=== PATIENT | male | born 1965 | race Caucasian/White ===

== ENCOUNTER 2018-09-26 12:32 | Outpatient (CLI) | payer MEDICARE, SELFPAY ==
[2018-09-26 13:09] LABS: Abs Immature Grans 0.05 k/cumm (0.0-0.09); Absolute Basophil Count 0.05 k/cumm (0.0-0.2); Absolute Eosinophil Count 0.26 k/cumm (0.0-0.7); Absolute Lymphocyte Count 1.08 k/cumm (1.2-3.4); Absolute Monocyte Count 0.95 k/cumm (0.11-0.7); Absolute Neutrophil Count 5.43 k/cumm (1.2-6.7); Basophils % 0.6; Eosinophils % 3.3; HCT 48.7 % (40.0-50.0); HGB 16.4 g/dL (13.5-17.5); Immature Grans % 0.6; Lymphocytes % 13.8; Mean Corp. HGB Concentration 33.7 g/dL (32.0-36.0); Mean Corpuscular Hemoglobin 30.9 pg (27.0-33.0); Mean Corpuscular Volume 91.9 fL (80-95); Mean Platelet Volume 10.6 fL (8.0-11.0); Monocytes % 12.1; Neutrophils % 69.6; Platelet Count 169 x1000/uL (130-400); RBC Distribution Width 13.5 % (11.8-14.1); White Blood Cell Count 7.82 k/cumm (4.4-10.8)
[2018-09-26 14:21] LABS: ALT 26 U/L (12-78); AST 16 U/L (15-37); Albumin 3.8 g/dL (3.4-5.0); Alkaline Phosphatase 95 U/L (46-116); Anion Gap 8.1 mmol/L (3-11); BUN 15 mg/dL (7-18); Bilirubin, Total 0.2 mg/dL (0.2-1.0); CO2 27.9 mmol/L (21.0-32.0); CREATININE 1.24 mg/dL (0.70-1.30); Calcium 9.1 mg/dL (8.5-10.1); Chloride 103 mmol/L (98-107); Cholesterol 213 mg/dL (50-200); Glucose 99 mg/dL (70-100); HDL Cholesterol 54 mg/dL (40-60); LDL CHOLESTEROL 144 mg/dL (<100); Potassium 5.5 mmol/L (3.5-5.1); Sodium 139 mmol/L (136-145); Total Protein 6.9 g/dL (6.4-8.2); Triglyceride 109 mg/dL (30-150)
== END 2018-09-26 12:52 ==
PROVIDERS: PCP Nurse Practitioner Family; Visit Provider Nurse Practitioner Family
DX: F32.1 Major depressive disorder, single episode, moderate (principal); Z79.899 Other long term (current) drug therapy; R53.81 Other malaise; R53.83 Other fatigue
CPT/HCPCS: 36415; 80053; 80061; 83721; 84443; 85025

== ENCOUNTER → 2018-09-27 11:56 | Outpatient (BNVA) | payer MEDICARE, SELFPAY | PROVIDERS: PCP Nurse Practitioner Family; Visit Provider Nurse Practitioner Family | DX: I42.9 Cardiomyopathy, unspecified (principal); Z45.018 Encounter for adjustment and management of other part of cardiac pacemaker; Z87.891 Personal history of nicotine dependence; J44.9 Chronic obstructive pulmonary disease, unspecified | CPT/HCPCS: 93289; 99214 ==

== ENCOUNTER 2018-10-31 21:27 | Outpatient (REF) | payer MEDICARE, SELFPAY ==
[2018-10-31 22:18] LABS: CREATININE 1.16 mg/dL (0.70-1.30)
== END 2018-10-31 21:47 ==
LOC: NCHCN 21:27
PROVIDERS: PCP Nurse Practitioner; Visit Provider Nurse Practitioner Family
DX: R69 Illness, unspecified (principal); Z13.89 Encounter for screening for other disorder
CPT/HCPCS: 82565

== ENCOUNTER 2018-11-02 00:40 | Outpatient (CLI) | payer MEDICARE, SELFPAY ==
--- NOTE | 2018-11-02 13:12 | DI.CT_ITS ---
SYMPTOM/DIAGNOSIS: COUGH R05 CHEST CT: CT scan of the chest was performed following the uneventful administration of intravenous contrast material. Comparison chest xray is 11/08/15. There is mild atherosclerosis of the thoracic aorta. No aneurysmal dilatation or dissection is seen. Heart size appears within normal limits. No significant pericardial effusion is seen. Pacing wires are in place. Coronary artery calcifications are present. No significant thoracic adenopathy is appreciated. There is no pleural effusion or pneumothorax present. Moderately severe emphysematous changes are seen in the lungs, particularly the apices. There is scarring seen in the lung bases. There is an area of consolidation in the left lingula. No pulmonary nodules are appreciated. Tracheobronchial tree is unremarkable. No acute abnormality is seen in the upper abdomen. Degenerative changes are seen in the spine. IMPRESSION: 1. Small area of consolidation involving the left lingula. This may represent atelectasis, scarring or pneumonia. 2. Moderately severe emphysematous changes in the lungs.
[2018-11-02] MEDS: Omnipaque 350 MG/ML 100 ML BTL IV (13:28)
== END 2018-11-02 01:00 ==
PROVIDERS: PCP Nurse Practitioner; Visit Provider Nurse Practitioner
DX: R05 Cough (principal); J18.9 Pneumonia, unspecified organism; J43.9 Emphysema, unspecified
CPT/HCPCS: 71260; J3490

== ENCOUNTER 2018-11-26 14:41 | Emergency (ER) | payer MEDICARE, SELFPAY ==
[2018-11-26] VITALS (16 sets, daily range): BP systolic 116–152; BP diastolic 68–88; PULSE 80–92; RESP 16–36; TEMP 36.7–37.2; O2SAT 91–95
[2018-11-26] MEDS: Normal Saline Flush 10 ML SYR IVP ×2 (15:28→18:05)
[2018-11-26] MEDS: Albuterol/Ipratropium 3 ML UPD VIAL (15:29)
[2018-11-26 15:53] LABS: Abs Immature Grans 0.03 k/cumm (0.0-0.09); Absolute Basophil Count 0.04 k/cumm (0.0-0.2); Absolute Eosinophil Count 0.15 k/cumm (0.0-0.7); Absolute Lymphocyte Count 1.03 k/cumm (1.2-3.4); Absolute Monocyte Count 0.71 k/cumm (0.11-0.7); Absolute Neutrophil Count 4.06 k/cumm (1.2-6.7); Basophils % 0.7; Eosinophils % 2.5; HCT 47.7 % (40.0-50.0); HGB 16.3 g/dL (13.5-17.5); Immature Grans % 0.5; Lymphocytes % 17.1; Mean Corp. HGB Concentration 34.2 g/dL (32.0-36.0); Mean Corpuscular Hemoglobin 31.5 pg (27.0-33.0); Mean Corpuscular Volume 92.1 fL (80-95); Monocytes % 11.8; Neutrophils % 67.4; Platelet Count 145 x1000/uL (130-400); RBC 5.18 m/cumm (4.50-6.00); RBC Distribution Width 13.7 % (11.8-14.1); White Blood Cell Count 6.02 k/cumm (4.4-10.8)
[2018-11-26 16:07] LABS: ALT 33 U/L (12-78); AST 21 U/L (15-37); Albumin 3.8 g/dL (3.4-5.0); Alkaline Phosphatase 83 U/L (46-116); Anion Gap 7.1 mmol/L (3-11); BUN 14 mg/dL (7-18); Bilirubin, Total 0.2 mg/dL (0.2-1.0); CO2 28.9 mmol/L (21.0-32.0); CREATININE 1.23 mg/dL (0.70-1.30); Calcium 9.3 mg/dL (8.5-10.1); Chloride 102 mmol/L (98-107); Glucose 97 mg/dL (70-100); Potassium 4.8 mmol/L (3.5-5.1); Sodium 138 mmol/L (136-145); Total Protein 7.5 g/dL (6.4-8.2)
[2018-11-26 16:09] LABS: Troponin I < 0.02 ng/mL (0.00-0.06)
[2018-11-26 16:23] LABS: D-Dimer 318 ng/mlFEU (<500)
--- NOTE | 2018-11-26 16:27 | DI.CT_ITS ---
SYMPTOM/DIAGNOSIS: RESISTANT CRACKLES, SOB, CHEST PAIN, ? PE PE CHEST CT: CT angiography was performed with multi slice acquisition and multi planar and 3D reconstruction. Comparison is made with 11/02/18. The aorta and pulmonary arteries are well opacified with IV contrast and no pulmonary artery filling defects are seen. The lungs are clear with the exception of a small focus of atelectasis in the lingula, unchanged. A pacemaker is again noted. The heart size appears normal. The visualized portions of the upper abdomen are unremarkable. IMPRESSION: No evidence of pulmonary emboli or other acute abnormality. Stable atelectasis of the lingula.
[2018-11-26] MEDS: Omnipaque 350 MG/ML 100 ML BTL IJ (16:43)
--- NOTE | 2018-11-26 17:21 | DI.VRAD_ITS ---
EXAM: CT Angiography Chest With Contrast EXAM DATE/TIME: 11/26/2018 4:30 PM CLINICAL HISTORY: 52 years old, male; Signs and symptoms; Other: Resistant crackles 4 weeks SOB; Prior surgery; Surgery date: 6+ months TECHNIQUE: Axial computed tomographic angiography images of the chest with intravenous contrast using CT angiography protocol. All CT scans at this facility use at least one of these dose optimization techniques: automated exposure control; mA and/or kV adjustment per patient size (includes targeted exams where dose is matched to clinical indication); or iterative reconstruction. Coronal and sagittal reformatted images were created and reviewed. 3D reconstructed images were created and reviewed. CONTRAST: 100 ml of omnipaque administered intravenously. COMPARISON: CT Thorax^CHEST W ROUTINE (Adult) 11/02/2018 12:59 PM FINDINGS: No evidence of pulmonary embolism. There is emphysema with bullous changes in the apices. There is a stable focus of consolidation in the lingula. No pleural effusion or pneumothorax. Normal thoracic aorta. A pacemaker is present. The visualized abdominal structures are unremarkable. No fracture. IMPRESSION: 1. No evidence of pulmonary embolism. 2. Stable consolidation in the lingula. Dictated and Authenticated by: Raoul Iglesias MD. Ordering:DAMIAN Villeda MD
--- NOTE | 2018-11-26 17:31 | ED.GENADUL_ITS ---
Discharge Plan Disposition Patient Disposition: HOME Condition: Good Discharge Details Chief Complaint: SOB Clinical Impression: Community acquired pneumonia Primary Care Provider: Fátima Thomas ED Provider: Ronal Recinos Home Meds and New Rx's Prescriptions: New Combivent Respimat 20-100 mcg/actuation mist 1 puff IH Q6H Qty: 4 RF: 0 azithromycin 250 mg tablet See Rx Instructions .ROUTE .COMPLEX Qty: 6 RF: 0 amoxicillin-pot clavulanate 875-125 mg tablet 1 tab PO BID Qty: 20 RF: 0 prednisone 50 MG tablet 50 mg PO DAILY Qty: 5 RF: 0 No Action furosemide 20 mg tablet 20 mg PO .COMPLEX Qty: 0 RF: 1 Advair Diskus 1 EACH blister with device 1 puff Inhalation BID RF: 0 clonazepam [Klonopin] 0.5 MG tablet 1 mg PO PRN RF: 0 buspirone 7.5 MG tablet 7.5 mg PO RF: 0 prazosin 2 MG capsule 1 mg PO DAILY RF: 0 bupropion HCl [Wellbutrin XL] 300 MG tablet extended release 24 hr 300 mg PO DAILY RF: 0 hydrocodone-acetaminophen [Vicodin] 1 EACH tablet 1 ea PO QID RF: 0 ProAir HFA 8.5 GM HFA aerosol inhaler 1 - 2 puff Inhalation Q4H PRN RF: 0 Combivent Respimat 4 GM mist 4 gm Inhalation Q4H PRN Qty: 1 RF: 5 nitroglycerin 0.4 MG tablet, sublingual 0.4 mg Sublingual one every 5 mins. x3 Qty: 30 RF: 3 lisinopril 10 MG tablet 10 mg PO DAILY Qty: 90 RF: 3 Metoprolol Succinate 25 MG TAB.ER.24H 25 mg PO DAILY Qty: 90 RF: 3 spironolactone 25 mg tablet 12.5 mg PO DAILY Qty: 90 RF: 4 quetiapine [Seroquel] 300 mg tablet 800 mg PO DAILY RF: 0 Discharge Instructions Instructions: Community Acquired Pneumonia (ED) Additional Instructions: Please take the antibiotic as directed. Please take your inhaler as directed. Please take the steroid as directed. If you notice any worsening of your symptoms, or any new symptoms such as vomiting, diarrhea, fever, chills, shortness of breath, chest pain, numbness, weakness, or fainting , please return immediately to the emergency department for reevaluation. Please follow up with your primary care provider as soon as possible for reassessment and reevaluation. As always, it was a pleasure participating in your medical care today. Referrals: Fátima Thomas [Primary Care Provider] - Discharge Data Discharge Date/Time-TO BE ENTERED AT DEPARTURE: 11/26/18 19:13 Medical Decision Making This is a 52-year-old male with a past medical history of COPD, pacemaker for cardiomyopathy, and tobacco abuse, who presents today for evaluation of persistent cough for the last 2-3 weeks. He had a course of antibiotics for 7 days during the initial onset of his symptoms, he has been without antibiotics for over a week. Unfortunately his symptoms have persisted and not improved. No significant worsening. He is also run out of his Combivent inhaler, and he feels this may be contributing to it. His cough is productive with clear sputum. He has no severe pleuritic chest pain or exertional chest pain. Physical exam demonstrates notable crackles in the left upper lung chand. He was on doxycycline for 7 days as confirmed by his pharmacy. Differential includes persistent pneumonia, versus much less likely PE, aortic dissection, or cardiac disease. CT angiogram was ordered and demonstrates notable bleb in the left upper lung, however this is consistent with prior CT imaging. No evidence of PE, and stable consolidation in the lingula. No improvement from prior CT which he had on his initial symptom onset. Laboratory workup demonstrates no significant elevated white count, no bandemia, normal electrolytes normal renal function negative troponin. EKG shows no acute abnormalities or changes. Patient's initial oxygen status was normal, in the mid 90s, he is currently 95% on room air, ambulatory pulse ox demonstrated no hypoxemia or tachycardia. Lowest pulse ox got down to 94 with notable ambulation. I did reassess the patient, he states that he feels very good and would like to go home, and on his clinical picture I see no indication at this time for admission. With the persistent pneumonia, I feel he would benefit from broadened antibiotic coverage, but I do not think he requires IV antibiotics at this time or admission. With his history of COPD, his current steroid use, we will avoid Levaquin. We will give Augmentin with azithromycin for treatment of community-acquired pneumonia. Patient will be discharged home with close follow-up with his primary care provider. We discussed red flags which return. I have extensively reviewed the treatment plan and discharge instructions with the patient. I have addressed all patient concerns at this time. The patient was made aware of what symptoms to monitor for that would warrant a return to the emergency department. Discussed the plan with the patient, they demonstrate verbal understanding and agreement with our assessment and plan at this time. EKG 14: 55 Rate 90, AR 142, QTc 440, QRS 120, ventricular pacing with good capture, no significant ST abnormalities. No significant changes from prior EKGs. COMPARISON: CT Thorax^CHEST W ROUTINE (Adult) 11/02/2018 12:59 PM FINDINGS: No evidence of pulmonary embolism. There is emphysema with bullous changes in the apices. There is a stable focus of consolidation in the lingula. No pleural effusion or pneumothorax. Normal thoracic aorta. A pacemaker is present. The visualized abdominal structures are unremarkable. No fracture. IMPRESSION: 1. No evidence of pulmonary embolism. 2. Stable consolidation in the lingula. Dictated and Authenticated by: Raoul Iglesias MD. HPI General Date/Time Provider Initiated Documentation: 11/26/18 15:25 . HPI Narrative: This is a 52-year-old male with past medical history of severe COPD, pacemaker, negative cardiac catheterization 5 years ago, tobacco use which he quit over a year ago. He presents today for evaluation of cough and shortness of breath. Patient states that 2-3 weeks ago he was seen and assessed by his PCP at which time they did a CT scan which showed infiltrate, as well as a large bleb, but no other significant abnormalities. He was started on antibiotic of which name he does not recall, and took that as directed. He took that for 7 days, and had no improvement of his symptoms. He continues to cough and has some clear sputum. He denies any fevers or chills. Last night he did have one small episode of chest pain while he was sitting. It was nonexertional. No radiation to the neck or arms. It was nonpleuritic. It abated on its own. He currently has no symptoms of chest pain. With discontinuation of cough, he was concerned that he was talking better and came in for further evaluation. Patient also does admit that he ran out of his Combivent within the last 2 days, and he feels that this is also not been helping his clinical scenario. Patient did have a cardiac catheterization 5 years ago and it showed no significant lesions at that time. He did see his [facility] [facility] operator within the last month and a half, and was discharged after benign interrogation. Patient denies any other past medical history. He denies any history of ischemic cardiac disease. He has no other complaints at this time. Denies PE risk factors such as recent long car rides, immobilization, recent surgery, prior history of DVT or PE, family history of PE or DVT, morbid obesity, exogenous estrogen and smoking, hemoptysis, history of cancer. Related Data Home Medications Medication Instructions Recorded Confirmed bupropion HCl [Wellbutrin Xl] 300 mg PO DAILY tab-cap 03/06/15 11/26/18 buspirone 7.5 mg PO 03/06/15 09/27/18 clonazepam [Klonopin] 1 mg PO PRN tab-cap 03/06/15 11/26/18 fluticasone-salmeterol [Advair 1 puff INHALATION BID disk 03/06/15 11/26/18 250/50 Diskus] hydrocodone-acetaminophen [Vicodin 1 ea PO QID 03/06/15 11/26/18 5-300 Mg Tablet] prazosin 1 mg PO DAILY tab-cap 03/06/15 11/26/18 albuterol sulfate [Proair Hfa] 1 - 2 puff INHALATION Q4H PRN 09/27/15 11/26/18 inhaler ipratropium-albuterol [Combivent 4 gm INHALATION Q4H PRN #1 inhaler 12/19/15 11/26/18 Respimat Inhaler] nitroglycerin 0.4 mg SUBLINGUAL one every 5 07/27/17 11/26/18 mins. x3 #30 tab-cap lisinopril 10 mg PO DAILY #90 tab-cap 11/24/17 11/26/18 spironolactone 25 mg tablet 12.5 mg PO DAILY #90 tab-cap 09/20/18 11/26/18 furosemide 20 mg tablet 20 mg PO .COMPLEX #0 tab 09/27/18 11/26/18 quetiapine 300 mg tablet 800 mg PO DAILY tab-cap 09/27/18 11/26/18 amoxicillin-pot clavulanate 1 tab PO BID #20 tab 11/26/18 azithromycin See Rx Instructions .ROUTE 11/26/18 .COMPLEX #6 tab ipratropium-albuterol [Combivent 1 puff IH Q6H #4 gm 11/26/18 Respimat] prednisone 50 mg PO DAILY #5 tab 11/26/18 Previous Rx's Medication Instructions Recorded nitroglycerin 0.4 mg SUBLINGUAL one every 5 07/27/17 mins. x3 #30 tab-cap lisinopril 10 mg PO DAILY #90 tab-cap 11/24/17 spironolactone 25 mg tablet 12.5 mg PO DAILY #90 tab-cap 09/20/18 furosemide 20 mg tablet 20 mg PO .COMPLEX #0 tab 09/27/18 amoxicillin-pot clavulanate 1 tab PO BID #20 tab 11/26/18 azithromycin See Rx Instructions .ROUTE 11/26/18 .COMPLEX #6 tab ipratropium-albuterol [Combivent 1 puff IH Q6H #4 gm 11/26/18 Respimat] prednisone 50 mg PO DAILY #5 tab 11/26/18 Allergies Allergy/AdvReac Type Severity Reaction Status Date / Time citalopram Allergy Unverified 11/26/18 17:05 oxycodone HCl [From Percocet] AdvReac Addiction Unverified 11/26/18 17:05 General Stated Complaint: SOB MOLLY: 3 Review of Systems Review of Systems All systems reviewed & are unremarkable except as noted in HPI and below PFSH Social History Smoking/Tobacco Use Status: Former Tobacco Use Exam Narrative Exam Narrative: 1.Const: Well-nourished, Well-developed, appearing stated age 2.Eyes: PERRL, no conjunctival injection, and symmetrical lids. 3.ENT: Atraumatic external nose and ears. Moist MM. Neck: Symmetric, trachea midline, No thyromegaly. 4.CVS: +S1/S2, No murmurs or gallops. Peripheral pulses 2+ and equal in all extremities. Brisk capillary refill in all extremities. 5.RESP: The patient's lungs demonstrate notable crackles in the left upper lung chand. No wheezes, no significant rhonchi. No reduced breath sounds. 6.GI: Soft, Nontender/Nondistended, No hepatosplenomegaly. No guarding or rebound. 7.MSK: Normocephalic/Atraumatic, Extremities w/o deformity or ttp No cyanosis or clubbing, Normal movement of all extremities 8.Skin: Warm, Dry. No rashes or lesions. 9.Neuro: metal sprayer II-XII grossly intact. Sensation grossly intact, no focal neurologic deficits. 10.Psych: (AAO) x3. Appropriate mood and affect Course Vital Signs Respiratory Rate 20 11/26/18 14:45 Temperature 37.2 C 11/26/18 15:20 Temperature Source Temporal Artery Scan 11/26/18 15:20 Pulse 80 11/26/18 16:16 Pulse 86 11/26/18 15:31 Respiratory Rate 36 H 11/26/18 15:40 Respiratory Effort 11/26/18 14:47 Blood Pressure 124/73 11/26/18 16:16 Blood Pressure Mean 82 11/26/18 16:16 Blood Pressure Position Sitting 11/26/18 14:47 Pulse Oximetry 92 L 11/26/18 16:20 Oxygen Delivery Method Room Air 11/26/18 15:20 Oxygen Flow Rate 0 11/26/18 15:20 Pain Level 0 11/26/18 15:20 Lab/Test Results Lab/Test Results: Laboratory Tests Range/Units 11/26/18 11/26/18 11/26/18 15:05 15:05 15:05 WBC (4.4-10.8) k/cumm 6.02 RBC (4.50-6.00) m/cumm 5.18 Hgb (13.5-17.5) g/dL 16.3 Hct (40.0-50.0) % 47.7 MCV (80-95) fL 92.1 MCH (27.0-33.0) pg 31.5 MCHC (32.0-36.0) g/dL 34.2 RDW (11.8-14.1) % 13.7 Plt Count (130-400) x1000/uL 145 MPV (8.0-11.0) fL 11.0 Immature Gran % 0.5 Neutrophils % 67.4 Lymphocytes % 17.1 Monocytes % 11.8 Eosinophils % 2.5 Basophils % 0.7 Absolute Neutrophils (1.2-6.7) k/cumm 4.06 Absolute Lymphocytes (1.2-3.4) k/cumm 1.03 L Absolute Monocytes (0.11-0.7) k/cumm 0.71 H Absolute Eosinophils (0.0-0.7) k/cumm 0.15 Absolute Basophils (0.0-0.2) k/cumm 0.04 D-Dimer (<500) ng/mlFEU 318 Sodium (136-145) mmol/L 138 Potassium (3.5-5.1) mmol/L 4.8 Chloride (98-107) mmol/L 102 Carbon Dioxide (21.0-32.0) mmol/L 28.9 Anion Gap (3-11) mmol/L 7.1 BUN (7-18) mg/dL 14 Creatinine (0.70-1.30) mg/dL 1.23 Estimated GFR/1.73 m2 (mL/min/1.73m2) >= 60.00 Glucose (70-100) mg/dL 97 Calcium (8.5-10.1) mg/dL 9.3 Total Bilirubin (0.2-1.0) mg/dL 0.2 AST (15-37) U/L 21 ALT (12-78) U/L 33 Alkaline Phosphatase (46-116) U/L 83 Troponin I (0.00-0.06) ng/mL < 0.02 Total Protein (6.4-8.2) g/dL 7.5 Albumin (3.4-5.0) g/dL 3.8 Range/Units 11/26/18 15:05 WBC (4.4-10.8) k/cumm Cancelled RBC (4.50-6.00) m/cumm Cancelled Hgb (13.5-17.5) g/dL Cancelled Hct (40.0-50.0) % Cancelled MCV (80-95) fL Cancelled MCH (27.0-33.0) pg Cancelled MCHC (32.0-36.0) g/dL Cancelled RDW (11.8-14.1) % Cancelled Plt Count (130-400) x1000/uL Cancelled MPV (8.0-11.0) fL Cancelled Immature Gran % Neutrophils % Lymphocytes % Monocytes % Eosinophils % Basophils % Absolute Neutrophils (1.2-6.7) k/cumm Absolute Lymphocytes (1.2-3.4) k/cumm Absolute Monocytes (0.11-0.7) k/cumm Absolute Eosinophils (0.0-0.7) k/cumm Absolute Basophils (0.0-0.2) k/cumm D-Dimer (<500) ng/mlFEU Sodium (136-145) mmol/L Potassium (3.5-5.1) mmol/L Chloride (98-107) mmol/L Carbon Dioxide (21.0-32.0) mmol/L Anion Gap (3-11) mmol/L BUN (7-18) mg/dL Creatinine (0.70-1.30) mg/dL Estimated GFR/1.73 m2 (mL/min/1.73m2) Glucose (70-100) mg/dL Calcium (8.5-10.1) mg/dL Total Bilirubin (0.2-1.0) mg/dL AST (15-37) U/L ALT (12-78) U/L Alkaline Phosphatase (46-116) U/L Troponin I (0.00-0.06) ng/mL Total Protein (6.4-8.2) g/dL Albumin (3.4-5.0) g/dL
--- NOTE | 2018-11-26 17:31 | NUR.NOTE ---
pt up and walked in the er 100 ft and sat on RA 93% and er doctor notified Nursing Note:
[2018-11-26] MEDS: Albuterol HFA 8 GM 60 PUFF INH IH (18:04)
[2018-11-26] MEDS: Azithromycin 250 MG TAB 500 MG PO (18:05)
[2018-11-26] MEDS: Amoxicillin 875/Clav. 125 TAB PO (18:05)
[2018-11-26] MEDS: Inhaler, Assist Device 1 EACH MC (18:08)
[2018-11-26 18:16] LABS: Troponin I < 0.02 ng/mL (0.00-0.06)
== END 2018-11-26 19:13 | disposition home or self-care (01) ==
PROVIDERS: Student in an Organized Health Care Education/Training Program; Emergency Provider Student in an Organized Health Care Education/Training Program; PCP Nurse Practitioner
DX: J18.9 Pneumonia, unspecified organism (principal); J44.9 Chronic obstructive pulmonary disease, unspecified; F17.210 Nicotine dependence, cigarettes, uncomplicated; Z95.0 Presence of cardiac pacemaker
CPT/HCPCS: 36415; 71275; 80053; 85027; 93005; 94640; 99285; 84484; 85025; 85379; 93010; J3490; J7512; J7620

== ENCOUNTER 2018-12-26 21:10 | Outpatient (REF) | payer MEDICARE, SELFPAY ==
[2018-12-26 22:12] LABS: Cholesterol 202 mg/dL (50-200); HDL Cholesterol 47 mg/dL (40-60); LDL CHOLESTEROL 123 mg/dL (<100); Triglyceride 140 mg/dL (30-150)
== END 2018-12-26 21:30 ==
LOC: NCHCN 21:10
PROVIDERS: PCP Nurse Practitioner; Visit Provider Nurse Practitioner
DX: E78.5 Hyperlipidemia, unspecified (principal)
CPT/HCPCS: 80061; 83721

== ENCOUNTER → 2019-04-28 12:43 | Outpatient (BNVA) | payer MEDICARE, SELFPAY | PROVIDERS: PCP Nurse Practitioner Family; Visit Provider Internal Medicine Cardiovascular Disease | DX: I50.42 Chronic combined systolic (congestive) and diastolic (congestive) heart failure (principal); J44.9 Chronic obstructive pulmonary disease, unspecified; I44.7 Left bundle-branch block, unspecified; I42.0 Dilated cardiomyopathy; Z87.891 Personal history of nicotine dependence; Z45.02 Encounter for adjustment and management of automatic implantable cardiac defibrillator | CPT/HCPCS: 93283; 99214 ==

== ENCOUNTER → 2019-07-06 13:20 | Outpatient (BNVA) | payer MEDICARE, SELFPAY | PROVIDERS: PCP Nurse Practitioner Family; Visit Provider Internal Medicine Cardiovascular Disease | DX: I42.0 Dilated cardiomyopathy (principal); Z45.02 Encounter for adjustment and management of automatic implantable cardiac defibrillator; I44.7 Left bundle-branch block, unspecified; I50.42 Chronic combined systolic (congestive) and diastolic (congestive) heart failure; J44.9 Chronic obstructive pulmonary disease, unspecified; Z87.891 Personal history of nicotine dependence | CPT/HCPCS: 93284; 99214 ==

== ENCOUNTER 2019-07-09 10:40 | Inpatient (IN) | payer MEDICARE, SELFPAY ==
[2019-07-09] VITALS (32 sets, daily range): BP systolic 102–170; BP diastolic 69–90; PULSE 83–110; RESP 1–42; TEMP 36.8–38.3; O2SAT 88–99
--- NOTE | 2019-07-09 11:01 | ED.GENADUL_ITS ---
Discharge Plan Disposition Patient Disposition: [facility] INPATIENT Condition: Improving Discharge Details Chief Complaint: SOB Clinical Impression: Acute exacerbation of chronic obstructive pulmonary disease (COPD), PNA (pneumonia) Admit Date/Time: 07/09/19 12:33 Admit Provider: Jeramie Qureshi Attending Provider: Jeramie Qureshi Primary Care Provider: Lorrie Crespo ED Provider: Erik Grace Discharge Data Discharge Date/Time-TO BE ENTERED AT DEPARTURE: 07/09/19 13:00 Medical Decision Making 11:05 --53-year-old male with history of severe chronic COPD, nonischemic dilated cardiomyopathy, status post ICD placement, CHF, here with shortness of breath worsening over the past 3 days, associated pleuritic chest discomfort and cough. Recent medication noncompliance is unable to afford his Combivent. ECG reviewed and interpreted by me: Ventricularly paced, tachycardic 102, no STEMI. Suspect acute COPD exacerbation worsened by not having his medication, consider CHF. Respiratory therapy has been consulted and will evaluate patient. 12:09 -- Labs reviewed and nondiagnostic. BNP normal. Chest x-ray reviewed and interpreted by me: No definitive consolidation. Patient reassessed and is moving more air but still with wheeze despite 3 duo nebs and Solu-Medrol. Patient notes that lung still feel heavy. Will treat with doxycycline for COPD exacerbation. Plan to admit for further treatment of acute COPD exacerbation. Patient does have multiple social issues that will need to be addressed by care management including inability to obtain prescribed medications. 12:25 -- Chest x-ray interpreted by radiology: IMPRESSION: Mild opacity in the right base may represent atelectasis or pneumonia. Low I will send blood cultures and lactate. I called and spoke with Dr. Qureshi who will admit the patient for COPD exacerbation and possible pneumonia. HPI General Mode of arrival: ambulatory . Date/Time Provider Initiated Documentation: 07/09/19 10:48 . Limitations to Documentation: no limitations . Information obtained by: patient . HPI Narrative: 53-year-old male with history of severe COPD, CHF and nonischemic dilated cardiomyopathy status post ICD placement, here with chief complaint of shortness of breath. Patient notes progressive, worsening, now severe shortness of breath over the past few days. Symptoms are constant. No modifiers. He notes that he ran out of his Combivent inhaler a few days ago and has not been able to refill secondary to cost. He has associated pleuritic chest discomfort. He denies associated leg swelling or calf pain. He has had recent cough that is more excessive than usual. Related Data Home Medications Medication Instructions Recorded Confirmed bupropion HCl [Wellbutrin XL] 300 mg PO DAILY tab-cap 03/06/15 07/09/19 clonazepam [Klonopin] 1 mg PO PRN tab-cap 03/06/15 07/09/19 fluticasone propion-salmeterol 1 puff INHALATION BID disk 03/06/15 07/09/19 [Advair Diskus] hydrocodone-acetaminophen [Vicodin] 1 ea PO QID 03/06/15 07/09/19 prazosin 1 mg PO DAILY tab-cap 03/06/15 07/09/19 albuterol sulfate [ProAir HFA] 1 - 2 puff INHALATION Q4H PRN 09/27/15 07/09/19 inhaler nitroglycerin 0.4 mg SUBLINGUAL one every 5 07/27/17 07/09/19 mins. x3 #30 tab-cap spironolactone 25 mg tablet 12.5 mg PO DAILY #90 tab-cap 09/20/18 07/09/19 quetiapine 300 mg tablet 800 mg PO DAILY tab-cap 09/27/18 07/09/19 Combivent Respimat 1 puff IH Q6H #4 gm 11/26/18 07/09/19 furosemide 20 mg tablet 20 mg PO DAILY 30 Days #40 tab 04/28/19 07/09/19 lisinopril 10 mg tablet 10 mg PO DAILY #90 tab-cap 05/03/19 07/09/19 metoprolol succinate 25 mg 25 mg PO DAILY #90 tab 05/03/19 07/09/19 tablet,extended release 24 hr cefpodoxime 200 mg PO BID #10 tab 07/10/19 doxycycline hyclate 100 mg PO BID #10 cap 07/10/19 ipratropium-albuterol 3 ml UPD Q4H PRN #1 packet 07/10/19 prednisone 10 mg PO BID #45 tab 07/10/19 Previous Rx's Medication Instructions Recorded nitroglycerin 0.4 mg SUBLINGUAL one every 5 07/27/17 mins. x3 #30 tab-cap spironolactone 25 mg tablet 12.5 mg PO DAILY #90 tab-cap 09/20/18 Combivent Respimat 1 puff IH Q6H #4 gm 11/26/18 furosemide 20 mg tablet 20 mg PO DAILY 30 Days #40 tab 04/28/19 lisinopril 10 mg tablet 10 mg PO DAILY #90 tab-cap 05/03/19 metoprolol succinate 25 mg 25 mg PO DAILY #90 tab 05/03/19 tablet,extended release 24 hr cefpodoxime 200 mg PO BID #10 tab 07/10/19 doxycycline hyclate 100 mg PO BID #10 cap 07/10/19 ipratropium-albuterol 3 ml UPD Q4H PRN #1 packet 07/10/19 prednisone 10 mg PO BID #45 tab 07/10/19 Allergies Allergy/AdvReac Type Severity Reaction Status Date / Time citalopram Allergy Unverified 07/09/19 11:46 oxycodone HCl [From Percocet] AdvReac Addiction Unverified 07/09/19 11:46 General Stated Complaint: SOB MOLLY: 3 Review of Systems Review of Systems ROS Unobtainable: All systems reviewed & are unremarkable except as noted in HPI and below Constitutional Constitutional: Denies fever(s) Cardiovascular Cardiovascular: Reports chest pain, Denies syncope, Denies pedal edema and Reports dyspnea Respiratory Respiratory: Reports as per HPI and Reports dyspnea Neurologic Neurologic: Denies syncope [facility] Medical History Biventricular implantable cardioverter-defibrillator (ICD) in situ (Chronic) History of alcohol abuse (Resolved) History of tobacco abuse (Resolved) LBBB (left bundle branch block) (Chronic) Nonischemic dilated cardiomyopathy (Chronic) Severe chronic obstructive pulmonary disease (Chronic) Systolic and diastolic CHF, chronic (Chronic) Social History Smoking/Tobacco Use Status: Former Tobacco Use Quit Date: 10/25/15 Pack-years: 120 Alcohol Intake: former Drug use: Never Do you feel safe in your relationship?: Yes Exam Const General: cooperative and acute distress mild (respiratory) HENMT Mouth: moist mucous membranes Eyes Conjunctivae: normal conjunctivae Sclera: normal sclerae Neck Neck: trachea midline and supple Resp Effort & Inspection: no cough and tachypneic Auscultation: diminished lung sounds, no rales and wheezes Cardio Jugular venous pressure: no JVD Rate: tachycardic Rhythm: regular rhythm Heart Sounds: no gallops, no murmurs and no rubs GI Palpation: soft, not firm, no guarding, no masses, not rigid and nontender Skin General skin exam: no rashes or lesions noted and other (warm, no cyanosis) Neuro General: alert, awake, oriented x3 and tone normal Extrem General: no calf tenderness and no edema Psych Appearance: grossly normal Affect: blunted Course Vital Signs Vital signs: Vital Signs Temperature 36.8 C 07/09/19 10:44 Pulse 104 H 07/09/19 10:44 Respiratory Rate 20 07/09/19 10:44 Blood Pressure 140/84 07/09/19 10:44 Pulse Oximetry 94 L 07/09/19 10:44 Temperature 36.8 C 07/09/19 10:44 Temperature Source Skin 07/09/19 10:44 Pulse 104 H 07/09/19 10:44 Respiratory Rate 38 H 07/09/19 10:50 Respiratory Effort Labored 07/09/19 10:50 Respiratory Depth Normal 07/09/19 10:50 Respiratory Pattern Normal 07/09/19 10:50 Blood Pressure 140/84 07/09/19 10:44 Blood Pressure Position Sitting 07/09/19 10:44 Pulse Oximetry 94 L 07/09/19 10:44 Oxygen Delivery Method Room Air 07/09/19 10:44 Oxygen Flow Rate 0 07/09/19 10:44 Pain Level 7 07/09/19 10:44 Critical Care Time Critical Care Time Critical Care Time: Yes Total Critical Care Time: 40 Attestation: I spent greater than 40min addressing this patient's immediate life threats
[2019-07-09] MEDS: Albuterol/Ipratropium 3 ML UPD VIAL UPD ×4 (11:04→21:18)
[2019-07-09] MEDS: methylPREDNISolone SUCC 125 MG VIAL IVP (11:12)
[2019-07-09 11:13] LABS: Abs Immature Grans 0.04 k/cumm (0.0-0.09); Absolute Basophil Count 0.05 k/cumm (0.0-0.2); Absolute Eosinophil Count 0.11 k/cumm (0.0-0.7); Absolute Monocyte Count 0.85 k/cumm (0.11-0.7); Absolute Neutrophil Count 5.72 k/cumm (1.2-6.7); Basophils % 0.6; Eosinophils % 1.4; Immature Grans % 0.5; Lymphocytes % 15.1; Mean Corp. HGB Concentration 34.2 g/dL (32.0-36.0); Mean Corpuscular Hemoglobin 31.2 pg (27.0-33.0); Mean Corpuscular Volume 91.3 fL (80-95); Mean Platelet Volume 11.2 fL (8.0-11.0); Monocytes % 10.7; Neutrophils % 71.7; Platelet Count 200 x1000/uL (130-400); RBC 6.09 m/cumm (4.50-6.00); RBC Distribution Width 13.9 % (11.8-14.1); White Blood Cell Count 7.97 k/cumm (4.4-10.8)
[2019-07-09] MEDS: Normal Saline Flush 10 ML SYR IVP ×3 (11:20→19:37)
[2019-07-09 11:22] LABS: HCT 55.6 % (40.0-50.0)
[2019-07-09 11:32] LABS: ALT 27 U/L (16-63); AST 17 U/L (15-37); Albumin 4.3 g/dL (3.4-5.0); Alkaline Phosphatase 113 U/L (46-116); Anion Gap 7.9 mmol/L (3-11); BUN 10 mg/dL (7-18); Bilirubin, Total 0.6 mg/dL (0.2-1.0); CO2 30.1 mmol/L (21.0-32.0); CREATININE 1.16 mg/dL (0.70-1.30); Calcium 9.6 mg/dL (8.5-10.1); Chloride 100 mmol/L (98-107); Glucose 116 mg/dL (70-100); Magnesium 2.2 mg/dL (1.8-2.4); NT-proBNP 41 pg/mL; Potassium 4.6 mmol/L (3.5-5.1); Sodium 138 mmol/L (136-145); Total Protein 8.5 g/dL (6.4-8.2)
[2019-07-09 11:33] LABS: Troponin I < 0.05 ng/mL (0.00-0.06)
--- NOTE | 2019-07-09 11:37 | DI.RAD_ITS ---
SYMPTOM/DIAGNOSIS: COUGH, SOB PA AND LATERAL CHEST: Pacing wires are in stable position when compared with previous images. There is no definite infiltrate in the lungs. There is no pleural effusion or pneumothorax. The heart is within normal limits in size. No acute bony abnormality is seen. IMPRESSION: No evidence of acute cardiopulmonary disease.
--- NOTE | 2019-07-09 12:00 | DI.VRAD_ITS ---
EXAM: XR Chest, 2 Views EXAM DATE/TIME: 07/09/2019 11:01 AM CLINICAL HISTORY: 53 years old, male; Cough and shortness of breath TECHNIQUE: Imaging protocol: XR of the chest Views: 2 views. COMPARISON: CR CHEST 2 VIEWS PA,LAT 11/08/2015 12:58 PM FINDINGS: Tubes, catheters and devices: Transvenous pacemaker leads are stable Lungs: Mild opacity in the right base may represent atelectasis or pneumonia. Pleural space: Unremarkable. No pleural effusion. No pneumothorax. Heart/Mediastinum: Stable cardiac silhouette thank you Bones/joints: Unremarkable. IMPRESSION: Mild opacity in the right base may represent atelectasis or pneumonia. Low Dictated and Authenticated by: Deepthi Raymundo MD. Ordering:JOSLYN Valencia MD
--- NOTE | 2019-07-09 12:11 | RESPIRATORY ---
07/09/2019-Pt here as he ran out of nebulizers , neb cups and combivent over three days ago.Pt was given three back to back duonebs via aerogen nebulizer. Pre B/S diminished throughout with wheeze and crackles on lower right. Post B/S exp wheeze with lower right crackles. Vibrapep acapella initiated . Pt utilizing currently.
[2019-07-09] MEDS: Doxycycline Hyclate 100 MG CAP PO (12:18)
--- NOTE | 2019-07-09 12:56 | W.PM.HP.N ---
Date of service: 07/09/19 Time of Service: 12:56 Assessment and Plan Assessment and plan (1) Dyspnea: Status: Acute Assessment and plan: Likely on the basis of an acute COPD exacerbation in the setting of a potential pulmonary infection. - Start coverage for CAP with Ceftriaxone and Doxycycline. - Obtain blood and sputum cultures, and check lactate. - Initiate IV Steroids, aggressive nebs, and inhaler therapy. Gentle IVFs. Patient with a history of CHF, LVEF normalized and with a normal BNP - doubt CHF. (2) Severe chronic obstructive pulmonary disease: Status: Chronic Assessment and plan: Treatment as above. (3) Nonischemic dilated cardiomyopathy: Status: Chronic Assessment and plan: History of non-ischemic CMP, LVEF improved from 20% to 55% by last ECHO 10/2017, s/p AICD BiV PPM. Currently appears mildly dry. - Continue TEOFILO-I, BB, and Spironolactone with hold parameters. Also on daily Furosemide. Monitor volume status, daily weights, and ensure low sodium diet. (4) COPD (chronic obstructive pulmonary disease): Status: Chronic Assessment and plan: Treatment as above. (5) DVT prophylaxis: Status: Acute Assessment and plan: SC Enoxaparin. History of Present Illness History of Present Illness Chief Complaint: Dyspnea Narrative: 53 year old man with a prior history of tobacco abuse and COPD, being admitted from [facility] Emergency Department with a diagnosis of COPD exacerbation and potential Pneumonia. Mr. Gay has a Past Medical History significant for Severe COPD, and prior tobacco and alcohol abuse now in remission. He was diagnosed with a severe NICMP, with an intial LVEF of 20% and evidence of dilated cardiomyopathy, potentially on the basis of EtOH abuse, s/p AICD with a BiV PPM placed at [facility] in September of 2014. His last ECHO on October 2017 showed a normalized LVEF at 55%. He also has a significant psychiatric history with PTSD, Chronic panic attacks, agoraphobia, depression, and anxiety, and reportedly on disability as a result of this. The patient presented to the ED with reported 2 day history of worsening dyspnea, cough, sputum production, and wheezing. Today he was driving his car when he experiences worsening symptoms and decided to have it further evaluated. Labwork was significant for Polycythemia, which appears chronic, lack of leukocytosis, essentially normal CMP, undetectable Troponin, and normal BNP at 41. His CXR showed a mild right basilar opacity, representing either atelectasis or pneumonia. He is afebrile and non-hypoxic, but mildly tachycardic and dyspneic. He was referred for admission for further evaluation and treatment. Review of Systems Review of Systems ROS Unobtainable: All systems reviewed & are unremarkable except as noted in HPI and below PFSH Medical History Biventricular implantable cardioverter-defibrillator (ICD) in situ (Chronic) History of alcohol abuse (Resolved) History of tobacco abuse (Resolved) LBBB (left bundle branch block) (Chronic) Nonischemic dilated cardiomyopathy (Chronic) Severe chronic obstructive pulmonary disease (Chronic) Systolic and diastolic CHF, chronic (Chronic) Social History Smoking/Tobacco Use Status: Former Tobacco Use Quit Date: 10/25/15 Pack-years: 120 Alcohol Intake: former Drug use: Never Do you feel safe in your relationship?: Yes Meds Home Medications and Allergies Home Medications Medication Instructions Recorded Confirmed Type bupropion HCl [Wellbutrin Xl] 300 mg PO DAILY tab-cap 03/06/15 07/09/19 History buspirone 7.5 mg PO 03/06/15 07/06/19 History clonazepam [Klonopin] 1 mg PO PRN tab-cap 03/06/15 07/09/19 History fluticasone propion-salmeterol 1 puff INHALATION BID disk 03/06/15 07/09/19 History [Advair 250/50 Diskus] hydrocodone-acetaminophen [Vicodin 1 ea PO QID 03/06/15 07/09/19 History 5-300 Mg Tablet] prazosin 1 mg PO DAILY tab-cap 03/06/15 07/09/19 History albuterol sulfate [Proair Hfa] 1 - 2 puff INHALATION Q4H PRN 09/27/15 07/09/19 History inhaler nitroglycerin 0.4 mg SUBLINGUAL one every 5 07/27/17 07/09/19 Rx mins. x3 #30 tab-cap spironolactone 25 mg tablet 12.5 mg PO DAILY #90 tab-cap 09/20/18 07/09/19 Rx quetiapine 300 mg tablet 800 mg PO DAILY tab-cap 09/27/18 07/09/19 History ipratropium-albuterol [Combivent 1 puff IH Q6H #4 gm 11/26/18 07/09/19 Rx Respimat] furosemide 20 mg tablet 20 mg PO DAILY 30 Days #40 tab 04/28/19 07/09/19 Rx lisinopril 10 mg tablet 10 mg PO DAILY #90 tab-cap 05/03/19 07/09/19 Rx metoprolol succinate 25 mg 25 mg PO DAILY #90 tab 05/03/19 07/09/19 Rx tablet,extended release 24 hr Allergies Allergy/AdvReac Type Severity Reaction Status Date / Time citalopram Allergy Unverified 07/09/19 11:46 oxycodone HCl [From Percocet] AdvReac Addiction Unverified 07/09/19 11:46 Exam Narrative Exam Narrative: General: Patient appears comfortable, AAOX3, NAD Neck: Supple CV: Regular, mildly tachycardic, S1S2, No rubs, murmurs, or gallops. Pulmonary: Mild diffuse rhonchi and wheezing R>L. No crackles. Abdomen: + Bowel Sounds, soft, nontender, nondistended Vascular: No lower extremity edema Neurologic: CN II-XII grossly intact. No focal deficits. Psych: Normal mood and affect. Results Labs Result diagrams: 07/09/19 11:00 07/09/19 11:00 Labs: Laboratory Results - last 24 hr 07/09/19 07/09/19 11:00 11:00 WBC 7.97 RBC 6.09 H Hgb 19.0 H Hct 55.6 H MCV 91.3 MCH 31.2 MCHC 34.2 RDW 13.9 Plt Count 200 MPV 11.2 H Immature Gran % 0.5 Neutrophils % 71.7 Lymphocytes % 15.1 Monocytes % 10.7 Eosinophils % 1.4 Basophils % 0.6 Absolute Neutrophils 5.72 Absolute Lymphocytes 1.20 Absolute Monocytes 0.85 H Absolute Eosinophils 0.11 Absolute Basophils 0.05 Sodium 138 Potassium 4.6 Chloride 100 Carbon Dioxide 30.1 Anion Gap 7.9 BUN 10 Creatinine 1.16 Estimated GFR/1.73 m2 >= 60.00 Glucose 116 H Calcium 9.6 Magnesium 2.2 Total Bilirubin 0.6 AST 17 ALT 27 Alkaline Phosphatase 113 Troponin I < 0.05 NT-Pro-B Natriuret Pep 41 Total Protein 8.5 H Albumin 4.3 Last Vital Signs Temp 36.8 C 07/09/19 10:44 Pulse 102 H 07/09/19 12:16 Resp 19 07/09/19 12:30 BP 106/73 07/09/19 12:16 Pulse Ox 90 L 07/09/19 12:30
[2019-07-09 13:06] LABS: Lactate 1.4 mmol/L (0.6-1.4)
--- NOTE | 2019-07-09 14:27 | NUR.NOTE ---
Nursing Note: 1426: RN calls [facility] [place] to verify pt's Buspar prescription. pharmacist reports pt has not filled prescription for buspar since 2017. reported to CC Lima Duke RN
[2019-07-09] MEDS: Normal Saline 1,000 ML 100 ML IV (14:36)
[2019-07-09] MEDS: cefTRIAXone 2 GM/50 ML BAG IVPB (14:37)
[2019-07-09] MEDS: Acetaminophen 325 MG TAB PO (16:09)
[2019-07-09] MEDS: HYDROcodone 5/Acetaminophen 325 TAB PO ×2 (16:10→19:36)
[2019-07-09] MEDS: Budesonide/Formoterol 160/4.5 6 GM 60 PUFF INH IH (19:36)
[2019-07-09] MEDS: methylPREDNISolone SUCC 40 MG VIAL IVP (19:36)
[2019-07-09] MEDS: QUEtiapine 100 MG TAB 200 MG PO (21:18)
[2019-07-09] MEDS: QUEtiapine 300 MG TAB 600 MG PO (21:18)
[2019-07-09] MEDS: DOXYCYCLINE 100 MG in Normal Saline 100 ML IVPB (21:19)
[2019-07-10] VITALS (7 sets, daily range): BP systolic 113; BP diastolic 72; PULSE 86–111; RESP 1–18; TEMP 36.8–37.2; O2SAT 94
[2019-07-10] MEDS: Normal Saline 1,000 ML 100 ML IV ×2 (00:21→09:29)
[2019-07-10] MEDS: methylPREDNISolone SUCC 40 MG VIAL IVP ×2 (03:42→12:30)
[2019-07-10] MEDS: Albuterol/Ipratropium 3 ML UPD VIAL UPD ×3 (06:34→13:10)
[2019-07-10 07:08] LABS: Abs Immature Grans 0.03 k/cumm (0.0-0.09); Absolute Basophil Count 0.01 k/cumm (0.0-0.2); Absolute Lymphocyte Count 0.55 k/cumm (1.2-3.4); Basophils % 0.1; HCT 47.4 % (40.0-50.0); Immature Grans % 0.2; Lymphocytes % 3.8; Mean Corp. HGB Concentration 33.8 g/dL (32.0-36.0); Mean Corpuscular Volume 91.9 fL (80-95); Mean Platelet Volume 11.3 fL (8.0-11.0); Monocytes % 3.2; Neutrophils % 92.7; Platelet Count 191 x1000/uL (130-400); RBC 5.16 m/cumm (4.50-6.00); RBC Distribution Width 13.9 % (11.8-14.1); White Blood Cell Count 14.55 k/cumm (4.4-10.8)
[2019-07-10 07:10] LABS: Absolute Monocyte Count 0.47 k/cumm (0.11-0.7); Absolute Neutrophil Count 13.49 k/cumm (1.2-6.7)
[2019-07-10 07:28] LABS: Anion Gap 11.8 mmol/L (3-11); BUN 17 mg/dL (7-18); CO2 21.2 mmol/L (21.0-32.0); CREATININE 1.08 mg/dL (0.70-1.30); Calcium 8.7 mg/dL (8.5-10.1); Chloride 105 mmol/L (98-107); Glucose 226 mg/dL (70-100); Magnesium 1.9 mg/dL (1.8-2.4); Potassium 4.6 mmol/L (3.5-5.1); Sodium 138 mmol/L (136-145)
[2019-07-10] MEDS: buPROPion-XL 150 MG TABCR 300 MG PO (08:53)
[2019-07-10] MEDS: HYDROcodone 5/Acetaminophen 325 TAB PO ×2 (08:53→12:30)
[2019-07-10] MEDS: Prazosin 1 MG CAP PO (08:53)
[2019-07-10] MEDS: Metoprolol CR 25 MG TABCR PO (08:54)
[2019-07-10] MEDS: Lisinopril 10 MG TAB PO (08:54)
[2019-07-10] MEDS: Furosemide 20 MG TAB PO (08:54)
[2019-07-10] MEDS: Spironolactone 25 MG TAB 12.5 MG PO (08:54)
[2019-07-10] MEDS: Budesonide/Formoterol 160/4.5 6 GM 60 PUFF INH IH (09:29)
[2019-07-10] MEDS: Magnesium Oxide 400 MG TAB PO (09:29)
[2019-07-10] MEDS: DOXYCYCLINE 100 MG in Normal Saline 100 ML IVPB (09:41)
--- NOTE | 2019-07-10 11:57 | PHARADMIT ---
Admission Pharmacy Clinical Review COPD EXACERBATION W/FEVER, HX: PTSD, Anxiety, depression Code Status Full Code Current Weight 84.9 kg Renally Cleared and Narrow Therapeutic Index Meds CrCl~69ml/min QTc Value / Action Taken QTC 485 (Has ICD/Pacer) BP Control, Fever BP 113/72 Afebrile now (Tmax 38.3 @ 4pm yesterday) Sats 88-90% on room air Electrolytes reviewed WNL DVT Prophylaxis Lovenox Opiate Usage / Scheduled Bowel Regimen Ordered [place] scheduled/yes bowel meds Plt/SCr for Heparin / Enoxaparin Plt 191 SCr 1.08 INR for Warfarin H/H stable, WBC/Bands H/H 16.0/47.4 WBC 14.55 (up-IV steroids and inhaler) Antibiotic appropriateness Rcephin/Doxy IV-treating CAP Cultures and Sensitivities blood pending Surgical ABX d/c within 24 hr DM control / Insulin Dosing BG 26 Heart Failure (Check EF%) (TEOFILO's, B-Block, Diuretics) Lasix, Lisinopril, Toprol, NTG, Prazosin, Spironolactone IV to PO Switch Home Meds Reviewed Home Meds Not Ordered ok Comments Duonebs scheduled Clonazepam missing a frequency
[2019-07-10] MEDS: cefTRIAXone 2 GM/50 ML BAG IVPB (13:29)
[2019-07-10] MEDS: Enoxaparin 40 MG/0.4 ML SYR SC (13:30)
--- NOTE | 2019-07-10 14:08 | DSE_ITS ---
Date of service: 07/10/19 Time of Service: 14:08 DS: Diagnosis Discharge Diagnosis (1) Dyspnea: Status: Acute (2) Severe chronic obstructive pulmonary disease: Status: Chronic (3) Nonischemic dilated cardiomyopathy: Status: Chronic (4) COPD (chronic obstructive pulmonary disease): Status: Chronic Discharge Plan Disposition Patient Disposition: HOME Condition: Improving Discharge Details Chief Complaint: SOB Clinical Impression: Acute exacerbation of chronic obstructive pulmonary disease (COPD), PNA (pneumonia) Reason For Visit: PNEUMONIA, COPD EXACERBATION Admit Date/Time: 07/09/19 12:33 Admit Provider: Jeramie Qureshi Attending Provider: Jeramie Qureshi Primary Care Provider: Lorrie Crespo ED Provider: Erik Grace Hospital Course Hospital Course: Chief Complaint: Dyspnea HPI: Pleasant 53 year old man with a prior history of tobacco abuse and COPD, admitted from [facility] Emergency Department on 07/09 with a diagnosis of COPD exacerbation and Pneumonia. Mr. Gay has a Past Medical History significant for Severe COPD, and prior tobacco and alcohol abuse now in remission. He was diagnosed with a severe NICMP, with an intial LVEF of 20% and evidence of dilated cardiomyopathy, potentially on the basis of EtOH abuse, s/p AICD with a BiV PPM placed at [facility] in September of 2014. His last ECHO on October 2017 showed a normalized LVEF at 55%. He also has a significant psychiatric history with PTSD, Chronic panic attacks, agoraphobia, depression, and anxiety, and reportedly on disability as a result of this. The patient presented to the ED with a reported 2 day history of worsening dyspnea, cough, sputum production, and wheezing. He was driving his car when he experienced worsening symptoms and decided to have it further evaluated. Labwork in the ED was significant for Polycythemia, which appears chronic, lack of leukocytosis, essentially normal CMP, undetectable Troponin, and normal BNP at 41. His CXR showed a mild right basilar opacity, representing either atelectasis or pneumonia, but current overread by local radiology shows no acute cardiopulmonary disease. He was however febrile shortly after admission. This morning Mr. Gay reports vast improvement in his symptoms. He is requesting to be discharged and return home. Assessment & Plan: (1) Dyspnea: On the basis of an acute COPD exacerbation in the setting of a potential pulmonary infection. - Despite official CXR, patient did experience fevers following admission. Plan on short antibiotic course for potential CAP vs. Bacterial Bronchitis. - Blood Cultures so far untelling, and sputum culture does not appear to have been collected. Lactate was checked and normal. - Will also plan on steroid taper and ensure aggressive home nebs. (2) Severe chronic obstructive pulmonary disease: Treatment as above. (3) Nonischemic dilated cardiomyopathy: History of non-ischemic CMP, LVEF improved from 20% to 55% by last ECHO 10/2017, s/p AICD BiV PPM. Appeared mildly dry at admission, with a low normal BNP.\ - Continue TEOFILO-I, BB, and Spironolactone. Also on daily Furosemide. (4) COPD (chronic obstructive pulmonary disease): Treatment as above. (5) DVT prophylaxis: Was maintained on SC Enoxaparin. Home Meds and New Rx's Prescriptions: New ipratropium-albuterol 0.5 mg-3 mg(2.5 mg base)/3 mL Solution For Nebulization 3 ml UPD Q4H PRNQty: 1 RF: 0 cefpodoxime 200 mg tablet 200 mg PO BID Qty: 10 RF: 0 doxycycline hyclate 100 mg capsule 100 mg PO BID Qty: 10 RF: 0 prednisone 10 mg tablet 10 mg PO BID Qty: 45 RF: 0 Continued furosemide 20 mg tablet 20 mg PO DAILY 30 Days Qty: 40 RF: 11 fluticasone propion-salmeterol [Advair Diskus] 1 EACH blister with device 1 puff Inhalation BID RF: 0 clonazepam [Klonopin] 0.5 MG tablet 1 mg PO PRN RF: 0 prazosin 2 MG capsule 1 mg PO DAILY RF: 0 bupropion HCl [Wellbutrin XL] 300 MG tablet extended release 24 hr 300 mg PO DAILY RF: 0 hydrocodone-acetaminophen [Vicodin] 1 EACH tablet 1 ea PO QID RF: 0 albuterol sulfate [ProAir HFA] 8.5 GM HFA aerosol inhaler 1 - 2 puff Inhalation Q4H PRN RF: 0 nitroglycerin 0.4 MG tablet, sublingual 0.4 mg Sublingual one every 5 mins. x3 Qty: 30 RF: 3 spironolactone 25 mg tablet 12.5 mg PO DAILY Qty: 90 RF: 4 quetiapine [Seroquel] 300 mg tablet 800 mg PO DAILY RF: 0 lisinopril 10 mg tablet 10 mg PO DAILY Qty: 90 RF: 3 metoprolol succinate 25 mg tablet extended release 24 hr 25 mg PO DAILY Qty: 90 RF: 3 Combivent Respimat 20-100 mcg/actuation mist 1 puff IH Q6H Qty: 4 RF: 0 Discharge Instructions Stand Alone Forms: Nursing Discharge Form Referrals: Lorrie Crespo [Primary Care Provider] - Activity:: No strenuous activity Equipment/Supplies:: No Equipment Needed Diet:: As Tolerated Discharge Orders Discharge Orders: Discharge Order (Routine); Ordered 07/10/19 Ordered By: Jeramie Qureshi DS: Summary Status at Discharge Functional status at discharge: independent ambulation Overall status at discharge: patient is back to baseline Mental Status: mental status grossly normal Speech and Movement: speech and movement normal Mood: congruent mood Affect: normal affect Exam Narrative Exam Narrative: General: Patient appears comfortable, AAOX3, NAD Neck: Supple CV: Regular, mildly tachycardic, S1S2, No rubs, murmurs, or gallops. Pulmonary: Mild diffuse rhonchi and wheezing resolved. No crackles. Abdomen: + Bowel Sounds, soft, nontender, nondistended Vascular: No lower extremity edema Psych: Normal mood and affect. Psych Mental Status: mental status grossly normal Speech and Movement: speech and movement normal Mood: congruent mood Affect: normal affect DS: Data Vitals/I&O Vitals and I&O: Vital Signs Temperature 37.2 C 07/10/19 07:35 Temperature Source Skin 07/10/19 07:35 Pulse 108 H 07/10/19 13:20 Pulse Rhythm Regular 07/10/19 08:45 Pulse 102 H 07/09/19 12:30 Respiratory Rate 18 07/10/19 13:10 Respiratory Effort Non-Labored 07/10/19 08:45 Respiratory Depth Normal 07/10/19 08:45 Respiratory Pattern Normal 07/10/19 08:45 Blood Pressure 113/72 07/10/19 07:35 Blood Pressure Mean 81 07/09/19 12:16 Blood Pressure Position Sitting 07/09/19 10:44 Pulse Oximetry 94 L 07/10/19 07:35 Oxygen Delivery Method Room Air 07/10/19 13:10 Oxygen Flow Rate 0 07/10/19 13:10 Pain Level 1 07/10/19 12:30 Comment 07/10/19 07:35 Intake & Output 07/09/19 07/10/19 07/10/19 23:59 11:59 23:59 Intake Total 1601.667 / 0091.143 4163.999 / 2869.999 240 / 2869.999 Output Total 1375 / 1375 Balance 1601.667 / 8081.966 7527.999 / 1494.999 240 / 1494.999 Weight 84 kg 84.9 kg Intake: IV 821.667 / 453.958 0395.999 / 1419.999 Oral 780 / 780 1210 / 1450 240 / 1450 Output: Urine 1375 / 1375 Other: Urine Color Yellow Urine Appearance Clear Comment pt gets up to void AD STEVEN. Voiding Methods Toilet Urinal Data Completed and Pending Completed studies during hospitalization [Text1]: EXAM: XR Chest, 2 Views EXAM DATE/TIME: 07/09/2019 11:01 AM CLINICAL HISTORY: 53 years old, male; Cough and shortness of breath TECHNIQUE: Imaging protocol: XR of the chest Views: 2 views. COMPARISON: CR CHEST 2 VIEWS PA,LAT 11/08/2015 12:58 PM FINDINGS: Tubes, catheters and devices: Transvenous pacemaker leads are stable Lungs: Mild opacity in the right base may represent atelectasis or pneumonia. Pleural space: Unremarkable. No pleural effusion. No pneumothorax. Heart/Mediastinum: Stable cardiac silhouette thank you Bones/joints: Unremarkable. IMPRESSION: Mild opacity in the right base may represent atelectasis or pneumonia. Low Exam(s) 07/09/2019 a RAD:XR chest 2V PA & lateral SYMPTOM/DIAGNOSIS: COUGH, SOB PA AND LATERAL CHEST: Pacing wires are in stable position when compared with previous images. There is no definite infiltrate in the lungs. There is no pleural effusion or p neumothorax. The heart is within normal limits in size. No acute bony abnormality is seen. IMPRESSION: No evidence of acute cardiopulmonary disease. Labs on day of discharge: Labs from last 24 hours 07/10/19 07/10/19 06:22 06:22 WBC 14.55 H D RBC 5.16 Hgb 16.0 D Hct 47.4 MCV 91.9 MCH 31.0 MCHC 33.8 RDW 13.9 Plt Count 191 MPV 11.3 H Immature Gran % 0.2 Neutrophils % 92.7 Lymphocytes % 3.8 Monocytes % 3.2 Eosinophils % 0.0 Basophils % 0.1 Absolute Neutrophils 13.49 H Absolute Lymphocytes 0.55 L Absolute Monocytes 0.47 Absolute Eosinophils 0.00 Absolute Basophils 0.01 Sodium 138 Potassium 4.6 Chloride 105 Carbon Dioxide 21.2 Anion Gap 11.8 H BUN 17 D Creatinine 1.08 Estimated GFR/1.73 m2 >= 60.00 Glucose 226 H D Calcium 8.7 Magnesium 1.9 07/09/19 12:58 Blood Blood Culture - Pending 07/09/19 12:40 Blood Blood Culture - Pending Preliminary micro results at discharge 07/09/19 12:58 Blood Culture - Pending Blood 07/09/19 12:40 Blood Culture - Pending Blood [facility] Medical History Biventricular implantable cardioverter-defibrillator (ICD) in situ (Chronic) History of alcohol abuse (Resolved) History of tobacco abuse (Resolved) LBBB (left bundle branch block) (Chronic) Nonischemic dilated cardiomyopathy (Chronic) Severe chronic obstructive pulmonary disease (Chronic) Systolic and diastolic CHF, chronic (Chronic) Social History Smoking/Tobacco Use Status: Former Tobacco Use Quit Date: 10/25/15 Pack-years: 120 Alcohol Intake: former Drug use: Never Do you feel safe in your relationship?: Yes
--- NOTE | 2019-07-10 16:10 | PDOC.CMIN ---
- If Service Date Differs Date of service: 07/10/19 Time of Service: 16:10 Care Management Initial Assess REASON FOR HOSPITALIZATION:: Pneumonia, COPD exacerbation PAST MEDICAL HISTORY/PAST SURGICAL HISTORY:: Medical History. Biventricular implantable cardioverter-defibrillator (ICD) in situ (Chronic). History of alcohol abuse (Resolved). History of tobacco abuse (Resolved). LBBB (left bundle branch block) (Chronic). Nonischemic dilated cardiomyopathy (Chronic). Severe chronic obstructive pulmonary disease (Chronic). Systolic and diastolic CHF, chronic (Chronic) PREVIOUS FUNCTIONAL STATUS/SOCIAL/FAMILY SUPPORTS:: William lives alone in [place]. He is disabled due to a history of PTSD, chronic panic attacks, agoraphobia, depression and anxiety. He is independent at baseline with no current medical equipment. He sees a psychiatric therapist regularly. He does not have any family or friends in the area. CURRENT FUNCTIONAL STATUS:: William is sitting up in his chair during the conversation with CM. He is fully dressed and states that he is excited to go home because he doesn't like to leave his home for long periods. CM asked if he has anyone look in on his home when he is not there, and he responded that he has neighbors but doesn't know how well they look after the house. CM asked if he was aware of his plan of care, which he responded that the provider told him that they would check in on him this afternoon and would discharge him if he was medically ready. He expressed concerns about being able to afford his inhalers. MIRANDA contacted [facility] [place] to find out the copay. MIRANDA also contacted the intensive care nurse at his PCP office, Monica @ [facility] for PCP follow up on alternative medications to reduce cost. CM to follow. He is agreeable to the plan. ADVANCE DIRECTIVES:: None on file, not interested at this time. Has patient been provided with information about the portal?: Yes Did the patient sign up for the portal?: No CODE STATUS:: Full Code INSURANCE COVERAGE / FINANCIAL ISSUES:: [facility] CURRENT HOME/COMMUNITY SERVICES/EQUIPMENT:: William has a psychiatric therapist that he sees on a regular basis. PRIMARY CARE PHYSICIAN:: Lorrie Crespo POTENTIAL DISCHARGE NEEDS:: Evaluations for further needs, follow up appointment with PCP, discussion regarding affording medications. PATIENT/FAMILY EDUCATION NEEDS:: Review of community based supports, discharge plan, discussion of self care needs upon discharge including Ask Me Three ANTICIPATED BARRIERS TO DISCHARGE:: None identified at this time. TRANSPORTATION:: Private vehicle, driven by himself. PLAN:: William will return home when medically cleared by the provider with no new services anticipated. He will transport himself via private vehicle. Follow up with PCP.
--- NOTE | 2019-07-10 16:33 | PDOC.CMDIS ---
- If Service Date Differs Date of service: 07/10/19 Time of Service: 16:33 LACE Index Scoring Tool - Questions: Length of Stay (in days): 2 Acuity (Admit via E.D.?): Yes E.D. Visits: 2 - Answers: Total Score: 7 Risk of Readmission: Low Risk Care Management Discharge Reason for Hospitalization: Pneumonia, COPD exacerbation Discharge Plan: William was discharged home with no new services. He transported himself via private vehicle. He will follow up with his PCP. Patient/Family Education Needs: Review discharge instructions, discussion of self care needs including Ask Me Three.
== END 2019-07-10 15:35 | disposition home or self-care (01) | DRG 190 ==
LOC: ER 12:45 → MS 13:05
PROVIDERS: Admitting Provider Internal Medicine; Emergency Provider Student in an Organized Health Care Education/Training Program; PCP Nurse Practitioner Family; Visit Provider Internal Medicine
DX: J44.1 Chronic obstructive pulmonary disease with (acute) exacerbation; J18.9 Pneumonia, unspecified organism; I42.0 Dilated cardiomyopathy; J44.0 Chronic obstructive pulmonary disease with (acute) lower respiratory infection; Z87.891 Personal history of nicotine dependence; F43.10 Post-traumatic stress disorder, unspecified; F41.8 Other specified anxiety disorders; D75.1 Secondary polycythemia; Z73.6 Limitation of activities due to disability; Z95.810 Presence of automatic (implantable) cardiac defibrillator
CPT/HCPCS: 36410; 36415; 80048; 80053; 87040; 93005; 94640; 99222; 99238; 99285; J1650; 71046; 83605; 83735; 83880; 84484; 85025; 93010; J2930; J7620

== ENCOUNTER 2019-09-20 11:53 | Outpatient (REF) | payer MEDICARE, SELFPAY ==
[2019-09-20 16:38] LABS: HCT 46.4 % (40.0-50.0); HGB 15.7 g/dL (13.5-17.5); Mean Corp. HGB Concentration 33.8 g/dL (32.0-36.0); Mean Corpuscular Hemoglobin 31.4 pg (27.0-33.0); Mean Corpuscular Volume 92.8 fL (80-95); Mean Platelet Volume 11.4 fL (8.0-11.0); Platelet Count 179 x1000/uL (130-400); RBC Distribution Width 14.8 % (11.8-14.1); White Blood Cell Count 6.82 k/cumm (4.4-10.8)
[2019-09-20 16:54] LABS: Anion Gap 9.9 mmol/L (3-11); BUN 9 mg/dL (7-18); CO2 26.1 mmol/L (21.0-32.0); CREATININE 1.11 mg/dL (0.70-1.30); Calcium 8.8 mg/dL (8.5-10.1); Chloride 105 mmol/L (98-107); Glucose 89 mg/dL (74-106); NT-proBNP 39 pg/mL (<300); Potassium 4.3 mmol/L (3.5-5.1); Sodium 141 mmol/L (136-145); TSH (W/Ref FT4) 1.85 uIU/mL (0.36-3.74)
== END 2019-09-20 12:13 ==
LOC: NCHCN 11:53
PROVIDERS: PCP Nurse Practitioner Family; Visit Provider Nurse Practitioner Family
DX: I50.9 Heart failure, unspecified (principal); R53.83 Other fatigue; I42.9 Cardiomyopathy, unspecified; R41.0 Disorientation, unspecified
CPT/HCPCS: 80048; 85027; 83880; 84443

== ENCOUNTER 2019-09-29 14:52 | Outpatient (CLI) | payer MEDICARE, SELFPAY ==
--- NOTE | 2019-09-29 14:43 | DI.RAD_ITS ---
EXAM: XR CHEST 2V PA AND LATERAL INDICATION: SOB R06.02. COMPARISON: CHEST 2 VIEWS PA,LAT from 11/08/2015 XR CHEST 2V PA LATERAL from 07/09/2019 TECHNIQUE: 2D digital imaging was performed. FINDINGS: Heart size and pulmonary vasculature are within normal limits. Pacing wires are stable in position. There is atelectasis or scarring in the lung bases, which is stable. No consolidating infiltrates a re seen. No effusions or pneumothoraces are present. No acute osseous abnormalities present. IMPRESSION: No acute pulmonary process.
== END 2019-09-29 15:12 ==
PROVIDERS: PCP Nurse Practitioner Family; Visit Provider Nurse Practitioner Family
DX: R06.02 Shortness of breath (principal); Z95.0 Presence of cardiac pacemaker
CPT/HCPCS: 71046

== ENCOUNTER 2019-10-04 13:58 | Outpatient (CLI) | payer MEDICARE, SELFPAY ==
[2019-10-04 14:25] LABS: HCT 51.9 % (40.0-50.0); HGB 17.7 g/dL (13.5-17.5); Mean Corp. HGB Concentration 34.1 g/dL (32.0-36.0); Mean Corpuscular Hemoglobin 31.2 pg (27.0-33.0); Mean Corpuscular Volume 91.5 fL (80-95); Mean Platelet Volume 11.1 fL (8.0-11.0); Platelet Count 186 x1000/uL (130-400); RBC 5.67 m/cumm (4.50-6.00); RBC Distribution Width 14.7 % (11.8-14.1)
[2019-10-04 14:55] LABS: D-Dimer 413 ng/mlFEU (<500)
[2019-10-04 15:03] LABS: NT-proBNP 51 pg/mL (<300)
== END 2019-10-04 14:18 ==
PROVIDERS: PCP Nurse Practitioner Family; Visit Provider Nurse Practitioner Family
DX: R06.02 Shortness of breath (principal)
CPT/HCPCS: 36415; 85027; 83880; 85379

== ENCOUNTER 2020-03-08 14:37 | Inpatient (IN) | payer MEDICARE, SELFPAY ==
[2020-03-08] VITALS (49 sets, daily range): BP systolic 111–140; BP diastolic 75–88; PULSE 95–111; RESP 16–25; TEMP 36.9–37.2; O2SAT 89–100
[2020-03-08 15:19] LABS: Abs Immature Grans 0.03 k/cumm (0.0-0.09); Absolute Basophil Count 0.03 k/cumm (0.0-0.2); Absolute Lymphocyte Count 1.24 k/cumm (1.2-3.4); Absolute Monocyte Count 1.34 k/cumm (0.11-0.7); Basophils % 0.3; Eosinophils % 1.1; HCT 52.8 % (40.0-50.0); HGB 17.8 g/dL (13.5-17.5); Immature Grans % 0.3 %; Lymphocytes % 13.7; Mean Corp. HGB Concentration 33.7 g/dL (32.0-36.0); Mean Corpuscular Hemoglobin 31.3 pg (27.0-33.0); Mean Platelet Volume 11.9 fL (8.0-11.0); Monocytes % 14.8; Neutrophils % 69.8; Platelet Count 202 x1000/uL (130-400); RBC 5.68 m/cumm (4.50-6.00); RBC Distribution Width 13.8 % (11.8-14.1); White Blood Cell Count 9.04 k/cumm (4.4-10.8)
--- NOTE | 2020-03-08 15:30 | DI.CT_ITS ---
EXAM: CT CHEST PE ABD PELVIS W CLINICAL HISTORY: L sided chest pain TECHNIQUE: Imaging Protocol: Axial computed tomography images with coronal and sagittal reformatted images were created and reviewed. Axial CT angiography was performed with multi-slice acquisition and multi-planar and/or 3D reconstruc tions. CONTRAST MATERIAL: Intravenous: Omnipaque 350 Contrast volume:100 mL Oral: No COMPARISON: CT CT chest PE CTA from 11/26/2018 CR XR CHEST 2V PA LATERAL from 09/29/2019 FINDINGS: CHEST: Tracheobronchial tree: Patent where visualized. Pulmonary arteries: No filling defects are seen to suggest pulmonary emboli. Mediastinum and Latrice: No dominant adenopathy or fluid collection. Pulmonary parenchyma: There is an infiltrate in the left lingula which may represent atelectasis, sca rring or pneumonia. Moderately severe emphysematous changes are present in the lungs Pleura: No effusion or pneumothorax. Heart: The heart is not dilated. Moderate coronary artery calcifications are present. No significant pericardial effusion. Cardiac pacing device is in place. Aorta: Thoracic aorta non-dilated. Atherosclerosis. Lymph nodes: Within normal limits. Bones:There is a nondisplaced acute fracture of the lateral aspect of the left 8th rib. There is a q uestion of a subtle deformity of the lateral aspect of the left 7th rib which may represent a non dis placed fracture. Tubes, Catheters, and Lines: Cardiac pacing device in place. ABDOMEN: Liver: Normal density. No measurable mass. Portal, Superior Mesenteric, and Splenic Veins: Unremarkable. Gallbladder and Biliary Tract: No radiodense calculus or dilation. Pancreas: Normal density, no abnormal calcifications or inflammatory process. Spleen: Normal. Adrenals: No masses seen. Kidneys: Normal size, contour and axis. No radiodense stones or obstructive uropathy. No masses seen. Abdominal Aorta: Abdominal portion non-dilated. Atherosclerosis. Bowel: No obstruction or bowel wall thickening. Appendix is unremarkable. Peritoneal Cavity: No ascites, collection or mesenteric inflammatory response. Lymph Nodes: Within normal limits. Bones: Unremarkable. Soft Tissues: Bilateral fat containing inguinal hernia. PELVIS: Bladder: Symmetric distention, no gross wall thickening. Reproductive Organs: Unremarkable as visualized. Lymph Nodes: Within normal limits. Bones: Within normal limits. IMPRESSION: 1. Unremarkable CT scan of the abdomen and pelvis. 2. Nondisplaced fracture involving the lateral aspect of left 8th rib and possible acute fracture of the left 7th rib laterally. RADIATION DOSE DELIVERED: Total DLP Total DLP DATA REPOSITORY: All CT scans at this facility are submitted to the National Radiology Data Registry (NRDR) Dose Index Registry (DIR) with the [employer] ([employer]). RADIATION OPTIMIZATION: All CT scans at this facility use at least one of these dose optimization te chniques: automated exposure control; mA and/or kV adjustment per patient size (includes targeted exa ms where dose is matched to clinical indication); or iterative reconstruction.
--- NOTE | 2020-03-08 15:30 | DI.CT_ITS ---
EXAM: CT HEAD CERVICAL SPINE WO CLINICAL HISTORY: s/p fall, altered mental status. TECHNIQUE: Imaging Protocol: Axial computed tomography images with coronal and sagittal reformatted images were created and reviewed COMPARISON: No exams were available for comparison FINDINGS: There is patient motion artifact. CT Head: Ventricles and Extra axial spaces: Normal in size and morphology for the patient's age. Hemorrhage: None. Cerebral parenchyma: Normal. Midline shift: None. Brainstem/Cerebellum: Normal. Calvarium: Normal. Visualized Paranasal sinuses/Mastoids: Clear. Soft Tissues: Unremarkable. CT Cervical Spine: Bones: No acute fracture or subluxation. Degenerative changes are seen in the cervical spine. Soft Tissues: Unremarkable. Lung Apices: Clear. IMPRESSION: 1. No acute intracranial process. 2. No acute fracture or subluxation in the cervical spine. RADIATION DOSE DELIVERED: DATA REPOSITORY: All CT scans at this facility are submitted to the National Radiology Data Registry (NRDR) Dose Index Registry (DIR) with the [employer] ([employer]). RADIATION OPTIMIZATION: All CT scans at this facility use at least one of these dose optimization te chniques: automated exposure control; mA and/or kV adjustment per patient size (includes targeted exa ms where dose is matched to clinical indication); or iterative reconstruction.
--- NOTE | 2020-03-08 15:36 | ED.GENADUL_ITS ---
Discharge Plan Disposition Patient Disposition: [facility] INPATIENT Condition: Stable Discharge Details Chief Complaint: Chest Pain Clinical Impression: Altered mental status, UTI (urinary tract infection), Dehydration, Left rib fracture Primary Care Provider: Lorrie Crespo ED Provider: Yeny Picknes Home Meds and New Rx's Prescriptions: No Action furosemide 20 mg tablet 20 mg PO DAILY 30 Days Qty: 40 RF: 11 fluticasone propion-salmeterol [Advair Diskus] 1 EACH blister with device 1 puff Inhalation BID RF: 0 clonazepam [Klonopin] 0.5 MG tablet 1 mg PO PRN RF: 0 prazosin 2 MG capsule 1 mg PO DAILY RF: 0 bupropion HCl [Wellbutrin XL] 300 MG tablet extended release 24 hr 300 mg PO DAILY RF: 0 hydrocodone-acetaminophen [Vicodin] 1 EACH tablet 1 ea PO QID RF: 0 albuterol sulfate [ProAir HFA] 8.5 GM HFA aerosol inhaler 1 - 2 puff Inhalation Q4H PRN RF: 0 nitroglycerin 0.4 MG tablet, sublingual 0.4 mg Sublingual one every 5 mins. x3 Qty: 30 RF: 3 spironolactone 25 mg tablet 12.5 mg PO DAILY Qty: 90 RF: 4 quetiapine [Seroquel] 300 mg tablet 800 mg PO DAILY RF: 0 lisinopril 10 mg tablet 10 mg PO DAILY Qty: 90 RF: 3 metoprolol succinate 25 mg tablet extended release 24 hr 25 mg PO DAILY Qty: 90 RF: 3 ipratropium-albuterol 0.5 mg-3 mg(2.5 mg base)/3 mL Solution For Nebulization 3 ml UPD Q4H PRNQty: 1 RF: 0 cefpodoxime 200 mg tablet 200 mg PO BID Qty: 10 RF: 0 doxycycline hyclate 100 mg capsule 100 mg PO BID Qty: 10 RF: 0 prednisone 10 mg tablet 10 mg PO BID Qty: 45 RF: 0 pravastatin 40 mg tablet RF: 0 benztropine 1 mg tablet RF: 0 montelukast 10 mg tablet RF: 0 Combivent Respimat 20-100 mcg/actuation mist 1 puff IH Q6H Qty: 4 RF: 0 Medical Decision Making 1425 -- 54yo M w/ h/o copd, chf, icd, former alcohol and tobacco abuse presents for generalized weakness, decreased appetite, left-sided chest pain, shortness of breath and cough for the past 5 days. EKG on arrival notes a rate of 109, paced with no acute change from previous EKG. Patient appears altered and that he has slowed in his responses. He has no focal deficits. Heart rate 108. Afebrile. He appears generally unkempt. He has an old traumatic left leg wound that appears to be healing. No deformity. His abdomen appears tense and tender in the upper quadrants. His left chest is tender to palpation. No obvious step-off. Differential diagnosis includes acute CVA, UTI, pneumonia, PE, AR, electrolyte abnormality, dehydration. Will check screening labs, urinalysis, CT head and cervical spine, chest and abdomen and pelvis. 1829 -- Labs and imaging reviewed. White blood cell count normal. Troponin negative. BNP negative. CT chest notes left lateral rib fracture. No other acute findings. Urinalysis obtained after some delay and appears consistent with questionable UTI. Patient reassessed - he appears somewhat more alert but still slowed in his responses. Patient seems appropriate for admission for further evaluation and observation overnight for antibiotics, fluids and PT and care management evaluation. 1849 -- d/w hospitalist - accepts pt for admission. Medical Records Medical records reviewed: Yes I reviewed the patient's medical records. Imaging Data Radiologic Study: Radiologist's impression: CT Head Without Contrast Exam date and time: 03/08/2020 3:36 PM Age: 54 years old Clinical indication: Other: S/P fall, altered mental status TECHNIQUE: Imaging protocol: Computed tomography of the head without contrast. Radiation optimization: All CT scans at this facility use at least one of these dose optimization techniques: automated exposure control; mA and/or kV adjustment per patient size (includes targeted exams where dose is matched to clinical indication); or iterative reconstruction. COMPARISON: No relevant prior studies available. FINDINGS: Brain: No intracranial hemorrhage or extra-axial fluid collection. No evidence of mass effect or midline shift. Montesinos-white matter differentiation is intact. Ventricles: No ventriculomegaly. Bones/joints: No acute osseus lesion or fracture. Sinuses: Unremarkable as visualized. Mastoid air cells: Unremarkable. Soft tissues: Unremarkable. IMPRESSION: No acute intracranial pathology. CT Cervical Spine Without Contrast Exam date and time: 03/08/2020 3:36 PM Age: 54 years old Clinical indication: Other: S/P fall, altered mental status TECHNIQUE: Imaging protocol: Computed tomography images of the cervical spine without contrast. Radiation optimization: All CT scans at this facility use at least one of these dose optimization techniques: automated exposure control; mA and/or kV adjustment per patient size (includes targeted exams where dose is matched to clinical indication); or iterative reconstruction. COMPARISON: No relevant prior studies available. FINDINGS: Limitations: Examination is limited by motion artifact. Vertebrae: Vertebral body heights are maintained. No locked or perched facets. Multilevel facet arthropathy. No acute cervical spine fracture. The dens is intact. Atlanto-axial intervals are normal. Discs/Spinal canal/Neural foramina: Multilevel degenerative changes with intervertebral disc height loss and osteophyte formation, with multilevel areas of mild canal stenosis. Soft tissues: Unremarkable. Lungs: Partially visualized bullous changes within the lung apices. IMPRESSION: 1. No acute cervical spine fracture. 2. Other chronic findings, as above. CT Angiography Chest With Contrast Exam date and time: 03/08/2020 4:18 PM Age: 54 years old Clinical indication: Other: L sided chest pain; Prior surgery; Surgery date: 6+ months TECHNIQUE: Imaging protocol: Computed tomographic angiography of the chest with intravenous contrast. 3D rendering: MIP and/or 3D reconstructed images were created by the technologist. Radiation optimization: All CT scans at this facility use at least one of these dose optimization techniques: automated exposure control; mA and/or kV adjustment per patient size (includes targeted exams where dose is matched to clinical indication); or iterative reconstruction. Contrast material: OMNIPAQUE 350; Contrast volume: 100 ml; Contrast route: IV; COMPARISON: No relevant prior studies available. FINDINGS: Tubes, catheters and devices: Left-sided cardiac pacemaker. Pulmonary arteries: No filling defects within the main, lobar, segmental, and subsegmental pulmonary arterial branches. Aorta: Mild atherosclerotic calcifications of the aorta. Lungs: Linear scarring versus atelectasis in the lingula. Centrilobular emphysematous changes of the lungs, with prominent biapical bullous changes. Pleural space: No pleural effusion or pneumothorax. Heart: Unremarkable. No pericardial effusion. Lymph nodes: No enlarged lymph nodes. Bones/joints: Acute nondisplaced left lateral 7th rib fracture (axial series 5, image 34). Mild degenerative changes of the visualized spine. Soft tissues: Unremarkable. IMPRESSION: 1. Acute nondisplaced left lateral 7th rib fracture. Correlate clinically with history of trauma. 2. Other chronic findings, as above. CT Abdomen And Pelvis With Contrast Exam date and time: 03/08/2020 4:18 PM Age: 54 years old Clinical indication: Other: L sided chest pain; Prior surgery; Surgery date: 6+ months TECHNIQUE: Imaging protocol: Computed tomography of the abdomen and pelvis with intravenous contrast. Radiation optimization: All CT scans at this facility use at least one of these dose optimization techniques: automated exposure control; mA and/or kV adjustment per patient size (includes targeted exams where dose is matched to clinical indication); or iterative reconstruction. Contrast material: OMNIPAQUE 350; Contrast volume: 100 ml; Contrast route: IV; COMPARISON: No relevant prior studies available. FINDINGS: Liver: Unremarkable. Gallbladder and bile ducts: Unremarkable. No ductal dilation. Pancreas: Unremarkable. No ductal dilation. Spleen: Unremarkable. Adrenals: Unremarkable. Kidneys and ureters: No hydronephrosis or stones. Stomach and bowel: Stomach is unremarkable. No small bowel obstruction. Large bowel is unremarkable. Appendix: No evidence of appendicitis. Intraperitoneal space: No pneumoperitoneum. No significant fluid collection. Vasculature: Atherosclerotic calcifications of the aorta and major branches. Lymph nodes: No enlarged lymph nodes. Bladder: Unremarkable. Reproductive: Unremarkable as visualized. Bones/joints: Multilevel mild degenerative changes of the visualized spine. No acute osseous lesion or fracture. Soft tissues: Small fat containing right inguinal hernia. Small fat containing left inguinal hernia. IMPRESSION: 1. No acute intra-abdominal findings. 2. Other chronic findings, as above. Lab Data Lab results reviewed: Yes I reviewed the patient's lab results. Labs: 03/08/20 17:55 Urine - Reflex from Ua Urine Culture - Pending Laboratory Tests Range/Units 03/08/20 03/08/20 03/08/20 15:00 15:00 15:00 WBC (4.4-10.8) k/cumm 9.04 RBC (4.50-6.00) m/cumm 5.68 Hgb (13.5-17.5) g/dL 17.8 H Hct (40.0-50.0) % 52.8 H MCV (80-95) fL 93.0 MCH (27.0-33.0) pg 31.3 MCHC (32.0-36.0) g/dL 33.7 RDW (11.8-14.1) % 13.8 Plt Count (130-400) x1000/uL 202 MPV (8.0-11.0) fL 11.9 H Immature Gran % % 0.3 Neutrophils % 69.8 Lymphocytes % 13.7 Monocytes % 14.8 Eosinophils % 1.1 Basophils % 0.3 Absolute Neutrophils (1.2-6.7) k/cumm 6.30 Absolute Lymphocytes (1.2-3.4) k/cumm 1.24 Absolute Monocytes (0.11-0.7) k/cumm 1.34 H Absolute Eosinophils (0.0-0.7) k/cumm 0.10 Absolute Basophils (0.0-0.2) k/cumm 0.03 Sodium (136-145) mmol/L 138 Potassium (3.5-5.1) mmol/L 4.1 Chloride (98-107) mmol/L 101 Carbon Dioxide (21.0-32.0) mmol/L 26.5 Anion Gap (3-11) mmol/L 10.5 BUN (7-18) mg/dL 21 H Creatinine (0.70-1.30) mg/dL 1.01 Estimated GFR/1.73 m2 (mL/min/1.73m2) >= 60.00 Glucose (74-106) mg/dL 116 H Calcium (8.5-10.1) mg/dL 9.0 Magnesium (1.8-2.4) mg/dL 1.9 Total Bilirubin (0.2-1.0) mg/dL 0.6 AST (15-37) U/L 15 ALT (16-63) U/L 21 Alkaline Phosphatase (46-116) U/L 93 Troponin I (<0.06) ng/Ml < 0.05 NT-Pro-B Natriuret Pep (<300) pg/mL 99 Total Protein (6.4-8.2) g/dL 7.5 Albumin (3.4-5.0) g/dL 3.7 Urine Color (Yellow) Urine Clarity (Clear) Urine pH (5-8) Ur Specific [place] (1.005-1.025) Urine Protein (Negative) mg/dL Urine Ketones (Negative) mg/dL Urine Blood (Negative) Urine Nitrite (Negative) Urine Bilirubin (Negative) Urine Urobilinogen (Up TO 0.2) EU/dL Ur Leukocyte Esterase (Negative) Urine RBC (0-2) HPF Urine WBC (0-5) HPF Ur Epithelial Cells (Negative) HPF Urine Crystals (Negative) HPF Urine Bacteria (Negative) HPF Urine Casts (Negative) LPF Urine Mucus (Negative) Urine Other (Negative) Ur Culture Indicated? Urine Glucose (Negative) mg/dL Urine Opiates Screen (Negative) Urine Methadone Screen (Negative) Ur Barbiturates Screen (Negative) Ur Tricyclics Screen (Negative) Ur Amphetamines Screen (Negative) U Benzodiazepines Scrn (Negative) Urine Cocaine Screen (Negative) Ur THC Screen (Negative) Ethyl Alcohol (<3) mg/dL < 3.0 Range/Units 03/08/20 03/08/20 17:55 17:55 WBC (4.4-10.8) k/cumm RBC (4.50-6.00) m/cumm Hgb (13.5-17.5) g/dL Hct (40.0-50.0) % MCV (80-95) fL MCH (27.0-33.0) pg MCHC (32.0-36.0) g/dL RDW (11.8-14.1) % Plt Count (130-400) x1000/uL MPV (8.0-11.0) fL Immature Gran % % Neutrophils % Lymphocytes % Monocytes % Eosinophils % Basophils % Absolute Neutrophils (1.2-6.7) k/cumm Absolute Lymphocytes (1.2-3.4) k/cumm Absolute Monocytes (0.11-0.7) k/cumm Absolute Eosinophils (0.0-0.7) k/cumm Absolute Basophils (0.0-0.2) k/cumm Sodium (136-145) mmol/L Potassium (3.5-5.1) mmol/L Chloride (98-107) mmol/L Carbon Dioxide (21.0-32.0) mmol/L Anion Gap (3-11) mmol/L BUN (7-18) mg/dL Creatinine (0.70-1.30) mg/dL Estimated GFR/1.73 m2 (mL/min/1.73m2) Glucose (74-106) mg/dL Calcium (8.5-10.1) mg/dL Magnesium (1.8-2.4) mg/dL Total Bilirubin (0.2-1.0) mg/dL AST (15-37) U/L ALT (16-63) U/L Alkaline Phosphatase (46-116) U/L Troponin I (<0.06) ng/Ml NT-Pro-B Natriuret Pep (<300) pg/mL Total Protein (6.4-8.2) g/dL Albumin (3.4-5.0) g/dL Urine Color (Yellow) Devi Urine Clarity (Clear) Clear Urine pH (5-8) 6.0 Ur Specific [place] (1.005-1.025) >= 1.030 H Urine Protein (Negative) mg/dL 30 H Urine Ketones (Negative) mg/dL 40 H Urine Blood (Negative) Negative Urine Nitrite (Negative) Negative Urine Bilirubin (Negative) Moderate H Urine Urobilinogen (Up TO 0.2) EU/dL 0.2 Ur Leukocyte Esterase (Negative) Negative Urine RBC (0-2) HPF 0-2 Urine WBC (0-5) HPF 10-20 H Ur Epithelial Cells (Negative) HPF Negative Urine Crystals (Negative) HPF Negative Urine Bacteria (Negative) HPF Negative Urine Casts (Negative) LPF Negative Urine Mucus (Negative) Moderate Urine Other (Negative) Negative Ur Culture Indicated? Yes Urine Glucose (Negative) mg/dL Negative Urine Opiates Screen (Negative) Positive A Urine Methadone Screen (Negative) Negative Ur Barbiturates Screen (Negative) Negative Ur Tricyclics Screen (Negative) Negative Ur Amphetamines Screen (Negative) Negative U Benzodiazepines Scrn (Negative) Positive A Urine Cocaine Screen (Negative) Negative Ur THC Screen (Negative) Negative Ethyl Alcohol (<3) mg/dL HPI General Mode of arrival: ambulatory . Date/Time Provider Initiated Documentation: 03/08/20 14:47 . Limitations to Documentation: no limitations . Information obtained by: patient . HPI Narrative: Patient is a 54-year-old male with a history of former alcohol abuse and tobacco abuse, cardiomyopathy, COPD, CHF presents for generalized weakness, decreased appetite, cough, left-sided chest pain and shortness of breath over the last 5 days. He states he has felt feverish but has not taken his temperature. He does admit to recent falls with a left leg injury but is unsure of the specific details of the falls. He states he has ambulated without pain. He states he thinks he has hit his head as well. He denies any recent alcohol or drug use. He denies any vomiting, diarrhea, abdominal pain, urinary symptoms, back pain, recent travel, recent hospital admission, recent COVID testing or known exposure to coronavirus. He states he has not taken any of his medications for the past 5 days due to this generalized weakness. Related Data Home Medications Medication Instructions Recorded Confirmed bupropion HCl [Wellbutrin XL] 300 mg PO DAILY tab-cap 03/06/15 03/08/20 clonazepam [Klonopin] 1 mg PO PRN tab-cap 03/06/15 07/09/19 fluticasone propion-salmeterol 1 puff INHALATION BID disk 03/06/15 07/09/19 [Advair Diskus] hydrocodone-acetaminophen [Vicodin] 1 ea PO QID 03/06/15 07/09/19 prazosin 1 mg PO DAILY tab-cap 03/06/15 07/09/19 albuterol sulfate [ProAir HFA] 1 - 2 puff INHALATION Q4H PRN 09/27/15 07/09/19 inhaler nitroglycerin 0.4 mg SUBLINGUAL one every 5 07/27/17 03/08/20 mins. x3 #30 tab-cap spironolactone 25 mg tablet 12.5 mg PO DAILY #90 tab-cap 09/20/18 03/08/20 quetiapine 300 mg tablet 800 mg PO DAILY tab-cap 09/27/18 03/08/20 Combivent Respimat 1 puff IH Q6H #4 gm 11/26/18 07/09/19 furosemide 20 mg tablet 20 mg PO DAILY 30 Days #40 tab 04/28/19 07/09/19 lisinopril 10 mg tablet 10 mg PO DAILY #90 tab-cap 05/03/19 03/08/20 metoprolol succinate 25 mg 25 mg PO DAILY #90 tab 05/03/19 03/08/20 tablet,extended release 24 hr cefpodoxime 200 mg PO BID #10 tab 07/10/19 doxycycline hyclate 100 mg PO BID #10 cap 07/10/19 ipratropium-albuterol 3 ml UPD Q4H PRN #1 packet 07/10/19 prednisone 10 mg PO BID #45 tab 07/10/19 benztropine 03/08/20 03/08/20 montelukast mg 03/08/20 03/08/20 pravastatin 03/08/20 03/08/20 Previous Rx's Medication Instructions Recorded nitroglycerin 0.4 mg SUBLINGUAL one every 5 07/27/17 mins. x3 #30 tab-cap spironolactone 25 mg tablet 12.5 mg PO DAILY #90 tab-cap 09/20/18 Combivent Respimat 1 puff IH Q6H #4 gm 11/26/18 furosemide 20 mg tablet 20 mg PO DAILY 30 Days #40 tab 04/28/19 lisinopril 10 mg tablet 10 mg PO DAILY #90 tab-cap 05/03/19 metoprolol succinate 25 mg 25 mg PO DAILY #90 tab 05/03/19 tablet,extended release 24 hr cefpodoxime 200 mg PO BID #10 tab 07/10/19 doxycycline hyclate 100 mg PO BID #10 cap 07/10/19 ipratropium-albuterol 3 ml UPD Q4H PRN #1 packet 07/10/19 prednisone 10 mg PO BID #45 tab 07/10/19 Allergies Allergy/AdvReac Type Severity Reaction Status Date / Time citalopram Allergy Unverified 03/08/20 15:08 oxycodone HCl [From Percocet] AdvReac Addiction Unverified 03/08/20 15:08 General Stated Complaint: Chest Pain MOLLY: 2 Review of Systems All systems reviewed & are unremarkable except as noted in HPI and below Constitutional Constitutional: Reports as per HPI, Denies chills, Denies fever(s) and Reports weakness Eyes Eyes: Denies blurry vision ENT Ears, Nose, Mouth, and Throat: Denies dizziness, Denies sore throat and Denies t hroat swelling Cardiovascular Cardiovascular: Reports chest pain and Reports dyspnea Respiratory Respiratory: Denies cough and Reports dyspnea Gastrointestinal Gastrointestinal: Denies abdominal pain, Denies diarrhea and Denies vomiting Genitourinary Genitourinary: Denies hematuria and Denies dysuria Musculoskeletal Musculoskeletal: Denies back pain and Denies numbness Integumentary/Breasts Skin/Breast: Denies lesions and Denies rash Neurologic Neurologic: Denies dizziness, Denies localized weakness, Denies numbness and Reports weakness Allergic/Immunologic Allergic/Immunologic: Denies throat swelling [facility] Medical History Biventricular implantable cardioverter-defibrillator (ICD) in situ (Chronic) History of alcohol abuse (Resolved) History of tobacco abuse (Resolved) LBBB (left bundle branch block) (Chronic) Nonischemic dilated cardiomyopathy (Chronic) Severe chronic obstructive pulmonary disease (Chronic) Systolic and diastolic CHF, chronic (Chronic) Social History Smoking/Tobacco Use Status: Former Tobacco Use Quit Date: 10/25/15 Pack-years: 120 Alcohol Intake: former Drug use: Never Do you feel safe in your relationship?: Yes Exam Const General: cooperative, healthy appearing and no acute distress HENMT Head: normal to inspection Face and sinus: normal facial exam Eyes General: appearance normal, both eyes and all related structures Pupils: PERRL EOM: EOM intact bilaterally Neck Neck: normal visual inspection and No submandibular swelling Lymphatic: no lymphadenopathy noted Chest Chest: normal inspection of the chest and tenderness Chest/axillae images: 1. Tender to palpation. No crepitus or step off. Resp Effort & Inspection: normal respiratory effort and able to speak in complete sentences Auscultation: clear to auscultation bilaterally Cardio Rate: regular rate Rhythm: regular rhythm GI Inspection: normal to inspection Palpation: soft, not firm, not rigid and nontender Auscultation: normal bowel sounds Male General Exam: Yes normal external exam Back/Spine/Pelvis Thoracic/Lumbar Spine: thoracic and lumbar spine normal to inspection, No thoracic spinal tenderness and No lumbar spinal tenderness Pelvis: no pain with anterior-posterior compression and other (full rom ) Coccyx: other (full rom ) Skin General skin exam: no rashes or lesions noted Neuro General: patient alert, patient awake and patient oriented x3 Cognition: normal cognition Speech: speech normal Motor: muscle tone normal throughout Sensory Exam: no sensory deficits noted Extrem Upper/lower leg/hip images: 1. Ecchymoses and healing abrasions noted to anterior proximal leg. No erythema. No active bleeding. No deformity or step off. Psych Appearance: grossly normal Mental Status: mental status grossly normal Speech and Movement: speech and movement normal Affect: normal affect Course Vital Signs Vital signs: Vital Signs Temperature 99.0 F 03/08/20 14:38 Pulse 108 H 03/08/20 14:38 Respiratory Rate 16 03/08/20 14:38 Blood Pressure 111/78 03/08/20 14:38 Pulse Oximetry 100 03/08/20 14:38 Temperature 99.0 F 03/08/20 14:38 Temperature Source Skin 03/08/20 14:38 Pulse 108 H 03/08/20 14:38 Respiratory Rate 18 03/08/20 14:59 Respiratory Effort 03/08/20 14:59 Respiratory Depth Shallow 03/08/20 14:59 Respiratory Pattern Normal 03/08/20 14:59 Blood Pressure 111/78 03/08/20 14:38 Blood Pressure Position Sitting 03/08/20 14:38 Pulse Oximetry 100 03/08/20 14:38 Oxygen Delivery Method Nasal Cannula 03/08/20 14:38 Oxygen Flow Rate 4 03/08/20 14:38 Pain Level 9 03/08/20 14:59 Lab/Test Results Lab/Test Results: Laboratory Tests Range/Units 03/08/20 15:00 WBC (4.4-10.8) k/cumm 9.04 RBC (4.50-6.00) m/cumm 5.68 Hgb (13.5-17.5) g/dL 17.8 H Hct (40.0-50.0) % 52.8 H MCV (80-95) fL 93.0 MCH (27.0-33.0) pg 31.3 MCHC (32.0-36.0) g/dL 33.7 RDW (11.8-14.1) % 13.8 Plt Count (130-400) x1000/uL 202 MPV (8.0-11.0) fL 11.9 H Immature Gran % % 0.3 Neutrophils % 69.8 Lymphocytes % 13.7 Monocytes % 14.8 Eosinophils % 1.1 Basophils % 0.3 Absolute Neutrophils (1.2-6.7) k/cumm 6.30 Absolute Lymphocytes (1.2-3.4) k/cumm 1.24 Absolute Monocytes (0.11-0.7) k/cumm 1.34 H Absolute Eosinophils (0.0-0.7) k/cumm 0.10 Absolute Basophils (0.0-0.2) k/cumm 0.03
[2020-03-08] MEDS: Normal Saline 1,000 ML 1000 ML IV (15:39)
[2020-03-08 15:40] LABS: ALT 21 U/L (16-63); AST 15 U/L (15-37); Albumin 3.7 g/dL (3.4-5.0); Alkaline Phosphatase 93 U/L (46-116); Anion Gap 10.5 mmol/L (3-11); BUN 21 mg/dL (7-18); Bilirubin, Total 0.6 mg/dL (0.2-1.0); CO2 26.5 mmol/L (21.0-32.0); CREATININE 1.01 mg/dL (0.70-1.30); Chloride 101 mmol/L (98-107); Glucose 116 mg/dL (74-106); Magnesium 1.9 mg/dL (1.8-2.4); Potassium 4.1 mmol/L (3.5-5.1); Sodium 138 mmol/L (136-145); Total Protein 7.5 g/dL (6.4-8.2)
[2020-03-08 15:42] LABS: Troponin I < 0.05 ng/Ml (<0.06)
[2020-03-08 15:52] LABS: ETHANOL BLOOD < 3.0 mg/dL (<3)
[2020-03-08 16:04] LABS: NT-proBNP 99 pg/mL (<300)
[2020-03-08] MEDS: Omnipaque 350 MG/ML 100 ML BTL IJ (16:28)
[2020-03-08] MEDS: Normal Saline - Diluent 50 ML VIAL IV (16:28)
--- NOTE | 2020-03-08 16:38 | DI.VRAD_ITS ---
PROCEDURE INFORMATION: Exam: CT Head Without Contrast Exam date and time: 03/08/2020 3:36 PM Age: 54 years old Clinical indication: Other: S/P fall, altered mental status TECHNIQUE: Imaging protocol: Computed tomography of the head without contrast. Radiation optimization: All CT scans at this facility use at least one of these dose optimization techniques: automated exposure control; mA and/or kV adjustment per patient size (includes targeted exams where dose is matched to clinical indication); or iterative reconstruction. COMPARISON: No relevant prior studies available. FINDINGS: Brain: No intracranial hemorrhage or extra-axial fluid collection. No evidence of mass effect or midline shift. Montesinos-white matter differentiation is intact. Ventricles: No ventriculomegaly. Bones/joints: No acute osseus lesion or fracture. Sinuses: Unremarkable as visualized. Mastoid air cells: Unremarkable. Soft tissues: Unremarkable. IMPRESSION: No acute intracranial pathology. PROCEDURE INFORMATION: Exam: CT Cervical Spine Without Contrast Exam date and time: 03/08/2020 3:36 PM Age: 54 years old Clinical indication: Other: S/P fall, altered mental status TECHNIQUE: Imaging protocol: Computed tomography images of the cervical spine without contrast. Radiation optimization: All CT scans at this facility use at least one of these dose optimization techniques: automated exposure control; mA and/or kV adjustment per patient size (includes targeted exams where dose is matched to clinical indication); or iterative reconstruction. COMPARISON: No relevant prior studies available. FINDINGS: Limitations: Examination is limited by motion artifact. Vertebrae: Vertebral body heights are maintained. No locked or perched facets. Multilevel facet arthropathy. No acute cervical spine fracture. The dens is intact. Atlanto-axial intervals are normal. Discs/Spinal canal/Neural foramina: Multilevel degenerative changes with intervertebral disc height loss and osteophyte formation, with multilevel areas of mild canal stenosis. Soft tissues: Unremarkable. Lungs: Partially visualized bullous changes within the lung apices. IMPRESSION: 1. No acute cervical spine fracture. 2. Other chronic findings, as above. Dictated and Authenticated by: Ashutosh Escamilla MD. Ordering:THERON Saini MD
--- NOTE | 2020-03-08 16:45 | DI.VRAD_ITS ---
PROCEDURE INFORMATION: Exam: CT Angiography Chest With Contrast Exam date and time: 03/08/2020 4:18 PM Age: 54 years old Clinical indication: Other: L sided chest pain; Prior surgery; Surgery date: 6+ months TECHNIQUE: Imaging protocol: Computed tomographic angiography of the chest with intravenous contrast. 3D rendering: MIP and/or 3D reconstructed images were created by the technologist. Radiation optimization: All CT scans at this facility use at least one of these dose optimization techniques: automated exposure control; mA and/or kV adjustment per patient size (includes targeted exams where dose is matched to clinical indication); or iterative reconstruction. Contrast material: OMNIPAQUE 350; Contrast volume: 100 ml; Contrast route: IV; COMPARISON: No relevant prior studies available. FINDINGS: Tubes, catheters and devices: Left-sided cardiac pacemaker. Pulmonary arteries: No filling defects within the main, lobar, segmental, and subsegmental pulmonary arterial branches. Aorta: Mild atherosclerotic calcifications of the aorta. Lungs: Linear scarring versus atelectasis in the lingula. Centrilobular emphysematous changes of the lungs, with prominent biapical bullous changes. Pleural space: No pleural effusion or pneumothorax. Heart: Unremarkable. No pericardial effusion. Lymph nodes: No enlarged lymph nodes. Bones/joints: Acute nondisplaced left lateral 7th rib fracture (axial series 5, image 34). Mild degenerative changes of the visualized spine. Soft tissues: Unremarkable. IMPRESSION: 1. Acute nondisplaced left lateral 7th rib fracture. Correlate clinically with history of trauma. 2. Other chronic findings, as above. PROCEDURE INFORMATION: Exam: CT Abdomen And Pelvis With Contrast Exam date and time: 03/08/2020 4:18 PM Age: 54 years old Clinical indication: Other: L sided chest pain; Prior surgery; Surgery date: 6+ months TECHNIQUE: Imaging protocol: Computed tomography of the abdomen and pelvis with intravenous contrast. Radiation optimization: All CT scans at this facility use at least one of these dose optimization techniques: automated exposure control; mA and/or kV adjustment per patient size (includes targeted exams where dose is matched to clinical indication); or iterative reconstruction. Contrast material: OMNIPAQUE 350; Contrast volume: 100 ml; Contrast route: IV; COMPARISON: No relevant prior studies available. FINDINGS: Liver: Unremarkable. Gallbladder and bile ducts: Unremarkable. No ductal dilation. Pancreas: Unremarkable. No ductal dilation. Spleen: Unremarkable. Adrenals: Unremarkable. Kidneys and ureters: No hydronephrosis or stones. Stomach and bowel: Stomach is unremarkable. No small bowel obstruction. Large bowel is unremarkable. Appendix: No evidence of appendicitis. Intraperitoneal space: No pneumoperitoneum. No significant fluid collection. Vasculature: Atherosclerotic calcifications of the aorta and major branches. Lymph nodes: No enlarged lymph nodes. Bladder: Unremarkable. Reproductive: Unremarkable as visualized. Bones/joints: Multilevel mild degenerative changes of the visualized spine. No acute osseous lesion or fracture. Soft tissues: Small fat containing right inguinal hernia. Small fat containing left inguinal hernia. IMPRESSION: 1. No acute intra-abdominal findings. 2. Other chronic findings, as above. Dictated and Authenticated by: Ashutosh Escamilla MD. Ordering:THERON Saini MD
[2020-03-08] MEDS: Lidocaine 2% Jelly 6 ML SYR (17:43)
[2020-03-08] MEDS: Ketorolac 30 MG/ML VIAL IVP (18:02)
[2020-03-08] MEDS: Normal Saline Flush 10 ML SYR IVP ×2 (18:03→22:08)
[2020-03-08 18:06] LABS: Bilirubin Moderate (Negative); Blood Negative (Negative); Clarity Clear (Clear); Glucose Negative (Negative); Ketones 40 mg/dL (Negative); Leukocyte Esterase Negative (Negative); Nitrite Negative (Negative); Specific Gravity >= 1.030 (1.005-1.025); Urobilinogen 0.2 EU/dL (Up TO 0.2)
[2020-03-08 18:19] LABS: Bacteria Negative HPF (Negative); C & S Indicated? Yes; Casts Negative LPF (Negative); Crystals Negative HPF (Negative); Epithelial Cells Negative HPF (Negative); Mucus Moderate (Negative); Other Cells Negative (Negative); RBC 0-2 HPF (0-2)
[2020-03-08 18:26] LABS: *AMPHETAMINES SCREEN URINE Negative (Negative); *BARBITURATES SCREEN URINE Negative (Negative); *BENZODIAZEPINES SCREEN URINE POSITIVE (Negative); Cannabinoids THC Negative (Negative); Cocaine Screen,Urine Negative (Negative); METHADONE URINE SCREEN Negative (Negative); OPIATES URINE SCREEN POSITIVE (Negative)
[2020-03-08 18:34] LABS: Tricyclic Antidepressants Negative (Negative)
--- NOTE | 2020-03-08 19:02 | W.PM.HP.N ---
Date of service: 03/08/20 Time of Service: 19:02 Assessment and Plan Assessment and plan (1) Rib fracture: Status: Acute Assessment and plan: Rib fracture, presumably from fall though this is not certain. Also pyuria, probable UTI, perhaps this is responsible for the weakness he is reporting. The report to ER is that he has not been taking his meds for five days so I think we will need to clarify what he is actually prescribed, and would hold all pending. I do note UDS + benzos and opiates, and these are on his list, so clearly the report of not taking meds for 5 days is either not accurate, or he is tasking these on his own. Altogether I agree there are questions about his ability to manage independently at present and agree with admission to stabilize. Rib fracture: prn analgesics Pyuria: check C+S. empiric antibiotics Mental health, CHF, COPD: records History of Present Illness History of Present Illness Chief Complaint: CP, weakness Narrative: 54 male with unspecified psychiatric disorder, along with COPD and CHF. Here reporting he has felt weak and had a number ofn days left CP. Does not know if he fell; or rather says he tends to fall but does not know if there was anything specifically relating to the CP. At any rate w/u in ER of note for left 7th rib fx and pyuria. Otherwise afebrile, normal white count, paced rhythm and negative troponin. Patient appeared generally dishevelled, dry and with significant psychomotor retardation and did not appear safe to return home. Admitted for further management. Review of Systems All systems reviewed & are unremarkable except as noted in HPI and below PFSH Medical History Biventricular implantable cardioverter-defibrillator (ICD) in situ (Chronic) History of alcohol abuse (Resolved) History of tobacco abuse (Resolved) LBBB (left bundle branch block) (Chronic) Nonischemic dilated cardiomyopathy (Chronic) Severe chronic obstructive pulmonary disease (Chronic) Systolic and diastolic CHF, chronic (Chronic) Social History Smoking/Tobacco Use Status: Former Tobacco Use Quit Date: 10/25/15 Pack-years: 120 Alcohol Intake: former Drug use: Never Do you feel safe in your relationship?: Yes Meds Home Medications and Allergies Home Medications Medication Instructions Recorded Confirmed Type bupropion HCl [Wellbutrin XL] 300 mg PO DAILY tab-cap 03/06/15 03/08/20 History clonazepam [Klonopin] 1 mg PO PRN tab-cap 03/06/15 07/09/19 History fluticasone propion-salmeterol 1 puff INHALATION BID disk 03/06/15 07/09/19 History [Advair Diskus] hydrocodone-acetaminophen [Vicodin] 1 ea PO QID 03/06/15 07/09/19 History prazosin 1 mg PO DAILY tab-cap 03/06/15 07/09/19 History albuterol sulfate [ProAir HFA] 1 - 2 puff INHALATION Q4H PRN 09/27/15 07/09/19 History inhaler nitroglycerin 0.4 mg SUBLINGUAL one every 5 07/27/17 03/08/20 Rx mins. x3 #30 tab-cap spironolactone 25 mg tablet 12.5 mg PO DAILY #90 tab-cap 09/20/18 03/08/20 Rx quetiapine 300 mg tablet 800 mg PO DAILY tab-cap 09/27/18 03/08/20 History Combivent Respimat 1 puff IH Q6H #4 gm 11/26/18 07/09/19 Rx furosemide 20 mg tablet 20 mg PO DAILY 30 Days #40 tab 04/28/19 07/09/19 Rx lisinopril 10 mg tablet 10 mg PO DAILY #90 tab-cap 05/03/19 03/08/20 Rx metoprolol succinate 25 mg 25 mg PO DAILY #90 tab 05/03/19 03/08/20 Rx tablet,extended release 24 hr cefpodoxime 200 mg PO BID #10 tab 07/10/19 Rx doxycycline hyclate 100 mg PO BID #10 cap 07/10/19 Rx ipratropium-albuterol 3 ml UPD Q4H PRN #1 packet 07/10/19 Rx prednisone 10 mg PO BID #45 tab 07/10/19 Rx benztropine 03/08/20 03/08/20 History montelukast mg 03/08/20 03/08/20 History pravastatin 03/08/20 03/08/20 History Allergies Allergy/AdvReac Type Severity Reaction Status Date / Time citalopram Allergy Unverified 03/08/20 15:08 oxycodone HCl [From Percocet] AdvReac Addiction Unverified 03/08/20 15:08 Exam Narrative Exam Narrative: 120/79, 104, 16, 37.2, 96% RA. HEENT atraumatic; neck supple; lungs diminished; heart distant but RRR; abdomen soft and NT; no scrotal swelling, no penile d/c; extremities w/o edema; neuro: ox2, psychomotor retardation, moves all 4s Results Labs Result diagrams: 03/08/20 15:00 03/08/20 15:00 Labs: Laboratory Results - last 24 hr 03/08/20 03/08/20 03/08/20 15:00 15:00 15:00 WBC 9.04 RBC 5.68 Hgb 17.8 H Hct 52.8 H MCV 93.0 MCH 31.3 MCHC 33.7 RDW 13.8 Plt Count 202 MPV 11.9 H Immature Gran % 0.3 Neutrophils % 69.8 Lymphocytes % 13.7 Monocytes % 14.8 Eosinophils % 1.1 Basophils % 0.3 Absolute Neutrophils 6.30 Absolute Lymphocytes 1.24 Absolute Monocytes 1.34 H Absolute Eosinophils 0.10 Absolute Basophils 0.03 Sodium 138 Potassium 4.1 Chloride 101 Carbon Dioxide 26.5 Anion Gap 10.5 BUN 21 H Creatinine 1.01 Estimated GFR/1.73 m2 >= 60.00 Glucose 116 H Calcium 9.0 Magnesium 1.9 Total Bilirubin 0.6 AST 15 ALT 21 Alkaline Phosphatase 93 Troponin I < 0.05 NT-Pro-B Natriuret Pep 99 Total Protein 7.5 Albumin 3.7 Urine Color Urine Clarity Urine pH Ur Specific [place] Urine Protein Urine Ketones Urine Blood Urine Nitrite Urine Bilirubin Urine Urobilinogen Ur Leukocyte Esterase Urine RBC Urine WBC Ur Epithelial Cells Urine Crystals Urine Bacteria Urine Casts Urine Mucus Urine Other Ur Culture Indicated? Urine Glucose Urine Opiates Screen Urine Methadone Screen Ur Barbiturates Screen Ur Tricyclics Screen Ur Amphetamines Screen U Benzodiazepines Scrn Urine Cocaine Screen Ur THC Screen Ethyl Alcohol < 3.0 03/08/20 03/08/20 17:55 17:55 WBC RBC Hgb Hct MCV MCH MCHC RDW Plt Count MPV Immature Gran % Neutrophils % Lymphocytes % Monocytes % Eosinophils % Basophils % Absolute Neutrophils Absolute Lymphocytes Absolute Monocytes Absolute Eosinophils Absolute Basophils Sodium Potassium Chloride Carbon Dioxide Anion Gap BUN Creatinine Estimated GFR/1.73 m2 Glucose Calcium Magnesium Total Bilirubin AST ALT Alkaline Phosphatase Troponin I NT-Pro-B Natriuret Pep Total Protein Albumin Urine Color Devi Urine Clarity Clear Urine pH 6.0 Ur Specific [place] >= 1.030 H Urine Protein 30 H Urine Ketones 40 H Urine Blood Negative Urine Nitrite Negative Urine Bilirubin Moderate H Urine Urobilinogen 0.2 Ur Leukocyte Esterase Negative Urine RBC 0-2 Urine WBC 10-20 H Ur Epithelial Cells Negative Urine Crystals Negative Urine Bacteria Negative Urine Casts Negative Urine Mucus Moderate Urine Other Negative Ur Culture Indicated? Yes Urine Glucose Negative Urine Opiates Screen Positive A Urine Methadone Screen Negative Ur Barbiturates Screen Negative Ur Tricyclics Screen Negative Ur Amphetamines Screen Negative U Benzodiazepines Scrn Positive A Urine Cocaine Screen Negative Ur THC Screen Negative Ethyl Alcohol Last Vital Signs Temp 37.2 C 03/08/20 14:38 Pulse 101 H 03/08/20 15:46 Resp 16 03/08/20 15:50 BP 120/79 03/08/20 15:46 Pulse Ox 96 03/08/20 15:50 COVID-19 Screening In the past 14 days, have you traveled outside of [place] or [place]?: NO Had IN PERSON contact w/suspected or confirmed C-19 person: No
[2020-03-08] MEDS: cefTRIAXone 1 GM/50 ML BAG IVPB (19:45)
[2020-03-08] MEDS: Acetaminophen 325 MG TAB 650 MG PO (20:34)
[2020-03-08] MEDS: Lactated Ringers 1,000 ML 75 ML IV (22:08)
[2020-03-08] MEDS: oxyCODONE 5 MG TAB PO (22:54)
[2020-03-09] MEDS: oxyCODONE 5 MG TAB PO ×2 (06:40→10:32)
[2020-03-09 09:30] VITALS: BP 137/81; PULSE 86; RESP 25; TEMP 36.5; O2SAT 94
[2020-03-09] MEDS: Acetaminophen 325 MG TAB 650 MG PO (10:05)
[2020-03-09] MEDS: Albuterol HFA 8 GM 60 PUFF INH IH (10:06)
[2020-03-09] MEDS: Normal Saline Flush 10 ML SYR IVP ×2 (10:07→10:49)
[2020-03-09] MEDS: Lactated Ringers 1,000 ML 75 ML IV ×2 (10:07→22:34)
[2020-03-09] MEDS: Ketorolac 30 MG/ML VIAL IVP ×3 (10:47→21:04)
[2020-03-09] MEDS: Lidocaine 5% Patch 2 PATCH TP (10:48)
[2020-03-09 11:40] LABS: COVID-19 RT-PCR UVMMC Result Negative (Negative)
--- NOTE | 2020-03-09 12:00 | PHA.REVIEW ---
Pharmacy Admission Review - Admission Clinical Review (Last Updated 03/08/20 @ 19:52 by Amy Mancilla) Altered mental status (Acute) UTI (urinary tract infection) (Acute) Dehydration (Acute) Left rib fracture (Acute) Rib fracture (Acute) citalopram Allergy (Unverified 03/08/20 15:08) oxycodone HCl [From Percocet] Adverse Reaction (Unverified 03/08/20 15:08) Addiction Height 5 ft 7 in Weight 82.3 kg - Renal Dosing Renal Dosing: BUN 21 mg/dL (7-18) H 03/08/20 15:00 Creatinine 1.01 mg/dL (0.70-1.30) 03/08/20 15:00 Medications needing adjustments: Reviewed (Crcl ~76 mL/min current meds okay) - Anticoagulation Anticoagulation: Hgb 17.8 g/dL (13.5-17.5) H 03/08/20 15:00 Hct 52.8 % (40.0-50.0) H 03/08/20 15:00 Plt Count 202 x1000/uL (130-400) 03/08/20 15:00 Creatinine 1.01 mg/dL (0.70-1.30) 03/08/20 15:00 DVT Prohphylaxis: Intervened (asked SENIOR ORACLE DATABASE ADMINISTRATOR about this as pt has nothing ordered but was noted to have psychomotor retardation per H&P) Therapeutic Anticoagulation: N/A - Opiate Usage Evaluate Pain Scale/Pains Meds: Reviewed Scheduled Bowel Reg ordered if on Opiates?: No (will mention to SENIOR ORACLE DATABASE ADMINISTRATOR) - Relevant Labs Sodium 138 mmol/L (136-145) 03/08/20 15:00 Potassium 4.1 mmol/L (3.5-5.1) 03/08/20 15:00 Chloride 101 mmol/L (98-107) 03/08/20 15:00 Magnesium 1.9 mg/dL (1.8-2.4) 03/08/20 15:00 - DM Control DM Control: Glucose 116 mg/dL (74-106) H 03/08/20 15:00 Insulin Dosing: Reviewed - Heart Failure/MT Heart Failure/MT: Troponin I < 0.05 ng/Ml (<0.06) 03/08/20 15:00 NT-Pro-B Natriuret Pep 99 pg/mL (<300) 03/08/20 15:00 EF%, TEOFILO's, B-Blockers, Diuretics: Reviewed (lisinopril, metoprolol) - BP Control BP Control: Blood Pressure 137/81 If elevated: N/A - Qtc Review If Elevated: N/A (QTc 447) - IV to PO Switch IV Medications: N/A - Home Meds Home Med List reviewed: Reviewed (multiple anticholinergic meds: benztropine, ipratropium, quetiapine; recommeneded to avoid concurrent use of anticholinergic meds, if cannot avoid then monitor closely for anticholinergic-related toxicities. Multiple CODING MANAGER depressants: clonazepam, hydrocodone/APAP, quetiapine; recommended to avoid concomitant use when possible, when combined limit dosages/durations and monitor for adverse effects.) Relevent Home Meds Not ordered & why?: cefpodoxime, doxycycline, fluticasone/salmeterol, furosemide, nitroglycerin, prazosin, prednisone, spironolactone. SENIOR ORACLE DATABASE ADMINISTRATOR was working on getting updated med list for this patient, so unsure if pt. currently taking these. - Current meds Current Medication Order Review: Intervened (discontinued DI meds and adjusted ceftriaxone order to even hour, talked to SENIOR ORACLE DATABASE ADMINISTRATOR about adding BM meds) - Comments Comments/Follow Ups: SENIOR ORACLE DATABASE ADMINISTRATOR to order BM meds and talk to MD about anticoagulation. Watch for urine culture results. Antibiotic Activity - Pharmacy Antibiotic Review Pharmacy Antibiotic Activity: C/S review (Urine culture pending. Ceftriaxone was discontinued)
--- NOTE | 2020-03-09 12:26 | PGE_ITS ---
Date of Service Date of service: 03/09/20 Time of Service: 12:26 Assessment and Plan Assessment and plan (1) Rib fracture: Start date: 03/09/20 Start time: 13:02 Status: Acute Assessment and plan: After falling down stairs, he does not remember event. He does have confusion at times, he does state falling often, history of parkinsons, ICS ordered, lidoderm, toradol, and hydrocodone per home list. (2) COPD (chronic obstructive pulmonary disease): Start date: 03/09/20 Start time: 13:04 Status: Chronic Assessment and plan: Does not appear exacerbated at this time, LSC diminished on left side, he is requiring oxygen at this time, but due to rib fx not fully ventilating, ICS, mucinex, encourage deep breathing. Wean off oxygen, duo neb prn and albuterol prn. (3) Altered mental status: Start date: 03/09/20 Start time: 13:08 Status: Chronic Assessment and plan: Reviewing PCP records, this does not appear to be a new problem. He was seen by PCP in december for same concern. Consider weaning down medication that could be contributing to confusion. Will get psych consult. (4) UTI (urinary tract infection): Start date: 03/09/20 Start time: 13:09 Status: Ruled-out Assessment and plan: With no nitrates and no leuko estrase, only 20 wbc, this does not appear to be UTI, Will stop treatment. (5) Biventricular implantable cardioverter-defibrillator (ICD) in situ: Start date: 03/09/20 Start time: 13:10 Status: Chronic Assessment and plan: Maintain BB, TEOFILO and Diuretic for cardiac. (6) Systolic and diastolic CHF, chronic: Start date: 03/09/20 Start time: 13:10 Status: Chronic Assessment and plan: Does not appear to be volume overloaded at this time. See above Above case discussed with Dr. Christianson who is in agreement. Subjective Subjective Patient reports: other Interval history since last seen: Reviewed patient med list and notes from PCP office. It appears this is not new for the patient, weakness, inability to take care of himself. He appears to be on many medications that could contribute to falls. When asking questions he is despondent, he stares at the wall. In conversation only yes or no questions were asked, he was able to tell me he fell, he did not think it was after medication, otherwise nothing else was answered. I did receive a phone call from Mr. Rico Dover regarding patient history of events. Per Rico he has been paranoid over the last month or longer that someone is breaking into his home and making it a mess. He states William sits in the house all winter making flys for fishing or goes shooting with Rico, his house is a mess, he does not have food, or a stove. Recently rico purchased a burner so he could have meals however, William only makes coffee. Rico was concerned for condition of house and patient presentation stating he has been falling more and he has parkinsons. He also states that William has no money he cashed his 401 K and is now in trouble with the state. When asked about falling and injury patient stared at wall thinking and then stated yes I fell. After reviewing the PCP chart these behaviors do not appear new. He has had confusion for a little while now. He was able to say no to CP, SOB and his pain has been improved. I have consulted psychiatry regarding behavior. Exam Const General: cooperative, healthy appearing, no acute distress and other Nutritional Appearance: overweight Orientation: alert, awake and other Limitations: behavioral limitations Other: AA but delayed HENMT Head: normal to inspection, normocephalic and atraumatic Eyes Pupils: PERRL EOM: EOM intact bilaterally Neck Lymphatic: no lymphadenopathy noted and no lymphedema noted Chest Chest: normal inspection of the chest Resp Effort & Inspection: normal respiratory effort and able to speak in complete sentences Auscultation: clear to auscultation bilaterally Cardio Jugular venous pressure: no JVD Heart Sounds: S1 normal and S2 normal GI Inspection: normal to inspection Palpation: soft Auscultation: normal bowel sounds General: deferred Back/Spine/Pelvis Back: no CVA tenderness Thoracic/Lumbar Spine: thoracic and lumbar spine normal to inspection Skin Trauma: abrasion (left griffiths and right ankle, griffiths) Neuro General: patient alert, patient awake and moves all extremities Cranial Nerves: EOM intact bilaterally Extrem General: full ROM and no clubbing, cyanosis or edema Psych Appearance: disheveled Mental Status: other Speech and Movement: speech and movement normal Mood: other Affect: blunted Attitude: cooperative Thought Process: other Insight: poor Judgment: poor Objective Objective Clinical Data: Abnormal lab results 03/08/20 03/08/20 03/08/20 Range/Units 15:00 15:00 17:55 Hgb 17.8 H (13.5-17.5) g/dL Hct 52.8 H (40.0-50.0) % MPV 11.9 H (8.0-11.0) fL Absolute Monocytes 1.34 H (0.11-0.7) k/cumm BUN 21 H (7-18) mg/dL Glucose 116 H (74-106) mg/dL Ur Specific [place] (1.005-1.025) Urine Protein (Negative) mg/dL Urine Ketones (Negative) mg/dL Urine Bilirubin (Negative) Urine WBC (0-5) HPF Urine Opiates Screen Positive A (Negative) U Benzodiazepines Scrn Positive A (Negative) 03/08/20 Range/Units 17:55 Hgb (13.5-17.5) g/dL Hct (40.0-50.0) % MPV (8.0-11.0) fL Absolute Monocytes (0.11-0.7) k/cumm BUN (7-18) mg/dL Glucose (74-106) mg/dL Ur Specific [place] >= 1.030 H (1.005-1.025) Urine Protein 30 H (Negative) mg/dL Urine Ketones 40 H (Negative) mg/dL Urine Bilirubin Moderate H (Negative) Urine WBC 10-20 H (0-5) HPF Urine Opiates Screen (Negative) U Benzodiazepines Scrn (Negative) Vital Signs Temperature 36.5 C 03/09/20 09:30 Temperature Source Tympanic 03/09/20 09:30 Pulse 86 03/09/20 09:30 Pulse Rhythm Regular 03/09/20 10:07 Pulse 97 H 03/08/20 20:20 Respiratory Rate 25 H 03/09/20 09:30 Respiratory Effort Grunting 03/09/20 10:07 Respiratory Depth Shallow 03/09/20 10:07 Respiratory Pattern Tachypnea 03/09/20 10:07 Blood Pressure 137/81 03/09/20 09:30 Blood Pressure Mean 87 03/08/20 20:01 Blood Pressure Position Sitting 03/08/20 14:38 Pulse Oximetry 94 L 03/09/20 09:30 Oxygen Delivery Method Nasal Cannula 03/09/20 09:30 Oxygen Flow Rate 4.5 03/09/20 09:30 Pain Level 6 03/09/20 10:47 Intake & Output 03/08/20 03/09/20 03/09/20 23:59 11:59 23:59 Intake Total 1070 / 1070 898.75 / 898.75 Output Total 300 / 300 Balance 1070 / 1070 598.75 / 598.75 Weight 82.3 kg Intake: IV 1070 / 1070 898.75 / 898.75 Output: Urine 300 / 300 Other: Urine Color Light Devi Urine Appearance Clear Comment Reports voiding, flushed before viewed, Denies abnormality Voiding Methods Toilet Urinal Laboratory Results WBC 9.04 k/cumm (4.4-10.8) 03/08/20 15:00 RBC 5.68 m/cumm (4.50-6.00) 03/08/20 15:00 Hgb 17.8 g/dL (13.5-17.5) H 03/08/20 15:00 Hct 52.8 % (40.0-50.0) H 03/08/20 15:00 MCV 93.0 fL (80-95) 03/08/20 15:00 MCH 31.3 pg (27.0-33.0) 03/08/20 15:00 MCHC 33.7 g/dL (32.0-36.0) 03/08/20 15:00 RDW 13.8 % (11.8-14.1) 03/08/20 15:00 Plt Count 202 x1000/uL (130-400) 03/08/20 15:00 MPV 11.9 fL (8.0-11.0) H 03/08/20 15:00 Immature Gran % 0.3 % 03/08/20 15:00 Neutrophils % 69.8 03/08/20 15:00 Lymphocytes % 13.7 03/08/20 15:00 Monocytes % 14.8 03/08/20 15:00 Eosinophils % 1.1 03/08/20 15:00 Basophils % 0.3 03/08/20 15:00 Absolute Neutrophils 6.30 k/cumm (1.2-6.7) 03/08/20 15:00 Absolute Lymphocytes 1.24 k/cumm (1.2-3.4) 03/08/20 15:00 Absolute Monocytes 1.34 k/cumm (0.11-0.7) H 03/08/20 15:00 Absolute Eosinophils 0.10 k/cumm (0.0-0.7) 03/08/20 15:00 Absolute Basophils 0.03 k/cumm (0.0-0.2) 03/08/20 15:00 Sodium 138 mmol/L (136-145) 03/08/20 15:00 Potassium 4.1 mmol/L (3.5-5.1) 03/08/20 15:00 Chloride 101 mmol/L (98-107) 03/08/20 15:00 Carbon Dioxide 26.5 mmol/L (21.0-32.0) 03/08/20 15:00 Anion Gap 10.5 mmol/L (3-11) 03/08/20 15:00 BUN 21 mg/dL (7-18) H 03/08/20 15:00 Creatinine 1.01 mg/dL (0.70-1.30) 03/08/20 15:00 Estimated GFR/1.73 m2 >= 60.00 (mL/min/1.73m2) 03/08/20 15:00 Glucose 116 mg/dL (74-106) H 03/08/20 15:00 Calcium 9.0 mg/dL (8.5-10.1) 03/08/20 15:00 Magnesium 1.9 mg/dL (1.8-2.4) 03/08/20 15:00 Total Bilirubin 0.6 mg/dL (0.2-1.0) 03/08/20 15:00 AST 15 U/L (15-37) 03/08/20 15:00 ALT 21 U/L (16-63) 03/08/20 15:00 Alkaline Phosphatase 93 U/L (46-116) 03/08/20 15:00 Troponin I < 0.05 ng/Ml (<0.06) 03/08/20 15:00 NT-Pro-B Natriuret Pep 99 pg/mL (<300) 03/08/20 15:00 Total Protein 7.5 g/dL (6.4-8.2) 03/08/20 15:00 Albumin 3.7 g/dL (3.4-5.0) 03/08/20 15:00 Urine Color Devi (Yellow) 03/08/20 17:55 Urine Clarity Clear (Clear) 03/08/20 17:55 Urine pH 6.0 (5-8) 03/08/20 17:55 Ur Specific [place] >= 1.030 (1.005-1.025) H 03/08/20 17:55 Urine Protein 30 mg/dL (Negative) H 03/08/20 17:55 Urine Ketones 40 mg/dL (Negative) H 03/08/20 17:55 Urine Blood Negative (Negative) 03/08/20 17:55 Urine Nitrite Negative (Negative) 03/08/20 17:55 Urine Bilirubin Moderate (Negative) H 03/08/20 17:55 Urine Urobilinogen 0.2 EU/dL (Up TO 0.2) 03/08/20 17:55 Ur Leukocyte Esterase Negative (Negative) 03/08/20 17:55 Urine RBC 0-2 HPF (0-2) 03/08/20 17:55 Urine WBC 10-20 HPF (0-5) H 03/08/20 17:55 Ur Epithelial Cells Negative HPF (Negative) 03/08/20 17:55 Urine Crystals Negative HPF (Negative) 03/08/20 17:55 Urine Bacteria Negative HPF (Negative) 03/08/20 17:55 Urine Casts Negative LPF (Negative) 03/08/20 17:55 Urine Mucus Moderate (Negative) 03/08/20 17:55 Urine Other Negative (Negative) 03/08/20 17:55 Ur Culture Indicated? Yes 03/08/20 17:55 Urine Glucose Negative mg/dL (Negative) 03/08/20 17:55 Urine Opiates Screen Positive (Negative) A 03/08/20 17:55 Urine Methadone Screen Negative (Negative) 03/08/20 17:55 Ur Barbiturates Screen Negative (Negative) 03/08/20 17:55 Ur Tricyclics Screen Negative (Negative) 03/08/20 17:55 Ur Amphetamines Screen Negative (Negative) 03/08/20 17:55 U Benzodiazepines Scrn Positive (Negative) A 03/08/20 17:55 Urine Cocaine Screen Negative (Negative) 03/08/20 17:55 Ur THC Screen Negative (Negative) 03/08/20 17:55 Ethyl Alcohol < 3.0 mg/dL (<3) 03/08/20 15:00 COVID-19 PCR Negative (Negative) 03/08/20 15:53 Nasopharyn COVID-19 PCR Not Applicable 03/08/20 15:53 Ref Test Perform Site [facility] hospital lab 03/08/20 15:53
[2020-03-09] MEDS: Ipratropium/Albuterol 4 GM 120 PUFF INH IH ×2 (12:52→17:08)
--- NOTE | 2020-03-09 13:11 | PT.INNT ---
Date of service: 03/09/20 Time of Service: 13:11 PT Notes Visit Reasons: RIB FRACTURE, UTI Patient sleeping in bed unable to arouse. Nursing notes changes in pain medication, due to severe pain this morning. [place] it would be better for evaluation to occur tomorrow morning.
[2020-03-09] MEDS: Gabapentin 600 MG TAB PO ×2 (13:12→19:50)
[2020-03-09] MEDS: buPROPion-XL 150 MG TABCR 300 MG PO (13:12)
[2020-03-09] MEDS: Montelukast 10 MG TAB PO (13:13)
[2020-03-09] MEDS: Metoprolol CR 25 MG TABCR PO (13:13)
[2020-03-09] MEDS: Lisinopril 10 MG TAB PO (13:13)
[2020-03-09] MEDS: Heparin 5,000 UNITS/ML VIAL 5000 UNITS SC ×2 (13:14→21:05)
--- NOTE | 2020-03-09 14:39 | INITIAL_ITS ---
- If Service Date Differs Date of service: 03/09/20 Time of Service: 14:39 Care Management Initial Assess REASON FOR HOSPITALIZATION:: Rib fracture and UTI. PAST MEDICAL HISTORY/PAST SURGICAL HISTORY:: Medical/Surgical History: Biventricular implantable cardioverter-defibrillator (ICD) in situ; History of alcohol abuse; History of tobacco abuse; LBBB (left bundle branch block); Nonischemic dilated cardiomyopathy; Severe chronic obstructive pulmonary dis ease; and Systolic and diastolic CHF, chronic. PREVIOUS FUNCTIONAL STATUS/SOCIAL/FAMILY SUPPORTS:: William lives alone in a two story house in [place]. He is disabled and spends his time fishing, hunting, and woodworking. William shares he has a few friends he sees occasionally and states he has family nearby but is estranged from them. William reports he is independent with his ADLs, drives, and takes care of his home, but adds it is not as clean as it should be. He states he would love to have someone cook his meals and help clean his house. He further reports approximately 1 and 1/2 weeks ago, he began falling without warning and for no apparent reason. He shares his bedroom is on the second floor of the house and he recently fell down the 12 steps to the downstairs. CURRENT FUNCTIONAL STATUS:: William is lying in bed watching television when CM comes to meet with him. He is pleasant and readily engages in conversation. He openly answers questions asked of him. CM will continue to follow. ADVANCE DIRECTIVES:: None on file. Has patient been provided with information about the portal?: Yes CODE STATUS:: Full Code INSURANCE COVERAGE / FINANCIAL ISSUES:: Medicare. CURRENT HOME/COMMUNITY SERVICES/EQUIPMENT:: Mechelle Bridges aprn, of [facility] manages [facility] and he sees Toña Orosco for individual therapy. William denies any other home or community services and denies having any medical equipment. PRIMARY CARE PHYSICIAN:: DOMINIC Cuellar ([facility]). POTENTIAL DISCHARGE NEEDS:: Follow-up appointment with PCP, possible short-term rehab stay while he regains strength. PATIENT/FAMILY EDUCATION NEEDS:: Discharge instructions, limitations, plan of care, including Ask Me Three and self-management. ANTICIPATED BARRIERS TO DISCHARGE:: Patient's difficulty caring for himself at home. TRANSPORTATION:: Via private vehicle with a friend. PLAN:: Plan remains to be determined depending on William's willingness to consider short term rehab. CM will continue to support patient and discharge planning needs.
[2020-03-09 16:00] VITALS: BP 106/69; PULSE 85; RESP 19; TEMP 37.1; O2SAT 98
[2020-03-09] MEDS: guaiFENesin 600 MG TABCR PO (19:50)
[2020-03-09] MEDS: Docusate Sodium 100 MG CAP PO (19:51)
[2020-03-09] MEDS: Pravastatin 40 MG TAB PO (19:51)
[2020-03-09] MEDS: Benztropine 1 MG TAB PO (21:03)
[2020-03-09] MEDS: QUEtiapine 300 MG TAB 600 MG PO (21:04)
[2020-03-09] MEDS: QUEtiapine 100 MG TAB 200 MG PO (21:04)
[2020-03-09] MEDS: Lidocaine Patch Removal 2 EACH TD (21:05)
[2020-03-09 22:43] VITALS: BP 100/68; PULSE 90; RESP 18; TEMP 36.5; O2SAT 97
[2020-03-10] VITALS (137 sets, daily range): BP systolic 61–125; BP diastolic 34–90; PULSE 59–125; RESP 12–28; TEMP 36.6–37.1; O2SAT 88–97
[2020-03-10 01:24] LABS: HCT 39.8 % (40.0-50.0); HGB 13.2 g/dL (13.5-17.5); Mean Corp. HGB Concentration 33.2 g/dL (32.0-36.0); Mean Corpuscular Hemoglobin 31.5 pg (27.0-33.0); Mean Platelet Volume 11.6 fL (8.0-11.0); Platelet Count 143 x1000/uL (130-400); RBC 4.19 m/cumm (4.50-6.00); RBC Distribution Width 13.5 % (11.8-14.1); White Blood Cell Count 4.93 k/cumm (4.4-10.8)
[2020-03-10 01:37] LABS: Anion Gap 5.6 mmol/L (3-11); CO2 29.4 mmol/L (21.0-32.0); CREATININE 1.18 mg/dL (0.70-1.30); Calcium 8.1 mg/dL (8.5-10.1); Chloride 105 mmol/L (98-107); Glucose 111 mg/dL (74-106); Potassium 4.3 mmol/L (3.5-5.1); Sodium 140 mmol/L (136-145)
[2020-03-10] MEDS: Lactated Ringers 500 ML IV (01:52)
[2020-03-10] MEDS: Naloxone 0.4 MG/ML VIAL (01:53)
[2020-03-10 01:58] LABS: BUN 16 mg/dL (7-18)
--- NOTE | 2020-03-10 02:06 | PGE_ITS ---
Date of Service Date of service: 03/10/20 Time of Service: 02:06 Assessment and Plan Assessment and plan (1) Hypotension: Status: Acute Assessment and plan: Hypotension probably due to effects of medication. I suspect this is the effect of the high dose of quetiapine that was given about 3 hours prior to the drop in his blood pressure in conjunction with his antihypertensive medications and perhaps some continued relative dehydration. I do not think this represents sepsis, acute coronary syndrome, pulmonary embolism, acute hemorrhage given his prompt improvement with fluid bolus, recent imaging studies and relatively stable labs. His initial hemoglobin was probably hemoconcentrated to some degree. Continue to trend hemoglobin. At this point it does not appear he will need alpha agonist such as norepinephrine for supporting his blood pressure. Given his history of nonischemic cardiomyopathy I prefer not to be more aggressive with IV fluids at this point unless his blood pressure continues to dip downward. I am holding his lisinopril and spironolactone. I am holding his quetiapine until we can clarify whether or not he has been taking this regularly as an outpatient at the current dose. Continue to monitor in ICU until hemodynamically stable. Further diagnostic and/or treatment interventions will depend on his clinical course. (2) Altered mental status: Status: Acute Assessment and plan: Obtundation certainly a symptom of his low blood pressure but probably also because of the high dose of quetiapine he received earlier. His mental status has improved somewhat with improvement in blood pressure and administration of Narcan. The latter may have precipitated some withdrawal symptoms. Med changes as above. Clonazepam as needed as previously ordered acceptable to use if he has agitation and restlessness from opiate withdrawal. Subjective Subjective Interval history since last seen: Called to see patient because of obtundation and hypotension. Found on routine check to be unarousable with systolic blood pressure in the 60s. He received 800 mg of Seroquel about 2-1/2 hours prior to being discovered in this state. He had also received hydrocodone/acetaminophen earlier in the evening. It is not known if he regularly takes Seroquel at the dose administered this evening. His urine drug screen on presentation was posit karrie for opiates and benzodiazepines (I am unable to access his outpatient medication list at this time to determine what medications he has recently been prescribed.) Imaging studies from admission reviewed as well as labs. He has been receiving LR at 75 cc/h. He has not been febrile. Even with low blood pressure there was no dip in his oxygen saturation with supplemental oxygen. He has had no witnessed falls since arrival in the hospital. His blood and urine cultures remain negative. He has had no overt bleeding. He did not have any preceding complaints of increased shortness of breath or chest pain. He received a liter of lactated Ringer's and was transferred to the ICU prior to my arrival. He also was administered Narcan. His blood pressures have gone up into the 89-90 systolic range and he is becoming restless. He mumbles mostly unintelligible words in response to questions. He is moving all of his extremities. He has a paced rhythm on the monitor. EKG shows a paced rhythm with QT interval that is not prolonged. Exam Narrative Exam Narrative: Somnolent but arousable. Will move his hands, lift a leg or squeeze a finger on request. Pupils 2 mm with brief bilateral nystagmus. Restless with nonpurposeful movements of all extremities. No facial asymmetry. Cannot see his neck veins well because of his rendon. He has mid faint expiratory wheezing in all lung chand with symmetric breath sounds. Regular heart rhythm with soft heart tones no S3-S4 or murmur. Abdomen soft, bowel sounds diminished but they are present. No indication of pain with palpation of the abdomen. Extremities are warm but not flushed. 2+ pulses at the wrist 1+ at the feet. Abrasions on the shins. Objective Objective Clinical Data: Abnormal lab results Hemoglobin has dropped from 17.8 on admission which likely was somewhat hemoconcentrated to 13.2 03/10/20 03/10/20 Range/Units 01:10 01:10 RBC 4.19 L (4.50-6.00) m/cumm Hgb 13.2 L D (13.5-17.5) g/dL Hct 39.8 L D (40.0-50.0) % MPV 11.6 H (8.0-11.0) fL Glucose 111 H (74-106) mg/dL Calcium 8.1 L (8.5-10.1) mg/dL Vital Signs Temperature 36.6 C 03/10/20 00:40 Temperature Source Skin 03/10/20 00:40 Pulse 98 H 03/10/20 00:40 Pulse Rhythm Regular 03/09/20 16:45 Pulse 97 H 03/08/20 20:20 Respiratory Rate 20 03/10/20 00:40 Respiratory Effort 03/10/20 00:40 Respiratory Depth Shallow 03/09/20 16:45 Respiratory Pattern Irregular 03/09/20 16:45 Blood Pressure 61/42 L 03/10/20 00:40 Blood Pressure Mean 87 03/08/20 20:01 Blood Pressure Position Sitting 03/08/20 14:38 Pulse Oximetry 95 03/10/20 00:40 Oxygen Delivery Method Nasal Cannula 03/10/20 00:40 Oxygen Flow Rate 5 03/10/20 00:40 Pain Level 8 03/09/20 21:04 Intake & Output 03/09/20 03/09/20 03/10/20 11:59 23:59 11:59 Intake Total 898.75 / 2851.25 1952.50 / 2851.25 500 / 500 Output Total 300 / 600 300 / 600 Balance 598.75 / 2251.25 1652.50 / 2251.25 500 / 500 Intake: IV 898.75 / 2731.25 1832.50 / 2731.25 500 / 500 Oral 120 / 120 Output: Urine 300 / 600 300 / 600 Other: Urine Color Light Devi Yellow Urine Appearance Clear Cloudy Urine Odor Strong Comment output - 300 residual 82mls. Voiding Methods Urinal Toilet Urinal Laboratory Results WBC 4.93 k/cumm (4.4-10.8) 03/10/20 01:10 RBC 4.19 m/cumm (4.50-6.00) L 03/10/20 01:10 Hgb 13.2 g/dL (13.5-17.5) L D 03/10/20 01:10 Hct 39.8 % (40.0-50.0) L D 03/10/20 01:10 MCV 95.0 fL (80-95) 03/10/20 01:10 MCH 31.5 pg (27.0-33.0) 03/10/20 01:10 MCHC 33.2 g/dL (32.0-36.0) 03/10/20 01:10 RDW 13.5 % (11.8-14.1) 03/10/20 01:10 Plt Count 143 x1000/uL (130-400) 03/10/20 01:10 MPV 11.6 fL (8.0-11.0) H 03/10/20 01:10 Immature Gran % 0.3 % 03/08/20 15:00 Neutrophils % 69.8 03/08/20 15:00 Lymphocytes % 13.7 03/08/20 15:00 Monocytes % 14.8 03/08/20 15:00 Eosinophils % 1.1 03/08/20 15:00 Basophils % 0.3 03/08/20 15:00 Absolute Neutrophils 6.30 k/cumm (1.2-6.7) 03/08/20 15:00 Absolute Lymphocytes 1.24 k/cumm (1.2-3.4) 03/08/20 15:00 Absolute Monocytes 1.34 k/cumm (0.11-0.7) H 03/08/20 15:00 Absolute Eosinophils 0.10 k/cumm (0.0-0.7) 03/08/20 15:00 Absolute Basophils 0.03 k/cumm (0.0-0.2) 03/08/20 15:00 Sodium 140 mmol/L (136-145) 03/10/20 01:10 Potassium 4.3 mmol/L (3.5-5.1) 03/10/20 01:10 Chloride 105 mmol/L (98-107) 03/10/20 01:10 Carbon Dioxide 29.4 mmol/L (21.0-32.0) 03/10/20 01:10 Anion Gap 5.6 mmol/L (3-11) 03/10/20 01:10 BUN 16 mg/dL (7-18) 03/10/20 01:10 Creatinine 1.18 mg/dL (0.70-1.30) 03/10/20 01:10 Estimated GFR/1.73 m2 >= 60.00 (mL/min/1.73m2) 03/10/20 01:10 Glucose 111 mg/dL (74-106) H 03/10/20 01:10 Calcium 8.1 mg/dL (8.5-10.1) L 03/10/20 01:10 Magnesium 1.9 mg/dL (1.8-2.4) 03/08/20 15:00 Total Bilirubin 0.6 mg/dL (0.2-1.0) 03/08/20 15:00 AST 15 U/L (15-37) 03/08/20 15:00 ALT 21 U/L (16-63) 03/08/20 15:00 Alkaline Phosphatase 93 U/L (46-116) 03/08/20 15:00 Troponin I < 0.05 ng/Ml (<0.06) 03/08/20 15:00 NT-Pro-B Natriuret Pep 99 pg/mL (<300) 03/08/20 15:00 Total Protein 7.5 g/dL (6.4-8.2) 03/08/20 15:00 Albumin 3.7 g/dL (3.4-5.0) 03/08/20 15:00 Urine Color Devi (Yellow) 03/08/20 17:55 Urine Clarity Clear (Clear) 03/08/20 17:55 Urine pH 6.0 (5-8) 03/08/20 17:55 Ur Specific [place] >= 1.030 (1.005-1.025) H 03/08/20 17:55 Urine Protein 30 mg/dL (Negative) H 03/08/20 17:55 Urine Ketones 40 mg/dL (Negative) H 03/08/20 17:55 Urine Blood Negative (Negative) 03/08/20 17: Urine Nitrite Negative (Negative) 03/08/20 17:55 Urine Bilirubin Moderate (Negative) H 03/08/20 17:55 Urine Urobilinogen 0.2 EU/dL (Up TO 0.2) 03/08/20 17:55 Ur Leukocyte Esterase Negative (Negative) 03/08/20 17:55 Urine RBC 0-2 HPF (0-2) 03/08/20 17:55 Urine WBC 10-20 HPF (0-5) H 03/08/20 17:55 Ur Epithelial Cells Negative HPF (Negative) 03/08/20 17:55 Urine Crystals Negative HPF (Negative) 03/08/20 17:55 Urine Bacteria Negative HPF (Negative) 03/08/20 17:55 Urine Casts Negative LPF (Negative) 03/08/20 17:55 Urine Mucus Moderate (Negative) 03/08/20 17:55 Urine Other Negative (Negative) 03/08/20 17:55 Ur Culture Indicated? Yes 03/08/20 17:55 Urine Glucose Negative mg/dL (Negative) 03/08/20 17:55 Urine Opiates Screen Positive (Negative) A 03/08/20 17:55 Urine Methadone Screen Negative (Negative) 03/08/20 17:55 Ur Barbiturates Screen Negative (Negative) 03/08/20 17:55 Ur Tricyclics Screen Negative (Negative) 03/08/20 17:55 Ur Amphetamines Screen Negative (Negative) 03/08/20 17:55 U Benzodiazepines Scrn Positive (Negative) A 03/08/20 17:55 Urine Cocaine Screen Negative (Negative) 03/08/20 17:55 Ur THC Screen Negative (Negative) 03/08/20 17:55 Ethyl Alcohol < 3.0 mg/dL (<3) 03/08/20 15:00 COVID-19 PCR Negative (Negative) 03/08/20 15:53 Nasopharyn COVID-19 PCR Not Applicable 03/08/20 15:53 Ref Test Perform Site [facility] hospital lab 03/08/20 15:53
[2020-03-10] MEDS: clonazePAM 1 MG TAB PO (02:13)
[2020-03-10 04:07] LABS: Troponin I < 0.05 ng/Ml (<0.06)
[2020-03-10] MEDS: Heparin 5,000 UNITS/ML VIAL 5000 UNITS SC ×3 (05:34→20:52)
[2020-03-10] MEDS: Lactated Ringers 1,000 ML 1000 ML IV (06:23)
[2020-03-10 06:46] LABS: HCT 40.6 % (40.0-50.0); HGB 13.6 g/dL (13.5-17.5)
[2020-03-10 08:34] LABS: Bilirubin Negative (Negative); Blood Negative (Negative); Clarity Clear (Clear); Glucose Negative (Negative); Ketones Negative (Negative); Leukocyte Esterase Negative (Negative); Nitrite Negative (Negative); Specific Gravity 1.015 (1.005-1.025); Urobilinogen 0.2 EU/dL (Up TO 0.2); pH 6.5 (5-8)
[2020-03-10] MEDS: Polyethylene Glycol 3350 17 GM PACKET PO (10:58)
[2020-03-10] MEDS: Ketorolac 30 MG/ML VIAL IVP ×3 (10:59→20:51)
[2020-03-10] MEDS: guaiFENesin 600 MG TABCR PO ×2 (11:02→20:50)
[2020-03-10] MEDS: Normal Saline Flush 10 ML SYR IVP ×2 (11:02→15:21)
[2020-03-10] MEDS: Montelukast 10 MG TAB PO (11:03)
[2020-03-10] MEDS: Docusate Sodium 100 MG CAP PO ×2 (11:03→20:51)
[2020-03-10] MEDS: buPROPion-XL 150 MG TABCR 300 MG PO (11:03)
[2020-03-10] MEDS: Gabapentin 600 MG TAB PO ×2 (11:03→20:50)
[2020-03-10] MEDS: Omeprazole 20 MG CAPCR PO (11:03)
[2020-03-10] MEDS: Lidocaine 5% Patch 2 PATCH TP (11:03)
[2020-03-10] MEDS: Ipratropium/Albuterol 4 GM 120 PUFF INH IH ×2 (11:05→17:10)
--- NOTE | 2020-03-10 11:10 | PT.INNT ---
Date of service: 03/10/20 Time of Service: 11:10 PT Notes Visit Reasons: RIB FRACTURE, UTI Patient will require new order due to change in status transferring from [facility] to ICU.
[2020-03-10] MEDS: Lactated Ringers 1,000 ML 150 ML IV (11:53)
--- NOTE | 2020-03-10 14:24 | PDOC.CMPRO ---
- If Service Date Differs Date of service: 03/10/20 Time of Service: 14:24 Care Management Progress Note S/O: William was moved to the ICU during the early childhood special educator hours after being found unarousable with systolic blood pressure in the 60s. He has since improved and is sitting in a chair when CM comes to meet with him. He reports feeling better than he did yesterday, but continues to experience pain from the broken rib. We talk a bit about short-term rehab but William expresses a desire to return home. He shares he has fallen behind in his mortgage payments and needs to get home as soon as possible to take care of bills. He reports he has been unable to qualify for any assistance due to his monthly income, but is agreeable to allowing CM to outreach to community agencies to explore any options available for assistance. William states prior to becoming disabled in 2013, he worked for [employer] for 27 years. CM will continue to follow. A: William is a 54 year old male admitted to [facility] on 03/08/2020 for a rib fracture and UTI. P: Anticipate William will return home when medically cleared by provider. He will be driven home via private vehicle by a friend when ready. CM will continue to support patient and discharge planning considerations.
[2020-03-10] MEDS: Acetaminophen 325 MG TAB 650 MG PO (15:20)
--- NOTE | 2020-03-10 16:07 | W.PM.PROGNOT ---
Date of Service Date of service: 03/10/20 Time of Service: 16:07 Assessment and Plan Assessment and plan (1) Hypotension: Status: Acute Assessment and plan: Blood pressures have been somewhat soft. He continues on IV fluids. Urine output has been good. We are holding all antihypertension medications. At this point there does not appear to be an infectious etiology. He does not appear to be septic. He does have blood cultures pending and a urinalysis was repeated and is negative. (2) Altered mental status: Status: Acute Assessment and plan: A head CT overnight showed no significant abnormality. It sounds like he has been taking the Seroquel 800 mg at at bedtime recently and has never caused an unresponsive episode such as we witnessed. Nonetheless we are backing off of the Seroquel to 400 mg daily. Continue his other meds for now. Wednesday we hope to be able to get more information from [facility]. (3) COPD (chronic obstructive pulmonary disease): Status: Chronic Assessment and plan: Longstanding severe COPD. He is oxygenating well on 2 L. Avoiding steroids at this point. (4) UTI (urinary tract infection): Status: Ruled-out Assessment and plan: His initial UA in the emergency room showed a few white cells. The repeat UA today shows negative nitrites negative leukocyte esterace. Holding on any antibiotic therapy at this point. (5) Dehydration: Status: Acute Assessment and plan: He was severely dehydrated when he came in. He is still on IV fluids given his soft blood pressures. His renal function has remained stable. (6) Left rib fracture: Status: Acute Assessment and plan: He has splinting and pain on that left side. He is shallow breathing. He is working with the inspirometer. He has oral pain meds available PRN. (7) Biventricular implantable cardioverter-defibrillator (ICD) in situ: Status: Chronic Assessment and plan: The syncope he describes could be on the basis of an arrhythmia. We will ask cardiology to interrogate his ICD. It sounds like the device is nearing end-of-life. His tracing shows 100% ventricular pacing. (8) Syncope: Status: Chronic Assessment and plan: Syncope of unknown etiology. Will ask cardiology to see him given his history of cardiomyopathy and ICD placement in 2013. Subjective Subjective Interval history since last seen: Patient was moved to the intensive care unit overnight. He had an episode of unresponsiveness. He slept soundly until about 10 AM and then gradually woke up. He was able to eat his entire lunch. He has been more alert and interactive though dozes off easily. He is able to give a little more history. He states that the rib fracture occurred when he found himself at the bottom of his stairs. He cannot remember passing out or when it happened. He says he is passed out several times, each time at the top of his stairs. He had his ICD placed in 2013. He says he has to have the battery replaced next year. He cannot remember it being interrogated. He is never had it go off. He says he is compliant with his medications. He is able to describe taking the Seroquel, 2 tablets, at bedtime. He says it does make him groggy and sleep very well. He says he is med compliant. He is overall weak but cooperative and a little more alert today. Exam Narrative Exam Narrative: On exam he is all cleaned up thanks to the nurses. He had his hair washed and bedside bath. He will respond to questions though does not initiate any conversation. He is a little reluctant to talk. He has a mild cough but otherwise no respiratory distress. His lung sounds are quiet bilaterally. His heart sounds are regular with no significant murmur. His abdomen is quite rounded but overall soft and nontender. His lower extremities show no significant edema. He has an abrasion on his left knee and shins. These do not appear infected. The right leg has no lesions. He had a Friend catheter in place that was draining clear urine. Neurologically he moves upper and lower extremities with good purposeful movements. There is no focal weakness. He did get up to chair today but is overall systemically weak. Objective Objective Clinical Data: Abnormal lab results 03/10/20 03/10/20 Range/Units 01:10 01:10 RBC 4.19 L (4.50-6.00) m/cumm Hgb 13.2 L D (13.5-17.5) g/dL Hct 39.8 L D (40.0-50.0) % MPV 11.6 H (8.0-11.0) fL Glucose 111 H (74-106) mg/dL Calcium 8.1 L (8.5-10.1) mg/dL Vital Signs Temperature 37.1 C 03/10/20 15:27 Temperature Source Tympanic 03/10/20 15:27 Pulse 89 03/10/20 15:27 Pulse Rhythm Regular 03/10/20 08:08 Pulse 101 H 03/10/20 13:31 Respiratory Rate 18 03/10/20 15:27 Respiratory Effort 03/10/20 15:27 Respiratory Depth Normal 03/10/20 15:27 Respiratory Pattern Normal 03/10/20 15:27 Blood Pressure 93/64 L 03/10/20 15:27 Blood Pressure Mean 73 03/10/20 15:27 Blood Pressure Position Supine 03/10/20 15:27 Pulse Oximetry 94 L 03/10/20 15:27 Respiratory End-tidal CO2 39 03/10/20 01:37 Oxygen Delivery Method Nasal Cannula 03/10/20 11:18 Oxygen Flow Rate 1 03/10/20 11:18 Pain Level 6 03/10/20 15:27 Intake & Output 03/09/20 03/10/20 03/10/20 23:59 11:59 23:59 Intake Total 1952.50 / 2851.25 2500.0 / 3122.5 622.5 / 3122.5 Output Total 300 / 600 585 / 995 410 / 995 Balance 1652.50 / 2251.25 1915.0 / 2127.5 212.5 / 2127.5 Weight 82.3 kg Intake: IV 1832.50 / 2731.25 2500.0 / 2772.5 272.5 / 2772.5 Oral 120 / 120 350 / 350 Output: Urine 300 / 600 585 / 995 410 / 995 Other: Urine Color Yellow Yellow Yellow Urine Appearance Cloudy Clear Clear Urine Odor Strong Comment output - 300 residual 82mls. Stool Occult Blood Negative Stool Size Small Stool Characteristics Soft Formed Voiding Methods Toilet Urinal Laboratory Results WBC 4.93 k/cumm (4.4-10.8) 03/10/20 01:10 RBC 4.19 m/cumm (4.50-6.00) L 03/10/20 01:10 Hgb 13.6 g/dL (13.5-17.5) 03/10/20 06:05 Hct 40.6 % (40.0-50.0) 03/10/20 06:05 MCV 95.0 fL (80-95) 03/10/20 01:10 MCH 31.5 pg (27.0-33.0) 03/10/20 01:10 MCHC 33.2 g/dL (32.0-36.0) 03/10/20 01:10 RDW 13.5 % (11.8-14.1) 03/10/20 01:10 Plt Count 143 x1000/uL (130-400) 03/10/20 01:10 MPV 11.6 fL (8.0-11.0) H 03/10/20 01:10 Immature Gran % 0.3 % 03/08/20 15:00 Neutrophils % 69.8 03/08/20 15:00 Lymphocytes % 13.7 03/08/20 15:00 Monocytes % 14.8 03/08/20 15:00 Eosinophils % 1.1 03/08/20 15:00 Basophils % 0.3 03/08/20 15:00 Absolute Neutrophils 6.30 k/cumm (1.2-6.7) 03/08/20 15:00 Absolute Lymphocytes 1.24 k/cumm (1.2-3.4) 03/08/20 15:00 Absolute Monocytes 1.34 k/cumm (0.11-0.7) H 03/08/20 15:00 Absolute Eosinophils 0.10 k/cumm (0.0-0.7) 03/08/20 15:00 Absolute Basophils 0.03 k/cumm (0.0-0.2) 03/08/20 15:00 Sodium 140 mmol/L (136-145) 03/10/20 01:10 Potassium 4.3 mmol/L (3.5-5.1) 03/10/20 01:10 Chloride 105 mmol/L (98-107) 03/10/20 01:10 Carbon Dioxide 29.4 mmol/L (21.0-32.0) 03/10/20 01:10 Anion Gap 5.6 mmol/L (3-11) 03/10/20 01:10 BUN 16 mg/dL (7-18) 03/10/20 01:10 Creatinine 1.18 mg/dL (0.70-1.30) 03/10/20 01:10 Estimated GFR/1.73 m2 >= 60.00 (mL/min/1.73m2) 03/10/20 01:10 Glucose 111 mg/dL (74-106) H 03/10/20 01:10 Calcium 8.1 mg/dL (8.5-10.1) L 03/10/20 01:10 Magnesium 1.9 mg/dL (1.8-2.4) 03/08/20 15:00 Total Bilirubin 0.6 mg/dL (0.2-1.0) 03/08/20 15:00 AST 15 U/L (15-37) 03/08/20 15:00 ALT 21 U/L (16-63) 03/08/20 15:00 Alkaline Phosphatase 93 U/L (46-116) 03/08/20 15:00 Troponin I < 0.05 ng/Ml (<0.06) 03/10/20 01:10 NT-Pro-B Natriuret Pep 99 pg/mL (<300) 03/08/20 15:00 Total Protein 7.5 g/dL (6.4-8.2) 03/08/20 15:00 Albumin 3.7 g/dL (3.4-5.0) 03/08/20 15:00 Urine Color Yellow (Yellow) 03/10/20 07:30 Urine Clarity Clear (Clear) 03/10/20 07:30 Urine pH 6.5 (5-8) 03/10/20 07:30 Ur Specific [place] 1.015 (1.005-1.025) 03/10/20 07:30 Urine Protein Negative mg/dL (Negative) 03/10/20 07:30 Urine Ketones Negative mg/dL (Negative) 03/10/20 07:30 Urine Blood Negative (Negative) 03/10/20 07:30 Urine Nitrite Negative (Negative) 03/10/20 07:30 Urine Bilirubin Negative (Negative) 03/10/20 07:30 Urine Urobilinogen 0.2 EU/dL (Up TO 0.2) 03/10/20 07:30 Ur Leukocyte Esterase Negative (Negative) 03/10/20 07:30 Urine RBC 0-2 HPF (0-2) 03/08/20 17:55 Urine WBC 10-20 HPF (0-5) H 03/08/20 17:55 Ur Epithelial Cells Negative HPF (Negative) 03/08/20 17:55 Urine Crystals Negative HPF (Negative) 03/08/20 17:55 Urine Bacteria Negative HPF (Negative) 03/08/20 17:55 Urine Casts Negative LPF (Negative) 03/08/20 17:55 Urine Mucus Moderate (Negative) 03/08/20 17:55 Urine Other Negative (Negative) 03/08/20 17:55 Ur Culture Indicated? Yes 03/08/20 17:55 Urine Glucose Negative mg/dL (Negative) 03/10/20 07:30 Urine Opiates Screen Positive (Negative) A 03/08/20 17:55 Urine Methadone Screen Negative (Negative) 03/08/20 17:55 Ur Barbiturates Screen Negative (Negative) 03/08/20 17:55 Ur Tricyclics Screen Negative (Negative) 03/08/20 17:55 Ur Amphetamines Screen Negative (Negative) 03/08/20 17:55 U Benzodiazepines Scrn Positive (Negative) A 03/08/20 17:55 Urine Cocaine Screen Negative (Negative) 03/08/20 17:55 Ur THC Screen Negative (Negative) 03/08/20 17:55 Ethyl Alcohol < 3.0 mg/dL (<3) 03/08/20 15:00 COVID-19 PCR Negative (Negative) 03/08/20 15:53 Nasopharyn COVID-19 PCR Not Applicable 03/08/20 15:53 Ref Test Perform Site [facility] hospital lab 03/08/20 15:53
[2020-03-10] MEDS: Benztropine 1 MG TAB PO (20:50)
[2020-03-10] MEDS: Pravastatin 40 MG TAB PO (20:51)
[2020-03-10] MEDS: Lactated Ringers 1,000 ML 100 ML IV (20:52)
[2020-03-10] MEDS: Lidocaine Patch Removal 2 EACH TD (20:53)
[2020-03-11] VITALS (81 sets, daily range): BP systolic 97–163; BP diastolic 66–83; PULSE 66–120; RESP 14–35; TEMP 36.4–37.1; O2SAT 83–96
[2020-03-11] MEDS: Ipratropium/Albuterol 4 GM 120 PUFF INH IH ×5 (00:06→17:36)
[2020-03-11] MEDS: Acetaminophen 325 MG TAB 650 MG PO ×2 (00:21→07:31)
[2020-03-11] MEDS: QUEtiapine 300 MG, QUEtiapine 100 MG 400 MG PO ×2 (01:51→22:01)
[2020-03-11] MEDS: Ketorolac 30 MG/ML VIAL IVP ×2 (03:54→10:15)
[2020-03-11] MEDS: Lactated Ringers 1,000 ML 100 ML IV ×2 (06:22→06:26)
[2020-03-11 06:38] LABS: HCT 44.6 % (40.0-50.0); HGB 14.6 g/dL (13.5-17.5); Mean Corp. HGB Concentration 32.7 g/dL (32.0-36.0); Mean Corpuscular Hemoglobin 31.1 pg (27.0-33.0); Mean Corpuscular Volume 94.9 fL (80-95); Mean Platelet Volume 12.1 fL (8.0-11.0); Platelet Count 142 x1000/uL (130-400); RBC Distribution Width 13.7 % (11.8-14.1); White Blood Cell Count 4.12 k/cumm (4.4-10.8)
[2020-03-11 06:40] LABS: Anion Gap 4.3 mmol/L (3-11); BUN 10 mg/dL (7-18); CO2 31.7 mmol/L (21.0-32.0); CREATININE 0.91 mg/dL (0.70-1.30); Calcium 8.6 mg/dL (8.5-10.1); Chloride 107 mmol/L (98-107); Glucose 94 mg/dL (74-106); Potassium 3.7 mmol/L (3.5-5.1); Sodium 143 mmol/L (136-145)
[2020-03-11] MEDS: Heparin 5,000 UNITS/ML VIAL 5000 UNITS SC ×3 (06:47→22:03)
[2020-03-11] MEDS: Omeprazole 20 MG CAPCR PO (07:30)
[2020-03-11] MEDS: buPROPion-XL 150 MG TABCR 300 MG PO (07:30)
[2020-03-11] MEDS: Gabapentin 600 MG TAB PO ×3 (07:30→19:05)
[2020-03-11] MEDS: guaiFENesin 600 MG TABCR PO (07:30)
[2020-03-11] MEDS: Normal Saline Flush 10 ML SYR IVP ×3 (07:34→19:10)
[2020-03-11] MEDS: Lidocaine 5% Patch 2 PATCH TP (08:01)
[2020-03-11] MEDS: Montelukast 10 MG TAB PO (08:28)
--- NOTE | 2020-03-11 08:54 | PSYCO_ITS ---
Date of service: 03/11/20 Time of Service: 08:30 History of Present Illness Narrative: I did not see the patient but participated in team meeting this morning about treatment planning. Per team, his mental status is improving since low blood pressure and nonresponsiveness about 30 hours ago. He tends to be guarded but does talk freely with one nurse. He is awake and alert and cooperative at this time. Work up will include cardiology to interrogate his pacer, and rule out other reasons for falling. Apparently patient has been falling at home and he currently has a 7th rib fracture as a result of latest fall. Team find that in PCP notes he is reported to have Parkinson's but it is not clear if neurology has been involved. The team called local pharmacies to confirm his home med list which was restarted here in hospital and no further sedating medications were added for pain management. The report is that many of his home blister packs were still filled with pills suggesting he is not taking meds regularly. His psych provider is Mechelle Bridges NP at [facility]. Consults Consult date: 03/10/20 Requesting physician: Brittany Dickey Assessment and Plan Assessment and plan (1) Altered mental status: Status: Acute Assessment and plan: William Gay is a 54 year old male with past psychiatric history of care with [facility] for unknown to us diagnosis who was admitted 3 days ago post fall at home, rib fracture, dehydration, and question of failure to thrive at home. Had significant hypo tensive episode and unresponsiveness after receiving home doses of medication and quetiapine was reduced from 800mg home dose to 400mg as thought to be contributing to hypotension. He has improved since receiving IV fluids. He shows no signs of infection. On the differential for his current illness are cardiac, neurologic, psychiatric etiologies for his poor self-care and falls at home. Recommendations: - agree with cardiology consultation - call [facility] and get in touch with Mechelle Bridges NP regarding his medications and psychiatric history. She might know something about his parkinson's antipsychotic side effect related vs primary neurological problem. - talk with PCP for more information about his history of Parkinsonism. - consider neurology consultation to assess both for parkinson's and for dementia. This may be done as an outpatient depending on hospital course and information from production engineer track and PCP. I discussed my above recommendation with Jaime Christianson MD, Brittany Dickey NP, and the care team during the meeting by phone. I am happy to see the patient via Telemedicine with Care Management assistance on Wednesday between 9 and 10 or after 1pm if necessary for further evaluation of any acute psychiatric symptoms impeding discharge. Thank you very much for including me in the care of William Gay. [facility] Medical History (Updated 03/10/20 @ 16:13 by Jaime Christianson MD) Biventricular implantable cardioverter-defibrillator (ICD) in situ (Chronic) History of alcohol abuse (Resolved) History of tobacco abuse (Resolved) LBBB (left bundle branch block) (Chronic) Nonischemic dilated cardiomyopathy (Chronic) Pacemaker (Acute) Severe chronic obstructive pulmonary disease (Chronic) Systolic and diastolic CHF, chronic (Chronic) Social History Smoking/Tobacco Use Status: Former Tobacco Use Quit Date: 10/25/15 Pack-years: 120 Alcohol Intake: former Drug use: Never Do you feel safe in your relationship?: Yes Results Last Vital Signs Temp 36.8 C 03/11/20 07:20 Pulse 68 03/11/20 07:20 Resp 18 03/11/20 08:30 BP 137/78 03/11/20 07:17 Pulse Ox 87 L 03/11/20 08:30 Labs Result diagrams: 03/11/20 06:15 03/11/20 06:15 Labs: Laboratory Results - last 24 hr 03/11/20 03/11/20 06:15 06:15 WBC 4.12 L RBC 4.70 Hgb 14.6 Hct 44.6 MCV 94.9 MCH 31.1 MCHC 32.7 RDW 13.7 Plt Count 142 MPV 12.1 H Sodium 143 Potassium 3.7 Chloride 107 Carbon Dioxide 31.7 Anion Gap 4.3 BUN 10 D Creatinine 0.91 Estimated GFR/1.73 m2 >= 60.00 Glucose 94 Calcium 8.6
--- NOTE | 2020-03-11 09:51 | CMPROGNOTE_ITS ---
- If Service Date Differs Date of service: 03/11/20 Time of Service: 09:54 Care Management Progress Note S/O: William was sitting up in his chair eating his lunch when CM met with him. He was forthcoming with information regarding his living situation, past history and current concerns. William stated that he has a good relationship with Melanie and Toña at [facility]. He stated that CM could contact them for more detailed history. CM called and spoke to Melanie Bridges at [facility], who faxed a med list. William mentioned that he is having trouble paying his bills, which is due to disorganization rather than availability of funds. He also stated that he only eats one meal a day. He is unsure if he had already eaten when he fell down the stairs. CM faxed a referral to [facility] for options counseling and [facility]. William also stated that he arrived here with no shoes on, which CM will work on finding for him prior to discharge. CM will continue to follow. A: William is a 54 year old male admitted to [facility] on 03/08/2020 for a rib fracture and UTI. P: Anticipate William will return home when medically cleared by provider. He will be driven home via private vehicle by a friend when ready. He will resume services through [facility]. CM will continue to support patient and discharge planning considerations.
--- NOTE | 2020-03-11 11:03 | CCONE_ITS ---
Date of service: 03/11/20 Time of Service: 11:03 Assessment and Plan Assessment and plan (1) Biventricular implantable cardioverter-defibrillator (ICD) in situ: Status: Chronic Assessment and plan: 1. Biventricular ICD. Interrogation shows no history of significant ventricular or atrial arrhythmias either monitored or intervened upon. He is atrial sensed and ventricular paced about 99% of the time. Rate 75 bpm. No changes were made today. Battery longevity shows 21 months. ?No evidence of arrhythmia to explain syncopal episode. ?Patient will follow up with Dr. Scott as previously scheduled. Please contact cardiology with any further questions History of Present Illness History of Present Illness Chief Complaint: Pacemaker interrogation Narrative: Mr Gay is a 54-year-old male with past medical history significant for nonischemic cardiomyopathy. He has a Medtronic ICD with biventricular pacing. He was followed at [facility] by Dr. Scott. He presented with unexplained syncopal episode and cardiology was consulted for pacemaker interrogation. [facility] Medical History (Updated 03/10/20 @ 16:13 by Jaime Christianson MD) Biventricular implantable cardioverter-defibrillator (ICD) in situ (Chronic) History of alcohol abuse (Resolved) History of tobacco abuse (Resolved) LBBB (left bundle branch block) (Chronic) Nonischemic dilated cardiomyopathy (Chronic) Pacemaker (Acute) Severe chronic obstructive pulmonary disease (Chronic) Systolic and diastolic CHF, chronic (Chronic) Social History Smoking/Tobacco Use Status: Former Tobacco Use Quit Date: 10/25/15 Pack-years: 120 Alcohol Intake: former Drug use: Never Do you feel safe in your relationship?: Yes Results Last Vital Signs Temp 36.8 C 03/11/20 07:20 Pulse 68 03/11/20 07:20 Resp 16 03/11/20 09:59 BP 137/78 03/11/20 07:17 Pulse Ox 94 L 03/11/20 10:04 Labs Result diagrams: 03/11/20 06:15 03/11/20 06:15 Labs: Laboratory Results - last 24 hr 03/11/20 03/11/20 06:15 06:15 WBC 4.12 L RBC 4.70 Hgb 14.6 Hct 44.6 MCV 94.9 MCH 31.1 MCHC 32.7 RDW 13.7 Plt Count 142 MPV 12.1 H Sodium 143 Potassium 3.7 Chloride 107 Carbon Dioxide 31.7 Anion Gap 4.3 BUN 10 D Creatinine 0.91 Estimated GFR/1.73 m2 >= 60.00 Glucose 94 Calcium 8.6
[2020-03-11] MEDS: Budesonide/Formoterol 160/4.5 6 GM 60 PUFF INH IH ×2 (12:45→19:04)
--- NOTE | 2020-03-11 14:33 | W.PM.PROGNOT ---
Date of Service Date of service: 03/11/20 Time of Service: 14:34 Assessment and Plan Assessment and plan (1) Syncope: Status: Chronic Assessment and plan: The cause of his syncope is still unknown. His ICD showed no abnormal rhythms or discharges. His telemetry here shows 100% ventricularly paced rhythm. His eating pattern may lead to some episodes of hypoglycemia. He could have experienced orthostatic hypotension from hypovolemia. There could be an autonomic response to some of his psychiatric medications. At this point it does not look like we were going to be able to replicate or observe any of the events that led to his syncope and rib fracture. (2) Hypotension: Status: Acute Assessment and plan: Blood pressures have stabilized with hydration. Will DC IV fluids. Restart Toprol-XL 25 mg daily. (3) Left rib fracture: Status: Acute Assessment and plan: Rib pain is stable. He is still splinting and shallow breathing. Continue the inspirometer. Continue analgesics. (4) Dehydration: Status: Acute Assessment and plan: Markedly dehydrated on presentation. Further history reveals he had not been eating or drinking for about 4 days because of his rib fracture. His friend could tell that something was wrong and encouraged him to come to the emergency room. He is fluid replete. (5) Altered mental status: Status: Acute Assessment and plan: Mental status appears to be back at baseline from what we can gather from his PCP and mental health. Melanie Dowling agrees with cutting back the Seroquel to 400 mg daily. Will restart the Trintellix at 20 mg daily. Increase gabapentin back up to 600 mg 3 times daily. (6) COPD (chronic obstructive pulmonary disease): Status: Chronic Assessment and plan: Severe COPD at baseline. His oxygen saturation appears to be stabilizing at around 90% on room air. Will tolerate sats down to 88%. Resume his usual inhalers. (7) Biventricular implantable cardioverter-defibrillator (ICD) in situ: Status: Chronic Assessment and plan: His ICD was interrogated today. There is no abnormality. He has 20 months left of battery life. Further follow-up with Dr. Scott. Subjective Subjective Interval history since last seen: Patient is feeling much better. His appetite is good. He is much more alert and awake and interactive today. He still complaining of severe left-sided chest discomfort with deep inspiration and movement of his left arm. He is working with the inspirometer. Minimal cough, no shortness of breath, he still is taking somewhat shallow respirations. We have contacted [facility], Melanie Dowling NP, regarding his psychiatric medications. She has recently started him on Trintellix and Rexulti. Patient believes her goal was to eventually titrate down and discontinue the Seroquel. Patient again reiterates that he is compliant with his medications. Only when there is a mixup at the pharmacy does he miss medications. Care management has gotten further information on his social situation. He generally purchases 1 meal a day at the [employer]. He states he has been doing this for years. He does not believe he is ever had low blood sugars. The cause of his syncope is still unknown. He does state he was in bed for 4 days which is why he was dehydrated on admission. He had his ICD interrogated by Dr. Thurston. There was no abnormality noted. There have been no discharges. Office records from [facility] and [facility] were obtained. His med list was adjusted. Exam Narrative Exam Narrative: On exam he is much more alert and interactive today. He has facial expressions. He still very quiet and a bit guarded. He had no respiratory distress. He does have shallow breathing. His lung sounds are quiet on the right and left. No adventitial breath sounds. No rales. Heart sounds are rapid and regular. No significant murmur. Abdomen is soft and nontender. He still very tender along the left lateral rib cage. No bruising is seen. Lower extremities no significant edema. He is very mildly edematous in his hands. Objective Objective Clinical Data: Abnormal lab results 03/11/20 Range/Units 06:15 WBC 4.12 L (4.4-10.8) k/cumm MPV 12.1 H (8.0-11.0) fL Vital Signs Temperature 36.4 C L 03/11/20 13:02 Temperature Source Temporal Artery Scan 03/11/20 13:02 Pulse 68 03/11/20 07:20 Pulse Rhythm Regular 03/10/20 08:08 Pulse 97 H 03/11/20 10:00 Respiratory Rate 19 03/11/20 10:00 Respiratory Effort 03/11/20 13:02 Respiratory Depth Shallow 03/11/20 13:02 Respiratory Pattern Normal 03/11/20 13:02 Blood Pressure 137/78 03/11/20 07:17 Blood Pressure Mean 92 03/11/20 07:17 Blood Pressure Position Supine 03/11/20 04:23 Pulse Oximetry 89 L 03/11/20 13:03 Respiratory End-tidal CO2 39 03/10/20 01:37 Oxygen Delivery Method Room Air 03/11/20 13:03 Oxygen Flow Rate 0 03/11/20 13:03 Pain Level 9 03/11/20 13:17 Intake & Output 03/10/20 03/11/20 03/11/20 23:59 11:59 23:59 Intake Total 1852.5 / 4352.5 2696.667 / 2936.667 240 / 2936.667 Output Total 1160 / 1745 1201 / 1201 Balance 692.5 / 2607.5 1495.667 / 1735.667 240 / 1735.667 Weight 83.4 kg Intake: IV 1002.5 / 3502.5 1976.667 / 1975.667 Oral 850 / 850 720 / 960 240 / 960 Output: Urine 1160 / 1745 1200 / 1200 Stool Other: Urine Color Yellow Yellow Urine Appearance Clear Clear Urine Odor None None Comment vd with bm No issues per report. Patient has not voided this shift Stool Occult Blood Negative Negative Stool Size Small Large Stool Characteristics Soft Soft Formed Formed Brown Voiding Methods Bedside Commode Laboratory Results WBC 4.12 k/cumm (4.4-10.8) L 03/11/20 06:15 RBC 4.70 m/cumm (4.50-6.00) 03/11/20 06:15 Hgb 14.6 g/dL (13.5-17.5) 03/11/20 06:15 Hct 44.6 % (40.0-50.0) 03/11/20 06:15 MCV 94.9 fL (80-95) 03/11/20 06:15 MCH 31.1 pg (27.0-33.0) 03/11/20 06:15 MCHC 32.7 g/dL (32.0-36.0) 03/11/20 06:15 RDW 13.7 % (11.8-14.1) 03/11/20 06:15 Plt Count 142 x1000/uL (130-400) 03/11/20 06:15 MPV 12.1 fL (8.0-11.0) H 03/11/20 06:15 Immature Gran % 0.3 % 03/08/20 15:00 Neutrophils % 69.8 03/08/20 15:00 Lymphocytes % 13.7 03/08/20 15:00 Monocytes % 14.8 03/08/20 15:00 Eosinophils % 1.1 03/08/20 15:00 Basophils % 0.3 03/08/20 15:00 Absolute Neutrophils 6.30 k/cumm (1.2-6.7) 03/08/20 15:00 Absolute Lymphocytes 1.24 k/cumm (1.2-3.4) 03/08/20 15:00 Absolute Monocytes 1.34 k/cumm (0.11-0.7) H 03/08/20 15:00 Absolute Eosinophils 0.10 k/cumm (0.0-0.7) 03/08/20 15:00 Absolute Basophils 0.03 k/cumm (0.0-0.2) 03/08/20 15:00 Sodium 143 mmol/L (136-145) 03/11/20 06:15 Potassium 3.7 mmol/L (3.5-5.1) 03/11/20 06:15 Chloride 107 mmol/L (98-107) 03/11/20 06:15 Carbon Dioxide 31.7 mmol/L (21.0-32.0) 03/11/20 06:15 Anion Gap 4.3 mmol/L (3-11) 03/11/20 06:15 BUN 10 mg/dL (7-18) D 03/11/20 06:15 Creatinine 0.91 mg/dL (0.70-1.30) 03/11/20 06:15 Estimated GFR/1.73 m2 >= 60.00 (mL/min/1.73m2) 03/11/20 06:15 Glucose 94 mg/dL (74-106) 03/11/20 06:15 Calcium 8.6 mg/dL (8.5-10.1) 03/11/20 06:15 Magnesium 1.9 mg/dL (1.8-2.4) 03/08/20 15:00 Total Bilirubin 0.6 mg/dL (0.2-1.0) 03/08/20 15:00 AST 15 U/L (15-37) 03/08/20 15:00 ALT 21 U/L (16-63) 03/08/20 15:00 Alkaline Phosphatase 93 U/L (46-116) 03/08/20 15:00 Troponin I < 0.05 ng/Ml (<0.06) 03/10/20 01:10 NT-Pro-B Natriuret Pep 99 pg/mL (<300) 03/08/20 15:00 Total Protein 7.5 g/dL (6.4-8.2) 03/08/20 15:00 Albumin 3.7 g/dL (3.4-5.0) 03/08/20 15:00 Urine Color Yellow (Yellow) 03/10/20 07:30 Urine Clarity Clear (Clear) 03/10/20 07:30 Urine pH 6.5 (5-8) 03/10/20 07:30 Ur Specific [place] 1.015 (1.005-1.025) 03/10/20 07:30 Urine Protein Negative mg/dL (Negative) 03/10/20 07:30 Urine Ketones Negative mg/dL (Negative) 03/10/20 07:30 Urine Blood Negative (Negative) 03/10/20 07:30 Urine Nitrite Negative (Negative) 03/10/20 07:30 Urine Bilirubin Negative (Negative) 03/10/20 07:30 Urine Urobilinogen 0.2 EU/dL (Up TO 0.2) 03/10/20 07:30 Ur Leukocyte Esterase Negative (Negative) 03/10/20 07:30 Urine RBC 0-2 HPF (0-2) 03/08/20 17:55 Urine WBC 10-20 HPF (0-5) H 03/08/20 17:55 Ur Epithelial Cells Negative HPF (Negative) 03/08/20 17:55 Urine Crystals Negative HPF (Negative) 03/08/20 17:55 Urine Bacteria Negative HPF (Negative) 03/08/20 17:55 Urine Casts Negative LPF (Negative) 03/08/20 17:55 Urine Mucus Moderate (Negative) 03/08/20 17:55 Urine Other Negative (Negative) 03/08/20 17:55 Ur Culture Indicated? Yes 03/08/20 17:55 Urine Glucose Negative mg/dL (Negative) 03/10/20 07:30 Urine Opiates Screen Positive (Negative) A 03/08/20 17:55 Urine Methadone Screen Negative (Negative) 03/08/20 17:55 Ur Barbiturates Screen Negative (Negative) 03/08/20 17:55 Ur Tricyclics Screen Negative (Negative) 03/08/20 17:55 Ur Amphetamines Screen Negative (Negative) 03/08/20 17:55 U Benzodiazepines Scrn Positive (Negative) A 03/08/20 17:55 Urine Cocaine Screen Negative (Negative) 03/08/20 17:55 Ur THC Screen Negative (Negative) 03/08/20 17:55 Ethyl Alcohol < 3.0 mg/dL (<3) 03/08/20 15:00 COVID-19 PCR Negative (Negative) 03/08/20 15:53 Nasopharyn COVID-19 PCR Not Applicable 03/08/20 15:53 Ref Test Perform Site [facility] hospital lab 03/08/20 15:53
--- NOTE | 2020-03-11 14:34 | W.NUTRFU ---
Date of service: 03/11/20 Time of Service: 14:34 Nutritional Follow up NOTE: 54 year old male admitted to ICU with AMS, syncope with rib fracture. PMH: COPD, CHF, psych disorder. Following regular meal plan with excellent intake (typically 100%). Not at nutritional risk at this time. will follow prn Time Spent in Nutritional Counseling and Treatment: 0 time
[2020-03-11] MEDS: Metoprolol CR 25 MG TABCR PO (15:08)
[2020-03-11] MEDS: Furosemide 20 MG TAB PO (15:08)
--- NOTE | 2020-03-11 16:25 | PT.INNT ---
Date of service: 03/11/20 PT Notes Visit Reasons: RIB FRACTURE, UTI Awaiting new referral from MD for PT re-evaluation under ICU level.
[2020-03-11] MEDS: Docusate Sodium 100 MG CAP PO (19:05)
[2020-03-11] MEDS: Pravastatin 20 MG TAB PO (19:05)
[2020-03-11] MEDS: Lidocaine Patch Removal 2 EACH TD ×2 (22:00)
[2020-03-11] MEDS: Benztropine 1 MG TAB PO (22:01)
[2020-03-12] VITALS (46 sets, daily range): BP systolic 93–158; BP diastolic 60–83; PULSE 76–97; RESP 1–26; TEMP 36.3–36.8; O2SAT 85–94
--- NOTE | 2020-03-12 | DI.US_ITS ---
APPROVED REPORT EXAM: Comprehensive 2D, Doppler, and color-flow Echocardiogram Patient Location: In-Patient Room/Bed: ICU [address] Manager: Bina Giordano RDCS (AE) Indications: Syncope Other Information Study Quality: Good Conclusion Left Ventricle : The left ventricle is normal size. There is normal left ventricular wall thickness. There is normal LV segmental wall motion. The left ventricular diastolic function is normal. LVEF is 45-50%. Left ventricular systolic function is mildly decreased. Right Ventricle : The right ventricle is normal size. The right ventricular systolic function is norm al. The RVSP is 36.8 mmHg. Atria : The left atrium size is normal. The right atrium size is normal. Valves: There are no hemodynamically significant valvular lesions. Great Vessels : IVC is normal in size and collapses >50% with inspiration. Compared to echocardiogram dated 11/08/2017: There is no significant change. Wall motion Left Ventricle The left ventricle is normal size. Left ventricular systolic function is mildly decreased. There is n ormal left ventricular wall thickness. There is normal LV segmental wall motion. The left ventricular diastolic function is normal. There is no ventricular septal defect visualized. LVEF is 45-50%. Right Ventricle The right ventricle is normal size. The right ventricular systolic function is normal. The RVSP is 36 .8 mmHg. Device lead is present in the right ventricle. Atria The left atrium size is normal. The right atrium size is normal. The interatrial septum is intact wit h no evidence for an atrial septal defect. Aortic Valve The aortic valve is not well visualized. Aortic valve is probably trileaflet. There is no aortic valv ular stenosis. No aortic regurgitation is present. Mitral Valve There is mitral annular calcification. No evidence of mitral valve stenosis. Trace mitral regurgitati on. Tricuspid Valve The tricuspid valve is normal in structure. There is no tricuspid valve stenosis. Trace tricuspid reg urgitation. Pulmonic Valve Pulmonic valve is not well visualized. There is no pulmonic valvular stenosis. There is no pulmonic v alvular regurgitation. Great Vessels The aortic root is normal in size. The ascending aorta is normal in size. Aortic arch is not well vis ualized. IVC is normal in size and collapses >50% with inspiration. Pericardium There is no pericardial effusion. There is no pleural effusion. 2D Dimensions IVSD d PLAX 0.91 cm M: 0.6-1.2 LV Vol A2C d MOD 102.7 mL LVPW d PLAX 0.97 cm M: 0.6 - 1.2 LV Vol A4C d MOD 88.3 mL LVID d PLAX 4.49 cm M: 4.2 - 5.8 LA vol/ BSA A2C s A-L 20.7 mL/m2 LVDs 3.50 cm M: 2.5 - 4.0 LA vol/ BSA A4C s A-L 19.6 mL/m2 Ao Root d 2.57 cm M: 3.1 - 3.7 LA Vol/ BSA Biplane s A-L 20.7 mL/m2 RA Area A4C 12.96 cm2 LA Area A4C s MOD 14.52 cm2 RA Vol/ BSA A4C s A-L 15.8 mL/m2 LA Area A2C s MOD 15.35 cm2 Ao Asc Diam d 2.82 cm M: 2.6 - 3.4 LV EF A4C MOD 48.6 % LV EF Teichholz 44.3 % LV EF A2C MOD 47.8 % LVEF (Richards's) 48.04 % M: 52 - 72 LV EF Biplane MOD 48.0 % LV Volume 72.62 mL M: 62 - 150 SV 46.50 mL LV Volume Index 36.31 mL/m2 M: 34 - 74 SV Index 23.22 mL/m2 LV Vol Biplane MOD 96.9 mL FS 21.80 % M-Mode TAPSE 2.60 cm (M/F) >1.7 LV Diastology MV E' medial 0.091 (>0.07 m/s) E/A Ratio 0.9 LV E/e MED 7.80 (<14) MV E Vmax 0.71 (0.4-1.3 m/s) MV E' lateral 0.115 (>0.1 m/s) MV A Vmax 0.75 (0.4-1.3 m/s) LV E/e LAT 6.15 (<14) MV E/A Ratio 0.93 MV E/E' medial 7.85 MV E/E' lateral 6.19 Aortic Valve LVOT Area 3.41 cm2 AoV Area Vmax 2.58 cm2 LVOT Vmax 1.08 m/s AoV Area/ BSA (Vmax) 1.29 cm2/m2 LVOT Mean Haseeb. 0.72 m/s YUAN Mean Haseeb. 2.37 cm2 LVOT Peak Grad 4.7 mmHg YUAN Mean Haseeb. Index 1.18 cm2/m2 LVOT Mean Grad 2.4 mmHg LVOT VTI 0.183 m LVOT Diam s 2.05 cm AoV Vmax 1.43 m/s Velocity Ratio 0.75 AoV Mean Haseeb. 1.04 m/s AoV Peak Grad 8.2 mmHg LVOT SV 62.40 mL AoV Mean Grad 4.8 mmHg AoV VTI 0.224 m AoV Area VTI 2.79 cm2 AoV Area/ BSA (VTI) 1.39 cm/m2 Mitral Valve MV DT 218 (160-240 msec) MV PHT 63 msec MV Area PHT 3.48 cm2 Pulmonary Valve PV Vmax 1.07 (0.5-1.5 m/s) RVOT Peak Gr. 1.78 mmHg PV Peak Grad 4.6 mmHg RVOT Mean Gr. 0.80 mmHg PV Mean Grad 2.3 mmHg RVOT VTI 0.126 m PV VTI 0.181 m RVOT Vmax 0.67 m/s Tricuspid Valve TR Peak Grad 33.8 mmHg TR Vmax 2.91 m/s RA Pressure 3.00 mmHg RVSP (TR) 36.8 mmHg
[2020-03-12] MEDS: Ipratropium/Albuterol 4 GM 120 PUFF INH IH ×6 (05:11→18:13)
[2020-03-12] MEDS: Heparin 5,000 UNITS/ML VIAL 5000 UNITS SC ×3 (05:24→21:33)
[2020-03-12 07:04] LABS: HCT 42.4 % (40.0-50.0); HGB 13.8 g/dL (13.5-17.5); Mean Corp. HGB Concentration 32.5 g/dL (32.0-36.0); Mean Corpuscular Hemoglobin 31.4 pg (27.0-33.0); Mean Corpuscular Volume 96.4 fL (80-95); Mean Platelet Volume 12.6 fL (8.0-11.0); Platelet Count 146 x1000/uL (130-400); RBC Distribution Width 13.8 % (11.8-14.1); White Blood Cell Count 4.09 k/cumm (4.4-10.8)
[2020-03-12 07:14] LABS: Anion Gap 3.8 mmol/L (3-11); BUN 10 mg/dL (7-18); CO2 33.2 mmol/L (21.0-32.0); CREATININE 0.95 mg/dL (0.70-1.30); Calcium 8.3 mg/dL (8.5-10.1); Chloride 107 mmol/L (98-107); Glucose 118 mg/dL (74-106); Magnesium 1.7 mg/dL (1.8-2.4); Potassium 3.5 mmol/L (3.5-5.1); Sodium 144 mmol/L (136-145)
[2020-03-12] MEDS: Budesonide/Formoterol 160/4.5 6 GM 60 PUFF INH IH ×2 (07:43→21:32)
[2020-03-12] MEDS: Polyethylene Glycol 3350 17 GM PACKET PO (08:06)
[2020-03-12] MEDS: Normal Saline Flush 10 ML SYR IVP ×3 (08:06→21:39)
[2020-03-12] MEDS: Metoprolol CR 25 MG TABCR PO (08:07)
[2020-03-12] MEDS: Docusate Sodium 100 MG CAP PO (08:07)
[2020-03-12] MEDS: buPROPion-XL 150 MG TABCR 300 MG PO (08:07)
[2020-03-12] MEDS: Furosemide 20 MG TAB PO (08:07)
[2020-03-12] MEDS: Gabapentin 600 MG TAB PO ×3 (08:07→21:33)
[2020-03-12] MEDS: Montelukast 10 MG TAB PO (08:08)
[2020-03-12] MEDS: Omeprazole 20 MG CAPCR PO (08:08)
--- NOTE | 2020-03-12 08:29 | NUR.NOTE ---
The patient woke up disoriented with delayed thoughts. The patient gradually oriented and is sitting up in the chair for breakfast. The patient states that 2/3 of my days I don't remember or know what I am doing. He states that I find weird movies in the VCR, I do weird stuff and I don't remember doing it. It is creepy. The patient states it normally happens in the day and that he has only passed out? and fallen when he is at the steps. He reports having fallen twice. He woke up on the stair landing and does not remember what led up to the fall. The patient does not remember if he is dizzy before the fall. He is able to report facts 1 hour after waking such as where and when he eats ([place] 1-3PM daily) that are consistent with his report yesterday. However, 1 hour after my arrival and his awakening, he does not remember the questions I asked earlier and states that he will remember me arriving and him waking up and the questions tomorrow. The patient is able to function independently now and was able to state the town now. Nursing Note:
[2020-03-12] MEDS: Lidocaine 5% Patch 2 PATCH TP (10:14)
[2020-03-12] MEDS: Magnesium Gluconate 500 MG TAB PO (10:15)
--- NOTE | 2020-03-12 11:11 | CHAPLAIN ---
William was up in his chair when I visited. 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 He continued to have a conversation with me but spoke very softly. He talked what he usually does when he's not here - woodworking and fly tying, which taught himself to do. 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 His primary worry right now if finances. He said he has talked with Care Management about financial resources, but that he likely makes too much to qualify. Last year he had to sell the motor for his boat to pay his taxes and he said that left him heartbroken. William said he is estranged from any family that lives near by, and has one friend he rely on.
[2020-03-12] MEDS: Lisinopril 5 MG TAB PO (12:17)
--- NOTE | 2020-03-12 12:46 | W.PM.PROGNOT ---
Date of Service Date of service: 03/12/20 Time of Service: 12:46 Assessment and Plan Assessment and plan (1) Syncope: Status: Chronic Assessment and plan: Still unclear as to the cause of his syncopal event however he has had no arrhythmias either on telemetry nor upon interrogation of his pacer/ICD. He may have been a combination of being overmedicated plus being dehydrated. He has had some soft blood pressures but no actual syncope or near syncope. Because of his cardiomyopathy I have resumed some of his medications. His Lasix was restarted yesterday but because he appears to be volume overload he is getting an extra dose of IV Lasix. I restart his lisinopril at a reduced dose beginning today and starting tomorrow he will resume his spironolactone. Qualifiers: Syncope type: unspecified Qualified Code(s): R55 - Syncope and collapse (2) Hypotension: Status: Acute Assessment and plan: Resume lisinopril and Spironolactone. Monitor blood pressure electrolytes and proBNP. Check echocardiogram to evaluate left ventricular and right ventricular function. Qualifiers: Hypotension type: hypotension due to hypovolemia Qualified Code(s): I95.89 - Other hypotension; E86.1 - Hypovolemia (3) Left rib fracture: Status: Acute Assessment and plan: Rib pain is stable. He is still splinting and shallow breathing. Continue the inspirometer. Continue analgesics. Qualifiers: Encounter type: subsequent encounter Rib fracture type: multiple ribs Fracture type: closed Fracture healing: with routine healing Qualified Code(s): S22.42XD - Multiple fractures of ribs, left side, subsequent encounter for fracture with routine healing (4) Dehydration: Status: Resolved Assessment and plan: He is now fluid replete. We will now restart his diuretics for his chronic CHF. (5) Altered mental status: Status: Acute Assessment and plan: Mental status appears to be back at baseline from what we can gather from his PCP and mental health. Melanie Dowling agrees with cutting back the Seroquel to 400 mg daily. Will restart the Trintellix at 20 mg daily. Increase gabapentin back up to 600 mg 3 times daily. Qualifiers: Altered mental status type: disorientation Qualified Code(s): R41.0 - Disorientation, unspecified (6) COPD (chronic obstructive pulmonary disease): Status: Chronic Assessment and plan: Severe COPD at baseline. His oxygen saturation appears to be stabilizing at around 90% on room air. Will tolerate sats down to 88%. Resume his usual inhalers. Qualifiers: COPD type: unspecified COPD Qualified Code(s): J44.9 - Chronic obstructive pulmonary disease, unspecified (7) Biventricular implantable cardioverter-defibrillator (ICD) in situ: Status: Chronic Assessment and plan: His ICD was interrogated yesterday. There is no abnormality. He has 21 months left of battery life. Further follow-up with Dr. Scott. Subjective Subjective Interval history since last seen: Patient is currently at 89 kg which is a 7 kg weight gain since admission. All IV fluids have been discontinued. He has been resumed on his furosemide but spironolactone still on hold. Still has puffiness in his hands and his feet. Pulse oximetry is borderline on room air at 88 to 90%. He is not short of breath at rest. Able to talk in complete paragraphs without dyspnea. No chest discomfort other than his left-sided rib pain from his rib fractures. Nursing is noticed that he has a post hypnagogic confusion which improves as the day wears on. Patient has multiple psychiatric medications some of which have been cut down to help improve his confusion. He has a known history of alcoholism although he has been abstinent for a number years therefore it is not clear as to what his baseline cognitive function is. Still unclear as to what happened with the syncope at home. Blood pressures were soft during the night and early this morning in the systolic 90s to low 100s. Blood pressures been better this morning in the 130s. I have resumed his lisinopril at a reduced dose of 5 mg but we will time this to be given at noon time so that his diuretic and metoprolol are given at the same time his lisinopril. Yesterday the Seroquel dose was cut down to 400 mg nightly. I may leave his psychiatric medications the same for now and see how he does tonight. Because he still is volume overloaded from IV fluid resuscitation from his admission, to give him an extra dose of IV Lasix this afternoon and restart his spironolactone along with his Lasix tomorrow. We will get an echocardiogram to enhance his work-up of his syncopal event. His last echocardiogram was over 2 years ago in October 2017 at that time his cardiomyopathy had improved and his ejection fraction was around 50%. His pacemaker/ICD was interrogated earlier during this admission and was found to have no supraventricular or ventricular events that could explain a syncopal event. He has had no discharge of his ICD. I will continue to have him monitored for another day and if there is no syncopal event and his blood pressure stable and his volume overload has improved to his baseline no plan for discharge in the next 1 to 2 days depending on his response. Exam Narrative Exam Narrative: Middle-age male sitting up in his chair watching TV he is alert answers questions appropriately is in no acute distress. Lungs are diminished at the bases but is improved after a few deep breaths with the use and is been spirometer. There are a few fine rales at the bases. Heart is regular without appreciable murmur rub or gallop. Abdomen is obese soft and nontender. Extremities reveal 2+ edema of his feet and ankles and his hands are also puffy Objective Objective Clinical Data: Abnormal lab results 03/12/20 03/12/20 Range/Units 06:30 06:30 WBC 4.09 L (4.4-10.8) k/cumm RBC 4.40 L (4.50-6.00) m/cumm MCV 96.4 H (80-95) fL MPV 12.6 H (8.0-11.0) fL Carbon Dioxide 33.2 H (21.0-32.0) mmol/L Glucose 118 H (74-106) mg/dL Calcium 8.3 L (8.5-10.1) mg/dL Magnesium 1.7 L (1.8-2.4) mg/dL Vital Signs Temperature 36.8 C 03/12/20 12:19 Temperature Source Temporal Artery Scan 03/12/20 12:19 Pulse 92 H 03/12/20 12:12 Pulse Rhythm Regular 03/10/20 08:08 Pulse 94 H 03/12/20 12:12 Respiratory Rate 16 03/12/20 12:19 Respiratory Effort 03/12/20 12:19 Respiratory Depth Shallow 03/12/20 12:19 Respiratory Pattern Normal 03/12/20 12:19 Blood Pressure 130/75 03/12/20 12:19 Blood Pressure Mean 93 03/12/20 12:19 Blood Pressure Position Sitting 03/12/20 12:19 Pulse Oximetry 90 L 03/12/20 12:19 Respiratory End-tidal CO2 39 03/10/20 01:37 Oxygen Delivery Method Room Air 03/12/20 12:19 Oxygen Flow Rate 0 03/12/20 12:19 Pain Level 6 03/12/20 12:19 Intake & Output 03/11/20 03/12/20 03/12/20 23:59 11:59 23:59 Intake Total 1390 / 4086.667 450 / 450 Output Total 525 / 6 1100 / 1100 Balance 865 / 2009.667 -650 / -650 Weight 89 kg Intake: IV 1985.667 Oral 1380 / 2100 450 / 450 Output: Urine 525 / 2074 1100 / 1100 Other: Urine Color Yellow Yellow Urine Appearance Clear Clear Urine Odor Normal Normal Comment Reported as voided by night nurse Phyllis Mendoza RN and documented my Becky Aranda RN in the AM. Voiding Methods Bedside Commode Bedside Commode Laboratory Results WBC 4.09 k/cumm (4.4-10.8) L 03/12/20 06:30 RBC 4.40 m/cumm (4.50-6.00) L 03/12/20 06:30 Hgb 13.8 g/dL (13.5-17.5) 03/12/20 06:30 Hct 42.4 % (40.0-50.0) 03/12/20 06:30 MCV 96.4 fL (80-95) H 03/12/20 06:30 MCH 31.4 pg (27.0-33.0) 03/12/20 06:30 MCHC 32.5 g/dL (32.0-36.0) 03/12/20 06:30 RDW 13.8 % (11.8-14.1) 03/12/20 06:30 Plt Count 146 x1000/uL (130-400) 03/12/20 06:30 MPV 12.6 fL (8.0-11.0) H 03/12/20 06:30 Immature Gran % 0.3 % 03/08/20 15:00 Neutrophils % 69.8 03/08/20 15:00 Lymphocytes % 13.7 03/08/20 15:00 Monocytes % 14.8 03/08/20 15:00 Eosinophils % 1.1 03/08/20 15:00 Basophils % 0.3 03/08/20 15:00 Absolute Neutrophils 6.30 k/cumm (1.2-6.7) 03/08/20 15:00 Absolute Lymphocytes 1.24 k/cumm (1.2-3.4) 03/08/20 15:00 Absolute Monocytes 1.34 k/cumm (0.11-0.7) H 03/08/20 15:00 Absolute Eosinophils 0.10 k/cumm (0.0-0.7) 03/08/20 15:00 Absolute Basophils 0.03 k/cumm (0.0-0.2) 03/08/20 15:00 Sodium 144 mmol/L (136-145) 03/12/20 06:30 Potassium 3.5 mmol/L (3.5-5.1) 03/12/20 06:30 Chloride 107 mmol/L (98-107) 03/12/20 06:30 Carbon Dioxide 33.2 mmol/L (21.0-32.0) H 03/12/20 06:30 Anion Gap 3.8 mmol/L (3-11) 03/12/20 06:30 BUN 10 mg/dL (7-18) 03/12/20 06:30 Creatinine 0.95 mg/dL (0.70-1.30) 03/12/20 06:30 Estimated GFR/1.73 m2 >= 60.00 (mL/min/1.73m2) 03/12/20 06:30 Glucose 118 mg/dL (74-106) H 03/12/20 06:30 Calcium 8.3 mg/dL (8.5-10.1) L 03/12/20 06:30 Magnesium 1.7 mg/dL (1.8-2.4) L 03/12/20 06:30 Total Bilirubin 0.6 mg/dL (0.2-1.0) 03/08/20 15:00 AST 15 U/L (15-37) 03/08/20 15:00 ALT 21 U/L (16-63) 03/08/20 15:00 Alkaline Phosphatase 93 U/L (46-116) 03/08/20 15:00 Troponin I < 0.05 ng/Ml (<0.06) 03/10/20 01:10 NT-Pro-B Natriuret Pep 99 pg/mL (<300) 03/08/20 15:00 Total Protein 7.5 g/dL (6.4-8.2) 03/08/20 15:00 Albumin 3.7 g/dL (3.4-5.0) 03/08/20 15:00 Urine Color Yellow (Yellow) 03/10/20 07:30 Urine Clarity Clear (Clear) 03/10/20 07:30 Urine pH 6.5 (5-8) 03/10/20 07:30 Ur Specific [place] 1.015 (1.005-1.025) 03/10/20 07:30 Urine Protein Negative mg/dL (Negative) 03/10/20 07:30 Urine Ketones Negative mg/dL (Negative) 03/10/20 07:30 Urine Blood Negative (Negative) 03/10/20 07:30 Urine Nitrite Negative (Negative) 03/10/20 07:30 Urine Bilirubin Negative (Negative) 03/10/20 07:30 Urine Urobilinogen 0.2 EU/dL (Up TO 0.2) 03/10/20 07:30 Ur Leukocyte Esterase Negative (Negative) 03/10/20 07:30 Urine RBC 0-2 HPF (0-2) 03/08/20 17:55 Urine WBC 10-20 HPF (0-5) H 03/08/20 17:55 Ur Epithelial Cells Negative HPF (Negative) 03/08/20 17:55 Urine Crystals Negative HPF (Negative) 03/08/20 17:55 Urine Bacteria Negative HPF (Negative) 03/08/20 17:55 Urine Casts Negative LPF (Negative) 03/08/20 17:55 Urine Mucus Moderate (Negative) 03/08/20 17:55 Urine Other Negative (Negative) 03/08/20 17:55 Ur Culture Indicated? Yes 03/08/20 17:55 Urine Glucose Negative mg/dL (Negative) 03/10/20 07:30 Urine Opiates Screen Positive (Negative) A 03/08/20 17:55 Urine Methadone Screen Negative (Negative) 03/08/20 17:55 Ur Barbiturates Screen Negative (Negative) 03/08/20 17:55 Ur Tricyclics Screen Negative (Negative) 03/08/20 17:55 Ur Amphetamines Screen Negative (Negative) 03/08/20 17:55 U Benzodiazepines Scrn Positive (Negative) A 03/08/20 17:55 Urine Cocaine Screen Negative (Negative) 03/08/20 17:55 Ur THC Screen Negative (Negative) 03/08/20 17:55 Ethyl Alcohol < 3.0 mg/dL (<3) 03/08/20 15:00 COVID-19 PCR Negative (Negative) 03/08/20 15:53 Nasopharyn COVID-19 PCR Not Applicable 03/08/20 15:53 Ref Test Perform [facility] lab 03/08/20 15:53
[2020-03-12] MEDS: Furosemide 20 MG/2 ML VIAL IVP (14:42)
[2020-03-12] MEDS: Potassium Chloride 20 MEQ TABCR PO (15:41)
--- NOTE | 2020-03-12 15:43 | PDOC.CMPRO ---
- If Service Date Differs Date of service: 03/12/20 Time of Service: 15:43 Care Management Progress Note S/O: William was sitting up on the edge of his bed when CM met with him. He was pleasant and engaged in conversation. CM confirmed that his physical address is in [place], [place], not [place]. CM spoke to Lydia at [facility], who reported that he would be in their area, as [place] is in [facility]. CM also contacted Jessie at [facility] to obtain MOW's for him upon discharge. CM also called [facility] to see if they have a microwave that they could provide to William for his meals, as he has stated that his microwave and stove are broken. William also stated that he does not have shoes here, as he was brought in hastily by EMS. CM will look for size 10 shoes for him to discharge home with. CM will continue to follow. A: William is a 54 year old male admitted to [facility] on 03/08/2020 for a rib fracture and UTI. P: Anticipate William will return home when medically cleared by provider. He will be driven home via private vehicle by a friend when ready. He will resume services through [facility]. He will have new MOW and support through [facility] for options counseling. CM will continue to support patient and discharge planning considerations.
[2020-03-12] MEDS: Pravastatin 20 MG TAB PO (21:33)
[2020-03-12] MEDS: Benztropine 1 MG TAB PO (21:33)
[2020-03-12] MEDS: Lidocaine Patch Removal 2 EACH TD (21:34)
[2020-03-12] MEDS: Acetaminophen 325 MG TAB 650 MG PO (21:34)
[2020-03-12] MEDS: QUEtiapine 300 MG, QUEtiapine 100 MG 400 MG PO (21:34)
[2020-03-13] VITALS (36 sets, daily range): BP systolic 84–136; BP diastolic 52–91; PULSE 72–101; RESP 1–22; TEMP 36.6–37.3; O2SAT 86–94
[2020-03-13] MEDS: Ipratropium/Albuterol 4 GM 120 PUFF INH IH ×4 (00:28→17:52)
[2020-03-13] MEDS: Normal Saline Flush 10 ML SYR IVP ×3 (04:15→16:00)
[2020-03-13] MEDS: Acetaminophen 325 MG TAB 650 MG PO ×2 (06:17→21:23)
[2020-03-13] MEDS: Heparin 5,000 UNITS/ML VIAL 5000 UNITS SC ×3 (06:18→21:22)
[2020-03-13] MEDS: Omeprazole 20 MG CAPCR PO (06:48)
[2020-03-13 07:28] LABS: Anion Gap 2.7 mmol/L (3-11); BUN 11 mg/dL (7-18); CO2 33.3 mmol/L (21.0-32.0); CREATININE 0.98 mg/dL (0.70-1.30); Calcium 8.6 mg/dL (8.5-10.1); Chloride 104 mmol/L (98-107); Glucose 111 mg/dL (74-106); NT-proBNP 283 pg/mL (<300); Potassium 3.8 mmol/L (3.5-5.1); Sodium 140 mmol/L (136-145)
[2020-03-13] MEDS: Budesonide/Formoterol 160/4.5 6 GM 60 PUFF INH IH ×2 (07:59→20:04)
[2020-03-13] MEDS: Furosemide 20 MG TAB PO (08:49)
[2020-03-13] MEDS: Gabapentin 600 MG TAB PO ×3 (08:49→20:05)
[2020-03-13] MEDS: buPROPion-XL 150 MG TABCR 300 MG PO (08:49)
[2020-03-13] MEDS: Potassium Chloride 20 MEQ TABCR PO (08:49)
[2020-03-13] MEDS: Docusate Sodium 100 MG CAP PO ×2 (08:49→20:05)
[2020-03-13] MEDS: Metoprolol CR 25 MG TABCR PO (08:50)
[2020-03-13] MEDS: Spironolactone 25 MG TAB 12.5 MG PO (08:50)
[2020-03-13] MEDS: Lisinopril 5 MG TAB PO (08:50)
[2020-03-13] MEDS: Lidocaine 5% Patch 2 PATCH TP (09:37)
[2020-03-13] MEDS: Magnesium Gluconate 500 MG TAB PO (09:38)
--- NOTE | 2020-03-13 10:38 | RESPIRATORY ---
Pt set up with new Trilogy unit from [facility] on 03/12/20 Settings: AVAPS-AE Vt 400ml AVAPS Rate 1 Max Pressure 30 PS min 6/ max 16 EPAP min 4/ max 14, Room Air. Face Mask Medium [facility]
--- NOTE | 2020-03-13 11:07 | W.PM.PROGNOT ---
Date of Service Date of service: 03/13/20 Time of Service: 11:07 Assessment and Plan Assessment and plan (1) Syncope: Status: Chronic Assessment and plan: No evidence for arrhythmic events. Presumably his syncopal spell was secondary to hypotension and overmedication for his psychiatric condition. His Seroquel dose has been adjusted downward. We have left his other medications as he takes them at home including his Wellbutrin, gabapentin, Trintellix the same. Seroquel dose was reduced to 400 mg nightly. We will continue to monitor his blood pressure and start physical therapy. Qualifiers: Syncope type: unspecified Qualified Code(s): R55 - Syncope and collapse (2) Hypotension: Status: Resolved Assessment and plan: Resume lisinopril and Spironolactone. Monitor blood pressure electrolytes and proBNP. Check echocardiogram to evaluate left ventricular and right ventricular function. Qualifiers: Hypotension type: hypotension due to hypovolemia Qualified Code(s): I95.89 - Other hypotension; E86.1 - Hypovolemia (3) Left rib fracture: Status: Acute Assessment and plan: Rib pain is stable. He is still splinting and shallow breathing. Continue the inspirometer. Continue analgesics. Add Acapella Qualifiers: Encounter type: subsequent encounter Rib fracture type: multiple ribs Fracture type: closed Fracture healing: with routine healing Qualified Code(s): S22.42XD - Multiple fractures of ribs, left side, subsequent encounter for fracture with routine healing (4) Altered mental status: Status: Resolved Assessment and plan: Mental status appears to be back at baseline from what we can gather from his PCP and mental health. Continue current reduced dose of Seroquel 4 mg nightly. Continue his Trintellix and gabapentin and Wellbutrin as at home Qualifiers: Altered mental status type: disorientation Qualified Code(s): R41.0 - Disorientation, unspecified (5) COPD (chronic obstructive pulmonary disease): Status: Chronic Assessment and plan: Severe COPD at baseline. No recent PFTs. No ABG was done during this admission. I am not sure on what basis RT qualified him for a trilogy machine. However the indicated to me that the [email or web address] will be here to provide the machine at discharge. We will going get an amatory pulse oximetry on him as well as an overnight pulse oximetry. We will continue with pulmonary toiletry with use of Acapella and incentive spirometry. Continue current inhalers. Qualifiers: COPD type: unspecified COPD Qualified Code(s): J44.9 - Chronic obstructive pulmonary disease, unspecified (6) Biventricular implantable cardioverter-defibrillator (ICD) in situ: Status: Chronic Assessment and plan: His ICD was interrogated on March 11. There is no abnormality. He has 21 months left of battery life. Further follow-up with Dr. Scott. Subjective Subjective Interval history since last seen: PT to startPatient ambulated around the ICU with the assistance of his nurse. Oxygen saturation remained 88% or higher on room air. He did complain of some lightheaded feelings but had no syncope. Rhythm remains ventricular paced. No hypotension. Patient has not been receiving physical therapy since he went into the ICU over the weekend. I reordered. We will have RT evaluate a formal ambulatory pulse oximetry study to see if he is going to need home oxygen. Still using BiPAP at night. I will asked respiratory to evaluate whether or not he will need BiPAP when he goes home. At rest he does not appear to be short of breath but does complain of some left-sided rib pain with deep breathing or coughing. He is not mobilizing any sputum. He remains afebrile. At this point he no longer needs ICU monitoring. As he has had no arrhythmias and his interrogation of his pacer/ICD did not demonstrate any supraventricular or ventricular arrhythmic events I am going to discontinue further telemetry. He can be transferred out to medical/surgical floor for continued therapy. I anticipate discharge in the next 24 to 48 hours. Case management is on his case that is indicated that agency area on aging will open uppercase on him and he will receive Meals on Wheels. They are looking into other support upon discharge Exam Narrative Exam Narrative: Middle-age male sitting up in a chair watching TV in no acute distress. He is alert and seems to be oriented person place time circumstance. Lungs are clear to auscultation anteriorly posteriorly had some fine rales no rhonchi or wheezing. Left chest wall is tender to palpation. Heart is regular no appreciable murmur rub or gallop. Abdomen soft nontender nondistended. Extremities he has 1+ edema of his hands and his feet. Objective Objective Clinical Data: Abnormal lab results 03/13/20 Range/Units 06:50 Carbon Dioxide 33.3 H (21.0-32.0) mmol/L Anion Gap 2.7 L (3-11) mmol/L Glucose 111 H (74-106) mg/dL Vital Signs Temperature 37.3 C 03/13/20 08:57 Temperature Source Temporal Artery Scan 03/13/20 08:57 Pulse 90 03/13/20 08:53 Pulse Rhythm Regular 03/10/20 08:08 Pulse 86 03/13/20 08:53 Respiratory Rate 15 03/13/20 08:53 Respiratory Effort 03/13/20 08:09 Respiratory Depth Normal 03/13/20 08:09 Respiratory Pattern Normal 03/13/20 08:09 Blood Pressure 115/69 03/13/20 08:53 Blood Pressure Mean 77 03/13/20 08:53 Blood Pressure Position Sitting 03/13/20 08:09 Pulse Oximetry 90 L 03/13/20 10:33 Respiratory End-tidal CO2 39 03/10/20 01:37 Oxygen Delivery Method Room Air 03/13/20 08:09 Oxygen Flow Rate 0 03/13/20 08:09 Fraction of Inspired Oxygen (FIO2) 21 03/13/20 10:33 Pain Level 5 03/13/20 06:17 Intake & Output 03/12/20 03/12/20 03/13/20 11:59 23:59 11:59 Intake Total 450 / 1790 1340 / 1790 600 / 600 Output Total 1100 / 2925 1825 / 2925 875 / 875 Balance -650 / -1135 -485 / -1135 -275 / -275 Weight 89 kg 84.7 kg Intake: IV Oral 450 / 1770 1320 / 1770 600 / 600 Output: Urine 1100 / 2925 1825 / 2925 875 / 875 Other: Urine Color Yellow Yellow Yellow Urine Appearance Clear Clear Clear Urine Odor Normal Normal Comment mixed in stool Pt has not voided in over 8 hours. Stool Occult Blood Negative Stool Size Small Stool Characteristics Soft Formed Voiding Methods Bedside Commode Bedside Commode Bedside Commode Laboratory Results WBC 4.09 k/cumm (4.4-10.8) L 03/12/20 06:30 RBC 4.40 m/cumm (4.50-6.00) L 03/12/20 06:30 Hgb 13.8 g/dL (13.5-17.5) 03/12/20 06:30 Hct 42.4 % (40.0-50.0) 03/12/20 06:30 MCV 96.4 fL (80-95) H 03/12/20 06:30 MCH 31.4 pg (27.0-33.0) 03/12/20 06:30 MCHC 32.5 g/dL (32.0-36.0) 03/12/20 06:30 RDW 13.8 % (11.8-14.1) 03/12/20 06:30 Plt Count 146 x1000/uL (130-400) 03/12/20 06:30 MPV 12.6 fL (8.0-11.0) H 03/12/20 06:30 Immature Gran % 0.3 % 03/08/20 15:00 Neutrophils % 69.8 03/08/20 15:00 Lymphocytes % 13.7 03/08/20 15:00 Monocytes % 14.8 03/08/20 15:00 Eosinophils % 1.1 03/08/20 15:00 Basophils % 0.3 03/08/20 15:00 Absolute Neutrophils 6.30 k/cumm (1.2-6.7) 03/08/20 15:00 Absolute Lymphocytes 1.24 k/cumm (1.2-3.4) 03/08/20 15:00 Absolute Monocytes 1.34 k/cumm (0.11-0.7) H 03/08/20 15:00 Absolute Eosinophils 0.10 k/cumm (0.0-0.7) 03/08/20 15:00 Absolute Basophils 0.03 k/cumm (0.0-0.2) 03/08/20 15:00 Sodium 140 mmol/L (136-145) 03/13/20 06:50 Potassium 3.8 mmol/L (3.5-5.1) 03/13/20 06:50 Chloride 104 mmol/L (98-107) 03/13/20 06:50 Carbon Dioxide 33.3 mmol/L (21.0-32.0) H 03/13/20 06:50 Anion Gap 2.7 mmol/L (3-11) L 03/13/20 06:50 BUN 11 mg/dL (7-18) 03/13/20 06:50 Creatinine 0.98 mg/dL (0.70-1.30) 03/13/20 06:50 Estimated GFR/1.73 m2 >= 60.00 (mL/min/1.73m2) 03/13/20 06:50 Glucose 111 mg/dL (74-106) H 03/13/20 06:50 Calcium 8.6 mg/dL (8.5-10.1) 03/13/20 06:50 Magnesium 1.7 mg/dL (1.8-2.4) L 03/12/20 06:30 Total Bilirubin 0.6 mg/dL (0.2-1.0) 03/08/20 15:00 AST 15 U/L (15-37) 03/08/20 15:00 ALT 21 U/L (16-63) 03/08/20 15:00 Alkaline Phosphatase 93 U/L (46-116) 03/08/20 15:00 Troponin I < 0.05 ng/Ml (<0.06) 03/10/20 01:10 NT-Pro-B Natriuret Pep 283 pg/mL (<300) 03/13/20 06:50 Total Protein 7.5 g/dL (6.4-8.2) 03/08/20 15:00 Albumin 3.7 g/dL (3.4-5.0) 03/08/20 15:00 Urine Color Yellow (Yellow) 03/10/20 07:30 Urine Clarity Clear (Clear) 03/10/20 07:30 Urine pH 6.5 (5-8) 03/10/20 07:30 Ur Specific [place] 1.015 (1.005-1.025) 03/10/20 07:30 Urine Protein Negative mg/dL (Negative) 03/10/20 07:30 Urine Ketones Negative mg/dL (Negative) 03/10/20 07:30 Urine Blood Negative (Negative) 03/10/20 07:30 Urine Nitrite Negative (Negative) 03/10/20 07:30 Urine Bilirubin Negative (Negative) 03/10/20 07:30 Urine Urobilinogen 0.2 EU/dL (Up TO 0.2) 03/10/20 07:30 Ur Leukocyte Esterase Negative (Negative) 03/10/20 07:30 Urine RBC 0-2 HPF (0-2) 03/08/20 17:55 Urine WBC 10-20 HPF (0-5) H 03/08/20 17:55 Ur Epithelial Cells Negative HPF (Negative) 03/08/20 17:55 Urine Crystals Negative HPF (Negative) 03/08/20 17:55 Urine Bacteria Negative HPF (Negative) 03/08/20 17:55 Urine Casts Negative LPF (Negative) 03/08/20 17:55 Urine Mucus Moderate (Negative) 03/08/20 17:55 Urine Other Negative (Negative) 03/08/20 17:55 Ur Culture Indicated? Yes 03/08/20 17:55 Urine Glucose Negative mg/dL (Negative) 03/10/20 07:30 Urine Opiates Screen Positive (Negative) A 03/08/20 17:55 Urine Methadone Screen Negative (Negative) 03/08/20 17:55 Ur Barbiturates Screen Negative (Negative) 03/08/20 17:55 Ur Tricyclics Screen Negative (Negative) 03/08/20 17:55 Ur Amphetamines Screen Negative (Negative) 03/08/20 17:55 U Benzodiazepines Scrn Positive (Negative) A 03/08/20 17:55 Urine Cocaine Screen Negative (Negative) 03/08/20 17:55 Ur THC Screen Negative (Negative) 03/08/20 17:55 Ethyl Alcohol < 3.0 mg/dL (<3) 03/08/20 15:00 COVID-19 PCR Negative (Negative) 03/08/20 15:53 Nasopharyn COVID-19 PCR Not Applicable 03/08/20 15:53 Ref Test Perform Site [facility] lab 03/08/20 15:53
--- NOTE | 2020-03-13 12:50 | PDOC.CMPRO ---
- If Service Date Differs Date of service: 03/13/20 Time of Service: 12:50 Care Management Progress Note S/O: William was sitting up in his chair when CM met with him. He reported that he was feeling ok today, but not as good as yesterday. He stated that he was not sure if how he was feeling was more physical or emotional. CM discussed the services that will start upon discharge, including [facility] for options counseling and [facility] for MOW. CM contacted [employer] to try to obtain shoes for William, but William stated that Rico, his neighbor, will bring him shoes when he comes to pick him up. CM reached out to RT, who stated that he was approved for a Trilogy machine, and a new mask (without magnets, due to his implant this was necessary) will be delivered tomorrow. Per RT, he will have an overnight oximetry test tonight, in order to determine the correct settings for his new machine. PT will evaluate him today as well. CM contacted both [facility] and [facility] today to inform them of a possible discharge tomorrow. CM will continue to follow. A: William is a 54 year old male admitted to [facility] on 03/08/2020 for a rib fracture and UTI. P: Anticipate William will return home when medically cleared by provider. He will be driven home via private vehicle by a friend when ready. He will resume services through [facility]. He will have new MOW and support through [facility] for options counseling. He will have a new Trilogy machine upon discharge, coordinated by RT, through [facility]. CM will continue to support patient and discharge planning considerations.
--- NOTE | 2020-03-13 14:10 | IN_ITS ---
Date of service: 03/13/20 Time of Service: 14:10 PT Notes Visit Reasons: RIB FRACTURE, UTI Physical Therapy Inpatient Initial Evaluation Date: 03/13/2020 Referring Doctor: Sp Williamson MD PT Orders: PT CONSULT: Safety consult for DC Precautions: Fall. Standard. Activity as tolerated. Patient Profile/Admitting Diagnosis: William is a 54-year-old male with pre- existing unspecified psychiatric disorder, COPD and CHF who presented to the ED on 03/08/2020 with chief presentation of generalized weakness, decreased appetite, left-sided chest pain, and shortness of breath that have all been evolving for the past 5 days prior to admission. Patient is diagnosed with syncope, hypotension, left rib fracture, altered mental status, COPD, and with ICD in situ. PMHX: Medical History Biventricular implantable cardioverter-defibrillator (ICD) in situ (Chronic) History of alcohol abuse (Resolved) History of tobacco abuse (Resolved) LBBB (left bundle branch block) (Chronic) Nonischemic dilated cardiomyopathy (Chronic) Severe chronic obstructive pulmonary disease (Chronic) Systolic and diastolic CHF, chronic (Chronic) Social History/Home Situation: William lives alone in an apartment with 12 steps to enter without rails. He states that he took care of everything on his own and has not received any community support. Per case management notes: William lives alone in a two story house in [place]. He is disabled and spends his time fishing, hunting, and woodworking. William shares he has a few friends he sees occasionally and states he has family nearby but is estranged from them. William reports he is independent with his ADLs, drives, and takes care of his home, but adds it is not as clean as it should be. He states he would love to have someone cook his meals and help clean his house. He further reports approximately 1 and 1/2 weeks ago, he began falling without warning and for no apparent reason. He shares his bedroom is on the second floor of the house and he recently fell down the 12 steps to the downstairs. Equipment Owned/DME: None Subjective: Patient reports continued dizziness but no report of chest pain or headache. He is agreeable to a PT consult in order to determine if she level with mobility ADL performance and stair negotiation. Objective: General Observation: TEDS in place. Mental Status: Alert and oriented as to person and place. Generally takes time for patient is able to respond which may be due to patient being mildly hard of hearing or may be due to pre-existing psychiatric disorder. Pain: None reported ROM: Right Upper Extremity: Shoulder Flexion WFL. Shoulder abduction WFL. Elbow flexion WFL. Wrist flexion WFL. Opening and closing of hand WFL. Left Upper Extremity: Shoulder Flexion WFL. Shoulder abduction WFL. Elbow flexion WFL. Wrist flexion WFL. Opening and closing of hand WFL. Right Lower Extremity: Hip flexion WFL. Hip abduction WFL. Knee flexion WFL. Ankle dorsiflexion WFL. Ankle plantarflexion WFL. Left Lower Extremity: Hip flexion WFL. Hip abduction WFL. Knee flexion WFL. Ankle dorsiflexion WFL. Ankle plantarflexion WFL. Strength: Right Upper Extremity: Shoulder flexors 4/5. Shoulder abductors 4/5. Elbow flexors 5/5. Elbow extensors 5/5. City Distribution Clerk strong. Left Upper Extremity: Shoulder flexors 4/5. Shoulder abductors 4/5. Elbow flexors 5/5. Elbow extensors 5/5. City Distribution Clerk strong. Right Lower Extremity: Hip flexors 4/5. Hip abductors 4/5. Knee flexors 5/5. Knee extensors 5/5. Ankle dorsiflexors 5/5. Ankle plantarflexors 5/5. Left Lower Extremity:Hip flexors 4/5. Hip abductors 4/5. Knee flexors 5/5. Knee extensors 5/5. Ankle dorsiflexors 5/5. Ankle plantarflexors 5/5. Sensation: Intact as to pain and pressure on bilateral lower extremities. Bed Mobility/Transfers: Rolling independent Supine to sit independent Sit to supine independent Sit to stand supervision Stand to sit supervision Bed to chair supervision Chair to bed supervision Gait: Despite report of continuous lightheadedness, patient tolerated level yoselyn face ambulation of 300 feet without an assistive device with supervision of this PT and ICU nurse Fiona. Heart rate stayed within normal limits throughout activity. No S OB observed. No LOB seen. Patient also tolerated up-and-down twenty four 4-inch steps and twelve 6 inch steps while holding onto bilateral rails requiring only supervision assist with step over step pattern. Balance: Static Sitting: Normal Dynamic Sitting: Normal Static Standing: Good Dynamic Standing: Fair Special Tests: Mobility Limitations Standardized Measure [facility] AM-PAC 6 clicks Basic Mobility Inpatient Short Form: Raw Score: 23 CMS Score: 11% deficit 4 stage balance test: Patient was able to maintain feet together and semi-tandem positions for 10 seconds but had severe difficulty with maintaining full tandem and 1 legged stance indicating a risk for falls. Informed Consent/Education: Patient instructed in purpose of PT consult and plan of care. Assessment: Patient demonstrates impairment in balance, unsteadiness in gait, lightheadedness which all increase risk for falling. Patient's pre-existing psychiatric disorder may limit his ability to regain independent level ADL performance and may require assistance from director of community life regarding resources available to thrive in the community. William is a 54-year-old male with pre- existing unspecified psychiatric disorder, COPD and CHF who presented to the ED on 03/08/2020 with chief presentation of generalized weakness, decreased appetite, left-sided chest pain, and shortness of breath that have all been evolving for the past 5 days prior to admission. Patient is diagnosed with syncope, hypotension, left rib fracture, altered mental status, COPD, and with ICD in situ. Patient presents with clinical signs and symptoms consistent with current/admitting diagnoses that have resulted to mobility limitations, gait instability, generalized weakness, and impairment of motor control as demonstrated by the following impairment level findings: 1. Impaired standing balance 2. Impaired activity tolerance Impairments are contributing to the following functional limitations: 1. Increase completion time for mobility ADL performance 2. Increased fall risk 3. Inability to negotiate steps alone safely Patient is assessed as a 37709 moderate complexity based on the following: History: 66-year-old male with impairment level findings, functional limitations, and medical history as indicated above Examination: Demonstrable impairment in strength, balance, and mobility level with underlying impairments and functional limitations as documented above Presentation: Stable Decision Makin moderate complexity 9 test Goals: Goals X1 week 1. Sit-Stand independent 2. Stand-Sit independent 3. Bed-Chair independent 4. Chair-Bed independent 5. Independent gait on level surface with use of least restrictive device for at least 300 feet without report of pain nor dyspnea 6. Independent stair negotiation while holding onto bilateral rails for at least 15 steps without report of pain nor dyspnea 7. Independent with home exercise program 8. Good static and dynamic standing balance/tolerance Plan of Care/Treatment Plan: 1-2x/day, 7 days/week x 1 week. Initiate Physical Therapy intervention for strengthening, bed mobility, transfers, gait, stairs, balance training, use of assistive device. DISCHARGE RECOMMENDATIONS: Patient will benefit from home health PT services in order to assess safety of stairs, continue with stair negotiation training in the home environment, assess home safety, identify additional equipment needs, and establish a functional maintenance program that will increase ability of patient to remain at home. Patient may benefit from a single-point cane for community ambulation to maximize safety. TREATMENT CODE/TIME: 61995 x25 minutes, 9753 0 x 13 minutes, beginning at 14:10 PM. Thank you very much for this referral. Valentine Tavera PT, DPT, CLT [facility] [place], [place]
[2020-03-13] MEDS: Pravastatin 20 MG TAB PO (20:04)
[2020-03-13] MEDS: Benztropine 1 MG TAB PO (21:23)
[2020-03-13] MEDS: QUEtiapine 300 MG, QUEtiapine 100 MG 400 MG PO (21:23)
[2020-03-13] MEDS: Lidocaine Patch Removal 2 EACH TD (21:38)
[2020-03-14] VITALS (18 sets, daily range): BP systolic 98–153; BP diastolic 56–135; PULSE 72–178; TEMP 36.7–37.2; O2SAT 88–93
[2020-03-14] MEDS: Heparin 5,000 UNITS/ML VIAL 5000 UNITS SC ×3 (06:52→21:45)
[2020-03-14] MEDS: Omeprazole 20 MG CAPCR PO (07:48)
[2020-03-14] MEDS: Furosemide 20 MG TAB PO (07:48)
[2020-03-14] MEDS: buPROPion-XL 150 MG TABCR 300 MG PO (07:48)
[2020-03-14] MEDS: Gabapentin 600 MG TAB PO ×3 (07:49→19:33)
[2020-03-14] MEDS: Spironolactone 25 MG TAB 12.5 MG PO (07:49)
[2020-03-14] MEDS: Lisinopril 5 MG TAB PO (07:49)
[2020-03-14] MEDS: Metoprolol CR 25 MG TABCR PO (07:49)
[2020-03-14] MEDS: Potassium Chloride 20 MEQ TABCR PO (07:49)
[2020-03-14] MEDS: Docusate Sodium 100 MG CAP PO ×2 (07:49→19:33)
[2020-03-14] MEDS: Acetaminophen 325 MG TAB 650 MG PO ×2 (07:50→21:52)
[2020-03-14] MEDS: Budesonide/Formoterol 160/4.5 6 GM 60 PUFF INH IH ×2 (08:36→19:34)
[2020-03-14] MEDS: Lidocaine 5% Patch 2 PATCH TP (09:09)
[2020-03-14] MEDS: Magnesium Gluconate 500 MG TAB PO (09:09)
--- NOTE | 2020-03-14 10:16 | PGE_ITS ---
Date of Service Date of service: 03/14/20 Time of Service: 10:16 Assessment and Plan Assessment and plan (1) Syncope: Status: Chronic Assessment and plan: No evidence for arrhythmic events. Presumably his syncopal spell was secondary to hypotension and overmedication for his psychiatric condition. His Seroquel dose has been adjusted downward. We have left his other medications as he takes them at home including his Wellbutrin, gabapentin, Trintellix the same. Seroquel dose was reduced to 400 mg nightly. Seems to be tolerating the change in his Seroquel dose. He is tolerated resumption of his Toprol and his diuretics.. Qualifiers: Syncope type: unspecified Qualified Code(s): R55 - Syncope and collapse (2) Left rib fracture: Status: Acute Assessment and plan: Rib pain is stable. He is still splinting and shallow breathing. Continue the inspirometer. Continue analgesics. Add Acapella Qualifiers: Encounter type: subsequent encounter Rib fracture type: multiple ribs Fracture type: closed Fracture healing: with routine healing Qualified Code(s): S22.42XD - Multiple fractures of ribs, left side, subsequent encounter for fracture with routine healing (3) COPD (chronic obstructive pulmonary disease): Status: Chronic Assessment and plan: Continue current inhalers along with pulmonary toiletry with Acapella and incentive spirometry. Patient would benefit from nocturnal oxygen as he has significant nocturnal desaturation. This will be added to his orders along with his trilogy machine. He needs 2 L/min per nasal cannula continuous flow throughout the night and whenever he is asleep to maintain his oxygen saturation. Qualifiers: COPD type: unspecified COPD Qualified Code(s): J44.9 - Chronic obstructive pulmonary disease, unspecified (4) Biventricular implantable cardioverter-defibrillator (ICD) in situ: Status: Chronic Assessment and plan: His ICD was interrogated on Wednesday, March 11. There is no abnormality. He has 21 months left of battery life. Further follow-up with Dr. Scott. (5) Ambulatory dysfunction: Status: Acute Assessment and plan: Continue physical therapy for balance and gait training and strengthening and reconditioning. He would benefit from home PT upon discharge. I have relayed these concerns to the care management who will add this to his outpatient care plans (6) Discharge planning issues: Status: Acute Assessment and plan: He will be driven home via private vehicle by a friend when ready. He will resume services through [facility]. He will have new MOW and support through [facility] for options counseling. He will have a new Trilogy machine upon discharge, coordinated by RT, through [facility]. Subjective Subjective Interval history since last seen: Patient continues to do well he is improving in his strength and his ambulation. Nurses walked him around the ICU a couple times with assistance. He has a slow steady gait did not lose his balance and did not have any dizziness. He still having some left sided rib pain for which the [place] does not seem to control the pain very well. We will add some ibuprofen to try some anti-inflammatory relief. His overnight pulse oximetry showed significant oxygen desaturation. He had total of 83 events with the longest event lasting 1 hour and 49 minutes. His basal SPO2 was 85.3% last night time spent under 88% was 394 minutes. He requires 2 L/min per nasal cannula to maintain his oxygen saturation. During the day at rest and even with ambulation his pulse oximetry is running at least 88% or higher. Patient wore his Trilogy device last night. Patient will continue to receive physical therapy today and the plan will be for discharge tomorrow. Exam Narrative Exam Narrative: Middle-age male sitting along the bedside watching TV. He is alert and oriented person place time circumstance. No acute respiratory distress at rest. He is able speak in full paragraphs without dyspnea. Lungs barrel chested with diminished breath sounds diffusely but without rhonchi wheezes or rales. Heart is regular without appreciable murmur rub or gallop. Hands reveal some slight edema of his hands. There is no edema of his humeri. He has 1+ edema of his feet. He is wearing his VERONICA hose Objective Objective Clinical Data: Vital Signs Temperature 36.7 C 03/14/20 07:31 Temperature Source Temporal Artery Scan 03/14/20 07:31 Pulse 82 03/14/20 07:26 Pulse Rhythm Regular 03/14/20 07:31 Pulse 84 03/13/20 12:00 Respiratory Rate 18 03/13/20 17:59 Respiratory Effort Non-Labored 03/14/20 07:31 Respiratory Depth Shallow 03/14/20 07:31 Respiratory Pattern Normal 03/14/20 07:31 Blood Pressure 112/79 03/14/20 07:26 Blood Pressure Mean 88 03/14/20 07:26 Blood Pressure Position Sitting 03/13/20 08:09 Pulse Oximetry 92 L 03/14/20 09:29 Respiratory End-tidal CO2 39 03/10/20 01:37 Oxygen Delivery Method Room Air 03/14/20 09:29 Oxygen Flow Rate 0 03/14/20 09:29 Fraction of Inspired Oxygen (FIO2) 21 03/13/20 21:45 Pain Level 8 03/14/20 08:50 Intake & Output 03/13/20 03/13/20 03/14/20 11:59 23:59 11:59 Intake Total 600 / 840 240 / 840 400 / 400 Output Total 875 / 2675 1800 / 2675 650 / 650 Balance -275 / -1835 -1560 / -1835 -250 / -250 Weight 84.7 kg Intake: Oral 600 / 840 240 / 840 400 / 400 Output: Urine 875 / 2675 1800 / 2675 650 / 650 Other: Urine Color Yellow Pale Light Devi Yellow Urine Appearance Clear Clear Clear Urine Odor None Normal Comment Pt has not voided in over 8 hours. Stool Size Small Stool Characteristics Formed Voiding Methods Bedside Commode Bedside Commode Bedside Commode Laboratory Results WBC 4.09 k/cumm (4.4-10.8) L 03/12/20 06:30 RBC 4.40 m/cumm (4.50-6.00) L 03/12/20 06:30 Hgb 13.8 g/dL (13.5-17.5) 03/12/20 06:30 Hct 42.4 % (40.0-50.0) 03/12/20 06:30 MCV 96.4 fL (80-95) H 03/12/20 06:30 MCH 31.4 pg (27.0-33.0) 03/12/20 06:30 MCHC 32.5 g/dL (32.0-36.0) 03/12/20 06:30 RDW 13.8 % (11.8-14.1) 03/12/20 06:30 Plt Count 146 x1000/uL (130-400) 03/12/20 06:30 MPV 12.6 fL (8.0-11.0) H 03/12/20 06:30 Immature Gran % 0.3 % 03/08/20 15:00 Neutrophils % 69.8 03/08/20 15:00 Lymphocytes % 13.7 03/08/20 15:00 Monocytes % 14.8 03/08/20 15:00 Eosinophils % 1.1 03/08/20 15:00 Basophils % 0.3 03/08/20 15:00 Absolute Neutrophils 6.30 k/cumm (1.2-6.7) 03/08/20 15:00 Absolute Lymphocytes 1.24 k/cumm (1.2-3.4) 03/08/20 15:00 Absolute Monocytes 1.34 k/cumm (0.11-0.7) H 03/08/20 15:00 Absolute Eosinophils 0.10 k/cumm (0.0-0.7) 03/08/20 15:00 Absolute Basophils 0.03 k/cumm (0.0-0.2) 03/08/20 15:00 Sodium 140 mmol/L (136-145) 03/13/20 06:50 Potassium 3.8 mmol/L (3.5-5.1) 03/13/20 06:50 Chloride 104 mmol/L (98-107) 03/13/20 06:50 Carbon Dioxide 33.3 mmol/L (21.0-32.0) H 03/13/20 06:50 Anion Gap 2.7 mmol/L (3-11) L 03/13/20 06:50 BUN 11 mg/dL (7-18) 03/13/20 06:50 Creatinine 0.98 mg/dL (0.70-1.30) 03/13/20 06:50 Estimated GFR/1.73 m2 >= 60.00 (mL/min/1.73m2) 03/13/20 06:50 Glucose 111 mg/dL (74-106) H 03/13/20 06:50 Calcium 8.6 mg/dL (8.5-10.1) 03/13/20 06:50 Magnesium 1.7 mg/dL (1.8-2.4) L 03/12/20 06:30 Total Bilirubin 0.6 mg/dL (0.2-1.0) 03/08/20 15:00 AST 15 U/L (15-37) 03/08/20 15:00 ALT 21 U/L (16-63) 03/08/20 15:00 Alkaline Phosphatase 93 U/L (46-116) 03/08/20 15:00 Troponin I < 0.05 ng/Ml (<0.06) 03/10/20 01:10 NT-Pro-B Natriuret Pep 283 pg/mL (<300) 03/13/20 06:50 Total Protein 7.5 g/dL (6.4-8.2) 03/08/20 15:00 Albumin 3.7 g/dL (3.4-5.0) 03/08/20 15:00 Urine Color Yellow (Yellow) 03/10/20 07:30 Urine Clarity Clear (Clear) 03/10/20 07:30 Urine pH 6.5 (5-8) 03/10/20 07:30 Ur Specific [place] 1.015 (1.005-1.025) 03/10/20 07:30 Urine Protein Negative mg/dL (Negative) 03/10/20 07:30 Urine Ketones Negative mg/dL (Negative) 03/10/20 07:30 Urine Blood Negative (Negative) 03/10/20 07:30 Urine Nitrite Negative (Negative) 03/10/20 07:30 Urine Bilirubin Negative (Negative) 03/10/20 07:30 Urine Urobilinogen 0.2 EU/dL (Up TO 0.2) 03/10/20 07:30 Ur Leukocyte Esterase Negative (Negative) 03/10/20 07:30 Urine RBC 0-2 HPF (0-2) 03/08/20 17:55 Urine WBC 10-20 HPF (0-5) H 03/08/20 17:55 Ur Epithelial Cells Negative HPF (Negative) 03/08/20 17:55 Urine Crystals Negative HPF (Negative) 03/08/20 17:55 Urine Bacteria Negative HPF (Negative) 03/08/20 17:55 Urine Casts Negative LPF (Negative) 03/08/20 17:55 Urine Mucus Moderate (Negative) 03/08/20 17:55 Urine Other Negative (Negative) 03/08/20 17:55 Ur Culture Indicated? Yes 03/08/20 17:55 Urine Glucose Negative mg/dL (Negative) 03/10/20 07:30 Urine Opiates Screen Positive (Negative) A 03/08/20 17:55 Urine Methadone Screen Negative (Negative) 03/08/20 17:55 Ur Barbiturates Screen Negative (Negative) 03/08/20 17:55 Ur Tricyclics Screen Negative (Negative) 03/08/20 17:55 Ur Amphetamines Screen Negative (Negative) 03/08/20 17:55 U Benzodiazepines Scrn Positive (Negative) A 03/08/20 17:55 Urine Cocaine Screen Negative (Negative) 03/08/20 17:55 Ur THC Screen Negative (Negative) 03/08/20 17:55 Ethyl Alcohol < 3.0 mg/dL (<3) 03/08/20 15:00 COVID-19 PCR Negative (Negative) 03/08/20 15:53 Nasopharyn COVID-19 PCR Not Applicable 03/08/20 15:53 Ref Test Perform Site [facility] hospital lab 03/08/20 15:53
[2020-03-14] MEDS: Ibuprofen 800 MG TAB PO ×2 (10:30→17:16)
--- NOTE | 2020-03-14 10:47 | PT.INTREAT ---
Date of service: 03/14/20 Time of Service: 10:47 PT Notes Visit Reasons: RIB FRACTURE, UTI Inpatient Physical Therapy Treatment Note [facility] Date: 03/14/2020 PRECAUTIONS: Fall. Standard. Activity as tolerated. SUBJECTIVE: Patient reports mild discomfort on his left lateral rib area which nurse Mena is aware of. He denies dizziness and states that he feels a lot better than he did yesterday. OBJECTIVE: Finger oximeter on. PAIN: Mild discomfort on lateral rib on the left. BED MOBILITY/TRANSFERS Rolling L/R: Independent Supine-sit: Independent Sit-supine: Independent Sit-stand: Independent Stand-sit: Independent Bed-Chair: Independent Chair-bed: Independent GAIT Assistive Device: No assistive device Weight bearing: Full weight bearing Assist: SBA Distance: 350 feet Deviation: Normal swing through gait pattern. Increasing yevgeniy. Ability for environmental scanning impaired as patient tends overlook edges of obstacles in the hallway unless verbally cued. He also has a mild tendency to veer laterally mostly to the left unless verbally warned. No report of SOB nor dizziness throughout activity. STAIRS: Patient tolerated up and down twelve 4-inch steps and eight 6-inch steps while holding onto B rails with [id number] pattern requiring stand by assist. ASSESSMENT: Patient's yevgeniy improved today compared to yesterday. However, he continues to veer laterally mostly to the left but is able to correct on cue. He hopes to go home but will highly benefit from HH PT to look into safety of entrance steps to reduce fall risk. PLAN: Continue with PT POC as initially established. TREATMENT CODE/TIME: 39002 x 18 minutes beginning at 10:47 AM.
[2020-03-14] MEDS: Ipratropium/Albuterol 4 GM 120 PUFF INH IH ×2 (11:13→17:16)
[2020-03-14 11:17] LABS: Anion Gap 4.6 mmol/L (3-11); BUN 9 mg/dL (7-18); CO2 31.4 mmol/L (21.0-32.0); CREATININE 0.95 mg/dL (0.70-1.30); Calcium 9.2 mg/dL (8.5-10.1); Chloride 103 mmol/L (98-107); Glucose 143 mg/dL (74-106); Magnesium 2.2 mg/dL (1.8-2.4); Potassium 4.4 mmol/L (3.5-5.1); Sodium 139 mmol/L (136-145)
--- NOTE | 2020-03-14 16:45 | PDOC.CMPRO ---
- If Service Date Differs Date of service: 03/14/20 Time of Service: 16:45 Care Management Progress Note S/O: William was sitting up on the edge of his bed when CM met with him. He was pleasant, but quiet and did not engage as well as previous visits. He reported that he was feeling ok today. He had asked for a phone concrete journeyman, which CM delivered for him. Per MD, he would remain at [facility] overnight for PT and monitoring. William reported that he has a phone meeting with his therapist at noon on March 15. He stated that he would rather not leave early in the morning, and would have the phone meeting while at [facility]. CM spoke with Rico Brennan ([phone]) today, who stated that he will pick up attendant William at 5:30 pm, as Rico's schedule allows. Rico stated that he will supply William with some food for him for the weekend. CM set up MOW for William, beginning on March 19. CM also set up options counseling through [facility], which can help support him in the community with case management and resources. William stated that he will be happy to return home, although he feels he has received very good care while at [facility]. CM will continue to follow. A: William is a 54 year old male admitted to [facility] on 03/08/2020 for a rib fracture and UTI. P: Anticipate William will return home when medically cleared by provider. He will be driven home via private vehicle by Rico Brennan at 5:30pm. Rico will bring him shoes to return home with. He will resume services through [facility]. He will have new MOW and support through [facility] for options counseling. He will have a new Trilogy machine upon discharge, coordinated by RT, through [facility]. He will also have new HH RN and PT. CM will continue to support patient and discharge planning considerations.
[2020-03-14] MEDS: Normal Saline Flush 10 ML SYR IVP (17:17)
--- NOTE | 2020-03-14 17:47 | NUR.NOTE ---
Nursing Note: Respiratory therapist in pt room to adjust trilogy to 2l/min for over night. BIPAP remains off at this time, this nurse will assist pt with application upon patient request.
[2020-03-14] MEDS: Pravastatin 20 MG TAB PO (19:33)
[2020-03-14] MEDS: QUEtiapine 300 MG, QUEtiapine 100 MG 400 MG PO (21:46)
[2020-03-14] MEDS: Benztropine 1 MG TAB PO (21:46)
[2020-03-15] VITALS (15 sets, daily range): BP systolic 76–133; BP diastolic 45–98; PULSE 69–87; RESP 1–18; TEMP 36.6–37; O2SAT 92–95
[2020-03-15] MEDS: Heparin 5,000 UNITS/ML VIAL 5000 UNITS SC ×3 (06:06→20:33)
[2020-03-15] MEDS: Ipratropium/Albuterol 4 GM 120 PUFF INH IH ×3 (06:07→17:44)
[2020-03-15] MEDS: buPROPion-XL 150 MG TABCR 300 MG PO (07:40)
[2020-03-15] MEDS: Spironolactone 25 MG TAB 12.5 MG PO (07:40)
[2020-03-15] MEDS: Furosemide 20 MG TAB PO (07:40)
[2020-03-15] MEDS: Gabapentin 600 MG TAB PO ×3 (07:41→20:24)
[2020-03-15] MEDS: Metoprolol CR 25 MG TABCR PO (07:41)
[2020-03-15] MEDS: Potassium Chloride 20 MEQ TABCR PO (07:41)
[2020-03-15] MEDS: Omeprazole 20 MG CAPCR PO (07:41)
[2020-03-15] MEDS: Docusate Sodium 100 MG CAP PO ×2 (07:42→20:24)
[2020-03-15] MEDS: Ibuprofen 800 MG TAB PO (07:42)
[2020-03-15] MEDS: Polyethylene Glycol 3350 17 GM PACKET PO (07:42)
[2020-03-15] MEDS: Normal Saline Flush 10 ML SYR IVP ×2 (07:43→15:41)
[2020-03-15] MEDS: Budesonide/Formoterol 160/4.5 6 GM 60 PUFF INH IH ×2 (08:07→20:23)
[2020-03-15 08:34] LABS: Abs Immature Grans 0.03 k/cumm (0.0-0.09); Absolute Basophil Count 0.03 k/cumm (0.0-0.2); Absolute Eosinophil Count 0.21 k/cumm (0.0-0.7); Absolute Lymphocyte Count 1.06 k/cumm (1.2-3.4); Absolute Monocyte Count 0.71 k/cumm (0.11-0.7); Absolute Neutrophil Count 3.96 k/cumm (1.2-6.7); Basophils % 0.5; Eosinophils % 3.5; HCT 46.1 % (40.0-50.0); HGB 15.1 g/dL (13.5-17.5); Immature Grans % 0.5 %; Lymphocytes % 17.7; Mean Corp. HGB Concentration 32.8 g/dL (32.0-36.0); Mean Corpuscular Hemoglobin 31.5 pg (27.0-33.0); Mean Platelet Volume 11.5 fL (8.0-11.0); Monocytes % 11.8; Platelet Count 187 x1000/uL (130-400); RBC Distribution Width 13.9 % (11.8-14.1)
[2020-03-15 08:46] LABS: ALT 77 U/L (16-63); AST 53 U/L (15-37); Albumin 3.2 g/dL (3.4-5.0); Alkaline Phosphatase 78 U/L (46-116); Anion Gap 7.5 mmol/L (3-11); BUN 17 mg/dL (7-18); Bilirubin, Total 0.3 mg/dL (0.2-1.0); CO2 28.5 mmol/L (21.0-32.0); Chloride 101 mmol/L (98-107); Glucose 130 mg/dL (74-106); Potassium 4.2 mmol/L (3.5-5.1); Sodium 137 mmol/L (136-145); Total Protein 6.5 g/dL (6.4-8.2)
--- NOTE | 2020-03-15 09:30 | PGE_ITS ---
Date of Service Date of service: 03/15/20 Time of Service: 09:30 Assessment and Plan Assessment and plan (1) Syncope: Status: Chronic Assessment and plan: No evidence for arrhythmias on pacer/ICD interrogation. He has been V paced and A sensed. He is now off tele. BP has been low today as noted above. Will hold diuretics and Toprol XL and lisinopril. Monitor BP overnight. If improving then consider dc tomorrow on reduced frequency of diuretics (perhaps every other day) and resume Toprol XL at prior dose w/ reduced lisinopril. Qualifiers: Syncope type: unspecified Qualified Code(s): R55 - Syncope and collapse (2) Left rib fracture: Status: Acute Assessment and plan: Rib pain is stable. continue pulm. toiletry Qualifiers: Encounter type: subsequent encounter Rib fracture type: multiple ribs Fracture type: closed Fracture healing: with routine healing Qualified Code(s): S22.42XD - Multiple fractures of ribs, left side, subsequent encounter for fracture with routine healing (3) COPD (chronic obstructive pulmonary disease): Status: Chronic Assessment and plan: Continue current inhalers along with pulmonary toiletry with Acapella and incentive spirometry. Patient would benefit from nocturnal oxygen as he has significant nocturnal desaturation. This will be added to his orders along with his trilogy machine. He needs 2 L/min per nasal cannula continuous flow throughout the night and whenever he is asleep to maintain his oxygen saturation. Qualifiers: COPD type: unspecified COPD Qualified Code(s): J44.9 - Chronic obstructive pulmonary disease, unspecified (4) Biventricular implantable cardioverter-defibrillator (ICD) in situ: Status: Chronic Assessment and plan: His ICD was interrogated on Wednesday, March 11. There is no abnormality. He has 21 months left of battery life. Further follow-up with Dr. Scott. (5) Ambulatory dysfunction: Status: Acute Assessment and plan: Continue physical therapy for balance and gait training and strengthening and reconditioning. He would benefit from home PT upon discharge. I have relayed these concerns to the care management who will add this to his outpatient care plans (6) Discharge planning issues: Status: Acute Assessment and plan: He will be driven home via private vehicle by a friend when ready. He will resume services through [facility]. He will have new MOW and support through [facility] for options counseling. He will have a new Trilogy machine upon discharge, coordinated by RT, through [facility]. (7) PTSD (post-traumatic stress disorder): Status: Chronic Assessment and plan: cont. Wellbutrin and Seroquel. He may need further adjustment by his PCP however he seems to be doing ok on the reduced dose of Seroquel 400 mg HS (he previously was on 800 mg HS). He has some involuntary muscle movements but remains on cogentin. I think that his psych. meds will need to be re-evaluated as an outpatient. Subjective Subjective Interval history since last seen: Overall Mr. Fulton feels improved. He denies any dizzy spells nevertheless his blood pressures are significantly lower today. Systolic blood pressures were in the high 70s earlier this morning and are now in the low 90s. Although I ordered his morning diuretics and Toprol to be held prior to the 8:30 AM dose his morning dose and already been given to him. I did hold his lisinopril which was scheduled for noon. I thought perhaps his blood pressure would come up higher into the low 100s later in the day allowing for us to discharge him home this afternoon but unfortunately he still in the 90s. I am going to continue to withhold his medications overnight and into tomorrow morning and see how his blood pressure does. As he is currently asymptomatic I do not feel compelled to give him IV fluids but will let him equilibrate on his own. I think when he returns home his diuretic dose will have to be adjusted and perhaps be given on an every other day basis rather than daily. He does have a nonischemic cardiomyopathy which has improved with treatment and there fore I am reluctant to discontinue all of his anti-CHF medications. I had written for him to start a lower dose of lisinopril. He previously was on 10 mg daily and I cut it down to 5 mg daily. Earlier in a week his diuretic was resumed. I think this may need to be withheld upon discharge or decreased to an every other day dose. Unfortunately do not think [facility] cognitive facilities are such that he can accurately adjust his own medications based on his degree of edema or change in his weight. Exam Narrative Exam Narrative: Middle-age male sitting up in his chair he is alert and appropriate watching TV. He denies any acute complaints and specifically denied any dizziness or dyspnea or discomfort. Lungs are clear to auscultation. Heart is regular Abdomen soft nontender Hand edema has improved remarkably and there is no visible leg or pedal edema. Neuro: he is alert and oriented, however he has a visible tremors in his hands and some facial twitching. This may be some EPS effects of his psychiatric meds Objective Objective Clinical Data: Abnormal lab results 03/14/20 03/15/20 03/15/20 Range/Units 11:03 08:25 08:25 MCV 96.0 H (80-95) fL MPV 11.5 H (8.0-11.0) fL Absolute Lymphocytes 1.06 L (1.2-3.4) k/cumm Absolute Monocytes 0.71 H (0.11-0.7) k/cumm Glucose 143 H 130 H (74-106) mg/dL AST 53 H (15-37) U/L ALT 77 H (16-63) U/L Albumin 3.2 L (3.4-5.0) g/dL Vital Signs Temperature 37.2 C 03/14/20 21:52 Temperature Source Temporal Artery Scan 03/14/20 07:31 Pulse 71 03/15/20 07:18 Pulse Rhythm Regular 03/15/20 07:54 Pulse 84 03/13/20 12:00 Respiratory Rate 18 03/13/20 17:59 Respiratory Effort Non-Labored 03/15/20 07:54 Respiratory Depth Normal 03/15/20 07:54 Respiratory Pattern Normal 03/15/20 07:54 Blood Pressure 90/55 L 03/15/20 07:18 Blood Pressure Mean 62 03/15/20 07:18 Blood Pressure Position Sitting 03/13/20 08:09 Pulse Oximetry 93 L 03/15/20 07:18 Respiratory End-tidal CO2 39 03/10/20 01:37 Oxygen Delivery Method Room Air 03/14/20 19:40 Oxygen Flow Rate 2 03/15/20 05:00 Fraction of Inspired Oxygen (FIO2) 21 03/13/20 21:45 Pain Level 7 03/15/20 07:42 Intake & Output 03/14/20 03/14/20 03/15/20 11:59 23:59 11:59 Intake Total 900 / 1850 950 / 1850 Output Total 1300 / 3025 1725 / 3025 Balance -400 / -1175 -775 / -1175 Intake: IV Oral 900 / 1840 940 / 1840 Output: Urine 1300 / 3025 1725 / 3025 Other: Urine Color Yellow Pale Yellow Urine Appearance Clear Clear Clear Urine Odor Normal None Comment Mixed with stool Stool Occult Blood Negative Stool Size Small Small Stool Characteristics Soft Formed Formed Voiding Methods Bedside Commode Urinal Laboratory Results WBC 6.00 k/cumm (4.4-10.8) 03/15/20 08:25 RBC 4.80 m/cumm (4.50-6.00) 03/15/20 08:25 Hgb 15.1 g/dL (13.5-17.5) 03/15/20 08:25 Hct 46.1 % (40.0-50.0) 03/15/20 08:25 MCV 96.0 fL (80-95) H 03/15/20 08:25 MCH 31.5 pg (27.0-33.0) 03/15/20 08:25 MCHC 32.8 g/dL (32.0-36.0) 03/15/20 08:25 RDW 13.9 % (11.8-14.1) 03/15/20 08:25 Plt Count 187 x1000/uL (130-400) 03/15/20 08:25 MPV 11.5 fL (8.0-11.0) H 03/15/20 08:25 Immature Gran % 0.5 % 03/15/20 08:25 Neutrophils % 66.0 03/15/20 08:25 Lymphocytes % 17.7 03/15/20 08:25 Monocytes % 11.8 03/15/20 08:25 Eosinophils % 3.5 03/15/20 08:25 Basophils % 0.5 03/15/20 08:25 Absolute Neutrophils 3.96 k/cumm (1.2-6.7) 03/15/20 08:25 Absolute Lymphocytes 1.06 k/cumm (1.2-3.4) L 03/15/20 08:25 Absolute Monocytes 0.71 k/cumm (0.11-0.7) H 03/15/20 08:25 Absolute Eosinophils 0.21 k/cumm (0.0-0.7) 03/15/20 08:25 Absolute Basophils 0.03 k/cumm (0.0-0.2) 03/15/20 08:25 ABG Sample Site Cancelled 03/13/20 11:18 ABG pH Cancelled 03/13/20 11:18 ABG pCO2 Cancelled 03/13/20 11:18 ABG pO2 Cancelled 03/13/20 11:18 ABG HCO3 Cancelled 03/13/20 11:18 ABG Total CO2 Cancelled 03/13/20 11:18 ABG O2 Saturation Cancelled 03/13/20 11:18 ABG Base Excess Cancelled 03/13/20 11:18 Oxygen Liter Flow Cancelled 03/13/20 11:18 FiO2 Cancelled 03/13/20 11:18 Sodium 137 mmol/L (136-145) 03/15/20 08:25 Potassium 4.2 mmol/L (3.5-5.1) 03/15/20 08:25 Chloride 101 mmol/L (98-107) 03/15/20 08:25 Carbon Dioxide 28.5 mmol/L (21.0-32.0) 03/15/20 08:25 Anion Gap 7.5 mmol/L (3-11) 03/15/20 08:25 BUN 17 mg/dL (7-18) D 03/15/20 08:25 Creatinine 1.20 mg/dL (0.70-1.30) 03/15/20 08:25 Estimated GFR/1.73 m2 >= 60.00 (mL/min/1.73m2) 03/15/20 08:25 Glucose 130 mg/dL (74-106) H 03/15/20 08:25 Calcium 9.0 mg/dL (8.5-10.1) 03/15/20 08:25 Magnesium 2.2 mg/dL (1.8-2.4) 03/14/20 11:03 Total Bilirubin 0.3 mg/dL (0.2-1.0) 03/15/20 08:25 AST 53 U/L (15-37) H 03/15/20 08:25 ALT 77 U/L (16-63) H 03/15/20 08:25 Alkaline Phosphatase 78 U/L (46-116) 03/15/20 08:25 Troponin I < 0.05 ng/Ml (<0.06) 03/10/20 01:10 NT-Pro-B Natriuret Pep 283 pg/mL (<300) 03/13/20 06:50 Total Protein 6.5 g/dL (6.4-8.2) 03/15/20 08:25 Albumin 3.2 g/dL (3.4-5.0) L 03/15/20 08:25 Urine Color Yellow (Yellow) 03/10/20 07:30 Urine Clarity Clear (Clear) 03/10/20 07:30 Urine pH 6.5 (5-8) 03/10/20 07:30 Ur Specific [place] 1.015 (1.005-1.025) 03/10/20 07:30 Urine Protein Negative mg/dL (Negative) 03/10/20 07:30 Urine Ketones Negative mg/dL (Negative) 03/10/20 07:30 Urine Blood Negative (Negative) 03/10/20 07:30 Urine Nitrite Negative (Negative) 03/10/20 07:30 Urine Bilirubin Negative (Negative) 03/10/20 07:30 Urine Urobilinogen 0.2 EU/dL (Up TO 0.2) 03/10/20 07:30 Ur Leukocyte Esterase Negative (Negative) 03/10/20 07:30 Urine RBC 0-2 HPF (0-2) 03/08/20 17:55 Urine WBC 10-20 HPF (0-5) H 03/08/20 17:55 Ur Epithelial Cells Negative HPF (Negative) 03/08/20 17:55 Urine Crystals Negative HPF (Negative) 03/08/20 17:55 Urine Bacteria Negative HPF (Negative) 03/08/20 17:55 Urine Casts Negative LPF (Negative) 03/08/20 17:55 Urine Mucus Moderate (Negative) 03/08/20 17:55 Urine Other Negative (Negative) 03/08/20 17:55 Ur Culture Indicated? Yes 03/08/20 17:55 Urine Glucose Negative mg/dL (Negative) 03/10/20 07:30 Urine Opiates Screen Positive (Negative) A 03/08/20 17:55 Urine Methadone Screen Negative (Negative) 03/08/20 17:55 Ur Barbiturates Screen Negative (Negative) 03/08/20 17:55 Ur Tricyclics Screen Negative (Negative) 03/08/20 17:55 Ur Amphetamines Screen Negative (Negative) 03/08/20 17:55 U Benzodiazepines Scrn Positive (Negative) A 03/08/20 17:55 Urine Cocaine Screen Negative (Negative) 03/08/20 17:55 Ur THC Screen Negative (Negative) 03/08/20 17:55 Ethyl Alcohol < 3.0 mg/dL (<3) 03/08/20 15:00 COVID-19 PCR Negative (Negative) 03/08/20 15:53 Nasopharyn COVID-19 PCR Not Applicable 03/08/20 15:53 Ref Test Perform Site [facility] lab 03/08/20 15:53
[2020-03-15] MEDS: Lidocaine 5% Patch 2 PATCH TP (10:11)
[2020-03-15] MEDS: Magnesium Gluconate 500 MG TAB PO (10:11)
--- NOTE | 2020-03-15 10:19 | PT.INDS ---
Date of service: 03/15/20 Time of Service: 10:19 PT Notes Visit Reasons: RIB FRACTURE, UTI Inpatient Physical Therapy Discharge Summary Dates: 03/15/2020 Dates of Service: 03/13/2020 through 03/15/2020 Referring Doctor: Sp Williamson MD PT Orders: PT CONSULT: Safety consult for DC Precautions: Fall. Standard. Activity as tolerated. Patient Profile/Admitting Diagnosis: William is a 54-year-old male with pre-existing unspecified psychiatric disorder, COPD and CHF who presented to the ED on 03/08/2020 with chief presentation of generalized weakness, decreased appetite, left-sided chest pain, and shortness of breath that have all been evolving for the past 5 days prior to admission. Patient is diagnosed with syncope, hypotension, left rib fracture, altered mental status, COPD, and with ICD in situ. PMHX: Medical History Biventricular implantable cardioverter-defibrillator (ICD) in situ (Chronic) History of alcohol abuse (Resolved) History of tobacco abuse (Resolved) LBBB (left bundle branch block) (Chronic) Nonischemic dilated cardiomyopathy (Chronic) Severe chronic obstructive pulmonary disease (Chronic) Systolic and diastolic CHF, chronic (Chronic) Social History/Home Situation: William lives alone in an apartment with 12 steps to enter without rails. He states that he took care of everything on his own and has not received any community support. Per case management notes: William lives alone in a two story house in [place]. He is disabled and spends his time fishing, hunting, and woodworking. William shares he has a few friends he sees occasionally and states he has family nearby but is estranged from them. William reports he is independent with his ADLs, drives, and takes care of his home, but adds it is not as clean as it should be. He states he would love to have someone cook his meals and help clean his house. He further reports approximately 1 and 1/2 weeks ago, he began falling without warning and for no apparent reason. He shares his bedroom is on the second floor of the house and he recently fell down the 12 steps to the downstairs. Equipment Owned/DME: None Subjective: Patient states that he has not had dizziness since yesterday. He is only agreeable to doing strengthening exercises but refused to go for walk and to practice on the stairs today. Objective: General Observation: TEDS in place. Mental Status: Alert and oriented as to person and place. Patient's ability to process information given to him took quite a lot longer today than it did the previous days. Pain: None reported ROM: Right Upper Extremity: Shoulder Flexion WFL. Shoulder abduction WFL. Elbow flexion WFL. Wrist flexion WFL. Opening and closing of hand WFL. Left Upper Extremity: Shoulder Flexion WFL. Shoulder abduction WFL. Elbow flexion WFL. Wrist flexion WFL. Opening and closing of hand WFL. Right Lower Extremity: Hip flexion WFL. Hip abduction WFL. Knee flexion WFL. Ankle dorsiflexion WFL. Ankle plantarflexion WFL. Left Lower Extremity: Hip flexion WFL. Hip abduction WFL. Knee flexion WFL. Ankle dorsiflexion WFL. Ankle plantarflexion WFL. Strength: Right Upper Extremity: Shoulder flexors 4/5. Shoulder abductors 4/5. Elbow flexors 5/5. Elbow extensors 5/5. Enrollment Management Manager strong. Left Upper Extremity: Shoulder flexors 4/5. Shoulder abductors 4/5. Elbow flexors 5/5. Elbow extensors 5/5. Enrollment Management Manager strong. Right Lower Extremity: Hip flexors 4/5. Hip abductors 4/5. Knee flexors 5/5. Knee extensors 5/5. Ankle dorsiflexors 5/5. Ankle plantarflexors 5/5. Left Lower Extremity:Hip flexors 4/5. Hip abductors 4/5. Knee flexors 5/5. Knee extensors 5/5. Ankle dorsiflexors 5/5. Ankle plantarflexors 5/5. Sensation: Intact as to pain and pressure on bilateral lower extremities. Bed Mobility/Transfers: Rolling independent Supine to sit independent Sit to supine independent Sit to stand independent Stand to sit independent Bed to chair independent Chair to bed independent Gait: Patient refused any gait activity and stair activity and stated that his ribs hurt and gave no further explanation for his refusal. Balance: Static Sitting: Normal Dynamic Sitting: Normal Static Standing: Good Dynamic Standing: Fair Assessment: Patient initially demonstrated impairment in balance, unsteadiness in gait, lightheadedness which all increase risk for falling on initial evaluation. With skilled PT services patient was able to meet transfer goals. He however refused to go any further with ambulation and stair negotiation activity today stating that he is all set with them. He complained about his ribs hurting and nurse is aware. Goals: Goals X1 week 1. Sit-Stand independent MET 2. Stand-Sit independent MET 3. Bed-Chair independent MET 4. Chair-Bed independent MET 5. Independent gait on level surface with use of least restrictive device for at least 300 feet without report of pain nor dyspnea NOT MET 6. Independent stair negotiation while holding onto bilateral rails for at least 15 steps without report of pain nor dyspnea NOT MET 7. Independent with home exercise program NOT MET 8. Good static and dynamic standing balance/tolerance MET DISCHARGE RECOMMENDATIONS: Patient will benefit from home health PT services in order to assess safety of stairs, continue with stair negotiation training in the home environment, assess home safety, identify additional equipment needs, and establish a functional maintenance program that will increase ability of patient to remain at home. Patient may benefit from a single-point cane for community ambulation to maximize safety. TREATMENT CODE/TIME: 10308 x 27 minutes, beginning at 10:19 AM. Thank you very much for this referral. Valentine Tavera PT, DPT, [facility] [place], [place]
--- NOTE | 2020-03-15 12:17 | PDOC.CMPRO ---
- If Service Date Differs Date of service: 03/15/20 Time of Service: 12:17 Care Management Progress Note S/O: William was sitting up in his chair when CM met with him. He reported that he was feeling better today. Per MD, since his blood pressure has been low today, he will stay for med changes and monitoring. He will be transferred out of the ICU to the floor, per RN. CM contacted Rico Brennan ([phone]) to inform him of the change of discharge plan. He stated that if William discharges on Wednesday, he would need to arrive prior to 3:30pm in order to warp picker William, as he has an afternoon obligation. CM contacted [facility] to inform them of the possible discharge on Wednesday. [facility] services and MOW services through [facility] will begin on Wednesday. Rico will make sure he has food to get him through the weekend, and will check in on him often. CM will continue to follow. A: William is a 54 year old male admitted to [facility] on 03/08/2020 for a rib fracture and UTI. P: Anticipate William will return home when medically cleared by provider. He will be driven home via private vehicle by Rico Brennan. Rico will bring him shoes to return home with. He will resume services through [facility]. He will have new MOW and support through [facility] for options counseling. He will have a new Trilogy machine upon discharge, coordinated by RT, through [facility]. He will also have new HH RN and PT. CM will continue to support patient and discharge planning considerations.
[2020-03-15] MEDS: Acetaminophen 325 MG TAB 650 MG PO (20:24)
[2020-03-15] MEDS: QUEtiapine 300 MG, QUEtiapine 100 MG 400 MG PO (20:25)
[2020-03-15] MEDS: Pravastatin 20 MG TAB PO (20:25)
[2020-03-15] MEDS: Benztropine 1 MG TAB PO (20:26)
[2020-03-15] MEDS: Lidocaine Patch Removal 2 EACH TD (20:27)
[2020-03-16] VITALS (7 sets, daily range): BP systolic 92–145; BP diastolic 58–79; PULSE 78–97; RESP 18; TEMP 36.2–37; O2SAT 92–95
[2020-03-16] MEDS: Ipratropium/Albuterol 4 GM 120 PUFF INH IH ×5 (00:30→20:58)
[2020-03-16] MEDS: Heparin 5,000 UNITS/ML VIAL 5000 UNITS SC ×2 (06:02→14:16)
[2020-03-16] MEDS: Polyethylene Glycol 3350 17 GM PACKET PO (08:00)
[2020-03-16] MEDS: Docusate Sodium 100 MG CAP PO ×2 (08:01→20:59)
[2020-03-16] MEDS: Omeprazole 20 MG CAPCR PO (08:01)
[2020-03-16] MEDS: Potassium Chloride 20 MEQ TABCR PO (08:01)
[2020-03-16] MEDS: Gabapentin 600 MG TAB PO ×3 (08:01→20:59)
[2020-03-16] MEDS: buPROPion-XL 150 MG TABCR 300 MG PO (08:01)
[2020-03-16] MEDS: Budesonide/Formoterol 160/4.5 6 GM 60 PUFF INH IH ×2 (09:31→20:58)
[2020-03-16] MEDS: Lidocaine 5% Patch 2 PATCH TP (09:35)
[2020-03-16] MEDS: Magnesium Gluconate 500 MG TAB PO (09:36)
--- NOTE | 2020-03-16 14:26 | CMPROGNOTE_ITS ---
- If Service Date Differs Date of service: 03/16/20 Time of Service: 14:26 Care Management Progress Note S/O: William remains acute today he was started on mediation to treat his hypotension. If he tolerates he may return home on Wednesday. His friend Rico has called frequently with concerns and has been updated by nursing. All services have been ordered and will be available at time of discharge. Meals on wheels to start on Wednesday. William will need a neurology follow up as outpatient and hanna nue his service through [facility] as an outpatient. Home Health was updated on patients status. A: William is a 54 year old male admitted to [facility] on 03/08/2020 for a rib fracture and UTI. P: Anticipate William will return home when medically cleared by provider. He will be driven home via private vehicle by Rico Brennan. Rico will bring him shoes to return home with. He will resume services through [facility]. He will have new MOW and support through [facility] for options counseling. He will have a new Trilogy machine upon discharge, coordinated by RT, through [facility]. He will also have new HH RN and PT. CM will continue to support patient and discharge planning considerations.
--- NOTE | 2020-03-16 14:30 | W.PM.PROGNOT ---
Date of Service Date of service: 03/16/20 Time of Service: 14:30 Assessment and Plan Assessment and plan (1) Orthostatic hypotension: Status: Acute Assessment and plan: most likely related to numerous falls and rib fractures in the past. I think adding an agent to control this (florinef) is warranted. Will monitor BP's with addition of fluodrocortisone. (2) Syncope: Status: Chronic Assessment and plan: No arrhythmic events on AICD interrogation or tele. However, was hypotensive in setting of dehydration and now, with rehydration, remains orthostatic. As above, will trial florinef. Qualifiers: Syncope type: unspecified Qualified Code(s): R55 - Syncope and collapse (3) Left rib fracture: Status: Acute Assessment and plan: Continue IS Qualifiers: Encounter type: subsequent encounter Rib fracture type: multiple ribs Fracture type: closed Fracture healing: with routine healing Qualified Code(s): S22.42XD - Multiple fractures of ribs, left side, subsequent encounter for fracture with routine healing (4) COPD (chronic obstructive pulmonary disease): Status: Chronic Assessment and plan: Continue current therapy - not in acute exacerbation. Qualifiers: COPD type: unspecified COPD Qualified Code(s): J44.9 - Chronic obstructive pulmonary disease, unspecified (5) Biventricular implantable cardioverter-defibrillator (ICD) in situ: Status: Chronic Assessment and plan: No arrhythmic events per interrogation on this admission. Follow up as outpatient (6) Ambulatory dysfunction: Status: Acute Assessment and plan: Continue to work with PT - also, address orthostasis (7) PTSD (post-traumatic stress disorder): Status: Chronic Assessment and plan: continue Wellbutrin and decreased dose of Seroquel. He will benefit from outpatient neurology and psychiatry follow up - especially, since patient's close friend called the hospital stating that there has been a decline in the last month, that the patient has been more sleepy.. (8) Discharge planning issues: Status: Acute Assessment and plan: Plan for discharge home tomorrow with a Trilogy machine (9) DVT prophylaxis: Status: Acute Assessment and plan: SC heparin Subjective Subjective Interval history since last seen: Orthostatic on BP check, but states he didn't get dizzy this time. Denies dizziness, chest pain, shortness of breath, nausea, feeling thirsty. When offered a choice to stay and try a medicine for orthostatic hypotension here or go home and try it there, the patient chose to stay here for one more night. Exam Narrative Exam Narrative: General: Very pleasant middle-aged male, A&Ox3, sitting comfortably in a chair, cautious in answering questions, facial tick noted, no skin tenting HEENT: EOMI, MMM Heart: RRR, no m/r/g Lungs: faint crackles at B bases Abdomen: soft, nontender, nondistended Extremities: no e/c/c BLE's Objective Objective Clinical Data: Vital Signs Temperature 36.8 C 03/16/20 08:31 Temperature Source Tympanic 03/16/20 08:31 Pulse 89 03/16/20 11:10 Pulse Rhythm Regular 03/16/20 08:41 Pulse 84 03/13/20 12:00 Respiratory Rate 18 03/16/20 08:31 Respiratory Effort Non-Labored 03/16/20 08:41 Respiratory Depth Normal 03/16/20 08:41 Respiratory Pattern Normal 03/16/20 08:41 Blood Pressure 112/75 03/16/20 11:10 Blood Pressure Mean 106 03/15/20 13:07 Blood Pressure Position Sitting 03/13/20 08:09 Pulse Oximetry 92 L 03/16/20 08:31 Respiratory End-tidal CO2 39 03/10/20 01:37 Oxygen Delivery Method Room Air 03/16/20 08:31 Oxygen Flow Rate 2 03/16/20 09:40 Fraction of Inspired Oxygen (FIO2) 21 03/13/20 21:45 Pain Level 6 03/16/20 14:15 Intake & Output 03/15/20 03/16/20 03/16/20 23:59 11:59 23:59 Intake Total 250 / 720 680 / 680 Output Total 350 / 700 Balance - / 20 680 / 680 Weight 79.5 kg Intake: Oral 250 / 700 680 / 680 Output: Urine 350 / 700 Other: Urine Color Yellow Yellow Urine Appearance Clear Clear Urine Odor Normal Comment Amount approximated, mixed with toilet paper Per patient rate. Stool Size Small Stool Characteristics Soft Formed Voiding Methods Bedside Commode Toilet Laboratory Results WBC 6.00 k/cumm (4.4-10.8) 03/15/20 08:25 RBC 4.80 m/cumm (4.50-6.00) 03/15/20 08:25 Hgb 15.1 g/dL (13.5-17.5) 03/15/20 08:25 Hct 46.1 % (40.0-50.0) 03/15/20 08:25 MCV 96.0 fL (80-95) H 03/15/20 08:25 MCH 31.5 pg (27.0-33.0) 03/15/20 08:25 MCHC 32.8 g/dL (32.0-36.0) 03/15/20 08:25 RDW 13.9 % (11.8-14.1) 03/15/20 08:25 Plt Count 187 x1000/uL (130-400) 03/15/20 08:25 MPV 11.5 fL (8.0-11.0) H 03/15/20 08:25 Immature Gran % 0.5 % 03/15/20 08:25 Neutrophils % 66.0 03/15/20 08:25 Lymphocytes % 17.7 03/15/20 08:25 Monocytes % 11.8 03/15/20 08:25 Eosinophils % 3.5 03/15/20 08:25 Basophils % 0.5 03/15/20 08:25 Absolute Neutrophils 3.96 k/cumm (1.2-6.7) 03/15/20 08:25 Absolute Lymphocytes 1.06 k/cumm (1.2-3.4) L 03/15/20 08:25 Absolute Monocytes 0.71 k/cumm (0.11-0.7) H 03/15/20 08:25 Absolute Eosinophils 0.21 k/cumm (0.0-0.7) 03/15/20 08:25 Absolute Basophils 0.03 k/cumm (0.0-0.2) 03/15/20 08:25 ABG Sample Site Cancelled 03/13/20 11:18 ABG pH Cancelled 03/13/20 11:18 ABG pCO2 Cancelled 03/13/20 11:18 ABG pO2 Cancelled 03/13/20 11:18 ABG HCO3 Cancelled 03/13/20 11:18 ABG Total CO2 Cancelled 03/13/20 11:18 ABG O2 Saturation Cancelled 03/13/20 11:18 ABG Base Excess Cancelled 03/13/20 11:18 Oxygen Liter Flow Cancelled 03/13/20 11:18 FiO2 Cancelled 03/13/20 11:18 Sodium 137 mmol/L (136-145) 03/15/20 08:25 Potassium 4.2 mmol/L (3.5-5.1) 03/15/20 08:25 Chloride 101 mmol/L (98-107) 03/15/20 08:25 Carbon Dioxide 28.5 mmol/L (21.0-32.0) 03/15/20 08:25 Anion Gap 7.5 mmol/L (3-11) 03/15/20 08:25 BUN 17 mg/dL (7-18) D 03/15/20 08:25 Creatinine 1.20 mg/dL (0.70-1.30) 03/15/20 08:25 Estimated GFR/1.73 m2 >= 60.00 (mL/min/1.73m2) 03/15/20 08:25 Glucose 130 mg/dL (74-106) H 03/15/20 08:25 Calcium 9.0 mg/dL (8.5-10.1) 03/15/20 08:25 Magnesium 2.2 mg/dL (1.8-2.4) 03/14/20 11:03 Total Bilirubin 0.3 mg/dL (0.2-1.0) 03/15/20 08:25 AST 53 U/L (15-37) H 03/15/20 08:25 ALT 77 U/L (16-63) H 03/15/20 08:25 Alkaline Phosphatase 78 U/L (46-116) 03/15/20 08:25 Troponin I < 0.05 ng/Ml (<0.06) 03/10/20 01:10 NT-Pro-B Natriuret Pep 283 pg/mL (<300) 03/13/20 06:50 Total Protein 6.5 g/dL (6.4-8.2) 03/15/20 08:25 Albumin 3.2 g/dL (3.4-5.0) L 03/15/20 08:25 Urine Color Yellow (Yellow) 03/10/20 07:30 Urine Clarity Clear (Clear) 03/10/20 07:30 Urine pH 6.5 (5-8) 03/10/20 07:30 Ur Specific [place] 1.015 (1.005-1.025) 03/10/20 07:30 Urine Protein Negative mg/dL (Negative) 03/10/20 07:30 Urine Ketones Negative mg/dL (Negative) 03/10/20 07:30 Urine Blood Negative (Negative) 03/10/20 07:30 Urine Nitrite Negative (Negative) 03/10/20 07:30 Urine Bilirubin Negative (Negative) 03/10/20 07:30 Urine Urobilinogen 0.2 EU/dL (Up TO 0.2) 03/10/20 07:30 Ur Leukocyte Esterase Negative (Negative) 03/10/20 07:30 Urine RBC 0-2 HPF (0-2) 03/08/20 17:55 Urine WBC 10-20 HPF (0-5) H 03/08/20 17:55 Ur Epithelial Cells Negative HPF (Negative) 03/08/20 17:55 Urine Crystals Negative HPF (Negative) 03/08/20 17:55 Urine Bacteria Negative HPF (Negative) 03/08/20 17:55 Urine Casts Negative LPF (Negative) 03/08/20 17:55 Urine Mucus Moderate (Negative) 03/08/20 17:55 Urine Other Negative (Negative) 03/08/20 17:55 Ur Culture Indicated? Yes 03/08/20 17:55 Urine Glucose Negative mg/dL (Negative) 03/10/20 07:30 Urine Opiates Screen Positive (Negative) A 03/08/20 17:55 Urine Methadone Screen Negative (Negative) 03/08/20 17:55 Ur Barbiturates Screen Negative (Negative) 03/08/20 17:55 Ur Tricyclics Screen Negative (Negative) 03/08/20 17:55 Ur Amphetamines Screen Negative (Negative) 03/08/20 17:55 U Benzodiazepines Scrn Positive (Negative) A 03/08/20 17:55 Urine Cocaine Screen Negative (Negative) 03/08/20 17:55 Ur THC Screen Negative (Negative) 03/08/20 17:55 Ethyl Alcohol < 3.0 mg/dL (<3) 03/08/20 15:00 COVID-19 PCR Negative (Negative) 03/08/20 15:53 Nasopharyn COVID-19 PCR Not Applicable 03/08/20 15:53 Ref Test Perform Site [facility] lab 03/08/20 15:53
[2020-03-16] MEDS: Fludrocortisone 0.1 MG TAB PO (15:34)
[2020-03-16] MEDS: Acetaminophen 325 MG TAB 650 MG PO (18:31)
[2020-03-16] MEDS: QUEtiapine 300 MG, QUEtiapine 100 MG 400 MG PO (20:59)
[2020-03-16] MEDS: clonazePAM 1 MG TAB PO ×2 (20:59→22:35)
[2020-03-16] MEDS: Benztropine 1 MG TAB PO (20:59)
[2020-03-16] MEDS: Pravastatin 20 MG TAB PO (21:00)
[2020-03-16] MEDS: Lidocaine Patch Removal 2 EACH TD (21:02)
[2020-03-17] MEDS: Ipratropium/Albuterol 4 GM 120 PUFF INH IH ×3 (00:37→11:20)
[2020-03-17] MEDS: clonazePAM 1 MG TAB PO ×2 (03:06→06:42)
[2020-03-17 04:00] VITALS: BP 130/74; PULSE 82; RESP 18; TEMP 36.8; O2SAT 93
[2020-03-17] MEDS: Heparin 5,000 UNITS/ML VIAL 5000 UNITS SC ×2 (06:20→13:53)
[2020-03-17] MEDS: Normal Saline Flush 10 ML SYR IVP (06:43)
[2020-03-17 08:05] VITALS: BP 114/75; PULSE 92; RESP 18; TEMP 36.6; O2SAT 91
[2020-03-17] MEDS: buPROPion-XL 150 MG TABCR 300 MG PO (08:10)
[2020-03-17] MEDS: Budesonide/Formoterol 160/4.5 6 GM 60 PUFF INH IH (08:11)
[2020-03-17] MEDS: Albuterol HFA 8 GM 60 PUFF INH IH (08:11)
[2020-03-17 08:12] LABS: HCT 45.8 % (40.0-50.0); HGB 15.5 g/dL (13.5-17.5); Mean Corp. HGB Concentration 33.8 g/dL (32.0-36.0); Mean Corpuscular Hemoglobin 31.8 pg (27.0-33.0); Mean Platelet Volume 11.1 fL (8.0-11.0); Platelet Count 188 x1000/uL (130-400); RBC 4.87 m/cumm (4.50-6.00); RBC Distribution Width 13.4 % (11.8-14.1); White Blood Cell Count 6.25 k/cumm (4.4-10.8)
[2020-03-17] MEDS: Docusate Sodium 100 MG CAP PO (08:12)
[2020-03-17] MEDS: Polyethylene Glycol 3350 17 GM PACKET PO (08:12)
[2020-03-17] MEDS: Fludrocortisone 0.1 MG TAB PO (08:12)
[2020-03-17] MEDS: Omeprazole 20 MG CAPCR PO (08:12)
[2020-03-17] MEDS: Potassium Chloride 20 MEQ TABCR PO (08:13)
[2020-03-17] MEDS: Gabapentin 600 MG TAB PO ×2 (08:13→13:53)
[2020-03-17 08:37] VITALS: RESP 1
--- NOTE | 2020-03-17 10:20 | RESPIRATORY ---
Respiratory spoke with patient today concerning D/C home with Trilogy. Patient stated this morning, he's not interested in taking the machine home as he doesn't have what he needs for it. He's concerned he doesn't have the air in which the machine needs. Respiratory informed him that he does not need air for it but instead oxygen which will be provided to him. He stated he does not know how to use the device which RT informed him [facility] would be coming to do more training if needed. I told patient I would check back with him later on to see if he had changed him mind. RT told patient that the decision is totally his and we are not trying to be pushy about the device. RT checked back at 10:20 on March 17 and spoke with patient about Trilogy. Patient informed RT he does not want to take the machine home with him and would rather see someone else who needs it have it. He concerned about the amount of electricity the concentrator will be using along still needing air for device. A call has been placed to Erica Franco concerning the situation along with Case Management has been update.
[2020-03-17] MEDS: Lidocaine 5% Patch 2 PATCH TP (10:22)
[2020-03-17] MEDS: Magnesium Gluconate 500 MG TAB PO (10:22)
[2020-03-17 11:23] VITALS: BP 110/70; BP 90/65
--- NOTE | 2020-03-17 13:19 | PDOC.CMPRO ---
- If Service Date Differs Date of service: 03/17/20 Time of Service: 13:19 Care Management Progress Note S/O: William wants to be discharged today. He is refusing home oxygen and Triology he does not have the power source at home to support use of the Trilogy and he does not want oxygen. CM reviewed risk of not receiving the treatment including cardiovascular health, he states I have a pacemaker I am all set. William states his primary pharmacy is replaced by [facility] and his medications are blistered packed. The pharmacy is closed today and Wednesday. He will have medication changes which will need to be addressed including he will need at least two days worth of any new medications he is on. CM will request home health review his blister packed medications at time of initial visit to ensure and medication changes are addressed. CM is requesting a next day visit for admission to address medication changes. A: William is a 54 year old male admitted to [facility] on 03/08/2020 for a rib fracture and UTI. P: Anticipate William will return home when medically cleared by provider. He will be driven home via private vehicle by Rico Brennan. Rico will bring him shoes to return home with. He will resume services through [facility]. He will have new MOW and support through [facility] for options counseling. He will also have new HH RN and PT. CM will continue to support patient and discharge planning considerations.
--- NOTE | 2020-03-17 14:12 | DSE_ITS ---
Date of service: 03/17/20 Time of Service: 14:12 DS: Diagnosis Discharge Diagnosis (1) Orthostatic hypotension: Start date: 03/17/20 Start time: 14:13 Status: Acute Asessment and Plan: most likely related to numerous falls and rib fractures in the past. Florinef added to regimen with fluodrocortisone appears to be effective. Repeat ortho with 110 systolic to 90 systolic without symptoms. (2) Syncope: Start date: 03/17/20 Start time: 14:14 Status: Chronic Asessment and Plan: No arrhythmic events on AICD interrogation or tele. However, was hypotensive in setting of dehydration and now, with rehydration, remains orthostatic. As above, will trial florinef. (3) Left rib fracture: Start date: 03/17/20 Start time: 14:15 Status: Acute Asessment and Plan: Continue IS (4) COPD (chronic obstructive pulmonary disease): Start date: 03/17/20 Start time: 14:16 Status: Chronic Asessment and Plan: Continue current therapy - not in acute exacerbation. (5) Biventricular implantable cardioverter-defibrillator (ICD) in situ: Start date: 03/17/20 Start time: 14:16 Status: Chronic Asessment and Plan: No arrhythmic events per interrogation on this adm ission. Follow up as outpatient (6) Ambulatory dysfunction: Start date: 03/17/20 Start time: 14:16 Status: Acute Asessment and Plan: Continue to work with PT (7) PTSD (post-traumatic stress disorder): Start date: 03/17/20 Start time: 14:16 Status: Chronic Asessment and Plan: continue Wellbutrin and decreased dose of Seroquel. He will benefit from outpatient neurology and psychiatry follow up - especially, since patient's close friend called the hospital stating that there has been a decline in the last month, that the patient has been more sleepy. Above case discussed with Dr. Lynne who is in agreement. Discharge Plan Disposition Patient Disposition: HOME Condition: Stable Discharge Details Chief Complaint: Chest Pain Clinical Impression: Altered mental status, UTI (urinary tract infection), Dehydration, Left rib fracture Reason For Visit: RIB FRACTURE, UTI Admit Date/Time: 03/08/20 19:21 Admit Provider: Hao Mi Attending Provider: Hao Mi Primary Care Provider: Lorrie Crespo ED Provider: Yeny Pickens Hospital Course Hospital Course: 54 y.o male with unspecified psychiatric disorder, along with COPD and CHF. Presenting to the ED with reporting he has felt weak and had a number of days of left sided CP. Does not know if he fell; or rather says he tends to fall but does not know if there was anything specifically relating to the CP. At any rate w/u in ER of note for left 7th rib fx and pyuria. Otherwise afebrile, normal white count, paced rhythm and negative troponin. Patient appeared generally dishevelled, dry and with significant psychomotor retardation and did not appear safe to return home. Admitted for further management. Over course of hospitalization patient became hypotensive requiring ICU admission. His pacer was interogated without any evidence of issue. He was given IVF and rehydrated helping with orthostatsis however he had several episodes of symptomatic orthostatsis. He was started on florinef and fluodrocortisone. Orthostatsis improved, and he was asymptomatic. He was also on large doses (800) of seroquel , with klonipin and gabapentin, he became sleepy and lethargic. His medication was adjusted to a smaller regimen. He will be going home on 3 days worth of all pills, and a new bubble pack will be sent to him on wednesday. He did sustain a rib fx in which he was given lidoderm patches and ICS for. He denies CP, SOB, N/v/D. He is being discharged home with HH, PT/OT and [employer]. Home Meds and New Rx's Prescriptions: New gabapentin [Neurontin] 600 mg Tablet 600 mg PO TID Qty: 9 RF: 0 clonazepam 1 mg Tablet 1 mg PO QID PRN PRN (Reason: Anxiety) Qty: 12 RF: 0 pravastatin 20 mg Tablet 20 mg PO QPM Qty: 3 RF: 0 fludrocortisone 0.1 mg Tablet 0.1 mg PO DAILY Qty: 3 RF: 0 bupropion HCl 150 mg Tablet Extended Release 24 Hr 300 mg PO DAILY Qty: 3 RF: 0 quetiapine [Seroquel] 400 mg Tablet 400 mg PO HS Qty: 3 RF: 0 Continued fluticasone propion-salmeterol [Advair Diskus] 1 EACH blister with device 1 puff Inhalation BID RF: 0 albuterol sulfate [ProAir HFA] 8.5 GM HFA aerosol inhaler 1 - 2 puff Inhalation Q4H PRN RF: 0 nitroglycerin 0.4 MG tablet, sublingual 0.4 mg Sublingual one every 5 mins. x3 Qty: 30 RF: 3 ipratropium-albuterol 0.5 mg-3 mg(2.5 mg base)/3 mL Solution For Nebulization 3 ml UPD Q4H PRNQty: 1 RF: 0 montelukast 10 mg tablet 10 mg PO DAILY PRN PRNRF: 0 Trintellix 20 mg Tablet 20 mg PO DAILY RF: 0 Combivent Respimat 20-100 mcg/actuation mist 1 puff IH Q6H Qty: 4 RF: 0 Changed benztropine 1 mg tablet 1 mg PO HS Qty: 0 RF: 0 Discontinued furosemide 20 mg tablet 20 mg PO DAILY 30 Days Qty: 40 RF: 11 clonazepam [Klonopin] 0.5 MG tablet 1 mg PO PRN RF: 0 bupropion HCl [Wellbutrin XL] 300 MG tablet extended release 24 hr 300 mg PO DAILY RF: 0 spironolactone 25 mg tablet 12.5 mg PO DAILY Qty: 90 RF: 4 quetiapine [Seroquel] 300 mg tablet 800 mg PO DAILY RF: 0 lisinopril 10 mg tablet 10 mg PO DAILY Qty: 90 RF: 3 metoprolol succinate 25 mg tablet extended release 24 hr 25 mg PO DAILY Qty: 90 RF: 3 pravastatin 40 mg tablet 20 mg PO HS RF: 0 gabapentin 600 mg tablet 600 mg PO TID RF: 0 Rexulti 1 mg Tablet 1 mg PO DAILY RF: 0 No Action hydrocodone-acetaminophen [Vicodin] 1 EACH tablet 1 ea PO QID RF: 0 Discharge Instructions Instructions: Rib Fracture (DC), Hypotension (DC) Additional Instructions: Follow up with your PCP in 1 week. THROW YOUR BUBBLE PACK AWAY ONLY TAKE THE MEDICATION GIVEN TO YOU TODAY BY US A nurse will be over tomorrow to help you with your medication stop taking all blood pressure medications USE incentive spirometer You will receive a new bubble pack on Wednesday Stand Alone Forms: Nursing Discharge Form Referrals: Lorrie Crespo [Primary Care Provider] - (Call the office on Wednesday morning to schedule an appointment to be seen within 1 week) Activity:: Activity as Tolerated Equipment/Supplies:: No Equipment Needed Diet:: Low Sodium Discharge Orders Discharge Orders: Discharge Order (Routine); Ordered 03/17/20 Ordered By: Brittany Dickey DS: Summary Status at Discharge Functional status at discharge: independent ambulation Overall status at discharge: patient is back to baseline Mental Status: other Speech and Movement: speech and movement normal Mood: other Affect: blunted Exam Const General: cooperative, healthy appearing, no acute distress and other Nutritional Appearance: overweight Orientation: alert, awake and other Limitations: behavioral limitations HENMT Head: normal to inspection, normocephalic and atraumatic Eyes Pupils: PERRL EOM: EOM intact bilaterally Neck Lymphatic: no lymphadenopathy noted and no lymphedema noted Chest Chest: normal inspection of the chest Resp Effort & Inspection: normal respiratory effort and able to speak in complete sentences Auscultation: clear to auscultation bilaterally Cardio Jugular venous pressure: no JVD Heart Sounds: S1 normal and S2 normal GI Inspection: normal to inspection Palpation: soft Auscultation: normal bowel sounds General: deferred Back/Spine/Pelvis Back: no CVA tenderness Thoracic/Lumbar Spine: thoracic and lumbar spine normal to inspection Skin Trauma: abrasion (left griffiths and right ankle, griffiths) Neuro General: patient alert, patient awake and moves all extremities Cranial Nerves: EOM intact bilaterally Extrem General: full ROM and no clubbing, cyanosis or edema Psych Appearance: disheveled Mental Status: other Speech and Movement: speech and movement normal Mood: other Affect: blunted Attitude: cooperative Thought Process: other Insight: poor Judgment: poor DS: Data Vitals/I&O Vitals and I&O: Vital Signs Temperature 36.6 C 03/17/20 08:05 Temperature Source Tympanic 03/17/20 08:05 Pulse 92 H 03/17/20 08:05 Pulse Rhythm Regular 03/17/20 10:26 Pulse 84 03/13/20 12:00 Respiratory Rate 18 03/17/20 08:05 Respiratory Effort 03/17/20 10:26 Respiratory Depth Shallow 03/17/20 10:26 Respiratory Pattern Normal 03/17/20 10:26 Blood Pressure 110/70 03/17/20 11:23 Blood Pressure Mean 106 03/15/20 13:07 Blood Pressure Position Sitting 03/13/20 08:09 Pulse Oximetry 91 L 03/17/20 08:05 Respiratory End-tidal CO2 39 03/10/20 01:37 Oxygen Delivery Method Room Air 03/17/20 08:05 Oxygen Flow Rate 2 03/17/20 08:37 Fraction of Inspired Oxygen (FIO2) 21 03/13/20 21:45 Pain Level 7 03/17/20 08:05 Intake & Output 03/16/20 03/17/20 03/17/20 23:59 11:59 23:59 Intake Total 240 / 920 Balance 240 / 920 Intake: Oral 240 / 920 Other: Urine Appearance Clear Clear Data Completed and Pending Completed studies during hospitalization [Text1]: ABDOMEN: Liver: Normal density. No measurable mass. Portal, Superior Mesenteric, and Splenic Veins: Unremarkable. Gallbladder and Biliary Tract: No radiodense calculus or dilation. Pancreas: Normal density, no abnormal calcifications or inflammatory process. Spleen: Normal. Adrenals: No masses seen. Kidneys: Normal size, contour and axis. No radiodense stones or obstructive uropathy. No masses seen. Abdominal Aorta: Abdominal portion non-dilated. Atherosclerosis. Bowel: No obstruction or bowel wall thickening. Appendix is unremarkable. Peritoneal Cavity: No ascites, collection or mesenteric inflammatory response. Lymph Nodes: Within normal limits. Bones: Unremarkable. Soft Tissues: Bilateral fat containing inguinal hernia. PELVIS: Bladder: Symmetric distention, no gross wall thickening. Reproductive Organs: Unremarkable as visualized. Lymph Nodes: Within normal limits. Bones: Within normal limits. IMPRESSION: 1. Unremarkable CT scan of the abdomen and pelvis. 2. Nondisplaced fracture involving the lateral aspect of left 8th rib and possible acute fracture of the left 7th rib laterally. Exam(s) a CT:CT head & cervical spine wo EXAM: CT HEAD CERVICAL SPINE WO CLINICAL HISTORY: s/p fall, altered mental status. TECHNIQUE: Imaging Protocol: Axial computed tomography images with coronal and sagittal reformatted images were created and reviewed COMPARISON: No exams were available for comparison FINDINGS: There is patient motion artifact. CT Head: Ventricles and Extra axial spaces: Normal in size and morphology for the patient's age. Hemorrhage: None. Cerebral parenchyma: Normal. Midline shift: None. Brainstem/Cerebellum: Normal. Calvarium: Normal. Visualized Paranasal sinuses/Mastoids: Clear. Soft Tissues: Unremarkable. CT Cervical Spine: Bones: No acute fracture or subluxation. Degenerative changes are seen in the cervical spine. Soft Tissues: Unremarkable. Lung Apices: Clear. IMPRESSION: 1. No acute intracranial process. 2. No acute fracture or subluxation in the cervical spine. FINDINGS: Brain: No intracranial hemorrhage or extra-axial fluid collection. No evidence of mass effect or midline shift. Montesinos-white matter differentiation is intact. Ventricles: No ventriculomegaly. Bones/joints: No acute osseus lesion or fracture. Sinuses: Unremarkable as visualized. Mastoid air cells: Unremarkable. Soft tissues: Unremarkable. IMPRESSION: No acute intracranial pathology. EXAM: Comprehensive 2D, Doppler, and color-flow Echocardiogram Patient Location: In-Patient Room/Bed: ICU [address] Weaver: Bina Giordano RDCS (AE) Indications: Syncope Other Information Study Quality: Good Conclusion Left Ventricle : The left ventricle is normal size. There is normal left ventricular wall thickness. There is normal LV segmental wall motion. The left ventricular diastolic function is normal. LVEF is 45-50%. Left ventricular systolic function is mildly decreased. Right Ventricle : The right ventricle is normal size. The right ventricular systolic function is normal. The RVSP is 36.8 mmHg. Atria : The left atrium size is normal. The right atrium size is normal. Valves: There are no hemodynamically significant valvular lesions. Great Vessels : IVC is normal in size and collapses >50% with inspiration. Compared to echocardiogram dated 11/08/2017: There is no significant change. Labs on day of discharge: Labs from last 24 hours 03/17/20 07:58 WBC 6.25 RBC 4.87 Hgb 15.5 Hct 45.8 MCV 94.0 MCH 31.8 MCHC 33.8 RDW 13.4 Plt Count 188 MPV 11.1 H [facility] Medical History Agoraphobia (Acute) Biventricular implantable cardioverter-defibrillator (ICD) in situ (Chronic) Mode:DDD, Low rate 60bpm, Atrial lead: medtronic 5076, SN: [id number] 09/27/14; RV lead Medtronic [id number] SN: [id number] 09/27/14; LV lead Medtronic 4396, SN; [id number] 09/27/14 (updated 03/11/20) Depression (Chronic) History of alcohol abuse (Resolved) History of tobacco abuse (Resolved) LBBB (left bundle branch block) (Chronic) Nonischemic dilated cardiomyopathy (Chronic) Pacemaker (Acute) Panic anxiety syndrome (Acute) PTSD (post-traumatic stress disorder) (Chronic) Severe chronic obstructive pulmonary disease (Chronic) Systolic and diastolic CHF, chronic (Chronic) Social History Smoking/Tobacco Use Status: Former Tobacco Use Quit Date: 10/25/15 Pack-years: 120 Alcohol Intake: former Drug use: Never Do you feel safe in your relationship?: Yes
--- NOTE | 2020-03-17 15:11 | PDOC.HHF2F_ITS ---
Home Health Certification Home Health Certification: 1. Encounter Date and Reason I certify that GENNA MEYER was seen by Brittany Dickey on 03/17/20 and that I had a [id number] encounter with this patient that meets the physician face to face encounter requirements. 2. Clinical Findings Supporting Skilled Need and Homebound Status I certify that home health services are medically necessary, include either intermittent fpc and/or physical/speech therapy, and that this patient is homebound in that absences from the home require considerable and taxing effort and are infrequent or of short duration, or are attributable to the need to receive medical care. [X] (a) Attached documentation from encounter provides clinical findings supporting skilled need and homebound status (including what assistance patient requires to leave the home). The encounter with the patient was in whole, or in part, for the following medical condition, which is the primary reason for home health care: RIB FRACTURE, UTI Mcc: Patient would benefit from nursing services to help with medication administration and blood pressure monitoring. 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 3. Certification and Authentication I certify that I composed the above information based on my clinical judgement relating to this patient's medical condition and, if applicable, clinical findings communicated to me by the NPP or inpatient physician who performed the Home Health Referral. All further orders will be obtained through _Lorrie Crespo__(Community Based Physician - PCP)
--- NOTE | 2020-03-17 17:20 | PDOC.CMDIS ---
- If Service Date Differs Date of service: 03/17/20 Time of Service: 17:20 LACE Index Scoring Tool - Questions: Length of Stay (in days): 7 - 13 Acuity (Admit via E.D.?): Yes E.D. Visits: 1 - Answers: Total Score: 9 Risk of Readmission: Low Risk Care Management Discharge Reason for Hospitalization: Rib fracture and UTI. Discharge Plan: William was discharged home today, CM reviewed the discharge plan with him and his supports. Faxed the discharge summary to [facility], [facility], and to [facility], [facility] pharmacy. CM requested home health complete an intake with the patient on Wednesday and complete a medication rec as he has had a signifigant change in his medications prior to discharge. His medications are through mail order pharmacy so CM requested three days worth of medications from in house pharamcy. Rico will transport him home and will review his medications with him when he arrives at home to confirm he takes only what is prescribed. William has refused any oxygen equipment or trilogy. William will have new home health services and home delivery meals. Patient/Family Education Needs: Discharge education, limitations and follow up plan of care including medications and plan for services. Services Needed at Discharge: Home Delivered Meals, Home Health Care Services, Occupational Therapy, Physical Therapy
== END 2020-03-17 16:06 | disposition home or self-care (01) | DRG 312 ==
LOC: ER 20:57 → MS 21:17 → ICU 03-10 03:03 → MS 03-17 14:25 → ICU 03-20 11:58
PROVIDERS: Family Medicine; Internal Medicine; Admitting Provider General Practice; Emergency Provider Physician Assistant; PCP Nurse Practitioner Family; Visit Provider Internal Medicine
DX: I95.1 Orthostatic hypotension (principal); S22.32XA Fracture of one rib, left side, initial encounter for closed fracture; I42.0 Dilated cardiomyopathy; I50.40 Unspecified combined systolic (congestive) and diastolic (congestive) heart failure; J96.10 Chronic respiratory failure, unspecified whether with hypoxia or hypercapnia; E86.0 Dehydration; R41.82 Altered mental status, unspecified; R82.81 Pyuria; R53.83 Other fatigue; T43.595A Adverse effect of other antipsychotics and neuroleptics, initial encounter; T42.4X5A Adverse effect of benzodiazepines, initial encounter; T42.6X5A Adverse effect of other antiepileptic and sedative-hypnotic drugs, initial encounter; J44.9 Chronic obstructive pulmonary disease, unspecified; Z95.810 Presence of automatic (implantable) cardiac defibrillator; R26.2 Difficulty in walking, not elsewhere classified; R53.1 Weakness; Z91.81 History of falling; F43.10 Post-traumatic stress disorder, unspecified; W10.9XXA Fall (on) (from) unspecified stairs and steps, initial encounter; Z87.891 Personal history of nicotine dependence; F10.21 Alcohol dependence, in remission; Z60.8 Other problems related to social environment; Z59.1 Inadequate housing; R09.02 Hypoxemia; Z03.818 Encounter for observation for suspected exposure to other biological agents ruled out
CPT/HCPCS: 36410; 36415; 51702; 71275; 74177; 76942; 80048; 80053; 80307; 82805; 85027; 87040; 93005; 93306; 94640; 96361; 96365; 96375; 97110; 97162; 97530; 99221; 99222; 99232; 99233; 99239; 99285; NC; U0003; 70450; 72125; 80320; 81003; 81015; 83735; 83880; 84484; 85014; 85018; 85025; 87086; 93010; 99223; J0696; J1644; J1885; J1941; J2310; J3490

== ENCOUNTER → 2020-03-11 08:58 | Outpatient (BNVA) | payer MEDICARE, SELFPAY | PROVIDERS: PCP Nurse Practitioner Family; Referring Provider Nurse Practitioner Family; Visit Provider Internal Medicine Cardiovascular Disease | DX: R69 Illness, unspecified (principal) ==

== ENCOUNTER 2020-05-01 22:34 | Observation (INO) | payer MEDICARE, SELFPAY ==
--- NOTE | 2020-05-01 22:30 | RT.EKG_ITS ---
APPROVED REPORT Exam: Resting ECG Patient Location: E HR:83 bpm ECG Measurements Heart Rate 83 AXIS WV 142 P 61 QRSd 153 QRS 247 QT 419 T 40 QTc 493 <Conclusion> Atrial-sensed ventricular-paced rhythm...ventricular pacing tracks p-waves Biventricular paced rhythm...non-simultaneous bi-vent pacing paced, no significant changes
[2020-05-01 22:34] VITALS: BP 129/77; PULSE 96; RESP 16; TEMP 36.9; O2SAT 93
--- NOTE | 2020-05-01 22:41 | W.ED.GENAD ---
Discharge Plan Disposition Patient Disposition: [facility] INPATIENT Condition: Stable Discharge Details Chief Complaint: AMS/LOC Clinical Impression: Auditory hallucination Primary Care Provider: Lorrie Cresop ED Provider: Jaime Galvan Home Meds and New Rx's Prescriptions: No Action fluticasone propion-salmeterol [Advair Diskus] 1 EACH blister with device 1 puff Inhalation BID RF: 0 albuterol sulfate [ProAir HFA] 8.5 GM HFA aerosol inhaler 1 - 2 puff Inhalation Q4H PRN RF: 0 nitroglycerin 0.4 MG tablet, sublingual 0.4 mg Sublingual one every 5 mins. x3 Qty: 30 RF: 3 ipratropium-albuterol 0.5 mg-3 mg(2.5 mg base)/3 mL Solution For Nebulization 3 ml UPD Q4H PRNQty: 1 RF: 0 montelukast 10 mg tablet 10 mg PO DAILY PRN PRNRF: 0 Trintellix 20 mg Tablet 20 mg PO DAILY RF: 0 gabapentin [Neurontin] 600 mg Tablet 600 mg PO TID Qty: 9 RF: 0 quetiapine [Seroquel] 400 mg Tablet 400 mg PO HS Qty: 3 RF: 0 benztropine 1 mg tablet 1 mg PO HS Qty: 0 RF: 0 bupropion HCl 300 mg tablet extended release 24 hr 300 mg PO QAM Qty: 10 RF: 0 clonazepam 1 mg tablet 1 mg PO QID PRN (Reason: anxiety) Qty: 20 RF: 0 fludrocortisone 0.1 mg tablet 0.1 mg PO DAILY Qty: 10 RF: 0 pravastatin 20 mg tablet 20 mg PO QHS Qty: 10 RF: 0 Combivent Respimat 20-100 mcg/actuation mist 1 puff IH Q6H Qty: 4 RF: 0 Medical Decision Making 54 yo male with Past Medical History significant for Severe COPD, and prior tobacco and alcohol abuse now in remission, dilated cardiomyopathy s/p AICD with a BiV PPM and also a psychiatric history with PTSD, Chronic panic attacks, agoraphobia, depression, and anxiety who comes in with EMS after state police were called when neighbors saw him trying to break down his front door from the outside with a sledge hammer and was confused. Pt arrives HD stable in c collar as he has had reported falls over the past few weeks, unknown when his last fall or when his confusion started, report from ems is that he has been off his medications for unknown time. Pt arrives and knows his name and that he is in [facility], doesn't know he's in a hospital, knows the month but not the year. He has no focal deficits.He has mild right lateral neck pain right oblique pain with bruises of different healing stages on extremities without pain. HAs no focal motor or sensation deficits. He does state that he was hearing voices telling him to do things but won't given specifics. Denies si/hi. I suspect his confusion is psychiatric driven but given falls will obtain ct head, c spine, chest and abd/pelvis and obtain labs to evaluate for electrolyte abnormalities. No fevers and has no infectious symptoms so doubt this as cause of his symptoms pt remains stable labs unremarkable and imaging shows no acute findings, able to fully empty bladder after CT. No longer has any pain in c spine and cleared c collar, no pain midline and full rom. He is now more oriented and remembers the year and that he is in the hospital in [facility]. Will have mental health eval evaluated and felt appropriate for care bed but unfortunately they need a negative covid swab before going there so will be admitted pending this result Differential Diagnosis Differential Diagnosis: electrolyte abnormality, psychiatric disorder, tbi Medical Records Medical records reviewed: Yes I reviewed the patient's medical records. Imaging Data Radiologic Study: Attestation: I personally reviewed and interpreted this imaging study as follows: Imaging: CT Scan Radiologist's impression: no acute findings on ct head/cspine/chest/abd/pelvis Lab Data Lab results reviewed: Yes I reviewed the patient's lab results. ECG Data Attestation: I personally reviewed and interpreted this ECG (s) as follows: Prior ECG tracings: available for review Interpretation: paced rhythm no signifiacnt changes from prior rate of 83 qtc 493 HPI General Mode of arrival: EMS. Date/Time Provider Initiated Documentation: 05/01/20 22:39. Limitations to Documentation: altered mental status. Information obtained by: patient. History of Present Illness 54 year old M presents to the emergency department with the chief complaint of altered mental status, Patient started experiencing this unknown No relieving factors improve symptom(s), No exacerbating factors reported . Patient did receive the following treatments prior to arrival, none Related Data Home Medications Medication Instructions Recorded Confirmed fluticasone propion-salmeterol 1 puff INHALATION BID disk 03/06/15 05/01/20 [Advair Diskus] albuterol sulfate [ProAir HFA] 1 - 2 puff INHALATION Q4H PRN 09/27/15 05/02/20 inhaler nitroglycerin 0.4 mg SUBLINGUAL one every 5 07/27/17 05/02/20 mins. x3 #30 tab-cap Combivent Respimat 1 puff IH Q6H #4 gm 11/26/18 05/02/20 ipratropium-albuterol 3 ml UPD Q4H PRN #1 packet 07/10/19 05/02/20 montelukast 10 mg PO DAILY PRN PRN 03/08/20 05/01/20 Trintellix 20 mg PO DAILY 03/11/20 05/02/20 benztropine 1 mg PO HS #0 tab 03/17/20 05/01/20 bupropion HCl 300 mg PO QAM #10 tab 03/17/20 05/01/20 clonazepam 1 mg PO QID PRN #20 tab 03/17/20 05/01/20 fludrocortisone 0.1 mg PO DAILY #10 tab 03/17/20 05/02/20 gabapentin [Neurontin] 600 mg PO TID #9 tab 03/17/20 05/01/20 pravastatin 20 mg PO QHS #10 tab 03/17/20 05/01/20 quetiapine [Seroquel] 400 mg PO HS #3 tab 03/17/20 05/01/20 Previous Rx's Medication Instructions Recorded nitroglycerin 0.4 mg SUBLINGUAL one every 5 07/27/17 mins. x3 #30 tab-cap Combivent Respimat 1 puff IH Q6H #4 gm 11/26/18 ipratropium-albuterol 3 ml UPD Q4H PRN #1 packet 07/10/19 benztropine 1 mg PO HS #0 tab 03/17/20 bupropion HCl 300 mg PO QAM #10 tab 03/17/20 clonazepam 1 mg PO QID PRN #20 tab 03/17/20 fludrocortisone 0.1 mg PO DAILY #10 tab 03/17/20 gabapentin [Neurontin] 600 mg PO TID #9 tab 03/17/20 pravastatin 20 mg PO QHS #10 tab 03/17/20 quetiapine [Seroquel] 400 mg PO HS #3 tab 03/17/20 Allergies Allergy/AdvReac Type Severity Reaction Status Date / Time citalopram Allergy Unverified 05/01/20 22:36 oxycodone HCl [From Percocet] AdvReac Addiction Unverified 05/01/20 22:36 General Stated Complaint: AMS/LOC MOLLY: 2 Review of Systems All systems reviewed & are unremarkable except as noted in HPI and below Constitutional Constitutional: Denies chills and Denies fever(s) Cardiovascular Cardiovascular: Denies chest pain and Denies dyspnea Respiratory Respiratory: Denies cough and Denies dyspnea Gastrointestinal Gastrointestinal: Denies nausea and Denies vomiting Psychiatric Psychiatric: Denies depression PFSH Social History Smoking/Tobacco Use Status: Former Tobacco Use Quit Date: 10/25/15 Pack-years: 120 Alcohol Intake: former Drug use: Never Do you feel safe in your relationship?: Yes Exam Const General: no acute distress Orientation: alert HENMT Head: normal to inspection Ears: external ears normal General nose exam: external nose normal Mouth: moist mucous membranes Eyes General: appearance normal, both eyes and all related structures Neck Neck: normal visual inspection Resp Effort & Inspection: normal respiratory effort and able to speak in complete sentences Cardio Rate: regular rate GI Palpation: soft Skin General skin exam: no rashes or lesions noted Neuro General: patient alert Extrem General: normal to inspection Psych Mental Status: mental status grossly normal
[2020-05-01 22:54] LABS: Abs Immature Grans 0.02 k/cumm (0.0-0.09); Absolute Basophil Count 0.02 k/cumm (0.0-0.2); Absolute Eosinophil Count 0.05 k/cumm (0.0-0.7); Absolute Lymphocyte Count 0.68 k/cumm (1.2-3.4); Basophils % 0.3; Eosinophils % 0.7; HCT 49.2 % (40.0-50.0); HGB 16.8 g/dL (13.5-17.5); Immature Grans % 0.3 %; Lymphocytes % 9.1; Mean Corp. HGB Concentration 34.1 g/dL (32.0-36.0); Mean Corpuscular Hemoglobin 30.9 pg (27.0-33.0); Mean Corpuscular Volume 90.6 fL (80-95); Mean Platelet Volume 11.1 fL (8.0-11.0); Monocytes % 13.4; Neutrophils % 76.2; Platelet Count 178 x1000/uL (130-400); RBC 5.43 m/cumm (4.50-6.00); RBC Distribution Width 13.1 % (11.8-14.1); White Blood Cell Count 7.47 k/cumm (4.4-10.8)
[2020-05-01] MEDS: Normal Saline Flush 10 ML SYR IVP (22:56)
--- NOTE | 2020-05-01 23:05 | DI.CT_ITS ---
EXAM: CT HEAD CERVICAL SPINE WO CLINICAL HISTORY: falls, altered mental status, pain. TECHNIQUE: Imaging Protocol: Axial computed tomography images with coronal and sagittal reformatted images were created and reviewed COMPARISON: No exams were available for comparison FINDINGS: Head CT Ventricles and Extra axial spaces: Normal in size and morphology for the patient's age. Hemorrhage: None. Cerebral parenchyma: Normal. Midline shift: None. Brainstem/Cerebellum: Normal. Calvarium: Normal. Visualized Paranasal sinuses/Mastoids: Clear. Cervical Spine CT BONES: Vertebral body heights are maintained. Intervertebral disc spaces are normal. Alignment is nor mal. There is no evidence of acute fracture. SOFT TISSUES: No paraspinal hematoma. The airway appears intact. Degenerative disc changes are seen, greatest at C6-7. . IMPRESSION: No acute abnormality. Degenerative changes, no acute abnormality. RADIATION DOSE DELIVERED: Total DLP DATA REPOSITORY: All CT scans at this facility are submitted to the National Radiology Data Registry (NRDR) Dose Index Registry (DIR) with the [employer] (ACR). RADIATION OPTIMIZATION: All CT scans at this facility use at least one of these dose optimization te chniques: automated exposure control; mA and/or kV adjustment per patient size (includes targeted exa ms where dose is matched to clinical indication); or iterative reconstruction.
[2020-05-01 23:09] LABS: Acetaminophen < 2 ug/mL (10-30); Salicylate < 2.8 mg/dL (2.8-20.0)
--- NOTE | 2020-05-01 23:10 | DI.CT_ITS ---
EXAM: CT CHEST/ABD/PEL W CLINICAL HISTORY: falls, altered mental status, pain. TECHNIQUE: Imaging Protocol: Axial computed tomography images with coronal and sagittal reformatted images were created and reviewed CONTRAST MATERIAL: Intravenous: Omnipaque 350 Contrast volume:100 ml Oral: No COMPARISON: CR XR CHEST 2V PA LATERAL from 09/29/[address] CHEST PE ABD PELVIS W from 03/08/2020 FINDINGS: CHEST: A pacemaker overlies the left pectoral muscle. Emphysematous changes are noted. There is a large bu lla in the left upper lobe. There is scarring versus atelectasis in the lingula. There is no eviden ce of pneumothorax, pleural or pleural pericardial effusion. No mass, adenopathy or infiltrate is se en. Heart size is normal. old left rib fractures are seen. No acute rib fractures or spinal fractu res are identified. Sternum and shoulders are unremarkable as visualized. ABDOMEN: Liver: Normal density. No measurable mass. Gallbladder and biliary tract: No radiodense calculus or dilation. Pancreas: Normal density, no abnormal calcifications or inflammatory process. Spleen: Normal. Kidneys: Normal size, contour and axis. No radiodense stones or obstructive uropathy. No masses seen. Adrenal glands: No masses seen. Aorta: Abdominal portion non-dilated. Lymph nodes: Within normal limits. PELVIS: Bladder: Distended., no gross wall thickening. Bowel: No obstruction or bowel wall thickening. Normal appendix. Peritoneal cavity: No ascites, collection or mesenteric inflammatory response. Bones: Within normal limits. Reproductive organs: Within normal limits. Small bilateral fatty containing inguinal hernias. IMPRESSION: Old left lateral rib fractures. Distended urinary bladder. No acute abnormality is seen in the kym st, abdomen, or pelvis. RADIATION DOSE DELIVERED: Total DLP DATA REPOSITORY: All CT scans at this facility are submitted to the National Radiology Data Registry (NRDR) Dose Index Registry (DIR) with the [employer] (ACR). RADIATION OPTIMIZATION: All CT scans at this facility use at least one of these dose optimization te chniques: automated exposure control; mA and/or kV adjustment per patient size (includes targeted exa ms where dose is matched to clinical indication); or iterative reconstruction.
[2020-05-01] MEDS: Normal Saline 20 ML VIAL IV (23:11)
[2020-05-01] MEDS: Omnipaque 350 MG/ML 100 ML BTL IJ (23:11)
[2020-05-01 23:15] LABS: ALT 23 U/L (16-63); AST 20 U/L (15-37); Albumin 4.3 g/dL (3.4-5.0); Alkaline Phosphatase 84 U/L (46-116); Anion Gap 10.8 mmol/L (3-11); BUN 13 mg/dL (7-18); Bilirubin, Total 0.4 mg/dL (0.2-1.0); CO2 26.2 mmol/L (21.0-32.0); CREATININE 1.36 mg/dL (0.70-1.30); Calcium 9.4 mg/dL (8.5-10.1); Chloride 101 mmol/L (98-107); Estimated GFR 54.21 (mL/min/1.73m2); Glucose 101 mg/dL (74-106); Potassium 4.4 mmol/L (3.5-5.1); Sodium 138 mmol/L (136-145); TSH (W/Ref FT4) 1.55 uIU/mL (0.36-3.74); Total Protein 7.5 g/dL (6.4-8.2)
[2020-05-01 23:16] LABS: ETHANOL BLOOD < 3.0 mg/dL (<3)
[2020-05-01 23:36] LABS: Bilirubin Negative (Negative); Blood Negative (Negative); Clarity Clear (Clear); Glucose Negative (Negative); Ketones 15 mg/dL (Negative); Leukocyte Esterase Negative (Negative); Nitrite Negative (Negative); Urobilinogen 0.2 EU/dL (Up TO 0.2); pH 5.5 (5-8)
--- NOTE | 2020-05-01 23:46 | DI.VRAD_ITS ---
PROCEDURE INFORMATION: Exam: CT Chest With Contrast Exam date and time: 05/01/2020 10:41 PM Age: 54 years old Clinical indication: Injury or trauma; Fall; Initial encounter; Generalized; Blunt trauma (contusions or hematomas); Injury date: 05/01/20 TECHNIQUE: Imaging protocol: Computed tomography of the chest with intravenous contrast. Radiation optimization: All CT scans at this facility use at least one of these dose optimization techniques: automated exposure control; mA and/or kV adjustment per patient size (includes targeted exams where dose is matched to clinical indication); or iterative reconstruction. Contrast material: [id number]; Contrast volume: 100 ml; Contrast route: INTRAVENOUS (IV); COMPARISON: CT Thorax^CHEST W ROUTINE (Adult) 06/25/2019 12:59 FINDINGS: Tubes, catheters and devices: Cardiac pacemaker in place. Lungs: Emphysematous lung disease. Lingula reticular scarring versus atelectasis Large left upper lobe bulla. Pleural space: Unremarkable. No pneumothorax. No pleural effusion. Heart: Unremarkable. No cardiomegaly. No pericardial effusion. Aorta: Atherosclerotic disease. Lymph nodes: Unremarkable. No enlarged lymph nodes. Bones/joints: Subacute left lateral rib fractures. Soft tissues: Unremarkable. IMPRESSION: 1. Advanced emphysematous lung disease with large bulla in the upper lobes. 2. Subacute left lateral rib fractures. PROCEDURE INFORMATION: Exam: CT Abdomen And Pelvis With Contrast Exam date and time: 05/01/2020 10:41 PM Age: 54 years old Clinical indication: Injury or trauma; Fall; Initial encounter; Generalized; Blunt trauma (contusions or hematomas); Injury date: 05/01/20 TECHNIQUE: Imaging protocol: Computed tomography of the abdomen and pelvis with intravenous contrast. Radiation optimization: All CT scans at this facility use at least one of these dose optimization techniques: automated exposure control; mA and/or kV adjustment per patient size (includes targeted exams where dose is matched to clinical indication); or iterative reconstruction. Contrast material: [id number]; Contrast volume: 100 ml; Contrast route: INTRAVENOUS (IV); COMPARISON: CT Thorax^CHEST W ROUTINE (Adult) 06/25/2019 12:59 FINDINGS: Liver: Normal. No mass. Gallbladder and bile ducts: Normal. No calcified stones. No ductal dilation. Pancreas: Normal. No ductal dilation. Spleen: Normal. No splenomegaly. Adrenals: Normal. No mass. Kidneys and ureters: Normal. No hydronephrosis. Stomach and bowel: Unremarkable. No obstruction. No mucosal thickening. Appendix: No evidence of appendicitis. Intraperitoneal space: Unremarkable. No free air. No significant fluid collection. Vasculature: Atherosclerotic disease. Lymph nodes: Unremarkable. No enlarged lymph nodes. Bladder: Markedly distended urinary bladder with the dome at L5-S1. Reproductive: Unremarkable as visualized. Bones/joints: Degenerative changes of the thoracic and lumbar spine. Soft tissues: Fat distension of the inguinal canals. IMPRESSION: 1. No acute findings. 2. Distended urinary bladder with the dome at L5-S1. Dictated and Authenticated by: Nathalia Lester MD. Ordering:ANTONIO Sandoval MD
[2020-05-01 23:48] LABS: *AMPHETAMINES SCREEN URINE Negative (Negative); *BARBITURATES SCREEN URINE Negative (Negative); *BENZODIAZEPINES SCREEN URINE Negative (Negative); Cannabinoids THC Negative (Negative); Cocaine Screen,Urine Negative (Negative); METHADONE URINE SCREEN Negative (Negative); OPIATES URINE SCREEN Negative (Negative)
[2020-05-01 23:51] LABS: Tricyclic Antidepressants Negative (Negative)
--- NOTE | 2020-05-01 23:55 | DI.VRAD_ITS ---
PROCEDURE INFORMATION: Exam: CT Head Without Contrast Exam date and time: 05/01/2020 10:41 PM Age: 54 years old Clinical indication: Injury or trauma; Fall; Initial encounter; Blunt trauma (contusions or hematomas); Consciousness not specified; Injury date: 05/01/20 TECHNIQUE: Imaging protocol: Computed tomography of the head without contrast. Radiation optimization: All CT scans at this facility use at least one of these dose optimization techniques: automated exposure control; mA and/or kV adjustment per patient size (includes targeted exams where dose is matched to clinical indication); or iterative reconstruction. COMPARISON: CT HEAD CERVICAL SPINE WO 03/08/2020 3:59 PM FINDINGS: Brain: No evidence for acute transcortical infarct. No mass effect or midline shift. No extra-axial collection. No acute intracranial hemorrhage. Basal cisterns are patent. Ventricles: Normal. No ventriculomegaly. Bones/joints: Unremarkable. No acute fracture. Sinuses: Visualized sinuses are unremarkable. No fluid levels. Mastoid air cells: Visualized mastoid air cells are well aerated. Soft tissues: Unremarkable. IMPRESSION: No evidence for acute transcortical infarct, acute intracranial hemorrhage, or mass effect. PROCEDURE INFORMATION: Exam: CT Cervical Spine Without Contrast Exam date and time: 05/01/2020 10:41 PM Age: 54 years old Clinical indication: Injury or trauma; Fall; Initial encounter; Blunt trauma (contusions or hematomas); Consciousness not specified; Injury date: 05/01/20 TECHNIQUE: Imaging protocol: Computed tomography images of the cervical spine without contrast. Radiation optimization: All CT scans at this facility use at least one of these dose optimization techniques: automated exposure control; mA and/or kV adjustment per patient size (includes targeted exams where dose is matched to clinical indication); or iterative reconstruction. COMPARISON: CT HEAD CERVICAL SPINE WO 03/08/2020 3:59 PM FINDINGS: Vertebrae: No acute fracture or traumatic subluxation. No spondylolisthesis. The atlantooccipital and atlantoaxial articulations are intact. Facet joint alignments are maintained. Discs/Spinal canal/Neural foramina: Age-related degenerative disc disease. Multilevel degenerative changes of the cervical spine. Other bones/joints: Occipital condyles are intact. Prevertebral Space: No prevertebral soft tissue swelling. Soft tissues: Unremarkable. Lungs: Emphysematous changes of the lung apices. IMPRESSION: No acute fracture or traumatic subluxation. Dictated and Authenticated by: Polo Murphy MD. Ordering:ANTONIO Sandoval MD
[2020-05-02] VITALS (13 sets, daily range): BP systolic 94–140; BP diastolic 62–117; PULSE 56–101; RESP 14–20; TEMP 36.2–37.2; O2SAT 91–94
--- NOTE | 2020-05-02 00:07 | NUR.NOTE ---
C-collar removed by MD Galvan. Provided with sandwich and drink.
--- NOTE | 2020-05-02 01:25 | NUR.NOTE ---
Medication list updated by using external med claim history and per pt recall.
--- NOTE | 2020-05-02 02:24 | PDOC.MHCN_ITS ---
Date of service: 05/02/20 Time of Service: 00:06 Mental Health Crisis Note Presenting Issue How did you arrive at the ED and why did you come: Client arrived by ambulance to the ED after a neighbor called because he was taking a sledgehammer to his front door. Precipitating Factors Client reports no SI or HI. Client reports hallucinations. He reports seeing people who are not there and carrying out a conversation with them. Client seems confused as to what day it is. He believes today is Wednesday. He also is confused about the weather. He is worried that things will freeze in his house because he forgot to turn the heat on. Client reports falling off his deck twice today and reports falling a few weeks ago and breaking some ribs. Disposition BEHAVIOR: Clients is calm and receptive when speaking with this quality analyst/technical writer. Client seems confused and at times has a difficult time answering this writers questions. EYE CONTACT: Client has a difficult time positioning the Ipad to make eye contact with this quality analyst/technical writer. When he does get the ipad positioned correctly, he makes minimal eye contact. MOOD: Client appears depressed and reports that he does not like the way his life is headed. AFFECT: Flat APPETITE: Client reports his appetite is good. SLEEP(trouble falling/staying asleep: Client reports that he does not sleep much. Plan A referral was put in for the Care Bed and all paperwork was faxed from hospital, client needs to have a negative COVID test before going. This quality analyst/technical writer spoke with Lizbeth Scott direct support professional caregiver and the plan is that client will remain at [facility] until negative COVID test comes back. Signature Clinician's Name/Title: Tiana Serrano [facility] Emergency Clinician
--- NOTE | 2020-05-02 06:11 | HPE_ITS ---
Date of service: 05/02/20 Time of Service: 06:12 Assessment and Plan Assessment and plan (1) Confusion: Status: Acute Assessment and plan: Appears to be psychiatric in nature, no medical issues identified as involved. Would probably benefit from psychiatric placement or supervision. I have not ordered any of his usual meds pending psychiatric input. History of Present Illness History of Present Illness Chief Complaint: confusion Narrative: 54 male with multiple psychiatric dxx, apparently not taking his meds recently, was brought in after trying to break down door with a sledge hammer. In ER was medically cleared, planned disposition to care bed, but requires COVID clearance. Admitted pending same. No trouble overnight except remains somewhat confused. By verbal r eport from ER patient has not been given any meds. Patient does c/o some bilateral rib pain, otherwise simply tells me that he does not plan to go to any facility and wishes to go home. Review of Systems All systems reviewed & are unremarkable except as noted in HPI and below PFSH Medical History Agoraphobia (Acute) Biventricular implantable cardioverter-defibrillator (ICD) in situ (Chronic) Mode:DDD, Low rate 60bpm, Atrial lead: medtronic 5076, SN: [id number] 09/27/14; RV lead Medtronic [id number] SN: [id number] 09/27/14; LV lead Medtronic 4396, SN; [id number] 09/27/14 (updated 03/11/20) Depression (Chronic) History of alcohol abuse (Resolved) History of tobacco abuse (Resolved) LBBB (left bundle branch block) (Chronic) Nonischemic dilated cardiomyopathy (Chronic) Pacemaker (Acute) Panic anxiety syndrome (Acute) PTSD (post-traumatic stress disorder) (Chronic) Severe chronic obstructive pulmonary disease (Chronic) Systolic and diastolic CHF, chronic (Chronic) Social History Smoking/Tobacco Use Status: Former Tobacco Use Quit Date: 10/25/15 Pack-years: 120 Alcohol Intake: former Drug use: Never Do you feel safe in your relationship?: Yes Meds Home Medications and Allergies Home Medications Medication Instructions Recorded Confirmed Type fluticasone propion-salmeterol 1 puff INHALATION BID disk 03/06/15 05/01/20 History [Advair Diskus] albuterol sulfate [ProAir HFA] 1 - 2 puff INHALATION Q4H PRN 09/27/15 05/02/20 History inhaler nitroglycerin 0.4 mg SUBLINGUAL one every 5 07/27/17 05/02/20 Rx mins. x3 #30 tab-cap Combivent Respimat 1 puff IH Q6H #4 gm 11/26/18 05/02/20 Rx ipratropium-albuterol 3 ml UPD Q4H PRN #1 packet 07/10/19 05/02/20 Rx montelukast 10 mg PO DAILY PRN PRN 03/08/20 05/01/20 History Trintellix 20 mg PO DAILY 03/11/20 05/02/20 History benztropine 1 mg PO HS #0 tab 03/17/20 05/01/20 Rx bupropion HCl 300 mg PO QAM #10 tab 03/17/20 05/01/20 Rx clonazepam 1 mg PO QID PRN #20 tab 03/17/20 05/01/20 Rx fludrocortisone 0.1 mg PO DAILY #10 tab 03/17/20 05/02/20 Rx gabapentin [Neurontin] 600 mg PO TID #9 tab 03/17/20 05/01/20 Rx pravastatin 20 mg PO QHS #10 tab 03/17/20 05/01/20 Rx quetiapine [Seroquel] 400 mg PO HS #3 tab 03/17/20 05/01/20 Rx Allergies Allergy/AdvReac Type Severity Reaction Status Date / Time citalopram Allergy Unverified 05/01/20 22:36 oxycodone HCl [From Percocet] AdvReac Addiction Unverified 05/01/20 22:36 Exam Narrative Exam Narrative: 115/69, 56, 367.2, 18, 94% RA. HEENT Atraumatic; neck supple; lungs clear; heart RRR w/o MRG; chest no bruising no tenderness; abdomen soft and NT; extremities w/o edema; neuro knows year and President, language veers in and out of coherence, moves all 4s Results Labs Result diagrams: 05/01/20 22:45 05/01/20 22:45 Labs: Laboratory Results - last 24 hr 05/01/20 05/01/20 05/01/20 22:45 22:45 22:45 WBC 7.47 RBC 5.43 Hgb 16.8 Hct 49.2 MCV 90.6 MCH 30.9 MCHC 34.1 RDW 13.1 Plt Count 178 MPV 11.1 H Immature Gran % 0.3 Neutrophils % 76.2 Lymphocytes % 9.1 Monocytes % 13.4 Eosinophils % 0.7 Basophils % 0.3 Absolute Neutrophils 5.70 Absolute Lymphocytes 0.68 L Absolute Monocytes 1.00 H Absolute Eosinophils 0.05 Absolute Basophils 0.02 Sodium 138 Potassium 4.4 Chloride 101 Carbon Dioxide 26.2 Anion Gap 10.8 BUN 13 Creatinine 1.36 H Estimated GFR/1.73 m2 54.21 Glucose 101 Calcium 9.4 Total Bilirubin 0.4 AST 20 ALT 23 Alkaline Phosphatase 84 Total Protein 7.5 Albumin 4.3 TSH 1.55 Urine Color Urine Clarity Urine pH Ur Specific [place] Urine Protein Urine Ketones Urine Blood Urine Nitrite Urine Bilirubin Urine Urobilinogen Ur Leukocyte Esterase Urine Glucose Salicylates < 2.8 Urine Opiates Screen Urine Methadone Screen Acetaminophen < 2 Ur Barbiturates Screen Ur Tricyclics Screen Ur Amphetamines Screen U Benzodiazepines Scrn Urine Cocaine Screen Ur THC Screen Ethyl Alcohol < 3.0 05/01/20 05/01/20 23:30 23:30 WBC RBC Hgb Hct MCV MCH MCHC RDW Plt Count MPV Immature Gran % Neutrophils % Lymphocytes % Monocytes % Eosinophils % Basophils % Absolute Neutrophils Absolute Lymphocytes Absolute Monocytes Absolute Eosinophils Absolute Basophils Sodium Potassium Chloride Carbon Dioxide Anion Gap BUN Creatinine Estimated GFR/1.73 m2 Glucose Calcium Total Bilirubin AST ALT Alkaline Phosphatase Total Protein Albumin TSH Urine Color Yellow Urine Clarity Clear Urine pH 5.5 Ur Specific [place] 1.010 Urine Protein Negative Urine Ketones 15 H Urine Blood Negative Urine Nitrite Negative Urine Bilirubin Negative Urine Urobilinogen 0.2 Ur Leukocyte Esterase Negative Urine Glucose Negative Salicylates Urine Opiates Screen Negative Urine Methadone Screen Negative Acetaminophen Ur Barbiturates Screen Negative Ur Tricyclics Screen Negative Ur Amphetamines Screen Negative U Benzodiazepines Scrn Negative Urine Cocaine Screen Negative Ur THC Screen Negative Ethyl Alcohol Last Vital Signs Temp 36.2 C L 05/02/20 05:09 Pulse 56 L 05/02/20 05:09 Resp 18 05/02/20 03:29 BP 140/78 05/02/20 03:29 Pulse Ox 94 L 05/02/20 03:29 COVID-19 Screening Have you,or anyone in your household, traveled outside of [place] in the last 14 days?: NO Had IN PERSON contact w/suspected or confirmed C-19 person: No
--- NOTE | 2020-05-02 08:47 | PGE_ITS ---
Date of Service Date of service: 05/02/20 Time of Service: 17:02 Subjective Subjective Interval history since last seen: Patient has become progressively more anxious and nonsensical, showing paranoid/unsafe ideation. [facility] and may not leave [place]. Objective Objective Clinical Data: Abnormal lab results 05/01/20 05/01/20 05/01/20 Range/Units 22:45 22:45 23:30 MPV 11.1 H (8.0-11.0) fL Absolute Lymphocytes 0.68 L (1.2-3.4) k/cumm Absolute Monocytes 1.00 H (0.11-0.7) k/cumm Creatinine 1.36 H (0.70-1.30) mg/dL Urine Ketones 15 H (Negative) mg/dL Vital Signs Temperature 36.2 C L 05/02/20 05:09 Temperature Source Temporal Artery Scan 05/02/20 05:09 Pulse 56 L 05/02/20 05:09 Respiratory Rate 18 05/02/20 03:29 Respiratory Effort 05/02/20 03:29 Respiratory Depth Normal 05/02/20 03:29 Blood Pressure 140/78 05/02/20 03:29 Blood Pressure Mean 98 05/02/20 03:29 Blood Pressure Position Supine 05/02/20 03:29 Pulse Oximetry 94 L 05/02/20 03:29 Oxygen Delivery Method Mechanical Ventilator 05/02/20 05:09 Oxygen Flow Rate 0 05/02/20 05:09 Fraction of Inspired Oxygen (FIO2) 50 05/02/20 05:09 Pain Level 0 05/02/20 05:09 Intake & Output 05/01/20 05/01/20 05/02/20 11:59 23:59 11:59 Weight 74 kg 74 kg Other: Comment voided in urinal in ED Laboratory Results WBC 7.47 k/cumm (4.4-10.8) 05/01/20 22:45 RBC 5.43 m/cumm (4.50-6.00) 05/01/20 22:45 Hgb 16.8 g/dL (13.5-17.5) 05/01/20 22:45 Hct 49.2 % (40.0-50.0) 05/01/20 22:45 MCV 90.6 fL (80-95) 05/01/20 22:45 MCH 30.9 pg (27.0-33.0) 05/01/20 22:45 MCHC 34.1 g/dL (32.0-36.0) 05/01/20 22:45 RDW 13.1 % (11.8-14.1) 05/01/20 22:45 Plt Count 178 x1000/uL (130-400) 05/01/20 22:45 MPV 11.1 fL (8.0-11.0) H 05/01/20 22:45 Immature Gran % 0.3 % 05/01/20 22:45 Neutrophils % 76.2 05/01/20 22:45 Lymphocytes % 9.1 05/01/20 22:45 Monocytes % 13.4 05/01/20 22:45 Eosinophils % 0.7 05/01/20 22:45 Basophils % 0.3 05/01/20 22:45 Absolute Neutrophils 5.70 k/cumm (1.2-6.7) 05/01/20 22:45 Absolute Lymphocytes 0.68 k/cumm (1.2-3.4) L 05/01/20 22:45 Absolute Monocytes 1.00 k/cumm (0.11-0.7) H 05/01/20 22:45 Absolute Eosinophils 0.05 k/cumm (0.0-0.7) 05/01/20 22:45 Absolute Basophils 0.02 k/cumm (0.0-0.2) 05/01/20 22:45 Sodium 138 mmol/L (136-145) 05/01/20 22:45 Potassium 4.4 mmol/L (3.5-5.1) 05/01/20 22:45 Chloride 101 mmol/L (98-107) 05/01/20 22:45 Carbon Dioxide 26.2 mmol/L (21.0-32.0) 05/01/20 22:45 Anion Gap 10.8 mmol/L (3-11) 05/01/20 22:45 BUN 13 mg/dL (7-18) 05/01/20 22:45 Creatinine 1.36 mg/dL (0.70-1.30) H 05/01/20 22:45 Estimated GFR/1.73 m2 54.21 (mL/min/1.73m2) 05/01/20 22:45 Glucose 101 mg/dL (74-106) 05/01/20 22:45 Calcium 9.4 mg/dL (8.5-10.1) 05/01/20 22:45 Total Bilirubin 0.4 mg/dL (0.2-1.0) 05/01/20 22:45 AST 20 U/L (15-37) 05/01/20 22:45 ALT 23 U/L (16-63) 05/01/20 22:45 Alkaline Phosphatase 84 U/L (46-116) 05/01/20 22:45 Total Protein 7.5 g/dL (6.4-8.2) 05/01/20 22:45 Albumin 4.3 g/dL (3.4-5.0) 05/01/20 22:45 TSH 1.55 uIU/mL (0.36-3.74) 05/01/20 22:45 Urine Color Yellow (Yellow) 05/01/20 23:30 Urine Clarity Clear (Clear) 05/01/20 23:30 Urine pH 5.5 (5-8) 05/01/20 23:30 Ur Specific Simon 1.010 (1.005-1.025) 05/01/20 23:30 Urine Protein Negative mg/dL (Negative) 05/01/20 23:30 Urine Ketones 15 mg/dL (Negative) H 05/01/20 23:30 Urine Blood Negative (Negative) 05/01/20 23:30 Urine Nitrite Negative (Negative) 05/01/20 23:30 Urine Bilirubin Negative (Negative) 05/01/20 23:30 Urine Urobilinogen 0.2 EU/dL (Up TO 0.2) 05/01/20 23:30 Ur Leukocyte Esterase Negative (Negative) 05/01/20 23:30 Urine Glucose Negative mg/dL (Negative) 05/01/20 23:30 Salicylates < 2.8 mg/dL (2.8-20.0) 05/01/20 22:45 Urine Opiates Screen Negative (Negative) 05/01/20 23:30 Urine Methadone Screen Negative (Negative) 05/01/20 23:30 Acetaminophen < 2 ug/mL (10-30) 05/01/20 22:45 Ur Barbiturates Screen Negative (Negative) 05/01/20 23:30 Ur Tricyclics Screen Negative (Negative) 05/01/20 23:30 Ur Amphetamines Screen Negative (Negative) 05/01/20 23:30 U Benzodiazepines Scrn Negative (Negative) 05/01/20 23:30 Urine Cocaine Screen Negative (Negative) 05/01/20 23:30 Ur THC Screen Negative (Negative) 05/01/20 23:30 Ethyl Alcohol < 3.0 mg/dL (<3) 05/01/20 22:45
[2020-05-02 09:20] LABS: Anion Gap 7.2 mmol/L (3-11); BUN 10 mg/dL (7-18); CO2 30.8 mmol/L (21.0-32.0); CREATININE 1.02 mg/dL (0.70-1.30); Calcium 9.4 mg/dL (8.5-10.1); Chloride 103 mmol/L (98-107); Glucose 123 mg/dL (74-106); Potassium 3.9 mmol/L (3.5-5.1); Sodium 141 mmol/L (136-145)
--- NOTE | 2020-05-02 11:13 | MHPN_ITS ---
Date of service: 05/02/20 Time of Service: 11:13 Mental Health Crisis Note Presenting Issue How did you arrive at the ED and why did you come: Attempted to assess patient via telehealth. The patient declined to engage with this clinician. Per care management, the patient cited breathing complaints and not wanting to appear on a screen. Precipitating Factors Was not able to assess at this time. Plan This clinician will attempt to assess at a later point today 05/02/20. Signature Clinician's Name/Title: Aniceto Mcneil [facility] Clinician
--- NOTE | 2020-05-02 11:32 | PHA.REVIEW ---
Pharmacy Admission Review - Admission Clinical Review (Last Reviewed 05/02/20 @ 06:19 by Hao Mi MD) Confusion (Acute) Auditory hallucination (Acute) citalopram Allergy (Unverified 05/01/20 22:36) oxycodone HCl [From Percocet] Adverse Reaction (Unverified 05/01/20 22:36) Addiction Height 5 ft 7 in Weight 74 kg - Renal Dosing Renal Dosing: BUN 10 mg/dL (7-18) 05/02/20 08:53 Creatinine 1.02 mg/dL (0.70-1.30) 05/02/20 08:53 Medications needing adjustments: Reviewed - Anticoagulation Anticoagulation: Hgb 16.8 g/dL (13.5-17.5) 05/01/20 22:45 Hct 49.2 % (40.0-50.0) 05/01/20 22:45 Plt Count 178 x1000/uL (130-400) 05/01/20 22:45 Creatinine 1.02 mg/dL (0.70-1.30) 05/02/20 08:53 DVT Prohphylaxis: N/A (REVIEW IF STAY EXTENDED) Therapeutic Anticoagulation: N/A - Opiate Usage Evaluate Pain Scale/Pains Meds: N/A - Relevant Labs Sodium 141 mmol/L (136-145) 05/02/20 08:53 Potassium 3.9 mmol/L (3.5-5.1) 05/02/20 08:53 Chloride 103 mmol/L (98-107) 05/02/20 08:53 Electrolytes, C-Reactive P, ESR: Reviewed - DM Control DM Control: Glucose 123 mg/dL (74-106) H 05/02/20 08:53 Insulin Dosing: N/A - Heart Failure/[place] EF%, TEOFILO's, B-Blockers, Diuretics: Reviewed - BP Control BP Control: Blood Pressure [Right Arm] 140/78 Blood Pressure 111/71 Blood Pressure 111/71 Blood Pressure 140/78 Blood Pressure 115/69 If elevated: Reviewed - Qtc Review If Elevated: Reviewed - IV to PO Switch IV Medications: Reviewed - Home Meds Home Med List reviewed: Intervened () Relevent Home Meds Not ordered & why?: Fludrocortisone -- was this supposed to be continued chronically upon his last discharge 03/17? Magdalena prescribed 3 days of all meds to hold until new bubble packs arrived from mail order pharmacy ([facility]) but his next bubble packs weren't dispensed until 03/27 -- lisinopril and metoprolol were dc'd from HIS med list but the new packs did not include fludrocortisone. Trintellix -- could not confirm this was being filled by his pharmacy; spoke with provider and she was giving him samples but wants us to discontinue this since he has not been taking it and will reevaluate his meds next outpatient visit - Current meds Current Medication Order Review: Reviewed
[2020-05-02] MEDS: Ipratropium/Albuterol 4 GM 120 PUFF INH IH ×3 (11:35→23:47)
[2020-05-02] MEDS: Budesonide/Formoterol 160/4.5 6 GM 60 PUFF INH IH ×2 (11:35→19:36)
[2020-05-02] MEDS: buPROPion-XL 150 MG TABCR 300 MG PO (11:36)
--- NOTE | 2020-05-02 11:38 | CMPROGNOTE_ITS ---
- If Service Date Differs Date of service: 05/02/20 Time of Service: 11:39 Care Management Progress Note S/O: William is unable to engage with CM at this time, he states he does not want to meet with mental health over the tablet and that he is having difficulty breathing. Patient appears to be having trouble catching his breath after washing up at the sink. CM disengaged and will reproach when patient has recovered and attempt a mental health visit this afternoon. CM reported to the nurse and provider the patients symptoms. A: William is a 54 year old male admitted with Psychosis with a significant mental health history including, post traumatic stress disorder and depression. He is well known to [facility] and has a medication provider through their service. Per mental health he is not suicidal or homicidal and per provider does not need a CPSO. P: William has placement at the care bed through [facility] awaiting COVID results prior to transition. CM will coordinate transition to facility when he is medically cleared to be discharged.
[2020-05-02 12:31] LABS: COVID-19 RT-PCR UVMMC Result Negative (Negative)
[2020-05-02] MEDS: Gabapentin 600 MG TAB PO ×2 (14:16→19:35)
[2020-05-02] MEDS: clonazePAM 1 MG TAB PO (15:36)
--- NOTE | 2020-05-02 16:38 | MHPN_ITS ---
Date of service: 05/02/20 Time of Service: 13:05 Mental Health Crisis Note Presenting Issue How did you arrive at the ED and why did you come: The patient is seen for a follow-up assessment via telehealth. The patient was voluntarily admitted to [facility] ED on 05/02 in relation to report from a neighbor claiming to observe the client breaking the front door of his own domicile with a sledgehammer while in a heightened state of confusion and/or duress. Precipitating Factors The patient presents sitting up wearing a standard issue paper gown. Appearance is disheveled. He is alert and oriented x4. General demeanor is highly agitated and the patient is unwilling to provide responses beyond basic orientation questions. When questioned on his recollection of events leading up to current hospital stay, he states that it's none of your business, and is observed to turn the ipad telehealth device around. A full assessment could not be performed as patient was unwilling to cooperate with assessment process after this point. Disposition BEHAVIOR: Agitated, unwilling to engage. EYE CONTACT: Minimal MOOD: N/A AFFECT: Agitated APPETITE: N/A SLEEP(trouble falling/staying asleep: N/A Plan The patient will be referred for additional [facility] evaluation based on recent report of emergent symptoms (A/V hallucinations per ED admit documentation) and potential safety concerns. Signature Clinician's Name/Title: Aniceto Mcneil [facility] Clinician
--- NOTE | 2020-05-02 17:00 | PDOC.CMSAFE ---
- If Service Date Differs Date of service: 05/02/20 Time of Service: 17:00 Care Management Safety Plan Safety Plan C.H. 05/02/2020, Involuntary placement INVOLUNTARY FOR INPATIENT PSYCHIATRIC STABILIZATION. Safety plan has been established to meet the needs of the patient, and consideration of the care team, to adhere to patient goals, identify restrictions based on behavioral status, address nutrition, and determine allowed personal belongings, tools for hygiene and personal care. Determine level of activity including ambulation, level of supervision, visitors, and determine privileges based on behaviors and level of engagement by pt. SAFETY PLAN: 1. Will remain on SI/HI precautions. In Paper Clothes 2. Will remain in room under direct supervision of one-on-one staff at all times provided by CPSO; POLLY, ADULT BASIC EDUCATION MANAGER forest fire management officer. Per [facility] patient has a history of elopement and is at risk for repeat attempt. 3. May have paper cups, plates, finger foods as well as a metal spoon to be accounted for after meal and at the discretion of staff. 4. Follow [facility] Management of the Admitted Behavioral Health Patient policy. 5. Comfort wipes, shower at the discretion of primary care team and level of engagement and safety. 6. No personal belongings 7. Visitors-legal lead generation representative, COATER CARBON PAPER, Talent Development Consultant 8. Activities: Soft tip markers, paper, books, and music. 9. Bathroom independently in the room 10. Phone: with supervision 11. Due to INVOLUNTARY status, if patient wishes to leave [facility], the [facility] harness worker must be contacted to re-evaluate patient prior to patient exiting the building. Patient is currently involuntarily at [facility] and seeking inpatient admission when a bed becomes available. [facility] Frontline Life Skills Coach will continue seeking placement. Please contact the Lockstitch Back Maker Transplant Surgeon ([phone]) and [facility] Life Skills Coach ([phone]) for any needed changes in the Safety Plan. Safety plan has been provided to interdepartmental team via electronic record.
[2020-05-02] MEDS: Pravastatin 20 MG TAB PO (19:36)
[2020-05-02] MEDS: QUEtiapine 100 MG TAB 400 MG PO (21:26)
[2020-05-02] MEDS: Benztropine 1 MG TAB PO (21:27)
[2020-05-03 01:45] VITALS: BP 101/68; PULSE 83; RESP 18; TEMP 36; O2SAT 96
[2020-05-03 03:29] VITALS: BP 108/74; PULSE 74; RESP 18; TEMP 36.1; O2SAT 96
[2020-05-03] MEDS: Ipratropium/Albuterol 4 GM 120 PUFF INH IH ×2 (06:22→10:32)
[2020-05-03] MEDS: buPROPion-XL 150 MG TABCR 300 MG PO (08:31)
[2020-05-03] MEDS: Montelukast 10 MG TAB PO (08:31)
[2020-05-03] MEDS: Gabapentin 600 MG TAB PO ×2 (08:31→13:57)
[2020-05-03 08:39] VITALS: BP 92/60; PULSE 76; RESP 14; TEMP 35.5; O2SAT 94
[2020-05-03 09:18] VITALS: BP 102/78
[2020-05-03] MEDS: Budesonide/Formoterol 160/4.5 6 GM 60 PUFF INH IH (10:33)
--- NOTE | 2020-05-03 11:48 | MHPN_ITS ---
Date of service: 05/03/20 Time of Service: 12:54 Mental Health Crisis Note Presenting Issue How did you arrive at the ED and why did you come: William arrived to [facility] yesterday via ambulance after a neighbor/friend called 911. He was screened and consequently placed on EE status due to what appeared to be visual and auditory hallucinations. Precipitating Factors William is denying SI and HI today. There is no evidence of hallucinations that are observed in my assessment of him. Disposition BEHAVIOR: William is cooperative and engaged as best as he can be. He is not causing any behaviors at the hospital and is looking and advocating to go home. EYE CONTACT: William makes good eye contact. MOOD: William appears anxious but is seeming to keep that under control today. AFFECT: Affect again presents as anxious but normal for him as reported by the Tinning Machine Set Up Operator who is familiar with him. APPETITE: William reported that he eating okay. He shared with the Tinning Machine Set Up Operator he is eating his Meals on Wheels. SLEEP(trouble falling/staying asleep: William reported that he has not been sleeping well. It was learned in the 2nd Cert that he had his dose of Seroquel decreased at his last admission. Maybe this is why he is not sleeping. Hamida Thomas met with Dr. Ruth Montemayor for a 2nd Cert today and her assessment decided to not EE William. Her concerns will be documented in her note. Arabella will follow up with [facility] to discuss [facility] meds they are prescribing and make sure he is not over medicated. This clinician will speak with [facility] on Wednesday to look at a possible admission if we can get William to agree especially if he is needing to rosenda off a medication. Signature Clinician's Name/Title: Cori Hull MS, [facility] Emergency Services Clinician
[2020-05-03 11:53] VITALS: BP 124/75; PULSE 100; RESP 18; TEMP 36.4; O2SAT 95
--- NOTE | 2020-05-03 14:58 | DSE_ITS ---
Date of service: 05/03/20 Time of Service: 14:59 DS: Diagnosis Discharge Diagnosis (1) Confusion: Status: Acute Discharge Plan Disposition Patient Disposition: HOME W/HOME HEALTH SERVICE Condition: Stable Discharge Details Chief Complaint: AMS/LOC Clinical Impression: Auditory hallucination Reason For Visit: PSYCHOSIS Admit Date/Time: 05/02/20 01:57 Admit Provider: Hao iM Attending Provider: Hao Mi Primary Care Provider: Lorrie Crespo ED Provider: Jaime Galvan Hospital Course Hospital Course: This is a 54-year-old male patient with an extensive psychiatric history who presented to the emergency department after 911 was called because he was having auditory and visual hallucinations and aggressive behavior trying to break down the door neighbor's door with a hammer. He was medically cleared in the emergency department and was admitted to [facility] awaiting a crisis bed. While awaiting crisis bed placement he began having more paranoid thoughts disorganized thoughts and possibly ongoing hallucinations. The decision was made to hold him on an EE. He remained cooperative medically stable. Second certification did deem him not appropriate for EE and decision was made to discharge him to home. Case management has been closely following and home health services will be reinitiated as it was felt that his decline was due to medication noncompliance. He will be discharged with home health nursing for medication oversight and routine nursing evaluation PT OT and medical secretary receptionist. His Trintellex was discontinued. The rest of his medications will stay as previously scheduled. Case and discharge plan was discussed with Dr. Lynne who is in agreement. Home Meds and New Rx's Prescriptions: Continued fluticasone propion-salmeterol [Advair Diskus] 1 EACH blister with device 1 puff Inhalation BID RF: 0 albuterol sulfate [ProAir HFA] 8.5 GM HFA aerosol inhaler 1 - 2 puff Inhalation Q4H PRN RF: 0 nitroglycerin 0.4 MG tablet, sublingual 0.4 mg Sublingual one every 5 mins. x3 Qty: 30 RF: 3 ipratropium-albuterol 0.5 mg-3 mg(2.5 mg base)/3 mL Solution For Nebulization 3 ml UPD Q4H PRNQty: 1 RF: 0 montelukast 10 mg tablet 10 mg PO DAILY RF: 0 gabapentin [Neurontin] 600 mg Tablet 600 mg PO TID Qty: 9 RF: 0 quetiapine [Seroquel] 400 mg Tablet 400 mg PO HS Qty: 3 RF: 0 benztropine 1 mg tablet 1 mg PO HS Qty: 0 RF: 0 bupropion HCl 300 mg tablet extended release 24 hr 300 mg PO QAM Qty: 10 RF: 0 pravastatin 20 mg tablet 20 mg PO QHS Qty: 10 RF: 0 clonazepam 2 mg tablet 1 mg PO QID PRN PRN (Reason: Anxiety) RF: 0 Combivent Respimat 20-100 mcg/actuation mist 1 puff IH Q6H Qty: 4 RF: 0 Discontinued Trintellix 10 mg Tablet 20 mg PO DAILY RF: 0 Discharge Instructions Instructions: Acute Delirium (DC) Additional Instructions: take all your medications as directed. Referrals: Lorrie Crespo [Primary Care Provider] - Activity:: Activity as Tolerated Equipment/Supplies:: No Equipment Needed Diet:: As Tolerated Discharge Orders Discharge Orders: Discharge Order (Routine); Ordered 05/03/20 Ordered By: Pham Ngo DS: Summary Status at Discharge Functional status at discharge: independent ambulation Overall status at discharge: patient is not back to baseline Mental Status: mental status grossly normal (at baseline) and other Speech and Movement: speech and movement normal Mood: anxious mood, paranoid and other Affect: blunted Exam Const General: cooperative, anxious, disheveled (older appearing than stated age, face reddened and sarina), frail appearing and ill appearing chronically Nutritional Appearance: average body habitus Orientation: alert and awake HENMT Head: normal to inspection, normocephalic and atraumatic Resp Effort & Inspection: normal respiratory effort Cardio Rate: regular rate Rhythm: regular rhythm GI Inspection: normal to inspection Palpation: soft Neuro General: patient alert, patient awake and patient oriented x3 Psych Appearance: disheveled Mental Status: mental status grossly normal (at baseline) and other Speech and Movement: speech and movement normal Mood: anxious mood, paranoid and other Affect: blunted Attitude: cooperative Thought Content: phobias Insight: limited Judgment: limited DS: Data Vitals/I&O Vitals and I&O: Vital Signs Temperature 36.4 C L 05/03/20 11:53 Temperature Source Temporal Artery Scan 05/03/20 11:53 Pulse 100 H 05/03/20 11:53 Pulse Rhythm Regular 05/03/20 08:35 Respiratory Rate 18 05/03/20 11:53 Respiratory Effort 05/03/20 08:35 Respiratory Depth Normal 05/03/20 08:35 Respiratory Pattern Normal 05/03/20 08:35 Blood Pressure 124/75 05/03/20 11:53 Blood Pressure Mean 84 05/02/20 12:00 Blood Pressure Position Supine 05/02/20 03:29 Pulse Oximetry 95 05/03/20 11:53 Oxygen Delivery Method Room Air 05/03/20 11:53 Oxygen Flow Rate 0 05/03/20 11:53 Fraction of Inspired Oxygen (FIO2) 50 05/02/20 05:09 Pain Level 0 05/03/20 11:53 Comment 05/03/20 11:53 Intake & Output 05/02/20 05/03/20 05/03/20 23:59 11:59 23:59 Intake Total 300 / 900 240 / 240 Balance 300 / 225 240 / 240 Intake: Oral 300 / 900 240 / 240 Other: Comment Void x1 in the toilet. Stool Size Moderate Stool Characteristics Soft Brown Voiding Methods Toilet [facility] Medical History Agoraphobia (Acute) Biventricular implantable cardioverter-defibrillator (ICD) in situ (Chronic) Mode:DDD, Low rate 60bpm, Atrial lead: medtronic 5076, SN: [id number] 09/27/14; RV lead Medtronic 6935M SN: [id number] 09/27/14; LV lead Medtronic 4396, SN; [id number] 09/27/14 (updated 03/11/20) Depression (Chronic) History of alcohol abuse (Resolved) History of tobacco abuse (Resolved) LBBB (left bundle branch block) (Chronic) Nonischemic dilated cardiomyopathy (Chronic) Pacemaker (Acute) Panic anxiety syndrome (Acute) PTSD (post-traumatic stress disorder) (Chronic) Severe chronic obstructive pulmonary disease (Chronic) Systolic and diastolic CHF, chronic (Chronic) Social History Smoking/Tobacco Use Status: Former Tobacco Use Quit Date: 10/25/15 Pack-years: 120 Alcohol Intake: former Drug use: Never Do you feel safe in your relationship?: Yes
--- NOTE | 2020-05-03 15:04 | PDOC.CMDIS ---
- If Service Date Differs Date of service: 05/03/20 Time of Service: 15:04 LACE Index Scoring Tool - Questions: Length of Stay (in days): 3 Acuity (Admit via E.D.?): Yes Comorbidities: Congestive Heart Failure, Chronic Pulmonary Disease E.D. Visits: 3 - Answers: Total Score: 14 Risk of Readmission: High Risk Care Management Discharge Reason for Hospitalization: Psychosis Discharge Plan: William will return home with new RN, PT, OT, MEDICAL NURSE. Today he met with Cori [facility], and Dr. Wilder, [facility] and CM to discuss his mental health. He stated that he is not suicidal or homicidal. Per MD, his med management is the biggest concern. His second certification was not upheld, as the MD felt he was safe to return home. MIRANDA called to refer him for new services. [facility] will follow up, and he has an appointment with Melanie at [facility] on Wednesday afternoon. He is very happy to be going home. Patient/Family Education Needs: Review discharge instructions regarding activity levels and medications, discussion of self care needs including ask me three. Services Needed at Discharge: Home Health Care Services (RN, PT, OT, MEDICAL NURSE), Transportation (RCT) - MH Services (Omit if N/A) Current MH Services: Internal [facility]
--- NOTE | 2020-05-03 16:11 | PDOC.HHF2F ---
Home Health Certification Home Health Certification: 1. Encounter Date and Reason I certify that GENNA MEYER was seen by Pham Ngo on 05/03/20 and that I had a [id number] encounter with this patient that meets the physician face to face encounter requirements. 2. Clinical Findings Supporting Skilled Need and Homebound Status I certify that home health services are medically necessary, include either intermittent senior care and/or physical/speech therapy, and that this patient is homebound in that absences from the home require considerable and taxing effort and are infrequent or of short duration, or are attributable to the need to receive medical care. [X] (a) Attached documentation from encounter provides clinical findings supporting skilled need and homebound status (including what assistance patient requires to leave the home). The encounter with the patient was in whole, or in part, for the following medical condition, which is the primary reason for home health care: PSYCHOSIS Fpc: routine nursing evaluation and medication oversight Physical/Occupational Therapy: routine evaluation and treatment to regain ability to perform ADL's and ambulate safely protective services case worker: routine assistance with community resources Homebound: patient is unable to leave home unassisted d/t cognitive impairment. 3. Certification and Authentication I certify that I composed the above information based on my clinical judgement relating to this patient's medical condition and, if applicable, clinical findings communicated to me by the NPP or inpatient physician who performed the Home Health Referral. All further orders will be obtained through (Community Based Physician - PCP)
== END 2020-05-03 16:00 | disposition home health service (06) ==
LOC: ER 05-02 02:02 → ICU 05-02 02:50 → MS 05-03 09:53 → ICU 05-06 12:26 → MS 05-06 12:26
PROVIDERS: Admitting Provider General Practice; Emergency Provider Emergency Medicine; PCP Nurse Practitioner Family; Visit Provider Internal Medicine
DX: R44.0 Auditory hallucinations (principal); R44.1 Visual hallucinations; Z11.59 Encounter for screening for other viral diseases; F43.10 Post-traumatic stress disorder, unspecified; Z91.14 Patient's other noncompliance with medication regimen; Z95.0 Presence of cardiac pacemaker; F32.9 Major depressive disorder, single episode, unspecified
CPT/HCPCS: 36415; 74177; 80048; 80053; 80307; 93005; 94640; 99222; 99239; 99285; NC; U0003; 70450; 71260; 72125; 80320; 80329; 81003; 84443; 85025; 93010; 99217; 99218; G0378; J3490

== ENCOUNTER 2020-05-16 15:04 | Inpatient (IN) | payer MEDICARE, SELFPAY ==
[2020-05-16] VITALS (54 sets, daily range): BP systolic 93–150; BP diastolic 66–88; PULSE 68–131; RESP 10–29; TEMP 36.1–37; O2SAT 88–95
--- NOTE | 2020-05-16 15:00 | RT.EKG_ITS ---
APPROVED REPORT Exam: Resting ECG Patient Location: E HR:84 bpm ECG Measurements Heart Rate [address] 159 P 0 QRSd 134 QRS 258 QT 387 T 18 QTc 459 <Conclusion> Atrial-sensed ventricular-paced rhythm...ventricular pacing tracks p-waves Biventricular paced rhythm...non-simultaneous bi-vent pacing. No acute change from previous EKG.
--- NOTE | 2020-05-16 15:15 | DI.RAD_ITS ---
EXAM: XR CHEST 2V PA LATERAL CLINICAL HISTORY: AMS TECHNIQUE: 2D digital imaging was performed. COMPARISON: CR XR CHEST 2V PA LATERAL from 09/29/2019 FINDINGS: MEDIASTINUM: Normal. HEART: Normal. PULMONARY VASCULATURE: Normal. LUNGS: Bilateral basilar infiltrates which may represent atelectasis or scarring. No focal consolida tion. Hyperinflated lungs suggestive of COPD. PLEURAL SPACE: No pleural effusion or pneumothorax. BONE:Normal. OTHER FINDINGS:Pacemaker and leads appear in good position. IMPRESSION: No acute pulmonary findings. DATA REPOSITORY: RADIATION DOSE DELIVERED:
--- NOTE | 2020-05-16 15:15 | DI.CT_ITS ---
EXAM: CT HEAD WO CLINICAL HISTORY: AMS. TECHNIQUE: Imaging Protocol: Axial computed tomography images with coronal and sagittal reformatted images were created and reviewed COMPARISON: CT CT HEAD CERVICAL SPINE WO from 05/01/2020 FINDINGS: Ventricles and Extra axial spaces: Normal in size and morphology for the patient's age. Hemorrhage: None. Cerebral parenchyma: Normal. No evidence of an acute territorial infarct at this time. Midline shift: None. Brainstem/Cerebellum: Normal. Calvarium: Normal. Visualized Paranasal sinuses/Mastoids: Clear. Soft Tissues: Unremarkable. IMPRESSION: No acute intracranial process. RADIATION DOSE DELIVERED: Total DLP DATA REPOSITORY: All CT scans at this facility are submitted to the National Radiology Data Registry (NRDR) Dose Index Registry (DIR) with the [employer] (ACR). RADIATION OPTIMIZATION: All CT scans at this facility use at least one of these dose optimization te chniques: automated exposure control; mA and/or kV adjustment per patient size (includes targeted exa ms where dose is matched to clinical indication); or iterative reconstruction.
--- NOTE | 2020-05-16 15:31 | ED.GENADUL_ITS ---
Discharge Plan Disposition Patient Disposition: [facility] INPATIENT Condition: Serious Discharge Details Chief Complaint: AMS/LOC Clinical Impression: Acute alteration in mental status Admit Date/Time: 05/16/20 19:39 Admit Provider: Hao Velasquez Attending Provider: Hao Velasquez Primary Care Provider: Lorrie Crespo ED Provider: Erik Grace Discharge Data Discharge Date/Time-TO BE ENTERED AT DEPARTURE: 05/16/20 20:55 Medical Decision Making <Amy Wild - Last Filed: 05/17/20 08:42> 54-year-old male presents to the ER with altered mental status. Patient came in via EMS. There is reports that home health care and state police were on scene. Upon initial exam patient is altered is speaking very quietly garbled speech, poor historian. He does have multiple home health notes and care management notes. He has been followed by mental health was recently admitted and discharged on May 03 for acute delirium and psychosis. At this time history is severely limited due to patient condition. He has no focal neuro deficits. He is following commands without difficulty. No signs of acute trauma noted. Does have a history of alcohol abuse, he does have a biventricular implantable defib rillator in situ, also has a history of panic anxiety syndrome, PTSD, and COPD. At this time due to patient's history of PTSD, COPD, implantable ICD pacemaker and left bundle branch block, and altered mental status CBC, CMP, urinalysis with urine drug screen, alcohol level, CT head without contrast, chest x-ray, serial troponins x2. EKG was reviewed by Dr. Erik Garce ER attending, shows a ventricular paced rhythm. Please see his official report. Differential diagnosis includes but not limited to drug overdose, trauma, electrolyte abnormality, infection, substance abuse. <Erik Grace MD - Last Filed: 05/20/20 16:51> 1600??care signed out by SAMMY Wild, please see her documentation regarding initial ED presentation and course, plan to follow-up on CT head, labs, pacer interrogation. Patient to receive crystalloid 1 L bolus. -- Head CT was interpreted by radiology: No acute intracranial abnormality. Changes of an acute infarct may not be visible on CT for up to 24 to 48 hours. Chest x-ray was interpreted by radiology: No new findings. Lungs hyperinflated suggestive of COPD. Linear scarring or atelectasis both lung bases similar. Pacer was interrogated and, ventricular tachycardia noted. No shocks.Remaining longevity noted to be 18 months. --Patient reassessed after IV fluid bolus and heart rate improved. --Labs reviewed and nondiagnostic. UDS concerning for positive opiates, positive THC, positive benzodiazepine. Polysubstance abuse is likely contributing to altered mental status today. Plan will be to admit for observation of altered mental status. I spoke with Dr. Velasquez who will admit the patient. Patient does have a history of alcohol abuse. I will give thiamine 100 mg IV. HPI <Amy Wild - Last Filed: 05/17/20 08:42> General Mode of arrival: EMS . Date/Time Provider Initiated Documentation: 05/16/20 15:27 . Limitations to Documentation: altered mental status and physical limitation . Information obtained by: patient, RN/MD, EMS and old records reviewed . HPI Narrative: 54-year-old male presents to the ER with altered mental status. Patient came in via EMS. There is reports that home health care and state police were on scene. Upon initial exam patient is altered is speaking very quietly garbled speech, poor historian. He does have multiple home health notes and care management notes. He has been followed by mental health was recently admitted and discharged on May 03 for acute delirium and psychosis. At this time history is severely limited due to patient condition. He has no focal neuro deficits. He is following commands without difficulty. No signs of acute trauma noted. Does have a history of alcohol abuse, he does have a biventricular implantable defibrillator in situ, also has a history of panic anxiety syndrome, PTSD, and COPD. Related Data Home Medications Medication Instructions Recorded Confirmed albuterol sulfate [ProAir HFA] 1 - 2 puff INHALATION Q4H PRN 09/27/15 05/16/20 inhaler nitroglycerin 0.4 mg SUBLINGUAL one every 5 07/27/17 05/16/20 mins. x3 #30 tab-cap Combivent Respimat 1 puff IH Q6H #4 gm 11/26/18 05/16/20 ipratropium-albuterol 3 ml UPD Q4H PRN #1 packet 07/10/19 05/16/20 montelukast 10 mg PO DAILY 03/08/20 05/16/20 benztropine 1 mg PO HS #0 tab 03/17/20 05/16/20 bupropion HCl 300 mg PO QAM #10 tab 03/17/20 05/16/20 gabapentin [Neurontin] 600 mg PO TID #9 tab 03/17/20 05/16/20 pravastatin 20 mg PO QHS #10 tab 03/17/20 05/16/20 quetiapine [Seroquel] 400 mg PO HS #3 tab 03/17/20 05/16/20 clonazepam 1 mg PO QID PRN PRN 05/02/20 05/16/20 Previous Rx's Medication Instructions Recorded nitroglycerin 0.4 mg SUBLINGUAL one every 5 07/27/17 mins. x3 #30 tab-cap Combivent Respimat 1 puff IH Q6H #4 gm 11/26/18 ipratropium-albuterol 3 ml UPD Q4H PRN #1 packet 07/10/19 benztropine 1 mg PO HS #0 tab 03/17/20 bupropion HCl 300 mg PO QAM #10 tab 03/17/20 gabapentin [Neurontin] 600 mg PO TID #9 tab 03/17/20 pravastatin 20 mg PO QHS #10 tab 03/17/20 quetiapine [Seroquel] 400 mg PO HS #3 tab 03/17/20 Allergies Allergy/AdvReac Type Severity Reaction Status Date / Time citalopram Allergy Unverified 05/01/20 22:36 oxycodone HCl [From Percocet] AdvReac Addiction Unverified 05/01/20 22:36 General Stated Complaint: AMS/LOC MOLLY: 2 Review of Systems <Amy Wild - Last Filed: 05/17/20 08:42> Narrative: Constitutional: Altered mental status HEENT: Denies trauma, headaches, blurry vision, nasal discharge, sore throat, trouble swallowing. Chest: Denies chest pain, palpitations, irregular rhythm, hypertension. Respiratory: Denies Shortness of breath, cough, hemoptysis. GI: Denies abdominal pain, nausea, vomiting, diarrhea, constipation. : Denies dysuria, hematuria, flank pain, rectal bleeding. Neuro: Denies dizziness, blurry vision, weakness, syncope, headache or facial numbness. Hematologic: Denies easy bruising, intolerance to heat or cold, hair loss. Only complaint is hip pain. Questionable fall this morning however patient changes his story. All systems reviewed & are unremarkable except as noted in HPI and below and Unobtainable due to mental condition (Altered mental status) PFSH <Amy Wild - Last Filed: 05/17/20 08:42> Medical History Agoraphobia (Acute) Biventricular implantable cardioverter-defibrillator (ICD) in situ (Chronic) Mode:DDD, Low rate 60bpm, Atrial lead: medtronic 5076, SN: [id number] 09/27/14; RV lead Medtronic 6935M SN: [id number] 09/27/14; LV lead Medtronic 4396, SN; [id number] 09/27/14 (updated 03/11/20) Depression (Chronic) History of alcohol abuse (Resolved) History of tobacco abuse (Resolved) LBBB (left bundle branch block) (Chronic) Nonischemic dilated cardiomyopathy (Chronic) Pacemaker (Acute) Panic anxiety syndrome (Acute) PTSD (post-traumatic stress disorder) (Chronic) Severe chronic obstructive pulmonary disease (Chronic) Systolic and diastolic CHF, chronic (Chronic) Social History Smoking/Tobacco Use Status: Former Tobacco Use Quit Date: 10/25/15 Pack-years: 120 Alcohol Intake: former Drug use: Never Do you feel safe at home: Yes Do you feel safe in your relationship?: Yes Additional Social history: lives alone Exam <Amy Wild - [facility] Filed: 05/17/20 08:42> Narrative Exam Narrative: Constitutional: Confused, appears sedated or lethargic, appears stated age. Normal body habitus. Head: Normocephalic, no trauma. Eyes: Pupils 2 mm bilaterally and sluggish, Red reflex noted, decreased left cerebral gaze, eyelids symmetrical without lesions, discharge, or swelling. ENT: Bilateral TM's WNL, External ear normal to inspection, no mastoid TTP, swelling, or erythema, Nasal turbinates WNL, no nasal discharge. Normal dentition, dry mucous membranes, posterior pharynx WNL, no exudate. Chest: Paced rhythm, rate of 83, normal S1, S2, distal pulses intact. Resp: Lungs clear to auscultation bilaterally, no wheezes, rales, or rhonchi. Musculoskeletal: Unable to assess gait at this time, 5/5 strength to bilateral lower extremities. 4 out of 5 strength to bilateral upper extremities. Skin: No suspicious rashes or lesions. Capillary refill less than 2 sec. Neurologic: Cranial nerves II-XII intact. Bilateral upper extremities generalized weakness, see neuro exam below. Follows commands. Hematologic/Lymphatic: No ecchymosis, no lymphadenopathy. Neuro General: moves all extremities, patient confused and unable to assess gait Cranial Nerves: CN's II-XI intact bilaterally, tongue midline and able to elevat e shoulders bilaterally Cognition: abnormal cognition Speech: abnormal speech garbled and slurred Motor: no pronator drift, no fasciculations and strength abnormal (Upper extremities bilaterally, 4 out of 5 strength) Pupils: Sluggish: right and left (2 mm bilaterally) Course <Amy Wild - Julio Filed: 05/17/20 08:42> Vital Signs Vital signs: Vital Signs Temperature 37 C 05/16/20 14:58 Pulse 131 H 05/16/20 14:58 Respiratory Rate 14 05/16/20 14:58 Blood Pressure 100/66 05/16/20 14:58 Pulse Oximetry 94 L 05/16/20 14:58 Temperature 37 C 05/16/20 14:58 Temperature Source Skin 05/16/20 14:58 Pulse 131 H 05/16/20 14:58 Respiratory Rate 14 05/16/20 14:58 Respiratory Effort 05/16/20 15:10 Blood Pressure 100/66 05/16/20 14:58 Pulse Oximetry 94 L 05/16/20 14:58 Oxygen Delivery Method Room Air 05/16/20 14:58 Oxygen Flow Rate 0 05/16/20 14:58 Comment pt unable to give number for pain 05/16/20 14:58 Sign Out <Amy Wild - Julio Filed: 05/17/20 08:42> Sign Out Data: Sign Out Comment: Care to be handed off pending lab results, head CT, possible admission for altered mental status. Last updated by Amy Wild at 05/16/20 16:24
[2020-05-16] MEDS: Normal Saline 1,000 ML 1000 ML IV (15:46)
[2020-05-16 15:57] LABS: Abs Immature Grans 0.02 k/cumm (0.0-0.09); Absolute Basophil Count 0.03 k/cumm (0.0-0.2); Absolute Eosinophil Count 0.12 k/cumm (0.0-0.7); Absolute Lymphocyte Count 1.01 k/cumm (1.2-3.4); Absolute Monocyte Count 0.67 k/cumm (0.11-0.7); Basophils % 0.5; Eosinophils % 1.8; HCT 46.2 % (40.0-50.0); HGB 15.5 g/dL (13.5-17.5); Immature Grans % 0.3 %; Lymphocytes % 15.4; Mean Corp. HGB Concentration 33.5 g/dL (32.0-36.0); Mean Corpuscular Hemoglobin 31.5 pg (27.0-33.0); Mean Corpuscular Volume 93.9 fL (80-95); Mean Platelet Volume 11.4 fL (8.0-11.0); Monocytes % 10.2; Neutrophils % 71.8; Platelet Count 152 x1000/uL (130-400); RBC 4.92 m/cumm (4.50-6.00); RBC Distribution Width 13.7 % (11.8-14.1); White Blood Cell Count 6.55 k/cumm (4.4-10.8)
[2020-05-16 16:16] LABS: ALT 21 U/L (16-63); AST 19 U/L (15-37); Albumin 3.3 g/dL (3.4-5.0); Alkaline Phosphatase 90 U/L (46-116); Anion Gap 9.6 mmol/L (3-11); BUN 12 mg/dL (7-18); Bilirubin, Total 0.4 mg/dL (0.2-1.0); CO2 23.4 mmol/L (21.0-32.0); Calcium 8.5 mg/dL (8.5-10.1); Chloride 107 mmol/L (98-107); Glucose 103 mg/dL (74-106); Potassium 4.8 mmol/L (3.5-5.1); Sodium 140 mmol/L (136-145); Total Protein 6.4 g/dL (6.4-8.2)
[2020-05-16 16:19] LABS: Troponin I < 0.05 ng/mL (<0.06)
[2020-05-16 16:20] LABS: ETHANOL BLOOD < 3.0 mg/dL (<3)
--- NOTE | 2020-05-16 17:00 | DI.VRAD_ITS ---
PROCEDURE INFORMATION: Exam: XR Chest, 2 Views Exam date and time: 05/16/2020 4:39 PM Age: 54 years old Clinical indication: Other: AMS TECHNIQUE: Imaging protocol: XR of the chest Views: 2 views. COMPARISON: CR XR CHEST 2V PA LATERAL 09/29/2019 2:43 PM FINDINGS: Tubes, catheters and devices: Pacemaker device present, and leads appear to be in appropriate position. Lungs: Lungs hyperinflated suggestive of COPD. Linear scarring or atelectasis both lung bases similar. No consolidation. Pleural space: Unremarkable. No pleural effusion. No pneumothorax. Heart/Mediastinum: Unremarkable. No cardiomegaly. Bones/joints: Unremarkable. IMPRESSION: No new findings. Dictated and Authenticated by: Hao Pappas MD. Ordering:DARIEN Reyes MD
--- NOTE | 2020-05-16 17:04 | DI.VRAD_ITS ---
PROCEDURE INFORMATION: Exam: CT Head Without Contrast Exam date and time: 05/16/2020 3:30 PM Age: 54 years old Clinical indication: Altered mental status/memory loss TECHNIQUE: Imaging protocol: Computed tomography of the head without contrast. COMPARISON: CT HEAD CERVICAL SPINE WO 05/01/2020 11:01 PM FINDINGS: Brain: Mild small vessel ischemic changes in the periventricular white matter. No evidence of an acute cortical infarct. Ventricles: Normal. No ventriculomegaly. Bones/joints: Unremarkable. No acute fracture. Sinuses: Visualized sinuses are unremarkable. No fluid levels. Mastoid air cells: Visualized mastoid air cells are well aerated. Soft tissues: Unremarkable. IMPRESSION: No acute intracranial abnormality. Changes of an acute infarct may not be visible on CT for up to 24 to 48 hours. Dictated and Authenticated by: Hao Pappas MD. Ordering:DARIEN Reyes MD
--- NOTE | 2020-05-16 17:26 | CMSP_ITS ---
- If Service Date Differs Date of service: 05/16/20 Time of Service: 17:27 Care Management Safety Plan William is a 54 year old man with a significant mental health history including PTSD, agorophobia, anxiety and depression. He is well known to [facility] and has a medication provider through the agency. William is being followed by home health and they notified [facility] of their concerns about his general health and well being, altered mental status and apparent non-compliance with his medication regimen. [facility] screener made a home visit and determined that William should be seen in the ED for evaluation. EMS was contacted and William was transported to the ED via ambulance. CM will respond to ED to assess patient after patient has been medically cleared and assessed by screener. If screener deems patient meets criteria for psychiatric stabilization CM will facilitate interdepartmental huddle with [facility] screener for safety planning considerations and meet with patient to review [facility] policy and safety plan, establish individual wishes for treatment and maintain patient rights. In the interim; please note safety plan below to guide patient care while awaiting further assessment in the ED. SAFETY PLAN: 1. Will remain on suicide precautions and in paper clothes. 2. Will remain in room under direct supervision of one-on-one staff at all times provided by POLLY, MEDICAL DETAIL REPRESENTATIVE residential advisor. 3. May have paper cups, plates, finger foods as well as a cardboard spoon with which to eat meals. 4. Follow [facility] Management of the Admitted Behavioral Health Patient policy. 5. Comfort bath system only. 6. No personal belongings 7. No visitors. 8. Phone contact limited to?.. 9. Due to VOLUNTARY status, if patient wishes to leave [facility], the [facility] social worker masters must be contacted to re-evaluate patient prior to patient exiting the building. If deemed appropriate for inpatient psychiatric care, safety plan will be established with patient, and care team, to adhere to patient goals, identify restrictions based on behavioral status, address nutrition, and determine allow ed personal belongings, tools for hygiene and personal care. As well plan will determine level of activity including ambulation, level of supervision, visitors, and determine privileges based on level of acuity, behaviors and level of engagem
[2020-05-16 18:24] LABS: Bilirubin Negative (Negative); Blood Negative (Negative); Clarity Clear (Clear); Glucose Negative (Negative); Ketones Negative (Negative); Leukocyte Esterase Negative (Negative); Nitrite Negative (Negative); Urobilinogen 0.2 EU/dL (Up TO 0.2)
[2020-05-16 18:28] LABS: *AMPHETAMINES SCREEN URINE Negative (Negative); *BARBITURATES SCREEN URINE Negative (Negative); *BENZODIAZEPINES SCREEN URINE POSITIVE (Negative); Cannabinoids THC Negative (Negative); Cocaine Screen,Urine Negative (Negative); METHADONE URINE SCREEN Negative (Negative); OPIATES URINE SCREEN POSITIVE (Negative); Tricyclic Antidepressants POSITIVE (Negative)
--- NOTE | 2020-05-16 18:45 | RT.EKG_ITS ---
APPROVED REPORT Exam: Resting ECG Patient Location: E HR:72 bpm ECG Measurements Heart Rate 72 AXIS VT 68 P 246 QRSd 146 QRS 243 QT 420 T 6 QTc 459 <Conclusion> Atrial-sensed ventricular-paced rhythm...ventricular pacing tracks p-waves Biventricular paced rhythm...non-simultaneous bi-vent pacing
[2020-05-16] MEDS: THIAMINE 100 MG in Normal Saline 100 ML 200 MG IVPB (18:48)
[2020-05-16 19:05] LABS: Troponin I < 0.05 ng/mL (<0.06)
--- NOTE | 2020-05-16 19:19 | NUR.NOTE ---
Nursing Note: Patient noted to be up in room removing cardiac lines. Encouraged patient back into bed and to take a nap. Side rails up, curtain open, door closed and lights off to settle patient. Call persaud within reach.
--- NOTE | 2020-05-16 19:38 | W.PM.HP.N ---
Date of service: 05/16/20 Time of Service: 19:38 Assessment and Plan Assessment and plan (1) Acute alteration in mental status: Start date: 05/16/20 Status: Acute Assessment and plan: This is a 54-year-old who is often admitted with altered mental status and having questionable compliance with his outpatient medications with a history of polysubstance abuse and admission drug screen showing opiates which are prescribed by his medication list but per patient may be secondary to Vicodin prescribed by his new PCP. Even with prescription medications it appears he does not always take his prescribed dose and has higher dosages on his list than he consistently takes at home. This may be dangerous and causing his recurrent altered mental status. Presently he is clearing his mental status and we will observe overnight with minimal change in his medications reducing some his medication dosages such as Seroquel and holding others that may be sedating such as Klonopin. (2) Polysubstance abuse: Status: Chronic Assessment and plan: Patient may have problems with self treating with his PTSD. His drug screen is showing opiates which are not prescribed but this is unclear. He does have a history of previous self treatment and abuse of street drugs though he states he only takes prescribed medications presently. He is very anxious with his agoraphobia. (3) Nonischemic dilated cardiomyopathy: Status: Chronic Assessment and plan: Status post pacemaker placement with patient appearing to have no acute cardiovascular decompensation. He is a full code and will be observed for cardiac decompensation. History of Present Illness History of Present Illness Chief Complaint: Altered mental status Narrative: This is a 54-year-old gentleman who has PTSD and agoraphobia who lives at home alone and was brought to the ED via EMS after home health called state police because of patient's altered mental status and confusion. In the ED patient slowly cleared his mental status and evaluation was unrevealing except for his urine drug being revealing. Gildardocarol on home med list. Did ask patient if he is on anything for pain and he stated that he was prescribed Vicodin recently but had a change the PCP who was not listening to me. His story was changing during conversation with me and with the ED provider. He has multiple medical problems and a confusing medication list which may not always be what he takes at home with the patient having adverse reactions to his psychiatric medications being given to him at the doses given on his list with previous admissions according to the nurse. The patient offers no history with my conversation but did seem more clear and less confused at time I spoke to him. Review of Systems Narrative: 13 point review of systems otherwise unrevealing or unobtainable with patient being poor historian. [facility] Medical History Agoraphobia (Acute) Biventricular implantable cardioverter-defibrillator (ICD) in situ (Chronic) Mode:DDD, Low rate 60bpm, Atrial lead: medtronic 5076, SN: [id number] 09/27/14; RV lead Medtronic 6935M SN: [id number] 09/27/14; LV lead Medtronic 4396, SN; [id number] 09/27/14 (updated 03/11/20) Depression (Chronic) History of alcohol abuse (Resolved) History of tobacco abuse (Resolved) LBBB (left bundle branch block) (Chronic) Nonischemic dilated cardiomyopathy (Chronic) Pacemaker (Acute) Panic anxiety syndrome (Acute) PTSD (post-traumatic stress disorder) (Chronic) Severe chronic obstructive pulmonary disease (Chronic) Systolic and diastolic CHF, chronic (Chronic) Social History Smoking/Tobacco Use Status: Former Tobacco Use Quit Date: 10/25/15 Pack-years: 120 Alcohol Intake: former Drug use: Never Do you feel safe at home: Yes Do you feel safe in your relationship?: Yes Additional Social history: lives alone Meds Home Medications and Allergies Home Medications Medication Instructions Recorded Confirmed Type fluticasone propion-salmeterol 1 puff INHALATION BID disk 03/06/15 05/16/20 History [Advair Diskus] albuterol sulfate [ProAir HFA] 1 - 2 puff INHALATION Q4H PRN 09/27/15 05/16/20 History inhaler nitroglycerin 0.4 mg SUBLINGUAL one every 5 07/27/17 05/16/20 Rx mins. x3 #30 tab-cap Combivent Respimat 1 puff IH Q6H #4 gm 11/26/18 05/16/20 Rx ipratropium-albuterol 3 ml UPD Q4H PRN #1 packet 07/10/19 05/16/20 Rx montelukast 10 mg PO DAILY 03/08/20 05/16/20 History benztropine 1 mg PO HS #0 tab 03/17/20 05/16/20 Rx bupropion HCl 300 mg PO QAM #10 tab 03/17/20 05/16/20 Rx gabapentin [Neurontin] 600 mg PO TID #9 tab 03/17/20 05/16/20 Rx pravastatin 20 mg PO QHS #10 tab 03/17/20 05/16/20 Rx quetiapine [Seroquel] 400 mg PO HS #3 tab 03/17/20 05/16/20 Rx clonazepam 1 mg PO QID PRN PRN 05/02/20 05/16/20 History Allergies Allergy/AdvReac Type Severity Reaction Status Date / Time citalopram Allergy Unverified 05/01/20 22:36 oxycodone HCl [From Percocet] AdvReac Addiction Unverified 05/01/20 22:36 Exam Narrative Exam Narrative: General: Patient has small stature and thin appearing generally deconditioned, very anxious with poor eye contact and hesitant speech. He appears alert oriented to at least person and place. He is mildly distressed in the hospital. He has a history of agoraphobia. HEENT: Normocephalic with eyes revealing pupils equal and reactive to light symmetrically, extraocular movement intact and sclera anicteric. Oropharynx with slightly dry mucosa and poor dentition. Externally ears normal. Neck: Supple without JVD. Back: Stooped posture with no CVA tenderness. Chest: Slightly barrel chested but palpable pacemaker over the left upper chest with no focalizing tenderness. Lungs: Fair aeration with bronchovesicular breath sounds diffusely, no adventitious sounds. No focalized rales or rhonchi. Heart: Regular rate and rhythm with normal gallops appreciated. Abdomen: Soft, normal contour, nontender with no palpable hepatosplenomegaly. Genitalia/rectal: Exam deferred. Extremities: Without clubbing, cyanosis or pitting edema. Skin: Subsequently, warm and no rashes noted. Unkempt. Neuro: Cranial through 12 grossly intact, no focalizing motor deficits. Psych: Anxious with appropriate answers to questions at times, very paranoid and depressed. Remote and recent memory appear grossly intact with the patient is a vague historian. Results Imaging Imaging Studies: Exam: XR Chest, 2 Views Exam date and time: 05/16/2020 4:39 PM Age: 54 years old Clinical indication: Other: AMS TECHNIQUE: Imaging protocol: XR of the chest Views: 2 views. COMPARISON: CR XR CHEST 2V PA LATERAL 09/29/2019 2:43 PM FINDINGS: Tubes, catheters and devices: Pacemaker device present, and leads appear to be in appropriate position. Lungs: Lungs hyperinflated suggestive of COPD. Linear scarring or atelectasis both lung bases similar. No consolidation. Pleural space: Unremarkable. No pleural effusion. No pneumothorax. Heart/Mediastinum: Unremarkable. No cardiomegaly. Bones/joints: Unremarkable. IMPRESSION: No new findings. Dictated and Authenticated by: Hao Pappas MD. Exam: CT Head Without Contrast Exam date and time: 05/16/2020 3:30 PM Age: 54 years old Clinical indication: Altered mental status/memory loss TECHNIQUE: Imaging protocol: Computed tomography of the head without contrast. COMPARISON: CT HEAD CERVICAL SPINE WO 05/01/2020 11:01 PM FINDINGS: Brain: Mild small vessel ischemic changes in the periventricular white matter. No evidence of an acute cortical infarct. Ventricles: Normal. No ventriculomegaly. Bones/joints: Unremarkable. No acute fracture. Sinuses: Visualized sinuses are unremarkable. No fluid levels. Mastoid air cells: Visualized mastoid air cells are well aerated. Soft tissues: Unremarkable. IMPRESSION: No acute intracranial abnormality. Changes of an acute infarct may not be visible on CT for up to 24 to 48 hours. Dictated and Authenticated by: Hao Pappas MD. Labs Result diagrams: 05/16/20 15:20 05/16/20 15:20 Labs: Laboratory Results - last 24 hr 05/16/20 05/16/20 05/16/20 15:20 15:20 18:15 WBC 6.55 RBC 4.92 Hgb 15.5 Hct 46.2 MCV 93.9 MCH 31.5 MCHC 33.5 RDW 13.7 Plt Count 152 MPV 11.4 H Immature Gran % 0.3 Neutrophils % 71.8 Lymphocytes % 15.4 Monocytes % 10.2 Eosinophils % 1.8 Basophils % 0.5 Absolute Neutrophils 4.70 Absolute Lymphocytes 1.01 L Absolute Monocytes 0.67 Absolute Eosinophils 0.12 Absolute Basophils 0.03 Sodium 140 Potassium 4.8 Chloride 107 Carbon Dioxide 23.4 Anion Gap 9.6 BUN 12 Creatinine 1.30 Estimated GFR/1.73 m2 57.10 Glucose 103 Calcium 8.5 Magnesium 2.0 Total Bilirubin 0.4 AST 19 ALT 21 Alkaline Phosphatase 90 Troponin I < 0.05 Total Protein 6.4 Albumin 3.3 L Urine Color Urine Clarity Urine pH Ur Specific Theresa Urine Protein Urine Ketones Urine Blood Urine Nitrite Urine Bilirubin Urine Urobilinogen Ur Leukocyte Esterase Urine Glucose Urine Opiates Screen Positive A Urine Methadone Screen Negative Ur Barbiturates Screen Negative Ur Tricyclics Screen Positive A Ur Amphetamines Screen Negative U Benzodiazepines Scrn Positive A Urine Cocaine Screen Negative Ur THC Screen Negative Ethyl Alcohol < 3.0 05/16/20 05/16/20 18:15 18:45 WBC RBC Hgb Hct MCV MCH MCHC RDW Plt Count MPV Immature Gran % Neutrophils % Lymphocytes % Monocytes % Eosinophils % Basophils % Absolute Neutrophils Absolute Lymphocytes Absolute Monocytes Absolute Eosinophils Absolute Basophils Sodium Potassium Chloride Carbon Dioxide Anion Gap BUN Creatinine Estimated GFR/1.73 m2 Glucose Calcium Magnesium Total Bilirubin AST ALT Alkaline Phosphatase Troponin I < 0.05 Total Protein Albumin Urine Color Yellow Urine Clarity Clear Urine pH 6.0 Ur Specific Theresa 1.020 Urine Protein Negative Urine Ketones Negative Urine Blood Negative Urine Nitrite Negative Urine Bilirubin Negative Urine Urobilinogen 0.2 Ur Leukocyte Esterase Negative Urine Glucose Negative Urine Opiates Screen Urine Methadone Screen Ur Barbiturates Screen Ur Tricyclics Screen Ur Amphetamines Screen U Benzodiazepines Scrn Urine Cocaine Screen Ur THC Screen Ethyl Alcohol Last Vital Signs Temp 37 C 05/16/20 14:58 Pulse 71 05/16/20 16:45 Resp 14 05/16/20 16:50 BP 114/75 05/16/20 16:45 Pulse Ox 95 05/16/20 16:50 COVID-19 Screening Have you,or household,traveled outside [place] in last 14 days?: No Had IN PERSON contact w/suspected or confirmed C-19 person: No
[2020-05-16] MEDS: Pravastatin 20 MG TAB PO (21:51)
[2020-05-16] MEDS: Benztropine 1 MG TAB PO (21:51)
[2020-05-16] MEDS: Acetaminophen 325 MG TAB PO (21:51)
[2020-05-16] MEDS: Heparin 5,000 UNITS/ML VIAL 5000 UNITS SC (21:52)
[2020-05-16] MEDS: QUEtiapine 100 MG TAB PO (22:18)
[2020-05-16 23:21] LABS: Troponin I < 0.05 ng/mL (<0.06)
[2020-05-17] VITALS (10 sets, daily range): BP systolic 121–146; BP diastolic 76–88; PULSE 71–93; RESP 16–19; TEMP 35.9–37.2; O2SAT 92–98
[2020-05-17] MEDS: Ipratropium/Albuterol 4 GM 120 PUFF INH IH ×5 (00:04→21:51)
[2020-05-17] MEDS: Heparin 5,000 UNITS/ML VIAL 5000 UNITS SC ×3 (06:11→21:51)
[2020-05-17 07:10] LABS: HCT 46.9 % (40.0-50.0); HGB 15.6 g/dL (13.5-17.5); Mean Corp. HGB Concentration 33.3 g/dL (32.0-36.0); Mean Corpuscular Volume 93.1 fL (80-95); Mean Platelet Volume 11.4 fL (8.0-11.0); Platelet Count 146 x1000/uL (130-400); RBC 5.04 m/cumm (4.50-6.00); RBC Distribution Width 13.5 % (11.8-14.1); White Blood Cell Count 5.01 k/cumm (4.4-10.8)
[2020-05-17 07:33] LABS: ALT 20 U/L (16-63); AST 16 U/L (15-37); Albumin 3.3 g/dL (3.4-5.0); Alkaline Phosphatase 90 U/L (46-116); Anion Gap 9.8 mmol/L (3-11); BUN 10 mg/dL (7-18); Bilirubin, Total 0.3 mg/dL (0.2-1.0); CO2 24.2 mmol/L (21.0-32.0); CREATININE 0.97 mg/dL (0.70-1.30); Calcium 8.7 mg/dL (8.5-10.1); Chloride 108 mmol/L (98-107); Glucose 83 mg/dL (74-106); Potassium 3.9 mmol/L (3.5-5.1); Sodium 142 mmol/L (136-145); Total Protein 6.3 g/dL (6.4-8.2)
[2020-05-17 08:41] LABS: COVID-19 RT-PCR UVMMC Result Negative (Negative)
[2020-05-17] MEDS: Montelukast 10 MG TAB PO (08:51)
[2020-05-17] MEDS: buPROPion-XL 150 MG TABCR 300 MG PO (08:51)
--- NOTE | 2020-05-17 09:52 | INITIAL_ITS ---
- If Service Date Differs Date of service: 05/17/20 Time of Service: 09:52 Care Management Initial Assess REASON FOR HOSPITALIZATION:: Acute alteration in mental status PAST MEDICAL HISTORY/PAST SURGICAL HISTORY:: Medical History . Agoraphobia (Acute). Biventricular implantable cardioverter-defibrillator (ICD) in situ (Chronic). Mode:DDD, Low rate 60bpm, Atrial lead: medtronic 5076, SN: [id number] 09/27/14; RV lead Medtronic 6935M SN: [id number] 09/27/14; LV lead Medtronic 4396, SN; TRACIE [id number] 09/27/14 (updated 03/11/20). Depression (Chronic). History of alcohol abuse (Resolved). History of tobacco abuse (Resolved). LBBB (left bundle branch block) (Chronic). Nonischemic dilated cardiomyopathy (Chronic). Pacemaker (Acute). Panic anxiety syndrome (Acute). PTSD (post-traumatic stress disorder) (Chronic). Severe chronic obstructive pulmonary disease (Chronic). Systolic and diastolic CHF, chronic (Chronic) PREVIOUS FUNCTIONAL STATUS/SOCIAL/FAMILY SUPPORTS:: William lives alone in a two story house in [place]. He is disabled and spends his time fishing, hunting, and woodworking. William shares he has a few friends he sees occasionally and states he has family nearby but is estranged from them. William reports he is independent with his ADLs, drives, and takes care of his home, but adds it is not as clean as it should be. He states he would love to have someone cook his meals and help clean his house. ADVANCE DIRECTIVES:: none on file CODE STATUS:: Full Code INSURANCE COVERAGE / FINANCIAL ISSUES:: Medicare CURRENT HOME/COMMUNITY SERVICES/EQUIPMENT:: Mechelle Bridges aprn, of [facility] manages William's psych medications and he sees Toña Orosco for individual the rapy. William denies any other home or community services and denies having any medical equipment. PRIMARY CARE PHYSICIAN:: Lorrie ALFARO, [facility] PATIENT/FAMILY EDUCATION NEEDS:: follow up with PCP and discharge plan of care ANTICIPATED BARRIERS TO DISCHARGE:: Discharge plan, limitations, folllow up plan, Ask Me Three
--- NOTE | 2020-05-17 12:20 | CMSP_ITS ---
- If Service Date Differs Date of service: 05/17/20 Time of Service: 12:20 Care Management Safety Plan VOLUNTARY FOR INPATIENT PSYCHIATRIC STABILIZATION. William is appropriate in all interactions since arriving at [facility]; he has demonstrated appropriate coping and communication skills, has articulated his needs and concerns and is engaged during staff interactions. Safety plan has been established with patient, and care team, to adhere to patient goals, identify restrictions based on behavioral status, address nutrition, and determine allowed personal belongings, tools for hygiene and personal care. Determine level of activity including ambulation, level of supervision, visitors, and determine privileges based on behaviors and level of engagement by pt. SAFETY PLAN: 1. Will remain in room under direct supervision of one-on-one staff at all times provided by POLLY, LABORER AMMUNITION ASSEMBLY field inspector. 2. May have regular cups, plates, and silverware with which to eat meals. 4. Follow [facility] Management of the Admitted Behavioral Health Patient policy. 5. May shower with supervision at the discretion of staff 6. Personal belongings at the discretion of nursing staff. 7. May have one support person visit. 8. Phone contact limited to support person. 9. Activity - no limits Due to VOLUNTARY status, if patient wishes to leave [facility], the [facility] automotive worker must be contacted to re-evaluate patient prior to patient exiting the building.
--- NOTE | 2020-05-17 12:32 | PDOC.CMPRO ---
- If Service Date Differs Date of service: 05/17/20 Time of Service: 12:32 Care Management Progress Note William is a 54 year old man with a significant mental health history including PTSD, agorophobia, anxiety and depression. He is well known to [facility] and has a medication provider through the agency. William is being followed by home health and they notified [facility] of their concerns about his general health and well being, altered mental status and apparent non-compliance with his medication regimen. [facility] screener made a home visit and determined that William should be seen in the ED for evaluation. EMS was contacted and William was transported to the ED via ambulance. William remains confused and forgetful today. He was unable to articulate where he is or what happened to bring him to [facility]. William has not been taking his medication at home but was unable to discuss what he has or has not taken. He met with [facility] via Zoom and has agreed to remain at [facility] through the weekend. He is not sure if he is willing to go to the Care Bed on Wednesday. He has been informed by [facility] screener Cori, that if he does not agree to go, he will be made Involuntary and inpatient psychiatric care will be sought. VOLUNTARY FOR INPATIENT PSYCHIATRIC STABILIZATION. William is appropriate in all interactions since arriving at [facility]; he has demonstrated appropriate coping and communication skills, has articulated his needs and concerns and is engaged during staff interactions. Safety plan has been established with patient, and care team, to adhere to patient goals, identify restrictions based on behavioral status, address nutrition, and determine allowed personal belongings, tools for hygiene and personal care. Determine level of activity including ambulation, level of supervision, visitors, and determine privileges based on behaviors and level of engagement by pt. SAFETY PLAN: 1. Will remain in room under direct supervision of one-on-one staff at all times provided by POLLY, PROGRAM MANUFACTURING LEADER adult education instructor. 2. May have regular cups, plates, and silverware with which to eat meals. 3. Follow [facility] Management of the Admitted Behavioral Health Patient policy. 4. May shower with supervision at the discretion of staff 5. Personal belongings at the discretion of nursing staff. 6. May have one support person visit. 7. Phone contact limited to support person. 8. Activity - no limits Due to VOLUNTARY status, if patient wishes to leave [facility], the [facility] carry in worker must be contacted to re-evaluate patient prior to patient exiting the building.
--- NOTE | 2020-05-17 13:16 | PDOC.MHCN ---
Date of service: 05/17/20 Time of Service: 13:16 Mental Health Crisis Note Presenting Issue How did you arrive at the ED and why did you come: William came to the ER yesterday via ambulance after [facility] and [facility] did a well person check. He came due to concerns about a change in mental status. Precipitating Factors William denied SI and HI. He is not showing signs of delusions however, his mental status is not well. Elena has no idea where he is and is not able to recall recent events including what lead to him going to the hospital. Disposition BEHAVIOR: William is cooperative and probably more so than usual with sharing of certain information i.e. his trauma hx. He presents as still confused and unaware of events that brought him to the hospital or that he is even in a hospital. EYE CONTACT: William makes fair eye contact. He is not consistent with looking at anyone which has been noted in the last few times this clinician has seen him. MOOD: Isaacs mood seems confused and anxious. AFFECT: William's affect is consistently flat. APPETITE: William said his appetite has not bee nthe best as he forgets sometimes that there is food being delivered to him and typically only eats one meal a day. SLEEP(trouble falling/staying asleep: William has a long hx of poor sleep. Plan William has agreed to stay at [facility]. It was explained to him that should he want to leave he will be assessed by a [facility] and if needed we will write another EE to hold him as we are very concerned about his ability to take care of himself appropriately right now. I asked him to think about the CARE Bed placement for Wednesday. Signature Clinician's Name/Title: Cori Hull MS, [facility] Emergency Services Clinician
[2020-05-17] MEDS: Albuterol HFA 8 GM 60 PUFF INH IH (14:37)
[2020-05-17] MEDS: Acetaminophen 325 MG TAB PO ×2 (15:56→20:15)
--- NOTE | 2020-05-17 16:49 | W.PM.PROGNOT ---
Date of Service Date of service: 05/17/20 Time of Service: 16:49 Assessment and Plan Assessment and plan (1) Acute alteration in mental status: Status: Acute Assessment and plan: felt to be psychiatric in etiology rather than medical. Does need to have his medications adjusted/monitored and he is not compliant on his own. Agree that CARE bed would be appropriate disposition for Mr Gay. Continue CPSO. Continue seroquel at 200 mg HS (400 mg lowered BP on one of his last admissions) (2) Auditory hallucination: Status: Acute Assessment and plan: Likely part of above process - ?acute psychosis. (3) COPD (chronic obstructive pulmonary disease): Status: Chronic Assessment and plan: At baseline. Continue inhalers. Qualifiers: COPD type: unspecified COPD Qualified Code(s): J44.9 - Chronic obstructive pulmonary disease, unspecified (4) Systolic and diastolic CHF, chronic: Status: Chronic Assessment and plan: Due to NICMO. Appears euvolemic. Has an AICD. Monitor volume status. D/c tele (5) PTSD (post-traumatic stress disorder): Status: Chronic Assessment and plan: As above - will need psychiatric CARE bed placement for observation while medications are adjusted. (6) DVT prophylaxis: Status: Acute Assessment and plan: heparin SC (7) Discharge planning issues: Status: Acute Assessment and plan: Full code Plan to be discharged to CARE bed on Wednesday Subjective Subjective Interval history since last seen: Mr Gay states he does not remember me from his last admission. He denies dizziness, chest pain, reports shortness of breath, denies nausea/vomiting. Reports pain in various joints. Reports emotional pain as well. Met with mental health today and is felt to benefit from going to a care bed on Wednesday, to which the patient agreed. Exam Narrative Exam Narrative: General: Middle-aged male, A&Ox3, appears sad, somewhat slow to respond to my questions, appears to take a long time processing answers HEENT: EOMI, MMM Heart: RRR, no m/r/g Lungs: coarse breath sounds B - diminished Abdomen: soft, nontender, nondistended Extremities: no e/c/c BLE's Objective Objective Clinical Data: Abnormal lab results 05/16/20 05/17/20 05/17/20 Range/Units 18:15 06:15 06:15 MPV 11.4 H (8.0-11.0) fL Chloride 108 H (98-107) mmol/L Total Protein 6.3 L (6.4-8.2) g/dL Albumin 3.3 L (3.4-5.0) g/dL Urine Opiates Screen Positive A (Negative) Ur Tricyclics Screen Positive A (Negative) U Benzodiazepines Scrn Positive A (Negative) Vital Signs Temperature 37.2 C 05/17/20 15:28 Temperature Source Tympanic 05/17/20 15:28 Pulse 83 05/17/20 15:28 Pulse Rhythm Regular 05/17/20 16:06 Pulse 71 05/16/20 20:31 Respiratory Rate 18 05/17/20 15:28 Respiratory Effort Non-Labored 05/17/20 16:06 Respiratory Depth Normal 05/17/20 16:06 Respiratory Pattern Normal 05/17/20 16:06 Blood Pressure 144/83 H 05/17/20 15:28 Blood Pressure Mean 95 05/16/20 20:30 Pulse Oximetry 93 L 05/17/20 15:28 Oxygen Delivery Method Room Air 05/17/20 15:28 Oxygen Flow Rate 0 05/17/20 15:28 Pain Level 8 05/17/20 15:56 Comment pt unable to give number for pain 05/16/20 14:58 Intake & Output 05/16/20 05/17/20 05/17/20 23:59 11:59 23:59 Intake Total 1101 / 1101 800 / 800 Balance 1101 / 1101 800 / 800 Weight 77.1 kg 73.7 kg Intake: IV 1101 / 1101 Oral 800 / 800 Other: Urine Appearance Clear Clear Comment voided in bathroom, urine not viewed Pt reported that he urinated in the toliet independently. Per pt no urinary concerns. Stool Characteristics Formed Voiding Methods Toilet Toilet Laboratory Results WBC 5.01 k/cumm (4.4-10.8) 05/17/20 06:15 RBC 5.04 m/cumm (4.50-6.00) 05/17/20 06:15 Hgb 15.6 g/dL (13.5-17.5) 05/17/20 06:15 Hct 46.9 % (40.0-50.0) 05/17/20 06:15 MCV 93.1 fL (80-95) 05/17/20 06:15 MCH 31.0 pg (27.0-33.0) 05/17/20 06:15 MCHC 33.3 g/dL (32.0-36.0) 05/17/20 06:15 RDW 13.5 % (11.8-14.1) 05/17/20 06:15 Plt Count 146 x1000/uL (130-400) 05/17/20 06:15 MPV 11.4 fL (8.0-11.0) H 05/17/20 06:15 Immature Gran % 0.3 % 05/16/20 15:20 Neutrophils % 71.8 05/16/20 15:20 Lymphocytes % 15.4 05/16/20 15:20 Monocytes % 10.2 05/16/20 15:20 Eosinophils % 1.8 05/16/20 15:20 Basophils % 0.5 05/16/20 15:20 Absolute Neutrophils 4.70 k/cumm (1.2-6.7) 05/16/20 15:20 Absolute Lymphocytes 1.01 k/cumm (1.2-3.4) L 05/16/20 15:20 Absolute Monocytes 0.67 k/cumm (0.11-0.7) 05/16/20 15:20 Absolute Eosinophils 0.12 k/cumm (0.0-0.7) 05/16/20 15:20 Absolute Basophils 0.03 k/cumm (0.0-0.2) 05/16/20 15:20 Sodium 142 mmol/L (136-145) 05/17/20 06:15 Potassium 3.9 mmol/L (3.5-5.1) 05/17/20 06:15 Chloride 108 mmol/L (98-107) H 05/17/20 06:15 Carbon Dioxide 24.2 mmol/L (21.0-32.0) 05/17/20 06:15 Anion Gap 9.8 mmol/L (3-11) 05/17/20 06:15 BUN 10 mg/dL (7-18) 05/17/20 06:15 Creatinine 0.97 mg/dL (0.70-1.30) 05/17/20 06:15 Estimated GFR/1.73 m2 >= 60.00 (mL/min/1.73m2) 05/17/20 06:15 Glucose 83 mg/dL (74-106) 05/17/20 06:15 Calcium 8.7 mg/dL (8.5-10.1) 05/17/20 06:15 Magnesium 2.0 mg/dL (1.8-2.4) 05/16/20 15:20 Total Bilirubin 0.3 mg/dL (0.2-1.0) 05/17/20 06:15 AST 16 U/L (15-37) 05/17/20 06:15 ALT 20 U/L (16-63) 05/17/20 06:15 Alkaline Phosphatase 90 U/L (46-116) 05/17/20 06:15 Troponin I < 0.05 ng/mL (<0.06) 05/16/20 22:45 Total Protein 6.3 g/dL (6.4-8.2) L 05/17/20 06:15 Albumin 3.3 g/dL (3.4-5.0) L 05/17/20 06:15 TSH 1.90 uIU/mL (0.36-3.74) 05/16/20 18:45 Urine Color Yellow (Yellow) 05/16/20 18:15 Urine Clarity Clear (Clear) 05/16/20 18:15 Urine pH 6.0 (5-8) 05/16/20 18:15 Ur Specific [place] 1.020 (1.005-1.025) 05/16/20 18:15 Urine Protein Negative mg/dL (Negative) 05/16/20 18:15 Urine Ketones Negative mg/dL (Negative) 05/16/20 18:15 Urine Blood Negative (Negative) 05/16/20 18:15 Urine Nitrite Negative (Negative) 05/16/20 18:15 Urine Bilirubin Negative (Negative) 05/16/20 18:15 Urine Urobilinogen 0.2 EU/dL (Up TO 0.2) 05/16/20 18:15 Ur Leukocyte Esterase Negative (Negative) 05/16/20 18:15 Urine Glucose Negative mg/dL (Negative) 05/16/20 18:15 Urine Opiates Screen Positive (Negative) A 05/16/20 18:15 Urine Methadone Screen Negative (Negative) 05/16/20 18:15 Ur Barbiturates Screen Negative (Negative) 05/16/20 18:15 Ur Tricyclics Screen Positive (Negative) A 05/16/20 18:15 Ur Amphetamines Screen Negative (Negative) 05/16/20 18:15 U Benzodiazepines Scrn Positive (Negative) A 05/16/20 18:15 Urine Cocaine Screen Negative (Negative) 05/16/20 18:15 Ur THC Screen Negative (Negative) 05/16/20 18:15 Ethyl Alcohol < 3.0 mg/dL (<3) 05/16/20 15:20 COVID-19 PCR Negative (Negative) 05/16/20 17:42 Nasopharyn COVID-19 PCR Not Applicable 05/16/20 17:42 Ref Test [facility] 05/16/20 17:42
[2020-05-17] MEDS: Gabapentin 300 MG CAP PO (20:15)
[2020-05-17] MEDS: QUEtiapine 100 MG TAB 200 MG PO (21:50)
[2020-05-17] MEDS: Benztropine 1 MG TAB PO (21:50)
[2020-05-17] MEDS: Pravastatin 20 MG TAB PO (21:50)
--- NOTE | 2020-05-18 | DI.RAD_ITS ---
EXAM: XR PORTABLE CHEST AP CLINICAL HISTORY: fever TECHNIQUE: 2D digital imaging was performed. COMPARISON: CR,XR XR CHEST 2V PA LATERAL from 05/16/2020 FINDINGS: LUNGS: Minimal linear scarring or atelectasis. No pleural abnormality seen. HEART: Normal. MEDIASTINUM: Normal. OTHER FINDINGS: Pacemaker IMPRESSION: No acute pulmonary findings. DATA REPOSITORY: RADIATION DOSE DELIVERED:
[2020-05-18] MEDS: Acetaminophen 325 MG TAB PO ×4 (00:16→23:11)
[2020-05-18 03:02] VITALS: BP 116/75; PULSE 78; RESP 18; TEMP 36.7; O2SAT 92
[2020-05-18] MEDS: Ipratropium/Albuterol 4 GM 120 PUFF INH IH ×4 (03:42→21:07)
[2020-05-18] MEDS: Heparin 5,000 UNITS/ML VIAL 5000 UNITS SC ×2 (05:43→13:17)
[2020-05-18 06:56] VITALS: BP 126/75; PULSE 83; RESP 18; TEMP 36.8; O2SAT 93
[2020-05-18] MEDS: Montelukast 10 MG TAB PO (08:22)
[2020-05-18] MEDS: Gabapentin 300 MG CAP PO ×3 (08:22→19:15)
[2020-05-18] MEDS: buPROPion-XL 150 MG TABCR 300 MG PO (08:22)
[2020-05-18] MEDS: clonazePAM 1 MG TAB PO ×4 (08:28→22:15)
[2020-05-18] MEDS: Albuterol HFA 8 GM 60 PUFF INH IH ×2 (09:53→13:59)
[2020-05-18 10:36] VITALS: BP 117/76; PULSE 98; RESP 19; TEMP 37; O2SAT 90
--- NOTE | 2020-05-18 14:47 | PGE_ITS ---
Date of Service Date of service: 05/18/20 Time of Service: 14:48 Assessment and Plan Assessment and plan (1) Acute alteration in mental status: Status: Resolved Assessment and plan: Acute alteration in his mental status on admission was felt to be secondary to self-medication of his psychiatric medications as well as his pain medications. As per Dr. Velasquez's admission H&P patient gave a conflicting story about his medication list and apparently his drug screen was positive for opioids for which he stated he was prescribed Vicodin recently by a new PCP. Patient history of PTSD and [place] phobia as well as sleep disorder. He insisted on taking his usual dose of Seroquel however his dose has been reduced to 200 mg nightly from a previous dose of 4 mg nightly. Furthermore his gabapentin dose has been reduced to 300 mg 3 times daily from a previous dose of 600 mg 3 times daily. His Klonopin has been discontinued. He is exhibited no auditory or visual hallucinations and has not been expressing any homicidal or suicidal ideation. I agree with Dr. Lynne's plan as well as care management plan to transition him over to a transition care bed where he can be closely watched by mental health personnel. This is expected to take place on Wednesday. (2) Auditory hallucination: Status: Acute Assessment and plan: Likely part of above process - ?acute psychosis. Currently patient's not exhibiting any acute psychosis (3) COPD (chronic obstructive pulmonary disease): Status: Chronic Assessment and plan: At baseline. Continue inhalers. Qualifiers: COPD type: unspecified COPD Qualified Code(s): J44.9 - Chronic obstructive pulmonary disease, unspecified (4) Systolic and diastolic CHF, chronic: Status: Chronic Assessment and plan: History of nonischemic cardiomyopathy with his last echo performed at [facility] on March 12, 2020 and demonstrated mild LV dysfunction with an ejection fraction of 45 to 50% with no wall motion abnormalities. Right ventricular size and function was normal. There is no hemodynamically significant valvular lesions. He has mild elevation of his RVSP at 36. He has an AICD in place. I have ordered interrogation of his pacemaker/AICD. He has had no arrhythmias during this hospitalization and his telemetry was discontinued yesterday. (5) PTSD (post-traumatic stress disorder): Status: Chronic Assessment and plan: As above - will need psychiatric CARE bed placement for observation while medications are adjusted. (6) DVT prophylaxis: Status: Acute Assessment and plan: DC unfractionated heparin and replaced with enoxaparin (7) Discharge planning issues: Status: Acute Assessment and plan: Full code Plan to be discharged to CARE bed on Wednesday Objective Objective Clinical Data: Vital Signs Temperature 37 C 05/18/20 10:36 Temperature Source Tympanic 05/18/20 10:36 Pulse 98 H 05/18/20 10:36 Pulse Rhythm Regular 05/18/20 08:41 Pulse 71 05/16/20 20:31 Respiratory Rate 19 05/18/20 10:36 Respiratory Effort Non-Labored 05/18/20 08:41 Respiratory Depth Normal 05/18/20 08:41 Respiratory Pattern Normal 05/18/20 08:41 Blood Pressure 117/76 05/18/20 10:36 Blood Pressure Mean 95 05/16/20 20:30 Pulse Oximetry 90 L 05/18/20 10:36 Oxygen Delivery Method Room Air 05/18/20 10:36 Oxygen Flow Rate 0 05/18/20 10:36 Pain Level 7 05/18/20 10:36 Comment pt unable to give number for pain 05/16/20 14:58 Intake & Output 05/17/20 05/18/20 05/18/20 23:59 11:59 23:59 Intake Total 1040 / 1040 500 / 500 Balance 1040 / 1040 500 / 500 Weight 72 kg Intake: Oral 1040 / 1040 500 / 500 Other: Urine Appearance Clear Clear Comment Pt reported that he urinated in the toliet independently. Per pt no urinary concerns. Voiding Methods Toilet Toilet Laboratory Results WBC 5.01 k/cumm (4.4-10.8) 05/17/20 06:15 RBC 5.04 m/cumm (4.50-6.00) 05/17/20 06:15 Hgb 15.6 g/dL (13.5-17.5) 05/17/20 06:15 Hct 46.9 % (40.0-50.0) 05/17/20 06:15 MCV 93.1 fL (80-95) 05/17/20 06:15 MCH 31.0 pg (27.0-33.0) 05/17/20 06:15 MCHC 33.3 g/dL (32.0-36.0) 05/17/20 06:15 RDW 13.5 % (11.8-14.1) 05/17/20 06:15 Plt Count 146 x1000/uL (130-400) 05/17/20 06:15 MPV 11.4 fL (8.0-11.0) H 05/17/20 06:15 Immature Gran % 0.3 % 05/16/20 15:20 Neutrophils % 71.8 05/16/20 15:20 Lymphocytes % 15.4 05/16/20 15:20 Monocytes % 10.2 05/16/20 15:20 Eosinophils % 1.8 05/16/20 15:20 Basophils % 0.5 05/16/20 15:20 Absolute Neutrophils 4.70 k/cumm (1.2-6.7) 05/16/20 15:20 Absolute Lymphocytes 1.01 k/cumm (1.2-3.4) L 05/16/20 15:20 Absolute Monocytes 0.67 k/cumm (0.11-0.7) 05/16/20 15:20 Absolute Eosinophils 0.12 k/cumm (0.0-0.7) 05/16/20 15:20 Absolute Basophils 0.03 k/cumm (0.0-0.2) 05/16/20 15:20 Sodium 142 mmol/L (136-145) 05/17/20 06:15 Potassium 3.9 mmol/L (3.5-5.1) 05/17/20 06:15 Chloride 108 mmol/L (98-107) H 05/17/20 06:15 Carbon Dioxide 24.2 mmol/L (21.0-32.0) 05/17/20 06:15 Anion Gap 9.8 mmol/L (3-11) 05/17/20 06:15 BUN 10 mg/dL (7-18) 05/17/20 06:15 Creatinine 0.97 mg/dL (0.70-1.30) 05/17/20 06:15 Estimated GFR/1.73 m2 >= 60.00 (mL/min/1.73m2) 05/17/20 06:15 Glucose 83 mg/dL (74-106) 05/17/20 06:15 Calcium 8.7 mg/dL (8.5-10.1) 05/17/20 06:15 Magnesium 2.0 mg/dL (1.8-2.4) 05/16/20 15:20 Total Bilirubin 0.3 mg/dL (0.2-1.0) 05/17/20 06:15 AST 16 U/L (15-37) 05/17/20 06:15 ALT 20 U/L (16-63) 05/17/20 06:15 Alkaline Phosphatase 90 U/L (46-116) 05/17/20 06:15 Troponin I < 0.05 ng/mL (<0.06) 05/16/20 22:45 Total Protein 6.3 g/dL (6.4-8.2) L 05/17/20 06:15 Albumin 3.3 g/dL (3.4-5.0) L 05/17/20 06:15 TSH 1.90 uIU/mL (0.36-3.74) 05/16/20 18:45 Urine Color Yellow (Yellow) 05/16/20 18:15 Urine Clarity Clear (Clear) 05/16/20 18:15 Urine pH 6.0 (5-8) 05/16/20 18:15 Ur Specific [place] 1.020 (1.005-1.025) 05/16/20 18:15 Urine Protein Negative mg/dL (Negative) 05/16/20 18:15 Urine Ketones Negative mg/dL (Negative) 05/16/20 18:15 Urine Blood Negative (Negative) 05/16/20 18:15 Urine Nitrite Negative (Negative) 05/16/20 18:15 Urine Bilirubin Negative (Negative) 05/16/20 18:15 Urine Urobilinogen 0.2 EU/dL (Up TO 0.2) 05/16/20 18:15 Ur Leukocyte Esterase Negative (Negative) 05/16/20 18:15 Urine Glucose Negative mg/dL (Negative) 05/16/20 18:15 Urine Opiates Screen Positive (Negative) A 05/16/20 18:15 Urine Methadone Screen Negative (Negative) 05/16/20 18:15 Ur Barbiturates Screen Negative (Negative) 05/16/20 18:15 Ur Tricyclics Screen Positive (Negative) A 05/16/20 18:15 Ur Amphetamines Screen Negative (Negative) 05/16/20 18:15 U Benzodiazepines Scrn Positive (Negative) A 05/16/20 18:15 Urine Cocaine Screen Negative (Negative) 05/16/20 18:15 Ur THC Screen Negative (Negative) 05/16/20 18:15 Ethyl Alcohol < 3.0 mg/dL (<3) 05/16/20 15:20 COVID-19 PCR Negative (Negative) 05/16/20 17:42 Nasopharyn COVID-19 PCR Not Applicable 05/16/20 17:42 Ref Test Perform Site [facility] lab 05/16/20 17:42
[2020-05-18 15:00] VITALS: BP 148/77; PULSE 95; RESP 18; TEMP 37.5; O2SAT 93
--- NOTE | 2020-05-18 15:27 | PDOC.CMPRO ---
- If Service Date Differs Date of service: 05/18/20 Time of Service: 15:27 Care Management Progress Note S/O: No change in plan. William is improved and has had no arrhythmias during this hospitalization. His altered mental status has resolved since his admission to the hospital. It is suspected that the alteration in mental status was secondary to patient not taking his psych and pain medications as prescribed. William has a history of PTSD, agoraphobia, anxiety, depression, and sleep disorder. William sees Toña Orosco for individual therapy and Mechelle Bridges aprn, of [facility] manages his psychiatric medications. CM will continue to follow. A: William is a 54 year old male admitted to [facility] on 05/16/2020 for altered mental status, polysubstance abuse, and cardiomyopathy. P: No change in plan. William will be discharged to the [facility] Care Bed on Wednesday if medically cleared by provider. He will resume services through [facility] and his local provider upon discharge. CM will continue to follow.
[2020-05-18 19:22] VITALS: BP 126/79; PULSE 109; RESP 17; TEMP 38.6; O2SAT 96
[2020-05-18] MEDS: Benztropine 1 MG TAB PO (21:07)
[2020-05-18] MEDS: QUEtiapine 100 MG TAB 200 MG PO (21:07)
[2020-05-18] MEDS: Pravastatin 20 MG TAB PO (21:07)
[2020-05-18 21:57] LABS: Abs Immature Grans 0.03 k/cumm (0.0-0.09); Absolute Basophil Count 0.02 k/cumm (0.0-0.2); Absolute Eosinophil Count 0.03 k/cumm (0.0-0.7); Absolute Lymphocyte Count 0.68 k/cumm (1.2-3.4); Absolute Neutrophil Count 13.05 k/cumm (1.2-6.7); Basophils % 0.1; Eosinophils % 0.2; HGB 16.3 g/dL (13.5-17.5); Immature Grans % 0.2 %; Lymphocytes % 4.5; Mean Corpuscular Volume 91.3 fL (80-95); Mean Platelet Volume 11.5 fL (8.0-11.0); Monocytes % 9.2; Neutrophils % 85.8; Platelet Count 152 x1000/uL (130-400); RBC 5.26 m/cumm (4.50-6.00); RBC Distribution Width 13.4 % (11.8-14.1); White Blood Cell Count 15.21 k/cumm (4.4-10.8)
--- NOTE | 2020-05-18 22:13 | DI.VRAD_ITS ---
PROCEDURE INFORMATION: Exam: XR Chest, 1 View Exam date and time: 05/18/2020 10:05 PM Age: 54 years old Clinical indication: Fever; Prior surgery; Surgery date: 6+ months TECHNIQUE: Imaging protocol: XR of the chest Views: 1 view. COMPARISON: CR XR CHEST 2V PA LATERAL 05/16/2020 4:38 PM FINDINGS: Tubes, catheters and devices: Left chest wall pacing device. Lungs: No acute pulmonary infiltrate. Pleural space: Unremarkable. No pleural effusion. No pneumothorax. Heart/Mediastinum: Unremarkable. No cardiomegaly. Bones/joints: Unremarkable. IMPRESSION: No acute finding. Dictated and Authenticated by: Jaime Tolliver MD. Ordering:CLAUDIA Torrez MD
[2020-05-18 22:26] LABS: Procalcitonin 0.1 ng/mL
[2020-05-18 22:45] LABS: Bilirubin Negative (Negative); Blood Moderate (Negative); Clarity Cloudy (Clear); Glucose Negative (Negative); Ketones Negative (Negative); Leukocyte Esterase Moderate (Negative); Nitrite Positive (Negative); Urobilinogen 0.2 EU/dL (Up TO 0.2); pH 7.5 (5-8)
[2020-05-18 23:01] LABS: Bacteria Many HPF (Negative); C & S Indicated? C&S Done As Ordered; Casts Negative LPF (Negative); Crystals Negative HPF (Negative); Epithelial Cells Rare HPF (Negative); Mucus Negative (Negative); WBC 20-50 HPF (0-5)
[2020-05-18 23:16] VITALS: BP 126/79; PULSE 109; RESP 18; TEMP 38.1; O2SAT 94
[2020-05-19] VITALS (7 sets, daily range): BP systolic 106–114; BP diastolic 65–74; PULSE 86–99; RESP 16–18; TEMP 36.6–37.9; O2SAT 92–95
[2020-05-19] MEDS: cefTRIAXone 1 GM/50 ML BAG IVPB (01:32)
[2020-05-19] MEDS: Normal Saline Flush 10 ML SYR IVP (01:32)
[2020-05-19] MEDS: Ipratropium/Albuterol 4 GM 120 PUFF INH IH ×4 (03:57→22:37)
[2020-05-19] MEDS: Acetaminophen 325 MG TAB PO ×4 (06:15→22:36)
[2020-05-19 07:05] LABS: HCT 47.3 % (40.0-50.0); HGB 16.1 g/dL (13.5-17.5); Mean Corpuscular Hemoglobin 31.3 pg (27.0-33.0); Mean Platelet Volume 11.5 fL (8.0-11.0); Platelet Count 142 x1000/uL (130-400); RBC 5.14 m/cumm (4.50-6.00); RBC Distribution Width 13.6 % (11.8-14.1); White Blood Cell Count 13.44 k/cumm (4.4-10.8)
[2020-05-19] MEDS: Enoxaparin 40 MG/0.4 ML SYR SC (07:37)
[2020-05-19] MEDS: buPROPion-XL 150 MG TABCR 300 MG PO (07:37)
[2020-05-19] MEDS: Gabapentin 300 MG CAP PO ×3 (07:37→20:07)
[2020-05-19] MEDS: clonazePAM 1 MG TAB PO ×2 (07:37→13:36)
[2020-05-19] MEDS: Montelukast 10 MG TAB PO (07:37)
--- NOTE | 2020-05-19 10:52 | W.PM.PROGNOT ---
Date of Service Date of service: 05/19/20 Time of Service: 10:58 Assessment and Plan Assessment and plan (1) UTI (urinary tract infection): Status: Acute Assessment and plan: Continue Rocephin 1 g IV daily pending results of his urine and blood cultures. If blood culture is negative and renal ultrasound shows no evidence for obstructive uropathy and no evidence for pyelonephritis and will switch him over to oral antibiotics and he can complete treatment as an outpatient Qualifiers: Hematuria presence: without hematuria Urinary tract infection type: site unspecified Qualified Code(s): N39.0 - Urinary tract infection, site not specified (2) Acute alteration in mental status: Status: Resolved Assessment and plan: His initial presentation of alteration of his mental status was felt to be secondary to overmedication of his psychiatric and pain medications. This is since been adjusted with a decrease in his gabapentin and Seroquel. His clonazepam is been discontinued. He remains on his Wellbutrin. (3) Auditory hallucination: Status: Acute Assessment and plan: Likely part of above process - ?acute psychosis. Currently patient's not exhibiting any acute psychosis (4) COPD (chronic obstructive pulmonary disease): Status: Chronic Assessment and plan: At baseline. Continue inhalers. Qualifiers: COPD type: unspecified COPD Qualified Code(s): J44.9 - Chronic obstructive pulmonary disease, unspecified (5) Systolic and diastolic CHF, chronic: Status: Chronic Assessment and plan: History of nonischemic cardiomyopathy with his last echo performed at [facility] on March 12, 2020 and demonstrated mild LV dysfunction with an ejection fraction of 45 to 50% with no wall motion abnormalities. Right ventricular size and function was normal. There is no hemodynamically significant valvular lesions. He has mild elevation of his RVSP at 36. He has an AICD in place. I have ordered interrogation of his pacemaker/AICD. He has had no arrhythmias during this hospitalization and his telemetry was discontinued couple days ago.. (6) PTSD (post-traumatic stress disorder): Status: Chronic Assessment and plan: As above - will need psychiatric CARE bed placement for observation while medications are adjusted. (7) DVT prophylaxis: Status: Acute Assessment and plan: DC unfractionated heparin and replaced with enoxaparin (8) Discharge planning issues: Status: Acute Assessment and plan: Full code Plan to be discharged to CARE bed on Wednesday or Wednesday depending on the results of his blood and urine cultures. Subjective Subjective Interval history since last seen: Patient had fever 38.[address] Lynne obtained a urinalysis which was suspicious for UTI as it demonstrated nitrites, leukocyte Estrace with 20-50 WBCs per high-powered field, rare epithelial cells and many bacteria. Furthermore his CBC demonstrated elevated white count of 15,000 which is now down to 13,000 today. She obtained a urine and blood cultures and start him on Rocephin 1 g IV every 24 hours. This morning Mr. Fulton has been sleeping a lot through the day but awakens readily. He denies any suprapubic tenderness or flank pain. No nausea or vomiting or abdominal pain. He denies any dysuria or hematuria. Renal ultrasound is been ordered for tomorrow. Depending on the results of the renal ultrasound and the urine cultures and blood cultures this may delay his transfer to a care bed. Exam Narrative Exam Narrative: Middle-age male lying in bed sleeping awakens easily. In no acute distress. Denies any pain. Abdomen is soft nontender nondistended normal active bowel sounds. Negative flank pain with firm palpation and percussion. No suprapubic tenderness. Objective Objective Clinical Data: Abnormal lab results 05/18/20 05/18/20 05/19/20 Range/Units 21:35 22:00 06:20 WBC 15.21 H 13.44 H (4.4-10.8) k/cumm MPV 11.5 H 11.5 H (8.0-11.0) fL Absolute Neutrophils 13.05 H (1.2-6.7) k/cumm Absolute Lymphocytes 0.68 L (1.2-3.4) k/cumm Absolute Monocytes 1.40 H (0.11-0.7) k/cumm Urine Blood Moderate H (Negative) Urine Nitrite Positive H (Negative) Ur Leukocyte Esterase Moderate H (Negative) Urine RBC 3-5 H (0-2) HPF Urine WBC 20-50 H (0-5) HPF Vital Signs Temperature 36.5 C 05/19/20 07:30 Temperature Source Tympanic 05/19/20 07:30 Pulse 95 H 05/19/20 07:30 Pulse Rhythm Regular 05/19/20 08:55 Pulse 71 05/16/20 20:31 Respiratory Rate 17 05/19/20 07:30 Respiratory Effort Non-Labored 05/19/20 08:55 Respiratory Depth Normal 05/19/20 08:55 Respiratory Pattern Normal 05/19/20 08:55 Blood Pressure 110/68 05/19/20 07:30 Blood Pressure Mean 95 05/16/20 20:30 Pulse Oximetry 94 L 05/19/20 07:30 Oxygen Delivery Method Room Air 05/19/20 07:30 Oxygen Flow Rate 0 05/19/20 07:30 Pain Level 8 05/19/20 07:30 Comment 05/19/20 03:55 Intake & Output 05/18/20 05/18/20 05/19/20 11:59 23:59 11:59 Intake Total 500 / 500 540 / 540 Output Total 180 / 180 741 / 741 Balance 500 / 320 -180 / 320 -201 / -201 Weight 72 kg 71.8 kg Intake: IV 50 / 50 Oral 500 / 500 490 / 490 Output: Urine 180 / 180 200 / 200 Post Void Residual 541 / 541 Other: Urine Color Yellow Urine Appearance Clear Clear Clear Urine Odor Normal Comment pt sat on toilet to void, urine not measured Stool Size Moderate Stool Characteristics Soft Formed Brown Voiding Methods Toilet Toilet Laboratory Results WBC 13.44 k/cumm (4.4-10.8) H 05/19/20 06:20 RBC 5.14 m/cumm (4.50-6.00) 05/19/20 06:20 Hgb 16.1 g/dL (13.5-17.5) 05/19/20 06:20 Hct 47.3 % (40.0-50.0) 05/19/20 06:20 MCV 92.0 fL (80-95) 05/19/20 06:20 MCH 31.3 pg (27.0-33.0) 05/19/20 06:20 MCHC 34.0 g/dL (32.0-36.0) 05/19/20 06:20 RDW 13.6 % (11.8-14.1) 05/19/20 06:20 Plt Count 142 x1000/uL (130-400) 05/19/20 06:20 MPV 11.5 fL (8.0-11.0) H 05/19/20 06:20 Immature Gran % 0.2 % 05/18/20 21:35 Neutrophils % 85.8 05/18/20 21:35 Lymphocytes % 4.5 05/18/20 21:35 Monocytes % 9.2 05/18/20 21:35 Eosinophils % 0.2 05/18/20 21:35 Basophils % 0.1 05/18/20 21:35 Absolute Neutrophils 13.05 k/cumm (1.2-6.7) H 05/18/20 21:35 Absolute Lymphocytes 0.68 k/cumm (1.2-3.4) L 05/18/20 21:35 Absolute Monocytes 1.40 k/cumm (0.11-0.7) H 05/18/20 21:35 Absolute Eosinophils 0.03 k/cumm (0.0-0.7) 05/18/20 21:35 Absolute Basophils 0.02 k/cumm (0.0-0.2) 05/18/20 21:35 Sodium 142 mmol/L (136-145) 05/17/20 06:15 Potassium 3.9 mmol/L (3.5-5.1) 05/17/20 06:15 Chloride 108 mmol/L (98-107) H 05/17/20 06:15 Carbon Dioxide 24.2 mmol/L (21.0-32.0) 05/17/20 06:15 Anion Gap 9.8 mmol/L (3-11) 05/17/20 06:15 BUN 10 mg/dL (7-18) 05/17/20 06:15 Creatinine 0.97 mg/dL (0.70-1.30) 05/17/20 06:15 Estimated GFR/1.73 m2 >= 60.00 (mL/min/1.73m2) 05/17/20 06:15 Glucose 83 mg/dL (74-106) 05/17/20 06:15 Calcium 8.7 mg/dL (8.5-10.1) 05/17/20 06:15 Magnesium 2.0 mg/dL (1.8-2.4) 05/16/20 15:20 Total Bilirubin 0.3 mg/dL (0.2-1.0) 05/17/20 06:15 AST 16 U/L (15-37) 05/17/20 06:15 ALT 20 U/L (16-63) 05/17/20 06:15 Alkaline Phosphatase 90 U/L (46-116) 05/17/20 06:15 Troponin I < 0.05 ng/mL (<0.06) 05/16/20 22:45 Total Protein 6.3 g/dL (6.4-8.2) L 05/17/20 06:15 Albumin 3.3 g/dL (3.4-5.0) L 05/17/20 06:15 Procalcitonin 0.1 ng/mL 05/18/20 21:35 TSH 1.90 uIU/mL (0.36-3.74) 05/16/20 18:45 Urine Color Yellow (Yellow) 05/18/20 22:00 Urine Clarity Cloudy (Clear) 05/18/20 22:00 Urine pH 7.5 (5-8) 05/18/20 22:00 Ur Specific [place] 1.020 (1.005-1.025) 05/18/20 22:00 Urine Protein Negative mg/dL (Negative) 05/18/20 22:00 Urine Ketones Negative mg/dL (Negative) 05/18/20 22:00 Urine Blood Moderate (Negative) H 05/18/20 22:00 Urine Nitrite Positive (Negative) H 05/18/20 22:00 Urine Bilirubin Negative (Negative) 05/18/20 22:00 Urine Urobilinogen 0.2 EU/dL (Up TO 0.2) 05/18/20 22:00 Ur Leukocyte Esterase Moderate (Negative) H 05/18/20 22:00 Urine RBC 3-5 HPF (0-2) H 05/18/20 22:00 Urine WBC 20-50 HPF (0-5) H 05/18/20 22:00 Ur Epithelial Cells Rare HPF (Negative) 05/18/20 22:00 Urine Crystals Negative HPF (Negative) 05/18/20 22:00 Urine Bacteria Many HPF (Negative) 05/18/20 22:00 Urine Casts Negative LPF (Negative) 05/18/20 22:00 Urine Mucus Negative (Negative) 05/18/20 22:00 Ur Culture Indicated? C&s done as ordered 05/18/20 22:00 Urine Glucose Negative mg/dL (Negative) 05/18/20 22:00 Urine Opiates Screen Positive (Negative) A 05/16/20 18:15 Urine Methadone Screen Negative (Negative) 05/16/20 18:15 Ur Barbiturates Screen Negative (Negative) 05/16/20 18:15 Ur Tricyclics Screen Positive (Negative) A 05/16/20 18:15 Ur Amphetamines Screen Negative (Negative) 05/16/20 18:15 U Benzodiazepines Scrn Positive (Negative) A 05/16/20 18:15 Urine Cocaine Screen Negative (Negative) 05/16/20 18:15 Ur THC Screen Negative (Negative) 05/16/20 18:15 Ethyl Alcohol < 3.0 mg/dL (<3) 05/16/20 15:20 COVID-19 PCR Negative (Negative) 05/16/20 17:42 Nasopharyn COVID-19 PCR Not Applicable 05/16/20 17:42 Ref Test Perform Site [facility] lab 05/16/20 17:42
--- NOTE | 2020-05-19 11:47 | PHA.REVIEW ---
Pharmacy Admission Review - Admission Clinical Review (Last Reviewed 05/16/20 @ 20:29 by Hao Velasquez) UTI (urinary tract infection) (Acute) Discharge planning issues (Acute) Auditory hallucination (Acute) DVT prophylaxis (Acute) citalopram Allergy (Unverified 05/01/20 22:36) oxycodone HCl [From Percocet] Adverse Reaction (Unverified 05/01/20 22:36) Addiction Height 5 ft 7 in Weight 71.8 kg - Renal Dosing Renal Dosing: BUN 10 mg/dL (7-18) 05/17/20 06:15 Creatinine 0.97 mg/dL (0.70-1.30) 05/17/20 06:15 Medications needing adjustments: Reviewed (crcl ~79ml/min) - Anticoagulation Anticoagulation: Hgb 16.1 g/dL (13.5-17.5) 05/19/20 06:20 Hct 47.3 % (40.0-50.0) 05/19/20 06:20 Plt Count 142 x1000/uL (130-400) 05/19/20 06:20 Creatinine 0.97 mg/dL (0.70-1.30) 05/17/20 06:15 DVT Prohphylaxis: Reviewed Medications: Enoxaparin Therapeutic Anticoagulation: N/A - Relevant Labs Sodium 142 mmol/L (136-145) 05/17/20 06:15 Potassium 3.9 mmol/L (3.5-5.1) 05/17/20 06:15 Chloride 108 mmol/L (98-107) H 05/17/20 06:15 Magnesium 2.0 mg/dL (1.8-2.4) 05/16/20 15:20 Electrolytes, C-Reactive P, ESR: Reviewed - DM Control DM Control: Glucose 83 mg/dL (74-106) 05/17/20 06:15 Insulin Dosing: N/A - Heart Failure/DE Heart Failure/DE: Troponin I < 0.05 ng/mL (<0.06) 05/16/20 22:45 - BP Control BP Control: Blood Pressure 109/72 Blood Pressure 110/68 Blood Pressure 106/67 If elevated: N/A - Qtc Review If Elevated: N/A - Home Meds Home Med List reviewed: Reviewed (quetiapine and gabapentin doses decreased which has helped pts mentation, clonazepam has been d/c'd) - Current meds Current Medication Order Review: Reviewed (UC and BC pending) - Comments Comments/Follow Ups: follow for UC and BC culture results. may switch to PO antibiotics and discharge
--- NOTE | 2020-05-19 14:09 | PDOC.CMPRO ---
- If Service Date Differs Date of service: 05/19/20 Time of Service: 14:09 Care Management Progress Note S/O: William was febrile overnight. He was started on Rocephin 1 g IV daily pending results of urine and blood cultures. A renal ultrasound has been ordered for tomorrow morning, as has an interrogation of his pacemaker/AICD. CM will continue to follow. A: William is a 54 year old male admitted to [facility] on 05/16/2020 for altered mental status, polysubstance abuse, and cardiomyopathy. P: Plan is for William to discharge to the [facility] Care Bed tomorrow. Discharge may, however, be postponed, depending on the results of the renal ultrasound and urine and blood cultures. CM will continue to follow.
[2020-05-19] MEDS: QUEtiapine 100 MG TAB 200 MG PO (22:36)
[2020-05-19] MEDS: Benztropine 1 MG TAB PO (22:37)
[2020-05-19] MEDS: Pravastatin 20 MG TAB PO (22:37)
[2020-05-20] MEDS: cefTRIAXone 1 GM/50 ML BAG IVPB (02:52)
[2020-05-20] MEDS: Normal Saline Flush 10 ML SYR IVP (02:52)
[2020-05-20 03:12] VITALS: BP 108/65; PULSE 83; RESP 17; TEMP 36.8; O2SAT 93
[2020-05-20] MEDS: Ipratropium/Albuterol 4 GM 120 PUFF INH IH ×4 (04:32→21:10)
[2020-05-20 06:52] LABS: Abs Immature Grans 0.03 k/cumm (0.0-0.09); Absolute Basophil Count 0.04 k/cumm (0.0-0.2); Absolute Lymphocyte Count 1.25 k/cumm (1.2-3.4); Absolute Monocyte Count 1.21 k/cumm (0.11-0.7); Absolute Neutrophil Count 7.28 k/cumm (1.2-6.7); Basophils % 0.4; HCT 46.4 % (40.0-50.0); HGB 15.4 g/dL (13.5-17.5); Immature Grans % 0.3 %; Lymphocytes % 12.5; Mean Corp. HGB Concentration 33.2 g/dL (32.0-36.0); Mean Corpuscular Hemoglobin 30.7 pg (27.0-33.0); Mean Corpuscular Volume 92.6 fL (80-95); Mean Platelet Volume 11.5 fL (8.0-11.0); Monocytes % 12.1; Neutrophils % 72.7; Platelet Count 128 x1000/uL (130-400); RBC 5.01 m/cumm (4.50-6.00); RBC Distribution Width 13.9 % (11.8-14.1); White Blood Cell Count 10.01 k/cumm (4.4-10.8)
[2020-05-20 07:11] LABS: Anion Gap 9.2 mmol/L (3-11); BUN 10 mg/dL (7-18); CO2 25.8 mmol/L (21.0-32.0); CREATININE 0.88 mg/dL (0.70-1.30); Calcium 9.1 mg/dL (8.5-10.1); Chloride 107 mmol/L (98-107); Glucose 95 mg/dL (74-106); Potassium 3.7 mmol/L (3.5-5.1); Sodium 142 mmol/L (136-145)
[2020-05-20] MEDS: clonazePAM 1 MG TAB PO ×2 (08:06→15:07)
[2020-05-20] MEDS: Enoxaparin 40 MG/0.4 ML SYR SC (08:06)
[2020-05-20] MEDS: Gabapentin 300 MG CAP PO ×3 (08:06→20:00)
[2020-05-20] MEDS: buPROPion-XL 150 MG TABCR 300 MG PO (08:06)
[2020-05-20] MEDS: Montelukast 10 MG TAB PO (08:06)
[2020-05-20] MEDS: Albuterol HFA 8 GM 60 PUFF INH IH (08:10)
[2020-05-20 08:33] VITALS: BP 95/56; PULSE 95; RESP 18; TEMP 36.6; O2SAT 98
--- NOTE | 2020-05-20 09:28 | PGE_ITS ---
Date of Service Date of service: 05/20/20 Time of Service: 09:28 Assessment and Plan Assessment and plan (1) UTI (urinary tract infection): Status: Acute Assessment and plan: Continue Rocephin 1 g IV daily pending results of his urine and blood cultures. So far blood cultures show no growth. Urine culture shows gram-negative rods final identification and sensitivity are pending. Renal ultrasound is still pending Qualifiers: Urinary tract infection type: site unspecified Hematuria presence: without hematuria Qualified Code(s): N39.0 - Urinary tract infection, site not specified (2) Acute alteration in mental status: Status: Resolved Assessment and plan: His initial presentation of alteration of his mental status was felt to be secondary to overmedication of his psychiatric and pain medications. This is since been adjusted with a decrease in his gabapentin and Seroquel. His clonazepam is been discontinued. He remains on his Wellbutrin. (3) Auditory hallucination: Status: Acute Assessment and plan: Likely part of above process - ?acute psychosis. Currently patient's not exhibiting any acute psychosis (4) COPD (chronic obstructive pulmonary disease): Status: Chronic Assessment and plan: At baseline. Continue inhalers. Qualifiers: COPD type: unspecified COPD Qualified Code(s): J44.9 - Chronic obstructive pulmonary disease, unspecified (5) Systolic and diastolic CHF, chronic: Status: Chronic Assessment and plan: History of nonischemic cardiomyopathy with his last e cho performed at [facility] on March 12, 2020 and demonstrated mild LV dysfunction with an ejection fraction of 45 to 50% with no wall motion abnormalities. Right ventricular size and function was normal. There is no hemodynamically significant valvular lesions. He has mild elevation of his RVSP at 36. He has an AICD in place. I have ordered interrogation of his pacemaker/AICD. He has had no arrhythmias during this hospitalization and his telemetry was discontinued couple days ago. Per specialty clinic patient requires a cardiology consultation in order to perform a pacemaker interrogation because the patient apparently is under some kind of study with [facility]. (6) PTSD (post-traumatic stress disorder): Status: Chronic Assessment and plan: As above - will need psychiatric CARE bed placement for observation while medications are adjusted. (7) DVT prophylaxis: Status: Acute Assessment and plan: Patient remains on low-dose enoxaparin subcutaneously (8) Discharge planning issues: Status: Acute Assessment and plan: Full code Plan to be discharged to CARE bed on Wednesday depending on the results of his blood and urine cultures. Subjective Subjective Patient reports: no new complaints Interval history since last seen: No nausea or vomiting no abdominal pain. He denies any dysuria or hematuria. Urine cultures growing gram-negative rods fin al identification and sensitivity are pending. Blood cultures are no growth. White count is normalized to 10,000. Patient remains on ceftriaxone 2 g IV daily. I spoke with Dr. Manriquez today regarding Mr. Gay who told me that Mr. Gay has done this in the past in which he has been noncompliant w/ his meds. Dr. Manriquez indicated that home health nurse has gone in and at times found that he has not taken his meds or taken too many of his meds based on his pill pack. He feels that Mr. Gay needs to go to a SNF or to a mental health care bed. Our plan has been for Mr. Gay to go to care bed once his urine culture results are back and he can be changed to oral antibiotics. Exam Narrative Exam Narrative: Middle-age male who is alert in no discomfort. Lungs are clear to auscultation but with prolonged expiratory phase no wheezes rales or rhonchi. Heart regular rate and rhythm. Abdomen is obese soft nondistended nontender normal active bowel sounds no suprapubic tenderness. No CVA tenderness with percussion Objective Objective Clinical Data: Abnormal lab results 05/20/20 Range/Units 06:25 Plt Count 128 L (130-400) x1000/uL MPV 11.5 H (8.0-11.0) fL Absolute Neutrophils 7.28 H (1.2-6.7) k/cumm Absolute Monocytes 1.21 H (0.11-0.7) k/cumm Vital Signs Temperature 36.6 C 05/20/20 08:33 Temperature Source Tympanic 05/20/20 08:33 Pulse 95 H 05/20/20 08:33 Pulse Rhythm Regular 05/20/20 03:13 Pulse 71 05/16/20 20:31 Respiratory Rate 18 05/20/20 08:33 Respiratory Effort Non-Labored 05/20/20 03:13 Respiratory Depth Normal 05/20/20 03:13 Respiratory Pattern Normal 05/20/20 03:13 Blood Pressure 95/56 L 05/20/20 08:33 Blood Pressure Mean 95 05/16/20 20:30 Pulse Oximetry 98 05/20/20 08:33 Oxygen Delivery Method Room Air 05/20/20 08:33 Oxygen Flow Rate 0 05/20/20 08:33 Pain Level 7 05/20/20 08:33 Comment 05/19/20 23:02 Intake & Output 05/19/20 05/19/20 05/20/20 11:59 23:59 11:59 Intake Total 540 / 1030 490 / 1030 50 / 50 Output Total 741 / 741 Balance -201 / 289 490 / 289 50 / 50 Weight 71.8 kg 71.7 kg Intake: IV 50 / 50 50 / 50 Oral 490 / 980 490 / 980 Output: Urine 200 / 200 Post Void Residual 541 / 541 Other: Urine Color Yellow Yellow Urine Appearance Clear Clear Clear Urine Odor Normal Comment pt sat on toilet to void, urine not measured pt sat on toilet to void, urine not measured pt sat on toilet to void Stool Size Moderate Moderate Stool Characteristics Soft Formed Formed Brown Voiding Methods Toilet Toilet Toilet Laboratory Results WBC 10.01 k/cumm (4.4-10.8) 05/20/20 06:25 RBC 5.01 m/cumm (4.50-6.00) 05/20/20 06:25 Hgb 15.4 g/dL (13.5-17.5) 05/20/20 06:25 Hct 46.4 % (40.0-50.0) 05/20/20 06:25 MCV 92.6 fL (80-95) 05/20/20 06:25 MCH 30.7 pg (27.0-33.0) 05/20/20 06:25 MCHC 33.2 g/dL (32.0-36.0) 05/20/20 06:25 RDW 13.9 % (11.8-14.1) 05/20/20 06:25 Plt Count 128 x1000/uL (130-400) L 05/20/20 06:25 MPV 11.5 fL (8.0-11.0) H 05/20/20 06:25 Immature Gran % 0.3 % 05/20/20 06:25 Neutrophils % 72.7 05/20/20 06:25 Lymphocytes % 12.5 05/20/20 06:25 Monocytes % 12.1 05/20/20 06:25 Eosinophils % 2.0 05/20/20 06:25 Basophils % 0.4 05/20/20 06:25 Absolute Neutrophils 7.28 k/cumm (1.2-6.7) H 05/20/20 06:25 Absolute Lymphocytes 1.25 k/cumm (1.2-3.4) 05/20/20 06:25 Absolute Monocytes 1.21 k/cumm (0.11-0.7) H 05/20/20 06:25 Absolute Eosinophils 0.20 k/cumm (0.0-0.7) 05/20/20 06:25 Absolute Basophils 0.04 k/cumm (0.0-0.2) 05/20/20 06:25 Sodium 142 mmol/L (136-145) 05/20/20 06:25 Potassium 3.7 mmol/L (3.5-5.1) 05/20/20 06:25 Chloride 107 mmol/L (98-107) 05/20/20 06:25 Carbon Dioxide 25.8 mmol/L (21.0-32.0) 05/20/20 06:25 Anion Gap 9.2 mmol/L (3-11) 05/20/20 06:25 BUN 10 mg/dL (7-18) 05/20/20 06:25 Creatinine 0.88 mg/dL (0.70-1.30) 05/20/20 06:25 Estimated GFR/1.73 m2 >= 60.00 (mL/min/1.73m2) 05/20/20 06:25 Glucose 95 mg/dL (74-106) 05/20/20 06:25 Calcium 9.1 mg/dL (8.5-10.1) 05/20/20 06:25 Magnesium 2.0 mg/dL (1.8-2.4) 05/16/20 15:20 Total Bilirubin 0.3 mg/dL (0.2-1.0) 05/17/20 06:15 AST 16 U/L (15-37) 05/17/20 06:15 ALT 20 U/L (16-63) 05/17/20 06:15 Alkaline Phosphatase 90 U/L (46-116) 05/17/20 06:15 Troponin I < 0.05 ng/mL (<0.06) 05/16/20 22:45 Total Protein 6.3 g/dL (6.4-8.2) L 05/17/20 06:15 Albumin 3.3 g/dL (3.4-5.0) L 05/17/20 06:15 Procalcitonin 0.1 ng/mL 05/18/20 21:35 TSH 1.90 uIU/mL (0.36-3.74) 05/16/20 18:45 Urine Color Yellow (Yellow) 05/18/20 22:00 Urine Clarity Cloudy (Clear) 05/18/20 22:00 Urine pH 7.5 (5-8) 05/18/20 22:00 Ur Specific [place] 1.020 (1.005-1.025) 05/18/20 22:00 Urine Protein Negative mg/dL (Negative) 05/18/20 22:00 Urine Ketones Negative mg/dL (Negative) 05/18/20 22:00 Urine Blood Moderate (Negative) H 05/18/20 22:00 Urine Nitrite Positive (Negative) H 05/18/20 22:00 Urine Bilirubin Negative (Negative) 05/18/20 22:00 Urine Urobilinogen 0.2 EU/dL (Up TO 0.2) 05/18/20 22:00 Ur Leukocyte Esterase Moderate (Negative) H 05/18/20 22:00 Urine RBC 3-5 HPF (0-2) H 05/18/20 22:00 Urine WBC 20-50 HPF (0-5) H 05/18/20 22:00 Ur Epithelial Cells Rare HPF (Negative) 05/18/20 22:00 Urine Crystals Negative HPF (Negative) 05/18/20 22:00 Urine Bacteria Many HPF (Negative) 05/18/20 22:00 Urine Casts Negative LPF (Negative) 05/18/20 22:00 Urine Mucus Negative (Negative) 05/18/20 22:00 Ur Culture Indicated? C&s done as ordered 05/18/20 22:00 Urine Glucose Negative mg/dL (Negative) 05/18/20 22:00 Urine Opiates Screen Positive (Negative) A 05/16/20 18:15 Urine Methadone Screen Negative (Negative) 05/16/20 18:15 Ur Barbiturates Screen Negative (Negative) 05/16/20 18:15 Ur Tricyclics Screen Positive (Negative) A 05/16/20 18:15 Ur Amphetamines Screen Negative (Negative) 05/16/20 18:15 U Benzodiazepines Scrn Positive (Negative) A 05/16/20 18:15 Urine Cocaine Screen Negative (Negative) 05/16/20 18:15 Ur THC Screen Negative (Negative) 05/16/20 18:15 Ethyl Alcohol < 3.0 mg/dL (<3) 05/16/20 15:20 COVID-19 PCR Negative (Negative) 05/16/20 17:42 Nasopharyn COVID-19 PCR Not Applicable 05/16/20 17:42 Ref Test Perform Site [facility] lab 05/16/20 17:42
[2020-05-20 11:36] VITALS: BP 104/69; PULSE 89; RESP 18; TEMP 37; O2SAT 96
--- NOTE | 2020-05-20 12:55 | DI.US_ITS ---
EXAM: US RENAL CLINICAL HISTORY: UTI in a male. TECHNIQUE: Montesinos scale, color and spectral Doppler were used. COMPARISON: CT CT CHEST/ABD/PEL W from 05/01/2020 FINDINGS: Renal size in cm: Right: 12.4 left: 9.5 Echogenicity: Normal Hydronephrosis: No Cyst or mass: No Nephrolithiasis: No Other findings: None Bladder:Normal Prevoid vol:166 Postvoid vol:81 Both ureteral jets were visualized. Prostate volume 31 cc. IMPRESSION: Elevated postvoid residual. No evidence hydronephrosis, renal or bladder calculi. DATA REPOSITORY:
--- NOTE | 2020-05-20 13:53 | W.CARDCONSUL ---
Date of service: 05/20/20 Time of Service: 13:53 Assessment and Plan Assessment and plan (1) Biventricular implantable cardioverter-defibrillator (ICD) in situ: Status: Chronic Assessment and plan: The patient's device is functioning appropriately He should continue outpatient follow-up as scheduled History of Present Illness History of Present Illness Chief Complaint: Abnormal mental status Narrative: Cardiac evaluation is been requested for interrogation of the patient's implanted defibrillator/pacemaker Consults Consult date: 05/20/20 [facility] Medical History Agoraphobia (Acute) Biventricular implantable cardioverter-defibrillator (ICD) in situ (Chronic) Mode:DDD, Low rate 60bpm, Atrial lead: medtronic 5076, SN: [id number] 09/27/14; RV lead Medtronic 6935M SN: [id number] 09/27/14; LV lead Medtronic 4396, SN; [id number] 09/27/14 (updated 03/11/20) Depression (Chronic) History of alcohol abuse (Resolved) History of tobacco abuse (Resolved) LBBB (left bundle branch block) (Chronic) Nonischemic dilated cardiomyopathy (Chronic) Pacemaker (Acute) Panic anxiety syndrome (Acute) PTSD (post-traumatic stress disorder) (Chronic) Severe chronic obstructive pulmonary disease (Chronic) Systolic and diastolic CHF, chronic (Chronic) Social History Smoking/Tobacco Use Status: Former Tobacco Use Quit Date: 10/25/15 Pack-years: 120 Alcohol Intake: former Drug use: Never Do you feel safe at home: Yes Do you feel safe in your relationship?: Yes Additional Social history: lives alone Exam Narrative Exam Narrative: The patient's device was interrogated. It is a Medtronic Viva XT SERGER-D was implanted September 27, 2014 Remaining longevity is 18 months Pacing impedance atrial 399 ohms RV 551 ohms LV 323 ohms Defibrillation impedance in the RV is 88 ohms Programmed amplitude/pulse width is 1.5 V / 0.40 ms in the atrial RV and LV leads There has been no treated ventricular tachycardia, ventricular fibrillation, atrial tachycardia or atrial fibrillation in the last 3 months The patient is 99.9% ventricularly paced and atrial sensed There is 100% biventricular pacing Average heart rates are 70-100 Results Last Vital Signs Temp 37 C 05/20/20 11:36 Pulse 89 05/20/20 11:36 Resp 18 05/20/20 11:36 BP 104/69 05/20/20 11:36 Pulse Ox 96 05/20/20 11:36 Labs Result diagrams: 05/20/20 06:25 05/20/20 06:25 Labs: Laboratory Results - last 24 hr 05/20/20 05/20/20 06:25 06:25 WBC 10.01 RBC 5.01 Hgb 15.4 Hct 46.4 MCV 92.6 MCH 30.7 MCHC 33.2 RDW 13.9 Plt Count 128 L MPV 11.5 H Immature Gran % 0.3 Neutrophils % 72.7 Lymphocytes % 12.5 Monocytes % 12.1 Eosinophils % 2.0 Basophils % 0.4 Absolute Neutrophils 7.28 H Absolute Lymphocytes 1.25 Absolute Monocytes 1.21 H Absolute Eosinophils 0.20 Absolute Basophils 0.04 Sodium 142 Potassium 3.7 Chloride 107 Carbon Dioxide 25.8 Anion Gap 9.2 BUN 10 Creatinine 0.88 Estimated GFR/1.73 m2 >= 60.00 Glucose 95 Calcium 9.1
--- NOTE | 2020-05-20 14:53 | PDOC.CMSAFE ---
- If Service Date Differs Date of service: 05/20/20 Time of Service: 14:53 Care Management Safety Plan VOLUNTARY FOR INPATIENT PSYCHIATRIC STABILIZATION. William is appropriate in all interactions since arriving at [facility]; he has demonstrated appropriate coping and communication skills, has articulated his needs and concerns and is engaged during staff interactions. Safety plan has been established with patient, and care team, to adhere to patient goals, identify restrictions based on behavioral status, address nutrition, and determine allowed personal belongings, tools for hygiene and personal care. Determine level of activity including ambulation, level of supervision, visitors, and determine privileges based on behaviors and level of engagement by pt. SAFETY PLAN: 1. Will remain in room under direct supervision of one-on-one staff at all times provided by POLLY, [employer] security system administrator. 2. May have regular cups, plates, and silverware with which to eat meals. 4. Follow [facility] Management of the Admitted Behavioral Health Patient policy. 5. May shower with supervision at the discretion of staff 6. Personal belongings at the discretion of nursing staff. 7. May have support person visit. 8. Phone contact at the discretion of nursing staff. 9. Activity - no limits Due to VOLUNTARY status, if patient wishes to leave [facility], the [facility] package worker must be contacted to re-evaluate patient prior to patient exiting the building. cc:
--- NOTE | 2020-05-20 14:56 | CMPROGNOTE_ITS ---
- If Service Date Differs Date of service: 05/20/20 Time of Service: 14:56 Care Management Progress Note S/O: William was sitting up in bed when CM met with him. He recalled meeting with CM on Wednesday but not the plan that was discussed. CM reminded William that he was to think about going to the Care Bed over the weekend and that he was not felt to be safe to return home alone. William stated that he felt that he did not need the Care Bed and just wanted to go home. He reached out to his therapist at [facility] and had a conversation with her. CM reached out to the [facility] civil service worker Cori, informing her of William's disinclination to go to the Care Bed. A Zoom meeting is planned for later today and his therapist will participate. A: William is a 54 year old male admitted to [facility] on 05/16/2020 for altered mental status, polysubstance abuse, and cardiomyopathy. P: Plan is for William to discharge to the [facility] Care Bed tomorrow. If William does not agree with the plan, it may be necessary for [facility] to formulate a different plan that may include an involuntary placement in a psychiatric facility. CM will continue to support William and his discharge planning needs. cc:
[2020-05-20 15:15] VITALS: BP 124/78; PULSE 81; RESP 18; TEMP 37.5; O2SAT 92
--- NOTE | 2020-05-20 17:28 | W.INMHPGNOTE ---
Date of service: 05/20/20 Time of Service: 17:28 Mental Health Crisis Note Presenting Issue How did you arrive at the ED and why did you come: William was brought to [facility] last due to a change in mental status. Precipitating Factors William is not endorsing SI or HI. Disposition BEHAVIOR: William is anxious and feeling pressured about the choices offered him for treatment after [facility]. He agrees reluctantly to follow the plan. He was able ot ask questions but still presents as losing memories of events and thoughts. EYE CONTACT: William was avoiding with eye contact after he learned who was on the iPad. MOOD: William presents as anxious about next steps. AFFECT: William has a flat affect. APPETITE: Not assessed SLEEP(trouble falling/staying asleep: Not assessed Plan William will stay at [facility] tonight and will be discharged to CARE Bed tomorrow am sometime for follow up treatment. Signature Clinician's Name/Title: Cori Hull MS, [facility] Emergency Services Clinician
[2020-05-20 19:10] VITALS: BP 111/75; PULSE 93; RESP 18; TEMP 37.3; O2SAT 93
[2020-05-20] MEDS: Acetaminophen 325 MG TAB PO (19:58)
[2020-05-20] MEDS: Benztropine 1 MG TAB PO (21:10)
[2020-05-20] MEDS: QUEtiapine 100 MG TAB 200 MG PO (21:10)
[2020-05-20] MEDS: Pravastatin 20 MG TAB PO (21:10)
[2020-05-20 22:50] VITALS: BP 115/74; PULSE 85; RESP 18; TEMP 36.6; O2SAT 94
[2020-05-21] MEDS: cefTRIAXone 1 GM/50 ML BAG IVPB (01:36)
[2020-05-21] MEDS: Normal Saline Flush 10 ML SYR IVP (01:36)
[2020-05-21] MEDS: Ipratropium/Albuterol 4 GM 120 PUFF INH IH ×2 (03:36→10:20)
[2020-05-21 07:23] VITALS: BP 103/68; PULSE 87; RESP 19; TEMP 36; O2SAT 93
[2020-05-21] MEDS: Montelukast 10 MG TAB PO (08:01)
[2020-05-21] MEDS: Enoxaparin 40 MG/0.4 ML SYR SC (08:01)
[2020-05-21] MEDS: buPROPion-XL 150 MG TABCR 300 MG PO (08:01)
[2020-05-21] MEDS: Gabapentin 300 MG CAP PO (08:01)
--- NOTE | 2020-05-21 09:55 | DSE_ITS ---
Date of service: 05/21/20 Time of Service: 09:56 DS: Diagnosis Discharge Diagnosis (1) UTI (urinary tract infection): Status: Acute (2) Acute alteration in mental status: Status: Resolved (3) Auditory hallucination: Status: Acute (4) COPD (chronic obstructive pulmonary disease): Status: Chronic (5) Systolic and diastolic CHF, chronic: Status: Chronic (6) PTSD (post-traumatic stress disorder): Status: Chronic (7) Biventricular implantable cardioverter-defibrillator (ICD) in situ: Status: Chronic Discharge Plan Disposition Patient Disposition: OTHER Condition: Serious Discharge Details Chief Complaint: AMS/LOC Clinical Impression: Acute alteration in mental status Reason For Visit: AMS,POLYSUBSTANCE ABUSE,CARDIOMYOPATHY Admit Date/Time: 05/16/20 19:39 Admit Provider: Hao Velasquez Attending Provider: Hao Velasquez Primary Care Provider: Lorrie Crespo ED Provider: Erik Grace Hospital Course Hospital Course: This is a 54-year-old gentleman who has PTSD and agoraphobia who lives at home alone and was brought to the ED via EMS after home health called state police because of patient's altered mental status and confusion. In the ED patient slowly cleared his mental status and evaluation was unrevealing except for his urine drug being revealing. His initial presentation of alteration of his mental status was felt to be secondary to overmedication of his psychiatric and pain medications. This is since been adjusted with a decrease in his gabapentin and Seroquel. He remains on his Wellbutrin. He also has a history of nonischemic cardiomyopathy with his last echo performed at [facility] on March 12, 2020 and demonstrated mild LV dysfunction with an ejection fraction of 45 to 50% with no wall motion abnormalities. Right ventricular size and function was normal. There is no hemodynamically significant valvular lesions. He has mild elevation of his RVSP at 36. He has an AICD in place. He had an interrogation of his pacemaker/AICD. He has had no arrhythmias during this hospitalization. The patient apparently is under some kind of study with [facility]. He also developed a Raoultella planticola which was sensitive to the ceftriaxone he was started on, he completed 3 days of IV ceftriaxone and will be discharged on 4 more days of cephalexin to complete a 7 day course. Case management has been following, he will need psychiatric CARE bed placement for observation while medications are adjusted. Bed secured and he will be di scharged. discussed with Dr Jara who is in agreement. Home Meds and New Rx's Prescriptions: New cephalexin 500 mg capsule 500 mg PO BID Qty: 9 RF: 0 Continued albuterol sulfate [ProAir HFA] 8.5 GM HFA aerosol inhaler 1 - 2 puff Inhalation Q4H PRN RF: 0 nitroglycerin 0.4 MG tablet, sublingual 0.4 mg Sublingual one every 5 mins. x3 Qty: 30 RF: 3 ipratropium-albuterol 0.5 mg-3 mg(2.5 mg base)/3 mL Solution For Nebulization 3 ml UPD Q4H PRNQty: 1 RF: 0 montelukast 10 mg tablet 10 mg PO DAILY RF: 0 benztropine 1 mg tablet 1 mg PO HS Qty: 0 RF: 0 bupropion HCl 300 mg tablet extended release 24 hr 300 mg PO QAM Qty: 10 RF: 0 pravastatin 20 mg tablet 20 mg PO QHS Qty: 10 RF: 0 clonazepam 2 mg tablet 1 mg PO QID PRN PRN (Reason: Anxiety) RF: 0 Combivent Respimat 20-100 mcg/actuation mist 1 puff IH Q6H Qty: 4 RF: 0 Changed quetiapine [Seroquel] 400 mg Tablet 200 mg PO HS Qty: 3 RF: 0 gabapentin [Neurontin] 600 mg Tablet 300 mg PO TID Qty: 9 RF: 0 Discharge Instructions Instructions: Urinary Tract Infection in Men (ED), Altered Mental Status (ED) Additional Instructions: Continue medications as prescribed. Your Seroquel has been decreased from 400 to 200 mg daily. Complete antibiotics as prescribed even if you feel better. Drink at least 6-8 glasses of water to stay well hydrated. Referrals: Lorrie Crespo [Primary Care Provider] - Activity:: Activity as Tolerated Equipment/Supplies:: No Equipment Needed Diet:: As Tolerated Discharge Orders Discharge Orders: Discharge Order (Routine); Ordered 05/21/20 Ordered By: Pham Ngo DS: Summary Status at Discharge Functional status at discharge: independent ambulation Overall status at discharge: patient is progressing back to baseline Mental Status: mental status grossly normal Speech and Movement: speech and movement normal Mood: congruent mood Affect: normal affect Exam Const General: comfortable and no acute distress Nutritional Appearance: overweight Orientation: alert and awake HENMO Head: normal to inspection, normocephalic and atraumatic Resp Effort & Inspection: normal respiratory effort Auscultation: clear to auscultation bilaterally Cardio Rate: regular rate Rhythm: regular rhythm GI Inspection: normal to inspection Palpation: soft Auscultation: normal bowel sounds Skin General skin exam: no rashes or lesions noted Neuro General: patient alert, patient awake and patient oriented x3 Cranial Nerves: CN's II-XI intact bilaterally Extrem General: normal to inspection and full ROM Psych Mental Status: mental status grossly normal Speech and Movement: speech and movement normal Mood: congruent mood Affect: normal affect DS: Data Vitals/I&O Vitals and I&O: Vital Signs Temperature 36 C L 05/21/20 07:23 Temperature Source Tympanic 05/21/20 07:23 Pulse 87 05/21/20 07:23 Pulse Rhythm Regular 05/21/20 09:04 Pulse 71 05/16/20 20:31 Respiratory Rate 19 05/21/20 07:23 Respiratory Effort Non-Labored 05/21/20 09:04 Respiratory Depth Normal 05/21/20 09:04 Respiratory Pattern Normal 05/21/20 09:04 Blood Pressure 103/68 05/21/20 07:23 Blood Pressure Mean 95 05/16/20 20:30 Pulse Oximetry 93 L 05/21/20 07:23 Oxygen Delivery Method Room Air 05/21/20 07:23 Oxygen Flow Rate 0 05/21/20 07:23 Pain Level 7 05/21/20 07:23 Comment 05/19/20 23:02 Intake & Output 05/20/20 05/20/20 05/21/20 11:59 23:59 11:59 Intake Total 530 / 530 250 / 250 Output Total 972 / 972 Balance 530 / 530 -722 / -722 Weight 71.7 kg 72.2 kg Intake: IV 50 / 50 Oral 480 / 480 250 / 250 Output: Urine 800 / 800 Post Void Residual 172 / 172 Other: Urine Color Yellow Straw Urine Appearance Clear Clear Clear Urine Odor Normal Strain Urine Result Negative-No Stones/Gravel Comment pt sat on toilet to void As per patient report. Urine is strained at this time. No stones noted. Voiding Methods Toilet Toilet Toilet Data Completed and Pending Labs on day of discharge: Preliminary micro results at discharge 05/18/20 21:48 Blood Culture - Preliminary Blood NO GROWTH 48 HOURS 05/18/20 21:35 Blood Culture - Preliminary Blood NO GROWTH 48 HOURS [facility] Medical History Agoraphobia (Acute) Biventricular implantable cardioverter-defibrillator (ICD) in situ (Chronic) Mode:DDD, Low rate 60bpm, Atrial lead: medtronic 5076, SN: [id number] 09/27/14; RV lead Medtronic 6935M SN: [id number] 09/27/14; LV lead Medtronic 4396, SN; [id number] 09/27/14 (updated 03/11/20) Depression (Chronic) History of alcohol abuse (Resolved) History of tobacco abuse (Resolved) LBBB (left bundle branch block) (Chronic) Nonischemic dilated cardiomyopathy (Chronic) Pacemaker (Acute) Panic anxiety syndrome (Acute) PTSD (post-traumatic stress disorder) (Chronic) Severe chronic obstructive pulmonary disease (Chronic) Systolic and diastolic CHF, chronic (Chronic) Social History Smoking/Tobacco Use Status: Former Tobacco Use Quit Date: 10/25/15 Pack-years: 120 Alcohol Intake: former Drug use: Never Do you feel safe at home: Yes Do you feel safe in your relationship?: Yes Additional Social history: lives alone
[2020-05-21 11:23] VITALS: BP 108/69; PULSE 88; RESP 17; TEMP 37.3; O2SAT 91
[2020-05-21 11:32] VITALS: O2SAT 95
--- NOTE | 2020-05-21 12:36 | CMDISCH_ITS ---
- If Service Date Differs Date of service: 05/21/20 Time of Service: 12:36 LACE Index Scoring Tool - Questions: Length of Stay (in days): 4 - 6 Acuity (Admit via E.D.?): Yes Comorbidities: Congestive Heart Failure, Chronic Pulmonary Disease E.D. Visits: 4 - Answers: Total Score: 16 Risk of Readmission: High Risk Care Management Discharge Reason for Hospitalization: Acute alteration in mental status Discharge Plan: William will be discharged to the [facility] Care Bed. He will follow up with his community providers at [facility] and his PCP. William will transport via [facility]. Patient/Family Education Needs: Discharge plan, limitations, follow up plan, Ask Me Three. - MH Services (Omit if N/A) Current MH Services: Care Bed
== END 2020-05-21 11:54 | disposition other institution (70) | DRG 918 ==
LOC: ER 18:34 → MS 20:46
PROVIDERS: General Practice; Internal Medicine; Registered Nurse Emergency; Admitting Provider Family Medicine; Emergency Provider Student in an Organized Health Care Education/Training Program; PCP Nurse Practitioner Family; Visit Provider Family Medicine
DX: T43.591A Poisoning by other antipsychotics and neuroleptics, accidental (unintentional), initial encounter (principal); I42.0 Dilated cardiomyopathy; I50.42 Chronic combined systolic (congestive) and diastolic (congestive) heart failure; T42.6X1A Poisoning by other antiepileptic and sedative-hypnotic drugs, accidental (unintentional), initial encounter; R41.82 Altered mental status, unspecified; F43.10 Post-traumatic stress disorder, unspecified; Z95.810 Presence of automatic (implantable) cardiac defibrillator; F32.9 Major depressive disorder, single episode, unspecified; I44.7 Left bundle-branch block, unspecified; Z87.891 Personal history of nicotine dependence; F10.11 Alcohol abuse, in remission; F40.01 Agoraphobia with panic disorder; J44.9 Chronic obstructive pulmonary disease, unspecified; Z11.59 Encounter for screening for other viral diseases
CPT/HCPCS: 36410; 36415; 36416; 76770; 80048; 80053; 80307; 82962; 84145; 85027; 87040; 87077; 93005; 94640; 96361; 96365; 96366; 99221; 99223; 99232; 99239; 99285; J1650; U0003; 70450; 71045; 71046; 80320; 81003; 81015; 83735; 84443; 84484; 85025; 87086; 87186; 93010; J0696; J1644; J3490

== ENCOUNTER → 2020-05-20 13:41 | Outpatient (BNVA) | payer MEDICARE, SELFPAY | PROVIDERS: PCP Nurse Practitioner Family; Referring Provider Nurse Practitioner Family; Visit Provider Internal Medicine Cardiovascular Disease | DX: R69 Illness, unspecified (principal) ==

== ENCOUNTER 2021-01-01 13:39 | Outpatient (CLI) | payer MEDICARE, SELFPAY ==
--- NOTE | 2021-01-01 | DI.RAD_ITS ---
EXAM: XR HAND LT COMPLETE CLINICAL HISTORY: LT METACARPOPHALANGEAL PAIN, M79.643. TECHNIQUE: 2D digital imaging was performed. COMPARISON: CR RIGHT THUMB from 05/30/2012 CR RIGHT HAND COMPLETE from 05/30/2012 CR RIGHT WRIST COMPLETE from 03/27/2013 FINDINGS: BONES: There is deformity of the head of the 5th metacarpal suggesting an old healed fracture. There is also deformity at the base of the proximal phalanx of the left little finger suggesting an old in jury. No bony destructive lesion is seen. JOINTS: No dislocation present. The joint spaces are well maintained. SOFT TISSUE: There are two 3 mm radiopaque foreign bodies in the soft tissues of the anterior wrist and forearm. These are of uncertain if any clinical significance and uncertain acuity. Please corre late clinically. IMPRESSION: No acute abnormality. DATA REPOSITORY: RADIATION DOSE DELIVERED:
--- NOTE | 2021-01-01 | DI.RAD_ITS ---
EXAM: XR HIP RT COMPLETE AP PELVIS CLINICAL HISTORY: RT HIP PAIN, M25.551. TECHNIQUE: 2D digital imaging was performed. COMPARISON: No exams were available for comparison FINDINGS: BONES: No acute fracture is present. No bony destructive lesion is seen. JOINTS: No dislocation present. The hip joints are well maintained. SOFT TISSUE: Atherosclerosis. IMPRESSION: No significant degenerative changes in the hips. Unremarkable radiographs of the pelvis. DATA REPOSITORY: RADIATION DOSE DELIVERED:
== END 2021-01-01 13:59 ==
PROVIDERS: PCP Nurse Practitioner Family; Visit Provider Nurse Practitioner Family
DX: M25.551 Pain in right hip (principal); M79.642 Pain in left hand
CPT/HCPCS: 73130; 73502

== ENCOUNTER 2021-01-09 16:19 | Outpatient (REF) | payer MEDICARE, SELFPAY ==
[2021-01-09 20:43] LABS: MCH 32.5 pg (27.0-33.0); MCHC 34.9 % (32.0-36.0); MCV 93.3 fL (80-95); MPV 11.3 fL (8.0-11.0); Platelet Count 198 10^3/uL (130-400); RBC 6.12 10^6/uL (4.36-5.78); RDW-SD 45.1 fL; WBC 8.55 10^3/uL (4.4-10.8)
[2021-01-09 20:49] LABS: HCT 57.1 % (40.0-50.0); HGB 19.9 g/dL (13.5-17.5)
[2021-01-09 21:24] LABS: Anion Gap 11.1 mmol/L (3-11); BUN 15 mg/dL (7-18); CO2 25.9 mmol/L (21.0-32.0); CREATININE 1.1 mg/dL (0.70-1.30); Calcium 9.7 mg/dL (8.5-10.1); Chloride 102 mmol/L (98-107); Glucose 92 mg/dL (74-106); Sodium 139 mmol/L (136-145)
== END 2021-01-09 16:20 | disposition home or self-care (01) ==
LOC: NCHCN 16:19
PROVIDERS: PCP Nurse Practitioner Family; Visit Provider Nurse Practitioner Family
DX: R41.0 Disorientation, unspecified (principal)
CPT/HCPCS: 80048; 85027

== ENCOUNTER 2021-01-21 13:44 | Observation (INO) | payer MEDICARE, SELFPAY ==
[2021-01-21] VITALS (53 sets, daily range): BP systolic 94–134; BP diastolic 61–96; PULSE 80–115; RESP 14–23; TEMP 36.4–37.1; O2SAT 90–97
--- NOTE | 2021-01-21 13:45 | RT.EKG_ITS ---
APPROVED REPORT Exam: Resting ECG Patient Location: E HR:110 bpm ECG Measurements Heart Rate 110 AXIS UT 136 P 78 QRSd 132 QRS 110 QT 358 T 26 QTc 484 Conclusion Atrial-sensed ventricular-paced rhythm...ventricular pacing tracks p-waves Biventricular paced rhythm...non-simultaneous bi-vent pacing I have reviewed and interpreted ECG and agree with software generated interpretation.
--- NOTE | 2021-01-21 14:00 | DI.CT_ITS ---
EXAM: CT HEAD WO CLINICAL HISTORY: ams. TECHNIQUE: Imaging Protocol: Axial computed tomography images with coronal and sagittal reformatted images were created and reviewed COMPARISON: CT CT HEAD WO from 05/16/2020 FINDINGS: Ventricles and Extra axial spaces: Normal in size and morphology for the patient's age. Hemorrhage: None. Cerebral parenchyma: Normal. Midline shift: None. Brainstem/Cerebellum: Normal. Calvarium: Normal. Visualized Paranasal sinuses/Mastoids: Clear. Soft Tissues: Unremarkable. IMPRESSION: No acute intracranial process. RADIATION DOSE DELIVERED: 813.81mGy.cm Total DLP DATA REPOSITORY: All CT scans at this facility are submitted to the National Radiology Data Registry (NRDR) Dose Index Registry (DIR) with the [employer] ([employer]). RADIATION OPTIMIZATION: All CT scans at this facility use at least one of these dose optimization te chniques: automated exposure control; mA and/or kV adjustment per patient size (includes targeted exa ms where dose is matched to clinical indication); or iterative reconstruction.
--- NOTE | 2021-01-21 14:00 | DI.RAD_ITS ---
EXAM: XR CHEST 2V PA LATERAL CLINICAL HISTORY: chest pain/dizzy TECHNIQUE: 2D digital imaging was performed. COMPARISON: CR,XR XR PORTABLE CHEST AP from 05/18/2020 FINDINGS: Heart size is normal. Pacemaker is again noted. The lungs are hyperinflated but clear. No infiltra te, effusion or pulmonary edema is seen. IMPRESSION: Changes COPD. No acute abnormality.
--- NOTE | 2021-01-21 14:05 | NUR.NOTE ---
Adelso Brennan [phone]
[2021-01-21] MEDS: Lactated Ringers 1,000 ML 250 ML IV (14:10)
--- NOTE | 2021-01-21 14:12 | W.ED.GENAD ---
Discharge Plan Disposition Patient Disposition: STILL A PATIENT Condition: Stable Discharge Details Admit Date/Time: 01/21/21 18:40 Admit Provider: Rodrigo Cruz Attending Provider: Rodrigo Cruz Primary Care Provider: Lorrie Crespo ED Provider: [place] [facility] Discharge Data Discharge Date/Time-TO BE ENTERED AT DEPARTURE: 01/21/21 19:21 Medical Decision Making <IRASEMA Altamirano - Last Filed: 01/22/21 08:04> 55-year-old gentleman who lives at home alone, presents to the ER for altered mental status via EMS. Past medical history that includes alcohol abuse, ICD, anxiety, PTSD, COPD, CHF. Patient is a rather vague and poor historian. Initially reports bilateral chest pain with taking a deep breath, dizziness that he describes as generalized weakness, etc. Case was discussed with Dr. Pickens who personally evaluated the patient. Patient also complained of abdominal pain, vomiting, diarrhea to her. Differential is broad and includes but not excluded to altered mental status, intracranial hemorrhage, NC, PE, UTI, gastroenteritis, PE, pneumonia, dehydration, etc. Will interrogate his pacemaker, initiate cardiac work-up, give IV fluids, and obtain CT imaging of his head. Once his laboratory values have resulted and we know that contrast can be tolerated, will obtain CT imaging of his chest, abdomen, pelvis. Laboratory values reveal a white blood cell count of 10.29 hemoglobin 20.3 0.1 hematocrit 62.8 platelet count 196. D-dimer 638. Electrolytes unremarkable. BUN 32 creatinine 1.3 GFR 56.9 glucose 117, calcium 10.3, total bili 1.1, alk phosphatase 147. Troponin less than 0.05. BNP 183. Alcohol less than 3. Patient receiving IV fluid, now that I see his BNP is unremarkable, I will provide a second liter. Will also obtain CT imaging of his chest, CTA for PE. Will also obtain imaging of his abdomen and pelvis with contrast given his abdominal pain, vomiting, diarrhea. At 1530, patient is at diagnostic imaging for CTA of chest, CT abdomen and pelvis. Still awaiting the interrogation report of his pacemaker. Still awaiting urinalysis 1550. Received call from radiology. CTA reveals severe emphysema, no PE. Negative CT abdomen and pelvis. Medical Records Medical records reviewed: Yes I reviewed the patient's medical records. Imaging Data Radiologic Study: Attestation: I personally reviewed and interpreted this imaging study as follows: Imaging: X-Ray Radiologist's impression: Chest x-ray reveals changes consistent with COPD. No acute abnormality Lab Data Lab results reviewed: Yes I reviewed the patient's lab results. Labs: Laboratory Tests Range/Units 01/21/21 01/21/21 01/21/21 13:55 13:55 13:55 WBC (4.4-10.8) 10^3/uL RBC (4.36-5.78) 10^6/uL Hgb (13.5-17.5) g/dL Hct (40.0-50.0) % MCV (80-95) fL MCH (27.0-33.0) pg MCHC (32.0-36.0) % RDW (11.8-14.1) % Plt Count (130-400) 10^3/uL MPV (8.0-11.0) fL Immature Gran % Neutrophils % Lymphocytes % Monocytes % Eosinophils % Basophils % Nucleated RBC % % Absolute Neutrophils (1.2-6.7) 10^3/uL Absolute Lymphocytes (1.2-3.4) 10^3/uL Absolute Monocytes (0.1-0.8) 10^3/uL Absolute Eosinophils (0.0-0.7) 10^3/uL Absolute Basophils (0.0-0.2) 10^3/uL PT Not Applicable INR Not Applicable APTT (21.0-27.5) sec 26.5 D-Dimer (<500) ng/mlFEU 638 H Sodium (136-145) mmol/L 138 Potassium (3.5-5.1) mmol/L 4.0 Chloride (98-107) mmol/L 98 Carbon Dioxide (21.0-32.0) mmol/L 28.6 Anion Gap (3-11) mmol/L 11.4 H BUN (7-18) mg/dL 32 H Creatinine (0.70-1.30) mg/dL 1.3 Estimated GFR/1.73 m2 (mL/min/1.73m2) 56.90 Glucose (74-106) mg/dL 117 H Calcium (8.5-10.1) mg/dL 10.3 H Magnesium (1.8-2.4) mg/dL 2.1 Total Bilirubin (0.2-1.0) mg/dL 1.1 H AST (15-37) U/L 19 ALT (16-63) U/L 26 Alkaline Phosphatase (46-116) U/L 147 H Troponin I (<0.06) ng/mL < 0.05 NT-Pro-B Natriuret Pep (<300) pg/mL 183 Total Protein (6.4-8.2) g/dL 7.9 Albumin (3.4-5.0) g/dL 4.2 Ethyl Alcohol (<3) mg/dL Range/Units 01/21/21 01/21/21 13:55 13:55 WBC (4.4-10.8) 10^3/uL 10.29 RBC (4.36-5.78) 10^6/uL 6.91 H Hgb (13.5-17.5) g/dL 23.1 H* Hct (40.0-50.0) % 62.8 H* MCV (80-95) fL 90.9 MCH (27.0-33.0) pg 33.4 H MCHC (32.0-36.0) % 36.8 H RDW (11.8-14.1) % 12.7 Plt Count (130-400) 10^3/uL 196 MPV (8.0-11.0) fL 11.9 H Immature Gran % 0.6 Neutrophils % 72.2 Lymphocytes % 16.0 Monocytes % 9.3 Eosinophils % 0.7 Basophils % 1.2 Nucleated RBC % % 0 Absolute Neutrophils (1.2-6.7) 10^3/uL 7.43 H Absolute Lymphocytes (1.2-3.4) 10^3/uL 1.65 Absolute Monocytes (0.1-0.8) 10^3/uL 0.96 H Absolute Eosinophils (0.0-0.7) 10^3/uL 0.07 Absolute Basophils (0.0-0.2) 10^3/uL 0.12 PT INR APTT (21.0-27.5) sec D-Dimer (<500) ng/mlFEU Sodium (136-145) mmol/L Potassium (3.5-5.1) mmol/L Chloride (98-107) mmol/L Carbon Dioxide (21.0-32.0) mmol/L Anion Gap (3-11) mmol/L BUN (7-18) mg/dL Creatinine (0.70-1.30) mg/dL Estimated GFR/1.73 m2 (mL/min/1.73m2) Glucose (74-106) mg/dL Calcium (8.5-10.1) mg/dL Magnesium (1.8-2.4) mg/dL Total Bilirubin (0.2-1.0) mg/dL AST (15-37) U/L ALT (16-63) U/L Alkaline Phosphatase (46-116) U/L Troponin I (<0.06) ng/mL NT-Pro-B Natriuret Pep (<300) pg/mL Total Protein (6.4-8.2) g/dL Albumin (3.4-5.0) g/dL Ethyl Alcohol (<3) mg/dL < 3.0 ECG Data Attestation: I personally reviewed and interpreted this ECG (s) as follows: Interpretation: Please see this report by Dr. Pickens. Atrial-sensed ventricular paced rhythm. Biventricular paced rhythm. Ventricular rate of 110. <Yeny Pickens DO - Last Filed: 01/21/21 14:43> I have seen and examined this patient. I discussed case and reviewed note with the PA and I agree with plan and note as documented. 55yo M w/ a h/o COPD, ICD, former alcohol abuse, PTSD, CHF presents from home for vomiting, diarrhea, chest and abdominal pain and inability to eat or get out of bed for the past 6 days. Heart rate 100s on arrival. EKG notes a rate of 110, biventricular paced rhythm. Lungs clear. Abdomen soft but diffusely tender. Differential diagnosis includes UTI, gastroenteritis, PE, pneumonia, dehydration, electrolyte abnormality. Plan is for screening labs and CT imaging. Suspect likely admission for possible gi related illness in addition to possible failure to thrive at home. <IRASEMA Fox - Last Filed: 01/21/21 19:38> Care transition to myself from Aniceto Addison PA-C. Please see his initial note regarding history, presentation and exam. In brief, patient is a pleasant 55-year-old gentleman who came in today with chief complaint of nausea, diarrhea, weakness, pleuritic chest pain. Patient has been failing at home and reports he has not been out of bed in the past 5 to 6 days. He describes difficulties at home, does not currently have heat. CMP significant for elevated BUN at 32. Creatinine 1.3. Initial troponin less than 0.05. BNP within normal limits. At the time I assume care, repeat troponin and disposition was pending. As the patient had not been out of bed in the past 5 to 6 days, CK was added on and found to be within normal limits. CT reviewed by radiologist: FINDINGS: Ventricles and Extra axial spaces: Normal in size and morphology for the patient's age. Hemorrhage: None. Cerebral parenchyma: Normal. Midline shift: None. Brainstem/Cerebellum: Normal. Calvarium: Normal. Visualized Paranasal sinuses/Mastoids: Clear. Soft Tissues: Unremarkable. IMPRESSION: No acute intracranial process. FINDINGS: Chest: Pacemaker is noted over the left pectoral muscle which creates some artifact. Pulmonary arteries are well opacified with IV contrast. No pulmonary emboli are seen. There is no evidence of aortic dissection. There are no pleural pericardial effusions. There are severe emphysematous changes with large apical bulla lie. Atelectasis is or scarring is seen in the lingula. No infiltrates are identified. There is no evidence of adenopathy. There are old left rib fractures. The spine appears intact. Abdomen and pelvis the liver, gallbladder, spleen, pancreas and adrenals are unremarkable. There is no evidence of hydronephrosis or urinary tract calculi. The aorta is normal in diameter and shows mild atherosclerotic change. The prostate is mildly enlarged. The bladder appears normal. The appendix is normal. There are small fatty containing inguinal hernias. No bony abnormalities are seen. IMPRESSION: No evidence of pulmonary embolism. Severe emphysematous changes, greater in the upper lobes. No acute abnormalities seen in the abdomen or pelvis. I discussed these results with the patient. Repeat troponin remains less than 0.05. Patient did have sewed of loose/watery stool while here. There is question if his water may be poor at his home. We will send this for ova and parasite as well as C. difficile testing. Patient continues to report feeling very weak. Again, he states that he was not able to get a bed for several days. This, coupled with his current living situation, has me concerned about him being able to safely be discharged home. Consulted with the hospitalist, Dr. Cruz, who agrees to admission. Plan for care management to be involved in patient's case. HPI <IRASEMA Altamirano - Last Filed: 01/22/21 08:04> General Mode of arrival: EMS. Date/Time Provider Initiated Documentation: 01/21/21 13:45. Limitations to Documentation: altered mental status. Information obtained by: patient and EMS. HPI Narrative: This is a 55-year-old gentleman who lives at home alone presented to the ER via EMS for altered mental status. She has a past medical history that includes agoraphobia, biventricular ICD, nonischemic dilated cardiomyopathy, panic attacks, anxiety, PTSD, COPD, CHF. Patient has multiple complaints. Apparently he was seen on 01-09-21 by his primary care office and has not been seen since that time. He was found by a neighbor friend today at his house in bed, apparently has not gotten out of bed in the past 6 days or so. He is a rather vague and poor historian and has multiple complaints. He believes that he is at his baseline mental status and he denies any confusion. He reports generalized dizziness that he later describes as more of a weakness as opposed to the room spinning. He reports bilateral chest discomfort when taking a deep breath. Denies cough, shortness of breath, fever. He states that he has food in the house but has no way of cooking his food. He also states that he has money but does not have a vehicle so he is unable to obtain supplies easily. He also tells me that his house is cold, he needs to have his wood stove properly cleaned. Patient denies recent illness or trauma. He denies any headache, visual changes, abdominal pain, nausea, vomiting, change in bowel or bladder function, numbness, tingling, weakness. I received a call from [facility]. They contacted the [facility] cardiology group with the patient is followed, his last appointment was 14 months ago. Patient has a pacemaker, [employer], and was last interrogated approximately 14 months ago when he was told he had 1.9 years left of battery life. Patient has an appointment to have his battery changed but was unable to make the appointment. Patient reports that he is a former smoker. Denies any alcohol or drug use. Patient is requesting that he be fed a cheeseburger here in the ER. It sounds as though patient has had very little p.o. intake over the past 6 days. Has not taken any of his medications over the past 6 days. EMS noted that his O2 sats on room air were 88, given 2 L nasal cannula and O2 sats are now 94% Related Data Home Medications Medication Instructions Recorded Confirmed albuterol sulfate [ProAir HFA] 1 - 2 puff INHALATION Q4H PRN 09/27/15 01/21/21 inhaler nitroglycerin 0.4 mg SUBLINGUAL one every 5 07/27/17 01/21/21 mins. x3 #30 tab-cap Combivent Respimat 1 puff IH Q6H #4 gm 11/26/18 01/21/21 ipratropium-albuterol 3 ml UPD Q4H PRN #1 packet 07/10/19 01/21/21 montelukast 10 mg PO DAILY 03/08/20 01/21/21 benztropine 1 mg PO HS #0 tab 03/17/20 01/21/21 bupropion HCl 300 mg PO QAM #10 tab 03/17/20 01/21/21 pravastatin 20 mg PO QHS #10 tab 03/17/20 01/21/21 clonazepam 2 mg PO BID 05/02/20 01/21/21 amitriptyline 25 mg PO BID 01/21/21 01/21/21 bupropion HCl 150 mg PO DAILY 01/21/21 01/21/21 gabapentin [Neurontin] 800 mg PO TID 01/21/21 01/21/21 quetiapine 400 mg PO HS 01/21/21 01/22/21 vortioxetine [Trintellix] 5 mg PO DAILY 01/21/21 01/21/21 Previous Rx's Medication Instructions Recorded nitroglycerin 0.4 mg SUBLINGUAL one every 5 07/27/17 mins. x3 #30 tab-cap Combivent Respimat 1 puff IH Q6H #4 gm 11/26/18 ipratropium-albuterol 3 ml UPD Q4H PRN #1 packet 07/10/19 benztropine 1 mg PO HS #0 tab 03/17/20 bupropion HCl 300 mg PO QAM #10 tab 03/17/20 pravastatin 20 mg PO QHS #10 tab 03/17/20 Allergies Allergy/AdvReac Type Severity Reaction Status Date / Time citalopram Allergy Unverified 01/21/21 13:53 oxycodone HCl [From Percocet] AdvReac Addiction Unverified 01/21/21 13:53 General Stated Complaint: Dizzy/Sync MOLLY: 2 Review of Systems <IRASEMA Altamirano - Last Filed: 01/22/21 08:04> Constitutional Constitutional: Reports fatigue, Denies fever(s) and Denies headache(s) Eyes Eyes: Denies change in vision ENT Ears, Nose, Mouth, and Throat: Denies headache(s) and Denies neck pain Cardiovascular Cardiovascular: Reports chest pain and Denies dyspnea Respiratory Respiratory: Denies dyspnea Gastrointestinal Gastrointestinal: Denies abdominal pain, Denies diarrhea, Denies nausea and Denies vomiting Genitourinary Genitourinary: Denies dysuria Musculoskeletal Musculoskeletal: Denies neck pain Integumentary/Breasts Skin/Breast: Denies rash Neurologic Neurologic: Denies headache(s) and Reports weakness (Generalized) Endocrine Endocrine: Reports fatigue Hematologic/Lymphatic Hematologic/Lymphatic: Denies easy bleeding and Denies easy bruising PFSH <IRASEMA Altamirano - Last Filed: 01/22/21 08:04> Medical History (Updated 01/21/21 @ 21:08 by Rodrigo Cruz MD) Agoraphobia Biventricular implantable cardioverter-defibrillator (ICD) in situ Mode:DDD, Low rate 60bpm, Atrial lead: medtronic 5076, SN: [id number] 09/27/14; RV lead Medtronic 6935M SN: [id number] 09/27/14; LV lead Medtronic 4396, SN; [id number] 09/27/14 (updated 03/11/20) Depression History of alcohol abuse History of tobacco abuse LBBB (left bundle branch block) Nonischemic dilated cardiomyopathy Pacemaker Panic anxiety syndrome PTSD (post-traumatic stress disorder) Severe chronic obstructive pulmonary disease Systolic and diastolic CHF, chronic Social History Smoking/Tobacco Use Status: Former Tobacco Use Quit Date: 10/25/15 Pack-years: 120 Smoking risk assessment performed?: Yes Alcohol Intake: former Drug use: Never Do you feel safe at home: Yes Do you feel safe in your relationship?: Yes Additional Social history: lives alone Exam <IRASEMA Altamirano - Last Filed: 01/22/21 08:04> Const General: cooperative, no acute distress and disheveled Orientation: alert, awake, oriented to person, oriented to place and confused (Wednesday, April 13) [facility] Head: normal to inspection, normocephalic and atraumatic Face and sinus: normal facial exam Mouth: moist mucous membranes abnormal (Slightly dry) Throat: posterior oropharynx normal Eyes General: appearance normal, both eyes and all related structures Alignment and Position: alignment normal Periorbital: periorbital findings normal Eyelids: eyelids normal Conjunctivae: conjunctivae normal Sclera: sclerae normal Cornea: corneas normal Pupils: PERRL EOM: EOM intact bilaterally Direct ophthalmoscopy: normal light reflex Neck Neck: normal visual inspection, full ROM, no meningeal signs, trachea midline, supple and nontender Resp Effort & Inspection: normal respiratory effort and able to speak in complete sentences Auscultation: diminished lung sounds bilaterally (Bases) Cardio Rate: tachycardic (112) Rhythm: regular rhythm GI Palpation: soft, not firm, no guarding, no pulsatile masses and nontender Auscultation: normal bowel sounds Back/Spine/Pelvis Back: no CVA tenderness and No back tenderness Skin General skin exam: no rashes or lesions noted Neuro General: patient alert, patient awake, oriented Patient Orientation: Person and Place, moves all extremities and no focal motor deficits Cranial Nerves: CN's II-XI intact bilaterally Cognition: normal cognition Speech: speech normal Motor: muscle tone normal throughout Sensory Exam: no sensory deficits noted Extrem General: normal to inspection, full ROM, capillary refill normal, no pedal edema and no calf tenderness Psych Appearance: grossly normal Mental Status: mental status grossly normal Course <IRASEMA Altamirano - Last Filed: 01/22/21 08:04> Vital Signs Vital signs: Vital Signs Temperature 37.1 C 01/21/21 13:47 Pulse 109 H 01/21/21 13:47 Respiratory Rate 16 01/21/21 13:47 Blood Pressure 123/85 01/21/21 13:47 Pulse Oximetry 92 01/21/21 13:47 Temperature 37.1 C 01/21/21 13:47 Temperature Source Skin 01/21/21 13:47 Pulse 109 H 01/21/21 13:47 Respiratory Rate 16 01/21/21 13:47 Respiratory Effort 01/21/21 13:53 Blood Pressure 123/85 01/21/21 13:47 Blood Pressure Position Sitting 01/21/21 13:47 Pulse Oximetry 92 01/21/21 13:47 Oxygen Delivery Method Room Air 01/21/21 13:47 Oxygen Flow Rate 0 01/21/21 13:47 Sign Out <IRASEMA Altamirano - Last Filed: 01/22/21 08:04> Sign Out Data: Sign Out Comment: Question of altered mental status. Has not gotten out of bed over the past 6 days. Decreased p.o. intake. Chest pain with deep inspiration, abdominal pain, vomiting, diarrhea. Work-up reveals elevated H&H. Awaiting CTA of chest and CT abdomen and pelvis. Also awaiting pacemaker interrogation Last updated by Sp Addison PA at 01/21/21 15:45
[2021-01-21 14:30] LABS: Abs Immature Grans 0.06 10^3/uL (0.0-0.06); Absolute Basophil Count 0.12 10^3/uL (0.0-0.2); Absolute Eosinophil Count 0.07 10^3/uL (0.0-0.7); Absolute Lymphocyte Count 1.65 10^3/uL (1.2-3.4); Absolute Monocyte Count 0.96 10^3/uL (0.1-0.8); Absolute Neutrophil Count 7.43 10^3/uL (1.2-6.7); Basophils % 1.2; Eosinophils % 0.7; Immature Grans % 0.6; MCH 33.4 pg (27.0-33.0); MCHC 36.8 % (32.0-36.0); MCV 90.9 fL (80-95); MPV 11.9 fL (8.0-11.0); Monocytes % 9.3; Neutrophils % 72.2; Nucleated RBC 0 %; Platelet Count 196 10^3/uL (130-400); RBC 6.91 10^6/uL (4.36-5.78); RDW 12.7 % (11.8-14.1); RDW-SD 41.1 fL; WBC 10.29 10^3/uL (4.4-10.8)
--- NOTE | 2021-01-21 14:35 | NUR.NOTE ---
Nursing Note: 1415 pacemaker interigated with medtronic unit
[2021-01-21 14:50] LABS: ALT 26 U/L (16-63); AST 19 U/L (15-37); Alkaline Phosphatase 147 U/L (46-116); Anion Gap 11.4 mmol/L (3-11); Bilirubin, Total 1.1 mg/dL (0.2-1.0); CO2 28.6 mmol/L (21.0-32.0); Chloride 98 mmol/L (98-107); Sodium 138 mmol/L (136-145); Total Protein 7.9 g/dL (6.4-8.2)
[2021-01-21 14:52] LABS: PTT Activated 26.5 sec (21.0-27.5)
[2021-01-21 14:53] LABS: ETHANOL BLOOD < 3.0 mg/dL (<3)
[2021-01-21 14:56] LABS: NT-proBNP 183 pg/mL (<300)
[2021-01-21 15:04] LABS: Albumin 4.2 g/dL (3.4-5.0); BUN 32 mg/dL (7-18); CREATININE 1.3 mg/dL (0.70-1.30); Calcium 10.3 mg/dL (8.5-10.1); Glucose 117 mg/dL (74-106); Magnesium 2.1 mg/dL (1.8-2.4)
[2021-01-21 15:06] LABS: D-Dimer 638 ng/mlFEU (<500); Troponin I < 0.05 ng/mL (<0.06)
[2021-01-21 15:13] LABS: HGB 23.1 g/dL (13.5-17.5)
[2021-01-21 15:14] LABS: HCT 62.8 % (40.0-50.0)
[2021-01-21] MEDS: Omnipaque 350 MG/ML 100 ML BTL IJ (15:34)
[2021-01-21] MEDS: Normal Saline - Diluent 50 ML VIAL IV (15:35)
[2021-01-21] MEDS: Normal Saline Flush 10 ML SYR IVP (15:35)
--- NOTE | 2021-01-21 15:35 | DI.CT_ITS ---
EXAM: CT CHEST PE ABD PELVIS W CLINICAL HISTORY: CP, elevated dimer, 88% 02. TECHNIQUE: Imaging Protocol: Axial CT angiography was performed with multi-slice acquisition and mu lti-planar and/or 3D reconstructions. CONTRAST MATERIAL: Intravenous: Omnipaque 350 Contrast volume:100 ml COMPARISON: CT CT CHEST/ABD/PEL W from 05/01/2020 FINDINGS: Chest: Pacemaker is noted over the left pectoral muscle which creates some artifact. Pulmonary arter ies are well opacified with IV contrast. No pulmonary emboli are seen. There is no evidence of aort ic dissection. There are no pleural pericardial effusions. There are severe emphysematous changes w ith large apical bulla lie. Atelectasis is or scarring is seen in the lingula. No infiltrates are i dentified. There is no evidence of adenopathy. There are old left rib fractures. The spine appears intact. Abdomen and pelvis the liver, gallbladder, spleen, pancreas and adrenals are unremarkable. There is no evidence of hydronephrosis or urinary tract calculi. The aorta is normal in diameter and shows mi ld atherosclerotic change. The prostate is mildly enlarged. The bladder appears normal. The append ix is normal. There are small fatty containing inguinal hernias. No bony abnormalities are seen. IMPRESSION: No evidence of pulmonary embolism. Severe emphysematous changes, greater in the upper lobes. No acu te abnormalities seen in the abdomen or pelvis. RADIATION DOSE DELIVERED: 995.83mGy.cm Total DLP DATA REPOSITORY: All CT scans at this facility are submitted to the National Radiology Data Registry (NRDR) Dose Index Registry (DIR) with the [employer] ([employer]). RADIATION OPTIMIZATION: All CT scans at this facility use at least one of these dose optimization te chniques: automated exposure control; mA and/or kV adjustment per patient size (includes targeted exa ms where dose is matched to clinical indication); or iterative reconstruction.
[2021-01-21] MEDS: Normal Saline 1,000 ML 1000 ML IV (16:05)
[2021-01-21 16:32] LABS: Creatine Kinase 122 U/L (39-308)
[2021-01-21] MEDS: Lactated Ringers 1,000 ML 150 ML IV (16:45)
[2021-01-21 16:52] LABS: INR 1.2 (0.9-1.1); Prothrombin Time 12.3 sec (9.3-11.0)
--- NOTE | 2021-01-21 17:00 | RT.EKG_ITS ---
APPROVED REPORT Exam: Resting ECG Patient Location: E HR:89 bpm ECG Measurements Heart Rate 89 AXIS NC 153 P 94 QRSd 121 QRS 113 QT 393 T 72 QTc 478 Conclusion Atrial-sensed ventricular-paced rhythm...ventricular pacing tracks p-waves Biventricular paced rhythm...non-simultaneous bi-vent pacing
[2021-01-21 17:41] LABS: Troponin I < 0.05 ng/mL (<0.06)
[2021-01-21 17:45] LABS: Bilirubin Small (Negative); Blood Trace-intact (Negative); Clarity Clear (Clear); Glucose Negative (Negative); Ketones 15 mg/dL (Negative); Leukocyte Esterase Negative (Negative); Nitrite Negative (Negative); Specific Gravity <= 1.005 (1.005-1.025); pH 5.5 (5-8)
[2021-01-21 17:55] LABS: Bacteria Negative HPF (Negative); Crystals Negative HPF (Negative); Epithelial Cells Few HPF (Negative); Mucus Negative (Negative); Other Cells Negative (Negative); RBC Negative HPF (0-2)
[2021-01-21 17:56] LABS: C & S Indicated? Yes; Casts 3-5 Fine Granular LPF (Negative)
[2021-01-21 18:05] LABS: Tricyclic Antidepressants POSITIVE (Negative)
[2021-01-21 18:08] LABS: *AMPHETAMINES SCREEN URINE Negative (Negative); *BARBITURATES SCREEN URINE Negative (Negative); *BENZODIAZEPINES SCREEN URINE Negative (Negative); Cannabinoids THC Negative (Negative); Cocaine Screen,Urine Negative (Negative); METHADONE URINE SCREEN Negative (Negative); OPIATES URINE SCREEN Negative (Negative)
[2021-01-21 18:44] LABS: C Diff PCR Negative (Negative)
--- NOTE | 2021-01-21 20:46 | HPE_ITS ---
Date of service: 01/21/21 Time of Service: 20:47 Assessment and Plan Assessment and plan (1) Dehydration: Status: Resolved Assessment and plan: BUN 32, creatinine 1.3. Creatinine earlier in the month was 1.1. No food intake for 8 days per patient, but he endorsed drinking water. Given IV fluids boluses in the ED. Repeat lab in AM. (2) Severe chronic obstructive pulmonary disease: Status: Chronic Assessment and plan: No clear exacerbation. Schedule duonebs and have prn albuterol nebs available. Solu-medrol 60mg IV Q12H Incentive spirometry. (3) Biventricular implantable cardioverter-defibrillator (ICD) in situ: Status: Chronic Assessment and plan: Interogation shows functioning pacemaker. No rhtym disturbances. Battery life left of 11 months. (4) Systolic and diastolic CHF, chronic: Status: Chronic Assessment and plan: No acute exacerbation. Watch for sigsn/symptoms of fluid overload. Not on a diuretic. (5) Generalized weakness: Status: Acute Assessment and plan: Unclear etiology but likely exacerbated by not taking his medications and not eating. He was able to eat a sandwich at time of admission without any symptoms other than what was likely indigestion. PT to evaluate. COVID pending. No recent known contacts or travel. (6) History of alcohol abuse: Status: Resolved Assessment and plan: He denies any current use. Serum Etoh level was negative. (7) Depression: Status: Chronic Assessment and plan: Restarting home meds; buproprion, benztropine, clonazepam, gabapentin, Seroquel. Hold Trintellix; concerns regarding interaction with buproprion. Also not on formulary and he did not bring his home medications to the hospital. (8) Noncompliance with medication regimen: Status: Acute Assessment and plan: Unclear as to why he was not taking his medications. Possible mental health issues? Restarting home meds. Withdrawal from several of his medications likely contributing to his current state. History of Present Illness History of Present Illness Chief Complaint: Generalized weakness Narrative: This is a 55 yo male with a PMH of nonischemic cardiomyopathy, ICD implantation, severe COPD, Combined systolic/diastolic CHF, alcohol abuse, agoraphobia, panic disorder, anxiety, PTSD. He presented to the ED after 8 days of mostly lying in bed and not eating. He stated he only drank fluids during that time. He endorsed multiple symnptoms over that period of time including bilateral chest discomfort with deep breathing., increasing SOA, loose stools, generalized abd pain and emesis (no longer experiencing) and generalized weakness. A neighbor found him in bed and called EMS. To the ED physician he reported that he has food in the home but he has been too weak to cook and that his house is cold because his wood stove needs cleaning. He endorsed not taking his medications for the last 8 days even though he said that were sitting right there where I could stare at them. He denied fever/chills, increased cough or sputum beyond his baseline. No dysuria/frequency/hematuria. No weakness of an extremity, slurred speech, dysphagia, visual changes. The last time he had a visit with his senior principal process engineer was 14 months ago. His pacemaker was interogated in the ED and I spoke with his senior principal process engineer at [facility] [place] who read the report; no rhythm abnormalities noted. He does need to see his senior principal process engineer again withing the next 6 months given the life of his battery is now 11 months. EMS noted his RA O2 saturation was 88%; 2L O2 per NC initiated and saturations in the low to mid 90's were noted thereafter. HIs troponin was normal x 2. No EKG changes that would suggest ischemia. CT chest/abd/pelvis were unremarkable other than findings of changes in lungs consistent with COPD. WBC count normal. Hgb significantly elevated at 23.1. MCV 90.9. Lytes normal. BUN 32. Creatinine1.3. CK normal. Random glucose 117. Protein normal. BNP normal. UA unremarkable. Review of Systems All systems reviewed & are unremarkable except as noted in HPI and below [facility] Medical History (Updated 01/21/21 @ 21:08 by Rodrigo Cruz MD) Agoraphobia Biventricular implantable cardioverter-defibrillator (ICD) in situ Mode:DDD, Low rate 60bpm, Atrial lead: medtronic 5076, SN: [id number] 09/27/14; RV lead Medtronic 6935M SN: [id number] 09/27/14; LV lead Medtronic 4396, SN; [id number] 09/27/14 (updated 03/11/20) Depression History of alcohol abuse History of tobacco abuse LBBB (left bundle branch block) Nonischemic dilated cardiomyopathy Pacemaker Panic anxiety syndrome PTSD (post-traumatic stress disorder) Severe chronic obstructive pulmonary disease Systolic and diastolic CHF, chronic Social History Smoking/Tobacco Use Status: Former Tobacco Use Quit Date: 10/25/15 Pack-years: 120 Smoking risk assessment performed?: Yes Alcohol Intake: former Drug use: Never Do you feel safe at home: Yes Do you feel safe in your relationship?: Yes Additional Social history: lives alone Meds Home Medications and Allergies Allergies Allergy/AdvReac Type Severity Reaction Status Date / Time citalopram Allergy Unverified 01/21/21 13:53 oxycodone HCl [From Percocet] AdvReac Addiction Unverified 01/21/21 13:53 Home Medications Medication Instructions Recorded Confirmed Type albuterol sulfate [ProAir HFA] 1 - 2 puff INHALATION Q4H PRN 09/27/15 01/21/21 History inhaler nitroglycerin 0.4 mg SUBLINGUAL one every 5 07/27/17 01/21/21 Rx mins. x3 #30 tab-cap Combivent Respimat 1 puff IH Q6H #4 gm 11/26/18 01/21/21 Rx ipratropium-albuterol 3 ml UPD Q4H PRN #1 packet 07/10/19 01/21/21 Rx montelukast 10 mg PO DAILY 03/08/20 01/21/21 History benztropine 1 mg PO HS #0 tab 03/17/20 01/21/21 Rx bupropion HCl 300 mg PO QAM #10 tab 03/17/20 01/21/21 Rx pravastatin 20 mg PO QHS #10 tab 03/17/20 01/21/21 Rx clonazepam 2 mg PO BID 05/02/20 01/21/21 History amitriptyline 25 mg PO BID 01/21/21 01/21/21 History bupropion HCl 150 mg PO DAILY 01/21/21 01/21/21 History gabapentin [Neurontin] 800 mg PO TID 01/21/21 01/21/21 History quetiapine 400 mg PO DAILY 01/21/21 01/21/21 History quetiapine [Seroquel] 100 mg PO HS 01/21/21 01/21/21 History vortioxetine [Trintellix] 5 mg PO DAILY 01/21/21 01/21/21 History Exam Const General: cooperative, no acute distress and disheveled Nutritional Appearance: average body habitus Orientation: alert and oriented x3 HENMT Head: normocephalic and atraumatic Eyes Sclera: sclerae normal Pupils: PERRL Neck Neck: full ROM and no JVD Resp Effort & Inspection: normal respiratory effort Auscultation: diminished lung sounds and rhonchi Cardio Rate: regular rate Rhythm: regular rhythm Heart Sounds: S1 normal and S2 normal GI Palpation: soft and nontender Auscultation: normal bowel sounds Skin General skin exam: no rashes or lesions noted Neuro Speech: speech normal Extrem General: no pedal edema and no calf tenderness Psych Appearance: grossly normal Affect: normal affect Results Labs Result diagrams: 01/21/21 13:55 01/21/21 13:55 Labs: Laboratory Results - last 24 hr 01/21/21 01/21/21 01/21/21 13:55 13:55 13:55 WBC RBC Hgb Hct MCV MCH MCHC RDW Plt Count MPV Immature Gran % Neutrophils % Lymphocytes % Monocytes % Eosinophils % Basophils % Nucleated RBC % Absolute Neutrophils Absolute Lymphocytes Absolute Monocytes Absolute Eosinophils Absolute Basophils PT Not Applicable INR Not Applicable APTT 26.5 D-Dimer 638 H Sodium 138 Potassium 4.0 Chloride 98 Carbon Dioxide 28.6 Anion Gap 11.4 H BUN 32 H Creatinine 1.3 Estimated GFR/1.73 m2 56.90 Glucose 117 H Calcium 10.3 H Magnesium 2.1 Total Bilirubin 1.1 H AST 19 ALT 26 Alkaline Phosphatase 147 H Creatine Kinase Troponin I < 0.05 NT-Pro-B Natriuret Pep 183 Total Protein 7.9 Albumin 4.2 Urine Color Urine Clarity Urine pH Ur Specific [place] Urine Protein Urine Ketones Urine Blood Urine Nitrite Urine Bilirubin Urine Urobilinogen Ur Leukocyte Esterase Urine RBC Urine WBC Ur Epithelial Cells Urine Crystals Urine Bacteria Urine Casts Urine Mucus Urine Other Ur Culture Indicated? Urine Glucose Stl C.difficile Tox PCR Urine Opiates Screen Urine Methadone Screen Ur Barbiturates Screen Ur Tricyclics Screen Ur Amphetamines Screen U Benzodiazepines Scrn Urine Cocaine Screen Ur THC Screen Ethyl Alcohol 01/21/21 01/21/21 01/21/21 13:55 13:55 13:55 WBC 10.29 RBC 6.91 H Hgb 23.1 H* Hct 62.8 H* MCV 90.9 MCH 33.4 H MCHC 36.8 H RDW 12.7 Plt Count 196 MPV 11.9 H Immature Gran % 0.6 Neutrophils % 72.2 Lymphocytes % 16.0 Monocytes % 9.3 Eosinophils % 0.7 Basophils % 1.2 Nucleated RBC % 0 Absolute Neutrophils 7.43 H Absolute Lymphocytes 1.65 Absolute Monocytes 0.96 H Absolute Eosinophils 0.07 Absolute Basophils 0.12 PT INR APTT D-Dimer Sodium Potassium Chloride Carbon Dioxide Anion Gap BUN Creatinine Estimated GFR/1.73 m2 Glucose Calcium Magnesium Total Bilirubin AST ALT Alkaline Phosphatase Creatine Kinase 122 Troponin I NT-Pro-B Natriuret Pep Total Protein Albumin Urine Color Urine Clarity Urine pH Ur Specific [place] Urine Protein Urine Ketones Urine Blood Urine Nitrite Urine Bilirubin Urine Urobilinogen Ur Leukocyte Esterase Urine RBC Urine WBC Ur Epithelial Cells Urine Crystals Urine Bacteria Urine Casts Urine Mucus Urine Other Ur Culture Indicated? Urine Glucose Stl C.difficile Tox PCR Urine Opiates Screen Urine Methadone Screen Ur Barbiturates Screen Ur Tricyclics Screen Ur Amphetamines Screen U Benzodiazepines Scrn Urine Cocaine Screen Ur THC Screen Ethyl Alcohol < 3.0 01/21/21 01/21/21 01/21/21 15:04 15:43 16:30 WBC RBC Hgb Hct MCV MCH MCHC RDW Plt Count MPV Immature Gran % Neutrophils % Lymphocytes % Monocytes % Eosinophils % Basophils % Nucleated RBC % Absolute Neutrophils Absolute Lymphocytes Absolute Monocytes Absolute Eosinophils Absolute Basophils PT Cancelled 12.3 H INR Cancelled 1.2 H APTT D-Dimer Sodium Potassium Chloride Carbon Dioxide Anion Gap BUN Creatinine Estimated GFR/1.73 m2 Glucose Calcium Magnesium Total Bilirubin AST ALT Alkaline Phosphatase Creatine Kinase Troponin I < 0.05 NT-Pro-B Natriuret Pep Total Protein Albumin Urine Color Urine Clarity Urine pH Ur Specific [place] Urine Protein Urine Ketones Urine Blood Urine Nitrite Urine Bilirubin Urine Urobilinogen Ur Leukocyte Esterase Urine RBC Urine WBC Ur Epithelial Cells Urine Crystals Urine Bacteria Urine Casts Urine Mucus Urine Other Ur Culture Indicated? Urine Glucose Stl C.difficile Tox PCR Urine Opiates Screen Urine Methadone Screen Ur Barbiturates Screen Ur Tricyclics Screen Ur Amphetamines Screen U Benzodiazepines Scrn Urine Cocaine Screen Ur THC Screen Ethyl Alcohol 01/21/21 01/21/21 01/21/21 17:22 17:22 17:32 WBC RBC Hgb Hct MCV MCH MCHC RDW Plt Count MPV Immature Gran % Neutrophils % Lymphocytes % Monocytes % Eosinophils % Basophils % Nucleated RBC % Absolute Neutrophils Absolute Lymphocytes Absolute Monocytes Absolute Eosinophils Absolute Basophils PT INR APTT D-Dimer Sodium Potassium Chloride Carbon Dioxide Anion Gap BUN Creatinine Estimated GFR/1.73 m2 Glucose Calcium Magnesium Total Bilirubin AST ALT Alkaline Phosphatase Creatine Kinase Troponin I NT-Pro-B Natriuret Pep Total Protein Albumin Urine Color Yellow Urine Clarity Clear Urine pH 5.5 Ur Specific [place] <= 1.005 Urine Protein Trace H Urine Ketones 15 H Urine Blood Trace-intact H Urine Nitrite Negative Urine Bilirubin Small H Urine Urobilinogen 1.0 H Ur Leukocyte Esterase Negative Urine RBC Negative Urine WBC 5-10 Ur Epithelial Cells Few Urine Crystals Negative Urine Bacteria Negative Urine Casts 3-5 fine granular Urine Mucus Negative Urine Other Negative Ur Culture Indicated? Yes Urine Glucose Negative Stl C.difficile Tox PCR Negative Urine Opiates Screen Negative Urine Methadone Screen Negative Ur Barbiturates Screen Negative Ur Tricyclics Screen Positive A Ur Amphetamines Screen Negative U Benzodiazepines Scrn Negative Urine Cocaine Screen Negative Ur THC Screen Negative Ethyl Alcohol Last Vital Signs Temp 36.4 C L 01/21/21 19:41 Pulse 101 H 01/21/21 19:41 Resp 20 01/21/21 19:41 BP 114/71 01/21/21 19:41 Pulse Ox 95 01/21/21 19:41 COVID-19 Screening Have you, or household traveled for leisure in last 14 days?: No Had IN PERSON contact w/suspected or confirmed C-19 person: No
[2021-01-21] MEDS: clonazePAM 1 MG TAB 2 MG PO (20:57)
[2021-01-21] MEDS: Gabapentin 800 MG TAB PO (20:58)
[2021-01-21] MEDS: Amitriptyline 25 MG TAB PO (20:58)
[2021-01-21] MEDS: Famotidine 20 MG TAB PO (20:58)
[2021-01-21 21:54] LABS: Source Nasal/Nares
[2021-01-21 22:28] LABS: COVID-19 PCR Negative (Negative)
[2021-01-21] MEDS: Pravastatin 20 MG TAB PO (22:37)
[2021-01-21] MEDS: QUEtiapine 25 MG TAB 100 MG PO (22:37)
[2021-01-21] MEDS: Benztropine 1 MG TAB PO (22:38)
[2021-01-21] MEDS: Albuterol/Ipratropium 3 ML UPD VIAL UPD (22:39)
[2021-01-21] MEDS: methylPREDNISolone SUCC 125 MG VIAL 60 MG IVP (22:47)
[2021-01-22] VITALS (8 sets, daily range): BP systolic 92–120; BP diastolic 54–72; PULSE 59–96; RESP 16; TEMP 36.2–36.8; O2SAT 93–97
[2021-01-22] MEDS: Albuterol/Ipratropium 3 ML UPD VIAL UPD (03:40)
[2021-01-22 06:56] LABS: Abs Immature Grans 0.01 10^3/uL (0.0-0.06); Absolute Basophil Count 0.02 10^3/uL (0.0-0.2); Absolute Lymphocyte Count 0.48 10^3/uL (1.2-3.4); Absolute Monocyte Count 0.45 10^3/uL (0.1-0.8); Absolute Neutrophil Count 4.95 10^3/uL (1.2-6.7); Basophils % 0.3; HCT 51.9 % (40.0-50.0); HGB 18.2 g/dL (13.5-17.5); Immature Grans % 0.2; Lymphocytes % 8.1; MCHC 35.1 % (32.0-36.0); MCV 91.2 fL (80-95); MPV 12.6 fL (8.0-11.0); Monocytes % 7.6; Neutrophils % 83.8; Nucleated RBC 0 %; Platelet Count 128 10^3/uL (130-400); RBC 5.69 10^6/uL (4.36-5.78); RDW 12.6 % (11.8-14.1); WBC 5.91 10^3/uL (4.4-10.8)
[2021-01-22 07:09] LABS: ALT 28 U/L (16-63); AST 20 U/L (15-37); Alkaline Phosphatase 113 U/L (46-116); Anion Gap 6.5 mmol/L (3-11); BUN 28 mg/dL (7-18); Bilirubin, Total 0.5 mg/dL (0.2-1.0); CO2 28.5 mmol/L (21.0-32.0); Chloride 105 mmol/L (98-107); Glucose 155 mg/dL (74-106); Potassium 4.2 mmol/L (3.5-5.1); Sodium 140 mmol/L (136-145)
[2021-01-22] MEDS: Montelukast 10 MG TAB PO (08:03)
[2021-01-22] MEDS: buPROPion-XL 150 MG TABCR 300 MG PO (08:03)
[2021-01-22] MEDS: Amitriptyline 25 MG TAB PO ×2 (08:03→20:06)
[2021-01-22] MEDS: Gabapentin 800 MG TAB PO ×3 (08:03→20:07)
[2021-01-22] MEDS: clonazePAM 1 MG TAB 2 MG PO ×2 (08:03→20:07)
[2021-01-22] MEDS: methylPREDNISolone SUCC 125 MG VIAL 60 MG IVP ×2 (10:09→21:34)
[2021-01-22] MEDS: Doxycycline Hyclate 100 MG CAP PO ×2 (10:09→20:07)
[2021-01-22] MEDS: Normal Saline Flush 10 ML SYR IVP ×2 (10:09→21:35)
--- NOTE | 2021-01-22 10:17 | IN_ITS ---
Date of service: 01/22/21 Time of Service: 10:17 PT Notes Visit Reasons: Weakness Physical Therapy Inpatient Initial Evaluation Date: 01/22/2021 Referring Doctor: Rodrigo Cruz MD PT Orders: PT CONSULT: Eval/Treat. Precautions: Fall. Standard. Activity as tolerated. Patient Profile/Admitting Diagnosis: William is a 55-year-old male who presented on 01/21/2021 with altered mental status, chest pain with taking deep breaths, generalized weakness, dizziness, abdominal pain, vomiting, and diarrhea. Patient is diagnosed with severe COPD, dehydration, biventricular cardioverter and defibrillator in situ, systolic/diastolic CHF generalized weakness history o f EtOH abuse depression, non-compliance with medications. PMHX: Medical History (Updated 01/21/21 @ 21:08 by Rodrigo Cruz MD) Agoraphobia Biventricular implantable cardioverter-defibrillator (ICD) in situ Mode:DDD, Low rate 60bpm, Atrial lead: medtronic 5076, SN: [id number] 09/27/14; RV lead Medtronic 6935M SN: [id number] 09/27/14; LV lead Medtronic 4396, SN; [id number] 09/27/14 (updated 03/11/20) Depression History of alcohol abuse History of tobacco abuse LBBB (left bundle branch block) Nonischemic dilated cardiomyopathy Pacemaker Panic anxiety syndrome PTSD (post-traumatic stress disorder) Severe chronic obstructive pulmonary disease Systolic and diastolic CHF, chronic Social History/Home Situation: Lives alone in an apartment building with 12 steps to enter without rails. Does not use any assistive device. has family nearby but has been estranged from them for a long time now. States that he currently has no means of transportation. Has not been able to do regular grocery shopping. Equipment Owned/DME: None Subjective: Reports being dizzy and shaky while standing and walking. Indicated that he has fallen 2-3x/day for the past several months. Continues to report being weak in B legs. Objective: General Observation: IV in R UE. Mental Status: Alert and oriented as to person and place. Response time to questions slow. Pain: None reported ROM: Right Upper Extremity: Shoulder Flexion WFL. Shoulder abduction WFL. Elbow flexion WFL. Wrist flexion WFL. Opening and closing of hand WFL. Left Upper Extremity: Shoulder Flexion WFL. Shoulder abduction WFL. Elbow flexion WFL. Wrist flexion WFL. Opening and closing of hand WFL. Right Lower Extremity: Hip flexion WFL. Hip abduction WFL. Knee flexion WFL. Ankle dorsiflexion WFL. Ankle plantarflexion WFL. Left Lower Extremity: Hip flexion WFL. Hip abduction WFL. Knee flexion WFL. Ankle dorsiflexion WFL. Ankle plantarflexion WFL. Strength: Right Upper Extremity: Shoulder flexors 4/5. Shoulder abductors 4/5. Elbow flexors 5/5. Elbow extensors 5/5. Edger Machine Helper strong. Left Upper Extremity: Shoulder flexors 4/5. Shoulder abductors 4/5. Elbow flexors 5/5. Elbow extensors 5/5. Edger Machine Helper strong. Right Lower Extremity: Hip flexors 3+/5. Hip abductors 3+/5. Knee flexors 3+/5. Knee extensors 3+/5. Ankle dorsiflexors 4-/5. Ankle plantarflexors 4-/5. Left Lower Extremity: Hip flexors 3+/5. Hip abductors 3+/5. Knee flexors 3+/5. Knee extensors 3+/5. Ankle dorsiflexors 4-/5. Ankle plantarflexors 4-/5. Sensation: Intact as to pain and pressure on bilateral lower extremities. Bed Mobility/Transfers: Sit to stand contact-guard assist Stand to sit contact-guard assist Bed to chair contact-guard assist Chair to bed contact-guard assist Gait: Despite report of continuous lightheadedness, patient tolerated level surface ambulation of 15 feet +15 feet with front wheeled walker with contact- guard assist. LOB x2. Gait is shaky and unstable. Marlen slow. Balance: Static Sitting: Normal Dynamic Sitting: Normal Static Standing: Fair Dynamic Standing: Fair Special Tests: Mobility Limitations Standardized Measure [facility]-P[facility] 6 clicks Basic Mobility Inpatient Short Form: Raw Score: 18 CMS Score: 47% deficit 4-stage balance test: Patient is unable to maintain all 4 positions for 10 seconds indicating high fall risk at this time. Informed Consent/Education: Patient instructed in purpose of PT consult and plan of care. Assessment: Patient demonstrates generalized weakness, impairment in balance, unsteadiness in gait, and lightheadedness which all increase risk for falling. William is a 55-year-old male who presented on 01/21/2021 with altered mental status, chest pain with taking deep breaths, generalized weakness, dizziness, abdominal pain, vomiting, and diarrhea. Patient is diagnosed with severe COPD, dehydration, biventricular cardioverter and defibrillator in situ, systolic/diastolic CHF generalized weakness history of EtOH abuse depression, non-compliance with medications. Patient presents with clinical signs and symptoms consistent with current/admitting diagnoses that have resulted to mobility limitations, gait instability, generalized weakness, and impairment of motor control as demonstrated by the following impairment level findings: 1. Impaired standing balance 2. Impaired activity tolerance 3. Generalized weakness Impairments are contributing to the following functional limitations: 1. Increase completion time for mobility ADL performance 2. Increased fall risk 3. Inability to negotiate steps alone safely 4. Increased depdence with transfers Patient is assessed as a 12119 moderate complexity based on the following: History: 55-year-old male with impairment level findings, functional limitations, and medical history as indicated above Examination: Demonstrable impairment in strength, balance, and mobility level with underlying impairments and functional limitations as documented above Presentation: Stable Decision Makin moderate complexity Goals: Goals X1 week 1. Sit-Stand independent 2. Stand-Sit independent 3. Bed-Chair independent 4. Chair-Bed independent 5. Independent gait on level surface with use of a single-point cane for at least 300 feet without report of pain nor dyspnea 6. Independent stair negotiation while holding onto bilateral rails for at least 15 steps without report of pain nor dyspnea 7. Independent with home exercise program 8. Good static and dynamic standing balance/tolerance Plan of Care/Treatment Plan: 1-2x/day, 7 days/week x 1 week. Initiate Physical Therapy intervention for strengthening, bed mobility, transfers, gait, stairs, balance training, use of assistive device. DISCHARGE RECOMMENDATIONS: Patient will benefit from home health PT services in order to assess safety of stairs, continue with stair negotiation training in the home environment, assess home safety, identify additional equipment needs, and establish a functional maintenance program that will increase ability of patient to remain at home. Patient may benefit from a single-point cane for community ambulation to maximize safety. TREATMENT CODE/TIME: 45002 x 33 minutes beginning at 10:17 AM. Thank you for the opportunity to participate in the care of this patient. Valentine Tavera PT, DPT, CLT [facility] [place], [place]
--- NOTE | 2021-01-22 11:54 | CHAPLAIN ---
William was sitting up in a chair when I visited. He looked tired, and sometimes closed his eyes during our conversation. He told me he'd been in his apartment, and hadn't eaten in eight days. He didn't explain why. His friend Rico Brennan, a true friend and a stand-up timmy, came with his axe and broke down William's door, which had three locks on it, and called EMS to get William. William talked about being in the ED and being offered a ham sandwich. He said he won't ever forget how that first bite tasted. William asked for assistance in putting Rico on his HIPPA. Clare Alexander, Claim Representative, will help with that. Currently no one is listed on his HIPPA. William also asked if I could find Rico's phone number and MIRANDA Sparks, had it, so William has it now. He has a phone with him but said he can only dial out on it, he can't receive calls. I'll continue to visit Willaim.
--- NOTE | 2021-01-22 14:13 | PDOC.CMIN ---
- If Service Date Differs Date of service: 01/22/21 Time of Service: 14:39 Care Management Initial Assess REASON FOR HOSPITALIZATION:: Weakness PAST MEDICAL HISTORY/PAST SURGICAL HISTORY:: Medical History. Agoraphobia. Biventricular implantable cardioverter-defibrillator (ICD) in situ. Mode:DDD, Low rate 60bpm, Atrial lead: medtronic 5076, SN: [id number] 09/27/14; RV lead Medtronic 6935M SN: [id number] 09/27/14; LV lead Medtronic 4396, SN; TRACIE [id number] 09/27/14 (updated 03/11/20). Depression. History of alcohol abuse. History of tobacco abuse. LBBB (left bundle branch block). Nonischemic dilated cardiomyopathy. Pacemaker. Panic anxiety syndrome. PTSD (post-traumatic stress disorder). Severe chronic obstructive pulmonary disease. Systolic and diastolic CHF, chronic PREVIOUS FUNCTIONAL STATUS/SOCIAL/FAMILY SUPPORTS:: William lives alone in a two story house in [place]. He is disabled and spends his time fishing, hunting, and woodworking. William shares he has a few friends he sees occasionally and states he has family nearby but is estranged from them. William reports he is independent with his ADLs, drives, and takes care of his home, but adds it is not as clean as it should be. He states he would love to have someone cook his meals and help clean his house. CURRENT FUNCTIONAL STATUS:: William was sitting up in his chair when MIRANDA met with him. He reported that he has been very sick at home for the past nine days, and hasn't been taking his medication. He stated that the noise in his head has been worse lately. When asked, he reported that he hears voices all the time, but they have been worse/louder than normal since being sick. He isn't sure if this is due to not taking medications or not. He stated that he wants to sleep all of the time, and isn't waking up to answer his door for [employer]. He had HH services previously, but self reported that he didn't let them in. He stated that he feels that if he was to return home today, he will return to the ED tomorrow, as he doesn't think he can stay safe at home. CM talked to his [employer] [facility] case advocate, Joy ([phone]), and [facility] care bed ([phone]), who are considering him for care bed placement, possibly tomorrow. CM will discuss this with William, and will coordinate a zoom with Davina tomorrow. CM will continue to follow. ADVANCE DIRECTIVES:: None on file. CM will offer forms. Has patient been provided with info about the portal/API?: Yes Did the patient sign up for the portal?: No CODE STATUS:: Full Code INSURANCE COVERAGE / FINANCIAL ISSUES:: MCR CURRENT HOME/COMMUNITY SERVICES/EQUIPMENT:: [employer] [facility] PRIMARY CARE PHYSICIAN:: Lorrie Crespo POTENTIAL DISCHARGE NEEDS:: William may need a stay at the care bed vs home with HH services. Follow up appointments with PCP, [facility], and Palliative care. PATIENT/FAMILY EDUCATION NEEDS:: Review discharge instructions regarding activity levels and medications, discussion of self care needs including ask me three. ANTICIPATED BARRIERS TO DISCHARGE:: None identified TRANSPORTATION:: Depending on disposition, likely [employer] [facility] [facility] [facility] vs RCT PLAN:: William will remain overnight for monitoring and to work with PT. He will either transition to the care bed vs return home with new HH orders. CM will coordinate a zoom meeting with Davina [facility] care [facility], to discuss his discharge plan. He will be closely followed by [facility]. He will follow up with his PCP and discharge plan of care. CM will continue to follow.
--- NOTE | 2021-01-22 15:08 | PGE_ITS ---
Date of Service Date of service: 01/22/21 Time of Service: 15:09 Assessment and Plan Assessment and plan (1) Dehydration: Status: Resolved Assessment and plan: repeat labs improved w/ creatinine of 1.0 and BUN of 28. He seems to be eating and drinking ok. I do not feel that he needs ongoing iv fluids and with his hx of cardiomyopathy (LVEF 45-50%) and biventricular pacing and mild PHTN, I think that he does not need further iv fluids. (2) Severe chronic obstructive pulmonary disease: Status: Chronic Assessment and plan: mild exacerbation at best. I am putting him on doxycycline. I will switch his iv solumedrol to oral prednisone 40 mg daily x 5 days.Patient has been placed on Symbicort and Spiriva. At home he was using ProAir MDI prn and Combivent REspimat qid. (3) Biventricular implantable cardioverter-defibrillator (ICD) in situ: Status: Chronic Assessment and plan: Interogation shows functioning pacemaker. No rhtym disturbances. Battery life left of 11 months. (4) Systolic and diastolic CHF, chronic: Status: Chronic Assessment and plan: No acute exacerbation. Watch for sigsn/symptoms of fluid overload. Not on a diuretic. (5) Generalized weakness: Status: Acute Assessment and plan: Unclear etiology but likely exacerbated by not taking his medications and not eating. patient tolerating diet today. PT to evaluate. SARS Covid 2 nasopharyngeal swab was negative. (6) History of alcohol abuse: Status: Resolved Assessment and plan: He denies any current use. Serum Etoh level was negative. (7) Depression: Status: Chronic Assessment and plan: Restarting home meds; buproprion, benztropine, clonazepam, gabapentin, Seroquel. Hold Trintellix; concerns regarding interaction with buproprion. Also not on formulary and he did not bring his home medications to the hospital. His depression apppears to be recurrent and uncontrolled. Unclear d/t noncompliance w/ meds versus need for med adjustment. While no clear cut psychosis, his seeing bug in his medication packages may be a visual hallucination. Qualifiers: Depression Type: major depressive disorder Major depression recurrence: recurrent Active/Remission status: currently active Major depression episode severity: severe Psychotic features: with psychotic features Qualified Code(s): F33.3 - Major depressive disorder, recurrent, severe with psychotic symptoms (8) Noncompliance with medication regimen: Status: Acute Assessment and plan: Unclear as to why he was not taking his medications. Possible mental health issues? Restarting home meds. Withdrawal from several of his medications likely contributing to his current state. Subjective Subjective Interval history since last seen: Patient did well w/ eating breakfast this a.m. He reports lying in bed for a week and not taking his meds. He says that his gabapentin medications which came mail delivery had bugs in the container. Rather than calling the pharmacy ([facility]) he chose to just not take his meds. he has also not taken any of his psychiatric meds for his depression and anxiety. He was admitted last night by Dr. Cruz d/t the patient's inability to care for himself. Dr. Cruz put him on steroids and nebulized bronchodilators for his COPD. Although is SPO2 was 88% on RA per EMS when they picked him up, the patient is not on any home oxygen and his CTA of his chest did not show any infiltrates nor CHF but shows emphysema. William says that he has been coughing up some purulent sputum although none since admission. I will put him on oral do xycycline. CM is working w/ [employer] about his living situation. Exam Narrative Exam Narrative: Middle age male who appears older than his stated age. He is alert, and superficially seems to be oriented. Lungs w/ diffusely diminished BS but no rhonchi nor any wheezing nor rales. Heart: RRR, no murmur, rub or gallope Abd: soft, nontender, no guarding. Extremites w/out edema or cyanosis. Objective Last Vital Signs Temp 36.2 C L 01/22/21 07:56 Pulse 74 01/22/21 07:56 Resp 16 01/22/21 07:56 BP 118/72 01/22/21 07:56 Pulse Ox 95 01/22/21 10:30 Laboratory Results - last 24 hr 01/21/21 01/21/21 01/21/21 13:55 13:55 13:55 WBC 10.29 RBC 6.91 H Hgb 23.1 H* Hct 62.8 H* MCV 90.9 MCH 33.4 H MCHC 36.8 H RDW 12.7 Plt Count 196 MPV 11.9 H Immature Gran % 0.6 Neutrophils % 72.2 Lymphocytes % 16.0 Monocytes % 9.3 Eosinophils % 0.7 Basophils % 1.2 Nucleated RBC % 0 Absolute Neutrophils 7.43 H Absolute Lymphocytes 1.65 Absolute Monocytes 0.96 H Absolute Eosinophils 0.07 Absolute Basophils 0.12 PT Not Applicable INR Not Applicable APTT 26.5 D-Dimer 638 H Sodium Potassium Chloride Carbon Dioxide Anion Gap BUN Creatinine Estimated GFR/1.73 m2 Glucose Calcium Total Bilirubin AST ALT Alkaline Phosphatase Creatine Kinase 122 Troponin I Total Protein Albumin Urine Color Urine Clarity Urine pH Ur Specific [place] Urine Protein Urine Ketones Urine Blood Urine Nitrite Urine Bilirubin Urine Urobilinogen Ur Leukocyte Esterase Urine RBC Urine WBC Ur Epithelial Cells Urine Crystals Urine Bacteria Urine Casts Urine Mucus Urine Other Ur Culture Indicated? Urine Glucose Stl C.difficile Tox PCR Urine Opiates Screen Urine Methadone Screen Ur Barbiturates Screen Ur Tricyclics Screen Ur Amphetamines Screen U Benzodiazepines Scrn Urine Cocaine Screen Ur THC Screen COVID-19 Source SARS-CoV-2 (PCR) 01/21/21 01/21/21 01/21/21 15:04 15:43 16:30 WBC RBC Hgb Hct MCV MCH MCHC RDW Plt Count MPV Immature Gran % Neutrophils % Lymphocytes % Monocytes % Eosinophils % Basophils % Nucleated RBC % Absolute Neutrophils Absolute Lymphocytes Absolute Monocytes Absolute Eosinophils Absolute Basophils PT Cancelled 12.3 H INR Cancelled 1.2 H APTT D-Dimer Sodium Potassium Chloride Carbon Dioxide Anion Gap BUN Creatinine Estimated GFR/1.73 m2 Glucose Calcium Total Bilirubin AST ALT Alkaline Phosphatase Creatine Kinase Troponin I < 0.05 Total Protein Albumin Urine Color Urine Clarity Urine pH Ur Specific [place] Urine Protein Urine Ketones Urine Blood Urine Nitrite Urine Bilirubin Urine Urobilinogen Ur Leukocyte Esterase Urine RBC Urine WBC Ur Epithelial Cells Urine Crystals Urine Bacteria Urine Casts Urine Mucus Urine Other Ur Culture Indicated? Urine Glucose Stl C.difficile Tox PCR Urine Opiates Screen Urine Methadone Screen Ur Barbiturates Screen Ur Tricyclics Screen Ur Amphetamines Screen U Benzodiazepines Scrn Urine Cocaine Screen Ur THC Screen COVID-19 Source SARS-CoV-2 (PCR) 01/21/21 01/21/21 01/21/21 17:22 17:22 17:32 WBC RBC Hgb Hct MCV MCH MCHC RDW Plt Count MPV Immature Gran % Neutrophils % Lymphocytes % Monocytes % Eosinophils % Basophils % Nucleated RBC % Absolute Neutrophils Absolute Lymphocytes Absolute Monocytes Absolute Eosinophils Absolute Basophils PT INR APTT D-Dimer Sodium Potassium Chloride Carbon Dioxide Anion Gap BUN Creatinine Estimated GFR/1.73 m2 Glucose Calcium Total Bilirubin AST ALT Alkaline Phosphatase Creatine Kinase Troponin I Total Protein Albumin Urine Color Yellow Urine Clarity Clear Urine pH 5.5 Ur Specific [place] <= 1.005 Urine Protein Trace H Urine Ketones 15 H Urine Blood Trace-intact H Urine Nitrite Negative Urine Bilirubin Small H Urine Urobilinogen 1.0 H Ur Leukocyte Esterase Negative Urine RBC Negative Urine WBC 5-10 Ur Epithelial Cells Few Urine Crystals Negative Urine Bacteria Negative Urine Casts 3-5 fine granular Urine Mucus Negative Urine Other Negative Ur Culture Indicated? Yes Urine Glucose Negative Stl C.difficile Tox PCR Negative Urine Opiates Screen Negative Urine Methadone Screen Negative Ur Barbiturates Screen Negative Ur Tricyclics Screen Positive A Ur Amphetamines Screen Negative U Benzodiazepines Scrn Negative Urine Cocaine Screen Negative Ur THC Screen Negative COVID-19 Source SARS-CoV-2 (PCR) 01/21/21 01/22/21 01/22/21 19:12 06:05 06:05 WBC 5.91 D RBC 5.69 Hgb 18.2 H D Hct 51.9 H MCV 91.2 MCH 32.0 MCHC 35.1 RDW 12.6 Plt Count 128 L MPV 12.6 H Immature Gran % 0.2 Neutrophils % 83.8 Lymphocytes % 8.1 Monocytes % 7.6 Eosinophils % 0.0 Basophils % 0.3 Nucleated RBC % 0 Absolute Neutrophils 4.95 Absolute Lymphocytes 0.48 L Absolute Monocytes 0.45 Absolute Eosinophils 0.00 Absolute Basophils 0.02 PT INR APTT D-Dimer Sodium 140 Potassium 4.2 Chloride 105 Carbon Dioxide 28.5 Anion Gap 6.5 BUN 28 H Creatinine 1.0 Estimated GFR/1.73 m2 >= 60.00 Glucose 155 H Calcium 9.0 Total Bilirubin 0.5 AST 20 ALT 28 Alkaline Phosphatase 113 Creatine Kinase Troponin I Total Protein 6.0 L Albumin 3.0 L Urine Color Urine Clarity Urine pH Ur Specific [place] Urine Protein Urine Ketones Urine Blood Urine Nitrite Urine Bilirubin Urine Urobilinogen Ur Leukocyte Esterase Urine RBC Urine WBC Ur Epithelial Cells Urine Crystals Urine Bacteria Urine Casts Urine Mucus Urine Other Ur Culture Indicated? Urine Glucose Stl C.difficile Tox PCR Urine Opiates Screen Urine Methadone Screen Ur Barbiturates Screen Ur Tricyclics Screen Ur Amphetamines Screen U Benzodiazepines Scrn Urine Cocaine Screen Ur THC Screen COVID-19 Source Nasal/nares SARS-CoV-2 (PCR) Negative
[2021-01-22] MEDS: Normal Saline 500 ML IV (15:27)
--- NOTE | 2021-01-22 15:36 | PT.INTREAT ---
Date of service: 01/22/21 Time of Service: 13:50 PT Notes Visit Reasons: Weakness Inpatient Physical Therapy Treatment Note [facility] Date: 01/22/2021 PRECAUTIONS: Fall SUBJECTIVE: William is agreeable to participating in PT. He reports that he is normally not on oxygen and doesn't use a FWW at baseline, although feels that he needs both of these things to get better. OBJECTIVE: PAIN: No c/o pain BED MOBILITY/TRANSFERS Supine-sit: I Sit-stand: S Stand-sit: S Bed-Chair: SBA Chair-bed: SBA GAIT Assistive Device: FWW Weight bearing: Full Assist: SBA Distance: 125' Deviation: Standing rest x3, c/o chest tightness (reported to nursing) ASSESSMENT: Patient was able to tolerate a progression in gait distance with FWW support and SBA, although required standing rest x3. PLAN: Continue with gait training with least restrictive device and add stair training. TREATMENT CODE/TIME: 20 minutes; [id number] (13:50)
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
--- NOTE | 2021-01-22 17:09 | NUR.NOTE ---
Nursing Note: At 1645 on 01/22/21, the charge nurse paged the MD to notify them of the pt.'s request to speak with them regarding their depression and to ask if a mental health consult might be beneficial. MD never responded to the charge nurse's page and never entered the pt.'s room to speak with them. Charge nurse to make a note on the report sheet to have the charge nurse tomorrow morning mention in morning report that the pt. is feeling depressed and that the pt. may benefit from a mental health consult. RN will reassess as necessary.
[2021-01-22] MEDS: Budesonide/Formoterol 160/4.5 6 GM 60 PUFF INH IH (20:08)
[2021-01-22] MEDS: Benztropine 1 MG TAB PO (21:32)
[2021-01-22] MEDS: QUEtiapine 100 MG TAB 400 MG PO (21:33)
[2021-01-22] MEDS: Pravastatin 20 MG TAB PO (21:33)
[2021-01-23 02:22] VITALS: O2SAT 96
[2021-01-23 06:19] VITALS: O2SAT 94
[2021-01-23 07:24] VITALS: BP 100/65; PULSE 84; RESP 18; TEMP 36.5; O2SAT 91
[2021-01-23] MEDS: Budesonide/Formoterol 160/4.5 6 GM 60 PUFF INH IH (08:13)
[2021-01-23] MEDS: Tiotropium Bromide-Respimat 10 PUFF INH 2 PUFF IH (08:14)
[2021-01-23 08:42] VITALS: O2SAT 89
[2021-01-23] MEDS: Gabapentin 800 MG TAB PO ×2 (08:46→14:54)
[2021-01-23] MEDS: buPROPion-XL 150 MG TABCR 300 MG PO (08:46)
[2021-01-23] MEDS: Doxycycline Hyclate 100 MG CAP PO (08:46)
[2021-01-23] MEDS: Amitriptyline 25 MG TAB PO (08:46)
[2021-01-23] MEDS: Montelukast 10 MG TAB PO (08:46)
[2021-01-23] MEDS: predniSONE 20 MG TAB 40 MG PO (08:47)
[2021-01-23] MEDS: clonazePAM 1 MG TAB 2 MG PO (08:47)
[2021-01-23 10:45] VITALS: O2SAT 90
[2021-01-23 10:53] VITALS: PULSE 107; PULSE 111; PULSE 119; RESP 20; RESP 24; O2SAT 89; O2SAT 90; O2SAT 91
--- NOTE | 2021-01-23 12:03 | PT.INTREAT ---
Date of service: 01/23/21 Time of Service: 10:40 PT Notes Visit Reasons: Weakness Inpatient Physical Therapy Treatment Note [facility] Date: 01/23/2021 PRECAUTIONS: Fall SUBJECTIVE: William is agreeable to participating in PT. He reports that he feels he is getting better. OBJECTIVE: PAIN: No c/o pain BED MOBILITY/TRANSFERS Sit-stand: I Stand-sit: I Bed-Chair: S Chair-bed: S GAIT Assistive Device: FWW Weight bearing: Full Assist: S Distance: 200' + 80' Deviation: Standing rest x1, seated rest x1, slight SOB STAIRS: Up/down 9x4 and 6x6 using B rails and a step to pattern with supervision ASSESSMENT: Patient was able to tolerate a progression in gait distance with FWW support and supervision, although required standing rest x1 and demonstrates slight SOB. He was also able to tolerate stair negotiation training, well without complaint. PLAN: Continue with gait training and add global strengthening for improved activity tolerance and mobility via PT upon discharge. TREATMENT CODE/TIME: 30 minutes; [id number] x2 (10:40)
--- NOTE | 2021-01-23 14:12 | W.PM.DS.N ---
Date of service: 01/23/21 Time of Service: 14:13 DS: Diagnosis Discharge Diagnosis (1) Dehydration: Status: Resolved Asessment and Plan: Readily corrected with IV fluids. Patient is now taking adequate oral fluids and foods with a good appetite. (2) Severe chronic obstructive pulmonary disease: Status: Chronic Asessment and Plan: Patient has severe emphysema. CTA of his chest showed no pulmonary embolus and no pneumonia. Patient was treated aerosolized bronchodilators and steroids. He will continue on a 5-day course of doxycycline 100 mg p.o. twice daily for bronchitis and prednisone 40 mg daily for 5 days. He will continue with his usual Combivent Respimat inhaler and he will be started on fluticasone propionic-salmeterol 115-21 mcg per actuation 2 puffs inhaled twice a day. Patient underwent an ambulatory pulse oximetry study and maintain his oxygen saturation at 89% or higher and therefore at this time does not qualify for home oxygen. (3) Biventricular implantable cardioverter-defibrillator (ICD) in situ: Status: Chronic Asessment and Plan: Patient's pacemaker was interrogated in the emergency department in the emergency department spoke with his poultry sexer at [facility] who indicated that there were no dysrhythmias noted as battery life is now 11 months. He needs a follow-up within the next 6 months with his poultry sexer to reassess his pacemaker. (4) Systolic and diastolic CHF, chronic: Status: Chronic Asessment and Plan: Patient showed no signs of acute exacerbation of his chronic heart failure. Last echocardiogram performed at [facility] was from March 12, 2020. At that time LVEF was 45 to 50%. He had normal left ventricular segmental wall motion. RV size and function was normal. He had mild pulmonary hypertension with RVSP of 36 mm. He had normal left and right atrial size. He had no hemodynamically significant valvular lesions. (5) Generalized weakness: Status: Acute Asessment and Plan: Patient would benefit from outpatient physical therapy to improve his strength and balance. (6) History of alcohol abuse: Status: Resolved Asessment and Plan: Patient's had no evidence of recidivism (7) Depression: Status: Chronic Asessment and Plan: Patient's depression is not adequately controlled and is recommended that he have psychiatric follow-up through [facility] to adjust his psychiatric medications. (8) Noncompliance with medication regimen: Status: Acute Asessment and Plan: Hopefully with adjustment in his antidepressant medications along with good community support William will be able to improve upon his medication compliance. Upon leaving [facility] bed he will need close follow-up as an outpatient Discharge Plan Disposition Condition: Stable Discharge Details Reason For Visit: WEAKNESS Admit Date/Time: 01/21/21 18:40 Admit Provider: Rodrigo Cruz Attending Provider: Rodrigo Cruz Primary Care Provider: Lorrie Crespo Hospital Course Hospital Course: This is a 55 yo male with a PMH of nonischemic cardiomyopathy, ICD implantation, severe COPD, Combined systolic/diastolic CHF, alcohol abuse, agoraphobia, panic disorder, anxiety, PTSD. He presented to the ED after 8 days of mostly lying in bed and not eating. He stated he only drank fluids during that time. He endorsed multiple symnptoms over that period of time including bilateral chest discomfort with deep breathing., increasing SOA, loose stools, generalized abd pain and emesis (no longer experiencing) and generalized weakness. A neighbor found him in bed and called EMS. To the ED physician he reported that he has food in the home but he has been too weak to cook and that his house is cold because his wood stove needs cleaning. He endorsed not taking his medications for the last 8 days even though he said that were sitting right there where I could stare at them. He denied fever/chills, increased cough or sputum beyond his baseline. No dysuria/frequency/hematuria. No weakness of an extremity, slurred speech, dysphagia, visual changes. The last time he had a visit with his poultry sexer was 14 months ago. His pacemaker was interogated in the ED and I spoke with his poultry sexer at [facility] who read the report; no rhythm abnormalities noted. He does need to see his poultry sexer again withing the next 6 months given the life of his battery is now 11 months. EMS noted his RA O2 saturation was 88%; 2L O2 per NC initiated and saturations in the low to mid 90's were noted thereafter. HIs troponin was normal x 2. No EKG changes that would suggest ischemia. CT chest/abd/pelvis were unremarkable other than findings of changes in lungs consistent with COPD. WBC count normal. Hgb significantly elevated at 23.1. MCV 90.9. Lytes normal. BUN 32. Creatinine1.3. CK normal. Random glucose 117. Protein normal. BNP normal. UA unremarkable. SARS-CoV-2 nasopharyngeal swab is negative. CTA chest, abdomen and pelvis was performed on admission and demonstrated severe emphysema but no PE nor pneumonia. No acute abnormalities of the abdomen nor pelvis were seen. Patient received iv fluids and was started on oral steroids, aerosolized bronchodilators, and doxycycline. He was evaluated by [facility] and d/t exacerbation of his underlying psychiatric problems leading to self neglect, it was believed that he would benefit from a short term stay at [facility] acute crisis bed. While here at [facility] respiratory therapy evaluated him for oxygen and his SPO2 remained at 89% w/ ambulation, therefore he did not qualify for home oxygen, although it is believed that he in the near future he will require this. Home Meds and New Rx's Prescriptions: New fluticasone propion-salmeterol 115-21 mcg/actuation HFA aerosol inhaler 2 puff inhalation BID Qty: 12 RF: 0 prednisone 20 mg tablet 40 mg PO DAILY 5 Days Qty: 10 RF: 0 doxycycline hyclate 100 mg tablet 100 mg PO BID Qty: 10 RF: 0 Continued albuterol sulfate [ProAir HFA] 8.5 GM HFA aerosol inhaler 1 - 2 puff Inhalation Q4H PRN RF: 0 nitroglycerin 0.4 MG tablet, sublingual 0.4 mg Sublingual one every 5 mins. x3 Qty: 30 RF: 3 ipratropium-albuterol 0.5 mg-3 mg(2.5 mg base)/3 mL Solution For Nebulization 3 ml UPD Q4H PRNQty: 1 RF: 0 montelukast 10 mg tablet 10 mg PO DAILY RF: 0 benztropine 1 mg tablet 1 mg PO HS Qty: 0 RF: 0 bupropion HCl 300 mg tablet extended release 24 hr 300 mg PO QAM Qty: 10 RF: 0 pravastatin 20 mg tablet 20 mg PO QHS Qty: 10 RF: 0 clonazepam 2 mg tablet 2 mg PO BID RF: 0 amitriptyline 25 mg tablet 25 mg PO BID RF: 0 bupropion HCl 150 mg tablet extended release 24 hr 150 mg PO DAILY RF: 0 quetiapine 400 mg tablet 400 mg PO HS RF: 0 Trintellix 5 mg Tablet 5 mg PO DAILY RF: 0 gabapentin [Neurontin] 600 mg tablet 800 mg PO TID RF: 0 Combivent Respimat 20-100 mcg/actuation mist 1 puff IH Q6H Qty: 4 RF: 0 Discharge Instructions Instructions: Chronic Lung Disease and Infection Prevention (DC) Activity:: Activity as Tolerated Activity:: Activity as Tolerated Equipment/Supplies:: No Equipment Needed Diet:: Normal Diet DS: Summary Time Spent with Patient providing and/or coordinating discharge services: Greater than 30 minutes Status at Discharge Functional status at discharge: uses cane/walker Overall status at discharge: patient is back to baseline Mental Status: mental status grossly normal Speech and Movement: speech and movement normal Mood: congruent mood Affect: normal affect Exam Narrative Exam Narrative: Patient was found asleep in his chair after lunch but was able to be awakened and was completely coherent and oriented. He says he ate well at breakfast and lunch today. He is looking forward to going to the acute crisis bed at [facility]. He recognizes that he has been failing at home. Lungs are clear to auscultation although diffusely diminished. No rhonchi no wheezes and no rales. Heart regular rate and rhythm Abdomen soft nontender nondistended. Psych Mental Status: mental status grossly normal Speech and Movement: speech and movement normal Mood: congruent mood Affect: normal affect DS: Data Vitals/I&O Vitals and I&O: Vital Signs Temperature 36.5 C 01/23/21 07:24 Temperature Source Tympanic 01/23/21 07:24 Pulse 84 01/23/21 07:24 Pulse Rhythm Regular 01/23/21 08:40 Pulse 94 H 01/21/21 19:10 Respiratory Rate 18 01/23/21 07:24 Respiratory Effort 01/23/21 08:40 Respiratory Depth Shallow 01/23/21 08:40 Respiratory Pattern Normal 01/23/21 08:40 Blood Pressure 100/65 01/23/21 07:24 Blood Pressure Mean 78 01/21/21 19:00 Blood Pressure Position Sitting 01/21/21 13:47 Pulse Oximetry 90 L 01/23/21 10:45 Oxygen Delivery Method Room Air 01/23/21 10:45 Oxygen Flow Rate 0 01/23/21 10:45 Pain Level 0 01/23/21 07:24 Comment 01/22/21 15:02 Intake & Output 01/22/21 01/23/21 01/23/21 23:59 11:59 23:59 Intake Total 2180 / 3630 480 / 730 250 / 730 Output Total 1750 / 2250 950 / 950 Balance 430 / 1380 -470 / -220 250 / -220 Intake: IV 500 / 500 Oral 1680 / 3130 480 / 730 250 / 730 Output: Urine 1750 / 2250 950 / 950 Other: Urine Color Yellow Straw Yellow Urine Appearance Cloudy Clear Clear Urine Odor Normal Normal Comment Void x1 in the toilet Stool Size Moderate Stool Characteristics Formed Voiding Methods Urinal Urinal Toilet Data Completed and Pending Labs on day of discharge: Labs from last 24 hours 01/21/21 13:55 Path Cons Comment See comment PFS Medical History (Updated 01/22/21 @ 15:23 by Sp Jara) Agoraphobia Biventricular implantable cardioverter-defibrillator (ICD) in situ Mode:DDD, Low rate 60bpm, Atrial lead: medtronic 5076, SN: [id number] 09/27/14; RV lead Medtronic 6935M SN: [id number] 09/27/14; LV lead Medtronic 4396, SN; [id number] 09/27/14 (updated 03/11/20) Depression History of alcohol abuse History of tobacco abuse LBBB (left bundle branch block) Nonischemic dilated cardiomyopathy Pacemaker Panic anxiety syndrome PTSD (post-traumatic stress disorder) Severe chronic obstructive pulmonary disease Systolic and diastolic CHF, chronic Social History Smoking/Tobacco Use Status: Former Tobacco Use Quit Date: 10/25/15 Pack-years: 120 Smoking risk assessment performed?: Yes Alcohol Intake: former Drug use: Never Do you feel safe at home: Yes Do you feel safe in your relationship?: Yes Additional Social history: lives alone
--- NOTE | 2021-01-23 15:12 | PDOC.HHF2F_ITS ---
Home Health Certification Home Health Certification: 1. Encounter Date and Reason I certify that GENNA MEYER was seen by Sp Jara on 01/23/21 and that I had a [id number] encounter with this patient that meets the physician face to face encounter requirements. 2. Clinical Findings Supporting Skilled Need and Homebound Status I certify that home health services are medically necessary, include either intermittent penitentiary and/or physical/speech therapy, and that this patient is homebound in that absences from the home require considerable and taxing effort and are infrequent or of short duration, or are attributable to the need to receive medical care. [X] (a) Attached documentation from encounter provides clinical findings supporting skilled need and homebound status (including what assistance patient requires to leave the home). The encounter with the patient was in whole, or in part, for the following medical condition, which is the primary reason for home health care: WEAKNESS Fpc: home health nursing to monitor patient while at [facility] bed and provide feedback on patient's progression of his generalized weakness, nutrition status and COPD Physical Therapy: Patient needs P.T. evaluation and treatment regarding generalzed weakness, ambulatory dysfunction d/t decreased oral nutrition, underlying COPD Speech Therapy: Homebound: general weakness from his COPD and poor nutrition have made travel outside his home or care bed hazardous as he has had falls and can not safely leave home to seek medical care 3. Certification and Authentication I certify that I composed the above information based on my clinical judgement relating to this patient's medical condition and, if applicable, clinical findings communicated to me by the NPP or inpatient physician who performed the Home Health Referral. All further orders will be obtained through ___Lorrie Cortés un (Community Based Physician - PCP)
--- NOTE | 2021-01-23 15:43 | CHAPLAIN ---
I had a brief visit with William before he was discharged, and gave him a prayer shawl. He expressed his gratitude for the care he received here.
--- NOTE | 2021-01-23 15:59 | PDOC.CMDIS ---
- If Service Date Differs Date of service: 01/23/21 Time of Service: 15:59 LACE Index Scoring Tool - Questions: Length of Stay (in days): 2 Acuity (Admit via E.D.?): Yes Comorbidities: Congestive Heart Failure, Chronic Pulmonary Disease E.D. Visits: 4 - Answers: Total Score: 14 Risk of Readmission: High Risk Care Management Discharge Reason for Hospitalization: Weakness Discharge Plan: William was discharged into the community today, and was placed at the [facility] care bed by EXTR[employer] PRESS SUPERVISOR. He will have HH PT visit him at the care bed, approved by both the care bed staff and [facility]. CM informed [facility] of his discharge today. He transported via [facility] staff. He will follow up with his therapist, PCP, and discharge plan of care. He is happy to be going to the Care Bed. Patient/Family Education Needs: Review discharge instructions with William and Care Bed staff, discussion of self care needs and goals of care. Services Needed at Discharge: Home Health Care Services (HH PT) - MH Services (Omit if N/A) Current MH Services: [employer]
--- NOTE | 2021-01-24 13:18 | INDS_ITS ---
Date of service: 01/24/21 Time of Service: 13:18 PT Notes Visit Reasons: Weakness Physical Therapy Inpatient Discharge Summary Date: 01/24/2021 Dates of service: 01/22/2021 through 01/23/2021 This is a clinical summary of care provided on the duration of dates listed above. No charge was made in the completion of this documentation. Referring Doctor: Rodrigo Cruz MD PT Orders: PT CONSULT: Eval/Treat. Precautions: Fall. Standard. Activity as tolerated. Patient Profile/Admitting Diagnosis: William is a 55-year-old male who presented on 01/21/2021 with altered mental status, chest pain with taking deep breaths, generalized weakness, dizziness, abdominal pain, vomiting, and diarrhea. Patient is diagnosed with severe COPD, dehydration, biventricular cardioverter and defibrillator in situ, systolic/diastolic CHF generalized weakness history of EtOH abuse depression, non-compliance with medications. PMHX: Medical History (Updated 01/21/21 @ 21:08 by Rodrigo Cruz MD) Agoraphobia Biventricular implantable cardioverter-defibrillator (ICD) in situ Mode:DDD, Low rate 60bpm, Atrial lead: medtronic 5076, SN: [id number] 09/27/14; RV lead Medtronic 6935M SN: [id number] 09/27/14; LV lead Medtronic 4396, SN; TRACIE [id number] 09/27/14 (updated 03/11/20) Depression History of alcohol abuse History of tobacco abuse LBBB (left bundle branch block) Nonischemic dilated cardiomyopathy Pacemaker Panic anxiety syndrome PTSD (post-traumatic stress disorder) Severe chronic obstructive pulmonary disease Systolic and diastolic CHF, chronic Social History/Home Situation: Lives alone in an apartment building with 12 steps to enter without rails. Does not use any assistive device. has family nearby but has been estranged from them for a long time now. States that he currently has no means of transportation. Has not been able to do regular grocery shopping. Equipment Owned/DME: None Subjective: NT. See most recent MARKETING SERVICES VICE PRESIDENT notes. Objective: General Observation: NT. See most recent MARKETING SERVICES VICE PRESIDENT notes. Mental Status: NT. See most recent MARKETING SERVICES VICE PRESIDENT notes. Pain: NT. See most recent MARKETING SERVICES VICE PRESIDENT notes. ROM: Right Upper Extremity: Shoulder Flexion WFL. Shoulder abduction WFL. Elbow flexion WFL. Wrist flexion WFL. Opening and closing of hand WFL. Left Upper Extremity: Shoulder Flexion WFL. Shoulder abduction WFL. Elbow flexion WFL. Wrist flexion WFL. Opening and closing of hand WFL. Right Lower Extremity: Hip flexion WFL. Hip abduction WFL. Knee flexion WFL. Ankle dorsiflexion WFL. Ankle plantarflexion WFL. Left Lower Extremity: Hip flexion WFL. Hip abduction WFL. Knee flexion WFL. Ankle dorsiflexion WFL. Ankle plantarflexion WFL. Strength: Right Upper Extremity: Shoulder flexors 4/5. Shoulder abductors 4/5. Elbow flexors 5/5. Elbow extensors 5/5. Blood Bank Order Control Clerk strong. Left Upper Extremity: Shoulder flexors 4/5. Shoulder abductors 4/5. Elbow flexors 5/5. Elbow extensors 5/5. Blood Bank Order Control Clerk strong. Right Lower Extremity: Hip flexors 3+/5. Hip abductors 3+/5. Knee flexors 3+/5. Knee extensors 3+/5. Ankle dorsiflexors 4-/5. Ankle plantarflexors 4-/5. Left Lower Extremity: Hip flexors 3+/5. Hip abductors 3+/5. Knee flexors 3+/5. Knee extensors 3+/5. Ankle dorsiflexors 4-/5. Ankle plantarflexors 4-/5. Sensation: Intact as to pain and pressure on bilateral lower extremities. Bed Mobility/Transfers: Sit to stand independent Stand to sit independent Bed to chair independent Chair to bed independent Gait: Up to 200 feet on level surface ambulation using front wheel walker with full weightbearing requiring only supervision assist with 1 standing rest due to slight SOB. Stairs: Tolerated 9 x 4 inch steps and six 6 inch steps while holding onto bilateral rails with step to gait pattern requiring only supervision assist. Static Sitting: Normal Dynamic Sitting: Normal Static Standing: Fair Dynamic Standing: Fair Assessment: Patient continues to demonstrate generalized weakness, impairment in balance, unsteadiness in gait, and lightheadedness which all increase risk for falling. William is a 55-year-old male who presented on 01/21/2021 with altered mental status, chest pain with taking deep breaths, generalized weakness, dizziness, abdominal pain, vomiting, and diarrhea. Patient is diagnosed with severe COPD, dehydration, biventricular cardioverter and defibrillator in situ, systolic/diastolic CHF generalized weakness history of EtOH abuse depression, non-compliance with medications. Patient continues to present with clinical signs and symptoms consistent with current/admitting diagnoses that have resulted to mobility limitations, gait instability, generalized weakness, and impairment of motor control as demonstrated by the following impairment level findings: 1. Impaired standing balance 2. Impaired activity tolerance 3. Generalized weakness Impairments are continuing to contribute to the following functional limitations: 1. Increase completion time for mobility ADL performance 2. Increased fall risk 3. Inability to negotiate steps alone safely 4. Increased depdence with transfers Goals: Goals X1 week 1. Sit-Stand independent MET 2. Stand-Sit independent MET 3. Bed-Chair independent NOT MET 4. Chair-Bed independent NOT MET 5. Independent gait on level surface with use of a single-point cane for at least 300 feet without report of pain nor dyspnea NOT MET 6. Independent stair negotiation while holding onto bilateral rails for at least 15 steps without report of pain nor dyspnea NOT MET 7. Independent with home exercise program NOT MET 8. Good static and dynamic standing balance/tolerance NOT MET DISCHARGE RECOMMENDATIONS: Patient will benefit from home health PT services in order to assess safety of stairs, continue with stair negotiation training in the home environment, assess home safety, identify additional equipment needs, and establish a functional maintenance program that will increase ability of patient to remain at home. Patient may benefit from a single-point cane for community ambulation to maximize safety. TREATMENT CODE/TIME: OK Thank you for the opportunity to participate in the care of this patient. Valentine Tavera PT, DPT, CLT [facility] [place], [place]
== END 2021-01-23 15:37 | disposition other institution (70) ==
LOC: ER 19:17 → MS 19:27
PROVIDERS: Physician Assistant; Admitting Provider Family Medicine; Emergency Provider Physician Assistant; PCP Nurse Practitioner Family; Visit Provider Family Medicine
DX: E86.0 Dehydration (principal); J44.9 Chronic obstructive pulmonary disease, unspecified; Z95.810 Presence of automatic (implantable) cardiac defibrillator; I50.42 Chronic combined systolic (congestive) and diastolic (congestive) heart failure; R53.1 Weakness; Z20.822 Contact with and (suspected) exposure to COVID-19; Z91.14 Patient's other noncompliance with medication regimen; F10.11 Alcohol abuse, in remission; I42.9 Cardiomyopathy, unspecified; F41.0 Panic disorder [episodic paroxysmal anxiety]; F43.10 Post-traumatic stress disorder, unspecified; I44.7 Left bundle-branch block, unspecified; Z87.891 Personal history of nicotine dependence; F33.3 Major depressive disorder, recurrent, severe with psychotic symptoms
CPT/HCPCS: 36415; 71275; 74177; 80053; 80307; 82550; 87493; 87635; 90686; 93005; 94618; 94640; 96360; 96361; 97162; 97530; 99222; 99225; 99239; 99285; 70450; 71046; 80320; 81003; 81015; 83630; 83735; 83880; 84484; 85025; 85379; 85610; 85730; 87086; 87177; 93010; 94667; 99217; 99219; G0378; J2930; J3490; J7512; J7620

== ENCOUNTER 2021-01-28 16:04 | Emergency (ER) | payer MEDICARE, SELFPAY ==
[2021-01-28] VITALS (10 sets, daily range): BP systolic 126; BP diastolic 78; PULSE 115–118; RESP 1–22; TEMP 37.1; O2SAT 92–99
--- NOTE | 2021-01-28 16:00 | DI.RAD_ITS ---
EXAM: XR PORTABLE CHEST AP CLINICAL HISTORY: sob, wheeze TECHNIQUE: 2D digital imaging was performed. COMPARISON: CR XR CHEST 2V PA LATERAL from 01/21/2021 FINDINGS: The heart size is normal. Pacemaker is again noted. The lungs are hyperinflated. Emphysematous chris nges are noted greatest in the upper lobes. No superimposed infiltrate, effusion or pulmonary edema is visible. No pneumothorax is seen. IMPRESSION: No acute abnormality. Emphysematous changes.
--- NOTE | 2021-01-28 16:00 | RT.EKG_ITS ---
APPROVED REPORT Exam: Resting ECG Patient Location: E HR:115 bpm ECG Measurements Heart Rate 115 AXIS CA 154 P 83 QRSd 109 QRS 198 QT 327 T 60 QTc 453 Conclusion Atrial-sensed ventricular-paced rhythm...ventricular pacing tracks p-waves Biventricular paced rhythm...non-simultaneous bi-vent pacing Physician: Good capture, negative for scarbossa
[2021-01-28] MEDS: Albuterol/Ipratropium 3 ML UPD VIAL 9 ML UPD (16:36)
[2021-01-28] MEDS: methylPREDNISolone SUCC 125 MG VIAL IM (16:42)
--- NOTE | 2021-01-28 16:54 | W.ED.GENAD ---
Discharge Plan Disposition Patient Disposition: HOME Condition: Good Discharge Details Clinical Impression: COPD exacerbation Primary Care Provider: Lorrie Crespo ED Provider: Ronal Recinos Home Meds and New Rx's Prescriptions: New prednisone 50 MG tablet 50 mg PO DAILY Qty: 5 RF: 0 azithromycin [Zithromax Z-Trent] 250 mg tablet 250 mg PO DAILY 5 Days Qty: 5 RF: 0 ipratropium-albuterol 0.5 mg-3 mg(2.5 mg base)/3 mL solution for nebulization 3 ml IH Q6H Qty: 90 RF: 0 Continued albuterol sulfate [ProAir HFA] 8.5 GM HFA aerosol inhaler 1 - 2 puff Inhalation Q4H PRN RF: 0 nitroglycerin 0.4 MG tablet, sublingual 0.4 mg Sublingual one every 5 mins. x3 Qty: 30 RF: 3 ipratropium-albuterol 0.5 mg-3 mg(2.5 mg base)/3 mL Solution For Nebulization 3 ml UPD Q4H PRNQty: 1 RF: 0 montelukast 10 mg tablet 10 mg PO DAILY RF: 0 benztropine 1 mg tablet 1 mg PO HS Qty: 0 RF: 0 bupropion HCl 300 mg tablet extended release 24 hr 300 mg PO QAM Qty: 10 RF: 0 pravastatin 20 mg tablet 20 mg PO QHS Qty: 10 RF: 0 clonazepam 2 mg tablet 2 mg PO BID RF: 0 amitriptyline 25 mg tablet 25 mg PO BID RF: 0 bupropion HCl 150 mg tablet extended release 24 hr 150 mg PO DAILY RF: 0 quetiapine 400 mg tablet 400 mg PO HS RF: 0 Trintellix 5 mg Tablet 5 mg PO DAILY RF: 0 gabapentin [Neurontin] 600 mg tablet 800 mg PO TID RF: 0 fluticasone propion-salmeterol 115-21 mcg/actuation HFA aerosol inhaler 2 puff inhalation BID Qty: 12 RF: 0 doxycycline hyclate 100 mg tablet 100 mg PO BID Qty: 10 RF: 0 Combivent Respimat 20-100 mcg/actuation mist 1 puff IH Q6H Qty: 4 RF: 0 Discharge Instructions Instructions: COPD (Chronic Obstructive Pulmonary Disease) (ED) Additional Instructions: At this time your symptoms are consistent with a COPD exacerbation. We have sent a prescription for steroid, antibiotic, and nebulizers for home use. These have been sent to your pharmacy. Please take them as directed. If you notice any worsening of your symptoms, or any new symptoms such as vomiting, diarrhea, fever, chills, shortness of breath, chest pain, numbness, weakness, or fainting , please return immediately to the emergency department for reevaluation. Please follow up with your primary care provider as soon as possible for reassessment and reevaluation. As always, it was a pleasure participating in your medical care today. Referrals: Lorrie Crespo [Primary Care Provider] - Discharge Data Discharge Date/Time-TO BE ENTERED AT DEPARTURE: 01/28/21 17:33 Medical Decision Making 55-year-old male with a past medical history of COPD exacerbations, pacemaker, PTSD, previous substance abuse, presents today for evaluation of shortness of breath. Patient has recently been at a crisis bed, while there he has not had his normal nebulizer treatments for the last few days. He is usually followed closely by respiratory therapist here. He does admit to mild cough but he denies any focal productivity of the sputum. He denies any hemoptysis. He denies any calf tenderness. He denies any fever or chills. States that his similar symptoms are identical to his previous COPD exacerbations. No other complaints at this time. No other modifying factors. He denies any chest pain, chest tightness, chest heaviness. He denies any bandlike sensation around the chest. Physical exam demonstrates mildly diminished breath sounds, mild wheezes, no focal crackles. Patient demonstrates no signs of hypoxemia. Symptoms at this time appear consistent with mild COPD exacerbation. Will give 3 breathing treatments and steroids. Screening secured entrance monitor closely and reassess. 6 PM Chest x-ray is read as negative per virtual radiology. Do feel that there may be a small consolidation right lower lobe. After 3 breathing treatments patient is feeling much better. He feels that his baseline would like to go back to his care bed. We will give him a nebulizer for home use, 3 additional breathing treatments using the night as needed. We will give her a prescription for this, as well as steroids from use. I do feel there may be a component of bronchitis versus small early pneumonia chest x-ray, will give azithromycin prescription for [place]. Patient appears well, symptoms are inconsistent with ACS, pulmonary embolism or dissection. Patient will be discharged back to his care bed. I have extensively reviewed the treatment plan and discharge instructions with the patient. I have addressed all patient concerns at this time. The patient was made aware of what symptoms to monitor for that would warrant a return to the emergency department. Discussed the plan with the patient, they demonstrate verbal understanding and agreement with our assessment and plan at this time. The documentation in this chart was dictated using [employer] dictation software. Please excuse any dictation errors. FINDINGS: Tubes, catheters and devices: A cardiac pacemaker is present. Lungs: The lungs are hyperinflated consistent with COPD. No new segmental or lobar consolidation is seen. Pleural spaces: Unremarkable. No pleural effusion. No pneumothorax. Heart/Mediastinum: Unremarkable. No cardiomegaly. Bones/joints: Unremarkable. IMPRESSION: 1. COPD. 2. No acute abnormality. Thank you for allowing us to participate in the care of your patient. Dictated and Authenticated by: Karlo Leahy MD 01/28/2021 5:44 PM Eastern Time ([place] & [place]) HPI General Date/Time Provider Initiated Documentation: 01/28/21 16:05. HPI Narrative: 55-year-old male with a past medical history of COPD exacerbations, PTSD, previous substance abuse, presents today for evaluation of shortness of breath. Patient has recently been at a crisis bed, while there he has not had his normal nebulizer treatments for the last few days. He is usually followed closely by respiratory therapist here. He does admit to mild cough but he denies any focal productivity of the sputum. He denies any hemoptysis. He denies any calf tenderness. He denies any fever or chills. States that his similar symptoms are identical to his previous COPD exacerbations. No other complaints at this time. No other modifying factors. He denies any chest pain, chest tightness, chest heaviness. He denies any bandlike sensation around the chest. Related Data Home Medications Medication Instructions Recorded Confirmed albuterol sulfate [ProAir HFA] 1 - 2 puff INHALATION Q4H PRN 09/27/15 01/21/21 inhaler nitroglycerin 0.4 mg SUBLINGUAL one every 5 07/27/17 01/21/21 mins. x3 #30 tab-cap Combivent Respimat 1 puff IH Q6H #4 gm 11/26/18 01/21/21 ipratropium-albuterol 3 ml UPD Q4H PRN #1 packet 07/10/19 01/21/21 montelukast 10 mg PO DAILY 03/08/20 01/21/21 benztropine 1 mg PO HS #0 tab 03/17/20 01/21/21 bupropion HCl 300 mg PO QAM #10 tab 03/17/20 01/21/21 pravastatin 20 mg PO QHS #10 tab 03/17/20 01/21/21 clonazepam 2 mg PO BID 05/02/20 01/21/21 Trintellix 5 mg PO DAILY 01/21/21 01/21/21 amitriptyline 25 mg PO BID 01/21/21 01/21/21 bupropion HCl 150 mg PO DAILY 01/21/21 01/21/21 gabapentin [Neurontin] 800 mg PO TID 01/21/21 01/21/21 quetiapine 400 mg PO HS 01/21/21 01/22/21 doxycycline hyclate 100 mg PO BID #10 tab 01/23/21 fluticasone propion-salmeterol 2 puff INHALATION BID #12 g 01/23/21 azithromycin [Zithromax Z-Trent] 250 mg PO DAILY 5 Days #5 tab 01/28/21 ipratropium-albuterol 3 ml IH Q6H #90 ml 01/28/21 prednisone 50 mg PO DAILY #5 tab 01/28/21 Previous Rx's Medication Instructions Recorded nitroglycerin 0.4 mg SUBLINGUAL one every 5 07/27/17 mins. x3 #30 tab-cap Combivent Respimat 1 puff IH Q6H #4 gm 11/26/18 ipratropium-albuterol 3 ml UPD Q4H PRN #1 packet 07/10/19 benztropine 1 mg PO HS #0 tab 03/17/20 bupropion HCl 300 mg PO QAM #10 tab 03/17/20 pravastatin 20 mg PO QHS #10 tab 03/17/20 doxycycline hyclate 100 mg PO BID #10 tab 01/23/21 fluticasone propion-salmeterol 2 puff INHALATION BID #12 g 01/23/21 azithromycin [Zithromax Z-Trent] 250 mg PO DAILY 5 Days #5 tab 01/28/21 ipratropium-albuterol 3 ml IH Q6H #90 ml 01/28/21 prednisone 50 mg PO DAILY #5 tab 01/28/21 Allergies Allergy/AdvReac Type Severity Reaction Status Date / Time citalopram Allergy Unverified 01/21/21 13:53 oxycodone HCl [From Percocet] AdvReac Addiction Unverified 01/21/21 13:53 General Stated Complaint: SOB MOLLY: 3 Review of Systems All systems reviewed & are unremarkable except as noted in HPI and below PFSH Medical History Agoraphobia Biventricular implantable cardioverter-defibrillator (ICD) in situ Mode:DDD, Low rate 60bpm, Atrial lead: medtronic 5076, SN: [id number] 09/27/14; RV lead Medtronic [id number] SN: [id number] 09/27/14; LV lead Medtronic 4396, SN; [id number] 09/27/14 (updated 03/11/20) Depression History of alcohol abuse History of tobacco abuse LBBB (left bundle branch block) Nonischemic dilated cardiomyopathy Pacemaker Panic anxiety syndrome PTSD (post-traumatic stress disorder) Severe chronic obstructive pulmonary disease Systolic and diastolic CHF, chronic Social History Smoking/Tobacco Use Status: Former Tobacco Use Quit Date: 10/25/15 Pack-years: 120 Smoking risk assessment performed?: Yes Alcohol Intake: former Drug use: Never Do you feel safe at home: Yes Do you feel safe in your relationship?: Yes Additional Social history: lives alone Exam Narrative Exam Narrative: 1.Const: Well-nourished, Well-developed, appearing stated age 2.Eyes: PERRL, no conjunctival injection, and symmetrical lids. 3.ENT: Atraumatic external nose and ears. Moist MM. Neck: Symmetric, trachea midline, No thyromegaly. 4.CVS: +S1/S2, No murmurs or gallops. Peripheral pulses 2+ and equal in all extremities. Brisk capillary refill in all extremities. 5.RESP: Unlabored respiratory effort. Mild wheezes throughout. Diminished breath sounds throughout. 6.GI: Soft, Nontender/Nondistended, No hepatosplenomegaly. No guarding or rebound. 7.MSK: Normocephalic/Atraumatic, Extremities w/o deformity or ttp No cyanosis or clubbing, Normal movement of all extremities. No calf tenderness 8.Skin: Warm, Dry. No rashes or lesions. 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 Sensation grossly intact, no focal neurologic deficits. 10.Psych: (AAO) x3. Appropriate mood and affect Course Vital Signs Vital signs: Vital Signs Temperature 37.1 C 01/28/21 16:19 Pulse 116 H 01/28/21 16:19 Respiratory Rate 20 01/28/21 16:19 Blood Pressure 126/78 01/28/21 16:19 Pulse Oximetry 95 01/28/21 16:19 Temperature 37.1 C 01/28/21 16:19 Temperature Source Skin 01/28/21 16:19 Pulse 117 H 01/28/21 16:40 Respiratory Rate 20 01/28/21 16:40 Respiratory Effort 01/28/21 16:50 Blood Pressure 126/78 01/28/21 16:19 Blood Pressure Position Sitting 01/28/21 16:19 Pulse Oximetry 98 01/28/21 16:40 Oxygen Delivery Method Room Air 01/28/21 16:36 Oxygen Flow Rate 0 01/28/21 16:36 Pain Level 0 01/28/21 16:19
--- NOTE | 2021-01-28 17:44 | DI.VRAD_ITS ---
PROCEDURE INFORMATION: Exam: XR Chest Exam date and time: 01/28/2021 5:16 PM Age: 55 years old Clinical indication: Other: SOB, wheeze TECHNIQUE: Imaging protocol: XR of the chest Views: 1 view. COMPARISON: CR XR CHEST 2V PA LATERAL 01/21/2021 2:51 PM FINDINGS: Tubes, catheters and devices: A cardiac pacemaker is present. Lungs: The lungs are hyperinflated consistent with COPD. No new segmental or lobar consolidation is seen. Pleural spaces: Unremarkable. No pleural effusion. No pneumothorax. Heart/Mediastinum: Unremarkable. No cardiomegaly. Bones/joints: Unremarkable. IMPRESSION: 1. COPD. 2. No acute abnormality. Dictated and Authenticated by: Karlo Leahy MD. Ordering:DAMIAN Villeda MD
== END 2021-01-28 17:33 | disposition home or self-care (01) ==
PROVIDERS: Emergency Provider Student in an Organized Health Care Education/Training Program; PCP Nurse Practitioner Family
DX: J44.1 Chronic obstructive pulmonary disease with (acute) exacerbation (principal)
CPT/HCPCS: 93005; 94640; 96372; 99284; 71045; 93010; J2930; J7620

== ENCOUNTER 2021-03-18 16:40 | Outpatient (REF) | payer MEDICARE, SELFPAY ==
[2021-03-18 21:14] LABS: Anion Gap 7.9 mmol/L (3-11); BUN 16 mg/dL (7-18); CO2 30.1 mmol/L (21.0-32.0); Calcium 9.2 mg/dL (8.5-10.1); Chloride 105 mmol/L (98-107); Glucose 111 mg/dL (74-106); Potassium 4.7 mmol/L (3.5-5.1); Sodium 143 mmol/L (136-145); Vitamin B12 458 pg/mL (193-986)
[2021-03-18 21:23] LABS: HCT 44.1 % (40.0-50.0); HGB 14.8 g/dL (13.5-17.5); MCH 32.1 pg (27.0-33.0); MCHC 33.6 % (32.0-36.0); MCV 95.7 fL (80-95); Platelet Count 209 10^3/uL (130-400); RBC 4.61 10^6/uL (4.36-5.78); RDW 14.7 % (11.8-14.1); RDW-SD 51.8 fL
== END 2021-03-18 16:41 | disposition home or self-care (01) ==
LOC: NCHCN 16:40
PROVIDERS: PCP Nurse Practitioner Family; Visit Provider Nurse Practitioner Family
DX: R41.0 Disorientation, unspecified (principal); R41.3 Other amnesia; R42 Dizziness and giddiness
CPT/HCPCS: 80048; 85027; 82607; 84443

== ENCOUNTER 2021-04-28 23:15 | Inpatient (IN) | payer MEDICARE, SELFPAY ==
[2021-04-28 23:13] VITALS: BP 127/62; PULSE 100; RESP 18; TEMP 36.5; O2SAT 90
[2021-04-28 23:20] VITALS: RESP 19
--- NOTE | 2021-04-28 23:30 | DI.RAD_ITS ---
Exam(s) XR CHEST 2V PA LATERAL EXAM: XR CHEST 2V PA LATERAL CLINICAL HISTORY: ams, devandiana TECHNIQUE: 2D digital imaging was performed. COMPARISON: CR XR CHEST 2V PA LATERAL from 01/21/2021 FINDINGS: MEDIASTINUM: Normal. HEART: Normal. Cardiac pacing leads are stable in position. PULMONARY VASCULATURE: Normal. LUNGS: The lungs are hyperlucent with flattened diaphragms and hyperexpansion. The findings are sugg estive of underlying COPD. There are increased lung markings in the bases bilaterally. This may rep resent atelectasis, scarring or pneumonia. PLEURAL SPACE: No pleural effusion or pneumothorax. BONE:Within normal limits for the patient's age. OTHER FINDINGS:Normal. IMPRESSION: Increased lung markings in the lung bases. This may represent atelectasis, scarring or pneumonia. DATA REPOSITORY: RADIATION DOSE DELIVERED:
--- NOTE | 2021-04-28 23:30 | RT.EKG_ITS ---
APPROVED REPORT Exam: Resting ECG Reason for Exam: ams Patient Location: E HR:90 bpm ECG Measurements Heart Rate 90 AXIS NH 162 P 62 QRSd 144 QRS 244 QT 395 T 15 QTc 483 Conclusion Atrial-sensed ventricular-paced rhythm...ventricular pacing tracks p-waves Biventricular paced rhythm...non-simultaneous bi-vent pacing
--- NOTE | 2021-04-28 23:30 | DI.CT_ITS ---
Exam(s) CT HEAD WO EXAM: CT HEAD WO CLINICAL HISTORY: ams. TECHNIQUE: Imaging Protocol: Axial computed tomography images with coronal and sagittal reformatted images were created and reviewed COMPARISON: CT CT HEAD WO from 01/21/2021 FINDINGS: Ventricles and Extra axial spaces: Normal in size and morphology for the patient's age. Hemorrhage: None. Cerebral parenchyma: No acute territorial infarct. Midline shift: None. Brainstem/Cerebellum: Normal. Calvarium: Normal. Visualized Paranasal sinuses/Mastoids: Clear. Soft Tissues: Unremarkable. IMPRESSION: No acute intracranial process. RADIATION DOSE DELIVERED: 738.49mGy.cm Total DLP DATA REPOSITORY: All CT scans at this facility are submitted to the National Radiology Data Registry (NRDR) Dose Index Registry (DIR) with the [employer] ([employer]). RADIATION OPTIMIZATION: All CT scans at this facility use at least one of these dose optimization te chniques: automated exposure control; mA and/or kV adjustment per patient size (includes targeted exa ms where dose is matched to clinical indication); or iterative reconstruction.
[2021-04-28 23:40] LABS: BE (Venous) 4 mmol/L (-2-3); HCO3 (Venous) 30 mmol/L (23-28); O2 Sat (Venous) 91 %; TCO2 (Venous) 26 mmol/L (24-29); pCO2 (Venous) 56 mmHg (41-51); pH (Venous) 7.34 (7.31-7.41); pO2 (Venous) 61 mmHg
[2021-04-28 23:42] LABS: Abs Immature Grans 0.03 10^3/uL (0.0-0.06); Absolute Basophil Count 0.05 10^3/uL (0.0-0.2); Absolute Eosinophil Count 0.14 10^3/uL (0.0-0.7); Absolute Lymphocyte Count 1.23 10^3/uL (1.2-3.4); Absolute Monocyte Count 0.78 10^3/uL (0.1-0.8); Absolute Neutrophil Count 4.06 10^3/uL (1.2-6.7); Basophils % 0.8; Eosinophils % 2.2; HCT 51.3 % (40.0-50.0); HGB 16.5 g/dL (13.5-17.5); Immature Grans % 0.5; Lactate 1.1 mmol/L (0.6-1.4); Lymphocytes % 19.6; MCH 32.4 pg (27.0-33.0); MCHC 32.2 % (32.0-36.0); MCV 100.8 fL (80-95); MPV 10.9 fL (8.0-11.0); Monocytes % 12.4; Neutrophils % 64.5; Nucleated RBC 0 %; Platelet Count 177 10^3/uL (130-400); RBC 5.09 10^6/uL (4.36-5.78); RDW 14.4 % (11.8-14.1); RDW-SD 54.7 fL; WBC 6.29 10^3/uL (4.4-10.8)
--- NOTE | 2021-04-28 23:45 | ED.GENADUL_ITS ---
Discharge Plan Disposition Patient Disposition: [facility] INPATIENT Condition: Stable Discharge Details Chief Complaint: GenMedical Clinical Impression: AMS (altered mental status) Primary Care Provider: Lorrie Crespo ED Provider: Ronal Recinos Home Meds and New Rx's Prescriptions: No Action nitroglycerin 0.4 MG tablet, sublingual 0.4 mg Sublingual one every 5 mins. x3 Qty: 30 RF: 3 (DME) nebulizer and compressor Device See Rx Instructions .ROUTE .MEDSUPPLY Qty: 1 RF: 0 Narcan 4 mg/actuation spray,non-aerosol 4 mg intranasal Q2-3M PRNRF: 0 quetiapine [Seroquel] 400 mg tablet 500 mg PO HS RF: 0 fluticasone propion-salmeterol [Advair Diskus] 250-50 mcg/dose blister with d evice 1 inh inhalation BID RF: 0 hydrocodone-acetaminophen 5-325 mg tablet 1 tab PO Q8H PRNRF: 0 Trintellix 5 mg tablet 20 mg PO DAILY RF: 0 amitriptyline 25 mg tablet 50 mg PO QHS RF: 0 acetaminophen 325 mg capsule 325 mg PO ONCE PRNRF: 0 albuterol sulfate [Ventolin HFA] 90 mcg/actuation HFA aerosol inhaler 2 puff inhalation .4-6h PRNRF: 0 prednisone 20 mg tablet 40 mg PO DAILY RF: 0 tiotropium bromide 18 mcg capsule, w/inhalation device 1 cap inhalation DAILY RF: 0 montelukast 10 mg tablet 10 mg PO DAILY RF: 0 benztropine 1 mg tablet 1 mg PO HS Qty: 0 RF: 0 bupropion HCl 300 mg tablet extended release 24 hr 300 mg PO QAM Qty: 10 RF: 0 pravastatin 20 mg tablet 20 mg PO QHS Qty: 10 RF: 0 clonazepam 2 mg tablet 2 mg PO BID RF: 0 bupropion HCl 150 mg tablet extended release 24 hr 150 mg PO DAILY RF: 0 gabapentin [Neurontin] 600 mg tablet 800 mg PO TID RF: 0 fluticasone propion-salmeterol 115-21 mcg/actuation HFA aerosol inhaler 2 puff inhalation BID Qty: 12 RF: 0 doxycycline hyclate 100 mg tablet 100 mg PO BID Qty: 10 RF: 0 ipratropium-albuterol 0.5 mg-3 mg(2.5 mg base)/3 mL solution for nebulization 3 ml IH Q6H Qty: 90 RF: 0 magnesium hydroxide [Milk of Magnesia] 400 mg/5 mL Suspension 10 ml PO Q6H PRNRF: 0 diphenhydramine HCl [Benadryl] 25 mg Capsule 25 mg PO Q6H PRNRF: 0 calcium carbonate [Calcium Antacid] 200 mg calcium (500 mg) Tablet,Chewable 200 mg PO Q4H PRNRF: 0 docusate sodium 100 mg Tablet 100 mg PO BID PRNRF: 0 Trintellix 20 mg tablet RF: 0 Medical Decision Making This is a pleasant 55-year-old male with a past medical history of pacemaker, depression, chronic alcohol abuse, PTSD, COPD, cardiomyopathy, CHF, who presents today for evaluation of altered mental status. The patient has been at the care bed for the last 3 days and they noticed that he was somewhat altered, not acting himself. The symptoms persisted, the providers at the care bed were concerned and the patient was brought in by EMS for further evaluation. Patient has no complaints but that is secondary to his altered status. He follows commands, and is very pleasant, but does not know where he is at, what is going on, or who he has. No history of trauma. No other complaints at this time. No other modifying factors. Exam demonstrates very pleasant but notably altered male, he does follow commands. No clear focal neurologic deficits, no meningeal signs. Mild crackles in his lungs, 2 beat asterixis is noted in his hands. Concern is certainly for hyper ammonemia, however central intracranial etiology, bleed, is also of concern. Symptoms appear inconsistent with meningitis. Will evaluate for concerning etiologies, monitor closely and reassess. 1:16 AM Laboratory work-up is returned, no white count, bandemia or left shift. MCV is elevated, hemoglobin is normal though. VBG is notably unremarkable, PCO2 minimally elevated but not consistent as the cause for his altered mental status. Electrolytes are stable. Troponin normal, thyroid function good, alcohol level negative. Patient is still not urinated. CT scan of the head negative for acute process. Chest x-ray shows hazy opacities in the anterior lower lung zones, which could represent atelectasis pneumonia or prominent pericardial fat. Clinically with no fever, no white count, no left shift the patient seems unlikely to have notable pneumonia from a clinical perspective. He has no tachycardia either and certainly shows no signs of sepsis. Uncertain as to what the exact etiology of his altered mental status is, discussed the case with the hospitalist Dr. Mi, and one thought is that he was away from the care bed and may have not received his regular scheduled medications, then when he arrived to the care bed and began taking his regular medication again (of which she is on a notable amount) his body may have not been reequilibrated with this, and a now be bringing about his current state. Regardless patient is not safe for discharge back to a care bed at this time. Will recommend admission and MRI. No indication for LP at this time as he shows no clinical evidence of meningitis. He has no significant ascites and demonstrates no abdominal tenderness at this time, no indication for paracentesis. Discussed with Dr. Mi the chest x-ray findings, but at this time after discussion with a shared decision-making process will hold off on antibiotic therapy as he does not demonstrate clear evidence of infectious pneumonia clinically at all. I have extensively reviewed the treatment plan with the patient. I have addressed all patient concerns at this time. I have also discussed the plan with the admitting physician and they agree with the current assessment and plan and have agreed to assume responsibility for the patient. All parties demonstrate verbal understanding and agreement with our assessment and plan at this time. The documentation in this chart was dictated using [employer] dictation software. Please excuse any dictation errors. FINDINGS: Brain: There is no acute intracranial hemorrhage, mass effect or midline shift. No large acute territorial infarct identified. There are patchy regions of hypodensity in the periventricular and subcortical white matter, likely on the basis of chronic microvascular ischemic disease. Cerebral ventricles: The ventricles and sulci are prominent in size, which is at least in part due to global cerebral volume loss. Paranasal sinuses: Visualized sinuses are unremarkable. No fluid levels. Mastoid air cells: Visualized mastoid air cells are well aerated. Bones/joints: Unremarkable. No acute fracture. Soft tissues: Unremarkable. IMPRESSION: No acute intracranial hemorrhage, mass effect or midline shift. FINDINGS: Lungs: There are hazy opacities noted at the anterior the lower lung zones, which could represent atelectasis, pneumonia or prominent pericardial fat. Pleural spaces: No pleural effusion. No pneumothorax. Heart/Mediastinum: The heart appears slightly enlarged, which is at least in part due to AP technique. A defibrillator device is again noted in place. Bones/joints: Unremarkable. IMPRESSION: Hazy opacities at the anterior lower lung zones, which could represent atelectasis, pneumonia or prominent pericardial fat. Correlate with clinical findings. Thank you for allowing us to participate in the care of your patient. Dictated and Authenticated by: Nya Rousseau MD HPI General Date/Time Provider Initiated Documentation: 04/28/21 23:31 . HPI Narrative: This is a pleasant 55-year-old male with a past medical history of pacemaker, depression, chronic alcohol abuse, PTSD, COPD, cardiomyopathy, CHF, who presents today for evaluation of altered mental status. The patient has been at the care bed for the last 3 days and they noticed that he was somewhat altered, not acting himself. The symptoms persisted, the providers at the care bed were concerned and the patient was brought in by EMS for further evaluation. Patient has no complaints but that is secondary to his altered status. He follows commands, and is very pleasant, but does not know where he is at, what is going on, or who he has. No history of trauma. No other complaints at this time. No other modifying factors. Related Data Home Medications Medication Instructions Recorded Confirmed nitroglycerin 0.4 mg SUBLINGUAL one every 5 07/27/17 04/28/21 mins. x3 #30 tab-cap montelukast 10 mg PO DAILY 03/08/20 04/28/21 benztropine 1 mg PO HS #0 tab 03/17/20 04/28/21 bupropion HCl 300 mg PO QAM #10 tab 03/17/20 04/28/21 pravastatin 20 mg PO QHS #10 tab 03/17/20 04/28/21 clonazepam 2 mg PO BID 05/02/20 04/28/21 bupropion HCl 150 mg PO DAILY 01/21/21 04/28/21 gabapentin [Neurontin] 800 mg PO TID 01/21/21 04/28/21 doxycycline hyclate 100 mg PO BID #10 tab 01/23/21 fluticasone propion-salmeterol 2 puff INHALATION BID #12 g 01/23/21 ipratropium-albuterol 3 ml IH Q6H #90 ml 01/28/21 04/28/21 naloxone 4 mg/actuation nasal spray 4 mg INTRANASAL Q2-3M PRN 02/06/21 04/28/21 nebulizer and compressor #1 ea 02/06/21 acetaminophen 325 mg capsule 325 mg PO ONCE PRN 02/18/21 04/28/21 albuterol sulfate 90 mcg/actuation 2 puff INHALATION .4-6h PRN g 02/18/21 aerosol inhaler amitriptyline 25 mg tablet 50 mg PO QHS tab 02/18/21 04/28/21 fluticasone 250 mcg-salmeterol 50 1 inh INHALATION BID 02/18/21 04/28/21 mcg/dose blistr powdr for inhalation hydrocodone 5 mg-acetaminophen 325 1 tab PO Q8H PRN 02/18/21 04/28/21 mg tablet prednisone 20 mg tablet 40 mg PO DAILY tab 02/18/21 quetiapine 400 mg tablet 500 mg PO HS tab 02/18/21 04/28/21 tiotropium bromide 18 mcg capsule 1 cap INHALATION DAILY 02/18/21 04/28/21 with inhalation device vortioxetine 5 mg tablet 20 mg PO DAILY tab 02/18/21 04/28/21 calcium carbonate [Calcium Antacid] 200 mg PO Q4H PRN 04/28/21 04/28/21 diphenhydramine HCl [Benadryl] 25 mg PO Q6H PRN 04/28/21 04/28/21 docusate sodium 100 mg PO BID PRN 04/28/21 04/28/21 magnesium hydroxide [Milk of 10 ml PO Q6H PRN 04/28/21 04/28/21 Magnesia] vortioxetine [Trintellix] mg 04/28/21 Previous Rx's Medication Instructions Recorded nitroglycerin 0.4 mg SUBLINGUAL one every 5 07/27/17 mins. x3 #30 tab-cap benztropine 1 mg PO HS #0 tab 03/17/20 bupropion HCl 300 mg PO QAM #10 tab 03/17/20 pravastatin 20 mg PO QHS #10 tab 03/17/20 doxycycline hyclate 100 mg PO BID #10 tab 01/23/21 fluticasone propion-salmeterol 2 puff INHALATION BID #12 g 04/01/21 ipratropium-albuterol 3 ml IH Q6H #90 ml 01/28/21 Allergies Allergy/AdvReac Type Severity Reaction Status Date / Time citalopram Allergy Unverified 01/21/21 13:53 oxycodone HCl [From Percocet] AdvReac Addiction Unverified 01/21/21 13:53 General Stated Complaint: GenMedical MOLLY: 3 Review of Systems All systems reviewed & are unremarkable except as noted in HPI and below PFSH Medical History Acquired deformity of left hand Agoraphobia Anxiety Anxiety with depression Arthritis Biventricular implantable cardioverter-defibrillator (ICD) in situ Mode:DDD, Low rate 60bpm, Atrial lead: medtronic 5076, SN: [id number] 09/27/14; RV lead Medtronic 6935M SN: [id number] 09/27/14; LV lead Medtronic 4396, SN; [id number] 09/27/14 (updated 03/11/20) BPH (benign prostatic hyperplasia) Cardiomyopathy Chest pain CHF (congestive heart failure) Chronic pain syndrome Cyst Depression Diabetes Diarrhea Dizziness Erectile dysfunction Fatigue Hallucination Hand paresthesia Heart disease History of alcohol abuse History of suicidal ideation History of tobacco abuse Hyperlipidemia Impacted ear wax LBBB (left bundle branch block) Lung disease Metacarpophalangeal joint pain Nonischemic dilated cardiomyopathy Pacemaker Pain in right hip Panic anxiety syndrome PTSD (post-traumatic stress disorder) Severe chronic obstructive pulmonary disease Skin lesion Systolic and diastolic CHF, chronic Tobacco use Surgical History Status post biventricular pacemaker Family History Mother , 2008 COPD (chronic obstructive pulmonary disease) Social History Smoking/Tobacco Use Status: Former Tobacco Use Quit Date: 10/25/15 Pack-years: 120 Smoking risk assessment performed?: Yes Alcohol Intake: former Drug use: Never Do you feel safe at home: Yes Do you feel safe in your relationship?: Yes Additional Social history: lives alone Exam Narrative Exam Narrative: 1.Const: Well-nourished, Well-developed, appearing stated age 2.Eyes: PERRL, no conjunctival injection, and symmetrical lids. 3.ENT: Atraumatic external nose and ears. Moist MM. Neck: Symmetric, trachea midline, No thyromegaly. Patient demonstrates good movement of cervical neck. There is no nuchal rigidity, no nuchal tenderness. Patient is able to flex the neck without any difficulty or significant pain. Negative Kernig's and Brudzinski sign. 4.CVS: +S1/S2, No murmurs or gallops. Peripheral pulses 2+ and equal in all extremities. Brisk capillary refill in all extremities. 5.RESP: Unlabored respiratory effort. Clear to auscultation bilaterally. No wheezes rales or rhonchi 6.GI: Soft, Nontender/Nondistended, No hepatosplenomegaly. No guarding or rebound. Mild bloating, but bedside ultrasound shows no evidence of ascites of significance. No tenderness. 7.MSK: Normocephalic/Atraumatic, Extremities w/o deformity or ttp No cyanosis or clubbing, Normal movement of all extremities. 2 beat asterixis is present. 8.Skin: Warm, Dry. No rashes or lesions. 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 Sensation grossly intact, no focal neurologic deficits. 10.Psych: (AAO) x0, notably altered, GCS 14. Course Vital Signs Vital signs: Vital Signs Temperature 36.5 C 04/28/21 23:13 Pulse 100 H 04/28/21 23:13 Respiratory Rate 18 04/28/21 23:13 Blood Pressure 127/62 04/28/21 23:13 Pulse Oximetry 90 L 04/28/21 23:13 Temperature 36.5 C 04/28/21 23:13 Pulse 100 H 04/28/21 23:13 Respiratory Rate 19 04/28/21 23:20 Respiratory Effort 04/28/21 23:20 Blood Pressure 127/62 04/28/21 23:13 Pulse Oximetry 90 L 04/28/21 23:13 Oxygen Delivery Method Room Air 04/28/21 23:13 Oxygen Flow Rate 0 04/28/21 23:13 Pain Level 0 04/28/21 23:13 Lab/Test Results Lab/Test Results: Laboratory Tests Range/Units 04/28/21 04/28/21 04/28/21 23:32 23:32 23:32 WBC (4.4-10.8) 10^3/uL 6.29 RBC (4.36-5.78) 10^6/uL 5.09 Hgb (13.5-17.5) g/dL 16.5 Hct (40.0-50.0) % 51.3 H MCV (80-95) fL 100.8 H MCH (27.0-33.0) pg 32.4 MCHC (32.0-36.0) % 32.2 RDW (11.8-14.1) % 14.4 H Plt Count (130-400) 10^3/uL 177 MPV (8.0-11.0) fL 10.9 Immature Gran % 0.5 Neutrophils % 64.5 Lymphocytes % 19.6 Monocytes % 12.4 Eosinophils % 2.2 Basophils % 0.8 Nucleated RBC % % 0 Absolute Neutrophils (1.2-6.7) 10^3/uL 4.06 Absolute Lymphocytes (1.2-3.4) 10^3/uL 1.23 Absolute Monocytes (0.1-0.8) 10^3/uL 0.78 Absolute Eosinophils (0.0-0.7) 10^3/uL 0.14 Absolute Basophils (0.0-0.2) 10^3/uL 0.05 VBG pH (7.31-7.41) 7.34 VBG pCO2 (41-51) mmHg 56 H VBG pO2 mmHg 61 VBG HCO3 (23-28) mmol/L 30 H VBG Total CO2 (24-29) mmol/L 26 VBG O2 Saturation % 91 VBG Base Excess (-2-3) mmol/L 4 H VBG Lactate (0.6-1.4) mmol/L 1.1
[2021-04-28 23:51] LABS: Ammonia 19 umol/L (11-32)
[2021-04-29] VITALS (16 sets, daily range): BP systolic 100–135; BP diastolic 69–82; PULSE 76–104; RESP 2–21; TEMP 36.4–37.3; O2SAT 90–99
[2021-04-29 00:09] LABS: ALT 38 U/L (16-63); AST 20 U/L (15-37); Albumin 3.6 g/dL (3.4-5.0); Alkaline Phosphatase 67 U/L (46-116); Anion Gap 5.4 mmol/L (3-11); BUN 15 mg/dL (7-18); Bilirubin, Total 0.3 mg/dL (0.2-1.0); CO2 29.6 mmol/L (21.0-32.0); CREATININE 1.1 mg/dL (0.70-1.30); Calcium 8.8 mg/dL (8.5-10.1); Chloride 108 mmol/L (98-107); Glucose 121 mg/dL (74-106); Potassium 4.4 mmol/L (3.5-5.1); Sodium 143 mmol/L (136-145); TSH (W/Ref FT4) 2.78 uIU/mL (0.36-3.74); Total Protein 6.7 g/dL (6.4-8.2)
[2021-04-29 00:14] LABS: ETHANOL BLOOD < 3.0 mg/dL (<3); Troponin I < 0.05 ng/mL (<0.06)
[2021-04-29 00:35] LABS: PTT Activated 24.5 sec (21.0-27.5); Prothrombin Time 9.9 sec (9.3-11.0)
--- NOTE | 2021-04-29 00:37 | DI.VRAD_ITS ---
PROCEDURE INFORMATION: Exam: CT Head Without Contrast Exam date and time: 04/28/2021 11:34 PM Age: 55 years old Clinical indication: Altered mental status/memory loss; Confusion or disorientation; Patient HX: AMS TECHNIQUE: Imaging protocol: Computed tomography of the head without contrast. Radiation optimization: All CT scans at this facility use at least one of these dose optimization techniques: automated exposure control; mA and/or kV adjustment per patient size (includes targeted exams where dose is matched to clinical indication); or iterative reconstruction. Other technique: STROKE PROTOCOL was implemented. COMPARISON: CT HEAD WO 01/21/2021 2:43 PM FINDINGS: Brain: There is no acute intracranial hemorrhage, mass effect or midline shift. No large acute territorial infarct identified. There are patchy regions of hypodensity in the periventricular and subcortical white matter, likely on the basis of chronic microvascular ischemic disease. Cerebral ventricles: The ventricles and sulci are prominent in size, which is at least in part due to global cerebral volume loss. Paranasal sinuses: Visualized sinuses are unremarkable. No fluid levels. Mastoid air cells: Visualized mastoid air cells are well aerated. Bones/joints: Unremarkable. No acute fracture. Soft tissues: Unremarkable. IMPRESSION: No acute intracranial hemorrhage, mass effect or midline shift. ASSESSMENT: ASPECTS (Jennifer Stroke Program Early CT Score) is 10. Dictated and Authenticated by: Nya Alcala MD. Ordering:DAMIAN Villeda MD
--- NOTE | 2021-04-29 00:39 | W.PM.HP.N ---
Date of service: 04/29/21 Time of Service: 00:40 Assessment and Plan Assessment and plan (1) Lethargy: Status: Acute Assessment and plan: Lethargy, non-specific. This has the general look of a toxic/metabolic process. I cannot as yet assign a specific cause, but I do wonder whether there may be a cumulative toxic effect of his usual meds, brought out by their being reliably administered at the shelter -- the speculation being that he may not have been so taking them on his own. At any rate I would favor close observation, holding all potentially psychoactive meds for the night, and reassess in AM.Will also obtain UDS. The mild respiratory acidosis is noted, as mentioned above c/w known COPD, though I do not see a prior, but in any case not such as to account for his lethargy. Will treat wheezing with scheduled Duonebs for now. History of Present Illness History of Present Illness Chief Complaint: altered mental status Narrative: 55 male with severe COPD, CHF, s/p AICD, alcohol abuse and multiple psychiatric diagnoses -- was d/c'ed from Care bed 04/18-04/25, returned 04/26, since has been noted to be altered from baseline, more lethargic, and worsening, so was sent for eval tonight. In ER w/u impressively unrevealing, including normal white count, mild respiratory acidosis c/w known COPD, negative head CT and CXR and essentially unremarkable labs; note no UDS yet obtained but patient has no access to meds or substances at facility. Due to clear change in status he is admitted for further eval and ,management. Review of Systems Unobtainable due to mental status [facility] History Acquired deformity of left hand Agoraphobia Anxiety Anxiety with depression Arthritis Biventricular implantable cardioverter-defibrillator (ICD) in situ Mode:DDD, Low rate 60bpm, Atrial lead: medtronic 5076, SN: [id number] 09/27/14; RV lead Medtronic 6935M SN: [id number] 09/27/14; LV lead Medtronic 4396, SN; [id number] 09/27/14 (updated 03/11/20) BPH (benign prostatic hyperplasia) Cardiomyopathy Chest pain CHF (congestive heart failure) Chronic pain syndrome Cyst Depression Diabetes Diarrhea Dizziness Erectile dysfunction Fatigue Hallucination Hand paresthesia Heart disease History of alcohol abuse History of suicidal ideation History of tobacco abuse Hyperlipidemia Impacted ear wax LBBB (left bundle branch block) Lung disease Metacarpophalangeal joint pain Nonischemic dilated cardiomyopathy Pacemaker Pain in right hip Panic anxiety syndrome PTSD (post-traumatic stress disorder) Severe chronic obstructive pulmonary disease Skin lesion Systolic and diastolic CHF, chronic Tobacco use Surgical History Status post biventricular pacemaker Family History Mother , 2008 COPD (chronic obstructive pulmonary disease) Social History Smoking/Tobacco Use Status: Former Tobacco Use Quit Date: 10/25/15 Pack-years: 120 Smoking risk assessment performed?: Yes Alcohol Intake: former Drug use: Never Do you feel safe at home: Yes Do you feel safe in your relationship?: Yes Additional Social history: lives alone Meds Allergies and Home Medications Allergies Allergy/AdvReac Type Severity Reaction Status Date / Time citalopram Allergy Unverified 01/21/21 13:53 oxycodone HCl [From Percocet] AdvReac Addiction Unverified 01/21/21 13:53 Home Medications Medication Instructions Recorded Confirmed Type nitroglycerin 0.4 mg SUBLINGUAL one every 5 07/27/17 04/28/21 Rx mins. x3 #30 tab-cap montelukast 10 mg PO DAILY 03/08/20 04/28/21 History benztropine 1 mg PO HS #0 tab 03/17/20 04/28/21 Rx bupropion HCl 300 mg PO QAM #10 tab 03/17/20 04/28/21 Rx pravastatin 20 mg PO QHS #10 tab 03/17/20 04/28/21 Rx clonazepam 2 mg PO BID 05/02/20 04/28/21 History bupropion HCl 150 mg PO DAILY 01/21/21 04/28/21 History gabapentin [Neurontin] 800 mg PO TID 01/21/21 04/28/21 History ipratropium-albuterol 3 ml IH Q6H #90 ml 01/28/21 04/28/21 Rx naloxone 4 mg/actuation nasal spray 4 mg INTRANASAL Q2-3M PRN 02/06/21 04/28/21 History acetaminophen 325 mg capsule 325 mg PO ONCE PRN 02/18/21 04/28/21 History amitriptyline 25 mg tablet 50 mg PO QHS tab 02/18/21 04/28/21 History fluticasone 250 mcg-salmeterol 50 1 inh INHALATION BID 02/18/21 04/28/21 History mcg/dose blistr powdr for inhalation hydrocodone 5 mg-acetaminophen 325 1 tab PO Q8H PRN 02/18/21 04/28/21 History mg tablet quetiapine 400 mg tablet 400 mg PO HS tab 02/18/21 04/29/21 History tiotropium bromide 18 mcg capsule 1 cap INHALATION DAILY 02/18/21 04/28/21 History with inhalation device vortioxetine 5 mg tablet 20 mg PO DAILY tab 02/18/21 04/28/21 History calcium carbonate [Calcium Antacid] 200 mg PO Q4H PRN 04/28/21 04/28/21 History diphenhydramine HCl [Benadryl] 25 mg PO Q6H PRN 04/28/21 04/28/21 History docusate sodium 100 mg PO BID PRN 04/28/21 04/28/21 History magnesium hydroxide [Milk of 10 ml PO Q6H PRN 04/28/21 04/28/21 History Magnesia] quetiapine 100 mg PO QHS 04/29/21 04/29/21 History Exam Narrative Exam Narrative: 127/62, 100, 36.5, 18, 90-99% RA. HEENT atraumatic; neck supple; lungs wheezing, heart RRR; abdomen soft and NT; extremities w/o edema; neuro lethargic and sleepy, but arouses to loud voice and able to follow one step commands, speech is mumbling, I cannot follow, PERRL, EOMI, no facial asymmetry, moves all 4s Results Labs Result diagrams: 04/29/21 08:19 04/29/21 08:19 Labs: Laboratory Results - last 24 hr 04/28/21 04/28/21 04/28/21 23:32 23:32 23:32 WBC RBC Hgb Hct MCV MCH MCHC RDW Plt Count MPV Immature Gran % Neutrophils % Lymphocytes % Monocytes % Eosinophils % Basophils % Nucleated RBC % Absolute Neutrophils Absolute Lymphocytes Absolute Monocytes Absolute Eosinophils Absolute Basophils PT INR APTT VBG pH VBG pCO2 VBG pO2 VBG HCO3 VBG Total CO2 VBG O2 Saturation VBG Base Excess VBG Lactate 1.1 Sodium 143 Potassium 4.4 Chloride 108 H Carbon Dioxide 29.6 Anion Gap 5.4 BUN 15 Creatinine 1.1 Estimated GFR/1.73 m2 >= 60.00 Glucose 121 H Calcium 8.8 Total Bilirubin 0.3 AST 20 ALT 38 Alkaline Phosphatase 67 Ammonia 19 Troponin I < 0.05 Total Protein 6.7 Albumin 3.6 TSH 2.78 Ethyl Alcohol < 3.0 04/28/21 04/28/21 04/28/21 23:32 23:32 23:55 WBC 6.29 RBC 5.09 Hgb 16.5 Hct 51.3 H MCV 100.8 H MCH 32.4 MCHC 32.2 RDW 14.4 H Plt Count 177 MPV 10.9 Immature Gran % 0.5 Neutrophils % 64.5 Lymphocytes % 19.6 Monocytes % 12.4 Eosinophils % 2.2 Basophils % 0.8 Nucleated RBC % 0 Absolute Neutrophils 4.06 Absolute Lymphocytes 1.23 Absolute Monocytes 0.78 Absolute Eosinophils 0.14 Absolute Basophils 0.05 PT 9.9 INR 1.0 APTT 24.5 VBG pH 7.34 VBG pCO2 56 H VBG pO2 61 VBG HCO3 30 H VBG Total CO2 26 VBG O2 Saturation 91 VBG Base Excess 4 H VBG Lactate Sodium Potassium Chloride Carbon Dioxide Anion Gap BUN Creatinine Estimated GFR/1.73 m2 Glucose Calcium Total Bilirubin AST ALT Alkaline Phosphatase Ammonia Troponin I Total Protein Albumin TSH Ethyl Alcohol Last Vital Signs Temp 36.5 C 04/28/21 23:13 Pulse 100 H 04/28/21 23:13 Resp 19 04/28/21 23:20 BP 127/62 04/28/21 23:13 Pulse Ox 90 L 04/28/21 23:13
--- NOTE | 2021-04-29 01:08 | DI.VRAD_ITS ---
PROCEDURE INFORMATION: Exam: XR Chest Exam date and time: 04/28/2021 11:34 PM Age: 55 years old Clinical indication: Prior surgery; Surgery date: 6+ months; Surgery type: Pacemaker; Patient HX: MIGUE Kang TECHNIQUE: Imaging protocol: XR of the chest. Views: 2 views. COMPARISON: CR XR PORTABLE CHEST AP 01/28/2021 5:13 PM FINDINGS: Lungs: There are hazy opacities noted at the anterior the lower lung zones, which could represent atelectasis, pneumonia or prominent pericardial fat. Pleural spaces: No pleural effusion. No pneumothorax. Heart/Mediastinum: The heart appears slightly enlarged, which is at least in part due to AP technique. A defibrillator device is again noted in place. Bones/joints: Unremarkable. IMPRESSION: Hazy opacities at the anterior lower lung zones, which could represent atelectasis, pneumonia or prominent pericardial fat. Correlate with clinical findings. Dictated and Authenticated by: Nya Alcala MD. Ordering:DAMIAN Villeda MD
[2021-04-29 01:45] LABS: Source Nasal/Nares
[2021-04-29] MEDS: Lactated Ringers 1,000 ML 80 ML IV (02:19)
[2021-04-29] MEDS: Albuterol/Ipratropium 3 ML UPD VIAL UPD ×4 (02:29→18:00)
[2021-04-29 02:34] LABS: COVID-19 PCR Negative (Negative)
[2021-04-29 08:26] LABS: Abs Immature Grans 0.02 10^3/uL (0.0-0.06); Absolute Basophil Count 0.06 10^3/uL (0.0-0.2); Absolute Eosinophil Count 0.17 10^3/uL (0.0-0.7); Absolute Lymphocyte Count 1.16 10^3/uL (1.2-3.4); Absolute Monocyte Count 0.77 10^3/uL (0.1-0.8); Absolute Neutrophil Count 5.31 10^3/uL (1.2-6.7); Basophils % 0.8; Eosinophils % 2.3; HCT 53.8 % (40.0-50.0); HGB 17.4 g/dL (13.5-17.5); Immature Grans % 0.3; Lymphocytes % 15.5; MCH 32.5 pg (27.0-33.0); MCHC 32.3 % (32.0-36.0); MCV 100.4 fL (80-95); MPV 10.7 fL (8.0-11.0); Monocytes % 10.3; Neutrophils % 70.8; Nucleated RBC 0 %; Platelet Count 169 10^3/uL (130-400); RBC 5.36 10^6/uL (4.36-5.78); RDW 14.6 % (11.8-14.1); RDW-SD 55.3 fL; WBC 7.49 10^3/uL (4.4-10.8)
[2021-04-29 08:44] LABS: Anion Gap 10.2 mmol/L (3-11); BUN 13 mg/dL (7-18); CO2 26.8 mmol/L (21.0-32.0); CREATININE 0.9 mg/dL (0.70-1.30); Calcium 8.9 mg/dL (8.5-10.1); Chloride 107 mmol/L (98-107); Glucose 107 mg/dL (74-106); Potassium 4.1 mmol/L (3.5-5.1); Sodium 144 mmol/L (136-145)
[2021-04-29 09:29] LABS: *AMPHETAMINES SCREEN URINE Negative (Negative); *BARBITURATES SCREEN URINE Negative (Negative); *BENZODIAZEPINES SCREEN URINE Positive (Negative); Cannabinoids THC Negative (Negative); Cocaine Screen,Urine Negative (Negative); METHADONE URINE SCREEN Negative (Negative); OPIATES URINE SCREEN Positive (Negative)
[2021-04-29 09:30] LABS: Tricyclic Antidepressants Negative (Negative)
[2021-04-29] MEDS: Albuterol 2.5 MG/3 ML INH SOLN VIAL UPD ×2 (11:53→14:04)
--- NOTE | 2021-04-29 13:53 | NUR.NOTE ---
Nursing Note: patient c/o difficulty breathing with O2 sat at 91% room air. Lungs are congested with scattered wheezing and diminished sounds. Duoneb nebulizer was administered with minimum improvement. Charge nurse was notified, RT requested
[2021-04-29] MEDS: buPROPion-XL 150 MG TABCR 450 MG PO (15:16)
[2021-04-29] MEDS: Gabapentin 800 MG TAB PO ×2 (15:16→20:08)
[2021-04-29] MEDS: clonazePAM 1 MG TAB 2 MG PO ×2 (15:16→20:09)
--- NOTE | 2021-04-29 15:58 | PGE_ITS ---
Date of Service Date of service: 04/29/21 Time of Service: 15:58 Assessment and Plan Assessment and plan (1) COPD exacerbation: Status: Acute Assessment and plan: Start systemic steroids. Continue scheduled and prn nebs, resume home symbicort, add antitussives. IS/acapella. Obtain sputum culture. Check procalcitonin - ?indication for antibiotics. (2) Acute on chronic systolic CHF (congestive heart failure): Status: Acute Assessment and plan: EF 45-50% per echo in 02/2020. No echo is available at [facility] this week. Will look for records at [facility]. He is s/p AICD. D/c IVF. Start lasix. Monitor I/O's, daily weights. (3) Musculoskeletal chest pain: Status: Chronic Assessment and plan: No ACS. Continue home meds (4) AMS (altered mental status): Status: Resolved Assessment and plan: Will monitor with resumption of home medications. (5) Diabetes: Status: Chronic Assessment and plan: mentioned in patient's chart. No A1C on file. BG this am was 107. Patient is getting started on systemic steroids and may require coverage. For now, we will place him on carb consistent diet. (6) Discharge planning issues: Status: Acute Assessment and plan: Full code Admit to inpatient status (7) DVT prophylaxis: Status: Acute Assessment and plan: SC lovenox Subjective Subjective Interval history since last seen: Ms Gay states he is short of breath. He cannot answer when he started to feel this way, he is very vague about it. Endorses substernal chest pain, reproducible with palpation. Denies dizziness, nausea. States cough is nonproductive. Exam Narrative Exam Narrative: General: Pleasant middle-aged male, A&Ox3, does appear mildly dyspneic HEENT: EOMI, MMM Heart: RRR, no m/r/g Lungs: Rhonchi and rales on expiration B Abdomen: soft, nontender, nondistended Extremities: no edema BLE's Objective Last Vital Signs Temp 37.3 C 04/29/21 12:18 Pulse 104 H 04/29/21 14:04 Resp 21 04/29/21 14:04 BP 124/82 04/29/21 12:18 Pulse Ox 95 04/29/21 14:04 Laboratory Results - last 24 hr 04/28/21 04/28/21 04/28/21 23:32 23:32 23:32 WBC RBC Hgb Hct MCV MCH MCHC RDW Plt Count MPV Immature Gran % Neutrophils % Lymphocytes % Monocytes % Eosinophils % Basophils % Nucleated RBC % Absolute Neutrophils Absolute Lymphocytes Absolute Monocytes Absolute Eosinophils Absolute Basophils PT INR APTT VBG pH VBG pCO2 VBG pO2 VBG HCO3 VBG Total CO2 VBG O2 Saturation VBG Base Excess VBG Lactate 1.1 Sodium 143 Potassium 4.4 Chloride 108 H Carbon Dioxide 29.6 Anion Gap 5.4 BUN 15 Creatinine 1.1 Estimated GFR/1.73 m2 >= 60.00 Glucose 121 H Calcium 8.8 Magnesium Total Bilirubin 0.3 AST 20 ALT 38 Alkaline Phosphatase 67 Ammonia 19 Troponin I < 0.05 Total Protein 6.7 Albumin 3.6 TSH 2.78 Urine Opiates Screen Urine Methadone Screen Ur Barbiturates Screen Ur Tricyclics Screen Ur Amphetamines Screen U Benzodiazepines Scrn Urine Cocaine Screen Ur THC Screen Ethyl Alcohol < 3.0 COVID-19 Source SARS-CoV-2 (PCR) 04/28/21 04/28/21 04/28/21 23:32 23:32 23:55 WBC 6.29 RBC 5.09 Hgb 16.5 Hct 51.3 H MCV 100.8 H MCH 32.4 MCHC 32.2 RDW 14.4 H Plt Count 177 MPV 10.9 Immature Gran % 0.5 Neutrophils % 64.5 Lymphocytes % 19.6 Monocytes % 12.4 Eosinophils % 2.2 Basophils % 0.8 Nucleated RBC % 0 Absolute Neutrophils 4.06 Absolute Lymphocytes 1.23 Absolute Monocytes 0.78 Absolute Eosinophils 0.14 Absolute Basophils 0.05 PT 9.9 INR 1.0 APTT 24.5 VBG pH 7.34 VBG pCO2 56 H VBG pO2 61 VBG HCO3 30 H VBG Total CO2 26 VBG O2 Saturation 91 VBG Base Excess 4 H VBG Lactate Sodium Potassium Chloride Carbon Dioxide Anion Gap BUN Creatinine Estimated GFR/1.73 m2 Glucose Calcium Magnesium Total Bilirubin AST ALT Alkaline Phosphatase Ammonia Troponin I Total Protein Albumin TSH Urine Opiates Screen Urine Methadone Screen Ur Barbiturates Screen Ur Tricyclics Screen Ur Amphetamines Screen U Benzodiazepines Scrn Urine Cocaine Screen Ur THC Screen Ethyl Alcohol COVID-19 Source SARS-CoV-2 (PCR) 04/29/21 04/29/21 04/29/21 01:30 08:19 08:19 WBC 7.49 RBC 5.36 Hgb 17.4 Hct 53.8 H MCV 100.4 H MCH 32.5 MCHC 32.3 RDW 14.6 H Plt Count 169 MPV 10.7 Immature Gran % 0.3 Neutrophils % 70.8 Lymphocytes % 15.5 Monocytes % 10.3 Eosinophils % 2.3 Basophils % 0.8 Nucleated RBC % 0 Absolute Neutrophils 5.31 Absolute Lymphocytes 1.16 L Absolute Monocytes 0.77 Absolute Eosinophils 0.17 Absolute Basophils 0.06 PT INR APTT VBG pH VBG pCO2 VBG pO2 VBG HCO3 VBG Total CO2 VBG O2 Saturation VBG Base Excess VBG Lactate Sodium 144 Potassium 4.1 Chloride 107 Carbon Dioxide 26.8 Anion Gap 10.2 BUN 13 Creatinine 0.9 Estimated GFR/1.73 m2 >= 60.00 Glucose 107 H Calcium 8.9 Magnesium 2.0 Total Bilirubin AST ALT Alkaline Phosphatase Ammonia Troponin I Total Protein Albumin TSH Urine Opiates Screen Urine Methadone Screen Ur Barbiturates Screen Ur Tricyclics Screen Ur Amphetamines Screen U Benzodiazepines Scrn Urine Cocaine Screen Ur THC Screen Ethyl Alcohol COVID-19 Source Nasal/Nares SARS-CoV-2 (PCR) Negative 04/29/21 08:47 WBC RBC Hgb Hct MCV MCH MCHC RDW Plt Count MPV Immature Gran % Neutrophils % Lymphocytes % Monocytes % Eosinophils % Basophils % Nucleated RBC % Absolute Neutrophils Absolute Lymphocytes Absolute Monocytes Absolute Eosinophils Absolute Basophils PT INR APTT VBG pH VBG pCO2 VBG pO2 VBG HCO3 VBG Total CO2 VBG O2 Saturation VBG Base Excess VBG Lactate Sodium Potassium Chloride Carbon Dioxide Anion Gap BUN Creatinine Estimated GFR/1.73 m2 Glucose Calcium Magnesium Total Bilirubin AST ALT Alkaline Phosphatase Ammonia Troponin I Total Protein Albumin TSH Urine Opiates Screen Positive A Urine Methadone Screen Negative Ur Barbiturates Screen Negative Ur Tricyclics Screen Negative Ur Amphetamines Screen Negative U Benzodiazepines Scrn Positive A Urine Cocaine Screen Negative Ur THC Screen Negative Ethyl Alcohol COVID-19 Source SARS-CoV-2 (PCR)
[2021-04-29] MEDS: methylPREDNISolone SUCC 125 MG VIAL IVP (16:14)
[2021-04-29] MEDS: Furosemide 20 MG/2 ML VIAL IVP (16:15)
[2021-04-29] MEDS: Budesonide/Formoterol 160/4.5 6 GM 60 PUFF INH IH ×2 (16:16→21:41)
--- NOTE | 2021-04-29 16:21 | CHAPLAIN ---
William said he was home sleeping, and then woke up here and doesn't know how he got here. According to ED notes, he was at the Care Bed, and was transferred here because he was not acting like himself. William didn't mention the Care Bed to me, but said he has been unable to piece together what happened to him and why he is here. He said he left his phone at home. I will continue to visit.
[2021-04-29 16:44] LABS: NT-proBNP 65 pg/mL (<300)
[2021-04-29 16:48] LABS: Procalcitonin < 0.1 ng/mL
[2021-04-29] MEDS: Enoxaparin 40 MG/0.4 ML SYR SC (18:00)
--- NOTE | 2021-04-29 18:17 | PDOC.CMIN ---
- If Service Date Differs Date of service: 04/29/21 Time of Service: 18:17 Care Management Initial Assess REASON FOR HOSPITALIZATION:: Lethargy PAST MEDICAL HISTORY/PAST SURGICAL HISTORY:: Medical History. Acquired deformity of left hand. Agoraphobia. Anxiety. Anxiety with depression. Arthritis. Biventricular implantable cardioverter-defibrillator (ICD) in situ. Mode:DDD, Low rate 60bpm, Atrial lead: medtronic 5076, SN: [id number] 09/27/14; RV lead Medtronic 6935M SN: [id number] 09/27/14; LV lead Medtronic 4396, SN; [id number] 09/27/14 (updated 03/11/20). BPH (benign prostatic hyperplasia). Cardiomyopathy. Chest pain. CHF (congestive heart failure). Chronic pain syndrome. Cyst. Depression. Diabetes. Diarrhea. Dizziness. Erectile dysfunction. Fatigue. Hallucination. Hand paresthesia. Heart disease. History of alcohol abuse. History of suicidal ideation. History of tobacco abuse. Hyperlipidemia. Impacted ear wax. LBBB (left bundle branch block). Lung disease. Metacarpophalangeal joint pain. Nonischemic dilated cardiomyopathy. Pacemaker. Pain in right hip. Panic anxiety syndrome. PTSD (post-traumatic stress disorder). Severe chronic obstructive pulmonary disease. Skin lesion. Systolic and diastolic CHF, chronic. Tobacco use. Surgical History. Status post biventricular pacemaker PREVIOUS FUNCTIONAL STATUS/SOCIAL/FAMILY SUPPORTS:: William lives alone in a two story house in [place]. He is disabled and spends his time fishing, hunting, and woodworking. William shares he has a few friends he sees occasionally and states he has family nearby but is estranged from them. William reports he is independent with his ADLs, drives, and takes care of his home, but adds it is not as clean as it should be. He states he would love to have someone cook his meals and help clean his house. He is currently staying at the [facility] for stabilization prior to returning home. CURRENT FUNCTIONAL STATUS:: William was sitting up on the edge of his bed when MIRANDA met with him. He reported that he is feeling better today than when he arrived. He stated that he feels that his respiratory issues are what brought him in. MIRANDA obtained a medication list from [facility], at MD request. Per report, William will remain at [facility] for COPD exacerbation, and will be started on systemic steroids. CM will communicate with Davina [facility], regarding his return to the Care Bed, if he does not require a prolonged hospitalization. CM will continue to follow. ADVANCE DIRECTIVES:: None on file. CM will offer forms. Has patient been provided with info about the portal/API?: Yes Did the patient sign up for the portal?: No CODE STATUS:: Full Code INSURANCE COVERAGE / FINANCIAL ISSUES:: MCR CURRENT HOME/COMMUNITY SERVICES/EQUIPMENT:: [employer] PRESENTATION OPERATOR PRIMARY CARE PHYSICIAN:: Lorrie Crespo POTENTIAL DISCHARGE NEEDS:: Coordinated return to the Care Bed vs Home with services. Follow up appointments. PATIENT/FAMILY EDUCATION NEEDS:: Review discharge instructions regarding activity levels and medications, discussion of self care needs including ask me three. ANTICIPATED BARRIERS TO DISCHARGE:: None identified. TRANSPORTATION:: Depending on disposition, likely [facility] vs [facility] PLAN:: William will likely return to the [facility] Care Bed vs return home with services. He will transport via [facility] vs RCT. He will follow up with his PCP and discharge plan of care. CM will continue to follow.
[2021-04-29] MEDS: Pravastatin 20 MG TAB PO (20:07)
[2021-04-29] MEDS: predniSONE 20 MG TAB 60 MG PO (20:08)
[2021-04-29] MEDS: guaiFENesin 600 MG TABCR PO (20:08)
[2021-04-29] MEDS: Acetaminophen 325 MG TAB 650 MG PO (20:12)
[2021-04-29] MEDS: Amitriptyline 25 MG TAB 50 MG PO (21:42)
[2021-04-29] MEDS: QUEtiapine 100 MG TAB 200 MG PO (21:42)
[2021-04-29] MEDS: Benztropine 1 MG TAB PO (21:43)
[2021-04-29] MEDS: QUEtiapine 300 MG TAB PO (21:44)
[2021-04-30] VITALS (12 sets, daily range): BP systolic 112–132; BP diastolic 74–81; PULSE 77–106; RESP 4–20; TEMP 36–36.9; O2SAT 89–96
[2021-04-30] MEDS: Albuterol/Ipratropium 3 ML UPD VIAL UPD ×4 (05:38→18:33)
[2021-04-30 07:07] LABS: Abs Immature Grans 0.04 10^3/uL (0.0-0.06); Absolute Basophil Count 0.02 10^3/uL (0.0-0.2); Absolute Eosinophil Count 0.01 10^3/uL (0.0-0.7); Absolute Monocyte Count 0.24 10^3/uL (0.1-0.8); Absolute Neutrophil Count 8.89 10^3/uL (1.2-6.7); Basophils % 0.2; Eosinophils % 0.1; HCT 53.3 % (40.0-50.0); HGB 17.7 g/dL (13.5-17.5); Hemoglobin A1C 5.6 % (<5.7); Immature Grans % 0.4; Lymphocytes % 5.2; MCH 32.2 pg (27.0-33.0); MCHC 33.2 % (32.0-36.0); MCV 97.1 fL (80-95); Monocytes % 2.5; Neutrophils % 91.6; Nucleated RBC 0 %; Platelet Count 196 10^3/uL (130-400); RBC 5.49 10^6/uL (4.36-5.78); RDW-SD 50.5 fL
[2021-04-30 07:09] LABS: Anion Gap 12.2 mmol/L (3-11); BUN 17 mg/dL (7-18); CO2 27.8 mmol/L (21.0-32.0); CREATININE 1.2 mg/dL (0.70-1.30); Calcium 9.6 mg/dL (8.5-10.1); Chloride 102 mmol/L (98-107); Glucose 163 mg/dL (74-106); Magnesium 2.1 mg/dL (1.8-2.4); Potassium 4.2 mmol/L (3.5-5.1); Sodium 142 mmol/L (136-145)
[2021-04-30] MEDS: Budesonide/Formoterol 160/4.5 6 GM 60 PUFF INH IH ×2 (08:06→19:47)
[2021-04-30] MEDS: Gabapentin 800 MG TAB PO ×3 (08:14→19:45)
[2021-04-30] MEDS: Montelukast 10 MG TAB PO (08:14)
[2021-04-30] MEDS: Pantoprazole 40 MG TABCR PO (08:14)
[2021-04-30] MEDS: clonazePAM 1 MG TAB 2 MG PO ×2 (08:14→19:45)
[2021-04-30] MEDS: buPROPion-XL 150 MG TABCR 450 MG PO (08:14)
[2021-04-30] MEDS: predniSONE 20 MG TAB 60 MG PO ×2 (08:15→19:46)
[2021-04-30] MEDS: guaiFENesin 600 MG TABCR PO ×2 (08:15→19:45)
[2021-04-30] MEDS: Furosemide 20 MG/2 ML VIAL IVP ×2 (08:47→15:54)
[2021-04-30] MEDS: Normal Saline Flush 10 ML SYR (08:47)
--- NOTE | 2021-04-30 11:00 | PT.INIE ---
Date of service: 04/30/21 Time of Service: 11:00 PT Notes Visit Reasons: Lethargy Physical Therapy Inpatient Initial Evaluation Date: 04/30/2021 Referring Doctor: Lore Lynne MD PT Orders: PT CONSULT: Limited ability Precautions: Fall. Standard. Activity as tolerated. Patient Profile/Admitting Diagnosis: William is a 55-year-old male who presented to the ED on 04/29/2021 with altered mental status. Patient is diagnosed with lethargy resulting from questionably cumulative treatment effect from his current medications. PMHX: Medical History Acquired deformity of left hand Agoraphobia Anxiety Anxiety with depression Arthritis Biventricular implantable cardioverter-defibrillator (ICD) in situ Mode:DDD, Low rate 60bpm, Atrial lead: medtronic 5076, SN: [id number] 09/27/14; RV lead Medtronic 6935M SN: [id number] 09/27/14; LV lead Medtronic 4396, SN; TRACIE [id number] 09/27/14 (updated 03/11/20) BPH (benign prostatic hyperplasia) Cardiomyopathy Chest pain CHF (congestive heart failure) Chronic pain syndrome Cyst Depression Diabetes Diarrhea Dizziness Erectile dysfunction Fatigue Hallucination Hand paresthesia Heart disease History of alcohol abuse History of suicidal ideation History of tobacco abuse Hyperlipidemia Impacted ear wax LBBB (left bundle branch block) Lung disease Metacarpophalangeal joint pain Nonischemic dilated cardiomyopathy Pacemaker Pain in right hip Panic anxiety syndrome PTSD (post-traumatic stress disorder) Severe chronic obstructive pulmonary disease Skin lesion Systolic and diastolic CHF, chronic Tobacco use Surgical History Status post biventricular pacemaker Social History/Home Situation: Lives alone in an apartment building with 12 steps to enter without rails. Does not use any assistive device. has family nearby but has been estranged from them for a long time now. States that he currently has no means of transportation. Has not been able to do regular grocery shopping. Equipment Owned/DME: None Subjective: Agreeable to PT consult. Reports being dizzy and shaky towards the end of ambulation activity and requested to sit down. No LOB. NO SOB. Denies chest pain and headache. Objective: General Observation: IV access in R UE. Telemetry monitoring in place. Mental Status: Appears withdrawn. Alert and oriented as to person and place. Response time to questions slow. Pain: None reported ROM: Right Upper Extremity: Shoulder Flexion WFL. Shoulder abduction WFL. Elbow flexion WFL. Wrist flexion WFL. Opening and closing of hand WFL. Left Upper Extremity: Shoulder Flexion WFL. Shoulder abduction WFL. Elbow flexion WFL. Wrist flexion WFL. Opening and closing of hand WFL. Right Lower Extremity: Hip flexion WFL. Hip abduction WFL. Knee flexion WFL. Ankle dorsiflexion WFL. Ankle plantarflexion WFL. Left Lower Extremity: Hip flexion WFL. Hip abduction WFL. Knee flexion WFL. Ankle dorsiflexion WFL. Ankle plantarflexion WFL. Strength: Right Upper Extremity: Shoulder flexors 4/5. Shoulder abductors 4/5. Elbow flexors 5/5. Elbow extensors 5/5. Long Chain Dyeing Machine Operator strong. Left Upper Extremity: Shoulder flexors 4/5. Shoulder abductors 4/5. Elbow flexors 5/5. Elbow extensors 5/5. Long Chain Dyeing Machine Operator strong. Right Lower Extremity: Hip flexors 4/5. Hip abductors 4/5. Knee flexors 4/5. Knee extensors 4/5. Ankle dorsiflexors 4/5. Ankle plantarflexors 4/5. Left Lower Extremity: Hip flexors 4/5. Hip abductors 4/5. Knee flexors 4/5. Knee extensors 4/5. Ankle dorsiflexors 4/5. Ankle plantarflexors 4/5. Sensation: Intact as to pain and light pressure on bilateral lower extremities. Bed Mobility/Transfers: Sit to stand standby assist Stand to sit standby assist Bed to chair standby assist Chair to bed standby assist Gait: Guided patient through level surface ambulation 200 feet with front wheeled walker requiring guard assist. Complained of being dizzy and shaky towards the end of activity and requested to sit down on chair. Marlen slow. Balance: Static Sitting: Normal Dynamic Sitting: Normal Static Standing: Fair Dynamic Standing: Fair Special Tests: Mobility Limitations Standardized Measure [facility] AM-PAC 6 clicks Basic Mobility Inpatient Short Form: Raw Score: 22 CMS Score: 21% deficit 4-stage balance test: Patient is unable to maintain all 4 positions for 10 seconds indicating high fall risk at this time. Informed Consent/Education: Patient instructed in purpose of PT consult and plan of care. Assessment: Patient demonstrates difficulty with ambulation, impairment in balance, unsteadiness in gait, and sudden onset dizziness which all increase risk for falling. William is a 55-year-old male who presented to the ED on 04/29/2021 with altered mental status. Patient is diagnosed with lethargy resulting from questionably cumulative treatment effect from his current medications. Patient presents with clinical signs and symptoms consistent with current/admitting diagnoses that have resulted to mobility limitations, gait instability, generalized weakness, and impairment of motor control as demonstrated by the following impairment level findings: 1. Impaired standing balance 2. Impaired activity tolerance 3. Generalized weakness Impairments are contributing to the following functional limitations: 1. Increase completion time for mobility ADL performance 2. Increased fall risk 3. Inability to negotiate steps alone safely 4. Increased depdence with transfers Patient is assessed as a 74057 moderate complexity based on the following: History: 55-year-old male with impairment level findings, functional limitations, and medical history as indicated above Examination: Demonstrable impairment in strength, balance, and mobility level with underlying impairments and functional limitations as documented above Presentation: Evolving Decision Makin moderate complexity Goals: Goals X1 week 1. Sit-Stand independent 2. Stand-Sit independent 3. Bed-Chair independent 4. Chair-Bed independent 5. Independent gait on level surface with use of a single-point cane for at least 300 feet without report of pain nor dyspnea 6. Independent stair negotiation while holding onto bilateral rails for at least 15 steps without report of pain nor dyspnea 7. Independent with home exercise program 8. Good static and dynamic standing balance/tolerance Plan of Care/Treatment Plan: 1-2x/day, 7 days/week x 1 week. Initiate Physical Therapy intervention for strengthening, bed mobility, transfers, gait, stairs, balance training, use of assistive device. DISCHARGE RECOMMENDATIONS: Patient will benefit from home health PT services in order to assess safety of stairs, continue with stair negotiation training in the home environment, assess home safety, identify additional equipment needs, and establish a functional maintenance program that will increase ability of patient to remain at home. Patient may benefit from a single-point cane for community ambulation to maximize safety. TREATMENT CODE/TIME: 84268 x 25 3 minutes beginning at 11:00 AM. Thank you for the opportunity to participate in the care of this patient. Valentine Tavera PT, DPT, CLT [facility] [place], [place]
--- NOTE | 2021-04-30 11:58 | CMPROGNOTE_ITS ---
- If Service Date Differs Date of service: 04/30/21 Time of Service: 11:58 Care Management Progress Note S/O: William was sitting up eating his dinner when CM met with him. He reported that he is not well enough to leave. He expressed the desire to return to the [facility] Care Bed upon his discharge, and is concerned that his bed will be given away during this admission. CM discussed this with Davina [facility], who reported that their policy states that they will discharge any patient who is not in their care after a 24 hour absence. She intends on having William back at the Care Bed, as long as it is not filled prior to his discharge readiness. He continues to be treated with steroids, lasiks and nebs for his COPD exacerbation and acute on chronic CHF. CM will continue to follow. A: William is a 55 year old male admitted to [facility] on 04/29/21 with lethargy. P: William will likely return to the [facility] Care Bed vs return home with services. He will transport via [employer] vs [facility]. He will follow up with his PCP and discharge plan of care. CM will continue to follow.
--- NOTE | 2021-04-30 13:32 | PT.INTREAT ---
Date of service: 04/30/21 Time of Service: 13:00 PT Notes Visit Reasons: Lethargy Inpatient Physical Therapy Treatment Note [facility] Date: 04/30/2021 PRECAUTIONS: Fall SUBJECTIVE: William is pleasant, although states that he does not feel that he is up to getting out of bed and going for a walk. OBJECTIVE: PAIN: No c/o pain BED MOBILITY/TRANSFERS/GAIT: Patient declines OOB activities. Rolling L/R: I THEREX: Patient was instructed in a global strengthening and stabilization program, completed in a supine position, as per flow sheet. Exercises include bridging, shoulder flexion, punch outs, hip and knee flexion, ankle pumps, quad and glute sets, and hip abduction. ASSESSMENT: Patient tolerated session with c/o increased fatigue with exercise completion. He would benefit from continued global strengthening for progression toward baseline level of function. PLAN: Continue with global strengthening and gait training, as tolerated. TREATMENT CODE/TIME: 15 minutes; 14587 (13:00)
--- NOTE | 2021-04-30 14:50 | PHA.REVIEW ---
Pharmacy Admission Review - Admission Clinical Review (Last Reviewed 04/29/21 @ 00:48 by Hao Mi MD) Acute on chronic systolic CHF (congestive heart failure) (Acute) Lethargy (Acute) COPD exacerbation (Acute) Discharge planning issues (Acute) DVT prophylaxis (Acute) citalopram Allergy (Unverified 01/21/21 13:53) oxycodone HCl [From Percocet] Adverse Reaction (Unverified 01/21/21 13:53) Addiction Resuscitation Status Full Code Height 5 ft 7 in Weight 76.8 kg - Renal Dosing Renal Dosing: BUN 17 mg/dL (7-18) 04/30/21 06:33 Creatinine 1.2 mg/dL (0.70-1.30) 04/30/21 06:33 Medications needing adjustments: Reviewed List of meds needing interventions: eCrCl is 63 ml/min - Anticoagulation Anticoagulation: Hgb 17.7 g/dL (13.5-17.5) H 04/30/21 06:33 Hct 53.3 % (40.0-50.0) H 04/30/21 06:33 Plt Count 196 10^3/uL (130-400) 04/30/21 06:33 INR 1.0 (0.9-1.1) 04/28/21 23:55 Creatinine 1.2 mg/dL (0.70-1.30) 04/30/21 06:33 DVT Prophylaxis: Reviewed Medications: Enoxaparin - Opiate Usage Evaluate Pain Scale/Pains Meds: Reviewed Scheduled Bowel Reg ordered if on Opiates?: No (last BM 04/29) - Relevant Labs Sodium 142 mmol/L (136-145) 04/30/21 06:33 Potassium 4.2 mmol/L (3.5-5.1) 04/30/21 06:33 Chloride 102 mmol/L (98-107) 04/30/21 06:33 Magnesium 2.1 mg/dL (1.8-2.4) 04/30/21 06:33 Electrolytes, C-Reactive P, ESR: Reviewed - DM Control DM Control: Glucose 163 mg/dL (74-106) H 04/30/21 06:33 Hemoglobin A1c 5.6 % (<5.7) 04/30/21 06:33 Finger Stick Blood Glucose 200 Finger Stick Blood Glucose 200 Finger Stick Blood Glucose 145 Finger Stick Blood Glucose 145 Insulin Dosing: N/A - Heart Failure/NY Heart Failure/[place]: Troponin I < 0.05 ng/mL (<0.06) 04/28/21 23:32 NT-Pro-B Natriuret Pep 65 pg/mL (<300) 04/29/21 08:19 EF%, TEOFILO's, B-Blockers, Diuretics: Reviewed - BP Control BP Control: Blood Pressure 112/76 Blood Pressure 132/74 If elevated: Reviewed - Qtc Review If Elevated: Reviewed List meds needing interventions: QTc was 483 on admission - IV to PO Switch IV Medications: Reviewed - Home Meds Home Med List reviewed: Reviewed Relevent Home Meds Not ordered & why?: Spiriva (has sofia duonebs ordered) -- of note: has extremely high copays with current medicare plan so he typically fills high priced items (mainly inhalers) with [facility] due for both Advair and Spiriva to be refilled with them just about now; mentioned this to MIRANDA Sparks and she is setting him up with proper resources to determine Medicaid eligibility so as to hopefully avoid this barrier to getting his inhalers - Current meds Current Medication Order Review: Reviewed
--- NOTE | 2021-04-30 15:36 | W.PM.PROGNOT ---
Date of Service Date of service: 04/30/21 Time of Service: 15:36 Assessment and Plan Assessment and plan (1) COPD exacerbation: Status: Acute Assessment and plan: Continue current systemic steroids. Continue scheduled and prn nebs, symbicort, antitussives. IS/acapella. Sputum culture not obtained - cough nonproductive. No role for abx at this time. (2) Acute on chronic systolic CHF (congestive heart failure): Status: Acute Assessment and plan: EF 45-50% per echo in 02/2020. No echo is available at [facility] this week. He is s/p AICD. Repeat a dose of lasix now and continue daily lasix. Monitor I/O's, daily weights. (3) Musculoskeletal chest pain: Status: Chronic Assessment and plan: No ACS. Continue home meds (4) AMS (altered mental status): Status: Resolved Assessment and plan: Will monitor with resumption of home medications. (5) Diabetes: Status: Ruled-out Assessment and plan: mentioned in patient's chart. A1C is 5.6 - currently does not meet diagnostic criteria. Continue carb consistent diet while on steroids. (6) Discharge planning issues: Status: Acute Assessment and plan: Full code Continues to require hospitalization. Anticipate discharge in 48 hrs (7) DVT prophylaxis: Status: Acute Assessment and plan: SC lovenox Subjective Subjective Interval history since last seen: Mr Gay states his breathing is a little bit better today. He continues to describe musculoskeletal discomfort in his chest. Denies dizziness, nausea, abdominal pain. Shortness of breath is better. Not coughing anything up. Working with acapella. Exam Narrative Exam Narrative: General: Pleasant middle-aged male, A&Ox3, resting in bed, wakes up easily, answers questions appropriately HEENT: EOMI, MMM Heart: RRR, no m/r/g Lungs: Rhonchi and rales on expiration B have improved Abdomen: soft, nontender, nondistended Extremities: no edema BLE's Objective Last Vital Signs Temp 36.9 C 04/30/21 15:03 Pulse 95 H 04/30/21 15:03 Resp 18 04/30/21 15:03 BP 122/76 04/30/21 15:03 Pulse Ox 91 L 04/30/21 15:03 Laboratory Results - last 24 hr 04/29/21 04/29/21 04/30/21 08:19 08:19 06:33 WBC RBC Hgb Hct MCV MCH MCHC RDW Plt Count MPV Immature Gran % Neutrophils % Lymphocytes % Monocytes % Eosinophils % Basophils % Nucleated RBC % Absolute Neutrophils Absolute Lymphocytes Absolute Monocytes Absolute Eosinophils Absolute Basophils Sodium 144 Potassium 4.1 Chloride 107 Carbon Dioxide 26.8 Anion Gap 10.2 BUN 13 Creatinine 0.9 Estimated GFR/1.73 m2 >= 60.00 Glucose 107 H Hemoglobin A1c 5.6 Calcium 8.9 Magnesium 2.0 NT-Pro-B Natriuret Pep 65 Procalcitonin < 0.1 04/30/21 04/30/21 06:33 06:33 WBC 9.70 RBC 5.49 Hgb 17.7 H Hct 53.3 H MCV 97.1 H D MCH 32.2 MCHC 33.2 RDW 14.0 Plt Count 196 MPV 11.0 Immature Gran % 0.4 Neutrophils % 91.6 Lymphocytes % 5.2 Monocytes % 2.5 Eosinophils % 0.1 Basophils % 0.2 Nucleated RBC % 0 Absolute Neutrophils 8.89 H Absolute Lymphocytes 0.50 L Absolute Monocytes 0.24 Absolute Eosinophils 0.01 Absolute Basophils 0.02 Sodium 142 Potassium 4.2 Chloride 102 Carbon Dioxide 27.8 Anion Gap 12.2 H BUN 17 Creatinine 1.2 Estimated GFR/1.73 m2 >= 60.00 Glucose 163 H Hemoglobin A1c Calcium 9.6 Magnesium 2.1 NT-Pro-B Natriuret Pep Procalcitonin
[2021-04-30] MEDS: Enoxaparin 40 MG/0.4 ML SYR SC (15:55)
[2021-04-30] MEDS: Normal Saline Flush 10 ML SYR IVP (15:55)
[2021-04-30] MEDS: Pravastatin 20 MG TAB PO (19:45)
[2021-04-30] MEDS: QUEtiapine 300 MG TAB PO (21:43)
[2021-04-30] MEDS: Amitriptyline 25 MG TAB 50 MG PO (21:43)
[2021-04-30] MEDS: Benztropine 1 MG TAB PO (21:43)
[2021-04-30] MEDS: QUEtiapine 100 MG TAB 200 MG PO (21:44)
[2021-05-01] VITALS (9 sets, daily range): BP systolic 102–143; BP diastolic 65–90; PULSE 84–99; RESP 1–20; TEMP 36.3–36.7; O2SAT 86–91
[2021-05-01] MEDS: Albuterol/Ipratropium 3 ML UPD VIAL UPD ×3 (00:09→10:59)
[2021-05-01] MEDS: Pantoprazole 40 MG TABCR PO (06:33)
[2021-05-01 07:01] LABS: Abs Immature Grans 0.09 10^3/uL (0.0-0.06); Absolute Basophil Count 0.01 10^3/uL (0.0-0.2); Absolute Lymphocyte Count 0.59 10^3/uL (1.2-3.4); Basophils % 0.1; HCT 50.8 % (40.0-50.0); HGB 16.9 g/dL (13.5-17.5); Immature Grans % 0.7; Lymphocytes % 4.4; MCH 32.1 pg (27.0-33.0); MCHC 33.3 % (32.0-36.0); MCV 96.4 fL (80-95); MPV 11.2 fL (8.0-11.0); Monocytes % 5.2; Neutrophils % 89.6; Nucleated RBC 0 %; Platelet Count 194 10^3/uL (130-400); RBC 5.27 10^6/uL (4.36-5.78); RDW 14.1 % (11.8-14.1); RDW-SD 50.5 fL; WBC 13.48 10^3/uL (4.4-10.8)
[2021-05-01 07:07] LABS: Absolute Neutrophil Count 12.08 10^3/uL (1.2-6.7)
[2021-05-01 07:09] LABS: Anion Gap 11.2 mmol/L (3-11); BUN 22 mg/dL (7-18); CO2 26.8 mmol/L (21.0-32.0); Calcium 9.4 mg/dL (8.5-10.1); Chloride 104 mmol/L (98-107); Glucose 166 mg/dL (74-106); Potassium 4.5 mmol/L (3.5-5.1); Sodium 142 mmol/L (136-145)
[2021-05-01] MEDS: Budesonide/Formoterol 160/4.5 6 GM 60 PUFF INH IH (07:58)
[2021-05-01] MEDS: buPROPion-XL 150 MG TABCR 450 MG PO (08:41)
[2021-05-01] MEDS: guaiFENesin 600 MG TABCR PO (08:41)
[2021-05-01] MEDS: predniSONE 20 MG TAB 60 MG PO (08:42)
[2021-05-01] MEDS: Montelukast 10 MG TAB PO (08:42)
[2021-05-01] MEDS: Gabapentin 800 MG TAB PO ×2 (08:42→14:41)
[2021-05-01] MEDS: Furosemide 20 MG/2 ML VIAL IVP (08:42)
[2021-05-01] MEDS: clonazePAM 1 MG TAB 2 MG PO (08:47)
--- NOTE | 2021-05-01 09:49 | CMPROGNOTE_ITS ---
- If Service Date Differs Date of service: 05/01/21 Time of Service: 09:49 Care Management Progress Note S/O: A: William is a 55 year old male admitted to [facility] on 04/29/21 with lethargy. P: William will likely return to the [facility] Care Bed vs return home with services. He will transport via [employer] vs [facility]. He will follow up with his PCP and discharge plan of care. CM will continue to follow.
--- NOTE | 2021-05-01 09:49 | PDOC.CMPRO ---
- If Service Date Differs Date of service: 05/01/21 Time of Service: 09:49 Care Management Progress Note S/O: A: William is a 55 year old male admitted to [facility] on 04/29/21 with lethargy. P: William will likely return to the [facility] Care Bed vs return home with services. He will transport via [employer] vs [facility]. He will follow up with his PCP and discharge plan of care. CM will continue to follow.
--- NOTE | 2021-05-01 13:52 | W.PM.DS.N ---
Date of service: 05/01/21 Time of Service: 13:52 DS: Diagnosis Discharge Diagnosis (1) COPD exacerbation: Status: Acute (2) Acute on chronic systolic CHF (congestive heart failure): Status: Acute (3) Musculoskeletal chest pain: Status: Chronic (4) AMS (altered mental status): Status: Resolved (5) Diabetes: Status: Ruled-out (6) COVID-19 ruled out by laboratory testing: Status: Ruled-out Discharge Plan Disposition Patient Disposition: OTHER Condition: Stable Discharge Details Reason For Visit: Lethargy Admit Date/Time: 04/29/21 16:15 Admit Provider: Hao Mi Attending Provider: Hao Mi Primary Care Provider: Lorrie Crespo Hospital Course Hospital Course: Mr Gay is a 55 year old male with PMHx of non-oxygen dependent COPD, NICMO/chronic systolic CHF s/p AICD, EF around 50 %, as well as h/o anxiety/depresson/PTSD, who was a patient on [facility] hospitalist service from 04/29/21 until 05/01/21 after being found to be more lethargic/somnolent than his baseline at the care bed where he resides. The patient was found to be in acute exacerbation of COPD without evidence of pneumonia or COVID-19. He does have evidence of atelectasis. He was treated with scheduled and prn nebs, systemic steroids, symbicort. Additionally, we encouraged pulmonary toileting. All his outpatient medications were continued. He did also have musculoskeletal chest pain which was not further investigated on this admission. His mental status is felt to be intact and we did not note lethargy on this admission. He is medically stable for discharge back to care bed today. He does not require oxygen on discharge. Care for patient as well as completion of his discharge summary took 45 minutes on the day of discharge. Home Meds and New Rx's Prescriptions: New prednisone 20 mg Tablet See Rx Instructions .ROUTE .COMPLEX Qty: 14 RF: 0 pantoprazole 40 mg Tablet,Delayed Release (Dr/Ec) 40 mg PO DAILY@0730 Qty: 30 RF: 0 albuterol sulfate 1.25 mg/3 mL solution for nebulization 1.25 mg inhalation QID PRN (Reason: shortness of breath or wheezing) Qty: 90 RF: 0 Continued nitroglycerin 0.4 MG tablet, sublingual 0.4 mg Sublingual one every 5 mins. x3 Qty: 30 RF: 3 Narcan 4 mg/actuation spray,non-aerosol 4 mg intranasal Q2-3M PRNRF: 0 quetiapine [Seroquel] 400 mg tablet 400 mg PO HS RF: 0 fluticasone propion-salmeterol [Advair Diskus] 250-50 mcg/dose blister with device 1 inh inhalation BID RF: 0 hydrocodone-acetaminophen 5-325 mg tablet 1 tab PO TID PRN PRN (Reason: Pain) RF: 0 Trintellix 5 mg tablet 20 mg PO DAILY RF: 0 amitriptyline 25 mg tablet 50 mg PO QHS RF: 0 acetaminophen 325 mg capsule 325 - 650 mg PO Q4H PRN PRN (Reason: Pain) RF: 0 montelukast 10 mg tablet 10 mg PO DAILY RF: 0 benztropine 1 mg tablet 1 mg PO HS Qty: 0 RF: 0 bupropion HCl 300 mg tablet extended release 24 hr 300 mg PO QAM Qty: 10 RF: 0 pravastatin 20 mg tablet 20 mg PO QHS Qty: 10 RF: 0 clonazepam 2 mg tablet 2 mg PO BID RF: 0 bupropion HCl 150 mg tablet extended release 24 hr 150 mg PO QAM RF: 0 ipratropium-albuterol 0.5 mg-3 mg(2.5 mg base)/3 mL solution for nebulization 3 ml IH Q6H Qty: 90 RF: 0 magnesium hydroxide [Milk of Magnesia] 400 mg/5 mL Suspension 10 ml PO Q6H PRNRF: 0 diphenhydramine HCl [Benadryl] 25 mg Capsule 25 mg PO Q6H PRNRF: 0 calcium carbonate [Calcium Antacid] 200 mg calcium (500 mg) Tablet,Chewable 200 mg PO Q4H PRNRF: 0 docusate sodium 100 mg Tablet 100 mg PO BID PRNRF: 0 quetiapine 100 mg Tablet 100 mg PO QHS RF: 0 bacitracin 500 unit/gram Ointment 1 applic BID PRN PRNRF: 0 guaifenesin [Tussin] 100 mg/5 mL Liquid 200 mg PO Q4H PRN PRN (Reason: Cough) RF: 0 gabapentin 800 mg tablet 800 mg PO TID RF: 0 Discontinued tiotropium bromide 18 mcg capsule, w/inhalation device 1 cap inhalation DAILY RF: 0 Discharge Instructions Instructions: Prednisone (By mouth), Pantoprazole (By mouth), COPD (Chronic Obstructive Pulmonary Disease) (DC) Additional Instructions: Finish your steroid taper as precribed. Follow up with PCP in 1-2 weeks. Work with incentive spirometry (10 times an hour) and acapella with your breathing treatments as you have been in the hospital. Return to the hospital with any fever, bleeding, chest pain, or shortness of breath. Care Plan Goals: Discharging to care bed. Referrals: Lorrie Crespo [Primary Care Provider] - 05/15/21 1:00 pm Activity:: Activity as Tolerated Equipment/Supplies:: No Equipment Needed Diet:: Low Sodium Discharge Orders Discharge Orders: Discharge Order (Routine); Ordered 05/01/21 Ordered By: Lore Lynne DS: Summary Time Spent with Patient providing and/or coordinating discharge services: Greater than 30 minutes Status at Discharge Functional status at discharge: independent ambulation Overall status at discharge: patient is progressing back to baseline Mental Status: mental status grossly normal Speech and Movement: speech and movement normal Mood: congruent mood Affect: normal affect Exam Narrative Exam Narrative: General: Pleasant middle-aged male, A&Ox3, resting in bed, wakes up easily, answers questions appropriately HEENT: EOMI, MMM Heart: RRR, no m/r/g Lungs: CTAB after coughing (prior to coughing rhonchi were heard). Abdomen: soft, nontender, nondistended Extremities: no edema BLE's Psych Mental Status: mental status grossly normal Speech and Movement: speech and movement normal Mood: congruent mood Affect: normal affect DS: Data Vitals/I&O Vitals and I&O: Vital Signs Temperature 36.6 C 05/01/21 11:49 Temperature Source Tympanic 05/01/21 11:49 Pulse 88 05/01/21 11:49 Pulse Rhythm Regular 05/01/21 08:45 Pulse 81 04/29/21 01:01 Respiratory Rate 20 05/01/21 11:49 Respiratory Effort Non-Labored 05/01/21 08:45 Respiratory Depth Normal 05/01/21 08:45 Respiratory Pattern Normal 05/01/21 08:45 Blood Pressure 143/90 H 05/01/21 11:49 Blood Pressure Mean 79 04/29/21 01:01 Pulse Oximetry 90 L 05/01/21 11:49 Oxygen Delivery Method Room Air 05/01/21 11:49 Oxygen Flow Rate 0 05/01/21 11:49 Pain Level 9 05/01/21 11:49 Intake & Output 04/30/21 05/01/21 05/01/21 23:59 11:59 23:59 Intake Total 250 / 490 110 / 110 Output Total 750 / 1100 500 / 500 Balance -500 / -610 -390 / -390 Weight 77 kg Intake: IV Oral 240 / 480 100 / 100 Output: Urine 750 / 1100 500 / 500 Other: Urine Color Yellow Yellow Urine Appearance Clear Clear Urine Odor None Voiding Methods Urinal Data Completed and Pending Completed studies during hospitalization [Text1]: CXR: Increased lung markings in the lung bases. This may represent atelectasis, scarring or pneumonia. CT head w/o contrast: No acute intracranial process. Labs on day of discharge: Labs from last 24 hours 05/01/21 05/01/21 06:35 06:35 WBC 13.48 H D RBC 5.27 Hgb 16.9 Hct 50.8 H MCV 96.4 H MCH 32.1 MCHC 33.3 RDW 14.1 Plt Count 194 MPV 11.2 H Immature Gran % 0.7 Neutrophils % 89.6 Lymphocytes % 4.4 Monocytes % 5.2 Eosinophils % 0.0 Basophils % 0.1 Nucleated RBC % 0 Absolute Neutrophils 12.08 H Absolute Lymphocytes 0.59 L Absolute Monocytes 0.70 Absolute Eosinophils 0.00 Absolute Basophils 0.01 Sodium 142 Potassium 4.5 Chloride 104 Carbon Dioxide 26.8 Anion Gap 11.2 H BUN 22 H Creatinine 1.0 Estimated GFR/1.73 m2 >= 60.00 Glucose 166 H Calcium 9.4 Magnesium 2.0 Preliminary micro results at discharge 04/29/21 21:30 Sputum Culture - Preliminary Sputum Normal Helen PFSH Medical History Acquired deformity of left hand Agoraphobia Anxiety Anxiety with depression Arthritis Biventricular implantable cardioverter-defibrillator (ICD) in situ Mode:DDD, Low rate 60bpm, Atrial lead: medtronic 5076, SN: [id number] 09/27/14; RV lead Medtronic 6935M SN: [id number] 09/27/14; LV lead Medtronic 4396, SN; [id number] 09/27/14 (updated 03/11/20) BPH (benign prostatic hyperplasia) Cardiomyopathy Chest pain CHF (congestive heart failure) Chronic pain syndrome Cyst Depression Diabetes Diarrhea Dizziness Erectile dysfunction Fatigue Hallucination Hand paresthesia Heart disease History of alcohol abuse History of suicidal ideation History of tobacco abuse Hyperlipidemia Impacted ear wax LBBB (left bundle branch block) Lung disease Metacarpophalangeal joint pain Nonischemic dilated cardiomyopathy Pacemaker Pain in right hip Panic anxiety syndrome PTSD (post-traumatic stress disorder) Severe chronic obstructive pulmonary disease Skin lesion Systolic and diastolic CHF, chronic Tobacco use Surgical History Status post biventricular pacemaker Family History Mother , 2008 COPD (chronic obstructive pulmonary disease) Social History Smoking/Tobacco Use Status: Former Tobacco Use Quit Date: 10/25/15 Pack-years: 120 Smoking risk assessment performed?: Yes Alcohol Intake: former Drug use: Never Do you feel safe at home: Yes Do you feel safe in your relationship?: Yes Additional Social history: lives alone
--- NOTE | 2021-05-01 14:22 | PDOC.HHF2F_ITS ---
Home Health Certification Home Health Certification: 1. Encounter Date and Reason I certify that William Gay was seen by Lore Lynne on 05/01/21 and that I had a [id number] encounter with this patient that meets the physician face to face encounter requirements. 2. Clinical Findings Supporting Skilled Need and Homebound Status I certify that home health services are medically necessary, include either intermittent correction and/or physical/speech therapy, and that this patient is homebound in that absences from the home require considerable and taxing effort and are infrequent or of short duration, or are attributable to the need to receive medical care. [X] (a) Attached documentation from encounter provides clinical findings supporting skilled need and homebound status (including what assistance patient requires to leave the home). The encounter with the patient was in whole, or in part, for the following medical condition, which is the primary reason for home health care: Lethargy Physical Therapy: eval and treat Homebound: unable to leave home without assistance 3. Certification and Authentication I certify that I composed the above information based on my clinical judgement relating to this patient's medical condition and, if applicable, clinical findings communicated to me by the NPP or inpatient physician who performed the Home Health Referral. All further orders will be obtained through ___Lorrie Crespo (Community Based Physician - PCP)
--- NOTE | 2021-05-01 15:19 | PTTR_ITS ---
Date of service: 05/01/21 Time of Service: 09:30 PT Notes Visit Reasons: Lethargy Inpatient Physical Therapy Treatment Note [facility] Date: 05/01/2021 PRECAUTIONS: Activity as tolerated SUBJECTIVE: William asks multiple times to see his medical record, stating that he is concerned that there is history of heroine abuse in his history, which he claims is not accurate. He also reports that he is waiting on a phone call from [facility] this morning. OBJECTIVE: Following discussion with patient, it is determined that he does have a FWW at [facility], which he feels he will need to use with ambulation due to weakness. PAIN: No c/o pain BED MOBILITY/TRANSFERS Supine-sit: I Sit-stand: I Stand-sit: I hair-bed: I GAIT Assistive Device: FWW Weight bearing: Full Assist: S Distance: 200' TOILETING: Patient toileted independently ASSESSMENT: Patient tolerated session without complaint. PLAN: Discharge to [facility], per provider. TREATMENT CODE/TIME: Session 1: 15 minutes; [id number] (09:30) Session 2: 10 minutes; no charge (14:30)
--- NOTE | 2021-05-01 15:47 | PDOC.CMDIS ---
- If Service Date Differs Date of service: 05/01/21 Time of Service: 15:47 LACE Index Scoring Tool - Questions: Length of Stay (in days): 2 Acuity (Admit via E.D.?): Yes Comorbidities: Congestive Heart Failure, Chronic Pulmonary Disease E.D. Visits: 5 - Answers: Total Score: 14 Risk of Readmission: High Risk Care Management Discharge Reason for Hospitalization: Lethargy Discharge Plan: William returned to the [facility] Care Bed today after being medically cleared by MD. He will have new orders for HH PT, and CM informed HC of his discharge today. Davina [facility], drove him to the Care Bed via private vehicle. He will follow up with his PCP and discharge plan of care. He is happy to be returning to the Care Bed. Patient/Family Education Needs: Review discharge instructions regarding activity levels and medications, discussion of self care needs including ask me three. Services Needed at Discharge: Home Health Care Services ([facility] PT) - MH Services (Omit if N/A) Current MH Services: Care Bed - Disposition Disposition: Crisis Bed Transport via of: Other ([facility] transport)
--- NOTE | 2021-05-05 08:19 | INDS_ITS ---
Date of service: 05/05/21 PT Notes Visit Reasons: Lethargy Physical Therapy Inpatient Discharge Summary Date: 05/05/2021 Referring Doctor: Lore Lynne MD PT Orders: PT CONSULT: Limited ability Precautions: Fall. Standard. Activity as tolerated. Patient Profile/Admitting Diagnosis: William is a 55-year-old male who presented to the ED on 04/29/2021 with altered mental status. Patient is diagnosed with lethargy resulting from questionably cumulative treatment effect from his curren t medications. PMHX: Medical History Acquired deformity of left hand Agoraphobia Anxiety Anxiety with depression Arthritis Biventricular implantable cardioverter-defibrillator (ICD) in situ Mode:DDD, Low rate 60bpm, Atrial lead: medtronic 5076, SN: [id number] 09/27/14; RV lead Medtronic 6935M SN: [id number] ; LV lead Medtronic 4396, SN; TRACIE [id number] 09/27/14 (updated 03/11/20) BPH (benign prostatic hyperplasia) Cardiomyopathy Chest pain CHF (congestive heart failure) Chronic pain syndrome Cyst Depression Diabetes Diarrhea Dizziness Erectile dysfunction Fatigue Hallucination Hand paresthesia Heart disease History of alcohol abuse History of suicidal ideation History of tobacco abuse Hyperlipidemia Impacted ear wax LBBB (left bundle branch block) Lung disease Metacarpophalangeal joint pain Nonischemic dilated cardiomyopathy Pacemaker Pain in right hip Panic anxiety syndrome PTSD (post-traumatic stress disorder) Severe chronic obstructive pulmonary disease Skin lesion Systolic and diastolic CHF, chronic Tobacco use Surgical History Status post biventricular pacemaker Social History/Home Situation: Lives alone in an apartment building with 12 steps to enter without rails. Does not use any assistive device. has family nearby but has been estranged from them for a long time now. States that he currently has no means of transportation. Has not been able to do regular grocery shopping. Equipment Owned/DME: None Subjective: NT. See most recent [employer] notes. Objective: General Observation: NT. See most recent [employer] notes. Mental Status: NT. See most recent [employer] notes. Pain: NT. See most recent [employer] notes. ROM: Right Upper Extremity: Shoulder Flexion WFL. Shoulder abduction WFL. Elbow flexion WFL. Wrist flexion WFL. Opening and closing of hand WFL. Left Upper Extremity: Shoulder Flexion WFL. Shoulder abduction WFL. Elbow flexion WFL. Wrist flexion WFL. Opening and closing of hand WFL. Right Lower Extremity: Hip flexion WFL. Hip abduction WFL. Knee flexion WFL. Ankle dorsiflexion WFL. Ankle plantarflexion WFL. Left Lower Extremity: Hip flexion WFL. Hip abduction WFL. Knee flexion WFL. Ankle dorsiflexion WFL. Ankle plantarflexion WFL. Strength: Right Upper Extremity: Shoulder flexors 4/5. Shoulder abductors 4/5. Elbow flexors 5/5. Elbow extensors 5/5. Cable Cutter And Swager strong. Left Upper Extremity: Shoulder flexors 4/5. Shoulder abductors 4/5. Elbow flexors 5/5. Elbow extensors 5/5. Cable Cutter And Swager strong. Right Lower Extremity: Hip flexors 4/5. Hip abductors 4/5. Knee flexors 4/5. Knee extensors 4/5. Ankle dorsiflexors 4/5. Ankle plantarflexors 4/5. Left Lower Extremity: Hip flexors 4/5. Hip abductors 4/5. Knee flexors 4/5. Knee extensors 4/5. Ankle dorsiflexors 4/5. Ankle plantarflexors 4/5. Sensation: Intact as to pain and light pressure on bilateral lower extremities. Bed Mobility/Transfers: Sit to stand independent Stand to sit independent Bed to chair independent Chair to bed independent Gait: Guided patient through level surface ambulation 200 feet with front wheeled walker requiring supervision only No dizziness. No LOB. Balance: Static Sitting: Normal Dynamic Sitting: Normal Static Standing: Good Dynamic Standing: Fair Assessment: Patient is to present with clinical signs and symptoms consistent with current/admitting diagnoses that have resulted to mobility limitations, gait instability, generalized weakness, and impairment of motor control as demonstrated by the following impairment level findings: 1. Impaired standing balance Impairments are continuing to contribute to the following functional limitations: 1. Increase completion time for mobility ADL performance 2. Increased fall risk Goals: Goals X1 week 1. Sit-Stand independent MET 2. Stand-Sit independent MET 3. Bed-Chair independent MET 4. Chair-Bed independent MET 5. Independent gait on level surface with use of a single-point cane for at least 300 feet without report of pain nor dyspnea MET 6. Independent stair negotiation while holding onto bilateral rails for at least 15 steps without report of pain nor dyspnea MET 7. Independent with home exercise program MET 8. Good static and dynamic standing balance/tolerance MET DISCHARGE RECOMMENDATIONS: Patient will benefit from home health PT services in order to assess safety of stairs, continue with stair negotiation training in the home environment, assess home safety, identify additional equipment needs, and establish a functional maintenance program that will increase ability of patient to remain at home. Patient may benefit from a single-point cane for community ambulation to maximize safety. TREATMENT CODE/TIME: NC Thank you for the opportunity to participate in the care of this patient. Valentine Tavera PT, DPT, CLT [facility] [place], [place]
== END 2021-05-01 15:45 | disposition other institution (70) | DRG 190 ==
LOC: ER 04-29 01:20 → MS 04-29 01:56
PROVIDERS: Internal Medicine; Admitting Provider General Practice; Emergency Provider Student in an Organized Health Care Education/Training Program; PCP Nurse Practitioner Family; Visit Provider General Practice
DX: J44.1 Chronic obstructive pulmonary disease with (acute) exacerbation (principal); I50.43 Acute on chronic combined systolic (congestive) and diastolic (congestive) heart failure; I42.0 Dilated cardiomyopathy; J98.11 Atelectasis; Z20.822 Contact with and (suspected) exposure to COVID-19; Z95.810 Presence of automatic (implantable) cardiac defibrillator; F10.10 Alcohol abuse, uncomplicated; F41.8 Other specified anxiety disorders; F40.02 Agoraphobia without panic disorder; N40.0 Benign prostatic hyperplasia without lower urinary tract symptoms; G89.4 Chronic pain syndrome; Z87.891 Personal history of nicotine dependence; E78.5 Hyperlipidemia, unspecified; I44.7 Left bundle-branch block, unspecified; R41.82 Altered mental status, unspecified; R07.89 Other chest pain
CPT/HCPCS: 36415; 36416; 80048; 80053; 80307; 82805; 82962; 84145; 87635; 93005; 94618; 94640; 97110; 97162; 97530; 99285; J1650; 70450; 71046; 80320; 82140; 83036; 83605; 83735; 83880; 84443; 84484; 85025; 85610; 85730; 87070; 87205; 93010; 94667; 99222; 99232; 99239; G0378; J1941; J2930; J7512; J7613; J7620

== ENCOUNTER 2021-05-14 10:05 | Inpatient (IN) | payer MEDICARE, SELFPAY ==
[2021-05-14] VITALS (85 sets, daily range): BP systolic 92–160; BP diastolic 38–121; PULSE 63–127; RESP 12–32; TEMP 36.3–36.9; O2SAT 85–97
--- NOTE | 2021-05-14 10:30 | RT.EKG_ITS ---
APPROVED REPORT Exam: Resting ECG Reason for Exam: sob Patient Location: E HR:89 bpm ECG Measurements Heart Rate 89 AXIS MD 154 P 72 QRSd 123 QRS 152 QT 377 T 56 QTc 460 Conclusion Atrial-sensed ventricular-paced rhythm...ventricular pacing tracks p-waves Biventricular paced rhythm...non-simultaneous bi-vent pacing
--- NOTE | 2021-05-14 10:30 | DI.RAD_ITS ---
Exam(s) XR CHEST 2V PA LATERAL EXAM: XR CHEST 2V PA LATERAL CLINICAL HISTORY: COPD, SOB. TECHNIQUE: 2D digital imaging was performed. COMPARISON: Prior chest x-ray 04/29/2021 FINDINGS: Heart size unchanged. Bipolar pacemaker again noted. There presently no confluent infiltrates nor pleural effusions. There is platelike atelectasis in th e right lung base. No obvious pleural effusions. No pulmonary edema. No pneumothorax. IMPRESSION: Improved when compared to 04/29/2021.No confluent infiltrates on today's study. Bipolar pacemaker. No pulmonary edema. No pleural effusions. Report DATA REPOSITORY: RADIATION DOSE DELIVERED:
--- NOTE | 2021-05-14 10:35 | ED.GENADUL_ITS ---
Discharge Plan Disposition Patient Disposition: [facility] INPATIENT Condition: Improving Discharge Details Clinical Impression: Acute exacerbation of chronic obstructive pulmonary disease Primary Care Provider: Lorrie Crespo ED Provider: Jesus Wooten Home Meds and New Rx's Prescriptions: Continued nitroglycerin 0.4 MG tablet, sublingual 0.4 mg Sublingual one every 5 mins. x3 Qty: 30 RF: 3 Narcan 4 mg/actuation spray,non-aerosol 4 mg intranasal Q2-3M PRNRF: 0 quetiapine [Seroquel] 400 mg tablet 400 mg PO HS RF: 0 fluticasone propion-salmeterol [Advair Diskus] 250-50 mcg/dose blister with device 1 inh inhalation BID RF: 0 hydrocodone-acetaminophen 5-325 mg tablet 1 tab PO TID PRN PRN (Reason: Pain) RF: 0 Trintellix 5 mg tablet 20 mg PO DAILY RF: 0 amitriptyline 25 mg tablet 50 mg PO QHS RF: 0 acetaminophen 325 mg capsule 325 - 650 mg PO Q4H PRN PRN (Reason: Pain) RF: 0 montelukast 10 mg tablet 10 mg PO DAILY RF: 0 benztropine 1 mg tablet 1 mg PO HS Qty: 0 RF: 0 bupropion HCl 300 mg tablet extended release 24 hr 300 mg PO QAM Qty: 10 RF: 0 pravastatin 20 mg tablet 20 mg PO QHS Qty: 10 RF: 0 clonazepam 2 mg tablet 2 mg PO BID RF: 0 bupropion HCl 150 mg tablet extended release 24 hr 150 mg PO QAM RF: 0 ipratropium-albuterol 0.5 mg-3 mg(2.5 mg base)/3 mL solution for nebulization 3 ml IH Q6H Qty: 90 RF: 0 magnesium hydroxide [Milk of Magnesia] 400 mg/5 mL Suspension 10 ml PO Q6H PRNRF: 0 diphenhydramine HCl [Benadryl] 25 mg Capsule 25 mg PO Q6H PRNRF: 0 calcium carbonate [Calcium Antacid] 200 mg calcium (500 mg) Tablet,Chewable 200 mg PO Q4H PRNRF: 0 docusate sodium 100 mg Tablet 100 mg PO BID PRNRF: 0 quetiapine 100 mg Tablet 100 mg PO QHS RF: 0 bacitracin 500 unit/gram Ointment 1 applic BID PRN PRNRF: 0 guaifenesin [Tussin] 100 mg/5 mL Liquid 200 mg PO Q4H PRN PRN (Reason: Cough) RF: 0 gabapentin 800 mg tablet 800 mg PO TID RF: 0 prednisone 20 mg Tablet See Rx Instructions .ROUTE .COMPLEX Qty: 14 RF: 0 pantoprazole 40 mg Tablet,Delayed Release (Dr/Ec) 40 mg PO DAILY@0730 Qty: 30 RF: 0 albuterol sulfate 1.25 mg/3 mL solution for nebulization 1.25 mg inhalation QID PRN (Reason: shortness of breath or wheezing) Qty: 90 RF: 0 Medical Decision Making 55-year-old male presents from care bed where he is living. He describes 4 to 5 days of worsening mild congestion and shortness of breath. He has a history of COPD as well as coronary artery disease with a implanted BiV pacemaker. He arrives to the ER at baseline oxygenation, speaking in full sentences. He is alert and interactive. Arthritis with COPD exacerbation, pneumonitis, pneumonia. Patient IV access established, screening labs obtained in addition to EKG, patient referred for x- ray. He is given parenteral steroids and DuoNeb updraft. Labs note a white count of 11, hematocrit 50, platelets 157. Chemistries reassuring, troponin negative and BNP 107. X-ray reveals no confluent infiltrates or effusions. There is platelike atelectasis in the right lung base. Patient improved with steroids and breathing treatment. He was observed and a repeat troponin obtained. He was seen in the emergency department by pulmonology. Dr. Jensen recommends admission given patient's persistent hypoxia and work of breathing. He may require oxygen on a long-term basis. Lab Data Lab results reviewed: Yes I reviewed the patient's lab results. Labs: Laboratory Results - last 24 hr 05/14/21 05/14/21 05/14/21 10:45 10:45 11:11 WBC Cancelled RBC Cancelled Hgb Cancelled Hct Cancelled MCV Cancelled MCH Cancelled MCHC Cancelled RDW Cancelled Plt Count Cancelled MPV Cancelled Immature Gran % Cancelled Neutrophils % Cancelled Band Neutrophils % Cancelled Lymphocytes % Cancelled Atypical Lymphs % Cancelled Monocytes % Cancelled Eosinophils % Cancelled Basophils % Cancelled Metamyelocytes % Cancelled Myelocytes % Cancelled Promyelocytes % Cancelled Other Cells % Cancelled Nucleated RBC % Cancelled Absolute Neutrophils Cancelled Absolute Lymphocytes Cancelled Absolute Monocytes Cancelled Absolute Eosinophils Cancelled Absolute Basophils Cancelled RBC Morphology Cancelled Polychromasia Cancelled Hypochromasia Cancelled Poikilocytosis Cancelled Basophilic Stippling Cancelled Anisocytosis Cancelled Microcytosis Cancelled Macrocytosis Cancelled Spherocytes Cancelled Tear Drop Cells Cancelled Ovalocytes Cancelled Stomatocytes Cancelled [place] Bodies Cancelled [place] Cells/Echinocytes Cancelled Acanthocytes (Spur) Cancelled Schistocytes Cancelled Sodium Cancelled 140 Potassium Cancelled 4.4 Chloride Cancelled 105 Carbon Dioxide Cancelled 28.6 Anion Gap Cancelled 6.4 BUN Cancelled 17 Creatinine Cancelled 0.9 Estimated GFR/1.73 m2 Cancelled >= 60.00 Glucose Cancelled 117 H Calcium Cancelled 9.3 Total Bilirubin Cancelled 0.3 AST Cancelled 15 ALT Cancelled 42 Alkaline Phosphatase Cancelled 77 Troponin I Cancelled < 0.05 NT-Pro-B Natriuret Pep Cancelled 107 Total Protein Cancelled 7.0 Albumin Cancelled 3.2 L 05/14/21 05/14/21 11:11 14:09 WBC 11.10 H RBC 5.11 Hgb 16.7 Hct 50.4 H MCV 98.6 H MCH 32.7 MCHC 33.1 RDW 13.1 Plt Count 157 MPV 10.9 Immature Gran % 0.8 Neutrophils % 78.9 Band Neutrophils % Lymphocytes % 8.4 Atypical Lymphs % Monocytes % 10.1 Eosinophils % 1.3 Basophils % 0.5 Metamyelocytes % Myelocytes % Promyelocytes % Other Cells % Nucleated RBC % 0 Absolute Neutrophils 8.76 H Absolute Lymphocytes 0.93 L Absolute Monocytes 1.12 H Absolute Eosinophils 0.14 Absolute Basophils 0.06 RBC Morphology Polychromasia Hypochromasia Poikilocytosis Basophilic Stippling Anisocytosis Microcytosis Macrocytosis Spherocytes Tear Drop Cells Ovalocytes Stomatocytes [place] Bodies Millie Cells/Echinocytes Acanthocytes (Spur) Schistocytes Sodium Potassium Chloride Carbon Dioxide Anion Gap BUN Creatinine Estimated GFR/1.73 m2 Glucose Calcium Total Bilirubin AST ALT Alkaline Phosphatase Troponin I < 0.05 NT-Pro-B Natriuret Pep Total Protein Albumin HPI General Mode of arrival: EMS . Date/Time Provider Initiated Documentation: 05/14/21 10:09 . Limitations to Documentation: no limitations . Information obtained by: patient . History of Present Illness 55 year old M presents to the emergency department with the chief complaint of Shortness of breath, described as similar to prior episodes, Quality is described as constant, and is localized to the chest. Patient reports no radiation. Patient started experiencing this day(s) and it has been constant. No rel ieving factors improve symptom(s), No exacerbating factors reported . Patient notes cough and shortness of breath; denies confusion, chest pain, fever/chills, headaches and nausea/vomiting. Patient did receive the following treatments prior to arrival, other (Albuterol) Related Data Home Medications Medication Instructions Recorded Confirmed nitroglycerin 0.4 mg SUBLINGUAL one every 5 07/27/17 05/14/21 mins. x3 #30 tab-cap montelukast 10 mg PO DAILY 03/08/20 05/14/21 benztropine 1 mg PO HS #0 tab 03/17/20 05/14/21 bupropion HCl 300 mg PO QAM #10 tab 03/17/20 05/14/21 pravastatin 20 mg PO QHS #10 tab 03/17/20 05/14/21 clonazepam 2 mg PO BID 05/02/20 04/28/21 bupropion HCl 150 mg PO QAM 01/21/21 05/14/21 ipratropium-albuterol 3 ml IH Q6H #90 ml 01/28/21 05/14/21 naloxone 4 mg/actuation nasal spray 4 mg INTRANASAL Q2-3M PRN 02/06/21 04/28/21 acetaminophen 325 mg capsule 325 - 650 mg PO Q4H PRN PRN 02/18/21 05/14/21 amitriptyline 25 mg tablet 50 mg PO QHS tab 02/18/21 05/14/21 fluticasone 250 mcg-salmeterol 50 1 inh INHALATION BID 02/18/21 05/14/21 mcg/dose blistr powdr for inhalation hydrocodone 5 mg-acetaminophen 325 1 tab PO TID PRN PRN 02/18/21 05/14/21 mg tablet quetiapine 400 mg tablet 400 mg PO HS tab 02/18/21 05/14/21 vortioxetine 5 mg tablet 20 mg PO DAILY tab 02/18/21 05/14/21 calcium carbonate [Calcium Antacid] 200 mg PO Q4H PRN 04/28/21 05/14/21 diphenhydramine HCl [Benadryl] 25 mg PO Q6H PRN 04/28/21 05/14/21 docusate sodium 100 mg PO BID PRN 04/28/21 05/14/21 magnesium hydroxide [Milk of 10 ml PO Q6H PRN 04/28/21 05/14/21 Magnesia] bacitracin 1 applic BID PRN PRN 04/29/21 05/14/21 gabapentin 800 mg PO TID 04/29/21 05/14/21 guaifenesin [Tussin] 200 mg PO Q4H PRN PRN 04/29/21 05/14/21 quetiapine 100 mg PO QHS 04/29/21 05/14/21 albuterol sulfate 1.25 mg INHALATION QID PRN #90 ml 05/01/21 05/14/21 pantoprazole 40 mg PO DAILY@0730 #30 tab 05/01/21 05/14/21 prednisone See Rx Instructions .ROUTE 05/01/21 .COMPLEX #14 tab Previous Rx's Medication Instructions Recorded nitroglycerin 0.4 mg SUBLINGUAL one every 5 07/27/17 mins. x3 #30 tab-cap benztropine 1 mg PO HS #0 tab 03/17/20 bupropion HCl 300 mg PO QAM #10 tab 03/17/20 pravastatin 20 mg PO QHS #10 tab 03/17/20 ipratropium-albuterol 3 ml IH Q6H #90 ml 01/28/21 albuterol sulfate 1.25 mg INHALATION QID PRN #90 ml 05/01/21 pantoprazole 40 mg PO DAILY@0730 #30 tab 05/01/21 prednisone See Rx Instructions .ROUTE 05/01/21 .COMPLEX #14 tab Allergies Allergy/AdvReac Type Severity Reaction Status Date / Time citalopram Allergy Unverified 05/14/21 10:15 oxycodone HCl [From Percocet] AdvReac Addiction Unverified 05/14/21 10:15 General Stated Complaint: RespSymp MOLLY: 2 Review of Systems Narrative: Denies weight gain or peripheral edema. No chest pain. Chronic cough and chronic shortness of breath. History of routine 88 to 90% room air oxygenation. 8 systems reviewed and otherwise negative [facility] Medical History Acquired deformity of left hand Agoraphobia Anxiety Anxiety with depression Arthritis Biventricular implantable cardioverter-defibrillator (ICD) in situ Mode:DDD, Low rate 60bpm, Atrial lead: medtronic 5076, SN: [id number] 09/27/14; RV lead Medtronic 6935M SN: [id number] 09/27/14; LV lead Medtronic 4396, SN; [id number] 09/27/14 (updated 03/11/20) BPH (benign prostatic hyperplasia) Cardiomyopathy Chest pain CHF (congestive heart failure) Chronic pain syndrome Cyst Depression Diabetes Diarrhea Dizziness Erectile dysfunction Fatigue Hallucination Hand paresthesia Heart disease History of alcohol abuse History of suicidal ideation History of tobacco abuse Hyperlipidemia Impacted ear wax LBBB (left bundle branch block) Lung disease Metacarpophalangeal joint pain Nonischemic dilated cardiomyopathy Pacemaker Pain in right hip Panic anxiety syndrome PTSD (post-traumatic stress disorder) Severe chronic obstructive pulmonary disease Skin lesion Systolic and diastolic CHF, chronic Tobacco use Surgical History Status post biventricular pacemaker Family History Mother , 2008 COPD (chronic obstructive pulmonary disease) Social History Smoking/Tobacco Use Status: Current every day Tobacco Type: cigarettes Smoking risk assessment performed?: Yes Alcohol Intake: former Drug use: Never Do you feel safe at home: Yes Do you feel safe in your relationship?: Yes Additional Social history: lives alone Exam Narrative Exam Narrative: GEN: awake, alert, oriented 3. Pleasant, well groomed, interactive. HEAD: Normocephalic, atraumatic ENT: Mucous membranes moist, oropharynx unremarkable, External ear exam unremarkable EYES: PERRL, EOMI NECK: Full ROM, no JUAN, no menigismus CHEST/RESP: Nontender, diminished bilaterally with rhonchi both lung chand CARDIOVASCULAR: RRR, distant. 2+ Rad pulse bilateral ABDOMEN: Soft, nontender, no mass. +Bowel sounds EXT: Full ROM, no edema, no rash Neuro: Grossly normal neurologic exam, conversant, interactive. Psych: Speech fluent, thoughts congruent, affect normal Course Vital Signs Vital signs: Vital Signs Temperature 36.5 C 05/14/21 10:08 Pulse 99 H 05/14/21 10:08 Respiratory Rate 18 05/14/21 10:08 Blood Pressure 112/81 05/14/21 10:08 Pulse Oximetry 88 L 05/14/21 10:08 Temperature 36.5 C 05/14/21 10:08 Temperature Source Skin 05/14/21 10:08 Pulse 99 H 05/14/21 10:08 Respiratory Rate 18 05/14/21 10:08 Respiratory Effort 05/14/21 10:26 Respiratory Depth Normal 05/14/21 10:26 Blood Pressure 112/81 05/14/21 10:08 Blood Pressure Position Supine 05/14/21 10:08 Pulse Oximetry 88 L 05/14/21 10:08 Oxygen Delivery Method Room Air 05/14/21 10:08 Oxygen Flow Rate 0 05/14/21 10:08 Pain Level 0 05/14/21 10:08
[2021-05-14] MEDS: methylPREDNISolone SUCC 125 MG VIAL IVP (11:13)
[2021-05-14] MEDS: Albuterol/Ipratropium 3 ML UPD VIAL UPD ×4 (11:13→20:13)
[2021-05-14 11:30] LABS: Abs Immature Grans 0.09 10^3/uL (0.0-0.06); Absolute Eosinophil Count 0.14 10^3/uL (0.0-0.7); Absolute Lymphocyte Count 0.93 10^3/uL (1.2-3.4); Absolute Monocyte Count 1.12 10^3/uL (0.1-0.8); Basophils % 0.5; Eosinophils % 1.3; HCT 50.4 % (40.0-50.0); HGB 16.7 g/dL (13.5-17.5); Immature Grans % 0.8; Lymphocytes % 8.4; MCH 32.7 pg (27.0-33.0); MCHC 33.1 % (32.0-36.0); MCV 98.6 fL (80-95); MPV 10.9 fL (8.0-11.0); Monocytes % 10.1; Neutrophils % 78.9; Nucleated RBC 0 %; Platelet Count 157 10^3/uL (130-400); RBC 5.11 10^6/uL (4.36-5.78); RDW 13.1 % (11.8-14.1); RDW-SD 48.4 fL
[2021-05-14 11:31] LABS: Absolute Basophil Count 0.06 10^3/uL (0.0-0.2); Absolute Neutrophil Count 8.76 10^3/uL (1.2-6.7)
[2021-05-14 11:42] LABS: ALT 42 U/L (16-63); AST 15 U/L (15-37); Albumin 3.2 g/dL (3.4-5.0); Alkaline Phosphatase 77 U/L (46-116); Anion Gap 6.4 mmol/L (3-11); BUN 17 mg/dL (7-18); Bilirubin, Total 0.3 mg/dL (0.2-1.0); CO2 28.6 mmol/L (21.0-32.0); CREATININE 0.9 mg/dL (0.70-1.30); Calcium 9.3 mg/dL (8.5-10.1); Chloride 105 mmol/L (98-107); Glucose 117 mg/dL (74-106); NT-proBNP 107 pg/mL (<300); Potassium 4.4 mmol/L (3.5-5.1); Sodium 140 mmol/L (136-145)
[2021-05-14 11:43] LABS: Troponin I < 0.05 ng/mL (<0.06)
--- NOTE | 2021-05-14 14:00 | PUCON_ITS ---
General Date Of Service Date of service: 05/14/21 Time of Service: 14:00 Requesting physician: Jesus Wooten Reason for Consult: COPD Exacerbation Assessment and Plan Assessment and plan (1) Acute exacerbation of chronic obstructive pulmonary disease: Status: Acute Assessment and plan: Clinically he is having a COPD exacerbation as well as hypoxia. Respiratory therapy his clinical status appears to not off from his baseline and per my review of the chart he seems to be chronically hypoxic. There have been issues in the past with compliance and willingness to accept the rapies such as oxygen or noninvasive ventilation. Given his clinical picture he should be treated for a COPD exacerbation. As he has recurrent COPD exacerbations he would be a good candidate for either chronic azithromycin or Roflumilast but this will be approached as an outpatient. 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 Ideally he would be referred to CT surgery for possibility of bullectomy but again this is something we would manage as an outpatient. -will manage as as outpatient (3) Current smoker: Status: Acute Assessment and plan: - smoking cessation - will manage as an outpatient History of Present Illness History of Present Illness Chief Complaint: Shortness of Breath Narrative: This is a 55-year-old male with a significant cardiac history as well as COPD who presents to the emergency department with complaints of shortness of breath. He has had several encounters for COPD exacerbations. He presents after 4 to 5 days of worsening shortness of breath. He has had spirometry completed in 2008 that showed moderately severe obstructive airway disease with a normal DLCO at that time. More recently in 2019 he did have a nocturnal oximetry that found his oxygen with consistently between 80 and 89% and this appears to have been completed while on AVAPS tidal volume 400, 16/6 on room air. His last chest CT was completed January 21, 2021 that shows significant apical bullous emphysema with a large predominant left apical bullae that encompasses the entire left upper lobe. Per medical records it says though he is maintained on Advair, Singulair and nebulizers. He is a current smoker however does note that he quit at one point however has restarted. He describes shortness of breath particularly with movement. He denies any chest pain, swelling, blurred vision or lightheadedness. He underwent chest x-ray in the ED which is negative for any pneumonia. I will note that his pulmonary arteries seem generous on this film but may represent pulmonary hypertension, however echo in 2020 shows an RVSP of 37. Review of Systems All systems reviewed & are unremarkable except as noted in HPI and below Cardiovascular Cardiovascular: Reports dyspnea and Reports dyspnea on exertion Respiratory Respiratory: Reports dyspnea, Reports dyspnea on exertion and Reports wheezing Allergic/Immunologic Allergic/Immunologic: Reports wheezing PFSH Medical History Acquired deformity of left hand Agoraphobia Anxiety Anxiety with depression Arthritis Biventricular implantable cardioverter-defibrillator (ICD) in situ Mode:DDD, Low rate 60bpm, Atrial lead: medtronic 5076, SN: [id number] 09/27/14; RV lead Medtronic 6935M SN: [id number] 09/27/14; LV lead Medtronic 4396, SN; TRACIE [id number] 09/27/14 (updated 03/11/20) BPH (benign prostatic hyperplasia) Cardiomyopathy Chest pain CHF (congestive heart failure) Chronic pain syndrome Cyst Depression Diabetes Diarrhea Dizziness Erectile dysfunction Fatigue Hallucination Hand paresthesia Heart disease History of alcohol abuse History of suicidal ideation History of tobacco abuse Hyperlipidemia Impacted ear wax LBBB (left bundle branch block) Lung disease Metacarpophalangeal joint pain Nonischemic dilated cardiomyopathy Pacemaker Pain in right hip Panic anxiety syndrome PTSD (post-traumatic stress disorder) Severe chronic obstructive pulmonary disease Skin lesion Systolic and diastolic CHF, chronic Tobacco use Surgical History Status post biventricular pacemaker Family History Mother , 2008 COPD (chronic obstructive pulmonary disease) Social History Smoking/Tobacco Use Status: Current every day Tobacco Type: cigarettes Smoking risk assessment performed?: Yes Alcohol Intake: former Drug use: Never Do you feel safe at home: Yes Do you feel safe in your relationship?: Yes Additional Social history: lives alone Visit Medication and Allergies Active Medications Generic Name Dose Route Start Last Admin Trade Name Freq PRN Reason Stop Dose Admin IV Miscellaneous Supplies 1 each 05/14/21 10:45 Iv Access IV DIRECTED OJ Sodium Chloride 0 ml 05/14/21 10:34 Normal Saline Flush 10 Ml Syr IVP PRN PRN Allergies citalopram Allergy (Unverified 05/14/21 10:15) oxycodone HCl [From Percocet] Adverse Reaction (Unverified 05/14/21 10:15) Addiction Exam Const General: in distress (pursed lip breathing, speaking in 2 word sentences, retractions) moderate Nutritional Appearance: well nourished [facility] Head: normocephalic Ears: external ears normal and no periauricular adenopathy General nose exam: nasal mucous membranes and turbinates normal Mouth: oropharynx normal and moist mucous membranes Eyes General: appearance normal, both eyes and all related structures Pupils: PERRL Neck Neck: normal visual inspection and no lymphadenopathy Chest Chest: normal inspection of the chest Resp Effort & Inspection: normal respiratory effort, not able to speak in complete se ntences, pursed lip breathing, respiratory distress and retractions supraclavicular Auscultation: no rales, no rhonchi and wheezes expiratory wheezes, lower bilaterally and right upper Cardio Rate: regular rate Rhythm: regular rhythm Heart Sounds: S1 normal, S2 normal and no murmurs Pulses: radial pulses present bilaterally GI Inspection: normal to inspection Palpation: soft Skin General skin exam: no rashes or lesions noted Neuro General: patient alert, patient awake and patient oriented x3 Extrem General: no clubbing, cyanosis or edema Psych Mental Status: mental status grossly normal Affect: normal affect Attitude: cooperative Results Last Vital Signs Temp 36.5 C 05/14/21 10:08 Pulse 87 05/14/21 12:31 Resp 17 05/14/21 12:50 BP 115/97 H 05/14/21 12:46 Pulse Ox 87 L 05/14/21 12:50 Labs Result diagrams: 05/14/21 11:11 05/14/21 11:11 Labs: Laboratory Results - last 24 hr 05/14/21 05/14/21 05/14/21 10:45 10:45 11:11 WBC Cancelled RBC Cancelled Hgb Cancelled Hct Cancelled MCV Cancelled MCH Cancelled MCHC Cancelled RDW Cancelled Plt Count Cancelled MPV Cancelled Immature Gran % Cancelled Neutrophils % Cancelled Band Neutrophils % Cancelled Lymphocytes % Cancelled Atypical Lymphs % Cancelled Monocytes % Cancelled Eosinophils % Cancelled Basophils % Cancelled Metamyelocytes % Cancelled Myelocytes % Cancelled Promyelocytes % Cancelled Other Cells % Cancelled Nucleated RBC % Cancelled Absolute Neutrophils Cancelled Absolute Lymphocytes Cancelled Absolute Monocytes Cancelled Absolute Eosinophils Cancelled Absolute Basophils Cancelled RBC Morphology Cancelled Polychromasia Cancelled Hypochromasia Cancelled Poikilocytosis Cancelled Basophilic Stippling Cancelled Anisocytosis Cancelled Microcytosis Cancelled Macrocytosis Cancelled Spherocytes Cancelled Tear Drop Cells Cancelled Ovalocytes Cancelled Stomatocytes Cancelled [place] Bodies Cancelled Millie Cells/Echinocytes Cancelled Acanthocytes (Spur) Cancelled Schistocytes Cancelled Sodium Cancelled 140 Potassium Cancelled 4.4 Chloride Cancelled 105 Carbon Dioxide Cancelled 28.6 Anion Gap Cancelled 6.4 BUN Cancelled 17 Creatinine Cancelled 0.9 Estimated GFR/1.73 m2 Cancelled >= 60.00 Glucose Cancelled 117 H Calcium Cancelled 9.3 Total Bilirubin Cancelled 0.3 AST Cancelled 15 ALT Cancelled 42 Alkaline Phosphatase Cancelled 77 Troponin I Cancelled < 0.05 NT-Pro-B Natriuret Pep Cancelled 107 Total Protein Cancelled 7.0 Albumin Cancelled 3.2 L 05/14/21 11:11 WBC 11.10 H RBC 5.11 Hgb 16.7 Hct 50.4 H MCV 98.6 H MCH 32.7 MCHC 33.1 RDW 13.1 Plt Count 157 MPV 10.9 Immature Gran % 0.8 Neutrophils % 78.9 Band Neutrophils % Lymphocytes % 8.4 Atypical Lymphs % Monocytes % 10.1 Eosinophils % 1.3 Basophils % 0.5 Metamyelocytes % Myelocytes % Promyelocytes % Other Cells % Nucleated RBC % 0 Absolute Neutrophils 8.76 H Absolute Lymphocytes 0.93 L Absolute Monocytes 1.12 H Absolute Eosinophils 0.14 Absolute Basophils 0.06 RBC Morphology Polychromasia Hypochromasia Poikilocytosis Basophilic Stippling Anisocytosis Microcytosis Macrocytosis Spherocytes Tear Drop Cells Ovalocytes Stomatocytes [place]enson-[place] Bodies [place] Cells/Echinocytes Acanthocytes (Spur) Schistocytes Sodium Potassium Chloride Carbon Dioxide Anion Gap BUN Creatinine Estimated GFR/1.73 m2 Glucose Calcium Total Bilirubin AST ALT Alkaline Phosphatase Troponin I NT-Pro-B Natriuret Pep Total Protein Albumin
[2021-05-14 14:42] LABS: Troponin I < 0.05 ng/mL (<0.06)
[2021-05-14 15:15] LABS: Source Nasal/Nares
--- NOTE | 2021-05-14 15:17 | CMPROGNOTE_ITS ---
- If Service Date Differs Date of service: 05/14/21 Time of Service: 15:17 Care Management Progress Note Davina, Director of the [facility] Care Bed called to inquire as to William's status. She shared that William's respiratory status had been worsening at the Care Bed and [facility] RN was struggling to support him with breathing treatments, only. CM reviewed documentation which appeared William would be returning to the care bed. Davina reported she would need the discharge summary faxed to the Care Bed [phone] and requested a notification call at [phone]. She reported [facility] or [facility] should be utilized for transportation. MIRANDA called the ED, and spoke with [place] and Dr. Wooten who reported William may req uire admission. MIRANDA
--- NOTE | 2021-05-14 15:17 | PDOC.ERCMPRO ---
- If Service Date Differs Date of service: 05/14/21 Time of Service: 15:17 Care Management Progress Note Davina, Director of the [facility] Care Bed called to inquire as to William's status. She shared that William's respiratory status had been worsening at the Care Bed and [facility] RN was struggling to support him with breathing treatments, only. CM reviewed documentation which appeared William would be returning to the care bed. Davina reported she would need the discharge summary faxed to the Care Bed [phone] and requested a notification call at [phone]. She reported [facility] or [employer] should be utilized for transportation. MIRANDA called the ED, and spoke with [place] and Dr. Wooten who reported William may require admission. MIRANDA
[2021-05-14 16:09] LABS: COVID-19 PCR Negative (Negative)
[2021-05-14] MEDS: Enoxaparin 40 MG/0.4 ML SYR SC (20:13)
[2021-05-14] MEDS: clonazePAM 1 MG TAB 2 MG PO (20:16)
[2021-05-14] MEDS: HYDROcodone 5/Acetaminophen 325 TAB PO (20:16)
[2021-05-14] MEDS: Budesonide/Formoterol 160/4.5 6 GM 60 PUFF INH IH (20:17)
[2021-05-14] MEDS: Gabapentin 800 MG TAB PO (20:17)
--- NOTE | 2021-05-14 21:13 | W.PM.HP.N ---
Date of service: 05/14/21 Time of Service: 21:13 Assessment and Plan Assessment and plan (1) Current smoker: Status: Acute Assessment and plan: Has quite in the past. Over nicotine replacement product and encourage cessation. (2) Acute exacerbation of chronic obstructive pulmonary disease: Status: Acute Assessment and plan: Pulmonary consult appreciated. Duonebs and prn albuterol. Therapeutic substitute for his Advair. Given solumedrol 125mg IV in the ED Prednisone 40mg daily starting in the AM (3) Systolic and diastolic CHF, chronic: Status: Chronic Assessment and plan: Echo in February 2020 showed an EF of 55-60%. Currently w/o exacerbation. History of Present Illness History of Present Illness Chief Complaint: Shortness of breath Narrative: This is a 55 year old male with a h/o COPD, chronic combined diastolic and systolic CHF, BPH, DM2. He presented with the c/o SOA. He described 4 to 5 days of worsening mild congestion and shortness of breath. He notes a cough and shortness of breath; denies confusion, chest pain, fever/chills, headaches and nausea/vomiting. CXR in the ED was negative for any acute processes. No evidence of pulmonary edema. WBC count 11.1. Hgb 16.7. In 2019 a nocturnal oximetry showed his oxygen with consistently between 80 and 89%; completed while on AVAPS tidal volume 400, 16/6 on room air. His last chest CT was completed January 21, 2021 that shows significant apical bullous emphysema with a large predominant left apical bullae that encompasses the entire left upper lobe. Review of Systems All systems reviewed & are unremarkable except as noted in HPI and below PFSH Medical History Acquired deformity of left hand Agoraphobia Anxiety Anxiety with depression Arthritis Biventricular implantable cardioverter-defibrillator (ICD) in situ Mode:DDD, Low rate 60bpm, Atrial lead: medtronic 5076, SN: [id number] 09/27/14; RV lead Medtronic 6935M SN: [id number] 09/27/14; LV lead Medtronic 4396, SN; TRACIE [id number] 09/27/14 (updated 03/11/20) BPH (benign prostatic hyperplasia) Cardiomyopathy Chest pain CHF (congestive heart failure) Chronic pain syndrome Cyst Depression Diabetes Diarrhea Dizziness Erectile dysfunction Fatigue Hallucination Hand paresthesia Heart disease History of alcohol abuse History of suicidal ideation History of tobacco abuse Hyperlipidemia Impacted ear wax LBBB (left bundle branch block) Lung disease Metacarpophalangeal joint pain Nonischemic dilated cardiomyopathy Pacemaker Pain in right hip Panic anxiety syndrome PTSD (post-traumatic stress disorder) Severe chronic obstructive pulmonary disease Skin lesion Systolic and diastolic CHF, chronic Tobacco use Surgical History Status post biventricular pacemaker Family History Mother , 2008 COPD (chronic obstructive pulmonary disease) Social History Smoking/Tobacco Use Status: Former Tobacco Use Quit Date: 10/25/15 Pack-years: 120 Smoking risk assessment performed?: Yes Alcohol Intake: former Drug use: Never Do you feel safe at home: Yes Do you feel safe in your relationship?: Yes Additional Social history: lives alone Meds Allergies and Home Medications Allergies Allergy/AdvReac Type Severity Reaction Status Date / Time citalopram Allergy Unverified 05/14/21 10:15 oxycodone HCl [From Percocet] AdvReac Addiction Unverified 05/14/21 10:15 Home Medications Medication Instructions Recorded Confirmed Type nitroglycerin 0.4 mg SUBLINGUAL one every 5 07/27/17 05/14/21 Rx mins. x3 #30 tab-cap montelukast 10 mg PO DAILY 03/08/20 05/14/21 History benztropine 1 mg PO HS #0 tab 03/17/20 05/14/21 Rx bupropion HCl 300 mg PO QAM #10 tab 03/17/20 05/14/21 Rx pravastatin 20 mg PO QHS #10 tab 03/17/20 05/14/21 Rx clonazepam 2 mg PO BID 05/02/20 05/14/21 History bupropion HCl 150 mg PO QAM 01/21/21 05/14/21 History ipratropium-albuterol 3 ml IH Q6H #90 ml 01/28/21 05/14/21 Rx acetaminophen 325 mg capsule 325 - 650 mg PO Q4H PRN PRN 02/18/21 05/14/21 History amitriptyline 25 mg tablet 50 mg PO QHS tab 02/18/21 05/14/21 History fluticasone 250 mcg-salmeterol 50 1 inh INHALATION BID 02/18/21 05/14/21 History mcg/dose blistr powdr for inhalation hydrocodone 5 mg-acetaminophen 325 1 tab PO TID PRN PRN 02/18/21 05/14/21 History mg tablet quetiapine 400 mg tablet 400 mg PO HS tab 02/18/21 05/14/21 History vortioxetine 5 mg tablet 20 mg PO DAILY tab 02/18/21 05/14/21 History calcium carbonate [Calcium Antacid] 200 mg PO Q4H PRN 04/28/21 05/14/21 History diphenhydramine HCl [Benadryl] 25 mg PO Q6H PRN 04/28/21 05/14/21 History docusate sodium 100 mg PO BID PRN 04/28/21 05/14/21 History magnesium hydroxide [Milk of 10 ml PO Q6H PRN 04/28/21 05/14/21 History Magnesia] bacitracin 1 applic BID PRN PRN 04/29/21 05/14/21 History gabapentin 800 mg PO TID 04/29/21 05/14/21 History guaifenesin [Tussin] 200 mg PO Q4H PRN PRN 04/29/21 05/14/21 History quetiapine 100 mg PO QHS 04/29/21 05/14/21 History albuterol sulfate 1.25 mg INHALATION QID PRN #90 ml 05/01/21 05/14/21 Rx pantoprazole 40 mg PO DAILY@0730 #30 tab 05/01/21 05/14/21 Rx prednisone See Rx Instructions .ROUTE 05/01/21 Rx .COMPLEX #14 tab Exam Const General: cooperative, acute distress (Increased work of breathing.) and ill appearing Nutritional Appearance: average body habitus Orientation: alert and oriented x3 Neck Neck: full ROM and no JVD Resp Effort & Inspection: labored Auscultation: diminished lung sounds and wheezes Cardio Rate: regular rate Rhythm: regular rhythm Heart Sounds: S1 normal and S2 normal GI Palpation: soft and nontender Skin General skin exam: no rashes or lesions noted Extrem General: no pedal edema and no calf tenderness Results Labs Result diagrams: 05/14/21 11:11 05/14/21 11:11 Labs: Laboratory Results - last 24 hr 05/14/21 05/14/21 05/14/21 10:45 10:45 11:11 WBC Cancelled RBC Cancelled Hgb Cancelled Hct Cancelled MCV Cancelled MCH Cancelled MCHC Cancelled RDW Cancelled Plt Count Cancelled MPV Cancelled Immature Gran % Cancelled Neutrophils % Cancelled Band Neutrophils % Cancelled Lymphocytes % Cancelled Atypical Lymphs % Cancelled Monocytes % Cancelled Eosinophils % Cancelled Basophils % Cancelled Metamyelocytes % Cancelled Myelocytes % Cancelled Promyelocytes % Cancelled Other Cells % Cancelled Nucleated RBC % Cancelled Absolute Neutrophils Cancelled Absolute Lymphocytes Cancelled Absolute Monocytes Cancelled Absolute Eosinophils Cancelled Absolute Basophils Cancelled RBC Morphology Cancelled Polychromasia Cancelled Hypochromasia Cancelled Poikilocytosis Cancelled Basophilic Stippling Cancelled Anisocytosis Cancelled Microcytosis Cancelled Macrocytosis Cancelled Spherocytes Cancelled Tear Drop Cells Cancelled Ovalocytes Cancelled Stomatocytes Cancelled [place] Bodies Cancelled [place] Cells/Echinocytes Cancelled Acanthocytes (Spur) Cancelled Schistocytes Cancelled Sodium Cancelled 140 Potassium Cancelled 4.4 Chloride Cancelled 105 Carbon Dioxide Cancelled 28.6 Anion Gap Cancelled 6.4 BUN Cancelled 17 Creatinine Cancelled 0.9 Estimated GFR/1.73 m2 Cancelled >= 60.00 Glucose Cancelled 117 H Calcium Cancelled 9.3 Total Bilirubin Cancelled 0.3 AST Cancelled 15 ALT Cancelled 42 Alkaline Phosphatase Cancelled 77 Troponin I Cancelled < 0.05 NT-Pro-B Natriuret Pep Cancelled 107 Total Protein Cancelled 7.0 Albumin Cancelled 3.2 L COVID-19 Source SARS-CoV-2 (PCR) 05/14/21 05/14/21 05/14/21 11:11 14:09 15:10 WBC 11.10 H RBC 5.11 Hgb 16.7 Hct 50.4 H MCV 98.6 H MCH 32.7 MCHC 33.1 RDW 13.1 Plt Count 157 MPV 10.9 Immature Gran % 0.8 Neutrophils % 78.9 Band Neutrophils % Lymphocytes % 8.4 Atypical Lymphs % Monocytes % 10.1 Eosinophils % 1.3 Basophils % 0.5 Metamyelocytes % Myelocytes % Promyelocytes % Other Cells % Nucleated RBC % 0 Absolute Neutrophils 8.76 H Absolute Lymphocytes 0.93 L Absolute Monocytes 1.12 H Absolute Eosinophils 0.14 Absolute Basophils 0.06 RBC Morphology Polychromasia Hypochromasia Poikilocytosis Basophilic Stippling Anisocytosis Microcytosis Macrocytosis Spherocytes Tear Drop Cells Ovalocytes Stomatocytes [place] Bodies [place] Cells/Echinocytes Acanthocytes (Spur) Schistocytes Sodium Potassium Chloride Carbon Dioxide Anion Gap BUN Creatinine Estimated GFR/1.73 m2 Glucose Calcium Total Bilirubin AST ALT Alkaline Phosphatase Troponin I < 0.05 NT-Pro-B Natriuret Pep Total Protein Albumin COVID-19 Source Nasal/Nares SARS-CoV-2 (PCR) Negative Last Vital Signs Temp 36.9 C 05/14/21 20:03 Pulse 93 H 05/14/21 20:03 Resp 15 05/14/21 20:03 BP 122/72 05/14/21 20:03 Pulse Ox 94 05/14/21 20:03
[2021-05-14] MEDS: QUEtiapine 300 MG TAB PO (21:41)
[2021-05-14] MEDS: Benztropine 1 MG TAB PO (21:41)
[2021-05-14] MEDS: Pravastatin 20 MG TAB PO (21:42)
[2021-05-14] MEDS: QUEtiapine 100 MG TAB 200 MG PO (21:42)
[2021-05-14] MEDS: Amitriptyline 25 MG TAB 50 MG PO (21:45)
[2021-05-15] VITALS (14 sets, daily range): BP systolic 101–132; BP diastolic 65–88; PULSE 83–114; RESP 2–28; TEMP 36.2–37.9; O2SAT 88–98
[2021-05-15 07:29] LABS: Anion Gap 6.5 mmol/L (3-11); BUN 21 mg/dL (7-18); CO2 29.5 mmol/L (21.0-32.0); CREATININE 0.8 mg/dL (0.70-1.30); Calcium 9.2 mg/dL (8.5-10.1); Chloride 104 mmol/L (98-107); Glucose 161 mg/dL (74-106); Potassium 4.1 mmol/L (3.5-5.1); Sodium 140 mmol/L (136-145)
[2021-05-15] MEDS: Albuterol/Ipratropium 3 ML UPD VIAL UPD ×4 (08:04→19:39)
[2021-05-15] MEDS: buPROPion-XL 150 MG TABCR 450 MG PO (08:39)
[2021-05-15] MEDS: buPROPion-XL 150 MG TABCR PO (08:39)
[2021-05-15] MEDS: Montelukast 10 MG TAB PO (08:39)
[2021-05-15] MEDS: predniSONE 20 MG TAB 40 MG PO (08:39)
[2021-05-15] MEDS: clonazePAM 1 MG TAB 2 MG PO ×2 (08:40→19:37)
[2021-05-15] MEDS: Pantoprazole 40 MG TABCR PO (08:40)
[2021-05-15] MEDS: Gabapentin 800 MG TAB PO ×3 (08:40→19:37)
--- NOTE | 2021-05-15 09:59 | INITIAL_ITS ---
- If Service Date Differs Date of service: 05/15/21 Time of Service: 09:59 Care Management Initial Assess REASON FOR HOSPITALIZATION:: COPD exacerbation PAST MEDICAL HISTORY/PAST SURGICAL HISTORY:: Medical History. Acquired deformity of left hand. Agoraphobia. Anxiety. Anxiety with depression. Arthritis. Biventricular implantable cardioverter-defibrillator (ICD) in situ. Mode:DDD, Low rate 60bpm, Atrial lead: medtronic 5076, SN: [id number] 09/27/14; RV lead Medtronic 6935M SN: TDL [id number] 09/27/14; LV lead Medtronic 4396, SN; TRACIE [id number] 09/27/14 (updated 03/11/20). BPH (benign prostatic hyperplasia). Cardiomyopathy. Chest pain. CHF (congestive heart failure). Chronic pain syndrome. Cyst. Depression. Diabetes. Diarrhea. Dizziness. Erectile dysfunction. Fatigue. Hallucination. Hand paresthesia. Heart disease. History of alcohol abuse. History of suicidal ideation. History of tobacco abuse. Hyperlipidemia. Impacted ear wax. LBBB (left bundle branch block). Lung disease. Metacarpophalangeal joint pain. Nonischemic dilated cardiomyopathy. Pacemaker. Pain in right hip. Panic anxiety syndrome. PTSD (post-traumatic stress disorder). Severe chronic obstructive pulmonary disease. Skin lesion. Systolic and diastolic CHF, chronic. Tobacco use. Surgical History. Status post biventricular pacemaker PREVIOUS FUNCTIONAL STATUS/SOCIAL/FAMILY SUPPORTS:: William lives alone in a two story house in [place]. He is disabled and spends his time fishing, hunting, and woodworking. William shares he has a few friends he sees occasionally and states he has family nearby but is estranged from them. William reports he is independent with his ADLs, drives, and takes care of his home, but adds it is not as clean as it should be. He states he would love to have someone cook his meals and help clean his house. He is currently staying at the [facility] for stabilization prior to returning home. CURRENT FUNCTIONAL STATUS:: William was sitting up on the side of his bed when MIRANDA met with him. He reported that he is not feeling well today. He is currently requiring O2, which he does not have at baseline. MIRANDA discussed Palliative Care with him, which he stated that he may be up to tomorrow. CM asked for the consult to be ordered. William expressed concern regarding his phone and wallet, as he couldn't find them in his room. CM talked to Rico Pruitt, William's closest friend, and updated him on William's condition. Rico expressed concern for William's house, as he reports that it needs to be cleaned. CM stated that he has a bilingual patient support caseworker in the community (GEOGR[employer] HISTOR[employer]), so this headline writer will discuss the needs that he has that are community based, in an effort to work together to meet those needs. CM will continue to follow. ADVANCE DIRECTIVES:: none on file, CM will offer forms. He may benefit from a Palliative care consult, CM will inquire about this. Has patient been provided with info about the portal/API?: Yes Did the patient sign up for the portal?: No CODE STATUS:: Full Code INSURANCE COVERAGE / FINANCIAL ISSUES:: MCR CURRENT HOME/COMMUNITY SERVICES/EQUIPMENT:: William is a GE[employer]OR[employer] client through [facility]. He has been staying at the Care [facility] recently. 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 PRIMARY CARE PHYSICIAN:: Lorrie Crespo POTENTIAL DISCHARGE NEEDS:: Evaluations for further needs, follow up appointments. PATIENT/FAMILY EDUCATION NEEDS:: Review discharge instructions, discussion of self care needs including ask me three and goals of care. ANTICIPATED BARRIERS TO DISCHARGE:: William is no longer a candidate for the Care [facility] due to his medical needs. TRANSPORTATION:: Via [facility] private vehicle vs GEOGR[employer] HISTORIAN. PLAN:: William will likely return home once medically cleared. He will be driven home via private vehicle by [facility] vs GEOGRAPHICAL HISTORIAN. He will follow up with his PCP and discharge plan of care. CM will continue to follow.
[2021-05-15] MEDS: Budesonide/Formoterol 160/4.5 6 GM 60 PUFF INH IH ×2 (11:00→19:37)
--- NOTE | 2021-05-15 14:49 | W.PM.PROGNOT ---
Date of Service Date of service: 05/15/21 Time of Service: 14:49 Assessment and Plan Assessment and plan (1) Current smoker: Status: Acute Assessment and plan: Has quite in the past. Over nicotine replacement product and encourage cessation. (2) Acute exacerbation of chronic obstructive pulmonary disease: Status: Acute Assessment and plan: Pulmonary consult appreciated. Duonebs and prn albuterol. Therapeutic substitute for his Advair. Given solumedrol 125mg IV in the ED Prednisone 40mg daily now (3) Systolic and diastolic CHF, chronic: Status: Chronic Assessment and plan: Echo in February 2020 showed an EF of 55-60%. Currently w/o exacerbation. Subjective Subjective Patient reports: feels better, tolerating a regular diet, shortness of breath (with exertion and conversation.) and afebrile Exam Const General: cooperative, no acute distress and disheveled Nutritional Appearance: average body habitus Orientation: alert and oriented x3 Neck Neck: full ROM and no JVD Resp Effort & Inspection: other (Mild tachypnea) Auscultation: clear to auscultation bilaterally and diminished lung sounds Cardio Rate: regular rate Rhythm: regular rhythm Heart Sounds: S1 normal and S2 normal GI Palpation: soft and nontender Skin General skin exam: no rashes or lesions noted Extrem General: no pedal edema and no calf tenderness Objective Last Vital Signs Temp 36.5 C 05/15/21 07:35 Pulse 104 H 05/15/21 11:03 Resp 16 05/15/21 08:04 BP 116/73 05/15/21 07:35 Pulse Ox 90 L 05/15/21 11:03 Laboratory Results - last 24 hr 05/14/21 05/15/21 15:10 06:38 Sodium 140 Potassium 4.1 Chloride 104 Carbon Dioxide 29.5 Anion Gap 6.5 BUN 21 H Creatinine 0.8 Estimated GFR/1.73 m2 >= 60.00 Glucose 161 H Calcium 9.2 COVID-19 Source Nasal/Nares SARS-CoV-2 (PCR) Negative
[2021-05-15] MEDS: Enoxaparin 40 MG/0.4 ML SYR SC (17:22)
[2021-05-15] MEDS: HYDROcodone 5/Acetaminophen 325 TAB PO ×2 (18:04→22:43)
[2021-05-15] MEDS: Nicotine 21 MG/24 HR PATCH TD (20:39)
[2021-05-15] MEDS: Acetaminophen 325 MG TAB 650 MG PO (20:40)
[2021-05-15] MEDS: Amitriptyline 25 MG TAB 50 MG PO (21:43)
[2021-05-15] MEDS: QUEtiapine 100 MG TAB 200 MG PO (21:43)
[2021-05-15] MEDS: Benztropine 1 MG TAB PO (21:43)
[2021-05-15] MEDS: QUEtiapine 300 MG TAB PO (21:43)
[2021-05-15] MEDS: Pravastatin 20 MG TAB PO (21:43)
[2021-05-15] MEDS: diphenhydrAMINE 25 MG CAP PO (22:44)
[2021-05-16] VITALS (10 sets, daily range): BP systolic 114–146; BP diastolic 73–79; PULSE 85–103; RESP 4–24; TEMP 36.1–37; O2SAT 86–95
[2021-05-16] MEDS: Albuterol/Ipratropium 3 ML UPD VIAL UPD ×3 (07:44→19:48)
[2021-05-16] MEDS: Budesonide/Formoterol 160/4.5 6 GM 60 PUFF INH IH ×2 (07:44→19:48)
[2021-05-16] MEDS: Pantoprazole 40 MG TABCR PO (08:03)
[2021-05-16] MEDS: Gabapentin 800 MG TAB PO ×3 (08:03→19:48)
[2021-05-16] MEDS: predniSONE 20 MG TAB 40 MG PO (08:03)
[2021-05-16] MEDS: clonazePAM 1 MG TAB 2 MG PO ×2 (08:03→19:48)
[2021-05-16] MEDS: buPROPion-XL 150 MG TABCR 450 MG PO (08:04)
[2021-05-16] MEDS: Montelukast 10 MG TAB PO (08:04)
[2021-05-16] MEDS: buPROPion-XL 150 MG TABCR PO (08:04)
--- NOTE | 2021-05-16 09:31 | W.PULMPROG ---
General Date Of Service Date of service: 05/16/21 Time of Service: 08:00 Requesting physician: Jesus Wooten Subjective Note Note: William is feeling well today and states his breathing is much improved from when he first came in. Exam Const General: no acute distress Nutritional Appearance: well nourished HENMA Head: normocephalic Ears: external ears normal and no periauricular adenopathy General nose exam: nasal mucous membranes and turbinates normal Face and sinus: sinuses nontender Mouth: oropharynx normal and moist mucous membranes Eyes General: appearance normal, both eyes and all related structures Pupils: PERRL Neck Neck: normal visual inspection and no lymphadenopathy Chest Chest: normal inspection of the chest Resp Effort & Inspection: normal respiratory effort Auscultation: clear to auscultation bilaterally, diminished lung sounds on the right, no rales, no rhonchi and no wheezes Cardio Rate: regular rate Rhythm: regular rhythm Heart Sounds: S1 normal, S2 normal and no murmurs Pulses: radial pulses present bilaterally GI Inspection: normal to inspection Palpation: soft Skin General skin exam: no rashes or lesions noted Neuro General: patient alert, patient awake and patient oriented x3 Extrem General: no clubbing, cyanosis or edema Psych Mental Status: mental status grossly normal Affect: normal affect Attitude: cooperative Objective Last Vital Signs Temp 36.1 C L 05/16/21 07:23 Pulse 85 05/16/21 07:23 Resp 16 05/16/21 07:23 BP 127/79 05/16/21 07:23 Pulse Ox 95 05/16/21 07:23 Laboratory Results - last 24 hr 05/15/21 06:38 Sodium 140 Potassium 4.1 Chloride 104 Carbon Dioxide 29.5 Anion Gap 6.5 BUN 21 H Creatinine 0.8 Estimated GFR/1.73 m2 >= 60.00 Glucose 161 H Calcium 9.2 Results Medications Medications: Active Medications Generic Name Dose Route Start Last Admin Trade Name Freq PRN Reason Stop Dose Admin Acetaminophen 650 mg 05/14/21 15:16 05/15/21 20:40 Acetaminophen 325 Mg Tab PO 650 mg Q4H PRN PRN Administration Hydrocodone Bitart/Acetaminophen 1 tab 05/14/21 15:17 05/15/21 22:43 Hydrocodone 5/Acetaminophen 325 Tab PO 1 tab TID PRN PRN Administration Pain Albuterol Sulfate 2.5 mg 05/14/21 15:11 Albuterol 2.5 Mg/3 Ml Inh Soln Vial UPD Q2H PRN PRN Albuterol/Ipratropium 3 ml 05/14/21 16:00 05/16/21 07:44 Albuterol/Ipratropium 3 Ml Upd Vial UPD 3 ml QID OJ Administration Amitriptyline HCl 50 mg 05/14/21 22:00 05/15/21 21:43 Amitriptyline 25 Mg Tab PO 50 mg HS OJ Administration Benztropine Mesylate 1 mg 05/14/21 22:00 05/15/21 21:43 Benztropine 1 Mg Tab PO 1 mg HS OJ Administration Budesonide/Formoterol Fumarate 2 puff 05/14/21 20:00 05/16/21 07:44 Budesonide/Formoterol 160/4.5 6 Gm 60 Puff Inh IH 2 puff BID OJ Administration Bupropion HCl 450 mg 05/15/21 08:30 05/16/21 08:04 Bupropion-Xl 150 Mg Tabcr PO 450 mg QAM OJ Administration Calcium Carbonate 500 mg 05/14/21 15:17 Calcium Carbonate *Tums* 500 Mg Chew PO Q4H PRN PRN Clonazepam 2 mg 05/14/21 20:00 05/16/21 08:03 Clonazepam 1 Mg Tab PO 2 mg BID OJ Administration Dimethicone/Zinc Oxide 0 gm 05/14/21 15:11 [place] Protect Cream 142 Gm Tube TP PRN PRN Diphenhydramine HCl 25 mg 05/14/21 15:17 05/15/21 22:44 Diphenhydramine 25 Mg Cap PO 25 mg Q6H PRN PRN Administration Docusate Sodium 100 mg 05/14/21 15:17 Docusate Sodium 100 Mg Cap PO BID PRN PRN Enoxaparin Sodium 40 mg 05/14/21 18:00 05/15/21 17:22 Enoxaparin 40 Mg/0.4 Ml Syr SC 40 mg Q24H OJ Administration Gabapentin 800 mg 05/14/21 20:00 05/16/21 08:03 Gabapentin 800 Mg Tab PO 800 mg TID OJ Administration IV Miscellaneous Supplies 1 each 05/14/21 10:45 Iv Access IV DIRECTED OJ Montelukast Sodium 10 mg 05/15/21 08:30 05/16/21 08:04 Montelukast 10 Mg Tab PO 10 mg DAILY OJ Administration Nicotine 21 mg 05/14/21 15:16 05/15/21 20:39 Nicotine 21 Mg/24 Hr Patch TD 21 mg DAILY PRN PRN Administration Pantoprazole Sodium 40 mg 05/15/21 07:30 05/16/21 08:03 Pantoprazole 40 Mg Tabcr PO 40 mg DAILY@0730 OJ Administration Patient's Own 1 each 05/15/21 08:30 05/15/21 09:19 Medication ( PO Not Given Vortioxetine [ DAILY OJ Trintellix] 20 Mg Tablet) Polyethylene Glycol 17 gm 05/14/21 15:16 Polyethylene Glycol 3350 17 Gm Packet PO DAILY PRN PRN Constipation Pravastatin Sodium 20 mg 05/14/21 22:00 05/15/21 21:43 Pravastatin 20 Mg Tab PO 20 mg HS OJ Administration Prednisone 40 mg 05/15/21 08:30 05/16/21 08:03 Prednisone 20 Mg Tab PO 40 mg DAILY JO Administration Quetiapine Fumarate 300 mg 05/14/21 22:00 05/15/21 21:43 Quetiapine 300 Mg Tab PO 300 mg HS OJ Administration Quetiapine Fumarate 200 mg 05/14/21 22:00 05/15/21 21:43 Quetiapine 100 Mg Tab PO 200 mg HS OJ Administration Sodium Chloride 0 ml 05/14/21 10:34 Normal Saline Flush 10 Ml Syr IVP PRN PRN Allergies citalopram Allergy (Unverified 05/14/21 10:15) oxycodone HCl [From Percocet] Adverse Reaction (Unverified 05/14/21 10:15) Addiction Labs Result Diagrams: 05/14/21 11:11 05/15/21 06:38 Labs: Laboratory Tests Range/Units 05/14/21 05/14/21 05/14/21 10:45 10:45 11:11 WBC Cancelled RBC Cancelled Hgb Cancelled Hct Cancelled MCV Cancelled MCH Cancelled MCHC Cancelled RDW Cancelled Plt Count Cancelled MPV Cancelled Immature Gran % Cancelled Neutrophils % Cancelled Band Neutrophils % Cancelled Lymphocytes % Cancelled Atypical Lymphs % Cancelled Monocytes % Cancelled Eosinophils % Cancelled Basophils % Cancelled Metamyelocytes % Cancelled Myelocytes % Cancelled Promyelocytes % Cancelled Other Cells % Cancelled Nucleated RBC % Cancelled Absolute Neutrophils Cancelled Absolute Lymphocytes Cancelled Absolute Monocytes Cancelled Absolute Eosinophils Cancelled Absolute Basophils Cancelled RBC Morphology Cancelled Polychromasia Cancelled Hypochromasia Cancelled Poikilocytosis Cancelled Basophilic Stippling Cancelled Anisocytosis Cancelled Microcytosis Cancelled Macrocytosis Cancelled Spherocytes Cancelled Tear Drop Cells Cancelled Ovalocytes Cancelled Stomatocytes Cancelled Henson-Dowagiac Bodies Cancelled Prompton Cells/Echinocytes Cancelled Acanthocytes (Spur) Cancelled Schistocytes Cancelled Sodium Cancelled 140 Potassium Cancelled 4.4 Chloride Cancelled 105 Carbon Dioxide Cancelled 28.6 Anion Gap Cancelled 6.4 BUN Cancelled 17 Creatinine Cancelled 0.9 Estimated GFR/1.73 m2 Cancelled >= 60.00 Glucose Cancelled 117 H Calcium Cancelled 9.3 Total Bilirubin Cancelled 0.3 AST Cancelled 15 ALT Cancelled 42 Alkaline Phosphatase Cancelled 77 Troponin I Cancelled < 0.05 NT-Pro-B Natriuret Pep Cancelled 107 Total Protein Cancelled 7.0 Albumin Cancelled 3.2 L COVID-19 Source SARS-CoV-2 (PCR) (Negative) Range/Units 05/14/21 05/14/21 05/14/21 11:11 14:09 15:10 WBC 11.10 H RBC 5.11 Hgb 16.7 Hct 50.4 H MCV 98.6 H MCH 32.7 MCHC 33.1 RDW 13.1 Plt Count 157 MPV 10.9 Immature Gran % 0.8 Neutrophils % 78.9 Band Neutrophils % Lymphocytes % 8.4 Atypical Lymphs % Monocytes % 10.1 Eosinophils % 1.3 Basophils % 0.5 Metamyelocytes % Myelocytes % Promyelocytes % Other Cells % Nucleated RBC % 0 Absolute Neutrophils 8.76 H Absolute Lymphocytes 0.93 L Absolute Monocytes 1.12 H Absolute Eosinophils 0.14 Absolute Basophils 0.06 RBC Morphology Polychromasia Hypochromasia Poikilocytosis Basophilic Stippling Anisocytosis Microcytosis Macrocytosis Spherocytes Tear Drop Cells Ovalocytes Stomatocytes Henson-Dowagiac Bodies Prompton Cells/Echinocytes Acanthocytes (Spur) Schistocytes Sodium Potassium Chloride Carbon Dioxide Anion Gap BUN Creatinine Estimated GFR/1.73 m2 Glucose Calcium Total Bilirubin AST ALT Alkaline Phosphatase Troponin I < 0.05 NT-Pro-B Natriuret Pep Total Protein Albumin COVID-19 Source Nasal/Nares SARS-CoV-2 (PCR) (Negative) Negative Range/Units 05/15/21 06:38 WBC RBC Hgb Hct MCV MCH MCHC RDW Plt Count MPV Immature Gran % Neutrophils % Band Neutrophils % Lymphocytes % Atypical Lymphs % Monocytes % Eosinophils % Basophils % Metamyelocytes % Myelocytes % Promyelocytes % Other Cells % Nucleated RBC % Absolute Neutrophils Absolute Lymphocytes Absolute Monocytes Absolute Eosinophils Absolute Basophils RBC Morphology Polychromasia Hypochromasia Poikilocytosis Basophilic Stippling Anisocytosis Microcytosis Macrocytosis Spherocytes Tear Drop Cells Ovalocytes Stomatocytes Henson-Dowagiac Bodies Prompton Cells/Echinocytes Acanthocytes (Spur) Schistocytes Sodium 140 Potassium 4.1 Chloride 104 Carbon Dioxide 29.5 Anion Gap 6.5 BUN 21 H Creatinine 0.8 Estimated GFR/1.73 m2 >= 60.00 Glucose 161 H Calcium 9.2 Total Bilirubin AST ALT Alkaline Phosphatase Troponin I NT-Pro-B Natriuret Pep Total Protein Albumin COVID-19 Source SARS-CoV-2 (PCR) (Negative) Assessment and Plan Assessment and plan (1) Acute exacerbation of chronic obstructive pulmonary disease: Status: Acute (2) Lung bullae: Status: Acute Assessment and plan: This is a 55-year-old male who is currently admitted for COPD exacerbation requiring oxygen. Clinically he looks much improved and is no longer in respiratory distress. He does still require some oxygen on my assessment this morning. He is someone who will certainly need outpatient pulmonary care and likely needs home oxygen given his chronic hypoxia. He told me this morning that he is willing to accept home oxygen as a therapy as well as see me in clinic. He is someone that as an outpatient I will evaluate him for Roflumilast or chronic azithromycin care as well as an IV therapy given his frequent exacerbations. His large bullae should certainly be removed however we will evaluate this more in depth at his outpatient visit as he does have some social and mental health issues that may prohibit him from undergoing this procedure COPD Exacerbation - recommend prednisone 40mg for total of 5 days, 30mg for 4 days, 20mg for 4 days 10mg for 3 days, 5mg for 2 days - recommend decreasing his Symbicort to 80-4.5 mcg (COPD dosing) - recommend starting Spiriva 18mcg daily - recommend continuing his home Advair - ambulatory pulse ox prior to D/C - supplemental oxygen as needed for sat goal of 88-92% - should go home with O2 - will get him scheduled for an appointment with me as an outpatient within the next couple of weeks Large bullae - will discuss a CT surgery referral for bullectomy as an outpatient
--- NOTE | 2021-05-16 09:49 | DSE_ITS ---
Date of service: 05/16/21 Time of Service: 09:50 DS: Diagnosis Discharge Diagnosis (1) Acute exacerbation of chronic obstructive pulmonary disease: Status: Acute (2) Lung bullae: Status: Acute Discharge Plan Disposition Patient Disposition: HOME W/HOME HEALTH SERVICE Condition: Improving Discharge Details Reason For Visit: COPD Exacerbation Admit Date/Time: 05/14/21 15:12 Admit Provider: Rodrigo Cruz Attending Provider: Rodrigo Cruz Primary Care Provider: Lorrie Crespo Hospital Course Hospital Course: PCP follow up in 1=2 weeks F/U Home Meds and New Rx's Prescriptions: New Spiriva Respimat 1.25 mcg/actuation mist 2 puff inhalation DAILY Qty: 4 RF: 0 prednisone 10 mg tablet See Rx Instructions .ROUTE .COMPLEX Qty: 45 RF: 0 azithromycin 500 mg tablet 500 mg PO DAILY 3 Days Qty: 3 RF: 0 Continued nitroglycerin 0.4 MG tablet, sublingual 0.4 mg Sublingual one every 5 mins. x3 Qty: 30 RF: 3 quetiapine [Seroquel] 400 mg tablet 400 mg PO HS RF: 0 fluticasone propion-salmeterol [Advair Diskus] 250-50 mcg/dose blister with device 1 inh inhalation BID RF: 0 hydrocodone-acetaminophen 5-325 mg tablet 1 tab PO TID PRN PRN (Reason: Pain) RF: 0 Trintellix 5 mg tablet 20 mg PO DAILY RF: 0 amitriptyline 25 mg tablet 50 mg PO QHS RF: 0 acetaminophen 325 mg capsule 325 - 650 mg PO Q4H PRN PRN (Reason: Pain) RF: 0 montelukast 10 mg tablet 10 mg PO DAILY RF: 0 benztropine 1 mg tablet 1 mg PO HS Qty: 0 RF: 0 bupropion HCl 300 mg tablet extended release 24 hr 300 mg PO QAM Qty: 10 RF: 0 pravastatin 20 mg tablet 20 mg PO QHS Qty: 10 RF: 0 clonazepam 2 mg tablet 2 mg PO BID RF: 0 bupropion HCl 150 mg tablet extended release 24 hr 150 mg PO QAM RF: 0 ipratropium-albuterol 0.5 mg-3 mg(2.5 mg base)/3 mL solution for nebulization 3 ml IH Q6H Qty: 90 RF: 0 magnesium hydroxide [Milk of Magnesia] 400 mg/5 mL Suspension 10 ml PO Q6H PRNRF: 0 diphenhydramine HCl [Benadryl] 25 mg Capsule 25 mg PO Q6H PRNRF: 0 calcium carbonate [Calcium Antacid] 200 mg calcium (500 mg) Tablet,Chewable 200 mg PO Q4H PRNRF: 0 docusate sodium 100 mg Tablet 100 mg PO BID PRNRF: 0 quetiapine 100 mg Tablet 100 mg PO QHS RF: 0 bacitracin 500 unit/gram Ointment 1 applic BID PRN PRNRF: 0 guaifenesin [Tussin] 100 mg/5 mL Liquid 200 mg PO Q4H PRN PRN (Reason: Cough) RF: 0 gabapentin 800 mg tablet 800 mg PO TID RF: 0 prednisone 20 mg Tablet See Rx Instructions .ROUTE .COMPLEX Qty: 14 RF: 0 pantoprazole 40 mg Tablet,Delayed Release (Dr/Ec) 40 mg PO DAILY@0730 Qty: 30 RF: 0 albuterol sulfate 1.25 mg/3 mL solution for nebulization 1.25 mg inhalation QID PRN (Reason: shortness of breath or wheezing) Qty: 90 RF: 0 Discharge Instructions Instructions: COPD (Chronic Obstructive Pulmonary Disease) (ED) Additional Instructions: Continue your regular medications. Add Spiriva to your daily medications. Take prednisone as prescribed on a taper until it is finished. You were seen in the emergency department by Dr. Jensen, they will arrange follow-up for you in the pulmonology clinic. Referrals: Audra Yanez MD [ [facility] STAFF PHYSICIAN] - 05/28/21 3:00 pm Activity:: Activity as Tolerated Equipment/Supplies:: No Equipment Needed Diet:: As Tolerated DS: Data Vitals/I&O Vitals and I&O: Vital Signs Temperature 36.1 C L 05/16/21 07:23 Temperature Source Tympanic 05/16/21 07:23 Pulse 85 05/16/21 07:23 Pulse Rhythm Regular 05/16/21 01:29 Pulse 90 05/14/21 18:50 Respiratory Rate 16 05/16/21 07:23 Respiratory Effort 05/16/21 01:29 Respiratory Depth Normal 05/16/21 01:29 Respiratory Pattern Normal 05/16/21 01:29 Blood Pressure 127/79 05/16/21 07:23 Blood Pressure Mean 92 05/14/21 18:31 Blood Pressure Position Supine 05/14/21 10:08 Pulse Oximetry 95 05/16/21 07:23 Oxygen Delivery Method Room Air 05/16/21 07:23 Oxygen Flow Rate 0 05/16/21 07:23 Pain Level 9 05/16/21 07:23 Intake & Output 05/15/21 05/15/21 05/16/21 11:59 23:59 11:59 Intake Total 610 / 1090 480 / 1090 Output Total 300 / 650 350 / 650 Balance 310 / 440 130 / 440 Intake: Oral 610 / 1090 480 / 1090 Output: Urine 300 / 650 350 / 650 Other: Urine Color Yellow Urine Appearance Clear Clear Comment walked to the bathroom using walker Voiding Methods Toilet Data Completed and Pending Labs on day of discharge: Labs from last 24 hours 05/15/21 06:38 Sodium 140 Potassium 4.1 Chloride 104 Carbon Dioxide 29.5 Anion Gap 6.5 BUN 21 H Creatinine 0.8 Estimated GFR/1.73 m2 >= 60.00 Glucose 161 H Calcium 9.2 PFSH Medical History Acquired deformity of left hand Agoraphobia Anxiety Anxiety with depression Arthritis Biventricular implantable cardioverter-defibrillator (ICD) in situ Mode:DDD, Low rate 60bpm, Atrial lead: medtronic 5076, SN: [id number] 09/27/14; RV lead Medtronic 6935M SN: [id number] 09/27/14; LV lead Medtronic 4396, SN; [id number] 09/27/14 (updated 03/11/20) BPH (benign prostatic hyperplasia) Cardiomyopathy Chest pain CHF (congestive heart failure) Chronic pain syndrome Cyst Depression Diabetes Diarrhea Dizziness Erectile dysfunction Fatigue Hallucination Hand paresthesia Heart disease History of alcohol abuse History of suicidal ideation History of tobacco abuse Hyperlipidemia Impacted ear wax LBBB (left bundle branch block) Lung disease Metacarpophalangeal joint pain Nonischemic dilated cardiomyopathy Pacemaker Pain in right hip Panic anxiety syndrome PTSD (post-traumatic stress disorder) Severe chronic obstructive pulmonary disease Skin lesion Systolic and diastolic CHF, chronic Tobacco use Surgical History Status post biventricular pacemaker Family History Mother , 2008 COPD (chronic obstructive pulmonary disease) Social History Smoking/Tobacco Use Status: Former Tobacco Use Quit Date: 10/25/15 Pack-years: 120 Smoking risk assessment performed?: Yes Alcohol Intake: former Drug use: Never Do you feel safe at home: Yes Do you feel safe in your relationship?: Yes Additional Social history: lives alone
--- NOTE | 2021-05-16 14:11 | W.PM.PROGNOT ---
Date of Service Date of service: 05/16/21 Time of Service: 14:11 Assessment and Plan Assessment and plan (1) Current smoker: Status: Acute Assessment and plan: Nicotrol inhaler Q2H prn Encourage cessation. (2) Lung bullae: Status: Acute Assessment and plan: He would possibly be a candidate for excision of the left lung large bullous lesion. He will follow up with pulmonary medicine for further discussion. (3) Acute exacerbation of chronic obstructive pulmonary disease: Status: Acute Assessment and plan: Improving. Goal of O2 saturations is 88-92%; he is now in the range on RA when at rest. However, with ambulation today his O2 saturation decreased to 85%. Cont symbicort, Duonebs, prn albuterol. Cont prednsione 40mg daily. (4) PTSD (post-traumatic stress disorder): Status: Chronic Assessment and plan: H/O childhood trauma. Depression. Cont Buproprion and Seroquel. (5) Biventricular implantable cardioverter-defibrillator (ICD) in situ: Status: Chronic Assessment and plan: HR stable. (6) Systolic and diastolic CHF, chronic: Status: Chronic Assessment and plan: No acute exacerbation. Euvolemic (7) Discharge planning issues: Status: Acute Assessment and plan: Pt has been in a carebed but is now discharged from there. Care managment is following. He does have a home that he will return to at time of d/c. He states he will accept homehealth nursing. He has, though, in the past refused to allow them into his home. Subjective Subjective Patient reports: no new complaints, feels better, tolerating a regular diet and afebrile; denies nausea and vomiting Interval history since last seen: Pt continues to have dyspnea on exertion. No CP/palpitations. Exam Const General: cooperative and no acute distress Nutritional Appearance: average body habitus Orientation: alert and oriented x3 Chest Chest: normal palpation of entire chest wall Resp Effort & Inspection: normal respiratory effort Auscultation: clear to auscultation bilaterally and diminished lung sounds Cardio Rate: regular rate Rhythm: regular rhythm Heart Sounds: S1 normal and S2 normal GI Palpation: soft and nontender Extrem General: no pedal edema and no calf tenderness Objective Last Vital Signs Temp 36.1 C L 05/16/21 07:23 Pulse 85 05/16/21 07:23 Resp 16 07/23/21 07:23 BP 127/79 05/16/21 07:23 Pulse Ox 93 05/16/21 12:07
[2021-05-16] MEDS: Azithromycin 250 MG TAB 500 MG PO (15:26)
[2021-05-16] MEDS: Albuterol 2.5 MG/3 ML INH SOLN VIAL UPD (15:43)
--- NOTE | 2021-05-16 16:14 | CMPROGNOTE_ITS ---
- If Service Date Differs Date of service: 05/16/21 Time of Service: 16:14 Care Management Progress Note S/O: William was sitting up on the edge of his bed when CM met with him. He reported that the MD had stated that he was discharging, but then decided to keep him to monitor his oxygen requirements. He is agreeable to remaining at [facility]. CM talked to his therapist, Toña Orosco ([phone] x3; [phone]). She reported that William has one form that continuous churn buttermaker SUPRIYA is waiting for, in order for him to be approved for LTD, which will provide additional help at home. CM also talked to his CARPET FINISHING SUPERVISOR case managers, SARABJIT Hamilton, who reported that she continues to work on William's community needs. CM notified [facility] that William will require new HH services upon discharge. CM will continue to follow. A: William is a 55 year old male admitted to [facility] on 05/14/21 with COPD ex acerbation. P: William will return home when medically cleared. He will have new HH RN, PT, OT, OIL AND GAS SUPERINTENDENT. CM informed [facility] of this need, as it may arise over the weekend. He will transport home via private vehicle by CARPET FINISHING SUPERVISOR case managers vs [facility]. He will follow up with Pulmonology, his PCP, and his discharge plan of care. CM will continue to follow. - MH Services (Omit if N/A) Current MH Services: CARPET FINISHING SUPERVISOR
--- NOTE | 2021-05-16 16:14 | PDOC.CMPRO ---
- If Service Date Differs Date of service: 05/16/21 Time of Service: 16:14 Care Management Progress Note S/O: William was sitting up on the edge of his bed when CM met with him. He reported that the MD had stated that he was discharging, but then decided to keep him to monitor his oxygen requirements. He is agreeable to remaining at [facility]. CM talked to his therapist, Toña Orosco ([phone]; [phone]). She reported that William has one form that terminal superintendent SUPRIYA is waiting for, in order for him to be approved for LTD, which will provide additional help at home. CM also talked to his BAGMAN/WOMAN lead case manager, SARABJIT Hamilton, who reported that she continues to work on William's community needs. CM notified [facility] that William will require new HH services upon discharge. CM will continue to follow. A: William is a 55 year old male admitted to [facility] on 05/14/21 with COPD exacerbation. P: William will return home when medically cleared. He will have new HH RN, PT, OT, MASTER PLUMBER. CM informed [facility] of this need, as it may arise over the weekend. He will transport home via private vehicle by BAGMAN/WOMAN lead case manager vs [facility]. He will follow up with Pulmonology, his PCP, and his discharge plan of care. CM will continue to follow. - MH Services (Omit if N/A) Current MH Services: BAGMAN/WOMAN
--- NOTE | 2021-05-16 17:14 | PHA.REVIEW ---
Pharmacy Admission Review - Admission Clinical Review (Last Reviewed 05/16/21 @ 09:52 by Rodrigo Cruz MD) Current smoker (Acute) Lung bullae (Acute) Acute exacerbation of chronic obstructive pulmonary disease (Acute) Discharge planning issues (Acute) citalopram Allergy (Unverified 05/14/21 10:15) oxycodone HCl [From Percocet] Adverse Reaction (Unverified 05/14/21 10:15) Addiction Resuscitation Status Full Code Height 5 ft 7 in Weight 77.111 kg - Renal Dosing Renal Dosing: BUN 21 mg/dL (7-18) H 05/15/21 06:38 Creatinine 0.8 mg/dL (0.70-1.30) 05/15/21 06:38 Medications needing adjustments: Reviewed - Anticoagulation Anticoagulation: Hgb 16.7 g/dL (13.5-17.5) 05/14/21 11:11 Hct 50.4 % (40.0-50.0) H 05/14/21 11:11 Plt Count 157 10^3/uL (130-400) 05/14/21 11:11 Creatinine 0.8 mg/dL (0.70-1.30) 05/15/21 06:38 DVT Prophylaxis: Reviewed Medications: Enoxaparin Therapeutic Anticoagulation: N/A - Opiate Usage Evaluate Pain Scale/Pains Meds: Reviewed Scheduled Bowel Reg ordered if on Opiates?: Yes - Relevant Labs Sodium 140 mmol/L (136-145) 05/15/21 06:38 Potassium 4.1 mmol/L (3.5-5.1) 05/15/21 06:38 Chloride 104 mmol/L (98-107) 05/15/21 06:38 Electrolytes, C-Reactive P, ESR: Reviewed - DM Control DM Control: Glucose 161 mg/dL (74-106) H 05/15/21 06:38 Insulin Dosing: N/A - Heart Failure/ID Heart Failure/ID: Troponin I < 0.05 ng/mL (<0.06) 05/14/21 14:09 NT-Pro-B Natriuret Pep 107 pg/mL (<300) 05/14/21 11:11 EF%, TEOFILO's, B-Blockers, Diuretics: Reviewed - BP Control BP Control: Blood Pressure 127/79 If elevated: Reviewed - Qtc Review If Elevated: Reviewed - IV to PO Switch IV Medications: Reviewed - Home Meds Home Med List reviewed: Intervened Relevent Home Meds Not ordered & why?: spiriva -- pt does face financial barriers due to high copays so may not have been able to refill recently, last filled in january for 3 mo supply via mail order pharmacy, dr. maria did recommend adding -- will mention in AM meeting - Current meds Current Medication Order Review: Reviewed
[2021-05-16] MEDS: Enoxaparin 40 MG/0.4 ML SYR SC (17:46)
[2021-05-16] MEDS: HYDROcodone 5/Acetaminophen 325 TAB PO (17:47)
[2021-05-16] MEDS: QUEtiapine 300 MG TAB PO (21:21)
[2021-05-16] MEDS: Benztropine 1 MG TAB PO (21:21)
[2021-05-16] MEDS: Pravastatin 20 MG TAB PO (21:21)
[2021-05-16] MEDS: Amitriptyline 25 MG TAB 50 MG PO (21:22)
[2021-05-16] MEDS: QUEtiapine 100 MG TAB 200 MG PO (21:22)
[2021-05-17] VITALS (11 sets, daily range): BP systolic 115–130; BP diastolic 77–89; PULSE 81–110; RESP 4–24; TEMP 36.3–36.7; O2SAT 87–95
[2021-05-17 06:37] LABS: Platelet Count 163 10^3/uL (130-400)
[2021-05-17] MEDS: Azithromycin 250 MG TAB 500 MG PO (07:25)
[2021-05-17] MEDS: buPROPion-XL 150 MG TABCR 450 MG PO (07:25)
[2021-05-17] MEDS: Montelukast 10 MG TAB PO (07:26)
[2021-05-17] MEDS: clonazePAM 1 MG TAB 2 MG PO ×2 (07:26→20:50)
[2021-05-17] MEDS: Pantoprazole 40 MG TABCR PO (07:26)
[2021-05-17] MEDS: predniSONE 20 MG TAB 40 MG PO (07:26)
[2021-05-17] MEDS: Gabapentin 800 MG TAB PO ×3 (07:26→20:50)
[2021-05-17] MEDS: Albuterol/Ipratropium 3 ML UPD VIAL UPD ×4 (07:42→20:50)
[2021-05-17] MEDS: Budesonide/Formoterol 160/4.5 6 GM 60 PUFF INH IH (07:58)
[2021-05-17] MEDS: HYDROcodone 5/Acetaminophen 325 TAB PO ×3 (10:55→21:04)
--- NOTE | 2021-05-17 12:12 | W.PM.PROGNOT ---
Date of Service Date of service: 05/17/21 Time of Service: 12:12 Assessment and Plan Assessment and plan (1) Acute exacerbation of chronic obstructive pulmonary disease: Status: Acute Assessment and plan: Continues to improve. Continue azithromycin, prednisone taper, scheduled and prn nebs, symbicort. Evaluated by pulmonology who feels that the patient might benefit from bullectomy - will need outpatient CT surgery eval. Requiring 1L of O2 on ambulation - new oxygen order for the patient. (2) Lung bullae: Status: Acute Assessment and plan: As above (3) Current smoker: Status: Acute Assessment and plan: Continue nicotine replacement while in the hospital. Cessation advised. (4) Systolic and diastolic CHF, chronic: Status: Chronic Assessment and plan: Euvolemic at this time - no change in tx. (5) Biventricular implantable cardioverter-defibrillator (ICD) in situ: Status: Chronic Assessment and plan: Due to above. Not being monitored on tele. F/u w/ EP as outpatient. (6) PTSD (post-traumatic stress disorder): Status: Chronic Assessment and plan: H/O childhood trauma. Depression. Cont Buproprion and Seroquel. (7) DVT prophylaxis: Status: Acute Assessment and plan: SC lovenox (8) Discharge planning issues: Status: Acute Assessment and plan: Needs 1L of O2 on ambulation on discharge - new order. Patient's friend is verbalizing concerns about safety of his home environment. PT is consulted due to unsteadiness. Pt has been in a carebed but is now discharged from there. He will need new HH services (nursing, PT, OT, MUSEUM ASSISTANT). Subjective Subjective Interval history since last seen: I know I sound bad but everything is actually better. Denies dizziness, chest pain. States he does not feel short of breath at rest and did not feel short of breath with activity today. Cough has been dry. Denies n/v. Enjoying lunch. 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 The pain is in his bones and joints. Vicodyn helps. RT and nursing note that the patient is not steady on his feet. Patient's friend Rico had called the hospital today stating that the patient's home is not liveable and that he feels the patient is not able to take care of himself in it. Exam Narrative Exam Narrative: General: Pleasant middle-aged male, sitting at the side of the bed eating lunch, coughing ocassionally (dry), does not appear dyspneic/tachypenic/cyanotic HEENT: EOMI, MMM Heart: RRR, no m/r/g Lungs: expiratory wheezing bilaterally which clears post coughing. Diminished breath sounds at B bases. Abdomen: soft, nontender Extremities: no edema BLE's Objective Last Vital Signs Temp 36.3 C L 05/17/21 07:25 Pulse 100 H 05/17/21 08:07 Resp 24 05/17/21 08:07 BP 130/85 05/17/21 07:25 Pulse Ox 91 L 05/17/21 08:58 Laboratory Results - last 24 hr 05/17/21 06:26 Plt Count 163
[2021-05-17] MEDS: Acetaminophen 325 MG TAB 650 MG PO (12:24)
--- NOTE | 2021-05-17 12:35 | NUR.NOTE ---
Nursing Note: Patient's friend, Rico Brennan, contacted the unit and reported the patient's residence was not livable and patient was not able to care for self at home. He requested for other options to be considered, such as rehab. MD and charge nurse notified. Rico Wilsonmary phone number [phone]. He is on [employer]IP[employer].
[2021-05-17] MEDS: Fluticasone NASAL SPRAY 16 GM BTL NS (14:45)
[2021-05-17] MEDS: Enoxaparin 40 MG/0.4 ML SYR SC (17:53)
[2021-05-17] MEDS: Budesonide/Formoterol 80/4.5 6.9 GM 60 PUFF INH IH (20:50)
[2021-05-17] MEDS: QUEtiapine 300 MG TAB PO (21:04)
[2021-05-17] MEDS: Benztropine 1 MG TAB PO (21:04)
[2021-05-17] MEDS: QUEtiapine 100 MG TAB 200 MG PO (21:05)
[2021-05-17] MEDS: diphenhydrAMINE 25 MG CAP PO (21:05)
[2021-05-17] MEDS: Amitriptyline 25 MG TAB 50 MG PO (21:05)
[2021-05-17] MEDS: Pravastatin 20 MG TAB PO (21:05)
[2021-05-18 06:50] LABS: Abs Immature Grans 0.11 10^3/uL (0.0-0.06); Absolute Basophil Count 0.05 10^3/uL (0.0-0.2); Absolute Lymphocyte Count 1.75 10^3/uL (1.2-3.4); Absolute Monocyte Count 0.74 10^3/uL (0.1-0.8); Absolute Neutrophil Count 4.78 10^3/uL (1.2-6.7); Basophils % 0.7; Eosinophils % 1.3; HCT 49.8 % (40.0-50.0); HGB 16.5 g/dL (13.5-17.5); Immature Grans % 1.5; Lymphocytes % 23.2; MCH 32.4 pg (27.0-33.0); MCHC 33.1 % (32.0-36.0); MCV 97.6 fL (80-95); MPV 10.4 fL (8.0-11.0); Monocytes % 9.8; Neutrophils % 63.5; Nucleated RBC 0 %; Platelet Count 166 10^3/uL (130-400); RDW 12.4 % (11.8-14.1); RDW-SD 44.8 fL; WBC 7.53 10^3/uL (4.4-10.8)
[2021-05-18 07:02] LABS: Anion Gap 6.5 mmol/L (3-11); BUN 16 mg/dL (7-18); CO2 30.5 mmol/L (21.0-32.0); CREATININE 0.9 mg/dL (0.70-1.30); Chloride 105 mmol/L (98-107); Glucose 115 mg/dL (74-106); Magnesium 2.2 mg/dL (1.8-2.4); Potassium 3.9 mmol/L (3.5-5.1); Sodium 142 mmol/L (136-145)
[2021-05-18 07:15] VITALS: BP 117/78; PULSE 100; RESP 20; TEMP 36
[2021-05-18 07:40] VITALS: PULSE 97; RESP 20; RESP 4; O2SAT 92
[2021-05-18] MEDS: Albuterol/Ipratropium 3 ML UPD VIAL UPD ×4 (07:40→20:17)
[2021-05-18] MEDS: Budesonide/Formoterol 80/4.5 6.9 GM 60 PUFF INH IH ×2 (07:54→20:17)
[2021-05-18] MEDS: Nicotine 14 MG/24 HR PATCH TD (08:06)
[2021-05-18] MEDS: buPROPion-XL 150 MG TABCR 450 MG PO (08:08)
[2021-05-18] MEDS: Gabapentin 800 MG TAB PO ×3 (08:08→20:18)
[2021-05-18] MEDS: Montelukast 10 MG TAB PO (08:08)
[2021-05-18] MEDS: predniSONE 20 MG TAB 40 MG PO (08:08)
[2021-05-18] MEDS: Pantoprazole 40 MG TABCR PO (08:08)
[2021-05-18] MEDS: Azithromycin 250 MG TAB 500 MG PO (08:08)
[2021-05-18] MEDS: clonazePAM 1 MG TAB 2 MG PO ×2 (08:08→20:18)
[2021-05-18] MEDS: HYDROcodone 5/Acetaminophen 325 TAB PO ×3 (08:14→20:17)
--- NOTE | 2021-05-18 10:14 | IN_ITS ---
Date of service: 05/18/21 Time of Service: 09:30 PT Notes Visit Reasons: COPD Exacerbation Physical Therapy Inpatient Initial Evaluation Date: 05/18/21 Referring Doctor: Lore Lynne MD PT Orders: PT CONSULT: Limited ability Precautions: Fall. Standard. Activity as tolerated. Patient Profile/Admitting Diagnosis: William is a 55-year-old male with a h/o COPD, chronic combined diastolic and systolic CHF, BPH, DM2. He presented with the c/o SOA. He described 4 to 5 days of worsening mild congestion and shortness of breath. He notes a cough and shortness of breath; denies confusion, chest pain, fever/chills, headaches and nausea/vomiting. PMHX: Medical History Acquired deformity of left hand Agoraphobia Anxiety Anxiety with depression Arthritis Biventricular implantable cardioverter-defibrillator (ICD) in situ Mode:DDD, Low rate 60bpm, Atrial lead: medtronic 5076, SN: [id number] 09/27/14; RV lead Medtronic 6935M SN: [id number] 09/27/14; LV lead Medtronic 4396, SN; [id number] 09/27/14 (updated 03/11/20) BPH (benign prostatic hyperplasia) Cardiomyopathy Chest pain CHF (congestive heart failure) Chronic pain syndrome Cyst Depression Diabetes Diarrhea Dizziness Erectile dysfunction Fatigue Hallucination Hand paresthesia Heart disease History of alcohol abuse History of suicidal ideation History of tobacco abuse Hyperlipidemia Impacted ear wax LBBB (left bundle branch block) Lung disease Metacarpophalangeal joint pain Nonischemic dilated cardiomyopathy Pacemaker Pain in right hip Panic anxiety syndrome PTSD (post-traumatic stress disorder) Severe chronic obstructive pulmonary disease Skin lesion Systolic and diastolic CHF, chronic Tobacco use Surgical History Status post biventricular pacemaker Social History/Home Situation: William notes that he has been staying in a Care bed since being discharged from the hospital in early April or here and there. Lives alone in an apartment building with 12 steps to enter without rails. Does not use any assistive device. However does have a walker if needed per his report. Has family nearby but has been estranged from them for a long time now. Notes of 2 friends that assist him in the area. States that he currently has no means of transportation. Has not been able to do regular grocery shopping. Equipment Owned/DME: FWW Subjective: Agreeable to PT consult. Reports being dizzy and shaky. Requested to sit down after standing bedside for 5 minutes. No LOB.Denies chest pain and headache. Objective: General Observation: IV access in R UE. Mental Status: Appears withdrawn. Alert and oriented as to person and place. Response time to questions slow. Pain: None reported ROM: Right Upper Extremity: Shoulder Flexion WFL. Shoulder abduction WFL. Elbow flexion WFL. Wrist flexion WFL. Opening and closing of hand WFL. Left Upper Extremity: Shoulder Flexion WFL. Shoulder abduction WFL. Elbow flexion WFL. Wrist flexion WFL. Opening and closing of hand WFL. Right Lower Extremity: Hip flexion WFL. Hip abduction WFL. Knee flexion WFL. Ankle dorsiflexion WFL. Ankle plantarflexion WFL. Left Lower Extremity: Hip flexion WFL. Hip abduction WFL. Knee flexion WFL. Ankle dorsiflexion WFL. Ankle plantarflexion WFL. Strength: Right Upper Extremity: Shoulder flexors 4/5. Shoulder abductors 4/5. Elbow flexors 5/5. Elbow extensors 5/5. Landscape Nurseryman strong. Left Upper Extremity: Shoulder flexors 4/5. Shoulder abductors 4/5. Elbow fl exors 5/5. Elbow extensors 5/5. Landscape Nurseryman strong. Right Lower Extremity: Hip flexors 4/5. Hip abductors 4/5. Knee flexors 4/5. Knee extensors 4/5. Ankle dorsiflexors 4/5. Ankle plantarflexors 4/5. Left Lower Extremity: Hip flexors 4/5. Hip abductors 4/5. Knee flexors 4/5. Knee extensors 4/5. Ankle dorsiflexors 4/5. Ankle plantarflexors 4/5. Sensation: Intact as to pain and light pressure on bilateral lower extremities. Bed Mobility/Transfers: Sit to stand standby assist Stand to sit standby assist Gait: Not assessed due to patients complaint of dizziness upon standing. O2 saturation ranging from 84-94% with use of O2 via nasal canula at 1 liter. Continued cueing needed for proper breathing. Patient is a mouth breather and has a difficult time breathing through his nose. Most of session spent really cueing on proper breathing to adequately utilize O2 via nasal cannula. Spent 15 minutes sitting bedside returning patient in to supine position post session. Balance: Static Sitting: Normal Dynamic Sitting: Good Static Standing: Fair Dynamic Standing: Fair Special Tests: Mobility Limitations Standardized Measure [facility] AM-PAC 6 clicks Basic Mobility Inpatient Short Form: Raw Score: 20 CMS Score: 36% deficit Informed Consent/Education: Patient instructed in purpose of PT consult and plan of care. Assessment: Patient demonstrates difficulty with ambulation, impairment in balance, unsteadiness in gait with decreased O2 saturation with any activity on 1 liter of O2 via nasal cannula, and sudden onset dizziness which all increase risk for falling. William is a 55-year-old male who presented to the hospital with acute exacerbation of COPD. Patient presents with clinical signs and symptoms consistent with current/admitting diagnoses that have resulted to mobility limitations, gait instability, generalized weakness, and impairment of motor control as demonstrated by the following impairment level findings: 1. Impaired standing balance 2. Impaired activity tolerance 3. Generalized weakness Impairments are contributing to the following functional limitations: 1. Increase completion time for mobility ADL performance 2. Increased fall risk 3. Inability to negotiate steps alone safely 4. Increased dependence with transfers Patient is assessed as a 58368 moderate complexity based on the following: History: 55-year-old male with impairment level findings, functional limitations, and medical history as indicated above Examination: Demonstrable impairment in strength, balance, and mobility level with underlying impairments and functional limitations as documented above Presentation: Evolving Decision Makin moderate complexity Goals: Goals X1 week 1. Sit-Stand independent 2. Stand-Sit independent 3. Bed-Chair independent 4. Chair-Bed independent 5. Independent gait on level surface with use of a single-point cane for at least 300 feet without report of pain nor dyspnea 6. Independent stair negotiation while holding onto bilateral rails for at least 15 steps without report of pain nor dyspnea 7. Independent with home exercise program 8. Good static and dynamic standing balance/tolerance Plan of Care/Treatment Plan: 1-2x/day, 7 days/week x 1 week. Initiate Physical Therapy intervention for strengthening, bed mobility, transfers, gait, stairs, balance training, use of assistive device. DISCHARGE RECOMMENDATIONS: Patient will benefit from home health services post discharge once medically cleared. TREATMENT CODE/TIME: 86100 x 40 minutes beginning at 9:30 AM. Thank you for the opportunity to participate in the care of this patient. Ute Mercer, MPT [facility] [place], [place] Disclaimer: This note was created using [employer] voice recognition software. It was reviewed for major content. However, there may be multiple small discrepancies and errors due to the voice recognition aspects of the software.
[2021-05-18 12:44] VITALS: PULSE 105; RESP 20; RESP 4; O2SAT 94
[2021-05-18 12:53] VITALS: PULSE 107; RESP 20; RESP 5; O2SAT 93
--- NOTE | 2021-05-18 13:38 | PGE_ITS ---
Date of Service Date of service: 05/18/21 Time of Service: 13:39 Assessment and Plan Assessment and plan (1) Acute exacerbation of chronic obstructive pulmonary disease: Status: Acute Assessment and plan: Improving. Continue azithromycin, prednisone taper (pulmonology recommends prednisone 40 mg for 5 days - today is day 4/5, 30 mg for 4 days, 20 mg for 4 days, 10 mg for 3 d ays, 5 mg for 2 days), scheduled and prn nebs, symbicort. Evaluated by pulmonology who feels that the patient might benefit from bullectomy - will need outpatient CT surgery eval. Requiring 1L of O2 on ambulation - new oxygen order for the patient. (2) Lung bullae: Status: Acute Assessment and plan: As above (3) Current smoker: Status: Acute Assessment and plan: Continue nicotine replacement while in the hospital. Cessation advised. (4) Systolic and diastolic CHF, chronic: Status: Chronic Assessment and plan: Euvolemic at this time - no change in tx. (5) Biventricular implantable cardioverter-defibrillator (ICD) in situ: Status: Chronic Assessment and plan: Due to above. Not being monitored on tele. F/u w/ EP as outpatient. (6) PTSD (post-traumatic stress disorder): Status: Chronic Assessment and plan: H/O childhood trauma. Depression. Cont Buproprion and Seroquel. (7) DVT prophylaxis: Status: Acute Assessment and plan: SC lovenox (8) Discharge planning issues: Status: Acute Assessment and plan: Needs 1L of O2 on ambulation on discharge - new order. Will need FWW. Concerns whether it will be narrow enough to navigate his hallways. Patient's friend is verbalizing concerns about safety of his home environment. Pt has been in a care bed but is now discharged from there. He will need new HH services (nursing, PT, OT, LIGHTING ENGINEER). Subjective Subjective Interval history since last seen: Feels better. States that he would not be able to walk in his house with the walker he was provided here. He indicates that there is a different walker that the person at the care bed was working on that he thinks will be ok. He thinks he will be safe at home. There is plenty of space. Denies dizziness, chest pain, shortness of breath, nausea. Exam Narrative Exam Narrative: General: Pleasant middle-aged male, sitting at the side of the bed eating lunch, looks better than yesterday, does not appear dyspneic/tachypenic/cyanotic HEENT: EOMI, MMM Heart: RRR, no m/r/g Lungs: expiratory wheezing bilaterally which clears post coughing. Diminished breath sounds at B bases. Abdomen: soft, nontender Extremities: no edema BLE's Objective Last Vital Signs Temp 36.0 C L 05/18/21 07:15 Pulse 107 H 05/18/21 12:53 Resp 20 05/18/21 12:53 BP 117/78 05/18/21 07:15 Pulse Ox 93 05/18/21 12:53 Laboratory Results - last 24 hr 05/18/21 05/18/21 06:33 06:33 WBC 7.53 RBC 5.10 Hgb 16.5 Hct 49.8 MCV 97.6 H MCH 32.4 MCHC 33.1 RDW 12.4 Plt Count 166 MPV 10.4 Immature Gran % 1.5 Neutrophils % 63.5 Lymphocytes % 23.2 Monocytes % 9.8 Eosinophils % 1.3 Basophils % 0.7 Nucleated RBC % 0 Absolute Neutrophils 4.78 Absolute Lymphocytes 1.75 Absolute Monocytes 0.74 Absolute Eosinophils 0.10 Absolute Basophils 0.05 Sodium 142 Potassium 3.9 Chloride 105 Carbon Dioxide 30.5 Anion Gap 6.5 BUN 16 Creatinine 0.9 Estimated GFR/1.73 m2 >= 60.00 Glucose 115 H Calcium 9.0 Magnesium 2.2
[2021-05-18 15:22] VITALS: BP 125/80; PULSE 95; RESP 17; TEMP 36.9; O2SAT 92
[2021-05-18 17:08] VITALS: PULSE 97; RESP 20; RESP 5; O2SAT 95
[2021-05-18] MEDS: Enoxaparin 40 MG/0.4 ML SYR SC (17:35)
--- NOTE | 2021-05-18 18:40 | RESPIRATORY ---
05/18/21-Pt has qualified for 1 LPM NC on ambulation for home O2 . Per paperwork has not been sent in to DME as it's the weekend and unsure where Pt will be discharging to as Pt arrived here from Care Bed and his neighbor has communicated he feels d/c to home would be unsafe for the Pt. Care Managers will be apart of this discussion on Wednesday (05/19) .
[2021-05-18] MEDS: QUEtiapine 300 MG TAB PO (21:56)
[2021-05-18] MEDS: Amitriptyline 25 MG TAB 50 MG PO (21:56)
[2021-05-18] MEDS: Benztropine 1 MG TAB PO (21:57)
[2021-05-18] MEDS: QUEtiapine 100 MG TAB 200 MG PO (21:57)
[2021-05-18] MEDS: Pravastatin 20 MG TAB PO (21:57)
[2021-05-19 00:03] VITALS: BP 106/67; PULSE 89; RESP 19; TEMP 36.6; O2SAT 92
[2021-05-19 06:28] LABS: Abs Immature Grans 0.14 10^3/uL (0.0-0.06); Absolute Basophil Count 0.06 10^3/uL (0.0-0.2); Absolute Lymphocyte Count 1.64 10^3/uL (1.2-3.4); Absolute Monocyte Count 0.68 10^3/uL (0.1-0.8); Absolute Neutrophil Count 5.15 10^3/uL (1.2-6.7); Basophils % 0.8; Eosinophils % 1.3; HCT 48.2 % (40.0-50.0); Immature Grans % 1.8; Lymphocytes % 21.1; MCH 32.4 pg (27.0-33.0); MCHC 33.2 % (32.0-36.0); MCV 97.6 fL (80-95); MPV 10.6 fL (8.0-11.0); Monocytes % 8.8; Neutrophils % 66.2; Nucleated RBC 0 %; Platelet Count 163 10^3/uL (130-400); RBC 4.94 10^6/uL (4.36-5.78); RDW 12.4 % (11.8-14.1); RDW-SD 44.6 fL; WBC 7.77 10^3/uL (4.4-10.8)
[2021-05-19 06:35] LABS: Anion Gap 4.7 mmol/L (3-11); BUN 19 mg/dL (7-18); CO2 32.3 mmol/L (21.0-32.0); CREATININE 0.8 mg/dL (0.70-1.30); Calcium 8.8 mg/dL (8.5-10.1); Chloride 104 mmol/L (98-107); Glucose 198 mg/dL (74-106); Magnesium 2.1 mg/dL (1.8-2.4); Potassium 3.7 mmol/L (3.5-5.1); Sodium 141 mmol/L (136-145)
[2021-05-19] MEDS: Montelukast 10 MG TAB PO (08:22)
[2021-05-19] MEDS: Gabapentin 800 MG TAB PO ×2 (08:22→14:12)
[2021-05-19] MEDS: Pantoprazole 40 MG TABCR PO (08:22)
[2021-05-19] MEDS: Azithromycin 250 MG TAB 500 MG PO (08:22)
[2021-05-19] MEDS: predniSONE 20 MG TAB 40 MG PO (08:22)
[2021-05-19] MEDS: buPROPion-XL 150 MG TABCR 450 MG PO (08:22)
[2021-05-19] MEDS: clonazePAM 1 MG TAB 2 MG PO (08:22)
[2021-05-19 08:36] VITALS: BP 101/71; PULSE 89; RESP 11; TEMP 36.9; O2SAT 94
[2021-05-19] MEDS: HYDROcodone 5/Acetaminophen 325 TAB PO ×2 (08:51→14:12)
[2021-05-19] MEDS: Budesonide/Formoterol 80/4.5 6.9 GM 60 PUFF INH IH (08:51)
[2021-05-19] MEDS: Albuterol/Ipratropium 3 ML UPD VIAL UPD ×2 (08:51→12:27)
--- NOTE | 2021-05-19 10:42 | PT.INTREAT ---
Date of service: 05/19/21 Time of Service: 10:05 PT Notes Visit Reasons: COPD Exacerbation Inpatient Physical Therapy Treatment Note [facility] Date: 05/19/2021 PRECAUTIONS: Fall SUBJECTIVE: William states that he is hoping to go home today, he feels that he is ready and that there are not any barriers that he can think of to going home. He reports that he has wide hallways and spaces and plenty of room to negotiate around his home with a FWW. He would like PT to come. OBJECTIVE: PAIN: Patient c/o R hip pain, increasing with stair negotiation BED MOBILITY/TRANSFERS Rolling L/R: [] Supine-sit: I with HOB flat Sit-supine: I with HOB flat Sit-stand: I Stand-sit: I Bed-Chair: [] Chair-bed: [] GAIT Assistive Device: FWW Weight bearing: Full Assist: S Distance: 100' x2 Deviation: None, 1L O2 via NC TOILETING: Patient toileted independently STAIRS: Up/down 6x4 and 4x6 using U rail and a step-to/step-over pattern with supervision. Patient requires cueing for technique to avoid increasing R hip pain with stair negotiation. ASSESSMENT: Patient tolerated session well, although with c/o increased R hip pain with stair negotiation. He was able to tolerate a progression in gait distance with FWW support and supervision, and demonstrates independence with transfers, bed mobility, and toileting at this time. PLAN: Possible discharge to home later today, follow up with PT upon discharge. TREATMENT CODE/TIME: 25 minutes; 10035 x2 (10:05)
[2021-05-19 12:00] VITALS: PULSE 102; PULSE 95; PULSE 96; RESP 18; O2SAT 87; O2SAT 89; O2SAT 90; O2SAT 92
[2021-05-19 12:27] VITALS: PULSE 97; RESP 20; RESP 5; O2SAT 93
[2021-05-19 12:32] VITALS: PULSE 103; RESP 22; RESP 5; O2SAT 93
--- NOTE | 2021-05-19 13:56 | W.PM.DS.N ---
Date of service: 05/19/21 Time of Service: 13:59 DS: Diagnosis Discharge Diagnosis (1) Acute exacerbation of chronic obstructive pulmonary disease: Status: Acute (2) Lung bullae: Status: Acute (3) Current smoker: Status: Acute (4) Systolic and diastolic CHF, chronic: Status: Chronic (5) Biventricular implantable cardioverter-defibrillator (ICD) in situ: Status: Chronic (6) PTSD (post-traumatic stress disorder): Status: Chronic (7) Ambulatory dysfunction: Status: Chronic Asessment and Plan: Requiring a FWW. 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 He does continue to smoke. On this admission, he was evaluated by Dr Yanez of Pulmonology, who had recommended azithromycin, steroid taper, addition of spiriva to advair on discharge. He did improve markedly with this therapy and is felt to be at his baseline at the time of discharge. He will need to complete a steroid taper per Dr Yanez's recommendations. He will need to follow up with Dr Yanez and with CT surgery for potential bullectomy. He is requiring oxygen on ambulation, with O2 sat on room air going down to 87% on ambulation and improving to 89% on 1L of O2. His resting O2 sat is 93% on room air. He is requiring a walker to ambulate. He is being discharged to his actual house with [facility] home health service (RN, PT, OT, HOT SEALING MACHINE OPERATOR). Care for patient as well as completion of his discharge summary on day of discharge took 45 minutes. Home Meds and New Rx's Prescriptions: New Spiriva Respimat 1.25 mcg/actuation mist 2 puff inhalation DAILY Qty: 4 RF: 0 nicotine 14 mg/24 hr Patch 24 Hour 14 mg transdermal DAILY PRN PRNQty: 7 RF: 0 prednisone 10 mg tablet See Rx Instructions .ROUTE .COMPLEX Qty: 28 RF: 0 Continued nitroglycerin 0.4 MG tablet, sublingual 0.4 mg Sublingual one every 5 mins. x3 Qty: 30 RF: 3 quetiapine [Seroquel] 400 mg tablet 400 mg PO HS RF: 0 fluticasone propion-salmeterol [Advair Diskus] 250-50 mcg/dose blister with device 1 inh inhalation BID RF: 0 hydrocodone-acetaminophen 5-325 mg tablet 1 tab PO TID PRN PRN (Reason: Pain) RF: 0 Trintellix 5 mg tablet 20 mg PO DAILY RF: 0 amitriptyline 25 mg tablet 50 mg PO QHS RF: 0 acetaminophen 325 mg capsule 325 - 650 mg PO Q4H PRN PRN (Reason: Pain) RF: 0 montelukast 10 mg tablet 10 mg PO DAILY RF: 0 benztropine 1 mg tablet 1 mg PO HS Qty: 0 RF: 0 bupropion HCl 300 mg tablet extended release 24 hr 300 mg PO QAM Qty: 10 RF: 0 pravastatin 20 mg tablet 20 mg PO QHS Qty: 10 RF: 0 clonazepam 2 mg tablet 2 mg PO BID RF: 0 bupropion HCl 150 mg tablet extended release 24 hr 150 mg PO QAM RF: 0 ipratropium-albuterol 0.5 mg-3 mg(2.5 mg base)/3 mL solution for nebulization 3 ml IH Q6H Qty: 90 RF: 0 magnesium hydroxide [Milk of Magnesia] 400 mg/5 mL Suspension 10 ml PO Q6H PRNRF: 0 diphenhydramine HCl [Benadryl] 25 mg Capsule 25 mg PO Q6H PRNRF: 0 calcium carbonate [Calcium Antacid] 200 mg calcium (500 mg) Tablet,Chewable 200 mg PO Q4H PRNRF: 0 docusate sodium 100 mg Tablet 100 mg PO BID PRNRF: 0 quetiapine 100 mg Tablet 100 mg PO QHS RF: 0 bacitracin 500 unit/gram Ointment 1 applic BID PRN PRNRF: 0 guaifenesin [Tussin] 100 mg/5 mL Liquid 200 mg PO Q4H PRN PRN (Reason: Cough) RF: 0 gabapentin 800 mg tablet 800 mg PO TID RF: 0 pantoprazole 40 mg Tablet,Delayed Release (Dr/Ec) 40 mg PO DAILY@0730 Qty: 30 RF: 0 albuterol sulfate 1.25 mg/3 mL solution for nebulization 1.25 mg inhalation QID PRN (Reason: shortness of breath or wheezing) Qty: 90 RF: 0 Discontinued prednisone 20 mg Tablet See Rx Instructions .ROUTE .COMPLEX Qty: 14 RF: 0 Discharge Instructions Instructions: How to Stop Smoking (DC), Using Oxygen at Home (DC), COPD (Chronic Obstructive Pulmonary Disease) (ED) Additional Instructions: Continue your regular medications. Add Spiriva to your daily medications. Take prednisone as prescribed on a taper until it is finished. Follow up with your PCP and with Dr Yanez (pulmonology) as scheduled. Return to the hospital with any fever, bleeding, chest pain, or shortness of breath. You must not smoke. Smoking while wearing oxygen could or wearing oxygen near a fire source could result in explosion and . Care Plan Goals: Home with [facility] home health nursing, PT, OT, HOT SEALING MACHINE OPERATOR Stand Alone Forms: Nursing Discharge Form Referrals: [facility] [Outside] (Cardiothoracic surgery referral for possible bullectomy) Audra Yanez MD [ [facility] STAFF PHYSICIAN] - 05/28/21 3:00 pm Lorrie Crespo [Primary Care Provider] - 05/20/21 11:45 am Activity:: Activity as Tolerated Equipment/Supplies:: oxygen 1L with ambulation Diet:: Low Sodium Discharge Orders Discharge Orders: Discharge Order (Routine); Ordered 05/19/21 Ordered By: Lore Lynne DS: Summary Time Spent with Patient providing and/or coordinating discharge services: Greater than 30 minutes Status at Discharge Functional status at discharge: uses cane/walker Overall status at discharge: patient is back to baseline Mental Status: mental status grossly normal Speech and Movement: speech and movement normal Mood: congruent mood Affect: normal affect Exam Narrative Exam Narrative: General: Pleasant middle-aged male, Seen ambulating in the hallway, on oxygen, no cyanosis/tachypnea/dyspnea HEENT: EOMI, MMM Heart: RRR, no m/r/g Lungs: nonlabored breathing Abdomen: soft, nontender Extremities: no edema BLE's Psych Mental Status: mental status grossly normal Speech and Movement: speech and movement normal Mood: congruent mood Affect: normal affect DS: Data Vitals/I&O Vitals and I&O: Vital Signs Temperature 36.9 C 05/19/21 08:36 Temperature Source Tympanic 05/19/21 08:36 Pulse 103 H 05/19/21 12:32 Pulse Rhythm Regular 05/19/21 09:12 Pulse 90 05/14/21 18:50 Respiratory Rate 22 05/19/21 12:32 Respiratory Effort 05/19/21 09:12 Respiratory Depth Normal 05/19/21 09:12 Respiratory Pattern Normal 05/19/21 09:12 Blood Pressure 101/71 05/19/21 08:36 Blood Pressure Mean 92 05/14/21 18:31 Blood Pressure Position Supine 05/14/21 10:08 Pulse Oximetry 93 05/19/21 12:32 Oxygen Delivery Method Room Air 05/19/21 12:27 Oxygen Flow Rate 0 05/19/21 12:27 Pain Level 9 05/19/21 08:51 Intake & Output 05/18/21 05/19/21 05/19/21 23:59 11:59 23:59 Intake Total 480 / 720 480 / 480 Balance 480 / 720 480 / 480 Intake: Oral 480 / 720 480 / 480 Other: Urine Color Yellow Urine Appearance Clear Voiding Methods Toilet Toilet Data Completed and Pending Completed studies during hospitalization [Text1]: CXR: Improved when compared to 04/29/2021.No confluent infiltrates on today's study. Bipolar pacemaker. No pulmonary edema. No pleural effusions. Labs on day of discharge: Labs from last 24 hours 05/19/21 05/19/21 06:10 06:10 WBC 7.77 RBC 4.94 Hgb 16.0 Hct 48.2 MCV 97.6 H MCH 32.4 MCHC 33.2 RDW 12.4 Plt Count 163 MPV 10.6 Immature Gran % 1.8 Neutrophils % 66.2 Lymphocytes % 21.1 Monocytes % 8.8 Eosinophils % 1.3 Basophils % 0.8 Nucleated RBC % 0 Absolute Neutrophils 5.15 Absolute Lymphocytes 1.64 Absolute Monocytes 0.68 Absolute Eosinophils 0.10 Absolute Basophils 0.06 Sodium 141 Potassium 3.7 Chloride 104 Carbon Dioxide 32.3 H Anion Gap 4.7 BUN 19 H Creatinine 0.8 Estimated GFR/1.73 m2 >= 60.00 Glucose 198 H D Calcium 8.8 Magnesium 2.1 PFSH Medical History Acquired deformity of left hand Agoraphobia Anxiety Anxiety with depression Arthritis Biventricular implantable cardioverter-defibrillator (ICD) in situ Mode:DDD, Low rate 60bpm, Atrial lead: medtronic 5076, SN: [id number] 09/27/14; RV lead Medtronic 6935M SN: [id number] 09/27/14; LV lead Medtronic 4396, SN; TRACIE [id number] 09/27/14 (updated 03/11/20) BPH (benign prostatic hyperplasia) Cardiomyopathy Chest pain CHF (congestive heart failure) Chronic pain syndrome Cyst Depression Diabetes Diarrhea Dizziness Erectile dysfunction Fatigue Hallucination Hand paresthesia Heart disease History of alcohol abuse History of suicidal ideation History of tobacco abuse Hyperlipidemia Impacted ear wax LBBB (left bundle branch block) Lung disease Metacarpophalangeal joint pain Nonischemic dilated cardiomyopathy Pacemaker Pain in right hip Panic anxiety syndrome PTSD (post-traumatic stress disorder) Severe chronic obstructive pulmonary disease Skin lesion Systolic and diastolic CHF, chronic Tobacco use Surgical History Status post biventricular pacemaker Family History Mother , 2008 COPD (chronic obstructive pulmonary disease) Social History Smoking/Tobacco Use Status: Former Tobacco Use Quit Date: 10/25/15 Pack-years: 120 Smoking risk assessment performed?: Yes Alcohol Intake: former Drug use: Never Do you feel safe at home: Yes Do you feel safe in your relationship?: Yes Additional Social history: lives alone
[2021-05-19] MEDS: Albuterol 2.5 MG/3 ML INH SOLN VIAL UPD (14:56)
--- NOTE | 2021-05-19 15:12 | PDOC.HHF2F_ITS ---
Home Health Certification Home Health Certification: 1. Encounter Date and Reason I certify that William Gay was seen by Lore Lynne on 05/19/21 and that I had a [id number]-[id number] encounter with this patient that meets the physician face to face encounter requirements. 2. Clinical Findings Supporting Skilled Need and Homebound Status I certify that home health services are medically necessary, include either intermittent chcf and/or physical/speech therapy, and that this patient is homebound in that absences from the home require considerable and taxing effort and are infrequent or of short duration, or are attributable to the need to receive medical care. [X] (a) Attached documentation from encounter provides clinical findings supporting skilled need and homebound status (including what assistance patient requires to leave the home). The encounter with the patient was in whole, or in part, for the following medical condition, which is the primary reason for home health care: COPD Exacerbation Mcfp: chronic combined systolic/diastolic CHF, severe COPD on new O2, PTSD/anxiety/depression, assess/evaluate for safety at home and perform medication teaching Physical Therapy: eval and treat Occupational Therapy: eval and treat SALESPERSON AUTOMOBILES: evaluate need for resources in the community Homebound: unable to leave home without assistance 3. Certification and Authentication I certify that I composed the above information based on my clinical judgement relating to this patient's medical condition and, if applicable, clinical findings communicated to me by the NPP or inpatient physician who performed the Home Health Referral. All further orders will be obtained through ___Lorrie Crespo (Community Based Physician - PCP)
--- NOTE | 2021-05-19 16:30 | CMDISCH_ITS ---
- If Service Date Differs Date of service: 05/19/21 Time of Service: 16:30 LACE Index Scoring Tool - Questions: Length of Stay (in days): 4 - 6 Acuity (Admit via E.D.?): Yes Comorbidities: Diabetes w/o Complication, Congestive Heart Failure, Chronic Pulmonary Disease E.D. Visits: 4 - Answers: Total Score: 16 Risk of Readmission: High Risk Care Management Discharge Reason for Hospitalization: COPD exacerbation Discharge Plan: William will return home today with new orders for HH RN, PT, OT, BARRATTE OPERATOR, and METAL WASHING MACHINE OPERATOR. His CHANGE CONTROL MANAGER case supervisor, Joy will drive him home via private vehicle. She will be doing twice daily med checks with him. She will support him in purchasing a new phone in order for him to have the ability to call for help if needed, getting his prescriptions, and taking him to appointments. He will have new O2, which will be delivered by [facility]. CM discussed smoking cessation with him, and provided him and his case supervisor with resources for free nicotine patches. He reports feeling tired, but ready for discharge. Patient/Family Education Needs: Review discharge instructions regarding activity levels, new O2, and community supports, discussion of self care needs and goals of care. Services Needed at Discharge: Home Health Care Services (HH RN, PT, OT, BARRATTE OPERATOR, METAL WASHING MACHINE OPERATOR) - MH Services (Omit if N/A) Current MH Services: CHANGE CONTROL MANAGER
--- NOTE | 2021-05-21 09:40 | PT.INDS ---
Date of service: 05/19/21 Time of Service: 12:00 PT Notes Visit Reasons: COPD Exacerbation Treatment Dates: 05/18/21 - 05/19/21 Referring Doctor: Lore Lynne MD PT Orders: PT CONSULT: Limited ability Precautions: Fall. Standard. Activity as tolerated. THIS DOCUMENT SERVES A SUMMARY OF CARE. NO PT SERVICES WERE PROVIDED ON THIS DATE. Patient Profile/Admitting Diagnosis: William is a 55-year-old male with a h/o COPD, chronic combined diastolic and systolic CHF, BPH, DM2. He presented with the c/o SOA. He described 4 to 5 days of worsening mild congestion and shortness of breath. He notes a cough and shortness of breath; denies confusion, chest pain, fever/chills, headaches and nausea/vomiting. He participated in 2 sessions of skilled PT intervention over the course of 2 days. PMHX: Medical History Acquired deformity of left hand Agoraphobia Anxiety Anxiety with depression Arthritis Biventricular implantable cardioverter-defibrillator (ICD) in situ Mode:DDD, Low rate 60bpm, Atrial lead: medtronic 5076, SN: [id number] 09/27/14; RV lead Medtronic 6935M SN: TDL [id number] 09/27/14; LV lead Medtronic 4396, SN; TRACIE [id number] 09/27/14 (updated 03/11/20) BPH (benign prostatic hyperplasia) Cardiomyopathy Chest pain CHF (congestive heart failure) Chronic pain syndrome Cyst Depression Diabetes Diarrhea Dizziness Erectile dysfunction Fatigue Hallucination Hand paresthesia Heart disease History of alcohol abuse History of suicidal ideation History of tobacco abuse Hyperlipidemia Impacted ear wax LBBB (left bundle branch block) Lung disease Metacarpophalangeal joint pain Nonischemic dilated cardiomyopathy Pacemaker Pain in right hip Panic anxiety syndrome PTSD (post-traumatic stress disorder) Severe chronic obstructive pulmonary disease Skin lesion Systolic and diastolic CHF, chronic Tobacco use Surgical History Status post biventricular pacemaker Social History/Home Situation: William notes that he has been staying in a Care bed since being discharged from the hospital in early April or here and there. Lives alone in an apartment building with 12 steps to enter without rails. Does not use any assistive device. However does have a walker if needed per his report. Has family nearby but has been estranged from them for a long time now. Notes of 2 friends that assist him in the area. States that he currently has no means of transportation. Has not been able to do regular grocery shopping. Equipment Owned/DME: FWW Subjective: Agreeable to PT consult. Reports being dizzy and shaky. Requested to sit down after standing bedside for 5 minutes. No LOB.Denies chest pain and headache. Objective: General Observation: IV access in R UE. Mental Status: Appears withdrawn. Alert and oriented as to person and place. Response time to questions slow. Pain: None reported ROM: Right Upper Extremity: Shoulder Flexion WFL. Shoulder abduction WFL. Elbow flexion WFL. Wrist flexion WFL. Opening and closing of hand WFL. Left Upper Extremity: Shoulder Flexion WFL. Shoulder abduction WFL. Elbow flexion WFL. Wrist flexion WFL. Opening and closing of hand WFL. Right Lower Extremity: Hip flexion WFL. Hip abduction WFL. Knee flexion WFL. Ankle dorsiflexion WFL. Ankle plantarflexion WFL. Left Lower Extremity: Hip flexion WFL. Hip abduction WFL. Knee flexion WFL. Ankle dorsiflexion WFL. Ankle plantarflexion WFL. Strength: Right Upper Extremity: Shoulder flexors 4/5. Shoulder abductors 4/5. Elbow flexors 5/5. Elbow extensors 5/5. Tabular Typist strong. Left Upper Extremity: Shoulder flexors 4/5. Shoulder abductors 4/5. Elbow flexors 5/5. Elbow extensors 5/5. Tabular Typist strong. Right Lower Extremity: Hip flexors 4/5. Hip abductors 4/5. Knee flexors 4/5. Knee extensors 4/5. Ankle dorsiflexors 4/5. Ankle plantarflexors 4/5. Left Lower Extremity: Hip flexors 4/5. Hip abductors 4/5. Knee flexors 4/5. Knee extensors 4/5. Ankle dorsiflexors 4/5. Ankle plantarflexors 4/5. Sensation: Intact as to pain and light pressure on bilateral lower extremities. Bed Mobility/Transfers: supine-sit: independent with HOB flat sit-supine: independent with HOB flat Sit to stand : independent Stand to sit : independent Gait: Patient able to ambulate up to 100' with FWW, full WBing, supervision only, on 1LPM supplemental O2. Stairs: Patient was able to ascend and descend 6 inch stairs x4, 4 inch stairs x6 with unilateral rail support and supervision only. Balance: Static Sitting: Normal Dynamic Sitting: Good Static Standing: Fair Dynamic Standing: Fair Assessment: Patient presented with difficulty with ambulation, impairment in balance, unsteadiness in gait with decreased O2 saturation with any activity on 1 liter of O2 via nasal cannula, and sudden onset dizziness which all increase risk for falling. William is a 55-year-old male who presented to the hospital with acute exacerbation of COPD. He participated in 2 sessions of skilled PT intervention over the course of 2 days, with improvements in mobility and independence. He is appropriate for discharge from PT in acute care setting, with recommendation of HH PT for continued progress toward mobility goals. Goals: Goals X1 week 1. Sit-Stand independent (met) 2. Stand-Sit independent(met) 3. Bed-Chair independent(met) 4. Chair-Bed independent(met) 5. Independent gait on level surface with use of a single-point cane for at least 300 feet without report of pain nor dyspnea (progressing toward) 6. Independent stair negotiation while holding onto bilateral rails for at least 15 steps without report of pain nor dyspnea ((progressing toward) 7. Independent with home exercise program (met) 8. Good static and dynamic standing balance/tolerance (progressing toward) Plan of Care/Treatment Plan: Discharge from PT in acute care setting, with recommendation of HH PT for continued progress toward mobility goals. DISCHARGE RECOMMENDATIONS: Home with HH TREATMENT CODE/TIME: none Thank you for the opportunity to participate in the care of this patient. Malgorzata Coyne, PT, DPT [facility]
== END 2021-05-19 16:54 | disposition home health service (06) | DRG 191 ==
LOC: ER 15:10 → MS 19:08
PROVIDERS: Internal Medicine; Admitting Provider Family Medicine; Emergency Provider Emergency Medicine; PCP Nurse Practitioner Family; Visit Provider Family Medicine
DX: J44.1 Chronic obstructive pulmonary disease with (acute) exacerbation (principal); I42.0 Dilated cardiomyopathy; I50.42 Chronic combined systolic (congestive) and diastolic (congestive) heart failure; I25.10 Atherosclerotic heart disease of native coronary artery without angina pectoris; Z20.822 Contact with and (suspected) exposure to COVID-19; Z95.810 Presence of automatic (implantable) cardiac defibrillator; N40.0 Benign prostatic hyperplasia without lower urinary tract symptoms; G89.4 Chronic pain syndrome; E11.9 Type 2 diabetes mellitus without complications; F10.11 Alcohol abuse, in remission; E78.5 Hyperlipidemia, unspecified; I44.7 Left bundle-branch block, unspecified; F40.01 Agoraphobia with panic disorder; F32.9 Major depressive disorder, single episode, unspecified; F43.10 Post-traumatic stress disorder, unspecified; F17.210 Nicotine dependence, cigarettes, uncomplicated; R09.02 Hypoxemia
CPT/HCPCS: 36415; 80048; 80053; 87635; 93005; 94618; 94640; 96374; 97162; 97530; 99285; J1650; 71046; 83735; 83880; 84484; 85025; 85049; 93010; 99223; 99232; 99239; 99284; J2930; J7512; J7613; J7620

== ENCOUNTER → 2021-05-21 10:02 | Outpatient (BNVA) | payer MEDICARE, SELFPAY | PROVIDERS: PCP Nurse Practitioner Family; Visit Provider Nurse Practitioner Adult Health | DX: R41.89 Other symptoms and signs involving cognitive functions and awareness (principal); I50.9 Heart failure, unspecified; Z95.810 Presence of automatic (implantable) cardiac defibrillator; J44.9 Chronic obstructive pulmonary disease, unspecified; R06.02 Shortness of breath; R09.02 Hypoxemia; R44.0 Auditory hallucinations; G89.29 Other chronic pain | CPT/HCPCS: 99204; 99215; G2212 ==

== ENCOUNTER 2021-06-09 15:06 | Observation (INO) | payer MEDICARE, SELFPAY ==
[2021-06-09] VITALS (57 sets, daily range): BP systolic 109–160; BP diastolic 72–138; PULSE 75–127; RESP 8–25; TEMP 36.4–37.1; O2SAT 91–100
--- NOTE | 2021-06-09 15:00 | RT.EKG_ITS ---
APPROVED REPORT Exam: Resting ECG Reason for Exam: altered mental status Patient Location: E HR:85 bpm ECG Measurements Heart Rate 85 AXIS CA 140 P 52 QRSd 153 QRS 240 QT 424 T 29 QTc 506 Conclusion Atrial-sensed ventricular-paced rhythm...ventricular pacing tracks p-waves Biventricular paced rhythm...non-simultaneous bi-vent pacing. Paced. No significant change from previous. No STEMI. I have reviewed and interpreted ECG and agree with software generated interpretation.
--- NOTE | 2021-06-09 15:13 | ED.GENADUL_ITS ---
Discharge Plan Disposition Patient Disposition: [facility] INPATIENT Condition: Stable Discharge Details Clinical Impression: Altered mental status Admit Date/Time: 06/09/21 19:29 Admit Provider: Hao Mi Attending Provider: Hao Mi Primary Care Provider: Lorrie Crespo ED Provider: Yeny Pickens Discharge Data Discharge Date/Time-TO BE ENTERED AT DEPARTURE: 06/09/21 20:37 Medical Decision Making 55-year-old male with a history of CHF, cardiomyopathy, diabetes, COPD, pacemaker, anxiety, depression, PTSD, former alcohol abuse who presents from home for altered mental status. There was a reported history that [facility] staff member was checking on him today when she returned after grocery shopping he was making no sense and she was concerned about possible medication overdose. When inquired which medications he had taken, EMS stated he said all of them . His O2 sat was 80s on RA and 90s on NRB. He was given narcan x 2 at scene with improvement in mental status and O2 sat. Patient is drowsy and snoring but arousable to voice and able to answer some questions. He is able to state his name and his height. He is unable to provide specific details of event today. Nursing discussed with [facility] and they noted that patient receives his medication in bubble packs and they usually observe patient taking them. Nurse spoke with [facility] staff member with patient today who stated that patient did not feel like taking them when she gave them to him and they cannot force him to do that. There is a questionable concern of whether patient has been holding onto his medications and took an overdose today but he is unable to provide this history. As he responded to Narcan, consider opiate overdose. Review of his medications note that he is taking hydrocodone. Will give 0.4 mg Narcan and IV fluids and continue to monitor. Will obtain screening labs including toxicology work-up, CT head x-ray. He is also taking amitriptyline. EKG notes a rate of 85 but he has a biventricular paced rhythm with a wide QRS which has been seen in previous EKGs and this does not appear significantly different. Labs and imaging reviewed. White blood cell count within normal limits. ABG with a pH of 7.3, PCO2 51, PO2 98 on 2 L nasal cannula oxygen. Electrolytes within normal limits. Troponin negative. CT head and chest x-ray negative for acute findings. While patient in the room, he got himself off the stretcher and sat on top of the commode with the lid down. He urinated all over the floor. He ripped out his IV accidentally. He appears more awake and alert and able to answer more questions but clearly seems still confused. He did not respond to additional Narcan. Will admit patient for altered mental status. Case discussed with hospitalist who accepts patient for admission. Medical Records Medical records reviewed: Yes I reviewed the patient's medical records. Imaging Data Radiologic Study: Radiologist's impression: CT HEAD WO CLINICAL HISTORY: altered mental status, r/o acute cva. TECHNIQUE: Imaging Protocol: Axial computed tomography images with coronal and sagittal reformatted images were created and reviewed COMPARISON: CT CT HEAD WO from 04/29/2021 FINDINGS: There are no skull fractures nor fluid in the visualized paranasal sinuses. There is no evidence of intracranial hemorrhage, mass effect, or shift of midline structures. There are no extra-axial fluid collections. The ventricles are not enlarged or shifted and there is no blood within the ventricular system nor within the basal cisterns. IMPRESSION: No acute intracranial findings on this noninfused CT scan of the brain. No significant change to 04/29/2021. XR CHEST 2V PA LATERAL CLINICAL HISTORY: altered mental status, r/o acute disease. TECHNIQUE: 2D digital imaging was performed. COMPARISON: CR XR CHEST 2V PA LATERAL from 05/14/2021 FINDINGS: Heart size is unchanged. The mediastinum is not widened mediastinum. Lungs are clear. No infiltrates nor pleural effusions. No pulmonary edema. No pneumothorax. Bipolar pacemaker again noted. IMPRESSION: No new pulmonary findings. Lab Data Lab results reviewed: Yes I reviewed the patient's lab results. Labs: Laboratory Tests Range/Units 06/09/21 06/09/21 06/09/21 14:40 14:40 14:40 WBC (4.4-10.8) 10^3/uL 6.31 RBC (4.36-5.78) 10^6/uL 5.09 Hgb (13.5-17.5) g/dL 16.4 Hct (40.0-50.0) % 49.1 MCV (80-95) fL 96.5 H MCH (27.0-33.0) pg 32.2 MCHC (32.0-36.0) % 33.4 RDW (11.8-14.1) % 12.2 Plt Count (130-400) 10^3/uL 146 MPV (8.0-11.0) fL 10.9 Immature Gran % 0.3 Neutrophils % 71.3 Lymphocytes % 16.5 Monocytes % 10.8 Eosinophils % 0.8 Basophils % 0.3 Nucleated RBC % % 0 Absolute Neutrophils (1.2-6.7) 10^3/uL 4.50 Absolute Lymphocytes (1.2-3.4) 10^3/uL 1.04 L Absolute Monocytes (0.1-0.8) 10^3/uL 0.68 Absolute Eosinophils (0.0-0.7) 10^3/uL 0.05 Absolute Basophils (0.0-0.2) 10^3/uL 0.02 ABG Sample Site ABG pH (7.35-7.45) ABG pCO2 (35-45) mmHg ABG pO2 (80-105) mmHg ABG HCO3 (22-26) mmol/L ABG Total CO2 (23-27) mmol/L ABG O2 Saturation (95-98) % ABG Base Excess (-2-3) mmol/L Oxygen Liter Flow L Sodium (136-145) mmol/L 137 Potassium (3.5-5.1) mmol/L 4.7 Chloride (98-107) mmol/L 102 Carbon Dioxide (21.0-32.0) mmol/L 28.6 Anion Gap (3-11) mmol/L 6.4 BUN (7-18) mg/dL 13 Creatinine (0.70-1.30) mg/dL 1.0 Estimated GFR/1.73 m2 (mL/min/1.73m2) >= 60.00 Glucose (74-106) mg/dL 111 H Calcium (8.5-10.1) mg/dL 9.4 Magnesium (1.8-2.4) mg/dL 2.1 Total Bilirubin (0.2-1.0) mg/dL 0.4 AST (15-37) U/L 17 ALT (16-63) U/L 26 Alkaline Phosphatase (46-116) U/L 68 Troponin I (<0.06) ng/mL < 0.05 Total Protein (6.4-8.2) g/dL 6.9 Albumin (3.4-5.0) g/dL 3.6 Salicylates (<2.8) mg/dL 11.2 Urine Opiates Screen (Negative) Urine Methadone Screen (Negative) Acetaminophen (10-30) ug/mL 6 Ur Barbiturates Screen (Negative) Ur Tricyclics Screen (Negative) Ur Amphetamines Screen (Negative) U Benzodiazepines Scrn (Negative) Urine Cocaine Screen (Negative) Ur THC Screen (Negative) Ethyl Alcohol (<3) mg/dL < 3.0 Range/Units 06/09/21 06/09/21 16:45 17:50 WBC (4.4-10.8) 10^3/uL RBC (4.36-5.78) 10^6/uL Hgb (13.5-17.5) g/dL Hct (40.0-50.0) % MCV (80-95) fL MCH (27.0-33.0) pg MCHC (32.0-36.0) % RDW (11.8-14.1) % Plt Count (130-400) 10^3/uL MPV (8.0-11.0) fL Immature Gran % Neutrophils % Lymphocytes % Monocytes % Eosinophils % Basophils % Nucleated RBC % % Absolute Neutrophils (1.2-6.7) 10^3/uL Absolute Lymphocytes (1.2-3.4) 10^3/uL Absolute Monocytes (0.1-0.8) 10^3/uL Absolute Eosinophils (0.0-0.7) 10^3/uL Absolute Basophils (0.0-0.2) 10^3/uL ABG Sample Site Right Radial ABG pH (7.35-7.45) 7.30 L ABG pCO2 (35-45) mmHg 51 H ABG pO2 (80-105) mmHg 98 ABG HCO3 (22-26) mmol/L 25 ABG Total CO2 (23-27) mmol/L 22 L ABG O2 Saturation (95-98) % 97 ABG Base Excess (-2-3) mmol/L -2 Oxygen Liter Flow L 2 Sodium (136-145) mmol/L Potassium (3.5-5.1) mmol/L Chloride (98-107) mmol/L Carbon Dioxide (21.0-32.0) mmol/L Anion Gap (3-11) mmol/L BUN (7-18) mg/dL Creatinine (0.70-1.30) mg/dL Estimated GFR/1.73 m2 (mL/min/1.73m2) Glucose (74-106) mg/dL Calcium (8.5-10.1) mg/dL Magnesium (1.8-2.4) mg/dL Total Bilirubin (0.2-1.0) mg/dL AST (15-37) U/L ALT (16-63) U/L Alkaline Phosphatase (46-116) U/L Troponin I (<0.06) ng/mL Total Protein (6.4-8.2) g/dL Albumin (3.4-5.0) g/dL Salicylates (<2.8) mg/dL Urine Opiates Screen (Negative) Positive A Urine Methadone Screen (Negative) Negative Acetaminophen (10-30) ug/mL Ur Barbiturates Screen (Negative) Negative Ur Tricyclics Screen (Negative) Positive A Ur Amphetamines Screen (Negative) Negative U Benzodiazepines Scrn (Negative) Negative Urine Cocaine Screen (Negative) Negative Ur THC Screen (Negative) Negative Ethyl Alcohol (<3) mg/dL ECG Data Attestation: I personally reviewed and interpreted this ECG (s) as follows: Interpretation: Rate of 85, biventricular paced. AL 140. QRS 153. No significant change from previous. HPI General Mode of arrival: EMS . Date/Time Provider Initiated Documentation: 06/09/21 15:08 . Limitations to Documentation: altered mental status . Information obtained by: patient, RN/MD and EMS . HPI Narrative: Patient is a 55-year-old male with a history of CHF, cardiomyopathy, diabetes, PTSD, COPD, pacemaker, anxiety, depression and chronic pain syndrome with former history of alcohol abuse presents for altered mental status and concern for medication overdose. EMS reported that [facility] staff member came to check on patient today and she left to get groceries and when she returned patient appeared altered and was making no sense. She stated he then slumped over and became unresponsive. Upon EMS arrival, O2 sat in the 80s, increased to the 90s on nonrebreather. He was also given Narcan x2 with improvement in mental status and of O2 sat to 98%. Patient is able to answer some questions but cannot provide history. Related Data Home Medications Medication Instructions Recorded Confirmed nitroglycerin 0.4 mg SUBLINGUAL one every 5 07/27/17 06/09/21 mins. x3 #30 tab-cap montelukast 10 mg PO DAILY 03/08/20 06/09/21 benztropine 1 mg PO HS #0 tab 03/17/20 06/09/21 bupropion HCl 300 mg PO QAM #10 tab 03/17/20 06/09/21 pravastatin 20 mg PO QHS #10 tab 03/17/20 06/09/21 clonazepam 2 mg PO BID 05/02/20 06/09/21 bupropion HCl 150 mg PO QAM 01/21/21 06/09/21 ipratropium-albuterol 3 ml IH Q6H #90 ml 01/28/21 06/09/21 acetaminophen 325 mg capsule 325 - 650 mg PO Q4H PRN PRN 02/18/21 06/09/21 amitriptyline 25 mg tablet 50 mg PO QHS tab 02/18/21 06/09/21 fluticasone 250 mcg-salmeterol 50 1 inh INHALATION BID 02/18/21 06/09/21 mcg/dose blistr powdr for inhalation hydrocodone 5 mg-acetaminophen 325 1 tab PO TID PRN PRN 02/18/21 06/09/21 mg tablet quetiapine 400 mg tablet 400 mg PO HS tab 02/18/21 06/09/21 vortioxetine 5 mg tablet 20 mg PO DAILY tab 02/18/21 06/09/21 gabapentin 800 mg PO TID 04/29/21 06/09/21 quetiapine 100 mg PO QHS 04/29/21 06/09/21 albuterol sulfate 1.25 mg INHALATION QID PRN #90 ml 05/01/21 06/09/21 pantoprazole 40 mg PO DAILY@0730 #30 tab 05/01/21 06/09/21 Spiriva Respimat 2 puff INHALATION DAILY #4 g 05/16/21 06/09/21 amoxicillin-pot clavulanate 1 tab PO BID #7 tab 06/10/21 [Augmentin] Previous Rx's Medication Instructions Recorded nitroglycerin 0.4 mg SUBLINGUAL one every 5 07/27/17 mins. x3 #30 tab-cap benztropine 1 mg PO HS #0 tab 03/17/20 bupropion HCl 300 mg PO QAM #10 tab 03/17/20 pravastatin 20 mg PO QHS #10 tab 03/17/20 ipratropium-albuterol 3 ml IH Q6H #90 ml 01/28/21 albuterol sulfate 1.25 mg INHALATION QID PRN #90 ml 05/01/21 pantoprazole 40 mg PO DAILY@0730 #30 tab 05/01/21 Spiriva Respimat 2 puff INHALATION DAILY #4 g 05/16/21 amoxicillin-pot clavulanate 1 tab PO BID #7 tab 06/10/21 [Augmentin] Allergies Allergy/AdvReac Type Severity Reaction Status Date / Time citalopram Allergy Unverified 05/21/21 10:13 oxycodone HCl [From Percocet] AdvReac Addiction Unverified 05/21/21 10:13 General MOLLY: 3 Review of Systems Unobtainable due to mental status PFSH Medical History Acquired deformity of left hand Agoraphobia Anxiety Anxiety with depression Arthritis Biventricular implantable cardioverter-defibrillator (ICD) in situ Mode:DDD, Low rate 60bpm, Atrial lead: medtronic 5076, SN: [id number] 09/27/14; RV lead Medtronic 6935M SN: [id number] 09/27/14; LV lead Medtronic 4396, SN; [id number] 09/27/14 (updated 03/11/20) BPH (benign prostatic hyperplasia) Cardiomyopathy Chest pain CHF (congestive heart failure) Chronic pain syndrome Cognitive impairment Cyst Depression Diabetes Diarrhea Dizziness Erectile dysfunction Fatigue Hallucination Hand paresthesia Heart disease History of alcohol abuse History of suicidal ideation History of tobacco abuse Hyperlipidemia Impacted ear wax LBBB (left bundle branch block) Lung disease Metacarpophalangeal joint pain Nonischemic dilated cardiomyopathy Pacemaker Pain in right hip Panic anxiety syndrome PTSD (post-traumatic stress disorder) Severe chronic obstructive pulmonary disease Skin lesion Systolic and diastolic CHF, chronic Tobacco use Surgical History Status post biventricular pacemaker Family History Mother , 2008 COPD (chronic obstructive pulmonary disease) Social History Smoking/Tobacco Use Status: Current every day Tobacco Type: cigarettes Smoking risk assessment performed?: Yes Alcohol Intake: former Drug use: Never Household members: none Pets and animals: No What type of physical activity do you participate in: none Seatbelt use: always Do you feel safe at home: Yes Do you feel safe in your relationship?: Yes Additional Social history: lives alone Exam Const General: no acute distress and ill appearing chronically Nutritional Appearance: obese centrally obese Orientation: awake HENOR Head: normal to inspection Ears: hearing grossly normal bilaterally and external ears normal General nose exam: external nose normal Face and sinus: normal facial exam Mouth: mucous membranes dry Throat: posterior oropharynx normal Eyes General: appearance normal, both eyes and all related structures Eyelids: eyelids normal Pupils: PERRL EOM: EOM intact bilaterally Neck Neck: normal visual inspection Lymphatic: no lymphadenopathy noted Chest Chest: normal inspection of the chest Resp Effort & Inspection: normal respiratory effort and able to speak in complete sentences Auscultation: clear to auscultation bilaterally Cardio Rate: regular rate Rhythm: regular rhythm GI Inspection: normal to inspection and obesity Palpation: soft, not firm, no guarding, no hepatosplenomegaly, no masses and nontender Auscultation: normal bowel sounds Back/Spine/Pelvis Cervical Spine: No cervical spinal tenderness Thoracic/Lumbar Spine: thoracic and lumbar spine normal to inspection, No thoracic spinal tenderness and No lumbar spinal tenderness Skin General skin exam: no rashes or lesions noted Neuro General: moves all extremities, no meningeal signs, no focal motor deficits and other (Drowsy but arousable to voice) Extrem General: normal to inspection, full ROM and capillary refill normal Psych Appearance: grossly normal Thought Process: normal
--- NOTE | 2021-06-09 15:15 | DI.CT_ITS ---
Exam(s) CT HEAD WO EXAM: CT HEAD WO CLINICAL HISTORY: altered mental status, r/o acute cva. TECHNIQUE: Imaging Protocol: Axial computed tomography images with coronal and sagittal reformatted images were created and reviewed COMPARISON: CT CT HEAD WO from 04/29/2021 FINDINGS: There are no skull fractures nor fluid in the visualized paranasal sinuses. There is no evidence of intracranial hemorrhage, mass effect, or shift of midline structures. There are no extra-axial fluid collections. The ventricles are not enlarged or shifted and there is no blo od within the ventricular system nor within the basal cisterns. IMPRESSION: No acute intracranial findings on this noninfused CT scan of the brain. No significant change to 03/2021. RADIATION DOSE DELIVERED: 780.53mGy.cm Total DLP DATA REPOSITORY: All CT scans at this facility are submitted to the National Radiology Data Registry (NRDR) Dose Index Registry (DIR) with the [employer] ([employer]). RADIATION OPTIMIZATION: All CT scans at this facility use at least one of these dose optimization te chniques: automated exposure control; mA and/or kV adjustment per patient size (includes targeted exa ms where dose is matched to clinical indication); or iterative reconstruction.
--- NOTE | 2021-06-09 15:15 | DI.RAD_ITS ---
Exam(s) XR CHEST 2V PA LATERAL EXAM: XR CHEST 2V PA LATERAL CLINICAL HISTORY: altered mental status, r/o acute disease. TECHNIQUE: 2D digital imaging was performed. COMPARISON: CR XR CHEST 2V PA LATERAL from 05/14/2021 FINDINGS: Heart size is unchanged. The mediastinum is not widened mediastinum. Lungs are clear. No infiltrates nor pleural effusions. No pulmonary edema. No pneumothorax. Bipol ar pacemaker again noted. IMPRESSION: No new pulmonary findings. Sign rib DATA REPOSITORY: RADIATION DOSE DELIVERED:
[2021-06-09 15:41] LABS: Abs Immature Grans 0.02 10^3/uL (0.0-0.06); Absolute Basophil Count 0.02 10^3/uL (0.0-0.2); Absolute Eosinophil Count 0.05 10^3/uL (0.0-0.7); Absolute Lymphocyte Count 1.04 10^3/uL (1.2-3.4); Absolute Monocyte Count 0.68 10^3/uL (0.1-0.8); Basophils % 0.3; Eosinophils % 0.8; HCT 49.1 % (40.0-50.0); HGB 16.4 g/dL (13.5-17.5); Immature Grans % 0.3; Lymphocytes % 16.5; MCH 32.2 pg (27.0-33.0); MCHC 33.4 % (32.0-36.0); MCV 96.5 fL (80-95); MPV 10.9 fL (8.0-11.0); Monocytes % 10.8; Neutrophils % 71.3; Nucleated RBC 0 %; Platelet Count 146 10^3/uL (130-400); RBC 5.09 10^6/uL (4.36-5.78); RDW 12.2 % (11.8-14.1); RDW-SD 43.8 fL; WBC 6.31 10^3/uL (4.4-10.8)
[2021-06-09] MEDS: Naloxone 0.4 MG/ML VIAL IVP (15:42)
[2021-06-09] MEDS: Normal Saline 1,000 ML 1000 ML IV ×2 (15:43→17:56)
[2021-06-09 16:16] LABS: ALT 26 U/L (16-63); AST 17 U/L (15-37); Albumin 3.6 g/dL (3.4-5.0); Alkaline Phosphatase 68 U/L (46-116); Anion Gap 6.4 mmol/L (3-11); BUN 13 mg/dL (7-18); Bilirubin, Total 0.4 mg/dL (0.2-1.0); CO2 28.6 mmol/L (21.0-32.0); Calcium 9.4 mg/dL (8.5-10.1); Chloride 102 mmol/L (98-107); Glucose 111 mg/dL (74-106); Magnesium 2.1 mg/dL (1.8-2.4); Potassium 4.7 mmol/L (3.5-5.1); Sodium 137 mmol/L (136-145); Total Protein 6.9 g/dL (6.4-8.2)
--- NOTE | 2021-06-09 16:22 | DI.VRAD_ITS ---
PROCEDURE INFORMATION: Exam: CT Head Without Contrast Exam date and time: 06/09/2021 3:55 PM Age: 55 years old Clinical indication: Other: AMS, R/O acute CVA TECHNIQUE: Imaging protocol: Computed tomography of the head without contrast. Radiation optimization: All CT scans at this facility use at least one of these dose optimization techniques: automated exposure control; mA and/or kV adjustment per patient size (includes targeted exams where dose is matched to clinical indication); or iterative reconstruction. COMPARISON: CT HEAD WO 04/29/2021 12:07 AM FINDINGS: Brain: There is mild diffuse heterogeneity of the white matter attenuation, consistent with chronic white matter ischemic changes. Mild cerebral atrophy; No acute intracranial hemorrhage.. Cerebral ventricles: No ventriculomegaly. Paranasal sinuses: Visualized sinuses are unremarkable. No fluid levels. Mastoid air cells: Visualized mastoid air cells are well aerated. Bones/joints: Unremarkable. No acute fracture. Soft tissues: Unremarkable. IMPRESSION: No acute intracranial hemorrhage.. Dictated and Authenticated by: Deepthi Raymundo MD. Ordering:THERON Saini MD
--- NOTE | 2021-06-09 16:25 | DI.VRAD_ITS ---
PROCEDURE INFORMATION: Exam: XR Chest Exam date and time: 06/09/2021 3:22 PM Age: 55 years old Clinical indication: Other: AMS, R/O acute CVA TECHNIQUE: Imaging protocol: XR of the chest. Views: 2 views. COMPARISON: CR XR CHEST 2V PA LATERAL 05/14/2021 10:57 AM FINDINGS: Tubes, catheters and devices: Transvenous pacemaker leads in the heart Lungs: Mild opacities in the lung bases may represent atelectasis or pneumonia.. Pleural spaces: There may be mild left pleural effusion. Heart/Mediastinum: Mild cardiomegaly Bones/joints: Unremarkable. IMPRESSION: 1. Mild opacities in the lung bases may represent atelectasis or pneumonia.. 2. There may be mild left pleural effusion. Dictated and Authenticated by: Deepthi Raymundo MD. Ordering:THERON Saini MD
[2021-06-09 16:33] LABS: ETHANOL BLOOD < 3.0 mg/dL (<3); Troponin I < 0.05 ng/mL (<0.06)
[2021-06-09 16:45] LABS: BE -2 mmol/L (-2-3); HCO3 25 mmol/L (22-26); pCO2 51 mmHg (35-45); pO2 98 mmHg (80-105); sO2 97 % (95-98); tCO2 22 mmol/L (23-27)
[2021-06-09 16:48] LABS: FIO2L 2 L; Site Right Radial
[2021-06-09 16:52] LABS: Acetaminophen 6 ug/mL (10-30); Salicylate 11.2 mg/dL (<2.8)
[2021-06-09] MEDS: Naloxone 0.4 MG/ML VIAL 1 MG IVP (17:35)
[2021-06-09] MEDS: Lidocaine 2% Jelly 6 ML SYR (18:00)
[2021-06-09 18:28] LABS: *AMPHETAMINES SCREEN URINE Negative (Negative); *BARBITURATES SCREEN URINE Negative (Negative); *BENZODIAZEPINES SCREEN URINE Negative (Negative); Cannabinoids THC Negative (Negative); Cocaine Screen,Urine Negative (Negative); METHADONE URINE SCREEN Negative (Negative); OPIATES URINE SCREEN Positive (Negative); Tricyclic Antidepressants Positive (Negative)
--- NOTE | 2021-06-09 19:08 | HPE_ITS ---
Date of service: 06/09/21 Time of Service: 19:08 Assessment and Plan Assessment and plan (1) Altered mental status: Status: Acute Assessment and plan: Altered mental status. Etiology not clear but sudden change, partial response to Narcan and with otherwise negative w/u not inconsistent with drug ingestion. Will hold all meds, monitor overnight and hydrate gently. History of Present Illness History of Present Illness Chief Complaint: somnolence Narrative: 55 male with multiple problems including COPD, CHF, h/o substance abuse and multiple pyschiatric diagnoses. Meds usually administered under supervision of Home Healt. Today nurse returned from grocery shopping and found patient altered; note it transpired that he had not taken his med while she ws there but had as ked to take them later. EMS summoned, Narcan administered with some effect and brought to ER. In ER findings of note for normal white count, incompletely compensated respiratory acidosis with pH7.30, pCO2 51 (no priors) and EYM684.6; UDS showing opiates an TCA (both of which he is prescribed), neg head CT, CXR with atelectasis vs pneunomia and EKG with paced rhythm, similar to prior. EtOH neg In ER received additional Narcan w/o effect. Is admitted for further management. Patient states he feels OK at present but is still somewhat somnolent and conversation is quite limited. Review of Systems All systems reviewed & are unremarkable except as noted in HPI and below PFSH Medical History Acquired deformity of left hand Agoraphobia Anxiety Anxiety with depression Arthritis Biventricular implantable cardioverter-defibrillator (ICD) in situ Mode:DDD, Low rate 60bpm, Atrial lead: medtronic 5076, SN: [id number] 09/27/14; RV lead Medtronic 6935M SN: [id number] 09/27/14; LV lead Medtronic 4396, SN; TRACIE [id number] 09/27/14 (updated 03/11/20) BPH (benign prostatic hyperplasia) Cardiomyopathy Chest pain CHF (congestive heart failure) Chronic pain syndrome Cognitive impairment Cyst Depression Diabetes Diarrhea Dizziness Erectile dysfunction Fatigue Hallucination Hand paresthesia Heart disease History of alcohol abuse History of suicidal ideation History of tobacco abuse Hyperlipidemia Impacted ear wax LBBB (left bundle branch block) Lung disease Metacarpophalangeal joint pain Nonischemic dilated cardiomyopathy Pacemaker Pain in right hip Panic anxiety syndrome PTSD (post-traumatic stress disorder) Severe chronic obstructive pulmonary disease Skin lesion Systolic and diastolic CHF, chronic Tobacco use Surgical History Status post biventricular pacemaker Family History Mother , 2008 COPD (chronic obstructive pulmonary disease) Social History Smoking/Tobacco Use Status: Current every day Tobacco Type: cigarettes Smoking risk assessment performed?: Yes Alcohol Intake: former Drug use: Never Household members: none Pets and animals: No What type of physical activity do you participate in: none Seatbelt use: always Do you feel safe at home: Yes Do you feel safe in your relationship?: Yes Additional Social history: lives alone Meds Allergies and Home Medications Allergies Allergy/AdvReac Type Severity Reaction Status Date / Time citalopram Allergy Unverified 05/21/21 10:13 oxycodone HCl [From Percocet] AdvReac Addiction Unverified 05/21/21 10:13 Home Medications Medication Instructions Recorded Confirmed Type nitroglycerin 0.4 mg SUBLINGUAL one every 5 07/27/17 06/09/21 Rx mins. x3 #30 tab-cap montelukast 10 mg PO DAILY 03/08/20 06/09/21 History benztropine 1 mg PO HS #0 tab 03/17/20 06/09/21 Rx bupropion HCl 300 mg PO QAM #10 tab 03/17/20 06/09/21 Rx pravastatin 20 mg PO QHS #10 tab 03/17/20 06/09/21 Rx clonazepam 2 mg PO BID 05/02/20 06/09/21 History bupropion HCl 150 mg PO QAM 01/21/21 06/09/21 History ipratropium-albuterol 3 ml IH Q6H #90 ml 01/28/21 06/09/21 Rx acetaminophen 325 mg capsule 325 - 650 mg PO Q4H PRN PRN 02/18/21 06/09/21 History amitriptyline 25 mg tablet 50 mg PO QHS tab 02/18/21 06/09/21 History fluticasone 250 mcg-salmeterol 50 1 inh INHALATION BID 02/18/21 06/09/21 History mcg/dose blistr powdr for inhalation hydrocodone 5 mg-acetaminophen 325 1 tab PO TID PRN PRN 02/18/21 06/09/21 History mg tablet quetiapine 400 mg tablet 400 mg PO HS tab 02/18/21 06/09/21 History vortioxetine 5 mg tablet 20 mg PO DAILY tab 02/18/21 06/09/21 History gabapentin 800 mg PO TID 04/29/21 06/09/21 History quetiapine 100 mg PO QHS 04/29/21 06/09/21 History albuterol sulfate 1.25 mg INHALATION QID PRN #90 ml 05/01/21 06/09/21 Rx pantoprazole 40 mg PO DAILY@0730 #30 tab 05/01/21 06/09/21 Rx tiotropium bromide [Spiriva 2 puff INHALATION DAILY #4 g 05/16/21 06/09/21 Rx Respimat] Exam Narrative Exam Narrative: 139/90, 80, 36.4, 15, 99% 2L. HEENT atraumatic; neck supple; lungs clear; heart RRR; abdomen soft and NT; extremities w/o edema; neuro sleepy but arouses to voice, 0x3, pupils 5 mm, no facial asymmetry, moves all 4s Results Labs Result diagrams: 06/09/21 14:40 06/09/21 14:40 Labs: Laboratory Results - last 24 hr 06/09/21 06/09/21 06/09/21 14:40 14:40 14:40 WBC 6.31 RBC 5.09 Hgb 16.4 Hct 49.1 MCV 96.5 H MCH 32.2 MCHC 33.4 RDW 12.2 Plt Count 146 MPV 10.9 Immature Gran % 0.3 Neutrophils % 71.3 Lymphocytes % 16.5 Monocytes % 10.8 Eosinophils % 0.8 Basophils % 0.3 Nucleated RBC % 0 Absolute Neutrophils 4.50 Absolute Lymphocytes 1.04 L Absolute Monocytes 0.68 Absolute Eosinophils 0.05 Absolute Basophils 0.02 ABG Sample Site ABG pH ABG pCO2 ABG pO2 ABG HCO3 ABG Total CO2 ABG O2 Saturation ABG Base Excess Oxygen Liter Flow Sodium 137 Potassium 4.7 Chloride 102 Carbon Dioxide 28.6 Anion Gap 6.4 BUN 13 Creatinine 1.0 Estimated GFR/1.73 m2 >= 60.00 Glucose 111 H Calcium 9.4 Magnesium 2.1 Total Bilirubin 0.4 AST 17 ALT 26 Alkaline Phosphatase 68 Troponin I < 0.05 Total Protein 6.9 Albumin 3.6 Salicylates 11.2 Urine Opiates Screen Urine Methadone Screen Acetaminophen 6 Ur Barbiturates Screen Ur Tricyclics Screen Ur Amphetamines Screen U Benzodiazepines Scrn Urine Cocaine Screen Ur THC Screen Ethyl Alcohol < 3.0 06/09/21 06/09/21 16:45 17:50 WBC RBC Hgb Hct MCV MCH MCHC RDW Plt Count MPV Immature Gran % Neutrophils % Lymphocytes % Monocytes % Eosinophils % Basophils % Nucleated RBC % Absolute Neutrophils Absolute Lymphocytes Absolute Monocytes Absolute Eosinophils Absolute Basophils ABG Sample Site Right Radial ABG pH 7.30 L ABG pCO2 51 H ABG pO2 98 ABG HCO3 25 ABG Total CO2 22 L ABG O2 Saturation 97 ABG Base Excess -2 Oxygen Liter Flow 2 Sodium Potassium Chloride Carbon Dioxide Anion Gap BUN Creatinine Estimated GFR/1.73 m2 Glucose Calcium Magnesium Total Bilirubin AST ALT Alkaline Phosphatase Troponin I Total Protein Albumin Salicylates Urine Opiates Screen Positive A Urine Methadone Screen Negative Acetaminophen Ur Barbiturates Screen Negative Ur Tricyclics Screen Positive A Ur Amphetamines Screen Negative U Benzodiazepines Scrn Negative Urine Cocaine Screen Negative Ur THC Screen Negative Ethyl Alcohol Last Vital Signs Temp 36.4 C L 06/09/21 15:09 Pulse 80 06/09/21 18:01 Resp 15 06/09/21 18:02 BP 139/90 06/09/21 18:01 Pulse Ox 99 06/09/21 18:02
[2021-06-09 20:13] LABS: Source Nasal/Nares
[2021-06-09 21:30] LABS: COVID-19 PCR Negative (Negative)
[2021-06-09] MEDS: Albuterol/Ipratropium 3 ML UPD VIAL IH (21:32)
[2021-06-09] MEDS: Pravastatin 20 MG TAB PO (21:33)
[2021-06-09] MEDS: Montelukast 10 MG TAB PO (21:33)
[2021-06-10] VITALS (7 sets, daily range): BP systolic 132–147; BP diastolic 77–89; PULSE 82–99; RESP 2–18; TEMP 36.9–37.2; O2SAT 90–95
[2021-06-10] MEDS: Albuterol/Ipratropium 3 ML UPD VIAL IH ×3 (03:16→13:51)
[2021-06-10] MEDS: Pantoprazole 40 MG TABCR PO (07:57)
[2021-06-10] MEDS: Budesonide/Formoterol 160/4.5 6 GM 60 PUFF INH IH (08:44)
--- NOTE | 2021-06-10 10:55 | W.PM.DS.N ---
Date of service: 06/10/21 Time of Service: 10:55 DS: Diagnosis Discharge Diagnosis (1) Altered mental status: Start date: 06/10/21 Start time: 10:55 Status: Resolved Asessment and Plan: Patient is at baseline mental status. He is calm and cooperative carrying full conversation. He has flat affect. He is trying to call people on phone when entering room. He states he does not know why he was admitted and he does not remember being brought to the ED or last night. He is sitting at edge of bed and as said at baseline therefore he can be discharged home. discussed with Dr. Jara Discharge Plan Disposition Patient Disposition: HOME Condition: Stable Discharge Details Reason For Visit: Altered Mental Status Admit Date/Time: 06/09/21 19:29 Admit Provider: Hao Mi Attending Provider: Hao Mi Primary Care Provider: Lorrie Crespo Hospital Course Hospital Course: 55 male with multiple problems including COPD, CHF, h/o substance abuse and multiple psychiatric diagnoses. Meds usually administered under supervision of Home Health. Yesterday nurse returned from grocery shopping and found patient altered; note it transpired that he had not taken his meds while she was there but had asked to take them later. EMS summoned, Narcan administered with some effect and brought to ER. In ER findings of note for normal white count, incompletely compensated respiratory acidosis with pH7.30, pCO2 51 (no priors) and QTV377.6; UDS showing opiates an TCA (both of which he is prescribed), neg head CT, CXR with atelectasis vs pneumonia and EKG with paced rhythm, similar to prior. EtOH neg. He was admitted to m/s for further management of AMS. Today he is at baseline. He is sitting on the side of the bed with a phone AAO trying to make phone calls. He does not recall the episode that brought him here and he asked why am I here. I explained that he was poorly responsive and that was why he was brought to the ED. He is at baseline and therefore he is being discharged home. CXR did reveal pneumonia possible therefore will treat with 7 day course augmentin. He denies CP, SOB, N/V/D. Home Meds and New Rx's Prescriptions: New amoxicillin-pot clavulanate [Augmentin] 875-125 mg tablet 1 tab PO BID Qty: 7 RF: 0 Continued nitroglycerin 0.4 MG tablet, sublingual 0.4 mg Sublingual one every 5 mins. x3 Qty: 30 RF: 3 quetiapine [Seroquel] 400 mg tablet 400 mg PO HS RF: 0 fluticasone propion-salmeterol [Advair Diskus] 250-50 mcg/dose blister with device 1 inh inhalation BID RF: 0 hydrocodone-acetaminophen 5-325 mg tablet 1 tab PO TID PRN PRN (Reason: Pain) RF: 0 Trintellix 5 mg tablet 20 mg PO DAILY RF: 0 amitriptyline 25 mg tablet 50 mg PO QHS RF: 0 acetaminophen 325 mg capsule 325 - 650 mg PO Q4H PRN PRN (Reason: Pain) RF: 0 montelukast 10 mg tablet 10 mg PO DAILY RF: 0 benztropine 1 mg tablet 1 mg PO HS Qty: 0 RF: 0 bupropion HCl 300 mg tablet extended release 24 hr 300 mg PO QAM Qty: 10 RF: 0 pravastatin 20 mg tablet 20 mg PO QHS Qty: 10 RF: 0 clonazepam 2 mg tablet 2 mg PO BID RF: 0 bupropion HCl 150 mg tablet extended release 24 hr 150 mg PO QAM RF: 0 ipratropium-albuterol 0.5 mg-3 mg(2.5 mg base)/3 mL solution for nebulization 3 ml IH Q6H Qty: 90 RF: 0 quetiapine 100 mg Tablet 100 mg PO QHS RF: 0 gabapentin 800 mg tablet 800 mg PO TID RF: 0 pantoprazole 40 mg Tablet,Delayed Release (Dr/Ec) 40 mg PO DAILY@0730 Qty: 30 RF: 0 albuterol sulfate 1.25 mg/3 mL solution for nebulization 1.25 mg inhalation QID PRN (Reason: shortness of breath or wheezing) Qty: 90 RF: 0 Spiriva Respimat 1.25 mcg/actuation mist 2 puff inhalation DAILY Qty: 4 RF: 0 Discharge Instructions Instructions: Community Acquired Pneumonia (DC), Altered Mental Status (GEN) Activity:: Activity as Tolerated Equipment/Supplies:: No Equipment Needed Diet:: As Tolerated Discharge Orders Discharge Orders: Discharge Order (Routine); Ordered 06/10/21 Ordered By: Brittany Foulke DS: Summary Time Spent with Patient providing and/or coordinating discharge services: Less than 30 minutes Status at Discharge Functional status at discharge: independent ambulation Overall status at discharge: patient is back to baseline Mental Status: other Speech and Movement: speech and movement normal Mood: other Affect: other Exam Narrative Exam Narrative: L. HEENT atraumatic; neck supple; lungs clear; heart RRR; abdomen soft and NT; extremities w/o edema; neuro AAOx3, pupils 5 mm, no facial asymmetry, moves all 4s extremities, flat affect Psych Mental Status: other Speech and Movement: speech and movement normal Mood: other Affect: other DS: Data Vitals/I&O Vitals and I&O: Vital Signs Temperature 36.9 C 06/10/21 08:18 Temperature Source Tympanic 06/10/21 08:18 Pulse 89 06/10/21 08:35 Pulse Rhythm Regular 06/10/21 07:58 Pulse 93 H 06/09/21 20:10 Respiratory Rate 18 06/10/21 08:18 Respiratory Effort 06/10/21 07:58 Respiratory Depth Normal 06/10/21 07:58 Respiratory Pattern Normal 06/10/21 07:58 Blood Pressure 132/77 06/10/21 08:18 Blood Pressure Mean 120 06/09/21 20:02 Blood Pressure Position Supine 06/09/21 15:09 Pulse Oximetry 95 06/10/21 08:35 Oxygen Delivery Method Room Air 06/10/21 08:35 Oxygen Flow Rate 0 06/10/21 08:35 Pain Level 9 06/10/21 08:18 Intake & Output 06/09/21 06/09/21 06/10/21 11:59 23:59 11:59 Intake Total 2300 / 2300 2069 Output Total 1350 / 1350 500 / 500 Balance 950 / 950 1570 / 1570 Weight 79.1 kg Intake: IV 1999 / 1999 Oral 300 / 300 2069 Output: Urine 1350 / 1350 500 / 500 Other: Urine Color Yellow Yellow Urine Appearance Clear Clear Urine Odor Normal Normal Voiding Methods Toilet Toilet Data Completed and Pending Completed studies during hospitalization [Text1]: Exam(s) XR CHEST 2V PA LATERAL EXAM: XR CHEST 2V PA LATERAL CLINICAL HISTORY: altered mental status, r/o acute disease. TECHNIQUE: 2D digital imaging was performed. COMPARISON: CR XR CHEST 2V PA LATERAL from 05/14/2021 FINDINGS: Heart size is unchanged. The mediastinum is not widened mediastinum. Lungs are clear. No infiltrates nor pleural effusions. No pulmonary edema. No pneumothorax. Bipolar pacemaker again noted. Exam(s) a CT:CT head wo Exam(s) CT HEAD WO EXAM: CT HEAD WO CLINICAL HISTORY: altered mental status, r/o acute cva. TECHNIQUE: Imaging Protocol: Axial computed tomography images with coronal and sagittal reformatted images were created and reviewed COMPARISON: CT CT HEAD WO from 04/29/2021 FINDINGS: There are no skull fractures nor fluid in the visualized paranasal sinuses. There is no evidence of intracranial hemorrhage, mass effect, or shift of midline structures. There are no extra-axial fluid collections. The ventricles are not enlarged or shifted and there is no blood within the ventricular system nor within the basal cisterns. IMPRESSION: No acute intracranial findings on this noninfused CT scan of the brain. No significant change to 04/29/2021. Exam(s) PROCEDURE INFORMATION: Exam: CT Head Without Contrast Exam date and time: 06/09/2021 3:55 PM Age: 55 years old Clinical indication: Other: AMS, R/O acute CVA TECHNIQUE: Imaging protocol: Computed tomography of the head without contrast. Radiation optimization: All CT scans at this facility use at least one of these dose optimization techniques: automated exposure control; mA and/or kV adjustment per patient size (includes targeted exams where dose is matched to clinical indication); or iterative reconstruction. COMPARISON: CT HEAD WO 04/29/2021 12:07 AM FINDINGS: Brain: There is mild diffuse heterogeneity of the white matter attenuation, consistent with chronic white matter ischemic changes. Mild cerebral atrophy; No acute intracranial hemorrhage.. Cerebral ventricles: No ventriculomegaly. Paranasal sinuses: Visualized sinuses are unremarkable. No fluid levels. Mastoid air cells: Visualized mastoid air cells are well aerated. Bones/joints: Unremarkable. No acute fracture. Soft tissues: Unremarkable. IMPRESSION: No acute intracranial hemorrhage.. Exam(s) PROCEDURE INFORMATION: Exam: XR Chest Exam date and time: 06/09/2021 3:22 PM Age: 55 years old Clinical indication: Other: AMS, R/O acute CVA TECHNIQUE: Imaging protocol: XR of the chest. Views: 2 views. COMPARISON: CR XR CHEST 2V PA LATERAL 05/14/2021 10:57 AM FINDINGS: Tubes, catheters and devices: Transvenous pacemaker leads in the heart Lungs: Mild opacities in the lung bases may represent atelectasis or pneumonia.. Pleural spaces: There may be mild left pleural effusion. Heart/Mediastinum: Mild cardiomegaly Bones/joints: Unremarkable. IMPRESSION: 1. Mild opacities in the lung bases may represent atelectasis or pneumonia.. 2. There may be mild left pleural effusion. Labs on day of discharge: Labs from last 24 hours 06/09/21 06/09/21 06/09/21 19:50 17:50 16:45 WBC RBC Hgb Hct MCV MCH MCHC RDW Plt Count MPV Immature Gran % Neutrophils % Lymphocytes % Monocytes % Eosinophils % Basophils % Nucleated RBC % Absolute Neutrophils Absolute Lymphocytes Absolute Monocytes Absolute Eosinophils Absolute Basophils ABG Sample Site Right Radial ABG pH 7.30 L ABG pCO2 51 H ABG pO2 98 ABG HCO3 25 ABG Total CO2 22 L ABG O2 Saturation 97 ABG Base Excess -2 Oxygen Liter Flow 2 Sodium Potassium Chloride Carbon Dioxide Anion Gap BUN Creatinine Estimated GFR/1.73 m2 Glucose Calcium Magnesium Total Bilirubin AST ALT Alkaline Phosphatase Troponin I Total Protein Albumin Salicylates Urine Opiates Screen Positive A Urine Methadone Screen Negative Acetaminophen Ur Barbiturates Screen Negative Ur Tricyclics Screen Positive A Ur Amphetamines Screen Negative U Benzodiazepines Scrn Negative Urine Cocaine Screen Negative Ur THC Screen Negative Ethyl Alcohol COVID-19 Source Nasal/Nares SARS-CoV-2 (PCR) Negative 06/09/21 06/09/21 06/09/21 14:40 14:40 14:40 WBC 6.31 RBC 5.09 Hgb 16.4 Hct 49.1 MCV 96.5 H MCH 32.2 MCHC 33.4 RDW 12.2 Plt Count 146 MPV 10.9 Immature Gran % 0.3 Neutrophils % 71.3 Lymphocytes % 16.5 Monocytes % 10.8 Eosinophils % 0.8 Basophils % 0.3 Nucleated RBC % 0 Absolute Neutrophils 4.50 Absolute Lymphocytes 1.04 L Absolute Monocytes 0.68 Absolute Eosinophils 0.05 Absolute Basophils 0.02 ABG Sample Site ABG pH ABG pCO2 ABG pO2 ABG HCO3 ABG Total CO2 ABG O2 Saturation ABG Base Excess Oxygen Liter Flow Sodium 137 Potassium 4.7 Chloride 102 Carbon Dioxide 28.6 Anion Gap 6.4 BUN 13 Creatinine 1.0 Estimated GFR/1.73 m2 >= 60.00 Glucose 111 H Calcium 9.4 Magnesium 2.1 Total Bilirubin 0.4 AST 17 ALT 26 Alkaline Phosphatase 68 Troponin I < 0.05 Total Protein 6.9 Albumin 3.6 Salicylates 11.2 Urine Opiates Screen Urine Methadone Screen Acetaminophen 6 Ur Barbiturates Screen Ur Tricyclics Screen Ur Amphetamines Screen U Benzodiazepines Scrn Urine Cocaine Screen Ur THC Screen Ethyl Alcohol < 3.0 COVID-19 Source SARS-CoV-2 (PCR) PFSH Medical History Acquired deformity of left hand Agoraphobia Anxiety Anxiety with depression Arthritis Biventricular implantable cardioverter-defibrillator (ICD) in situ Mode:DDD, Low rate 60bpm, Atrial lead: medtronic 5076, SN: [id number] 09/27/14; RV lead Medtronic 6935M SN: [id number] 09/27/14; LV lead Medtronic 4396, SN; [id number] 09/27/14 (updated 03/11/20) BPH (benign prostatic hyperplasia) Cardiomyopathy Chest pain CHF (congestive heart failure) Chronic pain syndrome Cognitive impairment Cyst Depression Diabetes Diarrhea Dizziness Erectile dysfunction Fatigue Hallucination Hand paresthesia Heart disease History of alcohol abuse History of suicidal ideation History of tobacco abuse Hyperlipidemia Impacted ear wax LBBB (left bundle branch block) Lung disease Metacarpophalangeal joint pain Nonischemic dilated cardiomyopathy Pacemaker Pain in right hip Panic anxiety syndrome PTSD (post-traumatic stress disorder) Severe chronic obstructive pulmonary disease Skin lesion Systolic and diastolic CHF, chronic Tobacco use Surgical History Status post biventricular pacemaker Family History Mother , 2008 COPD (chronic obstructive pulmonary disease) Social History Smoking/Tobacco Use Status: Current every day Tobacco Type: cigarettes Smoking risk assessment performed?: Yes Alcohol Intake: former Drug use: Never Household members: none Pets and animals: No What type of physical activity do you participate in: none Seatbelt use: always Do you feel safe at home: Yes Do you feel safe in your relationship?: Yes Additional Social history: lives alone
[2021-06-10] MEDS: Albuterol 2.5 MG/3 ML INH SOLN VIAL 1.25 MG UPD (12:00)
--- NOTE | 2021-07-19 13:41 | ED.GENADUL_ITS ---
Discharge Plan Disposition Patient Disposition: [facility] INPATIENT Condition: Stable Discharge Details Clinical Impression: Altered mental status Admit Date/Time: 06/09/21 19:29 Admit Provider: Hao Mi Attending Provider: Hao Mi Primary Care Provider: Lorrie Crespo ED Provider: Yeny Pickens Discharge Data Discharge Date/Time-TO BE ENTERED AT DEPARTURE: 06/09/21 20:37 HPI General Mode of arrival: EMS . Date/Time Provider Initiated Documentation: 06/09/21 15:08 . Limitations to Documentation: altered mental status . Information obtained by: patient, RN/MD and EMS . Related Data Home Medications Medication Instructions Recorded Confirmed nitroglycerin 0.4 mg SUBLINGUAL one every 5 07/27/17 06/09/21 mins. x3 #30 tab-cap montelukast 10 mg PO DAILY 03/08/20 06/09/21 benztropine 1 mg PO HS #0 tab 03/17/20 06/09/21 bupropion HCl 300 mg PO QAM #10 tab 03/17/20 06/09/21 pravastatin 20 mg PO QHS #10 tab 03/17/20 06/09/21 clonazepam 2 mg PO BID 05/02/20 06/09/21 bupropion HCl 150 mg PO QAM 01/21/21 06/09/21 ipratropium-albuterol 3 ml IH Q6H #90 ml 01/28/21 06/09/21 acetaminophen 325 mg capsule 325 - 650 mg PO Q4H PRN PRN 02/18/21 06/09/21 amitriptyline 25 mg tablet 50 mg PO QHS tab 02/18/21 06/09/21 fluticasone 250 mcg-salmeterol 50 1 inh INHALATION BID 02/18/21 06/09/21 mcg/dose blistr powdr for inhalation hydrocodone 5 mg-acetaminophen 325 1 tab PO TID PRN PRN 02/18/21 06/09/21 mg tablet quetiapine 400 mg tablet 400 mg PO HS tab 02/18/21 06/09/21 vortioxetine 5 mg tablet 20 mg PO DAILY tab 02/18/21 06/09/21 gabapentin 800 mg PO TID 04/29/21 06/09/21 quetiapine 100 mg PO QHS 04/29/21 06/09/21 albuterol sulfate 1.25 mg INHALATION QID PRN #90 ml 05/01/21 06/09/21 pantoprazole 40 mg PO DAILY@0730 #30 tab 05/01/21 06/09/21 Spiriva Respimat 2 puff INHALATION DAILY #4 g 05/16/21 06/09/21 amoxicillin-pot clavulanate 1 tab PO BID #7 tab 06/10/21 [Augmentin] Previous Rx's Medication Instructions Recorded nitroglycerin 0.4 mg SUBLINGUAL one every 5 07/27/17 mins. x3 #30 tab-cap benztropine 1 mg PO HS #0 tab 03/17/20 bupropion HCl 300 mg PO QAM #10 tab 03/17/20 pravastatin 20 mg PO QHS #10 tab 03/17/20 ipratropium-albuterol 3 ml IH Q6H #90 ml 01/28/21 albuterol sulfate 1.25 mg INHALATION QID PRN #90 ml 05/01/21 pantoprazole 40 mg PO DAILY@0730 #30 tab 05/01/21 Spiriva Respimat 2 puff INHALATION DAILY #4 g 05/16/21 amoxicillin-pot clavulanate 1 tab PO BID #7 tab 06/10/21 [Augmentin] Allergies Allergy/AdvReac Type Severity Reaction Status Date / Time citalopram Allergy Unverified 05/21/21 10:13 oxycodone HCl [From Percocet] AdvReac Addiction Unverified 05/21/21 10:13 General Stated Complaint: AMS/LOC MOLLY: 2 PFSH Medical History Acquired deformity of left hand Agoraphobia Anxiety Anxiety with depression Arthritis Biventricular implantable cardioverter-defibrillator (ICD) in situ Mode:DDD, Low rate 60bpm, Atrial lead: medtronic 5076, SN: [id number] 09/27/14; RV lead Medtronic [id number] SN: [id number] 09/27/14; LV lead Medtronic 4396, SN; [id number] 09/27/14 (updated 03/11/20) BPH (benign prostatic hyperplasia) Cardiomyopathy Chest pain CHF (congestive heart failure) Chronic pain syndrome Cognitive impairment Cyst Depression Diabetes Diarrhea Dizziness Erectile dysfunction Fatigue Hallucination Hand paresthesia Heart disease History of alcohol abuse History of suicidal ideation History of tobacco abuse Hyperlipidemia Impacted ear wax LBBB (left bundle branch block) Lung disease Metacarpophalangeal joint pain Nonischemic dilated cardiomyopathy Pacemaker Pain in right hip Panic anxiety syndrome PTSD (post-traumatic stress disorder) Severe chronic obstructive pulmonary disease Skin lesion Systolic and diastolic CHF, chronic Tobacco use Surgical History Status post biventricular pacemaker Family History Mother , 2008 COPD (chronic obstructive pulmonary disease) Social History Smoking/Tobacco Use Status: Current every day Tobacco Type: cigarettes Smoking risk assessment performed?: Yes Alcohol Intake: former Drug use: Never Household members: none Pets and animals: No What type of physical activity do you participate in: none Seatbelt use: always Do you feel safe at home: Yes Do you feel safe in your relationship?: Yes Additional Social history: lives alone Course Vital Signs Vital signs: Vital Signs Temperature 97.5 F L 06/09/21 15:09 Pulse 84 06/09/21 15:09 Respiratory Rate 15 06/09/21 15:09 Blood Pressure 133/82 06/09/21 15:09 Pulse Oximetry 98 06/09/21 15:09 Temperature 99.0 F 06/10/21 11:09 Temperature Source Tympanic 06/10/21 11:09 Pulse 96 H 06/10/21 13:51 Pulse Rhythm Regular 06/10/21 07:58 Pulse 93 H 06/09/21 20:10 Respiratory Rate 12 06/10/21 13:51 Respiratory Effort 06/10/21 07:58 Respiratory Depth Normal 06/10/21 07:58 Respiratory Pattern Normal 06/10/21 07:58 Blood Pressure 147/89 H 06/10/21 11:09 Blood Pressure Mean 120 06/09/21 20:02 Blood Pressure Position Supine 06/09/21 15:09 Pulse Oximetry 90 L 06/10/21 13:51 Oxygen Delivery Method Room Air 06/10/21 13:51 Oxygen Flow Rate 0 06/10/21 13:51 Pain Level 0 06/10/21 11:09 Lab/Test Results Lab/Test Results: Laboratory Tests Range/Units 06/09/21 06/09/2121 14:40 14:40 14:40 WBC (4.4-10.8) 10^3/uL 6.31 RBC (4.36-5.78) 10^6/uL 5.09 Hgb (13.5-17.5) g/dL 16.4 Hct (40.0-50.0) % 49.1 MCV (80-95) fL 96.5 H MCH (27.0-33.0) pg 32.2 MCHC (32.0-36.0) % 33.4 RDW (11.8-14.1) % 12.2 Plt Count (130-400) 10^3/uL 146 MPV (8.0-11.0) fL 10.9 Immature Gran % 0.3 Neutrophils % 71.3 Lymphocytes % 16.5 Monocytes % 10.8 Eosinophils % 0.8 Basophils % 0.3 Nucleated RBC % % 0 Absolute Neutrophils (1.2-6.7) 10^3/uL 4.50 Absolute Lymphocytes (1.2-3.4) 10^3/uL 1.04 L Absolute Monocytes (0.1-0.8) 10^3/uL 0.68 Absolute Eosinophils (0.0-0.7) 10^3/uL 0.05 Absolute Basophils (0.0-0.2) 10^3/uL 0.02 ABG Sample Site ABG pH (7.35-7.45) ABG pCO2 (35-45) mmHg ABG pO2 (80-105) mmHg ABG HCO3 (22-26) mmol/L ABG Total CO2 (23-27) mmol/L ABG O2 Saturation (95-98) % ABG Base Excess (-2-3) mmol/L Oxygen Liter Flow L Sodium (136-145) mmol/L 137 Potassium (3.5-5.1) mmol/L 4.7 Chloride (98-107) mmol/L 102 Carbon Dioxide (21.0-32.0) mmol/L 28.6 Anion Gap (3-11) mmol/L 6.4 BUN (7-18) mg/dL 13 Creatinine (0.70-1.30) mg/dL 1.0 Estimated GFR/1.73 m2 (mL/min/1.73m2) >= 60.00 Glucose (74-106) mg/dL 111 H Calcium (8.5-10.1) mg/dL 9.4 Magnesium (1.8-2.4) mg/dL 2.1 Total Bilirubin (0.2-1.0) mg/dL 0.4 AST (15-37) U/L 17 ALT (16-63) U/L 26 Alkaline Phosphatase (46-116) U/L 68 Troponin I (<0.06) ng/mL < 0.05 Total Protein (6.4-8.2) g/dL 6.9 Albumin (3.4-5.0) g/dL 3.6 Salicylates (<2.8) mg/dL 11.2 Urine Opiates Screen (Negative) Urine Methadone Screen (Negative) Acetaminophen (10-30) ug/mL 6 Ur Barbiturates Screen (Negative) Ur Tricyclics Screen (Negative) Ur Amphetamines Screen (Negative) U Benzodiazepines Scrn (Negative) Urine Cocaine Screen (Negative) Ur THC Screen (Negative) Ethyl Alcohol (<3) mg/dL < 3.0 Range/Units 06/09/21 06/09/21 16:45 17:50 WBC (4.4-10.8) 10^3/uL RBC (4.36-5.78) 10^6/uL Hgb (13.5-17.5) g/dL Hct (40.0-50.0) % MCV (80-95) fL MCH (27.0-33.0) pg MCHC (32.0-36.0) % RDW (11.8-14.1) % Plt Count (130-400) 10^3/uL MPV (8.0-11.0) fL Immature Gran % Neutrophils % Lymphocytes % Monocytes % Eosinophils % Basophils % Nucleated RBC % % Absolute Neutrophils (1.2-6.7) 10^3/uL Absolute Lymphocytes (1.2-3.4) 10^3/uL Absolute Monocytes (0.1-0.8) 10^3/uL Absolute Eosinophils (0.0-0.7) 10^3/uL Absolute Basophils (0.0-0.2) 10^3/uL ABG Sample Site Right Radial ABG pH (7.35-7.45) 7.30 L ABG pCO2 (35-45) mmHg 51 H ABG pO2 (80-105) mmHg 98 ABG HCO3 (22-26) mmol/L 25 ABG Total CO2 (23-27) mmol/L 22 L ABG O2 Saturation (95-98) % 97 ABG Base Excess (-2-3) mmol/L -2 Oxygen Liter Flow L 2 Sodium (136-145) mmol/L Potassium (3.5-5.1) mmol/L Chloride (98-107) mmol/L Carbon Dioxide (21.0-32.0) mmol/L Anion Gap (3-11) mmol/L BUN (7-18) mg/dL Creatinine (0.70-1.30) mg/dL Estimated GFR/1.73 m2 (mL/min/1.73m2) Glucose (74-106) mg/dL Calcium (8.5-10.1) mg/dL Magnesium (1.8-2.4) mg/dL Total Bilirubin (0.2-1.0) mg/dL AST (15-37) U/L ALT (16-63) U/L Alkaline Phosphatase (46-116) U/L Troponin I (<0.06) ng/mL Total Protein (6.4-8.2) g/dL Albumin (3.4-5.0) g/dL Salicylates (<2.8) mg/dL Urine Opiates Screen (Negative) Positive A Urine Methadone Screen (Negative) Negative Acetaminophen (10-30) ug/mL Ur Barbiturates Screen (Negative) Negative Ur Tricyclics Screen (Negative) Positive A Ur Amphetamines Screen (Negative) Negative U Benzodiazepines Scrn (Negative) Negative Urine Cocaine Screen (Negative) Negative Ur THC Screen (Negative) Negative Ethyl Alcohol (<3) mg/dL
== END 2021-06-10 16:26 | disposition home or self-care (01) ==
LOC: ER 19:36 → MS 20:40
PROVIDERS: Admitting Provider General Practice; Emergency Provider Physician Assistant; PCP Nurse Practitioner Family; Visit Provider General Practice
DX: R40.0 Somnolence (principal); I42.0 Dilated cardiomyopathy; I50.42 Chronic combined systolic (congestive) and diastolic (congestive) heart failure; R91.8 Other nonspecific abnormal finding of lung field; J44.9 Chronic obstructive pulmonary disease, unspecified; F19.11 Other psychoactive substance abuse, in remission; F41.8 Other specified anxiety disorders; Z95.810 Presence of automatic (implantable) cardiac defibrillator; G89.4 Chronic pain syndrome; E11.9 Type 2 diabetes mellitus without complications; N40.0 Benign prostatic hyperplasia without lower urinary tract symptoms; F17.210 Nicotine dependence, cigarettes, uncomplicated; E78.5 Hyperlipidemia, unspecified; I44.7 Left bundle-branch block, unspecified; F40.01 Agoraphobia with panic disorder
CPT/HCPCS: 36415; 36416; 51701; 80053; 80307; 82805; 82962; 87635; 93005; 94640; 96361; 96374; 96376; 99285; 70450; 71046; 80320; 80329; 83735; 84484; 85025; 93010; 99217; 99219; G0378; J2310; J7613; J7620

== ENCOUNTER 2021-07-19 13:52 | Observation (INO) | payer MEDICARE, SELFPAY ==
[2021-07-19] VITALS (60 sets, daily range): BP systolic 114–151; BP diastolic 63–96; PULSE 73–99; RESP 8–28; TEMP 36.2–36.6; O2SAT 90–98
--- NOTE | 2021-07-19 13:45 | RT.EKG_ITS ---
APPROVED REPORT Exam: Resting ECG Reason for Exam: unresponsive Patient Location: E HR:76 bpm ECG Measurements Heart Rate 76 AXIS ND 151 P 66 QRSd 151 QRS 255 QT 439 T 37 QTc 494 Conclusion Atrial-sensed ventricular-paced rhythm...ventricular pacing tracks p-waves Biventricular paced rhythm...non-simultaneous bi-vent pacing. Paced. No STEMI. No change from previous. I have reviewed and interpreted ECG and agree with software generated interpretation.
--- NOTE | 2021-07-19 13:49 | W.ED.GENAD ---
Discharge Plan Disposition Patient Disposition: [facility] INPATIENT Condition: Stable Discharge Details Clinical Impression: Altered mental status, Ambulatory dysfunction, Adult failure to thrive Admit Date/Time: 07/19/21 19:39 Admit Provider: Lore Lynne Attending Provider: Lore Lynne Primary Care Provider: Lorrie Crespo ED Provider: Yeny Pickens Discharge Data Discharge Date/Time-TO BE ENTERED AT DEPARTURE: 07/19/21 21:04 Medical Decision Making 1400 -- 55-year-old male well-known to the emergency department admitted here last month for decreased responsiveness presents for decreased responsiveness after found by a neighbor on the floor this morning. No report of trauma. Patient appears similar to his presentation when seen her last month in the ED for decreased responsiveness. He is snoring and drowsy but arousable to voice and able to answer questions and follow commands. He falls asleep during some questioning and does not answer and then is arousable to pain. He is protecting his airway. His oxygen saturation is is 96% on room air. He has no focal deficits and appears nontoxic. He is moving all extremities. Patient is on multiple sedating very medications including amitriptyline, bupropion, clonazepam, Vicodin, Seroquel. Differential diagnosis includes oversedation secondary to polymedication, also consider dehydration, CVA, UTI, electrolyte abnormality, arrhythmia, etc. Will place an IV, bolus IV fluids, screening labs, urinalysis, CT head, chest x-ray. 1500 -- Labs reviewed. White blood cell count normal at 6. Normal renal function. Troponin negative. Urinalysis negative. Salicylates negative. Acetaminophen negative. UDS positive for opiates, TCAs and benzodiazepines. Alcohol negative. Covid negative. CT head and neck negative for acute disease. Chest x-ray negative. Patient given 0.4 mg IV Narcan x1 without significant immediate response but within 30 to 40 minutes, patient more awake and alert and talking. Will ambulate and p.o. challenge. 1800 --patient was able to eat a burger. Attempted to ambulate and required 2 person assist and was weak and off balance. Will admit for ambulatory dysfunction and adult failure to thrive. Patient has [facility] human services who check on him daily and provide his medication. This has been patient's second admission in just over a month for unresponsive episode and oversedation. He has Meals on Wheels twice daily but was reported to have not eaten in days. It appears that patient cannot live at home independently. Will admit patient for observation overnight with care management involvement on discharge planning as he may require assisted living or detention environment. Case discussed with hospitalist who accepts patient for admission. Medical Records Medical records reviewed: Yes I reviewed the patient's medical records. Imaging Data Radiologic Study: Radiologist's impression: XR Chest Exam date and time: 07/19/2021 2:10 PM Age: 55 years old Clinical indication: Other: Unresponsive TECHNIQUE: Imaging protocol: XR of the chest. Views: 2 views. COMPARISON: CR XR CHEST 2V PA LATERAL 06/09/2021 4:05 PM FINDINGS: Tubes, catheters and devices: Pacemaker device present, and leads appear to be in appropriate position. Lungs: Unremarkable. No consolidation. Pleural spaces: Unremarkable. No pleural effusion. No pneumothorax. Heart/Mediastinum: Unremarkable. No cardiomegaly. Bones/joints: Unremarkable. IMPRESSION: No acute abnormality identified. CT Head Without Contrast Exam date and time: 07/19/2021 2:10 PM Age: 55 years old Clinical indication: Alteration of consciousness; Other: Unresponsive TECHNIQUE: Imaging protocol: Computed tomography of the head without contrast. Radiation optimization: All CT scans at this facility use at least one of these dose optimization techniques: automated exposure control; mA and/or kV adjustment per patient size (includes targeted exams where dose is matched to clinical indication); or iterative reconstruction. COMPARISON: CT HEAD WO 06/09/2021 4:00 PM FINDINGS: Brain: No acute intracranial hemorrhage.. There is mild diffuse heterogeneity of the white matter attenuation, consistent with chronic white matter ischemic changes. Mild cerebral atrophy Cerebral ventricles: No ventriculomegaly. Paranasal sinuses: Visualized sinuses are unremarkable. No fluid levels. Mastoid air cells: Visualized mastoid air cells are well aerated. Bones/joints: Unremarkable. No acute fracture. Soft tissues: Unremarkable. IMPRESSION: No acute intracranial hemorrhage.. CT Cervical Spine Without Contrast Exam date and time: 07/19/2021 2:10 PM Age: 55 years old Clinical indication: Alteration of consciousness; Other: Unresponsive TECHNIQUE: Imaging protocol: Computed tomography images of the cervical spine without contrast. Radiation optimization: All CT scans at this facility use at least one of these dose optimization techniques: automated exposure control; mA and/or kV adjustment per patient size (includes targeted exams where dose is matched to clinical indication); or iterative reconstruction. COMPARISON: CT HEAD WO 06/09/2021 4:00 PM FINDINGS: Bones/joints: No acute fracture of the cervical spine. No subluxation or dislocation of the cervical spine. Anterior osteophyte formation C6/C7. Degenerative changes in the facets at multiple levels Discs/Spinal canal/Neural foramina: Intervertebral disc space narrowing C6/C7 may represent degenerative disc disease.. Posterior osteophyte formation C6/C7. Degenerative changes at C1/C2 Thyroid: The thyroid is unremarkable Lungs: Emphysematous changes in the right apex Pleural spaces: No lung markings in the apex of the left lung may indicate large bulla versus pneumothorax.. Soft tissues: Unremarkable. IMPRESSION: 1. No acute fracture of the cervical spine. 2. No subluxation or dislocation of the cervical spine. 3. Intervertebral disc space narrowing C6/C7 may represent degenerative disc disease.. 4. No lung markings in the apex of the left lung may indicate large bulla versus pneumothorax. Lab Data Lab results reviewed: Yes I reviewed the patient's lab results. Labs: Laboratory Tests Range/Units 07/19/21 07/19/21 07/19/21 14:10 14:10 14:10 WBC (4.4-10.8) 10^3/uL 6.65 RBC (4.36-5.78) 10^6/uL 4.97 Hgb (13.5-17.5) g/dL 15.7 Hct (40.0-50.0) % 47.0 MCV (80-95) fL 94.6 MCH (27.0-33.0) pg 31.6 MCHC (32.0-36.0) % 33.4 RDW (11.8-14.1) % 12.5 Plt Count (130-400) 10^3/uL 137 MPV (8.0-11.0) fL 11.4 H Immature Gran % 0.3 Neutrophils % 72.4 Lymphocytes % 14.6 Monocytes % 9.9 Eosinophils % 2.0 Basophils % 0.8 Nucleated RBC % % 0 Absolute Neutrophils (1.2-6.7) 10^3/uL 4.82 Absolute Lymphocytes (1.2-3.4) 10^3/uL 0.97 L Absolute Monocytes (0.1-0.8) 10^3/uL 0.66 Absolute Eosinophils (0.0-0.7) 10^3/uL 0.13 Absolute Basophils (0.0-0.2) 10^3/uL 0.05 Sodium (136-145) mmol/L 144 Potassium (3.5-5.1) mmol/L 4.2 Chloride (98-107) mmol/L 109 H Carbon Dioxide (21.0-32.0) mmol/L 30.3 Anion Gap (3-11) mmol/L 4.7 BUN (7-18) mg/dL 12 Creatinine (0.70-1.30) mg/dL 1.1 Estimated GFR/1.73 m2 (mL/min/1.73m2) >= 60.00 Glucose (74-106) mg/dL 90 Calcium (8.5-10.1) mg/dL 8.4 L Magnesium (1.8-2.4) mg/dL 2.1 Total Bilirubin (0.2-1.0) mg/dL 0.2 AST (15-37) U/L 14 L ALT (16-63) U/L 20 Alkaline Phosphatase (46-116) U/L 58 Troponin I (<0.06) ng/mL < 0.05 Total Protein (6.4-8.2) g/dL 6.1 L Albumin (3.4-5.0) g/dL 3.2 L Urine Color (Yellow) Urine Clarity (Clear) Urine pH (5-8) Ur Specific [place] (1.005-1.025) Urine Protein (Negative) mg/dL Urine Ketones (Negative) mg/dL Urine Blood (Negative) Urine Nitrite (Negative) Urine Bilirubin (Negative) Urine Urobilinogen (Up TO 0.2) EU/dL Ur Leukocyte Esterase (Negative) Urine Glucose (Negative) mg/dL Salicylates (<2.8) mg/dL 5.5 Urine Opiates Screen (Negative) Urine Methadone Screen (Negative) Acetaminophen (10-30) ug/mL 13 Ur Barbiturates Screen (Negative) Ur Tricyclics Screen (Negative) Ur Amphetamines Screen (Negative) U Benzodiazepines Scrn (Negative) Urine Cocaine Screen (Negative) Ur THC Screen (Negative) Ethyl Alcohol (<3) mg/dL < 3.0 COVID-19 Source SARS-CoV-2 (PCR) (Negative) Range/Units 07/19/21 07/19/21 07/19/21 14:14 14:20 14:20 WBC (4.4-10.8) 10^3/uL RBC (4.36-5.78) 10^6/uL Hgb (13.5-17.5) g/dL Hct (40.0-50.0) % MCV (80-95) fL MCH (27.0-33.0) pg MCHC (32.0-36.0) % RDW (11.8-14.1) % Plt Count (130-400) 10^3/uL MPV (8.0-11.0) fL Immature Gran % Neutrophils % Lymphocytes % Monocytes % Eosinophils % Basophils % Nucleated RBC % % Absolute Neutrophils (1.2-6.7) 10^3/uL Absolute Lymphocytes (1.2-3.4) 10^3/uL Absolute Monocytes (0.1-0.8) 10^3/uL Absolute Eosinophils (0.0-0.7) 10^3/uL Absolute Basophils (0.0-0.2) 10^3/uL Sodium (136-145) mmol/L Potassium (3.5-5.1) mmol/L Chloride (98-107) mmol/L Carbon Dioxide (21.0-32.0) mmol/L Anion Gap (3-11) mmol/L BUN (7-18) mg/dL Creatinine (0.70-1.30) mg/dL Estimated GFR/1.73 m2 (mL/min/1.73m2) Glucose (74-106) mg/dL Calcium (8.5-10.1) mg/dL Magnesium (1.8-2.4) mg/dL Total Bilirubin (0.2-1.0) mg/dL AST (15-37) U/L ALT (16-63) U/L Alkaline Phosphatase (46-116) U/L Troponin I (<0.06) ng/mL Total Protein (6.4-8.2) g/dL Albumin (3.4-5.0) g/dL Urine Color (Yellow) Yellow Urine Clarity (Clear) Clear Urine pH (5-8) 5.5 Ur Specific [place] (1.005-1.025) >= 1.030 H Urine Protein (Negative) mg/dL Negative Urine Ketones (Negative) mg/dL Trace H Urine Blood (Negative) Negative Urine Nitrite (Negative) Negative Urine Bilirubin (Negative) Negative Urine Urobilinogen (Up TO 0.2) EU/dL 0.2 Ur Leukocyte Esterase (Negative) Negative Urine Glucose (Negative) mg/dL Negative Salicylates (<2.8) mg/dL Urine Opiates Screen (Negative) Positive A Urine Methadone Screen (Negative) Negative Acetaminophen (10-30) ug/mL Ur Barbiturates Screen (Negative) Negative Ur Tricyclics Screen (Negative) Positive A Ur Amphetamines Screen (Negative) Negative U Benzodiazepines Scrn (Negative) Positive A Urine Cocaine Screen (Negative) Negative Ur THC Screen (Negative) Negative Ethyl Alcohol (<3) mg/dL COVID-19 Source Nasal/Nares SARS-CoV-2 (PCR) (Negative) Negative ECG Data Attestation: I personally reviewed and interpreted this ECG (s) as follows: Interpretation: Rate of 76, paced. No STEMI. No change from previous EKG. HPI General Mode of arrival: EMS. Date/Time Provider Initiated Documentation: 07/19/21 14:08. Limitations to Documentation: no limitations. Information obtained by: patient and EMS. HPI Narrative: Patient is a 55-year-old male well-known to the emergency department admitted here last month for unresponsiveness, presents to the ED for decreased responsiveness and lethargy today. Per EMS, patient was found on the floor by his neighbor with decreased responsiveness compared to his baseline. Patient denies any pain. He is drowsy and falls asleep during questioning. No report of known trauma. Related Data Home Medications Medication Instructions Recorded Confirmed nitroglycerin 0.4 mg SUBLINGUAL one every 5 07/27/17 07/19/21 mins. x3 #30 tab-cap montelukast 10 mg PO DAILY 03/08/20 07/19/21 benztropine 1 mg PO HS #0 tab 03/17/20 07/19/21 bupropion HCl 300 mg PO QAM #10 tab 03/17/20 07/19/21 pravastatin 20 mg PO QHS #10 tab 03/17/20 07/19/21 clonazepam 2 mg PO BID 05/02/20 07/19/21 bupropion HCl 150 mg PO QAM 01/21/21 07/19/21 ipratropium-albuterol 3 ml IH Q6H #90 ml 01/28/21 07/19/21 acetaminophen 325 mg capsule 325 - 650 mg PO Q4H PRN PRN 02/18/21 07/19/21 amitriptyline 25 mg tablet 50 mg PO QHS tab 02/18/21 07/19/21 fluticasone 250 mcg-salmeterol 50 1 inh INHALATION BID 02/18/21 07/19/21 mcg/dose blistr powdr for inhalation hydrocodone 5 mg-acetaminophen 325 1 tab PO TID PRN PRN 02/18/21 07/19/21 mg tablet quetiapine 400 mg tablet 400 mg PO HS tab 02/18/21 07/19/21 vortioxetine 5 mg tablet 20 mg PO DAILY tab 02/18/21 07/19/21 gabapentin 800 mg PO TID 04/29/21 07/19/21 quetiapine 100 mg PO QHS 04/29/21 07/19/21 albuterol sulfate 1.25 mg INHALATION QID PRN #90 ml 05/01/21 07/19/21 pantoprazole 40 mg PO DAILY@0730 #30 tab 05/01/21 07/19/21 Spiriva Respimat 2 puff INHALATION DAILY #4 g 05/16/21 07/19/21 amoxicillin-pot clavulanate 1 tab PO BID #7 tab 06/10/21 [Augmentin] Previous Rx's Medication Instructions Recorded nitroglycerin 0.4 mg SUBLINGUAL one every 5 07/27/17 mins. x3 #30 tab-cap benztropine 1 mg PO HS #0 tab 03/17/20 bupropion HCl 300 mg PO QAM #10 tab 03/17/20 pravastatin 20 mg PO QHS #10 tab 03/17/20 ipratropium-albuterol 3 ml IH Q6H #90 ml 01/28/21 albuterol sulfate 1.25 mg INHALATION QID PRN #90 ml 05/01/21 pantoprazole 40 mg PO DAILY@0730 #30 tab 05/01/21 Spiriva Respimat 2 puff INHALATION DAILY #4 g 05/16/21 amoxicillin-pot clavulanate 1 tab PO BID #7 tab 06/10/21 [Augmentin] Allergies Allergy/AdvReac Type Severity Reaction Status Date / Time citalopram Allergy Unverified 07/19/21 20:47 oxycodone HCl [From Percocet] AdvReac Addiction Unverified 07/19/21 20:47 General MOLLY: 2 Review of Systems Unobtainable due to mental status PFSH Medical History Acquired deformity of left hand Agoraphobia Anxiety Anxiety with depression Arthritis Biventricular implantable cardioverter-defibrillator (ICD) in situ Mode:DDD, Low rate 60bpm, Atrial lead: medtronic 5076, SN: [id number] 09/27/14; RV lead Medtronic 6935M SN: [id number] 09/27/14; LV lead Medtronic 4396, SN; [id number] 09/27/14 (updated 03/11/20) BPH (benign prostatic hyperplasia) Cardiomyopathy Chest pain CHF (congestive heart failure) Chronic pain syndrome Cognitive impairment Cyst Depression Diabetes Diarrhea Dizziness Erectile dysfunction Fatigue Hallucination Hand paresthesia Heart disease History of alcohol abuse History of suicidal ideation History of tobacco abuse Hyperlipidemia Impacted ear wax LBBB (left bundle branch block) Lung disease Metacarpophalangeal joint pain Nonischemic dilated cardiomyopathy Pacemaker Pain in right hip Panic anxiety syndrome PTSD (post-traumatic stress disorder) Severe chronic obstructive pulmonary disease Skin lesion Systolic and diastolic CHF, chronic Tobacco use Surgical History Status post biventricular pacemaker Family History Mother , 2008 COPD (chronic obstructive pulmonary disease) Social History Smoking/Tobacco Use Status: Current every day Tobacco Type: cigarettes Smoking risk assessment performed?: Yes Alcohol Intake: former Drug use: Never Household members: none Pets and animals: No What type of physical activity do you participate in: none Seatbelt use: always Do you feel safe at home: Yes Do you feel safe in your relationship?: Yes Additional Social history: lives alone Exam Const General: cooperative and healthy appearing Orientation: alert and awake HENMT Head: normal to inspection Ears: hearing grossly normal bilaterally, external ears normal and TM's normal bilaterally General nose exam: external nose normal Face and sinus: normal facial exam Mouth: mucous membranes dry Teeth and gingiva: dentition normal Throat: posterior oropharynx normal Eyes General: appearance normal, both eyes and all related structures Eyelids: eyelids normal Pupils: PERRL EOM: EOM intact bilaterally Neck Neck: normal visual inspection Lymphatic: no lymphadenopathy noted Chest Chest: normal inspection of the chest Resp Effort & Inspection: normal respiratory effort and able to speak in complete sentences Auscultation: clear to auscultation bilaterally Cardio Rate: regular rate Rhythm: regular rhythm GI Inspection: normal to inspection Palpation: soft, not firm, no guarding, no hepatosplenomegaly, no masses and nontender Auscultation: normal bowel sounds Back/Spine/Pelvis Back: no CVA tenderness Skin General skin exam: no rashes or lesions noted Neuro General: moves all extremities, no meningeal signs, no focal motor deficits and other (drowsy but arousable to voice) Cognition: normal cognition Speech: speech normal Motor: muscle tone normal throughout Sensory Exam: no sensory deficits noted Extrem General: normal to inspection, full ROM and capillary refill normal Psych Appearance: grossly normal Mental Status: mental status grossly normal Speech and Movement: speech and movement normal Affect: normal affect Thought Process: normal
[2021-07-19] MEDS: Normal Saline 1,000 ML 1000 ML IV (14:10)
[2021-07-19 14:20] LABS: Source Nasal/Nares
[2021-07-19 14:24] LABS: Abs Immature Grans 0.02 10^3/uL (0.0-0.06); Absolute Basophil Count 0.05 10^3/uL (0.0-0.2); Absolute Eosinophil Count 0.13 10^3/uL (0.0-0.7); Absolute Lymphocyte Count 0.97 10^3/uL (1.2-3.4); Absolute Monocyte Count 0.66 10^3/uL (0.1-0.8); Absolute Neutrophil Count 4.82 10^3/uL (1.2-6.7); Basophils % 0.8; HGB 15.7 g/dL (13.5-17.5); Immature Grans % 0.3; Lymphocytes % 14.6; MCH 31.6 pg (27.0-33.0); MCHC 33.4 % (32.0-36.0); MCV 94.6 fL (80-95); MPV 11.4 fL (8.0-11.0); Monocytes % 9.9; Neutrophils % 72.4; Nucleated RBC 0 %; Platelet Count 137 10^3/uL (130-400); RBC 4.97 10^6/uL (4.36-5.78); RDW 12.5 % (11.8-14.1); RDW-SD 43.6 fL; WBC 6.65 10^3/uL (4.4-10.8)
[2021-07-19 14:30] LABS: Bilirubin Negative (Negative); Blood Negative (Negative); Clarity Clear (Clear); Glucose Negative (Negative); Ketones Trace mg/dL (Negative); Leukocyte Esterase Negative (Negative); Nitrite Negative (Negative); Specific Gravity >= 1.030 (1.005-1.025); Urobilinogen 0.2 EU/dL (Up TO 0.2); pH 5.5 (5-8)
[2021-07-19 14:38] LABS: ALT 20 U/L (16-63); AST 14 U/L (15-37); Albumin 3.2 g/dL (3.4-5.0); Alkaline Phosphatase 58 U/L (46-116); Anion Gap 4.7 mmol/L (3-11); BUN 12 mg/dL (7-18); Bilirubin, Total 0.2 mg/dL (0.2-1.0); CO2 30.3 mmol/L (21.0-32.0); CREATININE 1.1 mg/dL (0.70-1.30); Calcium 8.4 mg/dL (8.5-10.1); Chloride 109 mmol/L (98-107); Glucose 90 mg/dL (74-106); Magnesium 2.1 mg/dL (1.8-2.4); Potassium 4.2 mmol/L (3.5-5.1); Sodium 144 mmol/L (136-145); Total Protein 6.1 g/dL (6.4-8.2)
[2021-07-19 14:45] LABS: *AMPHETAMINES SCREEN URINE Negative (Negative); *BARBITURATES SCREEN URINE Negative (Negative); *BENZODIAZEPINES SCREEN URINE Positive (Negative); Cannabinoids THC Negative (Negative); Cocaine Screen,Urine Negative (Negative); METHADONE URINE SCREEN Negative (Negative); OPIATES URINE SCREEN Positive (Negative)
[2021-07-19 14:46] LABS: Tricyclic Antidepressants Positive (Negative)
[2021-07-19 14:47] LABS: ETHANOL BLOOD < 3.0 mg/dL (<3); Troponin I < 0.05 ng/mL (<0.06)
[2021-07-19 14:50] LABS: Acetaminophen 13 ug/mL (10-30); Salicylate 5.5 mg/dL (<2.8)
--- NOTE | 2021-07-19 14:51 | DI.CT_ITS ---
Exam(s) CT HEAD CERVICAL SPINE WO EXAM: CT HEAD CERVICAL SPINE WO CLINICAL HISTORY: unresponsive, r/o acute disease. TECHNIQUE: Imaging Protocol: Axial computed tomography images with coronal and sagittal reformatted images were created and reviewed COMPARISON: CT CT HEAD WO from 06/09/2021 CR,XR XR CHEST 2V PA LATERAL from 07/19/2021 CR,XR XR CHEST 2V PA LATERAL from 07/19/2021 FINDINGS: BRAIN: There are no skull fractures nor fluid in the visualized paranasal sinuses. There is no evidence of intracranial hemorrhage, mass effect, or shift of midline structures. There are no extra-axial fluid collections. The ventricles are not enlarged or shifted and there is no blo od within the ventricular system nor within the basal cisterns. CERVICAL SPINE: There is no evidence of fracture nor listhesis. No significant prevertebral soft tissue swelling. Chronic-type disc space narrowing at C6-7 is noted. There is no significant facet joint malalignment. No significant osseous lesions evident. The lower most images of this neck study reveal absence of lung markings in the apices of the lung fi elds which is either due to bullae or pneumothorax. IMPRESSION: No acute intracranial findings on this noninfused CT scan of the brain. No evidence of cervical spine fracture, malalignment, nor acute compromise of the cervical spinal can al. Absence of lung markings in the apical lung chand bilaterally implies presence of large bullae or pn eumothorax. Recommend chest x-ray. RADIATION DOSE DELIVERED: 1,566.92mGy.cm Total DLP DATA REPOSITORY: All CT scans at this facility are submitted to the National Radiology Data Registry (NRDR) Dose Index Registry (DIR) with the [employer] [place] ([employer]). RADIATION OPTIMIZATION: All CT scans at this facility use at least one of these dose optimization te chniques: automated exposure control; mA and/or kV adjustment per patient size (includes targeted exa ms where dose is matched to clinical indication); or iterative reconstruction.
--- NOTE | 2021-07-19 14:59 | DI.RAD_ITS ---
Exam(s) XR CHEST 2V PA LATERAL EXAM: XR CHEST 2V PA LATERAL CLINICAL HISTORY: unresponsive, r/o acute disease. TECHNIQUE: 2D digital imaging was performed. COMPARISON: CR,XR XR CHEST 2V PA LATERAL from 06/09/2021 FINDINGS: Bipolar left subclavian pacemaker again noted with lead tips in are in RV. Left lung is clear. Subtle 1.5 cm diameter round density over the right mid lung field, possibly kym st leads. However, no leg joint wires evident. No confluent infiltrates nor pleural effusions. No pulmonary edema. IMPRESSION: Cardiac pacemaker. No pulmonary edema. No pleural effusions. 1.5 cm subtle nodular density right lung field noted. This is projected over the inferior aspect of the right scapula. Recommend nonportable PA and lateral views when clinically possible. DATA REPOSITORY: RADIATION DOSE DELIVERED:
[2021-07-19 15:14] LABS: COVID-19 PCR Negative (Negative)
[2021-07-19] MEDS: Naloxone 0.4 MG/ML VIAL IVP (15:17)
[2021-07-19 15:32] LABS: Creatine Kinase 41 U/L (39-308)
--- NOTE | 2021-07-19 15:43 | DI.VRAD_ITS ---
Addendum created by Deepthi Raymundo MD on 07/19/2021 3:51:59 PM EDT: THIS REPORT CONTAINS FINDINGS THAT MAY BE CRITICAL TO PATIENT CARE. The findings were verbally communicated via telephone conference with Dr Smart at 3:51 PM EDT on 07/19/2021. The findings were acknowledged and understood. Initial report created on 07/19/2021 3:43:14 PM EDT: PROCEDURE INFORMATION: Exam: CT Head Without Contrast Exam date and time: 07/19/2021 2:10 PM Age: 55 years old Clinical indication: Alteration of consciousness; Other: Unresponsive TECHNIQUE: Imaging protocol: Computed tomography of the head without contrast. Radiation optimization: All CT scans at this facility use at least one of these dose optimization techniques: automated exposure control; mA and/or kV adjustment per patient size (includes targeted exams where dose is matched to clinical indication); or iterative reconstruction. COMPARISON: CT HEAD WO 06/09/2021 4:00 PM FINDINGS: Brain: No acute intracranial hemorrhage.. There is mild diffuse heterogeneity of the white matter attenuation, consistent with chronic white matter ischemic changes. Mild cerebral atrophy Cerebral ventricles: No ventriculomegaly. Paranasal sinuses: Visualized sinuses are unremarkable. No fluid levels. Mastoid air cells: Visualized mastoid air cells are well aerated. Bones/joints: Unremarkable. No acute fracture. Soft tissues: Unremarkable. IMPRESSION: No acute intracranial hemorrhage.. PROCEDURE INFORMATION: Exam: CT Cervical Spine Without Contrast Exam date and time: 07/19/2021 2:10 PM Age: 55 years old Clinical indication: Alteration of consciousness; Other: Unresponsive TECHNIQUE: Imaging protocol: Computed tomography images of the cervical spine without contrast. Radiation optimization: All CT scans at this facility use at least one of these dose optimization techniques: automated exposure control; mA and/or kV adjustment per patient size (includes targeted exams where dose is matched to clinical indication); or iterative reconstruction. COMPARISON: CT HEAD WO 06/09/2021 4:00 PM FINDINGS: Bones/joints: No acute fracture of the cervical spine. No subluxation or dislocation of the cervical spine. Anterior osteophyte formation C6/C7. Degenerative changes in the facets at multiple levels Discs/Spinal canal/Neural foramina: Intervertebral disc space narrowing C6/C7 may represent degenerative disc disease.. Posterior osteophyte formation C6/C7. Degenerative changes at C1/C2 Thyroid: The thyroid is unremarkable Lungs: Emphysematous changes in the right apex Pleural spaces: No lung markings in the apex of the left lung may indicate large bulla versus pneumothorax.. Soft tissues: Unremarkable. IMPRESSION: 1. No acute fracture of the cervical spine. 2. No subluxation or dislocation of the cervical spine. 3. Intervertebral disc space narrowing C6/C7 may represent degenerative disc disease.. 4. No lung markings in the apex of the left lung may indicate large bulla versus pneumothorax.. Dictated and Authenticated by: Deepthi Raymundo MD. Ordering:THERON Saini MD
--- NOTE | 2021-07-19 15:45 | DI.VRAD_ITS ---
PROCEDURE INFORMATION: Exam: XR Chest Exam date and time: 07/19/2021 2:10 PM Age: 55 years old Clinical indication: Other: Unresponsive TECHNIQUE: Imaging protocol: XR of the chest. Views: 2 views. COMPARISON: CR XR CHEST 2V PA LATERAL 06/09/2021 4:05 PM FINDINGS: Tubes, catheters and devices: Pacemaker device present, and leads appear to be in appropriate position. Lungs: Unremarkable. No consolidation. Pleural spaces: Unremarkable. No pleural effusion. No pneumothorax. Heart/Mediastinum: Unremarkable. No cardiomegaly. Bones/joints: Unremarkable. IMPRESSION: No acute abnormality identified. Dictated and Authenticated by: Hao Pappas MD. Ordering:THERON Saini MD
[2021-07-19 20:06] LABS: BE (Venous) 3 mmol/L (-2-3); HCO3 (Venous) 28 mmol/L (23-28); O2 Sat (Venous) 66 %; TCO2 (Venous) 25 mmol/L (24-29); pCO2 (Venous) 51 mmHg (41-51); pH (Venous) 7.36 (7.31-7.41); pO2 (Venous) 33 mmHg
[2021-07-19] MEDS: Enoxaparin 40 MG/0.4 ML SYR SC (21:49)
[2021-07-19] MEDS: Albuterol/Ipratropium 3 ML UPD VIAL UPD (21:49)
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
[2021-07-20] VITALS (13 sets, daily range): BP systolic 126–154; BP diastolic 71–90; PULSE 83–104; RESP 4–20; TEMP 36.4–37; O2SAT 91–99
[2021-07-20 00:33] LABS: Creatine Kinase 45 U/L (39-308)
[2021-07-20 00:38] LABS: Troponin I < 0.05 ng/mL (<0.06)
[2021-07-20] MEDS: Gabapentin 400 MG CAP PO (00:38)
[2021-07-20] MEDS: clonazePAM 1 MG TAB PO (00:38)
[2021-07-20] MEDS: Acetaminophen 325 MG TAB PO (00:38)
[2021-07-20] MEDS: Albuterol/Ipratropium 3 ML UPD VIAL UPD ×4 (02:35→20:54)
[2021-07-20 07:32] LABS: Abs Immature Grans 0.02 10^3/uL (0.0-0.06); Absolute Basophil Count 0.04 10^3/uL (0.0-0.2); Absolute Lymphocyte Count 1.14 10^3/uL (1.2-3.4); Absolute Monocyte Count 0.44 10^3/uL (0.1-0.8); Absolute Neutrophil Count 4.07 10^3/uL (1.2-6.7); Basophils % 0.7; Eosinophils % 1.7; HCT 48.9 % (40.0-50.0); HGB 16.7 g/dL (13.5-17.5); Immature Grans % 0.3; Lymphocytes % 19.6; MCH 31.4 pg (27.0-33.0); MCHC 34.2 % (32.0-36.0); MCV 91.9 fL (80-95); MPV 11.8 fL (8.0-11.0); Monocytes % 7.6; Neutrophils % 70.1; Nucleated RBC 0 %; Platelet Count 145 10^3/uL (130-400); RBC 5.32 10^6/uL (4.36-5.78); RDW 12.7 % (11.8-14.1); RDW-SD 42.9 fL; WBC 5.81 10^3/uL (4.4-10.8)
[2021-07-20 07:40] LABS: Anion Gap 6.8 mmol/L (3-11); BUN 11 mg/dL (7-18); CO2 29.2 mmol/L (21.0-32.0); CREATININE 0.9 mg/dL (0.70-1.30); Calcium 8.7 mg/dL (8.5-10.1); Chloride 109 mmol/L (98-107); Glucose 150 mg/dL (74-106); Sodium 145 mmol/L (136-145)
--- NOTE | 2021-07-20 08:19 | INITIAL_ITS ---
- If Service Date Differs Date of service: 07/20/21 Time of Service: 08:19 Care Management Initial Assess REASON FOR HOSPITALIZATION:: Encephalopathy PAST MEDICAL HISTORY/PAST SURGICAL HISTORY:: Medical History. Acquired deformity of left hand. Agoraphobia. Anxiety. Anxiety with depression. Arthritis. Biventricular implantable cardioverter-defibrillator (ICD) in situ. Mode:DDD, Low rate 60bpm, Atrial lead: medtronic 5076, SN: [id number] 09/27/14; R V lead Medtronic 6935M SN: [id number] 09/27/14; LV lead Medtronic 4396, SN; TRACIE [id number] 09/27/14 (updated 03/11/20). BPH (benign prostatic hyperplasia). Cardiomyopathy. Chest pain. CHF (congestive heart failure). Chronic pain syndrome. Cognitive impairment. Cyst. Depression. Diabetes. Diarrhea. Dizziness. Erectile dysfunction. Fatigue. Hallucination. Hand paresthesia. Heart disease. History of alcohol abuse. History of suicidal ideation. History of tobacco abuse. Hyperlipidemia. Impacted ear wax. LBBB (left bundle branch block). Lung disease. Metacarpophalangeal joint pain. Nonischemic dilated cardiomyopathy. Pacemaker. Pain in right hip. Panic anxiety syndrome. PTSD (post-traumatic stress disorder). Severe chronic obstructive pulmonary disease. Skin lesion. Systolic and diastolic CHF, chronic. Tobacco use. Surgical History . Status post biventricular pacemaker. Family History . Mother , 2008. COPD (chronic obstructive pulmonary disease) PREVIOUS FUNCTIONAL STATUS/SOCIAL/FAMILY SUPPORTS:: William lives alone in a two story house in [place]. He is disabled and spends his time fishing, hunting, and woodworking. William reports he is independent with his ADLs and drives. CURRENT FUNCTIONAL STATUS:: William was lying in bed with the TV off when CM met with him. He advises that he is doing ok today and did not make eye contact. ADVANCE DIRECTIVES:: None on file Has patient been provided with info about the portal/API?: Yes Did the patient sign up for the portal?: No CODE STATUS:: Full Code INSURANCE COVERAGE / FINANCIAL ISSUES:: [facility] CURRENT HOME/COMMUNITY SERVICES/EQUIPMENT:: William is a [employer] client through [facility]. PRIMARY CARE PHYSICIAN:: Lorrie Crespo POTENTIAL DISCHARGE NEEDS:: Evaluations for further needs, follow up appointments. PATIENT/FAMILY EDUCATION NEEDS:: Review discharge instructions, discussion of self care needs including ask me three and goals of care. TRANSPORTATION:: Via RCT vs. private vehicle with friend PLAN:: Anticipate William will return home once medically cleared by MD. He will be driven home via RCT vs private vehicle with a friend. He will follow up with his PCP and discharge plan of care. CM will continue to follow.
--- NOTE | 2021-07-20 11:33 | PT.INIE ---
PT Notes Visit Reasons: Encephalopathy Inpatient Physical Therapy Evaluation Date: 07/20/21 Referring Doctor: Dr. Lynne PT Orders: PT CONSULT: limited ability to ambulate Precautions: fall, standard Patient Profile/Admitting Diagnosis: Patient admitted 07/19/2021 after being found unresponsive at home by an [employer] worker. Admitted for altered mental status and failure to thrive. PMHX: Acquired deformity of left hand Agoraphobia Anxiety Anxiety with depression Arthritis Biventricular implantable cardioverter-defibrillator (ICD) in situ Mode:DDD, Low rate 60bpm, Atrial lead: medtronic 5076, SN: [id number] 09/27/14; RV lead Medtronic 6935M SN: [id number] 09/27/14; LV lead Medtronic 4396, SN; TRACIE [id number] 09/27/14 (updated 03/11/20) BPH (benign prostatic hyperplasia) Cardiomyopathy Chest pain CHF (congestive heart failure) Chronic pain syndrome Cognitive impairment Cyst Depression Diabetes Diarrhea Dizziness Erectile dysfunction Fatigue Hallucination Hand paresthesia Heart disease History of alcohol abuse History of suicidal ideation History of tobacco abuse Hyperlipidemia Impacted ear wax LBBB (left bundle branch block) Lung disease Metacarpophalangeal joint pain Nonischemic dilated cardiomyopathy Pacemaker Pain in right hip Panic anxiety syndrome PTSD (post-traumatic stress disorder) Severe chronic obstructive pulmonary disease Skin lesion Systolic and diastolic CHF, chronic Tobacco use Surgical History Status post biventricular pacemaker Social History/Home Situation: Patient lives alone in a two-level home with no steps to enter. He receives assistance from [employer], for in his home multiple times per day. He is disabled and no longer working. States that he was issued a walker, which he has been using, until it came up missing. Denies utilization of supplemental oxygen at home. Equipment Owned/DME: Unknown Subjective: William initially declines PT consultation this morning. I checked in with him a couple of hours later, and he is agreeable to walking. States that he feels terrible, although unable to provide more specifics on this. Denies pain at initiation of session. Objective: General Observation: Resting in bed in initiation of session. Mental Status: A&O. He understands that he is in the hospital, although states that he cannot remember any of the specifics that brought him here. Patient demonstrates impulsive behaviors, getting up out of bed quickly and moving about the room without FWW multiple times, despite cues to utilize FW W for ambulation. Pain: Low back pain with ambulation ROM: Right Upper Extremity: WFL Left Upper Extremity: WFL Right Lower Extremity: WFL Left Lower Extremity: WFL Strength: Right Upper Extremity: Shoulder flexion 4/5. Biceps 4+/5. Triceps 4 -/5. Sales Representative [employer]elry is weak, but equal. Left Upper Extremity: Shoulder flexion 4/5. Biceps 4+/5. Triceps 4 -/5. Sales Representative Jewelry is weak, but equal. Right Lower Extremity: Hip flexion 4/5. Quads 4+/5. Ankle dorsiflexion 5/5. Left Lower Extremity: Hip flexion 4/5. Quads 4+/5. Ankle dorsiflexion 4/5. Neuro: Coordination is diminished with rapid alternating movements of both the upper and lower extremities. Fine motor is diminished with thumb to digit tapping. Patient demonstrates tremor of the upper extremities left greater than right. Bed Mobility/Transfers: Supine?sit: Independent Sit?supine: Independent Sit?stand: Supervision stand?sit: Supervision Bed to chair: Patient completes this transfer several times during evaluation, despite cues to remain seated or utilize FW W. He demonstrates impulsive behaviors and decreased safety awareness, relying upon support of furniture during ambulation. Gait: Patient ambulates 150 feet with FW W, CGA. Demonstrates mild path deviation. Balance: Static Sitting: Normal Dynamic Sitting: Normal Static Standing: Fair Dynamic Standing: Fair 4 position balance test: 10/28 (75% impairment) Romberg test: Positive with posterior drift Special Tests: Mobility Limitations Standardized Measure [facility] AM-PAC 6 clicks Basic Mobility Inpatient Short Form: Raw Score: 21 CMS Score: 29% impairment Informed Consent/Education: Patient instructed in purpose of PT consult and plan of care. Treatment: The session consisted of evaluation, followed by instruction in early balance retraining activities, as noted on flowsheet. At end of session, patient was seated to chair, with chair alarm in place and nursing alerted. Assessment: Patient is a 55 year old male referred to physical therapy services with the diagnosis of altered mental status. Patient presents with clinical signs and symptoms consistent with diminished functional mobility related to acute medical issues, as demonstrated by the following impairment level findings: 1. Decreased balance 2. Decreased safety awareness 3. Decreased lower extremity strength 4. Decreased upper extremity strength 5. Decreased coordination 6. Gait impairments Impairments are contributing to the following functional limitations: 1. Decreased safety with household distance ambulation 2. Decreased safety awareness, increasing patient's fall risk 3. Limited compliance with use of assistive device, increasing fall risk 4. Decreased safety with transfers Patient is assessed as Moderate 51661 complexity based on the following: History: Patient is a 55-year-old male admitted for altered mental status, and presenting with significant limitations in functional mobility. He demonstrates limited safety awareness today and impulsive behaviors, significantly increasing his fall risk. He requires skilled PT intervention to maximize safety and allow for safe transition home with services once medically stable. Examination: Functional imitations as noted above Presentation: Evolving Decision Making: Moderate complexity Goals: Goals X1 week 1. Supine-Sit: Independent 2. Sit-Supine: Independent 3. Sit-Stand: Independent 4. Stand-Sit: Independent 5. Bed-Chair: Independent with use of FW W 6. Chair-Bed: Independent with the use of FW W 7. Gait: Supervision x200 feet with FW W 8. Stairs: Supervision on therapeutic stairs x5 9. Independent with home exercise program Plan of Care/Treatment Plan: 1-2x/day, 7 days/week x 1 week. Plan of care has been reviewed with the ELECTRICAL ENGINEER MEP providing the service under Physical Therapy direction. Initiate Physical Therapy intervention for strengthening, bed mobility, transfers, gait, stairs, balance training, use of assistive device. DISCHARGE RECOMMENDATIONS: Home with continued services TREATMENT CODE/TIME: 11:00?1125 (07180) Malgorzata Coyne, PT, DPT [facility]
--- NOTE | 2021-07-20 14:56 | W.PM.PROGNOT ---
Date of Service Date of service: 07/20/21 Time of Service: 14:56 Assessment and Plan Assessment and plan (1) Altered mental status: Status: Acute Assessment and plan: Likely he overdosed on his medication as he has done this before when not monitored when taking them He has come around today. In pain. Meds have been reconciled so he can receive them. He is not quite himself yet though he is in alot of pain which could be why, Will keep another night and reevaluate. His trops were negative, labs unremarkable, mag 2.0 Unable to interrogate AICD. Last echo in February, he can have one as an outpatient HR RRR will d/c teley, echo, Monitor overnight and possibly d/c in am (2) Nonischemic dilated cardiomyopathy: Start date: 07/20/21 Start time: 15:12 Status: Chronic Assessment and plan: Euvolemic. Continue outpatient therapy once we verify medications. (3) Biventricular implantable cardioverter-defibrillator (ICD) in situ: Start date: 07/20/21 Start time: 15:12 Status: Chronic Assessment and plan: The patient does not think this has fired today. No need to interrogate, unable to at this time and no indication for interrogation (4) Cognitive impairment: Start date: 07/20/21 Start time: 15:13 Status: Chronic Assessment and plan: The patient does have a psychiatric history. . Medications come in blister pack reconciled. (5) COPD (chronic obstructive pulmonary disease): Start date: 07/20/21 Start time: 15:13 Status: Chronic Assessment and plan: At baseline. Provide home nebulizer treatments Qualifiers: COPD type: unspecified COPD Qualified Code(s): J44.9 - Chronic obstructive pulmonary disease, unspecified (6) Ambulatory dysfunction: Start date: 07/20/21 Start time: 15:14 Status: Chronic Assessment and plan: PT consult. Supposed to ambulate with a walker at home (7) DVT prophylaxis: Start date: 07/20/21 Start time: 15:14 Status: Acute Assessment and plan: lovenox sc (8) Discharge planning issues: Start date: 07/20/21 Start time: 15:14 Status: Acute Assessment and plan: Full code discussed with Dr. Cruz Subjective Subjective Patient reports: other Interval history since last seen: Still seems a little out of sorts, this could be due to pain, as nothing was ordered. Meds reconciled. Will monitor overnight and possibly discharge in am. He is also complaining of nausea. compazine. Exam Narrative Exam Narrative: General: Pleasant middle-aged male who is A&Ox2, in a lot of pain. Medication reconciled. Neurological: A&Ox2, able to speak in complete sentences. Does have some memory issues. Psychiatric: in pain, but otherwise cooperative/compliant, does not appear to be actively hallucinating at time of exam Skin: Visible skin intact HEENT: Atraumatic, normocephalic, EOMI, MMM, clear oropharynx, no submandibular or cervical lymphadenopathy, no goiter or JVD Cardiovascular: RRR, no m/r/g Lungs: CTAB/diminished breath sounds B Gastrointestinal: soft, nontender, nondistended Extremities: no edema BLE's, 1+ pedal pulses Objective Last Vital Signs Temp 37.0 C 07/20/21 10:44 Pulse 88 07/20/21 10:44 Resp 19 07/20/21 10:44 BP 137/80 07/20/21 10:44 Pulse Ox 95 07/20/21 10:44 Laboratory Results - last 24 hr 07/19/21 07/19/21 07/19/21 14:10 14:14 19:58 WBC RBC Hgb Hct MCV MCH MCHC RDW Plt Count MPV Immature Gran % Neutrophils % Lymphocytes % Monocytes % Eosinophils % Basophils % Nucleated RBC % Absolute Neutrophils Absolute Lymphocytes Absolute Monocytes Absolute Eosinophils Absolute Basophils VBG pH 7.36 VBG pCO2 51 VBG pO2 33 VBG HCO3 28 VBG Total CO2 25 VBG O2 Saturation 66 VBG Base Excess 3 Sodium Potassium Chloride Carbon Dioxide Anion Gap BUN Creatinine Estimated GFR/1.73 m2 Glucose Calcium Magnesium Creatine Kinase 41 Troponin I SARS-CoV-2 (PCR) Negative 07/20/21 07/20/21 07/20/21 00:10 00:10 06:43 WBC RBC Hgb Hct MCV MCH MCHC RDW Plt Count MPV Immature Gran % Neutrophils % Lymphocytes % Monocytes % Eosinophils % Basophils % Nucleated RBC % Absolute Neutrophils Absolute Lymphocytes Absolute Monocytes Absolute Eosinophils Absolute Basophils VBG pH VBG pCO2 VBG pO2 VBG HCO3 VBG Total CO2 VBG O2 Saturation VBG Base Excess Sodium 145 Potassium 4.0 Chloride 109 H Carbon Dioxide 29.2 Anion Gap 6.8 BUN 11 Creatinine 0.9 Estimated GFR/1.73 m2 >= 60.00 Glucose 150 H Calcium 8.7 Magnesium 2.0 Creatine Kinase 45 Troponin I < 0.05 SARS-CoV-2 (PCR) 07/20/21 06:43 WBC 5.81 RBC 5.32 Hgb 16.7 Hct 48.9 MCV 91.9 MCH 31.4 MCHC 34.2 RDW 12.7 Plt Count 145 MPV 11.8 H Immature Gran % 0.3 Neutrophils % 70.1 Lymphocytes % 19.6 Monocytes % 7.6 Eosinophils % 1.7 Basophils % 0.7 Nucleated RBC % 0 Absolute Neutrophils 4.07 Absolute Lymphocytes 1.14 L Absolute Monocytes 0.44 Absolute Eosinophils 0.10 Absolute Basophils 0.04 VBG pH VBG pCO2 VBG pO2 VBG HCO3 VBG Total CO2 VBG O2 Saturation VBG Base Excess Sodium Potassium Chloride Carbon Dioxide Anion Gap BUN Creatinine Estimated GFR/1.73 m2 Glucose Calcium Magnesium Creatine Kinase Troponin I SARS-CoV-2 (PCR)
[2021-07-20] MEDS: HYDROcodone 5/Acetaminophen 325 TAB PO (15:43)
[2021-07-20] MEDS: Gabapentin 800 MG TAB PO ×2 (15:54→20:56)
[2021-07-20] MEDS: clonazePAM 1 MG TAB 2 MG PO (20:56)
[2021-07-20] MEDS: Budesonide/Formoterol 160/4.5 6 GM 60 PUFF INH IH (23:07)
[2021-07-20] MEDS: Enoxaparin 40 MG/0.4 ML SYR SC (23:08)
[2021-07-20] MEDS: Amitriptyline 25 MG TAB 50 MG PO (23:09)
[2021-07-20] MEDS: Pravastatin 20 MG TAB PO (23:09)
[2021-07-20] MEDS: QUEtiapine 100 MG TAB 500 MG PO (23:09)
[2021-07-21] VITALS (7 sets, daily range): BP systolic 74–108; BP diastolic 47–69; PULSE 56–120; RESP 2–20; TEMP 36.3–36.8; O2SAT 88–93
[2021-07-21] MEDS: Albuterol/Ipratropium 3 ML UPD VIAL UPD (02:53)
[2021-07-21] MEDS: Normal Saline Flush 10 ML SYR IVP ×2 (06:01→08:38)
[2021-07-21] MEDS: Tiotropium Bromide-Respimat 10 PUFF INH IH (08:14)
[2021-07-21] MEDS: Budesonide/Formoterol 160/4.5 6 GM 60 PUFF INH IH (08:15)
[2021-07-21] MEDS: buPROPion-XL 150 MG TABCR 450 MG PO (08:31)
[2021-07-21] MEDS: Gabapentin 800 MG TAB PO (08:31)
[2021-07-21] MEDS: Pantoprazole 40 MG TABCR PO (08:31)
[2021-07-21] MEDS: Montelukast 10 MG TAB PO (08:31)
[2021-07-21] MEDS: clonazePAM 1 MG TAB 2 MG PO (08:31)
[2021-07-21] MEDS: HYDROcodone 5/Acetaminophen 325 TAB PO (08:38)
[2021-07-21] MEDS: Gabapentin 600 MG TAB PO (13:52)
[2021-07-21] MEDS: Albuterol 2.5 MG/3 ML INH SOLN VIAL UPD (14:43)
--- NOTE | 2021-07-21 14:49 | W.PM.DS.N ---
Date of service: 07/21/21 Time of Service: 14:49 DS: Diagnosis Discharge Diagnosis (1) Altered mental status: Start date: 07/21/21 Start time: 14:50 Status: Acute Asessment and Plan: Due to overmedication. His med list was not correct. Gabapentin was suppose to be 600 TID, amitripyline 25 mg and clonipin BID, meds verified by our pharmacist and switched in computer to match right dosing amounts. He states he wakes up on the floor alot, likely d/t over medication. He slept all day after restarting meds. Just woke up. This indicates that he is on too many meds with too high dosing, recommend weaning down medications (2) Nonischemic dilated cardiomyopathy: Start date: 07/21/21 Start time: 15:03 Status: Chronic Asessment and Plan: Euvolemic. Continue outpatient therapy once we verify medications. (3) Biventricular implantable cardioverter-defibrillator (ICD) in situ: Start date: 07/21/21 Start time: 15:04 Status: Chronic Asessment and Plan: The patient does not think this has fired today. No need to interrogate, unable to at this time and no indication for interrogation (4) Cognitive impairment: Start date: 07/21/21 Start time: 15:04 Status: Chronic Asessment and Plan: The patient does have a psychiatric history. . Medications come in blister pack, will need to be changed based on discharged list from today, as above (5) COPD (chronic obstructive pulmonary disease): Start date: 07/21/21 Start time: 15:05 Status: Chronic Asessment and Plan: At baseline. Provide home nebulizer treatments (6) Ambulatory dysfunction: Start date: 07/21/21 Start time: 15:05 Status: Chronic Asessment and Plan: ambulatory with PT, suppose to walk with a walker discussed with Dr. norton Discharge Plan Disposition Patient Disposition: HOME Condition: Stable Discharge Details Reason For Visit: Encephalopathy Admit Date/Time: 07/19/21 19:39 Admit Provider: Lore Lynne Attending Provider: Lore Lynne Primary Care Provider: Lorrie Crespo Hospital Course Hospital Course: 55 y.o male admitted to [facility] after being found down. EMS called. Labs in the ED unremarkable. EKG unchanged. He stated he remembered someone calling EMS and finding him but does not remember being in the ED. On the floor he started to wake up when evaluated by evening provider. He gets his medication in blister packs. He does have an AICD, but stated it did not fire. trop, negative. He has been overmedicated after having pharmacy review his medication list he was not on the right dosing of amitryptiline, gabapentin or klonipin. He also stated he often wakes up on the floor. So he should really be weaned down on his medication. He is taking a lot of high dose sedating medications. Today he is at baseline mentation. He was given all his thought to be normal medications yesterday and slept all night until this afternoon at 130 when woken up staff and states still tired. His med list has been fixed by pharmacy, SERVER ENGINEER will have to be notified to his blister packs will reflect correct dosing of medications. He has not had an echo in over a year this will be ordered as an outpatient. He is being discharged home. Home Meds and New Rx's Prescriptions: New clonazepam 1 mg Tablet 1 mg PO BID Qty: 40 RF: 0 Continued nitroglycerin 0.4 MG tablet, sublingual 0.4 mg Sublingual one every 5 mins. x3 Qty: 30 RF: 3 quetiapine [Seroquel] 400 mg tablet 400 mg PO HS RF: 0 fluticasone propion-salmeterol [Advair Diskus] 250-50 mcg/dose blister with device 1 inh inhalation BID RF: 0 hydrocodone-acetaminophen 5-325 mg tablet 1 tab PO TID PRN PRN (Reason: Pain) RF: 0 amitriptyline 25 mg tablet 25 mg PO QHS RF: 0 acetaminophen 325 mg capsule 325 mg PO TID PRN PRN (Reason: Pain) RF: 0 montelukast 10 mg tablet 10 mg PO DAILY RF: 0 benztropine 1 mg tablet 1 mg PO HS Qty: 0 RF: 0 bupropion HCl 300 mg tablet extended release 24 hr 300 mg PO QAM Qty: 10 RF: 0 pravastatin 20 mg tablet 20 mg PO QHS Qty: 10 RF: 0 bupropion HCl 150 mg tablet extended release 24 hr 150 mg PO QAM RF: 0 ipratropium-albuterol 0.5 mg-3 mg(2.5 mg base)/3 mL solution for nebulization 3 ml IH Q6H Qty: 90 RF: 0 quetiapine 100 mg Tablet 100 mg PO QHS RF: 0 pantoprazole 40 mg Tablet,Delayed Release (Dr/Ec) 40 mg PO DAILY@0730 Qty: 30 RF: 0 albuterol sulfate 1.25 mg/3 mL solution for nebulization 1.25 mg inhalation QID PRN (Reason: shortness of breath or wheezing) Qty: 90 RF: 0 clonazepam 1 mg tablet 1 mg PO BID RF: 0 gabapentin 600 mg Tablet 600 mg PO TID RF: 0 Trintellix 20 mg tablet 20 mg PO DAILY RF: 0 Spiriva Respimat 1.25 mcg/actuation mist 2 puff inhalation DAILY Qty: 4 RF: 0 No Action amoxicillin-pot clavulanate [Augmentin] 875-125 mg tablet 1 tab PO BID Qty: 7 RF: 0 Discharge Instructions Instructions: Altered Mental Status (ED), Prescription Narcotic Overdose (DC) Additional Instructions: Take blister pack of medications only Follow up for outpatient echo, they will call with time and date Stand Alone Forms: Nursing Discharge Form Referrals: Lorrie Crespo [Primary Care Provider] - 07/31/21 11:45 am Activity:: Activity as Tolerated Equipment/Supplies:: No Equipment Needed Diet:: Low Sodium Discharge Orders Discharge Orders: Discharge Order (Routine); Ordered 07/21/21 Ordered By: Brittany Dickey Other Ambulatory Orders: US echocardiogram (Routine) Location: None Selected Ordered By: Brittany Dickey DS: Summary Time Spent with Patient providing and/or coordinating discharge services: Less than 30 minutes Status at Discharge Functional status at discharge: uses cane/walker Overall status at discharge: patient is back to baseline Mental Status: other Speech and Movement: speech and movement normal Mood: congruent mood and other Affect: blunted Exam Narrative Exam Narrative: General: Pleasant middle-aged male who is A&Ox2, in a lot of pain. Medication reconciled. Neurological: A&Ox2, able to speak in complete sentences. Does have some memory issues. Psychiatric: in pain, but otherwise cooperative/compliant, does not appear to be actively hallucinating at time of exam Skin: Visible skin intact HEENT: Atraumatic, normocephalic, EOMI, MMM, clear oropharynx, no submandibular or cervical lymphadenopathy, no goiter or JVD Cardiovascular: RRR, no m/r/g Lungs: CTAB/diminished breath sounds B Gastrointestinal: soft, nontender, nondistended Extremities: no edema BLE's, 1+ pedal pulses Psych Mental Status: other Speech and Movement: speech and movement normal Mood: congruent mood and other Affect: blunted DS: Data Vitals/I&O Vitals and I&O: Vital Signs Temperature 36.4 C L 07/21/21 14:44 Temperature Source Tympanic 07/21/21 14:44 Pulse 120 H 07/21/21 14:44 Pulse Rhythm Regular 07/21/21 08:41 Pulse 92 H 07/19/21 19:40 Respiratory Rate 20 07/21/21 14:44 Respiratory Effort Non-Labored 07/21/21 08:41 Respiratory Depth Normal 07/21/21 08:41 Respiratory Pattern Normal 07/21/21 08:41 Blood Pressure 107/64 07/21/21 14:44 Blood Pressure Mean 86 07/19/21 19:16 Blood Pressure Position Supine 07/19/21 13:59 Pulse Oximetry 91 L 07/21/21 14:44 Respiratory End-tidal CO2 24 07/19/21 17:31 Oxygen Delivery Method Room Air 07/21/21 14:44 Oxygen Flow Rate 0 07/21/21 14:44 Pain Level 8 07/21/21 12:01 Comment 07/19/21 21:16 Intake & Output 07/20/21 07/21/21 07/21/21 23:59 11:59 23:59 Intake Total 810 / 1170 410 / 410 Output Total 300 / 300 Balance 810 / 1170 110 / 110 Weight 73.4 kg Intake: IV Oral 810 / 1170 400 / 400 Output: Urine 300 / 300 Other: Urine Color Yellow Urine Appearance Clear Urine Odor Normal Comment Pt use urinal to void. Bladder scan before voiding 424 mL. Voiding Methods Urinal Data Completed and Pending Completed studies during hospitalization [Text1]: Exam(s) XR CHEST 2V PA LATERAL EXAM: XR CHEST 2V PA LATERAL CLINICAL HISTORY: unresponsive, r/o acute disease. TECHNIQUE: 2D digital imaging was performed. COMPARISON: CR,XR XR CHEST 2V PA LATERAL from 06/09/2021 FINDINGS: Bipolar left subclavian pacemaker again noted with lead tips in are in RV. Left lung is clear. Subtle 1.5 cm diameter round density over the right mid lung field, possibly chest leads. However, no leg joint wires evident. No confluent infiltrates nor pleural effusions. No pulmonary edema. IMPRESSION: Cardiac pacemaker. No pulmonary edema. No pleural effusions. 1.5 cm subtle nodular density right lung field noted. This is projected over the inferior aspect of the right scapula. Recommend nonportable PA and lateral views when clinically possible. : 1965Age: 55 Exam(s) a CT:CT head & cervical spine wo Exam(s) CT HEAD CERVICAL SPINE WO EXAM: CT HEAD CERVICAL SPINE WO CLINICAL HISTORY: unresponsive, r/o acute disease. TECHNIQUE: Imaging Protocol: Axial computed tomography images with coronal and sagittal reformatted images were created and reviewed COMPARISON: CT CT HEAD WO from 06/09/2021 CR,XR XR CHEST 2V PA LATERAL from 07/19/2021 CR,XR XR CHEST 2V PA LATERAL from 07/19/2021 FINDINGS: BRAIN: There are no skull fractures nor fluid in the visualized paranasal sinuses. There is no evidence of intracranial hemorrhage, mass effect, or shift of midline structures. There are no extra-axial fluid collections. The ventricles are not enlarged or shifted and there is no blood within the ventricular system nor within the basal cisterns. CERVICAL SPINE: There is no evidence of fracture nor listhesis. No significant prevertebral soft tissue swelling. Chronic-type disc space narrowing at C6-7 is noted. There is no significant facet joint malalignment. No significant osseous lesions evident. The lower most images of this neck study reveal absence of lung markings in the apices of the lung chand which is either due to bullae or pneumothorax. IMPRESSION: No acute intracranial findings on this noninfused CT scan of the brain. No evidence of cervical spine fracture, malalignment, nor acute compromise of the cervical spinal canal. Absence of lung markings in the apical lung chand bilaterally implies presence of large bullae or pneumothorax. Recommend chest x-ray. PFSH Medical History Acquired deformity of left hand Agoraphobia Anxiety Anxiety with depression Arthritis Biventricular implantable cardioverter-defibrillator (ICD) in situ Mode:DDD, Low rate 60bpm, Atrial lead: medtronic 5076, SN: [id number] 09/27/14; RV lead Medtronic 6935M SN: [id number] 09/27/14; LV lead Medtronic 4396, SN; [id number] 09/27/14 (updated 03/11/20) BPH (benign prostatic hyperplasia) Cardiomyopathy Chest pain CHF (congestive heart failure) Chronic pain syndrome Cognitive impairment Cyst Depression Diabetes Diarrhea Dizziness Erectile dysfunction Fatigue Hallucination Hand paresthesia Heart disease History of alcohol abuse History of suicidal ideation History of tobacco abuse Hyperlipidemia Impacted ear wax LBBB (left bundle branch block) Lung disease Metacarpophalangeal joint pain Nonischemic dilated cardiomyopathy Pacemaker Pain in right hip Panic anxiety syndrome PTSD (post-traumatic stress disorder) Severe chronic obstructive pulmonary disease Skin lesion Systolic and diastolic CHF, chronic Tobacco use Surgical History Status post biventricular pacemaker Family History Mother , 2008 COPD (chronic obstructive pulmonary disease) Social History Smoking/Tobacco Use Status: Current every day Tobacco Type: cigarettes Smoking risk assessment performed?: Yes Alcohol Intake: former Drug use: Never Household members: none Pets and animals: No What type of physical activity do you participate in: none Seatbelt use: always Do you feel safe at home: Yes Do you feel safe in your relationship?: Yes Additional Social history: lives alone
--- NOTE | 2021-07-21 15:48 | PT.INTREAT ---
Date of service: 07/21/21 Time of Service: 13:59 PT Notes Visit Reasons: Encephalopathy Inpatient Physical Therapy Treatment Note [facility] Date: 07/21/2021 PRECAUTIONS: Activity as tolerated, fall SUBJECTIVE: William states that he feels terrible today. He is reluctant, but eventually agrees to participating in PT in p.m. OBJECTIVE: Patient refused morning PT session x2. PAIN: No c/o pain BED MOBILITY/TRANSFERS Sit-stand: I Stand-sit: I GAIT Assistive Device: FWW Weight bearing: Full Assist: SBA Distance: ~120' Deviation: C/o SOB I feel like I can't breathe, standing rest x1 ASSESSMENT: Patient tolerated session with complaint of SOB with gait training requiring standing rest. He demonstrates independence with sit<>stand transfers at this time. He would benefit from continued general conditioning and global strengthening for improved activity tolerance. PLAN: Continue with gait training and add global strengthening. TREATMENT CODE/TIME: 11 minutes; 70994 (13:59)
--- NOTE | 2021-07-21 16:20 | PDOC.CMDIS ---
- If Service Date Differs Date of service: 07/21/21 Time of Service: 16:20 LACE Index Scoring Tool - Questions: Length of Stay (in days): 4 - 6 Acuity (Admit via E.D.?): Yes Comorbidities: Congestive Heart Failure E.D. Visits: 6 - Answers: Total Score: 13 Risk of Readmission: High Risk Care Management Discharge Reason for Hospitalization: Encephalopathy Discharge Plan: William will return home once medically cleared by MD. He will resume [employer]ILY [employer] supports through MIRANDA KUMAR faxed DC summary to [place] for medication reconciliation and blister packing. He will be driven home via RCT coordinated by this verse writer. He will follow up with his PCP and discharge plan of care. Patient/Family Education Needs: Review discharge instructions, discuss Ask Me Three. Services Needed at Discharge: Transportation (RCT) - MH Services (Omit if N/A) Current MH Services: [employer]
--- NOTE | 2021-07-23 13:53 | INDS_ITS ---
Date of service: 07/23/21 Time of Service: 13:54 PT Notes Visit Reasons: Encephalopathy Physical Therapy Inpatient Discharge Summary Date: 07/23/21 Dates of Service: 07/20/2021 through 07/21/2021 This is a clinical summary of care provided for the duration of dates listed above. No charge was made in the completion of this documentation. Referring Doctor: Dr. Lynne PT Orders: PT CONSULT: limited ability to ambulate Precautions: fall, standard Patient Profile/Admitting Diagnosis: Patient admitted 07/19/2021 after being found unresponsive at home by an [employer] worker. Admitted for altered mental status and failure to thrive. PMHX: Acquired deformity of left hand Agoraphobia Anxiety Anxiety with depression Arthritis Biventricular implantable cardioverter-defibrillator (ICD) in situ Mode:DDD, Low rate 60bpm, Atrial lead: medtronic 5076, SN: [id number] 09/27/14; RV lead Medtronic 6935M SN: [id number] 09/27/14; LV lead Medtronic 4396, SN; [id number] 09/27/14 (updated 03/11/20) BPH (benign prostatic hyperplasia) Cardiomyopathy Chest pain CHF (congestive heart failure) Chronic pain syndrome Cognitive impairment Cyst Depression Diabetes Diarrhea Dizziness Erectile dysfunction Fatigue Hallucination Hand paresthesia Heart disease History of alcohol abuse History of suicidal ideation History of tobacco abuse Hyperlipidemia Impacted ear wax LBBB (left bundle branch block) Lung disease Metacarpophalangeal joint pain Nonischemic dilated cardiomyopathy Pacemaker Pain in right hip Panic anxiety syndrome PTSD (post-traumatic stress disorder) Severe chronic obstructive pulmonary disease Skin lesion Systolic and diastolic CHF, chronic Tobacco use Surgical History Status post biventricular pacemaker Social History/Home Situation: Patient lives alone in a two-level home with no steps to enter. He receives assistance from [employer], for in his home multiple times per day. He is disabled and no longer working. States that he was issued a walker, which he has been using, until it came up missing. Denies utilization of supplemental oxygen at home. Equipment Owned/DME: Unknown Subjective: NT. See most recent [employer] notes. Objective: General Observation: NT. See most recent [employer] notes. Mental Status: NT. See most recent [employer] notes. Pain: NT. See most recent [employer] notes. ROM: Right Upper Extremity: WFL Left Upper Extremity: WFL Right Lower Extremity: WFL Left Lower Extremity: WFL Strength: Right Upper Extremity: Shoulder flexion 4/5. Biceps 4+/5. Triceps 4 -/5. Dictating Transcribing Machine Servicer is weak, but equal. Left Upper Extremity: Shoulder flexion 4/5. Biceps 4+/5. Triceps 4 -/5. Dictating Transcribing Machine Servicer is weak, but equal. Right Lower Extremity: Hip flexion 4/5. Quads 4+/5. Ankle dorsiflexion 5/5. Left Lower Extremity: Hip flexion 4/5. Quads 4+/5. Ankle dorsiflexion 4/5. Neuro: Coordination is diminished with rapid alternating movements of both the upper and lower extremities. Fine motor is diminished with thumb to digit tapping. Patient demonstrates tremor of the upper extremities left greater than right. Bed Mobility/Transfers: Supine?sit: Independent Sit?supine: Independent Sit?stand: Supervision stand?sit: Independent Bed to chair: Independent Gait: Patient ambulates 120 feet with FWW standby assist. Demonstrates mild path deviation. MIld SOB. Balance: Static Sitting: Normal Dynamic Sitting: Normal Static Standing: Fair Dynamic Standing: Fair Treatment: The session consisted of evaluation, followed by instruction in early balance retraining activities, as noted on flowsheet. At end of session, patient was seated to chair, with chair alarm in place and nursing alerted. Assessment: Patient is a 55 year old male referred to physical therapy services with the diagnosis of altered mental status. Patient presents with clinical signs and symptoms consistent with diminished functional mobility related to acute medical issues, as demonstrated by the following impairment level findings: 1. Decreased balance 2. Decreased safety awareness 3. Decreased lower extremity strength 4. Decreased upper extremity strength 5. Decreased coordination 6. Gait impairments Impairments are contributing to the following functional limitations: 1. Decreased safety with household distance ambulation 2. Decreased safety awareness, increasing patient's fall risk 3. Limited compliance with use of assistive device, increasing fall risk Goals: Goals X1 week 1. Supine-Sit: Independent MET 2. Sit-Supine: Independent MET 3. Sit-Stand: Independent MET 4. Stand-Sit: Independent MET 5. Bed-Chair: Independent with use of FWW MET 6. Chair-Bed: Independent with the use of FWW MET 7. Gait: Supervision x200 feet with FWW NOT MET 8. Stairs: Supervision on therapeutic stairs x 5 NOT MET 9. Independent with home exercise program NOT MET DISCHARGE RECOMMENDATIONS: Home with continued services TREATMENT CODE/TIME: NC Thank you for the opportunity to participate in the care of this patient. Valentine Tavera PT, DPT, CLT [facility] [place], [place]
== END 2021-07-21 17:02 | disposition home or self-care (01) ==
LOC: ER 19:58 → MS 07-21 09:34
PROVIDERS: Admitting Provider Internal Medicine; Emergency Provider Physician Assistant; PCP Nurse Practitioner Family; Visit Provider Internal Medicine
DX: T42.6X1A Poisoning by other antiepileptic and sedative-hypnotic drugs, accidental (unintentional), initial encounter (principal); T43.011A Poisoning by tricyclic antidepressants, accidental (unintentional), initial encounter; R41.82 Altered mental status, unspecified; T42.4X1A Poisoning by benzodiazepines, accidental (unintentional), initial encounter; I42.0 Dilated cardiomyopathy; Z95.810 Presence of automatic (implantable) cardiac defibrillator; J44.9 Chronic obstructive pulmonary disease, unspecified; R26.2 Difficulty in walking, not elsewhere classified; I50.42 Chronic combined systolic (congestive) and diastolic (congestive) heart failure; Z20.822 Contact with and (suspected) exposure to COVID-19; R47.01 Aphasia; G31.84 Mild cognitive impairment of uncertain or unknown etiology; F40.00 Agoraphobia, unspecified; N40.0 Benign prostatic hyperplasia without lower urinary tract symptoms; G89.4 Chronic pain syndrome; E11.9 Type 2 diabetes mellitus without complications; R19.7 Diarrhea, unspecified; R42 Dizziness and giddiness; F10.11 Alcohol abuse, in remission; E78.5 Hyperlipidemia, unspecified; I44.7 Left bundle-branch block, unspecified; F32.9 Major depressive disorder, single episode, unspecified; F41.0 Panic disorder [episodic paroxysmal anxiety]; F43.10 Post-traumatic stress disorder, unspecified; F17.210 Nicotine dependence, cigarettes, uncomplicated
CPT/HCPCS: 36415; 36416; 80048; 80053; 80307; 82550; 82805; 82962; 87635; 93005; 94640; 96361; 96374; 97162; 97530; 99285; J1650; 70450; 71046; 72125; 80320; 80329; 81003; 83735; 84484; 85025; 93010; 99217; 99220; 99225; G0378; J2310; J7613; J7620

== ENCOUNTER 2021-08-27 16:32 | Outpatient (REF) | payer MEDICARE, SELFPAY ==
[2021-08-29 10:43] LABS: COVID-19 RT-PCR UVMMC Result Negative (Negative)
== END 2021-08-27 16:33 | disposition home or self-care (01) ==
LOC: NCHCN 16:32
PROVIDERS: PCP Nurse Practitioner Family; Visit Provider Nurse Practitioner Family
DX: Z20.822 Contact with and (suspected) exposure to COVID-19 (principal); J44.9 Chronic obstructive pulmonary disease, unspecified
CPT/HCPCS: U0003; U0005

== ENCOUNTER 2022-02-05 16:39 | Emergency (ER) | payer MEDICARE, SELFPAY ==
--- NOTE | 2022-02-05 16:30 | RT.EKG_ITS ---
APPROVED REPORT Exam: Resting ECG Reason for Exam: sob Patient Location: E HR:100 bpm ECG Measurements Heart Rate 100 AXIS UT 148 P 65 QRSd 135 QRS 258 QT 374 T 46 QTc 484 Conclusion Atrial-sensed ventricular-paced rhythm...ventricular pacing tracks p-waves Biventricular paced rhythm...non-simultaneous bi-vent pacing. Paced. No STEMI.
[2022-02-05 16:44] VITALS: BP 145/76; PULSE 98; RESP 18; TEMP 36.3; O2SAT 86
--- NOTE | 2022-02-05 16:45 | DI.RAD_ITS ---
Exam(s) XR CHEST 2V PA LATERAL EXAM: XR CHEST 2V PA LATERAL CLINICAL HISTORY: sob, r/o acute disease TECHNIQUE: 2D digital imaging was performed of the chest. Two images were obtained. PA and lateral views were obtained. COMPARISON: CR,XR XR CHEST 2V PA LATERAL from 07/19/2021 FINDINGS: MEDIASTINUM: Normal. HEART: Normal. Cardiac pacing device is in place. PULMONARY VASCULATURE: Normal. LUNGS: COPD. No focal consolidating infiltrates. PLEURAL SPACE: No pleural effusion or pneumothorax. BONE:Within normal limits for the patient's age. OTHER FINDINGS:Normal. IMPRESSION: No acute pulmonary findings. DATA REPOSITORY: RADIATION DOSE DELIVERED:
[2022-02-05 16:55] VITALS: O2SAT 98
--- NOTE | 2022-02-05 17:00 | DI.CT_ITS ---
Exam(s) CT HEAD WO EXAM: CT HEAD WO CLINICAL HISTORY: headache, r/o acute cva. TECHNIQUE: Imaging Protocol: Axial computed tomography images with coronal and sagittal reformatted images were created and reviewed COMPARISON: CT CT HEAD CERVICAL SPINE WO from 07/19/2021 FINDINGS: The examination is limited due to patient motion artifact. Ventricles and Extra axial spaces: Normal in size and morphology for the patient's age. Hemorrhage: None. Cerebral parenchyma: Normal. Midline shift: None. Brainstem/Cerebellum: Normal. Calvarium: Normal. Visualized Paranasal sinuses/Mastoids: Clear. Soft Tissues: Unremarkable. IMPRESSION: No acute intracranial process. RADIATION DOSE DELIVERED: 792.4mGy.cm Total DLP DATA REPOSITORY: All CT scans at this facility are submitted to the National Radiology Data Registry (NRDR) Dose Index Registry (DIR) with the [employer] (A[employer]). RADIATION OPTIMIZATION: All CT scans at this facility use at least one of these dose optimization te chniques: automated exposure control; mA and/or kV adjustment per patient size (includes targeted exa ms where dose is matched to clinical indication); or iterative reconstruction.
--- NOTE | 2022-02-05 17:01 | ED.GENADUL_ITS ---
Discharge Plan Disposition Patient Disposition: HOME Condition: Stable Discharge Details Clinical Impression: Acute exacerbation of chronic obstructive pulmonary disease Primary Care Provider: Lorrie Crespo ED Provider: Yeny Pickens Home Meds and New Rx's Prescriptions: New prednisone 20 mg tablet See Rx Instructions .ROUTE .COMPLEX Qty: 18 0RF Rx Instructions: Take 3 tabs daily for 3 days, then 2 tabs daily for 3 days, then 1 tab daily for 3 days. Continued nitroglycerin 0.4 MG tablet, sublingual 0.4 mg Sublingual one every 5 mins. x3 Qty: 30 3RF quetiapine [Seroquel] 400 mg tablet 400 mg PO HS 0RF Rx Instructions: give with 100mg tablet for total of 500 mg fluticasone propion-salmeterol [Advair Diskus] 250-50 mcg/dose blister with device 1 inh inhalation BID 0RF hydrocodone-acetaminophen 5-325 mg tablet 1 tab PO TID PRN PRN (Reason: Pain) 0RF amitriptyline 25 mg tablet 25 mg PO QHS 0RF acetaminophen 325 mg capsule 325 mg PO TID PRN PRN (Reason: Pain) 0RF montelukast 10 mg tablet 10 mg PO DAILY 0RF benztropine 1 mg tablet 1 mg PO HS Qty: 0 0RF bupropion HCl 300 mg tablet extended release 24 hr 300 mg PO QAM Qty: 10 0RF Label Comments: total dose 450 mg pravastatin 20 mg tablet 20 mg PO QHS Qty: 10 0RF bupropion HCl 150 mg tablet extended release 24 hr 150 mg PO QAM 0RF Label Comments: total dose 450 mg ipratropium-albuterol 0.5 mg-3 mg(2.5 mg base)/3 mL solution for nebulization 3 ml IH Q6H Qty: 90 0RF quetiapine 100 mg Tablet 100 mg PO QHS 0RF Rx Instructions: give with 400mg tablet for 500mg total pantoprazole 40 mg Tablet,Delayed Release (Dr/Ec) 40 mg PO DAILY@0730 Qty: 30 0RF albuterol sulfate 1.25 mg/3 mL solution for nebulization 1.25 mg inhalation QID PRN (Reason: shortness of breath or wheezing) Qty: 90 0RF amoxicillin-pot clavulanate [Augmentin] 875-125 mg tablet 1 tab PO BID Qty: 7 0RF clonazepam 1 mg tablet 1 mg PO BID 0RF Label Comments: Take 1 tablet by mouth twice a day gabapentin 600 mg Tablet 400 mg PO TID 0RF Trintellix 20 mg tablet 20 mg PO DAILY 0RF Label Comments: Take 1 tablet by mouth once a day Rx Instructions: stop clonazepam 1 mg Tablet 1 mg PO BID Qty: 40 0RF Spiriva Respimat 1.25 mcg/actuation mist 2 puff inhalation DAILY Qty: 4 0RF Rx Instructions: stop No Action aspirin [Aspir-81] 81 mg Tablet,Delayed Release (Dr/Ec) 81 mg PO DIRECTED 0RF Rx Instructions: 08/07 & 08/08 benztropine 1 mg Tablet 1 mg PO HS 0RF furosemide 20 mg Tablet 20 mg PO PRN PRN0RF lithium carbonate 300 mg capsule 300 mg PO BID 0RF Label Comments: take 1 cap po bid metoprolol succinate 25 mg Tablet Extended Release 24 Hr 25 mg PO DAILY 0RF prazosin 1 mg Capsule 1 mg PO DAILY 0RF albuterol sulfate [ProAir HFA] 90 mcg/actuation Hfa Aerosol Inhaler 2 puff INHALATION DIRECTED 0RF spironolactone 25 mg Tablet 12.5 mg PO DAILY 0RF tamsulosin 0.4 mg Capsule 0.4 mg PO DAILY 0RF terazosin 2 mg Capsule 2 mg PO HS 0RF Discharge Instructions Instructions: COPD (Chronic Obstructive Pulmonary Disease) (ED) Additional Instructions: Your lab work, EKG, and imaging today is reassuring and shows no evidence of acute concerning or significant findings. Your symptoms of shortness of breath may be secondary to bronchitis or an acute COPD exacerbation. Your imaging today showed no evidence of a blood clot or pneumonia in your lungs. You were negative for the flu, covid and RSV today. Your results were also reviewed with your providers that placed your pacemaker at [facility] and there were no concerns regarding your pacemaker at this time. Drink plenty of fluids and get plenty of rest. You are being sent home with a prescription for prednisone to take as directed until finished. Continue to use your albuterol inhaler and nebulizer machine as needed and directed for coughing or shortness of breath. Follow-up with your primary care doctor in 1 week. Return to the emergency department with any worsening or new concerning symptoms. Discharge Data Discharge Date/Time-TO BE ENTERED AT DEPARTURE: 02/05/22 20:03 Discharge Physician: Yeny Pickens Medical Decision Making 56-year-old male with a history of CHF, COPD, polysubstance abuse, PTSD, agoraphobia, hallucinations, chronic tobacco use, hyperlipidemia presents from [facility] for shortness of breath after dressing change from his pacemaker which was placed 3 days ago. Also complained of headache. Patient is drowsy but arousable and able to answer questions. I have seen patient before many times and have admitted him for altered mental status and he appears more alert and oriented than usual. His oxygen saturation was 86% on room air on arrival, increased to mid 90s on 2 L nasal cannula. Patient taken b ack off oxygen and is maintained saturations in the mid 90s on room air. He does have scattered wheezing throughout. His left upper chest pacemaker site is edematous and ecchymotic but there is no obvious abscess, drainage or bleeding. Differential diagnosis includes dehydration, COVID, flu, electrolyte abnormality, CVA, pneumonia, PE, COPD exacerbation. He has no focal deficits on exam. Will obtain screening labs, CT head, chest x-ray, Fluvid. Labs and imaging reviewed. White blood cell count 13. Normal electrolytes. Troponin negative. Fluvid negative. CT head and chest x-ray negative for acute findings. Considering his initial hypoxia and ecchymoses noted to left lateral chest, will obtain a CT chest to rule out PE vs seroma. CT chest negative for PE, seroma or pneumonia. Patient reassessed and he felt much better and feels comfortable going home. His oxygen saturation remained mid to high 90s on room air. He denies any acute complaints at this time. Case discussed with [facility] cardiology team who performed his pacemaker this week. Based on symptom presentation and unremarkable results today, no other acute recommendations regarding his pacemaker. Patient states he has plenty of his albuterol solution at home. Will give albuterol inhaler if needed and send with a prescription for prednisone. Advised to follow up with the primary care doctor for re-evaluation. Usual and customary return precautions given prior to discharge. Medical Records Medical records reviewed: Yes I reviewed the patient's medical records. Imaging Data Radiologic Study: Radiologist's impression: CT Head Without Contrast Exam date and time: 02/05/2022 5:24 PM Age: 56 years old Clinical indication: Other: Headahce, R/O acute CVA TECHNIQUE: Imaging protocol: Computed tomography of the head without contrast. COMPARISON: CT HEAD CERVICAL SPINE WO 07/19/2021 2:35 PM FINDINGS: Brain: No convincing evidence of an acute infarct. No acute intracranial hemorrhage. Cerebral ventricles: No hydrocephalus. Paranasal sinuses: Visualized paranasal sinuses are clear. Mastoid air cells: Mastoid air cells are clear. Orbital cavities: Globes and orbits appear intact. Vasculature: Vascular calcifications. Bones/joints: No acute skull fracture Soft tissues: Unremarkable superficial soft tissues. IMPRESSION: No acute intracranial findings. XR Chest Exam date and time: 02/05/2022 5:18 PM Age: 56 years old Clinical indication: Other: SOB, R/O scute disease TECHNIQUE: Imaging protocol: XR of the chest. Views: 2 views. COMPARISON: CR XR CHEST 2V PA LATERAL 07/19/2021 2:46 PM FINDINGS: Tubes, catheters and devices: Pacer device. Lungs: No consolidation. Pleural spaces: No pneumothorax. No sizable pleural effusion. Heart/Mediastinum: Cardiomediastinal silhouette within normal limits. Bones/joints: No acute displaced fractures. IMPRESSION: No acute cardiopulmonary findings. CTA Chest With Contrast Exam date and time: 02/05/2022 6:34 PM Age: 56 years old Clinical indication: Other: S/P pacemaker L upper chest R/O pe, seroma TECHNIQUE: Imaging protocol: Computed tomographic angiography of the chest with contrast. 3D rendering (Not supervised by radiologist): MIP and/or 3D reconstructed images were created by the technologist. Contrast material: OMNIAPQUE 350; Contrast volume: 70 ml; Contrast route: INTRAVENOUS (IV);? COMPARISON: CT CHEST PE ABD PELVIS W 01/21/2021 3:33 PM FINDINGS: Tubes, catheters and devices: Pacemaker noted, with moderate adjacent streak artifact. Pulmonary arteries: Normal. No pulmonary emboli. Aorta: Negative for aneurysm or dissection. Mild plaque present in the aorta. Lungs: Bullous emphysema, severe in the lung apices. No significant consolidation or ground-glass opacity. Areas of atelectasis or scarring noted in the right middle lobe and lingula. No significant endobronchial mucus. Pleural spaces: Unremarkable. No pneumothorax. No pleural effusion. Heart: No cardiomegaly. No pericardial effusion. No significant coronary artery calcification. Lymph nodes: Unremarkable. No enlarged lymph nodes. Bones/joints: Unremarkable. No acute fracture. Soft tissues: Unremarkable. No large fluid collections are observed around the pacemaker or elsewhere in the chest wall. Other findings: Respiratory motion artifact. IMPRESSION: 1. Negative for pulmonary embolism. 2. Negative for aortic dissection. 3. No significant pneumonia. 4. No pneumothorax. 5. No specific chest wall hematoma. Lab Data Lab results reviewed: Yes I reviewed the patient's lab results. Labs: Laboratory Tests Range/Units 02/05/22 02/05/22 02/05/22 16:50 16:50 16:50 WBC (4.4-10.8) 10^3/uL 13.89 H RBC (4.36-5.78) 10^6/uL 5.97 H Hgb (13.5-17.5) g/dL 18.7 H Hct (40.0-50.0) % 55.9 H MCV (80-95) fL 93.6 MCH (27.0-33.0) pg 31.3 MCHC (32.0-36.0) % 33.5 RDW (11.8-14.1) % 13.8 Plt Count (130-400) 10^3/uL 190 MPV (8.0-11.0) fL 10.7 Immature Gran % 0.4 Neutrophils % 81.3 Lymphocytes % 6.6 Monocytes % 10.6 Eosinophils % 0.6 Basophils % 0.5 Nucleated RBC % (0.0-0.3) % 0.0 Absolute Neutrophils (1.2-6.7) 10^3/uL 11.29 H Absolute Lymphocytes (1.2-3.4) 10^3/uL 0.92 L Absolute Monocytes (0.1-0.8) 10^3/uL 1.47 H Absolute Eosinophils (0.0-0.7) 10^3/uL 0.08 Absolute Basophils (0.0-0.2) 10^3/uL 0.07 Sodium (136-145) mmol/L 139 Potassium (3.5-5.1) mmol/L 4.1 Chloride (98-107) mmol/L 98 Carbon Dioxide (21.0-32.0) mmol/L 30.9 Anion Gap (3-11) mmol/L 10.1 BUN (7-18) mg/dL 13 Creatinine (0.70-1.30) mg/dL 0.9 Estimated GFR/1.73 m2 (mL/min/1.73m2) >= 60.00 Glucose (74-106) mg/dL 93 Calcium (8.5-10.1) mg/dL 9.5 Magnesium (1.8-2.4) mg/dL 2.1 Total Bilirubin (0.2-1.0) mg/dL 0.5 AST (15-37) U/L 16 ALT (16-63) U/L 20 Alkaline Phosphatase (46-116) U/L 101 Troponin I (<or=60) ng/L < 50 Total Protein (6.4-8.2) g/dL 8.2 Albumin (3.4-5.0) g/dL 4.3 COVID-19 Source Nasopharynx SARS-CoV-2 (PCR) (Negative) Negative Influenza Type A (PCR) (Negative) Negative Influenza Type B (PCR) (Negative) Negative RSV (PCR) (Negative) Negative ECG Data Attestation: I personally reviewed and interpreted this ECG (s) as follows: Interpretation: Rate of 100, paced, no STEMI. HPI General Mode of arrival: ambulatory . Date/Time Provider Initiated Documentation: 02/05/22 16:40 . Limitations to Documentation: no limitations . Information obtained by: patient . HPI Narrative: Patient is a 56-year-old male with a history of CHF, anxiety, depression, hyperlipidemia, PTSD, COPD who is 3 days status post pacemaker placement at [facility] presents from [place] for shortness of breath after a dressing change at his pacemaker site today. Patient states he has chronic shortness of breath but states it was worse today. He does admit to chronic cough and wheezing due to his history of COPD but states he is not on regular oxygen. He does also admit to a headache today. Related Data Home Medications Medication Instructions Recorded Confirmed nitroglycerin 0.4 mg sublingual 0.4 mg SUBLINGUAL one every 5 07/27/17 07/19/21 tablet mins. x3 #30 tab-cap montelukast 10 mg tablet 10 mg PO DAILY 03/08/20 02/05/22 benztropine 1 mg tablet 1 mg PO HS #0 tab 03/17/20 07/19/21 bupropion HCl 300 mg 24 hr tablet, 300 mg PO QAM #10 tab 03/17/20 02/05/22 extended release pravastatin 20 mg tablet 20 mg PO QHS #10 tab 03/17/20 02/05/22 bupropion HCl 150 mg 24 hr tablet, 150 mg PO QAM 01/21/21 02/05/22 extended release ipratropium 0.5 mg-albuterol 3 mg 3 ml IH Q6H #90 ml 01/28/21 02/05/22 (2.5 mg base)/3 mL nebulization soln acetaminophen 325 mg capsule 325 mg PO TID PRN PRN 02/18/21 02/05/22 amitriptyline 25 mg tablet 25 mg PO QHS tab 02/18/21 02/05/22 fluticasone 250 mcg-salmeterol 50 1 inh INHALATION BID 02/18/21 02/05/22 mcg/dose blistr powdr for inhalation (Advair Diskus) hydrocodone 5 mg-acetaminophen 325 1 tab PO TID PRN PRN 02/18/21 07/19/21 mg tablet quetiapine 400 mg tablet (Seroquel) 400 mg PO HS tab 02/18/21 02/05/22 quetiapine 100 mg tablet 100 mg PO QHS 04/29/21 02/05/22 albuterol sulfate 1.25 mg/3 mL 1.25 mg (3 mL) INHALATION QID PRN 05/01/21 07/19/21 solution for nebulization #90 ml pantoprazole 40 mg tablet,delayed 40 mg PO DAILY@0730 #30 tab 05/01/21 02/05/22 release tiotropium bromide 1.25 2 puff INHALATION DAILY #4 g 05/16/21 07/19/21 mcg/actuation mist for inhalation (Spiriva Respimat) amoxicillin 875 mg-potassium 1 tab PO BID #7 tab 06/10/21 clavulanate 125 mg tablet (Augmentin) clonazepam 1 mg tablet 1 mg PO BID 07/21/21 07/21/21 clonazepam 1 mg tablet 1 mg PO BID #40 tab 07/21/21 02/05/22 gabapentin 600 mg tablet 400 mg PO TID 07/21/21 02/05/22 vortioxetine 20 mg tablet 20 mg PO DAILY 07/21/21 07/21/21 (Trintellix) albuterol sulfate 90 mcg/actuation 2 puff INHALATION DIRECTED 02/05/22 02/05/22 aerosol inhaler (ProAir HFA) aspirin 81 mg tablet,delayed 81 mg PO DIRECTED 02/05/22 02/05/22 release benztropine 1 mg tablet 1 mg PO HS 02/05/22 02/05/22 furosemide 20 mg tablet 20 mg PO PRN PRN 02/05/22 02/05/22 lithium carbonate 300 mg capsule 300 mg PO BID 02/05/22 02/05/22 metoprolol succinate 25 mg 25 mg PO DAILY 02/05/22 02/05/22 tablet,extended release 24 hr prazosin 1 mg capsule 1 mg PO DAILY 02/05/22 02/05/22 prednisone 20 mg tablet See Rx Instructions .ROUTE 02/05/22 .COMPLEX #18 tab spironolactone 25 mg tablet 12.5 mg PO DAILY 02/05/22 02/05/22 tamsulosin 0.4 mg capsule 0.4 mg PO DAILY 02/05/22 02/05/22 terazosin 2 mg capsule 2 mg PO HS 02/05/22 02/05/22 Previous Rx's Medication Instructions Recorded nitroglycerin 0.4 mg sublingual 0.4 mg SUBLINGUAL one every 5 07/27/17 tablet mins. x3 #30 tab-cap benztropine 1 mg tablet 1 mg PO HS #0 tab 03/17/20 bupropion HCl 300 mg 24 hr tablet, 300 mg PO QAM #10 tab 03/17/20 extended release pravastatin 20 mg tablet 20 mg PO QHS #10 tab 03/17/20 ipratropium 0.5 mg-albuterol 3 mg 3 ml IH Q6H #90 ml 01/28/21 (2.5 mg base)/3 mL nebulization soln albuterol sulfate 1.25 mg/3 mL 1.25 mg (3 mL) INHALATION QID PRN 05/01/21 solution for nebulization #90 ml pantoprazole 40 mg tablet,delayed 40 mg PO DAILY@0730 #30 tab 05/01/21 release tiotropium bromide 1.25 2 puff INHALATION DAILY #4 g 05/16/21 mcg/actuation mist for inhalation (Spiriva Respimat) amoxicillin 875 mg-potassium 1 tab PO BID #7 tab 06/10/21 clavulanate 125 mg tablet (Augmentin) clonazepam 1 mg tablet 1 mg PO BID #40 tab 07/21/21 prednisone 20 mg tablet See Rx Instructions .ROUTE 02/05/22 .COMPLEX #18 tab Allergies Allergy/AdvReac Type Severity Reaction Status Date / Time citalopram Allergy Unverified 07/19/21 20:47 oxycodone HCl [From Percocet] AdvReac Addiction Unverified 07/19/21 20:47 General Stated Complaint: SOB MOLLY: 2 Review of Systems All systems reviewed & are unremarkable except as noted in HPI and below Constitutional Constitutional: Reports as per HPI, Denies chills, Denies excessive sweating, Denies fatigue, Denies fever(s) and Reports headache(s) Eyes Eyes: Denies blurry vision ENT Ears, Nose, Mouth, and Throat: Denies dizziness, Reports headache(s), Denies sore throat and Denies throat swelling Cardiovascular Cardiovascular: Denies chest pain and Reports dyspnea Respiratory Respiratory: Denies cough and Reports dyspnea Gastrointestinal Gastrointestinal: Denies abdominal pain, Denies diarrhea and Denies vomiting Genitourinary Genitourinary: Denies hematuria and Denies dysuria Musculoskeletal Musculoskeletal: Denies back pain and Denies numbness Integumentary/Breasts Skin/Breast: Denies lesions and Denies rash Neurologic Neurologic: Denies behavioral changes, Denies confusion, Denies dizziness, Reports headache(s), Denies localized weakness and Denies numbness Psychiatric Psychiatric: Denies behavioral changes, Denies confusion and Denies depression Endocrine Endocrine: Denies excessive sweating and Denies fatigue Hematologic/Lymphatic Hematologic/Lymphatic: Denies easy bruising and Denies lymphadenopathy Allergic/Immunologic Allergic/Immunologic: Denies throat swelling PFSH All Active Problems (Updated 02/05/22 @ 19:51 by Yeny Pickens DO) Acute exacerbation of chronic obstructive pulmonary disease (Acute) Altered mental status (Acute) Ambulatory dysfunction (Acute) Adult failure to thrive (Acute) Bullae (Acute) Chronic respiratory failure with hypoxia (Acute) Cigarette smoker (Acute) Cognitive impairment (Chronic) Ambulatory dysfunction (Chronic) DVT prophylaxis (Acute) Current smoker (Acute) Lung bullae (Acute) Acute exacerbation of chronic obstructive pulmonary disease (Acute) Acute on chronic systolic CHF (congestive heart failure) (Acute) Musculoskeletal chest pain (Chronic) Lethargy (Acute) BPH (benign prostatic hyperplasia) (Chronic) Lung disease (Acute) Arthritis (Acute) COPD exacerbation (Acute) Noncompliance with medication regimen (Acute) Depression (Chronic) Generalized weakness (Acute) UTI (urinary tract infection) (Acute) Discharge planning issues (Acute) Polysubstance abuse (Chronic) Confusion (Acute) Auditory hallucination (Acute) Orthostatic hypotension (Acute) PTSD (post-traumatic stress disorder) (Chronic) Discharge planning issues (Acute) Ambulatory dysfunction (Acute) Dyspnea (Acute) COPD (chronic obstructive pulmonary disease) (Chronic) DVT prophylaxis (Acute) Left rib fracture (Acute) Rib fracture (Acute) Syncope (Chronic) Severe chronic obstructive pulmonary disease (Chronic) Biventricular implantable cardioverter-defibrillator (ICD) in situ (Chronic) Mode:DDD, Low rate 60bpm, Atrial lead: medtronic 5076, SN: [id number] 09/27/14; RV lead Medtronic 6935M SN: [id number] 09/27/14; LV lead Medtronic 4396, SN; [id number] 09/27/14 (updated 03/11/20) Systolic and diastolic CHF, chronic (Chronic) LBBB (left bundle branch block) (Chronic) Nonischemic dilated cardiomyopathy (Chronic) Medical History Acquired deformity of left hand Agoraphobia Anxiety Anxiety with depression Arthritis Biventricular implantable cardioverter-defibrillator (ICD) in situ Mode:DDD, Low rate 60bpm, Atrial lead: medtronic 5076, SN: [id number] 09/27/14; RV lead Medtronic 6935M SN: [id number] 09/27/14; LV lead Medtronic 4396, SN; TRACIE [id number] 09/27/14 (updated 03/11/20) BPH (benign prostatic hyperplasia) Cardiomyopathy Chest pain CHF (congestive heart failure) Chronic pain syndrome Cognitive impairment Cyst Depression Diabetes Diarrhea Dizziness Erectile dysfunction Fatigue Hallucination Hand paresthesia Heart disease History of alcohol abuse History of suicidal ideation History of tobacco abuse Hyperlipidemia Impacted ear wax LBBB (left bundle branch block) Lung disease Metacarpophalangeal joint pain Nonischemic dilated cardiomyopathy Pacemaker Pain in right hip Panic anxiety syndrome PTSD (post-traumatic stress disorder) Severe chronic obstructive pulmonary disease Skin lesion Systolic and diastolic CHF, chronic Tobacco use Surgical History Status post biventricular pacemaker Family History Mother , 2008 COPD (chronic obstructive pulmonary disease) Social History Smoking/Tobacco Use Status: Current every day Tobacco Type: cigarettes Smoking risk assessment performed?: Yes Alcohol Intake: former Drug use: Never Household members: none Pets and animals: No What type of physical activity do you participate in: none Seatbelt use: always Do you feel safe at home: Yes Do you feel safe in your relationship?: Yes Additional Social history: lives alone Exam Const General: cooperative Orientation: alert and awake HENMT Head: normal to inspection Ears: hearing grossly normal bilaterally, external ears normal and TM's normal bilaterally General nose exam: external nose normal Face and sinus: normal facial exam Mouth: mucous membranes dry Teeth and gingiva: dentition normal Throat: posterior oropharynx normal Eyes General: appearance normal, both eyes and all related structures Eyelids: eyelids normal Pupils: PERRL EOM: EOM intact bilaterally Neck Neck: normal visual inspection Lymphatic: no lymphadenopathy noted Chest Chest: normal inspection of the chest Resp Effort & Inspection: normal respiratory effort and able to speak in complete sentences Auscultation: wheezes expiratory wheezes Cardio Rate: regular rate Rhythm: regular rhythm GI Inspection: normal to inspection Palpation: soft, not firm, no guarding, no hepatosplenomegaly, no masses and nontender Auscultation: normal bowel sounds Back/Spine/Pelvis Back: no CVA tenderness Skin General skin exam: no rashes or lesions noted Neuro General: patient alert, patient awake, moves all extremities, no meningeal signs, no focal motor deficits and other (drowsy at times but arousable) Cognition: normal cognition Speech: speech normal Gait: normal gait Motor: muscle tone normal throughout Sensory Exam: no sensory deficits noted Extrem General: normal to inspection, full ROM and capillary refill normal Psych Appearance: grossly normal Mental Status: mental status grossly normal Speech and Movement: speech and movement normal Affect: normal affect Thought Process: normal Course Vital Signs Vital signs: Vital Signs Temperature 97.3 F L 02/05/22 16:44 Pulse 98 H 02/05/22 16:44 Respiratory Rate 18 02/05/22 16:44 Blood Pressure 145/76 H 02/05/22 16:44 Pulse Oximetry 86 L 02/05/22 16:44 Temperature 97.3 F L 02/05/22 16:44 Temperature Source Skin 02/05/22 16:44 Pulse 98 H 02/05/22 16:44 Respiratory Rate 18 02/05/22 16:44 Blood Pressure 145/76 H 02/05/22 16:44 Pulse Oximetry 98 02/05/22 16:55 Oxygen Delivery Method Nasal Cannula 02/05/22 16:55 Oxygen Flow Rate 2 02/05/22 16:55 Pain Level 9 02/05/22 16:44 Comment 02/05/22 16:44
[2022-02-05 17:03] VITALS: RESP 14
[2022-02-05 17:12] LABS: Abs Immature Grans 0.06 10^3/uL (0.0-0.06); Absolute Basophil Count 0.07 10^3/uL (0.0-0.2); Absolute Lymphocyte Count 0.92 10^3/uL (1.2-3.4); Absolute Monocyte Count 1.47 10^3/uL (0.1-0.8); Basophils % 0.5; Eosinophils % 0.6; HCT 55.9 % (40.0-50.0); HGB 18.7 g/dL (13.5-17.5); Immature Grans % 0.4; Lymphocytes % 6.6; MCH 31.3 pg (27.0-33.0); MCHC 33.5 % (32.0-36.0); MCV 93.6 fL (80-95); MPV 10.7 fL (8.0-11.0); Monocytes % 10.6; Neutrophils % 81.3; Platelet Count 190 10^3/uL (130-400); RBC 5.97 10^6/uL (4.36-5.78); RDW 13.8 % (11.8-14.1); WBC 13.89 10^3/uL (4.4-10.8)
[2022-02-05 17:16] LABS: Absolute Eosinophil Count 0.08 10^3/uL (0.0-0.7); Absolute Neutrophil Count 11.29 10^3/uL (1.2-6.7)
[2022-02-05 17:30] LABS: ALT 20 U/L (16-63); AST 16 U/L (15-37); Albumin 4.3 g/dL (3.4-5.0); Alkaline Phosphatase 101 U/L (46-116); Anion Gap 10.1 mmol/L (3-11); BUN 13 mg/dL (7-18); Bilirubin, Total 0.5 mg/dL (0.2-1.0); CO2 30.9 mmol/L (21.0-32.0); CREATININE 0.9 mg/dL (0.70-1.30); Calcium 9.5 mg/dL (8.5-10.1); Chloride 98 mmol/L (98-107); Glucose 93 mg/dL (74-106); Magnesium 2.1 mg/dL (1.8-2.4); Potassium 4.1 mmol/L (3.5-5.1); Sodium 139 mmol/L (136-145); Total Protein 8.2 g/dL (6.4-8.2); Troponin I < 50 ng/L (<or=60)
--- NOTE | 2022-02-05 17:44 | DI.CT_ITS ---
Exam(s) CT CHEST PE CTA EXAM: CT CHEST PE CTA CLINICAL HISTORY: s/p pacemaker L upper chest. TECHNIQUE: Imaging Protocol: Axial CT angiography was performed with multi-slice acquisition and mu lti-planar and/or 3D reconstructions. CONTRAST MATERIAL: Intravenous: Omnipaque 350 Contrast volume:70 mL COMPARISON: CT CT CHEST PE ABD PELVIS W from 01/21/2021 FINDINGS: The examination is limited due to patient motion artifact. Tracheobronchial tree: Patent where visualized. Pulmonary parenchyma: No consolidation or dominant measurable mass. Pulmonary emphysema. Pulmonary Arteries: No evidence of filling defect to suggest pulmonary emboli. Mediastinum and Latrice: No dominant adenopathy or fluid collection. The esophagus is unremarkable. Visualized thyroid gland: Unremarkable. Pleura: No effusion or pneumothorax. Heart: The heart is not dilated. Coronary artery calcifications are present. No pericardial effusion . Aorta: Thoracic aorta non-dilated. No evidence of dissection. Atherosclerosis. Upper abdomen: Unremarkable. Tubes, Catheters, and Lines: Cardiac pacing device in good position. Soft tissues: Unremarkable. Bones: Within normal limits for the patient's age. IMPRESSION: No evidence of pulmonary embolism, thoracic aortic dissection or aneurysm. RADIATION DOSE DELIVERED: 371.34mGy.cm Total DLP DATA REPOSITORY: All CT scans at this facility are submitted to the National Radiology Data Registry (NRDR) Dose Index Registry (DIR) with the [employer] (ACR). RADIATION OPTIMIZATION: All CT scans at this facility use at least one of these dose optimization te chniques: automated exposure control; mA and/or kV adjustment per patient size (includes targeted exa ms where dose is matched to clinical indication); or iterative reconstruction.
--- NOTE | 2022-02-05 17:45 | NUR.NOTE ---
provider [facility] notified of pts trouble breathing, provider came to room with RN. provider knows pt from previous visits and states this is his baseline. pt does have copd, provider took pt off o2, will put back on if goes below 90%.LANCE
--- NOTE | 2022-02-05 17:46 | DI.VRAD_ITS ---
PROCEDURE INFORMATION: Exam: XR Chest Exam date and time: 02/05/2022 5:18 PM Age: 56 years old Clinical indication: Other: SOB, R/O scute disease TECHNIQUE: Imaging protocol: XR of the chest. Views: 2 views. COMPARISON: CR XR CHEST 2V PA LATERAL 07/19/2021 2:46 PM FINDINGS: Tubes, catheters and devices: Pacer device. Lungs: No consolidation. Pleural spaces: No pneumothorax. No sizable pleural effusion. Heart/Mediastinum: Cardiomediastinal silhouette within normal limits. Bones/joints: No acute displaced fractures. IMPRESSION: No acute cardiopulmonary findings. Dictated and Authenticated by: Kumar Kraus MD. Ordering:THERON Saini MD
--- NOTE | 2022-02-05 17:48 | DI.VRAD_ITS ---
PROCEDURE INFORMATION: Exam: CT Head Without Contrast Exam date and time: 02/05/2022 5:24 PM Age: 56 years old Clinical indication: Other: Headahce, R/O acute CVA TECHNIQUE: Imaging protocol: Computed tomography of the head without contrast. COMPARISON: CT HEAD CERVICAL SPINE WO 07/19/2021 2:35 PM FINDINGS: Brain: No convincing evidence of an acute infarct. No acute intracranial hemorrhage. Cerebral ventricles: No hydrocephalus. Paranasal sinuses: Visualized paranasal sinuses are clear. Mastoid air cells: Mastoid air cells are clear. Orbital cavities: Globes and orbits appear intact. Vasculature: Vascular calcifications. Bones/joints: No acute skull fracture Soft tissues: Unremarkable superficial soft tissues. IMPRESSION: No acute intracranial findings. Dictated and Authenticated by: Kumar Kraus MD. Ordering:THERON Saini MD
[2022-02-05 17:49] LABS: COVID-19 PCR Negative (Negative); Influenza A PCR Negative (Negative); Influenza B PCR Negative (Negative); RSV PCR Negative (Negative)
[2022-02-05 17:51] LABS: Source Nasopharynx
[2022-02-05] MEDS: Normal Saline 1,000 ML 1000 ML IV (17:51)
[2022-02-05] MEDS: predniSONE 20 MG TAB 60 MG PO (17:51)
[2022-02-05] MEDS: Albuterol/Ipratropium 3 ML UPD VIAL UPD (17:52)
[2022-02-05] MEDS: Omnipaque 350 MG/ML 100 ML BTL IJ (18:37)
[2022-02-05 18:56] VITALS: BP 142/77; PULSE 89; RESP 18; O2SAT 92
--- NOTE | 2022-02-05 19:05 | DI.VRAD_ITS ---
PROCEDURE INFORMATION: Exam: CTA Chest With Contrast Exam date and time: 02/05/2022 6:34 PM Age: 56 years old Clinical indication: Other: S/P pacemaker L upper chest R/O pe, seroma TECHNIQUE: Imaging protocol: Computed tomographic angiography of the chest with contrast. 3D rendering (Not supervised by radiologist): MIP and/or 3D reconstructed images were created by the technologist. Contrast material: OMNIAPQUE 350; Contrast volume: 70 ml; Contrast route: INTRAVENOUS (IV); COMPARISON: CT CHEST PE ABD PELVIS W 01/21/2021 3:33 PM FINDINGS: Tubes, catheters and devices: Pacemaker noted, with moderate adjacent streak artifact. Pulmonary arteries: Normal. No pulmonary emboli. Aorta: Negative for aneurysm or dissection. Mild plaque present in the aorta. Lungs: Bullous emphysema, severe in the lung apices. No significant consolidation or ground-glass opacity. Areas of atelectasis or scarring noted in the right middle lobe and lingula. No significant endobronchial mucus. Pleural spaces: Unremarkable. No pneumothorax. No pleural effusion. Heart: No cardiomegaly. No pericardial effusion. No significant coronary artery calcification. Lymph nodes: Unremarkable. No enlarged lymph nodes. Bones/joints: Unremarkable. No acute fracture. Soft tissues: Unremarkable. No large fluid collections are observed around the pacemaker or elsewhere in the chest wall. Other findings: Respiratory motion artifact. IMPRESSION: 1. Negative for pulmonary embolism. 2. Negative for aortic dissection. 3. No significant pneumonia. 4. No pneumothorax. 5. No specific chest wall hematoma. Dictated and Authenticated by: Jaime Devine MD. Ordering:THERON Saini MD
[2022-02-05 19:47] VITALS: BP 129/75; PULSE 92; RESP 18; TEMP 36.6; O2SAT 93
[2022-02-05] MEDS: Albuterol HFA 8 GM 60 PUFF INH IH (20:04)
--- NOTE | 2022-02-05 20:10 | NUR.NOTE ---
med rec done with transition of care report from [facility] Nursing Note:
--- NOTE | 2022-02-05 22:50 | NUR.NOTE ---
Referral to Care Management to put in an authorization for a ride home he received via RCT.Nursing Note:
--- NOTE | 2022-02-06 09:00 | CMACTNOTE_ITS ---
- If Service Date Differs Date of service: 02/06/22 Time of Service: 09:01 Care Management Activity Note William presents in the ED via EMS for shortness of breath. CM completes and faxes an RCT Authorization Form to [facility], as they transported William home following discharge.
== END 2022-02-05 20:03 | disposition home or self-care (01) ==
PROVIDERS: Emergency Provider Physician Assistant; PCP Nurse Practitioner Family
DX: J44.1 Chronic obstructive pulmonary disease with (acute) exacerbation (principal); Z95.0 Presence of cardiac pacemaker; R06.02 Shortness of breath; R51.9 Headache, unspecified
CPT/HCPCS: 36415; 71275; 80053; 87637; 93005; 96360; 99284; 99285; 70450; 71046; 83735; 84484; 85025; 93010; J3490; J7512; J7620

== ENCOUNTER 2022-02-18 04:41 | Outpatient (CLI) | payer MEDICARE, SELFPAY | END 2022-02-18 04:42 | disposition home or self-care (01) | LOC: LBO 04:41 | PROVIDERS: PCP Nurse Practitioner Family; Visit Provider Nurse Practitioner Psychiatric/Mental Health ==

== ENCOUNTER 2022-02-18 15:12 | Inpatient (IN) | payer MEDICARE, SELFPAY ==
[2022-02-18] VITALS (60 sets, daily range): BP systolic 115–162; BP diastolic 65–113; PULSE 89–111; RESP 5–40; TEMP 37.4–37.8; O2SAT 85–96
--- NOTE | 2022-02-18 15:00 | RT.EKG_ITS ---
APPROVED REPORT Exam: Resting ECG Reason for Exam: ALTERED MENTAL STATUS Patient Location: E HR:94 bpm ECG Measurements Heart Rate 94 AXIS MO 133 P 48 QRSd 145 QRS 221 QT 396 T 31 QTc 495 Conclusion Atrial-sensed ventricular-paced rhythm...ventricular pacing tracks p-waves Biventricular paced rhythm...non-simultaneous bi-vent pacing paced rhythm, normal axis, non ischemic
--- NOTE | 2022-02-18 15:45 | DI.CT_ITS ---
Exam(s) CT HEAD WO EXAM: CT HEAD WO CLINICAL HISTORY: ams, fall. TECHNIQUE: Imaging Protocol: Axial computed tomography images with coronal and sagittal reformatted images were created and reviewed COMPARISON: CT CT HEAD WO from 02/05/2022 FINDINGS: Ventricles and Extra axial spaces: Normal in size and morphology for the patient's age. Hemorrhage: None. Cerebral parenchyma: Normal. Midline shift: None. Brainstem/Cerebellum: Normal. Calvarium: Normal. Visualized Paranasal sinuses/Mastoids: Clear. Soft Tissues: Unremarkable. IMPRESSION: No acute intracranial process. RADIATION DOSE DELIVERED: 819.47mGy.cm Total DLP DATA REPOSITORY: All CT scans at this facility are submitted to the National Radiology Data Registry (NRDR) Dose Index Registry (DIR) with the [employer] (ACR). RADIATION OPTIMIZATION: All CT scans at this facility use at least one of these dose optimization te chniques: automated exposure control; mA and/or kV adjustment per patient size (includes targeted exa ms where dose is matched to clinical indication); or iterative reconstruction.
--- NOTE | 2022-02-18 15:59 | DI.RAD_ITS ---
Exam(s) XR CHEST 1V IN DI DEPT EXAM: XR CHEST 1V IN DI DEPT CLINICAL HISTORY: sob, relative hypoxia to 90% on room air TECHNIQUE: 2D digital imaging was performed. COMPARISON: CR,XR XR CHEST 2V PA LATERAL from 02/05/[address] CHEST PE CTA from 02/05/2022 FINDINGS: LUNGS: Emphysematous changes in the upper lobes. No infiltrate. No pleural abnormality seen. HEART: Normal. Pacemaker MEDIASTINUM: Normal. BONES: Unremarkable. IMPRESSION: No acute pulmonary findings. DATA REPOSITORY: RADIATION DOSE DELIVERED:
--- NOTE | 2022-02-18 16:00 | DI.CT_ITS ---
Exam(s) CT ABDOMEN PELVIS W EXAM: CT ABDOMEN PELVIS W CLINICAL HISTORY: abdominal pain, RUQ, hepatomegaly on exam TECHNIQUE: COMPARISON: CT CT CHEST PE CTA from 02/05/2022 FINDINGS: CT examination of the abdomen and pelvis was performed with bolus infusion of 100 cc of Omnipaque 350 . Images obtained through the lung bases are unremarkable. The liver appears normal with no evidence of a focal mass. Spleen is unremarkable in appearance.. Gallbladder and bile ducts are unremarkable. Pancreas is unremarkable in appearance. Adrenals appear normal bilaterally. Kidneys appear normal with no evidence of renal mass, hydronephrosis, or nephrolithiasis. Bladder is mildly distended. There is no evidence of abdominal or pelvic adenopathy. Abdominal aorta is of normal diameter and no abnormality is seen involving major visceral branches.. Appendix is normal. No evidence diverticulitis or bowel obstruction. Moderate quantity of fecal mate rial in the colon. No significant abdominal wall hernia seen. Tiny bilateral fat containing inguinal hernias noted. Impression: Negative CT examination of the abdomen and pelvis. RADIATION DOSE DELIVERED: 859.73mGy.cm Total DLP 859.73mGy.cm Total DLP !Error CTDIvol DATA REPOSITORY: All CT scans at this facility are submitted to the National Radiology Data Registry (NRDR) Dose Index Registry (DIR) with the [employer] (ACR). RADIATION OPTIMIZATION: All CT scans at this facility use at least one of these dose optimization te chniques: automated exposure control; mA and/or kV adjustment per patient size (includes targeted exa ms where dose is matched to clinical indication); or iterative reconstruction.
--- NOTE | 2022-02-18 16:04 | ED.GENADUL_ITS ---
Discharge Plan Disposition Patient Disposition: [facility] INPATIENT Condition: Improving Discharge Details Chief Complaint: AMS/LOC Clinical Impression: COPD (chronic obstructive pulmonary disease), Hypoxia Primary Care Provider: Lorrie Crespo ED Provider: Rodrigo Griffith Home Meds and New Rx's Prescriptions: No Action nitroglycerin 0.4 MG tablet, sublingual 0.4 mg Sublingual one every 5 mins. x3 Qty: 30 3RF quetiapine [Seroquel] 400 mg tablet 400 mg PO HS 0RF Rx Instructions: give with 100mg tablet for total of 500 mg fluticasone propion-salmeterol [Advair Diskus] 250-50 mcg/dose blister with device 1 inh inhalation BID 0RF hydrocodone-acetaminophen 5-325 mg tablet 1 tab PO TID PRN PRN (Reason: Pain) 0RF amitriptyline 25 mg tablet 25 mg PO QHS 0RF acetaminophen 325 mg capsule 325 mg PO TID PRN PRN (Reason: Pain) 0RF montelukast 10 mg tablet 10 mg PO DAILY 0RF bupropion HCl 300 mg tablet extended release 24 hr 300 mg PO QAM Qty: 10 0RF Label Comments: total dose 450 mg pravastatin 20 mg tablet 20 mg PO QHS Qty: 10 0RF bupropion HCl 150 mg tablet extended release 24 hr 150 mg PO QAM 0RF Label Comments: total dose 450 mg ipratropium-albuterol 0.5 mg-3 mg(2.5 mg base)/3 mL solution for nebulization 3 ml IH Q6H Qty: 90 0RF quetiapine 100 mg Tablet 100 mg PO QHS 0RF Rx Instructions: give with 400mg tablet for 500mg total pantoprazole 40 mg Tablet,Delayed Release (Dr/Ec) 40 mg PO DAILY@0730 Qty: 30 0RF albuterol sulfate 1.25 mg/3 mL solution for nebulization 1.25 mg inhalation QID PRN (Reason: shortness of breath or wheezing) Qty: 90 0RF amoxicillin-pot clavulanate [Augmentin] 875-125 mg tablet 1 tab PO BID Qty: 7 0RF clonazepam 1 mg tablet 1 mg PO BID 0RF Label Comments: Take 1 tablet by mouth twice a day gabapentin 600 mg Tablet 400 mg PO TID 0RF Trintellix 20 mg tablet 20 mg PO DAILY 0RF Label Comments: Take 1 tablet by mouth once a day Rx Instructions: stop clonazepam 1 mg Tablet 1 mg PO BID Qty: 40 0RF Spiriva Respimat 1.25 mcg/actuation mist 2 puff inhalation DAILY Qty: 4 0RF Rx Instructions: stop prednisone 20 mg tablet See Rx Instructions .ROUTE .COMPLEX Qty: 18 0RF Rx Instructions: Take 3 tabs daily for 3 days, then 2 tabs daily for 3 days, then 1 tab daily for 3 days. aspirin [Aspir-81] 81 mg Tablet,Delayed Release (Dr/Ec) 81 mg PO DIRECTED 0RF Rx Instructions: 08/07 & 08/08 benztropine 1 mg Tablet 1 mg PO HS 0RF furosemide 20 mg Tablet 20 mg PO PRN PRN0RF lithium carbonate 300 mg capsule 300 mg PO BID 0RF Label Comments: take 1 cap po bid metoprolol succinate 25 mg Tablet Extended Release 24 Hr 25 mg PO DAILY 0RF prazosin 1 mg Capsule 1 mg PO DAILY 0RF albuterol sulfate [ProAir HFA] 90 mcg/actuation Hfa Aerosol Inhaler 2 puff INHALATION DIRECTED 0RF spironolactone 25 mg Tablet 12.5 mg PO DAILY 0RF tamsulosin 0.4 mg Capsule 0.4 mg PO DAILY 0RF terazosin 2 mg Capsule 2 mg PO HS 0RF benztropine 1 mg tablet 0.5 mg PO HS 0RF Medical Decision Making 56-year-old male history of COPD, CHF, alcohol abuse, presents with altered mental status and possible falls, very poor historian, trails off during history and physical, is alert to self place and time however is unable to fill in details of the event surrounding today and yesterday, concern for alcohol abuse versus encephalopathy related to chronic alcohol abuse versus traumatic head injury such as intracranial bleed versus electrolyte abnormality versus i nfectious etiology such as viral syndrome versus COPD exacerbation with hypercarbia versus less likely ACS PE or aortic pathology, hepatomegaly likely related to cirrhosis, will obtain CT head CT abdomen pelvis labs tox screen, will provide fluid thiamine and folate, p.o. as patient endorses poor nutrition. Disposition pending reassessment and result 19: 48 patient desaturates to high 70s low 80s when ambulating, high 80s and low 90s at rest without nasal cannula, endorses that he is on 2 L nasal cannula at home, has run out of oxygen recently, will need admission for O2 as well as management of COPD exacerbation. Patient's mental status is greatly improved, now he is denying syncope earlier today. No mention of syncope in EMS report only report of change from baseline mental status per bystander/acquaintance. Hemodynamically stable. No acute distress at this time tolerating p.o. Maintaining airway. Normal respiratory effort. HPI General Date/Time Provider Initiated Documentation: 02/18/22 15:41 . HPI Narrative: 56-year-old male history of COPD prior visits for altered mental status, CHF diabetes, presents with altered mental status and multiple falls, patient is very poor historian endorses falling either today or yesterday, unclear whether he injured his head, denies drug or alcohol use however chart review does show a history of alcohol abuse, patient endorses bilateral leg cramping and some abdominal discomfort as well as mild shortness of breath Related Data Home Medications Medication Instructions Recorded Confirmed nitroglycerin 0.4 mg sublingual 0.4 mg SUBLINGUAL one every 5 07/27/17 07/19/21 tablet mins. x3 #30 tab-cap montelukast 10 mg tablet 10 mg PO DAILY 03/08/20 02/18/22 bupropion HCl 300 mg 24 hr tablet, 300 mg PO QAM #10 tab 03/17/20 02/18/22 extended release pravastatin 20 mg tablet 20 mg PO QHS #10 tab 03/17/20 02/18/22 bupropion HCl 150 mg 24 hr tablet, 150 mg PO QAM 01/21/21 02/18/22 extended release ipratropium 0.5 mg-albuterol 3 mg 3 ml IH Q6H #90 ml 01/28/21 02/18/22 (2.5 mg base)/3 mL nebulization soln acetaminophen 325 mg capsule 325 mg PO TID PRN PRN 02/18/21 02/18/22 amitriptyline 25 mg tablet 25 mg PO QHS tab 02/18/21 02/18/22 fluticasone 250 mcg-salmeterol 50 1 inh INHALATION BID 02/18/21 02/18/22 mcg/dose blistr powdr for inhalation (Advair Diskus) hydrocodone 5 mg-acetaminophen 325 1 tab PO TID PRN PRN 02/18/21 07/19/21 mg tablet quetiapine 400 mg tablet (Seroquel) 400 mg PO HS tab 02/18/21 02/18/22 quetiapine 100 mg tablet 100 mg PO QHS 04/29/21 02/18/22 albuterol sulfate 1.25 mg/3 mL 1.25 mg (3 mL) INHALATION QID PRN 05/01/21 07/19/21 solution for nebulization #90 ml pantoprazole 40 mg tablet,delayed 40 mg PO DAILY@0730 #30 tab 05/01/21 02/18/22 release tiotropium bromide 1.25 2 puff INHALATION DAILY #4 g 05/16/21 07/19/21 mcg/actuation mist for inhalation (Spiriva Respimat) amoxicillin 875 mg-potassium 1 tab PO BID #7 tab 06/10/21 clavulanate 125 mg tablet (Augmentin) clonazepam 1 mg tablet 1 mg PO BID 07/21/21 02/18/22 clonazepam 1 mg tablet 1 mg PO BID #40 tab 07/21/21 02/05/22 gabapentin 600 mg tablet 400 mg PO TID 07/21/21 02/18/22 vortioxetine 20 mg tablet 20 mg PO DAILY 07/21/21 02/18/22 (Trintellix) albuterol sulfate 90 mcg/actuation 2 puff INHALATION DIRECTED 02/05/22 02/18/22 aerosol inhaler (ProAir HFA) aspirin 81 mg tablet,delayed 81 mg PO DIRECTED 02/05/22 02/05/22 release benztropine 1 mg tablet 1 mg PO HS 02/05/22 02/05/22 furosemide 20 mg tablet 20 mg PO PRN PRN 02/05/22 02/05/22 lithium carbonate 300 mg capsule 300 mg PO BID 02/05/22 02/18/22 metoprolol succinate 25 mg 25 mg PO DAILY 02/05/22 02/05/22 tablet,extended release 24 hr prazosin 1 mg capsule 1 mg PO DAILY 02/05/22 02/05/22 prednisone 20 mg tablet See Rx Instructions .ROUTE 02/05/22 .COMPLEX #18 tab spironolactone 25 mg tablet 12.5 mg PO DAILY 02/05/22 02/05/22 tamsulosin 0.4 mg capsule 0.4 mg PO DAILY 02/05/22 02/05/22 terazosin 2 mg capsule 2 mg PO HS 02/05/22 02/05/22 benztropine 1 mg tablet 0.5 mg PO HS 02/18/22 02/18/22 Previous Rx's Medication Instructions Recorded nitroglycerin 0.4 mg sublingual 0.4 mg SUBLINGUAL one every 5 07/27/17 tablet mins. x3 #30 tab-cap bupropion HCl 300 mg 24 hr tablet, 300 mg PO QAM #10 tab 03/17/20 extended release pravastatin 20 mg tablet 20 mg PO QHS #10 tab 03/17/20 ipratropium 0.5 mg-albuterol 3 mg 3 ml IH Q6H #90 ml 01/28/21 (2.5 mg base)/3 mL nebulization soln albuterol sulfate 1.25 mg/3 mL 1.25 mg (3 mL) INHALATION QID PRN 05/01/21 solution for nebulization #90 ml pantoprazole 40 mg tablet,delayed 40 mg PO DAILY@0730 #30 tab 05/01/21 release tiotropium bromide 1.25 2 puff INHALATION DAILY #4 g 05/16/21 mcg/actuation mist for inhalation (Spiriva Respimat) amoxicillin 875 mg-potassium 1 tab PO BID #7 tab 06/10/21 clavulanate 125 mg tablet (Augmentin) clonazepam 1 mg tablet 1 mg PO BID #40 tab 07/21/21 prednisone 20 mg tablet See Rx Instructions .ROUTE 02/05/22 .COMPLEX #18 tab Allergies Allergy/AdvReac Type Severity Reaction Status Date / Time citalopram Allergy Unverified 07/19/21 20:47 oxycodone HCl [From Percocet] AdvReac Addiction Unverified 07/19/21 20:47 General Stated Complaint: AMS/LOC MOLLY: 3 Review of Systems Narrative: Review of Systems Constitutional: negative Eyes: negative ENT: negative Cardiovascular: negative Respiratory: Shortness of breath Gastrointestinal: negative : Abdominal pain Musculoskeletal: Cramping and leg Skin: negative Neurologic: negative Psych: negative PFSH All Active Problems (Updated 02/18/22 @ 19:53 by Rodrigo Griffith MD) Acute exacerbation of chronic obstructive pulmonary disease (Acute) COPD (chronic obstructive pulmonary disease) (Chronic) Hypoxia (Acute) Altered mental status (Acute) Ambulatory dysfunction (Acute) Adult failure to thrive (Acute) Bullae (Acute) Chronic respiratory failure with hypoxia (Acute) Cigarette smoker (Acute) Cognitive impairment (Chronic) Ambulatory dysfunction (Chronic) DVT prophylaxis (Acute) Current smoker (Acute) Lung bullae (Acute) Acute exacerbation of chronic obstructive pulmonary disease (Acute) Acute on chronic systolic CHF (congestive heart failure) (Acute) Musculoskeletal chest pain (Chronic) Lethargy (Acute) BPH (benign prostatic hyperplasia) (Chronic) Lung disease (Acute) Arthritis (Acute) COPD exacerbation (Acute) Noncompliance with medication regimen (Acute) Depression (Chronic) Generalized weakness (Acute) UTI (urinary tract infection) (Acute) Discharge planning issues (Acute) Polysubstance abuse (Chronic) Confusion (Acute) Auditory hallucination (Acute) Orthostatic hypotension (Acute) PTSD (post-traumatic stress disorder) (Chronic) Discharge planning issues (Acute) Ambulatory dysfunction (Acute) Dyspnea (Acute) COPD (chronic obstructive pulmonary disease) (Chronic) DVT prophylaxis (Acute) Left rib fracture (Acute) Rib fracture (Acute) Syncope (Chronic) Severe chronic obstructive pulmonary disease (Chronic) Biventricular implantable cardioverter-defibrillator (ICD) in situ (Chronic) Mode:DDD, Low rate 60bpm, Atrial lead: medtronic 5076, SN: [id number] 09/27/14; RV lead Medtronic 6935M SN: [id number] 09/27/14; LV lead Medtronic 4396, SN; [id number] 09/27/14 (updated 03/11/20) Systolic and diastolic CHF, chronic (Chronic) LBBB (left bundle branch block) (Chronic) Nonischemic dilated cardiomyopathy (Chronic) Medical History Acquired deformity of left hand Agoraphobia Anxiety Anxiety with depression Arthritis Biventricular implantable cardioverter-defibrillator (ICD) in situ Mode:DDD, Low rate 60bpm, Atrial lead: medtronic 5076, SN: [id number] 09/27/14; RV lead Medtronic 6935M SN: [id number] 09/27/14; LV lead Medtronic 4396, SN; TRACIE [id number] 09/27/14 (updated 03/11/20) BPH (benign prostatic hyperplasia) Cardiomyopathy Chest pain CHF (congestive heart failure) Chronic pain syndrome Cognitive impairment Cyst Depression Diabetes Diarrhea Dizziness Erectile dysfunction Fatigue Hallucination Hand paresthesia Heart disease History of alcohol abuse History of suicidal ideation History of tobacco abuse Hyperlipidemia Impacted ear wax LBBB (left bundle branch block) Lung disease Metacarpophalangeal joint pain Nonischemic dilated cardiomyopathy Pacemaker Pain in right hip Panic anxiety syndrome PTSD (post-traumatic stress disorder) Severe chronic obstructive pulmonary disease Skin lesion Systolic and diastolic CHF, chronic Tobacco use Surgical History Status post biventricular pacemaker Family History Mother , 2008 COPD (chronic obstructive pulmonary disease) Social History Smoking/Tobacco Use Status: Current every day Tobacco Type: cigarettes Smoking risk assessment performed?: Yes Alcohol Intake: former Drug use: Never Household members: none Pets and animals: No What type of physical activity do you participate in: none Seatbelt use: always Do you feel safe at home: Yes Do you feel safe in your relationship?: Yes Additional Social history: lives alone Exam Narrative Exam Narrative: Physical Examination General: Appears confused HEENT: normocephalic, atraumatic; PERRL, EOM intact, conjunctiva normal; no nasal discharge; moist mucous membranes, oral and pharyngeal mucosa normal, tolerating secretions Neck: supple, trachea midline; full ROM Chest: normal to inspection Respiratory: normal respiratory effort, speaking in full sentences, clear to auscultation, no wheezing, rales or rhonchi Cardiac: regular rate, regular rhythm, S1S2 intact, no murmurs rubs or gallops GI: Hepatomegaly noted on examination with tenderness to the epigastrium and right upper quadrant Skin: Slightly dry appearing Neuro: AAOx3, slow speech, trails off during history, no definitive aphasia, cranial nerves intact, strength upper and lower extremity 5 out of 5 intact Extremities: Soft compartments no bruising or trauma Psych: Slightly withdrawn Course Vital Signs Vital signs: Vital Signs Temperature 37.8 C H 02/18/22 15:13 Pulse 99 H 02/18/22 15:13 Respiratory Rate 20 02/18/22 15:13 Blood Pressure 153/89 H 02/18/22 15:13 Pulse Oximetry 90 L 02/18/22 15:13 Temperature 37.8 C H 02/18/22 15:13 Temperature Source Tympanic 02/18/22 15:13 Pulse 99 H 02/18/22 15:13 Respiratory Rate 20 02/18/22 15:13 Respiratory Effort Non-Labored 02/18/22 15:30 Respiratory Depth Normal 02/18/22 15:30 Respiratory Pattern Normal 02/18/22 15:30 Blood Pressure 153/89 H 02/18/22 15:13 Pulse Oximetry 90 L 02/18/22 15:13 Oxygen Delivery Method Room Air 02/18/22 15:13 Oxygen Flow Rate 0 02/18/22 15:13 Pain Level 8 02/18/22 15:13
[2022-02-18] MEDS: Normal Saline 500 ML 1000 ML IV (16:13)
[2022-02-18] MEDS: THIAMINE 100 MG in Normal Saline 100 ML 200 MG IVPB (16:13)
[2022-02-18] MEDS: Dexamethasone 10 MG/ML VIAL IVP (16:13)
[2022-02-18 16:17] LABS: Abs Immature Grans 0.04 10^3/uL (0.0-0.06); Absolute Basophil Count 0.08 10^3/uL (0.0-0.2); Absolute Lymphocyte Count 0.93 10^3/uL (1.2-3.4); Absolute Monocyte Count 0.95 10^3/uL (0.1-0.8); Absolute Neutrophil Count 7.35 10^3/uL (1.2-6.7); Basophils % 0.8; Eosinophils % 1.1; HCT 56.4 % (40.0-50.0); HGB 18.3 g/dL (13.5-17.5); Immature Grans % 0.4; Lymphocytes % 9.8; MCH 31.6 pg (27.0-33.0); MCHC 32.4 % (32.0-36.0); MCV 97.2 fL (80-95); MPV 11.1 fL (8.0-11.0); Monocytes % 10.1; Neutrophils % 77.8; Platelet Count 211 10^3/uL (130-400); RDW 14.4 % (11.8-14.1); RDW-SD 51.8 fL; WBC 9.45 10^3/uL (4.4-10.8)
[2022-02-18] MEDS: Folic Acid 1 MG TAB PO (16:18)
[2022-02-18 16:20] LABS: BE (Venous) 5 mmol/L (-2-3); HCO3 (Venous) 31 mmol/L (23-28); O2 Sat (Venous) 59 %; TCO2 (Venous) 27 mmol/L (24-29); pCO2 (Venous) 57 mmHg (41-51); pH (Venous) 7.35 (7.31-7.41); pO2 (Venous) 27 mmHg
[2022-02-18 16:29] LABS: Ammonia 12 umol/L (11-32)
[2022-02-18 16:32] LABS: PTT Activated 26.7 sec (21.0-27.5); Prothrombin Time 10.4 sec (9.3-11.0)
[2022-02-18 16:57] LABS: ALT 21 U/L (16-63); AST 14 U/L (15-37); Albumin 3.9 g/dL (3.4-5.0); Alkaline Phosphatase 89 U/L (46-116); Anion Gap 4.6 mmol/L (3-11); BUN 12 mg/dL (7-18); Bilirubin, Total 0.4 mg/dL (0.2-1.0); CO2 30.4 mmol/L (21.0-32.0); CREATININE 1.3 mg/dL (0.70-1.30); Calcium 9.1 mg/dL (8.5-10.1); Chloride 100 mmol/L (98-107); Creatine Kinase 47 U/L (39-308); Glucose 90 mg/dL (74-106); Lipase 24 U/L (73-393); Magnesium 3.5 mg/dL (1.8-2.4); NT-proBNP 151 pg/mL (<300); Potassium 4.8 mmol/L (3.5-5.1); Sodium 135 mmol/L (136-145); TSH (W/Ref FT4) 6.76 uIU/mL (0.36-3.74); Total Protein 7.5 g/dL (6.4-8.2); Troponin I < 50 ng/L (<or=60)
[2022-02-18 17:03] LABS: Salicylate 4.9 mg/dL (<2.8)
[2022-02-18 17:12] LABS: Acetaminophen < 2 ug/mL (10-30)
[2022-02-18 17:37] LABS: ETHANOL BLOOD < 3.0 mg/dL (<10); FREE T4 0.76 ng/dL (0.76-1.46)
[2022-02-18] MEDS: Omnipaque 350 MG/ML 100 ML BTL IJ (17:49)
[2022-02-18] MEDS: Normal Saline Flush 10 ML SYR IVP (17:50)
[2022-02-18 17:54] LABS: COVID-19 PCR Negative (Negative); Influenza A PCR Negative (Negative); Influenza B PCR Negative (Negative); RSV PCR Negative (Negative)
[2022-02-18] MEDS: Albuterol HFA 8 GM 60 PUFF INH IH (17:56)
[2022-02-18 17:57] LABS: Source Nasopharynx
[2022-02-18 18:05] LABS: Bilirubin Negative (Negative); Blood Negative (Negative); Clarity Clear (Clear); Glucose Negative (Negative); Ketones Negative (Negative); Leukocyte Esterase Negative (Negative); Nitrite Negative (Negative); Specific Gravity 1.015 (1.005-1.025); Urobilinogen 0.2 EU/dL (Up TO 0.2)
[2022-02-18 18:13] LABS: *AMPHETAMINES SCREEN URINE Negative (Negative); *BARBITURATES SCREEN URINE Negative (Negative); *BENZODIAZEPINES SCREEN URINE Negative (Negative); Cannabinoids THC Negative (Negative); Cocaine Screen,Urine Negative (Negative); METHADONE URINE SCREEN Negative (Negative); OPIATES URINE SCREEN Negative (Negative)
[2022-02-18 18:14] LABS: Tricyclic Antidepressants Positive (Negative)
--- NOTE | 2022-02-18 18:17 | DI.VRAD_ITS ---
PROCEDURE INFORMATION: Exam: CT Abdomen And Pelvis With Contrast Exam date and time: 02/18/2022 5:32 PM Age: 56 years old Clinical indication: Abdominal pain TECHNIQUE: Imaging protocol: Computed tomography of the abdomen and pelvis with contrast. Contrast volume: 100 ml; Contrast route: IV; COMPARISON: CT CHEST/ABD/PEL W 05/01/2020 11:04 PM FINDINGS: Tubes, catheters and devices: Pacemaker. Liver: Hepatomegaly. Gallbladder and bile ducts: Normal. No calcified stones. No ductal dilation. Pancreas: Normal. No ductal dilation. Spleen: Normal. No splenomegaly. Adrenal glands: Normal. No mass. Kidneys and ureters: Normal. No hydronephrosis. Stomach and bowel: Large amount of stool in the colon. Appendix: No evidence of appendicitis. Intraperitoneal space: Unremarkable. No free air. No significant fluid collection. Arteries: Vascular calcifications. No abdominal aortic aneurysm. Lymph nodes: Unremarkable. No enlarged lymph nodes. Urinary bladder: Distended urinary bladder. Reproductive: Unremarkable as visualized. Bones/joints: Unremarkable. No acute fracture. Soft tissues: Bilateral fat containing inguinal hernias. IMPRESSION: 1. Distended urinary bladder 2. Large amount of stool in the colon and other incidental findings as described Dictated and Authenticated by: Willa Trevizo MD. Ordering:TIFFANY Wallace MD
[2022-02-18] MEDS: Albuterol/Ipratropium 3 ML UPD VIAL 9 ML UPD (19:06)
[2022-02-18] MEDS: AZITHROMYCIN 500 MG in Normal Saline 250 ML 250 MG IVPB (20:00)
[2022-02-18 20:18] LABS: Troponin I < 50 ng/L (<or=60)
[2022-02-18 20:36] LABS: Lab Add On Test DONE
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
[2022-02-18] MEDS: cefTRIAXone 1 GM/50 ML BAG IVPB (21:37)
[2022-02-18] MEDS: guaiFENesin 600 MG TABCR PO (21:38)
[2022-02-18] MEDS: Albuterol/Ipratropium 3 ML UPD VIAL UPD (21:38)
[2022-02-18] MEDS: Enoxaparin 40 MG/0.4 ML SYR SC (21:38)
[2022-02-18 22:05] LABS: Procalcitonin < 0.1 ng/mL
[2022-02-18] MEDS: Docusate Sodium 100 MG CAP PO (22:40)
[2022-02-18] MEDS: clonazePAM 1 MG TAB PO (22:40)
[2022-02-18] MEDS: Polyethylene Glycol 3350 17 GM PACKET PO (22:40)
[2022-02-18] MEDS: Amitriptyline 25 MG TAB PO (22:40)
[2022-02-18 22:46] LABS: Lab Add On Test DONE
[2022-02-18 22:50] LABS: Lithium 0.9 mmol/l (0.6-1.2)
[2022-02-18] MEDS: Budesonide/Formoterol 80/4.5 6.9 GM 60 PUFF INH IH (23:21)
[2022-02-18] MEDS: QUEtiapine 100 MG TAB PO (23:22)
[2022-02-18] MEDS: Pravastatin 20 MG TAB PO (23:35)
[2022-02-18] MEDS: Lithium Carbonate 150 MG CAP 300 MG PO (23:35)
[2022-02-18] MEDS: Furosemide 20 MG/2 ML VIAL IVP (23:53)
[2022-02-19] VITALS (12 sets, daily range): BP systolic 96–126; BP diastolic 58–75; PULSE 74–99; RESP 2–23; TEMP 36.5–37.5; O2SAT 89–94
[2022-02-19] MEDS: Albuterol/Ipratropium 3 ML UPD VIAL UPD ×3 (02:41→13:46)
[2022-02-19] MEDS: Budesonide/Formoterol 80/4.5 6.9 GM 60 PUFF INH IH (07:00)
[2022-02-19 07:26] LABS: Abs Immature Grans 0.06 10^3/uL (0.0-0.06); Absolute Basophil Count 0.05 10^3/uL (0.0-0.2); Absolute Eosinophil Count 0.02 10^3/uL (0.0-0.7); Absolute Lymphocyte Count 0.78 10^3/uL (1.2-3.4); Absolute Monocyte Count 1.02 10^3/uL (0.1-0.8); Absolute Neutrophil Count 9.92 10^3/uL (1.2-6.7); Basophils % 0.4; Eosinophils % 0.2; HCT 51.9 % (40.0-50.0); HGB 16.9 g/dL (13.5-17.5); Immature Grans % 0.5; Lymphocytes % 6.6; MCH 31.5 pg (27.0-33.0); MCHC 32.6 % (32.0-36.0); MCV 96.6 fL (80-95); MPV 11.1 fL (8.0-11.0); Monocytes % 8.6; Neutrophils % 83.7; Platelet Count 199 10^3/uL (130-400); RBC 5.37 10^6/uL (4.36-5.78); RDW 14.4 % (11.8-14.1); RDW-SD 51.5 fL; WBC 11.85 10^3/uL (4.4-10.8)
[2022-02-19 07:34] LABS: Anion Gap 3.1 mmol/L (3-11); BUN 17 mg/dL (7-18); CO2 29.9 mmol/L (21.0-32.0); CREATININE 1.1 mg/dL (0.70-1.30); Chloride 104 mmol/L (98-107); Glucose 156 mg/dL (74-106); Magnesium 2.4 mg/dL (1.8-2.4); Potassium 3.7 mmol/L (3.5-5.1); Sodium 137 mmol/L (136-145)
[2022-02-19] MEDS: Polyethylene Glycol 3350 17 GM PACKET PO (08:37)
[2022-02-19] MEDS: guaiFENesin 600 MG TABCR PO (08:37)
[2022-02-19] MEDS: clonazePAM 1 MG TAB PO (08:38)
[2022-02-19] MEDS: Lithium Carbonate 300 MG CAP PO (08:38)
[2022-02-19] MEDS: Montelukast 10 MG TAB PO (08:38)
[2022-02-19] MEDS: Docusate Sodium 100 MG CAP PO (08:38)
[2022-02-19] MEDS: predniSONE 20 MG TAB 40 MG PO (08:38)
[2022-02-19] MEDS: Tamsulosin 0.4 MG CAPCR PO (08:38)
[2022-02-19] MEDS: Pantoprazole 40 MG TABCR PO (08:38)
[2022-02-19] MEDS: Normal Saline Flush 10 ML SYR IVP (08:38)
--- NOTE | 2022-02-19 10:49 | PT.INIE ---
Date of service: 02/19/22 Time of Service: 10:49 PT Notes Visit Reasons: Acute Exacerbation of COPD Inpatient Physical Therapy Evaluation Date: 02/19/22 Referring Doctor: Lore Lynne MD PT Orders: PT CONSULT: Limited ability Precautions: Fall. Standard. Activity as tolerated. Fall, standard Patient Profile/Admitting Diagnosis:? Patient is a 56-year-old male with COPD exacerbation, respiratory failure with ambulatory dysfunction, musculoskeletal chest pain, and cognitive impairment referred for physical therapy for mobility assessment and discharge planning recommendations. PMHX: All Active Problems?(Updated 02/18/22 @ 23:02 by Lore Lynne MD) Discharge planning issues (Acute) DVT prophylaxis (Acute) Musculoskeletal chest pain (Acute) Constipation (Acute) Urinary retention (Acute) Acute exacerbation of chronic obstructive pulmonary disease (Acute) COPD (chronic obstructive pulmonary disease) (Chronic) Hypoxia (Acute) Altered mental status (Acute) Ambulatory dysfunction (Acute) Adult failure to thrive (Acute) Bullae (Acute) Chronic respiratory failure with hypoxia (Acute) Cigarette smoker (Acute) Cognitive impairment (Chronic) Ambulatory dysfunction (Chronic) DVT prophylaxis (Acute) Current smoker (Acute) Lung bullae (Acute) Acute exacerbation of chronic obstructive pulmonary disease (Acute) Acute on chronic systolic CHF (congestive heart failure) (Acute) Musculoskeletal chest pain (Chronic) Lethargy (Acute) BPH (benign prostatic hyperplasia) (Chronic) Lung disease (Acute) Arthritis (Acute) COPD exacerbation (Acute) Noncompliance with medication regimen (Acute) Depression (Chronic) Generalized weakness (Acute) UTI (urinary tract infection) (Acute) Discharge planning issues (Acute) Polysubstance abuse (Chronic) Confusion (Acute) Auditory hallucination (Acute) Orthostatic hypotension (Acute) PTSD (post-traumatic stress disorder) (Chronic) Discharge planning issues (Acute) Ambulatory dysfunction (Acute) Dyspnea (Acute) COPD (chronic obstructive pulmonary disease) (Chronic) DVT prophylaxis (Acute) Left rib fracture (Acute) Rib fracture (Acute) Syncope (Chronic) Severe chronic obstructive pulmonary disease (Chronic) Biventricular implantable cardioverter-defibrillator (ICD) in situ (Chronic) Mode:DDD, Low rate 60bpm, Atrial lead: medtronic 5076, SN: [id number] 09/27/14; RV lead Medtronic 6935M SN: [id number] 09/27/14; LV lead Medtronic 4396, SN; TRACIE [id number] 09/27/14 (updated 03/11/20)Systolic and diastolic CHF, chronic (Chronic) LBBB (left bundle branch block) (Chronic) Nonischemic dilated cardiomyopathy (Chronic) Medical History Acquired deformity of left hand Agoraphobia Anxiety Anxiety with depression Arthritis Biventricular implantable cardioverter-defibrillator (ICD) in situ Mode:DDD, Low rate 60bpm, Atrial lead: medtronic 5076, SN: [id number] 09/27/14; RV lead Medtronic 6935M SN: TDL [id number] 09/27/14; LV lead Medtronic 4396, SN; TRACIE [id number] 09/27/14 (updated 03/11/20)BPH (benign prostatic hyperplasia) Cardiomyopathy Chest pain CHF (congestive heart failure) Chronic pain syndrome Cognitive impairment Cyst Depression Diabetes Diarrhea Dizziness Erectile dysfunction Fatigue Hallucination Hand paresthesia Heart disease History of alcohol abuse History of suicidal ideation History of tobacco abuse Hyperlipidemia Impacted ear wax LBBB (left bundle branch block) Lung disease Metacarpophalangeal joint pain Nonischemic dilated cardiomyopathy Pacemaker Pain in right hip Panic anxiety syndrome PTSD (post-traumatic stress disorder) Severe chronic obstructive pulmonary disease Skin lesion Systolic and diastolic CHF, chronic Tobacco use Surgical History? Status post biventricular pacemaker Social History/Home Situation: Patient lives alone in a two-level home with no steps to enter.? He receives assistance from[employer] multiple times per day.? He is disabled and no longer working.? States that he still has his walker that was given to him previously. No longer works. On disability. Equipment Owned/DME: [employer] Subjective:?? Agreeable to PT consult. States that he still feels some discomfort in his tummy of lesser intensity than on admission. Objective:? General Observation: Supine in bed. Telemetry monitoring in place. Mental Status: Alert and oriented x 3. Able to follow multiple step commands Pain: None reported ROM: Right Upper Extremity: Shoulder Flexion WFL. Shoulder abduction WFL. Elbow flexion WFL. Wrist flexion WFL. Functional opening and closing of hand WFL. Left Upper Extremity: Shoulder Flexion WFL. Shoulder abduction WFL. Elbow flexion WFL. Wrist flexion WFL. Functional opening and closing of hand WFL. Right Lower Extremity: Hip flexion WFL. Hip abduction WFL. Knee flexion WFL. Ankle dorsiflexion WFL. Ankle plantarflexion WFL. Left Lower Extremity: Hip flexion WFL. Hip abduction WFL. Knee flexion WFL. Ankle dorsiflexion WFL. Ankle plantarflexion WFL. Strength: Right Upper Extremity: Shoulder flexors 4/5. Shoulder abductors 4/5. Elbow flexors 5/5. Elbow extensors 5/5. Disassembler strong. Left Upper Extremity: Shoulder flexors 4/5. Shoulder abductors 4/5. Elbow flexors 5/5. Elbow extensors 5/5. Disassembler strong. Right Lower Extremity: Hip flexors 4/5. Hip abductors 4/5. Knee flexors 5/5. Knee extensors 4/5. Ankle dorsiflexors 4-/5. Ankle plantarflexors 4/5. Left Lower Extremity: Hip flexors 4/5. Hip abductors 4/5. Knee flexors 5/5. Knee extensors 4/5. Ankle dorsiflexors 4-/5. Ankle plantarflexors 4/5. Bed Mobility/Transfers: Supine?sit: supervision Sit?supine: supervision Sit?stand: stand by assist stand?sit: stand by assist Bed to chair: stand by assist Gait:?250 feet using front wheeled walker with standby assist. No loss of balance. Mild path deviation. No shortness of breath. Balance:? Static Sitting: Normal Dynamic Sitting: Normal Static Standing: Fair Dynamic Standing: Fair 4- stage balance test: Ablte to maintain feet together and semi-tandem but is unable to do so with full tandem and one-legged stance indicating 50% deficit with static standing balance. Special Tests: Mobility Limitations Standardized Measure [facility] 6 clicks Basic Mobility Inpatient Short Form: Raw Score: 23 ? CMS Score: 11% impairment ? ? ? Informed Consent/Education:? Patient instructed in purpose of PT consult and plan of care. Assessment:??Patient is a 56-year-old male with COPD exacerbation, respiratory failure with ambulatory dysfunction, musculoskeletal chest pain, and cognitive impairment referred for physical therapy for mobility assessment and discharge planning recommendations.? Patient presents with clinical signs and symptoms consistent with diminished functional mobility related to acute medical issues, as demonstrated by the following impairment level findings: 1.? Decreased balance 2.? Decreased lower extremity strength 3.? Decreased upper extremity strength Impairments are contributing to the following functional limitations: 1. Difficulty with ambulation without assistive device 2. Increased completion time for mobility ADL performance 3. Increased risk for falls Patient is assessed as a 47360 moderate complexity based on the following: History: 56-year-old male with past medical history as indicated above Examination: Demonstrable impairment in strength, balance, and mobility level with underlying impairments and functional limitations as exhibited above as well as deficit score of 11% utilizing the [facility] Mobility Inpatient Short Form Presentation: Evolving Decision Makin moderate complexity Goals: Goals X1 week 1. Supine-Sit: Independent 2. Sit-Supine: Independent 3. Sit-Stand: Independent 4. Stand-Sit: Independent 5. Bed-Chair: Independent with use of FWW 6. Chair-Bed: Independent with the use of FWW 7. Gait: Supervision x200 feet with FWW 8. Stairs: Supervision on therapeutic stairs x5 9. Independent with home exercise program Plan of Care/Treatment Plan: 1-2x/day, 7 days/week x 1 week. Plan of care has been reviewed with the GUIDANCE CONSULTANT providing the service under Physical Therapy direction. Initiate Physical Therapy intervention for strengthening, bed mobility, transfers, gait, stairs, balance training, use of assistive device. DISCHARGE RECOMMENDATIONS: [] Home with no services [] [X] Home with services. Home when medically cleared by hospitalist. Patient will benefit from home health PT services in order to progress mobility level using least restrictive assistive ambulatory device, assess home safety, identify additional equipment needs, and establish a functional maintenance program that will increase ability of patient to remain at home. [] Home with outpatient PT [] [] SNF for continued rehabilitation [] [] [facility] [] [] SNF versus LTC based on ability to participate and progress [] TREATMENT CODE/TIME: 36536 x 23 minutes beginning at 10:49 AM. Thank you for the opportunity to participate in the care of this patient. Valentine Tavera PT, DPT, CLT [facility] [place], [place]
--- NOTE | 2022-02-19 11:34 | INITIAL_ITS ---
- If Service Date Differs Date of service: 02/19/22 Time of Service: 11:34 Care Management Initial Assess REASON FOR HOSPITALIZATION:: Acute Exacerbation of COPD PAST MEDICAL HISTORY/PAST SURGICAL HISTORY:: All Active Problems. Discharge planning issues (Acute). DVT prophylaxis (Acute). Musculoskeletal chest pain (Acute). Constipation (Acute). Urinary retention (Acute). Acute exacerbation of chronic obstructive pulmonary disease (Acute). COPD (chronic obstructive pulmonary disease) (Chronic). Hypoxia (Acute). Altered mental status (Acute). Ambulatory dysfunction (Acute). Adult failure to thrive (Acute). Bullae (Acute). Chronic respiratory failure with hypoxia (Acute). Cigarette smoker (Acute). Cognitive impairment (Chronic). Ambulatory dysfunction (Chronic). DVT prophylaxis (Acute). Current smoker (Acute). Lung bullae (Acute). Acute exacerbation of chronic obstructive pulmonary disease (Acute). Acute on chronic systolic CHF (congestive heart failure) (Acute). Musculoskeletal chest pain (Chronic). Lethargy (Acute). BPH (benign prostatic hyperplasia) (Chronic). Lung disease (Acute). Arthritis (Acute). COPD exacerbation (Acute). Noncompliance with medication regimen (Acute). Depression (Chronic). Generalized weakness (Acute). UTI (urinary tract infection) (Acute). Discharge planning issues (Acute). Polysubstance abuse (Chronic). Confusion (Acute). Auditory hallucination (Acute). Orthostatic hypotension (Acute). PTSD (post- traumatic stress disorder) (Chronic). Discharge planning issues (Acute). Ambulatory dysfunction (Acute). Dyspnea (Acute). COPD (chronic obstructive pulmonary disease) (Chronic). DVT prophylaxis (Acute). Left rib fracture (Acute). Rib fracture (Acute). Syncope (Chronic). Severe chronic obstructive pulmonary disease (Chronic). Biventricular implantable cardioverter-de fibrillator (ICD) in situ (Chronic). Mode:DDD, Low rate 60bpm, Atrial lead: medtronic 5076, SN: [id number] 09/27/14; RV lead Medtronic 6935M SN: TDL [id number] 09/27/14; LV lead Medtronic 4396, SN; TRACIE [id number] 09/27/14 (updated 03/11/20). Systolic and diastolic CHF, chronic (Chronic). LBBB (left bundle branch block) (Chronic). Nonischemic dilated cardiomyopathy (Chronic). Medical History. Acquired deformity of left hand. Agoraphobia. Anxiety. Anxiety with depression. Arthritis. Biventricular implantable cardioverter-defibrillator (ICD) in situ. Mode:DDD, Low rate 60bpm, Atrial lead: medtronic 5076, SN: [id number] 09/27/14; RV lead Medtronic 6935M SN: TDL [id number] 09/27/14; LV lead Medtronic 4396, SN; TRACIE [id number] 09/27/14 (updated 03/11/20). BPH (benign prostatic hyperplasia). Cardiomyopathy. Chest pain. CHF (congestive heart failure). Chronic pain syndrome. Cognitive impairment. Cyst. Depression. Diabetes. Diarrhea. Dizziness. Erectile dysfunction. Fatigue. Hallucination. Hand paresthesia. Heart disease. History of alcohol abuse. History of suicidal ideation. History of tobacco abuse. Hyperlipidemia. Impacted ear wax. LBBB (left bundle branch block). Lung disease. Metacarpophalangeal joint pain. Nonischemic dilated cardiomyopathy. Pacemaker. Pain in right hip. Panic anxiety syndrome. PTSD (post-traumatic stress disorder). Severe chronic obstructive pulmonary disease. Skin lesion. Systolic and diastolic CHF, chronic. Tobacco use. Surgical History. Status post biventricular pacemaker PREVIOUS FUNCTIONAL STATUS/SOCIAL/FAMILY SUPPORTS:: William lives alone in a two story house in [place]. He is disabled and spends his time fishing, hunting, and woodworking. William reports he is independent with his ADLs and drives. CURRENT FUNCTIONAL STATUS:: William was sitting up in bed when CM met with him. He stated that he is feeling good, and that things at home are going well. Per provider, he is doing well medically, and worked well with PT, therefore he will likely be discharged home today. CM will help coordinate a ride home via [facility]. CM talked to his block and case maker, Joy with [employer], who stated that his medications will be delivered to his house tomorrow morning. He will have PT, which will start within [address], [address] [facility] was not notified until after hours. CM will continue to follow. ADVANCE DIRECTIVES:: Not on file. Has patient been provided with info about the portal/API?: Yes Did the patient sign up for the portal?: No CODE STATUS:: Full Code INSURANCE COVERAGE / FINANCIAL ISSUES:: [facility] CURRENT HOME/COMMUNITY SERVICES/EQUIPMENT:: [employer] supports through [facility]. PRIMARY CARE PHYSICIAN:: Lorrie Crespo POTENTIAL DISCHARGE NEEDS:: Evaluations for further needs, follow up appointments. PATIENT/FAMILY EDUCATION NEEDS:: Review discharge instructions, discussion of self care needs including ask me three and goals of care. ANTICIPATED BARRIERS TO DISCHARGE:: None identified. TRANSPORTATION:: Via [facility] vs. private vehicle with friend PLAN:: Anticipate William will return home once medically cleared by MD with new orders for HH PT. He will be driven home via [facility] vs private vehicle with a friend. He will follow up with his PCP and discharge plan of care. CM will continue to follow.
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
--- NOTE | 2022-02-19 16:04 | PDOC.HHF2F_ITS ---
Home Health Certification Home Health Certification: 1. Encounter Date and Reason I certify that William Gay was seen by Christie Sanchez NP on 02/19/22 and that I had a [id number] encounter with this patient that meets the physician face to face encounter requirements. 2. Clinical Findings Supporting Skilled Need and Homebound Status I certify that home health services are medically necessary, include either intermittent shelter and/or physical/speech therapy, and that this patient is homebound in that absences from the home require considerable and taxing effort and are infrequent or of short duration, or are attributable to the need to receive medical care. [X] (a) Attached documentation from encounter provides clinical findings supporting skilled need and homebound status (including what assistance patient requires to leave the home). The encounter with the patient was in whole, or in part, for the following medical condition, which is the primary reason for home health care: Acute Exacerbation of COPD Custodial: Physical Therapy: Patient will benefit from home health PT services in order to progress mobility level using least restrictive assistive ambulatory device, assess home safety, identify additional equipment needs, and establish a functional maintenance program that will increase ability of patient to remain at home. Speech Therapy: Homebound: It is difficult for him to leave his home and he typically cannot do so. Patient is homebound due to inability to ambulate for more than a few minutes or a few feet without becoming acutely SOB; he must stop to sit and rest every few minutes. He also has poor balance and extreme fatigue/weakness; he has an unsafe gait pattern and cardiopulmonary disease exacerbation. 3. Certification and Authentication I certify that I composed the above information based on my clinical judgement r elating to this patient's medical condition and, if applicable, clinical findings communicated to me by the NPP or inpatient physician who performed the Home Health Referral. All further orders will be obtained through Lorrie Crespo APRN (Community Based Physician - PCP)
--- NOTE | 2022-02-19 18:00 | PT.INDS ---
Date of service: 02/19/22 PT Notes Visit Reasons: Acute Exacerbation of COPD Physical Therapy Inpatient Discharge Summary Date: 02/19/22 Dates of Service: 02/19/2022 only This is a clinical summary of care provided for the duration of dates listed above. No charge was made in the completion of this documentation. Referring Doctor: Lore Lynne MD PT Orders: PT CONSULT: Limited ability Precautions: Fall.? Standard.? Activity as tolerated.? Patient Profile/Admitting Diagnosis:? Patient is a 56-year-old male with COPD exacerbation, respiratory failure with ambulatory dysfunction, musculoskeletal chest pain, and cognitive impairment referred for physical therapy for mobility assessment and discharge planning recommendations. PMHX: All Active Problems?(Updated 02/18/22 @ 23:02 by Lore Lynne MD) Discharge planning issues (Acute) DVT prophylaxis (Acute) Musculoskeletal chest pain (Acute) Constipation (Acute) Urinary retention (Acute) Acute exacerbation of chronic obstructive pulmonary disease (Acute) COPD (chronic obstructive pulmonary disease) (Chronic) Hypoxia (Acute) Altered mental status (Acute) Ambulatory dysfunction (Acute) Adult failure to thrive (Acute) Bullae (Acute) Chronic respiratory failure with hypoxia (Acute) Cigarette smoker (Acute) Cognitive impairment (Chronic) Ambulatory dysfunction (Chronic) DVT prophylaxis (Acute) Current smoker (Acute) Lung bullae (Acute) Acute exacerbation of chronic obstructive pulmonary disease (Acute) Acute on chronic systolic CHF (congestive heart failure) (Acute) Musculoskeletal chest pain (Chronic) Lethargy (Acute) BPH (benign prostatic hyperplasia) (Chronic) Lung disease (Acute) Arthritis (Acute) COPD exacerbation (Acute) Noncompliance with medication regimen (Acute) Depression (Chronic) Generalized weakness (Acute) UTI (urinary tract infection) (Acute) Discharge planning issues (Acute) Polysubstance abuse (Chronic) Confusion (Acute) Auditory hallucination (Acute) Orthostatic hypotension (Acute) PTSD (post-traumatic stress disorder) (Chronic) Discharge planning issues (Acute) Ambulatory dysfunction (Acute) Dyspnea (Acute) COPD (chronic obstructive pulmonary disease) (Chronic) DVT prophylaxis (Acute) Left rib fracture (Acute) Rib fracture (Acute) Syncope (Chronic) Severe chronic obstructive pulmonary disease (Chronic) Biventricular implantable cardioverter-defibrillator (ICD) in situ (Chronic) Mode:DDD, Low rate 60bpm, Atrial lead: medtronic 5076, SN: [id number] 09/27/14; RV lead Medtronic 6935M SN: [id number] 09/27/14; LV lead Medtronic 4396, SN; [id number] 09/27/14 (updated 03/11/20)Systolic and diastolic CHF, chronic (Chronic) LBBB (left bundle branch block) (Chronic) Nonischemic dilated cardiomyopathy (Chronic) Medical History Acquired deformity of left hand Agoraphobia Anxiety Anxiety with depression Arthritis Biventricular implantable cardioverter-defibrillator (ICD) in situ Mode:DDD, Low rate 60bpm, Atrial lead: medtronic 5076, SN: [id number] 09/27/14; RV lead Medtronic 6935M SN: [id number] 09/27/14; LV lead Medtronic 4396, SN; TRACIE [id number] 09/27/14 (updated 03/11/20)BPH (benign prostatic hyperplasia) Cardiomyopathy Chest pain CHF (congestive heart failure) Chronic pain syndrome Cognitive impairment Cyst Depression Diabetes Diarrhea Dizziness Erectile dysfunction Fatigue Hallucination Hand paresthesia Heart disease History of alcohol abuse History of suicidal ideation History of tobacco abuse Hyperlipidemia Impacted ear wax LBBB (left bundle branch block) Lung disease Metacarpophalangeal joint pain Nonischemic dilated cardiomyopathy Pacemaker Pain in right hip Panic anxiety syndrome PTSD (post-traumatic stress disorder) Severe chronic obstructive pulmonary disease Skin lesion Systolic and diastolic CHF, chronic Tobacco use Surgical History? Status post biventricular pacemaker Social History/Home Situation: Patient lives alone in a two-level home with no steps to enter.? He receives assistance fromReissued multiple times per day.? He is disabled and no longer working.? States that he still has his walker that was given to him previously. No longer works.? On disability. Equipment Owned/DME: [facility] Subjective:?? NT. See most recent TRIAL CONSULTANT notes. Objective:? General Observation: NT. See most recent TRIAL CONSULTANT notes. Mental Status: NT. See most recent TRIAL CONSULTANT notes. Pain: NT. See most recent TRIAL CONSULTANT notes. ROM: Right Upper Extremity: ? Shoulder Flexion WFL. Shoulder abduction WFL. Elbow flexion WFL. Wrist flexion WFL. Functional opening and closing of hand WFL. Left Upper Extremity:? Shoulder Flexion WFL. Shoulder abduction WFL. Elbow flexion WFL. Wrist flexion WFL. Functional opening and closing of hand WFL. Right Lower Extremity: Hip flexion WFL. Hip abduction WFL. Knee flexion WFL. Ankle dorsiflexion WFL. Ankle plantarflexion WFL. Left Lower Extremity: Hip flexion WFL. Hip abduction WFL. Knee flexion WFL. Ankle dorsiflexion WFL. Ankle plantarflexion WFL. Strength: Right Upper Extremity: Shoulder flexors 4/5. Shoulder abductors 4/5. Elbow flexors 5/5. Elbow extensors 5/5. Service Liaison Representative strong. Left Upper Extremity: Shoulder flexors 4/5. Shoulder abductors 4/5. Elbow flexors 5/5. Elbow extensors 5/5. Service Liaison Representative strong. Right Lower Extremity: Hip flexors 4/5. Hip abductors 4/5. Knee flexors 5/5. Knee extensors 4/5. Ankle dorsiflexors 4-/5. Ankle plantarflexors 4/5. Left Lower Extremity: Hip flexors 4/5. Hip abductors 4/5. Knee flexors 5/5. Knee extensors 4/5. Ankle dorsiflexors 4-/5. Ankle plantarflexors 4/5. Bed Mobility/Transfers: Supine?sit: supervision Sit?supine: supervision Sit?stand: stand by assist stand?sit: stand by assist Bed to chair: stand by assist Gait:?250 feet using front wheeled walker with standby assist.? No loss of balance.? Mild path deviation.? No shortness of breath. Balance:? Static Sitting: Normal Dynamic Sitting: Normal Static Standing: Fair Dynamic Standing: Fair 4- stage balance test: Able to maintain feet together and semi-tandem but is unable to do so with full tandem and one-legged stance indicating 50% deficit with static standing balance. Assessment:??Patient is a 56-year-old male with COPD exacerbation, respiratory failure with ambulatory dysfunction, musculoskeletal chest pain, and cognitive impairment referred for physical therapy for mobility assessment and discharge planning recommendations.? Patient presents with clinical signs and symptoms consistent with diminished functional mobility related to acute medical issues, as demonstrated by the following impairment level findings: 1.? Decreased balance 2.? Decreased lower extremity strength 3.? Decreased upper extremity strength Impairments are contributing to the following functional limitations: 1.? Difficulty with ambulation without assistive device 2.? Increased completion time for mobility ADL performance 3.? Increased risk for falls Goals: Goals X1 week 1. Supine-Sit: Independent NOT MET 2. Sit-Supine: Independent NOT MET 3. Sit-Stand: Independent NOT MET 4. Stand-Sit: Independent NOT MET 5. Bed-Chair: Independent with use of FWW NOT MET 6. Chair-Bed: Independent with the use of FWW NOT MET 7. Gait: Supervision x200 feet with FWW NOT MET 8. Stairs: Supervision on therapeutic stairs x 5 NOT MET 9. Independent with home exercise program NOT MET DISCHARGE RECOMMENDATIONS: [] ? Home with no services [] [X] ? Home with services.? Home when medically cleared by hospitalist.? Patient will benefit from home health PT services in order to progress mobility level using least restrictive assistive ambulatory device, assess home safety, identify additional equipment needs, and establish a functional maintenance program that will increase ability of patient to remain at home. [] ? Home with outpatient PT [] [] ? SNF for continued rehabilitation [] [] ? Long-Term Care [] [] ? SNF versus LTC based on ability to participate and progress [] TREATMENT CODE/TIME: DE Thank you for the opportunity to participate in the care of this patient. Valentine Tavera PT, DPT, CLT [facility] [place], [place]
== END 2022-02-19 17:30 | disposition home or self-care (01) | DRG 191 ==
LOC: ER 19:59 → MS 20:53
PROVIDERS: Admitting Provider Internal Medicine; Emergency Provider Emergency Medicine; PCP Nurse Practitioner Family; Visit Provider Internal Medicine
DX: J44.1 Chronic obstructive pulmonary disease with (acute) exacerbation (principal); J96.11 Chronic respiratory failure with hypoxia; I42.0 Dilated cardiomyopathy; I50.42 Chronic combined systolic (congestive) and diastolic (congestive) heart failure; R33.9 Retention of urine, unspecified; K59.00 Constipation, unspecified; R07.89 Other chest pain; R41.89 Other symptoms and signs involving cognitive functions and awareness; Z99.81 Dependence on supplemental oxygen; Z95.810 Presence of automatic (implantable) cardiac defibrillator; F32.A Depression, unspecified; F43.10 Post-traumatic stress disorder, unspecified; W10.9XXA Fall (on) (from) unspecified stairs and steps, initial encounter; F17.210 Nicotine dependence, cigarettes, uncomplicated; N40.0 Benign prostatic hyperplasia without lower urinary tract symptoms; I44.7 Left bundle-branch block, unspecified; E11.9 Type 2 diabetes mellitus without complications; F41.0 Panic disorder [episodic paroxysmal anxiety]; R26.2 Difficulty in walking, not elsewhere classified; F10.11 Alcohol abuse, in remission
CPT/HCPCS: 36415; 80048; 80053; 80307; 82550; 82805; 83690; 84145; 87637; 93005; 94640; 96361; 96365; 96367; 96375; 97162; 99285; J1650; 70450; 71045; 74177; 80178; 80320; 80329; 81003; 82140; 83735; 83880; 84439; 84443; 84484; 85025; 85610; 85730; 93010; 99223; J0456; J0696; J1100; J1941; J3490; J7512; J7620

== ENCOUNTER 2022-02-20 20:12 | Inpatient (IN) | payer MEDICARE, SELFPAY ==
[2022-02-20] VITALS (18 sets, daily range): BP systolic 125–154; BP diastolic 56–81; PULSE 89–190; RESP 4–25; TEMP 37.2–37.3; O2SAT 87–97
--- NOTE | 2022-02-20 20:15 | RT.EKG_ITS ---
APPROVED REPORT Exam: Resting ECG Reason for Exam: cough, SOB, COPD Patient Location: E HR:94 bpm ECG Measurements Heart Rate 94 AXIS IA 145 P 71 QRSd 124 QRS 253 QT 376 T 61 QTc 471 Conclusion Atrial-sensed ventricular-paced rhythm...ventricular pacing tracks p-waves Biventricular paced rhythm...non-simultaneous bi-vent pacing
--- NOTE | 2022-02-20 20:15 | DI.RAD_ITS ---
Exam(s) XR PORTABLE CHEST AP EXAM: XR PORTABLE CHEST AP CLINICAL HISTORY: SOB COPD TECHNIQUE: 2D digital imaging was performed. COMPARISON: CR XR CHEST 1V IN DI DEPT from 02/18/2022 FINDINGS: The heart size is normal. A pacemaker is again noted. Emphysematous changes in the upper lobes. No focal infiltrate, effusion or pulmonary edema.. IMPRESSION: No acute pulmonary findings. DATA REPOSITORY: RADIATION DOSE DELIVERED:
--- NOTE | 2022-02-20 20:31 | ED.GENADUL_ITS ---
Discharge Plan Disposition Patient Disposition: [facility] INPATIENT Condition: Stable Discharge Details Clinical Impression: COPD exacerbation Admit Date/Time: 02/20/22 21:33 Admit Provider: Eb Khan Attending Provider: Eb hKan Primary Care Provider: Lorrie Crespo ED Provider: Jesus Wooten Discharge Data Discharge Date/Time-TO BE ENTERED AT DEPARTURE: 02/20/22 22:34 Medical Decision Making This is a 56-year-old male who presents from home. He has a history of COPD, states to me no oxygen at home, as well as CHF s/p AICD (last known EF was 45- 50% by echo in 02/2020). The patient was admitted for COPD exacerbation 2 days ago with discharge yesterday. At that time his COVID/RSV/flu was negative. He was discharged home with prednisone. He states after being home he did have some cigarettes and does have and wood heat in the house. He states he did feel better when he left the hospital but was certainly seem to worsen over the course of the day at home. The patient was brought by EMS and given DuoNeb updraft and 125 mg of Solu- Medrol on route to the ER. Patient arrives tachypneic, at rest he will desaturate to 92% on room air. He states that he has had increased exertional intolerance over the course of the day today. His lungs are diminished with expiratory wheezes throughout. Records reviewed and note normal BNP on laboratories obtained February 18. Also noted negative flu/COVID/RSV. Patient placed on a registered nurse cardiac telemetry, IV access established. Screening EKG obtained he is referred for repeat COVID testing, chest x-ray and laboratories. Chest x-ray without focal infiltrate, please see the formal report. Laboratories: Previously noted hemoconcentration with hemoglobin 19, hematocrit 7. White blood cell count of 10 and platelets 225. Chemistries reassuring, troponin negative, fluid panel pending. Given the patient's deterioration at home today, his recurrent need for supplemental oxygen, and inability to tolerate exertion without desaturation, I will discuss admission with the hospitalist service. HPI General Mode of arrival: ambulatory . Date/Time Provider Initiated Documentation: 02/20/22 20:12 . Limitations to Documentation: no limitations . Information obtained by: patient . History of Present Illness 56 year old M presents to the emergency department with the chief complaint of Discharge yesterday, ongoing and worsening shortness of breath at home, described as moderate, and is localized to the chest. Patient reports no radiation. Patient started experiencing this day(s) and it has been constant. improves with Rest improves symptom(s), Movement worsens symptoms . Patient notes cough and shortness of breath; denies syncope. Patient did receive the following treatments prior to arrival, none Related Data Home Medications Medication Instructions Recorded Confirmed montelukast 10 mg tablet 10 mg PO DAILY 03/08/20 02/21/22 bupropion HCl 300 mg 24 hr tablet, 300 mg PO QAM #10 tab 03/17/20 02/21/22 extended release pravastatin 20 mg tablet 20 mg PO QHS #10 tab 03/17/20 02/20/22 bupropion HCl 150 mg 24 hr tablet, 150 mg PO QAM 01/21/21 02/21/22 extended release acetaminophen 325 mg capsule 325 mg PO DAILY PRN PRN 02/18/21 02/20/22 amitriptyline 25 mg tablet 25 mg PO QHS tab 02/18/21 02/20/22 fluticasone 250 mcg-salmeterol 50 1 inh INHALATION BID 02/18/21 02/20/22 mcg/dose blistr powdr for inhalation (Advair Diskus) quetiapine 400 mg tablet (Seroquel) 400 mg PO HS tab 02/18/21 02/20/22 quetiapine 100 mg tablet 100 mg PO HS 04/29/21 02/20/22 pantoprazole 40 mg tablet,delayed 40 mg PO DAILY@0730 #30 tab 05/01/21 02/21/22 release clonazepam 1 mg tablet 1 mg PO BID 07/21/21 02/20/22 albuterol sulfate 90 mcg/actuation 2 puff INHALATION DIRECTED PRN 02/05/22 02/20/22 aerosol inhaler (ProAir HFA) lithium carbonate 300 mg capsule 300 mg PO BID 02/05/22 02/20/22 docusate sodium 100 mg capsule 100 mg PO DAILY #30 cap 02/19/22 02/21/22 (Colace) gabapentin 400 mg capsule 400 mg PO TID 02/19/22 02/21/22 ipratropium 0.5 mg-albuterol 3 mg 3 ml INHALATION Q6H PRN PRN 02/19/22 02/20/22 (2.5 mg base)/3 mL nebulization soln nitroglycerin 0.3 mg sublingual 0.3 mg SUBLINGUAL Q5-15M PRN 02/19/22 02/21/22 tablet polyethylene glycol 3350 17 gram 17 g PO DAILY #30 ea 02/19/22 02/20/22 oral powder packet prednisone 20 mg tablet 40 mg PO DAILY #4 tab 02/19/22 02/21/22 tamsulosin 0.4 mg capsule 0.4 mg PO DAILY #30 cap 02/19/22 02/21/22 benztropine 0.5 mg tablet 0.5 mg PO HS 02/21/22 02/21/22 naloxone 4 mg/actuation nasal 4 mg INTRANASAL PRN PRN 02/21/22 02/21/22 spray (Narcan) nicotine 10 mg inhalation 1 inh INHALATION UD MDD 16 02/21/22 02/21/22 cartridge (Nicotrol) Previous Rx's Medication Instructions Recorded bupropion HCl 300 mg 24 hr tablet, 300 mg PO QAM #10 tab 03/17/20 extended release pravastatin 20 mg tablet 20 mg PO QHS #10 tab 03/17/20 pantoprazole 40 mg tablet,delayed 40 mg PO DAILY@0730 #30 tab 05/01/21 release docusate sodium 100 mg capsule 100 mg PO DAILY #30 cap 02/19/22 (Colace) polyethylene glycol 3350 17 gram 17 g PO DAILY #30 ea 02/19/22 oral powder packet prednisone 20 mg tablet 40 mg PO DAILY #4 tab 02/19/22 tamsulosin 0.4 mg capsule 0.4 mg PO DAILY #30 cap 02/19/22 Allergies Allergy/AdvReac Type Severity Reaction Status Date / Time No Known Allergies Allergy Unverified 02/20/22 22:19 General Stated Complaint: SOB MOLLY: 3 Review of Systems Narrative: No vomiting. States he has chest tightness with exertion and increasing shortness of breath with exertion. Negative COVID test on the . systems were reviewed and otherwise negative. PFSH All Active Problems (Updated 02/21/22 @ 17:37 by Pham Ngo NP) COPD exacerbation (Acute) COPD (chronic obstructive pulmonary disease) (Chronic) Altered mental status (Acute) Ambulatory dysfunction (Acute) Adult failure to thrive (Acute) Bullae (Acute) Cigarette smoker (Acute) Cognitive impairment (Chronic) Ambulatory dysfunction (Chronic) DVT prophylaxis (Acute) Current smoker (Acute) Lung bullae (Acute) Acute exacerbation of chronic obstructive pulmonary disease (Acute) Acute on chronic systolic CHF (congestive heart failure) (Acute) Musculoskeletal chest pain (Chronic) Lethargy (Acute) BPH (benign prostatic hyperplasia) (Chronic) Lung disease (Acute) Arthritis (Acute) COPD exacerbation (Acute) Noncompliance with medication regimen (Acute) Depression (Chronic) Generalized weakness (Acute) UTI (urinary tract infection) (Acute) Discharge planning issues (Acute) Polysubstance abuse (Chronic) Confusion (Acute) Auditory hallucination (Chronic) Orthostatic hypotension (Acute) PTSD (post-traumatic stress disorder) (Chronic) Discharge planning issues (Acute) Ambulatory dysfunction (Acute) Dyspnea (Acute) COPD (chronic obstructive pulmonary disease) (Chronic) DVT prophylaxis (Acute) Left rib fracture (Acute) Rib fracture (Acute) Syncope (Chronic) Severe chronic obstructive pulmonary disease (Chronic) Biventricular implantable cardioverter-defibrillator (ICD) in situ (Chronic) Mode:DDD, Low rate 60bpm, Atrial lead: medtronic 5076, SN: [id number] 09/27/14; RV lead Medtronic 6935M SN: [id number] 09/27/14; LV lead Medtronic 4396, SN; TRACIE [id number] 09/27/14 (updated 03/11/20) Systolic and diastolic CHF, chronic (Chronic) LBBB (left bundle branch block) (Chronic) Nonischemic dilated cardiomyopathy (Chronic) Medical History Acquired deformity of left hand Agoraphobia Anxiety Anxiety with depression Cardiomyopathy Chest pain CHF (congestive heart failure) Chronic pain syndrome Constipation Cyst Diarrhea Dizziness DVT prophylaxis Erectile dysfunction Fatigue Hallucination Hand paresthesia Heart disease History of suicidal ideation History of tobacco abuse Hyperlipidemia Impacted ear wax Metacarpophalangeal joint pain Musculoskeletal chest pain Pacemaker Pain in right hip Panic anxiety syndrome Skin lesion Tobacco use Surgical History Status post biventricular pacemaker Family History Mother , 2008 COPD (chronic obstructive pulmonary disease) Social History Smoking/Tobacco Use Status: Current every day Tobacco Type: cigarettes Smoking risk assessment performed?: Yes Alcohol Intake: former Drug use: Never Household members: none Pets and animals: No What type of physical activity do you participate in: none Seatbelt use: always Do you feel safe at home: Yes Do you feel safe in your relationship?: Yes Additional Social history: lives alone Exam Narrative Exam Narrative: GEN: awake, alert, oriented 3. Pleasant, well groomed, interactive. HEAD: Normocephalic, atraumatic ENT: Mucous membranes moist, oropharynx unremarkable, External ear exam unremarkable EYES: PERRL, EOMI NECK: Full ROM, no JUAN, no menigismus CHEST/RESP: Left anterior chest wall with palpable AICD. Nontender, diminished throughout, slightly tachypneic, end expiratory wheeze present CARDIOVASCULAR: Regular and tachycardic, distant. 2+ Rad pulse bilateral ABDOMEN: Soft, nontender, no mass. +Bowel sounds EXT: Full ROM, no edema, no rash Neuro: Grossly normal neurologic exam, conversant, interactive. Psych: Speech fluent, thoughts congruent, affect normal Course Vital Signs Vital signs: Vital Signs Temperature 37.2 C 02/20/22 20:13 Pulse 95 H 02/20/22 20:13 Respiratory Rate 22 02/20/22 20:13 Blood Pressure 154/79 H 02/20/22 20:13 Pulse Oximetry 92 02/20/22 20:13 Temperature 37.2 C 02/20/22 20:13 Temperature Source Skin 02/20/22 20:13 Pulse 95 H 02/20/22 20:13 Respiratory Rate 25 H 02/20/22 20:16 Respiratory Effort 02/20/22 20:16 Respiratory Depth Normal 02/20/22 20:16 Respiratory Pattern Normal 02/20/22 20:16 Blood Pressure 154/79 H 02/20/22 20:13 Blood Pressure Position Sitting 02/20/22 20:13 Pulse Oximetry 92 02/20/22 20:13 Oxygen Delivery Method Room Air 02/20/22 20:13 Oxygen Flow Rate 0 02/20/22 20:13 Pain Level 0 02/20/22 20:13
[2022-02-20 20:35] LABS: Abs Immature Grans 0.04 10^3/uL (0.0-0.06); Absolute Basophil Count 0.05 10^3/uL (0.0-0.2); Absolute Eosinophil Count 0.01 10^3/uL (0.0-0.7); Absolute Lymphocyte Count 0.65 10^3/uL (1.2-3.4); Absolute Monocyte Count 0.37 10^3/uL (0.1-0.8); Absolute Neutrophil Count 9.62 10^3/uL (1.2-6.7); Basophils % 0.5; Eosinophils % 0.1; Immature Grans % 0.4; Lymphocytes % 6.1; MCH 31.4 pg (27.0-33.0); MCHC 33.1 % (32.0-36.0); MCV 95 fL (80-95); MPV 10.5 fL (8.0-11.0); Monocytes % 3.4; Neutrophils % 89.5; Platelet Count 225 10^3/uL (130-400); RBC 6.08 10^6/uL (4.36-5.78); RDW 14.3 % (11.8-14.1); RDW-SD 49.6 fL; WBC 10.74 10^3/uL (4.4-10.8)
[2022-02-20 20:44] LABS: HCT 57.7 % (40.0-50.0)
[2022-02-20 20:48] LABS: ALT 30 U/L (16-63); AST 18 U/L (15-37); Albumin 4.2 g/dL (3.4-5.0); Alkaline Phosphatase 94 U/L (46-116); Anion Gap 7.9 mmol/L (3-11); BUN 11 mg/dL (7-18); Bilirubin, Total 0.7 mg/dL (0.2-1.0); CO2 29.1 mmol/L (21.0-32.0); CREATININE 1.3 mg/dL (0.70-1.30); Calcium 9.6 mg/dL (8.5-10.1); Chloride 100 mmol/L (98-107); Glucose 161 mg/dL (74-106); Magnesium 2.4 mg/dL (1.8-2.4); Potassium 4.4 mmol/L (3.5-5.1); Sodium 137 mmol/L (136-145); Total Protein 7.9 g/dL (6.4-8.2); Troponin I < 50 ng/L (<or=60)
[2022-02-20 20:57] LABS: Diff Comment Agrees w/ Instrument
[2022-02-20 20:58] LABS: RBC Morphology Normal
[2022-02-20] MEDS: Albuterol/Ipratropium 3 ML UPD VIAL UPD ×2 (21:02→23:33)
[2022-02-20] MEDS: Normal Saline 1,000 ML 150 ML IV (21:03)
--- NOTE | 2022-02-20 21:09 | DI.VRAD_ITS ---
PROCEDURE INFORMATION: Exam: XR Chest Exam date and time: 02/20/2022 8:38 PM Age: 56 years old Clinical indication: Shortness of breath; Additional info: SOB, copd TECHNIQUE: Imaging protocol: XR of the chest. Views: 1 view. COMPARISON: CR XR CHEST 1V IN DI DEPT 02/18/2022 4:35 PM FINDINGS: Tubes, catheters and devices: Superior left chest wall electronic cardiac device with stable positioning and configuration of leads to prior. Lungs: Lungs symmetrically hyperinflated. Hyperlucency of the upper lobes is consistent with emphysema. No focal consolidation or pulmonary edema. Chronic appearing coarsening of the perihilar and basilar interstitial markings attributed to chronic interstitial thickening and/or scarring. Pleural spaces: No visible pleural effusion. No pneumothorax. Heart/Mediastinum: Cardiomediastinal contours within normal limits. Bones/joints: No acute osseous finding. IMPRESSION: 1. No acute findings. 2. Radiographic sequela compatible with reported history of COPD. Dictated and Authenticated by: Omid Wesley MD. Ordering:MIRANDA Lee MD
[2022-02-20 21:37] LABS: COVID-19 PCR Negative (Negative); Influenza A PCR Negative (Negative); Influenza B PCR Negative (Negative); RSV PCR Negative (Negative)
[2022-02-20 21:38] LABS: Source Nasopharynx
--- NOTE | 2022-02-20 21:40 | W.PM.HP.N ---
Assessment and Plan Assessment and plan (1) COPD exacerbation: Status: Acute Assessment and plan: He will be treated with bronchodilators and steroids. At this time I do not see an infiltrate on his x-ray but will check a sputum culture and gram stain. I would not use antibiotics at this time. It sounds like he needs a booster of the COVID-vaccine. (2) Cigarette smoker: Status: Acute Assessment and plan: I have encouraged him to quit smoking. We will use nicotine substitute while he is here. History of Present Illness History of Present Illness Chief Complaint: dyspnea Narrative: This 56-year-old male is here because of shortness of breath. He was admitted 2 days ago for COPD exacerbation. He has a history of tobacco use and chronic obstructive lung disease. He was discharged yesterday because he was feeling improved. Said that he has been taking all his medicines. He said he started feeling terrible yesterday and cannot describe it any more than saying he felt blah! He also had an upset stomach and some shortness of breath. He was having trouble going the room in the room without becoming short of breath. He lives by himself. He continues to smoke but he says maximum 10 cigarettes/day. He does not use alcohol or other drugs. He says had pain in his central chest for years. He has occasional low back pain. Around anyone's been sick. He thinks he has had 2 coronavirus vaccines but has not had a booster. He acknowledges that he should quit smoking. He does not use home oxygen. Review of Systems Constitutional Constitutional: Denies chills, Denies fever(s), Reports lethargy and Reports weakness Cardiovascular Cardiovascular: Denies chest pain with activity, Denies diaphoresis, Denies rapid heart rate, Denies edema, Denies irregular heart rhythm, Denies palpitations and Reports dyspnea Respiratory Respiratory: Denies change in phlegm color, Reports cough, Denies hemoptysis, Reports dyspnea and Reports wheezing Gastrointestinal Gastrointestinal: Denies abdominal pain, Denies belching, Denies hematochezia, Denies diarrhea, Denies nausea and Denies vomiting Genitourinary Genitourinary: Denies difficulty urinating and Denies dysuria Neurologic Neurologic: Reports weakness Endocrine Endocrine: Denies palpitations Allergic/Immunologic Allergic/Immunologic: Reports wheezing PFSH All Active Problems (Updated 04/29/22 @ 21:24 by Jesus Wooten MD) COPD exacerbation (Acute) COPD (chronic obstructive pulmonary disease) (Chronic) Altered mental status (Acute) Ambulatory dysfunction (Acute) Adult failure to thrive (Acute) Bullae (Acute) Cigarette smoker (Acute) Cognitive impairment (Chronic) Ambulatory dysfunction (Chronic) DVT prophylaxis (Acute) Current smoker (Acute) Lung bullae (Acute) Acute exacerbation of chronic obstructive pulmonary disease (Acute) Acute on chronic systolic CHF (congestive heart failure) (Acute) Musculoskeletal chest pain (Chronic) Lethargy (Acute) BPH (benign prostatic hyperplasia) (Chronic) Lung disease (Acute) Arthritis (Acute) COPD exacerbation (Acute) Noncompliance with medication regimen (Acute) Depression (Chronic) Generalized weakness (Acute) UTI (urinary tract infection) (Acute) Discharge planning issues (Acute) Polysubstance abuse (Chronic) Confusion (Acute) Auditory hallucination (Acute) Orthostatic hypotension (Acute) PTSD (post-traumatic stress disorder) (Chronic) Discharge planning issues (Acute) Ambulatory dysfunction (Acute) Dyspnea (Acute) COPD (chronic obstructive pulmonary disease) (Chronic) DVT prophylaxis (Acute) Left rib fracture (Acute) Rib fracture (Acute) Syncope (Chronic) Severe chronic obstructive pulmonary disease (Chronic) Biventricular implantable cardioverter-defibrillator (ICD) in situ (Chronic) Mode:DDD, Low rate 60bpm, Atrial lead: medtronic 5076, SN: [id number] 09/27/14; RV lead Medtronic 6935M SN: [id number] 09/27/14; LV lead Medtronic 4396, SN; TRACIE [id number] 09/27/14 (updated 03/11/20) Systolic and diastolic CHF, chronic (Chronic) LBBB (left bundle branch block) (Chronic) Nonischemic dilated cardiomyopathy (Chronic) Medical History Acquired deformity of left hand Agoraphobia Anxiety Anxiety with depression Cardiomyopathy Chest pain CHF (congestive heart failure) Chronic pain syndrome Constipation Cyst Diarrhea Dizziness DVT prophylaxis Erectile dysfunction Fatigue Hallucination Hand paresthesia Heart disease History of suicidal ideation History of tobacco abuse Hyperlipidemia Impacted ear wax Metacarpophalangeal joint pain Musculoskeletal chest pain Pacemaker Pain in right hip Panic anxiety syndrome Skin lesion Tobacco use Surgical History Status post biventricular pacemaker Family History Mother , 2008 COPD (chronic obstructive pulmonary disease) Social History Smoking/Tobacco Use Status: Current every day Tobacco Type: cigarettes Smoking risk assessment performed?: Yes Alcohol Intake: former Drug use: Never Household members: none Pets and animals: No What type of physical activity do you participate in: none Seatbelt use: always Do you feel safe at home: Yes Do you feel safe in your relationship?: Yes Additional Social history: lives alone Meds Allergies and Home Medications Home Medications Medication Instructions Recorded Confirmed Type montelukast 10 mg tablet 10 mg PO DAILY 03/08/20 02/18/22 History bupropion HCl 300 mg 24 hr tablet, 300 mg PO QAM #10 tab 03/17/20 02/18/22 Rx extended release pravastatin 20 mg tablet 20 mg PO QHS #10 tab 03/17/20 02/18/22 Rx bupropion HCl 150 mg 24 hr tablet, 150 mg PO QAM 01/21/21 02/18/22 History extended release acetaminophen 325 mg capsule 325 mg PO DAILY PRN PRN 02/18/21 02/19/22 History amitriptyline 25 mg tablet 25 mg PO QHS tab 02/18/21 02/18/22 History fluticasone 250 mcg-salmeterol 50 1 inh INHALATION BID 02/18/21 02/18/22 History mcg/dose blistr powdr for inhalation (Advair Diskus) quetiapine 400 mg tablet (Seroquel) 400 mg PO HS tab 02/18/21 02/19/22 History quetiapine 100 mg tablet 100 mg PO HS 04/29/21 02/19/22 History pantoprazole 40 mg tablet,delayed 40 mg PO DAILY@0730 #30 tab 05/01/21 02/18/22 Rx release clonazepam 1 mg tablet 1 mg PO BID 07/21/21 02/18/22 History albuterol sulfate 90 mcg/actuation 2 puff INHALATION DIRECTED PRN 02/05/22 02/19/22 History aerosol inhaler (ProAir HFA) benztropine 1 mg tablet 1 mg PO HS 02/05/22 02/19/22 History lithium carbonate 300 mg capsule 300 mg PO BID 02/05/22 02/18/22 History docusate sodium 100 mg capsule 100 mg PO DAILY #30 cap 02/19/22 Rx (Colace) gabapentin 400 mg capsule 400 mg PO TID 02/19/22 02/19/22 History ipratropium 0.5 mg-albuterol 3 mg 3 ml INHALATION Q6H PRN PRN 02/19/22 02/19/22 History (2.5 mg base)/3 mL nebulization soln nitroglycerin 0.3 mg sublingual 0.3 mg SUBLINGUAL Q5-15M PRN 02/19/22 02/19/22 History tablet polyethylene glycol 3350 17 gram 17 g PO DAILY #30 ea 02/19/22 Rx oral powder packet prednisone 20 mg tablet 40 mg PO DAILY #4 tab 02/19/22 Rx tamsulosin 0.4 mg capsule 0.4 mg PO DAILY #30 cap 02/19/22 Rx Exam Const General: cooperative, comfortable, no acute distress and ill appearing Nutritional Appearance: well nourished Neck Neck: normal visual inspection, no lymphadenopathy and no JVD Resp Auscultation: diminished lung sounds, no rales, no rhonchi and wheezes Cardio Rate: regular rate Rhythm: regular rhythm Heart Sounds: S1 normal, S2 normal, no gallops, no murmurs and no other GI Palpation: soft, no hepatosplenomegaly, not firm and nontender Skin General skin exam: no rashes or lesions noted Extrem General: normal to inspection, pedal edema present, calf tenderness and no clubbing Results Labs Result diagrams: 02/20/22 20:26 02/20/22 20:26 Labs: Laboratory Results - last 24 hr 02/20/22 02/20/22 02/20/22 20:26 20:26 20:31 WBC 10.74 RBC 6.08 H Hgb 19.1 H* Hct 57.7 H* MCV 95 MCH 31.4 MCHC 33.1 RDW 14.3 H Plt Count 225 MPV 10.5 Immature Gran % 0.4 Neutrophils % 89.5 Lymphocytes % 6.1 Monocytes % 3.4 Eosinophils % 0.1 Basophils % 0.5 Nucleated RBC % 0.0 Absolute Neutrophils 9.62 H Absolute Lymphocytes 0.65 L Absolute Monocytes 0.37 Absolute Eosinophils 0.01 Absolute Basophils 0.05 RBC Morphology Normal Sodium 137 Potassium 4.4 Chloride 100 Carbon Dioxide 29.1 Anion Gap 7.9 BUN 11 Creatinine 1.3 Estimated GFR/1.73 m2 56.70 Glucose 161 H Calcium 9.6 Magnesium 2.4 Total Bilirubin 0.7 AST 18 ALT 30 Alkaline Phosphatase 94 Troponin I < 50 Total Protein 7.9 Albumin 4.2 COVID-19 Source Nasopharynx SARS-CoV-2 (PCR) Negative Influenza Type A (PCR) Negative Influenza Type B (PCR) Negative RSV (PCR) Negative Last Vital Signs Temp 37.2 C 02/20/22 20:13 Pulse 95 H 02/20/22 20:13 Resp 11 L 02/20/22 21:20 BP 154/79 H 02/20/22 20:13 Pulse Ox 96 02/20/22 21:20
[2022-02-20 22:47] LABS: Procalcitonin < 0.1 ng/mL
[2022-02-20 22:51] LABS: Lithium 0.4 mmol/l (0.6-1.2)
[2022-02-20] MEDS: Enoxaparin 40 MG/0.4 ML SYR SC (23:36)
[2022-02-20] MEDS: Pravastatin 20 MG TAB PO (23:36)
[2022-02-20] MEDS: Amitriptyline 25 MG TAB PO (23:36)
[2022-02-20] MEDS: QUEtiapine 100 MG TAB 500 MG PO (23:36)
[2022-02-20] MEDS: Gabapentin 400 MG CAP PO (23:36)
[2022-02-20] MEDS: Benztropine 1 MG TAB PO (23:36)
[2022-02-20] MEDS: clonazePAM 1 MG TAB PO (23:36)
[2022-02-21] VITALS (11 sets, daily range): BP systolic 106–133; BP diastolic 67–83; PULSE 61–97; RESP 4–23; TEMP 36.4–37; O2SAT 93–99
[2022-02-21] MEDS: Lactated Ringers 1,000 ML 75 ML IV ×2 (00:30→13:46)
[2022-02-21] MEDS: methylPREDNISolone SUCC 125 MG VIAL 80 MG IVP ×3 (03:57→20:17)
[2022-02-21] MEDS: Normal Saline Flush 10 ML SYR IVP ×2 (03:58→20:17)
[2022-02-21] MEDS: Albuterol/Ipratropium 3 ML UPD VIAL UPD ×4 (06:12→23:02)
[2022-02-21 06:37] LABS: Abs Immature Grans 0.06 10^3/uL (0.0-0.06); Absolute Basophil Count 0.01 10^3/uL (0.0-0.2); Absolute Eosinophil Count 0.01 10^3/uL (0.0-0.7); Absolute Lymphocyte Count 0.43 10^3/uL (1.2-3.4); Absolute Monocyte Count 0.41 10^3/uL (0.1-0.8); Absolute Neutrophil Count 7.37 10^3/uL (1.2-6.7); Basophils % 0.1; Eosinophils % 0.1; HCT 50.2 % (40.0-50.0); HGB 16.9 g/dL (13.5-17.5); Immature Grans % 0.7; Lymphocytes % 5.2; MCH 31.5 pg (27.0-33.0); MCHC 33.7 % (32.0-36.0); MCV 94 fL (80-95); MPV 10.9 fL (8.0-11.0); Monocytes % 4.9; Platelet Count 191 10^3/uL (130-400); RBC 5.36 10^6/uL (4.36-5.78); RDW 13.9 % (11.8-14.1); RDW-SD 48.3 fL; WBC 8.29 10^3/uL (4.4-10.8)
[2022-02-21 06:44] LABS: Anion Gap 6.7 mmol/L (3-11); BUN 11 mg/dL (7-18); CO2 27.3 mmol/L (21.0-32.0); Calcium 8.7 mg/dL (8.5-10.1); Chloride 103 mmol/L (98-107); Glucose 158 mg/dL (74-106); Potassium 4.6 mmol/L (3.5-5.1); Sodium 137 mmol/L (136-145)
[2022-02-21] MEDS: buPROPion-XL 150 MG TABCR PO (07:56)
[2022-02-21] MEDS: Montelukast 10 MG TAB PO (07:57)
[2022-02-21] MEDS: buPROPion-XL 150 MG TABCR 300 MG PO (07:57)
[2022-02-21] MEDS: Tamsulosin 0.4 MG CAPCR PO (07:57)
[2022-02-21] MEDS: Docusate Sodium 100 MG CAP PO (07:57)
[2022-02-21] MEDS: clonazePAM 1 MG TAB PO ×2 (07:57→20:18)
[2022-02-21] MEDS: Polyethylene Glycol 3350 17 GM PACKET PO (07:58)
[2022-02-21] MEDS: Gabapentin 400 MG CAP PO ×3 (07:58→20:18)
[2022-02-21] MEDS: Pantoprazole 40 MG TABCR PO (07:58)
--- NOTE | 2022-02-21 09:37 | PDOC.CMIN ---
- If Service Date Differs Date of service: 02/21/22 Time of Service: 09:37 Care Management Initial Assess REASON FOR HOSPITALIZATION:: COPD exacerbation. PAST MEDICAL HISTORY/PAST SURGICAL HISTORY:: All Active Problems: COPD exacerbation (Acute), COPD (chronic obstructive pulmonary disease) (Chronic), Altered mental status (Acute),. Ambulatory dysfunction (Acute), Adult failure to thrive (Acute), Bullae (Acute), Cigarette smoker (Acute), Cognitive impairment (Chronic),. Ambulatory dysfunction (Chronic), DVT prophylaxis (Acute), Current smoker (Acute), Lung bullae (Acute), Acute exacerbation of chronic obstructive pulmonary disease (Acute), Acute on chronic systolic CHF (congestive heart failure) (Acute), Musculoskeletal chest pain (Chronic), Lethargy (Acute), BPH (benign prostatic hyperplasia) (Chronic), Lung disease (Acute), Arthritis (Acute), COPD exacerbation (Acute), Noncompliance with medication regimen (Acute), Depression (Chronic), Generalized weakness (Acute), UTI (urinary tract infection) (Acute), Discharge planning issues (Acute), Polysubstance abuse (Chronic), Confusion (Acute), Auditory hallucination (Acute), Orthostatic hypotension (Acute), PTSD (post-traumatic stress disorder) (Chronic), Discharge planning issues (Acute), Ambulatory dysfunction (Acute), Dyspnea (Acute), COPD (chronic obstructive pulmonary disease) (Chronic), DVT prophylaxis (Acute),Left rib fracture (Acute), Rib fracture (Acute), Syncope (Chronic),. Severe chronic obstructive pulmonary disease (Chronic), Biventricular implantable cardioverter-defibrillator (ICD) in situ (Chronic) - Mode:DDD, Low rate 60bpm, Atrial lead: medtronic 5076, SN: [id number] 09/27/14; RV lead Medtronic 6935M SN: [id number] 09/27/14; LV lead Medtronic 4396, SN; TRACIE [id number] 09/27/14 (updated 03/11/20), Systolic and diastolic CHF, chronic (Chronic), LBBB (left bundle branch block) (Chronic), and Nonnischemic dilated cardiomyopathy (Chronic). Medical History: Acquired deformity of left hand, Agoraphobia, Anxiety,. Anxiety with depression, Cardiomyopathy, Chest pain, CHF (congestive heart failure), Chronic pain syndrome, Constipation, Cyst, Diarrhea, Dizziness, DVT prophylaxis, Erectile dysfunction, Fatigue, Hallucination,. Hand paresthesia, Heart disease, History of suicidal ideation, History of tobacco abuse, Hyperlipidemia, Impacted ear wax, Metacarpophalangeal joint pain, Musculoskeletal chest pain, Pacemaker, Pain in right hip, Panic anxiety syndrome, Skin lesion, and Tobacco use. Surgical History: Status post biventricular pacemaker. PREVIOUS FUNCTIONAL STATUS/SOCIAL/FAMILY SUPPORTS:: William lives alone in his own home in [place], [place]. 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 He now spends his time fishing, hunting, and woodworking. William drives and is independent with his ADLs. CURRENT FUNCTIONAL STATUS:: William is sitting on the side of the bed when CM comes to meet with him. He states he is feeling better. William was admitted to [facility] on 02/18/22 and discharged home on 02/19/22, just to be readmitted to the hospital the following day. William states he felt ready to go home on the but says he started feeling badly shortly after his return home. ADVANCE DIRECTIVES:: None on file; CM offers form and patient declines. Has patient been provided with info about the portal/API?: Yes Did the patient sign up for the portal?: No CODE STATUS:: Full Code INSURANCE COVERAGE / FINANCIAL ISSUES:: Medicare. CURRENT HOME/COMMUNITY SERVICES/EQUIPMENT:: William has [employer]PA[employer] supports through [facility] (Joy is his clinical case manager). Home Health PT was ordered for William at last hospitalization but William was readmitted to the hospital before services could begin. PRIMARY CARE PHYSICIAN:: DOMINIC Cuellar ([facility]). POTENTIAL DISCHARGE NEEDS:: Follow up appointments with PCP and pulmonology. PATIENT/FAMILY EDUCATION NEEDS:: Review of discharge instructions including medications and follow up plan of care; discuss Ask Me Three and self management. ANTICIPATED BARRIERS TO DISCHARGE:: No anticipated barriers currently. TRANSPORTATION:: Via RCT vs. private vehicle with friend. PLAN:: William will likely return home with no new services when medically cleared by provider. [facility] PT was ordered upon the 02/19 discharge but William states he doesn't need physical therapy. He will follow up with his PCP, [facility], and discharge plan of care as instructed. He will be driven home via RCT vs. private vehicle with a friend. CM will continue to follow. Readmission - Within the Past 30 Days Yes or No: Y - Date of First Admission Date of 1st Admission: 02/18/22 - Date of this Admission Date of Admission: 02/20/22 This admission was: Through ED - Office Visit Since 1st Admission Have you seen your PCP in the office since discharge?: No Had an appointment Been Scheduled?: Yes Date of Scheduled Appointment: 02/25/2022 - I. Interview patient and/or Family Difficulty reaching your doctor or getting an office appt?: No Have you had trouble purchasing/ or taking medication?: No How do you take your medications and set up your pills?: William states his medications are bubble-packed by the [facility] and his meds are delivered to him by the [facility] [employer] Program on a daily basis. Have you had trouble with getting meals at home?: No Describe your typical meals since you have been home: Baked beans, hot dogs and/or hamburgers. Did you feel ready for discharge when you left the last time: Yes Did you call your physician beore you came to the ED?: No - If the patient had a VNA ordered Did the patient have a VNA order?: Yes Did you call the VNA before you came?: No - Ask the Care Team Members: What do you think caused the patient to be readmitted: Patient continues to smoke cigarettes and this is exacerbating his COPD. - ED visits How many ED visits in the past 12 months: 7 - Assessment for Readmission Summary of readmission circumstances, based upon interviews: William has a history of chronic obstructive lung disease. His continued use of tobacco is exacerbating his condition.
--- NOTE | 2022-02-21 14:23 | PHA.REVIEW ---
Pharmacy Admission Review - Admission Clinical Review COPD exacerbation (Acute) Cigarette smoker (Acute) No Known Allergies Allergy (Unverified 02/20/22 22:19) Resuscitation Status Full Code Height 5 ft 7 in Weight 75.3 kg - Comments Comments/Follow Ups: Re-admission for COPD exacerbation, [facility], patient gets meds delivered daily by [facility], lives alone. Presents for SOB, smoker - Renal Dosing Renal Dosing: BUN 11 mg/dL (7-18) 02/21/22 06:12 Creatinine 1.0 mg/dL (0.70-1.30) 02/21/22 06:12 Medications needing adjustments: Reviewed (CrCl~75ml/min) - Anticoagulation Anticoagulation: Hgb 16.9 g/dL (13.5-17.5) D 02/21/22 06:12 Hct 50.2 % (40.0-50.0) H 02/21/22 06:12 Plt Count 191 10^3/uL (130-400) 02/21/22 06:12 Creatinine 1.0 mg/dL (0.70-1.30) 02/21/22 06:12 DVT Prophylaxis: Reviewed Medications: Enoxaparin - Relevant Labs Sodium 137 mmol/L (136-145) 02/21/22 06:12 Potassium 4.6 mmol/L (3.5-5.1) 02/21/22 06:12 Chloride 103 mmol/L (98-107) 02/21/22 06:12 Magnesium 2.4 mg/dL (1.8-2.4) 02/20/22 20:26 Electrolytes, C-Reactive P, ESR: Reviewed - DM Control DM Control: Glucose 158 mg/dL (74-106) H 02/21/22 06:12 Insulin Dosing: N/A - Heart Failure/MT Heart Failure/MT: Troponin I < 50 ng/L (<or=60) 02/20/22 20:26 EF%, TEOFILO's, B-Blockers, Diuretics: Reviewed (none) - BP Control BP Control: Blood Pressure 113/68 Blood Pressure 108/68 Blood Pressure 106/67 If elevated: Reviewed - Qtc Review If Elevated: Reviewed (qtc 471) - Home Meds Home Med List reviewed: Intervened (Spent close to an hour obtaining, reviewing, discussing with provider the most recent medication list I could obtain from [facility] (Lorrie Crespo, provider), can't confirm that the list is 100% accurate until speaking with KATHARINA on Wednesday. Patient does NOT know what he takes or doses-MD aware) - Current meds Current Medication Order Review: Reviewed (IV steroids, scheduled duonebs)
[2022-02-21] MEDS: Nicotine 14 MG/24 HR PATCH TD (16:45)
[2022-02-21] MEDS: Acetaminophen 325 MG TAB 650 MG PO (16:45)
--- NOTE | 2022-02-21 17:22 | PGE_ITS ---
Date of Service Date of service: 02/21/22 Time of Service: 17:23 Assessment and Plan Assessment and plan (1) COPD exacerbation: Status: Acute Assessment and plan: still requiring oxygen, wean as able. continue IV steroids, updrafts, (2) Cigarette smoker: Status: Acute Assessment and plan: smoking cessation discussed. patient reports he quit for 6 years in the past and is motivated to try again. continue nicotine replacement while hospitalized. (3) Noncompliance with medication regimen: Status: Acute Assessment and plan: receives his meds in bubble packs followed by KATHARINA (4) BPH (benign prostatic hyperplasia): Status: Chronic Assessment and plan: continue tamsulosin, voiding well. (5) Depression: Status: Chronic Assessment and plan: continue home medication Qualifiers: Active/Remission status: currently active Depression Type: major depressive disorder Major depression episode severity: severe Major depression recurrence: recurrent Psychotic features: with psychotic features Qualified Code(s): F33.3 - Major depressive disorder, recurrent, severe with psychotic symptoms (6) Auditory hallucination: Status: Chronic Assessment and plan: stable on his seroquel (7) DVT prophylaxis: Status: Acute Assessment and plan: enoxaparin daily (8) Discharge planning issues: Status: Acute Assessment and plan: will discharge to home when medically stable. discussed with DR Cruz. Subjective Subjective Patient reports: no new complaints, feels better, tolerating liquids well, cristal erating a regular diet and afebrile Exam Const General: cooperative, comfortable, no acute distress and disheveled (older than stated age) Neck Neck: normal visual inspection Resp Auscultation: diminished lung sounds, no rales, no rhonchi and wheezes Cardio Rate: regular rate Rhythm: regular rhythm GI Palpation: soft Skin General skin exam: no rashes or lesions noted Extrem General: normal to inspection, pedal edema present and calf tenderness Objective Last Vital Signs Temp 36.5 C 02/21/22 15:15 Pulse 95 H 02/21/22 15:15 Resp 23 02/21/22 15:15 BP 126/83 02/21/22 15:15 Pulse Ox 95 02/21/22 15:15 Laboratory Results - last 24 hr 02/20/22 02/20/22 02/20/22 20:26 20:26 20:31 WBC 10.74 RBC 6.08 H Hgb 19.1 H* Hct 57.7 H* MCV 95 MCH 31.4 MCHC 33.1 RDW 14.3 H Plt Count 225 MPV 10.5 Immature Gran % 0.4 Neutrophils % 89.5 Lymphocytes % 6.1 Monocytes % 3.4 Eosinophils % 0.1 Basophils % 0.5 Nucleated RBC % 0.0 Absolute Neutrophils 9.62 H Absolute Lymphocytes 0.65 L Absolute Monocytes 0.37 Absolute Eosinophils 0.01 Absolute Basophils 0.05 RBC Morphology Normal Sodium 137 Potassium 4.4 Chloride 100 Carbon Dioxide 29.1 Anion Gap 7.9 BUN 11 Creatinine 1.3 Estimated GFR/1.73 m2 56.70 Glucose 161 H Calcium 9.6 Magnesium 2.4 Total Bilirubin 0.7 AST 18 ALT 30 Alkaline Phosphatase 94 Troponin I < 50 Total Protein 7.9 Albumin 4.2 Procalcitonin [place] COVID-19 Source Nasopharynx SARS-CoV-2 (PCR) Negative Influenza Type A (PCR) Negative Influenza Type B (PCR) Negative RSV (PCR) Negative 02/20/22 02/20/22 02/21/22 22:05 22:05 06:12 WBC RBC Hgb Hct MCV MCH MCHC RDW Plt Count MPV Immature Gran % Neutrophils % Lymphocytes % Monocytes % Eosinophils % Basophils % Nucleated RBC % Absolute Neutrophils Absolute Lymphocytes Absolute Monocytes Absolute Eosinophils Absolute Basophils RBC Morphology Sodium 137 Potassium 4.6 Chloride 103 Carbon Dioxide 27.3 Anion Gap 6.7 BUN 11 Creatinine 1.0 Estimated GFR/1.73 m2 >= 60.00 Glucose 158 H Calcium 8.7 Magnesium Total Bilirubin AST ALT Alkaline Phosphatase Troponin I Total Protein Albumin Procalcitonin < 0.1 [place] 0.4 L COVID-19 Source SARS-CoV-2 (PCR) Influenza Type A (PCR) Influenza Type B (PCR) RSV (PCR) 02/21/22 06:12 WBC 8.29 RBC 5.36 Hgb 16.9 D Hct 50.2 H MCV 94 MCH 31.5 MCHC 33.7 RDW 13.9 Plt Count 191 MPV 10.9 Immature Gran % 0.7 Neutrophils % 89.0 Lymphocytes % 5.2 Monocytes % 4.9 Eosinophils % 0.1 Basophils % 0.1 Nucleated RBC % 0.0 Absolute Neutrophils 7.37 H Absolute Lymphocytes 0.43 L Absolute Monocytes 0.41 Absolute Eosinophils 0.01 Absolute Basophils 0.01 RBC Morphology Sodium Potassium Chloride Carbon Dioxide Anion Gap BUN Creatinine Estimated GFR/1.73 m2 Glucose Calcium Magnesium Total Bilirubin AST ALT Alkaline Phosphatase Troponin I Total Protein Albumin Procalcitonin [place] COVID-19 Source SARS-CoV-2 (PCR) Influenza Type A (PCR) Influenza Type B (PCR) RSV (PCR)
[2022-02-21] MEDS: Lithium Carbonate 300 MG CAP PO (20:17)
[2022-02-21] MEDS: Benztropine 1 MG TAB 0.5 MG PO (23:00)
[2022-02-21] MEDS: Enoxaparin 40 MG/0.4 ML SYR SC (23:00)
[2022-02-21] MEDS: Pravastatin 20 MG TAB PO (23:01)
[2022-02-21] MEDS: Amitriptyline 25 MG TAB PO (23:01)
[2022-02-22] VITALS (10 sets, daily range): BP systolic 117–144; BP diastolic 68–84; PULSE 58–96; RESP 4–24; TEMP 36.6–37.3; O2SAT 91–96
[2022-02-22] MEDS: methylPREDNISolone SUCC 125 MG VIAL 80 MG IVP ×3 (04:57→19:54)
[2022-02-22] MEDS: Normal Saline Flush 10 ML SYR IVP ×4 (04:57→19:55)
[2022-02-22] MEDS: Albuterol/Ipratropium 3 ML UPD VIAL UPD ×4 (05:01→23:19)
[2022-02-22] MEDS: Gabapentin 400 MG CAP PO ×3 (08:04→19:53)
[2022-02-22] MEDS: Tamsulosin 0.4 MG CAPCR PO (08:04)
[2022-02-22] MEDS: Pantoprazole 40 MG TABCR PO (08:04)
[2022-02-22] MEDS: clonazePAM 1 MG TAB PO ×2 (08:04→19:54)
[2022-02-22] MEDS: Docusate Sodium 100 MG CAP PO (08:04)
[2022-02-22] MEDS: Montelukast 10 MG TAB PO (08:04)
[2022-02-22] MEDS: Lithium Carbonate 300 MG CAP PO ×2 (08:04→19:53)
[2022-02-22] MEDS: Polyethylene Glycol 3350 17 GM PACKET PO (08:04)
[2022-02-22] MEDS: buPROPion-XL 150 MG TABCR PO (08:05)
[2022-02-22] MEDS: Acetaminophen 325 MG TAB 650 MG PO ×2 (08:05→16:16)
[2022-02-22] MEDS: buPROPion-XL 150 MG TABCR 300 MG PO (08:05)
--- NOTE | 2022-02-22 13:17 | W.PM.PROGNOT ---
Date of Service Date of service: 02/22/22 Time of Service: 13:17 Assessment and Plan Assessment and plan (1) COPD exacerbation: Status: Acute Assessment and plan: still requiring oxygen, wean as able. continue IV steroids, updrafts, (2) Cigarette smoker: Status: Acute Assessment and plan: smoking cessation discussed. patient reports he quit for 6 years in the past and is motivated to try again. continue nicotine replacement while hospitalized. (3) Noncompliance with medication regimen: Status: Acute Assessment and plan: receives his meds in bubble packs followed by KATHARINA (4) BPH (benign prostatic hyperplasia): Status: Chronic Assessment and plan: continue tamsulosin, voiding well. (5) Depression: Status: Chronic Assessment and plan: continue home medication Qualifiers: Active/Remission status: currently active Depression Type: major depressive disorder Major depression episode severity: severe Major depression recurrence: recurrent Psychotic features: with psychotic features Qualified Code(s): F33.3 - Major depressive disorder, recurrent, severe with psychotic symptoms (6) Auditory hallucination: Status: Chronic Assessment and plan: stable on his seroquel (7) DVT prophylaxis: Status: Acute Assessment and plan: enoxaparin daily (8) Discharge planning issues: Status: Acute Assessment and plan: will discharge to home when medically stable, hoping for tomorrow. . discussed with DR Cruz. Subjective Subjective Patient reports: no new complaints, feels better, tolerating liquids well, tolerating a regular diet, shortness of breath (with activity) and afebrile Exam Const General: cooperative, comfortable, no acute distress and disheveled (older than stated age) Neck Neck: normal visual inspection Resp Auscultation: diminished lung sounds, no rales, no rhonchi and wheezes Cardio Rate: regular rate Rhythm: regular rhythm GI Palpation: soft Skin General skin exam: no rashes or lesions noted Extrem General: normal to inspection, pedal edema present and calf tenderness Objective Last Vital Signs Temp 36.8 C 02/22/22 11:28 Pulse 96 H 02/22/22 11:28 Resp 24 02/22/22 11:28 BP 117/84 02/22/22 11:28 Pulse Ox 94 02/22/22 12:31
[2022-02-22] MEDS: QUEtiapine 100 MG TAB 500 MG PO (22:43)
[2022-02-22] MEDS: Enoxaparin 40 MG/0.4 ML SYR SC (22:44)
[2022-02-22] MEDS: Pravastatin 20 MG TAB PO (22:44)
[2022-02-22] MEDS: Amitriptyline 25 MG TAB PO (22:44)
[2022-02-22] MEDS: Benztropine 1 MG TAB 0.5 MG PO (22:44)
[2022-02-23 03:10] VITALS: BP 116/74; PULSE 87; RESP 18; TEMP 36.6; O2SAT 94
[2022-02-23] MEDS: methylPREDNISolone SUCC 125 MG VIAL 80 MG IVP ×2 (05:12→11:52)
[2022-02-23] MEDS: Normal Saline Flush 10 ML SYR IVP ×3 (05:13→11:53)
[2022-02-23] MEDS: Albuterol/Ipratropium 3 ML UPD VIAL UPD ×2 (05:14→11:53)
[2022-02-23 06:06] LABS: HCT 51.8 % (40.0-50.0); HGB 17.2 g/dL (13.5-17.5); MCH 31.2 pg (27.0-33.0); MCHC 33.2 % (32.0-36.0); MCV 94 fL (80-95); MPV 10.7 fL (8.0-11.0); Platelet Count 198 10^3/uL (130-400); RBC 5.52 10^6/uL (4.36-5.78); RDW 13.5 % (11.8-14.1); WBC 12.91 10^3/uL (4.4-10.8)
[2022-02-23 07:53] LABS: HGB 19.1 g/dL (13.5-17.5)
--- NOTE | 2022-02-23 07:58 | W.PALLCONSUL ---
Date of service: 02/23/22 Time of Service: 07:58 [facility] All Active Problems (Updated 02/21/22 @ 17:37 by Pham Ngo NP) COPD exacerbation (Acute) COPD (chronic obstructive pulmonary disease) (Chronic) Altered mental status (Acute) Ambulatory dysfunction (Acute) Adult failure to thrive (Acute) Bullae (Acute) Cigarette smoker (Acute) Cognitive impairment (Chronic) Ambulatory dysfunction (Chronic) DVT prophylaxis (Acute) Current smoker (Acute) Lung bullae (Acute) Acute exacerbation of chronic obstructive pulmonary disease (Acute) Acute on chronic systolic CHF (congestive heart failure) (Acute) Musculoskeletal chest pain (Chronic) Lethargy (Acute) BPH (benign prostatic hyperplasia) (Chronic) Lung disease (Acute) Arthritis (Acute) COPD exacerbation (Acute) Noncompliance with medication regimen (Acute) Depression (Chronic) Generalized weakness (Acute) UTI (urinary tract infection) (Acute) Discharge planning issues (Acute) Polysubstance abuse (Chronic) Confusion (Acute) Auditory hallucination (Chronic) Orthostatic hypotension (Acute) PTSD (post-traumatic stress disorder) (Chronic) Discharge planning issues (Acute) Ambulatory dysfunction (Acute) Dyspnea (Acute) COPD (chronic obstructive pulmonary disease) (Chronic) DVT prophylaxis (Acute) Left rib fracture (Acute) Rib fracture (Acute) Syncope (Chronic) Severe chronic obstructive pulmonary disease (Chronic) Biventricular implantable cardioverter-defibrillator (ICD) in situ (Chronic) Mode:DDD, Low rate 60bpm, Atrial lead: medtronic 5076, SN: [id number] 09/27/14; RV lead Medtronic 6935M SN: [id number] 09/27/14; LV lead Medtronic 4396, SN; [id number] 09/27/14 (updated 03/11/20) Systolic and diastolic CHF, chronic (Chronic) LBBB (left bundle branch block) (Chronic) Nonischemic dilated cardiomyopathy (Chronic) Medical History Acquired deformity of left hand Agoraphobia Anxiety Anxiety with depression Cardiomyopathy Chest pain CHF (congestive heart failure) Chronic pain syndrome Constipation Cyst Diarrhea Dizziness DVT prophylaxis Erectile dysfunction Fatigue Hallucination Hand paresthesia Heart disease History of suicidal ideation History of tobacco abuse Hyperlipidemia Impacted ear wax Metacarpophalangeal joint pain Musculoskeletal chest pain Pacemaker Pain in right hip Panic anxiety syndrome Skin lesion Tobacco use Surgical History Status post biventricular pacemaker Family History Mother , 2008 COPD (chronic obstructive pulmonary disease) Social History Smoking/Tobacco Use Status: Current every day Tobacco Type: cigarettes Smoking risk assessment performed?: Yes Alcohol Intake: former Drug use: Never Household members: none Pets and animals: No What type of physical activity do you participate in: none Seatbelt use: always Do you feel safe at home: Yes Do you feel safe in your relationship?: Yes Additional Social history: lives alone Results Last Vital Signs Temp 97.9 F 02/23/22 03:10 Pulse 87 02/23/22 03:10 Resp 18 02/23/22 03:10 BP 116/74 02/23/22 03:10 Pulse Ox 94 02/23/22 03:10 Labs Result diagrams: 02/23/22 05:35 02/21/22 06:12 Labs: Laboratory Results - last 24 hr 02/20/22 02/23/22 20:26 05:35 WBC 12.91 H RBC 5.52 Hgb 19.1 H* 17.2 Hct 51.8 H MCV 94 MCH 31.2 MCHC 33.2 RDW 13.5 Plt Count 198 MPV 10.7
[2022-02-23 08:01] VITALS: BP 117/71; PULSE 74; RESP 16; TEMP 36.6; O2SAT 94
[2022-02-23] MEDS: Polyethylene Glycol 3350 17 GM PACKET PO (08:39)
[2022-02-23] MEDS: Nicotine 14 MG/24 HR PATCH TD (08:40)
[2022-02-23] MEDS: buPROPion-XL 150 MG TABCR PO (08:42)
[2022-02-23] MEDS: Lithium Carbonate 300 MG CAP PO (08:42)
[2022-02-23] MEDS: Pantoprazole 40 MG TABCR PO (08:42)
[2022-02-23] MEDS: buPROPion-XL 150 MG TABCR 300 MG PO (08:42)
[2022-02-23] MEDS: Gabapentin 400 MG CAP PO ×2 (08:42→13:57)
[2022-02-23] MEDS: Docusate Sodium 100 MG CAP PO (08:43)
[2022-02-23] MEDS: Tamsulosin 0.4 MG CAPCR PO (08:43)
[2022-02-23] MEDS: Montelukast 10 MG TAB PO (08:43)
[2022-02-23] MEDS: clonazePAM 1 MG TAB PO (08:43)
[2022-02-23 11:45] VITALS: BP 136/85; PULSE 110; RESP 23; TEMP 36.8; O2SAT 88
--- NOTE | 2022-02-23 13:37 | DSE_ITS ---
Date of service: 02/23/22 Time of Service: 13:37 DS: Diagnosis Discharge Diagnosis (1) COPD exacerbation: Status: Acute (2) Cigarette smoker: Status: Acute (3) Noncompliance with medication regimen: Status: Acute (4) BPH (benign prostatic hyperplasia): Status: Chronic (5) Depression: Status: Chronic (6) Auditory hallucination: Status: Chronic Discharge Plan Disposition Patient Disposition: HOME Condition: Stable Discharge Details Reason For Visit: COPD Exacerbation Admit Date/Time: 02/20/22 21:33 Admit Provider: Eb Khan Attending Provider: bE Khan Primary Care Provider: Lorrie Crespo Hospital Course Hospital Course: This is a 56 year old, well known to hospitalist services, with history of copd, smoker, non compliance, who returned to the ED for shortness of breath after being discharged the day before from a short hospitalization for COPD exacerbation. he was found hypoxic with oxygen requirements, no fever or evidence of pneumonia, covid negative. he was started on IV steroids and admitted to hospitalist services. he slowly improved. remained afebrile He was weaned to room air and was maintaining sats in the high 80's low 90's which is likely about his baseline. He states he feels improved and is requesting a discharge to home. He will be discharged on a slow oral taper. He is followed by [facility] and will continue on discharge. discharge discussed with DR Jara. Home Meds and New Rx's Prescriptions: New prednisone 10 mg tablet See Rx Instructions .ROUTE .COMPLEX Qty: 60 0RF Rx Instructions: 60 mg daily for 3 days, 50 mg for 3 days, 40 mg for 3 days, 30 mg for 3 days, 20 mg for 3 days, 10 mg for 3 days, 5 mg for 3 days then stop Continued quetiapine [Seroquel] 400 mg tablet 400 mg PO HS 0RF Rx Instructions: give with 100mg tablet for total of 500 mg fluticasone propion-salmeterol [Advair Diskus] 250-50 mcg/dose blister with device 1 inh inhalation BID 0RF amitriptyline 25 mg tablet 25 mg PO QHS 0RF acetaminophen 325 mg capsule 325 mg PO DAILY PRN PRN0RF montelukast 10 mg tablet 10 mg PO DAILY 0RF bupropion HCl 300 mg tablet extended release 24 hr 300 mg PO QAM Qty: 10 0RF Label Comments: total dose 450 mg Rx Instructions: Total dose: 450mg XL daily pravastatin 20 mg tablet 20 mg PO QHS Qty: 10 0RF bupropion HCl 150 mg tablet extended release 24 hr 150 mg PO QAM 0RF Label Comments: total dose 450 mg Rx Instructions: Total dose: 450mg XL daily quetiapine 100 mg Tablet 100 mg PO HS 0RF Rx Instructions: give with 400mg tablet for 500mg total pantoprazole 40 mg Tablet,Delayed Release (Dr/Ec) 40 mg PO DAILY@0730 Qty: 30 0RF clonazepam 1 mg tablet 1 mg PO BID 0RF Label Comments: Take 1 tablet by mouth twice a day benztropine 0.5 mg Tablet 0.5 mg PO HS 0RF Nicotrol 10 mg Cartridge 1 inh INHALATION UD MDD 16 0RF Rx Instructions: NTE 16 cartridges per day naloxone [Narcan] 4 mg/actuation [place],Non-Aerosol 4 mg INTRANASAL PRN PRN0RF lithium carbonate 300 mg capsule 300 mg PO BID 0RF Label Comments: take 1 cap po bid albuterol sulfate [ProAir HFA] 90 mcg/actuation Hfa Aerosol Inhaler 2 puff INHALATION DIRECTED PRN0RF Rx Instructions: Q4-6H PRN gabapentin 400 mg Capsule 400 mg PO TID 0RF ipratropium-albuterol 0.5 mg-3 mg(2.5 mg base)/3 mL solution for nebulization 3 ml INHALATION Q6H PRN PRN0RF Label Comments: USE 1 AMPULE VIA NEBULIZER EVERY 6 HOURS NEEDED nitroglycerin 0.3 mg Tablet, Sublingual 0.3 mg SUBLINGUAL Q5-15M PRN0RF Rx Instructions: do not exceed 3 doses per episode polyethylene glycol 3350 17 gram Powder In Packet 17 g PO DAILY Qty: 30 0RF prednisone 20 mg Tablet 40 mg PO DAILY Qty: 4 0RF Rx Instructions: x 2 days tamsulosin 0.4 mg Capsule 0.4 mg PO DAILY Qty: 30 0RF docusate sodium [Colace] 100 mg Capsule 100 mg PO DAILY Qty: 30 0RF Discharge Instructions Instructions: COPD (Chronic Obstructive Pulmonary Disease) (DC) Additional Instructions: taper steroids as directed, start with 60 mg daily for 3 days, then 50 mg daily for 3 days, then 40 mg daily for 3 days, then 30 mg daily for 3 days, then 20 mg daily for 3 days, then 10 mg daily for 3 days, then 5 mg daily for 3 days then stop STOP SMOKING Stand Alone Forms: Nursing Discharge Form Referrals: Lorrie Crespo [Primary Care Provider] - 02/25/22 11:40 am Activity:: Activity as Tolerated Equipment/Supplies:: No Equipment Needed Diet:: As Tolerated Discharge Orders Discharge Orders: Discharge Order (Routine); Ordered 02/23/22 Ordered By: Pham Ngo DS: Summary Time Spent with Patient providing and/or coordinating discharge services: Greater than 30 minutes Status at Discharge Functional status at discharge: independent ambulation Overall status at discharge: patient is back to baseline Mental Status: mental status grossly normal Speech and Movement: speech and movement normal Mood: congruent mood Affect: normal affect Exam Const General: cooperative, comfortable, no acute distress and disheveled (older than stated age) Neck Neck: normal visual inspection Resp Auscultation: diminished lung sounds, no rales, no rhonchi and wheezes Cardio Rate: regular rate Rhythm: regular rhythm GI Palpation: soft Skin General skin exam: no rashes or lesions noted Extrem General: normal to inspection, pedal edema present and calf tenderness Psych Mental Status: mental status grossly normal Speech and Movement: speech and movement normal Mood: congruent mood Affect: normal affect DS: Data Vitals/I&O Vitals and I&O: Vital Signs Temperature 36.8 C 02/23/22 11:45 Temperature Source Tympanic 02/23/22 11:45 Pulse 110 H 02/23/22 11:45 Pulse Rhythm Regular 02/23/22 11:02 Pulse 93 H 02/20/22 22:10 Respiratory Rate 23 02/23/22 11:45 Respiratory Effort 02/23/22 11:02 Respiratory Depth Normal 02/23/22 11:02 Respiratory Pattern Normal 02/23/22 11:02 Blood Pressure 136/85 02/23/22 11:45 Blood Pressure Position Sitting 02/20/22 20:13 Pulse Oximetry 88 L 02/23/22 11:45 Oxygen Delivery Method Room Air 02/23/22 11:45 Oxygen Flow Rate 0 02/23/22 11:45 Pain Level 9 02/23/22 11:45 Comment 02/23/22 08:01 Intake & Output 02/22/22 02/23/22 02/23/22 23:59 11:59 23:59 Intake Total 480 / 960 480 / 960 Output Total 300 / 1700 1500 / 1500 Balance -300 / -1700 -1020 / -540 480 / -540 Intake: Oral 480 / 960 480 / 960 Output: Urine 300 / 1700 1500 / 1500 Other: Urine Color Yellow Yellow Urine Appearance Clear Clear Urine Odor Normal None Comment urinate on floor confused where he was Voiding Methods Urinal Toilet Urinal Data Completed and Pending Labs on day of discharge: Labs from last 24 hours 02/23/22 02/20/22 05:35 20:26 WBC 12.91 H RBC 5.52 Hgb 17.2 19.1 H* Hct 51.8 H MCV 94 MCH 31.2 MCHC 33.2 RDW 13.5 Plt Count 198 MPV 10.7 Path Cons Comment SEE COMMENT PFSH All Active Problems (Updated 02/21/22 @ 17:37 by Pham Ngo NP) COPD exacerbation (Acute) COPD (chronic obstructive pulmonary disease) (Chronic) Altered mental status (Acute) Ambulatory dysfunction (Acute) Adult failure to thrive (Acute) Bullae (Acute) Cigarette smoker (Acute) Cognitive impairment (Chronic) Ambulatory dysfunction (Chronic) DVT prophylaxis (Acute) Current smoker (Acute) Lung bullae (Acute) Acute exacerbation of chronic obstructive pulmonary disease (Acute) Acute on chronic systolic CHF (congestive heart failure) (Acute) Musculoskeletal chest pain (Chronic) Lethargy (Acute) BPH (benign prostatic hyperplasia) (Chronic) Lung disease (Acute) Arthritis (Acute) COPD exacerbation (Acute) Noncompliance with medication regimen (Acute) Depression (Chronic) Generalized weakness (Acute) UTI (urinary tract infection) (Acute) Discharge planning issues (Acute) Polysubstance abuse (Chronic) Confusion (Acute) Auditory hallucination (Chronic) Orthostatic hypotension (Acute) PTSD (post-traumatic stress disorder) (Chronic) Discharge planning issues (Acute) Ambulatory dysfunction (Acute) Dyspnea (Acute) COPD (chronic obstructive pulmonary disease) (Chronic) DVT prophylaxis (Acute) Left rib fracture (Acute) Rib fracture (Acute) Syncope (Chronic) Severe chronic obstructive pulmonary disease (Chronic) Biventricular implantable cardioverter-defibrillator (ICD) in situ (Chronic) Mode:DDD, Low rate 60bpm, Atrial lead: medtronic 5076, SN: [id number] 09/27/14; RV lead Medtronic 6935M SN: [id number] 09/27/14; LV lead Medtronic 4396, SN; TRACIE [id number] 09/27/14 (updated 03/11/20) Systolic and diastolic CHF, chronic (Chronic) LBBB (left bundle branch block) (Chronic) Nonischemic dilated cardiomyopathy (Chronic) Medical History Acquired deformity of left hand Agoraphobia Anxiety Anxiety with depression Cardiomyopathy Chest pain CHF (congestive heart failure) Chronic pain syndrome Constipation Cyst Diarrhea Dizziness DVT prophylaxis Erectile dysfunction Fatigue Hallucination Hand paresthesia Heart disease History of suicidal ideation History of tobacco abuse Hyperlipidemia Impacted ear wax Metacarpophalangeal joint pain Musculoskeletal chest pain Pacemaker Pain in right hip Panic anxiety syndrome Skin lesion Tobacco use Surgical History Status post biventricular pacemaker Family History Mother , 2008 COPD (chronic obstructive pulmonary disease) Social History Smoking/Tobacco Use Status: Current every day Tobacco Type: cigarettes Smoking risk assessment performed?: Yes Alcohol Intake: former Drug use: Never Household members: none Pets and animals: No What type of physical activity do you participate in: none Seatbelt use: always Do you feel safe at home: Yes Do you feel safe in your relationship?: Yes Additional Social history: lives alone
--- NOTE | 2022-02-23 19:00 | CMDISCH_ITS ---
- If Service Date Differs Date of service: 02/23/22 Time of Service: 19:00 LACE Index Scoring Tool - Questions: Length of Stay (in days): 3 Acuity (Admit via E.D.?): Yes Comorbidities: Diabetes w/o Complication, Congestive Heart Failure, Chronic Pulmonary Disease E.D. Visits: 7 - Answers: Total Score: 15 Risk of Readmission: High Risk Care Management Discharge Reason for Hospitalization: COPD exacerbation. Discharge Plan: William returned home today after being medically cleared by MD. He is followed closely by [facility], who delivers his medications daily. He was driven home via private vehicle by a friend. He will follow up with his PCP and discharge plan of care. Patient/Family Education Needs: Review discharge instructions and limitations, discussion of self care needs including ask me three and goals of care. Services Needed at Discharge: Home Health Care Services (resume PT)
== END 2022-02-23 14:20 | disposition home or self-care (01) | DRG 191 ==
LOC: ER 21:42 → MS 22:34
PROVIDERS: Family Medicine; Admitting Provider Family Medicine; Emergency Provider Emergency Medicine; PCP Nurse Practitioner Family; Visit Provider Family Medicine
DX: J44.1 Chronic obstructive pulmonary disease with (acute) exacerbation (principal); I50.42 Chronic combined systolic (congestive) and diastolic (congestive) heart failure; I42.0 Dilated cardiomyopathy; F33.3 Major depressive disorder, recurrent, severe with psychotic symptoms; R44.0 Auditory hallucinations; F17.210 Nicotine dependence, cigarettes, uncomplicated; Z95.810 Presence of automatic (implantable) cardiac defibrillator; I44.7 Left bundle-branch block, unspecified; R26.2 Difficulty in walking, not elsewhere classified; Z91.14 Patient's other noncompliance with medication regimen; N40.0 Benign prostatic hyperplasia without lower urinary tract symptoms; R41.89 Other symptoms and signs involving cognitive functions and awareness; R53.1 Weakness; G89.4 Chronic pain syndrome; K59.00 Constipation, unspecified; E78.5 Hyperlipidemia, unspecified; F41.0 Panic disorder [episodic paroxysmal anxiety]
CPT/HCPCS: 36415; 80048; 80053; 84145; 85027; 87637; 93005; 94640; 96360; 96361; 99284; 99285; J1650; 71045; 80178; 83735; 84484; 85025; 93010; 99222; 99233; 99239; J2930; J7620

== ENCOUNTER 2022-02-25 16:15 | Outpatient (REF) | payer MEDICARE, SELFPAY ==
[2022-02-25 16:28] LABS: Hemoglobin A1C 5.8 % (<5.7)
[2022-02-25 17:09] LABS: Calculated LDL 71 mg/dL (<100); Cholesterol 165 mg/dL (<200); Ferritin 210 ng/mL (26-388); HDL Cholesterol 56 mg/dL (40-60); Triglyceride 190 mg/dL (<150); Vitamin B12 443 pg/mL (193-986)
[2022-02-25 22:36] LABS: T3,Free 4.7 pg/mL (2.8-5.3)
== END 2022-02-25 16:16 | disposition home or self-care (01) ==
LOC: NCHCN 16:15
PROVIDERS: PCP Nurse Practitioner Family; Visit Provider Nurse Practitioner Family
DX: R53.83 Other fatigue (principal); F41.1 Generalized anxiety disorder; Z51.81 Encounter for therapeutic drug level monitoring; I50.42 Chronic combined systolic (congestive) and diastolic (congestive) heart failure; R94.6 Abnormal results of thyroid function studies
CPT/HCPCS: 80061; 82607; 82728; 83036; 84481

== ENCOUNTER 2022-03-11 15:57 | Outpatient (REF) | payer MEDICARE, SELFPAY ==
[2022-03-11 20:50] LABS: Lithium 0.8 mmol/l (0.6-1.2); MCHC 33.7 % (32.0-36.0); MCV 95 fL (80-95); MPV 11.3 fL (8.0-11.0); Platelet Count 158 10^3/uL (130-400); RDW 13.1 % (11.8-14.1); RDW-SD 46.5 fL; WBC 16.35 10^3/uL (4.4-10.8)
[2022-03-11 20:56] LABS: ALT 43 U/L (16-63); AST 20 U/L (15-37); Albumin 3.8 g/dL (3.4-5.0); Alkaline Phosphatase 99 U/L (46-116); Anion Gap 10.6 mmol/L (3-11); BUN 16 mg/dL (7-18); Bilirubin, Total 0.5 mg/dL (0.2-1.0); CO2 25.4 mmol/L (21.0-32.0); CREATININE 1.1 mg/dL (0.70-1.30); Chloride 101 mmol/L (98-107); Glucose 112 mg/dL (74-106); Potassium 4.7 mmol/L (3.5-5.1); Sodium 137 mmol/L (136-145); Total Protein 6.7 g/dL (6.4-8.2)
[2022-03-11 21:36] LABS: HGB 19.2 g/dL (13.5-17.5)
== END 2022-03-11 15:58 | disposition home or self-care (01) ==
LOC: NCHCN 15:57
PROVIDERS: PCP Nurse Practitioner Family; Visit Provider Nurse Practitioner Family
DX: R41.82 Altered mental status, unspecified (principal); Z51.81 Encounter for therapeutic drug level monitoring; Z79.899 Other long term (current) drug therapy
CPT/HCPCS: 80053; 85027; 80178

== ENCOUNTER 2022-03-25 19:01 | Outpatient (CLI) | payer MEDICARE, SELFPAY ==
--- NOTE | 2022-03-25 16:20 | DI.RAD_ITS ---
Exam(s) XR CHEST 2V PA LATERAL EXAM: XR CHEST 2V PA LATERAL CLINICAL HISTORY: CHEST WALL PAIN R07.89, ? RIB FX,CONTUSION,MOVEMENT OF PACEMAKER TECHNIQUE: COMPARISON: CR,XR XR CHEST 2V PA LATERAL from 02/05/2022 CR XR CHEST 1V IN DI DEPT from 02/18/2022 CR,XR XR PORTABLE CHEST AP from 02/20/2022 FINDINGS: The heart is not enlarged. There is a transvenous cardiac pacemaker in position. The lungs are pred ominantly clear with some changes of scarring. No pleural effusion seen. IMPRESSION: no evidence of acute process. RADIATION DOSE DELIVERED: Total DLP
== END 2022-03-25 19:21 ==
LOC: DI 19:02
PROVIDERS: PCP Nurse Practitioner Family; Visit Provider Physician Assistant Medical
DX: R07.89 Other chest pain (principal); Z95.0 Presence of cardiac pacemaker; W19.XXXA Unspecified fall, initial encounter
CPT/HCPCS: 71046

== ENCOUNTER 2022-03-28 12:05 | Inpatient (IN) | payer MEDICARE, SELFPAY ==
[2022-03-28] VITALS (20 sets, daily range): BP systolic 91–117; BP diastolic 54–73; PULSE 87–118; RESP 4–26; TEMP 37–37.8; O2SAT 88–95
--- NOTE | 2022-03-28 12:00 | DI.RAD_ITS ---
Exam(s) XR PORTABLE CHEST AP EXAM: XR PORTABLE CHEST AP CLINICAL HISTORY: copd exacerbation. TECHNIQUE: 2D digital imaging was performed. COMPARISON: CR XR CHEST 2V PA LATERAL from 03/25/2022 FINDINGS: Single AP portable view. Left subclavian cardiac pacemaker is again noted. Heart size is upper normal. The mediastinum is not widened. Severe COPD changes again noted including large bulla in the left upper lobe region. There are increasing patchy infiltrates in the mid-lower lung chand bilaterally. No pleural effusio ns. No pulmonary edema. IMPRESSION: Severe COPD. Infiltrates developing in both lower lung chand. No obvious pleural effusions. DATA REPOSITORY: RADIATION DOSE DELIVERED: All CT scans at this facility use at least one of these dose optimization techniques: automated exposure control; mA and/or kV adjustment per patient size (includes targeted e xams where dose is matched to clinical indication); or iterative reconstruction.
--- NOTE | 2022-03-28 12:00 | RT.EKG_ITS ---
APPROVED REPORT Exam: Resting ECG Reason for Exam: chest pain Patient Location: E HR:115 bpm ECG Measurements Heart Rate 115 AXIS IL 119 P 76 QRSd 132 QRS 133 QT 343 T 50 QTc 474 Conclusion Atrial-sensed ventricular-paced rhythm...ventricular pacing tracks p-waves Biventricular paced rhythm...non-simultaneous bi-vent pacing
--- NOTE | 2022-03-28 12:05 | W.ED.GENAD ---
Discharge Plan Discharge Details Chief Complaint: Chest/Rib Primary Care Provider: Lorrie Crespo ED Provider: Yordy Sterling Home Meds and New Rx's Prescriptions: No Action quetiapine [Seroquel] 400 mg tablet 400 mg PO HS Rx Instructions: give with 100mg tablet for total of 500 mg fluticasone propion-salmeterol [Advair Diskus] 250-50 mcg/dose blister with device 1 inh inhalation BID amitriptyline 25 mg tablet 25 mg PO QHS acetaminophen 325 mg capsule 325 mg PO DAILY PRN PRN montelukast 10 mg tablet 10 mg PO DAILY bupropion HCl 300 mg tablet extended release 24 hr 300 mg PO QAM Qty: 10 0RF Label Comments: total dose 450 mg Rx Instructions: Total dose: 450mg XL daily pravastatin 20 mg tablet 20 mg PO QHS Qty: 10 0RF bupropion HCl 150 mg tablet extended release 24 hr 150 mg PO QAM Label Comments: total dose 450 mg Rx Instructions: Total dose: 450mg XL daily quetiapine 100 mg Tablet 100 mg PO HS Rx Instructions: give with 400mg tablet for 500mg total pantoprazole 40 mg Tablet,Delayed Release (Dr/Ec) 40 mg PO DAILY@0730 Qty: 30 0RF clonazepam 1 mg tablet 1 mg PO BID Label Comments: Take 1 tablet by mouth twice a day benztropine 0.5 mg Tablet 0.5 mg PO HS Nicotrol 10 mg Cartridge 1 inh INHALATION UD MDD 16 Rx Instructions: NTE 16 cartridges per day naloxone [Narcan] 4 mg/actuation [place],Non-Aerosol 4 mg INTRANASAL PRN PRN prednisone 10 mg tablet See Rx Instructions .ROUTE .COMPLEX Qty: 60 0RF Rx Instructions: 60 mg daily for 3 days, 50 mg for 3 days, 40 mg for 3 days, 30 mg for 3 days, 20 mg for 3 days, 10 mg for 3 days, 5 mg for 3 days then stop lithium carbonate 300 mg capsule 300 mg PO BID Label Comments: take 1 cap po bid albuterol sulfate [ProAir HFA] 90 mcg/actuation Hfa Aerosol Inhaler 2 puff INHALATION DIRECTED PRN Rx Instructions: Q4-6H PRN gabapentin 400 mg Capsule 400 mg PO TID ipratropium-albuterol 0.5 mg-3 mg(2.5 mg base)/3 mL solution for nebulization 3 ml INHALATION Q6H PRN PRN Label Comments: USE 1 AMPULE VIA NEBULIZER EVERY 6 HOURS NEEDED nitroglycerin 0.3 mg Tablet, Sublingual 0.3 mg SUBLINGUAL Q5-15M PRN Rx Instructions: do not exceed 3 doses per episode polyethylene glycol 3350 17 gram Powder In Packet 17 g PO DAILY Qty: 30 0RF prednisone 20 mg Tablet 40 mg PO DAILY Qty: 4 0RF Rx Instructions: x 2 days tamsulosin 0.4 mg Capsule 0.4 mg PO DAILY Qty: 30 0RF docusate sodium [Colace] 100 mg Capsule 100 mg PO DAILY Qty: 30 0RF Medical Decision Making Patient arrives to the emergency department shortness of breath secondary to COPD and also splinting from a fall. Patient was febrile. He was diagnosed with pneumonia given the patchy infiltrates on chest x-ray. Antibiotics ordered. Case discussed with hospitalist. Patient to be admitted for pneumonia as well as COPD exacerbation HPI General Date/Time Provider Initiated Documentation: 03/28/22 12:35. HPI Narrative: 48-year-old gentleman with a history of COPD, chronic congestive heart failure, nonischemic dilated cardiomyopathy presents to the emergency department with a 2-day history of increased shortness of breath. Apparently the precipitating factor was a fall onto his right chest 2 days ago. Since then he has been having more difficulty catching his breath. He states he is compliant with all his medications. The reason for the fall is unclear to me that he cannot elaborate on. Holding his chest helps with the pain. Movement exacerbates the pain. However he arrives febrile to the emergency department he was unaware that he was having a fever. No increased cough. Related Data Home Medications Medication Instructions Recorded Confirmed bupropion HCl 300 mg 24 hr tablet, 300 mg PO QAM #10 tabs 03/17/20 02/21/22 extended release pravastatin 20 mg tablet 20 mg PO QHS #10 tabs 03/17/20 02/20/22 bupropion HCl 150 mg 24 hr tablet, 150 mg PO QAM 01/21/21 02/21/22 extended release amitriptyline 25 mg tablet 25 mg PO QHS 02/18/21 02/20/22 fluticasone 250 mcg-salmeterol 50 1 inh inhalation BID 02/18/21 02/20/22 mcg/dose blistr powdr for inhalation (Advair Diskus) quetiapine 400 mg tablet (Seroquel) 400 mg PO HS 02/18/21 02/20/22 quetiapine 100 mg tablet 100 mg PO HS 04/29/21 02/20/22 pantoprazole 40 mg tablet,delayed 40 mg PO DAILY@0730 #30 tabs 05/01/21 02/21/22 release clonazepam 1 mg tablet 1 mg PO BID 07/21/21 02/20/22 albuterol sulfate 90 mcg/actuation 2 puff inhalation DIRECTED PRN 02/05/22 02/20/22 aerosol inhaler (ProAir HFA) docusate sodium 100 mg capsule 100 mg PO DAILY #30 caps 02/19/22 02/21/22 (Colace) gabapentin 400 mg capsule 400 mg PO TID 02/19/22 02/21/22 ipratropium 0.5 mg-albuterol 3 mg 3 ml inhalation Q6H PRN PRN 02/19/22 02/20/22 (2.5 mg base)/3 mL nebulization soln nitroglycerin 0.3 mg sublingual 0.3 mg sublingual Q5-15M PRN 02/19/22 02/21/22 tablet polyethylene glycol 3350 17 gram 17 g PO DAILY #30 ea 02/19/22 02/20/22 oral powder packet tamsulosin 0.4 mg capsule 0.4 mg PO DAILY #30 caps 02/19/22 02/21/22 benztropine 0.5 mg tablet 0.5 mg PO HS 02/21/22 02/21/22 naloxone 4 mg/actuation nasal 4 mg intranasal PRN PRN 02/21/22 02/21/22 spray (Narcan) nicotine 10 mg inhalation 1 inh inhalation UD 02/21/22 02/21/22 cartridge (Nicotrol) prednisone 10 mg tablet See Rx Instructions .Route 02/23/22 .COMPLEX #60 tabs Previous Rx's Medication Instructions Recorded bupropion HCl 300 mg 24 hr tablet, 300 mg PO QAM #10 tabs 03/17/20 extended release pravastatin 20 mg tablet 20 mg PO QHS #10 tabs 03/17/20 pantoprazole 40 mg tablet,delayed 40 mg PO DAILY@0730 #30 tabs 05/01/21 release docusate sodium 100 mg capsule 100 mg PO DAILY #30 caps 02/19/22 (Colace) polyethylene glycol 3350 17 gram 17 g PO DAILY #30 ea 02/19/22 oral powder packet tamsulosin 0.4 mg capsule 0.4 mg PO DAILY #30 caps 02/19/22 prednisone 10 mg tablet See Rx Instructions .Route 02/23/22 .COMPLEX #60 tabs Allergies Allergy/AdvReac Type Severity Reaction Status Date / Time No Known Allergies Allergy Unverified 03/28/22 12:26 General MOLLY: 3 Review of Systems Narrative: Constitutional negative for quantified fevers at home. Negative chills. Positive malaise and fatigue HEENT negative Cardiovascular no palpitations. No chest pressure Respiratory see HPI GI no abdominal pain no nausea no vomiting no diarrhea negative MSK no myalgias arthralgias. Positive for right-sided back pain. Skin no rashes Neuro no headaches no paresthesias no focal weakness Psych negative Endo negative hematological not on blood thinners Allergy neg PFSH All Active Problems (Updated 03/28/22 @ 13:31 by Pham Ngo NP) Pneumonia (Acute) COPD exacerbation (Acute) COPD (chronic obstructive pulmonary disease) (Chronic) Altered mental status (Acute) Ambulatory dysfunction (Acute) Adult failure to thrive (Acute) Bullae (Acute) Cigarette smoker (Acute) Cognitive impairment (Chronic) Ambulatory dysfunction (Chronic) Current smoker (Acute) Lung bullae (Acute) Acute exacerbation of chronic obstructive pulmonary disease (Acute) Acute on chronic systolic CHF (congestive heart failure) (Acute) Musculoskeletal chest pain (Chronic) Lethargy (Acute) BPH (benign prostatic hyperplasia) (Chronic) Lung disease (Acute) Arthritis (Acute) COPD exacerbation (Acute) Noncompliance with medication regimen (Acute) Depression (Chronic) Generalized weakness (Acute) UTI (urinary tract infection) (Acute) Polysubstance abuse (Chronic) Confusion (Acute) Auditory hallucination (Chronic) Orthostatic hypotension (Acute) PTSD (post-traumatic stress disorder) (Chronic) Discharge planning issues (Acute) Ambulatory dysfunction (Acute) Dyspnea (Acute) COPD (chronic obstructive pulmonary disease) (Chronic) DVT prophylaxis (Acute) Left rib fracture (Acute) Rib fracture (Acute) Syncope (Chronic) Severe chronic obstructive pulmonary disease (Chronic) Biventricular implantable cardioverter-defibrillator (ICD) in situ (Chronic) Mode:DDD, Low rate 60bpm, Atrial lead: medtronic 5076, SN: [id number] 09/27/14; RV lead Medtronic 6935M SN: [id number] 09/27/14; LV lead Medtronic 4396, SN; [id number] 09/27/14 (updated 03/11/20) Systolic and diastolic CHF, chronic (Chronic) LBBB (left bundle branch block) (Chronic) Nonischemic dilated cardiomyopathy (Chronic) Medical History Acquired deformity of left hand Agoraphobia Anxiety Anxiety with depression Cardiomyopathy Chest pain CHF (congestive heart failure) Chronic pain syndrome Constipation Cyst Diarrhea Dizziness DVT prophylaxis Erectile dysfunction Fatigue Hallucination Hand paresthesia Heart disease History of suicidal ideation History of tobacco abuse Hyperlipidemia Impacted ear wax Metacarpophalangeal joint pain Musculoskeletal chest pain Pacemaker Pain in right hip Panic anxiety syndrome Skin lesion Tobacco use Surgical History Status post biventricular pacemaker Family History Mother , 2008 COPD (chronic obstructive pulmonary disease) Social History Smoking/Tobacco Use Status: Former Tobacco Use Quit Date: 03/08/22 Pack-years: 120 Smoking risk assessment performed?: Yes Alcohol Intake: former Drug use: Never Substance use type: does not use Household members: none Pets and animals: No What type of physical activity do you participate in: none Seatbelt use: always Do you feel safe at home: Yes Do you feel safe in your relationship?: Yes Additional Social history: lives alone Exam Narrative Exam Narrative: Awake alert oriented x3 calm no respiratory distress. Cooperative pleasant PERRLA EOMI MMM anicteric Supple neck Chest decreased breath sounds bilaterally no crepitus. She does have scattered wheezing. No rhonchi, poor respiratory effort Heart regular rhythm and rate GI soft nondistended nontender Back normal Skin good cap refill Neuro No gross intact Ext no edema psych normal mood and affect
[2022-03-28 12:37] LABS: Abs Immature Grans 0.06 10^3/uL (0.0-0.06); Absolute Basophil Count 0.02 10^3/uL (0.0-0.2); Absolute Eosinophil Count 0.01 10^3/uL (0.0-0.7); Absolute Lymphocyte Count 0.26 10^3/uL (1.2-3.4); Absolute Monocyte Count 0.61 10^3/uL (0.1-0.8); Absolute Neutrophil Count 9.25 10^3/uL (1.2-6.7); Basophils % 0.2; Eosinophils % 0.1; HCT 43.2 % (40.0-50.0); HGB 14.5 g/dL (13.5-17.5); Immature Grans % 0.6; Lymphocytes % 2.5; MCH 31.3 pg (27.0-33.0); MCHC 33.6 % (32.0-36.0); MCV 93 fL (80-95); MPV 10.3 fL (8.0-11.0); Neutrophils % 90.6; Platelet Count 148 10^3/uL (130-400); RBC 4.64 10^6/uL (4.36-5.78); RDW 12.5 % (11.8-14.1); RDW-SD 43.1 fL; WBC 10.21 10^3/uL (4.4-10.8)
[2022-03-28 12:57] LABS: ALT 74 U/L (16-63); AST 45 U/L (15-37); Albumin 2.6 g/dL (3.4-5.0); Alkaline Phosphatase 83 U/L (46-116); Anion Gap 6.8 mmol/L (3-11); BUN 8 mg/dL (7-18); Bilirubin, Total 0.4 mg/dL (0.2-1.0); CO2 27.2 mmol/L (21.0-32.0); Calcium 8.9 mg/dL (8.5-10.1); Chloride 101 mmol/L (98-107); Glucose 175 mg/dL (74-106); NT-proBNP 203 pg/mL (<300); Potassium 3.6 mmol/L (3.5-5.1); Sodium 135 mmol/L (136-145); Total Protein 6.7 g/dL (6.4-8.2); Troponin I < 50 ng/L (<or=60)
--- NOTE | 2022-03-28 12:57 | DI.VRAD_ITS ---
PROCEDURE INFORMATION: Exam: XR Chest Exam date and time: 03/28/2022 12:30 PM Age: 56 years old Clinical indication: Other: Copd exacerbation TECHNIQUE: Imaging protocol: XR of the chest. Views: 1 view. COMPARISON: CR XR CHEST 2V PA LATERAL 03/25/2022 4:20 PM FINDINGS: Tubes, catheters and devices: Unchanged left pacemaker/AICD. Lungs: Redemonstration of emphysematous changes. Patchy opacities in both lower lungs, new since prior. Pleural spaces: No pneumothorax or sizable pleural effusion. Heart/Mediastinum: Similar cardiomediastinal silhouette. Aortic atherosclerosis. Bones/joints: Degenerative changes in visualized spine. IMPRESSION: COPD. Patchy opacities in both lower lungs, new since prior and concerning for atelectasis or infiltrates. Dictated and Authenticated by: Edwar Falcon MD. Ordering:GATTIO Scales MD
[2022-03-28] MEDS: Albuterol/Ipratropium 3 ML UPD VIAL UPD ×2 (13:07→16:19)
[2022-03-28] MEDS: Albuterol 2.5 MG/3 ML INH SOLN VIAL UPD ×2 (13:07→20:50)
[2022-03-28] MEDS: MAGNESIUM SULFATE 1 GM/100 ML BAG IVPB (13:07)
[2022-03-28] MEDS: Acetaminophen 325 MG TAB 650 MG PO ×3 (13:08→22:50)
[2022-03-28] MEDS: Normal Saline 1,000 ML 1000 ML IV (13:08)
[2022-03-28] MEDS: methylPREDNISolone SUCC 125 MG VIAL IVP (13:08)
[2022-03-28 13:16] LABS: Source Nasal/Nares
--- NOTE | 2022-03-28 13:26 | HPE_ITS ---
Date of service: 03/28/22 Time of Service: 12:26 Assessment and Plan Assessment and plan (1) Pneumonia: Status: Acute Assessment and plan: started on levaquin and vanco in the ED d/t recent hospitalization will continue levaquin day 10/31 continue inhalers cultures pending (2) COPD exacerbation: Status: Acute Assessment and plan: requiring oxygen, wean as able. received IV steroids in ED, continue with burst oral continue respiratory inhalers (3) Cigarette smoker: Status: Acute Assessment and plan: continue nicotine replacement while hospitalized. (4) Noncompliance with medication regimen: Status: Acute Assessment and plan: receives his meds in bubble packs has been residing at the care bed followed by KATHARINA (5) BPH (benign prostatic hyperplasia): Status: Chronic Assessment and plan: continue tamsulosin, voiding well. (6) Depression: Status: Chronic Assessment and plan: continue home medication Qualifiers: Active/Remission status: currently active Depression Type: major depressive disorder Major depression episode severity: severe Major depression recurrence: recurrent Psychotic features: with psychotic features Qualified Code(s): F33.3 - Major depressive disorder, recurrent, severe with psychotic symptoms (7) Auditory hallucination: Status: Chronic Assessment and plan: stable on his seroquel (8) DVT prophylaxis: Status: Deleted Assessment and plan: enoxaparin daily (9) Discharge planning issues: Status: Deleted Assessment and plan: will discharge when medically stable (has been living at the care bed and anticipate a return there) discussed with DR Jara History of Present Illness History of Present Illness Chief Complaint: shortness of breath Narrative: 2 days of increasing shortness of breath. work up in ED shows hypoxia with sats in the 80's, and new infiltrates on xray concerning for pneumonia. given updrafts, IV steroids, and broad spectrum antibiotics in the ED. symptoms improved and hospitalist requested admission. [facility] All Active Problems (Updated 03/28/22 @ 13:31 by Pham Ngo NP) Pneumonia (Acute) COPD exacerbation (Acute) COPD (chronic obstructive pulmonary disease) (Chronic) Altered mental status (Acute) Ambulatory dysfunction (Acute) Adult failure to thrive (Acute) Bullae (Acute) Cigarette smoker (Acute) Cognitive impairment (Chronic) Ambulatory dysfunction (Chronic) Current smoker (Acute) Lung bullae (Acute) Acute exacerbation of chronic obstructive pulmonary disease (Acute) Acute on chronic systolic CHF (congestive heart failure) (Acute) Musculoskeletal chest pain (Chronic) Lethargy (Acute) BPH (benign prostatic hyperplasia) (Chronic) Lung disease (Acute) Arthritis (Acute) COPD exacerbation (Acute) Noncompliance with medication regimen (Acute) Depression (Chronic) Generalized weakness (Acute) UTI (urinary tract infection) (Acute) Polysubstance abuse (Chronic) Confusion (Acute) Auditory hallucination (Chronic) Orthostatic hypotension (Acute) PTSD (post-traumatic stress disorder) (Chronic) Discharge planning issues (Acute) Ambulatory dysfunction (Acute) Dyspnea (Acute) COPD (chronic obstructive pulmonary disease) (Chronic) DVT prophylaxis (Acute) Left rib fracture (Acute) Rib fracture (Acute) Syncope (Chronic) Severe chronic obstructive pulmonary disease (Chronic) Biventricular implantable cardioverter-defibrillator (ICD) in situ (Chronic) Mode:DDD, Low rate 60bpm, Atrial lead: medtronic 5076, SN: [id number] 09/27/14; RV lead Medtronic 6935M SN: [id number] 09/27/14; LV lead Medtronic 4396, SN; TRACIE [id number] 09/27/14 (updated 03/11/20) Systolic and diastolic CHF, chronic (Chronic) LBBB (left bundle branch block) (Chronic) Nonischemic dilated cardiomyopathy (Chronic) Medical History Acquired deformity of left hand Agoraphobia Anxiety Anxiety with depression Cardiomyopathy Chest pain CHF (congestive heart failure) Chronic pain syndrome Constipation Cyst Diarrhea Dizziness DVT prophylaxis Erectile dysfunction Fatigue Hallucination Hand paresthesia Heart disease History of suicidal ideation History of tobacco abuse Hyperlipidemia Impacted ear wax Metacarpophalangeal joint pain Musculoskeletal chest pain Pacemaker Pain in right hip Panic anxiety syndrome Skin lesion Tobacco use Surgical History Status post biventricular pacemaker Family History Mother , 2008 COPD (chronic obstructive pulmonary disease) Social History Smoking/Tobacco Use Status: Former Tobacco Use Quit Date: 03/08/22 Pack-years: 120 Smoking risk assessment performed?: Yes Alcohol Intake: former Drug use: Never Substance use type: does not use Household members: none Pets and animals: No What type of physical activity do you participate in: none Seatbelt use: always Do you feel safe at home: Yes Do you feel safe in your relationship?: Yes Additional Social history: lives alone Meds Allergies and Home Medications Allergies Allergy/AdvReac Type Severity Reaction Status Date / Time No Known Allergies Allergy Unverified 03/28/22 12:26 Home Medications Medication Instructions Recorded Confirmed Type bupropion HCl 300 mg 24 hr tablet, 300 mg PO QAM #10 tabs 03/17/20 03/28/22 Rx extended release pravastatin 20 mg tablet 20 mg PO QHS #10 tabs 03/17/20 03/28/22 Rx bupropion HCl 150 mg 24 hr tablet, 150 mg PO QAM 01/21/21 03/28/22 History extended release amitriptyline 25 mg tablet 25 mg PO QHS 02/18/21 03/28/22 History fluticasone 250 mcg-salmeterol 50 1 inh inhalation BID 02/18/21 03/28/22 History mcg/dose blistr powdr for inhalation (Advair Diskus) quetiapine 400 mg tablet (Seroquel) 200 mg PO HS 02/18/21 02/20/22 History quetiapine 100 mg tablet 100 mg PO HS 04/29/21 03/28/22 History pantoprazole 40 mg tablet,delayed 40 mg PO DAILY@0730 #30 tabs 05/01/21 03/28/22 Rx release clonazepam 1 mg tablet 1 mg PO BID 07/21/21 03/28/22 History albuterol sulfate 90 mcg/actuation 2 puff inhalation Q4H WHILE AWAKE 02/05/22 03/28/22 History aerosol inhaler (ProAir HFA) PRN docusate sodium 100 mg capsule 100 mg PO DAILY #30 caps 02/19/22 03/28/22 Rx (Colace) gabapentin 400 mg capsule 400 mg PO TID 02/19/22 03/28/22 History ipratropium 0.5 mg-albuterol 3 mg 3 ml inhalation Q6H PRN PRN 02/19/22 03/28/22 History (2.5 mg base)/3 mL nebulization soln nitroglycerin 0.3 mg sublingual 0.3 mg sublingual Q5-15M PRN 02/19/22 03/28/22 History tablet polyethylene glycol 3350 17 gram 17 g PO DAILY #30 ea 02/19/22 03/28/22 Rx oral powder packet tamsulosin 0.4 mg capsule 0.4 mg PO DAILY #30 caps 02/19/22 03/28/22 Rx benztropine 0.5 mg tablet 0.5 mg PO HS 02/21/22 03/28/22 History naloxone 4 mg/actuation nasal 4 mg intranasal PRN PRN 02/21/22 03/28/22 History spray (Narcan) nicotine 10 mg inhalation 1 inh inhalation UD 02/21/22 02/21/22 History cartridge (Nicotrol) acetaminophen 325 mg capsule mg DAILY AM 03/28/22 History (Tylenol) acetaminophen 325 mg tablet 650 mg PRN 03/28/22 History bacitracin 500 unit/gram topical 1 applic topical BID PRN 03/28/22 03/28/22 History packet budesonide-formoterol HFA 80 2 puff inhalation BID 03/28/22 03/28/22 History mcg-4.5 mcg/actuation aerosol inhaler calcium carbonate 200 mg calcium 200 mg PO Q2H WHILE AWAKE PRN 03/28/22 03/28/22 History (500 mg) chewable tablet (Tums) diphenhydramine HCl 25 mg tablet 25 mg PO Q6H WHILE AWAKE PRN 03/28/22 03/28/22 History guaifenesin 100 mg/5 mL oral liquid 200 mg PO Q4H PRN 03/28/22 03/28/22 History montelukast 10 mg tablet 10 mg PO DAILY 03/28/22 03/28/22 History nicotine 21 mg/24 hr daily 1 patch transdermal DAILY 03/28/22 03/28/22 History transdermal patch prednisone 20 mg tablet 40 mg PO DAILY 03/28/22 03/28/22 History quetiapine 200 mg tablet mg HS 03/28/22 History tiotropium bromide 18 mcg capsule 1 cap inhalation DAILY 03/28/22 03/28/22 History with inhalation device Exam Const General: cooperative, comfortable and no acute distress Nutritional Appearance: overweight Orientation: alert, awake and oriented x3 HENMT Head: normal to inspection, normocephalic and atraumatic Mouth: oral mucosae normal Cardio Rate: regular rate Rhythm: regular rhythm GI Inspection: normal to inspection Palpation: soft Auscultation: normal bowel sounds Skin General skin exam: no rashes or lesions noted Neuro General: patient alert, patient awake and patient oriented x3 Results Labs Result diagrams: 03/28/22 12:18 03/28/22 12:18 Labs: Laboratory Results - last 24 hr 03/28/22 03/28/22 03/28/22 12:18 12:18 13:04 WBC 10.21 RBC 4.64 Hgb 14.5 Hct 43.2 MCV 93 MCH 31.3 MCHC 33.6 RDW 12.5 Plt Count 148 MPV 10.3 Immature Gran % 0.6 Neutrophils % 90.6 Lymphocytes % 2.5 Monocytes % 6.0 Eosinophils % 0.1 Basophils % 0.2 Nucleated RBC % 0.0 Absolute Neutrophils 9.25 H Absolute Lymphocytes 0.26 L Absolute Monocytes 0.61 Absolute Eosinophils 0.01 Absolute Basophils 0.02 Sodium 135 L Potassium 3.6 Chloride 101 Carbon Dioxide 27.2 Anion Gap 6.8 BUN 8 Creatinine 1.0 Estimated GFR/1.73 m2 >= 60.00 Glucose 175 H Calcium 8.9 Total Bilirubin 0.4 AST 45 H ALT 74 H Alkaline Phosphatase 83 Troponin I < 50 NT-Pro-B Natriuret Pep 203 Total Protein 6.7 Albumin 2.6 L COVID-19 Source Nasal/Nares Last Vital Signs Temp 37.8 C H 03/28/22 12:06 Pulse 117 H 03/28/22 12:06 Resp 20 03/28/22 12:06 BP 116/57 L 03/28/22 12:06 Pulse Ox 93 03/28/22 13:07
[2022-03-28] MEDS: VANCOMYCIN 1,000 MG in Normal Saline 250 ML 166.6666 MG IVPB (14:07)
[2022-03-28] MEDS: levoFLOXacin 750 MG/150 ML BAG 100 MG IVPB (14:07)
[2022-03-28 14:27] LABS: COVID-19 PCR Negative (Negative)
[2022-03-28] MEDS: guaiFENesin 200 MG/10 ML CUP PO (18:13)
[2022-03-28] MEDS: clonazePAM 1 MG TAB PO (20:25)
[2022-03-28] MEDS: Gabapentin 400 MG CAP PO (20:26)
[2022-03-28] MEDS: Pravastatin 20 MG TAB PO (20:27)
[2022-03-28] MEDS: Benztropine 1 MG TAB 0.5 MG PO (22:23)
[2022-03-28] MEDS: QUEtiapine 100 MG TAB 300 MG PO (22:40)
[2022-03-28] MEDS: Amitriptyline 25 MG TAB PO (22:46)
[2022-03-29] MEDS: Budesonide/Formoterol 160/4.5 6 GM 60 PUFF INH IH (07:48)
[2022-03-29] MEDS: Tiotropium Bromide-Respimat 10 PUFF INH 2 PUFF IH (08:00)
[2022-03-29 09:00] VITALS: BP 109/66; PULSE 88; RESP 21; TEMP 37.4; O2SAT 94
[2022-03-29] MEDS: Gabapentin 400 MG CAP PO (09:00)
[2022-03-29] MEDS: clonazePAM 1 MG TAB PO ×2 (09:01→21:57)
[2022-03-29] MEDS: Acetaminophen 325 MG TAB PO (09:01)
[2022-03-29] MEDS: Pantoprazole 40 MG TABCR PO (09:01)
[2022-03-29] MEDS: levoFLOXacin 500 MG, levoFLOXacin 250 MG 750 MG PO (09:01)
[2022-03-29] MEDS: Montelukast 10 MG TAB PO (09:02)
[2022-03-29] MEDS: Tamsulosin 0.4 MG CAPCR PO (09:02)
[2022-03-29] MEDS: predniSONE 20 MG TAB 40 MG PO (09:02)
[2022-03-29] MEDS: Nicotine 21 MG/24 HR PATCH TD (09:04)
[2022-03-29] MEDS: buPROPion-XL 150 MG TABCR 300 MG PO (09:04)
--- NOTE | 2022-03-29 09:56 | W.PM.PROGNOT ---
Date of Service Date of service: 03/29/22 Time of Service: 08:56 Assessment and Plan Assessment and plan (1) Pneumonia: Status: Acute Assessment and plan: started on levaquin and vanco in the ED d/t recent hospitalization will continue levaquin day 2 continue inhalers cultures pending (2) COPD exacerbation: Status: Acute Assessment and plan: requiring oxygen, wean as able. received IV steroids in ED, continue with burst oral continue respiratory inhalers (3) Cigarette smoker: Status: Acute Assessment and plan: continue nicotine replacement while hospitalized. (4) Noncompliance with medication regimen: Status: Acute Assessment and plan: receives his meds in bubble packs has been residing at the care bed followed by KATHARINA (5) BPH (benign prostatic hyperplasia): Status: Chronic Assessment and plan: continue tamsulosin, voiding well. (6) Depression: Status: Chronic Assessment and plan: continue home medication Qualifiers: Active/Remission status: currently active Depression Type: major depressive disorder Major depression episode severity: severe Major depression recurrence: recurrent Psychotic features: with psychotic features Qualified Code(s): F33.3 - Major depressive disorder, recurrent, severe with psychotic symptoms (7) Auditory hallucination: Status: Chronic Assessment and plan: stable on seroquel (8) DVT prophylaxis: Status: Deleted Assessment and plan: enoxaparin daily (9) Discharge planning issues: Status: Deleted Assessment and plan: will discharge when medically stable (has been living at the care bed and anticipate a return there) discussed with Dr Jara Subjective Subjective Patient reports: no new complaints, feels better, tolerating liquids well, tolerating a regular diet, shortness of breath (with activity) and afebrile Exam Const General: cooperative, comfortable and no acute distress Nutritional Appearance: overweight Orientation: alert, awake and oriented x3 HENMT Head: normal to inspection, normocephalic and atraumatic Mouth: oral mucosae normal Cardio Rate: regular rate Rhythm: regular rhythm GI Inspection: normal to inspection Palpation: soft Auscultation: normal bowel sounds Skin General skin exam: no rashes or lesions noted Neuro General: patient alert, patient awake and patient oriented x3 Objective Last Vital Signs Temp 37.6 C H 03/28/22 18:41 Pulse 87 03/28/22 18:41 Resp 20 03/28/22 18:41 BP 116/70 03/28/22 18:41 Pulse Ox 94 03/28/22 18:41 Laboratory Results - last 24 hr 03/28/22 03/28/22 03/28/22 12:18 12:18 13:04 WBC 10.21 RBC 4.64 Hgb 14.5 Hct 43.2 MCV 93 MCH 31.3 MCHC 33.6 RDW 12.5 Plt Count 148 MPV 10.3 Immature Gran % 0.6 Neutrophils % 90.6 Lymphocytes % 2.5 Monocytes % 6.0 Eosinophils % 0.1 Basophils % 0.2 Nucleated RBC % 0.0 Absolute Neutrophils 9.25 H Absolute Lymphocytes 0.26 L Absolute Monocytes 0.61 Absolute Eosinophils 0.01 Absolute Basophils 0.02 Sodium 135 L Potassium 3.6 Chloride 101 Carbon Dioxide 27.2 Anion Gap 6.8 BUN 8 Creatinine 1.0 Estimated GFR/1.73 m2 >= 60.00 Glucose 175 H Calcium 8.9 Total Bilirubin 0.4 AST 45 H ALT 74 H Alkaline Phosphatase 83 Troponin I < 50 NT-Pro-B Natriuret Pep 203 Total Protein 6.7 Albumin 2.6 L COVID-19 Source Nasal/Nares SARS-CoV-2 (PCR) Negative 03/28/22 15:15 WBC RBC Hgb Hct MCV MCH MCHC RDW Plt Count MPV Immature Gran % Neutrophils % Lymphocytes % Monocytes % Eosinophils % Basophils % Nucleated RBC % Absolute Neutrophils Absolute Lymphocytes Absolute Monocytes Absolute Eosinophils Absolute Basophils Sodium Potassium Chloride Carbon Dioxide Anion Gap BUN Creatinine Estimated GFR/1.73 m2 Glucose Calcium Total Bilirubin AST ALT Alkaline Phosphatase Troponin I Cancelled NT-Pro-B Natriuret Pep Total Protein Albumin COVID-19 Source SARS-CoV-2 (PCR) Reviewed Pertinent PMH: Yes
[2022-03-29 12:54] VITALS: RESP 4; RESP 8
[2022-03-29] MEDS: Albuterol 2.5 MG/3 ML INH SOLN VIAL UPD (12:54)
--- NOTE | 2022-03-29 13:47 | PDOC.CMIN ---
- If Service Date Differs Date of service: 03/29/22 Time of Service: 13:48 Care Management Initial Assess REASON FOR HOSPITALIZATION:: Pneumonia PAST MEDICAL HISTORY/PAST SURGICAL HISTORY:: All Active Problems (Updated 03/28/22 @ 13:31 by Pham Ngo NP). Pneumonia (Acute). COPD exacerbation (Acute). COPD (chronic obstructive pulmonary disease) (Chronic). Altered mental status (Acute). Ambulatory dysfunction (Acute). Adult failure to thrive (Acute). Bullae (Acute). Cigarette smoker (Acute). Cognitive impairment (Chronic). Ambulatory dysfunction (Chronic). Current smoker (Acute). Lung bullae (Acute). Acute exacerbation of chronic obstructive pulmonary disease (Acute). Acute on chronic systolic CHF (congestive heart failure) (Acute). Musculoskeletal chest pain (Chronic). Lethargy (Acute). BPH (benign prostatic hyperplasia) (Chronic). Lung disease (Acute). Arthritis (Acute). COPD exacerbation (Acute). Noncompliance with medication regimen (Acute). Depression (Chronic). Generalized weakness (Acute). UTI (urinary tract infection) (Acute). Polysubstance abuse (Chronic). Confusion (Acute). Auditory hallucination (Chronic). Orthostatic hypotension (Acute). PTSD (post-traumatic stress disorder) (Chronic). Discharge planning issues (Acute). Ambulatory dysfunction (Acute). Dyspnea (Acute). COPD (chronic obstructive pulmonary disease) (Chronic). DVT prophylaxis (Acute). Left rib fracture (Acute). Rib fracture (Acute). Syncope (Chronic). Severe chronic obstructive pulmonary disease (Chronic). Biventricular implantable cardioverter-defibrillator (ICD) in situ (Chronic). Mode:DDD, Low rate 60bpm, Atrial lead: medtronic 5076, SN: [id number] 09/27/14; RV lead Medtronic 6935M SN: [id number] 09/27/14; LV lead Medtronic 4396, SN; [id number] 09/27/14 (updated 03/11/20). Systolic and diastolic CHF, chronic (Chronic). LBBB (left bundle branch block) (Chronic). Nonischemic dilated cardiomyopathy (Chronic). Medical History. Acquired deformity of left hand. Agoraphobia. Anxiety. Anxiety with depression. Cardiomyopathy. Chest pain. CHF (congestive heart failure). Chronic pain syndrome. Constipation. Cyst. Diarrhea. Dizziness. DVT prophylaxis. Erectile dysfunction. Fatigue. Hallucination. Hand paresthesia. Heart disease. History of suicidal ideation. History of tobacco abuse. Hyperlipidemia. Impacted ear wax. Metacarpophalangeal joint pain. Musculoskeletal chest pain. Pacemaker. Pain in right hip. Panic anxiety syndrome. Skin lesion. Tobacco use. Surgical History . Status post biventricular pacemaker PREVIOUS FUNCTIONAL STATUS/SOCIAL/FAMILY SUPPORTS:: William has been staying at the care bed in [facility]. 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 William drives and is independent with his ADLs. He owns a home in [place] and enjoys outdoor activities such as fishing and hunting. He is oxygen dependent at home. CURRENT FUNCTIONAL STATUS:: William was sitting up on the edge of his bed in a darkened room when CM met with him. He was receiving oxygen via nasal cannula and still appeared to be somewhat short of breath. When asked about it he admitted that he was. He was also coughing at the time. William was uncharacteristically talkative with CM today. He talked about staying at the care bed and how much he likes it there. He also discussed his home oxygen apparatus but it was not clear to CM exactly what he was referencing. CM informed William that MIRANDA Joseyn would be back tomorrow and William smiled broadly when he remembered who she is, as they have had an excellent working relationship in the past. ADVANCE DIRECTIVES:: none on file Has patient been provided with info about the portal/API?: Yes Did the patient sign up for the portal?: No CODE STATUS:: Full Code INSURANCE COVERAGE / FINANCIAL ISSUES:: Medicare CURRENT HOME/COMMUNITY SERVICES/EQUIPMENT:: TRAILER RENTAL CLERK clientJoy is his counseling case manager through [facility]. PRIMARY CARE PHYSICIAN:: Lorrie Crespo POTENTIAL DISCHARGE NEEDS:: Follow up appointments with PCP and pulmonology. PATIENT/FAMILY EDUCATION NEEDS:: Review of discharge instructions including medications and follow up plan of care; discuss Ask Me Three and self management. TRANSPORTATION:: Via RCT vs. private vehicle with friend. PLAN:: William will likely return to the care bed with no new services when medically cleared by provider. He will follow up with his PCP, [facility], and discharge plan of care as instructed. He will be driven home via RCT vs. private vehicle with a friend. CM will continue to follow.
[2022-03-29 15:20] VITALS: BP 123/66; PULSE 90; RESP 21; TEMP 37.6; O2SAT 93
[2022-03-29] MEDS: Acetaminophen 325 MG TAB 650 MG PO (21:57)
[2022-03-29] MEDS: Pravastatin 20 MG TAB PO (21:57)
[2022-03-29] MEDS: guaiFENesin 200 MG/10 ML CUP PO (21:57)
[2022-03-29] MEDS: Budesonide/Formoterol 80/4.5 6.9 GM 60 PUFF INH IH (21:58)
[2022-03-29] MEDS: Albuterol/Ipratropium 3 ML UPD VIAL UPD (22:03)
[2022-03-29] MEDS: QUEtiapine 300 MG TAB PO (22:46)
[2022-03-29 23:33] VITALS: BP 120/83; PULSE 63; RESP 20; TEMP 37.3; O2SAT 96
[2022-03-30] VITALS (7 sets, daily range): BP systolic 110–118; BP diastolic 70–73; PULSE 77–97; RESP 2–22; TEMP 36.7–36.9; O2SAT 93–97
[2022-03-30 06:15] LABS: Abs Immature Grans 0.05 10^3/uL (0.0-0.06); Absolute Basophil Count 0.01 10^3/uL (0.0-0.2); Absolute Eosinophil Count 0.01 10^3/uL (0.0-0.7); Absolute Lymphocyte Count 0.43 10^3/uL (1.2-3.4); Absolute Neutrophil Count 7.24 10^3/uL (1.2-6.7); Basophils % 0.1; Eosinophils % 0.1; HCT 40.3 % (40.0-50.0); HGB 13.7 g/dL (13.5-17.5); Immature Grans % 0.6; Lymphocytes % 5.1; MCV 94 fL (80-95); MPV 10.8 fL (8.0-11.0); Monocytes % 8.3; Neutrophils % 85.8; Platelet Count 174 10^3/uL (130-400); RBC 4.28 10^6/uL (4.36-5.78); RDW 12.6 % (11.8-14.1); RDW-SD 43.7 fL; WBC 8.44 10^3/uL (4.4-10.8)
[2022-03-30 06:28] LABS: BUN 14 mg/dL (7-18); CREATININE 0.9 mg/dL (0.70-1.30); Calcium 9.1 mg/dL (8.5-10.1); Chloride 105 mmol/L (98-107); Glucose 130 mg/dL (74-106); Potassium 4.1 mmol/L (3.5-5.1); Sodium 143 mmol/L (136-145)
[2022-03-30] MEDS: Albuterol/Ipratropium 3 ML UPD VIAL UPD ×2 (07:09→11:28)
[2022-03-30] MEDS: Normal Saline Flush 10 ML SYR IVP (08:14)
[2022-03-30] MEDS: Nicotine 21 MG/24 HR PATCH TD (08:15)
[2022-03-30] MEDS: Docusate Sodium 100 MG CAP PO ×2 (08:16→20:16)
[2022-03-30] MEDS: buPROPion-XL 150 MG TABCR 300 MG PO (08:16)
[2022-03-30] MEDS: clonazePAM 1 MG TAB PO ×2 (08:17→20:16)
[2022-03-30] MEDS: Montelukast 10 MG TAB PO (08:17)
[2022-03-30] MEDS: Tamsulosin 0.4 MG CAPCR PO (08:17)
[2022-03-30] MEDS: Pantoprazole 40 MG TABCR PO (08:17)
[2022-03-30] MEDS: levoFLOXacin 500 MG, levoFLOXacin 250 MG 750 MG PO (08:18)
[2022-03-30] MEDS: Acetaminophen 325 MG TAB PO (08:18)
[2022-03-30] MEDS: Budesonide/Formoterol 80/4.5 6.9 GM 60 PUFF INH IH ×2 (08:29→20:16)
[2022-03-30] MEDS: predniSONE 20 MG TAB 40 MG PO (08:30)
[2022-03-30] MEDS: Tiotropium Bromide-Respimat 10 PUFF INH 2 PUFF IH (08:30)
[2022-03-30] MEDS: Acetaminophen 325 MG TAB 650 MG PO ×2 (11:18→22:47)
--- NOTE | 2022-03-30 13:28 | W.PM.PROGNOT ---
Date of Service Date of service: 03/30/22 Time of Service: 12:29 Assessment and Plan Assessment and plan (1) Pneumonia: Status: Acute Assessment and plan: started on levaquin and vanco in the ED d/t recent hospitalization will continue levaquin day 01/29 continue inhalers cultures pending (2) COPD exacerbation: Status: Acute Assessment and plan: requiring oxygen, wean as able. received IV steroids in ED, continue with burst oral continue respiratory inhalers (3) Cigarette smoker: Status: Acute Assessment and plan: continue nicotine replacement while hospitalized. (4) Noncompliance with medication regimen: Status: Acute Assessment and plan: receives his meds in bubble packs has been residing at the care bed followed by KATHARINA (5) BPH (benign prostatic hyperplasia): Status: Chronic Assessment and plan: continue tamsulosin, voiding well. (6) Depression: Status: Chronic Assessment and plan: continue home medication Qualifiers: Active/Remission status: currently active Depression Type: major depressive disorder Major depression episode severity: severe Major depression recurrence: recurrent Psychotic features: with psychotic features Qualified Code(s): F33.3 - Major depressive disorder, recurrent, severe with psychotic symptoms (7) Auditory hallucination: Status: Chronic Assessment and plan: stable on seroquel (8) DVT prophylaxis: Status: Deleted Assessment and plan: enoxaparin daily (9) Discharge planning issues: Status: Deleted Assessment and plan: will discharge when medically stable (has been living at the care bed and anticipate a return there) discussed with Dr Jara Subjective Subjective Patient reports: tolerating liquids well, tolerating a regular diet, shortness of breath (not improving) and afebrile Exam Const General: cooperative, comfortable and no acute distress Nutritional Appearance: overweight Orientation: alert, awake and oriented x3 HENMT Head: normal to inspection, normocephalic and atraumatic Mouth: oral mucosae normal Resp Effort & Inspection: normal respiratory effort (shortness of breath on exertion) Auscultation: diminished lung sounds bilaterally, no rales and no rhonchi Cardio Rate: regular rate Rhythm: regular rhythm GI Inspection: normal to inspection Palpation: soft Auscultation: normal bowel sounds Skin General skin exam: no rashes or lesions noted Neuro General: patient alert, patient awake and patient oriented x3 Extrem General: normal to inspection, full ROM and no pedal edema Objective Last Vital Signs Temp 36.9 C 03/30/22 09:42 Pulse 97 H 03/30/22 11:28 Resp 22 03/30/22 09:42 BP 118/73 03/30/22 09:42 Pulse Ox 95 03/30/22 11:28 Laboratory Results - last 24 hr 03/30/22 03/30/22 05:40 05:40 WBC 8.44 RBC 4.28 L Hgb 13.7 Hct 40.3 MCV 94 MCH 32.0 MCHC 34.0 RDW 12.6 Plt Count 174 MPV 10.8 Immature Gran % 0.6 Neutrophils % 85.8 Lymphocytes % 5.1 Monocytes % 8.3 Eosinophils % 0.1 Basophils % 0.1 Nucleated RBC % 0.0 Absolute Neutrophils 7.24 H Absolute Lymphocytes 0.43 L Absolute Monocytes 0.70 Absolute Eosinophils 0.01 Absolute Basophils 0.01 Sodium 143 Potassium 4.1 Chloride 105 Carbon Dioxide 31.0 Anion Gap 7.0 BUN 14 Creatinine 0.9 Estimated GFR/1.73 m2 >= 60.00 Glucose 130 H Calcium 9.1
--- NOTE | 2022-03-30 13:46 | PUCON_ITS ---
Documented by User: Lilia Perdomo 03/30/22 16:29 General Date Of Service Date of service: 03/30/22 Time of Service: 13:23 Requesting physician: Pham Ngo Reason for Consult: 56 y.o male with history of COPD and presenting with bilateral lower lobes pneumonia re: Optimization treatment and inpatient admitting criteria Recommendations: Patient is responding well to Levaquin treatment No sputum was collected Will continue present management with Levaquin 750 mg PO for a total of 5 days prednisone 40 mg PO for a total of 5 days Incentive spirometer Vibrapep For COPD exacerbation with right LL atelectasis Recommends ongoing home regimen for COPD with Oxygen 3l/min Symbicort Budesonide/ Formoterol 2 puff BID Spiriva/ tiotropium bromide 1 puff daily Albuterol 2.5 ml inh .Q 4 hours PRN Albuterol/ Ipratropium neb. 3 ml QID PRN Assessment and Plan Assessment and plan (1) COPD exacerbation: Status: Acute Assessment and plan: Patient is responding well to Levaquin treatment No sputum was collected Will continue present management with Levaquin 750 mg PO for a total of 5 days prednisone 40 mg PO for a total of 5 days Incentive spirometer Vibrapep For COPD exacerbation with right LL atelectasis Recommends ongoing home regimen for COPD with Oxygen 3l/min Symbicort Budesonide/ Formoterol 2 puff BID Spiriva/ tiotropium bromide 1 puff daily Albuterol 2.5 ml inh .Q 4 hours PRN Albuterol/ Ipratropium neb. 3 ml QID PRN (2) COPD (chronic obstructive pulmonary disease): Status: Chronic Assessment and plan: as above History of Present Illness History of Present Illness Chief Complaint: Increased shorntess of breath Narrative: 2 days of increasing shortness of breath.? work up in ED shows hypoxia with sats in the 80's, and new infiltrates on xray concerning for pneumonia.? given updrafts, IV steroids, and broad spectrum antibiotics in the ED.? Symptoms improved and hospitalist requested pulmonology consult during admission for optimal management as outpatient upon discharge. Consults Consult date: 03/30/22 Review of Systems Narrative: C/o of chronic generalized body aches. All systems reviewed & are unremarkable except as noted in HPI and below Constitutional Constitutional: Reports weakness Eyes Eyes: Reports photophobia Cardiovascular Cardiovascular: Denies chest pain at rest, Denies chest pain with activity and Reports dyspnea on exertion Respiratory Respiratory: Reports dyspnea on exertion Gastrointestinal Gastrointestinal: Reports system reviewed and no additional complaints, except as documented and Denies change in bowel habits Musculoskeletal Comments: chronic body aches Neurologic Neurologic: Reports weakness PFSH All Active Problems (Updated 03/28/22 @ 13:31 by Pham Ngo NP) Pneumonia (Acute) COPD exacerbation (Acute) COPD (chronic obstructive pulmonary disease) (Chronic) Altered mental status (Acute) Ambulatory dysfunction (Acute) Adult failure to thrive (Acute) Bullae (Acute) Cigarette smoker (Acute) Cognitive impairment (Chronic) Ambulatory dysfunction (Chronic) Current smoker (Acute) Lung bullae (Acute) Acute exacerbation of chronic obstructive pulmonary disease (Acute) Acute on chronic systolic CHF (congestive heart failure) (Acute) Musculoskeletal chest pain (Chronic) Lethargy (Acute) BPH (benign prostatic hyperplasia) (Chronic) Lung disease (Acute) Arthritis (Acute) COPD exacerbation (Acute) Noncompliance with medication regimen (Acute) Depression (Chronic) Generalized weakness (Acute) UTI (urinary tract infection) (Acute) Polysubstance abuse (Chronic) Confusion (Acute) Auditory hallucination (Chronic) Orthostatic hypotension (Acute) PTSD (post-traumatic stress disorder) (Chronic) Discharge planning issues (Acute) Ambulatory dysfunction (Acute) Dyspnea (Acute) COPD (chronic obstructive pulmonary disease) (Chronic) DVT prophylaxis (Acute) Left rib fracture (Acute) Rib fracture (Acute) Syncope (Chronic) Severe chronic obstructive pulmonary disease (Chronic) Biventricular implantable cardioverter-defibrillator (ICD) in situ (Chronic) Mode:DDD, Low rate 60bpm, Atrial lead: medtronic 5076, SN: [id number] 09/27/14; RV lead Medtronic 6935M SN: [id number] 09/27/14; LV lead Medtronic 4396, SN; TRACIE [id number] 09/27/14 (updated 03/11/20) Systolic and diastolic CHF, chronic (Chronic) LBBB (left bundle branch block) (Chronic) Nonischemic dilated cardiomyopathy (Chronic) Medical History Acquired deformity of left hand Agoraphobia Anxiety Anxiety with depression Cardiomyopathy Chest pain CHF (congestive heart failure) Chronic pain syndrome Constipation Cyst Diarrhea Dizziness DVT prophylaxis Erectile dysfunction Fatigue Hallucination Hand paresthesia Heart disease History of suicidal ideation History of tobacco abuse Hyperlipidemia Impacted ear wax Metacarpophalangeal joint pain Musculoskeletal chest pain Pacemaker Pain in right hip Panic anxiety syndrome Skin lesion Tobacco use Surgical History Status post biventricular pacemaker Family History Mother , 2008 COPD (chronic obstructive pulmonary disease) Social History Smoking/Tobacco Use Status: Former Tobacco Use Quit Date: 03/08/22 Pack-years: 120 Smoking risk assessment performed?: Yes Alcohol Intake: former Drug use: Never Substance use type: does not use Household members: none Pets and animals: No What type of physical activity do you participate in: none Seatbelt use: always Do you feel safe at home: Yes Do you feel safe in your relationship?: Yes Additional Social history: lives alone Visit Medication and Allergies Active Medications Generic Name Dose Route Start Last Admin Trade Name Freq PRN Reason Stop Dose Admin Acetaminophen 650 mg 03/28/22 13:59 03/30/22 11:18 Acetaminophen 325 Mg Tab PO 650 mg Q4H PRN PRN Administration Acetaminophen 325 mg 03/29/22 08:30 03/30/22 08:18 Acetaminophen 325 Mg Tab PO 325 mg DAILY OJ Administration Albuterol Sulfate 2 puff 03/28/22 17:54 Albuterol Hfa 8 Gm 60 Puff Inh IH Q4H PRN PRN Albuterol Sulfate 2.5 mg 03/28/22 20:27 03/29/22 12:54 Albuterol 2.5 Mg/3 Ml Inh Soln Vial UPD 2.5 mg Q4H PRN PRN Administration Albuterol/Ipratropium 3 ml 03/29/22 09:47 03/30/22 11:28 Albuterol/Ipratropium 3 Ml Upd Vial UPD 3 ml QID PRN PRN Administration Benzocaine/Menthol 1 each 03/28/22 20:35 03/28/22 21:16 Benzocaine/Menthol Lozg 18/Box SUC 1 [place] Q6H PRN PRN Administration Budesonide/Formoterol Fumarate 2 puff 03/29/22 20:00 03/30/22 08:29 Budesonide/Formoterol 80/4.5 6.9 Gm 60 Puff Inh IH 2 puffs BID OJ Administration Bupropion HCl 300 mg 03/29/22 08:30 03/30/22 08:16 Bupropion-Xl 150 Mg Tabcr PO 300 mg QAM OJ Administration Calcium Carbonate 500 mg 03/28/22 17:50 Calcium Carbonate *Tums* 500 Mg Chew PO QID PRN PRN Clonazepam 1 mg 03/28/22 20:00 03/30/22 08:17 Clonazepam 1 Mg Tab PO 1 mg BID OJ Administration Device 1 each 03/28/22 18:00 Inhaler, Assist Device [facility] DIRECTED [facility] Dimethicone/Zinc Oxide 0 gm 03/28/22 13:23 [place] Protect Cream 142 Gm Tube TP PRN PRN Diphenhydramine HCl 25 mg 03/28/22 17:51 Diphenhydramine 25 Mg Cap PO Q6H PRN PRN Docusate Sodium 100 mg 03/28/22 20:00 03/30/22 08:16 Docusate Sodium 100 Mg Cap PO 100 mg BID OJ Administration Guaifenesin 200 mg 03/28/22 17:43 03/29/22 21:57 Guaifenesin 200 Mg/10 Ml Cup PO 200 mg Q4H PRN PRN Administration Levofloxacin 500 mg/ 750 mg 03/29/22 08:30 03/30/22 08:18 Levofloxacin 250 mg PO 04/03/22 08:31 750 mg QAM [facility] Administration Magnesium Hydroxide 30 ml 03/28/22 17:48 Milk Of Magnesia 30 Ml Cup PO DAILY PRN PRN Montelukast Sodium 10 mg 03/29/22 08:30 03/30/22 08:17 Montelukast 10 Mg Tab PO 10 mg DAILY OJ Administration Nicotine 21 mg 03/29/22 08:30 03/30/22 08:15 Nicotine 21 Mg/24 Hr Patch TD 21 mg DAILY OJ Administration Pantoprazole Sodium 40 mg 03/29/22 07:30 03/30/22 08:17 Pantoprazole 40 Mg Tabcr PO 40 mg DAILY@0730 OJ Administration Polyethylene Glycol 17 gm 03/29/22 09:46 Polyethylene Glycol 3350 17 Gm Packet PO DAILY PRN PRN Pravastatin Sodium 20 mg 03/28/22 20:00 03/29/22 21:57 Pravastatin 20 Mg Tab PO 20 mg QPM OJ Administration Prednisone 40 mg 03/29/22 08:30 03/30/22 08:30 Prednisone 20 Mg Tab PO 40 mg DAILY OJ Administration Quetiapine Fumarate 300 mg 03/29/22 22:00 03/29/22 22:46 Quetiapine 300 Mg Tab PO 300 mg HS OJ Administration Sodium Chloride 0 ml 03/28/22 15:48 03/30/22 08:14 Normal Saline Flush 10 Ml Syr IVP 10 ml PRN PRN Administration Tamsulosin HCl 0.4 mg 03/29/22 08:30 03/30/22 08:17 Tamsulosin 0.4 Mg Capcr PO 0.4 mg DAILY OJ Administration Tiotropium Brush 2 puff 03/29/22 08:30 03/30/22 08:30 Tiotropium Brush-Respimat 10 Puff Inh IH 2 puffs DAILY OJ Administration Allergies No Known Allergies Allergy (Unverified 03/28/22 12:26) Exam Narrative Exam Narrative: Patient transferring from wheelchair to recliner post-DI exam without respiratory distress at the beginning of the interview Const General: cooperative, comfortable and no acute distress Orientation: alert, awake and oriented x3 HENMT Head: normal to inspection Mouth: oral mucosae normal Neck Neck: normal visual inspection Resp Effort & Inspection: normal respiratory effort (shortness of breath on exertion) Auscultation: diminished lung sounds bilaterally, no rales and no rhonchi Cardio Rate: regular rate Rhythm: regular rhythm Skin General skin exam: no rashes or lesions noted (Skin is pink, no cyanosis) Neuro General: patient alert, patient awake and patient oriented x3 Extrem General: normal to inspection, full ROM and no pedal edema Results Last Vital Signs Temp 98.4 F 03/30/22 09:42 Pulse 97 H 03/30/22 11:28 Resp 22 03/30/22 09:42 BP 118/73 03/30/22 09:42 Pulse Ox 95 03/30/22 11:28 Labs Result diagrams: 03/30/22 05:40 03/30/22 05:40 Labs: Laboratory Results - last 24 hr 03/30/22 03/30/22 05:40 05:40 WBC 8.44 RBC 4.28 L Hgb 13.7 Hct 40.3 MCV 94 MCH 32.0 MCHC 34.0 RDW 12.6 Plt Count 174 MPV 10.8 Immature Gran % 0.6 Neutrophils % 85.8 Lymphocytes % 5.1 Monocytes % 8.3 Eosinophils % 0.1 Basophils % 0.1 Nucleated RBC % 0.0 Absolute Neutrophils 7.24 H Absolute Lymphocytes 0.43 L Absolute Monocytes 0.70 Absolute Eosinophils 0.01 Absolute Basophils 0.01 Sodium 143 Potassium 4.1 Chloride 105 Carbon Dioxide 31.0 Anion Gap 7.0 BUN 14 Creatinine 0.9 Estimated GFR/1.73 m2 >= 60.00 Glucose 130 H Calcium 9.1 Imaging Chest x-ray: report reviewed Documented by User: Audra Yanez MD 03/30/22 16:45 Assessment and Plan Assessment and plan (1) COPD exacerbation: Status: Acute (2) COPD (chronic obstructive pulmonary disease): Status: Chronic Assessment and plan: as above This is a 56 yo man with likely severe COPD and who recently quit smoking (30 days ago per patient) who is admitted for a COPD exacerbation. He is being treated appropriately with prednisone 40mg daily, Levaquin and continuance of his home COPD regimen. Based on his history and CXR, I am not convinced that he has a pneumonia and would suggest a 5 day course of the Levaquin in line with COPD exacerbation indications. I discussed with him seeing me in follow up after discharge to which he said he would not want to do this even after my suggestion that it could prevent him from getting readmitted for his breathing. COPD Exacerbation - continue 40mg prednisone and Levaquin for a total of 5 days - continue home Symbicort 80 and Spiriva - continue prn albuterol HFA and nebs - continue to not smoke - has IS and VibraPEP at bedside - continue home O2 - if he changes him mind, I would be happy to see him as an outpatient This patient was seen with MEDICAL DETAIL REPRESENTATIVE student Lilia Perdomo. I agree with what she has documented. My text is seen in italics. History of Present Illness Narrative: 2 days of increasing shortness of breath.? work up in ED shows hypoxia with sats in the 80's, and new infiltrates on xray concerning for pneumonia.? given updrafts, IV steroids, and broad spectrum antibiotics in the ED.? Symptoms improved and hospitalist requested pulmonology consult during admission for optimal management as outpatient upon discharge. This is a 56 yo man with known COPD maintained on Symbicort, Spiriva, albuterol and nebulizers at hoime in addition to oxygen at 3LPM. He has approximately a 35 pack year history, however has quit 30 days ago. He is admitted for a COPD exacerbation although feels as though he is improving. He is also being treated for a PNA suspected based on CXR, however on my read, the CXR shoes some atelectasis but I am not convinced there truly is a pneumonia. He feels as tho ugh the treatment he has been receiving since being admitted is helping him. Of note - he does have a psychiatric history that does cloud the picture for his other medical issues. He has had PFT's in 2008 (none since then) that found moderate COPD with an FEV1 of 53%. He also has a noc ox from 2020 that finds a significant amount of time under 88% sats despite wearing a Trilogy (he did have a Trilogy for some time but due to non compliance this was taken). He is on prednisone 40mg daily and Levaquin. PFSH All Active Problems (Updated 03/28/22 @ 13:31 by Pham Ngo NP) Pneumonia (Acute) COPD exacerbation (Acute) COPD (chronic obstructive pulmonary disease) (Chronic) Altered mental status (Acute) Ambulatory dysfunction (Acute) Adult failure to thrive (Acute) Bullae (Acute) Cigarette smoker (Acute) Cognitive impairment (Chronic) Ambulatory dysfunction (Chronic) Current smoker (Acute) Lung bullae (Acute) Acute exacerbation of chronic obstructive pulmonary disease (Acute) Acute on chronic systolic CHF (congestive heart failure) (Acute) Musculoskeletal chest pain (Chronic) Lethargy (Acute) BPH (benign prostatic hyperplasia) (Chronic) Lung disease (Acute) Arthritis (Acute) COPD exacerbation (Acute) Noncompliance with medication regimen (Acute) Depression (Chronic) Generalized weakness (Acute) UTI (urinary tract infection) (Acute) Polysubstance abuse (Chronic) Confusion (Acute) Auditory hallucination (Chronic) Orthostatic hypotension (Acute) PTSD (post-traumatic stress disorder) (Chronic) Discharge planning issues (Acute) Ambulatory dysfunction (Acute) Dyspnea (Acute) COPD (chronic obstructive pulmonary disease) (Chronic) DVT prophylaxis (Acute) Left rib fracture (Acute) Rib fracture (Acute) Syncope (Chronic) Severe chronic obstructive pulmonary disease (Chronic) Biventricular implantable cardioverter-defibrillator (ICD) in situ (Chronic) Mode:DDD, Low rate 60bpm, Atrial lead: medtronic 5076, SN: [id number] 09/27/14; RV lead Medtronic 6935M SN: [id number] 09/27/14; LV lead Medtronic 4396, SN; TRACIE [id number] 09/27/14 (updated 03/11/20) Systolic and diastolic CHF, chronic (Chronic) LBBB (left bundle branch block) (Chronic) Nonischemic dilated cardiomyopathy (Chronic) Medical History Acquired deformity of left hand Agoraphobia Anxiety Anxiety with depression Cardiomyopathy Chest pain CHF (congestive heart failure) Chronic pain syndrome Constipation Cyst Diarrhea Dizziness DVT prophylaxis Erectile dysfunction Fatigue Hallucination Hand paresthesia Heart disease History of suicidal ideation History of tobacco abuse Hyperlipidemia Impacted ear wax Metacarpophalangeal joint pain Musculoskeletal chest pain Pacemaker Pain in right hip Panic anxiety syndrome Skin lesion Tobacco use Surgical History Status post biventricular pacemaker Family History Mother , 2008 COPD (chronic obstructive pulmonary disease) Social History Smoking/Tobacco Use Status: Former Tobacco Use Quit Date: 03/08/22 Pack-years: 120 Smoking risk assessment performed?: Yes Alcohol Intake: former Drug use: Never Substance use type: does not use Household members: none Pets and animals: No What type of physical activity do you participate in: none Seatbelt use: always Do you feel safe at home: Yes Do you feel safe in your relationship?: Yes Additional Social history: lives alone Results Labs Result diagrams: 03/30/22 05:40 03/30/22 05:40 Imaging Chest x-ray: image reviewed
--- NOTE | 2022-03-30 14:16 | DI.RAD_ITS ---
Exam(s) XR CHEST 2V PA LATERAL EXAM: XR CHEST 2V PA LATERAL CLINICAL HISTORY: ongoing shortness of breath TECHNIQUE: 2D digital imaging was performed. COMPARISON: CR,XR XR PORTABLE CHEST AP from 03/28/2022 FINDINGS: MEDIASTINUM: Normal. HEART: Normal. Pacemaker noted. PULMONARY VASCULATURE: Normal. LUNGS: Emphysematous changes with large blebs near the apices.. Clearing of previously noted lower l obe infiltrates. PLEURAL SPACE: No pleural effusion or pneumothorax. BONE:Unremarkable for age. IMPRESSION: Improvement in lower lobe infiltrates. DATA REPOSITORY: RADIATION DOSE DELIVERED:
--- NOTE | 2022-03-30 15:58 | PDOC.CMPRO ---
- If Service Date Differs Date of service: 03/30/22 Time of Service: 15:58 Care Management Progress Note S/O: William was sitting up in his chair when CM met with him. He stated that he is not feeling well, and does not feel ready for discharge today. CM stated that per provider, his labs are improving, therefore he may be nearing discharge readiness. William stated that he would prefer to return to the Care Bed, if that is an option. CM spoke to SARABJIT Martinez, regarding that Care Bed status today, who stated that they cannot hold his bed at the Care Bed, and that if it is filled before he is ready for discharge, he would not have that option at this time. CM discussed William going to short term rehab vs prison care, at the suggestion of SARABJIT Martinez, who stated that his needs are becoming too high for the Care Bed. 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 He stated that he worked hard all his life for his home, and he will return there. CM talked to his [employer] foster care case manager, and discussed having William fill out a prison [facility] application. She stated that he had one started previously, but it had timed out, as they did not feel that he would need the services. CM will assist with filling this out and submitting it during this admission, if William is willing to. Per provider, his labs are improving, but he is not feeling well, therefore Pulmonology was consulted to discuss alternative treatment for his COPD. Palliative Care was also consulted to further discuss his goals of care. CM will continue to follow. A: William is a 56 year old male admitted to [facility] on 03/28/22 with pneumonia. P: William will likely return to the care bed vs return home when medically cleared by provider. He may benefit from services upon discharge. He will follow up with his PCP, SARABJIT, and discharge plan of care as instructed. He will be driven home via RCT vs. private vehicle with a friend. CM will continue to follow.
[2022-03-30] MEDS: Albuterol 2.5 MG/3 ML INH SOLN VIAL UPD (16:52)
[2022-03-30] MEDS: Pravastatin 20 MG TAB PO (20:17)
[2022-03-30] MEDS: QUEtiapine 300 MG TAB PO (22:45)
[2022-03-31] VITALS (69 sets, daily range): BP systolic 80–130; BP diastolic 45–91; PULSE 75–139; RESP 4–32; TEMP 34–37.4; O2SAT 86–99
--- NOTE | 2022-03-31 | DI.RAD_ITS ---
Exam(s) XR PORTABLE CHEST AP EXAM: XR PORTABLE CHEST AP CLINICAL HISTORY: worsening shortness of breath TECHNIQUE: 2D digital imaging was performed. COMPARISON: CR XR CHEST 2V PA LATERAL from 03/30/2022 FINDINGS: Severe emphysematous changes are again noted. No infiltrate, effusion or pulmonary edema. Pacemaker . IMPRESSION: No acute findings. DATA REPOSITORY: RADIATION DOSE DELIVERED:
[2022-03-31] MEDS: Albuterol 2.5 MG/3 ML INH SOLN VIAL UPD ×2 (06:00→11:30)
[2022-03-31 06:19] LABS: Abs Immature Grans 0.04 10^3/uL (0.0-0.06); Absolute Basophil Count 0.01 10^3/uL (0.0-0.2); Absolute Lymphocyte Count 0.61 10^3/uL (1.2-3.4); Absolute Monocyte Count 0.79 10^3/uL (0.1-0.8); Absolute Neutrophil Count 5.92 10^3/uL (1.2-6.7); Basophils % 0.1; HCT 44.1 % (40.0-50.0); HGB 14.9 g/dL (13.5-17.5); Immature Grans % 0.5; Lymphocytes % 8.3; MCH 31.5 pg (27.0-33.0); MCHC 33.8 % (32.0-36.0); MCV 93 fL (80-95); MPV 10.6 fL (8.0-11.0); Monocytes % 10.7; Neutrophils % 80.4; Platelet Count 159 10^3/uL (130-400); RBC 4.73 10^6/uL (4.36-5.78); RDW 12.4 % (11.8-14.1); RDW-SD 43.2 fL; WBC 7.37 10^3/uL (4.4-10.8)
[2022-03-31 06:36] LABS: BUN 15 mg/dL (7-18); CREATININE 0.7 mg/dL (0.70-1.30); Calcium 9.1 mg/dL (8.5-10.1); Chloride 102 mmol/L (98-107); Glucose 101 mg/dL (74-106); Sodium 141 mmol/L (136-145)
[2022-03-31] MEDS: Budesonide/Formoterol 80/4.5 6.9 GM 60 PUFF INH IH (07:33)
[2022-03-31] MEDS: Tiotropium Bromide-Respimat 10 PUFF INH 2 PUFF IH (07:34)
[2022-03-31 07:56] LABS: Lithium < 0.2 mmol/l (0.6-1.2)
[2022-03-31] MEDS: predniSONE 20 MG TAB 40 MG PO (08:10)
[2022-03-31] MEDS: Pantoprazole 40 MG TABCR PO (08:10)
[2022-03-31] MEDS: levoFLOXacin 500 MG, levoFLOXacin 250 MG 750 MG PO (08:11)
[2022-03-31] MEDS: Acetaminophen 325 MG TAB PO (08:11)
[2022-03-31] MEDS: Tamsulosin 0.4 MG CAPCR PO (08:11)
[2022-03-31] MEDS: buPROPion-XL 150 MG TABCR 300 MG PO (08:11)
[2022-03-31] MEDS: clonazePAM 1 MG TAB PO ×2 (08:11→19:41)
[2022-03-31] MEDS: Montelukast 10 MG TAB PO (08:11)
[2022-03-31] MEDS: Docusate Sodium 100 MG CAP PO (08:11)
[2022-03-31] MEDS: Nicotine 21 MG/24 HR PATCH TD (08:12)
[2022-03-31] MEDS: MORPHine 2 MG/ML SYR 1 MG IVP ×2 (08:44→11:48)
[2022-03-31] MEDS: Albuterol/Ipratropium 3 ML UPD VIAL UPD ×3 (11:15→19:41)
--- NOTE | 2022-03-31 11:15 | RT.EKG_ITS ---
APPROVED REPORT Exam: Resting ECG Reason for Exam: worsening shortness of breath, CHF Patient Location: I HR:131 bpm ECG Measurements Heart Rate 131 AXIS MT 131 P 87 QRSd 155 QRS 75 QT 418 T 80 QTc 618 Conclusion Sinus tachycardia...rate> 99 IVCD, consider atypical LBBB...QRSd>120, notch/slur R I aVL V5-6
--- NOTE | 2022-03-31 11:34 | PDOC.CMPRO ---
- If Service Date Differs Date of service: 03/31/22 Time of Service: 11:35 Care Management Progress Note S/O: William was transferred to the ICU today in acute respiratory distress. CM updated his [employer] team in the community, as he will remain inpatient again overnight. Per RT, he may be intubated, if he cannot protect his airway. CM was unable to meet with William today due to his fragile condition. CM checked in with his RN and RT several times, who stated that he is not tolerating BiPAP, which may lead to intubation. He is currently full code and agreeable to being intubated, if necessary. CM called his [employer] VEGETABLE P[employer] showcase maker, to provide another update, and left a voicemail. CM will continue to follow and support William as needed. A: William is a 56 year old male admitted to [facility] on 03/28/22 with pneumonia. P: William will likely return to the care bed vs return home when medically cleared by provider. He may benefit from services upon discharge. He will follow up with his PCP, [facility], and discharge plan of care as instructed. He will be driven home via RCT vs. private vehicle with a friend. CM will continue to follow.
[2022-03-31 11:45] LABS: BE 7 mmol/L (-2-3); FIO2L 4 L; HCO3 34 mmol/L (22-26); Site Right Radial; pH 7.23 (7.35-7.45); pO2 46 mmHg (80-105); sO2 73 % (95-98); tCO2 31 mmol/L (23-27)
[2022-03-31 11:46] LABS: pCO2 82 mmHg (35-45)
[2022-03-31] MEDS: Furosemide 40 MG/4 ML VIAL IVP (11:48)
[2022-03-31] MEDS: Normal Saline Flush 10 ML SYR IVP ×2 (11:49→13:24)
[2022-03-31 12:09] LABS: Magnesium 2.1 mg/dL (1.8-2.4)
[2022-03-31 12:21] LABS: NT-proBNP 224 pg/mL (<300); Troponin I < 50 ng/L (<or=60)
[2022-03-31 12:44] LABS: D-Dimer 1133 ng/mlFEU (<500)
--- NOTE | 2022-03-31 13:09 | W.PM.PROGNOT ---
Date of Service Date of service: 03/31/22 Time of Service: 13:09 Assessment and Plan Assessment and plan (1) Acute on chronic respiratory failure with hypoxia and hypercapnia: Status: Acute Assessment and plan: Presumably due to COPD exacerbation as well as due to mild fluid overload. Transferred to the ICU. S/p lasix 40 mg IV x 1. Would ideally be on BiPAP, but the patient's anxiety is preventing him from being compliant. We are trialing ativan prn. The patient is full code. Will get VBG at 2 pm - if shows worsening respiratory acidosis, would benefit from potential intubation if still refusing BiPAP. (2) COPD exacerbation: Status: Acute Assessment and plan: As above - continue scheduled + prn nebs, prednisone, levofloxacin. BiPAp. (3) Acute on chronic systolic CHF (congestive heart failure): Status: Acute Assessment and plan: s/p 1 dose of furosemide. Monitor I/O's, daily weights. May require further diuresis. (4) Elevated d-dimer: Status: Acute Assessment and plan: CTA chest ordered, but the patient is not going to be able to tolerate the study right now. Start empiric therapeutic enoxaparin. (5) DVT prophylaxis: Status: Acute Assessment and plan: therapeutic lovenox (6) Discharge planning issues: Status: Acute Assessment and plan: Full code Transferred to the ICU. Total Critical Care Time [address] Yanez. Subjective Subjective Interval history since last seen: Patient was reporting worsening shortness of breath this morning. RT has come to evaluate the patient and recommended BiPAP. I came to examine the patient with Pham Ngo NP. The patient was hypoxic to the 70s while on 2-3L of O2. He was requiring 15L of O2 by high flow NC. His ABG revealed pH of 7.23, pCO2 of 82, pO2 46%, biCarb of 34, O2 sat of 73% on 4L. He was wheezing and had evidence of JVD. A dose of lasix 40 mg IV x 1 was ordered. CXR w/o acute findings. He was placed on BiPAP and transferred to the ICU. Exam Narrative Exam Narrative: General: Anxious middle-aged male with increased work of breathing and JVD HEENT: EOMI, MMM, JVD Heart: RRR, tachycardic (130s) Lungs: Expiratory wheezing B Abdomen: nondistended Extremities: trace edema BLEs Objective Last Vital Signs Temp 37.4 C 03/31/22 12:43 Pulse 130 H 03/31/22 12:48 Resp 31 H 03/31/22 12:48 BP 122/75 03/31/22 12:43 Pulse Ox 96 03/31/22 12:48 Laboratory Results - last 24 hr 03/31/22 03/31/22 03/31/22 05:30 05:30 05:30 WBC 7.37 RBC 4.73 Hgb 14.9 Hct 44.1 MCV 93 MCH 31.5 MCHC 33.8 RDW 12.4 Plt Count 159 MPV 10.6 Immature Gran % 0.5 Neutrophils % 80.4 Lymphocytes % 8.3 Monocytes % 10.7 Eosinophils % 0.0 Basophils % 0.1 Nucleated RBC % 0.0 Absolute Neutrophils 5.92 Absolute Lymphocytes 0.61 L Absolute Monocytes 0.79 Absolute Eosinophils 0.00 Absolute Basophils 0.01 D-Dimer ABG Sample Site ABG pH ABG pCO2 ABG pO2 ABG HCO3 ABG Total CO2 ABG O2 Saturation ABG Base Excess VBG pH VBG pCO2 VBG pO2 VBG HCO3 VBG Total CO2 VBG O2 Saturation VBG Base Excess Oxygen Liter Flow FiO2 Sodium 141 Potassium 4.0 Chloride 102 Carbon Dioxide 34.0 H Anion Gap 5.0 BUN 15 Creatinine 0.7 Estimated GFR/1.73 m2 >= 60.00 Glucose 101 Calcium 9.1 Magnesium Troponin I NT-Pro-B Natriuret Pep [place] < 0.2 L 03/31/22 03/31/22 03/31/22 11:35 11:50 11:50 WBC RBC Hgb Hct MCV MCH MCHC RDW Plt Count MPV Immature Gran % Neutrophils % Lymphocytes % Monocytes % Eosinophils % Basophils % Nucleated RBC % Absolute Neutrophils Absolute Lymphocytes Absolute Monocytes Absolute Eosinophils Absolute Basophils D-Dimer ABG Sample Site Right Radial ABG pH 7.23 L ABG pCO2 82 H* ABG pO2 46 L ABG HCO3 34 H ABG Total CO2 31 H ABG O2 Saturation 73 L ABG Base Excess 7 H VBG pH Cancelled VBG pCO2 Cancelled VBG pO2 Cancelled VBG HCO3 Cancelled VBG Total CO2 Cancelled VBG O2 Saturation Cancelled VBG Base Excess Cancelled Oxygen Liter Flow 4 FiO2 Cancelled Sodium Potassium Chloride Carbon Dioxide Anion Gap BUN Creatinine Estimated GFR/1.73 m2 Glucose Calcium Magnesium Troponin I < 50 NT-Pro-B Natriuret Pep 224 Cancelled [place] 03/31/22 03/31/22 11:50 12:10 WBC RBC Hgb Hct MCV MCH MCHC RDW Plt Count MPV Immature Gran % Neutrophils % Lymphocytes % Monocytes % Eosinophils % Basophils % Nucleated RBC % Absolute Neutrophils Absolute Lymphocytes Absolute Monocytes Absolute Eosinophils Absolute Basophils D-Dimer 1133 H ABG Sample Site ABG pH ABG pCO2 ABG pO2 ABG HCO3 ABG Total CO2 ABG O2 Saturation ABG Base Excess VBG pH VBG pCO2 VBG pO2 VBG HCO3 VBG Total CO2 VBG O2 Saturation VBG Base Excess Oxygen Liter Flow FiO2 Sodium Potassium Chloride Carbon Dioxide Anion Gap BUN Creatinine Estimated GFR/1.73 m2 Glucose Calcium Magnesium 2.1 Troponin I NT-Pro-B Natriuret Pep [place] Objective Narrative Objective Narrative: CXR: No acute? findings. Multi-Disciplinary Checklist Lines/Tubes CENTRAL LINE: no ARTERIAL LINE: no FREED: yes, Freed Day#: 0 ENDOTRACHEAL TUBE: no ICU Maintenance GLUCOSE 140-180mg/dL: yes NUTRITION AT GOAL: no, Reason/Intervention: NPO in anticipation of possible intubation PRESSURE ULCER: no RESTRAINTS: no ANTIBIOTICS(if yes, consider Stewardship): Yes Social Issues FAMILY UPDATED: no, Reason/Intervention: No family to update; patient is A&Ox3 PT/OT: no, GOALS/DISPOSITION/AUDIO VISUAL COORDINATOR: yes CODE STATUS: Full Prophylaxis DVT PROPHYLAXIS: yes GI PROPHYLAXIS: yes, Indication: on prednisone
[2022-03-31] MEDS: LORazepam 2 MG/ML VIAL 0.5 MG IVP (13:24)
[2022-03-31 13:38] LABS: BE (Venous) 9 mmol/L (-2-3); HCO3 (Venous) 34 mmol/L (23-28); O2 Sat (Venous) 93 %; TCO2 (Venous) 30 mmol/L (24-29); pH (Venous) 7.35 (7.31-7.41); pO2 (Venous) 69 mmHg
[2022-03-31 13:40] LABS: pCO2 (Venous) 62 mmHg (41-51)
[2022-03-31] MEDS: dexmedeTOMidine IN 0.9 % NACL 400 MCG/100 ML BTL IVPB (14:05)
[2022-03-31] MEDS: LORazepam 2 MG/ML VIAL 1 MG IVP (14:09)
--- NOTE | 2022-03-31 14:14 | PUCC_ITS ---
General Date of Service Date of service: 03/31/22 Time of Service: 14:14 Reason for Admission to ICU: COPD Exacerbation Respiratory Acidosis Assessment and Plan Assessment and plan (1) Acute on chronic respiratory failure with hypoxia and hypercapnia: Status: Acute (2) COPD exacerbation: Status: Acute (3) Cigarette smoker: Status: Acute Assessment and plan: This is a 56 yo man admitted to the ICU with acute on chronic hypoxic and hypercapnic respiratory failure necessitating BiPAP. He needs BiPAP to prevent intubation. I explained this in detail and he is willing to comply. I do recommend Precedex to facilitate BiPAP tolerance. I agree with getting a CTPE. Given the severity of his COPD, I do recommend resting him on BiPAP until at least tomorrow and would suggest continuing the Precedex to facilitate this as needed. Recommendations Pulmonary: Acute on chronic hypoxic and hypercapnic respiratory failure - recommend BiPAP 13/5 - would not increase IPAP higher than this given his bullous disease and high risk for pneumothorax - recommend Precedex infusion to facilitate BiPAP tolerance - Duonebs QID - albuterol neb prn - agree with CTPE COPD Exacerbation - hold on Symbicort and Spiriva while on BiPAP to limit positive pressure interruptions - once liberated from BiPAP can restart these inhalers - would continue prednisone 40mg for now and then to receive a taper - continue Levaquin for a total 5 days course Cardiac: Tachycardia - due to COPD exacerbation and respiratory failure Renal: No acute concerns I&O: Intake & Output 03/28/22 03/29/22 03/30/22 03/31/22 23:59 23:59 23:59 23:59 Intake Total 1250 / 1250 730 / 730 1450 / 1450 100 / 100 Output Total 300 / 300 150 / 150 Balance 950 / 950 730 / 730 1450 / 1450 -50 / -50 Weight 79.379 kg Daily Fluid Goal:: even to negative GI Nutrition: NPO while on BiPAP, ok to have diet once liberated from BiPAP Date of Last Bowel Movement: 03/30/22 Infectious Disease: No acute concerns Hematologic: No acute concerns Neurologic: Mental health illness - continue Seroquel and Klonopin and Wellbutrin Endocrine: No acute concerns Lines: PIV Prophylaxis: Lovenox and Protonix Code Status: Resuscitation Status Full Code Subjective Critical and life-threatening events over the past 24 hours: William developed worsening respiratory status with a respiratory acidosis (7.23/82/46). He was transferred to the ICU for this and started on BiPAP. He has had issues with tolerating the BiPAP. When I assessed him this afternoon I discussed with him the importance of the BiPAP and why it will work better than the non-rebreather mask he had on. I also asked Dr. Lynne to order Precedex to help with BiPAP tolerance. He is ordered for a CTPE, which I agree is appropriate. He had received 0.5mg Ativan but I wrote from him to receive another 1mg dose and forego a Precedex bolus. He is scared and is telling me he is afraid he won't make it. I told him he needs to allow the BiPAP or he will be intubated and put on life support. He is no agreeable to wear the BiPAP. He is having extreme shortness of breath and chest tightness. Exam Narrative Exam Narrative: Gen: NAD, normal respiratory effort, well-nourished HENT: PERRL Chest: Moderate to severe respiratory distress with tripoding. Little to no air movement heard. Heart: regular rate and rhythym, no murmurs, rubs or gallops Abdomen: Non-distended, soft, non tender Extremities: No clubbing, edema, cyanosis, rashes Neuro: AAOx3 , non focal Psych: cooperative, appropriate mental affect Most Recent VS/Results Last Vital Signs Temp 37.4 C 03/31/22 12:43 Pulse 130 H 03/31/22 12:48 Resp 31 H 03/31/22 12:48 BP 122/75 03/31/22 12:43 Pulse Ox 96 03/31/22 12:48 Laboratory Results - last 24 hr 03/31/22 03/31/22 03/31/22 05:30 05:30 05:30 WBC 7.37 RBC 4.73 Hgb 14.9 Hct 44.1 MCV 93 MCH 31.5 MCHC 33.8 RDW 12.4 Plt Count 159 MPV 10.6 Immature Gran % 0.5 Neutrophils % 80.4 Lymphocytes % 8.3 Monocytes % 10.7 Eosinophils % 0.0 Basophils % 0.1 Nucleated RBC % 0.0 Absolute Neutrophils 5.92 Absolute Lymphocytes 0.61 L Absolute Monocytes 0.79 Absolute Eosinophils 0.00 Absolute Basophils 0.01 D-Dimer ABG Sample Site ABG pH ABG pCO2 ABG pO2 ABG HCO3 ABG Total CO2 ABG O2 Saturation ABG Base Excess VBG pH VBG pCO2 VBG pO2 VBG HCO3 VBG Total CO2 VBG O2 Saturation VBG Base Excess Oxygen Liter Flow FiO2 Sodium 141 Potassium 4.0 Chloride 102 Carbon Dioxide 34.0 H Anion Gap 5.0 BUN 15 Creatinine 0.7 Estimated GFR/1.73 m2 >= 60.00 Glucose 101 Calcium 9.1 Magnesium Troponin I NT-Pro-B Natriuret Pep [place] < 0.2 L 03/31/22 03/31/22 03/31/22 11:35 11:50 11:50 WBC RBC Hgb Hct MCV MCH MCHC RDW Plt Count MPV Immature Gran % Neutrophils % Lymphocytes % Monocytes % Eosinophils % Basophils % Nucleated RBC % Absolute Neutrophils Absolute Lymphocytes Absolute Monocytes Absolute Eosinophils Absolute Basophils D-Dimer ABG Sample Site Right Radial ABG pH 7.23 L ABG pCO2 82 H* ABG pO2 46 L ABG HCO3 34 H ABG Total CO2 31 H ABG O2 Saturation 73 L ABG Base Excess 7 H VBG pH Cancelled VBG pCO2 Cancelled VBG pO2 Cancelled VBG HCO3 Cancelled VBG Total CO2 Cancelled VBG O2 Saturation Cancelled VBG Base Excess Cancelled Oxygen Liter Flow 4 FiO2 Cancelled Sodium Potassium Chloride Carbon Dioxide Anion Gap BUN Creatinine Estimated GFR/1.73 m2 Glucose Calcium Magnesium Troponin I < 50 NT-Pro-B Natriuret Pep 224 Cancelled [place] 03/31/22 03/31/22 03/31/22 11:50 12:10 13:32 WBC RBC Hgb Hct MCV MCH MCHC RDW Plt Count MPV Immature Gran % Neutrophils % Lymphocytes % Monocytes % Eosinophils % Basophils % Nucleated RBC % Absolute Neutrophils Absolute Lymphocytes Absolute Monocytes Absolute Eosinophils Absolute Basophils D-Dimer 1133 H ABG Sample Site ABG pH ABG pCO2 ABG pO2 ABG HCO3 ABG Total CO2 ABG O2 Saturation ABG Base Excess VBG pH 7.35 VBG pCO2 62 H* VBG pO2 69 VBG HCO3 34 H VBG Total CO2 30 H VBG O2 Saturation 93 VBG Base Excess 9 H Oxygen Liter Flow FiO2 Sodium Potassium Chloride Carbon Dioxide Anion Gap BUN Creatinine Estimated GFR/1.73 m2 Glucose Calcium Magnesium 2.1 Troponin I NT-Pro-B Natriuret Pep [place] Review of Systems All systems reviewed & are unremarkable except as noted in HPI and below Time spent with patient Time spent in Critical Care: 45 Time spent in Critical care included: Coordination of care, Chart review, Documenting critically ill care, Time at immediate bedside and Discussing critically ill care with other medical staff
[2022-03-31] MEDS: Enoxaparin 80 MG/0.8 ML SYR SC (14:15)
[2022-03-31 15:14] LABS: BE (Venous) 8 mmol/L (-2-3); HCO3 (Venous) 33 mmol/L (23-28); O2 Sat (Venous) 99 %; TCO2 (Venous) 29 mmol/L (24-29); pCO2 (Venous) 57 mmHg (41-51); pH (Venous) 7.37 (7.31-7.41); pO2 (Venous) 124 mmHg
--- NOTE | 2022-03-31 16:11 | NUR.NOTE ---
1445 Attempted to bring pt to CT for CTA. Pt was able to get on stretcher, but then refused to go to CT. Dr. Lynne notified, spoke with the pt, he still refused to do the test. No further orders at this time.
[2022-03-31] MEDS: QUEtiapine 300 MG TAB PO (19:41)
[2022-03-31] MEDS: Pravastatin 20 MG TAB PO (19:41)
[2022-03-31] MEDS: Acetaminophen 325 MG TAB 650 MG PO (19:44)
[2022-04-01] VITALS (80 sets, daily range): BP systolic 96–150; BP diastolic 64–107; PULSE 76–124; RESP 4–32; TEMP 31–37.3; O2SAT 87–98
--- NOTE | 2022-04-01 | DI.CT_ITS ---
Exam(s) CT CHEST PE CTA EXAM: CT CHEST PE CTA CLINICAL HISTORY: hypoxia. TECHNIQUE: Imaging Protocol: CT angiography of the chest was performed using pulmonary embolus love col. Multi planar reconstructions were performed. CONTRAST MATERIAL: Intravenous: Visipaque-320 / contrast volume: 100 cc COMPARISON: CT CT ABDOMEN PELVIS W from 02/18/2022 FINDINGS: CHEST: PULMONARY ARTERIES: There are no obvious intraluminal filling defects to suggest acute pulmonary embo li. LUNGS: Severe emphysematous changes in the superior lung chand. There is a large dominant bulla in the left upper lobe which measures 7 by 9 cm. Mild increased markings but no confluent infiltrates. No pleural effusions. No pneumothorax. No significant focal findings in trachea and mainstem bronc hi.. MEDIASTINUM: There is no hilar nor mediastinal adenopathy. Visualized thyroid unremarkable. CARDIAC: Heart size is upper normal. There is no pericardial effusion.Cardiac pacemaker wires noted. Caliber of the thoracic aorta is within normal limits. No dissection. There is no significant sh ift of the interventricular septum. PARTIALLY VISUALIZED UPPERMOST ABDOMEN: No obvious findings OSSEOUS: No significant osseous lesions.. IMPRESSION: 1. No evidence of acute pulmonary emboli. No evidence of pulmonary infarction.No pleural effusions. 2. Emphysematous changes with large 7 x 9 cm bulla in the left upper lobe. No pneumothorax. No conf luent infiltrates nor pleural effusions nor intrathoracic adenopathy. 3. Cardiac pacemaker. No pulmonary edema. RADIATION DOSE DELIVERED: 403.67mGy.cm Total DLP DATA REPOSITORY: All CT scans at this facility are submitted to the National Radiology Data Registry (NRDR) Dose Index Registry (DIR) with the [employer] (ACR). RADIATION OPTIMIZATION: All CT scans at this facility use at least one of these dose optimization te chniques: automated exposure control; mA and/or kV adjustment per patient size (includes targeted exa ms where dose is matched to clinical indication); or iterative reconstruction.
[2022-04-01] MEDS: Albuterol 2.5 MG/3 ML INH SOLN VIAL UPD ×3 (00:59→14:14)
[2022-04-01] MEDS: diphenhydrAMINE 25 MG CAP PO (01:14)
[2022-04-01] MEDS: Enoxaparin 80 MG/0.8 ML SYR SC (01:15)
--- NOTE | 2022-04-01 02:46 | NUR.NOTE ---
pt awakened and was extremely SOB, grunting respirations. sitting up on side of bed with. talked with pt about bipap again, possibility of intubatin. Pt not agreeable to either, bed table in front of him in tripod position washed pts back and face with cold water. felt better. all vs stable.
[2022-04-01] MEDS: Normal Saline Flush 10 ML SYR IVP ×3 (03:21→10:46)
[2022-04-01] MEDS: MORPHine 2 MG/ML SYR (03:29)
--- NOTE | 2022-04-01 04:16 | NUR.NOTE ---
0330-given a one time dose of morphine 2 mg iv for his difficulty breathing and severe back pain, pt now sitting in bed sleeping. resp easy. vs stable. o2 sats 98% with hi flow set at 55L, 52% FIO2.
[2022-04-01 05:48] LABS: Abs Immature Grans 0.07 10^3/uL (0.0-0.06); Absolute Basophil Count 0.01 10^3/uL (0.0-0.2); Absolute Lymphocyte Count 0.78 10^3/uL (1.2-3.4); Absolute Monocyte Count 0.77 10^3/uL (0.1-0.8); Absolute Neutrophil Count 6.47 10^3/uL (1.2-6.7); Basophils % 0.1; HCT 46.4 % (40.0-50.0); HGB 15.8 g/dL (13.5-17.5); Immature Grans % 0.9; Lymphocytes % 9.6; MCH 31.7 pg (27.0-33.0); MCHC 34.1 % (32.0-36.0); MCV 93 fL (80-95); MPV 10.7 fL (8.0-11.0); Monocytes % 9.5; Neutrophils % 79.9; Platelet Count 178 10^3/uL (130-400); RBC 4.98 10^6/uL (4.36-5.78); RDW 12.4 % (11.8-14.1); RDW-SD 42.5 fL
[2022-04-01 06:11] LABS: Anion Gap 6.3 mmol/L (3-11); BUN 19 mg/dL (7-18); CO2 33.7 mmol/L (21.0-32.0); CREATININE 0.8 mg/dL (0.70-1.30); Calcium 9.4 mg/dL (8.5-10.1); Chloride 100 mmol/L (98-107); Glucose 93 mg/dL (74-106); Magnesium 2.1 mg/dL (1.8-2.4); Sodium 140 mmol/L (136-145)
--- NOTE | 2022-04-01 06:58 | PUCC_ITS ---
General Date of Service Date of service: 04/01/22 Time of Service: 06:58 Reason for Admission to ICU: COPD Exacerbation Assessment and Plan Assessment and plan (1) Acute on chronic respiratory failure with hypoxia and hypercapnia: Status: Acute (2) COPD exacerbation: Status: Acute (3) Cigarette smoker: Status: Acute Assessment and plan: This is a 56 yo man admitted to the ICU with acute on chronic hypoxic and hyp ercapnic respiratory failure necessitating BiPAP. He needs BiPAP to prevent intubation. Despite Precedex he refused to wear BiPAP and refused to go for CTPE yesterday. He had an acute flare of his COPD yesterday which now seems to have resolved, primarily with reducing his respiratory rate. He has been wearing HFNC but I do not think he requires this anymore and recommend switching him back to his nasal cannula. I do think continuing with morphine solution in the setting of air hunger will be appropriate for him and likely help prevent these episodes in the future. Recommendations Pulmonary: Acute on chronic hypoxic and hypercapnic respiratory failure - patient refusing BiPAP - Duonebs QID - albuterol neb prn - agree with CTPE - patient refusing yesterday but today states he will try - empirically receiving therapeutic lovenox without complication but would like CTPE to confirm possible PE disgnosois - I added 10mg morphine solution q3h to help with air hunger - discontinued Precedex COPD Exacerbation - can restart Symbicort and Spiriva - would continue prednisone 40mg for now and then to receive a taper - continue Levaquin for a total 5 days course - palliative care consultation placed Cardiac: Tachycardia improved Renal: No acute concerns I&O: Intake & Output 03/29/22 03/30/22 03/31/22 04/01/22 23:59 23:59 23:59 23:59 Intake Total 730 / 730 1450 / 1450 153.779 / 153.779 Output Total 850 / 850 300 / 300 Balance 730 / 730 1450 / 1450 -696.221 / -696.221 -300 / -300 Daily Fluid Goal:: even to negative GI Nutrition: OK for diet Date of Last Bowel Movement: 03/30/22 Infectious Disease: No acute concerns Hematologic: No acute concerns Neurologic: Mental health illness - continue Seroquel and Klonopin and Wellbutrin - patient to receive psychiatry consult for capacity Endocrine: No acute concerns Lines: PIV Prophylaxis: Lovenox and Protonix Code Status: Resuscitation Status Full Code Exam Narrative Exam Narrative: Gen: NAD, normal respiratory effort, well-nourished HENT: PERRL Chest: Moderate to severe respiratory distress with tripoding. Little to no air movement heard. Heart: regular rate and rhythym, no murmurs, rubs or gallops Abdomen: Non-distended, soft, non tender Extremities: No clubbing, edema, cyanosis, rashes Neuro: AAOx3 , non focal Psych: cooperative, appropriate mental affect Most Recent VS/Results Last Vital Signs Temp 36.8 C 04/01/22 04:21 Pulse 91 H 04/01/22 05:01 Resp 29 H 04/01/22 06:00 BP 122/83 04/01/22 05:31 Pulse Ox 96 04/01/22 06:00 Laboratory Results - last 24 hr 03/31/22 03/31/22 03/31/22 05:30 11:35 11:50 WBC RBC Hgb Hct MCV MCH MCHC RDW Plt Count MPV Immature Gran % Neutrophils % Lymphocytes % Monocytes % Eosinophils % Basophils % Nucleated RBC % Absolute Neutrophils Absolute Lymphocytes Absolute Monocytes Absolute Eosinophils Absolute Basophils D-Dimer ABG Sample Site Right Radial ABG pH 7.23 L ABG pCO2 82 H* ABG pO2 46 L ABG HCO3 34 H ABG Total CO2 31 H ABG O2 Saturation 73 L ABG Base Excess 7 H VBG pH Cancelled VBG pCO2 Cancelled VBG pO2 Cancelled VBG HCO3 Cancelled VBG Total CO2 Cancelled VBG O2 Saturation Cancelled VBG Base Excess Cancelled Oxygen Liter Flow 4 FiO2 Cancelled Sodium Potassium Chloride Carbon Dioxide Anion Gap BUN Creatinine Estimated GFR/1.73 m2 Glucose Calcium Magnesium Troponin I < 50 NT-Pro-B Natriuret Pep 224 [place]well < 0.2 L 03/31/22 03/31/22 03/31/22 11:50 11:50 12:10 WBC RBC Hgb Hct MCV MCH MCHC RDW Plt Count MPV Immature Gran % Neutrophils % Lymphocytes % Monocytes % Eosinophils % Basophils % Nucleated RBC % Absolute Neutrophils Absolute Lymphocytes Absolute Monocytes Absolute Eosinophils Absolute Basophils D-Dimer 1133 H ABG Sample Site ABG pH ABG pCO2 ABG pO2 ABG HCO3 ABG Total CO2 ABG O2 Saturation ABG Base Excess VBG pH VBG pCO2 VBG pO2 VBG HCO3 VBG Total CO2 VBG O2 Saturation VBG Base Excess Oxygen Liter Flow FiO2 Sodium Potassium Chloride Carbon Dioxide Anion Gap BUN Creatinine Estimated GFR/1.73 m2 Glucose Calcium Magnesium 2.1 Troponin I NT-Pro-B Natriuret Pep Cancelled [place]well 03/31/22 03/31/22 04/01/22 13:32 15:05 04:38 WBC RBC Hgb Hct MCV MCH MCHC RDW Plt Count MPV Immature Gran % Neutrophils % Lymphocytes % Monocytes % Eosinophils % Basophils % Nucleated RBC % Absolute Neutrophils Absolute Lymphocytes Absolute Monocytes Absolute Eosinophils Absolute Basophils D-Dimer ABG Sample Site ABG pH ABG pCO2 ABG pO2 ABG HCO3 ABG Total CO2 ABG O2 Saturation ABG Base Excess VBG pH 7.35 7.37 VBG pCO2 62 H* 57 H VBG pO2 69 124 VBG HCO3 34 H 33 H VBG Total CO2 30 H 29 VBG O2 Saturation 93 99 VBG Base Excess 9 H 8 H Oxygen Liter Flow FiO2 Sodium 140 Potassium 4.0 Chloride 100 Carbon Dioxide 33.7 H Anion Gap 6.3 BUN 19 H Creatinine 0.8 Estimated GFR/1.73 m2 >= 60.00 Glucose 93 Calcium 9.4 Magnesium 2.1 Troponin I NT-Pro-B Natriuret Pep Broadwell 04/01/22 04:38 WBC 8.10 RBC 4.98 Hgb 15.8 Hct 46.4 MCV 93 MCH 31.7 MCHC 34.1 RDW 12.4 Plt Count 178 MPV 10.7 Immature Gran % 0.9 Neutrophils % 79.9 Lymphocytes % 9.6 Monocytes % 9.5 Eosinophils % 0.0 Basophils % 0.1 Nucleated RBC % 0.0 Absolute Neutrophils 6.47 Absolute Lymphocytes 0.78 L Absolute Monocytes 0.77 Absolute Eosinophils 0.00 Absolute Basophils 0.01 D-Dimer ABG Sample Site ABG pH ABG pCO2 ABG pO2 ABG HCO3 ABG Total CO2 ABG O2 Saturation ABG Base Excess VBG pH VBG pCO2 VBG pO2 VBG HCO3 VBG Total CO2 VBG O2 Saturation VBG Base Excess Oxygen Liter Flow FiO2 Sodium Potassium Chloride Carbon Dioxide Anion Gap BUN Creatinine Estimated GFR/1.73 m2 Glucose Calcium Magnesium Troponin I NT-Pro-B Natriuret Pep [place]well Review of Systems All systems reviewed & are unremarkable except as noted in HPI and below Time spent with patient Time spent in Critical Care: 40 Time spent in Critical care included: Chart review, Documenting critically ill care, Time at immediate bedside and Discussing critically ill care with other medical staff
[2022-04-01] MEDS: Albuterol/Ipratropium 3 ML UPD VIAL UPD ×4 (07:30→20:19)
[2022-04-01 07:55] LABS: BE (Venous) 11 mmol/L (-2-3); HCO3 (Venous) 36 mmol/L (23-28); O2 Sat (Venous) 98 %; TCO2 (Venous) 31 mmol/L (24-29); pCO2 (Venous) 60 mmHg (41-51); pH (Venous) 7.38 (7.31-7.41); pO2 (Venous) 117 mmHg
[2022-04-01] MEDS: Tiotropium Bromide-Respimat 10 PUFF INH 2 PUFF IH (07:58)
[2022-04-01] MEDS: Budesonide/Formoterol 80/4.5 6.9 GM 60 PUFF INH IH ×2 (07:58→20:19)
[2022-04-01] MEDS: LORazepam 2 MG/ML VIAL 1 MG IVP (08:04)
[2022-04-01 08:29] LABS: Lab Add On Test DONE
--- NOTE | 2022-04-01 08:37 | W.PM.PROGNOT ---
Date of Service Date of service: 04/01/22 Time of Service: 08:38 Assessment and Plan Assessment and plan (1) Acute on chronic respiratory failure with hypoxia and hypercapnia: Status: Acute Assessment and plan: Presumably due to COPD exacerbation as well as due to mild fluid overload. Discussed with Dr Yanez - it is also possible that anxiety could have triggered hypoventilation and is contributing to the COPD exacerbation. Consult psychiatry - for anxiety management as well as for capacity eval. Continue prn ativan and morphine PO. Consult palliative care to discuss goals of care. Remains full code at this time. Patient is refusing BiPAP. Continue diuresis. Continue PO steroids, current antibiotics, scheduled + prn nebs. Keep in ICU. (2) COPD exacerbation: Status: Acute Assessment and plan: As above - continue scheduled + prn nebs, prednisone, levofloxacin. Refusing BiPAP. Check phos. (3) Acute on chronic systolic CHF (congestive heart failure): Status: Acute Assessment and plan: May be contributing to the resp. failure. Obtain echo - no echo in our system in 2 years. 2 years ago, in 02/2020, LVEF was 45-50% and his RVSP was 36.8 mmHg. I suspect that both might be worse now. Continue diuresis. (4) Elevated d-dimer: Status: Acute Assessment and plan: Await CTA chest. Continue empiric therapeutic enoxaparin. (5) DVT prophylaxis: Status: Acute Assessment and plan: therapeutic lovenox (6) Discharge planning issues: Status: Acute Assessment and plan: Full code Keep in ICU. Total Critical Care Time [address] Yanez. Subjective Subjective Interval history since last seen: William spent the night on humidified heated high flow cannula - this am he is on 50 L 40% FiO2. Yesterday afternoon and throughout evening/last night, he was refusing BiPAP. He continues to refuse BiPAP. In conversation with me yesterday and this morning, he continues to state that he would want to be intubated if needed. However, last night, during an episode of respiratory distress, when he was offered intubation, per nursing, he refused it. The patient states he does not remember this interaction this morning. He did improve with morphine last night. This am, he was started on PO morphine. Prn ativan is also helpful. Denies dizziness, chest pain, shortness of breath is better, denies nausea. Exam Narrative Exam Narrative: General: Anxious middle-aged male, on humidified heated high flow NC, sitting at the edge of the bed, speaking in 3-4 word phrases, looks better than yesterday HEENT: EOMI, MMM Heart: RRR, no m/r/g Lungs: Expiratory wheezing B - slight improvement; no rales today Abdomen: soft, nontender, nondistended Extremities: trace edema BLEs Objective Last Vital Signs Temp 36.8 C 04/01/22 04:21 Pulse 90 04/01/22 07:30 Resp 30 H 04/01/22 07:30 BP 122/83 04/01/22 05:31 Pulse Ox 92 04/01/22 07:30 Laboratory Results - last 24 hr 03/31/22 03/31/22 03/31/22 11:35 11:50 11:50 WBC RBC Hgb Hct MCV MCH MCHC RDW Plt Count MPV Immature Gran % Neutrophils % Lymphocytes % Monocytes % Eosinophils % Basophils % Nucleated RBC % Absolute Neutrophils Absolute Lymphocytes Absolute Monocytes Absolute Eosinophils Absolute Basophils D-Dimer ABG Sample Site Right Radial ABG pH 7.23 L ABG pCO2 82 H* ABG pO2 46 L ABG HCO3 34 H ABG Total CO2 31 H ABG O2 Saturation 73 L ABG Base Excess 7 H VBG pH Cancelled VBG pCO2 Cancelled VBG pO2 Cancelled VBG HCO3 Cancelled VBG Total CO2 Cancelled VBG O2 Saturation Cancelled VBG Base Excess Cancelled Oxygen Liter Flow 4 FiO2 Cancelled Sodium Potassium Chloride Carbon Dioxide Anion Gap BUN Creatinine Estimated GFR/1.73 m2 Glucose Calcium Magnesium Troponin I < 50 NT-Pro-B Natriuret Pep 224 Cancelled Add-On Test Request 03/31/22 03/31/22 03/31/22 11:50 12:10 13:32 WBC RBC Hgb Hct MCV MCH MCHC RDW Plt Count MPV Immature Gran % Neutrophils % Lymphocytes % Monocytes % Eosinophils % Basophils % Nucleated RBC % Absolute Neutrophils Absolute Lymphocytes Absolute Monocytes Absolute Eosinophils Absolute Basophils D-Dimer 1133 H ABG Sample Site ABG pH ABG pCO2 ABG pO2 ABG HCO3 ABG Total CO2 ABG O2 Saturation ABG Base Excess VBG pH 7.35 VBG pCO2 62 H* VBG pO2 69 VBG HCO3 34 H VBG Total CO2 30 H VBG O2 Saturation 93 VBG Base Excess 9 H Oxygen Liter Flow FiO2 Sodium Potassium Chloride Carbon Dioxide Anion Gap BUN Creatinine Estimated GFR/1.73 m2 Glucose Calcium Magnesium 2.1 Troponin I NT-Pro-B Natriuret Pep Add-On Test Request 03/31/22 04/01/22 04/01/22 15:05 04:38 04:38 WBC 8.10 RBC 4.98 Hgb 15.8 Hct 46.4 MCV 93 MCH 31.7 MCHC 34.1 RDW 12.4 Plt Count 178 MPV 10.7 Immature Gran % 0.9 Neutrophils % 79.9 Lymphocytes % 9.6 Monocytes % 9.5 Eosinophils % 0.0 Basophils % 0.1 Nucleated RBC % 0.0 Absolute Neutrophils 6.47 Absolute Lymphocytes 0.78 L Absolute Monocytes 0.77 Absolute Eosinophils 0.00 Absolute Basophils 0.01 D-Dimer ABG Sample Site ABG pH ABG pCO2 ABG pO2 ABG HCO3 ABG Total CO2 ABG O2 Saturation ABG Base Excess VBG pH 7.37 VBG pCO2 57 H VBG pO2 124 VBG HCO3 33 H VBG Total CO2 29 VBG O2 Saturation 99 VBG Base Excess 8 H Oxygen Liter Flow FiO2 Sodium 140 Potassium 4.0 Chloride 100 Carbon Dioxide 33.7 H Anion Gap 6.3 BUN 19 H Creatinine 0.8 Estimated GFR/1.73 m2 >= 60.00 Glucose 93 Calcium 9.4 Magnesium 2.1 Troponin I NT-Pro-B Natriuret Pep Add-On Test Request 04/01/22 04/01/22 07:50 07:50 WBC RBC Hgb Hct MCV MCH MCHC RDW Plt Count MPV Immature Gran % Neutrophils % Lymphocytes % Monocytes % Eosinophils % Basophils % Nucleated RBC % Absolute Neutrophils Absolute Lymphocytes Absolute Monocytes Absolute Eosinophils Absolute Basophils D-Dimer ABG Sample Site ABG pH ABG pCO2 ABG pO2 ABG HCO3 ABG Total CO2 ABG O2 Saturation ABG Base Excess VBG pH 7.38 VBG pCO2 60 H VBG pO2 117 VBG HCO3 36 H VBG Total CO2 31 H VBG O2 Saturation 98 VBG Base Excess 11 H Oxygen Liter Flow FiO2 Sodium Potassium Chloride Carbon Dioxide Anion Gap BUN Creatinine Estimated GFR/1.73 m2 Glucose Calcium Magnesium Troponin I NT-Pro-B Natriuret Pep Add-On Test Request DONE Objective Narrative Objective Narrative: CTA still pending - patient did not agree to get it yesterday, agrees to it today. 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
[2022-04-01 08:41] LABS: PHOSPHORUS 4.5 mg/dL (2.6-4.7)
[2022-04-01] MEDS: Furosemide 20 MG/2 ML VIAL IVP ×2 (08:48→15:16)
[2022-04-01] MEDS: Nicotine 21 MG/24 HR PATCH TD (08:49)
[2022-04-01] MEDS: predniSONE 20 MG TAB 40 MG PO (08:51)
[2022-04-01] MEDS: clonazePAM 1 MG TAB PO ×2 (08:51→20:20)
[2022-04-01] MEDS: buPROPion-XL 150 MG TABCR 300 MG PO (08:52)
[2022-04-01] MEDS: levoFLOXacin 500 MG, levoFLOXacin 250 MG 750 MG PO (08:52)
[2022-04-01] MEDS: Tamsulosin 0.4 MG CAPCR PO (08:52)
[2022-04-01] MEDS: Acetaminophen 325 MG TAB PO (08:53)
[2022-04-01] MEDS: Pantoprazole 40 MG TABCR PO (08:53)
[2022-04-01] MEDS: Montelukast 10 MG TAB PO (08:53)
[2022-04-01] MEDS: Docusate Sodium 100 MG CAP PO ×2 (08:54→20:20)
[2022-04-01] MEDS: LORazepam 2 MG/ML VIAL IVP (10:46)
--- NOTE | 2022-04-01 12:36 | CMPROGNOTE_ITS ---
- If Service Date Differs Date of service: 04/01/22 Time of Service: 12:36 Care Management Progress Note S/O: William was sitting up on the edge of his bed when CM met with him. He stated that he is feeling a lot better today than he did yesterday. He is currently on high flow O2 nasal canula. He was able to have a CT today, which he was not able to tolerate yesterday. He also met with Una Martinez, from his PCP office, to fill out MCR forms in order for him to obtain prescription coverage. CM discussed terminal supervisor SUPRIYA with him, and assisted him with filling out the application. He will also meet with Palliative care this afternoon, and Joy, his SOLDER MAKING SUPERVISOR leather case finisher will be present for the meeting to support him. CM discussed this with him, and he is agreeable to the plan. Per report, his O2 will continue to be weaned as tolerated in order to get him closer to his baseline. CM will continue to follow. A: William is a 56 year old male admitted to [facility] on 03/28/22 with pneumonia. P: William will likely return to the care bed vs return home when medically cleared by provider. He may benefit from services upon discharge. He will follow up with his PCP, [facility], and discharge plan of care as instructed. He will be driven home via [facility] vs. private vehicle with a friend. CM will continue to follow.
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
--- NOTE | 2022-04-01 14:08 | PHACLINREV_ITS ---
Pharmacy Admission Review - Admission Clinical Review (Last Reviewed 04/01/22 @ 12:58 by Lucas Mayo MD) Discharge planning issues (Acute) DVT prophylaxis (Acute) Elevated d-dimer (Acute) Acute on chronic respiratory failure with hypoxia and hypercapnia (Acute) Pneumonia (Acute) COPD exacerbation (Acute) Cigarette smoker (Acute) Acute on chronic systolic CHF (congestive heart failure) (Acute) Noncompliance with medication regimen (Acute) No Known Allergies Allergy (Unverified 03/28/22 12:26) Resuscitation Status Full Code Height 5 ft 7 in Weight 79.379 kg - Renal Dosing Renal Dosing: BUN 19 mg/dL (7-18) H 04/01/22 04:38 Creatinine 0.8 mg/dL (0.70-1.30) 04/01/22 04:38 Medications needing adjustments: Reviewed (Crcl ~94 mL/min current meds okay) - Anticoagulation Anticoagulation: Hgb 15.8 g/dL (13.5-17.5) 04/01/22 04:38 Hct 46.4 % (40.0-50.0) 04/01/22 04:38 Plt Count 178 10^3/uL (130-400) 04/01/22 04:38 Creatinine 0.8 mg/dL (0.70-1.30) 04/01/22 04:38 DVT Prophylaxis: Reviewed Medications: Enoxaparin Therapeutic Anticoagulation: N/A - Opiate Usage Evaluate Pain Scale/Pains Meds: Reviewed Scheduled Bowel Reg ordered if on Opiates?: Yes - Relevant Labs Sodium 140 mmol/L (136-145) 04/01/22 04:38 Potassium 4.0 mmol/L (3.5-5.1) 04/01/22 04:38 Chloride 100 mmol/L (98-107) 04/01/22 04:38 Phosphorus 4.5 mg/dL (2.6-4.7) 04/01/22 07:50 Magnesium 2.1 mg/dL (1.8-2.4) 04/01/22 04:38 Electrolytes, C-Reactive P, ESR: Reviewed - DM Control DM Control: Glucose 93 mg/dL (74-106) 04/01/22 04:38 Insulin Dosing: N/A (A1c from 02/25/22 was 5.8) - Heart Failure/VT Heart Failure/VT: Troponin I < 50 ng/L (<or=60) 03/31/22 11:50 NT-Pro-B Natriuret Pep 224 pg/mL (<300) 03/31/22 11:50 NT-Pro-B Natriuret Pep Cancelled 03/31/22 11:50 EF%, TEOFILO's, B-Blockers, Diuretics: Reviewed - BP Control BP Control: Blood Pressure [Left Arm] 127/78 Blood Pressure 122/72 Blood Pressure 122/72 Blood Pressure 102/78 Blood Pressure 102/78 Blood Pressure 118/79 Blood Pressure 123/74 Blood Pressure 150/88 If elevated: Reviewed (BP has been up and down a bit this admission.) - Qtc Review If Elevated: Reviewed (Qtc from 03/31/22 was 618; pt has pacemaker and is AV paced. Provider aware.) - IV to PO Switch IV Medications: Reviewed - Home Meds Home Med List reviewed: Intervened (Med list in [place]. com. cn was updated from a medlist obtained from [facility] and active medication orders were reviewed to make sure the patient had the correct medications ordered while admitted.) Relevent Home Meds Not ordered & why?: bacitracin (PRN), - Current meds Current Medication Order Review: Intervened (Discontinued duplicate med orders. Talked to provider about discrepancies between active med orders and those from the updated home med list so adjustments could be made.) - Comments Comments/Follow Ups: Watch BP, labs, and for med changes. Antibiotic Activity - Pharmacy Antibiotic Review Pharmacy Antibiotic Activity: D/C antibiotic (Pt finished abx course for pneumonia per provider.)
[2022-04-01] MEDS: LORazepam 0.5 MG TAB PO (15:17)
--- NOTE | 2022-04-01 17:29 | W.PALLCONSUL ---
Date of service: 04/01/22 Time of Service: 16:00 History of Present Illness Narrative: Mr. Thomas is a 56 y/o M currently inpatient at [facility] 2/2 acute respiratory failure r/t COPD and PNA: PMHx sig for COPD, depression, anxiety, PTSD; purpose of consult to review GOC, code status, specifically intubation; present at visit pt and pt?s [employer] clinical case manager [facility] course: presented to ED 03/28/22 w/worsening dyspnea, found to have PNA, transferred inpatient, currently on Levaquin; improved to consider discharge when pt went into respiratory acidosis on 03/31/22, pulmonary following transferred to ICU, BiPAP started, pt not tolerating BiPAP and refusing, currently down titrating from HFNC w/goal of NC; initially refusing CTPE, but accepts today, PE r/o; continues morphine for air hunger; psych consult 04/01 d/t uncontrolled anxiety, pt has capacity ?If needed, he is clear in his desire to be intubated and receive cardiac life support if needed.? He understands that it isn't pleasant, but I want to live Pt is sitting at bedside during time of visit, initially receiving neb tx; agrees to visit; reports was only on continuous O2 3L for one day prior to re-presentation to [facility] hospital, previously at [facility]; was living in care bed prior to this for med mx of mental health, w/goals of stabilization, dyspnea sxs worsened, l/t current hospitalization pt aware of diagnosis of COPD, aware lifelong disease, aware will not be cured; is aware will be on lifelong O2; reports morphine working for air hunger, wishes could get it at more frequent intervals, currently q3h; reports breathing slightly improved w/duoneb, takes a long time, morphine works faster; reports no issues w/using HFNC, preference over BiPAP d/t face claustrophobia; reports FULL code status, would like every measure done to attempt to remain alive, reports alive means being ?awake and coherent?; pt aware that if respiratory status does not improve, may be intubated, would want intubation; unsure of if would want a trial intubation for a period of time vs remaining on ventilation indefinitely, would like to think about if trial how long trial may last; would like to think about this and follow up; mother was intubated several times, which he witnessed, aware of what it looks like, aware of sedation pt states that after hospital, thinks should go to SNF for additional help and rehab; does not have preference to where; Assessment and Plan Assessment and plan (1) Full code status: Status: Acute Assessment and plan: pt has clearly articulated, to multiple sources, FULL CODE status (2) COPD (chronic obstructive pulmonary disease): Status: Chronic (3) Acute exacerbation of chronic obstructive pulmonary disease: Status: Acute Assessment and plan: Recommendations Pulmonary: Acute on chronic hypoxic and hypercapnic respiratory failure - patient refusing BiPAP - Duonebs QID - albuterol neb prn - agree with CTPE - patient refusing yesterday but today states he will try - empirically receiving therapeutic lovenox without complication but would like CTPE to confirm possible PE disgnosois - I added 10mg morphine solution q3h to help with air hunger - discontinued Precedex COPD Exacerbation - can restart Symbicort and Spiriva - would continue prednisone 40mg for now and then to receive a taper - continue Levaquin for a total 5 days course (4) Generalized weakness: Status: Acute Assessment and plan: agreeable to SNF (5) Anxiety with depression: Assessment and plan: continue current meds - pt preference to go slow w/conversations and decisions regarding GOC - preference to have [employer] rep at visits (6) Palliative care patient: Status: Acute Assessment and plan: palliative to continue to follow through inpatient; remain FULL code, to continue to review intubation trial vs indefinite ventilation at f/u visits; to continue GOC discussions agreeable to d/c to SNF consider hospice PRN, based on pt preference/comfort reviewed palliative care w/pt, pt preference to continue w/current [facility] provider next week, aware may request palliative at any time; Review of Systems Narrative: as per HPI PFSH All Active Problems (Updated 04/02/22 @ 08:40 by Shanique Gonzalez NP) Palliative care patient (Acute) Full code status (Acute) Discharge planning issues (Acute) DVT prophylaxis (Acute) Elevated d-dimer (Acute) Acute on chronic respiratory failure with hypoxia and hypercapnia (Acute) Pneumonia (Acute) COPD exacerbation (Acute) COPD (chronic obstructive pulmonary disease) (Chronic) Altered mental status (Acute) Ambulatory dysfunction (Acute) Adult failure to thrive (Acute) Bullae (Acute) Cigarette smoker (Acute) Cognitive impairment (Chronic) Ambulatory dysfunction (Chronic) Current smoker (Acute) Lung bullae (Acute) Acute exacerbation of chronic obstructive pulmonary disease (Acute) Acute on chronic systolic CHF (congestive heart failure) (Acute) Musculoskeletal chest pain (Chronic) Lethargy (Acute) BPH (benign prostatic hyperplasia) (Chronic) Lung disease (Acute) Arthritis (Acute) COPD exacerbation (Acute) Noncompliance with medication regimen (Acute) Depression (Chronic) Generalized weakness (Acute) UTI (urinary tract infection) (Acute) Polysubstance abuse (Chronic) Confusion (Acute) Auditory hallucination (Chronic) Orthostatic hypotension (Acute) PTSD (post-traumatic stress disorder) (Chronic) Discharge planning issues (Acute) Ambulatory dysfunction (Acute) Dyspnea (Acute) COPD (chronic obstructive pulmonary disease) (Chronic) DVT prophylaxis (Acute) Left rib fracture (Acute) Rib fracture (Acute) Syncope (Chronic) Severe chronic obstructive pulmonary disease (Chronic) Biventricular implantable cardioverter-defibrillator (ICD) in situ (Chronic) Mode:DDD, Low rate 60bpm, Atrial lead: medtronic 5076, SN: [id number] 09/27/14; RV lead Medtronic [id number] SN: [id number] 09/27/14; LV lead Medtronic 4396, SN; TRACIE [id number] 09/27/14 (updated 03/11/20) Systolic and diastolic CHF, chronic (Chronic) LBBB (left bundle branch block) (Chronic) Nonischemic dilated cardiomyopathy (Chronic) Medical History Acquired deformity of left hand Agoraphobia Anxiety Anxiety with depression Cardiomyopathy Chest pain CHF (congestive heart failure) Chronic pain syndrome Constipation Cyst Diarrhea Dizziness DVT prophylaxis Erectile dysfunction Fatigue Hallucination Hand paresthesia Heart disease History of suicidal ideation History of tobacco abuse Hyperlipidemia Impacted ear wax Metacarpophalangeal joint pain Musculoskeletal chest pain Pacemaker Pain in right hip Panic anxiety syndrome Skin lesion Tobacco use Surgical History Status post biventricular pacemaker Family History Mother , 2008 COPD (chronic obstructive pulmonary disease) Social History Smoking/Tobacco Use Status: Former Tobacco Use Quit Date: 03/08/22 Pack-years: 120 Smoking risk assessment performed?: Yes Alcohol Intake: former Drug use: Never Substance use type: does not use Household members: none Pets and animals: No What type of physical activity do you participate in: none Seatbelt use: always Do you feel safe at home: Yes Do you feel safe in your relationship?: Yes Additional Social history: lives alone Exam Narrative Exam Narrative: pt remains in ICU; sitting at side of bed throughout exam, initially receiving neb tx, transitioned to HFNC w/no issues pt cooperative, agrees to visit; engages in conversation throughout, w/brief period of increased dyspnea/RR when intubation conversation initially begins; avoids eye contact intermittent, however provides full answers to open ended questions; oriented to person, place, year, season Const General: cooperative, no acute distress, anxious (worse w/intubation conversation) and ill appearing HENMT Head: normal to inspection and atraumatic Ears: hearing grossly normal bilaterally Other: HFNC in place Resp Effort & Inspection: labored, tachypneic and uses accessory muscles Extrem General: no pedal edema Psych Speech and Movement: speech clear Mood: congruent mood and anxious mood Affect: indifferent Attitude: cooperative, guarded and avoids eye contact Thought Process: impoverished Thought Content: normal Insight: fair Judgment: fair Results Last Vital Signs Temp 98.8 F 04/02/22 04:08 Pulse 98 H 04/02/22 07:49 Resp 19 04/02/22 07:49 BP 103/60 04/02/22 02:01 Pulse Ox 95 04/02/22 07:49 Labs Result diagrams: 04/02/22 05:12 04/02/22 05:12 Labs: Laboratory Results - last 24 hr 04/01/22 04/01/22 04/02/22 07:50 07:50 05:12 WBC RBC Hgb Hct MCV MCH MCHC RDW Plt Count MPV Immature Gran % Neutrophils % Lymphocytes % Monocytes % Eosinophils % Basophils % Nucleated RBC % Absolute Neutrophils Absolute Lymphocytes Absolute Monocytes Absolute Eosinophils Absolute Basophils Sodium 140 Potassium 3.7 Chloride 97 L Carbon Dioxide 37.1 H Anion Gap 5.9 BUN 19 H Creatinine 0.8 Estimated GFR/1.73 m2 >= 60.00 Glucose 95 Calcium 9.3 Phosphorus 4.5 Magnesium 2.0 Add-On Test Request DONE 04/02/22 05:12 WBC 6.12 RBC 4.88 Hgb 15.4 Hct 44.9 MCV 92 MCH 31.6 MCHC 34.3 RDW 12.2 Plt Count 168 MPV 10.4 Immature Gran % 1.3 Neutrophils % 70.0 Lymphocytes % 15.4 Monocytes % 12.9 Eosinophils % 0.2 Basophils % 0.2 Nucleated RBC % 0.0 Absolute Neutrophils 4.29 Absolute Lymphocytes 0.94 L Absolute Monocytes 0.79 Absolute Eosinophils 0.01 Absolute Basophils 0.01 Sodium Potassium Chloride Carbon Dioxide Anion Gap BUN Creatinine Estimated GFR/1.73 m2 Glucose Calcium Phosphorus Magnesium Add-On Test Request
[2022-04-01] MEDS: Pravastatin 20 MG TAB PO (20:20)
[2022-04-01] MEDS: QUEtiapine 300 MG TAB PO (20:21)
[2022-04-02] VITALS (28 sets, daily range): BP systolic 94–120; BP diastolic 60–84; PULSE 84–106; RESP 8–29; TEMP 31–37.1; O2SAT 91–96
[2022-04-02 06:13] LABS: Abs Immature Grans 0.08 10^3/uL (0.0-0.06); Absolute Basophil Count 0.01 10^3/uL (0.0-0.2); Absolute Eosinophil Count 0.01 10^3/uL (0.0-0.7); Absolute Lymphocyte Count 0.94 10^3/uL (1.2-3.4); Absolute Monocyte Count 0.79 10^3/uL (0.1-0.8); Absolute Neutrophil Count 4.29 10^3/uL (1.2-6.7); Basophils % 0.2; Eosinophils % 0.2; HCT 44.9 % (40.0-50.0); HGB 15.4 g/dL (13.5-17.5); Immature Grans % 1.3; Lymphocytes % 15.4; MCH 31.6 pg (27.0-33.0); MCHC 34.3 % (32.0-36.0); MCV 92 fL (80-95); MPV 10.4 fL (8.0-11.0); Monocytes % 12.9; Platelet Count 168 10^3/uL (130-400); RBC 4.88 10^6/uL (4.36-5.78); RDW 12.2 % (11.8-14.1); RDW-SD 41.3 fL; WBC 6.12 10^3/uL (4.4-10.8)
[2022-04-02 06:34] LABS: Anion Gap 5.9 mmol/L (3-11); BUN 19 mg/dL (7-18); CO2 37.1 mmol/L (21.0-32.0); CREATININE 0.8 mg/dL (0.70-1.30); Calcium 9.3 mg/dL (8.5-10.1); Chloride 97 mmol/L (98-107); Glucose 95 mg/dL (74-106); Potassium 3.7 mmol/L (3.5-5.1); Sodium 140 mmol/L (136-145)
[2022-04-02] MEDS: Pantoprazole 40 MG TABCR PO (06:54)
[2022-04-02] MEDS: Albuterol 2.5 MG/3 ML INH SOLN VIAL UPD (06:54)
[2022-04-02] MEDS: Albuterol/Ipratropium 3 ML UPD VIAL UPD ×4 (07:48→19:17)
[2022-04-02] MEDS: Tiotropium Bromide-Respimat 10 PUFF INH 2 PUFF IH (07:49)
[2022-04-02] MEDS: Budesonide/Formoterol 80/4.5 6.9 GM 60 PUFF INH IH ×2 (07:49→19:17)
[2022-04-02] MEDS: Polyethylene Glycol 3350 17 GM PACKET PO ×2 (08:47→19:11)
[2022-04-02] MEDS: levoFLOXacin 500 MG, levoFLOXacin 250 MG 750 MG PO (08:47)
[2022-04-02] MEDS: Acetaminophen 325 MG TAB PO (08:48)
[2022-04-02] MEDS: Gabapentin 100 MG CAP PO ×3 (08:49→19:12)
[2022-04-02] MEDS: Tamsulosin 0.4 MG CAPCR PO (08:49)
[2022-04-02] MEDS: predniSONE 20 MG TAB 40 MG PO (08:49)
[2022-04-02] MEDS: clonazePAM 1 MG TAB PO ×2 (08:49→19:11)
[2022-04-02] MEDS: Docusate Sodium 100 MG CAP PO ×2 (08:49→19:12)
[2022-04-02] MEDS: Montelukast 10 MG TAB PO (08:49)
[2022-04-02] MEDS: buPROPion-XL 150 MG TABCR 300 MG PO (08:50)
[2022-04-02] MEDS: Enoxaparin 40 MG/0.4 ML SYR SC (08:50)
[2022-04-02] MEDS: Nicotine 21 MG/24 HR PATCH TD (08:51)
--- NOTE | 2022-04-02 09:36 | CMPROGNOTE_ITS ---
- If Service Date Differs Date of service: 04/02/22 Time of Service: 09:36 Care Management Progress Note S/O: William was sitting up in bed when CM met with him. He stated that he is feeling better today. He remains on high flow nc, 45L 40%FiO2. CM discussed his Palliative care meeting with him which happened yesterday afternoon, and he stated that it was beautiful. He was very pleased with the conversation, stating that he felt seen. He expressed how pleased he has been with the care he is receiving at [facility]. Per report, William remains full code, and Palliative care will continue to follow his progress while in patient, as well as after he is discharged. CM asked about disposition, as SNF has been recommended once he is medically cleared, and he stated that he is interested in short term rehab. He reported that he would prefer to remain local, if possible, and asked for referrals to go to [facility] and the [facility]. CM will send the referrals, as requested. CM will continue to follow. A: William is a 56 year old male admitted to [facility] on 03/28/22 with pneumonia. P: William will likely return to the care bed vs return home when medically cleared by provider. He may benefit from services upon discharge. He will follow up with his PCP, [facility], and discharge plan of care as instructed. He will be driven home via [facility] vs. private vehicle with a friend. CM will continue to follow.
[2022-04-02] MEDS: Normal Saline Flush 10 ML SYR IVP ×2 (10:17→15:35)
[2022-04-02] MEDS: Furosemide 20 MG/2 ML VIAL IVP ×2 (10:17→15:35)
--- NOTE | 2022-04-02 10:31 | W.PM.PROGNOT ---
Date of Service Date of service: 04/02/22 Time of Service: 10:31 Assessment and Plan Assessment and plan (1) Acute on chronic respiratory failure with hypoxia and hypercapnia: Status: Acute Assessment and plan: Presumably due to COPD exacerbation as well as due to mild fluid overload. I suspect pulmonary hypertension might be a component as well. REfuses bipap, doing well on humidified heated high flow cannula. Added gabapentin to regimen to help with anxiety. Continue PO liquid morphine and ativan rn. Full code. Patient is refusing BiPAP. Continue diuresis. Continue PO steroids, current antibiotics, scheduled + prn nebs. Keep in ICU another 24 hrs. (2) COPD exacerbation: Status: Acute Assessment and plan: As above - continue scheduled + prn nebs, prednisone, levofloxacin. Refusing BiPAP. Full code - met with palliative care (3) Acute on chronic systolic CHF (congestive heart failure): Status: Acute Assessment and plan: May be contributing to the resp. failure. await echo - currently the machine has very limited functionality, we are trying to get this addressed. 2 years ago, in 02/2020, LVEF was 45-50% and his RVSP was 36.8 mmHg. Continue diuresis. (4) Elevated d-dimer: Status: Acute Assessment and plan: CTA negative. Likely reflects inflammatory response. (5) DVT prophylaxis: Status: Acute Assessment and plan: Sc lovenox (6) Discharge planning issues: Status: Acute Assessment and plan: Full code Keep in ICU. Total Critical Care Time 30 minutes. Subjective Subjective Interval history since last seen: Feels better today. Still short of breath but overall better. Cough nonproductive. On humidified heated high flow NC at 45L 40% FiO2 saturating 92%. Denies dizziness except for when he gets up too fast, denies CP, nausea, abdominal pain. Exam Narrative Exam Narrative: General: Anxious middle-aged male, looks significantly better today, sitting at the edge of the bed, A&ox3, speaking in 4-5 word phrases, not grunting, not appearing dyspneic to me - certainly better than yesterday. HEENT: EOMI, MMM Heart: RRR, no m/r/g Lungs: Diminished breath sounds B, no wheezing or rales. Abdomen: soft, nontender, nondistended Extremities: trace edema BLEs - improved. Objective Last Vital Signs Temp 37.1 C 06/09/22 04:08 Pulse 98 H 04/02/22 07:49 Resp 19 04/02/22 07:49 BP 103/60 04/02/22 02:01 Pulse Ox 95 04/02/22 07:49 Laboratory Results - last 24 hr 04/02/22 04/02/22 05:12 05:12 WBC 6.12 RBC 4.88 Hgb 15.4 Hct 44.9 MCV 92 MCH 31.6 MCHC 34.3 RDW 12.2 Plt Count 168 MPV 10.4 Immature Gran % 1.3 Neutrophils % 70.0 Lymphocytes % 15.4 Monocytes % 12.9 Eosinophils % 0.2 Basophils % 0.2 Nucleated RBC % 0.0 Absolute Neutrophils 4.29 Absolute Lymphocytes 0.94 L Absolute Monocytes 0.79 Absolute Eosinophils 0.01 Absolute Basophils 0.01 Sodium 140 Potassium 3.7 Chloride 97 L Carbon Dioxide 37.1 H Anion Gap 5.9 BUN 19 H Creatinine 0.8 Estimated GFR/1.73 m2 >= 60.00 Glucose 95 Calcium 9.3 Magnesium 2.0 Multi-Disciplinary Checklist Lines/Tubes CENTRAL LINE: no ARTERIAL LINE: no FREED: yes, Freed Day#: 2 Note: being removed today ENDOTRACHEAL TUBE: no ICU Maintenance GLUCOSE 140-180mg/dL: yes NUTRITION AT GOAL: yes PRESSURE ULCER: no RESTRAINTS: no ANTIBIOTICS(if yes, consider Stewardship): Yes Social Issues FAMILY UPDATED: no, Reason/Intervention: no one to update PT/OT: yes GOALS/DISPOSITION/CERTIFIED MEDICAL CODING SPECIALIST: yes CODE STATUS: Full (No BiPAP) Prophylaxis DVT PROPHYLAXIS: yes GI PROPHYLAXIS: yes, Indication: on steroids
--- NOTE | 2022-04-02 11:52 | PT.INIE ---
Date of service: 04/02/22 Time of Service: 11:52 PT Notes Visit Reasons: Pneumonia Inpatient Physical Therapy Evaluation Date: 04/02/2022 Referring Doctor: Lore Lynne MD PT Orders: PT CONSULT: Limited ability Precautions: Fall.? Standard.? Activity as tolerated.? Fall, standard Patient Profile/Admitting Diagnosis:? Patient is a 56-year-old male with acute on chronic respiratory failure with hypoxia and hypercapnia, COPD exacerbation, acute on chronic systolic congestive heart failure with LVEF of 45-50%, and elevated D-dimer referred for physical therapy for mobility assessment and discharge planning recommendations. PMHX: All Active Problems?(Updated 02/18/22 @ 23:02 by Lore Lynne MD) Discharge planning issues (Acute) DVT prophylaxis (Acute) Musculoskeletal chest pain (Acute) Constipation (Acute) Urinary retention (Acute) Acute exacerbation of chronic obstructive pulmonary disease (Acute) COPD (chronic obstructive pulmonary disease) (Chronic) Hypoxia (Acute) Altered mental status (Acute) Ambulatory dysfunction (Acute) Adult failure to thrive (Acute) Bullae (Acute) Chronic respiratory failure with hypoxia (Acute) Cigarette smoker (Acute) Cognitive impairment (Chronic) Ambulatory dysfunction (Chronic) DVT prophylaxis (Acute) Current smoker (Acute) Lung bullae (Acute) Acute exacerbation of chronic obstructive pulmonary disease (Acute) Acute on chronic systolic CHF (congestive heart failure) (Acute) Musculoskeletal chest pain (Chronic) Lethargy (Acute) BPH (benign prostatic hyperplasia) (Chronic) Lung disease (Acute) Arthritis (Acute) COPD exacerbation (Acute) Noncompliance with medication regimen (Acute) Depression (Chronic) Generalized weakness (Acute) UTI (urinary tract infection) (Acute) Discharge planning issues (Acute) Polysubstance abuse (Chronic) Confusion (Acute) Auditory hallucination (Acute) Orthostatic hypotension (Acute) PTSD (post-traumatic stress disorder) (Chronic) Discharge planning issues (Acute) Ambulatory dysfunction (Acute) Dyspnea (Acute) COPD (chronic obstructive pulmonary disease) (Chronic) DVT prophylaxis (Acute) Left rib fracture (Acute) Rib fracture (Acute) Syncope (Chronic) Severe chronic obstructive pulmonary disease (Chronic) Biventricular implantable cardioverter-defibrillator (ICD) in situ (Chronic) Mode:DDD, Low rate 60bpm, Atrial lead: medtronic 5076, SN: [id number] 09/27/14; RV lead Medtronic 6935M SN: [id number] 09/27/14; LV lead Medtronic 4396, SN; [id number] 09/27/14 (updated 03/11/20)Systolic and diastolic CHF, chronic (Chronic) LBBB (left bundle branch block) (Chronic) Nonischemic dilated cardiomyopathy (Chronic) Medical History Acquired deformity of left hand Agoraphobia Anxiety Anxiety with depression Arthritis Biventricular implantable cardioverter-defibrillator (ICD) in situ Mode:DDD, Low rate 60bpm, Atrial lead: medtronic 5076, SN: [id number] 09/27/14; RV lead Medtronic 6935M SN: [id number] 09/27/14; LV lead Medtronic 4396, SN; TRACIE [id number] 09/27/14 (updated 03/11/20)BPH (benign prostatic hyperplasia) Cardiomyopathy Chest pain CHF (congestive heart failure) Chronic pain syndrome Cognitive impairment Cyst Depression Diabetes Diarrhea Dizziness Erectile dysfunction Fatigue Hallucination Hand paresthesia Heart disease History of alcohol abuse History of suicidal ideation History of tobacco abuse Hyperlipidemia Impacted ear wax LBBB (left bundle branch block) Lung disease Metacarpophalangeal joint pain Nonischemic dilated cardiomyopathy Pacemaker Pain in right hip Panic anxiety syndrome PTSD (post-traumatic stress disorder) Severe chronic obstructive pulmonary disease Skin lesion Systolic and diastolic CHF, chronic Tobacco use Surgical History? Status post biventricular pacemaker Social History/Home Situation: Patient lives alone in a two-level home with no steps to enter.? He receives assistance from[employer] multiple times per day.? He is disabled and no longer working.? States that he still has his walker that was given to him previously. No longer works.? On disability. Equipment Owned/DME: [employer] Subjective:?? Agreeable to PT consult.? Complains of moderate shortness of breath with today's transfer activity. Objective:? General Observation: Supine in bed.? Telemetry monitoring in place. On high flow rate oxygen supplementation via NC. Friend catheter in place. Mental Status: Alert and oriented as to person and place.? Responses to conversation appropriate. Able to follow multiple step commands Pain: None reported ROM: Right Upper Extremity: ? Shoulder Flexion WFL. Shoulder abduction WFL. Elbow flexion WFL. Wrist flexion WFL. Functional opening and closing of hand WFL. Left Upper Extremity:? Shoulder Flexion WFL. Shoulder abduction WFL. Elbow flexion WFL. Wrist flexion WFL. Functional opening and closing of hand WFL. Right Lower Extremity: Hip flexion WFL. Hip abduction WFL. Knee flexion WFL. Ankle dorsiflexion WFL. Ankle plantarflexion WFL. Left Lower Extremity: Hip flexion WFL. Hip abduction WFL. Knee flexion WFL. Ankle dorsiflexion WFL. Ankle plantarflexion WFL. Strength: Right Upper Extremity: Shoulder flexors 4-/5. Shoulder abductors 4-/5. Elbow flexors 5/5. Elbow extensors 4-/5. Hospital Security Officer strong. Left Upper Extremity: Shoulder flexors 4-/5. Shoulder abductors 4-/5. Elbow flexors 5/5. Elbow extensors 4-/5. Hospital Security Officer strong. Right Lower Extremity: Hip flexors 4-/5. Hip abductors 4-/5. Knee flexors 5/5. Knee extensors 4-/5. Ankle dorsiflexors 4-/5. Ankle plantarflexors 4/5. Left Lower Extremity: Hip flexors 4-/5. Hip abductors 4-/5. Knee flexors 5/5. Knee extensors 4-/5. Ankle dorsiflexors 4-/5. Ankle plantarflexors 4/5. Bed Mobility/Transfers: Supine?sit: stand by assist Sit?supine: stand by assist Sit?stand: contact guard assist stand?sit: contact guard assist Bed to chair: contact guard assist Gait:? Tolerated 3-4 steps for today's transfer from edge of bed to chair with just contact guard assist. Complained of moderate shortness of breath that subsided with rest. Balance:? Static Sitting: Normal Dynamic Sitting: Normal Static Standing: Fair Dynamic Standing: Fair 4- stage balance test: Able to maintain feet together and semi-tandem but is unable to do so with full tandem and one-legged stance indicating 50% deficit with static standing balance. Special Tests: Mobility Limitations Standardized Measure [facility] 6 clicks Basic Mobility Inpatient Short Form: Raw Score: 15 ? CMS Score: 58% impairment ? ? ? Informed Consent/Education:? Patient instructed in purpose of PT consult and plan of care. Assessment:? Patient is a 56-year-old male with acute on chronic respiratory failure with hypoxia and hypercapnia, COPD exacerbation, acute on chronic systolic congestive heart failure with LVEF of 45-50%, and elevated D-dimer referred for physical therapy for mobility assessment and discharge planning recommendations. Patient presents with clinical signs and symptoms consistent with diminished functional mobility related to acute medical issues, as demonstrated by the following impairment level findings: 1.? Decreased balance 2.? Decreased lower extremity strength 3.? Decreased upper extremity strength 4. Shortness of breath 5. Decreased breathing efficiency Impairments are contributing to the following functional limitations: 1.? Difficulty with ambulation without assistive device 2.? Increased completion time for mobility ADL performance 3.? Increased risk for falls Patient is assessed as a 85450 moderate complexity based on the following: History: 56-year-old male with past medical history as indicated above Examination: Demonstrable impairment in strength, balance, and mobility level with underlying impairments and functional limitations as exhibited above as well as deficit score of 11% utilizing the [facility] Mobility Inpatient Short Form Presentation: Evolving Decision Makin moderate complexity Goals: Goals X1 week 1. Supine-Sit: Independent 2. Sit-Supine: Independent 3. Sit-Stand: Independent 4. Stand-Sit: Independent 5. Bed-Chair: Independent with use of FWW 6. Chair-Bed: Independent with the use of FWW 7. Gait: Supervision x200 feet with FWW 8. Stairs: Supervision on therapeutic stairs x5 9. Independent with home exercise program DISCHARGE RECOMMENDATIONS: [] ? Home with no services [] [X] ? Home with services.? Home when medically cleared by hospitalist.? Patient will benefit from home health PT services in order to progress mobility level using least restrictive assistive ambulatory device, assess home safety, identify additional equipment needs, and establish a functional maintenance program that will increase ability of patient to remain at home. [] ? Home with outpatient PT [] [] ? SNF for continued rehabilitation [] [] ? [facility] [] [] ? SNF versus LTC based on ability to participate and progress [] TREATMENT CODE/TIME: 54600 x 20 minutes beginning at 11:52 AM. Thank you for the opportunity to participate in the care of this patient. Valentine Tavera PT, DPT, CLT [facility] [place], [place]
--- NOTE | 2022-04-02 15:21 | PT.INNT ---
Date of service: 04/02/22 Time of Service: 15:21 PT Notes Visit Reasons: Pneumonia 04/02/2022 Patient refused afternoon PT session, stating that he would like a breathing treatment prior to participating in PT. RT not available at this time. Will attempt to resume PT services tomorrow morning.
[2022-04-02] MEDS: Bisacodyl 5 MG TABEC PO (15:51)
[2022-04-02] MEDS: Pravastatin 20 MG TAB PO (19:11)
[2022-04-02] MEDS: QUEtiapine 300 MG TAB PO (22:22)
[2022-04-03] VITALS (29 sets, daily range): BP systolic 95–120; BP diastolic 61–97; PULSE 84–115; RESP 8–22; TEMP 31–36.8; O2SAT 90–98
[2022-04-03 06:35] LABS: Anion Gap 4.7 mmol/L (3-11); BUN 24 mg/dL (7-18); CO2 38.3 mmol/L (21.0-32.0); CREATININE 0.9 mg/dL (0.70-1.30); Calcium 9.5 mg/dL (8.5-10.1); Chloride 94 mmol/L (98-107); Glucose 101 mg/dL (74-106); Magnesium 2.2 mg/dL (1.8-2.4); Potassium 3.6 mmol/L (3.5-5.1); Sodium 137 mmol/L (136-145)
[2022-04-03] MEDS: Pantoprazole 40 MG TABCR PO (07:27)
[2022-04-03] MEDS: Bisacodyl 5 MG TABEC PO (07:27)
[2022-04-03] MEDS: Albuterol/Ipratropium 3 ML UPD VIAL UPD ×4 (07:28→20:51)
[2022-04-03] MEDS: Furosemide 20 MG/2 ML VIAL IVP (07:32)
[2022-04-03] MEDS: Nicotine 21 MG/24 HR PATCH TD (07:33)
[2022-04-03] MEDS: Normal Saline Flush 10 ML SYR IVP (07:33)
[2022-04-03] MEDS: Polyethylene Glycol 3350 17 GM PACKET PO ×2 (07:34→20:56)
[2022-04-03] MEDS: Enoxaparin 40 MG/0.4 ML SYR SC (07:34)
[2022-04-03] MEDS: Budesonide/Formoterol 80/4.5 6.9 GM 60 PUFF INH IH ×2 (07:44→20:57)
[2022-04-03] MEDS: Tiotropium Bromide-Respimat 10 PUFF INH 2 PUFF IH (07:44)
[2022-04-03] MEDS: buPROPion-XL 150 MG TABCR 300 MG PO (07:49)
[2022-04-03] MEDS: Tamsulosin 0.4 MG CAPCR PO (07:49)
[2022-04-03] MEDS: Montelukast 10 MG TAB PO (07:49)
[2022-04-03] MEDS: Gabapentin 100 MG CAP PO ×3 (07:50→20:53)
[2022-04-03] MEDS: clonazePAM 1 MG TAB PO ×2 (07:50→20:52)
[2022-04-03] MEDS: Docusate Sodium 100 MG CAP PO ×2 (07:50→20:52)
[2022-04-03] MEDS: Acetaminophen 325 MG TAB PO (07:50)
[2022-04-03] MEDS: predniSONE 20 MG TAB 40 MG PO (07:50)
[2022-04-03] MEDS: Milk of Magnesia 30 ML CUP PO (09:30)
--- NOTE | 2022-04-03 10:08 | W.PM.PROGNOT ---
Date of Service Date of service: 04/03/22 Time of Service: 09:30 Assessment and Plan Assessment and plan (1) Acute on chronic respiratory failure with hypoxia and hypercapnia: Status: Acute Assessment and plan: Presumably due to COPD exacerbation as well as due to mild fluid overload. I suspect pulmonary hypertension might be a component as well. REfuses bipap, doing well on humidified heated high flow cannula. Much better on PO morphine/prn ativan Continue gabapentin for anxiety in addition to clonazepam. Full code. Patient is refusing BiPAP. Change diuresis to PO. Continue PO steroids, current antibiotics, scheduled + prn nebs. Consider transfer out of the ICU later today (2) COPD exacerbation: Status: Acute Assessment and plan: As above - continue scheduled + prn nebs, prednisone. Finished abx. Refusing BiPAP. Full code - met with palliative care (3) Acute on chronic systolic CHF (congestive heart failure): Status: Acute Assessment and plan: May be contributing to the resp. failure. await echo - not available until next week. 2 years ago, in 02/2020, LVEF was 45-50% and his RVSP was 36.8 mmHg. Continue diuresis (change to PO). (4) Elevated d-dimer: Status: Acute Assessment and plan: CTA negative. Likely reflects inflammatory response. (5) DVT prophylaxis: Status: Acute Assessment and plan: Sc lovenox (6) Discharge planning issues: Status: Acute Assessment and plan: Full code Consider transfer out of the ICU later today. Subjective Subjective Interval history since last seen: Mr Gay states I cannot tell you how comfortable I am. He thinks that morphine is really helping - it's a miracle! Denies dizziness, chest pain, still feels a little short of breath, but much better than before, denies n/v. Constipated. On humidified heated high flow O2 -45 L, 40% saturating 95%. This is being titrated down today. Exam Narrative Exam Narrative: General: Anxious middle-aged male, looks very comfortable, A&Ox3, no dyspnea/tachypnea while laying flat in bed HEENT: EOMI, MMM Heart: RRR, no m/r/g Lungs: Diminished breath sounds B, mild rhonchi on expiration B. Abdomen: soft, nontender, nondistended Extremities: no edema BLEs Objective Last Vital Signs Temp 36.5 C 04/03/22 00:00 Pulse 87 04/03/22 06:01 Resp 14 04/03/22 06:01 BP 102/72 04/03/22 06:01 Pulse Ox 94 04/03/22 06:01 Laboratory Results - last 24 hr 04/03/22 05:22 Sodium 137 Potassium 3.6 Chloride 94 L Carbon Dioxide 38.3 H Anion Gap 4.7 BUN 24 H Creatinine 0.9 Estimated GFR/1.73 m2 >= 60.00 Glucose 101 Calcium 9.5 Magnesium 2.2 Multi-Disciplinary Checklist Lines/Tubes CENTRAL LINE: no ARTERIAL LINE: no FREED: no ENDOTRACHEAL TUBE: no ICU Maintenance GLUCOSE 140-180mg/dL: yes NUTRITION AT GOAL: yes PRESSURE ULCER: no RESTRAINTS: no ANTIBIOTICS(if yes, consider Stewardship): No Social Issues FAMILY UPDATED: no, Reason/Intervention: no one to update PT/OT: yes GOALS/DISPOSITION/BUSINESS OPERATIONS CONSULTANT: yes CODE STATUS: Full Prophylaxis DVT PROPHYLAXIS: yes GI PROPHYLAXIS: yes, Indication: on steroids
--- NOTE | 2022-04-03 13:12 | CMPROGNOTE_ITS ---
- If Service Date Differs Date of service: 04/03/22 Time of Service: 13:12 Care Management Progress Note S/O: William was sitting up on the edge of his bed when CM met with him today. He stated that he is doing ok, but still laboring to breath. He remains on high flow O2. He stated that he worked with PT today, although he was limited in what he could do. He stated that he didn't run out of breath, but was afraid he would, which he stated is a scary feeling. CM discussed his discharge plan, which will be for him to go to short term rehab prior to returning home. He received a bed offer from [facility], which was his first choice. He will transition to [facility] once he is medically cleared. CM talked to ROSA Kat, who requested clinicals to determine [facility] eligibility. CM will continue to follow. A: William is a 56 year old male admitted to [facility] on 03/28/22 with pneumonia. P: William will likely return to the care bed vs return home when medically cleared by provider. He may benefit from services upon discharge. He will follow up with his PCP, [facility], and discharge plan of care as instructed. He will be driven home via [facility] vs. private vehicle with a friend. CM will continue to follow.
--- NOTE | 2022-04-03 13:46 | PT.INTREAT ---
Date of service: 04/03/22 Time of Service: 13:26 PT Notes Visit Reasons: Pneumonia Inpatient Physical Therapy Treatment Note [facility] Date: 04/03/2022 PRECAUTIONS: Activity as tolerated, HiFlo O2 SUBJECTIVE: William is pleasant and agreeable to participating in PT. He reports that he is feeling a little better, but continues to feel SOB with activity. OBJECTIVE: PAIN: No c/o pain BED MOBILITY/TRANSFERS Sit-supine: I Sit-stand: I Stand-sit: I GAIT Assistive Device: No AD Weight bearing: Full Assist: S Distance: 15' + 40' + 15' Deviation: Slow pacing, seated rest x3 distance limited due to attached to HiFlo O2 system ASSESSMENT: Patient tolerated session with complaint of increased SOB. He was able to tolerate a slight progression in gait distance without assistive device support. He demonstrates independence with transfers and bed mobility at this time. PLAN: Continue with gait training and general conditioning for improved activity tolerance. TREATMENT CODE/TIME: Session 1: Refused x2 Session 2: 19 minutes; 83484 (13:26)
[2022-04-03] MEDS: LORazepam 0.5 MG TAB PO ×2 (14:44→20:53)
[2022-04-03] MEDS: Senna TAB 1 TAB PO (18:57)
[2022-04-03] MEDS: Bisacodyl 10 MG SUPP PR (18:57)
[2022-04-03] MEDS: Pravastatin 20 MG TAB PO (20:52)
[2022-04-03] MEDS: diphenhydrAMINE 25 MG CAP PO (20:52)
[2022-04-03] MEDS: QUEtiapine 300 MG TAB PO (21:15)
[2022-04-04] VITALS (29 sets, daily range): BP systolic 97–138; BP diastolic 58–86; PULSE 77–136; RESP 4–38; TEMP 36.8; O2SAT 69–96
[2022-04-04 07:08] LABS: Anion Gap 3.9 mmol/L (3-11); BUN 24 mg/dL (7-18); CO2 37.1 mmol/L (21.0-32.0); Calcium 9.2 mg/dL (8.5-10.1); Chloride 95 mmol/L (98-107); Glucose 109 mg/dL (74-106); Magnesium 2.5 mg/dL (1.8-2.4); Potassium 3.6 mmol/L (3.5-5.1); Sodium 136 mmol/L (136-145)
[2022-04-04] MEDS: Acetaminophen 325 MG TAB PO (08:00)
[2022-04-04] MEDS: clonazePAM 1 MG TAB PO ×2 (08:00→20:50)
[2022-04-04] MEDS: Budesonide/Formoterol 80/4.5 6.9 GM 60 PUFF INH IH ×2 (08:00→20:52)
[2022-04-04] MEDS: Albuterol/Ipratropium 3 ML UPD VIAL UPD ×4 (08:00→20:49)
[2022-04-04] MEDS: buPROPion-XL 150 MG TABCR 300 MG PO (08:00)
[2022-04-04] MEDS: Gabapentin 100 MG CAP PO ×3 (08:01→20:50)
[2022-04-04] MEDS: Enoxaparin 40 MG/0.4 ML SYR SC (08:01)
[2022-04-04] MEDS: Tiotropium Bromide-Respimat 10 PUFF INH 2 PUFF IH (08:01)
[2022-04-04] MEDS: Docusate Sodium 100 MG CAP PO ×2 (08:01→20:50)
[2022-04-04] MEDS: Furosemide 20 MG TAB PO (08:01)
[2022-04-04] MEDS: Pantoprazole 40 MG TABCR PO (08:02)
[2022-04-04] MEDS: predniSONE 20 MG TAB 40 MG PO (08:02)
[2022-04-04] MEDS: Nicotine 21 MG/24 HR PATCH TD (08:02)
[2022-04-04] MEDS: Polyethylene Glycol 3350 17 GM PACKET PO (08:02)
[2022-04-04] MEDS: Montelukast 10 MG TAB PO (08:02)
[2022-04-04] MEDS: Tamsulosin 0.4 MG CAPCR PO (08:03)
--- NOTE | 2022-04-04 08:17 | NUR.NOTE ---
Patient is set up with his breakfast tray.Nursing Note:
--- NOTE | 2022-04-04 10:18 | NUR.NOTE ---
Respiratory therapist places patient on a high flow nasal cannula at 6 liters of 02. Patient is sating 91% on same.Nursing Note:
--- NOTE | 2022-04-04 10:57 | PT.INNT ---
Date of service: 04/04/22 Time of Service: 10:57 PT Notes Visit Reasons: Pneumonia 04/04/2022 Patient refused PT session x2 stating that he is not feeling well today, that he is feeling like he is having a hard time catching his breath. Will attempt to resume PT services tomorrow morning.
--- NOTE | 2022-04-04 12:09 | NUR.NOTE ---
Respiratory therapist decreased flow to 5 liters via high flow nasal cannula. Patient is given a breathing treatment. Patient simply ordered a coffee for lunch.Nursing Note:
--- NOTE | 2022-04-04 12:26 | PGE_ITS ---
Date of Service Date of service: 04/04/22 Time of Service: 10:30 Assessment and Plan Assessment and plan (1) Acute on chronic respiratory failure with hypoxia and hypercapnia: Status: Acute Assessment and plan: Presumably due to COPD exacerbation as well as due to mild fluid overload. I suspect pulmonary hypertension might be a component as well. Refuses bipap, doing well on humidified heated high flow cannula. Transitioning to regular NC today. Much better on PO morphine/prn ativan Continue gabapentin for anxiety in addition to clonazepam. Full code. Continue diuresis (PO). Continue PO steroids, scheduled + prn nebs. Finished antibiotics. Transferred to [facility] floor. (2) COPD exacerbation: Status: Acute Assessment and plan: As above - continue scheduled + prn nebs, prednisone. Finished abx. Refusing BiPAP. Full code - met with palliative care (3) Acute on chronic systolic CHF (congestive heart failure): Status: Acute Assessment and plan: May be contributing to the resp. failure. await echo - not available until next week. 2 years ago, in 02/2020, LVEF was 45-50% and his RVSP was 36.8 mmHg. Continue diuresis. (4) Elevated d-dimer: Status: Acute Assessment and plan: CTA negative. Likely reflects inflammatory response. (5) DVT prophylaxis: Status: Acute Assessment and plan: Sc lovenox (6) Discharge planning issues: Status: Acute Assessment and plan: Full code [facility] status. Will need SNF placement. Subjective Subjective Interval history since last seen: William had a BM. He feels better. States the humidity of the humidified heated high flow is bothering him. Denies dizziness, chest pain, shortness of breath is better, denies n/v. On humidified heated high flow NC, he was saturating 95% on 40 L 40% FiO2. Exam Narrative Exam Narrative: General: Anxious middle-aged male, laying in bed on humidified heated high flow, A&Ox3, no dyspnea/tachypnea while laying flat in bed HEENT: EOMI, MMM Heart: RRR, no m/r/g Lungs: Diminished breath sounds B, no rhonchi or rales Abdomen: soft, nontender, nondistended Extremities: no edema BLEs Objective Last Vital Signs Temp 36.8 C 04/04/22 09:12 Pulse 94 H 04/04/22 09:12 Resp 16 04/04/22 12:07 BP 97/58 L 04/04/22 09:12 Pulse Ox 93 04/04/22 12:07 Laboratory Results - last 24 hr 04/04/22 05:16 Sodium 136 Potassium 3.6 Chloride 95 L Carbon Dioxide 37.1 H Anion Gap 3.9 BUN 24 H Creatinine 1.0 Estimated GFR/1.73 m2 >= 60.00 Glucose 109 H Calcium 9.2 Magnesium 2.5 H
--- NOTE | 2022-04-04 14:05 | NUR.NOTE ---
Patient on 4 liters of 02 via high flow nasal cannula. Patient is sating 94%. Patient is resting in bed.Nursing Note:
[2022-04-04] MEDS: Normal Saline Flush 10 ML SYR IVP (14:12)
[2022-04-04] MEDS: guaiFENesin 200 MG/10 ML CUP PO (20:50)
[2022-04-04] MEDS: Pravastatin 20 MG TAB PO (20:50)
[2022-04-04] MEDS: QUEtiapine 300 MG TAB PO (22:05)
[2022-04-05] VITALS (12 sets, daily range): BP systolic 114–129; BP diastolic 71–80; PULSE 87–105; RESP 4–22; TEMP 35.9–37.2; O2SAT 91–98
[2022-04-05 05:40] LABS: Platelet Count 163 10^3/uL (130-400)
[2022-04-05 05:55] LABS: Anion Gap 3.3 mmol/L (3-11); BUN 22 mg/dL (7-18); CO2 38.7 mmol/L (21.0-32.0); Chloride 97 mmol/L (98-107); Glucose 222 mg/dL (74-106); Magnesium 2.5 mg/dL (1.8-2.4); Potassium 3.3 mmol/L (3.5-5.1); Sodium 139 mmol/L (136-145)
[2022-04-05] MEDS: Albuterol 2.5 MG/3 ML INH SOLN VIAL UPD (06:25)
[2022-04-05 06:31] LABS: Procalcitonin 0.1 ng/mL
[2022-04-05] MEDS: Albuterol/Ipratropium 3 ML UPD VIAL UPD ×4 (07:14→20:29)
[2022-04-05] MEDS: Tiotropium Bromide-Respimat 10 PUFF INH 2 PUFF IH (07:15)
[2022-04-05] MEDS: Budesonide/Formoterol 80/4.5 6.9 GM 60 PUFF INH IH ×2 (07:15→20:30)
[2022-04-05] MEDS: Enoxaparin 40 MG/0.4 ML SYR SC (07:47)
[2022-04-05] MEDS: Nicotine 21 MG/24 HR PATCH TD (07:48)
[2022-04-05] MEDS: Polyethylene Glycol 3350 17 GM PACKET PO (07:48)
[2022-04-05] MEDS: Docusate Sodium 100 MG CAP PO ×2 (07:48→20:28)
[2022-04-05] MEDS: clonazePAM 1 MG TAB PO ×2 (07:49→20:28)
[2022-04-05] MEDS: Pantoprazole 40 MG TABCR PO (07:49)
[2022-04-05] MEDS: Montelukast 10 MG TAB PO (07:49)
[2022-04-05] MEDS: Furosemide 20 MG TAB PO (07:49)
[2022-04-05] MEDS: Gabapentin 100 MG CAP PO ×3 (07:49→20:28)
[2022-04-05] MEDS: predniSONE 20 MG TAB 40 MG PO (07:49)
[2022-04-05] MEDS: Acetaminophen 325 MG TAB PO (07:49)
[2022-04-05] MEDS: Tamsulosin 0.4 MG CAPCR PO (07:50)
[2022-04-05] MEDS: buPROPion-XL 150 MG TABCR 300 MG PO (07:50)
[2022-04-05] MEDS: Potassium Chloride 20 MEQ TABCR 40 MEQ PO (09:26)
--- NOTE | 2022-04-05 10:57 | PT.INNT ---
Date of service: 04/05/22 Time of Service: 10:58 PT Notes Visit Reasons: Pneumonia 04/05/2022 Patient refused PT session stating that he is not feeling well today, that he is feeling like he is having a hard time catching his breath. Will attempt to resume PT services tomorrow morning.
--- NOTE | 2022-04-05 15:36 | W.PM.PROGNOT ---
Date of Service Date of service: 04/05/22 Time of Service: 15:36 Assessment and Plan Assessment and plan (1) Acute on chronic respiratory failure with hypoxia and hypercapnia: Status: Acute Assessment and plan: Presumably due to COPD exacerbation as well as due to mild fluid overload. I suspect pulmonary hypertension might be a component as well. Refuses bipap, doing well on regular NC today, 2.5 L. Will give a dose of lasix 20 mg IV x 1. Continue PO morphine/prn ativan Continue gabapentin for anxiety in addition to clonazepam. Full code. Continue diuresis (PO). Continue PO steroids, scheduled + prn nebs. Finished antibiotics. Check sputum cx now that there is sputum production. (2) COPD exacerbation: Status: Acute Assessment and plan: As above - continue scheduled + prn nebs, prednisone. Finished abx. Refusing BiPAP. Full code - met with palliative care (3) Acute on chronic systolic CHF (congestive heart failure): Status: Acute Assessment and plan: May be contributing to the resp. failure. await echo - not available until next week. 2 years ago, in 02/2020, LVEF was 45-50% and his RVSP was 36.8 mmHg. Continue diuresis (give an extra dose of lasix 20 mg IV x 1 now). (4) Elevated d-dimer: Status: Acute Assessment and plan: CTA negative. Likely reflects inflammatory response. (5) DVT prophylaxis: Status: Acute Assessment and plan: Sc lovenox (6) Discharge planning issues: Status: Acute Assessment and plan: Full code Medsurg status. Will need SNF placement. Subjective Subjective Interval history since last seen: Mr Gay states that he has been coughing a little bit of yellow sputum. He requests throat lozenges. Exam Narrative Exam Narrative: General: Anxious middle-aged male, sitting up at the edge of the bed, looks slightly more dyspneic today, talking in 2-3 word phrases, on 2.5 L of O2 by NC HEENT: EOMI, MMM Heart: RRR, no m/r/g Lungs: Diminished breath sounds with faint rales at B bases Abdomen: soft, nontender, nondistended Extremities: no edema BLEs Objective Last Vital Signs Temp 35.9 C L 04/05/22 03:37 Pulse 92 H 06/12/22 12:06 Resp 16 04/05/22 12:06 BP 114/72 04/05/22 03:37 Pulse Ox 95 04/05/22 12:06 Laboratory Results - last 24 hr 04/05/22 04/05/22 04/05/22 05:00 05:00 05:00 Plt Count 163 Sodium 139 Potassium 3.3 L Chloride 97 L Carbon Dioxide 38.7 H Anion Gap 3.3 BUN 22 H Creatinine 1.0 Estimated GFR/1.73 m2 >= 60.00 Glucose 222 H Calcium 9.0 Magnesium 2.5 H Procalcitonin 0.1
[2022-04-05] MEDS: Furosemide 20 MG/2 ML VIAL IVP (16:08)
[2022-04-05] MEDS: Normal Saline Flush 10 ML SYR IVP (16:11)
[2022-04-05] MEDS: Pravastatin 20 MG TAB PO (20:28)
[2022-04-05] MEDS: QUEtiapine 300 MG TAB PO (22:26)
[2022-04-06] VITALS (14 sets, daily range): BP systolic 89–126; BP diastolic 54–82; PULSE 68–110; RESP 4–22; TEMP 36.1–37.1; O2SAT 89–95
--- NOTE | 2022-04-06 | DI.US_ITS ---
APPROVED REPORT EXAM: Comprehensive 2D, Doppler, and color-flow Echocardiogram Patient Location: In-Patient Room/Bed: 225 Etiologist: Bina Giordano RDCS (AE) Indications: CHF, COPD, ? Pulmonary HTN Other Information Study Quality: Adequate. Technically limited study due to lung disease. Conclusion Normal left ventricular wall thickness and chamber size. Estimated ejection fraction is 40 to 45%. There is global hypokinesis Normal right ventricular size and systolic function. Device lead noted in the right heart Both atria are normal in size There is no structural or hemodynamically significant valvular disease Right ventricular systolic pressure could not be estimated Compared to an echocardiogram from 2020, EF appears slightly lower Wall motion Left Ventricle The left ventricle is normal size. Left ventricular systolic function is mildly decreased. There is n ormal left ventricular wall thickness. There is no ventricular septal defect visualized. LVEF is 40-4 5%. Right Ventricle Right ventricle is grossly normal in size. Right ventricular systolic function is grossly normal. Dev ice lead is present in the right ventricle. Atria The left atrium size is normal. The right atrium size is normal. The interatrial septum is intact wit h no evidence for an atrial septal defect. Aortic Valve The aortic valve is normal in structure. There is no aortic valvular stenosis. No aortic regurgitatio n is present. Mitral Valve The mitral valve is normal in structure. No evidence of mitral valve stenosis. Trace mitral regurgita tion. Tricuspid Valve The tricuspid valve is normal in structure. There is no tricuspid valve stenosis. Trace tricuspid reg urgitation. Unable to assess PA pressure. Pulmonic Valve The pulmonary valve is normal in structure. There is no pulmonic valvular stenosis. There is no pulmo laurie valvular regurgitation. Great Vessels The aortic root is normal in size. Aortic arch is not well visualized. Aortic arch is not well visual ized. IVC is normal in size and collapses >50% with inspiration. Pericardium Trace to mild pericardial effusion. 2D Dimensions IVSD d PLAX 0.88 cm M: 0.6-1.2 LV Vol A2C d MOD 92.0 mL LVPW d PLAX 0.89 cm M: 0.6 - 1.2 LV Vol A4C d MOD 64.2 mL LVID d PLAX 4.26 cm M: 4.2 - 5.8 LA vol/ BSA A2C s A-L 11.9 mL/m2 LVDs 3.30 cm M: 2.5 - 4.0 LA Area A2C s MOD 9.89 cm2 Ao Root d 2.67 cm M: 3.1 - 3.7 LV EF A4C MOD 40.2 % RA Area A4C 11.15 cm2 LV EF A2C MOD 45.7 % RA Vol/ BSA A4C s A-L 15.1 mL/m2 LV EF Biplane MOD 43.6 % LV EF Teichholz 43.9 % SV 34.56 mL LVEF (Richards's) 43.64 % M: 52 - 72 SV Index 19.59 mL/m2 LV Volume 62.05 mL M: 62 - 150 LV Volume Index 35.25 mL/m2 M: 34 - 74 LV Vol Biplane MOD 79.2 mL FS 21.50 % M-Mode TAPSE 1.96 cm (M/F) >1.7 LV Diastology MV E' medial 0.104 (>0.07 m/s) E/A Ratio 0.5 LV E/e MED 3.35 (<14) MV E Vmax 0.35 (0.4-1.3 m/s) MV E' lateral 0.079 (>0.1 m/s) MV A Vmax 0.65 (0.4-1.3 m/s) LV E/e LAT 4.40 (<14) MV E/A Ratio 0.51 MV E/E' medial 3.40 MV E/E' lateral 4.44 Aortic Valve LVOT Area 3.25 cm2 AoV Area Vmax 4.58 cm2 LVOT Vmax 0.72 m/s AoV Area/ BSA (Vmax) 2.60 cm2/m2 LVOT Mean Haseeb. 0.51 m/s YUAN Mean Haseeb. 5.20 cm2 LVOT Peak Grad 2.1 mmHg YUAN Mean Haseeb. Index 2.95 cm2/m2 LVOT Mean Grad 1.2 mmHg LVOT VTI 0.100 m LVOT Diam s 2.00 cm AoV Vmax 0.51 m/s Velocity Ratio 1.41 AoV Mean Haseeb. 0.32 m/s AoV Peak Grad 1.1 mmHg LVOT SV 32.38 mL AoV Mean Grad 0.5 mmHg AoV VTI 0.095 m AoV Area VTI 3.40 cm2 AoV Area/ BSA (VTI) 1.93 cm/m2 Mitral Valve MV DT 197 (160-240 msec) MV PHT 57 msec MV Area PHT 3.85 cm2 Pulmonary Valve PV Vmax 1.09 (0.5-1.5 m/s) RVOT Peak Gr. 2.53 mmHg PV Peak Grad 4.8 mmHg RVOT Mean Gr. 1.60 mmHg PV Mean Grad 2.6 mmHg RVOT VTI 0.135 m PV VTI 0.172 m RVOT Vmax 0.80 m/s
[2022-04-06 07:00] LABS: Abs Immature Grans 0.17 10^3/uL (0.0-0.06); Absolute Basophil Count 0.04 10^3/uL (0.0-0.2); Absolute Eosinophil Count 0.04 10^3/uL (0.0-0.7); Absolute Lymphocyte Count 1.45 10^3/uL (1.2-3.4); Absolute Monocyte Count 0.87 10^3/uL (0.1-0.8); Absolute Neutrophil Count 6.23 10^3/uL (1.2-6.7); Basophils % 0.5; Eosinophils % 0.5; HCT 47.4 % (40.0-50.0); HGB 16.1 g/dL (13.5-17.5); Immature Grans % 1.9; Lymphocytes % 16.5; MCH 31.2 pg (27.0-33.0); MCV 92 fL (80-95); MPV 10.9 fL (8.0-11.0); Monocytes % 9.9; Neutrophils % 70.7; Platelet Count 169 10^3/uL (130-400); RBC 5.16 10^6/uL (4.36-5.78); RDW 11.9 % (11.8-14.1); RDW-SD 40.2 fL
[2022-04-06 07:38] LABS: Anion Gap 4.5 mmol/L (3-11); BUN 20 mg/dL (7-18); CO2 36.5 mmol/L (21.0-32.0); CREATININE 0.8 mg/dL (0.70-1.30); Calcium 9.3 mg/dL (8.5-10.1); Chloride 98 mmol/L (98-107); Glucose 107 mg/dL (74-106); Magnesium 2.3 mg/dL (1.8-2.4); Potassium 3.7 mmol/L (3.5-5.1); Sodium 139 mmol/L (136-145)
[2022-04-06] MEDS: Nicotine 21 MG/24 HR PATCH TD (07:47)
[2022-04-06] MEDS: Enoxaparin 40 MG/0.4 ML SYR SC (07:47)
[2022-04-06] MEDS: Montelukast 10 MG TAB PO (07:48)
[2022-04-06] MEDS: Polyethylene Glycol 3350 17 GM PACKET PO (07:48)
[2022-04-06] MEDS: Docusate Sodium 100 MG CAP PO ×2 (07:48→19:42)
[2022-04-06] MEDS: buPROPion-XL 150 MG TABCR 300 MG PO (07:48)
[2022-04-06] MEDS: clonazePAM 1 MG TAB PO ×2 (07:48→19:42)
[2022-04-06] MEDS: Gabapentin 100 MG CAP PO ×3 (07:48→19:42)
[2022-04-06] MEDS: Tamsulosin 0.4 MG CAPCR PO (07:48)
[2022-04-06] MEDS: Acetaminophen 325 MG TAB PO (07:49)
[2022-04-06] MEDS: Furosemide 20 MG TAB PO (07:49)
[2022-04-06] MEDS: Pantoprazole 40 MG TABCR PO (07:49)
[2022-04-06] MEDS: predniSONE 20 MG TAB 40 MG PO (07:50)
[2022-04-06] MEDS: Budesonide/Formoterol 80/4.5 6.9 GM 60 PUFF INH IH ×2 (07:53→19:41)
[2022-04-06] MEDS: Tiotropium Bromide-Respimat 10 PUFF INH 2 PUFF IH (07:54)
[2022-04-06] MEDS: Albuterol/Ipratropium 3 ML UPD VIAL UPD ×4 (08:30→19:42)
[2022-04-06] MEDS: LORazepam 0.5 MG TAB PO (11:46)
[2022-04-06] MEDS: Empaglifozin 10 MG TAB PO (11:59)
--- NOTE | 2022-04-06 13:50 | W.PALLCONSUL ---
Date of service: 04/06/22 Time of Service: 13:00 History of Present Illness Narrative: Mr. Thomas is a 56 y/o M currently inpatient at [facility] 2/2 acute respiratory failure r/t COPD and PNA: PMHx sig for COPD, depression, anxiety, PTSD; purpose of consult to review GOC, code status, specifically intubation; Hospital course: presented to ED 03/28/22 w/worsening dyspnea, found to have PNA, transferred inpatient, currently on Levaquin; improved to consider discharge when pt went into respiratory acidosis on 03/31/22, pulmonary following transferred to ICU, BiPAP started, pt not tolerating BiPAP and refusing, weaned down from HFNC to NC on 2.5L today; continues morphine for air hunger; psych consult 04/01 d/t uncontrolled anxiety, pt has capacity; pt has been accepted to H/R once medically cleared Patient reports breathing continues to be controlled with morphine, without it I would not be here, feels he is up and walking more comfortably with less dyspnea, reports appetite has been up and down based on breathing, is getting hungry at nighttime, aware of weight lost since fall decline; waiting for physical therapy to start today; reports continues to feel weak due to inactivity and shortness of breath, denies acute changes in breathing; denies further complaints, including pain, upset stomach, agitation continues to agree to rehab prior to discharge home; Remains full code, would want trial of anything to sustain life, with life continuing to mean awake and ability to communicate. reports healthcare agent as Toña Orosco, his counselor, cell #[phone], she is not aware of HCA status, agreeable to provider calling Staff reports morphine continues to work with air hunger, requesting every 3 hours. SOB with minimal exertion; last dose of Ativan 04/03; echo occurred this morning, no results yet Assessment and Plan Assessment and plan (1) Palliative care patient: Status: Acute Assessment and plan: continue to follow thru inpatient and to SNF upon discharge HCA identified as Toña Orosco, counselor, [phone], attempted to call, DNA, left VM; paperwork completed (2) Full code status: Status: Acute Assessment and plan: remains FULL CODE today; would want trial of any intervention to sustain/resuscitate life, life meaning being awake and coherent (3) Acute on chronic respiratory failure with hypoxia and hypercapnia: Status: Acute Assessment and plan: Refuses bipap, doing well on regular NC today, 2.5 L. Will give a dose of lasix 20 mg IV x 1. Continue PO morphine/prn ativan Continue gabapentin for anxiety in addition to clonazepam. Full code. Continue diuresis (PO). Continue PO steroids, scheduled + prn nebs. Finished antibiotics. Check sputum cx now that there is sputum production. (4) COPD (chronic obstructive pulmonary disease): Status: Chronic (5) Ambulatory dysfunction: Status: Acute Assessment and plan: to start PT today (6) Generalized weakness: Status: Acute Assessment and plan: PT w/plans for discharge to SNF for ongoing rehab (7) Anxiety with depression: Assessment and plan: controlled Review of Systems Narrative: [facility] All Active Problems Palliative care patient (Acute) Full code status (Acute) Discharge planning issues (Acute) DVT prophylaxis (Acute) Elevated d-dimer (Acute) Acute on chronic respiratory failure with hypoxia and hypercapnia (Acute) Pneumonia (Acute) COPD exacerbation (Acute) COPD (chronic obstructive pulmonary disease) (Chronic) Altered mental status (Acute) Ambulatory dysfunction (Acute) Adult failure to thrive (Acute) Bullae (Acute) Cigarette smoker (Acute) Cognitive impairment (Chronic) Ambulatory dysfunction (Chronic) Current smoker (Acute) Lung bullae (Acute) Acute exacerbation of chronic obstructive pulmonary disease (Acute) Acute on chronic systolic CHF (congestive heart failure) (Acute) Musculoskeletal chest pain (Chronic) Lethargy (Acute) BPH (benign prostatic hyperplasia) (Chronic) Lung disease (Acute) Arthritis (Acute) COPD exacerbation (Acute) Noncompliance with medication regimen (Acute) Depression (Chronic) Generalized weakness (Acute) UTI (urinary tract infection) (Acute) Polysubstance abuse (Chronic) Confusion (Acute) Auditory hallucination (Chronic) Orthostatic hypotension (Acute) PTSD (post-traumatic stress disorder) (Chronic) Discharge planning issues (Acute) Ambulatory dysfunction (Acute) Dyspnea (Acute) COPD (chronic obstructive pulmonary disease) (Chronic) DVT prophylaxis (Acute) Left rib fracture (Acute) Rib fracture (Acute) Syncope (Chronic) Severe chronic obstructive pulmonary disease (Chronic) Biventricular implantable cardioverter-defibrillator (ICD) in situ (Chronic) Mode:DDD, Low rate 60bpm, Atrial lead: medtronic [id number], SN: [id number] 09/27/14; RV lead Medtronic [id number] SN: [id number] 09/27/14; LV lead Medtronic [id number], SN; [id number] 09/27/14 (updated 03/11/20) Systolic and diastolic CHF, chronic (Chronic) LBBB (left bundle branch block) (Chronic) Nonischemic dilated cardiomyopathy (Chronic) Medical History Acquired deformity of left hand Agoraphobia Anxiety Anxiety with depression Cardiomyopathy Chest pain CHF (congestive heart failure) Chronic pain syndrome Constipation Cyst Diarrhea Dizziness DVT prophylaxis Erectile dysfunction Fatigue Hallucination Hand paresthesia Heart disease History of suicidal ideation History of tobacco abuse Hyperlipidemia Impacted ear wax Metacarpophalangeal joint pain Musculoskeletal chest pain Pacemaker Pain in right hip Panic anxiety syndrome Skin lesion Tobacco use Surgical History Status post biventricular pacemaker Family History Mother , 2008 COPD (chronic obstructive pulmonary disease) Social History Smoking/Tobacco Use Status: Former Tobacco Use Quit Date: 03/08/22 Pack-years: 120 Smoking risk assessment performed?: Yes Alcohol Intake: former Drug use: Never Substance use type: does not use Household members: none Pets and animals: No What type of physical activity do you participate in: none Seatbelt use: always Do you feel safe at home: Yes Do you feel safe in your relationship?: Yes Additional Social history: lives alone Exam Narrative Exam Narrative: pt lying in dart room, resting, remains supine w/HOB elevated throughout visit pt cooperative, agrees to visit; engages in conversation throughout, makes appriopriate Const General: cooperative, no acute distress and ill appearing Orientation: alert, awake and oriented x3 HENMT Head: normal to inspection and atraumatic Ears: hearing grossly normal bilaterally Other: HFNC in place Resp Effort & Inspection: able to speak in complete sentences, no audible wheezes and cough Quality of cough: wet (intermittent) Skin General skin exam: no rashes or lesions noted Extrem General: no pedal edema Psych Speech and Movement: speech clear Mood: congruent mood Affect: normal affect Attitude: cooperative Thought Process: impoverished Thought Content: normal Insight: fair Judgment: fair Results Last Vital Signs Temp 98.8 F 04/06/22 11:45 Pulse 110 H 04/06/22 11:45 Resp 16 04/06/22 11:52 BP 102/64 04/06/22 11:45 Pulse Ox 93 04/06/22 11:52 Labs Result diagrams: 04/06/22 06:00 04/06/22 06:00 Labs: Laboratory Results - last 24 hr 04/06/22 04/06/22 06:00 06:00 WBC 8.80 RBC 5.16 Hgb 16.1 Hct 47.4 MCV 92 MCH 31.2 MCHC 34.0 RDW 11.9 Plt Count 169 MPV 10.9 Immature Gran % 1.9 Neutrophils % 70.7 Lymphocytes % 16.5 Monocytes % 9.9 Eosinophils % 0.5 Basophils % 0.5 Nucleated RBC % 0.0 Absolute Neutrophils 6.23 Absolute Lymphocytes 1.45 Absolute Monocytes 0.87 H Absolute Eosinophils 0.04 Absolute Basophils 0.04 Sodium 139 Potassium 3.7 Chloride 98 Carbon Dioxide 36.5 H Anion Gap 4.5 BUN 20 H Creatinine 0.8 Estimated GFR/1.73 m2 >= 60.00 Glucose 107 H Calcium 9.3 Magnesium 2.3
--- NOTE | 2022-04-06 16:09 | PT.INNT ---
Date of service: 04/06/22 Time of Service: 16:09 PT Notes Visit Reasons: Pneumonia 04/06/2022 Patient on hold, per nursing, then not available for PT session, then refused, wanting to wait until after lunch in a.m. Patient not available in p.m. x2, receiving breathing treatment x1, Covid testing for placement x1. Will attempt to resume PT services tomorrow morning.
[2022-04-06 16:15] LABS: Source Nasal/Nares
--- NOTE | 2022-04-06 16:41 | W.PM.PROGNOT ---
Date of Service Date of service: 04/06/22 Time of Service: 16:41 Assessment and Plan Assessment and plan (1) Acute on chronic respiratory failure with hypoxia and hypercapnia: Status: Acute Assessment and plan: Presumably due to COPD exacerbation as well as due to mild fluid overload. I suspect pulmonary hypertension might be a component as well. Negative fluid balance. Refuses bipap, doing well on regular NC today, 2.5 L; his home supplemental O2 needs. S/P one dose of IV lasix 20mg. Now on 20mg po daily. Continue PO morphine/prn ativan Continue gabapentin for anxiety in addition to clonazepam. Full code. Palliative reviewed his code status with him. Continue diuresis (PO). Continue PO steroids, scheduled + prn nebs. Finished antibiotics. Check sputum cx now that there is sputum production. No sputum expectorated as of yet. (2) COPD exacerbation: Status: Acute Assessment and plan: As above - continue scheduled + prn nebs, prednisone. Finished abx. Refusing BiPAP. Full code - met with palliative care (3) Acute on chronic systolic CHF (congestive heart failure): Status: Acute Assessment and plan: May be contributing to the resp. failure. Echo -EF of 40-45%. RVSP was unable to be calculated. 2 years ago, in 02/2020, LVEF was 45-50% and his RVSP was 36.8 mmHg. Continue diuresis Low Na. (4) Elevated d-dimer: Status: Acute Assessment and plan: CTA negative. Likely reflects inflammatory response. (5) DVT prophylaxis: Status: Acute Assessment and plan: Sc lovenox (6) Discharge planning issues: Status: Acute Assessment and plan: Full code Medsurg status. Will need SNF placement. He is agreeable to SNF. [facility] with plans to transfer tomorrow. Subjective Subjective Patient reports: no new complaints, feels better and afebrile; denies vomiting or shortness of breath Exam Narrative Exam Narrative: General: sitting up at the edge of the bed with nebulizer treatment. Pleasant and interative. HEENT: EOMI, MMM. NC in place. Heart: RRR, no murmer Lungs: Diminished breath sounds throughout. Occasional exp wheeze. Abdomen: soft, nontender, nondistended Extremities: no edema BLEs Objective Last Vital Signs Temp 36.3 C L 04/06/22 15:35 Pulse 101 H 04/06/22 15:42 Resp 22 04/06/22 15:35 BP 102/68 04/06/22 15:35 Pulse Ox 93 04/06/22 15:35 Laboratory Results - last 24 hr 04/06/22 04/06/22 04/06/22 06:00 06:00 16:05 WBC 8.80 RBC 5.16 Hgb 16.1 Hct 47.4 MCV 92 MCH 31.2 MCHC 34.0 RDW 11.9 Plt Count 169 MPV 10.9 Immature Gran % 1.9 Neutrophils % 70.7 Lymphocytes % 16.5 Monocytes % 9.9 Eosinophils % 0.5 Basophils % 0.5 Nucleated RBC % 0.0 Absolute Neutrophils 6.23 Absolute Lymphocytes 1.45 Absolute Monocytes 0.87 H Absolute Eosinophils 0.04 Absolute Basophils 0.04 Sodium 139 Potassium 3.7 Chloride 98 Carbon Dioxide 36.5 H Anion Gap 4.5 BUN 20 H Creatinine 0.8 Estimated GFR/1.73 m2 >= 60.00 Glucose 107 H Calcium 9.3 Magnesium 2.3 COVID-19 Source Nasal/Nares
[2022-04-06 17:09] LABS: COVID-19 PCR Negative (Negative)
--- NOTE | 2022-04-06 19:34 | PDOC.CMPRO ---
- If Service Date Differs Date of service: 04/06/22 Time of Service: 19:34 Care Management Progress Note S/O: William was lying in bed when CM met with him. Per report, he had an echo today, which stated that his LVEF is 40-45%. Per MD, he will likely be ready for discharge as soon as tomorrow, if he continues to improve. CM discussed this and he stated that he doesn't feel ready to return home, and he is not sure that he wants to go to rehab. CM explained that once he is medically stable he will be discharged, but going to rehab will give him an extended period of time to heal, while getting stronger and being closely monitored. He stated that he would be willing to discuss this further tomorrow. CM will continue to follow. A: William is a 56 year old male admitted to [facility] on 03/28/22 with pneumonia. P: William will likely return to the care bed vs return home when medically cleared by provider. He may benefit from services upon discharge. He will follow up with his PCP, [facility], and discharge plan of care as instructed. He will be driven home via [facility] vs. private vehicle with a friend. CM will continue to follow.
[2022-04-06] MEDS: Pravastatin 20 MG TAB PO (19:42)
[2022-04-06] MEDS: QUEtiapine 300 MG TAB PO (23:50)
[2022-04-07] VITALS (12 sets, daily range): BP systolic 104–130; BP diastolic 66–83; PULSE 80–128; RESP 2–24; TEMP 36.4–37; O2SAT 92–98
[2022-04-07] MEDS: Budesonide/Formoterol 80/4.5 6.9 GM 60 PUFF INH IH ×2 (07:41→20:20)
[2022-04-07] MEDS: Albuterol/Ipratropium 3 ML UPD VIAL UPD ×4 (07:41→20:19)
[2022-04-07] MEDS: Tiotropium Bromide-Respimat 10 PUFF INH 2 PUFF IH (07:41)
[2022-04-07] MEDS: Enoxaparin 40 MG/0.4 ML SYR SC (07:50)
[2022-04-07] MEDS: Empaglifozin 10 MG TAB PO (07:51)
[2022-04-07] MEDS: Polyethylene Glycol 3350 17 GM PACKET PO ×2 (07:51→20:19)
[2022-04-07] MEDS: clonazePAM 1 MG TAB PO ×2 (07:51→20:19)
[2022-04-07] MEDS: Gabapentin 100 MG CAP PO ×3 (07:51→20:19)
[2022-04-07] MEDS: Montelukast 10 MG TAB PO (07:51)
[2022-04-07] MEDS: Pantoprazole 40 MG TABCR PO (07:51)
[2022-04-07] MEDS: predniSONE 20 MG TAB 40 MG PO (07:51)
[2022-04-07] MEDS: buPROPion-XL 150 MG TABCR 300 MG PO (07:51)
[2022-04-07] MEDS: Tamsulosin 0.4 MG CAPCR PO (07:51)
[2022-04-07] MEDS: Nicotine 21 MG/24 HR PATCH TD (07:51)
[2022-04-07] MEDS: Acetaminophen 325 MG TAB PO (07:52)
[2022-04-07] MEDS: Docusate Sodium 100 MG CAP PO ×2 (07:52→20:19)
[2022-04-07] MEDS: Furosemide 20 MG TAB PO (07:52)
[2022-04-07] MEDS: LORazepam 0.5 MG TAB PO (12:38)
[2022-04-07] MEDS: Albuterol 2.5 MG/3 ML INH SOLN VIAL UPD (13:07)
[2022-04-07] MEDS: Normal Saline Flush 10 ML SYR IVP (13:20)
[2022-04-07] MEDS: LORazepam 2 MG/ML VIAL (13:20)
--- NOTE | 2022-04-07 18:52 | PDOC.CMPRO ---
- If Service Date Differs Date of service: 04/07/22 Time of Service: 18:52 Care Management Progress Note S/O: William was sitting up on the edge of his bed when CM met with him. He stated that he does not feel ready for discharge today. Per provider, he is medically cleared to be discharge to SNF, where he will continue to receive oversight, and will be able to work with PT daily to gain strength and independence. He reported that he is unsure that he needs rehab, and feels that he should return home. CM contacted his [employer] mental health case manager, Joy, who visited later and discussed the benefits of rehab with him as well. CM contacted admissions at [facility], who offered to visit with William as well, to answer any questions or concerns he may have about rehab or the facility, which William is agreeable to. Staff from [facility] will visit with William tomorrow morning, and if he is agreeable and remains medically stable, he will transfer to their facility tomorrow. CM will continue to follow. A: William is a 56 year old male admitted to [facility] on 03/28/22 with pneumonia. P: William will likely go to SNF vs return home when medically cleared by provider. He may benefit from services upon discharge. He will follow up with his PCP, [facility], and discharge plan of care as instructed. He will be driven home via [facility] vs. private vehicle with a friend. CM will continue to follow.
[2022-04-07] MEDS: Pravastatin 20 MG TAB PO (20:18)
--- NOTE | 2022-04-07 20:49 | PGE_ITS ---
Date of Service Date of service: 04/07/22 Time of Service: 20:49 Assessment and Plan Assessment and plan (1) Acute on chronic respiratory failure with hypoxia and hypercapnia: Status: Acute Assessment and plan: Presumably due to COPD exacerbation as well as due to mild fluid overload. Pulmonary hypertension might be a component as well. Negative fluid balance. Refuses bipap, doing well on regular NC today, 2.5 L; his home supplemental O2 needs. S/P one dose of IV lasix 20mg. Now on 20mg po daily. Continue PO morphine/prn ativan Continue gabapentin for anxiety in addition to clonazepam. Full code. Palliative reviewed his code status with him. Continue diuresis (PO). Continue PO steroids, scheduled + prn nebs. Finished antibiotics. Check sputum cx now that there is sputum production. No sputum expectorated as of yet. (2) COPD exacerbation: Status: Acute Assessment and plan: As above - continue scheduled + prn nebs, prednisone. Finished abx. Refusing BiPAP. Full code - met with palliative care (3) Acute on chronic systolic CHF (congestive heart failure): Status: Acute Assessment and plan: May be contributing to the resp. failure. Echo -EF of 40-45%. RVSP was unable to be calculated. 2 years ago, in 02/2020, LVEF was 45-50% and his RVSP was 36.8 mmHg. Continue diuresis Low Na. (4) Elevated d-dimer: Status: Acute Assessment and plan: CTA negative. Likely reflects inflammatory response. (5) DVT prophylaxis: Status: Acute Assessment and plan: Sc lovenox (6) Discharge planning issues: Status: Acute Assessment and plan: Full code Medsurg status. He was previously agreeable to SNF placement but is no longer. He states multiple times that he will not go to a rehab facility / SNF Care managment has arranged for operations support representative from [facility] and his child support case officer to come and speak with him tomorrow regarding disposition. [facility] accepted [facility]. Subjective Subjective Interval history since last seen: He has been improving from a resp stand-point. States he is unsteady on his feet. After discussing discharging today to SNF he flatly refused and stated he needed to stay and would only go home and not to a SNF. He then became anxious and tachypneic. Ativan given. Exam Narrative Exam Narrative: General: sitting up at the edge of the bed. Discheveled. Anxious/irritated appearing. HEENT: EOMI, MMM. NC in place. Heart: RRR, no murmer Lungs: Diminished breath sounds throughout. Occasional exp wheeze. Abdomen: soft, nontender, nondistended Extremities: no edema BLEs Objective Last Vital Signs Temp 36.7 C 04/07/22 20:11 Pulse 105 H 04/07/22 20:11 Resp 22 04/07/22 20:11 BP 118/83 04/07/22 20:11 Pulse Ox 93 04/07/22 20:11
[2022-04-07] MEDS: QUEtiapine 300 MG TAB PO (22:50)
[2022-04-08] VITALS (8 sets, daily range): BP systolic 96–115; BP diastolic 64–75; PULSE 89–117; RESP 2–21; TEMP 36.7–36.8; O2SAT 93–96
[2022-04-08] MEDS: LORazepam 0.5 MG TAB PO ×3 (00:29→13:09)
[2022-04-08] MEDS: Nicotine 21 MG/24 HR PATCH TD (07:53)
[2022-04-08] MEDS: Polyethylene Glycol 3350 17 GM PACKET PO (07:54)
[2022-04-08] MEDS: Enoxaparin 40 MG/0.4 ML SYR SC (07:54)
[2022-04-08] MEDS: buPROPion-XL 150 MG TABCR 300 MG PO (07:54)
[2022-04-08] MEDS: clonazePAM 1 MG TAB PO (07:54)
[2022-04-08] MEDS: Docusate Sodium 100 MG CAP PO (07:55)
[2022-04-08] MEDS: Acetaminophen 325 MG TAB PO (07:55)
[2022-04-08] MEDS: Tamsulosin 0.4 MG CAPCR PO (07:55)
[2022-04-08] MEDS: Montelukast 10 MG TAB PO (07:55)
[2022-04-08] MEDS: Gabapentin 100 MG CAP PO ×2 (07:56→13:09)
[2022-04-08] MEDS: Empaglifozin 10 MG TAB PO (07:56)
[2022-04-08] MEDS: Pantoprazole 40 MG TABCR PO (07:56)
[2022-04-08] MEDS: Furosemide 20 MG TAB PO (07:56)
[2022-04-08] MEDS: predniSONE 20 MG TAB 40 MG PO (07:56)
[2022-04-08] MEDS: Tiotropium Bromide-Respimat 10 PUFF INH 2 PUFF IH (09:10)
[2022-04-08] MEDS: Budesonide/Formoterol 80/4.5 6.9 GM 60 PUFF INH IH (09:11)
[2022-04-08] MEDS: Albuterol/Ipratropium 3 ML UPD VIAL UPD ×2 (09:43→12:44)
--- NOTE | 2022-04-08 12:13 | INDS_ITS ---
PT Notes Visit Reasons: Pneumonia TIENT NAME: William Gay UNIT #:? ? [id number] ADMITTING PROVIDER:CARSON BASURTO DPT ACCOUNT #: ? [id number] PRIMARY CARE PROVIDER: ? Lorrie Crespo DATE OF ADMIT? :?03/28/22 : ? 1965 PT Notes Visit Reasons:?Pneumonia Inpatient Physical discharge summary Date: 04/08/2022 Referring Doctor: Lore Lynne MD PT Orders: PT CONSULT: Limited ability Precautions: Fall.? Standard.? Activity as tolerated.? Fall, standard Patient Profile/Admitting Diagnosis:? Patient is a 56-year-old male with acute on chronic respiratory failure with hypoxia and hypercapnia, COPD exacerbation, acute on chronic systolic congestive heart failure with LVEF of 45-50%, and elevated D-dimer referred for physical therapy for mobility assessment and discharge planning recommendations. PMHX: All Active Problems?(Updated 02/18/22 @ 23:02 by Lore Lynne MD) Discharge planning issues (Acute) DVT prophylaxis (Acute) Musculoskeletal chest pain (Acute) Constipation (Acute) Urinary retention (Acute) Acute exacerbation of chronic obstructive pulmonary disease (Acute) COPD (chronic obstructive pulmonary disease) (Chronic) Hypoxia (Acute) Altered mental status (Acute) Ambulatory dysfunction (Acute) Adult failure to thrive (Acute) Bullae (Acute) Chronic respiratory failure with hypoxia (Acute) Cigarette smoker (Acute) Cognitive impairment (Chronic) Ambulatory dysfunction (Chronic) DVT prophylaxis (Acute) Current smoker (Acute) Lung bullae (Acute) Acute exacerbation of chronic obstructive pulmonary disease (Acute) Acute on chronic systolic CHF (congestive heart failure) (Acute) Musculoskeletal chest pain (Chronic) Lethargy (Acute) BPH (benign prostatic hyperplasia) (Chronic) Lung disease (Acute) Arthritis (Acute) COPD exacerbation (Acute) Noncompliance with medication regimen (Acute) Depression (Chronic) Generalized weakness (Acute) UTI (urinary tract infection) (Acute) Discharge planning issues (Acute) Polysubstance abuse (Chronic) Confusion (Acute) Auditory hallucination (Acute) Orthostatic hypotension (Acute) PTSD (post-traumatic stress disorder) (Chronic) Discharge planning issues (Acute) Ambulatory dysfunction (Acute) Dyspnea (Acute) COPD (chronic obstructive pulmonary disease) (Chronic) DVT prophylaxis (Acute) Left rib fracture (Acute) Rib fracture (Acute) Syncope (Chronic) Severe chronic obstructive pulmonary disease (Chronic) Biventricular implantable cardioverter-defibrillator (ICD) in situ (Chronic) Mode:DDD, Low rate 60bpm, Atrial lead: medtronic 5076, SN: [id number] 09/27/14; RV lead Medtronic 6935M SN: [id number] 09/27/14; LV lead Medtronic 4396, SN; [id number] 09/27/14 (updated 03/11/20)Systolic and diastolic CHF, chronic (Chronic) LBBB (left bundle branch block) (Chronic) Nonischemic dilated cardiomyopathy (Chronic) Medical History Acquired deformity of left hand Agoraphobia Anxiety Anxiety with depression Arthritis Biventricular implantable cardioverter-defibrillator (ICD) in situ Mode:DDD, Low rate 60bpm, Atrial lead: medtronic 5076, SN: [id number] 09/27/14; RV lead Medtronic 6935M SN: [id number] 09/27/14; LV lead Medtronic 4396, SN; [id number] 09/27/14 (updated 03/11/20)BPH (benign prostatic hyperplasia) Cardiomyopathy Chest pain CHF (congestive heart failure) Chronic pain syndrome Cognitive impairment Cyst Depression Diabetes Diarrhea Dizziness Erectile dysfunction Fatigue Hallucination Hand paresthesia Heart disease History of alcohol abuse History of suicidal ideation History of tobacco abuse Hyperlipidemia Impacted ear wax LBBB (left bundle branch block) Lung disease Metacarpophalangeal joint pain Nonischemic dilated cardiomyopathy Pacemaker Pain in right hip Panic anxiety syndrome PTSD (post-traumatic stress disorder) Severe chronic obstructive pulmonary disease Skin lesion Systolic and diastolic CHF, chronic Tobacco use Surgical History? Status post biventricular pacemaker Social History/Home Situation: Patient lives alone in a two-level home with no steps to enter.? He receives assistance from[employer] multiple times per day.? He is disabled and no longer working.? States that he still has his walker that was given to him previously. No longer works.? On disability. Equipment Owned/DME: FWW ROM: Right Upper Extremity: ? Shoulder Flexion WFL. Shoulder abduction WFL. Elbow flexion WFL. Wrist flexion WFL. Functional opening and closing of hand WFL. Left Upper Extremity:? Shoulder Flexion WFL. Shoulder abduction WFL. Elbow flexion WFL. Wrist flexion WFL. Functional opening and closing of hand WFL. Right Lower Extremity: Hip flexion WFL. Hip abduction WFL. Knee flexion WFL. Ankle dorsiflexion WFL. Ankle plantarflexion WFL. Left Lower Extremity: Hip flexion WFL. Hip abduction WFL. Knee flexion WFL. Ankle dorsiflexion WFL. Ankle plantarflexion WFL. Strength: Right Upper Extremity: Shoulder flexors 4-/5. Shoulder abductors 4-/5. Elbow flexors 5/5. Elbow extensors 4-/5. [employer] strong. Left Upper Extremity: Shoulder flexors 4-/5. Shoulder abductors 4-/5. Elbow flexors 5/5. Elbow extensors 4-/5. [employer] strong. Right Lower Extremity: Hip flexors 4-/5. Hip abductors 4-/5. Knee flexors 5/5. Knee extensors 4-/5. Ankle dorsiflexors 4-/5. Ankle plantarflexors 4/5. Left Lower Extremity: Hip flexors 4-/5. Hip abductors 4-/5. Knee flexors 5/5. Knee extensors 4-/5. Ankle dorsiflexors 4-/5. Ankle plantarflexors 4/5. Bed Mobility/Transfers: Independent with with all bed mobility activities Gait:? Ambulates independently with standby supervision for approximately 40 feet with 3 rest periods due to shortness of breath Balance:? Static Sitting: Normal Dynamic Sitting: Normal Static Standing: Fair Dynamic Standing: Fair Special Tests: Mobility Limitations Standardized Measure [facility] 6 clicks Basic Mobility Inpatient Short Form: Raw Score: 15 ? CMS Score: 58% impairment ? ? ? Informed Consent/Education:? Patient instructed in purpose of PT consult and plan of care. Assessment:? Patient is a 56-year-old male with acute on chronic respiratory failure with hypoxia and hypercapnia, COPD exacerbation, acute on chronic systolic congestive heart failure with LVEF of 45-50%, and elevated D-dimer referred for physical therapy for mobility assessment and discharge planning recommendations.? Patient presents with clinical signs and symptoms consistent with diminished functional mobility related to acute medical issues, as demonstrated by the following impairment level findings: Patient refused physical therapy treatment 3 days in a row, therefore discharged from our service. His attending physician request additional rehabilitation, a new referral form is recommended. Goals: Goals were not obtained Plan: DC from PT services Patient underwent a total of 2 PT sessions including the initial evaluation. This document serves as a summary care statement, no PT services were provided on this day ? Transcribed Date:? 04/02/22 ? ? Transcribed Time:? 1315 By:? P.ABEJ This is privileged, confidential information, intended only for the provider named. Any use or distribution by any person other than this provider is strictly prohibited. If you receive this report in error, please notify us immediately at [phone] and return the original? report? to us at the address above. Thank you.
--- NOTE | 2022-04-08 13:10 | W.PM.DS.N ---
DS: Diagnosis Discharge Diagnosis (1) Acute on chronic respiratory failure with hypoxia and hypercapnia: Status: Resolved (2) COPD exacerbation: Status: Resolved (3) Acute on chronic systolic CHF (congestive heart failure): Status: Resolved (4) Elevated d-dimer: (5) DVT prophylaxis: Status: Deleted (6) Discharge planning issues: Status: Deleted Discharge Plan Disposition Patient Disposition: [facility] W/HOME HEALTH SERVICE Condition: Improving Discharge Details Reason For Visit: Pneumonia, COPD exacerbation Admit Date/Time: 03/28/22 13:24 Admit Provider: Sp Jara Attending Provider: Sp Jara Primary Care Provider: Lorrie Crespo Hospital Course Hospital Course: This is a 56 yo male that presented with 2?days of increasing shortness of breath.? work up in ED shows hypoxia with O2 saturations in the 80's, and new infiltrates on xray concerning for pneumonia.?He was given updrafts, IV steroids, and broad spectrum antibiotics in the ED (levaquin and vancomycin).? symptoms improved and hospitalist requested admission. ? Levaquin was continued. Prednisone initiated. Dr Yanez, pulmonary/critical care physician consulted. He did have a period where he required BiPAP to rest his respiratory efforts and to prevent intubation. Anxiety was also part of the etiology of his respiratory distress. PRN morphine and ativan utilized. Consults made for psychiatry and palliative care. Psychiatry suggested adding low dose gabapentin and this was initiated. He improved on a respiratory standpoint and returned to his chronic level of supplemental O2 needs; 2.5L NC He remained intermittently anxious. He refused discharge to SNF and was subsequently discharged to home with home health nursing, PT/OT. He will not continue using concentrated liquid morphine for respiratory distress. He will continue with his usual BID dosing of clonazepam. A prednisone taper prescribed. Jardiance initiated for his chronic CHF. PCP follow up in 5-7 days Home Meds and New Rx's Prescriptions: New polyethylene glycol 3350 17 gram Powder In Packet 17 g PO BID Qty: 0 0RF tamsulosin 0.4 mg Capsule 0.4 mg PO DAILY Qty: 0 0RF Jardiance 10 mg Tablet 10 mg PO QAM Qty: 30 0RF gabapentin 100 mg Capsule 100 mg PO TID Qty: 90 0RF prednisone 10 mg tablet See Rx Instructions .ROUTE .COMPLEX Qty: 13 0RF Taper: Prednisone 10mg taper 30 mg Daily for 2 Days and 0 Hour 20 mg Daily for 2 Days and 0 Hour 10 mg Daily for 2 Days and 0 Hour 5 mg Daily for 2 Days and 0 Hour Rx Instructions: See Taper orally Continued pravastatin 20 mg tablet 20 mg PO QHS Qty: 10 0RF pantoprazole 40 mg Tablet,Delayed Release (Dr/Ec) 40 mg PO DAILY@0730 Qty: 30 0RF clonazepam 1 mg tablet 1 mg PO BID Label Comments: Take 1 tablet by mouth twice a day montelukast 10 mg Tablet 10 mg PO DAILY acetaminophen [Tylenol] 325 mg Capsule 325 mg PO DAILY quetiapine 200 mg Tablet 300 mg PO HS Rx Instructions: 1 1/2 Tablet at bedtime budesonide-formoterol 80-4.5 mcg/actuation Hfa Aerosol Inhaler 2 puff INHALATION BID tiotropium bromide 18 mcg Capsule, W/Inhalation Device 1 cap INHALATION DAILY Rx Instructions: puncture 1 cap using device; one dose = 2 inhalations nicotine 21 mg/24 hr Patch 24 Hour 21 mg TRANSDERMAL DAILY Rx Instructions: PUT ON PATCH IN AM, REMOVE AT NIGHT acetaminophen 325 mg Tablet 650 mg PO Q4H PRN PRN guaifenesin 100 mg/5 mL Liquid 200 mg PO Q4H PRN PRN calcium carbonate [Tums] 200 mg calcium (500 mg) Tablet,Chewable 200 mg PO Q2H WHILE AWAKE PRN diphenhydramine HCl 25 mg Tablet 25 mg PO Q6H WHILE AWAKE PRN bacitracin 500 unit/gram Packet 1 applic TOPICAL BID PRN PRN bupropion HCl 300 mg tablet extended release 24 hr 300 mg PO DAILY Label Comments: Take 1 tablet by mouth once a day tamsulosin 0.4 mg capsule 0.4 mg PO HS Label Comments: 1 tab daily docusate sodium 100 mg capsule 100 mg PO BID PRN PRN Label Comments: 1 daily albuterol sulfate [ProAir HFA] 90 mcg/actuation Hfa Aerosol Inhaler 2 puff INHALATION Q4H WHILE AWAKE PRN Rx Instructions: Q4-6H PRN ipratropium-albuterol 0.5 mg-3 mg(2.5 mg base)/3 mL solution for nebulization 3 ml INHALATION Q6H PRN PRN Label Comments: USE 1 AMPULE VIA NEBULIZER EVERY 6 HOURS NEEDED nitroglycerin 0.3 mg Tablet, Sublingual 0.3 mg SUBLINGUAL Q5-15M PRN Rx Instructions: do not exceed 3 doses per episode Discontinued prednisone 20 mg tablet 40 mg PO DAILY Label Comments: Take 2 tablet by mouth once a day 5 tablets given Discharge Instructions Instructions: ARDS (Acute Respiratory Distress Syndrome) (DC), Anxiety (DC) Stand Alone Forms: Nursing Discharge Form Referrals: Lorrie Crespo [Primary Care Provider] - 04/17/22 3:00 pm Activity:: Activity as Tolerated Equipment/Supplies:: Portable O2 ordered Diet:: Low Sodium Discharge Orders Discharge Orders: Discharge Order (Routine); Ordered 04/08/22 Ordered By: Rodrigo Cruz Discharge Data Discharge Date/Time-TO BE ENTERED AT DEPARTURE: 04/08/22 15:15 DS: Summary Time Spent with Patient providing and/or coordinating discharge services: Greater than 30 minutes Status at Discharge Functional status at discharge: independent ambulation Overall status at discharge: patient is progressing back to baseline Mental Status: mental status grossly normal Speech and Movement: speech clear Mood: anxious mood Affect: blunted Exam Narrative Exam Narrative: General: sitting up at the edge of the bed. Discheveled. HEENT: EOMI, MMM. NC in place. Heart: RRR, no murmer Lungs: Diminished breath sounds throughout. Occasional exp wheeze. Abdomen: soft, nontender, nondistended Extremities: no edema BLEs Psych Mental Status: mental status grossly normal Speech and Movement: speech clear Mood: anxious mood Affect: blunted DS: Data Vitals/I&O Vitals and I&O: Vital Signs Temperature 36.8 C 04/08/22 11:30 Temperature Source Tympanic 04/08/22 11:30 Pulse 117 H 04/08/22 12:44 Pulse Rhythm Regular 04/08/22 11:01 Pulse 106 H 04/04/22 16:01 Respiratory Rate 18 04/08/22 12:44 Respiratory Effort 04/08/22 11:01 Respiratory Depth Shallow 04/08/22 11:01 Respiratory Pattern Normal 04/08/22 11:01 Blood Pressure 101/67 04/08/22 11:30 Blood Pressure Mean 94 04/04/22 16:01 Blood Pressure Position Sitting 04/02/22 20:00 Pulse Oximetry 95 04/08/22 12:44 Oxygen Delivery Method Nasal Cannula 04/08/22 12:44 Oxygen Flow Rate 3 04/08/22 12:44 Fraction of Inspired Oxygen (FIO2) 40 04/04/22 10:16 Pain Level 9 04/08/22 13:09 Comment 04/08/22 08:15 Intake & Output 04/07/22 04/08/22 04/08/22 23:59 11:59 23:59 Intake Total 420 / 900 480 / 480 Output Total 550 / 1450 1050 / 1050 Balance -130 / -550 -570 / -570 Weight 67.8 kg Intake: Oral 420 / 900 480 / 480 Output: Urine 550 / 1450 1050 / 1050 Other: Urine Color Yellow Yellow Urine Appearance Clear Clear Urine Odor None Stool Size Moderate Stool Characteristics Soft Formed Brown Voiding Methods Urinal Urinal PFSH All Active Problems (Updated 04/09/22 @ 00:04 by ARANZA SCHMIDT) COPD (chronic obstructive pulmonary disease) (Chronic) Altered mental status (Acute) Ambulatory dysfunction (Acute) Adult failure to thrive (Acute) Bullae (Acute) Cigarette smoker (Acute) Cognitive impairment (Chronic) Ambulatory dysfunction (Chronic) Current smoker (Acute) Lung bullae (Acute) Musculoskeletal chest pain (Chronic) Lethargy (Acute) BPH (benign prostatic hyperplasia) (Chronic) Lung disease (Acute) Arthritis (Acute) COPD exacerbation (Acute) Noncompliance with medication regimen (Acute) Depression (Chronic) UTI (urinary tract infection) (Acute) Polysubstance abuse (Chronic) Confusion (Acute) Orthostatic hypotension (Acute) PTSD (post-traumatic stress disorder) (Chronic) Discharge planning issues (Acute) Ambulatory dysfunction (Acute) Dyspnea (Acute) COPD (chronic obstructive pulmonary disease) (Chronic) DVT prophylaxis (Acute) Left rib fracture (Acute) Rib fracture (Acute) Syncope (Chronic) Severe chronic obstructive pulmonary disease (Chronic) Biventricular implantable cardioverter-defibrillator (ICD) in situ (Chronic) Mode:DDD, Low rate 60bpm, Atrial lead: medtronic 5076, SN: [id number] 09/27/14; RV lead Medtronic 6935M SN: [id number] 09/27/14; LV lead Medtronic 4396, SN; [id number] 09/27/14 (updated 03/11/20) Systolic and diastolic CHF, chronic (Chronic) LBBB (left bundle branch block) (Chronic) Nonischemic dilated cardiomyopathy (Chronic) Medical History Acquired deformity of left hand Agoraphobia Anxiety Anxiety with depression Cardiomyopathy Chest pain CHF (congestive heart failure) Chronic pain syndrome Constipation Cyst Diarrhea Dizziness DVT prophylaxis Erectile dysfunction Fatigue Hallucination Hand paresthesia Heart disease History of suicidal ideation History of tobacco abuse Hyperlipidemia Impacted ear wax Metacarpophalangeal joint pain Musculoskeletal chest pain Pacemaker Pain in right hip Panic anxiety syndrome Skin lesion Tobacco use Surgical History Status post biventricular pacemaker Family History Mother , 2008 COPD (chronic obstructive pulmonary disease) Social History Smoking/Tobacco Use Status: Former Tobacco Use Quit Date: 03/08/22 Pack-years: 120 Smoking risk assessment performed?: Yes Alcohol Intake: former Drug use: Never Substance use type: does not use Household members: none Pets and animals: No What type of physical activity do you participate in: none Seatbelt use: always Do you feel safe at home: Yes Do you feel safe in your relationship?: Yes Additional Social history: lives alone
--- NOTE | 2022-04-08 13:11 | PDOC.CMDIS ---
- If Service Date Differs Date of service: 04/08/22 Time of Service: 13:11 LACE Index Scoring Tool - Questions: Length of Stay (in days): 7 - 13 Acuity (Admit via E.D.?): Yes Comorbidities: Congestive Heart Failure, Chronic Pulmonary Disease E.D. Visits: 8 - Answers: Total Score: 17 Risk of Readmission: High Risk Care Management Discharge Reason for Hospitalization: Pneumonia Discharge Plan: William will return home today with new [facility] RN, PT, OT. He will be driven home via private vehicle by [employer] staff. He had a bed offer at [facility], which he declined. He stated that he will consider rehab as a back up plan if he is not successful at home. [employer] will pick up and delivery driver his prescriptions prior to bringing him home, and will bring him clothes as well. He has an O2 tank from [facility] [place] to bring home with him. He will follow up with his PCP, palliative and discharge plan of care. He is happy to be going home. Patient/Family Education Needs: Review discharge instructions and limitations, discussion of self care needs including ask me three and goals of care. Services Needed at Discharge: Home Health Care Services (new [facility] RN, PT, OT) - MH Services (Omit if N/A) Current MH Services: [employer]
--- NOTE | 2022-04-09 08:02 | PDOC.HHF2F_ITS ---
Home Health Certification Home Health Certification: 1. Encounter Date and Reason I certify that William Gay was seen by Rodrigo Cruz MD on 04/09/22 and that I had a [id number] encounter with this patient that meets the physician face to face encounter requirements. 2. Clinical Findings Supporting Skilled Need and Homebound Status I certify that home health services are medically necessary, include either intermittent shelter and/or physical/speech therapy, and that this jones ent is homebound in that absences from the home require considerable and taxing effort and are infrequent or of short duration, or are attributable to the need to receive medical care. [X] (a) Attached documentation from encounter provides clinical findings supporting skilled need and homebound status (including what assistance patient requires to leave the home). The encounter with the patient was in whole, or in part, for the following medical condition, which is the primary reason for home health care: Pneumonia, COPD exacerbation Shelter:Medication monitoring. Monitor respiratory status Physical Therapy:Occupational Therapy: evaluate and treat for gait instability and deconditioned state Speech Therapy: Homebound:D/T gait disturbance and weakness, requires another individual for safe ambulation out of the home. 3. Certification and Authentication I certify that I composed the above information based on my clinical judgement relating to this patient's medical condition and, if applicable, clinical findings communicated to me by the NPP or inpatient physician who performed the Home Health Referral. All further orders will be obtained through Lorrie Crespo (Community Based Physician - PCP)
== END 2022-04-08 15:15 | disposition designated cancer center or children's hospital (05) | DRG 193 ==
LOC: ER 14:52 → MS 03-30 09:19 → ICU 03-31 12:37 → MS 03-31 13:18 → ICU 04-03 23:22 → MS 04-06 08:06
PROVIDERS: Family Medicine; Internal Medicine; Nurse Practitioner Acute Care; Nurse Practitioner Family; Admitting Provider Internal Medicine; Emergency Provider Emergency Medicine; PCP Nurse Practitioner Family; Visit Provider Internal Medicine
DX: J18.9 Pneumonia, unspecified organism (principal); I50.23 Acute on chronic systolic (congestive) heart failure; J96.21 Acute and chronic respiratory failure with hypoxia; J96.22 Acute and chronic respiratory failure with hypercapnia; J44.0 Chronic obstructive pulmonary disease with (acute) lower respiratory infection; F33.3 Major depressive disorder, recurrent, severe with psychotic symptoms; I42.0 Dilated cardiomyopathy; J98.11 Atelectasis; E87.2 Acidosis; E87.1 Hypo-osmolality and hyponatremia; J44.1 Chronic obstructive pulmonary disease with (acute) exacerbation; N40.0 Benign prostatic hyperplasia without lower urinary tract symptoms; Z91.14 Patient's other noncompliance with medication regimen; R41.82 Altered mental status, unspecified; R26.2 Difficulty in walking, not elsewhere classified; R62.7 Adult failure to thrive; R53.1 Weakness; F19.10 Other psychoactive substance abuse, uncomplicated; I95.1 Orthostatic hypotension; F43.12 Post-traumatic stress disorder, chronic; Z95.810 Presence of automatic (implantable) cardiac defibrillator; I44.7 Left bundle-branch block, unspecified; Z87.891 Personal history of nicotine dependence; E87.70 Fluid overload, unspecified; R00.0 Tachycardia, unspecified; R79.1 Abnormal coagulation profile; I27.20 Pulmonary hypertension, unspecified
CPT/HCPCS: 36415; 71275; 80048; 80053; 82805; 84145; 87635; 93005; 93306; 94640; 97162; 97530; J1650; Q3014; 36600; 71045; 71046; 80178; 83735; 83880; 84100; 84484; 85025; 85049; 85379; 93010; 94660; 94667; 94760; 99223; 99232; 99233; 99239; 99291; J1940; J1941; J1956; J2060; J2270; J2930; J3475; J3490; J7512; J7613; J7620

== ENCOUNTER 2022-11-12 14:39 | Outpatient (REF) | payer MEDICARE, SELFPAY ==
[2022-11-12 21:17] LABS: HCT 48.3 % (40.0-50.0); HGB 16.2 g/dL (13.5-17.5); MCH 30.3 pg (27.0-33.0); MCHC 33.5 % (32.0-36.0); MCV 90 fL (80-95); MPV 11.4 fL (8.0-11.0); Platelet Count 216 10^3/uL (130-400); RBC 5.35 10^6/uL (4.36-5.78); RDW 12.9 % (11.8-14.1); RDW-SD 42.5 fL; WBC 8.42 10^3/uL (4.4-10.8)
[2022-11-12 21:37] LABS: Hemoglobin A1C 6.5 % (<5.7)
[2022-11-12 21:42] LABS: ALT 27 U/L (16-63); AST 21 U/L (15-37); Albumin 4.1 g/dL (3.4-5.0); Alkaline Phosphatase 107 U/L (46-116); BUN 9 mg/dL (7-18); Bilirubin, Total 0.3 mg/dL (0.2-1.0); CREATININE 0.9 mg/dL (0.70-1.30); Calcium 9.5 mg/dL (8.5-10.1); Chloride 103 mmol/L (98-107); Glucose 103 mg/dL (74-106); Potassium 5.1 mmol/L (3.5-5.1); Sodium 140 mmol/L (136-145); TSH (W/Ref FT4) 2.03 uIU/mL (0.36-3.74); Total Protein 7.5 g/dL (6.4-8.2)
== END 2022-11-12 14:40 | disposition home or self-care (01) ==
LOC: NCHCN 14:39
PROVIDERS: PCP Nurse Practitioner Family; Visit Provider Nurse Practitioner Family
DX: R73.09 Other abnormal glucose (principal); R94.6 Abnormal results of thyroid function studies; J44.9 Chronic obstructive pulmonary disease, unspecified
CPT/HCPCS: 80053; 85027; 83036; 84443

== ENCOUNTER 2023-01-05 10:30 | Inpatient (IN) | payer MEDICARE, SELFPAY ==
[2023-01-05] VITALS (8 sets, daily range): BP systolic 122–158; BP diastolic 64–85; PULSE 81–107; RESP 7–26; TEMP 36.4–37.3; O2SAT 92–95
--- NOTE | 2023-01-05 10:30 | RT.EKG_ITS ---
APPROVED REPORT Exam: Resting ECG Reason for Exam: sob Patient Location: E HR:104 bpm ECG Measurements Heart Rate 104 AXIS OH 60 P -70 QRSd 127 QRS 259 QT 361 T 62 QTc 475 Conclusion Atrial-sensed ventricular-paced rhythm...ventricular pacing tracks p-waves Biventricular paced rhythm...non-simultaneous bi-vent pacing
--- NOTE | 2023-01-05 10:30 | DI.RAD_ITS ---
Exam(s) XR CHEST 2V PA LATERAL EXAM: XR CHEST 2V PA LATERAL CLINICAL HISTORY: SOB, hx COPD TECHNIQUE: 2D digital imaging was performed. COMPARISON: CR XR CHEST 2V PA LATERAL from 03/30/2022 CR XR PORTABLE CHEST AP from 03/31/[address] CHEST PE CTA from 04/01/2022 FINDINGS: Multiple leads overlie the chest. HEART: Normal size. Pacemaker again noted Aorta: Not dilated. PULMONARY VASCULATURE: Normal. LUNGS: Hyperinflated. Emphysematous changes at upper lobes. No infiltrates visible. PLEURAL SPACE: No pleural effusion or pneumothorax. BONE:Unremarkable for age. IMPRESSION: No acute abnormality. DATA REPOSITORY: RADIATION DOSE DELIVERED:
--- NOTE | 2023-01-05 10:49 | ED.GENADUL_ITS ---
Discharge Plan Disposition Patient Disposition: Admit to [facility] Condition: Improving Discharge Details Clinical Impression: COPD exacerbation Admit Date/Time: 01/05/23 12:00 Admit Provider: Lore Lynne Attending Provider: Lore Lynne Primary Care Provider: Lorrie Crespo ED Provider: Jesus Wooten Medical Decision Making 57-year-old male who with oxygen dependent COPD presents to the ER via EMS. He reports a week of poor exercise tolerance, increasing shortness of breath, a cough that has been predominantly dry. States this is similar to multiple episodes of COPD exacerbation requiring admission. He denies to me chest pain, no lower extremity edema, states that he has been taking his medications. Not currently on steroids. Patient arrives with bilateral end expiratory wheeze, increased work of breathing. He is on home level of oxygen but does appear to be fragile. Broad differential diagnosis considered including COPD exacerbation, bronchitis, pneumonia. Patient had IV access established, screening labs including VBG, troponin and BNP were obtained. Patient's laboratories note white count of 10, hematocrit 51, platelets 248. Venous blood gas shows PCO2 of 52. Basic chemistries unremarkable, LFTs within normal limits, troponin negative, BNP of 289. Viral respiratory panel was negative. Chest x-ray without focal infiltrate. With ambulation patient becomes tachycardic with increased work of breathing. Feels he will fail if he is discharged home. He certainly has fragile baseline and today has COPD exacerbation. We will consider admission. HPI General Mode of arrival: ambulatory . Date/Time Provider Initiated Documentation: 01/05/23 11:27 . Limitations to Documentation: no limitations . Information obtained by: patient . History of Present Illness 57 year old M presents to the emergency department with the chief complaint of Shortness of breath, described as moderate, and is localized to the chest. Patient reports no radiation. Patient started experiencing this day(s) and it has been intermittent. Rest improves symptom(s), Movement worsens symptoms . Patient notes cough and shortness of breath; denies fever/chills and syncope. Patient did receive the following treatments prior to arrival, none Related Data Home Medications Medication Instructions Recorded Confirmed pravastatin 20 mg tablet 20 mg PO QHS #10 tabs 03/17/20 01/05/23 pantoprazole 40 mg tablet,delayed 40 mg PO DAILY@0730 #30 tabs 05/01/21 01/05/23 release albuterol sulfate 90 mcg/actuation 2 puff inhalation Q4H WHILE AWAKE 02/05/22 01/05/23 aerosol inhaler (ProAir HFA) PRN nitroglycerin 0.3 mg sublingual 0.3 mg sublingual Q5-15M PRN 02/19/22 01/05/23 tablet acetaminophen 325 mg capsule 325 mg PO DAILY 03/28/22 01/05/23 (Tylenol) bacitracin 500 unit/gram topical 1 applic topical BID PRN PRN 03/28/22 12/31/22 packet budesonide-formoterol HFA 80 2 puff inhalation BID 03/28/22 01/05/23 mcg-4.5 mcg/actuation aerosol inhaler montelukast 10 mg tablet 10 mg PO DAILY 03/28/22 01/05/23 bupropion HCl 300 mg 24 hr tablet, 300 mg PO DAILY 03/29/22 01/05/23 extended release tamsulosin 0.4 mg capsule 0.4 mg PO HS 03/29/22 01/05/23 empagliflozin 10 mg tablet 10 mg PO QAM #30 tabs 04/08/22 12/31/22 (Jardiance) naloxone 4 mg/actuation nasal spray 4 mg intranasal Q2M PRN 07/21/22 01/05/23 benztropine 1 mg tablet 1 mg PO DAILY 08/11/22 12/31/22 calcium carbonate 200 mg calcium 200 mg PO Q2H WHILE AWAKE PRN 10/29/22 12/31/22 (500 mg) chewable tablet (Tums) dyspepsia #90 tabs clonazepam 1 mg tablet 1 mg PO BID 10/29/22 01/05/23 gabapentin 300 mg tablet 300 mg PO Q8H 10/29/22 01/05/23 guaifenesin 100 mg/5 mL oral liquid 200 mg (10 mL) PO Q4H PRN PRN 10/29/2212/23 congestion #1,000 mL quetiapine 200 mg tablet 300 mg PO HS 10/29/22 01/05/23 ondansetron 4 mg disintegrating 4 mg PO Q8H PRN nausea and 11/20/22 12/31/22 tablet vomiting #14 tabs polyethylene glycol 3350 17 gram 17 g PO BID #14 ea 11/20/22 01/05/23 oral powder packet sennosides 8.6 mg tablet (senna) 8.6 mg PO BID PRN constipation #60 11/20/22 01/05/23 tabs prednisone 10 mg tablet 10 mg PO DAILY #30 tabs 12/02/22 01/05/23 ipratropium 0.5 mg-albuterol 3 mg 3 ml inhalation Q6H PRN PRN 12/07/22 01/05/23 (2.5 mg base)/3 mL nebulization shortness of breath or wheezing soln #180 mL morphine concentrate 100 mg/5 mL 7.5 mg (0.375 mL) PO Q3H PRN pain 12/08/22 01/05/23 (20 mg/mL) oral solution #500 mL buprenorphine 7.5 mcg/hour weekly 1 patch transdermal Q7D #4 ea 01/01/23 01/05/23 transdermal patch benztropine 1 mg tablet 1 mg PO QHS 01/05/23 01/05/23 famotidine 10 mg tablet 10 mg PO BID PRN 01/05/23 01/05/23 levofloxacin 500 mg tablet 500 mg PO DAILY 5 days #5 tabs 01/05/23 01/05/23 nicotine 21 mg/24 hr daily 1 patch transdermal QDAY 01/05/23 01/05/23 transdermal patch prednisone 20 mg tablet 40 mg PO DAILY 5 days #10 tabs 01/05/23 01/05/23 Previous Rx's Medication Instructions Recorded pravastatin 20 mg tablet 20 mg PO QHS #10 tabs 03/17/20 pantoprazole 40 mg tablet,delayed 40 mg PO DAILY@0730 #30 tabs 05/01/21 release empagliflozin 10 mg tablet 10 mg PO QAM #30 tabs 04/08/22 (Jardiance) calcium carbonate 200 mg calcium 200 mg PO Q2H WHILE AWAKE PRN 10/29/22 (500 mg) chewable tablet (Tums) dyspepsia #90 tabs guaifenesin 100 mg/5 mL oral liquid 200 mg (10 mL) PO Q4H PRN PRN 10/29/22 congestion #1,000 mL ondansetron 4 mg disintegrating 4 mg PO Q8H PRN nausea and 11/20/22 tablet vomiting #14 tabs polyethylene glycol 3350 17 gram 17 g PO BID #14 ea 11/20/22 oral powder packet sennosides 8.6 mg tablet (senna) 8.6 mg PO BID PRN constipation #60 11/20/22 tabs prednisone 10 mg tablet 10 mg PO DAILY #30 tabs 12/02/22 ipratropium 0.5 mg-albuterol 3 mg 3 ml inhalation Q6H PRN PRN 12/07/22 (2.5 mg base)/3 mL nebulization shortness of breath or wheezing soln #180 mL morphine concentrate 100 mg/5 mL 7.5 mg (0.375 mL) PO Q3H PRN pain 12/08/22 (20 mg/mL) oral solution #500 mL buprenorphine 7.5 mcg/hour weekly 1 patch transdermal Q7D #4 ea 01/01/23 transdermal patch levofloxacin 500 mg tablet 500 mg PO DAILY 5 days #5 tabs 01/05/23 prednisone 20 mg tablet 40 mg PO DAILY 5 days #10 tabs 01/05/23 Allergies Allergy/AdvReac Type Severity Reaction Status Date / Time No Known Allergies Allergy Unverified 03/28/22 12:26 General Stated Complaint: SOB MOLLY: 3 Review of Systems Narrative: On 3 L home oxygen. Worsening shortness of breath over 3 to 4 days time. Mild anxiety. No production of sputum. Denies fever. 8 systems were reviewed and otherwise not PFSH All Active Problems (Updated 01/05/23 @ 12:21 by Jesus Wooten MD) Unintentional weight loss (Acute) Advance care planning (Acute) Peripheral neuropathic pain (Acute) Pain (Acute) Encounter for palliative care (Acute) Palliative care status (Acute) Encounter for hospice care discussion (Acute) Oxygen dependent (Acute) Nightmares (Acute) Full code status (Acute) Need for home health care (Acute) COPD (chronic obstructive pulmonary disease) (Chronic) Altered mental status (Acute) Ambulatory dysfunction (Acute) Adult failure to thrive (Acute) Bullae (Acute) Cigarette smoker (Acute) Cognitive impairment (Chronic) Ambulatory dysfunction (Chronic) Current smoker (Acute) Lung bullae (Acute) Musculoskeletal chest pain (Chronic) Lethargy (Acute) BPH (benign prostatic hyperplasia) (Chronic) Lung disease (Acute) Arthritis (Acute) COPD exacerbation (Acute) Noncompliance with medication regimen (Acute) Depression (Chronic) UTI (urinary tract infection) (Acute) Polysubstance abuse (Chronic) Confusion (Acute) Orthostatic hypotension (Acute) PTSD (post-traumatic stress disorder) (Chronic) Discharge planning issues (Acute) Ambulatory dysfunction (Acute) Dyspnea (Acute) COPD (chronic obstructive pulmonary disease) (Chronic) DVT prophylaxis (Acute) Left rib fracture (Acute) Rib fracture (Acute) Syncope (Chronic) Severe chronic obstructive pulmonary disease (Chronic) Biventricular implantable cardioverter-defibrillator (ICD) in situ (Chronic) Mode:DDD, Low rate 60bpm, Atrial lead: medtronic 5076, SN: [id number] 09/27/14; RV lead Medtronic 6935M SN: [id number] 09/27/14; LV lead Medtronic 4396, SN; TRACIE [id number] 09/27/14 (updated 03/11/20) Systolic and diastolic CHF, chronic (Chronic) LBBB (left bundle branch block) (Chronic) Nonischemic dilated cardiomyopathy (Chronic) Medical History Acquired deformity of left hand Agoraphobia Anxiety Anxiety with depression Cardiomyopathy Chest pain CHF (congestive heart failure) Chronic pain syndrome Constipation Cyst Diarrhea Dizziness DVT prophylaxis Elevated d-dimer Erectile dysfunction Fatigue Hallucination Hand paresthesia Heart disease History of suicidal ideation History of tobacco abuse Hyperlipidemia Impacted ear wax Metacarpophalangeal joint pain Musculoskeletal chest pain Pacemaker Pain in right hip Panic anxiety syndrome Skin lesion Tobacco use Surgical History Status post biventricular pacemaker Family History Mother , 2008 COPD (chronic obstructive pulmonary disease) Social History Smoking/Tobacco Use Status: Former Tobacco Use Quit Date: 03/08/22 Pack-years: 120 Smoking risk assessment performed?: Yes Alcohol Intake: former Drug use: Never Substance use type: does not use Household members: none Pets and animals: No What type of physical activity do you participate in: none Seatbelt use: always Do you feel safe at home: Yes Do you feel safe in your relationship?: Yes Additional Social history: lives alone Exam Narrative Exam Narrative: GEN: awake, alert, oriented 3. Pleasant, well groomed, interactive. HEAD: Normocephalic, atraumatic ENT: Mucous membranes moist, oropharynx unremarkable, External ear exam unremarkable EYES: PERRL, EOMI NECK: Full ROM, no JUAN, no menigismus CHEST/RESP: Bilateral end expiratory wheeze, rhonchi present bilaterally CARDIOVASCULAR: Distant, regular ABDOMEN: Soft, nontender, no mass. +Bowel sounds EXT: Full ROM, no edema, no rash Neuro: Grossly normal neurologic exam, conversant, interactive. Psych: Speech fluent, thoughts congruent, affect normal Course Vital Signs Vital signs: Vital Signs Temperature 36.7 C 01/05/23 10:33 Pulse 107 H 01/05/23 10:33 Respiratory Rate 19 01/05/23 10:33 Blood Pressure 158/85 H 01/05/23 10:33 Pulse Oximetry 93 01/05/23 10:33 Temperature 36.7 C 01/05/23 10:33 Temperature Source Temporal Artery Scan 01/05/23 10:33 Pulse 107 H 01/05/23 10:33 Respiratory Rate 19 01/05/23 10:33 Blood Pressure 158/85 H 01/05/23 10:33 Blood Pressure Position Sitting 01/05/23 10:33 Pulse Oximetry 93 01/05/23 10:33 Oxygen Delivery Method Nasal Cannula 01/05/23 10:33 Oxygen Flow Rate 4 01/05/23 10:33
[2023-01-05 10:57] LABS: BE (Venous) 3 mmol/L (-2-3); HCO3 (Venous) 29 mmol/L (23-28); O2 Sat (Venous) 96 %; TCO2 (Venous) 25 mmol/L (24-29); pCO2 (Venous) 52 mmHg (41-51); pH (Venous) 7.35 (7.31-7.41); pO2 (Venous) 79 mmHg
[2023-01-05 11:00] LABS: Abs Immature Grans 0.05 10^3/uL (0.0-0.06); Absolute Basophil Count 0.07 10^3/uL (0.0-0.2); Absolute Eosinophil Count 0.04 10^3/uL (0.0-0.7); Absolute Lymphocyte Count 0.95 10^3/uL (1.2-3.4); Absolute Monocyte Count 1.03 10^3/uL (0.1-0.8); Basophils % 0.6; Eosinophils % 0.4; HCT 51.5 % (40.0-50.0); HGB 17.5 g/dL (13.5-17.5); Immature Grans % 0.5; Lymphocytes % 8.8; MCV 88 fL (80-95); MPV 10.6 fL (8.0-11.0); Monocytes % 9.5; Neutrophils % 80.2; Platelet Count 248 10^3/uL (130-400); RBC 5.84 10^6/uL (4.36-5.78); RDW 12.9 % (11.8-14.1); RDW-SD 41.8 fL; WBC 10.85 10^3/uL (4.4-10.8)
[2023-01-05] MEDS: Albuterol/Ipratropium 3 ML UPD VIAL UPD ×2 (11:04→12:43)
[2023-01-05] MEDS: methylPREDNISolone SUCC 125 MG VIAL IVP (11:04)
[2023-01-05] MEDS: Normal Saline Flush 10 ML SYR IVP (11:13)
[2023-01-05 11:33] LABS: ALT 32 U/L (16-63); AST 19 U/L (15-37); Albumin 3.9 g/dL (3.4-5.0); Alkaline Phosphatase 101 U/L (46-116); Anion Gap 7.2 mmol/L (3-11); BUN 10 mg/dL (7-18); Bilirubin, Total 0.4 mg/dL (0.2-1.0); CO2 29.8 mmol/L (21.0-32.0); CREATININE 0.9 mg/dL (0.70-1.30); Calcium 9.6 mg/dL (8.5-10.1); Chloride 99 mmol/L (98-107); Estimated GFR 98.38 (mL/min/1.73m2); Glucose 137 mg/dL (74-106); Magnesium 2.1 mg/dL (1.8-2.4); NT-proBNP 289 pg/mL (<300); Potassium 4.8 mmol/L (3.5-5.1); Sodium 136 mmol/L (136-145); Troponin I < 50 ng/L (<or=60)
[2023-01-05 11:42] LABS: COVID-19 PCR Negative (Negative); Influenza A PCR Negative (Negative); Influenza B PCR Negative (Negative); RSV PCR Negative (Negative)
[2023-01-05 11:45] LABS: Source Nasopharynx
--- NOTE | 2023-01-05 12:00 | NUR.NOTE ---
Nursing Note: Attempted SPO2 walk test. patient able to ambulate though unsteady on feet, o2 lowest reading at 91% on 4L after 1 minute. Patient unable to tolerate continued walking. Tachypnic, pursed lip breathing, tachycardic. denies CP. Returned to bed.
--- NOTE | 2023-01-05 12:01 | HPE_ITS ---
Date of service: 01/05/23 Time of Service: 12:01 Assessment and Plan Assessment and plan (1) COPD exacerbation: Status: Resolved Assessment and plan: continue scheduled + prn nebs, prednisone burst. no evidence of pneumonia by cxr, no fever, hemodynamically stable covid/flu/rsv negative (2) Nonischemic dilated cardiomyopathy: Status: Chronic Assessment and plan: appears euvolemic Echo -EF of 40-45%. RVSP was unable to be calculated AICD in situ (3) BPH (benign prostatic hyperplasia): Status: Chronic (4) Diabetes: Status: Chronic Assessment and plan: A1C 6.5 in Oct [address] on diabetic diet anticipate hyperglycemia in setting of steroids. (5) DVT prophylaxis: Status: Acute Assessment and plan: Sc lovenox (6) Discharge planning issues: Status: Acute Assessment and plan: Full code Medsurg observation status. followed by palliative anticipate discharge to home with resumption of services once medically stable. discussed with DR Lynne History of Present Illness History of Present Illness Chief Complaint: shortness of breath Narrative: This is a 57-year-old male patient with a past medical history significant for COPD oxygen dependency posttraumatic stress disorder systolic and diastolic heart failure with an AICD diabetes who presented to the emergency department after what he reports is a 2 to 3-day history of increased shortness of breath and cough. He denies any fever or chills. He states he has been eating and drinking well. He did see his primary care provider who did start him on a prednisone burst but due to the severity of his symptoms he decided to present to the emergency department for evaluation. Work-up in the emergency department was most consistent with a COPD exacerbation. There was no infiltrates or consolidation on x-ray. He had no fever. Vital signs stable. He was noted however to have increased oxygen requirements up to 4 L nasal cannula from a 3 L baseline and this was keeping his sats in the low 90s. His case was discussed with hospitalist service and he was admitted to the medical surgical unit under observation status. He was given DuoNeb updrafts in the emergency department with improvement in his symptoms Review of Systems All systems reviewed & are unremarkable except as noted in HPI and below Constitutional Constitutional: Reports system reviewed and no additional complaints, except as documented PFSH All Active Problems DVT prophylaxis (Acute) Discharge planning issues (Acute) Unintentional weight loss (Acute) Advance care planning (Acute) Peripheral neuropathic pain (Acute) Pain (Acute) Encounter for palliative care (Acute) Palliative care status (Acute) Encounter for hospice care discussion (Acute) Oxygen dependent (Acute) Nightmares (Acute) Full code status (Acute) Need for home health care (Acute) COPD (chronic obstructive pulmonary disease) (Chronic) Altered mental status (Acute) Ambulatory dysfunction (Acute) Adult failure to thrive (Acute) Bullae (Acute) Cigarette smoker (Acute) Cognitive impairment (Chronic) Ambulatory dysfunction (Chronic) Current smoker (Acute) Lung bullae (Acute) Musculoskeletal chest pain (Chronic) Lethargy (Acute) BPH (benign prostatic hyperplasia) (Chronic) Lung disease (Acute) Arthritis (Acute) Diabetes (Chronic) COPD exacerbation (Acute) Noncompliance with medication regimen (Acute) Depression (Chronic) UTI (urinary tract infection) (Acute) Polysubstance abuse (Chronic) Confusion (Acute) Orthostatic hypotension (Acute) PTSD (post-traumatic stress disorder) (Chronic) Discharge planning issues (Acute) Ambulatory dysfunction (Acute) Dyspnea (Acute) COPD (chronic obstructive pulmonary disease) (Chronic) DVT prophylaxis (Acute) Left rib fracture (Acute) Rib fracture (Acute) Syncope (Chronic) Severe chronic obstructive pulmonary disease (Chronic) Biventricular implantable cardioverter-defibrillator (ICD) in situ (Chronic) Mode:DDD, Low rate 60bpm, Atrial lead: medtronic 5076, SN: [id number] 09/27/14; RV lead Medtronic 6935M SN: [id number] 09/27/14; LV lead Medtronic 4396, SN; TRACIE [id number] 09/27/14 (updated 03/11/20) Systolic and diastolic CHF, chronic (Chronic) LBBB (left bundle branch block) (Chronic) Nonischemic dilated cardiomyopathy (Chronic) Medical History Acquired deformity of left hand Agoraphobia Anxiety Anxiety with depression Cardiomyopathy Chest pain CHF (congestive heart failure) Chronic pain syndrome Constipation Cyst Diarrhea Dizziness DVT prophylaxis Elevated d-dimer Erectile dysfunction Fatigue Hallucination Hand paresthesia Heart disease History of suicidal ideation History of tobacco abuse Hyperlipidemia Impacted ear wax Metacarpophalangeal joint pain Musculoskeletal chest pain Pacemaker Pain in right hip Panic anxiety syndrome Skin lesion Tobacco use Surgical History Status post biventricular pacemaker Family History Mother , 2008 COPD (chronic obstructive pulmonary disease) Social History Smoking/Tobacco Use Status: Former Tobacco Use Quit Date: 03/08/22 Pack-years: 120 Smoking risk assessment performed?: Yes Alcohol Intake: former Drug use: Never Substance use type: does not use Household members: none Pets and animals: No What type of physical activity do you participate in: none Seatbelt use: always Do you feel safe at home: Yes Do you feel safe in your relationship?: Yes Additional Social history: lives alone Meds Allergies and Home Medications Allergies Allergy/AdvReac Type Severity Reaction Status Date / Time No Known Allergies Allergy Unverified 03/28/22 12:26 Home Medications Medication Instructions Recorded Confirmed Type pravastatin 20 mg tablet 20 mg PO QHS #10 tabs 03/17/20 01/06/23 Rx pantoprazole 40 mg tablet,delayed 40 mg PO DAILY@0730 #30 tabs 05/01/21 01/06/23 Rx release albuterol sulfate 90 mcg/actuation 2 puff inhalation Q4H WHILE AWAKE 02/05/22 01/06/23 History aerosol inhaler (ProAir HFA) PRN nitroglycerin 0.3 mg sublingual 0.3 mg sublingual Q5-15M PRN 02/19/22 01/05/23 History tablet acetaminophen 325 mg capsule 325 mg PO DAILY 03/28/22 01/05/23 History (Tylenol) budesonide-formoterol HFA 80 2 puff inhalation BID 03/28/22 01/06/23 History mcg-4.5 mcg/actuation aerosol inhaler montelukast 10 mg tablet 10 mg PO DAILY 03/28/22 01/06/23 History bupropion HCl 300 mg 24 hr tablet, 300 mg PO DAILY 03/29/22 01/06/23 History extended release tamsulosin 0.4 mg capsule 0.4 mg PO HS 03/29/22 01/06/23 History naloxone 4 mg/actuation nasal spray 4 mg intranasal Q2M PRN 07/21/22 01/05/23 History calcium carbonate 200 mg calcium 200 mg PO Q2H WHILE AWAKE PRN 10/29/22 12/31/22 Rx (500 mg) chewable tablet (Tums) dyspepsia #90 tabs clonazepam 1 mg tablet 1 mg PO BID 10/29/22 01/06/23 History gabapentin 300 mg tablet 300 mg PO Q8H 10/29/22 01/06/23 History guaifenesin 100 mg/5 mL oral liquid 200 mg (10 mL) PO Q4H PRN PRN 10/29/22 01/05/23 Rx congestion #1,000 mL ondansetron 4 mg disintegrating 4 mg PO Q8H PRN nausea and 11/20/22 01/06/23 Rx tablet vomiting #14 tabs polyethylene glycol 3350 17 gram 17 g PO BID #14 ea 11/20/22 01/05/23 Rx oral powder packet sennosides 8.6 mg tablet (senna) 8.6 mg PO BID PRN constipation #60 11/20/22 01/05/23 Rx tabs prednisone 10 mg tablet 10 mg PO DAILY #30 tabs 12/02/22 01/05/23 Rx ipratropium 0.5 mg-albuterol 3 mg 3 ml inhalation Q6H PRN PRN 12/07/22 01/06/23 Rx (2.5 mg base)/3 mL nebulization shortness of breath or wheezing soln #180 mL morphine concentrate 100 mg/5 mL 7.5 mg (0.375 mL) PO Q3H PRN pain 12/08/22 01/06/23 Rx (20 mg/mL) oral solution #500 mL buprenorphine 7.5 mcg/hour weekly 1 patch transdermal Q7D #4 ea 01/01/23 01/06/23 Rx transdermal patch benztropine 1 mg tablet 1 mg PO QHS 01/05/23 01/05/23 History famotidine 10 mg tablet 10 mg PO BID PRN 01/05/23 01/05/23 History levofloxacin 500 mg tablet 500 mg PO DAILY 5 days #5 tabs 01/05/23 01/06/23 Rx nicotine 21 mg/24 hr daily 1 patch transdermal QDAY 01/05/23 01/05/23 History transdermal patch prednisone 20 mg tablet 40 mg PO DAILY 5 days #10 tabs 01/05/23 01/06/23 Rx quetiapine 400 mg tablet,extended 400 mg PO HS 01/06/23 01/06/23 History release 24 hr (Seroquel XR) quetiapine 50 mg tablet,extended 50 mg PO HS 01/06/23 01/06/23 History release 24 hr (Seroquel XR) Exam Narrative Exam Narrative: This is a white male older than stated age in no acute distress Head is atraumatic oral mucosa is slightly dry Neck is supple full range of motion with no JVD Respirations are even and unlabored. His breath sounds are diminished t hroughout no rhonchi or coarse breath sounds appreciated. Occasional expiratory wheeze Abdomen is round distended nontender and soft. Moves all extremities equally Results Labs 01/05/23 10:40 01/05/23 10:40 Labs: Laboratory Results - last 24 hr 01/05/23 01/05/23 01/05/23 10:40 10:40 10:40 WBC 10.85 H RBC 5.84 H Hgb 17.5 Hct 51.5 H MCV 88 MCH 30.0 MCHC 34.0 RDW 12.9 Plt Count 248 MPV 10.6 Immature Gran % 0.5 Neutrophils % 80.2 Lymphocytes % 8.8 Monocytes % 9.5 Eosinophils % 0.4 Basophils % 0.6 Nucleated RBC % 0.0 Absolute Neutrophils 8.70 H Absolute Lymphocytes 0.95 L Absolute Monocytes 1.03 H Absolute Eosinophils 0.04 Absolute Basophils 0.07 VBG pH 7.35 VBG pCO2 52 H VBG pO2 79 VBG HCO3 29 H VBG Total CO2 25 VBG O2 Saturation 96 VBG Base Excess 3 Sodium 136 Potassium 4.8 Chloride 99 Carbon Dioxide 29.8 Anion Gap 7.2 BUN 10 Creatinine 0.9 Est GFR (CKD-EPI 2020) 98.38 Glucose 137 H Calcium 9.6 Magnesium 2.1 Total Bilirubin 0.4 AST 19 ALT 32 Alkaline Phosphatase 101 Troponin I < 50 NT-Pro-B Natriuret Pep 289 Total Protein 8.0 Albumin 3.9 COVID-19 Source SARS-CoV-2 (PCR) Influenza Type A (PCR) Influenza Type B (PCR) RSV (PCR) 01/05/23 10:58 WBC RBC Hgb Hct MCV MCH MCHC RDW Plt Count MPV Immature Gran % Neutrophils % Lymphocytes % Monocytes % Eosinophils % Basophils % Nucleated RBC % Absolute Neutrophils Absolute Lymphocytes Absolute Monocytes Absolute Eosinophils Absolute Basophils VBG pH VBG pCO2 VBG pO2 VBG HCO3 VBG Total CO2 VBG O2 Saturation VBG Base Excess Sodium Potassium Chloride Carbon Dioxide Anion Gap BUN Creatinine Est GFR (CKD-EPI 2020) Glucose Calcium Magnesium Total Bilirubin AST ALT Alkaline Phosphatase Troponin I NT-Pro-B Natriuret Pep Total Protein Albumin COVID-19 Source Nasopharynx SARS-CoV-2 (PCR) Negative Influenza Type A (PCR) Negative Influenza Type B (PCR) Negative RSV (PCR) Negative Last Vital Signs Temp 36.7 C 01/05/23 10:33 Pulse 107 H 01/05/23 10:33 Resp 26 H 01/05/23 11:11 BP 158/85 H 01/05/23 10:33 Pulse Ox 93 01/05/23 10:33 Time Spent Time spent with Patient: 40-54 minutes Time was spent: preparing to see the patient(eg.review tests), obtaining and/or reviewing separately otained hiistory, ordering medications,tests, procedures, referring, communicating with other health hemodialysis patient care specialist and indepentently interpreting results
[2023-01-05 14:24] LABS: Troponin I < 50 ng/L (<or=60)
[2023-01-05] MEDS: Albuterol/Ipratropium 3 ML UPD VIAL IH ×2 (16:17→19:24)
--- NOTE | 2023-01-05 16:29 | RESPIRATORY ---
Patient wears 3L of home 02 through [employer].
--- NOTE | 2023-01-05 18:05 | NUR.NOTE ---
Patient has home buprenorphine patch to abdomen, 5mcg. New orders for buprenorphine show 7.5mcg due for am. Clarified with charge nurse, Sp. Buprenorphine patch placed in patient's personal locked bin at nurse's station.
[2023-01-05] MEDS: Budesonide/Formoterol 80/4.5 6.9 GM 60 PUFF INH IH (19:18)
[2023-01-05] MEDS: Gabapentin 300 MG CAP PO (21:13)
[2023-01-05] MEDS: Pravastatin 20 MG TAB PO (21:14)
[2023-01-05] MEDS: clonazePAM 1 MG TAB PO (21:14)
[2023-01-05] MEDS: Benztropine 1 MG TAB PO (21:14)
[2023-01-05] MEDS: Tamsulosin 0.4 MG CAPCR PO (21:14)
[2023-01-05] MEDS: Polyethylene Glycol 3350 17 GM PACKET PO (21:15)
[2023-01-06] VITALS (11 sets, daily range): BP systolic 102–122; BP diastolic 66–81; PULSE 87–113; RESP 7–24; TEMP 36.4–37; O2SAT 90–98
[2023-01-06] MEDS: Budesonide/Formoterol 80/4.5 6.9 GM 60 PUFF INH IH ×2 (07:53→21:08)
[2023-01-06] MEDS: Albuterol/Ipratropium 3 ML UPD VIAL IH ×3 (07:54→21:08)
[2023-01-06] MEDS: clonazePAM 1 MG TAB PO ×2 (08:07→21:07)
[2023-01-06] MEDS: Pantoprazole 40 MG TABCR PO (08:07)
[2023-01-06] MEDS: Gabapentin 300 MG CAP PO ×3 (08:07→21:07)
[2023-01-06] MEDS: buPROPion-XL 150 MG TABCR 300 MG PO (08:08)
[2023-01-06] MEDS: Acetaminophen 325 MG TAB PO (08:08)
[2023-01-06] MEDS: levoFLOXacin 500 MG TAB PO (08:09)
[2023-01-06] MEDS: predniSONE 20 MG TAB 40 MG PO (08:17)
[2023-01-06] MEDS: Montelukast 10 MG TAB PO (08:17)
[2023-01-06 10:32] LABS: HCT 48.6 % (40.0-50.0); HGB 16.5 g/dL (13.5-17.5); MCH 30.2 pg (27.0-33.0); MCV 89 fL (80-95); MPV 9.9 fL (8.0-11.0); Platelet Count 231 10^3/uL (130-400); RBC 5.47 10^6/uL (4.36-5.78); RDW 12.7 % (11.8-14.1); RDW-SD 41.5 fL
--- NOTE | 2023-01-06 10:46 | W.PM.PROGNOT ---
Date of Service Date of service: 01/06/23 Time of Service: 10:46 Assessment and Plan Assessment and plan (1) COPD exacerbation: Status: Resolved Assessment and plan: continue scheduled + prn nebs, prednisone burst. no evidence of pneumonia by cxr, no fever, hemodynamically stable covid/flu/rsv negative add procal (2) Nonischemic dilated cardiomyopathy: Status: Chronic Assessment and plan: sounds wet on exam today, will give one time dose of IV lasix monitor I&O and weights Echo -EF of 40-45%. RVSP was unable to be calculated AICD in situ (3) BPH (benign prostatic hyperplasia): Status: Chronic Assessment and plan: continue tamsulosin, no sign of urinary retention (4) Diabetes: Status: Chronic Assessment and plan: A1C 6.5 in [address] on diabetic diet anticipate hyperglycemia in setting of steroids. (5) DVT prophylaxis: Status: Acute Assessment and plan: Sc lovenox (6) Discharge planning issues: Status: Acute Assessment and plan: Full code Medsurg observation status. followed by palliative anticipate discharge to home with resumption of services once medically stable. discussed with DR Lynne Subjective Subjective Patient reports: tolerating liquids well, tolerating a regular diet, shortness of breath and afebrile Exam Const General: cooperative, comfortable and no acute distress Nutritional Appearance: overweight Orientation: alert, awake and oriented x3 HENMT Head: normal to inspection, normocephalic and atraumatic Mouth: oral mucosae normal Resp Effort & Inspection: normal respiratory effort (shortness of breath on exertion) Auscultation: diminished lung sounds bilaterally and rales bilaterally (bases) Cardio Rate: regular rate Rhythm: regular rhythm GI Inspection: normal to inspection Palpation: soft Auscultation: normal bowel sounds Skin General skin exam: no rashes or lesions noted Neuro General: patient alert, patient awake and patient oriented x3 Extrem General: normal to inspection, full ROM and no pedal edema Objective Last Vital Signs Temp 36.7 C 01/06/23 08:02 Pulse 106 H 01/06/23 08:02 Resp 24 01/06/23 08:02 BP 109/76 01/06/23 08:02 Pulse Ox 90 L 01/06/23 08:03 Laboratory Results - last 24 hr 01/05/23 01/05/23 01/05/23 10:40 10:40 10:40 WBC 10.85 H RBC 5.84 H Hgb 17.5 Hct 51.5 H MCV 88 MCH 30.0 MCHC 34.0 RDW 12.9 Plt Count 248 MPV 10.6 Immature Gran % 0.5 Neutrophils % 80.2 Lymphocytes % 8.8 Monocytes % 9.5 Eosinophils % 0.4 Basophils % 0.6 Nucleated RBC % 0.0 Absolute Neutrophils 8.70 H Absolute Lymphocytes 0.95 L Absolute Monocytes 1.03 H Absolute Eosinophils 0.04 Absolute Basophils 0.07 VBG pH 7.35 VBG pCO2 52 H VBG pO2 79 VBG HCO3 29 H VBG Total CO2 25 VBG O2 Saturation 96 VBG Base Excess 3 Sodium 136 Potassium 4.8 Chloride 99 Carbon Dioxide 29.8 Anion Gap 7.2 BUN 10 Creatinine 0.9 Est GFR (CKD-EPI 2020) 98.38 Glucose 137 H Calcium 9.6 Magnesium 2.1 Total Bilirubin 0.4 AST 19 ALT 32 Alkaline Phosphatase 101 Troponin I < 50 NT-Pro-B Natriuret Pep 289 Total Protein 8.0 Albumin 3.9 COVID-19 Source SARS-CoV-2 (PCR) Influenza Type A (PCR) Influenza Type B (PCR) RSV (PCR) 01/05/23 01/05/23 01/06/23 10:58 13:52 10:25 WBC 12.20 H RBC 5.47 Hgb 16.5 Hct 48.6 MCV 89 MCH 30.2 MCHC 34.0 RDW 12.7 Plt Count 231 MPV 9.9 Immature Gran % Neutrophils % Lymphocytes % Monocytes % Eosinophils % Basophils % Nucleated RBC % Absolute Neutrophils Absolute Lymphocytes Absolute Monocytes Absolute Eosinophils Absolute Basophils VBG pH VBG pCO2 VBG pO2 VBG HCO3 VBG Total CO2 VBG O2 Saturation VBG Base Excess Sodium Potassium Chloride Carbon Dioxide Anion Gap BUN Creatinine Est GFR (CKD-EPI 2020) Glucose Calcium Magnesium Total Bilirubin AST ALT Alkaline Phosphatase Troponin I < 50 NT-Pro-B Natriuret Pep Total Protein Albumin COVID-19 Source Nasopharynx SARS-CoV-2 (PCR) Negative Influenza Type A (PCR) Negative Influenza Type B (PCR) Negative RSV (PCR) Negative Time Spent with Patient Time Spent with Patient: 25-34 minutes Time was spent: preparing to see the patient(eg.review tests), obtaining and/or reviewing separately otained hiistory, ordering medications,tests, procedures, referring, communicating with other health school child care attendant, indepentently interpreting results and counseling the patient
[2023-01-06] MEDS: Enoxaparin 40 MG/0.4 ML SYR SC (11:00)
[2023-01-06] MEDS: Furosemide 40 MG/4 ML VIAL IVP (11:00)
[2023-01-06] MEDS: metFORMIN 500 MG TAB PO ×2 (11:00→16:43)
[2023-01-06 11:13] LABS: Procalcitonin < 0.1 ng/mL
[2023-01-06] MEDS: Insulin Aspart 300 UNITS/3 ML PEN SC ×2 (13:03→16:54)
--- NOTE | 2023-01-06 14:21 | INITIAL_ITS ---
- If Service Date Differs Date of service: 01/06/23 Time of Service: 14:21 Care Management Initial Assess REASON FOR HOSPITALIZATION:: COPD Exacerbation PAST MEDICAL HISTORY/PAST SURGICAL HISTORY:: All Active Problems. DVT prophylaxis (Acute). Discharge planning issues (Acute). Unintentional weight loss (Acute). Advance care planning (Acute). Peripheral neuropathic pain (Acute). Pain (Acute). Encounter for palliative care (Acute). Palliative care status (Acute). Encounter for hospice care discussion (Acute). Oxygen dependent (Acute). Nightmares (Acute). Full code status (Acute). Need for home health care (Acute). COPD (chronic obstructive pulmonary disease) (Chronic). Altered mental status (Acute). Ambulatory dysfunction (Acute). Adult failure to thrive (Acute). Bullae (Acute). Cigarette smoker (Acute). Cognitive impairment (Chronic). Ambulatory dysfunction (Chronic). Current smoker (Acute). Lung bullae (Acute). Musculoskeletal chest pain (Chronic). Lethargy (Acute). BPH (benign prostatic hyperplasia) (Chronic). Lung disease (Acute). Arthritis (Acute). Diabetes (Chronic). COPD exacerbation (Acute). Noncompliance with medication regimen (Acute). Depression (Chronic). UTI (urinary tract infection) (Acute). Polysubstance abuse (Chronic). Confusion (Acute). Orthostatic hypotension (Acute). PTSD (post-traumatic stress disorder) (Chronic). Discharge planning issues (Acute). Ambulatory dysfunction (Acute). Dyspnea (Acute). COPD (chronic obstructive pulmonary disease) (Chronic). DVT prophylaxis (Acute). Left rib fracture (Acute). Rib fracture (Acute). Syncope (Chronic). Severe chronic obstructive pulmonary disease (Chronic). Biventricular implantable cardioverter-defibrillator (ICD) in situ (Chronic). Mode:DDD, Low rate 60bpm, Atrial lead: medtronic 5076, SN: [id number] 09/27/14; RV lead Medtronic 6935M SN: [id number] 09/27/14; LV lead Medtronic 4396, SN; [id number] 09/27/14 (updated 03/11/20). Systolic and diastolic CHF, chronic (Chronic). LBBB (left bundle branch block) (Chronic). Nonischemic dilated cardiomyopathy (Chronic). Medical History. Acquired deformity of left hand. Agoraphobia. Anxiety. Anxiety with depression. Cardiomyopathy. Chest pain. CHF (congestive heart failure). Chronic pain syndrome. Constipation. Cyst. Diarrhea. Dizziness. DVT prophylaxis. Elevated d-dimer. Erectile dysfunction. Fatigue. Hallucination. Hand paresthesia. Heart disease. History of suicidal ideation. History of tobacco abuse. Hyperlipidemia. Impacted ear wax. Metacarpophalangeal joint pain. Musculoskeletal chest pain. Pacemaker. Pain in right hip. Panic anxiety syndrome. Skin lesion. Tobacco use. Surgical History. Status post biventricular pacemaker PREVIOUS FUNCTIONAL STATUS/SOCIAL/FAMILY SUPPORTS:: William lives alone in a two story home in [place], [place]. 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 He previously enjoyed hunting, fishing, target shooting, and wood working, but his recreation has been reduced due to his declining health. He is supported by MUSCULOSKELETAL PHYSIOTHERAPIST in the community, and he is closely followed by Palliative care. He is independent with ADL's at baseline, and is oxygen dependent. CURRENT FUNCTIONAL STATUS:: William was sitting up on the edge of the bed when CM met with her. He stated that he is feeling very weak, and short of breath. CM discussed discharge plans, anticipating that he will be discharge ready in a short period of time, and he stated that he does not feel ready to discharge today, and is not sure if he will return home vs go to a SNF upon discharge. CM requested a PT consult, due to weakness. CM will continue to follow. ADVANCE DIRECTIVES:: [employer] form on file, Toña Orosco listed as agent. Has patient been provided with info about the portal/API?: Yes Did the patient sign up for the portal?: No CODE STATUS:: Full Code INSURANCE COVERAGE / FINANCIAL ISSUES:: [facility] CURRENT HOME/COMMUNITY SERVICES/EQUIPMENT:: MUSCULOSKELETAL PHYSIOTHERAPIST, HH RN, Palliative care PRIMARY CARE PHYSICIAN:: Lorrie Crespo POTENTIAL DISCHARGE NEEDS:: Evaluations for further needs, follow up appointments. PATIENT/FAMILY EDUCATION NEEDS:: Review discharge instructions and limitations, discussion of self care needs including ask me three. ANTICIPATED BARRIERS TO DISCHARGE:: None identified. TRANSPORTATION:: Via [facility] private vehicle. PLAN:: Anticipate William will return home when medically cleared, with a resumption of services. CM will coordinate [facility] private vehicle when ready. He will follow up with MUSCULOSKELETAL PHYSIOTHERAPIST, Palliative care, his PCP, and discharge plan of care. CM will continue to follow.
--- NOTE | 2023-01-06 16:05 | TELEP.MEDR_ITS ---
Date of service: 01/06/23 Time of Service: 16:05 [facility] Home Med Rec Allergies Allergies: No Known Allergies Allergy (Unverified 03/28/22 12:26) Interview Person Interviewed: patient Quality Quality of Interview/Accuracy of Medication List: Poor Sources Sources used to compile medication list: [facility] Medication List, Retail Pharmacy and [employer] Changes made to Home Medication List: ADDITIONS: none DELETIONS: none CHANGES: none Additional Notes Additional Notes: the following medications are consistent with the retail/ [employer] data:Tamsulosin 0.4mg, Clonazepam 1mg, montelukast 10mg, bupropion XL 300mg, albuterol MDI, Pravastatin , Pantoprazole, Duoneb, Symbicort,Buprenorphine 7.5 mg patch levofloxacin, Prednisone 20mgmorphine oral solutions the following medication discrepancies were noted between [employer] and [employer]: Quetiapine is 200mg in [facility] and [employer] shows active dispenses on 12/23/2022 for a 28 day supply of both 400mg and 50mg tablets but no order for 200mg. Benztropine is entered twice in [employer] for 1mg in the am and 1 mg nightly [employer] only has a single entry for 1 mg daily and a 28 tablet for 28 days dispensed on 12/23/2022.Buprenophine patch a 7.5mcg patch appears in [employer] and an additional 5mcg patch appears in [employer] with a dispense 30day supply on 12/22/2022, Gabapentin is in [employer] as 300mg three times daily and in [employer] as #56 for 28 day supply on 12/22/2022. the following medications have not been refilled since last year Azithromycin 06/15, Prednisone 5mg 06/15, morphine 15mg tablets 09/15, nicotine inhaler 09/15, lorazepam 10/15, ondansetron 10/15, there is no dispensing history for the following medications Jardiance, famotidine, calcium carbonate, guiafenesin liquid, naloxone , nicotine patch, prednisone 10mg, or sennosides Recommended Changes Recommended Changes(reason for recommendation): none Attestation: The home medication list is now updated to the best of my knowledge and is ready to be reconciled by the provider. Please contact the [facility] Medication Reconciliation Pharmacist at for any questions.
--- NOTE | 2023-01-06 16:05 | TELEP.MEDREC ---
Date of service: 01/06/23 Time of Service: 16:05 [facility] Allergies Allergies: No Known Allergies Allergy (Unverified 03/28/22 12:26) Interview Person Interviewed: patient Quality Quality of Interview/Accuracy of Medication List: Poor Sources Sources used to compile medication list: [facility] Medication List, Retail Pharmacy and [employer] Changes made to Home Medication List: ADDITIONS: none DELETIONS: none CHANGES: none Additional Notes Additional Notes: the following medications are consistent with the retail/ [employer] data:Tamsulosin 0.4mg, Clonazepam 1mg, montelukast 10mg, bupropion XL 300mg, albuterol MDI, Pravastatin , Pantoprazole, Duoneb, Symbicort,Buprenorphine 7.5 mg patch levofloxacin, Prednisone 20mgmorphine oral solutions the following medication discrepancies were noted between [facility] and [employer]: Quetiapine is 200mg in [facility] and [facility] shows active dispenses on 12/23/2022 for a 28 day supply of both 400mg and 50mg tablets but no order for 200mg. Benztropine is entered twice in [facility] for 1mg in the am and 1 mg nightly [facility] only has a single entry for 1 mg daily and a 28 tablet for 28 days dispensed on 12/23/2022.Buprenophine patch a 7.5mcg patch appears in [facility] and an additional 5mcg patch appears in [facility] with a dispense 30day supply on 12/22/2022, Gabapentin is in [facility] as 300mg three times daily and in [employer] as #56 for 28 day supply on 12/22/2022. the following medications have not been refilled since last year Azithromycin 06/15, Prednisone 5mg 06/15, morphine 15mg tablets 09/15, nicotine inhaler 09/15, lorazepam 10/15, ondansetron 10/15, there is no dispensing history for the following medications Jardiance, famotidine, calcium carbonate, guiafenesin liquid, naloxone , nicotine patch, prednisone 10mg, or sennosides Recommended Changes Recommended Changes(reason for recommendation): none Attestation: The home medication list is now updated to the best of my knowledge and is ready to be reconciled by the provider. Please contact the [facility] Medication Reconciliation Pharmacist at for any questions.
--- NOTE | 2023-01-06 18:36 | W.PALLCONSUL ---
Date of service: 01/06/23 Time of Service: 14:00 History of Present Illness Narrative: Mr. Thomas is a 57 y/o M currently inpatient at [facility] 2/2 SOB/weakness; PMHx sig for end stage COPD, depression, anxiety, PTSD, pacemaker Presented to the emergency room after 4 days of increasing weakness, dyspnea, and lethargy. ED work up Patient's laboratories note white count of 10, hematocrit 51, platelets 248.? Venous blood gas shows PCO2 of 52.? Basic chemistries unremarkable, LFTs within normal limits, troponin negative, BNP of 289.? Viral respiratory panel was negative.? Chest x-ray without focal infiltrate. transferred inpatient for observation d/t increased fragility William was sitting on side of bed during visit, concerned over not having liquid morphine available for dyspnea. He continues to feel weak, does not feel safe returning home at this time. Is unsure if he would want a PT consult for assessment. Appetite appropriate. He has moved his bowels, weakness limits ability to perform ADLs. Chronic pain persists. he has some concerns over returning home and not having the energy to start [employer] for his heat source, and the snow blocking his home. per staff: His blood sugars have been elevated, plan to start metformin for diagnosis of diabetes, managing with insulin at this time William already has significant supports with [facility], [facility] and palliative care. Is on [facility] COMMISSION[employer] through [facility]; The services will all continue Assessment and Plan Assessment and plan (1) COPD exacerbation: Status: Acute Assessment and plan: continue scheduled + prn nebs, prednisone burst. no evidence of pneumonia by cxr, no fever, hemodynamically stable covid/flu/rsv negative add procal - reviewed exacerbation in relation to disease progression (2) Dyspnea: Status: Acute Assessment and plan: Provided reassurance that morphine available as needed for dyspnea Recommend change to every hour as needed if every 3 interval to long (3) Diabetes: Status: Chronic Assessment and plan: New diagnosis for William, he is unsure of his previous medications. Agreeable to start medication (4) Ambulatory dysfunction: Status: Acute Assessment and plan: Reviewed and recommend PT consult during inpatient stay, he is unsure at this time Continue to review (5) COPD (chronic obstructive pulmonary disease): Status: Chronic Assessment and plan: End-stage Hospice eligible, pending his acceptance, will continue care plan outpatient (6) Pain: Status: Acute Assessment and plan: Morphine available as needed Continue buprenorphine 7.5 mcg patch Consider morphine pump to align with outpatient goals (7) Palliative care status: Status: Acute Assessment and plan: PC to continue to follow during inpatient, as able (8) Oxygen dependent: Status: Acute Assessment and plan: At baseline (9) Full code status: Status: Acute Assessment and plan: Discussion regarding Code Status preferences - patient wants to be a Full Code (10) Need for home health care: Status: Acute Assessment and plan: Established with [facility] ([facility] COMM[facility]ION[facility]), [facility] and [facility] now working to pay caregiver for additional home support, need for f/u (11) Adult failure to thrive: Status: Acute (12) Biventricular implantable cardioverter-defibrillator (ICD) in situ: Status: Chronic Assessment and plan: Did not discuss (13) Advance care planning: Status: Acute Assessment and plan: -William comfortable remaining in hospital at this time, would like to feel stronger prior to discharge home. Reviewed some strategies to have assistance at home when he arrives, i.e. woodstove going and snow removed -William's anxiety limits his ability to have long conversations regarding his goals of care, recommend slow thoughtful conversations centered around goals of staying home, controlling symptoms, and quality of life (14) Anxiety: Assessment and plan: his anxiety limits the amount of information he is able to process a one-time, it also increases his confusion and ability to absorb new information Outpatient scheduled clonazepam twice daily Review of Systems Narrative: as per HPI PFSH All Active Problems (Updated 01/07/23 @ 14:20 by Lore Lynne MD) Chest pain (Acute) Chronic respiratory failure with hypoxia and hypercapnia (Chronic) COPD exacerbation (Acute) DVT prophylaxis (Acute) Discharge planning issues (Acute) Unintentional weight loss (Acute) Advance care planning (Acute) Peripheral neuropathic pain (Acute) Pain (Acute) Encounter for palliative care (Acute) Palliative care status (Acute) Encounter for hospice care discussion (Acute) Oxygen dependent (Acute) Nightmares (Acute) Full code status (Acute) Need for home health care (Acute) COPD (chronic obstructive pulmonary disease) (Chronic) Altered mental status (Acute) Ambulatory dysfunction (Acute) Adult failure to thrive (Acute) Bullae (Acute) Cigarette smoker (Acute) Cognitive impairment (Chronic) Ambulatory dysfunction (Chronic) Current smoker (Acute) Lung bullae (Acute) Musculoskeletal chest pain (Chronic) Lethargy (Acute) BPH (benign prostatic hyperplasia) (Chronic) Lung disease (Acute) Arthritis (Acute) Diabetes (Chronic) COPD exacerbation (Acute) Noncompliance with medication regimen (Acute) Depression (Chronic) UTI (urinary tract infection) (Acute) Polysubstance abuse (Chronic) Confusion (Acute) Orthostatic hypotension (Acute) PTSD (post-traumatic stress disorder) (Chronic) Discharge planning issues (Acute) Ambulatory dysfunction (Acute) Dyspnea (Acute) COPD (chronic obstructive pulmonary disease) (Chronic) DVT prophylaxis (Acute) Left rib fracture (Acute) Rib fracture (Acute) Syncope (Chronic) Severe chronic obstructive pulmonary disease (Chronic) Biventricular implantable cardioverter-defibrillator (ICD) in situ (Chronic) Mode:DDD, Low rate 60bpm, Atrial lead: medtronic 5076, SN: [id number] 09/27/14; RV lead Medtronic 6935M SN: [id number] 09/27/14; LV lead Medtronic 4396, SN; [id number] 09/27/14 (updated 03/11/20) Systolic and diastolic CHF, chronic (Chronic) LBBB (left bundle branch block) (Chronic) Nonischemic dilated cardiomyopathy (Chronic) Medical History Acquired deformity of left hand Agoraphobia Anxiety Anxiety with depression Cardiomyopathy Chest pain CHF (congestive heart failure) Chronic pain syndrome Constipation Cyst Diarrhea Dizziness DVT prophylaxis Elevated d-dimer Erectile dysfunction Fatigue Hallucination Hand paresthesia Heart disease History of suicidal ideation History of tobacco abuse Hyperlipidemia Impacted ear wax Metacarpophalangeal joint pain Musculoskeletal chest pain Pacemaker Pain in right hip Panic anxiety syndrome Skin lesion Tobacco use Surgical History Status post biventricular pacemaker Family History Mother , 2008 COPD (chronic obstructive pulmonary disease) Social History Smoking/Tobacco Use Status: Former Tobacco Use Quit Date: 03/08/22 Pack-years: 120 Smoking risk assessment performed?: Yes Alcohol Intake: former Drug use: Never Substance use type: does not use Household members: none Pets and animals: No What type of physical activity do you participate in: none Seatbelt use: always Do you feel safe at home: Yes Do you feel safe in your relationship?: Yes Additional Social history: lives alone Exam Const General: cooperative, comfortable, no acute distress and ill appearing chronically Nutritional Appearance: overweight Limitations: behavioral limitations HENMT Head: normal to inspection, normocephalic and atraumatic Ears: hearing grossly normal bilaterally Resp Effort & Inspection: able to speak in complete sentences, labored, tachypneic and tripod positioning Psych Appearance: grossly normal Speech and Movement: speech clear Mood: congruent mood Affect: normal affect and anxious affect Attitude: cooperative Thought Process: impoverished and loose association Thought Content: normal Insight: limited Judgment: limited Results Last Vital Signs Temp 97.5 F L 01/06/23 15:45 Pulse 95 H 01/06/23 15:45 Resp 17 01/06/23 15:45 BP 116/75 01/06/23 15:45 Pulse Ox 96 01/06/23 15:45 Labs 01/06/23 10:25 01/05/23 10:40 Labs: Laboratory Results - last 24 hr 01/06/23 01/06/23 10:25 10:25 WBC 12.20 H RBC 5.47 Hgb 16.5 Hct 48.6 MCV 89 MCH 30.2 MCHC 34.0 RDW 12.7 Plt Count 231 MPV 9.9 Procalcitonin < 0.1
[2023-01-06] MEDS: Benztropine 1 MG TAB PO (21:07)
[2023-01-06] MEDS: Tamsulosin 0.4 MG CAPCR PO (21:07)
[2023-01-06] MEDS: Polyethylene Glycol 3350 17 GM PACKET PO (21:08)
[2023-01-06] MEDS: Pravastatin 20 MG TAB PO (21:08)
[2023-01-07] VITALS (14 sets, daily range): BP systolic 114–132; BP diastolic 71–87; PULSE 60–118; RESP 3–26; TEMP 36.4–37; O2SAT 95–102
[2023-01-07] MEDS: Albuterol/Ipratropium 3 ML UPD VIAL IH ×4 (07:48→19:48)
[2023-01-07] MEDS: Budesonide/Formoterol 80/4.5 6.9 GM 60 PUFF INH IH ×2 (07:55→19:47)
[2023-01-07 08:36] LABS: Abs Immature Grans 0.04 10^3/uL (0.0-0.06); Absolute Basophil Count 0.05 10^3/uL (0.0-0.2); Absolute Eosinophil Count 0.08 10^3/uL (0.0-0.7); Absolute Lymphocyte Count 1.87 10^3/uL (1.2-3.4); Absolute Monocyte Count 1.09 10^3/uL (0.1-0.8); Absolute Neutrophil Count 7.19 10^3/uL (1.2-6.7); Basophils % 0.5; Eosinophils % 0.8; HCT 51.2 % (40.0-50.0); Immature Grans % 0.4; Lymphocytes % 18.1; MCH 29.7 pg (27.0-33.0); MCHC 33.2 % (32.0-36.0); MCV 89 fL (80-95); MPV 10.4 fL (8.0-11.0); Monocytes % 10.6; Neutrophils % 69.6; Platelet Count 199 10^3/uL (130-400); RBC 5.73 10^6/uL (4.36-5.78); RDW 12.8 % (11.8-14.1); RDW-SD 41.9 fL; WBC 10.32 10^3/uL (4.4-10.8)
[2023-01-07] MEDS: Polyethylene Glycol 3350 17 GM PACKET PO ×2 (08:40→19:47)
[2023-01-07] MEDS: buPROPion-XL 150 MG TABCR 300 MG PO (08:54)
[2023-01-07] MEDS: Gabapentin 300 MG CAP PO ×3 (08:54→19:48)
[2023-01-07] MEDS: metFORMIN 500 MG TAB PO ×2 (08:54→17:11)
[2023-01-07] MEDS: predniSONE 20 MG TAB 40 MG PO (08:54)
[2023-01-07] MEDS: Montelukast 10 MG TAB PO (08:54)
[2023-01-07] MEDS: Acetaminophen 325 MG TAB PO (08:54)
[2023-01-07] MEDS: Enoxaparin 40 MG/0.4 ML SYR SC (08:55)
[2023-01-07] MEDS: Pantoprazole 40 MG TABCR PO (08:55)
[2023-01-07] MEDS: clonazePAM 1 MG TAB PO ×2 (08:55→19:48)
[2023-01-07] MEDS: levoFLOXacin 500 MG TAB PO (08:55)
[2023-01-07 08:56] LABS: Anion Gap 8.1 mmol/L (3-11); BUN 23 mg/dL (7-18); CO2 30.9 mmol/L (21.0-32.0); CREATININE 1.1 mg/dL (0.70-1.30); Calcium 9.7 mg/dL (8.5-10.1); Chloride 98 mmol/L (98-107); Estimated GFR 77.33 (mL/min/1.73m2); Glucose 148 mg/dL (74-106); Magnesium 2.1 mg/dL (1.8-2.4); Potassium 3.7 mmol/L (3.5-5.1); Sodium 137 mmol/L (136-145)
--- NOTE | 2023-01-07 10:15 | RT.EKG_ITS ---
APPROVED REPORT Exam: Resting ECG Reason for Exam: chest pain Patient Location: I HR:104 bpm ECG Measurements Heart Rate 104 AXIS AK 138 P -11 QRSd 126 QRS -80 QT 363 T 30 QTc 478 Conclusion Atrial-sensed ventricular-paced rhythm...ventricular pacing tracks p-waves No further analysis attempted due to paced rhythm
[2023-01-07 11:24] LABS: Troponin I < 50 ng/L (<or=60)
--- NOTE | 2023-01-07 11:57 | W.DIABETESNO ---
Date of service: 01/07/23 Time of Service: 11:57 Diabetes Note Reason for Visit: dm2 NOTE: Received Dm education consult. William admitted with end stage COPD (taking steriods), hospice pending. Newly diagnosed with DM2 with A1C of 6.5%. Has started metformin 500 mg BID. Expect metformin to treat DM adequately, no diet education needed at this time. Currently BMI wnl and meeting 100% nutrient and fluid needs. Will be available prn. Time Spent in Nutritional Counseling and Treatment: 0
--- NOTE | 2023-01-07 12:08 | PDOC.CMPRO ---
- If Service Date Differs Date of service: 01/07/23 Time of Service: 12:08 Care Management Progress Note S/O: William was sitting up on the edge of the bed when CM met with him. He stated that he feels like he was hit by a truck. He stated that he was having chest pain earlier, and he feels very overwhelmed by his overall health condition. CM discussed his supports including his therapist, Toña, as well as Shanique from Palliative care who met with him yesterday. He stated that he spoke to Toña yesterday, and let her know that he is in the hospital. He also stated that he talked to Davina from the [facility] care bed, and feels that he may benefit from a short stay at the care bed prior to returning home. CM will reach out to the care bed to see if this is an option. CM will continue to follow. A: William is a 57 year old male admitted to [facility] on 01/06/23 for COPD exacerbation. P: Anticipate William will return home when medically cleared, with a resumption of services. CM will coordinate [facility] private vehicle when ready. He will follow up with ENVIRONMENTAL STUDIES DEPARTMENT CHAIR, Palliative care, his PCP, and discharge plan of care. CM will continue to follow.
[2023-01-07] MEDS: Insulin Aspart 300 UNITS/3 ML PEN SC ×2 (12:34→17:11)
--- NOTE | 2023-01-07 13:30 | RT.EKG_ITS ---
APPROVED REPORT Exam: Resting ECG Reason for Exam: chest pain Patient Location: I HR:99 bpm ECG Measurements Heart Rate 99 AXIS WV 154 P 83 QRSd 112 QRS 113 QT 362 T 63 QTc 465 Conclusion Atrial-sensed ventricular-paced rhythm...ventricular pacing tracks p-waves No further analysis attempted due to paced rhythm
--- NOTE | 2023-01-07 13:56 | W.PM.PROGNOT ---
Date of Service Date of service: 01/07/23 Time of Service: 09:00 Assessment and Plan Assessment and plan (1) COPD exacerbation: Status: Acute Assessment and plan: Improving. No evidence of PNA. D/c levofloxacin. Procalcitonin negative. Continue scheduled and prn bronchodilators, symbicort, mucinex, prednisone. Covid/flu/rsv negative. (2) Chest pain: Status: Acute Assessment and plan: Difficult to interpret EKG due to paced rhythm. 1st troponin negative. Await 2nd troponin. Continue to monitor on tele. obtain echo. Does not appear to have been an AICD discharge based on the interrogation report that I got. (3) Chronic respiratory failure with hypoxia and hypercapnia: Status: Chronic Assessment and plan: As above On his baseline oxygen at this time. (4) Nonischemic dilated cardiomyopathy: Status: Chronic Assessment and plan: S/p AICD. INterrogated today: no events since september of 2022, if the report interpretation is correct. I do not think that chest pain today was due to an AICD discharge. I think he could use another dose of furosemide based on my exam today. Last echo was on 04/06/22. LVEF was 40-45%, global hypokinesis, RVSP could not be estimated. Should have one repeated now. Continue to monitor I/O's and daily weights. (5) BPH (benign prostatic hyperplasia): Status: Chronic Assessment and plan: continue flomax (6) Diabetes: Status: Chronic Assessment and plan: A1C 6.5 in Oct 2022 doing well on metformin and carb consistent diet, even on steroids. (7) DVT prophylaxis: Status: Acute Assessment and plan: Sc lovenox (8) Discharge planning issues: Status: Acute Assessment and plan: Full code PT, Palliative care consulted. Continues to require hospitalization. On discharge home, would need resumption of services Subjective Subjective Interval history since last seen: Mr Gay states that he had an episode of a central chest pain today that felt like burning punch. He cannot tell me how long ago this was or how long it lasted, other than to say that it was this morning. He denies heartburn. Denies dizziness, chest pain currently, states his shortness of breath is actually getting better. Denies n/v/abdominal pain. Exam Narrative Exam Narrative: General: Pleasant middle-aged male who is A&Ox3, somnolent, but arousable, cooperative, at his baseline mental status HEENT: EOMI, MMM Heart: RRR, no m/r/g Lungs: expiratory wheezing + rales at B bases Abdomen: soft, nontender, nondistended Extremities: no edema BLEs Objective Last Vital Signs Temp 36.8 C 01/07/23 11:27 Pulse 104 H 01/07/23 13:05 Resp 16 01/07/23 13:05 BP 122/73 01/07/23 11:27 Pulse Ox 97 01/07/23 13:05 Laboratory Results - last 24 hr 01/07/23 01/07/23 01/07/23 08:12 08:12 10:45 WBC 10.32 RBC 5.73 Hgb 17.0 Hct 51.2 H MCV 89 MCH 29.7 MCHC 33.2 RDW 12.8 Plt Count 199 MPV 10.4 Immature Gran % 0.4 Neutrophils % 69.6 Lymphocytes % 18.1 Monocytes % 10.6 Eosinophils % 0.8 Basophils % 0.5 Nucleated RBC % 0.0 Absolute Neutrophils 7.19 H Absolute Lymphocytes 1.87 Absolute Monocytes 1.09 H Absolute Eosinophils 0.08 Absolute Basophils 0.05 Sodium 137 Potassium 3.7 D Chloride 98 Carbon Dioxide 30.9 Anion Gap 8.1 BUN 23 H Creatinine 1.1 Est GFR (CKD-EPI 2020) 77.33 Glucose 148 H Calcium 9.7 Magnesium 2.1 Troponin I < 50 Objective Narrative Objective Narrative: EKG: Atrially sensed ventricular-paced rhythm, HR 104 AICD interrogation: per my interpretation of the interrogation report, it looks like the last time the patient had any events recorded was 04/05/22: 2 NSVT + 2 SVT. Further information was not provided. Time Spent with Patient Time Spent with Patient: 35-49 minutes Time was spent: preparing to see the patient(eg.review tests), obtaining and/or reviewing separately otained hiistory, ordering medications,tests, procedures, referring, communicating with other health neonatal critical care nurse, indepentently interpreting results, counseling the patient and care coordination
[2023-01-07 14:24] LABS: Troponin I < 50 ng/L (<or=60)
[2023-01-07] MEDS: Normal Saline Flush 10 ML SYR IVP (14:47)
[2023-01-07] MEDS: Furosemide 20 MG/2 ML VIAL IVP (14:47)
--- NOTE | 2023-01-07 15:06 | PT.INNT ---
Date of service: 01/07/23 Time of Service: 15:07 PT Notes Visit Reasons: COPD Exac 01/07/2023 Patient refused afternoon PT session, stating I can't do another one today. I will tomorrow. Will attempt to resume PT services tomorrow morning.
--- NOTE | 2023-01-07 15:25 | DI.US_ITS ---
APPROVED REPORT EXAM: Comprehensive 2D, Doppler, and color-flow Echocardiogram Patient Location: In-Patient Room/Bed: 229 Loss Control Engineer: Bina Giordano RDCS (AE) Indications: non ischemic cardiomyopathy, Chest pain, AICD Other Information Study Quality: Fair. Technically limited study due to body habitus,exam done bedside.Technically limi masha parasternal imaging. Conclusion Technically suboptimal Left ventricle is grossly normal in size. Systolic function is mildly reduced. EF is 50 to 55%. No segmental wall motion abnormalities are noted. Septal motion is paradoxic Right ventricle is normal in size and systolic function Both atria are normal in size Device lead noted in the right heart There is no significant valvular disease Wall motion Left Ventricle Technically limited parasternal views Left ventricular systolic function is borderline. There is no v entricular septal defect visualized. LVEF is 52%. Right Ventricle The right ventricle is normal size. The right ventricular systolic function is normal. Device lead is present in the right ventricle. Atria The left atrium size is normal. The right atrium size is normal. The interatrial septum is intact wit h no evidence for an atrial septal defect. Aortic Valve Aortic valve is grossly normal in structure. Aortic valve is probably trileaflet. There is no aortic valvular stenosis. No aortic regurgitation is present. Mitral Valve Mild mitral annular calcification. No evidence of mitral valve stenosis. Trace mitral regurgitation. Tricuspid Valve The tricuspid valve is normal in structure. There is no tricuspid valve stenosis. Trace tricuspid reg urgitation. Unable to assess PA pressure. Pulmonic Valve Pulmonic valve is not well visualized. There is no pulmonic valvular stenosis. There is no pulmonic v alvular regurgitation. Great Vessels The aortic root is normal in size. The ascending aorta is normal in size. IVC is normal in size and c ollapses >50% with inspiration. Pericardium There is no pericardial effusion. 2D Dimensions Ao Root d 2.91 cm M: 3.1 - 3.7 LV Vol A2C d MOD 114.7 mL RA Area A4C 9.61 cm2 LV Vol A4C d MOD 78.8 mL RA Vol/ BSA A4C s A-L 10.8 mL/m2 LA vol/ BSA A2C s A-L 13.1 mL/m2 Ao Asc Diam d 3.02 cm M: 2.6 - 3.4 LA vol/ BSA A4C s A-L 10.9 mL/m2 LVEF (Richards's) 52.27 % M: 52 - 72 LA Vol/ BSA Biplane s A-L 12.0 mL/m2 LV Volume 76.92 mL M: 62 - 150 LA Area A4C s MOD 10.82 cm2 LV Volume Index 40.06 mL/m2 M: 34 - 74 LA Area A2C s MOD 11.88 cm2 LV Vol Biplane MOD 101.1 mL LV EF A4C MOD 50.7 % LV EF A2C MOD 53.7 % LV EF Biplane MOD 52.3 % SV 52.83 mL SV Index 27.58 mL/m2 M-Mode TAPSE 1.63 cm (M/F) >1.7 LV Diastology MV E' medial 0.077 (>0.07 m/s) E/A Ratio 0.6 LV E/e MED 5.65 (<14) MV E Vmax 0.43 (0.4-1.3 m/s) MV E' lateral 0.068 (>0.1 m/s) MV A Vmax 0.75 (0.4-1.3 m/s) LV E/e LAT 6.30 (<14) MV E/A Ratio 0.55 MV E/E' medial 5.66 MV E/E' lateral 6.34 Aortic Valve LVOT Area 4.02 cm2 AoV Area Vmax 3.44 cm2 LVOT Vmax 0.85 m/s AoV Area/ BSA (Vmax) 1.80 cm2/m2 LVOT Mean Haseeb. 0.56 m/s YUAN Mean Haseeb. 3.03 cm2 LVOT Peak Grad 2.9 mmHg YUAN Mean Haseeb. Index 1.58 cm2/m2 LVOT Mean Grad 1.5 mmHg LVOT VTI 0.105 m LVOT Diam s 2.25 cm AoV Vmax 1.00 m/s Velocity Ratio 0.85 AoV Mean Haseeb. 0.74 m/s AoV Peak Grad 4.0 mmHg LVOT SV 42.07 mL AoV Mean Grad 2.5 mmHg AoV VTI 0.120 m AoV Area VTI 3.50 cm2 AoV Area/ BSA (VTI) 1.83 cm/m2 Mitral Valve MV DT 277 (160-240 msec) MV PHT 80 msec MV Area PHT 2.74 cm2 MV VTI 0.106 m MV Area VTI 3.98 (4.0-6.0 cm2) Pulmonary Valve PV Vmax 1.03 (0.5-1.5 m/s) RVOT Peak Gr. 1.71 mmHg PV Peak Grad 4.2 mmHg RVOT Mean Gr. 0.80 mmHg PV Mean Grad 2.1 mmHg RVOT VTI 0.097 m PV VTI 0.127 m RVOT Vmax 0.65 m/s
--- NOTE | 2023-01-07 17:27 | PT.INIE ---
Date of service: 01/07/23 Time of Service: 10:13 PT Notes Visit Reasons: COPD Exac Inpatient Physical Therapy Evaluation Date: 01/07/2023 Referring Doctor: Pham Ngo NP PT Orders: PT CONSULT: Limited ability Precautions: Fall.? Standard.? Activity as tolerated.? Fall, standard Patient Profile/Admitting Diagnosis:? Patient is a 57-year-old male with COPD exacerbation and nonischemic and dilated cardiomyopathy. PMHx: All Active Problems? DVT prophylaxis (Acute) Discharge planning issues (Acute) Unintentional weight loss (Acute) Advance care planning (Acute) Peripheral neuropathic pain (Acute) Pain (Acute) Encounter for palliative care (Acute) Palliative care status (Acute) Encounter for hospice care discussion (Acute) Oxygen dependent (Acute) Nightmares (Acute) Full code status (Acute) Need for home health care (Acute) COPD (chronic obstructive pulmonary disease) (Chronic) Altered mental status (Acute) Ambulatory dysfunction (Acute) Adult failure to thrive (Acute) Bullae (Acute) Cigarette smoker (Acute) Cognitive impairment (Chronic) Ambulatory dysfunction (Chronic) Current smoker (Acute) Lung bullae (Acute) Musculoskeletal chest pain (Chronic) Lethargy (Acute) BPH (benign prostatic hyperplasia) (Chronic) Lung disease (Acute) Arthritis (Acute) Diabetes (Chronic) COPD exacerbation (Acute) Noncompliance with medication regimen (Acute) Depression (Chronic) UTI (urinary tract infection) (Acute) Polysubstance abuse (Chronic) Confusion (Acute) Orthostatic hypotension (Acute) PTSD (post-traumatic stress disorder) (Chronic) Discharge planning issues (Acute) Ambulatory dysfunction (Acute) Dyspnea (Acute) COPD (chronic obstructive pulmonary disease) (Chronic) DVT prophylaxis (Acute) Left rib fracture (Acute) Rib fracture (Acute) Syncope (Chronic) Severe chronic obstructive pulmonary disease (Chronic) Biventricular implantable cardioverter-defibrillator (ICD) in situ (Chronic) Mode:DDD, Low rate 60bpm, Atrial lead: medtronic 5076, SN: [id number] 09/27/14; RV lead Medtronic 6935M SN: [id number] 09/27/14; LV lead Medtronic 4396, SN; [id number] 09/27/14 (updated 03/11/20)Systolic and diastolic CHF, chronic (Chronic) LBBB (left bundle branch block) (Chronic) Nonischemic dilated cardiomyopathy (Chronic) Medical History Acquired deformity of left hand Agoraphobia Anxiety Anxiety with depression Cardiomyopathy Chest pain CHF (congestive heart failure) Chronic pain syndrome Constipation Cyst Diarrhea Dizziness DVT prophylaxis Elevated d-dimer Erectile dysfunction Fatigue Hallucination Hand paresthesia Heart disease History of suicidal ideation History of tobacco abuse Hyperlipidemia Impacted ear wax Metacarpophalangeal joint pain Musculoskeletal chest pain Pacemaker Pain in right hip Panic anxiety syndrome Skin lesion Tobacco use Surgical History? Status post biventricular pacemaker Social History/Home Situation: Patient lives alone in a two-level home with no steps to enter.? He receives assistance from?[employer] multiple times per day.? He is disabled and no longer working.? States that he still has his walker that was given to him previously. No longer works.? On disability. Equipment Owned/DME: FWW (lost his walker per patien today) Subjective:?? Agreeable to PT consult.? Complains of moderate shortness of breath with today's ambulation activity. Denies chest pain, headache, and lightheadedness throughout session Objective:? General Observation: Seated at edge of bed.? Telemetry monitoring placed by nurse student with supervision of nurse Mandujano. On 3 L of oxygen per minute via NC. Mental Status: Alert and oriented as to person and place.? Responses to conversation appropriate.? Able to follow multiple step commands Pain: None reported ROM: Right Upper Extremity: ? Shoulder Flexion WFL. Shoulder abduction WFL. Elbow flexion WFL. Wrist flexion WFL. Functional opening and closing of hand WFL. Left Upper Extremity:? Shoulder Flexion WFL. Shoulder abduction WFL. Elbow flexion WFL. Wrist flexion WFL. Functional opening and closing of hand WFL. Right Lower Extremity: Hip flexion WFL. Hip abduction WFL. Knee flexion WFL. Ankle dorsiflexion WFL. Ankle plantarflexion WFL. Left Lower Extremity: Hip flexion WFL. Hip abduction WFL. Knee flexion WFL. Ankle dorsiflexion WFL. Ankle plantarflexion WFL. Strength: Right Upper Extremity: Shoulder flexors 4-/5. Shoulder abductors 4-/5. Elbow flexors 5/5. Elbow extensors 4-/5. Stencil Machine Operator strong. Left Upper Extremity: Shoulder flexors 4-/5. Shoulder abductors 4-/5. Elbow flexors 5/5. Elbow extensors 4-/5. Stencil Machine Operator strong. Right Lower Extremity: Hip flexors 4-/5. Hip abductors 4-/5. Knee flexors 5/5. Knee extensors 4-/5. Ankle dorsiflexors 4-/5. Ankle plantarflexors 4/5. Left Lower Extremity: Hip flexors 4-/5. Hip abductors 4-/5. Knee flexors 5/5. Knee extensors 4-/5. Ankle dorsiflexors 4-/5. Ankle plantarflexors 4/5. Bed Mobility/Transfers: Supine?sit: stand by assist Sit?supine: stand by assist Sit?stand: contact guard assist stand?sit: contact guard assist Bed to chair: contact guard assist Gait:? Tolerated 200 feet using front wheeled walker with contact guard assist.? Complained of moderate shortness of breath that subsided with rest.? No saturation after activity was 97% and with a heart rate of 105 bpm Balance:? Static Sitting: Normal Dynamic Sitting: Normal Static Standing: Fair Dynamic Standing: Fair 4- stage balance test: Able to maintain feet together and semi-tandem but is unable to do so with full tandem and one-legged stance. Special Tests: Mobility Limitations Standardized Measure [employer]-P[employer] 6 clicks Basic Mobility Inpatient Short Form: Raw Score: 22 ? CMS Score: 21% impairment ? ? ? Informed Consent/Education:? Patient instructed in purpose of PT consult and plan of care. Assessment:? Patient presents with clinical signs and symptoms consistent with diminished functional mobility related to acute medical issues, as demonstrated by the following impairment level findings: 1.? Decreased balance 2.? Decreased lower extremity strength 3.? Decreased upper extremity strength 4.? Shortness of breath Impairments are contributing to the following functional limitations: 1.? Difficulty with ambulation without assistive device 2.? Increased completion time for mobility ADL performance 3.? Increased risk for falls Patient is assessed as a 00213 moderate complexity based on the following: History: 56-year-old male with past medical history as indicated above Examination: Demonstrable impairment in strength, balance, and mobility level with underlying impairments and functional limitations as exhibited above as well as deficit score of 21% utilizing the [facility] [place] Mobility Inpatient Short Form Presentation: Evolving Decision Makin moderate complexity Goals: Goals X1 week 1. Supine-Sit: Independent 2. Sit-Supine: Independent 3. Sit-Stand: Independent 4. Stand-Sit: Independent 5. Bed-Chair: Independent with use of FWW 6. Chair-Bed: Independent with the use of FWW 7. Gait: Supervision x200 feet with FWW 8. Stairs: Supervision on therapeutic stairs x5 9. Independent with home exercise program DISCHARGE RECOMMENDATIONS: [] ? Home with no services [] [X] ? Home with services.? Home when medically cleared by hospitalist.? Patient will benefit from home health PT services in order to progress mobility level using least restrictive assistive ambulatory device, assess home safety, identify additional equipment needs, and establish a functional maintenance program that will increase ability of patient to remain at home. [] ? Home with outpatient PT [] [] ? SNF for continued rehabilitation [] [] ? Program Architect Care [] [] ? SNF versus LTC based on ability to participate and progress [] TREATMENT CODE/TIME: 40903 x 26 minutes beginning at 10:13 AM. Thank you for the opportunity to participate in the care of this patient. Valentine Tavera PT, DPT, CLT [facility] [place], [place]
[2023-01-07] MEDS: Tamsulosin 0.4 MG CAPCR PO (21:13)
[2023-01-07] MEDS: Benztropine 1 MG TAB PO (21:14)
[2023-01-07] MEDS: Pravastatin 20 MG TAB PO (21:14)
[2023-01-08] VITALS (17 sets, daily range): BP systolic 100–136; BP diastolic 67–81; PULSE 47–107; RESP 8–24; TEMP 36.7–37.4; O2SAT 93–101
[2023-01-08 07:19] LABS: Abs Immature Grans 0.04 10^3/uL (0.0-0.06); Absolute Basophil Count 0.04 10^3/uL (0.0-0.2); Absolute Eosinophil Count 0.08 10^3/uL (0.0-0.7); Absolute Lymphocyte Count 1.68 10^3/uL (1.2-3.4); Absolute Neutrophil Count 7.26 10^3/uL (1.2-6.7); Basophils % 0.4; Eosinophils % 0.8; HCT 47.8 % (40.0-50.0); HGB 16.4 g/dL (13.5-17.5); Immature Grans % 0.4; Lymphocytes % 16.6; MCHC 34.3 % (32.0-36.0); MCV 87 fL (80-95); MPV 10.6 fL (8.0-11.0); Monocytes % 9.9; Neutrophils % 71.9; Platelet Count 203 10^3/uL (130-400); RBC 5.47 10^6/uL (4.36-5.78); RDW 12.6 % (11.8-14.1); RDW-SD 41.1 fL
[2023-01-08 07:31] LABS: Anion Gap 7.3 mmol/L (3-11); BUN 21 mg/dL (7-18); CO2 31.7 mmol/L (21.0-32.0); CREATININE 1.1 mg/dL (0.70-1.30); Calcium 9.7 mg/dL (8.5-10.1); Chloride 98 mmol/L (98-107); Estimated GFR 77.33 (mL/min/1.73m2); Glucose 114 mg/dL (74-106); Potassium 3.6 mmol/L (3.5-5.1); Sodium 137 mmol/L (136-145)
[2023-01-08] MEDS: Albuterol/Ipratropium 3 ML UPD VIAL IH ×4 (08:20→19:27)
[2023-01-08] MEDS: Budesonide/Formoterol 80/4.5 6.9 GM 60 PUFF INH IH ×2 (08:22→19:32)
[2023-01-08] MEDS: Enoxaparin 40 MG/0.4 ML SYR SC (08:52)
[2023-01-08] MEDS: buPROPion-XL 150 MG TABCR 300 MG PO (08:52)
[2023-01-08] MEDS: Polyethylene Glycol 3350 17 GM PACKET PO ×2 (08:52→20:03)
[2023-01-08] MEDS: metFORMIN 500 MG TAB PO ×2 (08:52→16:59)
[2023-01-08] MEDS: Acetaminophen 325 MG TAB PO (08:53)
[2023-01-08] MEDS: Gabapentin 300 MG CAP PO ×3 (08:53→20:03)
[2023-01-08] MEDS: clonazePAM 1 MG TAB PO ×2 (08:53→20:03)
[2023-01-08] MEDS: Pantoprazole 40 MG TABCR PO (08:53)
[2023-01-08] MEDS: Montelukast 10 MG TAB PO (08:53)
[2023-01-08] MEDS: predniSONE 20 MG TAB 40 MG PO (08:53)
--- NOTE | 2023-01-08 09:55 | PGE_ITS ---
Date of Service Date of service: 01/08/23 Time of Service: 13:00 Assessment and Plan Assessment and plan (1) COPD exacerbation: Status: Acute Assessment and plan: continue scheduled + prn nebs, prednisone burst. no evidence of pneumonia by cxr, no fever, hemodynamically stable covid/flu/rsv negative procal negative (2) Nonischemic dilated cardiomyopathy: Status: Chronic Assessment and plan: sounds wet on exam today, will give one time dose of IV lasix monitor I&O and weights Echo -EF of 40-45%. RVSP was unable to be calculated AICD in situ (3) BPH (benign prostatic hyperplasia): Status: Chronic Assessment and plan: continue tamsulosin, no sign of urinary retention (4) Diabetes: Status: Chronic Assessment and plan: A1C 6.5 in Oct [address] on diabetic diet anticipate hyperglycemia in setting of steroids. (5) DVT prophylaxis: Status: Acute Assessment and plan: Sc lovenox (6) Discharge planning issues: Status: Acute Assessment and plan: Full code Medsurg observation status. followed by palliative anticipate discharge to home with resumption of services once medically stable. discussed with DR Lynne Subjective Subjective Patient reports: no new complaints, feels better, tolerating liquids well, tolerating a regular diet, voiding w/o difficulty, shortness of breath (with activity but improving and close to baseline) and afebrile Interval history since last seen: no further reports of chest pain Exam Const General: cooperative, comfortable and no acute distress Nutritional Appearance: overweight Orientation: alert, awake and oriented x3 HENMT Head: normal to inspection, normocephalic and atraumatic Mouth: oral mucosae normal Resp Effort & Inspection: normal respiratory effort (shortness of breath on exertion) Auscultation: diminished lung sounds bilaterally and rales bilaterally (bases) Cardio Rate: regular rate Rhythm: regular rhythm GI Inspection: normal to inspection Palpation: soft Auscultation: normal bowel sounds Skin General skin exam: no rashes or lesions noted Neuro General: patient alert, patient awake and patient oriented x3 Extrem General: normal to inspection, full ROM and no pedal edema Objective Last Vital Signs Temp 36.7 C 01/10/23 07:36 Pulse 96 H 01/10/23 08:46 Resp 24 01/10/23 07:36 BP 104/70 01/10/23 07:36 Pulse Ox 97 01/10/23 08:46 Laboratory Results - last 24 hr 01/10/23 01/10/23 06:30 06:30 WBC 9.49 RBC 5.13 Hgb 15.5 Hct 44.9 MCV 88 MCH 30.2 MCHC 34.5 RDW 12.5 Plt Count 182 MPV 10.8 Immature Gran % 0.4 Neutrophils % 68.1 Lymphocytes % 19.0 Monocytes % 10.9 Eosinophils % 0.9 Basophils % 0.7 Nucleated RBC % 0.0 Absolute Neutrophils 6.46 Absolute Lymphocytes 1.80 Absolute Monocytes 1.03 H Absolute Eosinophils 0.09 Absolute Basophils 0.07 Sodium 138 Potassium 3.8 Chloride 101 Carbon Dioxide 31.8 Anion Gap 5.2 BUN 16 Creatinine 0.9 Est GFR (CKD-EPI 2020) 98.38 Glucose 132 H Calcium 9.1 Magnesium 2.1 Time Spent with Patient Time Spent with Patient: 25-34 minutes Time was spent: preparing to see the patient(eg.review tests), obtaining and/or reviewing separately otained hiistory, ordering medications,tests, procedures, referring, communicating with other health managed care manager, indepentently interpreting results and care coordination
[2023-01-08] MEDS: Insulin Aspart 300 UNITS/3 ML PEN SC ×2 (12:24→16:59)
--- NOTE | 2023-01-08 13:25 | PT.INTREAT ---
Date of service: 01/08/23 Time of Service: 11:43 PT Notes Visit Reasons: COPD Exac Inpatient Physical Therapy Treatment Note [facility] Date: 01/08/2023 PRECAUTIONS: Activity as tolerated, monitor SaO2 SUBJECTIVE: William is eventually agreeable to participating in PT. He reports that he is feeling a little better, but continues to feel SOB with activity. OBJECTIVE: PAIN: No c/o pain BED MOBILITY/TRANSFERS Sit-supine: I Sit-supine: I Sit-stand: I Stand-sit: I GAIT Assistive Device: FWW Weight bearing: Full Assist: SBA Distance: 200' Deviation: Slow pacing, standing rest x2, c/o weakness in B LE VITALS: SaO2: 95% on 3L O2 NC with gait training ASSESSMENT: Patient tolerated session with complaint of increased SOB. He was able to tolerate a slight progression in gait distance without assistive device support. He demonstrates independence with transfers and bed mobility at this time. PLAN: Continue with gait training and general conditioning for improved activity tolerance. TREATMENT CODE/TIME: Session 1: 12 minutes; [id number] (11:43) Session 2: Refused
--- NOTE | 2023-01-08 15:08 | CMPROGNOTE_ITS ---
- If Service Date Differs Date of service: 01/08/23 Time of Service: 15:08 Care Management Progress Note S/O: William was sitting up on the edge of his bed when CM met with him. He stated that he is feeling a lot better than yesterday, and he reflected on how he felt worried about his chest pain. He stated that his breathing has been better today, but he still feels weak and can't walk very far without feeling short of breath. Per MD, he is not yet medically cleared. William stated that he doesn't feel ready to return home yet, but he plans to return home. CM will continue to follow. A: William is a 57 year old male admitted to [facility] on 01/06/23 for COPD exacerbation. P: Anticipate William will return home when medically cleared, with a resumption of services. CM will coordinate RCT private vehicle when ready. He will follow up with COMMERCIAL TECHNICIAN, Palliative care, his PCP, and discharge plan of care. CM will continue to follow.
[2023-01-08] MEDS: Pravastatin 20 MG TAB PO (21:28)
[2023-01-08] MEDS: Tamsulosin 0.4 MG CAPCR PO (21:28)
[2023-01-08] MEDS: Benztropine 1 MG TAB PO (21:28)
[2023-01-09] VITALS (14 sets, daily range): BP systolic 114–130; BP diastolic 69–79; PULSE 61–109; RESP 8–25; TEMP 36.1–37.4; O2SAT 92–99
[2023-01-09] MEDS: Polyethylene Glycol 3350 17 GM PACKET PO ×2 (07:52→19:55)
[2023-01-09] MEDS: Enoxaparin 40 MG/0.4 ML SYR SC (07:53)
[2023-01-09] MEDS: Normal Saline Flush 10 ML SYR IVP (07:54)
[2023-01-09] MEDS: Gabapentin 300 MG CAP PO ×3 (07:54→19:53)
[2023-01-09] MEDS: Pantoprazole 40 MG TABCR PO (07:54)
[2023-01-09] MEDS: metFORMIN 500 MG TAB PO ×2 (07:54→17:02)
[2023-01-09] MEDS: buPROPion-XL 150 MG TABCR 300 MG PO (07:54)
[2023-01-09] MEDS: Acetaminophen 325 MG TAB PO (07:55)
[2023-01-09] MEDS: Montelukast 10 MG TAB PO (07:55)
[2023-01-09] MEDS: clonazePAM 1 MG TAB PO ×2 (07:55→19:53)
[2023-01-09] MEDS: predniSONE 20 MG TAB 40 MG PO (07:55)
[2023-01-09] MEDS: Albuterol/Ipratropium 3 ML UPD VIAL IH ×4 (08:33→19:55)
[2023-01-09] MEDS: Budesonide/Formoterol 80/4.5 6.9 GM 60 PUFF INH IH ×2 (08:33→19:54)
--- NOTE | 2023-01-09 10:01 | PT.INTREAT ---
PT Notes Visit Reasons: COPD Exac Inpatient Physical Therapy Treatment Note [facility] Date: 01/09/23 OBJECTIVE: Sit-stand: SBA Stand-sit: SBA GAIT Assistive Device: FWW Weight bearing: full Assist: SBA/CGA Distance: Approx 200ft with 3 L oxygen VITALS: #L oxygen post ambulation 98% oxygen and 114 HR THEREX: LAQ x 10, hip abd x 10, rowing x 10, horz abd x 10. ASSESSMENT: Pt had some SOB with his session today. Pt did have some slight LOB with transfers and walking but was able to correct on his own. PLAN: Cont as per PT POC. TREATMENT CODE/TIME: 9:25-9:40 (15) TA
--- NOTE | 2023-01-09 12:38 | W.PM.DS.N ---
Date of service: 01/09/23 Time of Service: 12:38 DS: Diagnosis Discharge Diagnosis (1) COPD exacerbation: Status: Acute (2) Dyspnea: Status: Acute (3) Diabetes: Status: Chronic (4) Ambulatory dysfunction: Status: Acute (5) COPD (chronic obstructive pulmonary disease): Status: Chronic (6) Pain: Status: Acute (7) Palliative care status: Status: Acute (8) Oxygen dependent: Status: Acute (9) Full code status: Status: Acute (10) Need for home health care: Status: Acute (11) Adult failure to thrive: Status: Acute (12) Biventricular implantable cardioverter-defibrillator (ICD) in situ: Status: Chronic (13) Advance care planning: Status: Acute (14) Anxiety: Discharge Plan Disposition Patient Disposition: Home W/Home Health Services Condition: Improving Condition: Fair Discharge Details Reason For Visit: COPD Exac Admit Date/Time: 01/06/23 17:56 Admit Provider: Lore Lynne Attending Provider: Lore Lynne Primary Care Provider: Lorrie Crespo Home Meds and New Rx's Prescriptions: Continued naloxone 4 mg/actuation spray,non-aerosol 4 mg intranasal Q2M PRN Rx Instructions: spray 1 dose into ONE nostril; alternate nostrils w each dose until help arrives ondansetron 4 mg tablet,disintegrating 4 mg PO Q8H PRN (Reason: nausea and vomiting) Qty: 14 0RF sennosides [senna] 8.6 mg tablet 8.6 mg PO BID PRN (Reason: constipation) Qty: 60 5RF polyethylene glycol 3350 17 gram powder in packet 17 g PO BID Qty: 14 0RF prednisone 10 mg tablet 10 mg PO DAILY Qty: 30 2RF clonazepam 1 mg tablet 1 mg PO BID guaifenesin 100 mg/5 mL liquid 200 mg PO Q4H PRN PRN (Reason: congestion) Qty: 1000 1RF calcium carbonate [Tums] 200 mg calcium (500 mg) tablet,chewable 200 mg PO Q2H WHILE AWAKE PRN (Reason: dyspepsia) Qty: 90 1RF gabapentin 300 mg tablet 300 mg PO Q8H morphine concentrate 100 mg/5 mL (20 mg/mL) solution 7.5 mg PO Q3H MDD 60mg PRN (Reason: pain) Qty: 500 0RF Rx Instructions: for air hunger ipratropium-albuterol 0.5 mg-3 mg(2.5 mg base)/3 mL solution for nebulization 3 ml INHALATION Q6H PRN PRN (Reason: shortness of breath or wheezing) Qty: 180 3RF buprenorphine 7.5 mcg/hour patch weekly 1 patch transdermal Q7D Qty: 4 0RF Rx Instructions: dose increase prednisone 20 mg tablet 40 mg PO DAILY 5 Days Qty: 10 0RF Rx Instructions: COPD exacerbation levofloxacin 500 mg tablet 500 mg PO DAILY 5 Days Qty: 5 0RF pravastatin 20 mg tablet 20 mg PO QHS Qty: 10 0RF pantoprazole 40 mg Tablet,Delayed Release (Dr/Ec) 40 mg PO DAILY@0730 Qty: 30 0RF montelukast 10 mg Tablet 10 mg PO DAILY acetaminophen [Tylenol] 325 mg Capsule 325 mg PO DAILY budesonide-formoterol 80-4.5 mcg/actuation Hfa Aerosol Inhaler 2 puff INHALATION BID bupropion HCl 300 mg tablet extended release 24 hr 300 mg PO DAILY Patient Comments: Take 1 tablet by mouth once a day tamsulosin 0.4 mg capsule 0.4 mg PO HS Patient Comments: 1 tab daily albuterol sulfate [ProAir HFA] 90 mcg/actuation Hfa Aerosol Inhaler 2 puff INHALATION Q4H WHILE AWAKE PRN Rx Instructions: Q4-6H PRN nitroglycerin 0.3 mg Tablet, Sublingual 0.3 mg SUBLINGUAL Q5-15M PRN Rx Instructions: do not exceed 3 doses per episode famotidine 10 mg Tablet 10 mg PO BID PRN benztropine 1 mg Tablet 1 mg PO QHS nicotine 21 mg/24 hr Patch 24 Hour 1 patch transdermal QDAY quetiapine [Seroquel XR] 400 mg tablet extended release 24 hr 400 mg PO HS Rx Instructions: total dose 450 mg quetiapine [Seroquel XR] 50 mg tablet extended release 24 hr 50 mg PO HS Rx Instructions: total dose 450 mg Discharge Instructions Instructions: COPD (Chronic Obstructive Pulmonary Disease) (DC) Additional Instructions: Resume home health services Stand Alone Forms: Nursing Discharge Form Referrals: Audra Yanez MD [ [facility] STAFF PHYSICIAN] - (follow up in the next few weeks) Lorrie Crespo [Primary Care Provider] - (Please call Wednesday to make a follow up for 1-2 weeks) Activity:: Activity as Tolerated Equipment/Supplies:: No Equipment Needed Diet:: Low Sodium Discharge Orders Discharge Orders: Discharge Order (Routine); Ordered 01/09/23 Ordered By: Christie Sanchez DS: Data Vitals/I&O Vitals and I&O: Vital Signs Temperature 36.1 C L 01/09/23 11:28 Temperature Source Tympanic 01/09/23 11:28 Pulse 101 H 01/09/23 11:28 Pulse Rhythm Regular 01/09/23 07:51 Respiratory Rate 24 01/09/23 11:28 Respiratory Effort Normal, Non-Labored 01/09/23 07:51 Respiratory Depth Shallow 01/09/23 07:51 Respiratory Pattern Normal 01/09/23 07:51 Blood Pressure 130/70 01/09/23 11:28 Blood Pressure Position Sitting 01/05/23 10:33 Pulse Oximetry 92 01/09/23 11:28 Oxygen Delivery Method Nasal Cannula 01/09/23 11:28 Oxygen Flow Rate 3 01/09/23 11:28 Pain Level 9 01/09/23 11:31 Comment respiratory changed O2 setting 01/06/23 08:03 Intake & Output 01/08/23 01/09/23 01/09/23 23:59 11:59 23:59 Intake Total 900 / 910 850 / 850 Balance 900 / 910 850 / 850 Weight 81.3 kg Intake: IV 10 Oral 900 / 900 840 / 840 Other: Urine Color Yellow Urine Appearance Clear Clear Voiding Methods Toilet Toilet PFSH All Active Problems (Updated 01/07/23 @ 14:20 by Lore Lynne MD) Chest pain (Acute) Chronic respiratory failure with hypoxia and hypercapnia (Chronic) COPD exacerbation (Acute) DVT prophylaxis (Acute) Discharge planning issues (Acute) Unintentional weight loss (Acute) Advance care planning (Acute) Peripheral neuropathic pain (Acute) Pain (Acute) Encounter for palliative care (Acute) Palliative care status (Acute) Encounter for hospice care discussion (Acute) Oxygen dependent (Acute) Nightmares (Acute) Full code status (Acute) Need for home health care (Acute) COPD (chronic obstructive pulmonary disease) (Chronic) Altered mental status (Acute) Ambulatory dysfunction (Acute) Adult failure to thrive (Acute) Bullae (Acute) Cigarette smoker (Acute) Cognitive impairment (Chronic) Ambulatory dysfunction (Chronic) Current smoker (Acute) Lung bullae (Acute) Musculoskeletal chest pain (Chronic) Lethargy (Acute) BPH (benign prostatic hyperplasia) (Chronic) Lung disease (Acute) Arthritis (Acute) Diabetes (Chronic) COPD exacerbation (Acute) Noncompliance with medication regimen (Acute) Depression (Chronic) UTI (urinary tract infection) (Acute) Polysubstance abuse (Chronic) Confusion (Acute) Orthostatic hypotension (Acute) PTSD (post-traumatic stress disorder) (Chronic) Discharge planning issues (Acute) Ambulatory dysfunction (Acute) Dyspnea (Acute) COPD (chronic obstructive pulmonary disease) (Chronic) DVT prophylaxis (Acute) Left rib fracture (Acute) Rib fracture (Acute) Syncope (Chronic) Severe chronic obstructive pulmonary disease (Chronic) Biventricular implantable cardioverter-defibrillator (ICD) in situ (Chronic) Mode:DDD, Low rate 60bpm, Atrial lead: medtronic 5076, SN: [id number] 09/27/14; RV lead Medtronic 6935M SN: [id number] 09/27/14; LV lead Medtronic 4396, SN; [id number] 09/27/14 (updated 03/11/20) Systolic and diastolic CHF, chronic (Chronic) LBBB (left bundle branch block) (Chronic) Nonischemic dilated cardiomyopathy (Chronic) Medical History Acquired deformity of left hand Agoraphobia Anxiety Anxiety with depression Cardiomyopathy Chest pain CHF (congestive heart failure) Chronic pain syndrome Constipation Cyst Diarrhea Dizziness DVT prophylaxis Elevated d-dimer Erectile dysfunction Fatigue Hallucination Hand paresthesia Heart disease History of suicidal ideation History of tobacco abuse Hyperlipidemia Impacted ear wax Metacarpophalangeal joint pain Musculoskeletal chest pain Pacemaker Pain in right hip Panic anxiety syndrome Skin lesion Tobacco use Surgical History Status post biventricular pacemaker Family History Mother , 2008 COPD (chronic obstructive pulmonary disease) Social History Smoking/Tobacco Use Status: Former Tobacco Use Quit Date: 03/08/22 Pack-years: 120 Smoking risk assessment performed?: Yes Alcohol Intake: former Drug use: Never Substance use type: does not use Household members: none Pets and animals: No What type of physical activity do you participate in: none Seatbelt use: always Do you feel safe at home: Yes Do you feel safe in your relationship?: Yes Additional Social history: lives alone
--- NOTE | 2023-01-09 14:09 | W.PM.PROGNOT ---
Date of Service Date of service: 01/09/23 Time of Service: 14:09 Assessment and Plan Assessment and plan (1) COPD exacerbation: Status: Acute Assessment and plan: Improving. Continues to not have evidence of PNA. Continue scheduled and prn bronchodilators, symbicort, mucinex, prednisone. Covid/flu/rsv negative. Unable to be discharged home today s/t no services available; care program director states no home health available and he does have [facility] services ([facility]) also not avail until at least Wednesday. He does not have a safe discharge plan and therefore will not be discharged until the earliest is Wednesday01/11/23 (2) Chest pain: Status: Acute Assessment and plan: Difficult to interpret EKG due to paced rhythm. Troponin's neg; no CP, no increased SOB obtain echo. Does not appear to have been an AICD discharge based on the interrogation report (3) Chronic respiratory failure with hypoxia and hypercapnia: Status: Chronic Assessment and plan: As above On his baseline oxygen at this time. (4) Nonischemic dilated cardiomyopathy: Status: Chronic Assessment and plan: S/p AICD. Interrogated - no events since September 2022 Last echo was on 04/06/22. LVEF was 40-45%, global hypokinesis, RVSP could not be estimated. Echo repeated : Conclusion Technically suboptimal Left ventricle is grossly normal in size.? Systolic function is mildly reduced.? EF is 50 to 55%.? No segmental wall motion abnormalities are noted.? Septal motion is paradoxic Right ventricle is normal in size and systolic function Both atria are normal in size Device lead noted in the right heart There is no significant valvular disease Continue to monitor I/O's and daily weights. (5) BPH (benign prostatic hyperplasia): Status: Chronic Assessment and plan: continue flomax (6) Diabetes: Status: Chronic Assessment and plan: A1C 6.5 in Oct 2022 doing well on metformin and carb consistent diet, even on steroids. (7) DVT prophylaxis: Status: Acute Assessment and plan: Sc lovenox (8) Discharge planning issues: Status: Acute Assessment and plan: Full code PT, Palliative care consulted. Continues to require hospitalization. On discharge home, would need resumption of services Subjective Subjective Patient reports: no new complaints Interval history since last seen: William states he is unable to go home. Discussed with telesales supervisor; the community resources he usually has are not available until Wednesday and he will not be safe going home until then, he understands this and is in agreement to staying in the hospital until he has a safe discharge plan. Exam Narrative Exam Narrative: General: Pleasant middle-aged male who is A&Ox3, somnolent, but arousable, cooperative, at his baseline mental status HEENT: EOMI, MMM Heart: RRR, no m/r/g Lungs: expiratory wheezing + rales at B bases Abdomen: soft, nontender, nondistended Extremities: no edema BLEs Const General: cooperative, comfortable and no acute distress Nutritional Appearance: overweight Orientation: alert, awake and oriented x3 HENMT Head: normal to inspection, normocephalic and atraumatic Mouth: oral mucosae normal Resp Effort & Inspection: normal respiratory effort (shortness of breath on exertion) Auscultation: diminished lung sounds bilaterally and rales bilaterally (bases) Cardio Rate: regular rate Rhythm: regular rhythm GI Inspection: normal to inspection Palpation: soft Auscultation: normal bowel sounds Skin General skin exam: no rashes or lesions noted Neuro General: patient alert, patient awake and patient oriented x3 Extrem General: normal to inspection, full ROM and no pedal edema Objective Last Vital Signs Temp 36.1 C L 01/09/23 11:28 Pulse 101 H 01/09/23 11:28 Resp 24 01/09/23 11:28 BP 130/70 01/09/23 11:28 Pulse Ox 94 01/09/23 13:30 Time Spent with Patient Time Spent with Patient: 25-34 minutes Time was spent: preparing to see the patient(eg.review tests), obtaining and/or reviewing separately otained hiistory, ordering medications,tests, procedures, referring, communicating with other health floor care specialist, indepentently interpreting results, counseling the patient and care coordination
--- NOTE | 2023-01-09 16:12 | PDOC.CMPRO ---
- If Service Date Differs Date of service: 01/09/23 Time of Service: 16:12 Care Management Progress Note S/O: William was sitting up on the edge of his bed when CM met with him. A discharge order was written and William was told he would be going home. He became anxious and called hid friends at [facility]. CM received a phone call form Addie, CREDENTIALING ASSISTANT python programmer, expressing concern about the discharge plan. She reported that [facility] did not have any staff on the weekend and would not be able to get him his medications or transport him or be available to help him get settled. She was not sure if his home had heat either. Given the complexity of the issues, it was determined that it would be safest if William remained hospitalized until Wednesday. CM explained this to William who expressed relief that he did not have to leave today. CM also spoke to Rosibel Jean, CREDENTIALING ASSISTANT nurse and Lisa Wharton, CREDENTIALING ASSISTANT Electric Deicer Assembler who had all expressed concerns as well. All stated that were in agreement with the plan for William to discharge on Wednesday and that they will provide transportation. A: William is a 57 year old male admitted to [facility] on 01/06/23 for COPD exacerbation. P: Anticipate William will return home when medically cleared, with a resumption of HH services. CM will coordinate RCT private vehicle when ready if CREDENTIALING ASSISTANT unable to transport. He will follow up with CREDENTIALING ASSISTANT, Palliative care, his PCP, and discharge plan of care. CM will continue to follow.
[2023-01-09] MEDS: Acetaminophen 325 MG TAB 650 MG PO (17:02)
[2023-01-09] MEDS: Insulin Aspart 300 UNITS/3 ML PEN SC (17:02)
[2023-01-09] MEDS: Benztropine 1 MG TAB PO (21:47)
[2023-01-09] MEDS: Tamsulosin 0.4 MG CAPCR PO (21:48)
[2023-01-09] MEDS: Pravastatin 20 MG TAB PO (21:48)
[2023-01-10] VITALS (9 sets, daily range): BP systolic 94–135; BP diastolic 57–79; PULSE 57–105; RESP 8–24; TEMP 36.3–37.2; O2SAT 92–98
[2023-01-10 06:44] LABS: Abs Immature Grans 0.04 10^3/uL (0.0-0.06); Absolute Basophil Count 0.07 10^3/uL (0.0-0.2); Absolute Eosinophil Count 0.09 10^3/uL (0.0-0.7); Absolute Monocyte Count 1.03 10^3/uL (0.1-0.8); Absolute Neutrophil Count 6.46 10^3/uL (1.2-6.7); Basophils % 0.7; Eosinophils % 0.9; HCT 44.9 % (40.0-50.0); HGB 15.5 g/dL (13.5-17.5); Immature Grans % 0.4; MCH 30.2 pg (27.0-33.0); MCHC 34.5 % (32.0-36.0); MCV 88 fL (80-95); MPV 10.8 fL (8.0-11.0); Monocytes % 10.9; Neutrophils % 68.1; Platelet Count 182 10^3/uL (130-400); RBC 5.13 10^6/uL (4.36-5.78); RDW 12.5 % (11.8-14.1); RDW-SD 40.4 fL; WBC 9.49 10^3/uL (4.4-10.8)
[2023-01-10 06:55] LABS: Anion Gap 5.2 mmol/L (3-11); BUN 16 mg/dL (7-18); CO2 31.8 mmol/L (21.0-32.0); CREATININE 0.9 mg/dL (0.70-1.30); Calcium 9.1 mg/dL (8.5-10.1); Chloride 101 mmol/L (98-107); Estimated GFR 98.38 (mL/min/1.73m2); Glucose 132 mg/dL (74-106); Magnesium 2.1 mg/dL (1.8-2.4); Potassium 3.8 mmol/L (3.5-5.1); Sodium 138 mmol/L (136-145)
[2023-01-10] MEDS: Polyethylene Glycol 3350 17 GM PACKET PO (07:55)
[2023-01-10] MEDS: Normal Saline Flush 10 ML SYR IVP (07:55)
[2023-01-10] MEDS: Enoxaparin 40 MG/0.4 ML SYR SC (07:55)
[2023-01-10] MEDS: Pantoprazole 40 MG TABCR PO (07:56)
[2023-01-10] MEDS: clonazePAM 1 MG TAB PO ×2 (07:56→19:13)
[2023-01-10] MEDS: Gabapentin 300 MG CAP PO ×3 (07:56→19:13)
[2023-01-10] MEDS: Acetaminophen 325 MG TAB PO (07:57)
[2023-01-10] MEDS: predniSONE 20 MG TAB 40 MG PO (07:57)
[2023-01-10] MEDS: metFORMIN 500 MG TAB PO ×2 (07:57→16:59)
[2023-01-10] MEDS: Montelukast 10 MG TAB PO (07:57)
[2023-01-10] MEDS: buPROPion-XL 150 MG TABCR 300 MG PO (07:58)
[2023-01-10] MEDS: Budesonide/Formoterol 80/4.5 6.9 GM 60 PUFF INH IH ×2 (08:45→19:19)
[2023-01-10] MEDS: Albuterol/Ipratropium 3 ML UPD VIAL IH ×4 (08:46→19:13)
--- NOTE | 2023-01-10 09:58 | W.PM.PROGNOT ---
Date of Service Date of service: 01/10/23 Time of Service: 09:58 Assessment and Plan Assessment and plan (1) COPD exacerbation: Status: Acute Assessment and plan: continue scheduled + prn nebs, prednisone burst taper now. no evidence of pneumonia by cxr, no fever, hemodynamically stable covid/flu/rsv negative procal negative (2) Nonischemic dilated cardiomyopathy: Status: Chronic Assessment and plan: received lasix, no euvolemic Echo -EF of 40-45%. RVSP was unable to be calculated AICD in situ (3) BPH (benign prostatic hyperplasia): Status: Chronic Assessment and plan: continue tamsulosin, no sign of urinary retention (4) Diabetes: Status: Chronic Assessment and plan: A1C 6.5 in [address] on diabetic diet anticipate hyperglycemia in setting of steroids. (5) DVT prophylaxis: Status: Acute Assessment and plan: Sc lovenox (6) Discharge planning issues: Status: Acute Assessment and plan: Full code followed by palliative anticipate discharge to home with resumption of services on Wednesday discussed with DR Putnam Subjective Subjective Patient reports: no new complaints, feels better, tolerating liquids well, tolerating a regular diet, voiding w/o difficulty and afebrile Interval history since last seen: no chest pain, at his baseline Exam Const General: cooperative, comfortable and no acute distress Nutritional Appearance: overweight Orientation: alert, awake and oriented x3 HENMT Head: normal to inspection, normocephalic and atraumatic Mouth: oral mucosae normal Resp Effort & Inspection: normal respiratory effort (shortness of breath on exertion) Auscultation: diminished lung sounds bilaterally and rales bilaterally (bases) Cardio Rate: regular rate Rhythm: regular rhythm GI Inspection: normal to inspection Palpation: soft Auscultation: normal bowel sounds Skin General skin exam: no rashes or lesions noted Neuro General: patient alert, patient awake and patient oriented x3 Extrem General: normal to inspection, full ROM and no pedal edema Objective Last Vital Signs Temp 36.7 C 01/10/23 07:36 Pulse 96 H 01/10/23 08:46 Resp 24 01/10/23 07:36 BP 104/70 01/10/23 07:36 Pulse Ox 97 01/10/23 08:46 Laboratory Results - last 24 hr 01/10/23 01/10/23 06:30 06:30 WBC 9.49 RBC 5.13 Hgb 15.5 Hct 44.9 MCV 88 MCH 30.2 MCHC 34.5 RDW 12.5 Plt Count 182 MPV 10.8 Immature Gran % 0.4 Neutrophils % 68.1 Lymphocytes % 19.0 Monocytes % 10.9 Eosinophils % 0.9 Basophils % 0.7 Nucleated RBC % 0.0 Absolute Neutrophils 6.46 Absolute Lymphocytes 1.80 Absolute Monocytes 1.03 H Absolute Eosinophils 0.09 Absolute Basophils 0.07 Sodium 138 Potassium 3.8 Chloride 101 Carbon Dioxide 31.8 Anion Gap 5.2 BUN 16 Creatinine 0.9 Est GFR (CKD-EPI 2020) 98.38 Glucose 132 H Calcium 9.1 Magnesium 2.1 Time Spent with Patient Time Spent with Patient: 35-49 minutes Time was spent: preparing to see the patient(eg.review tests), obtaining and/or reviewing separately otained hiistory, ordering medications,tests, procedures, indepentently interpreting results and counseling the patient
--- NOTE | 2023-01-10 10:33 | PT.INTREAT ---
PT Notes Visit Reasons: COPD Exac Inpatient Physical Therapy Treatment Note [facility] Date: 01/10/23 OBJECTIVE: Supine-sit: I Sit-stand: SBA Stand-sit: SBA GAIT Assistive Device: FWW Weight bearing: Full Assist: SBA/CGA Distance: Approx 500ft THEREX: Pt was too fatigued from walking. ASSESSMENT: Pt tolerated today's session well he was able to walk farther today. Pt did require short standing rest periods due to SOB. PLAN: Cont as per PT POC. TREATMENT CODE/TIME: 9:40-9:55 (15) TA
[2023-01-10] MEDS: Insulin Aspart 300 UNITS/3 ML PEN SC ×2 (12:11→16:59)
[2023-01-10] MEDS: Pravastatin 20 MG TAB PO (22:18)
[2023-01-10] MEDS: Benztropine 1 MG TAB PO (22:18)
[2023-01-10] MEDS: Tamsulosin 0.4 MG CAPCR PO (22:18)
[2023-01-11 00:05] VITALS: BP 138/81; PULSE 82; RESP 18; TEMP 36.7; O2SAT 97
[2023-01-11 03:28] VITALS: BP 105/62; PULSE 74; RESP 16; TEMP 36.3; O2SAT 98
[2023-01-11 06:38] VITALS: BP 132/84; PULSE 82; RESP 20; TEMP 36; O2SAT 96
[2023-01-11] MEDS: Albuterol HFA 8 GM 60 PUFF INH IH ×2 (06:54→12:25)
[2023-01-11 07:20] VITALS: BP 106/63; PULSE 105; RESP 18; TEMP 36.5; O2SAT 96
[2023-01-11 07:49] VITALS: PULSE 99; RESP 17; RESP 8; O2SAT 95
[2023-01-11] MEDS: Budesonide/Formoterol 80/4.5 6.9 GM 60 PUFF INH IH (07:49)
[2023-01-11] MEDS: Albuterol/Ipratropium 3 ML UPD VIAL IH ×2 (07:49→13:46)
[2023-01-11 07:51] VITALS: PULSE 102; RESP 16; RESP 8; O2SAT 96
[2023-01-11] MEDS: Acetaminophen 325 MG TAB PO (08:54)
[2023-01-11] MEDS: buPROPion-XL 150 MG TABCR 300 MG PO (08:56)
[2023-01-11] MEDS: clonazePAM 1 MG TAB PO (08:57)
[2023-01-11] MEDS: Gabapentin 300 MG CAP PO ×2 (08:59→13:47)
[2023-01-11] MEDS: Enoxaparin 40 MG/0.4 ML SYR SC (08:59)
[2023-01-11] MEDS: metFORMIN 500 MG TAB PO (09:01)
[2023-01-11] MEDS: Montelukast 10 MG TAB PO (09:02)
[2023-01-11] MEDS: Pantoprazole 40 MG TABCR PO (09:03)
[2023-01-11] MEDS: Polyethylene Glycol 3350 17 GM PACKET PO (09:05)
[2023-01-11] MEDS: predniSONE 20 MG TAB 30 MG PO (09:06)
--- NOTE | 2023-01-11 09:32 | PT.INTREAT ---
Date of service: 01/11/23 Time of Service: 09:32 PT Notes Visit Reasons: COPD Exac 01/11/2023 Issued and fit FWW to patient for at home use. Patient completed [facility] form and submitted to Care Management. Patient refused PT session this morning, stating that he believes he is going home later today. If patient does not discharge to home, will attempt to resume PT services this afternoon.
[2023-01-11] MEDS: Insulin Aspart 300 UNITS/3 ML PEN SC (11:58)
--- NOTE | 2023-01-11 13:43 | W.PM.DS.N ---
Date of service: 01/11/23 Time of Service: 13:43 DS: Diagnosis Discharge Diagnosis (1) COPD exacerbation: Status: Acute (2) Chest pain: Status: Acute (3) Chronic respiratory failure with hypoxia and hypercapnia: Status: Chronic (4) Nonischemic dilated cardiomyopathy: Status: Chronic (5) BPH (benign prostatic hyperplasia): Status: Chronic (6) Diabetes: Status: Chronic (7) DVT prophylaxis: Status: Acute (8) Discharge planning issues: Status: Acute Discharge Plan Disposition Patient Disposition: Home W/Home Health Services Condition: Fair Discharge Details Reason For Visit: COPD Exac Admit Date/Time: 01/06/23 17:56 Admit Provider: Lore Lynne Attending Provider: Lore Lynne Primary Care Provider: Lorrie Crespo Hospital Course Hospital Course: This is a 57-year-old male patient with oxygen dependent COPD who on 01/05/2023 presented to the [facility] ED via EMS complaining of one week of poor exercise tolerance, increasing shortness of breath, and a cough that was predominantly dry.? Patient stated this was similar to multiple episodes of COPD exacerbation requiring admission.? He denied chest pain and reported taking his medications as prescribed.?? In the ED he had bilateral end expiratory wheezes and a marked increased work of breathing. Patient's laboratories noted white count of 10, hematocrit 51, platelets 248.? Venous blood gas showed PCO2 of 52.? Basic chemistries unremarkable, LFTs within normal limits, troponin negative, BNP of 289.? Viral respiratory panel was negative.? Chest x-ray without focal infiltrate.? With ambulation patient became tachycardic with increased work of breathing.? He did not feel safe being discharged to home, stating he was afraid he would fall.? He was admitted to the medical floor for treatment of COPD.? He improved and was at baseline but was unable to be discharged to home secondary to community resources not being available to him on the weekend.? Care managers advised home health and [facility], both resources he utilizes would not be available until Wednesday.? [facility] delievers and administers his medications to him daily.? Without that service in place, it is not safe for him to be discharged.? He remained in hospital until Wednesday01/11/2023 and was discharged to home with those services aware and available for him.? His vital signs were stable and his respiratory status was? back to baseline.? He will have three days of Prednisone 20 mg orally and then will return to prehospital dose of 10 mg Prednisone orally daily. Discussed with Dr Jara Somerville Meds and New Rx's Prescriptions: New prednisone 20 mg tablet 20 mg PO DAILY Qty: 3 0RF Rx Instructions: then resume 10 mg daily (existing Rx) Continued naloxone 4 mg/actuation spray,non-aerosol 4 mg intranasal Q2M PRN Rx Instructions: spray 1 dose into ONE nostril; alternate nostrils w each dose until help arrives ondansetron 4 mg tablet,disintegrating 4 mg PO Q8H PRN (Reason: nausea and vomiting) Qty: 14 0RF sennosides [senna] 8.6 mg tablet 8.6 mg PO BID PRN (Reason: constipation) Qty: 60 5RF polyethylene glycol 3350 17 gram powder in packet 17 g PO BID Qty: 14 0RF prednisone 10 mg tablet 10 mg PO DAILY Qty: 30 2RF clonazepam 1 mg tablet 1 mg PO BID guaifenesin 100 mg/5 mL liquid 200 mg PO Q4H PRN PRN (Reason: congestion) Qty: 1000 1RF calcium carbonate [Tums] 200 mg calcium (500 mg) tablet,chewable 200 mg PO Q2H WHILE AWAKE PRN (Reason: dyspepsia) Qty: 90 1RF gabapentin 300 mg tablet 300 mg PO Q8H morphine concentrate 100 mg/5 mL (20 mg/mL) solution 7.5 mg PO Q3H MDD 60mg PRN (Reason: pain) Qty: 500 0RF Rx Instructions: for air hunger ipratropium-albuterol 0.5 mg-3 mg(2.5 mg base)/3 mL solution for nebulization 3 ml INHALATION Q6H PRN PRN (Reason: shortness of breath or wheezing) Qty: 180 3RF buprenorphine 7.5 mcg/hour patch weekly 1 patch transdermal Q7D Qty: 4 0RF Rx Instructions: dose increase levofloxacin 500 mg tablet 500 mg PO DAILY 5 Days Qty: 5 0RF pravastatin 20 mg tablet 20 mg PO QHS Qty: 10 0RF pantoprazole 40 mg Tablet,Delayed Release (Dr/Ec) 40 mg PO DAILY@0730 Qty: 30 0RF montelukast 10 mg Tablet 10 mg PO DAILY acetaminophen [Tylenol] 325 mg Capsule 325 mg PO DAILY budesonide-formoterol 80-4.5 mcg/actuation Hfa Aerosol Inhaler 2 puff INHALATION BID bupropion HCl 300 mg tablet extended release 24 hr 300 mg PO DAILY Patient Comments: Take 1 tablet by mouth once a day tamsulosin 0.4 mg capsule 0.4 mg PO HS Patient Comments: 1 tab daily albuterol sulfate [ProAir HFA] 90 mcg/actuation Hfa Aerosol Inhaler 2 puff INHALATION Q4H WHILE AWAKE PRN Rx Instructions: Q4-6H PRN nitroglycerin 0.3 mg Tablet, Sublingual 0.3 mg SUBLINGUAL Q5-15M PRN Rx Instructions: do not exceed 3 doses per episode famotidine 10 mg Tablet 10 mg PO BID PRN benztropine 1 mg Tablet 1 mg PO QHS nicotine 21 mg/24 hr Patch 24 Hour 1 patch transdermal QDAY quetiapine [Seroquel XR] 400 mg tablet extended release 24 hr 400 mg PO HS Rx Instructions: total dose 450 mg quetiapine [Seroquel XR] 50 mg tablet extended release 24 hr 50 mg PO HS Rx Instructions: total dose 450 mg Changed prednisone 20 mg tablet 20 mg PO DAILY 3 Days Qty: 10 0RF Rx Instructions: COPD exacerbation Discharge Instructions Instructions: Prednisone (By mouth), COPD (Chronic Obstructive Pulmonary Disease) (DC) Additional Instructions: Resume home health services Take Prednisone 20 mg daily for 3 days, then continue usual dose of Prednisone 10 mg daily. Stand Alone Forms: Nursing Discharge Form Referrals: Audra Yanez MD [ [facility] STAFF PHYSICIAN] - 01/21/23 2:00 pm () Lorrie Crespo [Primary Care Provider] - 01/21/23 12:45 pm () Activity:: Activity as Tolerated Equipment/Supplies:: No Equipment Needed Diet:: Low Sodium Discharge Orders Discharge Orders: Discharge Order (Routine); Ordered 01/11/23 Ordered By: Christie Sanchez Discharge Data Discharge Date/Time-TO BE ENTERED AT DEPARTURE: 01/11/23 15:21 DS: Summary Time Spent with Patient providing and/or coordinating discharge services: Greater than 30 minutes Status at Discharge Functional status at discharge: uses cane/walker Overall status at discharge: patient is progressing back to baseline Mental Status: mental status grossly normal Speech and Movement: speech and movement normal Mood: congruent mood Affect: normal affect Exam Psych Mental Status: mental status grossly normal Speech and Movement: speech and movement normal Mood: congruent mood Affect: normal affect DS: Data Vitals/I&O Vitals and I&O: Vital Signs Temperature 36.5 C 01/11/23 07:20 Temperature Source Tympanic 01/11/23 07:20 Pulse 102 H 01/11/23 07:51 Pulse Rhythm Regular 01/11/23 09:00 Respiratory Rate 16 01/11/23 07:51 Respiratory Effort Normal 01/11/23 09:00 Respiratory Depth Normal 01/11/23 09:00 Respiratory Pattern Normal 01/11/23 09:00 Blood Pressure 106/63 01/11/23 07:20 Blood Pressure Position Sitting 01/05/23 10:33 Pulse Oximetry 96 01/11/23 07:51 Oxygen Delivery Method Nasal Cannula 01/11/23 07:49 Oxygen Flow Rate 3 01/11/23 07:49 Pain Level 4 01/11/23 12:14 Comment patient had a hard time breathing. RN Notified 01/10/23 06:40 Intake & Output 01/10/23 01/11/23 01/11/23 23:59 11:59 23:59 Intake Total 480 / 1230 360 / 360 Balance 480 / 1230 360 / 360 Weight 81.5 kg Intake: Oral 480 / 1210 360 / 360 Other: Urine Color Yellow Yellow Urine Appearance Clear Clear Urine Odor Normal Comment Per pt. report, multiple voids in the toilet throughout the day thus far. patient has been voiding independently into the bathroom Stool Size Moderate Stool Characteristics Soft Formed Brown Voiding Methods [facility] All Active Problems (Updated 01/07/23 @ 14:20 by Lore Lynne MD) Chest pain (Acute) Chronic respiratory failure with hypoxia and hypercapnia (Chronic) COPD exacerbation (Acute) DVT prophylaxis (Acute) Discharge planning issues (Acute) Unintentional weight loss (Acute) Advance care planning (Acute) Peripheral neuropathic pain (Acute) Pain (Acute) Encounter for palliative care (Acute) Palliative care status (Acute) Encounter for hospice care discussion (Acute) Oxygen dependent (Acute) Nightmares (Acute) Full code status (Acute) Need for home health care (Acute) COPD (chronic obstructive pulmonary disease) (Chronic) Altered mental status (Acute) Ambulatory dysfunction (Acute) Adult failure to thrive (Acute) Bullae (Acute) Cigarette smoker (Acute) Cognitive impairment (Chronic) Ambulatory dysfunction (Chronic) Current smoker (Acute) Lung bullae (Acute) Musculoskeletal chest pain (Chronic) Lethargy (Acute) BPH (benign prostatic hyperplasia) (Chronic) Lung disease (Acute) Arthritis (Acute) Diabetes (Chronic) COPD exacerbation (Acute) Noncompliance with medication regimen (Acute) Depression (Chronic) UTI (urinary tract infection) (Acute) Polysubstance abuse (Chronic) Confusion (Acute) Orthostatic hypotension (Acute) PTSD (post-traumatic stress disorder) (Chronic) Discharge planning issues (Acute) Ambulatory dysfunction (Acute) Dyspnea (Acute) COPD (chronic obstructive pulmonary disease) (Chronic) DVT prophylaxis (Acute) Left rib fracture (Acute) Rib fracture (Acute) Syncope (Chronic) Severe chronic obstructive pulmonary disease (Chronic) Biventricular implantable cardioverter-defibrillator (ICD) in situ (Chronic) Mode:DDD, Low rate 60bpm, Atrial lead: medtronic 5076, SN: [id number] 09/27/14; RV lead Medtronic 6935M SN: [id number] 09/27/14; LV lead Medtronic 4396, SN; [id number] 09/27/14 (updated 03/11/20) Systolic and diastolic CHF, chronic (Chronic) LBBB (left bundle branch block) (Chronic) Nonischemic dilated cardiomyopathy (Chronic) Medical History Acquired deformity of left hand Agoraphobia Anxiety Anxiety with depression Cardiomyopathy Chest pain CHF (congestive heart failure) Chronic pain syndrome Constipation Cyst Diarrhea Dizziness DVT prophylaxis Elevated d-dimer Erectile dysfunction Fatigue Hallucination Hand paresthesia Heart disease History of suicidal ideation History of tobacco abuse Hyperlipidemia Impacted ear wax Metacarpophalangeal joint pain Musculoskeletal chest pain Pacemaker Pain in right hip Panic anxiety syndrome Skin lesion Tobacco use Surgical History Status post biventricular pacemaker Family History Mother , 2008 COPD (chronic obstructive pulmonary disease) Social History Smoking/Tobacco Use Status: Former Tobacco Use Quit Date: 03/08/22 Pack-years: 120 Smoking risk assessment performed?: Yes Alcohol Intake: former Drug use: Never Substance use type: does not use Household members: none Pets and animals: No What type of physical activity do you participate in: none Seatbelt use: always Do you feel safe at home: Yes Do you feel safe in your relationship?: Yes Additional Social history: lives alone Time Spent with Patient Time Spent with Patient: 45-69 minutes Time was spent: preparing to see the patient(eg.review tests), ordering medications,tests, procedures, referring, communicating with other health healthcare insurance sales agent, indepentently interpreting results, counseling the patient and care coordination
--- NOTE | 2023-01-11 16:48 | CMDISCH_ITS ---
- If Service Date Differs Date of service: 01/11/23 Time of Service: 16:48 LACE Index Scoring Tool - Questions: Length of Stay (in days): 4 - 6 Acuity (Admit via E.D.?): Yes Comorbidities: Diabetes w/o Complication, Congestive Heart Failure, Chronic Pulmonary Disease E.D. Visits: 5 - Answers: Total Score: 16 Risk of Readmission: High Risk Care Management Discharge Reason for Hospitalization: COPD Exacerbation Discharge Plan: William returned home today with a resumption of HH services. He was transported home via [facility], who stopped at the pharmacy for him prior to bringing him home. He will follow up with [facility], Palliative care, his PCP, and his discharge plan of care. He is agreeable to returning home. Patient/Family Education Needs: Review discharge instructions and limitations, discussion of self care needs including ask me three. Services Needed at Discharge: Home Health Care Services (resume HH RN), Transportation ([facility]) - MH Services (Omit if N/A) Current MH Services: [facility]
--- NOTE | 2023-01-13 17:39 | INDS_ITS ---
Date of service: 01/11/23 PT Notes Visit Reasons: COPD Exac Physical Therapy Inpatient Discharge Summary Date: 01/11/2023 Dates of service: 01/07/2022 through 01/11/2022 This is a clinical summary of care provided for the duration of dates listed above. No charge was made in the completion of this documentation. Referring Doctor: Pham Ngo NP PT Orders: PT CONSULT: Limited ability Precautions: Fall.? Standard.? Activity as tolerated.? Fall, standard Patient Profile/Admitting Diagnosis:? Patient is a 57-year-old male with COPD exacerbation and nonischemic and dilated cardiomyopathy. PMHx: All Active Problems? DVT prophylaxis (Acute) Discharge planning issues (Acute) Unintentional weight loss (Acute) Advance care planning (Acute) Peripheral neuropathic pain (Acute) Pain (Acute) Encounter for palliative care (Acute) Palliative care status (Acute) Encounter for hospice care discussion (Acute) Oxygen dependent (Acute) Nightmares (Acute) Full code status (Acute) Need for home health care (Acute) COPD (chronic obstructive pulmonary disease) (Chronic) Altered mental status (Acute) Ambulatory dysfunction (Acute) Adult failure to thrive (Acute) Bullae (Acute) Cigarette smoker (Acute) Cognitive impairment (Chronic) Ambulatory dysfunction (Chronic) Current smoker (Acute) Lung bullae (Acute) Musculoskeletal chest pain (Chronic) Lethargy (Acute) BPH (benign prostatic hyperplasia) (Chronic) Lung disease (Acute) Arthritis (Acute) Diabetes (Chronic) COPD exacerbation (Acute) Noncompliance with medication regimen (Acute) Depression (Chronic) UTI (urinary tract infection) (Acute) Polysubstance abuse (Chronic) Confusion (Acute) Orthostatic hypotension (Acute) PTSD (post-traumatic stress disorder) (Chronic) Discharge planning issues (Acute) Ambulatory dysfunction (Acute) Dyspnea (Acute) COPD (chronic obstructive pulmonary disease) (Chronic) DVT prophylaxis (Acute) Left rib fracture (Acute) Rib fracture (Acute) Syncope (Chronic) Severe chronic obstructive pulmonary disease (Chronic) Biventricular implantable cardioverter-defibrillator (ICD) in situ (Chronic) Mode:DDD, Low rate 60bpm, Atrial lead: medtronic 5076, SN: [id number] 09/27/14; RV lead Medtronic 6935M SN: [id number] 09/27/14; LV lead Medtronic? 4396, SN; TRACIE [id number] 09/27/14 (updated 03/11/20)Systolic and diastolic CHF, chronic (Chronic) LBBB (left bundle branch block) (Chronic) Nonischemic dilated cardiomyopathy (Chronic) Medical History Acquired deformity of left hand Agoraphobia Anxiety Anxiety with depression Cardiomyopathy Chest pain CHF (congestive heart failure) Chronic pain syndrome Constipation Cyst Diarrhea Dizziness DVT prophylaxis Elevated d-dimer Erectile dysfunction Fatigue Hallucination Hand paresthesia Heart disease History of suicidal ideation History of tobacco abuse Hyperlipidemia Impacted ear wax Metacarpophalangeal joint pain Musculoskeletal chest pain Pacemaker Pain in right hip Panic anxiety syndrome Skin lesion Tobacco use Surgical History? Status post biventricular pacemaker Social History/Home Situation: Patient lives alone in a two-level home with no steps to enter.? He receives assistance from?[employer] multiple times per day.? He is disabled and no longer working.? States that he still has his walker that was given to him previously. No longer works.? On disability. Equipment Owned/DME: [facility] (lost his walker per patien today) Subjective:?? NT. See most recent DIRECTOR OF EMERGENCY NURSING notes. Objective:? General Observation: NT. See most recent DIRECTOR OF EMERGENCY NURSING notes. Mental Status: NT. See most recent DIRECTOR OF EMERGENCY NURSING notes. Pain: NT. See most recent DIRECTOR OF EMERGENCY NURSING notes. ROM: Right Upper Extremity: ? Shoulder Flexion WFL. Shoulder abduction WFL. Elbow flexion WFL. Wrist flexion WFL. Functional opening and closing of hand WFL. Left Upper Extremity:? Shoulder Flexion WFL. Shoulder abduction WFL. Elbow flexion WFL. Wrist flexion WFL. Functional opening and closing of hand WFL. Right Lower Extremity: Hip flexion WFL. Hip abduction WFL. Knee flexion WFL. Ankle dorsiflexion WFL. Ankle plantarflexion WFL. Left Lower Extremity: Hip flexion WFL. Hip abduction WFL. Knee flexion WFL. Ankle dorsiflexion WFL. Ankle plantarflexion WFL. Strength: Right Upper Extremity: Shoulder flexors 4-/5. Shoulder abductors 4-/5. Elbow flexors 5/5. Elbow extensors 4-/5. Draw Frame Runner strong. Left Upper Extremity: Shoulder flexors 4-/5. Shoulder abductors 4-/5. Elbow flexors 5/5. Elbow extensors 4-/5. Draw Frame Runner strong. Right Lower Extremity: Hip flexors 4-/5. Hip abductors 4-/5. Knee flexors 5/5. Knee extensors 4-/5. Ankle dorsiflexors 4-/5. Ankle plantarflexors 4/5. Left Lower Extremity: Hip flexors 4-/5. Hip abductors 4-/5. Knee flexors 5/5. Knee extensors 4-/5. Ankle dorsiflexors 4-/5. Ankle plantarflexors 4/5. Bed mobility/Transfers: Supine-sit: I? Sit-stand: SBA? Stand-sit: SBA ? GAIT? Assistive Device: FWW ? Weight bearing: Full Assist: SBA/CGA ? Distance:? Approx 500ft ? Balance:? Static Sitting: Normal Dynamic Sitting: Normal Static Standing: Fair Dynamic Standing: Fair 4- stage balance test: Able to maintain feet together and semi-tandem but is unable to do so with full tandem and one-legged stance. Assessment:? Patient presents with clinical signs and symptoms consistent with diminished functional mobility related to acute medical issues, as demonstrated by the following impairment level findings: 1.? Decreased balance 2.? Decreased lower extremity strength 3.? Decreased upper extremity strength 4.? Shortness of breath Impairments are contributing to the following functional limitations: 1.? Difficulty with ambulation without assistive device 2.? Increased completion time for mobility ADL performance 3.? Increased risk for falls Goals: Goals X1 week 1. Supine-Sit: Independent MET 2. Sit-Supine: Independent NOT MET 3. Sit-Stand: Independent NOT MET 4. Stand-Sit: Independent NOT MET 5. Bed-Chair: Independent with use of FWW NOT MET 6. Chair-Bed: Independent with the use of FWW NOT MET 7. Gait: Supervision x200 feet with FWW NOT MET 8. Stairs: Supervision on therapeutic stairs x 5 NOT MET 9. Independent with home exercise program NOT MET DISCHARGE RECOMMENDATIONS: [] ? Home with no services [] [X] ? Home with services.? Home when medically cleared by hospitalist.? Patient will benefit from home health PT services in order to progress mobility level using least restrictive assistive ambulatory device, assess home safety, identify additional equipment needs, and establish a functional maintenance program that will increase ability of patient to remain at home. [] ? Home with outpatient PT [] [] ? SNF for continued rehabilitation [] [] ? [facility] [] [] ? SNF versus LTC based on ability to participate and progress [] TREATMENT CODE/TIME: PA Thank you for the opportunity to participate in the care of this patient. Valentine Tavera PT, DPT, CLT [facility] [place], [place]
== END 2023-01-11 15:21 | disposition home health service (06) | DRG 191 ==
LOC: ER 12:43 → MS 13:40
PROVIDERS: Nurse Practitioner Acute Care; Nurse Practitioner Family; Admitting Provider Internal Medicine; Emergency Provider Emergency Medicine; PCP Nurse Practitioner Family; Visit Provider Internal Medicine
DX: J44.1 Chronic obstructive pulmonary disease with (acute) exacerbation (principal); I42.0 Dilated cardiomyopathy; I50.42 Chronic combined systolic (congestive) and diastolic (congestive) heart failure; J96.11 Chronic respiratory failure with hypoxia; J96.12 Chronic respiratory failure with hypercapnia; N40.0 Benign prostatic hyperplasia without lower urinary tract symptoms; E11.9 Type 2 diabetes mellitus without complications; R07.89 Other chest pain; Z99.81 Dependence on supplemental oxygen; R63.4 Abnormal weight loss; Z68.28 Body mass index [BMI] 28.0-28.9, adult; G62.9 Polyneuropathy, unspecified; R26.9 Unspecified abnormalities of gait and mobility; R41.89 Other symptoms and signs involving cognitive functions and awareness; R62.7 Adult failure to thrive; Z91.14 Patient's other noncompliance with medication regimen; F32.A Depression, unspecified; F19.10 Other psychoactive substance abuse, uncomplicated; I95.1 Orthostatic hypotension; F43.10 Post-traumatic stress disorder, unspecified; Z95.810 Presence of automatic (implantable) cardiac defibrillator; I44.7 Left bundle-branch block, unspecified; Z87.891 Personal history of nicotine dependence
CPT/HCPCS: 36415; 80048; 80053; 82805; 84145; 85027; 87637; 93005; 93306; 94640; 96374; 97162; 97530; 99285; J1650; 71046; 83735; 83880; 84484; 85025; 93010; 94664; 94760; 99223; 99232; 99233; 99239; G0378; J1940; J1941; J2930; J3490; J7512; J7620

== ENCOUNTER 2023-01-25 08:04 | Inpatient (IN) | payer MEDICARE, SELFPAY ==
[2023-01-25] VITALS (75 sets, daily range): BP systolic 102–161; BP diastolic 64–101; PULSE 81–170; RESP 4–28; TEMP 36.8–38.5; O2SAT 87–99
--- NOTE | 2023-01-25 08:00 | DI.RAD_ITS ---
Exam(s) XR PORTABLE CHEST AP EXAM: XR PORTABLE CHEST AP CLINICAL HISTORY: SOB. TECHNIQUE: 2D digital imaging was performed. COMPARISON: CR XR CHEST 2V PA LATERAL from 01/05/2023 FINDINGS: Single AP portable view. Heart size normal. Left subclavian pacemaker noted, unchanged. Left lung is clear. There is patchy nodular infiltrate the lower right lung field. Measures approxi mately 2 x 2 cm. No pleural effusions. IMPRESSION: Nodular infiltrate lower right lung field, not evident on prior image of the 01/05/2023. Cardiac pacemaker. No cardiomegaly. No pulmonary edema. DATA REPOSITORY: RADIATION DOSE DELIVERED:
--- NOTE | 2023-01-25 08:00 | RT.EKG_ITS ---
APPROVED REPORT Exam: Resting ECG Reason for Exam: sob Patient Location: E HR:106 bpm ECG Measurements Heart Rate 106 AXIS NC 60 P 42 QRSd 115 QRS 147 QT 363 T 63 QTc 483 Conclusion Atrial-sensed ventricular-paced rhythm...ventricular pacing tracks p-waves Biventricular paced rhythm...non-simultaneous bi-vent pacing
--- NOTE | 2023-01-25 08:23 | ED.GENADUL_ITS ---
Discharge Plan Disposition Patient Disposition: Admit to [facility] Discharge Details Chief Complaint: SOB Clinical Impression: COPD exacerbation, Cigarette smoker, Altered mental status, SBO (small bowel obstruction) Admit Date/Time: 01/25/23 13:14 Admit Provider: Lore Lynne Attending Provider: Lore Lynne Primary Care Provider: Lorrie Crespo ED Provider: [place] [facility] Making Patient is a pleasant 57-year-old male brought in via EMS with chief complaint of shortness of breath and chest pain. Reports that this is progressive and worsening over the past 24 hours. Patient has past medical history significant for nicotine dependence, COPD, oxygen dependent 3 L, adult failure to thrive, depression, polysubstance abuse, PTSD, chronic systolic and diastolic CHF, left bundle branch block, nonischemic dilated cardiomyopathy. Patient is not anticoagulated that we know of at this time. He does have a biventricular implantable cardioverter defibrillator. He states that this is felt like his COPD exacerbations and chronic diseases in the past. He is endorsing some left- sided chest pain that is worse with palpation over the chest. Denies any trauma. He denies any recent cough, cold, fevers or chills. Has not had any recent changes medications he states has been taking his medications as prescribed. On exam, patient appears anxious and tachypneic. I not appreciate any accessory work of breathing. He does have wheezing, most notably in the bases, more so on the right side than the left. EMS did report that the patient was quite without any wheezing initially but have subsequently given him 2 albuterol nebulizer, 1 DuoNeb and 2 g of magnesium. Wondering if now he is moving more air as the wheezing is notable at this time. He has no lower extremity edema. No calf tenderness. His fingers are cold but he does not have any cyanosis and has intact capillary refill. EKG was obtained and reviewed by Dr. Grace. No acute ischemic etiology noted. Patient continues to be paced. Of note, the cardiac rn keeps reading it that the patient is having a significantly faster heart rate than what is visible. Likely is associated with inaccurate counting or counting on the T waves as well. Patient underwent an echo 2 weeks ago. At that time, patient had a EF of 50 to 55% and the LV was noted to be grossly within normal size. Right ventricle normal size and systolic function. No significant valvular disease. Device lead noted in the right heart. Patient is noticed baseline 3 L nasal cannula and maintaining oxygen saturation in the mid to high 90s. His work of breathing is greatly cut back. He is received the above nebulizers as well as dexamethasone and magnesium. His chest pain is resolved. He continues to feel slightly nauseated and shaky. He did have a irritated area in his skin over the left anterior chest when discussing this with the patient who reports that he had a fentanyl patch on there yesterday. He states that he did not like the way that the fentanyl patch made him feel and he took it off. He states that prior to that he been on other chronic narcotics and did not have any replacement for these so has been without any narcotics in the past 24 hours. He does appear slightly diaphoretic and tremulous and anxious. On questioning at this time if he may actually be having some withdrawal symptoms and we will give him some benzodiazepines to help with his symptoms. Medication list obtained, it was a buprenorphine patch that patient removed, reported that it made him nauseated. He has not taken his AM meds, will give this to him now. Reviewing his chart, patient actually has had a number of medication changes recently although he had denied this. Has been working with a number of different groups I am wondering if this may be beginning to confuse the patient some. While he is working with palliative care he still wants to be a full code. Patient is now endorsing some upper abdominal discomfort. He is daily on Protonix and has not taking his morning meds. We will give him his morning medications. His D-dimer was elevated. Patient is largely sedentary, is an active smoker and does have risk factors for PE. We will move forward for CTA to evaluate for potential pulmonary embolism we will also add on a CT of his abdomen of this discomfort as well as a lipase. Labs reviewed. White count slightly elevated 11.2. Patient is not anemic. D-dimer is elevated at 2000. His pH 7.39, PCO2 54, O2 47, bicarb 33. His O2 has been turned down. He was on large amount of oxygen with EMS. CMP significant for elevated bicarb. Glucose slightly elevated 146. GFR is 101. To move forward with a CTA. Magnesium is elevated at 3.5 but he did receive 2 g prior to arrival. Troponin is within normal limits. I do plan to repeat this. This patient does have history of cardiomyopathy and shortness of breath, BNP was obtained and slightly elevated at 523. This is above average for the patient, holding off on fluids at this time, he is drinking orally. Patient is negative for flu, COVID and RSV. FINDINGS: CHEST: PULMONARY ARTERIES: There are no intra-arterial filling defects to suggest the presence of acute pulmonary emboli. LUNGS: Advanced emphysematous changes again noted in the upper lobe regions.There is a? stellate density in the right upper lobe measuring approximately 1 1 x 0.8 cm, not previously evident.? No other new focal pulmonary findings.? Chronic infiltrate in the lingular segment of the left lung is unchanged. MEDIASTINUM: There is no hilar adenopathy but there is now significant subcarinal adenopathy which was not previously present.? There is no adenopathy in the anterior mediastinal fat.? No paratracheal adenopathy.? No axillary adenopathy.? Partially visualized thyroid unremarkable. CARDIAC: Heart size upper normal.? Pacemaker wires noted.Caliber thoracic aorta normal.? No dissection. OSSEOUS: No significant osseous lesions.. ABDOMEN: There is no ascites. GI: Stomach appears distended.? There is abnormal density now evident at the GE junction, possibly neoplastic.? The soft is is not dilated.? There are abnormally enlarged precarinal lymph nodes in this region, not previously present and measuring up to 1.4 cm.? There also abnormally enlarged lymph nodes around the separate origins of the splenic and common hepatic arteries anterior to the aorta and there is also some para-aortic adenopathy evident. There are? dilated left-sided jejunal loops measuring up to 3.8 cm.? Transition point is in left side of the abdomen and small bowel loops distal to this exhibit smaller caliber. LIVER: There are no focal hepatic lesions nor dilatation of intrahepatic ducts.? GALLBLADDER/BILIARY: No obvious gallbladder pathology.? CBD is not dilated. PANCREAS: No evidence of pancreatic mass nor dilatation of the pancreatic duct.? SPLEEN: Spleen is not enlarged. There are no intrasplenic lesions.? Splenic and portal veins are patent. ADRENALS: There are no significant adrenal masses. KIDNEYS:In the superior pole the left kidney there is a an asymmetric area of enhancement measuring 1.4 x 1.3 cm, possibly significant.? Small benign cyst is noted lower down in the left kidney measuring less than 1 cm.? A few tiny cortical cysts are noted in the opposite-right kidney.? There are no radiopaque calculi nor hydronephrosis.. ABDOMINAL AORTA: Calcified but not significantly enlarged. LYMPH NODES: Adenopathy as described above. ABDOMINAL WALL/GI: Fat containing anterior abdominal wall umbilical hernia.? Also fat containing left inguinal hernia.? No bowel loops within the hernia sacs. PELVIS:? LYMPH NODES: There is no intrapelvic nor inguinal adenopathy. GI: No evidence of appendicitis.No evidence of sigmoid diverticulitis. URINARY BLADDER: No calculi nor masses evident REPRODUCTIVE: Prostate size normal.? Seminal vesicles unremarkable. OSSEOUS: No significant osseous lesions.? No fractures. IMPRESSION: 1. No evidence of acute pulmonary emboli nor pulmonary infarction. 2. New stellate nodule in the right upper lobe, possibly early neoplasm.? No other pulmonary findings nor pleural effusions.No hilar adenopathy. 3. New prominent subcarinal adenopathy as well as retroperitoneal adenopathy and adenopathy around the GE junction as well as new para-aortic adenopathy around the upper abdominal aorta.? There appears to be a probable mass at GE junction which may be the culprit mass for this new concerning adenopathy.? There are no metastatic lesions in the liver. 4.? There are dilated left of center jejunal loops measuring up to 3.8 cm, not previously present and with transition zone being in left side of the abdomen.? Small bowel loops distal to this level are small caliber.? Suspect element of small bowel obstruction.? No obvious mass discernible as the cause. 5. Asymmetric area of enhancement in the superior pole region of the left kidney which is possibly complicated cyst or other pathology.? Recommend further study with ultrasound. Discussed these findings at length with the patient. Plan to admit for SBO. I do not see any evidence of surgical abdomen at this time. Patient will also need continued care for his COPD exacerbation, likely narcotic withdrawal, anxi ety and possible cancer. Consulted with hospitalist who recommended consultation with surgical team prior to admission. Patient evaluated by Dr. Olviares. He is not convinced that the patient actually has an SBO. Plan to admit for continued monitoring and abundance of caution as well as continued monitoring in the setting of an acute COPD exacerbation. Discussed plan with patient who is much more comfortable doing this. Consulted again with hospitalist who agrees with this plan. HPI General Date/Time Provider Initiated Documentation: 01/25/23 08:10 . Limitations to Documentation: no limitations . Information obtained by: patient, EMS, RN notes reviewed and old records reviewed . History of Present Illness 57 year old M presents to the emergency department with the chief complaint of shortness of breath, chest discomfort, described as moderate and similar to prior episodes, Quality is described as aching, and is localized to the chest. Patient reports no radiation. Patient started experiencing this day(s) (1) and it has been constant. Medication improves symptom(s), (feeling improved after nebulizer from EMS) No exacerbating factors reported . Patient notes chest pain, loss of appetite, malaise, nausea/vomiting (nausea, no vomiting) and shortness of breath; denies cough, diaphoresis, fever/chills and syncope. Patient did receive the following treatments prior to arrival, other (duoneb, albuterol, magnesium) Related Data Home Medications Medication Instructions Recorded Confirmed pravastatin 20 mg tablet 20 mg PO QHS #10 tabs 03/17/20 01/25/23 pantoprazole 40 mg tablet,delayed 40 mg PO DAILY@0730 #30 tabs 05/01/21 01/25/23 release albuterol sulfate 90 mcg/actuation 2 puff inhalation Q4H WHILE AWAKE 02/05/22 01/25/23 aerosol inhaler (ProAir HFA) PRN nitroglycerin 0.3 mg sublingual 0.3 mg sublingual Q5-15M PRN 02/19/22 01/25/23 tablet acetaminophen 325 mg capsule 325 mg PO DAILY 03/28/22 01/25/23 (Tylenol) budesonide-formoterol HFA 80 2 puff inhalation BID 03/28/22 01/19/23 mcg-4.5 mcg/actuation aerosol inhaler montelukast 10 mg tablet 10 mg PO DAILY 03/28/22 01/25/23 bupropion HCl 300 mg 24 hr tablet, 300 mg PO DAILY 03/29/22 01/25/23 extended release tamsulosin 0.4 mg capsule 0.4 mg PO HS 03/29/22 01/25/23 naloxone 4 mg/actuation nasal spray 4 mg intranasal Q2M PRN 09/27/22 04/03/23 calcium carbonate 200 mg calcium 200 mg PO Q2H WHILE AWAKE PRN 10/29/22 01/19/23 (500 mg) chewable tablet (Tums) dyspepsia #90 tabs clonazepam 1 mg tablet 1 mg PO BID 10/29/22 01/25/23 gabapentin 300 mg tablet 300 mg PO BID 10/29/22 01/25/23 guaifenesin 100 mg/5 mL oral liquid 200 mg (10 mL) PO Q4H PRN PRN 10/29/22 01/19/23 congestion #1,000 mL ondansetron 4 mg disintegrating 4 mg PO Q8H PRN nausea and 11/20/22 01/19/23 tablet vomiting #14 tabs polyethylene glycol 3350 17 gram 17 g PO BID #14 ea 11/20/22 01/25/23 oral powder packet sennosides 8.6 mg tablet (senna) 8.6 mg PO BID PRN constipation #60 11/20/22 01/19/23 tabs prednisone 10 mg tablet 10 mg PO DAILY #30 tabs 12/02/22 01/25/23 ipratropium 0.5 mg-albuterol 3 mg 3 ml inhalation Q6H PRN PRN 12/07/22 01/25/23 (2.5 mg base)/3 mL nebulization shortness of breath or wheezing soln #180 mL morphine concentrate 100 mg/5 mL 7.5 mg (0.375 mL) PO Q3H PRN pain 12/08/22 01/25/23 (20 mg/mL) oral solution #500 mL buprenorphine 7.5 mcg/hour weekly 1 patch transdermal Q7D #4 ea 01/01/23 01/25/23 transdermal patch benztropine 1 mg tablet 1 mg PO QHS 01/05/23 01/19/23 famotidine 10 mg tablet 10 mg PO BID PRN 01/05/23 01/25/23 nicotine 21 mg/24 hr daily 1 patch transdermal QDAY 01/05/23 01/19/23 transdermal patch quetiapine 400 mg tablet,extended 400 mg PO HS 01/06/23 01/25/23 release 24 hr (Seroquel XR) quetiapine 50 mg tablet,extended 50 mg PO HS 01/06/23 01/19/23 release 24 hr (Seroquel XR) prednisone 20 mg tablet 20 mg PO DAILY #3 tabs 01/11/23 01/19/23 guaifenesin 600 mg tablet,extended 600 mg PO BID PRN 01/25/23 01/25/23 release Previous Rx's Medication Instructions Recorded pravastatin 20 mg tablet 20 mg PO QHS #10 tabs 03/17/20 pantoprazole 40 mg tablet,delayed 40 mg PO DAILY@0730 #30 tabs 05/01/21 release calcium carbonate 200 mg calcium 200 mg PO Q2H WHILE AWAKE PRN 10/29/22 (500 mg) chewable tablet (Tums) dyspepsia #90 tabs guaifenesin 100 mg/5 mL oral liquid 200 mg (10 mL) PO Q4H PRN PRN 10/29/22 congestion #1,000 mL ondansetron 4 mg disintegrating 4 mg PO Q8H PRN nausea and 11/20/22 tablet vomiting #14 tabs polyethylene glycol 3350 17 gram 17 g PO BID #14 ea 11/20/22 oral powder packet sennosides 8.6 mg tablet (senna) 8.6 mg PO BID PRN constipation #60 11/20/22 tabs prednisone 10 mg tablet 10 mg PO DAILY #30 tabs 12/02/22 ipratropium 0.5 mg-albuterol 3 mg 3 ml inhalation Q6H PRN PRN 12/07/22 (2.5 mg base)/3 mL nebulization shortness of breath or wheezing soln #180 mL morphine concentrate 100 mg/5 mL 7.5 mg (0.375 mL) PO Q3H PRN pain 12/08/22 (20 mg/mL) oral solution #500 mL buprenorphine 7.5 mcg/hour weekly 1 patch transdermal Q7D #4 ea 01/01/23 transdermal patch prednisone 20 mg tablet 20 mg PO DAILY #3 tabs 01/11/23 Allergies Allergy/AdvReac Type Severity Reaction Status Date / Time No Known Allergies Allergy Unverified 01/25/23 08:13 General Stated Complaint: SOB MOLLY: 2 Review of Systems Constitutional Constitutional: Reports as per HPI, Denies chills, Denies fever(s) and Denies headache(s) ENT Ears, Nose, Mouth, and Throat: Denies dizziness and Denies headache(s) Cardiovascular Cardiovascular: Reports as per HPI Respiratory Respiratory: Reports as per HPI and Denies chest congestion Gastrointestinal Gastrointestinal: Reports as per HPI, Denies diarrhea and Denies vomiting Genitourinary Genitourinary: Denies system reviewed and no additional complaints, except as documented (denies change in urinary habits) Musculoskeletal Musculoskeletal: Reports as per HPI and Denies back pain Integumentary/Breasts Skin/Breast: Reports as per HPI and Denies rash Neurologic Neurologic: Reports as per HPI, Denies dizziness and Denies headache(s) PFSH All Active Problems (Updated 01/25/23 @ 15:23 by IRASEMA Fox) SBO (small bowel obstruction) (Acute) Abdominal pain (Acute) Personal history of nicotine dependence (Acute) Respiratory failure with hypoxia and hypercapnia (Acute) COPD exacerbation (Acute) Unintentional weight loss (Acute) Peripheral neuropathic pain (Acute) Encounter for palliative care (Acute) Encounter for hospice care discussion (Acute) Oxygen dependent (Acute) Nightmares (Acute) Altered mental status (Acute) Ambulatory dysfunction (Acute) Adult failure to thrive (Acute) Bullae (Acute) Cigarette smoker (Acute) Cognitive impairment (Chronic) Ambulatory dysfunction (Chronic) Current smoker (Acute) Lung bullae (Acute) Musculoskeletal chest pain (Chronic) Lethargy (Acute) Lung disease (Acute) Arthritis (Acute) Noncompliance with medication regimen (Acute) Depression (Chronic) UTI (urinary tract infection) (Acute) Polysubstance abuse (Chronic) Confusion (Acute) Orthostatic hypotension (Acute) PTSD (post-traumatic stress disorder) (Chronic) Discharge planning issues (Acute) Ambulatory dysfunction (Acute) COPD (chronic obstructive pulmonary disease) (Chronic) DVT prophylaxis (Acute) Left rib fracture (Acute) Rib fracture (Acute) Syncope (Chronic) Severe chronic obstructive pulmonary disease (Chronic) Systolic and diastolic CHF, chronic (Chronic) LBBB (left bundle branch block) (Chronic) Nonischemic dilated cardiomyopathy (Chronic) Medical History Acquired deformity of left hand Agoraphobia Anxiety Anxiety with depression Biventricular implantable cardioverter-defibrillator (ICD) in situ Mode:DDD, Low rate 60bpm, Atrial lead: medtronic 5076, SN: [id number] 09/27/14; RV lead Medtronic 6935M SN: [id number] 09/27/14; LV lead Medtronic 4396, SN; [id number] 09/27/14 (updated 03/11/20) BPH (benign prostatic hyperplasia) Cardiomyopathy CHF (congestive heart failure) Chronic pain syndrome Constipation COPD (chronic obstructive pulmonary disease) Cyst Diabetes Diarrhea Dizziness DVT prophylaxis Elevated d-dimer Erectile dysfunction Fatigue Hallucination Hand paresthesia Heart disease History of suicidal ideation History of tobacco abuse Hyperlipidemia Impacted ear wax Metacarpophalangeal joint pain Musculoskeletal chest pain Pacemaker Pain Pain in right hip Panic anxiety syndrome Skin lesion Tobacco use Surgical History Status post biventricular pacemaker Family History Mother , 2008 COPD (chronic obstructive pulmonary disease) Social History Smoking/Tobacco Use Status: Former Tobacco Use Quit Date: 03/08/22 Pack-years: 120 Smoking risk assessment performed?: Yes Alcohol Intake: former Drug use: Never Substance use type: does not use Household members: none Pets and animals: No What type of physical activity do you participate in: none Seatbelt use: always Do you feel safe at home: Yes Do you feel safe in your relationship?: Yes Additional Social history: lives alone Exam Const General: cooperative, well developed, acute distress mild and respiratory, anxious, diaphoretic and ill appearing acutely and chronically Nutritional Appearance: average body habitus and well nourished Orientation: alert, awake and oriented x3 HENMT Head: normal to inspection Ears: hearing grossly normal bilaterally Mouth: mucous membranes dry (appears dry) Neck Neck: normal visual inspection, no lymphadenopathy, no meningeal signs and trachea midline Chest Chest: normal inspection of the chest, normal palpation of entire chest wall, no crepitus and other (small area of skin irritation left anterior chest wall) Resp Effort & Inspection: normal respiratory effort, able to speak in complete sentences and tachypneic Auscultation: no rales, no rhonchi and wheezes expiratory wheezes (bilateral bases) Cardio Rate: tachycardic Rhythm: regular rhythm Heart Sounds: S1 normal and S2 normal GI Inspection: normal to inspection, no edema and distended Palpation: soft, not firm, no guarding, not rigid and tender (diffusely tender, no peritoneal findings) Auscultation: normal bowel sounds Back/Spine/Pelvis Back: no CVA tenderness Thoracic/Lumbar Spine: thoracic and lumbar spine normal to inspection Skin General skin exam: no rashes or lesions noted Trauma: no lacerations or abrasions Neuro General: patient alert, patient awake and patient oriented x3 Cognition: normal cognition Speech: speech normal Extrem General: normal to inspection, capillary refill normal, no pedal edema and no calf tenderness Psych Appearance: grossly normal and well kempt Mental Status: mental status grossly normal Speech and Movement: speech and movement normal Course Vital Signs Vital signs: Vital Signs Pulse 112 H 01/25/23 08:09 Respiratory Rate 18 01/25/23 08:09 Blood Pressure 152/101 H 01/25/23 08:09 Pulse Oximetry 96 01/25/23 08:09 Pulse 112 H 01/25/23 08:09 Respiratory Rate 18 01/25/23 08:09 Blood Pressure 152/101 H 01/25/23 08:09 Blood Pressure Position Sitting 01/25/23 08:09 Pulse Oximetry 96 01/25/23 08:09 Oxygen Delivery Method Non-Rebreather 01/25/23 08:09 Oxygen Flow Rate 0 01/25/23 08:09 Pain Level 4 01/25/23 08:09
[2023-01-25] MEDS: methylPREDNISolone SUCC 125 MG VIAL IVP (08:24)
[2023-01-25] MEDS: Ondansetron 4 MG/2 ML VIAL IVP (08:24)
[2023-01-25 08:27] LABS: Abs Immature Grans 0.05 10^3/uL (0.0-0.06); Absolute Basophil Count 0.06 10^3/uL (0.0-0.2); Absolute Eosinophil Count 0.02 10^3/uL (0.0-0.7); Absolute Lymphocyte Count 1.17 10^3/uL (1.2-3.4); Absolute Monocyte Count 1.05 10^3/uL (0.1-0.8); Absolute Neutrophil Count 8.87 10^3/uL (1.2-6.7); Basophils % 0.5; Eosinophils % 0.2; HCT 51.4 % (40.0-50.0); HGB 17.2 g/dL (13.5-17.5); Immature Grans % 0.4; Lymphocytes % 10.4; MCH 29.9 pg (27.0-33.0); MCHC 33.5 % (32.0-36.0); MCV 89 fL (80-95); MPV 10.5 fL (8.0-11.0); Monocytes % 9.4; Neutrophils % 79.1; Platelet Count 211 10^3/uL (130-400); RBC 5.76 10^6/uL (4.36-5.78); RDW 13.2 % (11.8-14.1); RDW-SD 42.9 fL; WBC 11.21 10^3/uL (4.4-10.8)
[2023-01-25] MEDS: LORazepam 2 MG/ML VIAL 1 MG IVP (08:44)
[2023-01-25 08:51] LABS: BE (Venous) 8 mmol/L (-2-3); HCO3 (Venous) 33 mmol/L (23-28); O2 Sat (Venous) 84 %; TCO2 (Venous) 28 mmol/L (24-29); pCO2 (Venous) 54 mmHg (41-51); pH (Venous) 7.39 (7.31-7.41); pO2 (Venous) 47 mmHg
[2023-01-25 08:57] LABS: ALT 33 U/L (16-63); AST 20 U/L (15-37); Albumin 3.7 g/dL (3.4-5.0); Alkaline Phosphatase 83 U/L (46-116); Anion Gap 7.7 mmol/L (3-11); BUN 7 mg/dL (7-18); Bilirubin, Total 0.6 mg/dL (0.2-1.0); CO2 34.3 mmol/L (21.0-32.0); CREATININE 0.8 mg/dL (0.70-1.30); Calcium 9.7 mg/dL (8.5-10.1); Chloride 98 mmol/L (98-107); Estimated GFR 101.95 (mL/min/1.73m2); Glucose 146 mg/dL (74-106); Magnesium 3.5 mg/dL (1.8-2.4); NT-proBNP 523 pg/mL (<300); Potassium 4.1 mmol/L (3.5-5.1); Sodium 140 mmol/L (136-145); Total Protein 7.9 g/dL (6.4-8.2); Troponin I < 50 ng/L (<or=60)
[2023-01-25 09:12] LABS: D-Dimer 1001 ng/mlFEU (<500)
--- NOTE | 2023-01-25 09:21 | DI.CT_ITS ---
Exam(s) CT CHEST PE ABD PELVIS W EXAM: CT CHEST PE ABD PELVIS W CLINICAL HISTORY: SOB, elevate dimer, sedentary. TECHNIQUE: Imaging Protocol: Axial CT angiography was performed with multi-slice acquisition and m ulti-planar and/or 3D reconstructions. CONTRAST MATERIAL: Intravenous: Omnipaque 350 Contrast volume:100 ml Oral: None COMPARISON: CT CT ABDOMEN PELVIS W from 02/18/[address] CHEST PE CTA from 04/01/2022 CR XR PORTABLE CHEST AP from 01/25/2023 FINDINGS: CHEST: PULMONARY ARTERIES: There are no intra-arterial filling defects to suggest the presence of acute pulm onary emboli. LUNGS: Advanced emphysematous changes again noted in the upper lobe regions.There is a stellate dens ity in the right upper lobe measuring approximately 1 1 x 0.8 cm, not previously evident. No other n ew focal pulmonary findings. Chronic infiltrate in the lingular segment of the left lung is unchange d. MEDIASTINUM: There is no hilar adenopathy but there is now significant subcarinal adenopathy which wa s not previously present. There is no adenopathy in the anterior mediastinal fat. No paratracheal a denopathy. No axillary adenopathy. Partially visualized thyroid unremarkable. CARDIAC: Heart size upper normal. Pacemaker wires noted.Caliber thoracic aorta normal. No dissectio n. OSSEOUS: No significant osseous lesions.. ABDOMEN: There is no ascites. GI: Stomach appears distended. There is abnormal density now evident at the GE junction, possibly ne oplastic. The soft is is not dilated. There are abnormally enlarged precarinal lymph nodes in this region, not previously present and measuring up to 1.4 cm. There also abnormally enlarged lymph node s around the separate origins of the splenic and common hepatic arteries anterior to the aorta and th ere is also some para-aortic adenopathy evident. There are dilated left-sided jejunal loops measuring up to 3.8 cm. Transition point is in left side of the abdomen and small bowel loops distal to this exhibit smaller caliber. LIVER: There are no focal hepatic lesions nor dilatation of intrahepatic ducts. GALLBLADDER/BILIARY: No obvious gallbladder pathology. CBD is not dilated. PANCREAS: No evidence of pancreatic mass nor dilatation of the pancreatic duct. SPLEEN: Spleen is not enlarged. There are no intrasplenic lesions. Splenic and portal veins are owens nt. ADRENALS: There are no significant adrenal masses. KIDNEYS:In the superior pole the left kidney there is a an asymmetric area of enhancement measuring 1 .4 x 1.3 cm, possibly significant. Small benign cyst is noted lower down in the left kidney measurin g less than 1 cm. A few tiny cortical cysts are noted in the opposite-right kidney. There are no ra diopaque calculi nor hydronephrosis.. ABDOMINAL AORTA: Calcified but not significantly enlarged. LYMPH NODES: Adenopathy as described above. ABDOMINAL WALL/GI: Fat containing anterior abdominal wall umbilical hernia. Also fat containing left inguinal hernia. No bowel loops within the hernia sacs. PELVIS: LYMPH NODES: There is no intrapelvic nor inguinal adenopathy. GI: No evidence of appendicitis.No evidence of sigmoid diverticulitis. URINARY BLADDER: No calculi nor masses evident REPRODUCTIVE: Prostate size normal. Seminal vesicles unremarkable. OSSEOUS: No significant osseous lesions. No fractures. IMPRESSION: 1. No evidence of acute pulmonary emboli nor pulmonary infarction. 2. New stellate nodule in the right upper lobe, possibly early neoplasm. No other pulmonary findings nor pleural effusions.No hilar adenopathy. 3. New prominent subcarinal adenopathy as well as retroperitoneal adenopathy and adenopathy around th e GE junction as well as new para-aortic adenopathy around the upper abdominal aorta. There appears to be a probable mass at GE junction which may be the culprit mass for this new concerning adenopathy . There are no metastatic lesions in the liver. 4. There are dilated left of center jejunal loops measuring up to 3.8 cm, not previously present and with transition zone being in left side of the abdomen. Small bowel loops distal to this level are small caliber. Suspect element of small bowel obstruction. No obvious mass discernible as the cause . 5. Asymmetric area of enhancement in the superior pole region of the left kidney which is possibly co mplicated cyst or other pathology. Recommend further study with ultrasound. RADIATION DOSE DELIVERED: 1,234.31mGy.cm Total DLP DATA REPOSITORY: All CT scans at this facility are submitted to the National Radiology Data Registry (NRDR) Dose Index Registry (DIR) with the [employer] (A[employer]). RADIATION OPTIMIZATION: All CT scans at this facility use at least one of these dose optimization te chniques: automated exposure control; mA and/or kV adjustment per patient size (includes targeted exa ms where dose is matched to clinical indication); or iterative reconstruction.
[2023-01-25 09:27] LABS: COVID-19 PCR Negative (Negative); Influenza A PCR Negative (Negative); Influenza B PCR Negative (Negative); RSV PCR Negative (Negative)
[2023-01-25 09:28] LABS: Source Nasopharynx
[2023-01-25] MEDS: clonazePAM 1 MG TAB PO ×2 (09:29→19:39)
[2023-01-25] MEDS: Pantoprazole 40 MG TABCR PO (09:29)
[2023-01-25] MEDS: Gabapentin 300 MG CAP PO ×2 (09:32→19:39)
[2023-01-25] MEDS: Normal Saline - Diluent 50 ML VIAL IJ (09:44)
[2023-01-25 09:45] LABS: Lipase 21 U/L (16-77)
[2023-01-25] MEDS: Omnipaque 350 MG/ML 500 ML BTL-Imaging package 100 ML IJ (09:45)
[2023-01-25] MEDS: Normal Saline Flush 10 ML SYR IVP (09:46)
[2023-01-25 12:20] LABS: Troponin I < 50 ng/L (<or=60)
--- NOTE | 2023-01-25 12:22 | SCONE_ITS ---
Date of service: 01/25/23 Time of Service: 12:22 Assessment and Plan Assessment and plan (1) Abdominal pain: Status: Acute Assessment and plan: The absence of significant nausea and vomiting, as well as the normal bowel function up through this morning would argue against the diagnosis of small bowel obstruction. Certainly, there is some dilation of the more proximal small intestine, with some transition towards the ileum. I do not see a discrete focus of a transition point. Nor is there evidence of fecalization of the small bowel, or any free fluid. I think it would be fine to start him on some liquids, and see how he tolerates that. Absent any nausea or vomiting, I think his diet could be advanced back to regular food relatively quickly. If he does have signs of nausea or vomiting, I would try a Gastrografin challenge using 120 mL of Gastroview mixed with 30 mL of saline solution. Concerning the findings around the gastroesophageal junction, and the upper abdominal, retroperitoneal, and mediastinal lymphadenopathy. His cigarette smoking and alcohol history are significant risk factors for Mckeon's esophagus and gastroesophageal cancer. I explained that he needs an EGD for direct visualization of the area, and potential tissue diagnosis. And while this should be performed in a timely fashion, I think resolution of his COPD exacerbation is more important at this point. We can certainly help to expedite an EGD and biopsies as an outpatient once he is stable for discharge. History of Present Illness History of Present Illness Chief Complaint: shortness of breath Narrative: Reese is 57 years old and he came into the emergency department after calling 911 for increasing shortness of breath. He says he first noticed it approximately 3 days ago. It is associated with a nonproductive cough. At first, it was mostly exertional dyspnea, but over the past 48 hours or so, it has become more consistent and intense. He tells me he has been having difficulty sleeping because of a subjective sense of dyspnea. He has some associated crampy left- sided abdominal pain. He had a little bit of nausea around the time that he got into the emergency department today, but otherwise he denies nausea or vomiting. He has been having normal formed bowel movements up through this morning. Review of Systems Constitutional Constitutional: Reports body ache(s), Reports difficulty sleeping, Reports fatigue, Denies fever(s), Denies lethargy, Denies poor appetite and Reports stops breathing during sleep Eyes Eyes: Reports system reviewed and no additional complaints, except as documented ENT Ears, Nose, Mouth, and Throat: Reports system reviewed and no additional complaints, except as documented Cardiovascular Cardiovascular: Reports chest pain, Reports dyspnea and Reports orthopnea Respiratory Respiratory: Denies chest congestion, Reports cough (dry) and Reports dyspnea Gastrointestinal Gastrointestinal: Reports abdominal pain, Denies change in bowel habits, Denies constipation, Denies diarrhea and Denies vomiting Genitourinary Genitourinary: Reports system reviewed and no additional complaints, except as documented Musculoskeletal Musculoskeletal: Reports back pain and Reports myalgias Neurologic Neurologic: Reports system reviewed and no additional complaints, except as documented Psychiatric Psychiatric: Reports anxiety Endocrine Endocrine: Reports fatigue Hematologic/Lymphatic Hematologic/Lymphatic: Denies easy bleeding and Denies easy bruising PFSH All Active Problems (Updated 01/25/23 @ 13:37 by Kapil Olivares MD) Abdominal pain (Acute) Personal history of nicotine dependence (Acute) Respiratory failure with hypoxia and hypercapnia (Acute) COPD exacerbation (Acute) Unintentional weight loss (Acute) Peripheral neuropathic pain (Acute) Encounter for palliative care (Acute) Encounter for hospice care discussion (Acute) Oxygen dependent (Acute) Nightmares (Acute) Altered mental status (Acute) Ambulatory dysfunction (Acute) Adult failure to thrive (Acute) Bullae (Acute) Cigarette smoker (Acute) Cognitive impairment (Chronic) Ambulatory dysfunction (Chronic) Current smoker (Acute) Lung bullae (Acute) Musculoskeletal chest pain (Chronic) Lethargy (Acute) Lung disease (Acute) Arthritis (Acute) Noncompliance with medication regimen (Acute) Depression (Chronic) UTI (urinary tract infection) (Acute) Polysubstance abuse (Chronic) Confusion (Acute) Orthostatic hypotension (Acute) PTSD (post-traumatic stress disorder) (Chronic) Discharge planning issues (Acute) Ambulatory dysfunction (Acute) COPD (chronic obstructive pulmonary disease) (Chronic) DVT prophylaxis (Acute) Left rib fracture (Acute) Rib fracture (Acute) Syncope (Chronic) Severe chronic obstructive pulmonary disease (Chronic) Systolic and diastolic CHF, chronic (Chronic) LBBB (left bundle branch block) (Chronic) Nonischemic dilated cardiomyopathy (Chronic) Medical History Acquired deformity of left hand Agoraphobia Anxiety Anxiety with depression Biventricular implantable cardioverter-defibrillator (ICD) in situ Mode:DDD, Low rate 60bpm, Atrial lead: medtronic 5076, SN: [id number] 09/27/14; RV lead Medtronic 6935M SN: [id number] 09/27/14; LV lead Medtronic 4396, SN; [id number] 09/27/14 (updated 03/11/20) BPH (benign prostatic hyperplasia) Cardiomyopathy CHF (congestive heart failure) Chronic pain syndrome Constipation COPD (chronic obstructive pulmonary disease) Cyst Diabetes Diarrhea Dizziness DVT prophylaxis Elevated d-dimer Erectile dysfunction Fatigue Hallucination Hand paresthesia Heart disease History of suicidal ideation History of tobacco abuse Hyperlipidemia Impacted ear wax Metacarpophalangeal joint pain Musculoskeletal chest pain Pacemaker Pain Pain in right hip Panic anxiety syndrome Skin lesion Tobacco use Surgical History Status post biventricular pacemaker Family History Mother , 2008 COPD (chronic obstructive pulmonary disease) Social History Smoking/Tobacco Use Status: Former Tobacco Use Quit Date: 03/08/22 Pack-years: 120 Smoking risk assessment performed?: Yes Alcohol Intake: former Drug use: Never Substance use type: does not use Household members: none Pets and animals: No What type of physical activity do you participate in: none Seatbelt use: always Do you feel safe at home: Yes Do you feel safe in your relationship?: Yes Additional Social history: lives alone Exam Const General: cooperative and no acute distress Nutritional Appearance: overweight Orientation: alert, awake and oriented x3 HENMT Head: normal to inspection Eyes General: appearance normal, both eyes and all related structures Neck Neck: normal visual inspection, full ROM, trachea midline and no lymphadenopathy noted Resp Effort & Inspection: audible wheezes and cough GI Inspection: normal to inspection, non-distended and obesity Palpation: soft, hernia umbilical (Reducible) and tender Percussion: normal to percussion Auscultation: normal bowel sounds Results Last Vital Signs Temp 98.2 F 01/25/23 08:23 Pulse 105 H 01/25/23 10:16 Resp 14 01/25/23 10:16 BP 138/68 01/25/23 10:16 Pulse Ox 95 01/25/23 10:16 Labs 01/25/23 08:20 01/25/23 08:20 Labs: Laboratory Results - last 24 hr 01/25/23 01/25/23 01/25/23 08:20 08:20 08:20 WBC RBC Hgb Hct MCV MCH MCHC RDW Plt Count MPV Immature Gran % Neutrophils % Lymphocytes % Monocytes % Eosinophils % Basophils % Nucleated RBC % Absolute Neutrophils Absolute Lymphocytes Absolute Monocytes Absolute Eosinophils Absolute Basophils D-Dimer 1001 H VBG pH VBG pCO2 VBG pO2 VBG HCO3 VBG Total CO2 VBG O2 Saturation VBG Base Excess Sodium 140 Cancelled Potassium 4.1 Cancelled Chloride 98 Cancelled Carbon Dioxide 34.3 H Cancelled Anion Gap 7.7 Cancelled BUN 7 Cancelled Creatinine 0.8 Cancelled Est GFR (CKD-EPI 2020) 101.95 Cancelled Glucose 146 H Cancelled Calcium 9.7 Cancelled Magnesium 3.5 H Cancelled Total Bilirubin 0.6 Cancelled AST 20 Cancelled ALT 33 Cancelled Alkaline Phosphatase 83 Cancelled Troponin I < 50 NT-Pro-B Natriuret Pep 523 H Total Protein 7.9 Cancelled Albumin 3.7 Cancelled Lipase COVID-19 Source SARS-CoV-2 (PCR) Influenza Type A (PCR) Influenza Type B (PCR) RSV (PCR) 01/25/23 01/25/23 01/25/23 08:20 08:47 08:47 WBC 11.21 H RBC 5.76 Hgb 17.2 Hct 51.4 H MCV 89 MCH 29.9 MCHC 33.5 RDW 13.2 Plt Count 211 MPV 10.5 Immature Gran % 0.4 Neutrophils % 79.1 Lymphocytes % 10.4 Monocytes % 9.4 Eosinophils % 0.2 Basophils % 0.5 Nucleated RBC % 0.0 Absolute Neutrophils 8.87 H Absolute Lymphocytes 1.17 L Absolute Monocytes 1.05 H Absolute Eosinophils 0.02 Absolute Basophils 0.06 D-Dimer VBG pH 7.39 VBG pCO2 54 H VBG pO2 47 VBG HCO3 33 H VBG Total CO2 28 VBG O2 Saturation 84 VBG Base Excess 8 H Sodium Potassium Chloride Carbon Dioxide Anion Gap BUN Creatinine Est GFR (CKD-EPI 2020) Glucose Calcium Magnesium Total Bilirubin AST ALT Alkaline Phosphatase Troponin I NT-Pro-B Natriuret Pep Total Protein Albumin Lipase COVID-19 Source Nasopharynx SARS-CoV-2 (PCR) Negative Influenza Type A (PCR) Negative Influenza Type B (PCR) Negative RSV (PCR) Negative 01/25/23 01/25/23 08:47 12:00 WBC RBC Hgb Hct MCV MCH MCHC RDW Plt Count MPV Immature Gran % Neutrophils % Lymphocytes % Monocytes % Eosinophils % Basophils % Nucleated RBC % Absolute Neutrophils Absolute Lymphocytes Absolute Monocytes Absolute Eosinophils Absolute Basophils D-Dimer VBG pH VBG pCO2 VBG pO2 VBG HCO3 VBG Total CO2 VBG O2 Saturation VBG Base Excess Sodium Potassium Chloride Carbon Dioxide Anion Gap BUN Creatinine Est GFR (CKD-EPI 2020) Glucose Calcium Magnesium Total Bilirubin AST ALT Alkaline Phosphatase Troponin I < 50 NT-Pro-B Natriuret Pep Total Protein Albumin Lipase 21 COVID-19 Source SARS-CoV-2 (PCR) Influenza Type A (PCR) Influenza Type B (PCR) RSV (PCR) Imaging Abdomen CT scan report/results: report reviewed and image reviewed CT scan - chest: report reviewed and image reviewed CT scan - pelvis: report reviewed and image reviewed
[2023-01-25] MEDS: Lactated Ringers 1,000 ML 125 ML IV (12:36)
[2023-01-25 13:42] LABS: Lab Add On Test DONE
[2023-01-25 14:12] LABS: Procalcitonin < 0.1 ng/mL
--- NOTE | 2023-01-25 15:07 | NUR.NOTE ---
Nursing Note: Patient was brought to the unit from the ER @ 1500. Via stretcher. Patient was places in bed, VS obtained. Call light & bedside table within reach.
[2023-01-25] MEDS: Heparin 5,000 UNITS/ML VIAL 5000 UNITS SC ×2 (15:15→21:12)
[2023-01-25] MEDS: Ipratropium 0.5 MG/2.5 ML UPD VIAL UPD ×2 (15:33→19:40)
[2023-01-25] MEDS: Levalbuterol 1.25 MG/3 ML UPD VIAL UPD (15:33)
[2023-01-25] MEDS: guaiFENesin 600 MG TABCR PO (19:39)
[2023-01-25] MEDS: ACETAMINOPHEN 1,000 MG/100 ML BTL 400 MG IVPB (19:39)
[2023-01-25] MEDS: Budesonide/Formoterol 80/4.5 6.9 GM 60 PUFF INH IH (19:41)
--- NOTE | 2023-01-25 19:55 | HPE_ITS ---
Date of service: 01/25/23 Time of Service: 19:55 Assessment and Plan Assessment and plan (1) COPD exacerbation: Status: Acute Assessment and plan: With a fever. While procalcitonin is negative, I am concerned for a superimposed bacterial process. Will start empiric zosyn. Check MRSA nares. Check Blood cultures. (2) SBO (small bowel obstruction): Status: Acute Assessment and plan: NPO overnight. Surgery following (3) Respiratory failure with hypoxia and hypercapnia: Status: Chronic Assessment and plan: Now at his baseline. Will treat with sheduled and prn nebs, steroids, abx. (4) Lung nodule: Status: Acute Assessment and plan: Will need outpatient follow up (5) Mass of gastroesophageal junction: Status: Acute Assessment and plan: Will need outpatient EGD (6) DVT prophylaxis: Status: Acute Assessment and plan: Sc heparin (7) Discharge planning issues: Status: Acute Assessment and plan: Full code Palliative care consulted History of Present Illness History of Present Illness Chief Complaint: Shortness of breath, abdominal pain Narrative: Mr Gay is a 57 year old male with PMHx of oxygen-dependent COPD, normally on 3L of O2 by [place], as well as H/o combined CHF s/p AICD, NICMO, PTSD, who presented to [facility] ED today w/ shortness of breath and abdominal pain. His workup was c/w COPD exacerbation and a small bowel obstruction. With nebulizer therapy his O2 requirement went down to its baseline of 3L. General surgery was consulted and felt that the patient would not require surgery for his intraabdominal process and the diagnosis of SBO was questioned. Importantly, his CT of the chest shows a mass at the GE junction, new prominent subcarinal, paraaortic, retroperitoneal adenopathy, a stellate lung nodule RUL. These finds are new. The patient states he has had nausea (no vomiting), diffuse abdominal pain, cough productive of yellow sputum x 4 days. He is nauseated now. He has been having numerous bowel movements (not diarrhea) through the weekend and states he has been able to pass flatus. Review of Systems All systems reviewed & are unremarkable except as noted in HPI and below PFSH All Active Problems (Updated 01/25/23 @ 20:11 by Lore Lynne MD) Mass of gastroesophageal junction (Acute) Lung nodule (Acute) SBO (small bowel obstruction) (Acute) Abdominal pain (Acute) Personal history of nicotine dependence (Acute) Respiratory failure with hypoxia and hypercapnia (Chronic) COPD exacerbation (Acute) Unintentional weight loss (Acute) Peripheral neuropathic pain (Acute) Encounter for palliative care (Acute) Encounter for hospice care discussion (Acute) Oxygen dependent (Acute) Nightmares (Acute) Altered mental status (Acute) Ambulatory dysfunction (Acute) Adult failure to thrive (Acute) Bullae (Acute) Cigarette smoker (Acute) Cognitive impairment (Chronic) Ambulatory dysfunction (Chronic) Current smoker (Acute) Lung bullae (Acute) Musculoskeletal chest pain (Chronic) Lethargy (Acute) Lung disease (Acute) Arthritis (Acute) Noncompliance with medication regimen (Acute) Depression (Chronic) UTI (urinary tract infection) (Acute) Polysubstance abuse (Chronic) Confusion (Acute) Orthostatic hypotension (Acute) PTSD (post-traumatic stress disorder) (Chronic) Discharge planning issues (Acute) Ambulatory dysfunction (Acute) COPD (chronic obstructive pulmonary disease) (Chronic) DVT prophylaxis (Acute) Left rib fracture (Acute) Rib fracture (Acute) Syncope (Chronic) Severe chronic obstructive pulmonary disease (Chronic) Systolic and diastolic CHF, chronic (Chronic) LBBB (left bundle branch block) (Chronic) Nonischemic dilated cardiomyopathy (Chronic) Medical History Acquired deformity of left hand Agoraphobia Anxiety Anxiety with depression Biventricular implantable cardioverter-defibrillator (ICD) in situ Mode:DDD, Low rate 60bpm, Atrial lead: medtronic 5076, SN: [id number] 09/27/14; RV lead Medtronic 6935M SN: [id number] 09/27/14; LV lead Medtronic 4396, SN; [id number] 09/27/14 (updated 03/11/20) BPH (benign prostatic hyperplasia) Cardiomyopathy CHF (congestive heart failure) Chronic pain syndrome Constipation COPD (chronic obstructive pulmonary disease) Cyst Diabetes Diarrhea Dizziness DVT prophylaxis Elevated d-dimer Erectile dysfunction Fatigue Hallucination Hand paresthesia Heart disease History of suicidal ideation History of tobacco abuse Hyperlipidemia Impacted ear wax Metacarpophalangeal joint pain Musculoskeletal chest pain Pacemaker Pain Pain in right hip Panic anxiety syndrome Skin lesion Tobacco use Surgical History Status post biventricular pacemaker Family History Mother , 2008 COPD (chronic obstructive pulmonary disease) Social History Smoking/Tobacco Use Status: Former Tobacco Use Quit Date: 03/08/22 Pack-years: 120 Smoking risk assessment performed?: Yes Alcohol Intake: former Drug use: Never Substance use type: does not use Household members: none Pets and animals: No What type of physical activity do you participate in: none Seatbelt use: always Do you feel safe at home: Yes Do you feel safe in your relationship?: Yes Additional Social history: lives alone Meds Allergies and Home Medications Allergies Allergy/AdvReac Type Severity Reaction Status Date / Time No Known Allergies Allergy Unverified 01/25/23 08:13 Home Medications Medication Instructions Recorded Confirmed Type pravastatin 20 mg tablet 20 mg PO QHS #10 tabs 03/17/20 01/25/23 Rx pantoprazole 40 mg tablet,delayed 40 mg PO DAILY@0730 #30 tabs 05/01/21 01/25/23 Rx release albuterol sulfate 90 mcg/actuation 2 puff inhalation Q4H WHILE AWAKE 02/05/22 01/25/23 History aerosol inhaler (ProAir HFA) PRN nitroglycerin 0.3 mg sublingual 0.3 mg sublingual Q5-15M PRN 02/19/22 01/25/23 History tablet acetaminophen 325 mg capsule 325 mg PO DAILY 03/28/22 01/25/23 History (Tylenol) budesonide-formoterol HFA 80 2 puff inhalation BID 03/28/22 01/19/23 History mcg-4.5 mcg/actuation aerosol inhaler montelukast 10 mg tablet 10 mg PO DAILY 03/28/22 01/25/23 History bupropion HCl 300 mg 24 hr tablet, 300 mg PO DAILY 03/29/22 01/25/23 History extended release tamsulosin 0.4 mg capsule 0.4 mg PO HS 03/29/22 01/25/23 History naloxone 4 mg/actuation nasal spray 4 mg intranasal Q2M PRN 07/21/22 01/25/23 History calcium carbonate 200 mg calcium 200 mg PO Q2H WHILE AWAKE PRN 10/29/22 01/19/23 Rx (500 mg) chewable tablet (Tums) dyspepsia #90 tabs clonazepam 1 mg tablet 1 mg PO BID 10/29/22 01/25/23 History gabapentin 300 mg tablet 300 mg PO BID 10/29/22 01/25/23 History guaifenesin 100 mg/5 mL oral liquid 200 mg (10 mL) PO Q4H PRN PRN 10/29/22 01/19/23 Rx congestion #1,000 mL ondansetron 4 mg disintegrating 4 mg PO Q8H PRN nausea and 11/20/22 01/19/23 Rx tablet vomiting #14 tabs polyethylene glycol 3350 17 gram 17 g PO BID #14 ea 11/20/22 01/25/23 Rx oral powder packet sennosides 8.6 mg tablet (senna) 8.6 mg PO BID PRN constipation #60 11/20/22 01/19/23 Rx tabs prednisone 10 mg tablet 10 mg PO DAILY #30 tabs 12/02/22 01/25/23 Rx ipratropium 0.5 mg-albuterol 3 mg 3 ml inhalation Q6H PRN PRN 12/07/22 01/25/23 Rx (2.5 mg base)/3 mL nebulization shortness of breath or wheezing soln #180 mL morphine concentrate 100 mg/5 mL 7.5 mg (0.375 mL) PO Q3H PRN pain 12/08/22 01/25/23 Rx (20 mg/mL) oral solution #500 mL buprenorphine 7.5 mcg/hour weekly 1 patch transdermal Q7D #4 ea 01/01/23 01/25/23 Rx transdermal patch benztropine 1 mg tablet 1 mg PO QHS 01/05/23 01/19/23 History famotidine 10 mg tablet 10 mg PO BID PRN 01/05/23 01/25/23 History nicotine 21 mg/24 hr daily 1 patch transdermal QDAY 01/05/23 01/19/23 History transdermal patch quetiapine 400 mg tablet,extended 400 mg PO HS 01/06/23 01/25/23 History release 24 hr (Seroquel XR) quetiapine 50 mg tablet,extended 50 mg PO HS 01/06/23 01/19/23 History release 24 hr (Seroquel XR) prednisone 20 mg tablet 20 mg PO DAILY #3 tabs 01/11/23 01/19/23 Rx guaifenesin 600 mg tablet,extended 600 mg PO BID PRN 01/25/23 01/25/23 History release Exam Narrative Exam Narrative: General: Pleasant middle-aged male who is dry heaving, A&Ox3, does not appear dyspneic/tachypneic Neurological: A&Ox3, no focal deficits Psychiatric: appropriate speech pattern/content, calm/cooperative Skin: Visible skin intact HEENT: Atraumatic, normocephalic, EOMI, dry MM, clear oropharynx, no submandibular or cervical lymphadenopathy, no goiter or JVD Cardiovascular: RRR, no m/r/g Lungs: wheezing on expiration B Gastrointestinal: soft, tender diffusely, + BS Genitourinary: deferred Extremities: no edema BLEs Results Imaging Additional studies: CT chest/abdomen/pelvis: 1. No evidence of acute pulmonary emboli nor pulmonary infarction. 2. New stellate nodule in the right upper lobe, possibly early neoplasm.? No other pulmonary findings nor pleural effusions.No hilar adenopathy. 3. New prominent subcarinal adenopathy as well as retroperitoneal adenopathy and adenopathy around the GE junction as well as new para-aortic adenopathy around the upper abdominal aorta.? There appears to be a probable mass at GE junction which may be the culprit mass for this new concerning adenopathy.? There are no metastatic lesions in the liver. 4.? There are dilated left of center jejunal loops measuring up to 3.8 cm, not previously present and with transition zone being in left side of the abdomen.? Small bowel loops distal to this level are small caliber.? Suspect element of small bowel obstruction.? No obvious mass discernible as the cause. 5. Asymmetric area of enhancement in the superior pole region of the left kidney which is possibly complicated cyst or other pathology.? Recommend further study with ultrasound. CXR: Nodular infiltrate lower right lung field, not evident on prior image of the 01/05/2023. Cardiac pacemaker.? No cardiomegaly.? No pulmonary edema. EKG: Atrially sensed ventricularly paced rhythm, HR 106, no acute ischemia Labs 01/25/23 08:20 01/25/23 08:20 Labs: Laboratory Results - last 24 hr 01/25/23 01/25/23 01/25/23 08:20 08:20 08:20 WBC RBC Hgb Hct MCV MCH MCHC RDW Plt Count MPV Immature Gran % Neutrophils % Lymphocytes % Monocytes % Eosinophils % Basophils % Nucleated RBC % Absolute Neutrophils Absolute Lymphocytes Absolute Monocytes Absolute Eosinophils Absolute Basophils D-Dimer 1001 H VBG pH VBG pCO2 VBG pO2 VBG HCO3 VBG Total CO2 VBG O2 Saturation VBG Base Excess Sodium 140 Cancelled Potassium 4.1 Cancelled Chloride 98 Cancelled Carbon Dioxide 34.3 H Cancelled Anion Gap 7.7 Cancelled BUN 7 Cancelled Creatinine 0.8 Cancelled Est GFR (CKD-EPI 2020) 101.95 Cancelled Glucose 146 H Cancelled Calcium 9.7 Cancelled Magnesium 3.5 H Cancelled Total Bilirubin 0.6 Cancelled AST 20 Cancelled ALT 33 Cancelled Alkaline Phosphatase 83 Cancelled Troponin I < 50 NT-Pro-B Natriuret Pep 523 H Total Protein 7.9 Cancelled Albumin 3.7 Cancelled Lipase Procalcitonin COVID-19 Source SARS-CoV-2 (PCR) Influenza Type A (PCR) Influenza Type B (PCR) RSV (PCR) Add-On Test Request 01/25/23 01/25/23 01/25/23 08:20 08:47 08:47 WBC 11.21 H RBC 5.76 Hgb 17.2 Hct 51.4 H MCV 89 MCH 29.9 MCHC 33.5 RDW 13.2 Plt Count 211 MPV 10.5 Immature Gran % 0.4 Neutrophils % 79.1 Lymphocytes % 10.4 Monocytes % 9.4 Eosinophils % 0.2 Basophils % 0.5 Nucleated RBC % 0.0 Absolute Neutrophils 8.87 H Absolute Lymphocytes 1.17 L Absolute Monocytes 1.05 H Absolute Eosinophils 0.02 Absolute Basophils 0.06 D-Dimer VBG pH 7.39 VBG pCO2 54 H VBG pO2 47 VBG HCO3 33 H VBG Total CO2 28 VBG O2 Saturation 84 VBG Base Excess 8 H Sodium Potassium Chloride Carbon Dioxide Anion Gap BUN Creatinine Est GFR (CKD-EPI 2020) Glucose Calcium Magnesium Total Bilirubin AST ALT Alkaline Phosphatase Troponin I NT-Pro-B Natriuret Pep Total Protein Albumin Lipase Procalcitonin COVID-19 Source Nasopharynx SARS-CoV-2 (PCR) Negative Influenza Type A (PCR) Negative Influenza Type B (PCR) Negative RSV (PCR) Negative Add-On Test Request 01/25/23 01/25/23 01/25/23 08:47 12:00 12:00 WBC RBC Hgb Hct MCV MCH MCHC RDW Plt Count MPV Immature Gran % Neutrophils % Lymphocytes % Monocytes % Eosinophils % Basophils % Nucleated RBC % Absolute Neutrophils Absolute Lymphocytes Absolute Monocytes Absolute Eosinophils Absolute Basophils D-Dimer VBG pH VBG pCO2 VBG pO2 VBG HCO3 VBG Total CO2 VBG O2 Saturation VBG Base Excess Sodium Potassium Chloride Carbon Dioxide Anion Gap BUN Creatinine Est GFR (CKD-EPI 2020) Glucose Calcium Magnesium Total Bilirubin AST ALT Alkaline Phosphatase Troponin I < 50 NT-Pro-B Natriuret Pep Total Protein Albumin Lipase 21 Procalcitonin COVID-19 Source SARS-CoV-2 (PCR) Influenza Type A (PCR) Influenza Type B (PCR) RSV (PCR) Add-On Test Request DONE 01/25/23 12:00 WBC RBC Hgb Hct MCV MCH MCHC RDW Plt Count MPV Immature Gran % Neutrophils % Lymphocytes % Monocytes % Eosinophils % Basophils % Nucleated RBC % Absolute Neutrophils Absolute Lymphocytes Absolute Monocytes Absolute Eosinophils Absolute Basophils D-Dimer VBG pH VBG pCO2 VBG pO2 VBG HCO3 VBG Total CO2 VBG O2 Saturation VBG Base Excess Sodium Potassium Chloride Carbon Dioxide Anion Gap BUN Creatinine Est GFR (CKD-EPI 2020) Glucose Calcium Magnesium Total Bilirubin AST ALT Alkaline Phosphatase Troponin I NT-Pro-B Natriuret Pep Total Protein Albumin Lipase Procalcitonin < 0.1 COVID-19 Source SARS-CoV-2 (PCR) Influenza Type A (PCR) Influenza Type B (PCR) RSV (PCR) Add-On Test Request Last Vital Signs Temp 38.5 C H 01/25/23 19:39 Pulse 97 H 01/25/23 19:11 Resp 24 01/25/23 19:11 BP 138/77 01/25/23 19:11 Pulse Ox 98 01/25/23 19:11 Time Spent Time spent with Patient: 55-74 minutes Time was spent: preparing to see the patient(eg.review tests), obtaining and/or reviewing separately otained hiistory, ordering medications,tests, procedures, referring, communicating with other health nurse care manager, indepentently interpreting results, counseling the patient and care coordination
[2023-01-25] MEDS: MORPHine 4 MG/ML SYR IVP (20:30)
[2023-01-25] MEDS: PIPERACILLIN/TAZO 3.375 GM in Normal Saline 50 ML IVPB (21:10)
[2023-01-25] MEDS: Tamsulosin 0.4 MG CAPCR PO (21:10)
[2023-01-25] MEDS: Lactated Ringers 1,000 ML 75 ML IV (21:35)
[2023-01-26] VITALS (11 sets, daily range): BP systolic 108–127; BP diastolic 63–73; PULSE 87–112; RESP 4–20; TEMP 36.6–37.2; O2SAT 91–98
--- NOTE | 2023-01-26 | DI.US_ITS ---
Exam(s) US RENAL EXAM: US RENAL CLINICAL HISTORY: mass left kidney superior pole. TECHNIQUE: Montesinos scale, color and spectral Doppler were used. COMPARISON: CT CT CHEST PE CTA from 02/05/[address] ABDOMEN PELVIS W from 02/18/[address] CHEST PE CTA from 04/01/[address] CHEST PE ABD PELVIS W from 01/25/2023 FINDINGS: Renal size in cm: Right: 11.7 left: 10.0 Echogenicity: Normal Hydronephrosis: No Cyst or mass: Septated cyst in 14 x 16 millimeter superior pole left kidney. Nephrolithiasis: No Bladder:Normal. Both ureteral jets visualized. Prevoid vol:210 Postvoid vol:Patient unable to void. IMPRESSION: Low-density lesion on CT is too small to characterize and not definitely simple on CT. Ultrasound fi ndings suggest a septated cyst. Follow-up ultrasound or CT could be considered in 6 months. DATA REPOSITORY:
[2023-01-26] MEDS: PIPERACILLIN/TAZO 3.375 GM in Normal Saline 50 ML IVPB ×4 (01:49→20:30)
[2023-01-26] MEDS: Heparin 5,000 UNITS/ML VIAL 5000 UNITS SC ×3 (05:40→20:32)
[2023-01-26] MEDS: Levalbuterol 1.25 MG/3 ML UPD VIAL UPD ×3 (06:45→19:01)
[2023-01-26 06:46] LABS: Abs Immature Grans 0.06 10^3/uL (0.0-0.06); Absolute Basophil Count 0.02 10^3/uL (0.0-0.2); Absolute Eosinophil Count 0.01 10^3/uL (0.0-0.7); Absolute Lymphocyte Count 1.04 10^3/uL (1.2-3.4); Absolute Monocyte Count 1.23 10^3/uL (0.1-0.8); Absolute Neutrophil Count 8.73 10^3/uL (1.2-6.7); Basophils % 0.2; Eosinophils % 0.1; HCT 43.4 % (40.0-50.0); HGB 14.4 g/dL (13.5-17.5); Immature Grans % 0.5; Lymphocytes % 9.4; MCH 30.1 pg (27.0-33.0); MCHC 33.2 % (32.0-36.0); MCV 91 fL (80-95); MPV 10.4 fL (8.0-11.0); Monocytes % 11.1; Neutrophils % 78.7; Platelet Count 174 10^3/uL (130-400); RBC 4.79 10^6/uL (4.36-5.78); RDW 13.1 % (11.8-14.1); RDW-SD 43.1 fL; WBC 11.09 10^3/uL (4.4-10.8)
[2023-01-26 06:57] LABS: Anion Gap 4.3 mmol/L (3-11); BUN 13 mg/dL (7-18); CO2 31.7 mmol/L (21.0-32.0); CREATININE 0.9 mg/dL (0.70-1.30); Calcium 8.8 mg/dL (8.5-10.1); Chloride 103 mmol/L (98-107); Estimated GFR 98.38 (mL/min/1.73m2); Glucose 117 mg/dL (74-106); Magnesium 2.1 mg/dL (1.8-2.4); Potassium 4.5 mmol/L (3.5-5.1); Sodium 139 mmol/L (136-145)
[2023-01-26] MEDS: Budesonide/Formoterol 80/4.5 6.9 GM 60 PUFF INH IH ×2 (07:46→20:30)
[2023-01-26] MEDS: Ipratropium 0.5 MG/2.5 ML UPD VIAL UPD ×4 (07:46→20:30)
[2023-01-26] MEDS: Pantoprazole 40 MG VIAL IVP (10:31)
[2023-01-26] MEDS: methylPREDNISolone SUCC 40 MG VIAL IVP (10:31)
[2023-01-26] MEDS: buPROPion-XL 150 MG TABCR 300 MG PO (10:39)
[2023-01-26] MEDS: Gabapentin 300 MG CAP PO ×2 (10:39→20:30)
[2023-01-26] MEDS: Montelukast 10 MG TAB PO (10:40)
[2023-01-26] MEDS: guaiFENesin 600 MG TABCR PO ×2 (10:40→20:30)
[2023-01-26] MEDS: clonazePAM 1 MG TAB PO ×2 (10:40→20:30)
--- NOTE | 2023-01-26 10:45 | DI.RAD_ITS ---
Exam(s) XR ABDOMEN FLAT UPRIGHT EXAM: 2D digital imaging was performed. CLINICAL HISTORY: sbo. COMPARISON: CT CT CHEST PE ABD PELVIS W from 01/25/2023 TECHNIQUE: Supine and uprightSupine and Lateral views of the abdomen were performed. FINDINGS: BOWEL GAS PATTERN: Nondistended.No free air.Normal quantity of stool. CALCIFICATIONS: No urinary tract calcifications. OSSEOUS STRUCTURES: Normal for age. Visualized portions of chest: Unremarkable. Pacemaker leads. IMPRESSION: 1. Nonobstructive bowel gas pattern. 2. No radiopaque calculi. 3. No free air. DATA REPOSITORY: RADIATION DOSE DELIVERED:
[2023-01-26] MEDS: Lactated Ringers 1,000 ML 75 ML IV (10:54)
--- NOTE | 2023-01-26 11:09 | PGE_ITS ---
Date of Service Date of service: 01/26/23 Time of Service: 11:10 Assessment and Plan Assessment and plan (1) AICD (automatic cardioverter/defibrillator) present: Status: Acute (2) Mass of gastroesophageal junction: Status: Acute Assessment and plan: needs EGD. will d/w anesthesia wether they think he is a candidate for scope at [facility] (3) Mass of upper lobe of right lung: Status: Acute Assessment and plan: requires CT guiged bx. Diff position as it is adjacent to bulla. High risk PTX. (4) Personal history of nicotine dependence: Status: Acute Assessment and plan: pt states he stopped/ (5) Mass of esophagus: Status: Acute Assessment and plan: awaiting anesthesia eval once pt recovered from COPD (6) Respiratory failure with hypoxia and hypercapnia: Status: Chronic (7) COPD exacerbation: Status: Acute (8) SBO (small bowel obstruction): Status: Acute Assessment and plan: -resolved -Trial of clear liquids: -hold IV fluid. If any nausea vomiting return -IV fluid (9) Unintentional weight loss: Status: Acute (10) Oxygen dependent: Status: Acute (11) Bullae: Status: Acute (12) Left kidney mass: Status: Acute Assessment and plan: us ordered (13) Polysubstance abuse: Status: Chronic (14) COPD (chronic obstructive pulmonary disease): Status: Chronic Qualifiers: COPD type: unspecified COPD Qualified Code(s): J44.9 - Chronic obstructive pulmonary disease, unspecified (15) LBBB (left bundle branch block): Status: Chronic (16) Nonischemic dilated cardiomyopathy: Status: Chronic (17) Severe chronic obstructive pulmonary disease: Status: Chronic (18) Systolic and diastolic CHF, chronic: Status: Chronic (19) Biventricular implantable cardioverter-defibrillator (ICD) in situ: (20) BPH (benign prostatic hyperplasia): (21) Cardiomyopathy: (22) Chronic pain syndrome: (23) Diabetes: Subjective Subjective Interval history since last seen: Pt is doing OK. no headaches. no dysuria. no leg pain or swelling. He is passing gas. He denies any swallowing problems and states his lungs are the problem. He has nto had a BM since hospitalization. Denies N/V. Pt is thirsty and would like something to drink. Exam Const General: frail appearing Nutritional Appearance: malnourished Orientation: alert, awake and oriented x3 Resp Effort & Inspection: normal respiratory effort and able to speak in complete sentences GI Palpation: soft, hernia umbilical and nontender Other: umbilical hernia- soft and reducible. Pt states it is tender. good BS. Objective Last Vital Signs Temp 36.6 C 01/26/23 07:56 Pulse 87 01/26/23 07:56 Resp 18 01/26/23 07:56 BP 113/63 01/26/23 07:56 Pulse Ox 98 01/26/23 07:56 Laboratory Results - last 24 hr 01/25/23 01/25/23 01/25/23 12:00 12:00 12:00 WBC RBC Hgb Hct MCV MCH MCHC RDW Plt Count MPV Immature Gran % Neutrophils % Lymphocytes % Monocytes % Eosinophils % Basophils % Nucleated RBC % Absolute Neutrophils Absolute Lymphocytes Absolute Monocytes Absolute Eosinophils Absolute Basophils Sodium Potassium Chloride Carbon Dioxide Anion Gap BUN Creatinine Est GFR (CKD-EPI 2020) Glucose Calcium Magnesium Troponin I < 50 Procalcitonin < 0.1 Add-On Test Request DONE 01/26/23 01/26/23 06:05 06:05 WBC 11.09 H RBC 4.79 Hgb 14.4 D Hct 43.4 MCV 91 MCH 30.1 MCHC 33.2 RDW 13.1 Plt Count 174 MPV 10.4 Immature Gran % 0.5 Neutrophils % 78.7 Lymphocytes % 9.4 Monocytes % 11.1 Eosinophils % 0.1 Basophils % 0.2 Nucleated RBC % 0.0 Absolute Neutrophils 8.73 H Absolute Lymphocytes 1.04 L Absolute Monocytes 1.23 H Absolute Eosinophils 0.01 Absolute Basophils 0.02 Sodium 139 Potassium 4.5 Chloride 103 Carbon Dioxide 31.7 Anion Gap 4.3 BUN 13 Creatinine 0.9 Est GFR (CKD-EPI 2020) 98.38 Glucose 117 H Calcium 8.8 Magnesium 2.1 Troponin I Procalcitonin Add-On Test Request Time Spent with Patient Time Spent with Patient: 25-34 minutes Time was spent: preparing to see the patient(eg.review tests), obtaining and/or reviewing separately otained hiistory, ordering medications,tests, procedures, referring, communicating with other health anesthesiologist and critical care, indepentently interpreting results and care coordination
--- NOTE | 2023-01-26 15:26 | W.PM.PROGNOT ---
Date of Service Date of service: 01/26/23 Time of Service: 15:28 Assessment and Plan Assessment and plan (1) COPD exacerbation: Status: Acute Assessment and plan: With a fever. Continue empiric zosyn. Check MRSA nares. Await blood cultures. Continue steroids, scheduled + prn meds. Encourage pulmonary toilet. (2) SBO (small bowel obstruction): Status: Resolved Assessment and plan: Resolved clinically. Trialing a clear liquid diet. (3) Respiratory failure with hypoxia and hypercapnia: Status: Chronic Assessment and plan: Now at his baseline. Will treat with sheduled and prn nebs, steroids, abx. (4) Lung nodule: Status: Acute Assessment and plan: Will need outpatient follow up (5) Mass of gastroesophageal junction: Status: Acute Assessment and plan: Discussed with general surgery - may be able to get an EGD next week when COPD exacerbation is all better, potentially even at our facility. (6) Left kidney mass: Status: Acute Assessment and plan: US pending (7) DVT prophylaxis: Status: Acute Assessment and plan: Sc heparin (8) Discharge planning issues: Status: Acute Assessment and plan: Full code Palliative care consulted Discussed with Dr Lemus and Shanique Gonzalez Subjective Subjective Interval history since last seen: William states that he is feeling better. Breathing is better. Abdomen is not hurting. Nausea has resolved. Has had a BM. Evaluated by general surgery - allowed to have a diet. Met with palliative care. Exam Narrative Exam Narrative: General: Pleasant middle-aged male who looks better, A&Ox3, does not appear dyspneic/tachypneic while laying flat. Does cough HEENT: EOMI, MMM Cardiovascular: RRR, no m/r/g Lungs: wheezing on expiration B Gastrointestinal: soft, nontender, nondistended Extremities: no edema BLEs Objective Last Vital Signs Temp 36.8 C 01/26/23 14:46 Pulse 94 H 01/26/23 14:46 Resp 19 01/26/23 14:46 BP 127/69 01/26/23 14:46 Pulse Ox 94 01/26/23 14:46 Laboratory Results - last 24 hr 01/26/23 01/26/23 06:05 06:05 WBC 11.09 H RBC 4.79 Hgb 14.4 D Hct 43.4 MCV 91 MCH 30.1 MCHC 33.2 RDW 13.1 Plt Count 174 MPV 10.4 Immature Gran % 0.5 Neutrophils % 78.7 Lymphocytes % 9.4 Monocytes % 11.1 Eosinophils % 0.1 Basophils % 0.2 Nucleated RBC % 0.0 Absolute Neutrophils 8.73 H Absolute Lymphocytes 1.04 L Absolute Monocytes 1.23 H Absolute Eosinophils 0.01 Absolute Basophils 0.02 Sodium 139 Potassium 4.5 Chloride 103 Carbon Dioxide 31.7 Anion Gap 4.3 BUN 13 Creatinine 0.9 Est GFR (CKD-EPI 2020) 98.38 Glucose 117 H Calcium 8.8 Magnesium 2.1 Time Spent with Patient Time Spent with Patient: 35-49 minutes Time was spent: preparing to see the patient(eg.review tests), obtaining and/or reviewing separately otained hiistory, ordering medications,tests, procedures, referring, communicating with other health director of managed care, indepentently interpreting results, counseling the patient and care coordination
--- NOTE | 2023-01-26 15:51 | PCNE_ITS ---
Date of service: 01/26/23 Time of Service: 13:30 History of Present Illness Narrative: Mr. Thomas is a 57 y/o M currently inpatient at [facility] 2/2 COPD exacerbation; PMHx sig for end stage COPD, depression, anxiety, PTSD, pacemaker William presented to [facility] ED 01/25 w/CC worsening SOB, admitted inpatient w/COPD exacerbation; he was recently hospitalized (01/05-01/11) w/similar presentation; concerns for SBO initially, cleared from surgery to restart clear liquid diet; concerning new findings for potential malignancy, recommending EGD for diagnostics, may be done outpatient, surgery following. William is feeling okay today, happy to be back eating and drinking again, was not concerned for potential SBO, reports has not moved bowels yet, but does feel the need to go. continues to have pain, buprenorphine patch not in place, he is unsure of hwen it was last removed; breathing has been at his baseline; denies N/V Cuca has started house keeping, he is very happy with the work that has been done and is looking forward to ongoing support w/instrumental ADLs staff report he is doing well, at his baseline; able to stand at urinal, c/o pain 9/10 constantly, morphine q3h PRN, he will ask for it earlier occasionally; considering EGD at [facility], anesthesia will want pulmonology support at bedside, agree to consider EGD utility, concerns for outpatient f/u and transportation/keeping appt William already has significant supports with [facility], [facility] and palliative care. Is on RETAIL OPERATIONS MANAGER through [facility]; The services will all continue Assessment and Plan Assessment and plan (1) Left kidney mass: Status: Acute (2) Mass of esophagus: Status: Acute (3) Mass of upper lobe of right lung: Status: Acute (4) AICD (automatic cardioverter/defibrillator) present: Status: Acute (5) Mass of gastroesophageal junction: Status: Acute (6) Personal history of nicotine dependence: Status: Acute (7) COPD exacerbation: Status: Acute (8) Peripheral neuropathic pain: Status: Acute (9) Ambulatory dysfunction: Status: Chronic (10) Severe chronic obstructive pulmonary disease: Status: Chronic (11) Anxiety: (12) Advanced care planning/counseling discussion: Status: Acute (13) Encounter for palliative care: Status: Acute Assessment and plan: PC to continue to follow William through inpatient admission and back home on discharge, f/u scheduled for tomorrow - reviewed EGD briefly, Dr. Lynne to review again this afternoon; discussed imaging to review abnormal findings on previous images; William's preferences at this time would be to do the EGD outpatient, and to focus on COPD exacerbations now - started reviewing pros and cons related to SNF on discharge - con: concerns/phobia of home staying safe, interacting w/increased people; pros: meal assistance, I agree it would be a good idea - potential d/c to local SNF recommended so his team: counsellor [facility], [facility], [facility] (Bhupinder, RN), and RETAIL OPERATIONS MANAGER team may continue to follow him closely; recommend staff member from accepting location come to meet William in hospital to ease transition - recommend PT consult - need f/u on: potential cancer diagnosis, William's preferences in work-up, treatment, management; identifying HCA or state appointed, importance of AD completion to give his voice in future decision making Review of Systems Narrative: as per HPI PFSH All Active Problems (Updated 01/26/23 @ 16:35 by Shanique Gonzalez NP) Advanced care planning/counseling discussion (Acute) Left kidney mass (Acute) superior pole US ordered 01/26/23 Mass of esophagus (Acute) by CT Mass of upper lobe of right lung (Acute) by CT AICD (automatic cardioverter/defibrillator) present (Acute) Mass of gastroesophageal junction (Acute) Lung nodule (Acute) Abdominal pain (Acute) Personal history of nicotine dependence (Acute) Respiratory failure with hypoxia and hypercapnia (Chronic) COPD exacerbation (Acute) Unintentional weight loss (Acute) Peripheral neuropathic pain (Acute) Encounter for palliative care (Acute) Encounter for hospice care discussion (Acute) Oxygen dependent (Acute) Nightmares (Acute) Altered mental status (Acute) Ambulatory dysfunction (Acute) Adult failure to thrive (Acute) Bullae (Acute) Cigarette smoker (Acute) Cognitive impairment (Chronic) Ambulatory dysfunction (Chronic) Current smoker (Acute) Lung bullae (Acute) Musculoskeletal chest pain (Chronic) Lethargy (Acute) Lung disease (Acute) Arthritis (Acute) Noncompliance with medication regimen (Acute) Depression (Chronic) UTI (urinary tract infection) (Acute) Polysubstance abuse (Chronic) Confusion (Acute) Orthostatic hypotension (Acute) PTSD (post-traumatic stress disorder) (Chronic) Discharge planning issues (Acute) Ambulatory dysfunction (Acute) COPD (chronic obstructive pulmonary disease) (Chronic) DVT prophylaxis (Acute) Left rib fracture (Acute) Rib fracture (Acute) Syncope (Chronic) Severe chronic obstructive pulmonary disease (Chronic) Systolic and diastolic CHF, chronic (Chronic) LBBB (left bundle branch block) (Chronic) Nonischemic dilated cardiomyopathy (Chronic) Medical History Acquired deformity of left hand Agoraphobia Anxiety Anxiety with depression Biventricular implantable cardioverter-defibrillator (ICD) in situ Mode:DDD, Low rate 60bpm, Atrial lead: medtronic 5076, SN: [id number] 09/27/14; RV lead Medtronic 6935M SN: [id number] 09/27/14; LV lead Medtronic 4396, SN; TRACIE [id number] 09/27/14 (updated 03/11/20) BPH (benign prostatic hyperplasia) Cardiomyopathy CHF (congestive heart failure) Chronic pain syndrome Constipation COPD (chronic obstructive pulmonary disease) Cyst Diabetes Diarrhea Dizziness DVT prophylaxis Elevated d-dimer Erectile dysfunction Fatigue Hallucination Hand paresthesia Heart disease History of suicidal ideation History of tobacco abuse Hyperlipidemia Impacted ear wax Metacarpophalangeal joint pain Musculoskeletal chest pain Pacemaker Pain Pain in right hip Panic anxiety syndrome Skin lesion Tobacco use Surgical History Status post biventricular pacemaker Family History Mother , 2008 COPD (chronic obstructive pulmonary disease) Social History Smoking/Tobacco Use Status: Former Tobacco Use Quit Date: 03/08/22 Pack-years: 120 Smoking risk assessment performed?: Yes Alcohol Intake: former Drug use: Never Substance use type: does not use Household members: none Pets and animals: No What type of physical activity do you participate in: none Seatbelt use: always Do you feel safe at home: Yes Do you feel safe in your relationship?: Yes Additional Social history: lives alone Exam Const General: cooperative, comfortable, no acute distress and ill appearing chronically Nutritional Appearance: overweight Limitations: behavioral limitations Other: participating in bedside ultrasound at beginning of bedside, self-transitions lying to sitting independently HENMT Head: normal to inspection, normocephalic and atraumatic Ears: hearing grossly normal bilaterally Resp Effort & Inspection: able to speak in complete sentences, tachypneic and tripod positioning Psych Appearance: grossly normal Speech and Movement: speech clear Mood: congruent mood Affect: normal affect and anxious affect Attitude: cooperative Thought Process: impoverished and loose association Thought Content: normal Insight: limited Judgment: limited Results Last Vital Signs Temp 98.2 F 01/26/23 14:46 Pulse 94 H 01/26/23 14:46 Resp 19 01/26/23 14:46 BP 127/69 01/26/23 14:46 Pulse Ox 94 01/26/23 14:46 Labs 01/26/23 06:05 01/26/23 06:05 Labs: Laboratory Results - last 24 hr 01/26/23 01/26/23 06:05 06:05 WBC 11.09 H RBC 4.79 Hgb 14.4 D Hct 43.4 MCV 91 MCH 30.1 MCHC 33.2 RDW 13.1 Plt Count 174 MPV 10.4 Immature Gran % 0.5 Neutrophils % 78.7 Lymphocytes % 9.4 Monocytes % 11.1 Eosinophils % 0.1 Basophils % 0.2 Nucleated RBC % 0.0 Absolute Neutrophils 8.73 H Absolute Lymphocytes 1.04 L Absolute Monocytes 1.23 H Absolute Eosinophils 0.01 Absolute Basophils 0.02 Sodium 139 Potassium 4.5 Chloride 103 Carbon Dioxide 31.7 Anion Gap 4.3 BUN 13 Creatinine 0.9 Est GFR (CKD-EPI 2020) 98.38 Glucose 117 H Calcium 8.8 Magnesium 2.1
--- NOTE | 2023-01-26 16:31 | INITIAL_ITS ---
- If Service Date Differs Date of service: 01/26/23 Time of Service: 16:31 Care Management Initial Assess REASON FOR HOSPITALIZATION:: Acute exacerbation of COPD, SBO PAST MEDICAL HISTORY/PAST SURGICAL HISTORY:: All Active Problems. Mass of gastroesophageal junction (Acute). Lung nodule (Acute). SBO (small bowel obstruction) (Acute). Abdominal pain (Acute). Personal history of nicotine dependence (Acute). Respiratory failure with hypoxia and hypercapnia (Chronic). COPD exacerbation (Acute). Unintentional weight loss (Acute). Peripheral neuropathic pain (Acute). Encounter for palliative care (Acute). Encounter for hospice care discussion (Acute). Oxygen dependent (Acute). Nightmares (Acute). Altered mental status (Acute). Ambulatory dysfunction (Acute). Adult failure to thrive (Acute). Bullae (Acute). Cigarette smoker (Acute). Cognitive impairment (Chronic). Ambulatory dysfunction (Chronic). Current smoker (Acute). Lung bullae (Acute). Musculoskeletal chest pain (Chronic). Lethargy (Acute). Lung disease (Acute). Arthritis (Acute). Noncompliance with medication regimen (Acute). Depression (Chronic). UTI (urinary tract infection) (Acute). Polysubstance abuse (Chronic). Confusion (Acute). Orthostatic hypotension (Acute). PTSD (post-traumatic stress disorder) (Chronic). Discharge planning issues (Acute). Ambulatory dysfunction (Acute). COPD (chronic obstructive pulmonary disease) (Chronic). DVT prophylaxis (Acute). Left rib fracture (Acute). Rib fracture (Acute). Syncope (Chronic). Severe chronic obstructive pulmonary disease (Chronic). Systolic and diastolic CHF, chronic (Chronic). LBBB (left bundle branch block) (Chronic). Nonischemic dilated cardiomyopathy (Chronic). Medical History. Acquired deformity of left hand. Agoraphobia. Anxiety. Anxiety with depression. Biventricular imp lantable cardioverter-defibrillator (ICD) in situ. Mode:DDD, Low rate 60bpm, Atrial lead: medtronic 5076, SN: [id number] 09/27/14; RV lead Medtronic 6935M SN: [id number] 09/27/14; LV lead Medtronic 4396, SN; TRACIE [id number] 09/27/14 (updated 03/11/20). BPH (benign prostatic hyperplasia). Cardiomyopathy. CHF (congestive heart failure). Chronic pain syndrome. Constipation. COPD (chronic obstructive pulmonary disease). Cyst. Diabetes. Diarrhea. Dizziness. DVT prophylaxis. Elevated d-dimer. Erectile dysfunction. Fatigue. Hallucination. Hand paresthesia. Heart disease. History of suicidal ideation. History of tobacco abuse. Hyperlipidemia. Impacted ear wax. Metacarpophalangeal joint pain. Musculoskeletal chest pain. Pacemaker. Pain. Pain in right hip. Panic anxiety syndrome. Skin lesion. Tobacco use. Surgical History. Status post biventricular pacemaker PREVIOUS FUNCTIONAL STATUS/SOCIAL/FAMILY SUPPORTS:: William lives alone in a two story home in [place], [place]. 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 He previously enjoyed hunting, fishing, target shooting, and wood working, but his recreation has been reduced due to his declining health. He is supported by ELECTRONIC WARFARE OFFICER in the community, and he is closely followed by Palliative care. He is independent with ADL's at baseline, and is oxygen dependent. CURRENT FUNCTIONAL STATUS:: William was sitting up on the edge of the bed when CM met with him. He stated that he is doing ok. He reported that today he has had an ultrasound and xray, trying to determine if he has a small bowel obstruction. He also reported that he was able to have clear liquids this afternoon, which he was happy about, as he was feeling very hungry. CM discussed the option of going to a SNF for short term rehab prior to returning home, and he stated that he would think about it. CM will continue to follow. ADVANCE DIRECTIVES:: [facility] form on file, Toña Ana Luisa listed as agent. Has patient been provided with info about the portal/API?: Yes Did the patient sign up for the portal?: No CODE STATUS:: Full Code INSURANCE COVERAGE / FINANCIAL ISSUES:: [facility] CURRENT HOME/COMMUNITY SERVICES/EQUIPMENT:: E[employer] OFFICER, HH RN, Palliative care PRIMARY CARE PHYSICIAN:: Lorrie Crespo POTENTIAL DISCHARGE NEEDS:: Evaluations for further needs, possible SNF referrals, follow up appointments. PATIENT/FAMILY EDUCATION NEEDS:: Review discharge instructions and limitations, discussion of self care needs including ask me three. ANTICIPATED BARRIERS TO DISCHARGE:: None identified. TRANSPORTATION:: Via ELECT[employer] WARFARE OFFICER vs [facility], private vehicle. PLAN:: Anticipate William will return home when medically cleared, with a resumption of HH services vs SNF, if agreeable. CM will coordinate [facility] private vehicle when ready. He will follow up with ELECTRONIC WARFARE OFFICER, Palliative care, his PCP, and discharge plan of care. CM will continue to follow. Readmission - Within the Past 30 Days Yes or No: Y - Date of First Admission Date of 1st Admission: 01/05/23 - Date of this Admission Date of Admission: 01/25/23 This admission was: Through ED - Office Visit Since 1st Admission Have you seen your PCP in the office since discharge?: Yes Date of PCP Appointment: 01/21/23 Describe barriers for scheduling or getting an appointment: William at times does not make it to his appointments due to not feeling well. His respiratory status is often a barrier. - I. Interview patient and/or Family Difficulty reaching your doctor or getting an office appt?: No Have you had trouble purchasing/ or taking medication?: No How do you take your medications and set up your pills?: E[employer] W[employer] OFFICER delivers meds daily Have you had trouble with getting meals at home?: No Did you feel ready for discharge when you left the last time: No Why did you not feel ready for discharge?: William felt that his respiratory status and physical mobility were still limited prior to returning home. Were services received that you thought were set up on disch: Yes What services were received?: RN, ELECT[employer] W[employer]FARE OFFICER daily med drops and community support. Did you call your physician beore you came to the ED?: No Did your physician tell you to come in?: No How do you think you became sick enough to come back?: William was feeling short of breath when he came to the ED. - ED visits How many ED visits in the past 12 months: 6 - Assessment for Readmission Summary of readmission circumstances, based upon interviews: William reported that he didn't feel quite ready for discharge on his last admission, although he was at his baseline O2 and mobility status. He felt increasing shortness of breath at home, and returned to the ED. He is closely followed by ELECTRONIC WARFARE OFFICER and Palliative care in the community.
[2023-01-26] MEDS: Tamsulosin 0.4 MG CAPCR PO (20:30)
[2023-01-26] MEDS: Protein Nutritional Supplement 16 GM 1 OUNCE PACKET PO (20:55)
[2023-01-27] VITALS (17 sets, daily range): BP systolic 110–125; BP diastolic 61–73; PULSE 71–107; RESP 4–24; TEMP 36.4–36.9; O2SAT 94–98
[2023-01-27] MEDS: PIPERACILLIN/TAZO 3.375 GM in Normal Saline 50 ML IVPB ×4 (01:25→21:33)
[2023-01-27] MEDS: Levalbuterol 1.25 MG/3 ML UPD VIAL UPD ×4 (02:41→17:16)
[2023-01-27] MEDS: Heparin 5,000 UNITS/ML VIAL 5000 UNITS SC ×3 (05:46→21:37)
[2023-01-27 06:36] LABS: Abs Immature Grans 0.02 10^3/uL (0.0-0.06); Absolute Basophil Count 0.02 10^3/uL (0.0-0.2); Absolute Eosinophil Count 0.04 10^3/uL (0.0-0.7); Absolute Lymphocyte Count 1.08 10^3/uL (1.2-3.4); Absolute Monocyte Count 0.88 10^3/uL (0.1-0.8); Absolute Neutrophil Count 6.06 10^3/uL (1.2-6.7); Basophils % 0.2; Eosinophils % 0.5; HGB 13.6 g/dL (13.5-17.5); Immature Grans % 0.2; Lymphocytes % 13.3; MCHC 33.2 % (32.0-36.0); MCV 90 fL (80-95); MPV 10.2 fL (8.0-11.0); Monocytes % 10.9; Neutrophils % 74.9; Platelet Count 188 10^3/uL (130-400); RBC 4.54 10^6/uL (4.36-5.78); RDW 13.4 % (11.8-14.1)
[2023-01-27 07:11] LABS: Anion Gap 3.5 mmol/L (3-11); BUN 10 mg/dL (7-18); CO2 33.5 mmol/L (21.0-32.0); CREATININE 0.9 mg/dL (0.70-1.30); Calcium 8.8 mg/dL (8.5-10.1); Chloride 104 mmol/L (98-107); Estimated GFR 98.38 (mL/min/1.73m2); Glucose 110 mg/dL (74-106); Magnesium 2.1 mg/dL (1.8-2.4); Potassium 3.6 mmol/L (3.5-5.1); Sodium 141 mmol/L (136-145)
[2023-01-27] MEDS: Budesonide/Formoterol 80/4.5 6.9 GM 60 PUFF INH IH ×2 (07:30→21:32)
[2023-01-27] MEDS: Ipratropium 0.5 MG/2.5 ML UPD VIAL UPD ×4 (07:30→21:38)
[2023-01-27] MEDS: Protein Nutritional Supplement 16 GM 1 OUNCE PACKET PO ×3 (08:12→21:36)
[2023-01-27] MEDS: guaiFENesin 600 MG TABCR PO ×2 (08:13→21:38)
[2023-01-27] MEDS: Gabapentin 300 MG CAP PO ×2 (08:13→21:37)
[2023-01-27] MEDS: clonazePAM 1 MG TAB PO ×2 (08:13→21:37)
[2023-01-27] MEDS: Montelukast 10 MG TAB PO (08:13)
[2023-01-27] MEDS: buPROPion-XL 150 MG TABCR 300 MG PO (08:13)
[2023-01-27] MEDS: methylPREDNISolone SUCC 40 MG VIAL IVP (08:15)
[2023-01-27] MEDS: Pantoprazole 40 MG VIAL IVP (08:15)
--- NOTE | 2023-01-27 10:23 | PT.INIE ---
Date of service: 01/27/23 Time of Service: 10:23 PT Notes Visit Reasons: Acute Exacerbation of COPD,Small Bowel Obstruction Patient is in deep sleep. Per Nurse Jaime, patient did not sleep well last night. Patient was also given a dose of Morphine earlier today. Will see patient later today for another attempt at evalaution, as ordered.
--- NOTE | 2023-01-27 11:25 | CMPROGNOTE_ITS ---
- If Service Date Differs Date of service: 01/27/23 Time of Service: 11:25 Care Management Progress Note S/O: William was sitting up on the edge of his bed when CM met with him. He stated that he had a long day, but he feels that he is starting to improve. CM stated that per MD, he would likely be ready for discharge in the next 24-48H, and he stated that he is feeling too weak to return home. CM discussed SNF referrals, and he agreed to have them sent locally, as he would like his care team to continue to support him, including CASTING INSPECTOR and Palliative care. CM sent his referral to [facility] and the [facility] for consideration. CM will continue to follow. A: William is a 57 year old male admitted to [facility] on 01/25/23 with acute exacerbation of COPD, SBO. P: Anticipate William will return home when medically cleared, with a resumption of HH services vs SNF, if agreeable. CM will coordinate RCT private vehicle when ready. He will follow up with CASTING INSPECTOR, Palliative care, his PCP, and discharge plan of care. CM will continue to follow.
--- NOTE | 2023-01-27 13:31 | IN_ITS ---
Date of service: 01/27/23 Time of Service: 13:04 PT Notes Visit Reasons: Acute Exacerbation of COPD,Small Bowel Obstruction Inpatient Physical Therapy Evaluation Date: 01/27/2023 Referring Doctor: Lore Lynne MD PT Orders: PT CONSULT: Limited ability Precautions: Fall.? Standard.? Activity as tolerated.? Patient Profile/Admitting Diagnosis:? William is a 57-year-old male who presented to the ED on 01/25/2023 due to worsening shortness of breath and chest pain for the past 24 hours. Patient is admitted for medical management of COPD exacerbation, SBO,respiratory failure with hypoxia and hypercapnia, lung nodule, and mass of the gastroesophageal junction. PMHx: All Active Problems?(Updated 01/25/23 @ 20:11 by Lore Lynne MD) Mass of gastroesophageal junction (Acute) Lung nodule (Acute) SBO (small bowel obstruction) (Acute) Abdominal pain (Acute) Personal history of nicotine dependence (Acute) Respiratory failure with hypoxia and hypercapnia (Chronic) COPD exacerbation (Acute) Unintentional weight loss (Acute) Peripheral neuropathic pain (Acute) Encounter for palliative care (Acute) Encounter for hospice care discussion (Acute) Oxygen dependent (Acute) Nightmares (Acute) Altered mental status (Acute) Ambulatory dysfunction (Acute) Adult failure to thrive (Acute) Bullae (Acute) Cigarette smoker (Acute) Cognitive impairment (Chronic) Ambulatory dysfunction (Chronic) Current smoker (Acute) Lung bullae (Acute) Musculoskeletal chest pain (Chronic) Lethargy (Acute) Lung disease (Acute) Arthritis (Acute) Noncompliance with medication regimen (Acute) Depression (Chronic) UTI (urinary tract infection) (Acute) Polysubstance abuse (Chronic) Confusion (Acute) Orthostatic hypotension (Acute) PTSD (post-traumatic stress disorder) (Chronic) Discharge planning issues (Acute) Ambulatory dysfunction (Acute) COPD (chronic obstructive pulmonary disease) (Chronic) DVT prophylaxis (Acute) Left rib fracture (Acute) Rib fracture (Acute) Syncope (Chronic) Severe chronic obstructive pulmonary disease (Chronic) Systolic and diastolic CHF, chronic (Chronic) LBBB (left bundle branch block) (Chronic) Nonischemic dilated cardiomyopathy (Chronic) Medical History (Updated 01/25/23 @ 20:11 by Lore Lynne MD) Acquired deformity of left hand Agoraphobia Anxiety Anxiety with depression Biventricular implantable cardioverter-defibrillator (ICD) in situ Mode:DDD, Low rate 60bpm, Atrial lead: medtronic 5076, SN: [id number] 09/27/14; RV lead Medtronic 6935M SN: [id number] 09/27/14; LV lead Medtronic 4396, SN; [id number] 09/27/14 (updated 03/11/20)BPH (benign prostatic hyperplasia) Cardiomyopathy CHF (congestive heart failure) Chronic pain syndrome Constipation COPD (chronic obstructive pulmonary disease) Cyst Diabetes Diarrhea Dizziness DVT prophylaxis Elevated d-dimer Erectile dysfunction Fatigue Hallucination Hand paresthesia Heart disease History of suicidal ideation History of tobacco abuse Hyperlipidemia Impacted ear wax Metacarpophalangeal joint pain Musculoskeletal chest pain Pacemaker Pain Pain in right hip Panic anxiety syndrome Skin lesion Tobacco use Surgical History? Status post biventricular pacemaker Social History/Home Situation: Patient lives alone in a two-level home with no steps to enter.? He receives assistance from[employer] multiple times per day.? He is disabled and no longer working.? States that he still has his walker that was given to him previously. No longer works.? On disability. Equipment Owned/DME: FWW Subjective:?? Agreeable to PT consult.? Reports pain in L hand and back. States that he recently fell. Denies chest pain, headache, and lightheadedness throughout session Objective:? General Observation: Seated at edge of bed.? Telemetry monitoring in place. On 3 L of oxygen per minute via NC. Mental Status: Alert and oriented as to person and place.? Responses to conv ersation appropriate.? Able to follow multiple step commands Pain: L hand and back pain at 4-5/10 ROM: Right Upper Extremity: ? Shoulder Flexion WFL. Shoulder abduction WFL. Elbow flexion WFL. Wrist flexion WFL. Functional opening and closing of hand WFL. Left Upper Extremity:? Shoulder Flexion WFL. Shoulder abduction WFL. Elbow flexion WFL. Wrist flexion WFL. Functional opening and closing of hand WFL. Right Lower Extremity: Hip flexion WFL. Hip abduction WFL. Knee flexion WFL. Ankle dorsiflexion WFL. Ankle plantarflexion WFL. Left Lower Extremity: Hip flexion WFL. Hip abduction WFL. Knee flexion WFL. Ankle dorsiflexion WFL. Ankle plantarflexion WFL. Strength: Right Upper Extremity: Shoulder flexors 4-/5. Shoulder abductors 4-/5. Elbow f lexors 5/5. Elbow extensors 4-/5. Sheet Rocker strong. Left Upper Extremity: Shoulder flexors 4-/5. Shoulder abductors 4-/5. Elbow flexors 5/5. Elbow extensors 4-/5. Sheet Rocker strong. Right Lower Extremity: Hip flexors 4-/5. Hip abductors 4-/5. Knee flexors 5/5. Knee extensors 4-/5. Ankle dorsiflexors 4-/5. Ankle plantarflexors 4/5. Left Lower Extremity: Hip flexors 4-/5. Hip abductors 4-/5. Knee flexors 5/5. Knee extensors 4-/5. Ankle dorsiflexors 4-/5. Ankle plantarflexors 4/5. Bed Mobility/Transfers: Supine?sit: stand by assist Sit?supine: stand by assist Sit?stand: contact guard assist stand?sit: contact guard assist Bed to chair: contact guard assist Gait:? Tolerated 150 feet using front wheeled walker with contact guard assist.? Complained of moderate shortness of breath that subsided with rest.? No saturation after activity was 97% and with a heart rate of 105 bpm Balance:? Static Sitting: Normal Dynamic Sitting: Normal Static Standing: Fair Dynamic Standing: Fair 4- stage balance test: Able to maintain feet together but unable to assume semii-tandem, full tandem, and one-legged stance for 10 seconds. Special Tests: Mobility Limitations Standardized Measure [facility] 6 clicks Basic Mobility Inpatient Short Form: Raw Score: 22 ? CMS Score: 21% impairment ? ? ? Informed Consent/Education:? Patient instructed in purpose of PT consult and plan of care. Assessment:? Patient presents with clinical signs and symptoms consistent with diminished functional mobility related to acute medical issues, as demonstrated by the following impairment level findings: 1.? Decreased balance 2.? Decreased lower extremity strength 3.? Decreased upper extremity strength 4.? Shortness of breath Impairments are contributing to the following functional limitations: 1.? Difficulty with ambulation without assistive device 2.? Increased completion time for mobility ADL performance 3.? Increased risk for falls Patient is assessed as a 83028 moderate complexity based on the following: History: 56-year-old male with past medical history as indicated above Examination: Demonstrable impairment in strength, balance, and mobility level with underlying impairments and functional limitations as exhibited above as we ll as deficit score of 21% utilizing the [facility] Mobility Inpatient Short Form Presentation: Evolving Decision Makin moderate complexity Goals: Goals X1 week 1. Supine-Sit: Independent 2. Sit-Supine: Independent 3. Sit-Stand: Independent 4. Stand-Sit: Independent 5. Bed-Chair: Independent with use of FWW 6. Chair-Bed: Independent with the use of FWW 7. Gait: Independent x 300 feet with FWW 8. Stairs: Independent on therapeutic stairs x5 9. Independent with home exercise program DISCHARGE RECOMMENDATIONS: [] ? Home with no services [] [X] ? Home with services.? Home when medically cleared by hospitalist.? Patient will benefit from home health PT services in order to progress mobility level using least restrictive assistive ambulatory device, assess home safety, identify additional equipment needs, and establish a functional maintenance program that will increase ability of patient to remain at home. [] ? Home with outpatient PT [] [] ? SNF for continued rehabilitation [] [] ? [facility] [] [] ? SNF versus LTC based on ability to participate and progress [] TREATMENT CODE/TIME: 22115 x 23 minutes beginning at 13:04 AM. Thank you for the opportunity to participate in the care of this patient. Valentine Tavera PT, DPT, CLT [facility] [place], [place]
--- NOTE | 2023-01-27 20:19 | PGE_ITS ---
Date of Service Date of service: 01/27/23 Time of Service: 16:00 Assessment and Plan Assessment and plan (1) COPD exacerbation: Status: Acute Assessment and plan: currently on Zosyn however his MRSA is negative and sputum grew NOF and blood cultures were no growth. I will change to Augmentin and azithromycin and dc zosyn. continue steroids but can change to prednisone. I will put him on a 2 weeks taper. Professional time spent interviewing and examining patient, discussion of goals of care with hospital team (care management, nursing and consulting professionals) was 30 minutes. (2) Respiratory failure with hypoxia and hypercapnia: Status: Chronic Assessment and plan: Now at his baseline. Will treat with scheduled and prn nebs, steroids, abx.as listed above (3) Lung nodule: Status: Acute Assessment and plan: Will need outpatient follow up w/ PET/CT but likely is met from GE mass (4) Mass of gastroesophageal junction: Status: Acute Assessment and plan: Discussed with general surgery - may be able to get an EGD next week when COPD e xacerbation is all better, potentially even at our facility. However, he does not need to remain here through the weekend awaiting procedure. (5) Left kidney mass: Status: Acute Assessment and plan: septated 14 mm x 16 mm cyst in upper pole left kidney, too small to characterize. needs follow up U.S. or CT in 6 months; however, he will need PET scan before this d/t lung nodule and GE Mass. (6) DVT prophylaxis: Status: Acute Assessment and plan: Sc heparin (7) Discharge planning issues: Status: Acute Assessment and plan: Shanique Gonzalez would like him to consider going to SNF for short term. She has asked CM to discuss this with him. He is open to the idea as he does not feel ready to return home just yet. Subjective Subjective Interval history since last seen: William feels that his breathing overall is improved. He does not feel ready to return home. Shanique Gonzalez, palliative care N.P. spoke w/ him about his goals of care and she did introduce him to his diagnosis of GE junction mass and lung nodule along w/ mediastinal and retroperitoneal adenopathy all suggesting cancer. William was ambivalent w/ Ms. Gonzalez about what he wants to do in terms of workup or treatment. After I went into details about his CT findings and the implications for an advanced cancer and also the potential for esophageal/gastric obstruction w/out any treatment, he has indicated to me that he wants to at lest pursue workup and then go over all of his options including no treatment other than symptom control versus agressive surgical or chemotherapy. I explained to William that he will need to first recover from his current COPD exacerbation before undergoing any EGD and that our anesthesia department and our surgeon would want our logistics management specialist available should he develope any respiratory complications from the diagnostic EGD. As for his COPD exacerbation, he is coughing up much more mucous now. His breathing is improving and he is now on his baseline oxygen requirements of 3 lpm and his SPO2 has bee in the high 90%s i.e. 96 to 97%. Exam Narrative Exam Narrative: William is alert and oriented and no respiratory distress. no use of accessory respiratory muscles Lungs: diffuse expiratory wheezing but with increased airflow Heart: RRR Abdomen: soft, nondistended Extremities: no edema Objective Last Vital Signs Temp 36.9 C 01/27/23 19:04 Pulse 89 01/27/23 19:04 Resp 18 01/27/23 19:04 BP 124/69 01/27/23 19:04 Pulse Ox 98 01/27/23 19:04 Laboratory Results - last 24 hr 01/27/23 01/27/23 06:17 06:17 WBC 8.10 RBC 4.54 Hgb 13.6 Hct 41.0 MCV 90 MCH 30.0 MCHC 33.2 RDW 13.4 Plt Count 188 MPV 10.2 Immature Gran % 0.2 Neutrophils % 74.9 Lymphocytes % 13.3 Monocytes % 10.9 Eosinophils % 0.5 Basophils % 0.2 Nucleated RBC % 0.0 Absolute Neutrophils 6.06 Absolute Lymphocytes 1.08 L Absolute Monocytes 0.88 H Absolute Eosinophils 0.04 Absolute Basophils 0.02 Sodium 141 Potassium 3.6 Chloride 104 Carbon Dioxide 33.5 H Anion Gap 3.5 BUN 10 Creatinine 0.9 Est GFR (CKD-EPI 2020) 98.38 Glucose 110 H Calcium 8.8 Magnesium 2.1 Time Spent with Patient Time Spent with Patient: 25-34 minutes Time was spent: preparing to see the patient(eg.review tests), ordering medications,tests, procedures, referring, communicating with other health care management associate, indepentently interpreting results, counseling the patient and c are coordination
--- NOTE | 2023-01-27 20:29 | W.PALPGNOTE ---
Date of service: 01/27/23 Time of Service: 16:00 Assessment and Plan Assessment and plan (1) Mass of esophagus: Status: Acute (2) Mass of upper lobe of right lung: Status: Acute (3) Mass of gastroesophageal junction: Status: Acute (4) Abdominal pain: Status: Acute (5) COPD exacerbation: Status: Acute (6) Encounter for palliative care: Status: Acute (7) Oxygen dependent: Status: Acute (8) Ambulatory dysfunction: Status: Acute (9) Adult failure to thrive: Status: Acute (10) Anxiety: (11) Agoraphobia: (12) Advanced care planning/counseling discussion: Status: Acute Assessment and plan: Reviewed benefits vs risks of placement in shelter facility or short term rehab as bridge prior to returning home from hospital - recommend use of shelter facility or short term rehab and to AVOID senior care - increased support w/dyspnea, anxiety, and other symptoms, support when fearful or has questions, ongoing PT/OT or other rehab; energy conservation w/ADL/IADL; preferences to have own room, to not feel tied down or like a prisoner, access to own shower; cons/risks: concern over his home remaining safe, being around new people Reviewed EGD procedure, discussed concern for serious illness, like metastatic cancer; - William expressed not wanting to go through procedure to learn it is likely metastatic cancer, would likely not want treatment, would might not want to know - recommend slow conversations, bite sized information; allow space for pauses, questions, reflections Follow up - ongoing discussion of risks vs benefits of SNF for bridge to returning home; - exploring GOC for potential malignancy and treatment preferences: life prolonging, symptom control, comfort measures - PC to follow up Wednesday, or via on Wednesday Subjective Subjective Interval history since last seen: William is relatively the same today. Breathing continues with dyspnea cycle, would like increased use of albuterol use, reports denied use of rescue inhaler. Continues with nebulizer and morphine. Got up walking with physical therapy today, it was okay , walking with walker. [place] the same as baseline. Continues to say things hurt , worse today mid chest and back Aware of recommendation for EGD to find something wrong with mid chest upper abdomen, feels this is not going to be good, feels this will be bad, could be cancer, I do not know if I would want to treat it , feels he will one-way. Something bad is happening would consider EGD, however would want the risks of procedures be considered prior to participation, due to risk of injury, infection, negative outcome. Remains hesitant to consider SNF placement, understands the benefits of support, assistance with breathing control, ongoing physical therapy, is hesitant due to feeling that home will not be safe, having to work with new people, feeling of not being able to leave. Preferences would be to have own room, have shower space, and not feel tied down in the room, does not want to feel like a prisoner per staff: He continues to describe 9 out of 10 pain, appears closer to baseline, participating in hygiene, eating appropriately, some assistance with hard to reach bathing areas, working with PT, moved bowels 4/3 Exam Const General: cooperative, comfortable, no acute distress and ill appearing chronically Nutritional Appearance: overweight Limitations: behavioral limitations Other: participating in bedside ultrasound at beginning of bedside, self-transitions lying to sitting independently HENMT Head: normal to inspection, normocephalic and atraumatic Ears: hearing grossly normal bilaterally Resp Effort & Inspection: cough Quality of cough: wet and tachypneic Psych Appearance: grossly normal Speech and Movement: speech clear Mood: congruent mood Affect: normal affect and anxious affect Attitude: cooperative Thought Process: impoverished and loose association Thought Content: normal Insight: limited Judgment: limited Objective Last Vital Signs Temp 98.4 F 01/27/23 19:04 Pulse 89 01/27/23 19:04 Resp 18 01/27/23 19:04 BP 124/69 01/27/23 19:04 Pulse Ox 98 01/27/23 19:04 Laboratory Results - last 24 hr 01/27/23 01/27/23 06:17 06:17 WBC 8.10 RBC 4.54 Hgb 13.6 Hct 41.0 MCV 90 MCH 30.0 MCHC 33.2 RDW 13.4 Plt Count 188 MPV 10.2 Immature Gran % 0.2 Neutrophils % 74.9 Lymphocytes % 13.3 Monocytes % 10.9 Eosinophils % 0.5 Basophils % 0.2 Nucleated RBC % 0.0 Absolute Neutrophils 6.06 Absolute Lymphocytes 1.08 L Absolute Monocytes 0.88 H Absolute Eosinophils 0.04 Absolute Basophils 0.02 Sodium 141 Potassium 3.6 Chloride 104 Carbon Dioxide 33.5 H Anion Gap 3.5 BUN 10 Creatinine 0.9 Est GFR (CKD-EPI 2020) 98.38 Glucose 110 H Calcium 8.8 Magnesium 2.1
[2023-01-28] VITALS (12 sets, daily range): BP systolic 123–147; BP diastolic 70–80; PULSE 62–102; RESP 1–24; TEMP 36.9–37.2; O2SAT 92–99
[2023-01-28] MEDS: PIPERACILLIN/TAZO 3.375 GM in Normal Saline 50 ML IVPB ×2 (02:01→10:30)
[2023-01-28] MEDS: Normal Saline 500 ML 30 ML IV (02:02)
[2023-01-28] MEDS: Normal Saline Flush 10 ML SYR IVP ×2 (02:02→08:28)
[2023-01-28] MEDS: Levalbuterol 1.25 MG/3 ML UPD VIAL UPD (05:39)
[2023-01-28] MEDS: Heparin 5,000 UNITS/ML VIAL 5000 UNITS SC ×3 (05:39→21:21)
[2023-01-28] MEDS: methylPREDNISolone SUCC 40 MG VIAL IVP (08:13)
[2023-01-28] MEDS: Pantoprazole 40 MG VIAL IVP (08:13)
[2023-01-28] MEDS: guaiFENesin 600 MG TABCR PO ×2 (08:13→19:43)
[2023-01-28] MEDS: Gabapentin 300 MG CAP PO ×2 (08:13→19:44)
[2023-01-28] MEDS: Montelukast 10 MG TAB PO (08:13)
[2023-01-28] MEDS: clonazePAM 1 MG TAB PO ×2 (08:13→19:44)
[2023-01-28] MEDS: buPROPion-XL 150 MG TABCR 300 MG PO (08:13)
[2023-01-28] MEDS: MORPHine 4 MG/ML SYR IVP ×2 (08:27→16:29)
[2023-01-28] MEDS: Ipratropium 0.5 MG/2.5 ML UPD VIAL UPD ×4 (08:41→19:27)
[2023-01-28] MEDS: Budesonide/Formoterol 80/4.5 6.9 GM 60 PUFF INH IH ×2 (08:44→19:26)
--- NOTE | 2023-01-28 10:13 | W.PM.PROGNOT ---
Date of Service Date of service: 01/28/23 Time of Service: 10:13 Assessment and Plan Assessment and plan (1) Mass of esophagus: Status: Acute Assessment and plan: -as noted on CT 01/25/23 GI: Stomach appears distended.? There is abnormal density now evident at the GE junction, possibly neoplastic.? The soft is is not dilated.? There are abnormally enlarged precarinal lymph nodes in this region, not previously present and measuring up to 1.4 cm.? There also abnormally enlarged lymph nodes around the separate origins of the splenic and common hepatic arteries anterior to the aorta and there is also some para-aortic adenopathy evident. Patient has also been experiencing pain and difficulty swallowing. ECHO: 01/07/23 Conclusion Technically suboptimal Left ventricle is grossly normal in size.? Systolic function is mildly reduced.? EF is 50 to 55%.? No segmental wall motion abnormalities are noted.? Septal motion is paradoxic Right ventricle is normal in size and systolic function Both atria are normal in size Device lead noted in the right heart There is no significant valvular disease -The procedure has been discussed with hospitalist/Dr. Lynne, anesthesia, and Dr. Jensen. It is scheduled for February 05 as an outpatient. Provided he is stable from his exacerbation of COPD. -Please let [facility] know if patient is going to be placed so we can contact the SNF for arrangements. [phone]. -Continue high-dose protein supplementation at this time with breeze or Ensure. -We will reevaluate at your request (2) Left kidney mass: Status: Acute (3) Mass of upper lobe of right lung: Status: Acute (4) AICD (automatic cardioverter/defibrillator) present: Status: Acute (5) Mass of gastroesophageal junction: Status: Acute (6) Lung nodule: Status: Acute (7) Biventricular implantable cardioverter-defibrillator (ICD) in situ: (8) Cardiomyopathy: (9) CHF (congestive heart failure): (10) COPD (chronic obstructive pulmonary disease): (11) Diabetes: (12) Hyperlipidemia: (13) Pacemaker: (14) Panic anxiety syndrome: (15) Peripheral neuropathic pain: Status: Acute (16) Ambulatory dysfunction: Status: Acute (17) Adult failure to thrive: Status: Acute (18) Bullae: Status: Acute (19) Cognitive impairment: Status: Chronic (20) LBBB (left bundle branch block): Status: Chronic (21) Nonischemic dilated cardiomyopathy: Status: Chronic (22) Unintentional weight loss: Status: Acute Objective Last Vital Signs Temp 37 C 01/28/23 07:15 Pulse 62 01/28/23 07:15 Resp 24 01/28/23 07:15 BP 123/70 01/28/23 07:15 Pulse Ox 95 01/28/23 07:15 Time Spent with Patient Time Spent with Patient: >50 minutes Time was spent: preparing to see the patient(eg.review tests), obtaining and/or reviewing separately otained hiistory, ordering medications,tests, procedures, referring, communicating with other health child care education coordinator and care coordination
--- NOTE | 2023-01-28 12:18 | CMPROGNOTE_ITS ---
- If Service Date Differs Date of service: 01/28/23 Time of Service: 12:18 Care Management Progress Note S/O: William was resting when CM attempted to meet with him. CM communicated with OBI Hamilton today, who stated that she would be visiting William this afternoon. CM followed up on the referrals sent yesterday, and currently both facilities do not have beds available. [facility] stated that they may be able to accommodate him in the next week or two, depending on their discharges. CM will ask William about sending the referral to other facilities. CM will continue to follow. A: William is a 57 year old male admitted to [facility] on 01/25/23 with acute exacerbation of COPD, SBO. P: Anticipate William will return home when medically cleared, with a resumption of HH services vs SNF, if agreeable. CM will coordinate RCT private vehicle when ready. He will follow up with [facility], Palliative care, his PCP, and discharge plan of care. CM will continue to follow.
--- NOTE | 2023-01-28 12:50 | W.NUTCONSULT ---
Date of service: 01/28/23 Time of Service: 13:13 Nutritional Consult ASSESSMENT: William readmitted with mass of esophagus, mass of lung, mass of GE junction with 17 lbs weight loss in last 3 months (-9%)- unwilling to have EGD done at this time for biopsy- most likely cancerous PMH: COPD, CHF, newly diagnosed with DM2 with A1C of 7.1%.? Has started metformin 500 mg BID.? Following soft bit sized diet with ensure clears and 1 oz liquid protein TID to provide additional nutrients. NUTRITIONAL DIAGNOSIS: Moderate malnutrition- Uninventional weight loss, decreased po intake secondary to abdominal pain and decreased po intake INTERVENTION: Soft bite sized diet Ensure clear BID [place] protein 1oz TID MONITORING AND EVALUATION: weight, po intake, labs Time Spent in Nutritional Counseling and Treatment: 0
--- NOTE | 2023-01-28 13:39 | PGE_ITS ---
Date of Service Date of service: 01/28/23 Time of Service: 13:41 Assessment and Plan Assessment and plan (1) COPD exacerbation: Status: Acute Assessment and plan: currently on Zosyn however his MRSA is negative and sputum grew NOF and blood cultures were no growth. will down-step to Augmentin and azithromycin and dc zosyn. continue steroids but can change to prednisone, will discharge on 2 weeks taper. (2) Respiratory failure with hypoxia and hypercapnia: Status: Chronic Assessment and plan: Now at his baseline. Will treat with scheduled and prn nebs, steroids, abx.as listed above (3) Lung nodule: Status: Acute Assessment and plan: Will need outpatient follow up w/ PET/CT but likely is met from GE mass (4) Mass of gastroesophageal junction: Status: Acute Assessment and plan: Discussed with general surgery - may be able to get an EGD next week when COPD exacerbation is all better, potentially even at our facility. However, he does not need to remain here through the weekend awaiting procedure. (5) Left kidney mass: Status: Acute Assessment and plan: septated 14 mm x 16 mm cyst in upper pole left kidney, too small to ch aracterize. needs follow up U.S. or CT in 6 months; however, he will need PET scan before this d/t lung nodule and GE Mass. (6) DVT prophylaxis: Status: Acute Assessment and plan: Sc heparin (7) Discharge planning issues: Status: Acute Assessment and plan: Shanique Gonzalez would like him to consider going to SNF for short term. She has asked to discuss this with him. He is open to the idea as he does not feel ready to return home just yet. discussed with DR Jara Subjective Subjective Patient reports: no new complaints, feels better, tolerating liquids well, voiding w/o difficulty, diarrhea and afebrile; denies shortness of breath Exam Const General: cooperative, comfortable, no acute distress and ill appearing chronically Nutritional Appearance: overweight Limitations: behavioral limitations HENMT Head: normal to inspection, normocephalic and atraumatic Ears: hearing grossly normal bilaterally Resp Effort & Inspection: able to speak in complete sentences, no audible wheezes and cough Quality of cough: wet Auscultation: diminished lung sounds and wheezes expiratory wheezes Cardio Rate: regular rate Rhythm: regular rhythm GI Inspection: normal to inspection (round, soft) Psych Speech and Movement: speech clear Mood: congruent mood Affect: anxious affect Attitude: cooperative Thought Content: normal Insight: limited Judgment: limited Objective Last Vital Signs Temp 36.9 C 01/28/23 11:24 Pulse 98 H 01/28/23 11:24 Resp 24 01/28/23 11:24 BP 127/78 01/28/23 11:24 Pulse Ox 92 01/28/23 11:24 Time Spent with Patient Time Spent with Patient: 35-49 minutes Time was spent: preparing to see the patient(eg.review tests), ordering medications,tests, procedures, indepentently interpreting results, counseling the patient and care coordination
--- NOTE | 2023-01-28 15:43 | PT.INTREAT ---
Date of service: 01/28/23 Time of Service: 13:55 PT Notes Visit Reasons: Acute Exacerbation of COPD,Small Bowel Obstruction Inpatient Physical Therapy Treatment Note [facility] Date: 01/28/2023 SUBJECTIVE: William is pleasant and agreeable to participating in PT. He reports that he is not feeling well today, and that he is hungry. OBJECTIVE: Pain: No c/o pain BED MOBILITY/TRANSFERS Supine-sit: I Sit-supine: I Sit-stand: I Stand-sit: I Bed-Chair: I Chair-bed: I GAIT Assistive Device: No AD FWW Weight bearing: Full Assist: Independent with in-room distances supervision with FWW Distance: 20' x2 without assistive device support 250' with FWW Deviation: Seated rest x1, SOB, increased fatigue TOILETING: Patient toileted independently ASSESSMENT: Patient tolerated session with complaint of increased fatigue and SOB with gait training. He demonstrates independence with in-room distance ambulation without assistive device. PLAN: Continue with gait training and general conditioning for improved activity tolerance. TREATMENT CODE/TIME: Session 1: Refused Session 2: 30 minutes; [id number] x2 (12:55)
[2023-01-28] MEDS: Amoxicillin 875/Clav. 125 TAB PO (19:44)
[2023-01-28] MEDS: Tamsulosin 0.4 MG CAPCR PO (21:21)
[2023-01-29] VITALS (13 sets, daily range): BP systolic 97–142; BP diastolic 50–83; PULSE 70–108; RESP 2–22; TEMP 36.1–37.2; O2SAT 90–98
[2023-01-29] MEDS: Heparin 5,000 UNITS/ML VIAL 5000 UNITS SC ×3 (06:03→21:25)
[2023-01-29] MEDS: Levalbuterol 1.25 MG/3 ML UPD VIAL UPD (06:40)
[2023-01-29] MEDS: predniSONE 20 MG TAB 40 MG PO (09:09)
[2023-01-29] MEDS: guaiFENesin 600 MG TABCR PO ×2 (09:09→21:25)
[2023-01-29] MEDS: Amoxicillin 875/Clav. 125 TAB PO ×2 (09:09→21:25)
[2023-01-29] MEDS: clonazePAM 1 MG TAB PO ×2 (09:09→22:17)
[2023-01-29] MEDS: Montelukast 10 MG TAB PO (09:09)
[2023-01-29] MEDS: Pantoprazole 40 MG VIAL IVP (09:09)
[2023-01-29] MEDS: buPROPion-XL 150 MG TABCR 300 MG PO (09:09)
[2023-01-29] MEDS: Azithromycin 250 MG TAB PO (09:10)
[2023-01-29] MEDS: Gabapentin 300 MG CAP PO ×2 (09:12→21:25)
[2023-01-29] MEDS: Budesonide/Formoterol 80/4.5 6.9 GM 60 PUFF INH IH ×2 (09:13→19:41)
[2023-01-29] MEDS: Normal Saline Flush 10 ML SYR IVP (09:14)
[2023-01-29] MEDS: Ipratropium 0.5 MG/2.5 ML UPD VIAL UPD ×4 (09:27→19:43)
--- NOTE | 2023-01-29 13:15 | RT.EKG_ITS ---
APPROVED REPORT Exam: Resting ECG Reason for Exam: chest pain Patient Location: I HR:103 bpm ECG Measurements Heart Rate 103 AXIS MA 142 P 81 QRSd 112 QRS 131 QT 366 T 82 QTc 479 Conclusion Atrial-sensed ventricular-paced rhythm...ventricular pacing tracks p-waves No further analysis attempted due to paced rhythm
--- NOTE | 2023-01-29 13:23 | NUR.NOTE ---
Nursing Note: this rn was notified by detective captain that during ambulation but was complaining of chest pain. on assessment by this rn, pt states that karrie been having cp since this morning, i thought you knew. this rn was not notified of pt cp this am. this rn notified charge nurse and nurse practi notified.
--- NOTE | 2023-01-29 14:10 | PT.INTREAT ---
Date of service: 01/29/23 Time of Service: 13:10 PT Notes Visit Reasons: Acute Exacerbation of COPD,Small Bowel Obstruction Inpatient Physical Therapy Treatment Note [facility] Date: 01/29/2023 SUBJECTIVE: William is pleasant and agreeable to participating in PT. OBJECTIVE: Pain: Patient c/o pain in his chest, post gait training. Primary nurse alerted to complaint. BED MOBILITY/TRANSFERS Supine-sit: I Sit-supine: I Sit-stand: I Stand-sit: I Bed-Chair: I Chair-bed: I GAIT Assistive Device: FWW Weight bearing: Full Assist: S with FWW with hallway ambulation (Independent with in-room distances) Distance: 300' Deviation: Standing rest x1, SOB, increased fatigue ASSESSMENT: Patient tolerated session with complaint of increased fatigue and SOB with gait training. He demonstrates independence with in-room distance ambulation without assistive device. PLAN: Continue with gait training and general conditioning for improved activity tolerance. TREATMENT CODE/TIME: Session 1: Refused Session 2: 15 minutes; [id number] (13:10)
--- NOTE | 2023-01-29 14:20 | CMPROGNOTE_ITS ---
- If Service Date Differs Date of service: 01/29/23 Time of Service: 14:20 Care Management Progress Note S/O: William was sitting up on the edge of his bed when CM met with him. He reported that he is feeling better, but still feels weak, and does not feel ready to return home. CM followed up with referrals that were sent to [facility] [place] and [facility], neither facility has a bed currently. William agreed to have additional referrals sent. CM sent referrals to [facility], [facility], [facility], [facility], [facility], [facility], and [place] [facility]. CM will continue to follow. A: William is a 57 year old male admitted to [facility] on 01/25/23 with acute exacerbation of COPD, SBO. P: Anticipate William will return home when medically cleared, with a resumption of HH services vs SNF, if agreeable. CM will coordinate RCT private vehicle when ready. He will follow up with [facility], Palliative care, his PCP, and discharge plan of care. CM will continue to follow.
--- NOTE | 2023-01-29 14:53 | CHAPLAIN ---
William was sitting at the edge of his bed, he appeared to be doing breathing exercises, when I stopped in. I asked if he was in pain and wanted me to reach a nurse for him, and he said it's not worth the valdez. He also talked about how there different rules in different buildings, which was frustrating to him, but I wasn't sure what he was referring to. William said he has friends who have been visiting him, but doesn't have any family.
--- NOTE | 2023-01-29 15:45 | PCPN_ITS ---
Date of service: 01/29/23 Time of Service: 15:45 Assessment and Plan Assessment and plan (1) Mass of esophagus: Status: Acute (2) Mass of upper lobe of right lung: Status: Acute (3) Mass of gastroesophageal junction: Status: Acute (4) Abdominal pain: Status: Acute (5) COPD exacerbation: Status: Acute (6) Encounter for palliative care: Status: Acute (7) Oxygen dependent: Status: Acute (8) Ambulatory dysfunction: Status: Acute (9) Adult failure to thrive: Status: Acute (10) Anxiety: (11) Agoraphobia: (12) Advanced care planning/counseling discussion: Status: Acute Assessment and plan: F/u with Palliative today. He was seen by his usual Palliative provider earlier this week, Shanique Gonzalez. Reviewed Shanique's recommendation that he go to rehab prior to returning home. He states he is open to rehab as long as he can stay local. Referrals have been sent. The plan is for him to have EDG to further investigate mass at GE junction. He wishes to have a Dx but does not want chemo/radiation/surgery if offered. Did not discuss CODE status today, will need to revisit, possibly after results of EGD are available. Discussed the option of hospice if he is found to have metastatic disease- he appears open to hospice at present. F/u with Shanique after EGD results are available to be reviewed. Subjective Subjective Interval history since last seen: William was seen in his hospital room with his NUTRITIONAL YEAST SUPERVISOR worker, Sanjana present. He was seen by Shanique Gonzalez NP earlier this week. He was seen for Palliative follow up today. He is currently being treated for COPD exacerbation. He reports that his breathing is not very good. He is very SOB walking to the BR. He reports that his breathing is not back to his baseline. He feels weak. He reports that eating and drinking is difficult- he has pain in his mid- epigastric region when he eats. He feels like his food hits a wall and will not go down, he has to take a break and drink water and sometimes it goes down and other times it does not. He is aware that he has an EGD scheduled for next week to further investigate this mass. He is clear that he wishes to have a Dx but would not want any chemo/radiation/surgery to treat it. He has friends that are going throug chemo and they are always sick- he does not want that for himself. He also had a co-worker who had the same Dx and was told that he had 10-15 years to live and he was 1 month later. Discussed discharge plans. He states he is open to discharge to a SNF for rehab, however, he prefers to stay at a local facility. If his only SNF choice is out of the area, he would prefer to go home. Discussed the option of hospice, which he has discussed with Shanique Gonzalez in the past. He states he would be open to hospice eventually. Exam Narrative Exam Narrative: General: middle aged man, sitting at the edge of the bed, wearing O2, SOB at times while talking. Pauses frequently while talking. Able to engage in conversation and answer questions appropriately. HEENT: normocephalic, atraumatic, EOMI, mmm. Neck: supple. Respiratory: appears SOB at times while talking, no coughing noted during visit. Extremities: moves all 4 extremities freely. Objective Last Vital Signs Temp 37.2 C 01/29/23 15:43 Pulse 98 H 01/29/23 15:43 Resp 20 01/29/23 15:43 BP 142/83 H 01/29/23 15:43 Pulse Ox 95 01/29/23 15:43
[2023-01-29] MEDS: Acetaminophen 325 MG TAB 650 MG PO (17:19)
--- NOTE | 2023-01-29 18:32 | W.PM.PROGNOT ---
Date of Service Date of service: 01/29/23 Time of Service: 18:32 Assessment and Plan Assessment and plan (1) COPD exacerbation: Status: Acute Assessment and plan: continues to remain stable after down-step to Augmentin and azithromycin and dc zosyn. continue steroids but can change to prednisone, will discharge on 2 weeks taper. (2) Respiratory failure with hypoxia and hypercapnia: Status: Chronic Assessment and plan: Now at his baseline. Will treat with scheduled and prn nebs, steroids, abx.as listed above (3) Lung nodule: Status: Acute Assessment and plan: Will need outpatient follow up w/ PET/CT but likely is met from GE mass (4) Mass of gastroesophageal junction: Status: Acute Assessment and plan: Discussed with general surgery - planned EGD next Wednesday. However, he does not need to remain here through the weekend awaiting procedure. chest pain today likely associated with this, no EKG changes. pain is constant and not consistent with ACS (patient poor historian as well). continue pain medication as scheduled and monitor. (5) Left kidney mass: Status: Acute Assessment and plan: septated 14 mm x 16 mm cyst in upper pole left kidney, too small to characterize. needs follow up U.S. or CT in 6 months; however, he will need PET scan before this d/t lung nodule and GE Mass. (6) DVT prophylaxis: Status: Acute Assessment and plan: Sc heparin (7) Discharge planning issues: Status: Acute Assessment and plan: palliative and case management following, referrals pending for SNF discussed with DR Jara Subjective Subjective Patient reports: still having pain, tolerating liquids well, tolerating a regular diet, shortness of breath and afebrile; denies nausea Interval history since last seen: Tolerating a soft diet well with no nausea vomiting Exam Const General: cooperative, comfortable, no acute distress and ill appearing chronically Nutritional Appearance: overweight Limitations: behavioral limitations HENMT Head: normal to inspection, normocephalic and atraumatic Ears: hearing grossly normal bilaterally Resp Effort & Inspection: able to speak in complete sentences, no audible wheezes and cough Quality of cough: wet Auscultation: diminished lung sounds and wheezes expiratory wheezes Cardio Rate: regular rate Rhythm: regular rhythm GI Inspection: normal to inspection (round, soft) Psych Speech and Movement: speech clear Mood: congruent mood Affect: anxious affect Attitude: cooperative Thought Content: normal Insight: limited Judgment: limited Objective Last Vital Signs Temp 37.2 C 01/29/23 15:43 Pulse 98 H 01/29/23 15:43 Resp 20 01/29/23 15:43 BP 142/83 H 01/29/23 15:43 Pulse Ox 95 01/29/23 15:43 Time Spent with Patient Time Spent with Patient: 25-34 minutes Time was spent: preparing to see the patient(eg.review tests), ordering medications,tests, procedures, referring, communicating with other health healthcare social worker, indepentently interpreting results, counseling the patient and care coordination
[2023-01-29] MEDS: Tamsulosin 0.4 MG CAPCR PO (21:25)
[2023-01-30] VITALS (14 sets, daily range): BP systolic 108–141; BP diastolic 68–86; PULSE 73–99; RESP 2–20; TEMP 36.3–37; O2SAT 94–99
[2023-01-30 06:16] LABS: HCT 43.2 % (40.0-50.0); HGB 14.4 g/dL (13.5-17.5); MCH 29.8 pg (27.0-33.0); MCHC 33.3 % (32.0-36.0); MCV 89 fL (80-95); MPV 10.6 fL (8.0-11.0); Platelet Count 178 10^3/uL (130-400); RBC 4.83 10^6/uL (4.36-5.78); RDW 13.1 % (11.8-14.1); RDW-SD 43.2 fL; WBC 6.22 10^3/uL (4.4-10.8)
[2023-01-30] MEDS: Heparin 5,000 UNITS/ML VIAL 5000 UNITS SC ×3 (06:17→20:35)
[2023-01-30] MEDS: predniSONE 20 MG TAB 40 MG PO (07:42)
[2023-01-30] MEDS: Amoxicillin 875/Clav. 125 TAB PO ×2 (07:42→22:06)
[2023-01-30] MEDS: Acetaminophen 325 MG TAB 650 MG PO (07:42)
[2023-01-30] MEDS: guaiFENesin 600 MG TABCR PO ×2 (07:43→20:35)
[2023-01-30] MEDS: Gabapentin 300 MG CAP PO ×2 (07:43→20:35)
[2023-01-30] MEDS: buPROPion-XL 150 MG TABCR 300 MG PO (07:43)
[2023-01-30] MEDS: Montelukast 10 MG TAB PO (07:43)
[2023-01-30] MEDS: Pantoprazole 40 MG VIAL IVP (07:44)
[2023-01-30] MEDS: Azithromycin 250 MG TAB PO (07:44)
[2023-01-30] MEDS: Budesonide/Formoterol 80/4.5 6.9 GM 60 PUFF INH IH ×2 (07:45→19:23)
--- NOTE | 2023-01-30 09:43 | PT.INNT ---
Date of service: 01/30/23 Time of Service: 09:43 PT Notes Visit Reasons: Acute Exacerbation of COPD,Small Bowel Obstruction 01/30/2023 Patient refused PT due to feeling SOB and awaiting his breathing treatments. Nursing present for conversation, aware, and agrees with patient. Will attempt to resume PT services Wednesday.
[2023-01-30] MEDS: clonazePAM 1 MG TAB PO ×2 (10:05→20:35)
[2023-01-30] MEDS: Levalbuterol 1.25 MG/3 ML UPD VIAL UPD ×2 (10:40→15:08)
[2023-01-30] MEDS: Ipratropium 0.5 MG/2.5 ML UPD VIAL UPD ×3 (10:41→19:24)
--- NOTE | 2023-01-30 15:06 | W.PM.PROGNOT ---
Date of Service Date of service: 01/30/23 Time of Service: 15:08 Assessment and Plan Assessment and plan (1) COPD exacerbation: Status: Acute Assessment and plan: continues to remain stable after down-step to Augmentin and azithromycin and dc zosyn. continue steroids but can change to prednisone, will discharge on 2 weeks taper. (2) Respiratory failure with hypoxia and hypercapnia: Status: Chronic Assessment and plan: Now at his baseline. Will treat with scheduled and prn nebs, steroids, abx.as listed above (3) Lung nodule: Status: Acute Assessment and plan: Will need outpatient follow up w/ PET/CT but likely is met from GE mass (4) Mass of gastroesophageal junction: Status: Acute Assessment and plan: Discussed with general surgery - planned EGD next Wednesday - awaiting placement SNF; does not need to remain in hospital (5) Left kidney mass: Status: Acute Assessment and plan: septated 14 mm x 16 mm cyst in upper pole left kidney, too small to characterize. needs follow up U.S. or CT in 6 months; however, he will need PET scan before this d/t lung nodule and GE Mass. (6) DVT prophylaxis: Status: Acute Assessment and plan: Sc heparin (7) Discharge planning issues: Status: Acute Assessment and plan: palliative and case management following, referrals pending for SNF Discuss COLST full code v DNR/DNI in setting of CA dx and patient not wanting tx or surgery but wanting to be full code discussed with Dr Jara Subjective Subjective Patient reports: no new complaints, pain is less, tolerating a regular diet, bowel movement and afebrile; denies diarrhea, nausea or vomiting Interval history since last seen: States he is worried about his diagnosis and does not want chemotherapy or surgery. Discussed code status and he stated I want everything done. Exam Const General: cooperative, comfortable, no acute distress and ill appearing chronically Nutritional Appearance: overweight Limitations: behavioral limitations HENMT Head: normal to inspection, normocephalic and atraumatic Ears: hearing grossly normal bilaterally Resp Effort & Inspection: able to speak in complete sentences, no audible wheezes and cough Quality of cough: wet Auscultation: diminished lung sounds and wheezes expiratory wheezes Cardio Rate: regular rate Rhythm: regular rhythm GI Inspection: normal to inspection (round, soft) Psych Speech and Movement: speech clear Mood: congruent mood Affect: anxious affect Attitude: cooperative Thought Content: normal Insight: limited Judgment: limited Objective Last Vital Signs Temp 36.7 C 01/30/23 11:20 Pulse 97 H 01/30/23 11:20 Resp 19 01/30/23 11:20 BP 121/84 01/30/23 11:20 Pulse Ox 97 01/30/23 11:20 Laboratory Results - last 24 hr 01/30/23 05:53 WBC 6.22 RBC 4.83 Hgb 14.4 Hct 43.2 MCV 89 MCH 29.8 MCHC 33.3 RDW 13.1 Plt Count 178 MPV 10.6 Time Spent with Patient Time Spent with Patient: <25 minutes Time was spent: preparing to see the patient(eg.review tests), ordering medications,tests, procedures, referring, communicating with other health career development counselor, indepentently interpreting results, counseling the patient and care coordination
[2023-01-30] MEDS: Tamsulosin 0.4 MG CAPCR PO (20:35)
[2023-01-31] VITALS (15 sets, daily range): BP systolic 102–132; BP diastolic 63–82; PULSE 87–120; RESP 4–24; TEMP 36.4–36.9; O2SAT 92–112
[2023-01-31] MEDS: Heparin 5,000 UNITS/ML VIAL 5000 UNITS SC ×3 (05:37→22:33)
[2023-01-31 06:51] LABS: Abs Immature Grans 0.04 10^3/uL (0.0-0.06); Absolute Basophil Count 0.03 10^3/uL (0.0-0.2); Absolute Eosinophil Count 0.04 10^3/uL (0.0-0.7); Absolute Lymphocyte Count 1.56 10^3/uL (1.2-3.4); Absolute Monocyte Count 0.72 10^3/uL (0.1-0.8); Absolute Neutrophil Count 4.62 10^3/uL (1.2-6.7); Basophils % 0.4; Eosinophils % 0.6; HCT 43.9 % (40.0-50.0); HGB 14.5 g/dL (13.5-17.5); Immature Grans % 0.6; Lymphocytes % 22.3; MCH 29.5 pg (27.0-33.0); MCV 89 fL (80-95); MPV 10.5 fL (8.0-11.0); Monocytes % 10.3; Neutrophils % 65.8; Platelet Count 176 10^3/uL (130-400); RBC 4.92 10^6/uL (4.36-5.78); RDW 13.5 % (11.8-14.1); RDW-SD 43.9 fL; WBC 7.01 10^3/uL (4.4-10.8)
[2023-01-31] MEDS: Normal Saline Flush 10 ML SYR IVP (07:08)
[2023-01-31 07:09] LABS: Anion Gap 5.2 mmol/L (3-11); BUN 11 mg/dL (7-18); CO2 32.8 mmol/L (21.0-32.0); CREATININE 0.8 mg/dL (0.70-1.30); Calcium 9.3 mg/dL (8.5-10.1); Chloride 104 mmol/L (98-107); Estimated GFR 101.95 (mL/min/1.73m2); Glucose 109 mg/dL (74-106); Magnesium 2.2 mg/dL (1.8-2.4); Potassium 3.4 mmol/L (3.5-5.1); Sodium 142 mmol/L (136-145)
[2023-01-31] MEDS: Pantoprazole 40 MG VIAL IVP (07:09)
[2023-01-31] MEDS: Amoxicillin 875/Clav. 125 TAB PO ×2 (07:09→19:42)
[2023-01-31] MEDS: buPROPion-XL 150 MG TABCR 300 MG PO (07:09)
[2023-01-31] MEDS: clonazePAM 1 MG TAB PO ×2 (07:09→19:42)
[2023-01-31] MEDS: Gabapentin 300 MG CAP PO ×2 (07:09→19:42)
[2023-01-31] MEDS: guaiFENesin 600 MG TABCR PO ×2 (07:10→19:42)
[2023-01-31] MEDS: predniSONE 20 MG TAB 40 MG PO (07:10)
[2023-01-31] MEDS: Montelukast 10 MG TAB PO (07:10)
[2023-01-31] MEDS: Azithromycin 250 MG TAB PO (07:10)
[2023-01-31] MEDS: Budesonide/Formoterol 80/4.5 6.9 GM 60 PUFF INH IH ×2 (09:38→19:17)
[2023-01-31] MEDS: Ipratropium 0.5 MG/2.5 ML UPD VIAL UPD ×4 (09:40→19:18)
[2023-01-31] MEDS: Levalbuterol 1.25 MG/3 ML UPD VIAL UPD ×3 (10:11→16:33)
[2023-01-31] MEDS: Potassium Chloride 20 MEQ TABCR 40 MEQ PO (13:15)
--- NOTE | 2023-01-31 13:54 | NUR.NOTE ---
Nursing Note: spoke with charge nurse about supplementing pt morphine with ativan to assist with easier breathing
[2023-01-31] MEDS: LORazepam 1 MG TAB PO (14:20)
--- NOTE | 2023-01-31 14:26 | PGE_ITS ---
Date of Service Date of service: 01/31/23 Time of Service: 14:26 Assessment and Plan Assessment and plan (1) COPD exacerbation: Status: Acute Assessment and plan: continues to remain stable after down-step to Augmentin and azithromycin and dc zosyn. continue steroids but can change to prednisone, will discharge on 2 weeks taper. Last day of abbx today is day 7 (2) Respiratory failure with hypoxia and hypercapnia: Status: Chronic Assessment and plan: Now at his baseline. Will treat with scheduled and prn nebs, steroids, abx.as listed above (3) Lung nodule: Status: Acute Assessment and plan: Will need outpatient follow up w/ PET/CT but likely is met from GE mass (4) Mass of gastroesophageal junction: Status: Acute Assessment and plan: Discussed with general surgery - planned EGD next Wednesday - awaiting placement SNF; does not need to remain in hospital (5) Left kidney mass: Status: Acute Assessment and plan: septated 14 mm x 16 mm cyst in upper pole left kidney, too small to characterize. needs follow up U.S. or CT in 6 months; however, he will need PET scan before this d/t lung nodule and GE Mass. (6) DVT prophylaxis: Status: Acute Assessment and plan: Sc heparin (7) Discharge planning issues: Status: Acute Assessment and plan: palliative and case management following, referrals pending for SNF - medically stable may need to swing here Discuss COLST full code v DNR/DNI in setting of CA dx and patient not wanting tx or surgery but wanting to be full code discussed with Dr Jara Subjective Subjective Patient reports: no new complaints, pain is less (unchanged), voiding w/o difficulty, bowel movement and afebrile; denies diarrhea, nausea or vomiting Exam Const General: cooperative, comfortable, no acute distress and ill appearing chronically Nutritional Appearance: overweight Limitations: behavioral limitations HENMT Head: normal to inspection, normocephalic and atraumatic Ears: hearing grossly normal bilaterally Resp Effort & Inspection: able to speak in complete sentences, no audible wheezes and cough Quality of cough: wet Auscultation: diminished lung sounds and wheezes expiratory wheezes Cardio Rate: regular rate Rhythm: regular rhythm GI Inspection: normal to inspection (round, soft) Psych Speech and Movement: speech clear Mood: congruent mood Affect: anxious affect Attitude: cooperative Thought Content: normal Insight: limited Judgment: limited Objective Last Vital Signs Temp 36.4 C L 01/31/23 11:33 Pulse 120 H 01/31/23 12:44 Resp 24 01/31/23 12:44 BP 132/82 01/31/23 11:33 Pulse Ox 97 01/31/23 12:44 Laboratory Results - last 24 hr 01/31/23 01/31/23 06:15 06:15 WBC 7.01 RBC 4.92 Hgb 14.5 Hct 43.9 MCV 89 MCH 29.5 MCHC 33.0 RDW 13.5 Plt Count 176 MPV 10.5 Immature Gran % 0.6 Neutrophils % 65.8 Lymphocytes % 22.3 Monocytes % 10.3 Eosinophils % 0.6 Basophils % 0.4 Nucleated RBC % 0.0 Absolute Neutrophils 4.62 Absolute Lymphocytes 1.56 Absolute Monocytes 0.72 Absolute Eosinophils 0.04 Absolute Basophils 0.03 Sodium 142 Potassium 3.4 L Chloride 104 Carbon Dioxide 32.8 H Anion Gap 5.2 BUN 11 Creatinine 0.8 Est GFR (CKD-EPI 2020) 101.95 Glucose 109 H Calcium 9.3 Magnesium 2.2 Time Spent with Patient Time Spent with Patient: <25 minutes Time was spent: preparing to see the patient(eg.review tests), ordering medications,tests, procedures, referring, communicating with other health healthcare science specialist, indepentently interpreting results, counseling the patient and care coordination
[2023-01-31] MEDS: Tamsulosin 0.4 MG CAPCR PO (22:33)
[2023-02-01] VITALS (15 sets, daily range): BP systolic 106–148; BP diastolic 75–93; PULSE 84–105; RESP 4–22; TEMP 36.5–37.2; O2SAT 93–99
[2023-02-01 06:31] LABS: Abs Immature Grans 0.07 10^3/uL (0.0-0.06); Absolute Basophil Count 0.03 10^3/uL (0.0-0.2); Absolute Lymphocyte Count 1.78 10^3/uL (1.2-3.4); Absolute Monocyte Count 0.88 10^3/uL (0.1-0.8); Absolute Neutrophil Count 5.16 10^3/uL (1.2-6.7); Basophils % 0.4; Eosinophils % 1.2; HCT 44.9 % (40.0-50.0); HGB 14.9 g/dL (13.5-17.5); Immature Grans % 0.9; Lymphocytes % 22.2; MCHC 33.2 % (32.0-36.0); MCV 90 fL (80-95); MPV 10.7 fL (8.0-11.0); Neutrophils % 64.3; Platelet Count 174 10^3/uL (130-400); RBC 4.97 10^6/uL (4.36-5.78); RDW 13.7 % (11.8-14.1); RDW-SD 45.4 fL; WBC 8.02 10^3/uL (4.4-10.8)
[2023-02-01] MEDS: Heparin 5,000 UNITS/ML VIAL 5000 UNITS SC ×3 (06:45→21:21)
[2023-02-01 06:54] LABS: Anion Gap 4.7 mmol/L (3-11); BUN 13 mg/dL (7-18); CO2 33.3 mmol/L (21.0-32.0); CREATININE 0.8 mg/dL (0.70-1.30); Calcium 9.4 mg/dL (8.5-10.1); Chloride 105 mmol/L (98-107); Estimated GFR 101.95 (mL/min/1.73m2); Glucose 123 mg/dL (74-106); Potassium 3.8 mmol/L (3.5-5.1); Sodium 143 mmol/L (136-145)
[2023-02-01] MEDS: Levalbuterol 1.25 MG/3 ML UPD VIAL UPD ×4 (06:57→16:38)
--- NOTE | 2023-02-01 07:36 | NUR.NOTE ---
Nursing Note: Accessed chart to determine orders for EKG and to determine whether or not one needs to be cancelled.
[2023-02-01] MEDS: Budesonide/Formoterol 80/4.5 6.9 GM 60 PUFF INH IH ×2 (08:09→19:14)
[2023-02-01] MEDS: Montelukast 10 MG TAB PO (08:45)
[2023-02-01] MEDS: buPROPion-XL 150 MG TABCR 300 MG PO (08:45)
[2023-02-01] MEDS: clonazePAM 1 MG TAB PO ×2 (08:45→21:21)
[2023-02-01] MEDS: guaiFENesin 600 MG TABCR PO ×2 (08:46→21:20)
[2023-02-01] MEDS: QUEtiapine 50 MG TAB PO (08:46)
[2023-02-01] MEDS: predniSONE 20 MG TAB 40 MG PO (08:46)
[2023-02-01] MEDS: Pantoprazole 40 MG TABCR PO (08:46)
[2023-02-01] MEDS: Gabapentin 300 MG CAP PO ×2 (08:46→21:21)
[2023-02-01] MEDS: Ipratropium 0.5 MG/2.5 ML UPD VIAL UPD ×4 (09:56→21:19)
--- NOTE | 2023-02-01 13:05 | W.PM.PROGNOT ---
Date of Service Date of service: 02/01/23 Time of Service: 13:05 Assessment and Plan Assessment and plan (1) COPD exacerbation: Status: Acute Assessment and plan: Last day of abx completed (2) Respiratory failure with hypoxia and hypercapnia: Status: Chronic Assessment and plan: Now at his baseline. Will treat with scheduled and prn nebs, steroids, abx.as listed above (3) Lung nodule: Status: Acute Assessment and plan: Will need outpatient follow up w/ PET/CT but likely is met from GE mass (4) Mass of gastroesophageal junction: Status: Acute Assessment and plan: Discussed with general surgery - planned EGD next Wednesday - awaiting placement SNF; does not need to remain in hospital (5) Left kidney mass: Status: Acute Assessment and plan: septated 14 mm x 16 mm cyst in upper pole left kidney, too small to characterize. needs follow up U.S. or CT in 6 months; however, he will need PET scan before this d/t lung nodule and GE Mass. (6) DVT prophylaxis: Status: Acute Assessment and plan: Sc heparin (7) Discharge planning issues: Status: Acute Assessment and plan: palliative and case management following, referrals pending for SNF - medically stable may need to swing here Discuss COLST full code v DNR/DNI in setting of CA dx and patient not wanting tx or surgery but wanting to be full code discussed with Dr Jara Subjective Subjective Patient reports: no new complaints, tolerating a regular diet, voiding w/o difficulty, flatus, bowel movement and afebrile; denies diarrhea, nausea or vomiting Interval history since last seen: William states he does not want intervention in terms of surgery or chemotherapy, however he would like to be a full code. We discussed again that it would be a good idea for him to wait until the EGD was completed on February 05 to make any decisions, he said he agreed to that plan. He is followed by Palliative Care. He would like to go home v SNF. He does have community resources Exam Const General: cooperative, comfortable, no acute distress and ill appearing chronically Nutritional Appearance: overweight Limitations: behavioral limitations HENMT Head: normal to inspection, normocephalic and atraumatic Ears: hearing grossly normal bilaterally Resp Effort & Inspection: cough Quality of cough: dry Psych Appearance: grossly normal Speech and Movement: speech clear Mood: congruent mood Affect: normal affect and anxious affect Attitude: cooperative Thought Process: impoverished and loose association Thought Content: normal Insight: limited Judgment: limited Objective Last Vital Signs Temp 37.1 C 02/01/23 11:26 Pulse 94 H 02/01/23 12:24 Resp 17 02/01/23 12:24 BP 129/83 02/01/23 11:26 Pulse Ox 97 02/01/23 12:24 Laboratory Results - last 24 hr 02/01/23 02/01/23 06:07 06:07 WBC 8.02 RBC 4.97 Hgb 14.9 Hct 44.9 MCV 90 MCH 30.0 MCHC 33.2 RDW 13.7 Plt Count 174 MPV 10.7 Immature Gran % 0.9 Neutrophils % 64.3 Lymphocytes % 22.2 Monocytes % 11.0 Eosinophils % 1.2 Basophils % 0.4 Nucleated RBC % 0.0 Absolute Neutrophils 5.16 Absolute Lymphocytes 1.78 Absolute Monocytes 0.88 H Absolute Eosinophils 0.10 Absolute Basophils 0.03 Sodium 143 Potassium 3.8 Chloride 105 Carbon Dioxide 33.3 H Anion Gap 4.7 BUN 13 Creatinine 0.8 Est GFR (CKD-EPI 2020) 101.95 Glucose 123 H Calcium 9.4 Magnesium 2.0 Time Spent with Patient Time Spent with Patient: 25-34 minutes Time was spent: preparing to see the patient(eg.review tests), ordering medications,tests, procedures, referring, communicating with other health career resource technician, indepentently interpreting results, counseling the patient and care coordination
--- NOTE | 2023-02-01 14:55 | NT_ITS ---
Time of Service: 14:01 PT Notes Visit Reasons: Acute Exacerbation of COPD,Small Bowel Obstruction Patient refused PT with this provider. Reports wanting to stay in bed. Has 9- 10/10 pain. Sore in hips. Does not appear in distress. Requests return in 1 to 1.5 hours.
--- NOTE | 2023-02-01 15:39 | PT.INNT ---
Date of service: 02/01/23 Time of Service: 15:39 PT Notes Visit Reasons: Acute Exacerbation of COPD,Small Bowel Obstruction Patient has been refusing offer of services since 01/30/2023. Today, 2 attempts were made and patient was not willing to participate stating that he does not need PT right now. SAMMY Bay and MIRANDA Sparks have been notified of patient's repeated declination of services and the possibility of service discontinuation if patient continues not to cooperate.
--- NOTE | 2023-02-01 16:52 | PDOC.CMPRO ---
- If Service Date Differs Date of service: 02/01/23 Time of Service: 16:52 Care Management Progress Note S/O: William was sitting up on the edge of the bed when CM met with him. He stated that he is doing ok today. CM discussed his potential placement out of the area, as there are no local beds available. He expressed concern about going out of the area, and is hopeful that another local bed may open up. CM stated that per conversations with admissions at the [facility] and [facility], there are no anticipated openings in the near future. Per PT, William is doing well, and is at his functional baseline. While CM was in the room, William got out of bed and ambulated to the bathroom independently. Palliative care will follow up with him this afternoon to discuss his plan for discharge as well. CM will continue to follow. A: William is a 57 year old male admitted to [facility] on 01/25/23 with acute exacerbation of COPD, SBO. P: Anticipate William will return home when medically cleared, with a resumption of HH services vs SNF, if agreeable. CM will coordinate RCT private vehicle when ready. He will follow up with [facility], Palliative care, his PCP, and discharge plan of care. CM will continue to follow.
--- NOTE | 2023-02-01 18:02 | PCPN_ITS ---
Date of service: 02/01/23 Time of Service: 16:00 Assessment and Plan Assessment and plan (1) Left kidney mass: Status: Acute (2) Mass of esophagus: Status: Acute (3) Mass of upper lobe of right lung: Status: Acute (4) Mass of gastroesophageal junction: Status: Acute (5) COPD exacerbation: Status: Acute (6) Oxygen dependent: Status: Acute (7) Ambulatory dysfunction: Status: Deleted (8) PTSD (post-traumatic stress disorder): (9) COPD (chronic obstructive pulmonary disease): Qualifiers: COPD type: unspecified COPD Qualified Code(s): J44.9 - Chronic obstructive pulmonary disease, unspecified (10) Agoraphobia: (11) Anxiety with depression: (12) CHF (congestive heart failure): (13) Chronic pain syndrome: (14) Advanced care planning/counseling discussion: Status: Deleted Assessment and plan: PC will continue to follow William closely through inpatient stay and after discharge - reviewed discharge plan of SNF vs home, Recommended discharge to SNF for ongoing recovery, fears of returning home and being alone. William is choosing to be discharged home, aware that may happen tomorrow due to returning to baseline. His preference would be to remain in the hospital for more time, he is fearful of recurrent infection, does not feel current infection is fully treated. - William would benefit from med surg swing bed status, through Wednesday's EGD study, however I defer to the hospital team for this decision -Reviewed EGD study, preferences for obtaining imaging prior to making informed decision on next steps. William is adamant that he does not want to be cut up, would consider other plans once more information is gathered. Continues with desire to focus on quality of life -We reviewed that he shows no sign of active infection and this most likely is his new pulmonary baseline. -CM to coordinate with [facility] on safe discharge home, need confirmation of morphine and home delivery prior to discharge, order to be changed to morphine every 2 hours as needed - recommend PT be added to existing [facility] order future f/u: ongoing review of GOC and preferences for treatments s/p EGD; hospice eligibility; code status; pain management Subjective Subjective Interval history since last seen: per staff: William is returned to his baseline, oxygen levels and mobility are back to prehospitalization levels, back to 3 L continuous. Continues to request morphine as needed for dyspnea, it does look like he is having increased air hunger after around an hour, order remains at q3h. ADLs mostly independent, some assistance as needed. Spending most of the time in bed, will transfer to chair occasionally he has refused physical therapy 4 times, for various reasons 1 time he said I do not need it another time related to pain, dyspnea, fatigue. He is able to get up without supervision, last evaluation on 7 independent with transfers with supervision, able to ambulate 300 feet, did have shortness of breath and fatigue. PT will remain on hold at this time. EGD scheduled for Wednesday, 02/05, ERT to provide assistance for transportation. He was excepted at the [facility] in 2 other facilities, however neither one of them are local. William reports he is not ready for discharge, concern for infection at home, does not feel that he is back to baseline, and he still feels that improvement is possible , feels breathing can remains to catch and concerned that he has ongoing infection. He is aware of acceptance to the [facility], however would like to stay local if he agrees to any SNF so at this time he would prefer to go home. He does have some concern for failing at home and needing rehospitalization. He is interested in continuing to work with physical therapy, would do best if this was scheduled so we can focus on timing and be ready for it, would do home PT if discharged home tomorrow. Has moved his bowels today, has moved them 4 times, denies diarrheal symptoms, denies loose stools, denies incontinence He has his EGD scheduled for Wednesday, he is aware of this, would like to participate in this to find out if there is cancer diagnosis. Would want ongoing imaging, surgeries or treatment to be reviewed and make informed decision at that time. Preference for no major surgical intervention, previously expressed would not be interested in treatment if there was no point, would like to focus on quality of life Exam Const General: cooperative, comfortable, no acute distress and ill appearing chronically Nutritional Appearance: overweight Limitations: behavioral limitations HENMT Head: normal to inspection, normocephalic and atraumatic Ears: hearing grossly normal bilaterally Resp Effort & Inspection: cough Quality of cough: wet Psych Appearance: grossly normal Speech and Movement: speech clear Mood: congruent mood Affect: normal affect and anxious affect Attitude: cooperative Thought Process: impoverished and loose association Thought Content: normal Insight: limited Judgment: limited Objective Last Vital Signs Temp 99.0 F 02/01/23 15:20 Pulse 105 H 02/01/23 16:50 Resp 18 02/01/23 16:40 BP 126/76 02/01/23 15:20 Pulse Ox 98 02/01/23 16:50 Laboratory Results - last 24 hr 02/01/23 02/01/23 06:07 06:07 WBC 8.02 RBC 4.97 Hgb 14.9 Hct 44.9 MCV 90 MCH 30.0 MCHC 33.2 RDW 13.7 Plt Count 174 MPV 10.7 Immature Gran % 0.9 Neutrophils % 64.3 Lymphocytes % 22.2 Monocytes % 11.0 Eosinophils % 1.2 Basophils % 0.4 Nucleated RBC % 0.0 Absolute Neutrophils 5.16 Absolute Lymphocytes 1.78 Absolute Monocytes 0.88 H Absolute Eosinophils 0.10 Absolute Basophils 0.03 Sodium 143 Potassium 3.8 Chloride 105 Carbon Dioxide 33.3 H Anion Gap 4.7 BUN 13 Creatinine 0.8 Est GFR (CKD-EPI 2020) 101.95 Glucose 123 H Calcium 9.4 Magnesium 2.0
[2023-02-01] MEDS: Tamsulosin 0.4 MG CAPCR PO (21:21)
[2023-02-02] VITALS (8 sets, daily range): BP systolic 93–129; BP diastolic 62–82; PULSE 90–115; RESP 4–22; TEMP 36.4–36.8; O2SAT 94–98
[2023-02-02] MEDS: Heparin 5,000 UNITS/ML VIAL 5000 UNITS SC ×2 (06:06→14:56)
[2023-02-02 06:16] LABS: Abs Immature Grans 0.06 10^3/uL (0.0-0.06); Absolute Basophil Count 0.03 10^3/uL (0.0-0.2); Absolute Eosinophil Count 0.08 10^3/uL (0.0-0.7); Absolute Lymphocyte Count 1.74 10^3/uL (1.2-3.4); Absolute Neutrophil Count 5.25 10^3/uL (1.2-6.7); Basophils % 0.4; HCT 45.7 % (40.0-50.0); HGB 15.1 g/dL (13.5-17.5); Immature Grans % 0.7; Lymphocytes % 21.6; MCH 29.6 pg (27.0-33.0); MCV 90 fL (80-95); MPV 10.8 fL (8.0-11.0); Monocytes % 11.2; Neutrophils % 65.1; Platelet Count 169 10^3/uL (130-400); RDW 13.5 % (11.8-14.1); RDW-SD 44.8 fL; WBC 8.06 10^3/uL (4.4-10.8)
[2023-02-02] MEDS: Budesonide/Formoterol 80/4.5 6.9 GM 60 PUFF INH IH (06:19)
[2023-02-02 06:31] LABS: Anion Gap 6.3 mmol/L (3-11); BUN 11 mg/dL (7-18); CO2 31.7 mmol/L (21.0-32.0); CREATININE 0.8 mg/dL (0.70-1.30); Calcium 9.4 mg/dL (8.5-10.1); Chloride 103 mmol/L (98-107); Estimated GFR 101.95 (mL/min/1.73m2); Glucose 145 mg/dL (74-106); Magnesium 2.1 mg/dL (1.8-2.4); Potassium 3.7 mmol/L (3.5-5.1); Sodium 141 mmol/L (136-145)
[2023-02-02] MEDS: Ipratropium 0.5 MG/2.5 ML UPD VIAL UPD ×2 (08:15→11:39)
[2023-02-02] MEDS: Levalbuterol 1.25 MG/3 ML UPD VIAL UPD ×2 (08:16→11:39)
[2023-02-02] MEDS: Montelukast 10 MG TAB PO (08:32)
[2023-02-02] MEDS: Gabapentin 300 MG CAP PO (08:32)
[2023-02-02] MEDS: QUEtiapine 50 MG TAB PO (08:32)
[2023-02-02] MEDS: guaiFENesin 600 MG TABCR PO (08:32)
[2023-02-02] MEDS: predniSONE 20 MG TAB 40 MG PO (08:32)
[2023-02-02] MEDS: buPROPion-XL 150 MG TABCR 300 MG PO (08:32)
[2023-02-02] MEDS: Pantoprazole 40 MG TABCR PO (08:32)
[2023-02-02] MEDS: clonazePAM 1 MG TAB PO (08:32)
--- NOTE | 2023-02-02 15:08 | W.PM.DS.N ---
Date of service: 02/02/23 Time of Service: 15:08 DS: Diagnosis Discharge Diagnosis (1) Left kidney mass: Status: Acute (2) Mass of esophagus: Status: Acute (3) Mass of upper lobe of right lung: Status: Acute (4) Mass of gastroesophageal junction: Status: Acute (5) COPD exacerbation: Status: Acute (6) Oxygen dependent: Status: Acute (7) Ambulatory dysfunction: Status: Acute (8) PTSD (post-traumatic stress disorder): Status: Chronic (9) COPD (chronic obstructive pulmonary disease): Status: Chronic (10) Agoraphobia: (11) Anxiety with depression: (12) CHF (congestive heart failure): (13) Chronic pain syndrome: (14) Advanced care planning/counseling discussion: Status: Acute Discharge Plan Disposition Patient Disposition: Home W/Home Health Services Condition: Fair Discharge Details Reason For Visit: Acute Exacerbation of COPD,Small Bowel Obstruction Admit Date/Time: 01/25/23 13:14 Admit Provider: Lore Lynne Attending Provider: Lore Lynne Primary Care Provider: Lorrie Crespo Hospital Course Hospital Course: Mr Gay is a 57 year old male with PMHx of oxygen-dependent COPD, normally on 3L of O2 by [place], as well as H/O combined CHF s/p AICD, NICMO, PTSD, who presented to [facility] ED on 01/25/2023 w/ shortness of breath and abdominal pain. His workup was c/w COPD exacerbation and a small bowel obstruction. With nebulizer therapy his O2 requirement went down to its baseline of 3L.? General surgery was consulted and felt that the patient would not require surgery for his intraabdominal process and the diagnosis of SBO was questioned. Importantly, his CT of the chest shows a mass at the GE junction, new prominent subcarinal, paraaortic, retroperitoneal adenopathy, a stellate lung nodule RUL. These finds are new.? He complained of nausea and vomiting and diffuse abdominal pain, cough productive of yellow sputum.? He was admitted to the medical floor and treated for COPD with steroids, oxygen, expectorants and inhalers.? He returned to baseline.? He was seen by surgery for the new mass at the gastroesophageal junction.? He is schedule for an EGD on WednesdayFebruary 05 @ 11:15 am and will be followed by surgery. He is unsure if he wants treatment or surgery. He did say he wanted to remain a full code until after results from biopsies. He has oxygen at home, arranged by RT here and [facility].? He will receive a new nebulizer this week. Home health has been arranged but they are unable to see him today.? Pharmacy prepared eight single dose oral liquid doses of Morphine for him to take home with him.? He understands he will take them every 3 hours as needed for pain/shortness of breath.?He was started on additional Quetiapine 50 mg orally in the am to help with his anxiety. Pantroprazole continued and Prednisone 40 mg orally for 5 days. He understands he is to be NPO after midnight on February 04 and that the procidure is at 11:15 am. He will have a ride. He prefers to go home rather than? SNF.? 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 He will resume nursing services with home health. Discussed with Dr Cruz Home Meds and New Rx's Prescriptions: New prednisone 20 mg Tablet 40 mg PO DAILY Qty: 5 0RF pantoprazole 40 mg Tablet,Delayed Release (Dr/Ec) 40 mg PO DAILY@0730 Qty: 30 0RF morphine 10 mg/5 mL Solution 7.5 mg PO Q3H PRN PRN (Reason: pain) Qty: 0 0RF quetiapine 50 mg tablet 50 mg PO DAILY Qty: 30 0RF Continued naloxone 4 mg/actuation spray,non-aerosol 4 mg intranasal Q2M PRN Rx Instructions: spray 1 dose into ONE nostril; alternate nostrils w each dose until help arrives ondansetron 4 mg tablet,disintegrating 4 mg PO Q8H PRN (Reason: nausea and vomiting) Qty: 14 0RF Patient Comments: not on med list sennosides [senna] 8.6 mg tablet 8.6 mg PO BID PRN (Reason: constipation) Qty: 60 5RF Patient Comments: not on med list polyethylene glycol 3350 17 gram powder in packet 17 g PO BID Qty: 14 0RF prednisone 10 mg tablet 10 mg PO DAILY Qty: 30 2RF clonazepam 1 mg tablet 1 mg PO BID guaifenesin 100 mg/5 mL liquid 200 mg PO Q4H PRN PRN (Reason: congestion) Qty: 1000 1RF Patient Comments: not on med list calcium carbonate [Tums] 200 mg calcium (500 mg) tablet,chewable 200 mg PO Q2H WHILE AWAKE PRN (Reason: dyspepsia) Qty: 90 1RF Patient Comments: not on med list gabapentin 300 mg tablet 300 mg PO BID ipratropium-albuterol 0.5 mg-3 mg(2.5 mg base)/3 mL solution for nebulization 3 ml INHALATION Q6H PRN PRN (Reason: shortness of breath or wheezing) Qty: 180 3RF buprenorphine 7.5 mcg/hour patch weekly 1 patch transdermal Q7D Qty: 4 0RF Rx Instructions: dose increase morphine concentrate 100 mg/5 mL (20 mg/mL) solution 7.5 mg PO Q2H PRN MDD 800mg PRN (Reason: pain) Qty: 500 0RF Rx Instructions: for air hunger pravastatin 20 mg tablet 20 mg PO QHS Qty: 10 0RF pantoprazole 40 mg Tablet,Delayed Release (Dr/Ec) 40 mg PO DAILY@0730 Qty: 30 0RF montelukast 10 mg Tablet 10 mg PO DAILY acetaminophen [Tylenol] 325 mg Capsule 325 mg PO DAILY budesonide-formoterol 80-4.5 mcg/actuation Hfa Aerosol Inhaler 2 puff INHALATION BID Patient Comments: not on med list bupropion HCl 300 mg tablet extended release 24 hr 300 mg PO DAILY Patient Comments: Take 1 tablet by mouth once a day tamsulosin 0.4 mg capsule 0.4 mg PO HS Patient Comments: 1 tab daily guaifenesin 600 mg Tablet Extended Release 600 mg PO BID PRN albuterol sulfate [ProAir HFA] 90 mcg/actuation Hfa Aerosol Inhaler 2 puff INHALATION Q4H WHILE AWAKE PRN Rx Instructions: Q4-6H PRN nitroglycerin 0.3 mg Tablet, Sublingual 0.3 mg SUBLINGUAL Q5-15M PRN Rx Instructions: do not exceed 3 doses per episode famotidine 10 mg Tablet 10 mg PO BID PRN benztropine 1 mg Tablet 1 mg PO QHS Patient Comments: not on med list nicotine 21 mg/24 hr Patch 24 Hour 1 patch transdermal QDAY Patient Comments: not on med list quetiapine [Seroquel XR] 400 mg tablet extended release 24 hr 400 mg PO HS Rx Instructions: total dose 450 mg quetiapine [Seroquel XR] 50 mg tablet extended release 24 hr 50 mg PO HS Patient Comments: not on med list Rx Instructions: total dose 450 mg prednisone 20 mg tablet 20 mg PO DAILY Qty: 3 0RF Patient Comments: not on med list Rx Instructions: then resume 10 mg daily (existing Rx) Discharge Instructions Additional Instructions: Continue home medications. Take prednisone for 5 days. Start quetiapine 50 mg daily in the morning, in addition to your night dose, which remains at 450 mg. Home Health Resumption of Care Stand Alone Forms: Nursing Discharge Form Referrals: Kapil Olivares MD [ [facility] STAFF PHYSICIAN] - 02/05/23 12:00 pm () Lorrie Crespo [Primary Care Provider] - 02/16/23 1:50 pm () Activity:: Activity as Tolerated Equipment/Supplies:: No Equipment Needed Diet:: Low Sodium Discharge Orders Discharge Orders: Discharge Order (Routine); Ordered 02/02/23 Ordered By: Christie Sanchez Discharge Data Discharge Date/Time-TO BE ENTERED AT DEPARTURE: 02/02/23 15:58 DS: Summary Time Spent with Patient providing and/or coordinating discharge services: Greater than 30 minutes Status at Discharge Functional status at discharge: uses cane/walker Overall status at discharge: patient is progressing back to baseline Mental Status: mental status grossly normal (at baseline) Speech and Movement: speech clear Mood: congruent mood Affect: normal affect and anxious affect Exam Const General: cooperative, comfortable, no acute distress and ill appearing chronically Nutritional Appearance: overweight Limitations: behavioral limitations [facility] Head: normal to inspection, normocephalic and atraumatic Ears: hearing grossly normal bilaterally Resp Effort & Inspection: cough Quality of cough: wet Psych Appearance: grossly normal Mental Status: mental status grossly normal (at baseline) Speech and Movement: speech clear Mood: congruent mood Affect: normal affect and anxious affect Attitude: cooperative Thought Process: impoverished and loose association Thought Content: normal Insight: limited Judgment: limited DS: Data Vitals/I&O Vitals and I&O: Vital Signs Temperature 36.4 C L 02/02/23 12:09 Temperature Source Tympanic 02/02/23 12:09 Pulse 102 H 02/02/23 12:09 Pulse Rhythm Regular 02/02/23 08:39 Pulse 105 H 01/25/23 13:31 Respiratory Rate 12 02/02/23 12:09 Respiratory Effort Short of Breath, Pursed Lip 02/02/23 08:39 Respiratory Depth Shallow 02/01/23 20:00 Respiratory Pattern Tachypnea 02/01/23 20:00 Blood Pressure 112/77 02/02/23 12:09 Blood Pressure Mean 97 01/25/23 13:30 Blood Pressure Position Sitting 01/25/23 08:09 Pulse Oximetry 96 02/02/23 12:09 Oxygen Delivery Method Nasal Cannula 02/02/23 12:09 Oxygen Flow Rate 3 02/02/23 12:09 Pain Level 9 02/02/23 14:55 Comment N R Notified 01/26/23 19:25 Intake & Output 02/01/23 02/02/23 02/02/23 23:59 11:59 23:59 Intake Total 1080 / 1080 400 / 400 Balance 1080 / 1080 400 / 400 Intake: Oral 1080 / 1080 400 / 400 Other: Urine Appearance Clear Comment pT stated he voided in [place] 2x between breakfast and lunch Voiding Methods Toilet Data Completed and Pending Labs on day of discharge: Labs from last 24 hours 02/02/23 02/02/23 06:05 06:05 WBC 8.06 RBC 5.10 Hgb 15.1 Hct 45.7 MCV 90 MCH 29.6 MCHC 33.0 RDW 13.5 Plt Count 169 MPV 10.8 Immature Gran % 0.7 Neutrophils % 65.1 Lymphocytes % 21.6 Monocytes % 11.2 Eosinophils % 1.0 Basophils % 0.4 Nucleated RBC % 0.0 Absolute Neutrophils 5.25 Absolute Lymphocytes 1.74 Absolute Monocytes 0.90 H Absolute Eosinophils 0.08 Absolute Basophils 0.03 Sodium 141 Potassium 3.7 Chloride 103 Carbon Dioxide 31.7 Anion Gap 6.3 BUN 11 Creatinine 0.8 Est GFR (CKD-EPI 2020) 101.95 Glucose 145 H Calcium 9.4 Magnesium 2.1 PFSH All Active Problems (Updated 01/28/23 @ 10:16 by Michelle Lemus DO) Advanced care planning/counseling discussion (Acute) Left kidney mass (Acute) superior pole US ordered 01/26/23 Mass of esophagus (Acute) by CT Mass of upper lobe of right lung (Acute) by CT AICD (automatic cardioverter/defibrillator) present (Acute) Mass of gastroesophageal junction (Acute) Lung nodule (Acute) Abdominal pain (Acute) pt state he has stopped smoking Personal history of nicotine dependence (Acute) Respiratory failure with hypoxia and hypercapnia (Chronic) COPD exacerbation (Acute) Unintentional weight loss (Acute) Peripheral neuropathic pain (Acute) Encounter for palliative care (Acute) Encounter for hospice care discussion (Acute) Oxygen dependent (Acute) Nightmares (Acute) Altered mental status (Acute) Ambulatory dysfunction (Acute) Adult failure to thrive (Acute) Bullae (Acute) Cigarette smoker (Acute) Cognitive impairment (Chronic) Ambulatory dysfunction (Chronic) Current smoker (Acute) Lung bullae (Acute) Musculoskeletal chest pain (Chronic) Lethargy (Acute) Lung disease (Acute) Arthritis (Acute) Noncompliance with medication regimen (Acute) Depression (Chronic) UTI (urinary tract infection) (Acute) Polysubstance abuse (Chronic) Confusion (Acute) Orthostatic hypotension (Acute) PTSD (post-traumatic stress disorder) (Chronic) Discharge planning issues (Acute) Ambulatory dysfunction (Acute) COPD (chronic obstructive pulmonary disease) (Chronic) DVT prophylaxis (Acute) Left rib fracture (Acute) Rib fracture (Acute) Syncope (Chronic) Severe chronic obstructive pulmonary disease (Chronic) Systolic and diastolic CHF, chronic (Chronic) LBBB (left bundle branch block) (Chronic) Nonischemic dilated cardiomyopathy (Chronic) Medical History Acquired deformity of left hand Agoraphobia Anxiety Anxiety with depression Biventricular implantable cardioverter-defibrillator (ICD) in situ Mode:DDD, Low rate 60bpm, Atrial lead: medtronic 5076, SN: [id number] 09/27/14; RV lead Medtronic 6935M SN: [id number] 09/27/14; LV lead Medtronic 4396, SN; [id number] 09/27/14 (updated 03/11/20) BPH (benign prostatic hyperplasia) Cardiomyopathy CHF (congestive heart failure) Chronic pain syndrome Constipation COPD (chronic obstructive pulmonary disease) Cyst Diabetes Diarrhea Dizziness DVT prophylaxis Elevated d-dimer Erectile dysfunction Fatigue Hallucination Hand paresthesia Heart disease History of suicidal ideation History of tobacco abuse Hyperlipidemia Impacted ear wax Metacarpophalangeal joint pain Musculoskeletal chest pain Pacemaker Pain Pain in right hip Panic anxiety syndrome Skin lesion Tobacco use Surgical History Status post biventricular pacemaker Family History Mother , 2008 COPD (chronic obstructive pulmonary disease) Social History Smoking/Tobacco Use Status: Former Tobacco Use Quit Date: 03/08/22 Pack-years: 120 Smoking risk assessment performed?: Yes Alcohol Intake: former Drug use: Never Substance use type: does not use Household members: none Pets and animals: No What type of physical activity do you participate in: none Seatbelt use: always Do you feel safe at home: Yes Do you feel safe in your relationship?: Yes Additional Social history: lives alone Time Spent with Patient Time Spent with Patient: 45-69 minutes Time was spent: preparing to see the patient(eg.review tests), obtaining and/or reviewing separately otained hiistory, referring, communicating with other health lawn care technician, indepentently interpreting results, counseling the patient and care coordination
--- NOTE | 2023-02-02 16:17 | PCPN_ITS ---
Date of service: 02/02/23 Time of Service: 15:30 Assessment and Plan Assessment and plan (1) COPD exacerbation: Status: Acute (2) Left kidney mass: Status: Acute (3) Mass of esophagus: Status: Acute (4) Mass of upper lobe of right lung: Status: Acute (5) Mass of gastroesophageal junction: Status: Acute (6) Abdominal pain: Status: Acute (7) Oxygen dependent: Status: Acute (8) Severe chronic obstructive pulmonary disease: Status: Chronic (9) Systolic and diastolic CHF, chronic: Status: Chronic (10) Biventricular implantable cardioverter-defibrillator (ICD) in situ: (11) Chronic pain syndrome: (12) PTSD (post-traumatic stress disorder): (13) Agoraphobia: (14) Anxiety: (15) Advanced care planning/counseling discussion: Status: Deleted Assessment and plan: William is to be discharge home today, CLINICAL REHABILITATION AIDE Cuca will provide transportation home - RT has contacted [facility] to have exchange of nebulizer machine in his home - RT to provide portable O2 for safe return home - [facility] to provide 8 prefilled syringes w/7.5mg morphine dose; [facility] to re-admit to services tomorrow, will start morphine delivery at that time, order submitted, changed to q2h PRN to reflect his current need - EDG scheduled for Wednesday, instructions: NPO starting midnight Wed, okay to have water until 8a; procedure at 11:15, scheduled for 30 mins, plan for 3 hours Reviewed plan with William EDG Wednesday to determine POC; preferences remain no surgery or chemotherapy, would like to know results of EDG prior to determination of GOC, consider hospice enrollment based on Wednesday's result Subjective Subjective Interval history since last seen: William is being discharge home today as he has physical condition as returned to baseline he does not have portable oxygen or access to get his tank from home his nebulizer machine is broken he does not have morphine available thru [facility] until they re-establish with him tomorrow William is ready to go home however is hesitant and nervous to be out of hospital setting. His preference remains to present home vs to non-local SNF; he is feeling anxious/worried about returning home he continues to have pain in epigastric/mid sternal area, worse w/swallowing EGD scheduled for Wednesday at 11:15a, CLINICAL REHABILITATION AIDE to provide transportation CLINICAL REHABILITATION AIDE, Cuca, picking him up today for transfer home Exam Const General: cooperative, comfortable, no acute distress and ill appearing chronically Nutritional Appearance: overweight Limitations: behavioral limitations HENMT Head: normal to inspection, normocephalic and atraumatic Ears: hearing grossly normal bilaterally Resp Effort & Inspection: cough Quality of cough: wet Psych Appearance: grossly normal Speech and Movement: speech clear Mood: congruent mood Affect: normal affect and anxious affect Attitude: cooperative Thought Process: impoverished and loose association Thought Content: normal Insight: limited Judgment: limited Objective Last Vital Signs Temp 97.5 F L 02/02/23 12:09 Pulse 102 H 02/02/23 12:09 Resp 12 02/02/23 12:09 BP 112/77 02/02/23 12:09 Pulse Ox 96 02/02/23 12:09 Laboratory Results - last 24 hr 02/02/23 02/02/23 06:05 06:05 WBC 8.06 RBC 5.10 Hgb 15.1 Hct 45.7 MCV 90 MCH 29.6 MCHC 33.0 RDW 13.5 Plt Count 169 MPV 10.8 Immature Gran % 0.7 Neutrophils % 65.1 Lymphocytes % 21.6 Monocytes % 11.2 Eosinophils % 1.0 Basophils % 0.4 Nucleated RBC % 0.0 Absolute Neutrophils 5.25 Absolute Lymphocytes 1.74 Absolute Monocytes 0.90 H Absolute Eosinophils 0.08 Absolute Basophils 0.03 Sodium 141 Potassium 3.7 Chloride 103 Carbon Dioxide 31.7 Anion Gap 6.3 BUN 11 Creatinine 0.8 Est GFR (CKD-EPI 2020) 101.95 Glucose 145 H Calcium 9.4 Magnesium 2.1
--- NOTE | 2023-02-02 16:59 | PDOC.HHF2F ---
Home Health Referral Home Health Orders Clinical synopsis of why skilled professionals are needed: Mr Gay is a 57 year old male with PMHx of oxygen-dependent COPD, normally on 3L of O2 by [place], as well as H/O combined CHF s/p AICD, NICMO, PTSD, who presented to [facility] ED on 01/25/2023 w/ shortness of breath and abdominal pain. His workup was c/w COPD exacerbation and a small bowel obstruction. With nebulizer therapy his O2 requirement went down to its baseline of 3L.? General surgery was consulted and felt that the patient would not require surgery for his intraabdominal process and the diagnosis of SBO was questioned. Importantly, his CT of the chest shows a mass at the GE junction, new prominent subcarinal, paraaortic, retroperitoneal adenopathy, a stellate lung nodule RUL. These finds are new.? He complained of nausea and vomiting and diffuse abdominal pain, cough productive of yellow sputum.? He was admitted to the medical floor and treated for COPD with steroids, oxygen, expectorants and inhalers.? He returned to baseline.? He was seen by surgery for the new mass at the gastroesophageal junction.? He is schedule for an EGD on WednesdayFebruary 05 @ 11:15 am and will be followed by surgery. He is unsure if he wants treatment or surgery. He did say he wanted to remain a full code until after results from biopsies. He has oxygen at home, arranged by RT here and [facility].? He will receive a new nebulizer this week. Home health has been arranged but they are unable to see him today.? Pharmacy prepared eight single dose oral liquid doses of Morphine for him to take home with him.? He understands he will take them every 3 hours as needed for pain/shortness of breath.?He was started on additional Quetiapine 50 mg orally in the am to help with his anxiety. Pantroprazole continued and Prednisone 40 mg orally for 5 days. He understands he is to be NPO after midnight on February 04 and that the procidure is at 11:15 am. He will have a ride. He prefers to go home rather than? SNF.? 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 He will resume nursing services with home health. Medical diagnosis necessitation home health referral: COPD Registered Nurse: Check all that apply Instruct on new or changed medication(s)/assess compliance: Ordered Assess for exacerbation of medical condition, instruct patient/caregivers on signs and symptoms to report for early detection: Ordered Physical Therapist: Check all that apply Increase strength & endurance for safe mobility at home: Ordered To design/establish home maintenance program: Ordered Fall reduction therapy program for patient with history of frequent falls: Ordered Home safety evaluation and teaching/gait training including stair management (if applicable): Ordered Better Breathing Program: Ordered Occupational Therapist: Evaluate and treat for patient unable to perform ADL/IADL/self-care: Ordered Upper extremity strengthening, range and motion: Ordered Onsite Health Coach: Assist with community resources: Ordered Assist with buttermilk drier operator care planning: Ordered Home Bound Status Requires the aid of supportive device (check all that apply): Cane Describe why leaving home would require a considerable and taxing effort: Side effects from pain medication (sedation/drowsiness), Requires frequent rest periods, Oxygen and Confusion Encounter Date and Reason: I certify that a FTF encounter for this patient was performed on February 02, 2023 and that such encounter was related to the primary reason the patient requires home health services. The encounter was conducted in the following manner: By me as the certifying physician, MOTOR POOL DRIVER, PA or By an inpatient physician, MOTOR POOL DRIVER or PA during an inpatient stay who communicated findings to me, Certification And Authentication I certify that I composed the above information based on my clinical judgment relating to this patient's medical condition and, if applicable, clinical findings communicated to me by the NPP or inpatient physician who performed the FTF encounter. Name of Provider that will be monitoring home health services: Lorrie Crespo
--- NOTE | 2023-02-02 18:42 | CMDISCH_ITS ---
- If Service Date Differs Date of service: 02/02/23 Time of Service: 18:42 LACE Index Scoring Tool - Questions: Length of Stay (in days): 7 - 13 Acuity (Admit via E.D.?): Yes Comorbidities: Diabetes w/o Complication, Congestive Heart Failure, Chronic Pulmonary Disease, Any Tumor E.D. Visits: 6 - Answers: Total Score: 17 Risk of Readmission: High Risk Care Management Discharge Reason for Hospitalization: Acute exacerbation of COPD, SBO Discharge Plan: William returned home today with new orders for HH RN, who will support the delivery of morphine, as prescribed by palliative care. HH was not able to support a same day admission today, therefore he was discharged with a supply of morphine for self administration through tomorrow, when HH can admit him to services. RT coordinated support through [facility] for William's nebulizer machine to be repaired/replaced. RT provided O2 for his transport home. William has an EGD scheduled on 02/05/23 at 11:15am. CM contacted [employer]INTE[employer]NCE [employer] and provided details for this appointment, as they will provide transportation to and from the day surgery procedure. [employer] MAINTENANCE [employer] transported William home via private vehicle. He will follow up with his PCP, palliative care and his discharge plan of care. Patient/Family Education Needs: Review discharge instructions and limitations, discussion of self care needs including ask me three and goals of care. Services Needed at Discharge: Home Health Care Services (HH RN), Transportation (AVIATION MAINTENANCE INSTRUCTOR, private vehicle) - MH Services (Omit if N/A) Current MH Services: [employer] MAINTENANCE [employer]
--- NOTE | 2023-02-04 08:26 | PT.INDS ---
Date of service: 01/28/23 PT Notes Visit Reasons: Acute Exacerbation of COPD,Small Bowel Obstruction Inpatient Physical Therapy Discharge Summary Date: 01/28/2023 Dates of Service: 01/27/2023 through 01/28/2023 This is a clinical summary of care provided for the duration of dates listed above. No charge was made in the completion of this documentation. Referring Doctor: Lore Lynne MD PT Orders: PT CONSULT: Limited ability Precautions: Fall.? Standard.? Activity as tolerated.? Patient Profile/Admitting Diagnosis:Vivian Thomas is a 57-year-old male who presented to the ED on 01/25/2023 due to worsening shortness of breath and chest pain for the past 24 hours.? Patient is admitted for medical management of COPD exacerbation, SBO,respiratory failure with hypoxia and hypercapnia, lung nodule, and mass of the gastroesophageal junction. PMHx: All Active Problems?(Updated 01/25/23 @ 20:11 by Lore Lynne MD) Mass of gastroesophageal junction (Acute) Lung nodule (Acute) SBO (small bowel obstruction) (Acute) Abdominal pain (Acute) Personal history of nicotine dependence (Acute) Respiratory failure with hypoxia and hypercapnia (Chronic) COPD exacerbation (Acute) Unintentional weight loss (Acute) Peripheral neuropathic pain (Acute) Encounter for palliative care (Acute) Encounter for hospice care discussion (Acute) Oxygen dependent (Acute) Nightmares (Acute) Altered mental status (Acute) Ambulatory dysfunction (Acute) Adult failure to thrive (Acute) Bullae (Acute) Cigarette smoker (Acute) Cognitive impairment (Chronic) Ambulatory dysfunction (Chronic) Current smoker (Acute) Lung bullae (Acute) Musculoskeletal chest pain (Chronic) Lethargy (Acute) Lung disease (Acute) Arthritis (Acute) Noncompliance with medication regimen (Acute) Depression (Chronic) UTI (urinary tract infection) (Acute) Polysubstance abuse (Chronic) Confusion (Acute) Orthostatic hypotension (Acute) PTSD (post-traumatic stress disorder) (Chronic) Discharge planning issues (Acute) Ambulatory dysfunction (Acute) COPD (chronic obstructive pulmonary disease) (Chronic) DVT prophylaxis (Acute) Left rib fracture (Acute) Rib fracture (Acute) Syncope (Chronic) Severe chronic obstructive pulmonary disease (Chronic) Systolic and diastolic CHF, chronic (Chronic) LBBB (left bundle branch block) (Chronic) Nonischemic dilated cardiomyopathy (Chronic) Medical History?(Updated 01/25/23 @ 20:11 by Lore Lynne MD) Acquired deformity of left hand Agoraphobia Anxiety Anxiety with depression Biventricular implantable cardioverter-defibrillator (ICD) in situ Mode:DDD, Low rate 60bpm, Atrial lead: medtronic 5076, SN: [id number] 09/27/14; RV lead Medtronic 6935M SN: [id number] 09/27/14; LV? lead Medtronic 4396, SN; [id number] 09/27/14 (updated 03/11/20)BPH (benign prostatic hyperplasia) Cardiomyopathy CHF (congestive heart failure) Chronic pain syndrome Constipation COPD (chronic obstructive pulmonary disease) Cyst Diabetes Diarrhea Dizziness DVT prophylaxis Elevated d-dimer Erectile dysfunction Fatigue Hallucination Hand paresthesia Heart disease History of suicidal ideation History of tobacco abuse Hyperlipidemia Impacted ear wax Metacarpophalangeal joint pain Musculoskeletal chest pain Pacemaker Pain Pain in right hip Panic anxiety syndrome Skin lesion Tobacco use Surgical History? Status post biventricular pacemaker Social History/Home Situation: Patient lives alone in a two-level home with no steps to enter.? He receives assistance from[place] multiple times per day.? He is disabled and no longer working.? States that he still has his walker that was given to him previously. No longer works.? On disability. Equipment Owned/DME: [facility] Subjective:?? NT. See most recent SIMULATION SPECIALIST notes. Objective:? General Observation: NT. See most recent SIMULATION SPECIALIST notes. Mental Status: NT. See most recent SIMULATION SPECIALIST notes. Pain: NT. See most recent SIMULATION SPECIALIST notes. ROM: Right Upper Extremity: ? Shoulder Flexion WFL. Shoulder abduction WFL. Elbow flexion WFL. Wrist flexion WFL. Functional opening and closing of hand WFL. Left Upper Extremity:? Shoulder Flexion WFL. Shoulder abduction WFL. Elbow flexion WFL. Wrist flexion WFL. Functional opening and closing of hand WFL. Right Lower Extremity: Hip flexion WFL. Hip abduction WFL. Knee flexion WFL. Ankle dorsiflexion WFL. Ankle plantarflexion WFL. Left Lower Extremity: Hip flexion WFL. Hip abduction WFL. Knee flexion WFL. Ankle dorsiflexion WFL. Ankle plantarflexion WFL. Strength: Right Upper Extremity: Shoulder flexors 4-/5. Shoulder abductors 4-/5. Elbow flexors 5/5. Elbow extensors 4-/5. Shipwright Supervisor strong. Left Upper Extremity: Shoulder flexors 4-/5. Shoulder abductors 4-/5. Elbow flexors 5/5. Elbow extensors 4-/5. Shipwright Supervisor strong. Right Lower Extremity: Hip flexors 4-/5. Hip abductors 4-/5. Knee flexors 5/5. Knee extensors 4-/5. Ankle dorsiflexors 4-/5. Ankle plantarflexors 4/5. Left Lower Extremity: Hip flexors 4-/5. Hip abductors 4-/5. Knee flexors 5/5. Knee extensors 4-/5. Ankle dorsiflexors 4-/5. Ankle plantarflexors 4/5. BED MOBILITY/TRANSFERS? Supine-sit: I? Sit-supine: I? Sit-stand: I ? Stand-sit: I ? Bed-Chair: I ? Chair-bed: I ? GAIT? Assistive Device: No AD FWW? Weight bearing: Full Assist: Independent with in-room distances supervision with FWW? Distance: 20' x2 without assistive device support 250' with FWW Deviation: Seated rest x1, SOB, increased fatigue Balance:? Static Sitting: Normal Dynamic Sitting: Normal Static Standing: Fair Dynamic Standing: Fair 4-stage balance test: Able to maintain feet together but unable to assume semi-tandem, full tandem, and one-legged stance for 10 seconds. Special Tests: Mobility Limitations Standardized Measure [facility] 6 clicks Basic Mobility Inpatient Short Form: Raw Score: 22 ? CMS Score: 21% impairment ? ? ? Assessment:? Patient presents with clinical signs and symptoms consistent with diminished functional mobility related to acute medical issues, as demonstrated by the following impairment level findings: 1.? Decreased balance 2.? Decreased lower extremity strength 3.? Decreased upper extremity strength 4.? Shortness of breath Impairments are contributing to the following functional limitations: 1.? Difficulty with ambulation without assistive device 2.? Increased completion time for mobility ADL performance 3.? Increased risk for falls Goals: Goals X1 week 1. Supine-Sit: Independent MET 2. Sit-Supine: Independent MET 3. Sit-Stand: Independent MET 4. Stand-Sit: Independent MET 5. Bed-Chair: Independent with use of FWW MET 6. Chair-Bed: Independent with the use of FWW MET 7. Gait: Independent x 300 feet with FWW NOT MET 8. Stairs: Independent on therapeutic stairs x 5 NOT MET 9. Independent with home exercise program NOT MET DISCHARGE RECOMMENDATIONS: [] ? Home with no services [] [X] ? Home with services.? Home when medically cleared by hospitalist.? Patient will benefit from home health PT services in order to progress mobility level using least restrictive assistive ambulatory device, assess home safety, identify additional equipment needs, and establish a functional maintenance program that will increase ability of patient to remain at home. [] ? Home with outpatient PT [] [] ? SNF for continued rehabilitation [] [] ? [facility] [] [] ? SNF versus LTC based on ability to participate and progress [] TREATMENT CODE/TIME: AR Thank you for the opportunity to participate in the care of this patient. Valentine Tavera PT, DPT, CLT [facility] [place], [place]
== END 2023-02-02 15:58 | disposition home health service (06) | DRG 190 ==
LOC: ER 08:10 → MS 14:45
PROVIDERS: Family Medicine; Nurse Practitioner Family; Admitting Provider Internal Medicine; Emergency Provider Physician Assistant; PCP Nurse Practitioner Family; Visit Provider Internal Medicine
DX: J44.1 Chronic obstructive pulmonary disease with (acute) exacerbation (principal); J96.21 Acute and chronic respiratory failure with hypoxia; J96.22 Acute and chronic respiratory failure with hypercapnia; I42.0 Dilated cardiomyopathy; I50.42 Chronic combined systolic (congestive) and diastolic (congestive) heart failure; K56.609 Unspecified intestinal obstruction, unspecified as to partial versus complete obstruction; F17.210 Nicotine dependence, cigarettes, uncomplicated; Z99.81 Dependence on supplemental oxygen; F32.A Depression, unspecified; F19.10 Other psychoactive substance abuse, uncomplicated; F43.10 Post-traumatic stress disorder, unspecified; I44.7 Left bundle-branch block, unspecified; Z95.810 Presence of automatic (implantable) cardiac defibrillator; R07.89 Other chest pain; R79.1 Abnormal coagulation profile; R62.7 Adult failure to thrive; R26.9 Unspecified abnormalities of gait and mobility; Z91.148 Patient's other noncompliance with medication regimen for other reason; E11.9 Type 2 diabetes mellitus without complications; E78.5 Hyperlipidemia, unspecified; F40.01 Agoraphobia with panic disorder; R91.1 Solitary pulmonary nodule; K22.89 Other specified disease of esophagus; R59.1 Generalized enlarged lymph nodes; N28.1 Cyst of kidney, acquired; R13.10 Dysphagia, unspecified; R63.4 Abnormal weight loss; Z68.27 Body mass index [BMI] 27.0-27.9, adult; N40.0 Benign prostatic hyperplasia without lower urinary tract symptoms; G89.4 Chronic pain syndrome
CPT/HCPCS: 36410; 36415; 71275; 74177; 76770; 80048; 80053; 82805; 83690; 84145; 85027; 87040; 87081; 87637; 93005; 94640; 96374; 96375; 97162; 97530; 99222; 99232; 99285; 71045; 74019; 83735; 83880; 84484; 85025; 85379; 87070; 87205; 93010; 94664; 94667; 94668; 94760; 99223; 99233; 99239; J0131; J1644; J2060; J2270; J2405; J2543; J2930; J3490; J7512; J7614; J7644

== ENCOUNTER 2023-02-05 10:28 | Day surgery (SDC) | payer MEDICARE, SELFPAY ==
[2023-02-05 10:50] VITALS: BP 104/72; PULSE 118; RESP 16; TEMP 36.6; O2SAT 93
--- NOTE | 2023-02-05 11:31 | ANES.PREOP_ITS ---
General Info Date of Service Date Performed: 02/05/23 Height: 5 ft 7 in Weight: 81 kg Body Mass Index (BMI): 27.9 Surgical Procedure: Operation Date: 02/05/23 11:35 Proposed Procedure Side Surgeon p Gastroscopy w/Biopsy Michelle Lemus, Meds Allergies and Home Medications Allergies Allergy/AdvReac Type Severity Reaction Status Date / Time No Known Allergies Allergy Unverified 02/04/23 14:53 Home Medication Medication Instructions Recorded pravastatin 20 mg tablet 20 mg PO QHS #10 tabs 03/17/20 pantoprazole 40 mg tablet,delayed 40 mg PO DAILY@0730 #30 tabs 05/01/21 release albuterol sulfate 90 mcg/actuation 2 puff inhalation Q4H WHILE AWAKE 02/05/22 aerosol inhaler (ProAir HFA) PRN nitroglycerin 0.3 mg sublingual 0.3 mg sublingual Q5-15M PRN 02/19/22 tablet acetaminophen 325 mg capsule 325 mg PO DAILY PRN 03/28/22 (Tylenol) budesonide-formoterol HFA 80 2 puff inhalation BID 03/28/22 mcg-4.5 mcg/actuation aerosol inhaler (Symbicort) montelukast 10 mg tablet 10 mg PO DAILY 03/28/22 bupropion HCl 300 mg 24 hr tablet, 300 mg PO DAILY 03/29/22 extended release tamsulosin 0.4 mg capsule 0.4 mg PO HS 03/29/22 naloxone 4 mg/actuation nasal spray 4 mg intranasal Q2M PRN 07/21/22 calcium carbonate 200 mg calcium 200 mg PO Q2H WHILE AWAKE PRN 10/29/22 (500 mg) chewable tablet (Tums) dyspepsia #90 tabs clonazepam 1 mg tablet 1 mg PO BID 10/29/22 gabapentin 300 mg tablet 300 mg PO BID 10/29/22 guaifenesin 100 mg/5 mL oral liquid 200 mg (10 mL) PO Q4H PRN PRN 10/29/22 congestion #1,000 mL ondansetron 4 mg disintegrating 4 mg PO Q8H PRN nausea and 11/20/22 tablet vomiting #14 tabs sennosides 8.6 mg tablet (senna) 8.6 mg PO BID PRN constipation #60 11/20/22 tabs prednisone 10 mg tablet 10 mg PO DAILY #30 tabs 12/02/22 ipratropium 0.5 mg-albuterol 3 mg 3 ml inhalation Q6H PRN PRN 12/07/22 (2.5 mg base)/3 mL nebulization shortness of breath or wheezing soln #180 mL benztropine 1 mg tablet 1 mg PO QHS 01/05/23 famotidine 10 mg tablet 10 mg PO BID PRN 01/05/23 quetiapine 400 mg tablet,extended 400 mg PO HS 01/06/23 release 24 hr (Seroquel XR) quetiapine 50 mg tablet,extended 50 mg PO HS 01/06/23 release 24 hr (Seroquel XR) guaifenesin 600 mg tablet,extended 600 mg PO BID PRN 01/25/23 release morphine 10 mg/5 mL oral solution 7.5 mg (3.75 mL) PO Q3H PRN PRN 02/02/23 pain #0 mL morphine concentrate 100 mg/5 mL 7.5 mg (0.375 mL) PO Q2H PRN PRN 02/02/23 (20 mg/mL) oral solution pain #500 mL prednisone 20 mg tablet 40 mg PO DAILY #5 tabs 02/02/23 quetiapine 50 mg tablet 50 mg PO DAILY #30 tabs 02/02/23 polyethylene glycol 3350 17 gram 17 g PO BID PRN 02/04/23 oral powder packet Current Visit Medications: Current Medications Generic Name Dose Route Start Last Admin Trade Name Freq PRN Reason Stop Dose Admin Hyoscyamine Sulfate 0.125 mg 02/05/23 08:31 Hyoscyamine 0.125 Mg Sl/Oral/Chew SL DIRECTED PRN Ringer's Solution 1,000 mls @ 80 mls/hr 02/05/23 06:00 IV 02/05/23 23:59 INFUSION [facility] IV Miscellaneous Supplies 1 each 02/05/23 06:00 Iv Access IV 02/05/23 23:59 DIRECTED OJ Ondansetron HCl 4 mg 02/05/23 08:31 Ondansetron 4 Mg/2 Ml Vial IVP Q4H PRN PRN Nausea / Vomiting Sodium Chloride 0 ml 02/05/23 06:00 Normal Saline Flush 10 Ml Syr IV 02/05/23 23:59 PRN PRN Sodium Chloride 0 ml 02/05/23 06:00 Normal Saline 10 Ml Vial IJ 02/05/23 23:59 DIRECTED PRN Sterile Water 0 ml 02/05/23 06:00 Water,Injection,Sterile 10 Ml Vial IJ 02/05/23 23:59 DIRECTED PRN PFSH Active Problems Active Problems: Problem Status Onset Code Left kidney mass N28.89 Mass of esophagus K22.89 Mass of upper lobe of right lung R91.8 Mass of gastroesophageal junction K31.89 Lung nodule R91.1 Abdominal pain R10.9 Respiratory failure with hypoxia and hypercapnia J96.91, J96.92 COPD exacerbation J44.1 Unintentional weight loss R63.4 Peripheral neuropathic pain M79.2 Encounter for hospice care discussion Z71.89 Oxygen dependent Z99.81 Nightmares F51.5 Altered mental status R41.82 Altered mental status R41.82 Bullae R23.8 Cognitive impairment R41.89 Ambulatory dysfunction R26.2 Current smoker F17.200 Lung bullae J43.9 Musculoskeletal chest pain R07.89 AMS (altered mental status) R41.82 Lethargy R53.83 Lung disease J98.4 Arthritis M19.90 Noncompliance with medication regimen Z91.14 Depression F32.9 History of alcohol abuse F10.11 UTI (urinary tract infection) N39.0 Polysubstance abuse F19.10 Acute alteration in mental status R41.82 Confusion R41.0 Orthostatic hypotension I95.1 Ambulatory dysfunction R26.2 Altered mental status R41.82 Dehydration E86.0 Left rib fracture S22.32XA Rib fracture S22.39XA Hypotension I95.9 Syncope R55 Severe chronic obstructive pulmonary disease J44.9 Systolic and diastolic CHF, chronic I50.42 Nonischemic dilated cardiomyopathy I42.0 Medical History Medical History Acquired deformity of left hand Agoraphobia Anxiety Anxiety with depression Biventricular implantable cardioverter-defibrillator (ICD) in situ Mode:DDD, Low rate 60bpm, Atrial lead: medtronic 5076, SN: [id number] 09/27/14; RV lead Medtronic 6935M SN: [id number] 09/27/14; LV lead Medtronic 4396, SN; TRACIE [id number] 09/27/14 (updated 5/18/20) BPH (benign prostatic hyperplasia) Cardiomyopathy CHF (congestive heart failure) Chronic pain syndrome Cigarette smoker Constipation COPD (chronic obstructive pulmonary disease) COPD (chronic obstructive pulmonary disease) Cyst Diabetes Diarrhea Discharge planning issues Dizziness DVT prophylaxis Elevated d-dimer Erectile dysfunction Fatigue Hallucination Hand paresthesia Heart disease History of suicidal ideation History of tobacco abuse Hyperlipidemia Impacted ear wax LBBB (left bundle branch block) Metacarpophalangeal joint pain Musculoskeletal chest pain Pacemaker Pain Pain in right hip Panic anxiety syndrome Personal history of nicotine dependence PTSD (post-traumatic stress disorder) Skin lesion Tobacco use Surgical History Surgical History AICD (automatic cardioverter/defibrillator) present Status post biventricular pacemaker Tobacco Smoking/Tobacco Use Status: Former Tobacco Use Alcohol Alcohol Intake: former Substance Use Substance use: Never Substance use type: does not use Vital Signs and Lab Results Vital Signs Most Recent Vital Signs in EMR: Most Recent Vital Signs Temp Pulse Resp BP Pulse Ox 36.6 C 118 H 16 104/72 93 02/05/23 10:50 02/05/23 10:50 02/05/23 10:50 02/05/23 10:50 02/05/23 10:50 Lab Results Blood Type / Crossmatch: No Data to Display Complete Blood Count: White Blood Count 8.06 10^3/uL (4.4-10.8) 02/02/23 06:05 Red Blood Count 5.10 10^6/uL (4.36-5.78) 02/02/23 06:05 Hemoglobin 15.1 g/dL (13.5-17.5) 02/02/23 06:05 Hematocrit 45.7 % (40.0-50.0) 02/02/23 06:05 Platelet Count 169 10^3/uL (130-400) 02/02/23 06:05 Complete Metabolic Panel: Sodium 141 mmol/L (136-145) 02/02/23 06:05 Potassium 3.7 mmol/L (3.5-5.1) 02/02/23 06:05 Chloride 103 mmol/L (98-107) 02/02/23 06:05 Carbon Dioxide 31.7 mmol/L (21.0-32.0) 02/02/23 06:05 BUN 11 mg/dL (7-18) 02/02/23 06:05 Creatinine 0.8 mg/dL (0.70-1.30) 02/02/23 06:05 Est GFR (CKD-EPI 2020) 101.95 (mL/min/1.73m2) 02/02/23 06:05 Magnesium 2.1 mg/dL (1.8-2.4) 02/02/23 06:05 Calcium 9.4 mg/dL (8.5-10.1) 02/02/23 06:05 Albumin 3.7 g/dL (3.4-5.0) 01/25/23 08:20 Glucose 145 mg/dL (74-106) H 02/02/23 06:05 Liver Function Panel: Alanine Aminotransferase (ALT/SGPT) 33 U/L (16-63) 01/25/23 08: 20 Aspartate Amino Transf (AST/SGOT) 20 U/L (15-37) 01/25/23 08:20 Coagulation Panel: D-Dimer 1001 ng/mlFEU (<500) H 01/25/23 08:20 Cardiac Panel: Troponin I < 50 ng/L (<or=60) 01/25/23 NT-Pro-B Natriuret Pep 523 pg/mL (<300) H 01/25/23 Arterial Blood Gas: No Data to Display Venous Blood Gas: Venous Blood pH 7.39 (7.31-7.41) 01/25/23 08:47 Venous Blood Partial Pressure O2 47 mmHg 01/25/23 08:47 Venous Blood Partial Pressure CO2 54 mmHg (41-51) H 01/25/23 08 :47 Venous Blood Oxygen Saturation 84 % 01/25/23 08:47 Venous Blood HCO3 33 mmol/L (23-28) H 01/25/23 08:47 Venous Blood Base Excess 8 mmol/L (-2-3) H 01/25/23 08:47 Venous Blood Total Carbon Dioxide 28 mmol/L (24-29) 01/25/23 08 :47 Pancreas Panel: Lipase 21 U/L (16-77) 01/25/23 08:47 Thyroid Panel: No Data to Display Infectious Disease: Coronavirus (COVID-19)(PCR) Negative (Negative) 01/25/23 08:47 Coronavirus 2019 Source Nasopharynx 01/25/23 08:47 Influenza Virus Type A (PCR) Negative (Negative) 01/25/23 08:4 7 Influenza Virus Type B (PCR) Negative (Negative) 01/25/23 08:4 7 Respiratory Syncytial Virus (PCR) Negative (Negative) 01/25/23 08:47 Blood Cultures: No Data to Display Toxicology Panel: No Data to Display Imaging and Studies Imaging and Studies Study information below may be from another EMR and interpreted by another provider. Please see original notes in EMR for more complete details. EKG Summary: Conclusion Atrial-sensed ventricular-paced rhythm...ventricular pacing tracks p-waves No further analysis attempted due to paced rhythm 01/29/23 Stress Test Summary: CONCLUSION: No significant ischemia. Severe cardiomyopathy. 03/21/14 Echocardiogram Summary: Conclusion Technically suboptimal Left ventricle is grossly normal in size. Systolic function is mildly reduced. EF is 50 to 55%. No segmental wall motion abnormalities are noted. Septal motion is paradoxic Right ventricle is normal in size and systolic function Both atria are normal in size Device lead noted in the right heart There is no significant valvular disease 01/07/23 Anesthesia Assessment and Plan Anesthesia History Personal History: No History of General Anesthesia Family History: Family History Unknown Exercise Tolerance Exercise Tolerance: Metabolic Equivalents<4 Pertinent Negatives Pertinent Negatives: No Major Cardiovascular Symptoms or Complaints Cardiac & Pulmonary Exam Cardiac Exam: Normal S1/S2 Heart Sounds Pulmonary Exam: Wheezing Present (insp and exp throughout) Implantable Cardiac Device Does patient have a Pacemaker or an ICD?: Yes Device Industrial Ecologist:: GaBoom 4396, SN; TRACIE [id number] 09/27/14 Reason for Placement:: Arrhythmia Date of Last Device Interrogation:: 2021 Airway Exam Known Difficult Airway: No Mallampati Class: 2 Mouth Opening: Normal (> 3cm) Thyromental Distance: Greater than 3 cm Neck Range of Motion: Full ROM Neck Circumference: Normal Teeth Condition: Generalized Poor Dentition (none loose per pt) ASA Classification ASA Score: ASA 4 Emergency Case?: No NPO Status NPO Status: NPO Clears >2 hours, Solids >8 hours Anesthesia Plan Resuscitation Status: Full Code Anesthesia Technique: General Anesthesia Airway Planned: Natural Airway Monitors Used: Standard Monitors
[2023-02-05] MEDS: Lactated Ringers 1,000 ML 80 ML IV (11:34)
--- NOTE | 2023-02-05 12:12 | W.PM.HP.N ---
Date of service: 02/05/23 Time of Service: 12:12 Assessment and Plan Assessment and plan (1) Mass of gastroesophageal junction: Status: Acute Assessment and plan: Informed consent is obtained for the procedural (explained in simple layman's terms that the pt. and/or family could understand) explaining risks vs benefits and alternatives to the procedure and consequences if we do not do the procedure and need/rational for the procedure. Risks include but are not limited to: bleeding, infection, perforation of esophagus, stomach, colon. This would necessitate emergency surgery to repair the damage w/ possible ostomy; and other associated complications w/ the required surgery. Also complications of anesthesia including aspiration, NM/CVA/. Patient is high risk but acceptable for NVR H because of his chronic risk of oxygen dependent COPD. I have discussed the case with pulmonary and with anesthesia and I have coordinated a surgical and anesthetic plan.. Patient is stable for procedure today. (2) Left kidney mass: Status: Acute (3) Mass of esophagus: Status: Acute (4) Lung nodule: Status: Acute (5) Oxygen dependent: Status: Acute (6) Bullae: Status: Acute (7) Severe chronic obstructive pulmonary disease: Status: Chronic (8) Systolic and diastolic CHF, chronic: Status: Chronic (9) Nonischemic dilated cardiomyopathy: Status: Chronic (10) Cardiomyopathy: (11) CHF (congestive heart failure): (12) BPH (benign prostatic hyperplasia): (13) Biventricular implantable cardioverter-defibrillator (ICD) in situ: History of Present Illness Narrative: Patient was recently hospitalized with a COPD exacerbation. He had a CT of the chest done which did show a mass at the GE junction. Patient has noted difficulty swallowing and weight loss. He does have a history of smoking. He does have an extensive history of COPD and is on 3 L of O2 at baseline. He still continues to smoke. The patient states his respiratory status is back to baseline. He is finishing a burst course prednisone. No worsening of his cough. He is not coughing up any green or yellow sputum. He is not coughing up any blood. He has no abdominal pain Review of Systems All systems reviewed & are unremarkable except as noted in HPI and below PFSH All Active Problems Left kidney mass (Acute) superior pole US ordered 01/26/23 Mass of esophagus (Acute) by CT Mass of upper lobe of right lung (Acute) by CT Mass of gastroesophageal junction (Acute) Lung nodule (Acute) Abdominal pain (Acute) pt state he has stopped smoking Respiratory failure with hypoxia and hypercapnia (Chronic) COPD exacerbation (Acute) Unintentional weight loss (Acute) Peripheral neuropathic pain (Acute) Encounter for hospice care discussion (Acute) Oxygen dependent (Acute) Nightmares (Acute) Altered mental status (Acute) Bullae (Acute) Cognitive impairment (Chronic) Ambulatory dysfunction (Chronic) Current smoker (Acute) Lung bullae (Acute) Musculoskeletal chest pain (Chronic) Lethargy (Acute) Lung disease (Acute) Arthritis (Acute) Noncompliance with medication regimen (Acute) Depression (Chronic) UTI (urinary tract infection) (Acute) Polysubstance abuse (Chronic) Confusion (Acute) Orthostatic hypotension (Acute) Ambulatory dysfunction (Acute) Left rib fracture (Acute) Rib fracture (Acute) Syncope (Chronic) Severe chronic obstructive pulmonary disease (Chronic) Systolic and diastolic CHF, chronic (Chronic) Nonischemic dilated cardiomyopathy (Chronic) Medical History Acquired deformity of left hand Agoraphobia Anxiety Anxiety with depression Biventricular implantable cardioverter-defibrillator (ICD) in situ Mode:DDD, Low rate 60bpm, Atrial lead: medtronic 5076, SN: [id number] 09/27/14; RV lead Medtronic 6935M SN: [id number] 09/27/14; LV lead Medtronic 4396, SN; [id number] 09/27/14 (updated 03/11/20) BPH (benign prostatic hyperplasia) Cardiomyopathy CHF (congestive heart failure) Chronic pain syndrome Cigarette smoker Constipation COPD (chronic obstructive pulmonary disease) COPD (chronic obstructive pulmonary disease) Cyst Diabetes Diarrhea Discharge planning issues Dizziness DVT prophylaxis Elevated d-dimer Erectile dysfunction Fatigue Hallucination Hand paresthesia Heart disease History of suicidal ideation History of tobacco abuse Hyperlipidemia Impacted ear wax LBBB (left bundle branch block) Metacarpophalangeal joint pain Musculoskeletal chest pain Pacemaker Pain Pain in right hip Panic anxiety syndrome Personal history of nicotine dependence PTSD (post-traumatic stress disorder) Skin lesion Tobacco use Surgical History AICD (automatic cardioverter/defibrillator) present Status post biventricular pacemaker Family History Mother , 2008 COPD (chronic obstructive pulmonary disease) Social History Smoking/Tobacco Use Status: Former Tobacco Use Quit Date: 03/08/22 Pack-years: 120 Smoking risk assessment performed?: Yes Alcohol Intake: former Drug use: Never Substance use type: does not use Household members: none Pets and animals: No What type of physical activity do you participate in: none Seatbelt use: always Do you feel safe at home: Yes Additional Social history: live alone Meds Allergies and Home Medications Allergies Allergy/AdvReac Type Severity Reaction Status Date / Time No Known Allergies Allergy Unverified 02/04/23 14:53 Home Medications Medication Instructions Recorded Confirmed Type pravastatin 20 mg tablet 20 mg PO QHS #10 tabs 03/17/20 02/05/23 Rx pantoprazole 40 mg tablet,delayed 40 mg PO DAILY@0730 #30 tabs 05/01/21 02/05/23 Rx release albuterol sulfate 90 mcg/actuation 2 puff inhalation Q4H WHILE AWAKE 02/05/22 02/05/23 History aerosol inhaler (ProAir HFA) PRN nitroglycerin 0.3 mg sublingual 0.3 mg sublingual Q5-15M PRN 02/19/22 02/05/23 History tablet acetaminophen 325 mg capsule 325 mg PO DAILY PRN 03/28/22 02/05/23 History (Tylenol) budesonide-formoterol HFA 80 2 puff inhalation BID 03/28/22 02/05/23 History mcg-4.5 mcg/actuation aerosol inhaler (Symbicort) montelukast 10 mg tablet 10 mg PO DAILY 03/28/22 02/05/23 History bupropion HCl 300 mg 24 hr tablet, 300 mg PO DAILY 03/29/22 02/05/23 History extended release tamsulosin 0.4 mg capsule 0.4 mg PO HS 03/29/22 02/05/23 History naloxone 4 mg/actuation nasal spray 4 mg intranasal Q2M PRN 07/21/22 02/05/23 History calcium carbonate 200 mg calcium 200 mg PO Q2H WHILE AWAKE PRN 10/29/22 02/05/23 Rx (500 mg) chewable tablet (Tums) dyspepsia #90 tabs clonazepam 1 mg tablet 1 mg PO BID 10/29/22 02/05/23 History gabapentin 300 mg tablet 300 mg PO BID 10/29/22 02/05/23 History guaifenesin 100 mg/5 mL oral liquid 200 mg (10 mL) PO Q4H PRN PRN 10/29/22 02/04/23 Rx congestion #1,000 mL ondansetron 4 mg disintegrating 4 mg PO Q8H PRN nausea and 11/20/22 02/05/23 Rx tablet vomiting #14 tabs sennosides 8.6 mg tablet (senna) 8.6 mg PO BID PRN constipation #60 11/20/22 02/05/23 Rx tabs prednisone 10 mg tablet 10 mg PO DAILY #30 tabs 12/02/22 02/05/23 Rx ipratropium 0.5 mg-albuterol 3 mg 3 ml inhalation Q6H PRN PRN 12/07/22 02/05/23 Rx (2.5 mg base)/3 mL nebulization shortness of breath or wheezing soln #180 mL benztropine 1 mg tablet 1 mg PO QHS 01/05/23 02/05/23 History famotidine 10 mg tablet 10 mg PO BID PRN 01/05/23 01/25/23 History quetiapine 400 mg tablet,extended 400 mg PO HS 01/06/23 02/05/23 History release 24 hr (Seroquel XR) quetiapine 50 mg tablet,extended 50 mg PO HS 01/06/23 02/05/23 History release 24 hr (Seroquel XR) guaifenesin 600 mg tablet,extended 600 mg PO BID PRN 01/25/23 02/04/23 History release morphine 10 mg/5 mL oral solution 7.5 mg (3.75 mL) PO Q3H PRN PRN 02/02/23 02/05/23 Rx pain #0 mL morphine concentrate 100 mg/5 mL 7.5 mg (0.375 mL) PO Q2H PRN PRN 02/02/23 02/05/23 Rx (20 mg/mL) oral solution pain #500 mL prednisone 20 mg tablet 40 mg PO DAILY #5 tabs 02/02/23 02/05/23 Rx quetiapine 50 mg tablet 50 mg PO DAILY #30 tabs 02/02/23 02/05/23 Rx polyethylene glycol 3350 17 gram 17 g PO BID PRN 02/04/23 02/05/23 History oral powder packet Exam Const General: cooperative and comfortable Nutritional Appearance: average body habitus Orientation: alert, awake and oriented x3 Other: PHYSICAL EXAM GENERAL APPEARANCE: Alert, healthy appearance, oriented, x 3,? in no acute distress HYDRATION: Well hydrated HEAD, EYES, EARS, NECK, THROAT: Head is normocephalic, pupils equal, round, reactive to light and accommodation, ocular movement intact, sclera clear and no jaundice. ?Dentition-poor NECK: no lymphadenopathy.? Trachea midline.? Neck supple.? No JVD LUNGS: normal respiration/normal chest excursion. ?Inspiratory and expiratory wheeze ?HEART: Regular rate and rhythm. no murmurs EXTREMITY: No edema or cyanosis.? no leg pain, redness, swelling.? ABDOMEN: soft and non-tender to palpation.? Normal bowel sounds.? Results Last Vital Signs Temp 36.6 C 02/05/23 10:50 Pulse 118 H 02/05/23 10:50 Resp 16 02/05/23 10:50 BP 104/72 02/05/23 10:50 Pulse Ox 93 02/05/23 10:50 Time Spent Time spent with Patient: <40 minutes Time was spent: preparing to see the patient(eg.review tests), obtaining and/or reviewing separately otained hiistory, ordering medications,tests, procedures, referring, communicating with other health critical care physician assistant, indepentently interpreting results, counseling the patient and care coordination
[2023-02-05 12:24] VITALS: BMI 27.9
--- NOTE | 2023-02-05 12:35 | ESO_PTH ---
PATIENT: William Gay LOC: [facility] U#:[id number] AGE/SX: 57/M ROOM: RE02/05/[address]: Michelle Lemus : 1965 BED: DIS: 02/05/2023 SPEC #: [id number] RECD: 02/05/23 13:02 STATUS: [place] REVladimir #: [id number] EILEEN: 02/05/23 12:[address]: Michelle Lemus DEPT: Surgical Specimen RECD BY: Dominga Gustafson ENTERED: 02/05/23 13:03 SP TYPE: Eso OTHR DR: Lorrie Crespo Tissues: 1 - ESOPHAGUS BIOPSY Procedures: GROSS AND MICRO LEVEL 4 Comments: [id number] (PLEASE LU)
[2023-02-05 12:45] VITALS: BP 108/83; PULSE 100; RESP 16; TEMP 37; O2SAT 96
[2023-02-05 13:20] VITALS: BP 113/69; PULSE 103; RESP 20; TEMP 37.1; O2SAT 94
--- NOTE | 2023-02-05 13:57 | W.ANESPOSTOP ---
Postoperative Evaluation Date, Time and Location Date Performed: 02/05/23 Time Performed: 13:50 Patient Location: Day [facility] Unit Vital Signs Most Recent Imported Vital Signs: Most Recent Vital Signs Temp Pulse Resp BP Pulse Ox 37.1 C 103 H 20 113/69 94 02/05/23 13:20 02/05/23 13:20 02/05/23 13:20 02/05/23 13:20 02/05/23 13:20 Pain Score Most Recent Pain Score: Most Recent Pain Score Pain Level 0 02/05/23 12:45 Assessment Mental Status: Awake (Alert & Oriented to Patient Baseline) Airway and Respiratory Function: Patent airway with normal (patient baseline) respiratory exam Cardiovascular Function: Hemodynamically Stable Hydration Status: Adequately Hydrated Nausea & Vomiting: No Nausea or Vomiting Pain: Pt. Denies Any Pain Peripheral Nerve Block: Patient did not receive a nerve block
--- NOTE | 2023-02-05 14:04 | W.PM.DSUDISC ---
Date of service: 02/05/23 Time of Service: 14:11 Discharge Plan Disposition Patient Disposition: Home Condition: Fair Discharge Details Attending Provider: Michelle Lemus Primary Care Provider: Lorrie Crespo Meds and New Rx's Prescriptions: No Action naloxone 4 mg/actuation spray,non-aerosol 4 mg intranasal Q2M PRN Rx Instructions: spray 1 dose into ONE nostril; alternate nostrils w each dose until help arrives ondansetron 4 mg tablet,disintegrating 4 mg PO Q8H PRN (Reason: nausea and vomiting) Qty: 14 0RF Patient Comments: not on med list sennosides [senna] 8.6 mg tablet 8.6 mg PO BID PRN (Reason: constipation) Qty: 60 5RF Patient Comments: not on med list prednisone 10 mg tablet 10 mg PO DAILY Qty: 30 2RF clonazepam 1 mg tablet 1 mg PO BID guaifenesin 100 mg/5 mL liquid 200 mg PO Q4H PRN PRN (Reason: congestion) Qty: 1000 1RF Patient Comments: not on med list calcium carbonate [Tums] 200 mg calcium (500 mg) tablet,chewable 200 mg PO Q2H WHILE AWAKE PRN (Reason: dyspepsia) Qty: 90 1RF Patient Comments: not on med list gabapentin 300 mg tablet 300 mg PO BID ipratropium-albuterol 0.5 mg-3 mg(2.5 mg base)/3 mL solution for nebulization 3 ml INHALATION Q6H PRN PRN (Reason: shortness of breath or wheezing) Qty: 180 3RF morphine concentrate 100 mg/5 mL (20 mg/mL) solution 7.5 mg PO Q2H PRN MDD 800mg PRN (Reason: pain) Qty: 500 0RF Rx Instructions: for air hunger pravastatin 20 mg tablet 20 mg PO QHS Qty: 10 0RF pantoprazole 40 mg Tablet,Delayed Release (Dr/Ec) 40 mg PO DAILY@0730 Qty: 30 0RF montelukast 10 mg Tablet 10 mg PO DAILY acetaminophen [Tylenol] 325 mg Capsule 325 mg PO DAILY PRN budesonide-formoterol [Symbicort] 80-4.5 mcg/actuation Hfa Aerosol Inhaler 2 puff INHALATION BID Patient Comments: not on med list bupropion HCl 300 mg tablet extended release 24 hr 300 mg PO DAILY Patient Comments: Take 1 tablet by mouth once a day tamsulosin 0.4 mg capsule 0.4 mg PO HS Patient Comments: 1 tab daily guaifenesin 600 mg Tablet Extended Release 600 mg PO BID PRN prednisone 20 mg Tablet 40 mg PO DAILY Qty: 5 0RF morphine 10 mg/5 mL Solution 7.5 mg PO Q3H PRN PRN (Reason: pain) Qty: 0 0RF quetiapine 50 mg tablet 50 mg PO DAILY Qty: 30 0RF polyethylene glycol 3350 17 gram powder in packet 17 g PO BID PRN albuterol sulfate [ProAir HFA] 90 mcg/actuation Hfa Aerosol Inhaler 2 puff INHALATION Q4H WHILE AWAKE PRN Rx Instructions: Q4-6H PRN nitroglycerin 0.3 mg Tablet, Sublingual 0.3 mg SUBLINGUAL Q5-15M PRN Rx Instructions: do not exceed 3 doses per episode famotidine 10 mg Tablet 10 mg PO BID PRN benztropine 1 mg Tablet 1 mg PO QHS Patient Comments: not on med list quetiapine [Seroquel XR] 400 mg tablet extended release 24 hr 400 mg PO HS Rx Instructions: total dose 450 mg quetiapine [Seroquel XR] 50 mg tablet extended release 24 hr 50 mg PO HS Patient Comments: not on med list Rx Instructions: total dose 450 mg Discharge Instructions Additional Instructions: Post EGD Instruction ?You had anesthesia for your EGD/stomach scope today.? For your safety, please do the following for the next twenty-four (24) hours: Do Not operate a motor vehicle (car, truck, motorcycle, etc.) Do Not drink alcoholic beverages or use any recreational drugs for the first 24 hours or while taking pain medications. The medications in your body may have a reaction that can be dangerous. Do Not make any important decisions or sign any important papers You have just had a gastroscopy (EGD) or upper GI tract examination. It is important for your smooth recovery that you carefully follow the recommendations below. Do not hesitate to call if any questions should arise about your anesthesia, condition, or care. -Symptoms you may experience during the next 24 hours: ?1. Mild abdominal pain or excessive gas or a bloated feeling which improves with rest, liquids, eating? slightly, and walking as tolerated. 2. Drowsiness and/or forgetfulness because of the medications you were given. ?3. Throat numbness for about 1 hour. 4. A sore throat which you can treat with throat lozenges or by gargling with salt water 4-5 times a day. 5. Redness at the site of your IV which you can treat with warm compresses. SPECIAL INSTRUCTIONS: 1. You may resume your previous diet in one hour. We recommend a light meal to start, then progress as tolerated. 2. Restart regular medications in one hour. 3. No aspirin or non-steroidal containing medication for three days. 4. No lifting over 20 pounds or strenuous activity for the first 24 hours after your procedure. After 24 hours there are no restrictions on your activity, but you may feel fatigued for a few days. Eat_ soft diet. Ensure/Boost/[place] Instant Breakfast 2-3 per day avoid breads and meats Follow up: 02/11 @ 11:30am Call the office at [phone] (Office) or [phone] (Hospital), or go to the ER right away if you notice any of the followin. Vomiting blood and /or ?coffee ground? material. ?2. Worsening of abdominal pain or cramping. ?3. Trouble with breathing, cough, and/or fever (temperature above 101.5 F). 4. Increasing pain with swallowing. ?5. Chest pain. 6. Any new symptoms. 7. Worsening of the redness at the IV site Stand Alone Forms: Anesthesia Discharge InstEduarda, Duy Ovalle (DSU) Discharge Orders Discharge Orders: Discharge Order (Routine); Ordered 02/05/23 Ordered By: Michelle Lemus DS: Diagnosis Discharge Diagnosis (1) Mass of gastroesophageal junction: Status: Acute (2) Left kidney mass: Status: Acute (3) Mass of esophagus: Status: Acute (4) Lung nodule: Status: Acute (5) Oxygen dependent: Status: Acute (6) Bullae: Status: Acute (7) Severe chronic obstructive pulmonary disease: Status: Chronic (8) Systolic and diastolic CHF, chronic: Status: Chronic (9) Nonischemic dilated cardiomyopathy: Status: Chronic (10) Cardiomyopathy: (11) CHF (congestive heart failure): (12) BPH (benign prostatic hyperplasia): (13) Biventricular implantable cardioverter-defibrillator (ICD) in situ:
--- NOTE | 2023-02-05 22:22 | W.PM.ENDDOP ---
Date of service: 02/05/23 Time of Service: 14:00 Endoscopy Report DATE OF PROCEDURE: 02/05/23 PRE-OP DIAGNOSIS: dysphagia/wt loss/mass on CT POST-OP DIAGNOSIS: other (Esophageal cancer) SURGEON: Michelle Lemus ANESTHESIA TYPE: General:No Airway ESTIMATED BLOOD LOSS: 2 PATHOLOGY: other COMPLICATIONS: None DISPOSITION: same day PROCEDURE DESCRIPTION: After informed consent was obtained the patient was take to the procedure room and placed in a supine position. Monitors were applied and a time out was done. The patients name, date of , procedure type, allergies to medications and metal in their body was reviewed. A bite block was placed and the patient was sedated. Once sedated and comfortable the gastroscope was advanced through the oropharynx which was grossly normal into the esophagus. The proximal and mid-esophagus were nl. In the distal esophagus there is a mass noted at 38 cm. It is large and bulky and very friable. Multiple biopsies are taken, no excessive bleeding is noted. I am unable to maneuver the scope past this lesion. The scope was removed and the patient was woken up and taken back to [facility] in stable condition. I did discuss the findings of the EGD with the patient today. Most likely this represents a neoplasm, biopsies are pending. Unfortunately this lesion is obstructing and patient will soon developed difficulty swallowing even water. The patient is not a candidate for chemo or radiation. He is not interested in doing this. He is interested in consideration of a percutaneous feeding tube with IR done at [facility] for palliation. Follow up: 1 week's time to discuss care
== END 2023-02-05 15:15 | disposition home or self-care (01) ==
PROVIDERS: PCP Nurse Practitioner Family; Visit Provider Surgery
PROC: 0DJ68ZZ Inspection of Stomach, Via Natural or Artificial Opening Endoscopic (ICD-10-PCS; CPT 43235; principal; 2023-02-05 11:30)
DX: C15.5 Malignant neoplasm of lower third of esophagus (principal); N28.89 Other specified disorders of kidney and ureter; I50.42 Chronic combined systolic (congestive) and diastolic (congestive) heart failure; R91.1 Solitary pulmonary nodule; Z99.81 Dependence on supplemental oxygen; Z95.810 Presence of automatic (implantable) cardiac defibrillator; R63.4 Abnormal weight loss
CPT/HCPCS: 43202; 88305; J2704

== ENCOUNTER 2023-02-17 05:16 | Inpatient (IN) | payer MEDICARE, SELFPAY ==
[2023-02-17] VITALS (133 sets, daily range): BP systolic 94–158; BP diastolic 64–87; PULSE 55–127; RESP 4–29; TEMP 36.1–37.3; O2SAT 88–99
--- NOTE | 2023-02-17 05:00 | RT.EKG_ITS ---
APPROVED REPORT Exam: Resting ECG Reason for Exam: sob Patient Location: E HR:105 bpm ECG Measurements Heart Rate 105 AXIS CA 130 P 77 QRSd 125 QRS 251 QT 370 T 40 QTc 491 Conclusion Atrial-sensed ventricular-paced rhythm...ventricular pacing tracks p-waves Biventricular paced rhythm...non-simultaneous bi-vent pacing PHysician: no stemi, good capture, negative for sgarbossa
--- NOTE | 2023-02-17 05:15 | DI.RAD_ITS ---
Exam(s) XR PORTABLE CHEST AP EXAM: XR PORTABLE CHEST AP CLINICAL HISTORY: sob, hypoxic TECHNIQUE: 2D digital imaging was performed. COMPARISON: CT CT CHEST PE ABD PELVIS W from 01/25/2023 CR XR PORTABLE CHEST AP from 01/25/2023 FINDINGS: Ovoid object overlying upper midline chest. Monitoring leads noted. LUNGS: Emphysematous changes in the upper lobes. Otherwise clear. No pleural abnormality seen. HEART: Normal size. Pacemaker unchanged. AORTA: Normal diameter. BONES: Unremarkable for age. Soft tissues: Unremarkable. IMPRESSION: No acute findings. DATA REPOSITORY: RADIATION DOSE DELIVERED:
--- NOTE | 2023-02-17 05:18 | W.ED.GENAD ---
Discharge Plan Discharge Details Chief Complaint: Chest Pain Clinical Impression: COPD exacerbation Primary Care Provider: Lorrie Crespo ED Provider: Ronal Recinos Home Meds and New Rx's Prescriptions: No Action naloxone 4 mg/actuation spray,non-aerosol 4 mg intranasal Q2M PRN Rx Instructions: spray 1 dose into ONE nostril; alternate nostrils w each dose until help arrives sennosides [senna] 8.6 mg tablet 8.6 mg PO BID PRN (Reason: constipation) Qty: 60 5RF Patient Comments: not on med list prednisone 10 mg tablet 10 mg PO DAILY Qty: 30 2RF clonazepam 1 mg tablet 1 mg PO BID guaifenesin 100 mg/5 mL liquid 200 mg PO Q4H PRN PRN (Reason: congestion) Qty: 1000 1RF Patient Comments: not on med list calcium carbonate [Tums] 200 mg calcium (500 mg) tablet,chewable 200 mg PO Q2H WHILE AWAKE PRN (Reason: dyspepsia) Qty: 90 1RF Patient Comments: not on med list gabapentin 300 mg tablet 300 mg PO BID fentanyl 25 mcg/hr patch 72 hour 1 patch transdermal Q72H MDD 25mcg/hr Qty: 10 0RF morphine concentrate 100 mg/5 mL (20 mg/mL) solution 10 mg PO Q2H PRN MDD 800mg PRN (Reason: pain) Qty: 500 0RF Rx Instructions: for air hunger ipratropium-albuterol 0.5 mg-3 mg(2.5 mg base)/3 mL solution for nebulization 3 ml INHALATION Q6H PRN PRN (Reason: shortness of breath or wheezing) Qty: 180 3RF ondansetron 4 mg tablet,disintegrating 4 mg PO BID Qty: 30 4RF Patient Comments: not on med list pravastatin 20 mg tablet 20 mg PO QHS Qty: 10 0RF pantoprazole 40 mg Tablet,Delayed Release (Dr/Ec) 40 mg PO DAILY@0730 Qty: 30 0RF montelukast 10 mg Tablet 10 mg PO DAILY acetaminophen [Tylenol] 325 mg Capsule 325 mg PO DAILY PRN budesonide-formoterol [Symbicort] 80-4.5 mcg/actuation Hfa Aerosol Inhaler 2 puff INHALATION BID Patient Comments: not on med list bupropion HCl 300 mg tablet extended release 24 hr 300 mg PO DAILY Patient Comments: Take 1 tablet by mouth once a day tamsulosin 0.4 mg capsule 0.4 mg PO HS Patient Comments: 1 tab daily guaifenesin 600 mg Tablet Extended Release 600 mg PO BID PRN prednisone 20 mg Tablet 40 mg PO DAILY Qty: 5 0RF morphine 10 mg/5 mL Solution 7.5 mg PO Q3H PRN PRN (Reason: pain) Qty: 0 0RF quetiapine 50 mg tablet 50 mg PO DAILY Qty: 30 0RF polyethylene glycol 3350 17 gram powder in packet 17 g PO BID PRN albuterol sulfate [ProAir HFA] 90 mcg/actuation Hfa Aerosol Inhaler 2 puff INHALATION Q4H WHILE AWAKE PRN Rx Instructions: Q4-6H PRN nitroglycerin 0.3 mg Tablet, Sublingual 0.3 mg SUBLINGUAL Q5-15M PRN Rx Instructions: do not exceed 3 doses per episode famotidine 10 mg Tablet 10 mg PO BID PRN benztropine 1 mg Tablet 1 mg PO QHS Patient Comments: not on med list quetiapine [Seroquel XR] 400 mg tablet extended release 24 hr 400 mg PO HS Rx Instructions: total dose 450 mg quetiapine [Seroquel XR] 50 mg tablet extended release 24 hr 50 mg PO HS Patient Comments: not on med list Rx Instructions: total dose 450 mg buprenorphine 7.5 mcg/hour patch weekly 7.5 patch transdermal Medical Decision Making This is a 57-year-old male with a past medical history of COPD, normally on 3-4 L of oxygen by nasal cannula, congestive heart failure, AICD, nonischemic cardiomyopathy, PTSD, esophageal mass who is a palliative care patient who was recently admitted 2 weeks ago, and had recent biopsy by surgery performed just over a week ago for the esophageal mass, presents today for acute respiratory failure. Patient does not give much in the way of history, but states that this evening he felt short of breath. He called 911 but was in agonal respirations and the line went mid call. When EMS arrived the patient was tripoding, saturating in the low 60s, and unable to breathe. Patient was given maximal medical therapy in the field and was started on BiPAP, given IV magnesium, subcu epinephrine, albuterol and DuoNeb treatments, and 125 of Solu-Medrol. By the time the patient arrived in the ED he was saturating at 95% on BiPAP. He was tolerating his symptoms well, and was feeling much better. Patient admits to some mild chest tightness. He denies any other complaints. He states that his defibrillator did not go off. No other complaints at this time. No other modifying factors. Exam demonstrates diminished breath sounds throughout, he is on BiPAP currently 14/6. Oxygenation is stable. We will evaluate for evidence of pneumonia. We will interrogate his pacemaker, monitor closely and reassess. Suspect that his symptoms are a reflection of a COPD exacerbation at this point. 7 AM Laboratory work-up has returned, he demonstrates mild elevation in his WBC count, no bandemia. VBG demonstrates pH 7.28, PCO2 of 74. Suspect a mild acute component to his respiratory acidosis. Electrolytes normal. Initial troponin normal. EKG stable. proBNP relatively benign at 317. COVID flu and RSV are negative. Chest x-ray shows evidence of COPD. Patient was transitioned off of BiPAP, and he has been on 4 L via nasal cannula for the last 30 minutes and he has been doing very well, saturations remain around 91%. The patient is certainly seem to have stabilized. Patient's pacemaker defibrillator was interrogated, no acute events were noted. We will continue to monitor the patient. I do feel that the repeat troponin is certainly reasonable to make sure that this was not an acute cardiac episode that precipitated his respiratory component. If the patient remains stable, and is able to ambulate without becoming hypoxemic, I do feel that he may be a candidate for potential home discharge. However if the patient does have a decline awaiting for the repeat troponin, then he would potentially benefit from admission. We will continue to monitor closely and reassess. Patient will be signed out to my colleague for follow-up on repeat troponin. FINDINGS: Tubes, catheters and devices: There is a triple lead left chest AICD in place. Lungs: The lungs are hyperinflated. Upper lobe emphysematous changes are noted. Otherwise, the lungs are clear bilaterally. There is no consolidation, infiltrate, or pulmonary edema. The pulmonary vasculature is normal in caliber. Pleural spaces: Unremarkable. No pleural effusion or pneumothorax. Heart/Mediastinum: Heart size is normal. Cardiomediastinal contours are stable and satisfactory. Bones/joints: Unremarkable. IMPRESSION: Findings consistent with emphysema and chronic obstructive pulmonary disease. No new/acute abnormality. Thank you for allowing us to participate in the care of your patient. HPI General Date/Time Provider Initiated Documentation: 02/17/23 05:28. HPI Narrative: This is a 57-year-old male with a past medical history of COPD, normally on 3-4 L of oxygen by nasal cannula, congestive heart failure, AICD, nonischemic cardiomyopathy, PTSD, esophageal mass who is a palliative care patient who was recently admitted 2 weeks ago, and had recent biopsy by surgery performed just over a week ago for the esophageal mass, presents today for acute respiratory failure. Patient does not give much in the way of history, but states that this evening he felt short of breath. He called 911 but was in agonal respirations and the line went mid call. When EMS arrived the patient was tripoding, saturating in the low 60s, and unable to breathe. Patient was given maximal medical therapy in the field and was started on BiPAP, given IV magnesium, subcu epinephrine, albuterol and DuoNeb treatments, and 125 of Solu-Medrol. By the time the patient arrived in the ED he was saturating at 95% on BiPAP. He was tolerating his symptoms well, and was feeling much better. Patient admits to some mild chest tightness. He denies any other complaints. He states that his defibrillator did not go off. No other complaints at this time. No other modifying factors. Related Data Home Medications Medication Instructions Recorded Confirmed pravastatin 20 mg tablet 20 mg PO QHS #10 tabs 03/17/20 02/17/23 pantoprazole 40 mg tablet,delayed 40 mg PO DAILY@0730 #30 tabs 05/01/21 02/17/23 release albuterol sulfate 90 mcg/actuation 2 puff inhalation Q4H WHILE AWAKE 02/05/22 02/17/23 aerosol inhaler (ProAir HFA) PRN nitroglycerin 0.3 mg sublingual 0.3 mg sublingual Q5-15M PRN 02/19/22 02/17/23 tablet acetaminophen 325 mg capsule 325 mg PO DAILY PRN 03/28/22 02/17/23 (Tylenol) budesonide-formoterol HFA 80 2 puff inhalation BID 03/28/22 02/17/23 mcg-4.5 mcg/actuation aerosol inhaler (Symbicort) montelukast 10 mg tablet 10 mg PO DAILY 03/28/22 02/17/23 bupropion HCl 300 mg 24 hr tablet, 300 mg PO DAILY 03/29/22 02/17/23 extended release tamsulosin 0.4 mg capsule 0.4 mg PO HS 03/29/22 02/17/23 naloxone 4 mg/actuation nasal spray 4 mg intranasal Q2M PRN 07/21/22 02/17/23 calcium carbonate 200 mg calcium 200 mg PO Q2H WHILE AWAKE PRN 10/29/22 02/17/23 (500 mg) chewable tablet (Tums) dyspepsia #90 tabs clonazepam 1 mg tablet 1 mg PO BID 10/29/22 02/17/23 gabapentin 300 mg tablet 300 mg PO BID 10/29/22 02/17/23 guaifenesin 100 mg/5 mL oral liquid 200 mg (10 mL) PO Q4H PRN PRN 10/29/22 02/17/23 congestion #1,000 mL sennosides 8.6 mg tablet (senna) 8.6 mg PO BID PRN constipation #60 11/20/22 02/17/23 tabs prednisone 10 mg tablet 10 mg PO DAILY #30 tabs 12/02/22 02/17/23 ipratropium 0.5 mg-albuterol 3 mg 3 ml inhalation Q6H PRN PRN 12/07/22 02/17/23 (2.5 mg base)/3 mL nebulization shortness of breath or wheezing soln #180 mL benztropine 1 mg tablet 1 mg PO QHS 01/05/23 02/17/23 famotidine 10 mg tablet 10 mg PO BID PRN 01/05/23 02/17/23 quetiapine 400 mg tablet,extended 400 mg PO HS 01/06/23 02/17/23 release 24 hr (Seroquel XR) quetiapine 50 mg tablet,extended 50 mg PO HS 01/06/23 02/17/23 release 24 hr (Seroquel XR) guaifenesin 600 mg tablet,extended 600 mg PO BID PRN 01/25/23 02/17/23 release morphine 10 mg/5 mL oral solution 7.5 mg (3.75 mL) PO Q3H PRN PRN 02/02/23 02/17/23 pain #0 mL prednisone 20 mg tablet 40 mg PO DAILY #5 tabs 02/02/23 02/17/23 quetiapine 50 mg tablet 50 mg PO DAILY #30 tabs 02/02/23 02/17/23 polyethylene glycol 3350 17 gram 17 g PO BID PRN 02/04/23 02/17/23 oral powder packet ondansetron 4 mg disintegrating 4 mg PO BID nausea and vomiting 02/08/23 02/17/23 tablet #30 tabs fentanyl 25 mcg/hr transdermal 1 patch transdermal Q72H #10 ea 02/10/23 02/10/23 patch morphine concentrate 100 mg/5 mL 10 mg (0.5 mL) PO Q2H PRN PRN pain 02/10/23 02/17/23 (20 mg/mL) oral solution #500 mL buprenorphine 7.5 mcg/hour weekly 7.5 patch transdermal 02/17/23 transdermal patch Previous Rx's Medication Instructions Recorded pravastatin 20 mg tablet 20 mg PO QHS #10 tabs 03/17/20 pantoprazole 40 mg tablet,delayed 40 mg PO DAILY@0730 #30 tabs 05/01/21 release calcium carbonate 200 mg calcium 200 mg PO Q2H WHILE AWAKE PRN 10/29/22 (500 mg) chewable tablet (Tums) dyspepsia #90 tabs guaifenesin 100 mg/5 mL oral liquid 200 mg (10 mL) PO Q4H PRN PRN 10/29/22 congestion #1,000 mL sennosides 8.6 mg tablet (senna) 8.6 mg PO BID PRN constipation #60 11/20/22 tabs prednisone 10 mg tablet 10 mg PO DAILY #30 tabs 12/02/22 ipratropium 0.5 mg-albuterol 3 mg 3 ml inhalation Q6H PRN PRN 12/07/22 (2.5 mg base)/3 mL nebulization shortness of breath or wheezing soln #180 mL morphine 10 mg/5 mL oral solution 7.5 mg (3.75 mL) PO Q3H PRN PRN 02/02/23 pain #0 mL prednisone 20 mg tablet 40 mg PO DAILY #5 tabs 02/02/23 quetiapine 50 mg tablet 50 mg PO DAILY #30 tabs 02/02/23 ondansetron 4 mg disintegrating 4 mg PO BID nausea and vomiting 02/08/23 tablet #30 tabs fentanyl 25 mcg/hr transdermal 1 patch transdermal Q72H #10 ea 02/10/23 patch morphine concentrate 100 mg/5 mL 10 mg (0.5 mL) PO Q2H PRN PRN pain 02/10/23 (20 mg/mL) oral solution #500 mL Allergies Allergy/AdvReac Type Severity Reaction Status Date / Time No Known Allergies Allergy Unverified 02/04/23 14:53 General MOLLY: 2 Review of Systems All systems reviewed & are unremarkable except as noted in HPI and below PFSH All Active Problems (Updated 02/17/23 @ 07:03 by Ronal Recinos DO) COPD exacerbation (Acute) Pacemaker (Acute) Need for home health care (Acute) Advance care planning (Acute) Left kidney mass (Acute) superior pole US ordered 01/26/23 Mass of upper lobe of right lung (Acute) by CT Mass of gastroesophageal junction (Acute) Lung nodule (Acute) Abdominal pain (Acute) pt state he has stopped smoking Respiratory failure with hypoxia and hypercapnia (Chronic) COPD exacerbation (Acute) Unintentional weight loss (Acute) Peripheral neuropathic pain (Acute) Encounter for hospice care discussion (Acute) Oxygen dependent (Acute) Nightmares (Acute) Altered mental status (Acute) Bullae (Acute) Cognitive impairment (Chronic) Ambulatory dysfunction (Chronic) Current smoker (Acute) Lung bullae (Acute) Musculoskeletal chest pain (Chronic) Lethargy (Acute) Lung disease (Acute) Arthritis (Acute) Noncompliance with medication regimen (Acute) Depression (Chronic) UTI (urinary tract infection) (Acute) Polysubstance abuse (Chronic) Confusion (Acute) Orthostatic hypotension (Acute) Ambulatory dysfunction (Acute) Left rib fracture (Acute) Rib fracture (Acute) Syncope (Chronic) Severe chronic obstructive pulmonary disease (Chronic) Systolic and diastolic CHF, chronic (Chronic) Nonischemic dilated cardiomyopathy (Chronic) Medical History Acquired deformity of left hand Agoraphobia Anxiety Anxiety with depression Biventricular implantable cardioverter-defibrillator (ICD) in situ Mode:DDD, Low rate 60bpm, Atrial lead: medtronic 5076, SN: [id number] 09/27/14; RV lead Medtronic 6935M SN: [id number] 09/27/14; LV lead Medtronic 4396, SN; [id number] 09/27/14 (updated 03/11/20) BPH (benign prostatic hyperplasia) Cardiomyopathy CHF (congestive heart failure) Chronic pain syndrome Cigarette smoker Constipation COPD (chronic obstructive pulmonary disease) COPD (chronic obstructive pulmonary disease) Cyst Diabetes Diarrhea Discharge planning issues Dizziness DVT prophylaxis Elevated d-dimer Erectile dysfunction Fatigue Hallucination Hand paresthesia Heart disease History of suicidal ideation History of tobacco abuse Hyperlipidemia Impacted ear wax LBBB (left bundle branch block) Metacarpophalangeal joint pain Musculoskeletal chest pain Pain Pain in right hip Panic anxiety syndrome Personal history of nicotine dependence PTSD (post-traumatic stress disorder) Skin lesion Tobacco use Surgical History AICD (automatic cardioverter/defibrillator) present Status post biventricular pacemaker Family History Mother , 2008 COPD (chronic obstructive pulmonary disease) Social History Smoking/Tobacco Use Status: Former Tobacco Use Quit Date: 03/08/22 Pack-years: 120 Smoking risk assessment performed?: Yes Alcohol Intake: former Drug use: Never Substance use type: does not use Household members: none Pets and animals: No What type of physical activity do you participate in: none Seatbelt use: always Do you feel safe at home: Yes Additional Social history: live alone Exam Narrative Exam Narrative: 1.Const: Well-nourished, Well-developed, appearing stated age 2.Eyes: PERRL, no conjunctival injection, and symmetrical lids. 3.ENT: Atraumatic external nose and ears. Moist MM. Neck: Symmetric, trachea midline, No thyromegaly. 4.CVS: +S1/S2, No murmurs or gallops. Peripheral pulses 2+ and equal in all extremities. Brisk capillary refill in all extremities. 5.RESP: Notably diminished respirations throughout. 6.GI: Soft, Nontender/Nondistended, No hepatosplenomegaly. No guarding or rebound. 7.MSK: Normocephalic/Atraumatic, Extremities w/o deformity or ttp No cyanosis or clubbing, Normal movement of all extremities. No calf tenderness 8.Skin: Warm, Dry. No rashes or lesions. 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 Sensation grossly intact, no focal neurologic deficits. 10.Psych: (AAO) x3. Appropriate mood and affect
[2023-02-17 05:25] LABS: Abs Immature Grans 0.05 10^3/uL (0.0-0.06); Absolute Basophil Count 0.04 10^3/uL (0.0-0.2); Basophils % 0.3; Eosinophils % 0.2; HCT 50.1 % (40.0-50.0); HGB 16.5 g/dL (13.5-17.5); Immature Grans % 0.4; Lymphocytes % 11.3; MCHC 32.9 % (32.0-36.0); MCV 91 fL (80-95); MPV 10.3 fL (8.0-11.0); Monocytes % 10.3; Neutrophils % 77.5; Platelet Count 255 10^3/uL (130-400); RDW 13.5 % (11.8-14.1); WBC 12.78 10^3/uL (4.4-10.8)
[2023-02-17 05:27] LABS: Absolute Eosinophil Count 0.03 10^3/uL (0.0-0.7); Absolute Lymphocyte Count 1.44 10^3/uL (1.2-3.4); Absolute Monocyte Count 1.32 10^3/uL (0.1-0.8)
[2023-02-17 05:28] LABS: BE (Venous) 8 mmol/L (-2-3); HCO3 (Venous) 35 mmol/L (23-28); O2 Sat (Venous) 47 %; TCO2 (Venous) 31 mmol/L (24-29); pH (Venous) 7.28 (7.31-7.41); pO2 (Venous) 27 mmHg
[2023-02-17 05:30] LABS: pCO2 (Venous) 74 mmHg (41-51)
[2023-02-17 06:08] LABS: ALT 29 U/L (16-63); AST 17 U/L (15-37); Albumin 3.7 g/dL (3.4-5.0); Alkaline Phosphatase 93 U/L (46-116); Anion Gap 4.5 mmol/L (3-11); BUN 11 mg/dL (7-18); Bilirubin, Total 0.4 mg/dL (0.2-1.0); CO2 35.5 mmol/L (21.0-32.0); CREATININE 0.9 mg/dL (0.70-1.30); Calcium 9.8 mg/dL (8.5-10.1); Chloride 98 mmol/L (98-107); Estimated GFR 98.38 (mL/min/1.73m2); Glucose 166 mg/dL (74-106); NT-proBNP 317 pg/mL (<300); Potassium 4.9 mmol/L (3.5-5.1); Sodium 138 mmol/L (136-145); Total Protein 8.1 g/dL (6.4-8.2); Troponin I < 50 ng/L (<or=60)
[2023-02-17 06:34] LABS: COVID-19 PCR Negative (Negative); Influenza A PCR Negative (Negative); Influenza B PCR Negative (Negative); RSV PCR Negative (Negative)
[2023-02-17 06:37] LABS: Source Nasopharynx
--- NOTE | 2023-02-17 06:52 | DI.VRAD_ITS ---
PROCEDURE INFORMATION: Exam: XR Chest Exam date and time: 02/17/2023 5:31 AM Age: 57 years old Clinical indication: Shortness of breath and other: Hypoxia; Prior surgery; Surgery date: 6+ months; Surgery type: Pacemaker sep 2014; Patient HX: SOB, hypoxic TECHNIQUE: Imaging protocol: Radiologic exam of the chest. Views: 1 view. COMPARISON: 1. CR XR PORTABLE CHEST AP 01/25/2023 8:[address] CHEST PE ABD PELVIS W 01/25/2023 9:42 AM FINDINGS: Tubes, catheters and devices: There is a triple lead left chest AICD in place. Lungs: The lungs are hyperinflated. Upper lobe emphysematous changes are noted. Otherwise, the lungs are clear bilaterally. There is no consolidation, infiltrate, or pulmonary edema. The pulmonary vasculature is normal in caliber. Pleural spaces: Unremarkable. No pleural effusion or pneumothorax. Heart/Mediastinum: Heart size is normal. Cardiomediastinal contours are stable and satisfactory. Bones/joints: Unremarkable. IMPRESSION: Findings consistent with emphysema and chronic obstructive pulmonary disease. No new/acute abnormality. Dictated and Authenticated by: Isabelle Joe MD. Ordering:DAMIAN Villeda MD
[2023-02-17 08:11] LABS: BE (Venous) 10 mmol/L (-2-3); HCO3 (Venous) 36 mmol/L (23-28); O2 Sat (Venous) 59 %; TCO2 (Venous) 32 mmol/L (24-29); pH (Venous) 7.33 (7.31-7.41); pO2 (Venous) 32 mmHg
[2023-02-17 08:13] LABS: pCO2 (Venous) 67 mmHg (41-51)
--- NOTE | 2023-02-17 08:14 | ED.PROG_ITS ---
Date of service: 02/17/23 Time of Service: 08:15 Medical Decision Making Patient signed out to me by Dr. Ronal Masters who comes in with COPD exacerbation and respiratory failure with hypoxia and hypercapnia which an initial pH was 7.27 and a PCO2 of 74. Patient received DuoNebs, Solu-Medrol, and BiPAP here in the emergency department with improvement and now his pH is 7.33 with a PCO2 of 67 but still not 100% at baseline for his now at 2 L nasal cannula. Labs show a white count of 12.7 thousand with a left shift. Patient is under palliative care for he has a esophageal mass its inoperable due to his terminal COPD and is under palliative care. Spoke with the palliative care provider but at this time they deemed that he could be admitted to improve his respiratory status before they decide on long-term palliative or hospice care. Chest x-ray does not show any pneumonia as per Dr. Masters. All the data was analyzed by me and the patient deemed to be admittable for improvement of his respiratory status. I have consulted with the palliative care and with the hospitalist who agreed the patient needs to be admitted for further steroid and DuoNeb treatments to the hospital to improve his respiratory status. Shared decision making: I spoke with the patient who agrees and will want to be admit masha for improvement in his respiratory status. Differential Diagnosis Differential Diagnosis: 1. COPD exacerbation 2. Aspiration pneumonia 3. Respiratory acidosis Medical Records Medical records reviewed: Yes I reviewed the patient's medical records. Lab Data Lab results reviewed: Yes I reviewed the patient's lab results. Labs: ? ED Progress Note Preview Review?and?Refine ? Ready for Discharge ? Recall ? Save Sign Principal Arcadio Molina MD Contributors Last Saved at 02/17/23 08:32 Date of Service MDM Exam Narrative PROC CC Time Sign Out Discharge Plan F2F POCUS Exam (ED) Medical Decision Making Add?Content ? View?Previous Differential Diagnosis ? Date of Service ? ? MDM Narrative ? ? Medical decision making narrative ? ? Patient signed out to me by Dr. Ronal Masters who comes in with COPD exacerbation and respiratory failure with hypoxia and hypercapnia which an initial pH was 7.27 and a PCO2 of 74. Patient received DuoNebs, Solu- Medrol, and BiPAP here in the emergency department with improvement and now his pH is 7.33 with a PCO2 of 67 but still not 100% at baseline for his now at 2 L nasal cannula. Labs show a white count of 12.7 thousand with a left shift. Patient is under palliative care for he has a esophageal mass its inoperable due to his terminal COPD and is under palliative care. Spoke with the palliative care provider but at this time they deemed that he could be admitted to improve his respiratory status before they decide on long- term palliative or hospice care. Chest x- ray does not show any pneumonia as per Dr. Masters. All the data was analyzed by me and the patient deemed to be admittable for improvement of his respiratory status. I have consulted with the palliative care and with the hospitalist who agreed the patient needs to be admitted for further steroid and DuoNeb treatments to the hospital to improve his respiratory status. Shared decision making: I spoke with the patient who agrees and will want to be admitted for improvement in his respiratory status. ? Differential Diagnosis ? Medical Records ? ? Medical records reviewed ? I reviewed the patient's medical records. ? Medical records narrative ? ? Radiologic Studies ? Imaging Data Add ? Lab Data ? ? Lab results reviewed Yes -N-o- ? I reviewed the patient's lab results. ? Lab results narrative ? ? ? Labs ? ? ECG Data ? ? Attestation ? I personally reviewed and interpreted this ECG (s) as follows: ? Prior ECG tracings ? available for review not available for review ? Interpretation ? Please include at least 3 of the following 6 elements in your interpretation: * [place]? * Rhythm? * Rate? * MD intervals? * ST-T wave changes? * Comparison to a prior ECG (if reviewed) ? Core Measures ? ? AMI Core Measures Followed ? Yes No ? Measure exclusions ? not indicated contraindicated Exam ? Narrative ? Procedures ? Critical Care Time ? Sign Out ? Discharge ? Restraint Face to Face ? POCUS Exam (ED) ? ? [facility] 57, M?1965 MRN#? [id number] REG ER,?Main ER??2ER?-2ER? 81.3kg ? Chest Pain Acc#? [id number] Resus Status Not Ordered Hx Avail Allergies No Known Allergies Problems External Data Available ? 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 Lung nodule Abdominal pain Respiratory failure with hypoxia and hypercapnia COPD exacerbation Unintentional weight loss Peripheral neuropathic pain Encounter for hospice care discussion Oxygen dependent Nightmares Altered mental status Altered mental status [place] Cognitive impairment COVID-19 ruled out by laboratory testing Ambulatory dysfunction Current smoker Lung bullae COVID-19 ruled out by laboratory testing Musculoskeletal chest pain AMS (altered mental status) Lethargy Lung disease Arthritis Noncompliance with medication regimen Depression History of alcohol abuse UTI (urinary tract infection) Polysubstance abuse Acute alteration in mental status Confusion Orthostatic hypotension Ambulatory dysfunction Altered mental status Dehydration Left rib fracture Rib fracture Hypotension Syncope Severe chronic obstructive pulmonary disease Systolic and diastolic CHF, chronic Nonischemic dilated cardiomyopathy Home Meds Not Confirmed Total 60 MME/Day Incomplete MEDICATIONS (INSTRUCTIONS) LAST TAKEN Active acetaminophen [Tylenol] 325 mgPODAILYPRN albuterol sulfate [ProAir HFA] 2 [id number] WHILE AWAKEPRN benztropine 1 mgPOQHS budesonide-formoterol [Symbicort] 2 puffinhalationBID buprenorphine ??7.5 patchtransdermal 02/17/23 bupropion HCl 300 mgPODAILY calcium carbonate 200 mg calcium (500 mg) chewable tablet 200 [id number] WHILE AWAKEPRNdyspepsia#90 tabs clonazepam 1 mg tablet 1 mgPOBID famotidine 10 mgPOBIDPRN ??fentanyl 25 mcg/hr transdermal patch ??1 [id number]#10 ea 60 MME/Day gabapentin 300 mg tablet 300 mgPOBID *Product no longer available guaifenesin 600 mgPOBIDPRN *Product no longer available guaifenesin 100 mg/5 mL oral liquid 200 mg(10 mL)POQ4H PRNPRNcongestion#1,000 mL ipratropium 0.5 mg-albuterol 3 mg (2.5 mg base)/3 mL nebulization soln 3 [id number] PRNPRNshortness of breath or wheezing#180 mL montelukast 10 mgPODAILY morphine 7.5 mg(3.75 mL)POQ3H PRNPRNpain#0 mL 0 MME/Day morphine concentrate 100 mg/5 mL (20 mg/mL) oral solution 10 mg(0.5 mL)POQ2H PRNPRNpain#500 mL 0 MME/Day naloxone 4 mg/actuation nasal spray 4 [id number] nitroglycerin 0.3 mgsublingualQ5-15MPRN ondansetron 4 mg disintegrating tablet 4 mgPOBIDnausea and vomiting#30 tabs pantoprazole 40 mgPODAILY@0730#30 tabs polyethylene glycol 3350 17 gPOBIDPRN pravastatin 20 mgPOQHS#10 tabs prednisone 40 mgPODAILY#5 tabs prednisone 10 mg tablet 10 mgPODAILY#30 tabs quetiapine 50 mgPODAILY#30 tabs quetiapine [Seroquel XR] 400 mgPOHS quetiapine [Seroquel XR] 50 mgPOHS sennosides 8.6 mg tablet 8.6 mgPOBIDPRNconstipation#60 tabs tamsulosin 0.4 mgPOHS Special Indicators No Data to Display Vitals - Initial & Most Recent INITIAL Today 05:55 CURRENT Today 08:28 BP 119/67 *134/68 Pulse *106 H *92 H Resp *16 29 H Temp *36.1 C L *36.1 C L O2 Sat *99 91 L O2 Delivery *from earlier documentation Triage Note SOB while at home. chest tightness and chest pain for a week. [facility] External Data Available MEDICAL HISTORY ONSET Acquired deformity of left hand Agoraphobia Anxiety Anxiety with depression BPH (benign prostatic hyperplasia) Biventricular implantable cardioverter-defibrillator (ICD) in situ CHF (congestive heart failure) COPD (chronic obstructive pulmonary disease) COPD (chronic obstructive pulmonary disease) Cardiomyopathy Chronic pain syndrome Cigarette smoker Constipation Cyst DVT prophylaxis Diabetes Diarrhea Discharge planning issues Dizziness Elevated d-dimer Erectile dysfunction Fatigue Hallucination Hand paresthesia Heart disease History of suicidal ideation History of tobacco abuse Hyperlipidemia Impacted ear wax LBBB (left bundle branch block) Metacarpophalangeal joint pain Musculoskeletal chest pain PTSD (post-traumatic stress disorder) Pain Pain in right hip Panic anxiety syndrome Personal history of nicotine dependence Skin lesion Tobacco use SURGICAL HISTORY ONSET AICD (automatic cardioverter/defibrillator) present Status post biventricular pacemaker FAMILY HISTORY SOCIAL HISTORY Documents Most Recent Departmental Emergency Room Progress Note Today Emergency Room Visit Notes Today EKG Interpretation Report Today Palliative Care Note 02/10/23 Anesthesia Record 02/06/23 Endoscopy Procedure 02/05/23 Discharge/Orders Instructions 02/05/23 Anesthesia Post Evaluation 02/05/23 History & Physical 02/05/23 Anesthesia Preoperative Report 02/05/23 Physical Therapy Discharge Summary 02/04/23 Case Management Discharge Summary 02/02/23 Home Health Care Referral Worksheet 02/02/23 Palliative Care Progress Note 02/02/23 Discharge Packet 02/02/23 Discharge Summary 02/02/23 Case Management Progress Note 02/01/23 Non-Treatment Note 02/01/23 Progress Notes 02/01/23 Physical Therapy Treatment 01/29/23 Nutrition Consultation 01/28/23 Physical Therapy Evaluation 01/27/23 Case Management Initial Assessment 01/26/23 Palliative Consultation 01/26/23 Surgical Consultation 01/25/23 Pulmonology Visit 01/21/23 Palliative Care Telehealth 01/19/23 Diabetes Progress Note 01/07/23 Pharmacy Med Rec Note 01/06/23 Traffic Ii Manager Progress Notes 11/06/22 Pharmacy Clinical Report 04/01/22 Psychiatric Consultation 04/01/22 Pulmonology & Critical Care Event Note 04/01/22 Pulmonary Consultation 03/30/22 Case Management Notes 02/06/22 ED Discharge Packet 02/05/22 Neurology Visit 05/21/21 Psych Consult [facility]-PSYCH NOTE FROM [facility]ATH[facility] 02/14/21 Pacemaker Interrogation Rpt pace maker 01/28/21 Mental Health Progress Note 05/20/20 Care Management Safety Plan 05/20/20 Cardiology Consultation 05/20/20 Mental Health Crisis Plan 05/17/20 Mental Health Emergency Eval 05/16/20 Nutrition Follow-Up 03/11/20 Anesthesiology Procedure Note 03/10/20 Nocturnal Oximetry Test 03/08/20 Cardiology Visit 07/06/19 Clinic Visit 04/28/19 Initial Clinic Visit 01/29/16 Stress Test Report(Onbase) 03/21/14 Treatment & Recovery Plan Note 08/04/13 PT Reassessment 07/03/13 Treatment & Recovery Plan 05/22/13 Occupational Medicine Consultation 05/11/13 Occupational Medicine Note 05/11/13 Occ Med WC Work Status 05/11/13 Emergency Dept Note 07/22/10 Pulmonary Function Screen 05/22/09 Resp Therapy Reports 05/21/09 Walk-In Clinic Notes 12/26/08 Imaging Radiology Report Today Chest X-Ray Today Abdomen X-Ray 01/26/23 Renal Ultrasound 01/26/23 Chest/Abdomen/Pelvis CT 01/25/23 Echocardiogram Ultrasound 01/07/[address] 04/01/22 Abdomen/Pelvis CT 02/18/[address] 02/18/22 Head/Cervical Spine CT 07/19/21 Hand X-Ray 01/01/21 Hip X-Ray 01/01/21 Anesthesia 03/10/20 Echocardiogram Report 03/08/20 Ultrasound Reports 07/10/14 Stress Test Nuclear Medicine 03/21/14 Myocardial Perfusion Scan Nuc Med 03/21/14 Upper Extremity MRI 04/26/13 Diagnostic Imaging Reports 04/26/13 Wrist X-Ray 03/27/13 DI [facility] Exam Reports 05/30/12 Lab Results Last 24 Hrs Most Recent Hematology WBC (4.4-10.8) 12.78 10^3/uL H Today 05:18 RBC (4.36-5.78) 5.50 10^6/uL Today 05:18 Hgb (13.5-17.5) 16.5 g/dL Today 05:18 Hct (40.0-50.0) 50.1 % H Today 05:18 MCV (80-95) 91 fL Today 05:18 MCH (27.0-33.0) 30.0 pg Today 05:18 MCHC (32.0-36.0) 32.9 % Today 05:18 RDW (11.8-14.1) 13.5 % Today 05:18 Plt Count (130-400) 255 10^3/uL Today 05:18 MPV (8.0-11.0) 10.3 fL Today 05:18 Immature Gran % 0.4 Today 05:18 Neutrophils % 77.5 Today 05:18 Lymphocytes % 11.3 Today 05:18 Monocytes % 10.3 Today 05:18 Eosinophils % 0.2 Today 05:18 Basophils % 0.3 Today 05:18 Nucleated RBC % (0.0-0.3) 0.0 % Today 05:18 Absolute Neutrophils (1.2-6.7) 9.90 10^3/uL H Today 05:18 Absolute Lymphocytes (1.2-3.4) 1.44 10^3/uL Today 05:18 Absolute Monocytes (0.1-0.8) 1.32 10^3/uL H Today 05:18 Absolute Eosinophils (0.0-0.7) 0.03 10^3/uL Today 05:18 Absolute Basophils (0.0-0.2) 0.04 10^3/uL Today 05:18 Blood Gas VBG pH (7.31-7.41) 7.33?(+) Today 08:05 VBG pCO2 (41-51) 67 mmHg H*?(+) Today 08:05 VBG pO2 32 mmHg?(+) Today 08:05 VBG HCO3 (23-28) 36 mmol/L H?(+) Today 08:05 VBG Total CO2 (24-29) 32 mmol/L H?(+) Today 08:05 VBG O2 Saturation 59 %?(+) Today 08:05 VBG Base Excess (-2-3) 10 mmol/L H?(+) Today 08:05 Chemistry Sodium (136-145) 138 mmol/L Today 05:18 Potassium (3.5-5.1) 4.9 mmol/L Today 05:18 Chloride (98-107) 98 mmol/L Today 05:18 Carbon Dioxide (21.0-32.0) 35.5 mmol/L H Today 05:18 Anion Gap (3-11) 4.5 mmol/L Today 05:18 BUN (7-18) 11 mg/dL Today 05:18 Creatinine (0.70-1.30) 0.9 mg/dL Today 05:18 Est GFR (CKD-EPI 2020) (mL/min/1.73m2) 98.38? Today 05:18 Glucose (74-106) 166 mg/dL H Today 05:18 Calcium (8.5-10.1) 9.8 mg/dL Today 05:18 Total Bilirubin (0.2-1.0) 0.4 mg/dL Today 05:18 AST (15-37) 17 U/L Today 05:18 ALT (16-63) 29 U/L Today 05:18 Alkaline Phosphatase (46-116) 93 U/L Today 05:18 Troponin I Pending?(+) Today 08:05 NT-Pro-B Natriuret Pep (<300) 317 pg/mL H Today 05:18 Total Protein (6.4-8.2) 8.1 g/dL Today 05:18 Albumin (3.4-5.0) 3.7 g/dL Today 05:18 Serology COVID-19 Source Nasopharynx Today 05:26 SARS-CoV-2 (PCR) (Negative) Negative? Today 05:26 Influenza Type A (PCR) (Negative) Negative Today 05:26 Influenza Type B (PCR) (Negative) Negative Today 05:26 RSV (PCR) (Negative) Negative Today 05:26 [facility] Medical History COPD Other Medical History 1 Other Medical History 2 Other Medical History 3 Other Medical History 4 Other Medical History 5 Surgical History Other Surgical History 1 pacemaker Other Surgical History 2 Other Surgical History 3 Family History Other Pertinent Family History Secondary Triage Note Objective difficulty breathing a making a complete sentence. Patient noted with buprenorphine transdermal patch 7.5mg to the right side of chest. Subjective Triage Data Stated Complaint [place] Chief Complaint Chest Pain Condition Improving Arrival Date/Time 02/17/23 05:16 Arrival Mode Triaged At ED Location Main ER Area/Station 2ER 2ER Lab Results Last Value Most Recent Hematology WBC (4.4-10.8) 12.78 10^3/uL H Today RBC (4.36-5.78) 5.50 10^6/uL Today Hgb (13.5-17.5) 16.5 g/dL Today Hct (40.0-50.0) 50.1 % H Today MCV (80-95) 91 fL Today MCH (27.0-33.0) 30.0 pg Today MCHC (32.0-36.0) 32.9 % Today RDW (11.8-14.1) 13.5 % Today Plt Count (130-400) 255 10^3/uL Today MPV (8.0-11.0) 10.3 fL Today Abs Immat Gran (auto) (0.0-0.09) 0.02 k/cumm 03/13/16 Immature Gran % 0.4 Today Neutrophils % 77.5 Today Lymphocytes % 11.3 Today Monocytes % 10.3 Today Eosinophils % 0.2 Today Basophils % 0.3 Today Nucleated RBC % (0.0-0.3) 0.0 % Today Absolute Neutrophils (1.2-6.7) 9.90 10^3/uL H Today Absolute Lymphocytes (1.2-3.4) 1.44 10^3/uL Today Absolute Monocytes (0.1-0.8) 1.32 10^3/uL H Today Absolute Eosinophils (0.0-0.7) 0.03 10^3/uL Today Absolute Basophils (0.0-0.2) 0.04 10^3/uL Today RBC Morphology Normal 02/20/22 Coagulation PT (9.3-11.0) 10.4 sec 02/18/22 INR (0.9-1.1) 1.0? 02/18/22 APTT (21.0-27.5) 26.7 sec 02/18/22 D-Dimer (<500) 1001 ng/mlFEU H 01/25/23 Blood Gas ABG Sample Site Right Radial 03/31/22 ABG pH (7.35-7.45) 7.23 L 03/31/22 ABG pCO2 (35-45) 82 mmHg H* 03/31/22 ABG pO2 (80-105) 46 mmHg L 03/31/22 ABG HCO3 (22-26) 34 mmol/L H 03/31/22 ABG Total CO2 (23-27) 31 mmol/L H 03/31/22 ABG O2 Saturation (95-98) 73 % L 03/31/22 ABG Base Excess (-2-3) 7 mmol/L H 03/31/22 VBG pH (7.31-7.41) 7.33 Today VBG pCO2 (41-51) 67 mmHg H* Today VBG pO2 32 mmHg Today VBG HCO3 (23-28) 36 mmol/L H Today VBG Total CO2 (24-29) 32 mmol/L H Today VBG O2 Saturation 59 % Today VBG Base Excess (-2-3) 10 mmol/L H Today VBG Lactate (0.6-1.4) 1.1 mmol/L 04/28/21 Oxygen Liter Flow 4 L 03/31/22 Chemistry Sodium (136-145) 138 mmol/L Today Potassium (3.5-5.1) 4.9 mmol/L Today Chloride (98-107) 98 mmol/L Today Carbon Dioxide (21.0-32.0) 35.5 mmol/L H Today Anion Gap (3-11) 4.5 mmol/L Today Estimated GFR >= 60.00? 08/15/12 BUN (7-18) 11 mg/dL Today Creatinine (0.70-1.30) 0.9 mg/dL Today Estimated GFR/1.73 m2 (mL/min/1.73m2) >= 60.00 04/06/22 Est GFR (CKD-EPI 2020) (mL/min/1.73m2) 98.38? Today Glucose (74-106) 166 mg/dL H Today Hemoglobin A1c (<5.7) 6.5 % H 11/12/22 Lactate (0.6-1.4) 1.4 mmol/L 07/09/19 Conjugated Bilirubin (0.00-0.20) 0.13 mg/dL 04/02/14 Calcium (8.5-10.1) 9.8 mg/dL Today Phosphorus (2.6-4.7) 4.5 mg/dL 04/01/22 Magnesium (1.8-2.4) 2.1 mg/dL 02/02/23 Ferritin (26-388) 210 ng/mL 02/25/22 Total Bilirubin (0.2-1.0) 0.4 mg/dL Today AST (15-37) 17 U/L Today ALT (16-63) 29 U/L Today Alkaline Phosphatase (46-116) 93 U/L Today Ammonia (11-32) 12 umol/L 02/18/22 Creatine Kinase (39-308) 47 U/L 02/18/22 Troponin I (<or=60) < 50 ng/L Today Cholesterol (50-200) 245 mg/dL H 06/03/15 NT-Pro-B Natriuret Pep (<300) 317 pg/mL H Today Total Protein (6.4-8.2) 8.1 g/dL Today Albumin (3.4-5.0) 3.7 g/dL Today LDL Cholesterol Direct (<100) 123 mg/dL H 12/26/18 Triglycerides (<150) 190 mg/dL H 02/25/22 Total Cholesterol (<200) 165 mg/dL 02/25/22 LDL Cholesterol, Calc (<100) 71 mg/dL 02/25/22 HDL Cholesterol (40-60) 56 mg/dL 02/25/22 Lipase (16-77) 21 U/L 01/25/23 Total 25-OH Vitamin D (30-100) 10.9 ng/mL L 03/13/16 Vitamin B12 (193-986) 443 pg/mL 02/25/22 Procalcitonin < 0.1 ng/mL 01/25/23 Free T4 (0.76-1.46) 0.76 ng/dL 02/18/22 TSH (0.36-3.74) 2.03 uIU/mL 11/12/22 Free T3 pg/mL (2.8-5.3) 4.7 pg/mL 02/25/22 Urines Urine Color (Yellow) Yellow 02/18/22 Urine Clarity (Clear) Clear 02/18/22 Urine pH (5-8) 7.0 02/18/22 Ur Specific [place] (1.005-1.025) 1.015 02/18/22 Urine Protein (Negative) Negative mg/dL 02/18/22 Urine Ketones (Negative) Negative mg/dL 02/18/22 Urine Blood (Negative) Negative 02/18/22 Urine Nitrite (Negative) Negative 02/18/22 Urine Bilirubin (Negative) Negative 02/18/22 Urine Urobilinogen (Up TO 0.2) 0.2 EU/dL 02/18/22 Ur Leukocyte Esterase (Negative) Negative 02/18/22 Urine RBC (0-2) Negative HPF 01/21/21 Urine WBC (0-5) 5-10 HPF 01/21/21 Ur Epithelial Cells (Negative) Few HPF 01/21/21 Urine Crystals (Negative) Negative HPF 01/21/21 Urine Bacteria (Negative) Negative HPF 01/21/21 Urine Casts (Negative) 3-5 fine granular LPF 01/21/21 Urine Mucus (Negative) Negative 01/21/21 Urine Other (Negative) Negative 01/21/21 Ur Culture Indicated? Yes 01/21/21 Urine Glucose (Negative) Negative mg/dL 02/18/22 Other Body Source Stool Description Not Applicable 01/21/21 Stl C.difficile Tox PCR (Negative) Negative 01/21/21 Stool Ova & Parasites See below? 01/21/21 Toxicology Urine Noroxymorphone (Cutoff: 25) Negative ng/mL 02/15/17 Ur Opiates Interpret Positive.? 02/15/17 Ur Codeine (LC/MS/MS) (Cutoff: 25) Negative ng/mL 02/15/17 U Dihydrocodeine Cnfrm (Cutoff: 25) Negative ng/mL 02/15/17 U Morphine Conf LCMSMS (Cutoff: 25) Negative ng/mL 02/15/17 Salicylates (<2.8) 4.9 mg/dL 02/18/22 Urine Opiates Screen (Negative) Negative 02/18/22 U Hydrocodone LC/MS/MS (Cutoff: 25) 76 ng/mL 02/15/17 Ur Norhydrocodone (Cutoff: 25) 126 ng/mL 02/15/17 Ur Noroxycodone (Cutoff: 25) Negative ng/mL 02/15/17 Ur Oxycodone LC/MS/MS (Cutoff: 25) Negative ng/mL 02/15/17 Ur Oxymorphone LC/MS/MS (Cutoff: 25) Negative ng/mL 02/15/17 U Hydromorphone Cn LCMSMS (Cutoff: 25) Negative ng/mL 02/15/17 Urine Naloxone (Cutoff: 25) Negative ng/mL 02/15/17 Urine Methadone Screen (Negative) Negative 02/18/22 Acetaminophen (10-30) < 2 ug/mL 02/18/22 Ur Barbiturates Screen (Negative) Negative 02/18/22 Ur Tricyclics Screen (Negative) Positive A 02/18/22 Ur Amphetamines Screen (Negative) Negative 02/18/22 U Benzodiazepines Scrn (Negative) Negative? 02/18/22 [place] (0.6-1.2) < 0.2 mmol/l L 03/31/22 Urine Cocaine Screen (Negative) Negative 02/18/22 Ur THC Screen (Negative) Negative 02/18/22 Ethyl Alcohol (<10) < 3.0 mg/dL 02/18/22 Serology Nasopharyn COVID-19 PCR Not Applicable 08/27/21 COVID-19 Source Nasopharynx Today SARS-CoV-2 (PCR) (Negative) Negative? Today Influenza Type A (PCR) (Negative) Negative Today Influenza Type B (PCR) (Negative) Negative Today RSV (PCR) (Negative) Negative Today Miscellaneous Path Cons Comment SEE COMMENT? 02/20/22 Ref Test Perform Site [facility] [employer] Lab? 08/27/21 Add-On Test Request DONE 01/25/23 Laboratory Reports Laboratory Spec Inquiry Report 01/05/13 Laboratory Summaries 08/15/12 Microbiology Reports Micro Respiratory Spec 01/26/23 Micro Blood Specimen 01/25/23 Micro GI Specimen 01/21/21 Micro Urine Specimen 01/21/21 Micro Specimen Inquiry Report 11/07/08 Pathology Reports PTH Surgical Specimen 02/05/23 Pathology 02/05/23 * White Blood Count William Gay?(c)??57??M??1965 ? Allergy/Adv: No Known Allergies (More??) Close LISTS GRAPH Collected Result ? Units Range Specimen 02/17/23 05:18 12.78?H ? 10^3/uL 4.4-10.8 ? 02/02/23 06:05 8.06 ? 10^3/uL 4.4-10.8 ? 02/01/23 06:07 8.02 ? 10^3/uL 4.4-10.8 ? 01/31/23 06:15 7.01 ? 10^3/uL 4.4-10.8 ? 01/30/23 05:53 6.22 ? 10^3/uL 4.4-10.8 ? 01/27/23 06:17 8.10 ? 10^3/uL 4.4-10.8 ? 01/26/23 06:05 11.09?H ? 10^3/uL 4.4-10.8 ? 01/25/23 08:20 11.21?H ? 10^3/uL 4.4-10.8 ? 01/10/23 06:30 9.49 ? 10^3/uL 4.4-10.8 ? 01/08/23 06:00 10.10 ? 10^3/uL 4.4-10.8 ? 01/07/23 08:12 10.32 ? 10^3/uL 4.4-10.8 ? 01/06/23 10:25 12.20?H ? 10^3/uL 4.4-10.8 ? 01/05/23 10:40 10.85?H ? 10^3/uL 4.4-10.8 ? 11/12/22 13:40 8.42 ? 10^3/uL 4.4-10.8 ? 04/06/22 06:00 8.80 ? 10^3/uL 4.4-10.8 ? 04/02/22 05:12 6.12 ? 10^3/uL 4.4-10.8 ? 04/01/22 04:38 8.10 ? 10^3/uL 4.4-10.8 ? 03/31/22 05:30 7.37 ? 10^3/uL 4.4-10.8 ? 03/30/22 05:40 8.44 ? 10^3/uL 4.4-10.8 ? 03/28/22 12:18 10.21 ? 10^3/uL 4.4-10.8 ? 03/11/22 15:05 16.35?H ? 10^3/uL 4.4-10.8 ? 02/23/22 05:35 12.91?H ? 10^3/uL 4.4-10.8 ? 02/21/22 06:12 8.29 ? 10^3/uL 4.4-10.8 ? 02/20/22 20:26 10.74 ? 10^3/uL 4.4-10.8 ? 02/19/22 06:20 11.85?H ? 10^3/uL 4.4-10.8 ? 02/18/22 16:10 9.45 ? 10^3/uL 4.4-10.8 ? 02/05/22 16:50 13.89?H ? 10^3/uL 4.4-10.8 ? 07/20/21 06:43 5.81 ? 10^3/uL 4.4-10.8 ? 07/19/21 14:10 6.65 ? 10^3/uL 4.4-10.8 ? 06/09/21 14:40 6.31 ? 10^3/uL 4.4-10.8 ? 05/19/21 06:10 7.77 ? 10^3/uL 4.4-10.8 ? 05/18/21 06:33 7.53 ? 10^3/uL 4.4-10.8 ? 05/14/21 11:11 11.10?H ? 10^3/uL 4.4-10.8 ? 05/14/21 10:45 Cancelled ? 05/01/21 06:35 13.48?H?? 10^3/uL 4.4-10.8 ? 04/30/21 06:33 9.70 ? 10^3/uL 4.4-10.8 ? 04/29/21 08:19 7.49 ? 10^3/uL 4.4-10.8 ? 04/28/21 23:32 6.29 ? 10^3/uL 4.4-10.8 ? 03/18/21 14:10 6.60 ? 10^3/uL 4.4-10.8 ? 01/22/21 06:05 5.91?? 10^3/uL 4.4-10.8 ? 01/21/21 13:55 10.29 ? 10^3/uL 4.4-10.8 ? 01/09/21 15:00 8.55 ? 10^3/uL 4.4-10.8 ? 05/20/20 06:25 10.01 ? k/cumm 4.4-10.8 ? 05/19/20 06:20 13.44?H ? k/cumm 4.4-10.8 ? 05/18/20 21:35 15.21?H ? k/cumm 4.4-10.8 ? 05/17/20 06:15 5.01 ? k/cumm 4.4-10.8 ? 05/16/20 15:20 6.55 ? k/cumm 4.4-10.8 ? 05/01/20 22:45 7.47 ? k/cumm 4.4-10.8 ? 03/17/20 07:58 6.25 ? k/cumm 4.4-10.8 ? 03/15/20 08:25 6.00 ? k/cumm 4.4-10.8 ? 03/12/20 06:30 4.09?L ? k/cumm 4.4-10.8 ? 03/11/20 06:15 4.12?L ? k/cumm 4.4-10.8 ? 03/10/20 01:10 4.93 ? k/cumm 4.4-10.8 ? 03/08/20 15:00 9.04 ? k/cumm 4.4-10.8 ? 10/04/19 14:07 6.40 ? k/cumm 4.4-10.8 ? 09/20/19 11:03 6.82 ? k/cumm 4.4-10.8 ? 07/10/19 06:22 14.55?H?? k/cumm 4.4-10.8 ? 07/09/19 11:00 7.97 ? k/cumm 4.4-10.8 ? 11/26/18 15:05 Cancelled ? ? ? 11/26/18 15:05 6.02 ? k/cumm 4.4-10.8 ? 09/26/18 12:50 7.82 ? k/cumm 4.4-10.8 01/10/18 15:00 7.63 ? k/cumm 4.4-10.8 ? 03/13/16 16:00 8.40 ? k/cumm 4.4-10.8 ? 06/03/15 15:58 8.29 ? k/cumm 4.4-10.8 ? 04/02/14 13:19 7.37 ? k/cumm 4.4-10.8 ? White Blood Count - History William Gay?(c)??57??M??1965 ? Allergy/Adv: No Known Allergies (More??) Back White Blood Count (Complete) 02/17/23 White Blood Count (Complete) 02/02/23 White Blood Count (Complete) 02/01/23 White Blood Count (Complete) 01/31/23 White Blood Count (Complete) 01/30/23 White Blood Count (Complete) 01/27/23 White Blood Count (Complete) 01/26/23 White Blood Count (Complete) 01/25/23 White Blood Count (Complete) 01/10/23 White Blood Count (Complete) 01/08/23 White Blood Count (Complete) 01/07/23 White Blood Count (Complete) 01/06/23 White Blood Count (Complete) 01/05/23 White Blood Count (Complete) 11/12/22 White Blood Count (Complete) 04/06/22 White Blood Count (Complete) 04/02/22 White Blood Count (Complete) 04/01/22 White Blood Count (Complete) 03/31/22 White Blood Count (Complete) 03/30/22 White Blood Count (Complete) 03/28/22 White Blood Count (Complete) 03/11/22 White Blood Count (Complete) 02/23/22 White Blood Count (Complete) 02/21/22 White Blood Count (Resulted) 02/20/22 White Blood Count (Complete) 02/19/22 White Blood Count (Complete) 02/18/22 White Blood Count (Complete) 02/05/22 White Blood Count (Complete) 07/20/21 White Blood Count (Complete) 07/19/21 White Blood Count (Complete) 06/09/21 White Blood Count (Complete) 05/19/21 White Blood Count (Complete) 05/18/21 White Blood Count (Complete) 05/14/21 White Blood Count (Cancelled) 05/14/21 White Blood Count (Complete) 05/01/21 White Blood Count (Complete) 04/30/21 White Blood Count (Complete) 04/29/21 White Blood Count (Complete) 04/28/21 White Blood Count (Complete) 03/18/21 White Blood Count (Complete) 01/22/21 White Blood Count (Complete) 01/21/21 White Blood Count (Complete) 01/09/21 White Blood Count (Complete) 05/20/20 White Blood Count (Complete) 05/19/20 White Blood Count (Complete) 05/18/20 White Blood Count (Complete) 05/17/20 White Blood Count (Complete) 05/16/20 White Blood Count (Complete) 05/01/20 White Blood Count (Complete) 03/17/20 White Blood Count (Complete) 03/15/20 White Blood Count (Complete) 03/12/20 White Blood Count (Complete) 03/11/20 White Blood Count (Complete) 03/10/20 White Blood Count (Complete) 03/08/20 White Blood Count (Complete) 10/04/19 White Blood Count (Complete) 09/20/19 White Blood Count (Complete) 07/10/19 White Blood Count (Complete) 07/09/19 White Blood Count (Cancelled) 11/26/18 White Blood Count (Complete) 11/26/18 White Blood Count (Complete) 09/26/18 White Blood Count (Complete) 01/10/18 White Blood Count (Complete) 03/13/16 White Blood Count (Complete) 06/03/15 White Blood Count (Complete) 04/02/14 RUN DATE: 02/17/23 [facility] PAGE 1 RUN TIME: [id number] RUN USER[place] [address] Mellisa Jolly MD PATIENT REPORT PATIENT: William Gay LOC: ER U #: [id number] /SX: 1965 M ROOM: RE02/17/[address]: Arcadio Molina M.D. STATUS: REG ER BED: DIS: SPEC #: [id number] EILEEN: 02/17/23 STATUS: COMP REQ #: [id number] RECD: 02/17/[address] [facility] [address]: RONAL MASTERS DO ENTERED: 02/17/[address] [facility] [address]: [employer],LYDIA FAX #: ORDERED: CBC/Diff Test Result Flag Reference Verified WBC 12.78 H 4.4-10.8 10^3/uL 02/17/23 RBC 5.50 4.36-5.78 10^6/uL 02/17/23 HGB 16.5 13.5-17.5 g/dL 02/17/23 HCT 50.1 H 40.0-50.0 % 02/17/23 MCV 91 80-95 fL 02/17/23 MCH 30.0 27.0-33.0 pg 02/17/23 MCHC 32.9 32.0-36.0 % 02/17/23 RDW 13.5 11.8-14.1 % 02/17/23 Platelet Count 255 130-400 10^3/uL 02/17/23 MPV 10.3 8.0-11.0 fL 02/17/23 Neutrophils % 77.5 02/17/23 Lymphocytes % 11.3 02/17/23 Monocytes % 10.3 02/17/23 Eosinophils % 0.2 02/17/23 Basophils % 0.3 02/17/23 Immature Grans % 0.4 02/17/23 Nucleated RBC 0.0 0.0-0.3 % 02/17/23 Absolute Neutrophil Count 9.90 H 1.2-6.7 10^3/uL 02/17/23 Absolute Lymphocyte Count 1.44 1.2-3.4 10^3/uL 02/17/23-526 Absolute Monocyte Count ?ED Progress NotePreviewReview?and?Refine?Ready for Discharge?Recall?SaveSign PrincipalJorge E Jesse, MDContributorsLast Saved at 02/17/23 08:32Date of ServiceMDMExamNarrativePROCCC TimeSign OutDischarge UzvtO5TOXLYC Exam (ED) Medical Decision MakingAdd?Content?View?PreviousDifferential Diagnosis?Date of Service??MDM Narrative??Medical decision making narrative?? PatientsignedouttomebyDr.JoshuaSpicerwhocomesinwithCOPDexacerbationandrespirator yfailurewithhypoxiaandhypercapniawhichaninitialpHwas7.75pyknMDF8ga93.Patientrece ivedDuoNebs,Solu-Medrol,andBiPAPhereintheemergencydepartmentwithimprovementandno whispHis7.68ufsvkRXN5lx63fnlondrerwn140% glsnxaxhrtshvwsebtawc2Tekocmtsaxrjh.Aoffctfaagfbhpijoovve47.7thousandwithaleftsh ift.Patientisunderpalliativecareforhehasaesophagealmassitsinoperableduetohisterm inalCOPDandisunderpalliativecare.Spokewi ththepalliativecareproviderbutatthistimetheydeemedthathecouldbeadmittedtoimprove hisrespiratorystatusbeforetheydecideonlong-termpalliativeorhospicecare.Chestx-ra ydoesnotshowanypneumoniaasperDr.[place].A llthedatawasanalyzedbymeandthepatientdeemedtobeadmittableforimprovementofhisresp iratorystatus.Ihaveconsultedwiththepalliativecareandwiththehospitalistwhoagreedt hepatientneedstobeadmittedforfurtherster oidandDuoNebtreatmentstothehospitaltoimprovehisrespiratorystatus.Shareddecisionm aking:Ispokewiththepatientwhoagreesandwillwanttobeadmittedforimprovementinhisres piratorystatus.?Differential Diagnosis?Medical Records??Medical records reviewed ?I reviewed the patient's medical records.?Medical records narrative??Radiologic Studies?Imaging DataAdd?Lab Data??Lab results tgfwfnvvCvu-N-s-?I reviewed the patient's lab results.?Lab results narrative???Labs??ECG Data??Attestation?I personally reviewed and interpreted this ECG (s) as follows:?Prior ECG tracings? available for reviewnot available for review?Interpretation?Please include at least 3 of the following 6 elements in your interpretation: * [place]? * Rhythm? * Rate? * MD intervals? * ST-T wave changes? * Comparison to a prior ECG (if reviewed) ?Core Measures??AMI Core Measures Followed?YesNo?Measure exclusions?not indicatedcontraindicatedExam?Narrative?Procedures?Critical Care Time?Sign Out?Discharge?Restraint Face to Face?POCUS Exam (ED)??William Gay57, M? 1965MRN#?[id number] ER,?Main ER??2ER?-2ER? 81.3kg?Chest PainAcc#? [id number] Status Not Ordered Hx AvailAllergiesNo Known AllergiesProblemsExternal Data Available?ONSETCOPD exacerbationPacemakerNeed for home health careAdvance care planningLeft kidney massMass of upper lobe of right lungMass of gastroesophageal junctionLung noduleAbdominal painRespiratory failure with hypoxia and hypercapniaCOPD exacerbationUnintentional weight lossPeripheral neuropathic painEncounter for hospice care discussionOxygen dependentNightmaresAltered mental statusAltered mental statusBullaeCognitive impairmentCOVID-19 ruled out by laboratory testingAmbulatory dysfunctionCurrent smokerLung bullaeCOVID-19 ruled out by laboratory testingMusculoskeletal chest painAMS (altered mental status)LethargyLung diseaseArthritisNoncompliance with medication regimenDepressionHistory of alcohol abuseUTI (urinary tract infection)Polysubstance abuseAcute alteration in mental statusConfusionOrthostatic hypotensionAmbulatory dysfunctionAltered mental statusDehydrationLeft rib fractureRib fractureHypotensionSyncopeSevere chronic obstructive pulmonary diseaseSystolic and diastolic CHF, chronicNonischemic dilated cardiomyopathyHome MedsNot FnyamgolfNcnfa18 MME/DayIncompleteMEDICATIONS (INSTRUCTIONS)LAST TAKENActiveacetaminophen [Tylenol]325 mgPODAILYPRNalbuterol sulfate [ProAir HFA]2 bmcxciakenzabkY1N WHILE AWAKEPRNbenztropine1 mgPOQHS budesonide-formoterol [Symbicort]2 puffinhalationBIDbuprenorphine??7.5 patch cyqbfqapblh61/26/23 bupropion GFg457 mgPODAILYcalcium carbonate 200 mg calcium (500 mg) chewable oesebj733 laSRM8K WHILE AWAKEPRNdyspepsia#90 tabsclonazepam 1 mg tablet1 mgPOBID ytgbnagebn71 mgPOBIDPRN??fentanyl 25 mcg/hr transdermal patch??1 patch lyxsswdsaonI54A#10 ea 60 MME/Daygabapentin 300 mg qweinh551 mg POBID*Product no longer dezziemrwlijmgojbnxu196 mgPOBIDPRN*Product no longer availableguaifenesin 100 mg/5 mL oral mg(10 mL)POQ4H PRNPRNcongestion#1,000 mLipratropium 0.5 mg-albuterol 3 mg (2.5 mg base)/3 mL nebulization soln3 pwqkzoutnrhhE9X PRNPRNshortness of breath or wheezing#180 iLmbyeltahdtk40 mgPODAILYmorphine7.5 mg(3.75 mL)POQ3H PRNPRNpain#0 mL 0 MME/Daymorphine concentrate 100 mg/5 m L (20 mg/mL) oral ditlrxnu44 mg(0.5 mL)POQ2H PRNPRNpain#500 mL 0 MME/Daynaloxone 4 mg/actuation nasal s pray4 soqgdntrycjsR5GKZZfblghxywvdkig7.3 mgsublingualQ5-15MPRNondansetron 4 mg disintegrating tablet4 mgPOBIDnausea and vomiting#30 ftqlphpqvqrshaxe70 mgPODAILY@0730#30 tabspolyethylene glycol 521029 oRMBANGNBuwfopylcopm21 mgPOQHS#10 kqslbhqswgakuq44 mgPODAILY#5 tabsprednisone 10 mg gygqeb61 mgPODAILY#30 mgPODAILY#30 tabsquetiapine [Seroquel XR]400 mgPOHSquetiapine [Seroquel XR]50 mgPOHSsennosides 8.6 mg tablet8.6 mgPOB IDPRNconstipation#60 tabstamsulosin0.4 mgPOHSSpecial IndicatorsNo Data to DisplayVitals - Initial & Most OosxukROFXRUVRjqew83:96ZFIELVEIvofy94:28BP 119/67*134/68Pulse*106 H*92 HResp*1629 HTemp*36.1 C L*36.1 C LO2 Sat*9991 LO2 Delivery*from earlier documentationTriage NoteSOB while at home. chest tightness and chest pain for a week.PFSHExternal Data AvailableMEDICAL HISTORYONSET Acquired deformity of left handAgoraphobiaAnxietyAnxiety with depressionBPH (benign prostatic hyperplasia)Biventricular implantable cardioverter- defibrillator (ICD) in situCHF (congestive heart failure)COPD (chronic obstructive pulmonary disease)COPD (chronic obstructive pulmonary disease)CardiomyopathyChronic pain syndromeCigarette smokerConstipationCystDVT prophylaxisDiabetesDiarrheaDischarge planning issuesDizzinessElevated d- dimerErectile dysfunctionFatigueHallucinationHand paresthesiaHeart diseaseHistory of suicidal ideationHistory of tobacco abuseHyperlipidemiaImpacted ear waxLBBB (left bundle branch block)Metacarpophalangeal joint painMusculoskeletal chest painPTSD (post- traumatic stress disorder)PainPain in right hipPanic anxiety syndromePersonal history of nicotine dependenceSkin lesionTobacco useSURGICAL HISTORYONSETAICD (automatic cardioverter/defibrillator) presentStatus post biventricular pacemakerFAMILY HISTORYSOCIAL HISTORYDocumentsMost RecentDepartmentalEmergency Room Progress NoteTodayEmergency Room Visit NotesTodayEKG Interpretation Report TodayPalliative Care Note02/10/23Anesthesia Xcgcer81/15/23Endoscopy Procedure 02/05/23Discharge/Orders Lkokzdwptbhs90/14/23Anesthesia Post Fcanqxbomx33/14/23 History & Widhioze10/14/23Anesthesia Preoperative Aztknt83/14/23Physical Therapy Discharge Msvmftb58/13/23Case Management Discharge Lanmsve99/11/23Home Health Care Referral Uggsumnjt07/11/23Palliative Care Progress Note02/02/23Discharge Etexnf60/11/23Discharge Etovtxj70/11/23Case Management Progress Note02/01/23Non- Treatment Note02/01/23Progress Notes02/01/23Physical Therapy Hqvolmkeq88/07/23 Nutrition Popmzcwcggqj23/06/23Physical Therapy Wrjgjxpbho77/05/23Case Management Initial Knkxgrtyio79/04/23Palliative Rtaykiunekqz48/04/23Surgical Consultation 01/25/23Pulmonology Visit01/21/23Palliative Care Wtmjgfalnn17/28/23Diabetes Progress Note01/07/23Pharmacy Med Rec Note01/06/23Social Services Progress Notes 11/06/22Pharmacy Clinical Ehcjkb28/08/22Psychiatric Uoanjydaegez11/08/22 Pulmonology & Critical Care Event Note04/01/22Pulmonary Ybhkwldivhcu60/06/22Case Management Notes02/06/22ED Discharge Uocuin70/14/22Neurology Visit05/21/21Psych ConsultNEU-PSYCH NOTE FROM KATHARINA02/14/21Pacemaker Interrogation Rptpace maker 01/28/21Mental Health Progress Note05/20/20Care Management Safety Plan05/20/20 Cardiology Jxqrrttypdqn61/27/20Mental Health Crisis Plan05/17/20[facility] Health Emergency Eval05/16/20Nutrition Follow-Up03/11/20Anesthesiology Procedure Note 03/10/20Nocturnal Oximetry Test03/08/20Cardiology Visit07/06/19Clinic Visit 04/28/19Initial Clinic Visit01/29/16tress Test Report(Onbase)03/21/14Treatment & Recovery Plan Note08/04/13PT Rzpfyqsevezx15/09/13Treatment & Recovery Plan 05/22/13Occupational Medicine Hnakujhoxpsz21/18/13Occupational Medicine Note 05/11/13Occ Med WC Work Hnnizm58/18/13Emergency Dept Note07/22/10Pulmonary Function Blhhjo51/29/09Resp Therapy Mqedodq42/28/09Walk-In Clinic Notes12/26/08 ImagingRadiology ReportTodayChest X-RayTodayAbdomen X-Ray01/26/23Renal Ffqsripzdi66/04/23Chest/Abdomen/Pelvis CT01/25/23Echocardiogram Ultrasound 01/07/23Chest CT04/01/22Abdomen/Pelvis CT02/18/22Head CT02/18/22Head/Cervical Spine CT07/19/21Hand X-Ray01/01/21Hip X-Ray01/01/2131Mjvumnguhq04/17/20 Echocardiogram Hkqcim21/15/20Ultrasound Ygiqdcm17/16/14Stress Test Nuclear Tkpdqbpa11/28/14Myocardial Perfusion Scan Nuc Med03/21/14Upper Extremity MRI 04/26/13Diagnostic Imaging Smutume71/03/13Wrist X-Ray03/27/13DI VRad Exam Kymxfwk69/06/12Lab Results Last 24 HrsMost RecentHematologyWBC(4.4-10.8)12.78 10^3/uL EUuiuk63:18RBC(4.36-5.78)5.50 10^6/uXHflxo95:18Hgb(13.5-17.5)16.5 g/dL Today05:18Hct(40.0-50.0)50.1 % FXozgo10:18MCV(80-95)91 rFNbsqp05:18MCH(27.0- 33.0)30.0 ahZblpd97:18MCHC(32.0-36.0)32.9 %Today05:18RDW(11.8-14.1)13.5 % Today05:18Plt Count(130-400)255 10^3/yPOowbk90:18MPV(8.0-11.0)10.3 kWOkbkh27:18 Immature Gran %0.3Zmsnw78:18Neutrophils %77.0Apccp94:18Lymphocytes %11.3 Today05:18Monocytes %10.3Xnmul85:18Eosinophils %0.1Pmiiv11:18Basophils %0.3 Today05:18Nucleated RBC %(0.0-0.3)0.0 %Today05:18Absolute Neutrophils(1.2-6.7) 9.90 10^3/uL WJuhiw10:18Absolute Lymphocytes(1.2-3.4)1.44 10^3/kHAhkxy24:18 Absolute Monocytes(0.1-0.8)1.32 10^3/uL DJptth99:18Absolute Eosinophils(0.0-0.7) 0.03 10^3/oAPeguf80:18Absolute Basophils(0.0-0.2)0.04 10^3/kOGxrbp01:18Blood Gas VBG pH(7.31-7.41)7.33?(+)Today08:05VBG pCO2(41-51)67 mmHg H*?(+)Today08:05VBG pO232 mmHg?(+)Today08:05VBG HCO3(23-28)36 mmol/L H?(+)Today08:05VBG Total CO2 (24-29)32 mmol/L H?(+)Today08:05VBG O2 Mwanmvygzf10 %?(+)Today08:05VBG Base Excess(-2-3)10 mmol/L H?(+)Today08:05ChemistrySodium(136-145)138 mmol/L Today05:18Potassium(3.5-5.1)4.9 mmol/IPtqbc71:18Chloride(98-107)98 mmol/L Today05:18Carbon Dioxide(21.0-32.0)35.5 mmol/L UIbhzr74:18Anion Gap(3-11)4.5 mmol/ZNxstd13:18BUN(7-18)11 mg/eMYteke42:18Creatinine(0.70-1.30)0.9 mg/dL Today05:18Est GFR (CKD-EPI 2020)(mL/min/1.73m2)98.38?Today05:18Glucose(74-106) 166 mg/dL PXjbou85:18Calcium(8.5-10.1)9.8 mg/rIBvaaj83:18Total Bilirubin(0.2- 1.0)0.4 mg/sZHjhiv49:18AST(15-37)17 U/PTkoyl76:18ALT(16-63)29 U/QCfjzd03:18 Alkaline Phosphatase(46-116)93 U/COafjy76:18Troponin IPending?(+)Today08:05 NT-Pro-B Natriuret Pep(<300)317 pg/mL SFecii96:18Total Protein(6.4-8.2)8.1 g/dL Today05:18Albumin(3.4-5.0)3.7 g/xTKurbc62:18SerologyCOVID-19 SourceNasopharynx Today05:76TDWZ-TbU-3 (PCR)(Negative)Negative?Today05:26Influenza Type A (PCR) (Negative)EgsxoghfYrmbz44:26Influenza Type B (PCR)(Negative)MizskbzeGufzc21:26 RSV (PCR)(Negative)XlgxknxqXkhzp30:26PFSH-NursingMedical HistoryCOPDOther Medical History 1Other Medical History 2Other Medical History 3Other Medical History 4Other Medical History 5Surgical HistoryOther Surgical History 1 pacemakerOther Surgical History 2Other Surgical History 3Family HistoryOther Pertinent Family HistorySecondary Triage NoteObjectivedifficulty breathing a making a complete sentence. Patient noted with buprenorphine transdermal patch 7.5mg to the right side of chest.SubjectiveTriage DataStated ComplaintCalexChief ComplaintChest PainConditionImprovingArrival Date/Time02/17/23 05:16Arrival ModeTriaged AtED LocationMain ERArea/Cdgrhlf7RL 2ERLab Results Last ValueMost RecentHematologyWBC(4.4-10.8)12.78 10^3/uL HTodayRBC(4.36-5.78)5.50 10^6/uLToday Hgb(13.5-17.5)16.5 g/dLTodayHct(40.0-50.0)50.1 % HTodayMCV(80-95)91 fLTodayMCH (27.0-33.0)30.0 pgTodayMCHC(32.0-36.0)32.9 %TodayRDW(11.8-14.1)13.5 %TodayPlt Count(130-400)255 10^3/uLTodayMPV(8.0-11.0)10.3 fLTodayAbs Immat Gran (auto) (0.0-0.09)0.02 k/cumm03/13/16Immature Gran %0.4TodayNeutrophils %77.5Today Lymphocytes %11.3TodayMonocytes %10.3TodayEosinophils %0.2TodayBasophils %0.3 TodayNucleated RBC %(0.0-0.3)0.0 %TodayAbsolute Neutrophils(1.2-6.7)9.90 10^3/uL HTodayAbsolute Lymphocytes(1.2-3.4)1.44 10^3/uLTodayAbsolute Monocytes(0.1-0.8) 1.32 10^3/uL HTodayAbsolute Eosinophils(0.0-0.7)0.03 10^3/uLTodayAbsolute Basophils(0.0-0.2)0.04 10^3/uLTodayRBC NdwdstujzfXwywgp43/29/22CoagulationPT (9.3-11.0)10.4 sec02/18/22INR(0.9-1.1)1.0?02/18/22APTT(21.0-27.5)26.7 sec 02/18/22D-Dimer(<500)1001 ng/mlFEU H001/25/23Blood GasABG Sample SiteRight Radial 03/31/22ABG pH(7.35-7.45)7.23 L03/31/22ABG pCO2(35-45)82 mmHg H*03/31/22ABG pO2 (80-105)46 mmHg L03/31/22ABG HCO3(22-26)34 mmol/L H003/31/22ABG Total CO2(23-27) 31 mmol/L H003/31/22ABG O2 Saturation(95-98)73 % L03/31/22ABG Base Excess(-2-3)7 mmol/L H003/31/22VBG pH(7.31-7.41)7.33TodayVBG pCO2(41-51)67 mmHg H*TodayVBG pO2 32 mmHgTodayVBG HCO3(23-28)36 mmol/L HTodayVBG Total CO2(24-29)32 mmol/L HToday VBG O2 Krsuugfaxp53 %TodayVBG Base Excess(-2-3)10 mmol/L HTodayVBG Lactate(0.6- 1.4)1.1 mmol/L04/28/21Oxygen Liter Flow4 L03/31/22ChemistrySodium(136-145)138 mmol/LTodayPotassium(3.5-5.1)4.9 mmol/LTodayChloride(98-107)98 mmol/LTodayCarbon Dioxide(21.0-32.0)35.5 mmol/L HTodayAnion Gap(3-11)4.5 mmol/LTodayEstimated GFR >= 60.00?08/15/12BUN(7-18)11 mg/dLTodayCreatinine(0.70-1.30)0.9 mg/dLToday Estimated GFR/1.73 m2(mL/min/1.73m2)>= 60.00004/06/22Est GFR (CKD-EPI 2020) (mL/min/1.73m2)98.38?TodayGlucose(74-106)166 mg/dL HTodayHemoglobin A1c(<5.7)6.5 % H011/12/22Lactate(0.6-1.4)1.4 mmol/L07/09/19Conjugated Bilirubin(0.00-0.20)0.13 mg/dL04/02/14alcium(8.5-10.1)9.8 mg/dLTodayPhosphorus(2.6-4.7)4.5 mg/dL04/01/22 Magnesium(1.8-2.4)2.1 mg/dL02/02/23Ferritin(26-388)210 ng/mL02/25/22Total Bilirubin(0.2-1.0)0.4 mg/dLTodayAST(15-37)17 U/LTodayALT(16-63)29 U/LToday Alkaline Phosphatase(46-116)93 U/LTodayAmmonia(11-32)12 umol/L02/18/22Creatine Kinase(39-308)47 U/L02/18/22Troponin I(<or=60)< 50 ng/LTodayCholesterol(50-200) 245 mg/dL H08//15NT-Pro-B Natriuret Pep(<300)317 pg/mL HTodayTotal Protein (6.4-8.2)8.1 g/dLTodayAlbumin(3.4-5.0)3.7 g/dLTodayLDL Cholesterol Direct(<100) 123 mg/dL H012/26/18Triglycerides(<150)190 mg/dL H002/25/22Total Cholesterol(<200) 165 mg/dL02/25/22LDL Cholesterol, Calc(<100)71 mg/dL02/25/22HDL Cholesterol(40- 60)56 mg/dL02/25/22Lipase(16-77)21 U/L01/25/23Total 25-OH Vitamin D(30-100)10.9 ng/mL L03/13/16Vitamin B12(193-986)443 pg/mL02/25/22Procalcitonin< 0.1 ng/mL 01/25/23Free T4(0.76-1.46)0.76 ng/dL02/18/22TSH(0.36-3.74)2.03 uIU/mL11/12/22 Free T3 pg/mL(2.8-5.3)4.7 pg/mL02/25/22UrinesUrine Color(Yellow)Cxzory06/27/22 Urine Clarity(Clear)Clear02/18/22Urine pH(5-8)7.004Ur Specific [place] (1.005-1.025)1.7695802/18/22Urine Protein(Negative)Negative mg/dL02/18/22Urine Ketones(Negative)Negative mg/dL02/18/22Urine Blood(Negative)Mpdhlptc76/27/22 Urine Nitrite(Negative)Vbgfsblh69/27/22Urine Bilirubin(Negative)Pznvimtt02/27/22 Urine Urobilinogen(Up TO 0.2)0.2 EU/dL02/18/22Ur Leukocyte Esterase(Negative) Cdsklhtj76/27/22Urine RBC(0-2)Negative HPF01/21/21Urine WBC(0-5)5-10 HPF01/21/21 Ur Epithelial Cells(Negative)Few HPF01/21/21Urine Crystals(Negative)Negative HPF 01/21/21Urine Bacteria(Negative)Negative HPF01/21/21Urine Casts(Negative)3-5 fine granular LPF01/21/21Urine Mucus(Negative)Hztqeamr16/30/21Urine Other (Negative)Hwbbzewh02/30/21Ur Culture Indicated?Yes01/21/21Urine Glucose (Negative)Negative mg/dL02/18/22Other Body SourceStool DescriptionNot Applicable 01/21/21l C.difficile Tox PCR(Negative)Rvqcjmtj43/30/21ool Ova & Parasites See below?01/21/21ToxicologyUrine Noroxymorphone(Cutoff: 25)Negative ng/mL 02/15/17Ur Opiates InterpretPositive.?02/15/Ur Codeine (LC/MS/MS)(Cutoff: 25) Negative ng/mL04/24/17U Dihydrocodeine Cnfrm(Cutoff: 25)Negative ng/mL04/24/17U Morphine Conf LCMSMS(Cutoff: 25)Negative ng/mL/24/17Salicylates(<2.8)4.9 mg/dL 02/18/22Urine Opiates Screen(Negative)Ppxiklou11/27/22U Hydrocodone LC/MS/MS (Cutoff: 25)76 ng/mL04/24/17Ur Norhydrocodone(Cutoff: 25)126 ng/mL04/24/17Ur Noroxycodone(Cutoff: 25)Negative ng/mL04/24/17Ur Oxycodone LC/MS/MS(Cutoff: 25) Negative ng/mL04/24/17Ur Oxymorphone LC/MS/MS(Cutoff: 25)Negative ng/mL04/24/17U Hydromorphone Cn LCMSMS(Cutoff: 25)Negative ng/mL04/24/17Urine Naloxone(Cutoff: 25)Negative ng/mL04//17Urine Methadone Screen(Negative)Yqqsvttm03/27/22 Acetaminophen(10-30)< 2 ug/mL02/18/22Ur Barbiturates Screen(Negative)Negative 02/18/22Ur Tricyclics Screen(Negative)Positive A002/18/22Ur Amphetamines Screen (Negative)Imwftnol48/27/22U Benzodiazepines Scrn(Negative)Negative?02/18/22 [place](0.6-1.2)< 0.2 mmol/l L03/31/22Urine Cocaine Screen(Negative)Negative 02/18/22Ur THC Screen(Negative)Ajpvhtod17/27/22Ethyl Alcohol(<10)< 3.0 mg/dL 02/18/22SerologyNasopharyn COVID-19 PCRNot Sfobonchnm57/03/21COVID-19 Source FxyitrykrwySqoecOJDJ-AiK-0 (PCR)(Negative)Negative?TodayInfluenza Type A (PCR) (Negative)NegativeTodayInfluenza Type B (PCR)(Negative)NegativeTodayRSV (PCR) (Negative)NegativeTodayMiscellaneousPath Cons CommentSEE COMMENT?02/20/22Ref Test Perform [facility] [address] [facility] Lab?08/27/21Add-On Test GryhshyIWKI48/03/23 Laboratory ReportsLaboratory Spec Inquiry Tyermd10/14/13Laboratory Summaries 08/15/12Microbiology ReportsMicro Respiratory Spec01/26/23Micro Blood Specimen 01/25/23Micro GI Juxmjmek09/30/21Micro Urine Cucamxsl56/30/21Micro Specimen Inquiry Vsvfil73/14/09Pathology ReportsPTH Surgical Zaaeldsz00/14/23Pathology 02/05/23 * White Blood CountWilliam Gay?(c)??57??M??1965?Allergy/Adv: No Known Allergies(More??)CloseLISTSGRAPH CollectedResult?OlvaaChwueRgscnvaz79/26/23 05:1812.78?H?10^3/uL4.4-10.8?02/02/23 06:058.06?10^3/uL4.4-10.8?02/01/23 06:078.02?10^3/uL4.4-10.8?01/31/23 06:157.01?10^3/uL4.4-10.8?01/30/23 05:536.22?10^3/uL4.4-10.8?01/27/23 06:178.10?10^3/uL4.4-10.8?01/26/23 06:0511.09?H?10^3/uL4.4-10.8?01/25/23 08:20 11.21?H?10^3/uL4.4-10.8?01/10/23 06:309.49?10^3/uL4.4-10.8?01/08/23 06:0010.10?10^3/uL4.4-10.8?01/07/23 08:1210.32?10^3/uL4.4-10.8?01/06/23 10:25 12.20?H?10^3/uL4.4-10.8?01/05/23 10:4010.85?H?10^3/uL4.4-10.8?11/12/22 13:408.42?10^3/uL4.4-10.8?04/06/22 06:008.80?10^3/uL4.4-10.8?04/02/22 05:126.12?10^3/uL4.4-10.8?04/01/22 04:388.10?10^3/uL4.4-10.8?03/31/22 05:307.37?10^3/uL4.4-10.8?03/30/22 05:408.44?10^3/uL4.4-10.8?03/28/22 12:1810.21?10^3/uL4.4-10.8?03/11/22 15:0516.35?H?10^3/uL4.4-10.8?02/23/22 05:35 12.91?H?10^3/uL4.4-10.8?02/21/22 06:128.29?10^3/uL4.4-10.8?02/20/22 20:2610.74?10^3/uL4.4-10.8?02/19/22 06:2011.85?H?10^3/uL4.4-10.8?02/18/22 16:109.45?10^3/uL4.4-10.8?02/05/22 16:5013.89?H?10^3/uL4.4-10.8?07/20/21 06:435.81?10^3/uL4.4-10.8?07/19/21 14:106.65?10^3/uL4.4-10.8?06/09/21 14:406.31?10^3/uL4.4-10.8?05/19/21 06:107.77?10^3/uL4.4-10.8?05/18/21 06:337.53?10^3/uL4.4-10.8?05/14/21 11:1111.10?H?10^3/uL4.4-10.8?05/14/21 10:45Cancelled?05/01/21 06:3513.48?H??10^3/uL4.4-10.8?04/30/21 06:339.70?10^3/uL4.4-10.8?04/29/21 08:197.49?10^3/uL4.4-10.8?04/28/21 23:326.29?10^3/uL4.4-10.8?03/18/21 14:106.60?10^3/uL4.4-10.8?01/22/21 06:055.91??10^3/uL4.4-10.8?01/21/21 13:5510.29?10^3/uL4.4-10.8?01/09/21 15:008.55?10^3/uL4.4-10.8?05/20/20 06:2510.01?k/cumm4.4-10.8?05/19/20 06:20 13.44?H?k/cumm4.4-10.8?05/18/20 21:3515.21?H?k/cumm4.4-10.8?05/17/20 06:155.01?k/cumm4.4-10.8?05/16/20 15:206.55?k/cumm4.4-10.8?05/01/20 22:457.47?k/cumm4.4-10.8?03/17/20 07:586.25?k/cumm4.4-10.8?03/15/20 08:256.00?k/cumm4.4-10.8?03/12/20 06:304.09?L?k/cumm4.4-10.8?03/11/20 06:15 4.12?L?k/cumm4.4-10.8?03/10/20 01:104.93?k/cumm4.4-10.8?03/08/20 15:009.04?k/cumm4.4-10.8?10/04/19 14:076.40?k/cumm4.4-10.8?09/20/19 11:036.82?k/cumm4.4-10.8?07/10/19 06:2214.55?H??k/cumm4.4-10.8?07/09/19 11:007.97?k/cumm4.4-10.8?11/26/18 15:05Cancelled???11/26/18 15:056.02?k/cumm4.4- 10.8?09/26/18 12:507.82?k/cumm4.4-10.8001/10/18 15:007.63?k/cumm4.4-10.8?03/13/16 16:008.40?k/cumm4.4-10.8?06/03/15 15:588.29?k/cumm4.4-10.8?04/02/14 13:197.37?k/cumm4.4-10.8?White Blood Count - HistoryWilliam Gay?(c)??57??M??1965?Allergy/Adv: No Known Allergies(More??)White Blood Count (Complete)02/17/23White Blood Count (Complete)02/02/23White Blood Count (Complete)02/01/23White Blood Count (Complete)01/31/23White Blood Count (Complete)01/30/23White Blood Count (Complete)01/27/23White Blood Count (Complete)01/26/23White Blood Count (Complete)01/25/23White Blood Count (Complete)01/10/23White Blood Count (Complete)01/08/23White Blood Count (Complete)01/07/23White Blood Count (Complete)01/06/23White Blood Count (Compl ete)01/05/23White Blood Count (Complete)11/12/22White Blood Count (Complete)04/06/22White Blood Count (Complete)04/02/22White Blood Count (Complete)04/01/22White Blood Count (Complete)03/31/22White Blood Count (Complete)03/30/22White Blood Count (Complete)03/28/22White Blood Count (Complete)03/11/22White Blood Count (Complete)02/23/22White Blood Count (Complete)02/21/22White Blood Count (Resulted)02/20/22White Blood Count (Complete)02/19/22White Blood Count (Complete)02/18/22White Blood Count (Complete)02/05/22White Blood Count (Complete)07/20/21White Blood Count (Complete)07/19/21White Blood Count (Complete)06/09/21White Blood Count (Complete)05/19/21White Blood Count (Complete)05/18/21White Blood Count (Complete)05/14/21White Blood Count (Cancelled)05/14/21White Blood Count (Complete)05/01/21White Blood Count (Complete)04/30/21White Blood Count (Complete)04/29/21White Blood Count (Complete)04/28/21White Blood Count (Complete)03/18/21White Blood Count (Complete)01/22/21White Blood Count (Complete)01/21/21White Blood Count (Complete)01/09/21White Blood Count (Complete)05/20/20White Blood Count (Complete)05/19/20White Blood Count (Complete)05/18/20White Blood Count (Complete)05/17/20White Blood Count (Complete)05/16/20White Blood Count (Complete)05/01/20White Blood Count (Complete)03/17/20White Blood Count (Complete)03/15/20White Blood Count (Complete)03/12/20White Blood Count (Complete)03/11/20White Blood Count (Complete)03/10/20White Blood Count (Complete)03/08/20White Blood Count (Complete)10/04/19White Blood Count (Complete)09/20/19White Blood Count (Complete)07/10/19White Blood Count (Complete)07/09/19White Blood Count (Cancelled)11/26/18White Blood Count (Complete)11/26/18White Blood Count (Complete)09/26/18White Blood Count (Complete)01/10/18White Blood Count (Com plete)03/13/16White Blood Count (Complete)06/03/15White Blood Count (Complete)04/02/14RUN DATE: 02/17/23 [facility] PAGE 1 RUN TIME: [id number] RUN USER: [place] [address] Mellisa Jolly MD PATIENT REPORT PATIENT: William Gay LOC: ER U #: [id number] /SX: [id number] M ROOM: RE02/17/[address]: Arcadio Molina M.D. STATUS: REG ER BED: DIS: SPEC #: [id number] EILEEN: 02/17/23 STATUS: COMP REQ #: [id number] RECD: 02/17/[address]: RONAL MASTERS DO ENTERED: 02/17/[address] [facility] [address]: [employer] PROFESSIONAL,LYDIA FAX #: ORDERED: CBC/Diff Test Result Flag Reference Verified WBC 12.78 H 4.4-10.8 10^3/uL 02/17/23 RBC 5.50 4.36-5.78 10^6/uL 02/17/23 HGB 16.5 13.5-17.5 g/dL 02/17/23 HCT 50.1 H 40.0-50.0 % 02/17/23 MCV 91 80-95 fL 02/17/23 MCH 30.0 27.0-33.0 pg 02/17/23 MCHC 32.9 32.0-36.0 % 02/17/23 RDW 13.5 11.8-14.1 % 02/17/23 Platelet Count 255 130-400 10^3/uL 02/17/23 MPV 10.3 8.0-11.0 fL 02/17/23 Neutrophils % 77.5 02/17/23 Lymphocytes % 11.3 02/17/23 Monocytes % 10.3 02/17/23 Eosinophils % 0.2 02/17/23 Basophils % 0.3 02/17/23 Immature Grans % 0.4 02/17/23 Nucleated RBC 0.0 0.0-0.3 % 02/17/23 Absolute Neutrophil Count 9.90 H 1.2-6.7 10^3/uL 02/17/23 Absolute Lymphocyte Count 1.44 1.2-3.4 10^3/uL 02/17/23 Absolute Monocyte Count 1.32 H 0.1-0.8 10^3/uL 02/17/23 Absolute Eosinophil Count 0.03 0.0-0.7 10^3/uL 02/17/23 Absolute Basophil Count 0.04 0.0-0.2 10^3/uL Patient: Hevey,William R LABORATORY Acct#[id number] Unit#[id number] 1.32 H 0.1-0.8 10^3/uL 02/17/23 Absolute Eosinophil Count 0.03 0.0-0.7 10^3/uL 02/17/23 Absolute Basophil Count 0.04 0.0-0.2 10^3/uL 02/17/23 Patient: William Gay LABORATORY Acct#[id number] Unit#[id number] Exam Narrative Exam Narrative: On reexamination the patient still has bilateral rhonchi much improved from the examination done to have Dr. Masters which showed decreased breath sounds bilaterally Discharge Plan Disposition Patient Disposition: Admit to [facility] Condition: Improving Discharge Details Clinical Impression: COPD exacerbation, Oxygen dependent, Respiratory failure with hypoxia and hypercapnia, Mass of gastroesophageal junction Primary Care Provider: Lydia Crespo ED Provider: Arcadio Molina Home Meds and New Rx's Prescriptions: Continued naloxone 4 mg/actuation spray,non-aerosol 4 mg intranasal Q2M PRN Rx Instructions: spray 1 dose into ONE nostril; alternate nostrils w each dose until help arrives sennosides [senna] 8.6 mg tablet 8.6 mg PO BID PRN (Reason: constipation) Qty: 60 5RF Patient Comments: not on med list prednisone 10 mg tablet 10 mg PO DAILY Qty: 30 2RF clonazepam 1 mg tablet 1 mg PO BID guaifenesin 100 mg/5 mL liquid 200 mg PO Q4H PRN PRN (Reason: congestion) Qty: 1000 1RF Patient Comments: not on med list calcium carbonate [Tums] 200 mg calcium (500 mg) tablet,chewable 200 mg PO Q2H WHILE AWAKE PRN (Reason: dyspepsia) Qty: 90 1RF Patient Comments: not on med list gabapentin 300 mg tablet 300 mg PO BID fentanyl 25 mcg/hr patch 72 hour 1 patch transdermal Q72H MDD 25mcg/hr Qty: 10 0RF morphine concentrate 100 mg/5 mL (20 mg/mL) solution 10 mg PO Q2H PRN MDD 800mg PRN (Reason: pain) Qty: 500 0RF Rx Instructions: for air hunger ipratropium-albuterol 0.5 mg-3 mg(2.5 mg base)/3 mL solution for nebulization 3 ml INHALATION Q6H PRN PRN (Reason: shortness of breath or wheezing) Qty: 180 3RF ondansetron 4 mg tablet,disintegrating 4 mg PO BID Qty: 30 4RF Patient Comments: not on med list pravastatin 20 mg tablet 20 mg PO QHS Qty: 10 0RF pantoprazole 40 mg Tablet,Delayed Release (Dr/Ec) 40 mg PO DAILY@0730 Qty: 30 0RF montelukast 10 mg Tablet 10 mg PO DAILY acetaminophen [Tylenol] 325 mg Capsule 325 mg PO DAILY PRN budesonide-formoterol [Symbicort] 80-4.5 mcg/actuation Hfa Aerosol Inhaler 2 puff INHALATION BID Patient Comments: not on med list bupropion HCl 300 mg tablet extended release 24 hr 300 mg PO DAILY Patient Comments: Take 1 tablet by mouth once a day tamsulosin 0.4 mg capsule 0.4 mg PO HS Patient Comments: 1 tab daily guaifenesin 600 mg Tablet Extended Release 600 mg PO BID PRN prednisone 20 mg Tablet 40 mg PO DAILY Qty: 5 0RF morphine 10 mg/5 mL Solution 7.5 mg PO Q3H PRN PRN (Reason: pain) Qty: 0 0RF quetiapine 50 mg tablet 50 mg PO DAILY Qty: 30 0RF polyethylene glycol 3350 17 gram powder in packet 17 g PO BID PRN albuterol sulfate [ProAir HFA] 90 mcg/actuation Hfa Aerosol Inhaler 2 puff INHALATION Q4H WHILE AWAKE PRN Rx Instructions: Q4-6H PRN nitroglycerin 0.3 mg Tablet, Sublingual 0.3 mg SUBLINGUAL Q5-15M PRN Rx Instructions: do not exceed 3 doses per episode famotidine 10 mg Tablet 10 mg PO BID PRN benztropine 1 mg Tablet 1 mg PO QHS Patient Comments: not on med list quetiapine [Seroquel XR] 400 mg tablet extended release 24 hr 400 mg PO HS Rx Instructions: total dose 450 mg quetiapine [Seroquel XR] 50 mg tablet extended release 24 hr 50 mg PO HS Patient Comments: not on med list Rx Instructions: total dose 450 mg buprenorphine 7.5 mcg/hour patch weekly 7.5 patch transdermal
[2023-02-17] MEDS: Albuterol/Ipratropium 3 ML UPD VIAL (08:45)
[2023-02-17 09:58] LABS: Troponin I < 50 ng/L (<or=60)
[2023-02-17] MEDS: Benztropine 1 MG TAB PO ×2 (10:11→21:18)
[2023-02-17] MEDS: methylPREDNISolone SUCC 125 MG VIAL IVP (10:13)
[2023-02-17] MEDS: Enoxaparin 40 MG/0.4 ML SYR SC (10:13)
[2023-02-17] MEDS: DOXYCYCLINE 100 MG in Normal Saline 100 ML IVPB ×2 (10:13→21:15)
[2023-02-17] MEDS: Levalbuterol 1.25 MG/3 ML UPD VIAL UPD (10:45)
[2023-02-17] MEDS: buPROPion-XL 150 MG TABCR 300 MG PO (10:56)
[2023-02-17] MEDS: Gabapentin 300 MG CAP PO ×2 (10:56→20:41)
[2023-02-17] MEDS: guaiFENesin 600 MG TABCR PO (10:56)
[2023-02-17] MEDS: clonazePAM 1 MG TAB PO (10:56)
[2023-02-17] MEDS: QUEtiapine 50 MG TAB PO (10:56)
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
[2023-02-17 12:59] LABS: BE (Venous) 9 mmol/L (-2-3); HCO3 (Venous) 34 mmol/L (23-28); O2 Sat (Venous) 95 %; TCO2 (Venous) 30 mmol/L (24-29); pCO2 (Venous) 56 mmHg (41-51); pH (Venous) 7.39 (7.31-7.41); pO2 (Venous) 70 mmHg
[2023-02-17 13:51] LABS: Troponin I < 50 ng/L (<or=60)
--- NOTE | 2023-02-17 16:26 | W.PALLCONSUL ---
Date of service: 02/17/23 Time of Service: 13:45 History of Present Illness Narrative: Mr. Thomas is a 57 y/o M currently inpt at [facility] 2/2 COPD exacerbation; followed closely by PC; PMHx sig for end stage COPD, depression, anxiety, PTSD, agoraphobia, CHF w/pacemaker; newly diagnosed metastatic neoplasm, w/38cm nearly obstructing esophageal mass; William was sleeping at time of visit, did not wake w/attempts x3 w/light-moderate attempts Isaacs buprenorphine patch is on his R anterior chest, unclear of duration of patch or when last placed; previous pain management to switch to fentanyl patch, on hold per yesterday's team meeting, see PC note for more details; Isaacs pain has been up to 08/03 consistently, nurse reports he has continued these complaints, morphine w/good effect; does appear anxious at times, disoriented; tolerating fluids and medications appropriately; per staff his respiratory status is improving since return to hospital, feel returned to baseline; did have trial of BiPAP in ED, no events noted on defibrillator interrogation referral previously placed via Dr. 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; near complete esophageal obstruction, hours to days away from complete obstruction, need for FT placement for meds/water/nutrition pending pt GOC see PC note on 02/10 for updates on preferences consider transfer to [facility] pending pt preference: transfer w/FT placement - will require prolonged hospitalization/SNF placement for management; vs no FT, and likely soon need for SNF placement for hospice style management per Dr Lemus's recommendations, all meds transitioned to liquid as avail; provided medication recommendations w/ d/c recommendations to hospitalist, pharmacy to review, make changes available - please be aware that William will NOT be able to manage liquid medications at home, any changes need to be reviewed w/MECHATRONICS TECHNICIAN/CHH teams if not transferred to [facility] or SNF PCP reviewing med changes at this time (4) Mass of upper lobe of right lung: Status: Acute (5) Oxygen dependent: Status: Acute (6) Ambulatory dysfunction: Status: Chronic (7) Severe chronic obstructive pulmonary disease: Status: Chronic Assessment and plan: end stage, hospice eligible (8) Abdominal pain: Assessment and plan: please consider a CADD pump for improved pain control - buprenorphine patch d/c'd over a week ago, was to start fentanyl patch yesterday, on hold d/t confusion, see note addendum from 02/10 visit (9) Agoraphobia: Assessment and plan: Please consider William's significant MH history when working with him, preference for female providers, one on one visits, speaking slowly w/multiple breaks/pauses for him to process - per his MH counsellor his recent hallucinations/confusion episodes are likely a trauma response, need for MH engagement, potential adjustments in meds? continue Wellbutrin PO at this time (10) Altered mental status: Assessment and plan: significantly impacted by MH (11) Anxiety with depression: (12) Biventricular implantable cardioverter-defibrillator (ICD) in situ: (13) CHF (congestive heart failure): (14) Confusion: (15) Discharge planning issues: Assessment and plan: William has MECHATRONICS TECHNICIAN and CHH services, they are currently at max capacity for what they can do to help him; SNF referral applications ongoing thru MECHATRONICS TECHNICIAN, consider discharge to SNF vs returning home - if any changes made to medications (i.e. switch to liquid), he will need a plan in place for appropriate medication administration (16) Need for home health care: Assessment and plan: followed closely by MECHATRONICS TECHNICIAN, CHH and PC (17) Noncompliance with medication regimen: Assessment and plan: significant assistance from care team (18) Pain: Assessment and plan: uncontrolled see above (19) Panic anxiety syndrome: (20) PTSD (post-traumatic stress disorder): (21) Palliative care encounter: Status: Acute Assessment and plan: PC will continue to follow while inpatient PC to continue outpatient follow up w/team meeting scheduled 02/25 at 8a [employer] intermediary medicaid application pending; not eligible for hospice d/t no caregiver available, not eligible for NH placement d/t no [employer] transportation intermediary payer source; does not have HCA, not available for emergency/public guardianship - recommend discharge to local SNF ([facility] or [facility]) given Isaacs continued and anticipated ongoing decline w/increasing care needs and inability to manage at home see PC note from 02/10/23 Review of Systems Unobtainable due to mental status (sleeping) PFSH All Active Problems (Updated 02/17/23 @ 16:57 by Shanique Gonzalez NP) Palliative care encounter (Acute) Pacemaker (Acute) Left kidney mass (Acute) superior pole US ordered 01/26/23 Mass of upper lobe of right lung (Acute) by CT Mass of gastroesophageal junction (Acute) Lung nodule (Acute) Oxygen dependent (Acute) Ambulatory dysfunction (Chronic) Severe chronic obstructive pulmonary disease (Chronic) Medical History Abdominal pain pt state he has stopped smoking Acquired deformity of left hand Acute alteration in mental status Advance care planning Agoraphobia Altered mental status Ambulatory dysfunction AMS (altered mental status) Anxiety with depression Arthritis Biventricular implantable cardioverter-defibrillator (ICD) in situ Mode:DDD, Low rate 60bpm, Atrial lead: medtronic 5076, SN: [id number] 09/27/14; RV lead Medtronic 6935M SN: [id number] 09/27/14; LV lead Medtronic 4396, SN; [id number] 09/27/14 (updated 03/11/20) BPH (benign prostatic hyperplasia) Bullae Cardiomyopathy CHF (congestive heart failure) Chronic pain syndrome Cigarette smoker Cognitive impairment Confusion Constipation COPD (chronic obstructive pulmonary disease) COPD exacerbation Current smoker Cyst Dehydration Diabetes Diarrhea Discharge planning issues Dizziness DVT prophylaxis Elevated d-dimer Encounter for hospice care discussion Erectile dysfunction Fatigue Hallucination Hand paresthesia Heart disease History of alcohol abuse History of suicidal ideation History of tobacco abuse Hyperlipidemia Hypotension Impacted ear wax LBBB (left bundle branch block) Left rib fracture Lethargy Lung bullae Lung disease Metacarpophalangeal joint pain Musculoskeletal chest pain Musculoskeletal chest pain Need for home health care Nightmares Noncompliance with medication regimen Nonischemic dilated cardiomyopathy Orthostatic hypotension Pain Pain in right hip Panic anxiety syndrome Peripheral neuropathic pain Personal history of nicotine dependence Polysubstance abuse PTSD (post-traumatic stress disorder) Respiratory failure with hypoxia and hypercapnia Rib fracture Skin lesion Syncope Systolic and diastolic CHF, chronic Tobacco use Unintentional weight loss UTI (urinary tract infection) Surgical History AICD (automatic cardioverter/defibrillator) present Status post biventricular pacemaker Family History Mother , 2008 COPD (chronic obstructive pulmonary disease) Social History Smoking/Tobacco Use Status: Former Tobacco Use Quit Date: 03/08/22 Pack-years: 120 Smoking risk assessment performed?: Yes Alcohol Intake: former Drug use: Never Substance use type: does not use Household members: none Pets and animals: No What type of physical activity do you participate in: none Seatbelt use: always Do you feel safe at home: Yes Additional Social history: live alone Exam Narrative Exam Narrative: General: frail/ill appearing male; comfortable; sleeping, does not rouse w/loud verbal stimuli or moderate touch stimuli to feet HEENT: normocephalic, atraumatic; neck supple, no visible mass; ears/external nose WNL Resp: no respiratory distress noted; prolonged expiration phase, audible wheeze, accessory muscle use; no cough noted Ext: no pedal edema, pulse 2+ LLE PT Results Last Vital Signs Temp 98.6 F 02/17/23 14:09 Pulse 75 02/17/23 14:09 Resp 20 02/17/23 14:09 BP 120/78 02/17/23 14:09 Pulse Ox 96 02/17/23 14:09 Labs 02/17/23 05:18 02/17/23 05:18 Labs: Laboratory Results - last 24 hr 02/17/23 02/17/23 02/17/23 05:18 05:18 05:18 WBC 12.78 H RBC 5.50 Hgb 16.5 Hct 50.1 H MCV 91 MCH 30.0 MCHC 32.9 RDW 13.5 Plt Count 255 MPV 10.3 Immature Gran % 0.4 Neutrophils % 77.5 Lymphocytes % 11.3 Monocytes % 10.3 Eosinophils % 0.2 Basophils % 0.3 Nucleated RBC % 0.0 Absolute Neutrophils 9.90 H Absolute Lymphocytes 1.44 Absolute Monocytes 1.32 H Absolute Eosinophils 0.03 Absolute Basophils 0.04 VBG pH 7.28 L VBG pCO2 74 H* VBG pO2 27 VBG HCO3 35 H VBG Total CO2 31 H VBG O2 Saturation 47 VBG Base Excess 8 H Sodium 138 Potassium 4.9 Chloride 98 Carbon Dioxide 35.5 H Anion Gap 4.5 BUN 11 Creatinine 0.9 Est GFR (CKD-EPI 2020) 98.38 Glucose 166 H Calcium 9.8 Total Bilirubin 0.4 AST 17 ALT 29 Alkaline Phosphatase 93 Troponin I < 50 NT-Pro-B Natriuret Pep 317 H Total Protein 8.1 Albumin 3.7 COVID-19 Source SARS-CoV-2 (PCR) Influenza Type A (PCR) Influenza Type B (PCR) RSV (PCR) 02/17/23 02/17/23 02/17/23 05:26 08:05 08:05 WBC RBC Hgb Hct MCV MCH MCHC RDW Plt Count MPV Immature Gran % Neutrophils % Lymphocytes % Monocytes % Eosinophils % Basophils % Nucleated RBC % Absolute Neutrophils Absolute Lymphocytes Absolute Monocytes Absolute Eosinophils Absolute Basophils VBG pH 7.33 VBG pCO2 67 H* VBG pO2 32 VBG HCO3 36 H VBG Total CO2 32 H VBG O2 Saturation 59 VBG Base Excess 10 H Sodium Potassium Chloride Carbon Dioxide Anion Gap BUN Creatinine Est GFR (CKD-EPI 2020) Glucose Calcium Total Bilirubin AST ALT Alkaline Phosphatase Troponin I < 50 NT-Pro-B Natriuret Pep Total Protein Albumin COVID-19 Source Nasopharynx SARS-CoV-2 (PCR) Negative Influenza Type A (PCR) Negative Influenza Type B (PCR) Negative RSV (PCR) Negative 02/17/23 02/17/23 12:50 12:50 WBC RBC Hgb Hct MCV MCH MCHC RDW Plt Count MPV Immature Gran % Neutrophils % Lymphocytes % Monocytes % Eosinophils % Basophils % Nucleated RBC % Absolute Neutrophils Absolute Lymphocytes Absolute Monocytes Absolute Eosinophils Absolute Basophils VBG pH 7.39 VBG pCO2 56 H VBG pO2 70 VBG HCO3 34 H VBG Total CO2 30 H VBG O2 Saturation 95 VBG Base Excess 9 H Sodium Potassium Chloride Carbon Dioxide Anion Gap BUN Creatinine Est GFR (CKD-EPI 2020) Glucose Calcium Total Bilirubin AST ALT Alkaline Phosphatase Troponin I < 50 NT-Pro-B Natriuret Pep Total Protein Albumin COVID-19 Source SARS-CoV-2 (PCR) Influenza Type A (PCR) Influenza Type B (PCR) RSV (PCR)
[2023-02-17] MEDS: LORazepam 2 MG/1 ML Oral Concentrate 1 MG PO ×2 (16:53→20:41)
[2023-02-17] MEDS: Mylanta Suspension 30 ML CUP PO (17:30)
[2023-02-17] MEDS: Famotidine 20 MG TAB 10 MG PO (17:31)
[2023-02-17] MEDS: methylPREDNISolone SUCC 125 MG VIAL 60 MG IVP (17:31)
[2023-02-17] MEDS: Albuterol/Ipratropium 3 ML UPD VIAL UPD (19:08)
[2023-02-17] MEDS: Budesonide/Formoterol 80/4.5 6.9 GM 60 PUFF INH IH (20:41)
[2023-02-17] MEDS: Normal Saline Flush 10 ML SYR IVP (21:14)
[2023-02-17] MEDS: Tamsulosin 0.4 MG CAPCR PO (21:18)
[2023-02-17] MEDS: Pravastatin 20 MG TAB PO (21:18)
[2023-02-18] VITALS (16 sets, daily range): BP systolic 111–126; BP diastolic 66–77; PULSE 72–127; RESP 8–26; TEMP 36–37; O2SAT 91–96
[2023-02-18] MEDS: Normal Saline Flush 10 ML SYR IVP ×2 (01:40→17:59)
[2023-02-18] MEDS: methylPREDNISolone SUCC 125 MG VIAL 60 MG IVP ×3 (01:41→17:59)
[2023-02-18] MEDS: Albuterol/Ipratropium 3 ML UPD VIAL UPD ×4 (01:41→19:17)
[2023-02-18 06:27] LABS: Abs Immature Grans 0.04 10^3/uL (0.0-0.06); Absolute Basophil Count 0.01 10^3/uL (0.0-0.2); Absolute Lymphocyte Count 0.47 10^3/uL (1.2-3.4); Basophils % 0.1; HCT 43.6 % (40.0-50.0); HGB 14.7 g/dL (13.5-17.5); Immature Grans % 0.4; Lymphocytes % 4.2; MCH 30.1 pg (27.0-33.0); MCHC 33.7 % (32.0-36.0); MCV 89 fL (80-95); MPV 10.5 fL (8.0-11.0); Monocytes % 4.2; Neutrophils % 91.1; Platelet Count 221 10^3/uL (130-400); RBC 4.88 10^6/uL (4.36-5.78); RDW 13.3 % (11.8-14.1); RDW-SD 43.8 fL; WBC 11.08 10^3/uL (4.4-10.8)
[2023-02-18 06:34] LABS: Absolute Monocyte Count 0.47 10^3/uL (0.1-0.8); Absolute Neutrophil Count 10.09 10^3/uL (1.2-6.7)
[2023-02-18 06:47] LABS: Anion Gap 4.9 mmol/L (3-11); BUN 13 mg/dL (7-18); CO2 33.1 mmol/L (21.0-32.0); CREATININE 0.9 mg/dL (0.70-1.30); Calcium 9.6 mg/dL (8.5-10.1); Chloride 101 mmol/L (98-107); Estimated GFR 98.38 (mL/min/1.73m2); Glucose 167 mg/dL (74-106); Magnesium 2.4 mg/dL (1.8-2.4); Potassium 4.1 mmol/L (3.5-5.1); Sodium 139 mmol/L (136-145)
[2023-02-18] MEDS: LORazepam 2 MG/1 ML Oral Concentrate 1 MG PO ×4 (07:50→19:54)
[2023-02-18] MEDS: Montelukast 10 MG TAB PO (07:51)
[2023-02-18] MEDS: Pantoprazole 40 MG TABCR PO (07:51)
[2023-02-18] MEDS: buPROPion-XL 150 MG TABCR 300 MG PO (07:51)
[2023-02-18] MEDS: Gabapentin 300 MG CAP PO (07:51)
[2023-02-18] MEDS: predniSONE 10 MG TAB PO (07:51)
[2023-02-18] MEDS: QUEtiapine 50 MG TAB PO (07:52)
[2023-02-18] MEDS: Mylanta Suspension 30 ML CUP PO (08:04)
--- NOTE | 2023-02-18 09:36 | INITIAL_ITS ---
- If Service Date Differs Date of service: 02/18/23 Time of Service: 09:36 Care Management Initial Assess REASON FOR HOSPITALIZATION:: COPD exacerbation PAST MEDICAL HISTORY/PAST SURGICAL HISTORY:: All Active Problems (Updated 02/17/23 @ 16:57 by Shanique Gonzalez NP). Palliative care encounter (Acute). Pacemaker (Acute). Left kidney mass (Acute). superior pole. US ordered 01/26/23. Mass of upper lobe of right lung (Acute). by CT. Mass of gastroesophageal junction (Acute). Lung nodule (Acute). Oxygen dependent (Acute). Ambulatory dysfunction (Chronic). Severe chronic obstructive pulmonary disease (Chronic). Medical History . Abdominal pain. pt state he has stopped smoking. Acquired deformity of left hand. Acute alteration in mental status. Advance care planning. Agoraphobia. Altered mental status. Ambulatory dysfunction. AMS (altered mental status). Anxiety with depression. Arthritis. Biventricular implantable cardioverter-defibrillator (ICD) in situ. Mode:DDD, Low rate 60bpm, Atrial lead: medtronic 5076, SN: [id number] 09/27/14; RV lead Medtronic 6935M SN: [id number] 09/27/14; LV lead Medtronic 4396, SN; [id number] 09/27/14 (updated 03/11/20). BPH (benign prostatic hyperplasia). Bullae. Cardiomyopathy. CHF (congestive heart failure). Chronic pain syndrome. Cigarette smoker. Cognitive impairment. Confusion. Constipation. COPD (chronic obstructive pulmonary disease). COPD exacerbation. Current smoker. Cyst. Dehydration. Diabetes. Diarrhea. Discharge planning issues. Dizziness. DVT prophylaxis. Elevated d-dimer. Encounter for hospice care discussion. Erectile dysfunction. Fatigue. Hallucination. Hand paresthesia. Heart disease. History of alcohol abuse. History of suicidal ideation. History of tobacco abuse. Hyperlipidemia. Hypotension. Impacted ear wax. LBBB (left bundle branch block). Left rib fracture. Lethargy. Lung bullae. Lung disease. Metacarpophalangeal joint pain. Musculoskeletal chest pain. Musculoskeletal chest pain. Need for home health care. Nightmares. Noncompliance with medication regimen. Nonischemic dilated cardiomyopathy. Orthostatic hypotension. Pain. Pain in right hip. Panic anxiety syndrome. Peripheral neuropathic pain. Personal history of nicotine dependence. Polysubstance abuse. PTSD (post-traumatic stress disorder). Respiratory failure with hypoxia and hypercapnia. Rib fracture. Skin lesion. Syncope. Systolic and diastolic CHF, chronic. Tobacco use. Unintentional weight loss. UTI (urinary tract infection). Surgical History . AICD (automatic cardioverter/defibrillator) present. Status post biventricular pacemaker PREVIOUS FUNCTIONAL STATUS/SOCIAL/FAMILY SUPPORTS:: William lives alone in a two story home in [place], [place]. 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 He previously enjoyed hunting, fishing, target shooting, and wood working, but his recreation has been reduced due to his declining health. He is supported by RADIOLOGY PHYSICIAN ASSISTANT in the community, and he is closely followed by Palliative care. CURRENT FUNCTIONAL STATUS:: William is sitting up in bed, talking with Jocy from Palliative via phone when CM met with him. Jocy voiced to this writer technical publications that the HCA listed in his chart is not valid because she is his car body designer. A Surgical consult was done and the recommendation is a feeding tube if he wants to pursue treatment. CM discussed in length with William that SNF placement will be needed following the intervention for feeding tube management. Patient verbalises a wareness of the recommendations but does not share his decision. When asked if he would like more time to think about his options, he states he's been thinking about it all day. CM reviewed with HospitalistChristie. ADVANCE DIRECTIVES:: HCA form dated 04/06/22, Toña Orosco listed as agent: INVALID Has patient been provided with info about the portal/API?: Yes Did the patient sign up for the portal?: No CODE STATUS:: Full Code INSURANCE COVERAGE / FINANCIAL ISSUES:: Medicare A&B CURRENT HOME/COMMUNITY SERVICES/EQUIPMENT:: RADIOLOGY PHYSICIAN ASSISTANT, MAHSA RN, Palliative care PRIMARY CARE PHYSICIAN:: Lorrie Crespo POTENTIAL DISCHARGE NEEDS:: SNF PATIENT/FAMILY EDUCATION NEEDS:: Review discharge instructions and limitations, discussion of self care needs including ask me three. TRANSPORTATION:: Dependent on Dispo PLAN:: William is being closely monitored and treated by Hospital Medicine. He had a surgical consult today and met with Palliative and nutrition. William may go to [facility] for a feeding tube. Plan of care to be determined. CM will follow.
[2023-02-18] MEDS: DOXYCYCLINE 100 MG in Normal Saline 100 ML IVPB ×2 (09:42→21:40)
[2023-02-18] MEDS: Enoxaparin 40 MG/0.4 ML SYR SC (09:42)
--- NOTE | 2023-02-18 09:56 | W.NUTCONSULT ---
Date of service: 02/18/23 Time of Service: 09:56 Nutritional Consult ASSESSMENT: William readmitted with COPD exacerbation with mass? of esophagus, mass of lung, mass of GE junction with 13 lbs weight loss in last 30 days(-8%) biopsy results pending. Full code. Previous referral to surgery for feeding tube. Following soft bite sized diet with poor intake. Declined lunch today. Will supplement meals with ensure clears. PMH: COPD, CHF, newly diagnosed with DM2 with A1C of 7.1%.? ? NUTRITIONAL DIAGNOSIS: Moderate malnutrition- Unintentional weight loss, decreased po intake secondary to abdominal pain and decreased po intake INTERVENTION: Soft bite sized diet Ensure clear TID MONITORING AND EVALUATION: weight, po intake, labs Time Spent in Nutritional Counseling and Treatment: 0
[2023-02-18] MEDS: Budesonide/Formoterol 80/4.5 6.9 GM 60 PUFF INH IH ×2 (10:38→19:17)
--- NOTE | 2023-02-18 12:31 | W.SURGCON ---
Date of service: 02/18/23 Time of Service: 12:31 Assessment and Plan Assessment and plan (1) Esophageal cancer: Status: Acute Assessment and plan: -poorly differentiated adenocarcinoma. PT has expressed that he doesn't want to do XRT/chemo. I spoke to the pt at 730pm tonight. He is more expressive adn clear. He remembered me (I did his egd). He expressed that he did want to have the feeding tube. His thinking is clear. We d/w what the procedure would entail, risks and recovery time. Pt has significant mental illness that also inhibit his care We will plan to continue w/ the plan of feeding tube placement in am at [facility]. (2) Pacemaker: Status: Acute (3) Mass of upper lobe of right lung: Status: Acute (4) Lung nodule: Status: Acute (5) Oxygen dependent: Status: Acute (6) Severe chronic obstructive pulmonary disease: Status: Chronic (7) Ambulatory dysfunction: (8) Anxiety with depression: (9) Biventricular implantable cardioverter-defibrillator (ICD) in situ: (10) BPH (benign prostatic hyperplasia): (11) Bullae: (12) Cardiomyopathy: (13) CHF (congestive heart failure): (14) Chronic pain syndrome: History of Present Illness Narrative: Pt seen and examined. When I had last spoke to the pt he had indicated that he did not want treatment for his obstructing esophgeal cancer. However, he did want to try to maximize his time left, and did want a feeding tube for at least fluids and medications. Today when I went to see the pt, he is confused and not able to make decisions. Labs/cxr and abg reviewed. Morphine and ativan was held to see if this made any improvement. feeding tube scheduled at [facility] at 9:30am. Pt needs to be there at 9am. paperwork completed. It has been d/w the pt what needs to be done for home care. PT has been in able to care for himself at home just w/ his O2 needs. It has been d/w that he would need to go into a SNF if he has the feeding tube, and pt professed understanding. PFSH All Active Problems (Updated 02/18/23 @ 17:20 by Michelle Lemus DO) Esophageal cancer (Acute) obstructing poorly differentiating pt has stated that he would not XRT or chemo Palliative care encounter (Acute) Pacemaker (Acute) Left kidney mass (Acute) superior pole US ordered 01/26/23 Mass of upper lobe of right lung (Acute) by CT Lung nodule (Acute) Oxygen dependent (Acute) Ambulatory dysfunction (Chronic) Severe chronic obstructive pulmonary disease (Chronic) Medical History Abdominal pain pt state he has stopped smoking Acquired deformity of left hand Acute alteration in mental status Advance care planning Agoraphobia Altered mental status Ambulatory dysfunction AMS (altered mental status) Anxiety with depression Arthritis Biventricular implantable cardioverter-defibrillator (ICD) in situ Mode:DDD, Low rate 60bpm, Atrial lead: medtronic 5076, SN: [id number] 09/27/14; RV lead Medtronic 6935M SN: [id number] 09/27/14; LV lead Medtronic 4396, SN; TRACIE [id number] 09/27/14 (updated 03/11/20) BPH (benign prostatic hyperplasia) Bullae Cardiomyopathy CHF (congestive heart failure) Chronic pain syndrome Cigarette smoker Cognitive impairment Confusion Constipation COPD (chronic obstructive pulmonary disease) COPD exacerbation Current smoker Cyst Dehydration Diabetes Diarrhea Discharge planning issues Dizziness DVT prophylaxis Elevated d-dimer Encounter for hospice care discussion Erectile dysfunction Fatigue Hallucination Hand paresthesia Heart disease History of alcohol abuse History of suicidal ideation History of tobacco abuse Hyperlipidemia Hypotension Impacted ear wax LBBB (left bundle branch block) Left rib fracture Lethargy Lung bullae Lung disease Metacarpophalangeal joint pain Musculoskeletal chest pain Musculoskeletal chest pain Need for home health care Nightmares Noncompliance with medication regimen Nonischemic dilated cardiomyopathy Orthostatic hypotension Pain Pain in right hip Panic anxiety syndrome Peripheral neuropathic pain Personal history of nicotine dependence Polysubstance abuse PTSD (post-traumatic stress disorder) Respiratory failure with hypoxia and hypercapnia Rib fracture Skin lesion Syncope Systolic and diastolic CHF, chronic Tobacco use Unintentional weight loss UTI (urinary tract infection) Surgical History AICD (automatic cardioverter/defibrillator) present Status post biventricular pacemaker Family History Mother , 2008 COPD (chronic obstructive pulmonary disease) Social History (Reviewed 04/26/23 @ 16:36 by JUD Franco Smoking/Tobacco Use Status: Former Tobacco Use Quit Date: 03/08/22 Pack-years: 120 Smoking risk assessment performed?: Yes Alcohol Intake: former Drug use: Never Substance use type: does not use Household members: none Pets and animals: No What type of physical activity do you participate in: none Seatbelt use: always Do you feel safe at home: Yes Additional Social history: live alone Exam GI Other: abdomen is soft and non tender w/ good BS. He has not had any prior abdominal surgery. Results Last Vital Signs Temp 36.5 C 02/18/23 11:05 Pulse 102 H 02/18/23 11:05 Resp 24 02/18/23 11:05 BP 114/66 02/18/23 11:05 Pulse Ox 94 02/18/23 11:05 Labs 02/18/23 06:15 02/18/23 06:15 Labs: Laboratory Results - last 24 hr 02/17/23 02/17/23 02/18/23 12:50 12:50 06:15 WBC RBC Hgb Hct MCV MCH MCHC RDW Plt Count MPV Immature Gran % Neutrophils % Lymphocytes % Monocytes % Eosinophils % Basophils % Nucleated RBC % Absolute Neutrophils Absolute Lymphocytes Absolute Monocytes Absolute Eosinophils Absolute Basophils VBG pH 7.39 VBG pCO2 56 H VBG pO2 70 VBG HCO3 34 H VBG Total CO2 30 H VBG O2 Saturation 95 VBG Base Excess 9 H Sodium 139 Potassium 4.1 Chloride 101 Carbon Dioxide 33.1 H Anion Gap 4.9 BUN 13 Creatinine 0.9 Est GFR (CKD-EPI 2020) 98.38 Glucose 167 H Calcium 9.6 Magnesium 2.4 Troponin I < 50 02/18/23 06:15 WBC 11.08 H RBC 4.88 Hgb 14.7 Hct 43.6 MCV 89 MCH 30.1 MCHC 33.7 RDW 13.3 Plt Count 221 MPV 10.5 Immature Gran % 0.4 Neutrophils % 91.1 Lymphocytes % 4.2 Monocytes % 4.2 Eosinophils % 0.0 Basophils % 0.1 Nucleated RBC % 0.0 Absolute Neutrophils 10.09 H Absolute Lymphocytes 0.47 L Absolute Monocytes 0.47 Absolute Eosinophils 0.00 Absolute Basophils 0.01 VBG pH VBG pCO2 VBG pO2 VBG HCO3 VBG Total CO2 VBG O2 Saturation VBG Base Excess Sodium Potassium Chloride Carbon Dioxide Anion Gap BUN Creatinine Est GFR (CKD-EPI 2020) Glucose Calcium Magnesium Troponin I
--- NOTE | 2023-02-18 12:44 | NUR.NOTE ---
INVENTORY CONTROL SUPERVISOR at bedside. Patient hallucinating. Believes he is at the store to buy beer for the boys. States, don't tell them, it's a surprise. SPO2 92% on 3L. Verbal orders received to remove buprenorphine patch. Removed and wasted with second nurse, Elmira Cisneros. Additional orders received - see chart. Bed low/locked, side rails up x2, call light in reach. Bed alarm on. Nursing Note:
[2023-02-18] MEDS: Furosemide 100 MG/10 ML VIAL 80 MG IVP (12:54)
[2023-02-18 13:02] LABS: BE (Venous) 7 mmol/L (-2-3); HCO3 (Venous) 31 mmol/L (23-28); O2 Sat (Venous) 97 %; TCO2 (Venous) 27 mmol/L (24-29); pCO2 (Venous) 44 mmHg (41-51); pH (Venous) 7.46 (7.31-7.41); pO2 (Venous) 77 mmHg
[2023-02-18 13:16] LABS: Ammonia < 10 umol/L (11-32)
--- NOTE | 2023-02-18 15:32 | W.PALPGNOTE ---
Date of service: 02/18/23 Time of Service: 15:10 Assessment and Plan Assessment and plan (1) Esophageal cancer: Status: Acute (2) Left kidney mass: Status: Acute (3) Mass of upper lobe of right lung: Status: Acute (4) Severe chronic obstructive pulmonary disease: Status: Chronic (5) Altered mental status: (6) Agoraphobia: (7) Anxiety with depression: (8) Palliative care encounter: Status: Acute Assessment and plan: I saw William briefly in his room at the hospital. He appeared to be confused at the time, stating, I do not think what were going to do tonight is right. When questioned what he was referring to, he was unable to articulate. When questioned if he was talking about having a feeding tube placed, he was unable to confirm or deny. He was talking about going downstairs and bolting the four legs down. When his phone rang, he asked me to leave the room. When I went back to see William again, Dr. Lemus, general surgeon and Christie Sanchez, hospitalist nurse practitioner were both in the room. A visitor arrived and William asked us to leave him alone with the visitor. At that time, I had a discussion with Dr. Lemus and richard at [facility], who both felt that William was more confused and unable to consent for the feeding tube that was planned for tomorrow morning. It was decided that he was not in a position to have a conversation. The plan was for Dr. Lemus and Christie Sanchez to see him later in the day and determine if he had capacity to consent for the feeding tube. Of note, his healthcare corporate account director reports that he had an episode of severe difficulty breathing today, she was very concerned about him. He is resting in bed and appears to be breathing fairly comfortably at this time. Please see Shanique Gonzalez NP note for extensive details. William has a healthcare agent named but it is his counselor and she is ethically unable to be his healthcare agent. If he lacks capacity to make decisions, it will fall to the medical team to do what is in his best interest. Palliative will continue to follow along. Subjective Subjective Interval history since last seen: I saw William briefly in his room at the hospital. He appeared to be confused at the time, stating, I do not think what were going to do tonight is right. When questioned what he was referring to, he was unable to articulate. When questioned if he was talking about having a feeding tube placed, he was unable to confirm or deny. He was talking about going downstairs and bolting the four legs down. When his phone rang, he asked me to leave the room. When I went back to see William again, Dr. Lemus, general surgeon and Christie Sanchez, hospitalist nurse practitioner were both in the room. A visitor arrived and William asked us to leave him alone with the visitor. At that time, I had a discussion with Dr. Lemus and richard at [facility], who both felt that William was more confused and unable to consent for the feeding tube that was planned for tomorrow morning. It was decided that he was not in a position to have a conversation. The plan was for Dr. Lemus and Christie Sanchez to see him later in the day and determine if he had capacity to consent for the feeding tube. Of note, his healthcare corporate account director reports that he had an episode of severe difficulty breathing today, she was very concerned about him. He is resting in bed and appears to be breathing fairly comfortably at this time. Please see Shanique Gonzalez NP note for extensive details. William has a healthcare agent named but it is his counselor and she is ethically unable to be his healthcare agent. If he lacks capacity to make decisions, it will fall to the medical team to do what is in his best interest. Palliative will continue to follow along. Exam Narrative Exam Narrative: General: Pale, middle-aged man, laying in the hospital bed. He is pleasant and calm, appears anxious, unable to hold a conversation at this time. HEENT: Normocephalic, atraumatic. Respiratory: Respirations appear even and unlabored at present. Extremities: Moves all 4 extremities freely. Objective Last Vital Signs Temp 37 C 02/18/23 15:03 Pulse 75 02/18/23 15:03 Resp 24 02/18/23 15:03 BP 119/70 02/18/23 15:03 Pulse Ox 91 L 02/18/23 15:03 Laboratory Results - last 24 hr 02/18/23 02/18/23 02/18/23 06:15 06:15 12:50 WBC 11.08 H RBC 4.88 Hgb 14.7 Hct 43.6 MCV 89 MCH 30.1 MCHC 33.7 RDW 13.3 Plt Count 221 MPV 10.5 Immature Gran % 0.4 Neutrophils % 91.1 Lymphocytes % 4.2 Monocytes % 4.2 Eosinophils % 0.0 Basophils % 0.1 Nucleated RBC % 0.0 Absolute Neutrophils 10.09 H Absolute Lymphocytes 0.47 L Absolute Monocytes 0.47 Absolute Eosinophils 0.00 Absolute Basophils 0.01 VBG pH VBG pCO2 VBG pO2 VBG HCO3 VBG Total CO2 VBG O2 Saturation VBG Base Excess Sodium 139 Potassium 4.1 Chloride 101 Carbon Dioxide 33.1 H Anion Gap 4.9 BUN 13 Creatinine 0.9 Est GFR (CKD-EPI 2020) 98.38 Glucose 167 H Calcium 9.6 Magnesium 2.4 Ammonia < 10 L 02/18/23 12:50 WBC RBC Hgb Hct MCV MCH MCHC RDW Plt Count MPV Immature Gran % Neutrophils % Lymphocytes % Monocytes % Eosinophils % Basophils % Nucleated RBC % Absolute Neutrophils Absolute Lymphocytes Absolute Monocytes Absolute Eosinophils Absolute Basophils VBG pH 7.46 H VBG pCO2 44 VBG pO2 77 VBG HCO3 31 H VBG Total CO2 27 VBG O2 Saturation 97 VBG Base Excess 7 H Sodium Potassium Chloride Carbon Dioxide Anion Gap BUN Creatinine Est GFR (CKD-EPI 2020) Glucose Calcium Magnesium Ammonia
--- NOTE | 2023-02-18 17:22 | CHAPLAIN ---
I visited with William a few times today. He was usually sitting on the edge of his bed. He asked for help getting in touch with Shanique Gonzalez, SAMMY, from [facility], and with Toña Orosco, his counselor. I spoke with Shanique by phone and she said she would call William. I left messages for Toña letting her know William wanted to speak with her. William is scheduled to go to [facility] tomorrow morning to have a feeding tube placed. He had questions about how/if he could continue to eat food by mouth with the feeding tube and I asked his nurse to respond to those. He also asked how long will I be in this room? After checking with his nurse, I let him know that the plan is for him to be her tonight, got to [facility] in the morning, and she believed he'll be returning here after the feeding tube is place. I don't know if William spoke with Shanique or Toña later this afternoon. I will continue to visit.
[2023-02-18] MEDS: fentaNYL 25 MCG PATCH TD (19:54)
[2023-02-18] MEDS: Gabapentin 100 MG CAP 200 MG PO (19:55)
[2023-02-18] MEDS: Benztropine 1 MG TAB PO (21:13)
[2023-02-18] MEDS: Tamsulosin 0.4 MG CAPCR PO (21:13)
[2023-02-19] VITALS (10 sets, daily range): BP systolic 124–134; BP diastolic 70–84; PULSE 87–107; RESP 8–24; TEMP 36.5–36.8; O2SAT 94–99
--- NOTE | 2023-02-19 | DI.CT_ITS ---
Exam(s) CT HEAD WO EXAM: CT HEAD WO CLINICAL HISTORY: confusion. TECHNIQUE: Imaging Protocol: Axial computed tomography images with coronal and sagittal reformatted images were created and reviewed COMPARISON: CT CT HEAD WO from 02/18/2022 FINDINGS: Ventricles and Extra axial spaces: Normal in size and morphology for the patient's age. Hemorrhage: None. Cerebral parenchyma: Normal. Midline shift: None. Brainstem/Cerebellum: Normal. Calvarium: Normal. Visualized Paranasal sinuses/Mastoids: Mild mucous retention left maxillary sinus. Soft Tissues: Unremarkable. IMPRESSION: No acute intracranial process. RADIATION DOSE DELIVERED: 794.11mGy.cm Total DLP DATA REPOSITORY: All CT scans at this facility are submitted to the National Radiology Data Registry (NRDR) Dose Index Registry (DIR) with the [employer] (ACR). RADIATION OPTIMIZATION: All CT scans at this facility use at least one of these dose optimization te chniques: automated exposure control; mA and/or kV adjustment per patient size (includes targeted exa ms where dose is matched to clinical indication); or iterative reconstruction.
[2023-02-19] MEDS: Albuterol/Ipratropium 3 ML UPD VIAL UPD ×4 (01:43→19:19)
[2023-02-19] MEDS: methylPREDNISolone SUCC 125 MG VIAL 60 MG IVP ×3 (01:49→21:54)
[2023-02-19] MEDS: Levalbuterol 1.25 MG/3 ML UPD VIAL UPD (04:48)
[2023-02-19] MEDS: Nicotine 21 MG/24 HR PATCH TD (04:51)
--- NOTE | 2023-02-19 05:51 | NUR.NOTE ---
Pt with increased confusion and agitation around 3 am. Pt yelling at television and looking for house keys frantically. RN attempted redirecting pt. Pt hunched over bedside pursed lip breathing. Lung sounds wheeze. x1 levalbuterol administered. post neb wheezing cleared, but pursed lip breathing still present. VS taken and stable. O2 sat 98% on 3 L NC. records manager made aware about mental status change. records manager in to assess pt. MD Noel made aware. MD at bedside to assess pt. Pt found resting in bed with no agitation on assessment. Still A+Ox1. No new orders at this time.
[2023-02-19] MEDS: Budesonide/Formoterol 80/4.5 6.9 GM 60 PUFF INH IH ×2 (07:38→19:19)
--- NOTE | 2023-02-19 07:44 | W.PM.PROGNOT ---
Date of Service Date of service: 02/19/23 Time of Service: 07:46 Assessment and Plan Assessment and plan (1) Esophageal cancer: Status: Acute Assessment and plan: So the tube was canceled at [facility]. If the patient desires in the future it can be called and scheduled with IR at [facility]. (2) Palliative care encounter: Status: Acute (3) Oxygen dependent: Status: Acute (4) Severe chronic obstructive pulmonary disease: Status: Chronic Subjective Subjective Interval history since last seen: Patient states he needs more time to think about whether he wants the tube or not Objective Last Vital Signs Temp 36.8 C 02/19/23 07:33 Pulse 93 H 02/19/23 07:38 Resp 22 02/19/23 07:33 BP 134/70 02/19/23 07:33 Pulse Ox 95 02/19/23 07:38 Laboratory Results - last 24 hr 02/18/23 02/18/23 12:50 12:50 VBG pH 7.46 H VBG pCO2 44 VBG pO2 77 VBG HCO3 31 H VBG Total CO2 27 VBG O2 Saturation 97 VBG Base Excess 7 H Ammonia < 10 L Time Spent with Patient Time Spent with Patient: 25-34 minutes Time was spent: preparing to see the patient(eg.review tests), obtaining and/or reviewing separately otained hiistory, ordering medications,tests, procedures, referring, communicating with other health healthcare prof, indepentently interpreting results, counseling the patient and care coordination
[2023-02-19] MEDS: LORazepam 2 MG/1 ML Oral Concentrate 1 MG PO ×2 (08:54→12:18)
[2023-02-19] MEDS: Montelukast 10 MG TAB PO (08:55)
[2023-02-19] MEDS: QUEtiapine 50 MG TAB PO (08:55)
[2023-02-19] MEDS: buPROPion-XL 150 MG TABCR 300 MG PO (08:55)
[2023-02-19] MEDS: predniSONE 10 MG TAB PO (08:55)
[2023-02-19] MEDS: Gabapentin 100 MG CAP 200 MG PO ×2 (08:55→19:41)
[2023-02-19] MEDS: Pantoprazole 40 MG TABCR PO ×2 (08:56→19:41)
[2023-02-19] MEDS: DOXYCYCLINE 100 MG in Normal Saline 100 ML IVPB ×2 (10:19→21:42)
[2023-02-19] MEDS: Normal Saline Flush 10 ML SYR IVP ×3 (10:20→21:54)
[2023-02-19] MEDS: Enoxaparin 40 MG/0.4 ML SYR SC (10:42)
--- NOTE | 2023-02-19 10:47 | PDOC.CMPRO ---
- If Service Date Differs Date of service: 02/19/23 Time of Service: 10:47 Care Management Progress Note S/O: William was lying in bed when CM met with him. Anay Gandhi, Palliative/Hospice, and his RN were present in the room. William discussed his current condition, and expressed his concerns about his comorbidities that are likely terminal. He asked Dr. Gandhi how long she thinks he has left to live, and she stated that it is hard to tell, but that he likely has weeks to months, possibly less than six months. He discussed his pain, and Dr. Gandhi made suggestions for medication changes that will be supportive and help with his pain, ease of breathing, and anxiety. Per report, he may not be able to swallow well at some point, as his esophageal cancer spreads, therefore his medications are being adjusted to have as many liquid medications as possible. CM discussed his previous plan to go to a SNF for short term rehab, but at that time there were no local beds. CM has contacted the [facility] in [place], who has a male bed available. William agreed to have CM fax a referral to the [facility] for consideration. CM will follow up with the referral. His medications continue to be adjusted for comfort. CM will continue to follow. A: William is a 57 year old male admitted to [facility] on 02/17/23 for COPD exacerbation, acute on chronic hypoxemia. P: William is being closely monitored and treated by Hospital Medicine. He had a surgical consult today and met with Palliative and nutrition. William may go to [facility] for a feeding tube. Plan of care to be determined. CM will follow.
--- NOTE | 2023-02-19 12:38 | W.NUTRFU ---
Date of service: 02/19/23 Time of Service: 12:38 Nutrition Note NOTE: William is unable to meet nutrient goals by mouth. Estimated Needs: BEE x 1.3 = 1966 kcal, 90 g protein (1.2 g pro/kg) and 2000 ml fluid. If feeding tube placed over weekend, recommend following: Jevity 1.5 @55 cc /hour, flush 250 ml q 6 hours providing total 1980 kcal, 82 g protein, 1935 ml fluid Time Spent in Nutritional Counseling and Treatment: 0
--- NOTE | 2023-02-19 13:23 | W.PM.PROGNOT ---
Date of Service Date of service: 02/19/23 Time of Service: :23 Assessment and Plan Assessment and plan (1) COPD exacerbation: Status: Acute Assessment and plan: respiratory status has stabilized. He has end stage COPD with morphine PRN. Oxygen requirement 3-4 litres per minute continue respiratory inhalers Doxycycline 100 mg IV BID day 3/ Methylprednisolone 60 mg IV q8h, will start taper q12 on wednesday and wednesday, daily on wednesday, PO starting wednesday. (2) Mass of gastroesophageal junction: Status: Acute Assessment and plan: surgery was following and patient refusing PEG tube placement so procedure cancelled. will need meds transitioned to transdermal or oral liquid as he will become obstructed. started yesterday on fentanyl patch for pain which seems effective, will titrate as needed. he has oral morphine for break through pain or respiratory symptoms, will change frequency to q2h prn per palliative recommendations. (3) PTSD (post-traumatic stress disorder): Status: Acute Assessment and plan: continue home psychiatric meds makes this difficult for him to make decisions. continue to provide emotional support and assistance when needed. he is his own guardian. (4) DVT prophylaxis: Status: Acute Assessment and plan: enoxaparin daily (5) Discharge planning issues: Status: Acute Assessment and plan: palliative and case management following and working on goals of care and discharge planning. anticipate discharge to assisted facility early next week. working on converting meds to liquid over the weekend. referrals have been sent and are pending. discussed with DR Jara Subjective Subjective Patient reports: no new complaints, pain is less, tolerating liquids well and afebrile; denies nausea or shortness of breath Exam Const General: cooperative, comfortable, no acute distress and ill appearing chronically Nutritional Appearance: overweight Limitations: behavioral limitations [facility] Head: normal to inspection, normocephalic and atraumatic Ears: hearing grossly normal bilaterally Resp Effort & Inspection: able to speak in complete sentences and no audible wheezes Auscultation: diminished lung sounds and wheezes expiratory wheezes Cardio Rate: regular rate Rhythm: regular rhythm GI Inspection: normal to inspection (round, soft) Psych Speech and Movement: speech clear Affect: anxious affect Attitude: cooperative Thought Content: normal Insight: limited Judgment: limited Objective Last Vital Signs Temp 36.8 C 02/19/23 07:33 Pulse 93 H 02/19/23 07:38 Resp 22 02/19/23 07:33 BP 134/70 02/19/23 07:33 Pulse Ox 95 02/19/23 07:45 Time Spent with Patient Time Spent with Patient: 35-49 minutes Time was spent: preparing to see the patient(eg.review tests), obtaining and/or reviewing separately otained hiistory, ordering medications,tests, procedures, referring, communicating with other health continuum of care manager (Aany Gandhi MD, case management) and care coordination
[2023-02-19] MEDS: LORazepam 1 MG TAB 2 MG PO (19:42)
[2023-02-19] MEDS: Normal Saline 500 ML 30 ML IV (21:41)
[2023-02-19] MEDS: Milk of Magnesia 30 ML CUP PO (21:42)
[2023-02-19] MEDS: Benztropine 1 MG TAB PO (21:43)
[2023-02-20] VITALS (7 sets, daily range): BP systolic 109; BP diastolic 72; PULSE 81–86; RESP 8–20; TEMP 36.4; O2SAT 95–99
[2023-02-20] MEDS: Budesonide/Formoterol 80/4.5 6.9 GM 60 PUFF INH IH ×2 (08:10→19:52)
[2023-02-20] MEDS: Albuterol/Ipratropium 3 ML UPD VIAL UPD ×3 (08:30→19:52)
[2023-02-20] MEDS: Normal Saline Flush 10 ML SYR IVP ×2 (08:46→09:48)
[2023-02-20] MEDS: LORazepam 1 MG TAB 2 MG PO ×2 (08:46→23:00)
[2023-02-20] MEDS: QUEtiapine 50 MG TAB PO (08:47)
[2023-02-20] MEDS: buPROPion-XL 150 MG TABCR 300 MG PO (08:47)
[2023-02-20] MEDS: predniSONE 10 MG TAB PO (08:47)
[2023-02-20] MEDS: Pantoprazole 40 MG TABCR PO ×2 (08:47→20:48)
[2023-02-20] MEDS: Gabapentin 100 MG CAP 200 MG PO ×2 (08:48→20:48)
[2023-02-20] MEDS: methylPREDNISolone SUCC 125 MG VIAL 60 MG IVP ×2 (09:47→20:52)
[2023-02-20] MEDS: Enoxaparin 40 MG/0.4 ML SYR SC (09:48)
[2023-02-20] MEDS: DOXYCYCLINE 100 MG in Normal Saline 100 ML IVPB ×2 (09:49→20:53)
--- NOTE | 2023-02-20 11:18 | PGE_ITS ---
Date of Service Date of service: 02/20/23 Time of Service: 11:19 Assessment and Plan Assessment and plan (1) COPD exacerbation: Status: Acute Assessment and plan: respiratory status has stabilized. He has end stage COPD with morphine PRN. Oxygen requirement 3-4 litres per minute continue respiratory inhalers Doxycycline 100 mg IV BID day 3/ Methylprednisolone 60 mg IV q8h, will start taper q12 on wednesday and wednesday, daily on wednesday, PO starting wednesday. (2) Mass of gastroesophageal junction: Status: Acute Assessment and plan: surgery was following and patient refusing PEG tube placement so procedure cancelled. will need meds transitioned to transdermal or oral liquid as he will become obstructed. started yesterday on fentanyl patch for pain which seems effective, will titrate as needed. he has oral morphine for break through pain or respiratory symptoms, will change frequency to q2h prn per palliative recommendations. (3) PTSD (post-traumatic stress disorder): Status: Acute Assessment and plan: continue home psychiatric meds makes this difficult for him to make decisions. continue to provide emotional support and assistance when needed. he is his own guardian. (4) DVT prophylaxis: Status: Acute Assessment and plan: enoxaparin daily (5) Discharge planning issues: Status: Acute Assessment and plan: palliative and case management following and working on goals of care and discharge planning. [facility] next week. working on converting meds to liquid over the weekend. referrals have been sent and are pending. discussed with DR Jara Subjective Subjective Patient reports: no new complaints Exam Const General: cooperative, comfortable, no acute distress and ill appearing chronic ally Nutritional Appearance: overweight Limitations: behavioral limitations [facility] Head: normal to inspection, normocephalic and atraumatic Ears: hearing grossly normal bilaterally Resp Effort & Inspection: able to speak in complete sentences and no audible wheezes Auscultation: diminished lung sounds and wheezes expiratory wheezes Cardio Rate: regular rate Rhythm: regular rhythm GI Inspection: normal to inspection (round, soft) Psych Speech and Movement: speech clear Affect: anxious affect Attitude: cooperative Thought Content: normal Insight: limited Judgment: limited Objective Last Vital Signs Temp 36.4 C L 02/20/23 07:30 Pulse 84 02/20/23 08:31 Resp 16 02/20/23 08:31 BP 109/72 02/20/23 07:30 Pulse Ox 99 02/20/23 08:31 Time Spent with Patient Time Spent with Patient: 25-34 minutes Time was spent: preparing to see the patient(eg.review tests), obtaining and/or reviewing separately otained hiistory, ordering medications,tests, procedures, referring, communicating with other health health care facilities inspector, counseling the patient and care coordination
[2023-02-20] MEDS: Normal Saline 500 ML 30 ML IV (11:30)
[2023-02-20] MEDS: Benztropine 1 MG TAB PO (20:52)
[2023-02-21] MEDS: Albuterol/Ipratropium 3 ML UPD VIAL UPD ×4 (05:27→19:35)
[2023-02-21 06:23] LABS: HCT 46.7 % (40.0-50.0); HGB 15.8 g/dL (13.5-17.5); MCH 30.3 pg (27.0-33.0); MCHC 33.8 % (32.0-36.0); MCV 90 fL (80-95); MPV 10.4 fL (8.0-11.0); Platelet Count 203 10^3/uL (130-400); RBC 5.22 10^6/uL (4.36-5.78); RDW 13.8 % (11.8-14.1); RDW-SD 45.2 fL; WBC 11.99 10^3/uL (4.4-10.8)
[2023-02-21 07:40] VITALS: BP 125/71; PULSE 75; RESP 17; TEMP 37; O2SAT 95
[2023-02-21] MEDS: QUEtiapine 50 MG TAB PO (07:48)
[2023-02-21] MEDS: Gabapentin 100 MG CAP 200 MG PO (07:48)
[2023-02-21] MEDS: LORazepam 1 MG TAB 2 MG PO ×2 (07:48→13:59)
[2023-02-21] MEDS: buPROPion-XL 150 MG TABCR 300 MG PO (07:48)
[2023-02-21] MEDS: Pantoprazole 40 MG TABCR PO (07:48)
[2023-02-21] MEDS: predniSONE 10 MG TAB PO (07:48)
[2023-02-21] MEDS: Budesonide/Formoterol 80/4.5 6.9 GM 60 PUFF INH IH ×2 (08:28→19:35)
[2023-02-21 08:30] VITALS: PULSE 101; RESP 12; RESP 4; RESP 5; RESP 8; O2SAT 96
[2023-02-21 08:36] VITALS: PULSE 101; RESP 1; RESP 12; RESP 8; O2SAT 97
--- NOTE | 2023-02-21 10:02 | PHA.REVIEW2 ---
Pharmacy Admission Review - Admission Clinical Review (Last Updated 02/19/23 @ 12:21 by Anay Gandhi MD) DVT prophylaxis (Acute) Discharge planning issues (Acute) COPD exacerbation (Acute) Mass of gastroesophageal junction (Acute) PTSD (post-traumatic stress disorder) (Acute 09/27/15) Esophageal cancer (Acute) Palliative care encounter (Acute) Pacemaker (Acute) Left kidney mass (Acute) Mass of upper lobe of right lung (Acute) Lung nodule (Acute) Oxygen dependent (Acute) No Known Allergies Allergy (Unverified 02/04/23 14:53) Resuscitation Status Full Code Weight 75.778 kg - Comments Comments/Follow Ups: End stage COPD, oxygen requirement, on IV steroids and oral Prednisone, will check w/provider. Pain controlled, difficulty swallowing, liquid meds if possible (some can be changed over, will consult w/nursing and MD). Esophageal cancer with kidney & lung mass, palliative consult. Confused. NG tube placement was cancelled. Possible SNF - Renal Dosing Renal Dosing: BUN 13 mg/dL (7-18) 02/18/23 06:15 Creatinine 0.9 mg/dL (0.70-1.30) 02/18/23 06:15 Medications needing adjustments: Reviewed (CrCl>90ml/min) - Anticoagulation Anticoagulation: Hgb 15.8 g/dL (13.5-17.5) 02/21/23 06:14 Hct 46.7 % (40.0-50.0) 02/21/23 06:14 Plt Count 203 10^3/uL (130-400) 02/21/23 06:14 Creatinine 0.9 mg/dL (0.70-1.30) 02/18/23 06:15 DVT Prophylaxis: Reviewed Medications: Enoxaparin - Opiate Usage Evaluate Pain Scale/Pains Meds: Reviewed (Pain 7/10; Fentanyl patch, Morphine oral liquid) Scheduled Bowel Reg ordered if on Opiates?: No (Prn, last BM 02/18) - Relevant Labs Sodium 139 mmol/L (136-145) 02/18/23 06:15 Potassium 4.1 mmol/L (3.5-5.1) 02/18/23 06:15 Chloride 101 mmol/L (98-107) 02/18/23 06:15 Magnesium 2.4 mg/dL (1.8-2.4) 02/18/23 06:15 Electrolytes, C-Reactive P, ESR: Reviewed - DM Control DM Control: Glucose 167 mg/dL (74-106) H 02/18/23 06:15 DM Control: N/A - Cardiac Review Cardiac Review: Troponin I < 50 ng/L (<or=60) 02/17/23 12:50 NT-Pro-B Natriuret Pep 317 pg/mL (<300) H 02/17/23 05:18 BP, HR, EF%: Reviewed - Qtc Review QTc: Reviewed (qtc 491 (on Seroquel)) - IV to PO Switch IV Medications: Reviewed (Steroids) Antibiotic Activity - Pharmacy Antibiotic Review Pharmacy Antibiotic Activity: Reviewed, no change (Doxy IV into day#5 for COPD exacerbation, no Microbiology collected) - Antibiotic Information Antibiotic Review Info: Doxy IV into day#5 for COPD, will ask MD to deescalate; change to oral
[2023-02-21] MEDS: DOXYCYCLINE 100 MG in Normal Saline 100 ML IVPB ×2 (11:03→20:29)
[2023-02-21] MEDS: methylPREDNISolone SUCC 125 MG VIAL 60 MG IVP ×2 (11:04→20:29)
--- NOTE | 2023-02-21 12:05 | PGE_ITS ---
Date of Service Date of service: 02/21/23 Time of Service: 12:05 Assessment and Plan Assessment and plan (1) COPD exacerbation: Status: Acute Assessment and plan: respiratory status stable. He has end stage COPD with morphine PRN. Oxygen requirement 3-4 litres per minute continue respiratory inhalers Doxycycline 100 mg IV BID day 4/5 Methylprednisolone 60 mg IV q12 on wednesday and wednesday, daily on wednesday, PO starting wednesday. (2) Mass of gastroesophageal junction: Status: Acute Assessment and plan: surgery was following and patient refusing PEG tube placement so procedure cancelled. will need meds transitioned to transdermal or oral liquid as he will become obstructed. started yesterday on fentanyl patch for pain which seems effective, will titrate as needed. he has oral morphine for break through pain or respiratory symptoms, will change frequency to q2h prn per palliative recommendations. (3) PTSD (post-traumatic stress disorder): Status: Acute Assessment and plan: continue home psychiatric meds makes this difficult for him to make decisions. continue to provide emotional support and assistance when needed. he is his own guardian. (4) DVT prophylaxis: Status: Acute Assessment and plan: enoxaparin daily (5) Discharge planning issues: Status: Acute Assessment and plan: palliative and case management following and working on goals of care and discharge planning. [facility]. working on converting meds to liquid over the weekend. referrals have been sent and are pending. discussed with DR Jara Subjective Subjective Patient reports: no new complaints and afebrile Exam Const General: cooperative, comfortable, no acute distress and ill appearing chronically Nutritional Appearance: overweight Limitations: behavioral limitations [facility] Head: normal to inspection, normocephalic and atraumatic Ears: hearing grossly normal bilaterally Resp Effort & Inspection: able to speak in complete sentences and no audible wheezes Auscultation: diminished lung sounds and wheezes expiratory wheezes Cardio Rate: regular rate Rhythm: regular rhythm GI Inspection: normal to inspection (round, soft) Psych Speech and Movement: speech clear Affect: anxious affect Attitude: cooperative Thought Content: normal Insight: limited Judgment: limited Objective Last Vital Signs Temp 37 C 02/21/23 07:40 Pulse 101 H 02/21/23 08:36 Resp 12 02/21/23 08:36 BP 125/71 04/30/23 07:40 Pulse Ox 97 02/21/23 08:36 Laboratory Results - last 24 hr 02/21/23 06:14 WBC 11.99 H RBC 5.22 Hgb 15.8 Hct 46.7 MCV 90 MCH 30.3 MCHC 33.8 RDW 13.8 Plt Count 203 MPV 10.4 Time Spent with Patient Time Spent with Patient: 25-34 minutes Time was spent: preparing to see the patient(eg.review tests), obtaining and/or reviewing separately otained hiistory, ordering medications,tests, procedures and indepentently interpreting results
[2023-02-21] MEDS: Nicotine 21 MG/24 HR PATCH TD (13:58)
[2023-02-21 14:50] VITALS: PULSE 98; RESP 20; RESP 4; RESP 8; O2SAT 96
[2023-02-21 15:03] VITALS: PULSE 100; RESP 20; RESP 4; RESP 8; O2SAT 98
[2023-02-21 16:58] LABS: Streptococcus Pneumoniae Ag, U Negative (Negative)
[2023-02-21] MEDS: fentaNYL 25 MCG PATCH TD (18:15)
[2023-02-21 19:35] VITALS: PULSE 106; RESP 18; RESP 8; O2SAT 99
[2023-02-21] MEDS: Benztropine 1 MG TAB PO (20:28)
[2023-02-22] VITALS (7 sets, daily range): BP systolic 136; BP diastolic 85; PULSE 86–106; RESP 1–19; TEMP 36.7; O2SAT 95–99
[2023-02-22] MEDS: Albuterol/Ipratropium 3 ML UPD VIAL UPD ×4 (04:24→19:23)
[2023-02-22] MEDS: Budesonide/Formoterol 80/4.5 6.9 GM 60 PUFF INH IH ×2 (07:39→19:23)
[2023-02-22] MEDS: buPROPion-XL 150 MG TABCR 300 MG PO (08:16)
[2023-02-22] MEDS: predniSONE 10 MG TAB PO (08:18)
[2023-02-22] MEDS: QUEtiapine 50 MG TAB PO (08:18)
[2023-02-22] MEDS: Normal Saline Flush 10 ML SYR IVP ×2 (09:12→10:29)
[2023-02-22] MEDS: methylPREDNISolone SUCC 125 MG VIAL 60 MG IVP (10:26)
[2023-02-22] MEDS: Enoxaparin 40 MG/0.4 ML SYR SC (10:27)
[2023-02-22] MEDS: DOXYCYCLINE 100 MG in Normal Saline 100 ML IVPB (10:27)
--- NOTE | 2023-02-22 15:41 | PGE_ITS ---
Date of Service Date of service: 02/22/23 Time of Service: 15:41 Assessment and Plan Assessment and plan (1) COPD exacerbation: Status: Acute Assessment and plan: respiratory status stable. He has end stage COPD with morphine PRN. Oxygen requirement 3-4 litres per minute continue respiratory inhalers completed Doxycycline 100 mg IV BID day / prednisolone solution 40 mg daily (2) Mass of gastroesophageal junction: Status: Acute Assessment and plan: surgery was following and patient refusing PEG tube placement so procedure cancelled. meds transitioned to transdermal or oral pain managed on fentanyl patch, will titrate as needed. continue oral morphine for break through pain or respiratory symptoms (3) PTSD (post-traumatic stress disorder): Status: Acute Assessment and plan: continue home psychiatric meds makes this difficult for him to make decisions. continue to provide emotional support and assistance when needed. he is his own guardian. (4) DVT prophylaxis: Status: Acute Assessment and plan: enoxaparin daily (5) Discharge planning issues: Status: Acute Assessment and plan: palliative and case management following and working on goals of care and discharge planning. anticipate discharge to residential facility, converted meds to liquid which patient is tolerating well referrals have been sent and are pending. discussed with DR Jara Subjective Subjective Patient reports: no new complaints, tolerating liquids well, shortness of breath (at baseline) and afebrile Exam Const General: cooperative, comfortable, no acute distress and ill appearing chronically Nutritional Appearance: overweight Limitations: behavioral limitations [facility] Head: normal to inspection, normocephalic and atraumatic Ears: hearing grossly normal bilaterally Resp Effort & Inspection: able to speak in complete sentences and no audible wheezes Auscultation: diminished lung sounds and wheezes expiratory wheezes Cardio Rate: regular rate Rhythm: regular rhythm GI Inspection: normal to inspection (round, soft) Psych Speech and Movement: speech clear Affect: anxious affect Attitude: cooperative Thought Content: normal Insight: limited Judgment: limited Objective Last Vital Signs Temp 36.7 C 02/22/23 07:48 Pulse 86 02/22/23 14:16 Resp 18 02/22/23 14:16 BP 136/85 02/22/23 07:48 Pulse Ox 98 02/22/23 14:16 Laboratory Results - last 24 hr 02/19/23 04:30 Ur Strep pneumoniae Ag Negative Time Spent with Patient Time Spent with Patient: 35-49 minutes Time was spent: preparing to see the patient(eg.review tests), obtaining and/or reviewing separately otained hiistory and ordering medications,tests, procedures
--- NOTE | 2023-02-22 16:57 | CMPROGNOTE_ITS ---
- If Service Date Differs Date of service: 02/22/23 Time of Service: 16:57 Care Management Progress Note S/O: William was lying in bed when CM met with him. He stated that he isn't feeling great today. CM contacted the [facility] today, who stated that they are attempting to re arrange beds in their facility, in order to potentially accommodate William, although they have not provided a bed offer at this time. CM reviewed the plan with William to go to the [facility], and he stated that he may just want to go home. CM discussed the challenges he has been having at home, and that he has indicated that his goal is to be comfortable and have a better quality of life, which may be achieved more successfully at a facility. CM encouraged him to consider going to rehab at the [facility], and he stated that he will decide once a bed offer is presented. He agreed that he remains more stable while in the hospital, and that he may not be successful at home. CM will continue to follow. A: William is a 57 year old male admitted to [facility] on 02/17/23 for COPD exacerbation, acute on chronic hypoxemia. P: William is being closely monitored and treated by Hospital Medicine. He had a surgical consult today and met with Palliative and nutrition. William may go to [facility] for a feeding tube. Plan of care to be determined. CM will follow.
[2023-02-22] MEDS: LORazepam 1 MG TAB 2 MG PO (19:55)
[2023-02-22] MEDS: Benztropine 1 MG TAB PO (19:56)
[2023-02-23 07:05] VITALS: BP 119/82; PULSE 109; RESP 22; TEMP 37.1; O2SAT 95
[2023-02-23 07:47] VITALS: PULSE 110; RESP 8; O2SAT 96
[2023-02-23] MEDS: Albuterol/Ipratropium 3 ML UPD VIAL UPD ×3 (07:47→19:27)
[2023-02-23] MEDS: Budesonide/Formoterol 80/4.5 6.9 GM 60 PUFF INH IH ×2 (07:48→19:26)
[2023-02-23] MEDS: buPROPion-XL 150 MG TABCR 300 MG PO (07:54)
[2023-02-23] MEDS: LORazepam 1 MG TAB 2 MG PO ×2 (07:54→20:17)
[2023-02-23] MEDS: QUEtiapine 50 MG TAB PO (07:55)
[2023-02-23] MEDS: prednisoLONE SOD PHOS. Soln. 3 MG/ML 40 MG PO (07:55)
--- NOTE | 2023-02-23 10:10 | PGE_ITS ---
Date of Service Date of service: 02/23/23 Time of Service: 10:10 Assessment and Plan Assessment and plan (1) COPD exacerbation: Status: Acute Assessment and plan: respiratory status stable. He has end stage COPD with morphine PRN. Oxygen requirement 3-4 litres per minute continue respiratory inhalers completed Doxycycline 100 mg IV BID day / prednisolone solution 40 mg daily (2) Mass of gastroesophageal junction: Status: Acute Assessment and plan: surgery was following and patient refusing PEG tube placement so procedure cancelled. meds transitioned to transdermal or oral pain managed on fentanyl patch, will titrate as needed. continue oral morphine for break through pain or respiratory symptoms (3) PTSD (post-traumatic stress disorder): Status: Acute Assessment and plan: continue home psychiatric meds continue to provide emotional support and assistance when needed. He is his own guardian. (4) DVT prophylaxis: Status: Acute Assessment and plan: enoxaparin daily (5) Discharge planning issues: Status: Acute Assessment and plan: palliative and case management following and working on goals of care and disch arge planning. anticipate discharge to [facility] facility, converted meds to liquid which patient is tolerating well referrals have been sent and are pending. discussed with Dr. Cruz Subjective Subjective Patient reports: no new complaints, voiding w/o difficulty, bowel movement, shortness of breath and afebrile; denies diarrhea, nausea or vomiting Interval history since last seen: William continues to not take a shower. He is lying in his room awake alert, conversant. Exam Const General: cooperative, comfortable, no acute distress and ill appearing chronically Nutritional Appearance: overweight Limitations: behavioral limitations [facility] Head: normal to inspection, normocephalic and atraumatic Ears: hearing grossly normal bilaterally Resp Effort & Inspection: able to speak in complete sentences and no audible wheezes Auscultation: diminished lung sounds and wheezes expiratory wheezes Cardio Rate: regular rate Rhythm: regular rhythm GI Inspection: normal to inspection (round, soft) Psych Speech and Movement: speech clear Affect: anxious affect Attitude: cooperative Thought Content: normal Insight: limited Judgment: limited Objective Last Vital Signs Temp 36.7 C 02/22/23 07:48 Pulse 110 H 02/23/23 07:47 Resp 18 02/22/23 19:23 BP 136/85 02/22/23 07:48 Pulse Ox 96 02/23/23 07:47 Time Spent with Patient Time Spent with Patient: 25-34 minutes Time was spent: preparing to see the patient(eg.review tests), ordering medications,tests, procedures, referring, communicating with other health respiratory care program director, indepentently interpreting results, counseling the patient and care coordination
--- NOTE | 2023-02-23 10:31 | PDOC.CMPRO ---
- If Service Date Differs Date of service: 02/23/23 Time of Service: 10:31 Care Management Progress Note S/O: William was sitting on the edge of his bed eating breakfast when CM initially met with him. His nurse had requested that CM speak to him as he seemed confused and upset. He had been medicated shortly before the visit and was calm and pleasant when CM spoke to him. William did have questions about his disposition and CM informed him that we are still waiting to hear from [facility]. During the course of the day the nursing staff attempted to have William shower. He refused as he does not have any clean clothes. CM will pursue options for additional clothing for William. Later in the day, [facility] contacted CM and stated that they do not have an available male bed and do not anticipate having one soon. A: William is a 57 year old male admitted to [facility] on 02/17/23 for COPD exacerbation, acute on chronic hypoxemia. P: William had agreed to transfer to a SNF for further supportive care. A referral was sent to [facility] and initially they stated that they would have a male bed on Wednesday, t. Unfortunately, the bed is no longer available and they do not anticipate having one any time soon. William has been unwilling to consider placement in a facility out of the area, but this will be discussed with him again tomorrow. Final plan of care to be determined. CM will follow and support William and his discharge planning needs..
[2023-02-23 13:59] VITALS: RESP 5
[2023-02-23] MEDS: Nicotine 21 MG/24 HR PATCH TD (18:00)
[2023-02-23 19:27] VITALS: PULSE 103; RESP 20; RESP 8; O2SAT 99
[2023-02-23] MEDS: Benztropine 1 MG TAB PO (20:17)
[2023-02-24] VITALS (8 sets, daily range): BP systolic 117; BP diastolic 70; PULSE 86–108; RESP 1–20; TEMP 36.3; O2SAT 93–99
[2023-02-24] MEDS: Albuterol/Ipratropium 3 ML UPD VIAL UPD ×4 (02:19→21:06)
[2023-02-24] MEDS: LORazepam 1 MG TAB 2 MG PO ×3 (04:35→16:55)
[2023-02-24 06:58] LABS: Abs Immature Grans 0.23 10^3/uL (0.0-0.06); Absolute Basophil Count 0.06 10^3/uL (0.0-0.2); Absolute Lymphocyte Count 1.62 10^3/uL (1.2-3.4); Absolute Monocyte Count 1.59 10^3/uL (0.1-0.8); Basophils % 0.5; Eosinophils % 0.6; HCT 49.3 % (40.0-50.0); HGB 16.3 g/dL (13.5-17.5); Immature Grans % 1.8; Lymphocytes % 12.8; MCH 29.8 pg (27.0-33.0); MCHC 33.1 % (32.0-36.0); MCV 90 fL (80-95); MPV 10.5 fL (8.0-11.0); Monocytes % 12.6; Neutrophils % 71.7; Platelet Count 158 10^3/uL (130-400); RBC 5.47 10^6/uL (4.36-5.78); RDW 13.9 % (11.8-14.1); RDW-SD 45.9 fL; WBC 12.64 10^3/uL (4.4-10.8)
[2023-02-24 07:10] LABS: Absolute Eosinophil Count 0.08 10^3/uL (0.0-0.7); Absolute Neutrophil Count 9.06 10^3/uL (1.2-6.7)
[2023-02-24 07:13] LABS: Anion Gap 7.1 mmol/L (3-11); BUN 21 mg/dL (7-18); C-Reactive Protein 0.19 mg/dL (0.0-0.3); CO2 32.9 mmol/L (21.0-32.0); Calcium 8.8 mg/dL (8.5-10.1); Chloride 103 mmol/L (98-107); Glucose 152 mg/dL (74-106); Magnesium 2.2 mg/dL (1.8-2.4); Potassium 4.1 mmol/L (3.5-5.1); Sodium 143 mmol/L (136-145)
[2023-02-24] MEDS: Budesonide/Formoterol 80/4.5 6.9 GM 60 PUFF INH IH ×2 (07:33→21:06)
[2023-02-24 07:54] LABS: Diff Comment Agrees w/ Instrument; RBC Morphology Normal
[2023-02-24] MEDS: buPROPion-XL 150 MG TABCR 300 MG PO (08:07)
[2023-02-24] MEDS: prednisoLONE SOD PHOS. Soln. 3 MG/ML 40 MG PO (08:07)
[2023-02-24] MEDS: QUEtiapine 50 MG TAB PO (08:09)
--- NOTE | 2023-02-24 15:59 | PDOC.CMPRO ---
- If Service Date Differs Date of service: 02/24/23 Time of Service: 15:59 Care Management Progress Note S/O: William was lying in bed when CM met with him. He was talking with Shanique, Palliative care, and his primary RN, Eugenia. William was preparing to take a shower and CM brought him clothes provided by a donation which was given to the RN packing and wrapping supervisor from the community. He was happy about having new clothes. His RN will coordinate having his clothes washed. CM discussed placement with William, as the [facility] does not have an open bed currently. William agreed to have CM send his referral to other SNF's within the area, as long as they are accessible to his professional supports for visits during his stay. CM faxed the referral to [facility] and [facility]. CM will continue to follow. A: William is a 57 year old male admitted to [facility] on 02/17/23 for COPD exacerbation, acute on chronic hypoxemia. P: William had agreed to transfer to a SNF for further supportive care. A referral was sent to [facility] and initially they stated that they would have a male bed on Wednesday, t. Unfortunately, the bed is no longer available and they do not anticipate having one any time soon. William has been unwilling to consider placement in a facility out of the area, but this will be discussed with him again tomorrow. Final plan of care to be determined. CM will follow and support William and his discharge planning needs.
[2023-02-24] MEDS: fentaNYL 25 MCG PATCH TD (18:21)
[2023-02-24] MEDS: Nicotine 21 MG/24 HR PATCH TD (18:21)
--- NOTE | 2023-02-24 18:36 | PGE_ITS ---
Date of Service Date of service: 02/24/23 Time of Service: 14:00 Assessment and Plan Assessment and plan (1) COPD exacerbation: Status: Acute Assessment and plan: respiratory status stable. He has end stage COPD with oral morphine PRN. Oxygen requirement 3-4 litres per minute unchanged continue respiratory inhalers prednisolone solution oral 40 mg daily (2) Mass of gastroesophageal junction: Status: Acute Assessment and plan: meds transitioned to transdermal or oral pain managed on fentanyl patch, will titrate as needed. continue oral morphine for break through pain or respiratory symptoms (3) PTSD (post-traumatic stress disorder): Status: Acute Assessment and plan: continue home psychiatric meds continue to provide emotional support and assistance when needed. He is his own guardian. (4) DVT prophylaxis: Status: Acute Assessment and plan: enoxaparin daily (5) Discharge planning issues: Status: Acute Assessment and plan: palliative and case management following and working on goals of care and discharge planning. anticipate discharge to residential facility, converted meds to liquid which patient is tolerating well referrals have been sent and are pending. discussed with Dr. Cruz Subjective Subjective Patient reports: no new complaints Interval history since last seen: Seen by Palliative care and did have a shower today! Exam Const General: cooperative, comfortable, no acute distress and ill appearing chronically Nutritional Appearance: overweight Limitations: behavioral limitations [facility] Head: normal to inspection, normocephalic and atraumatic Ears: hearing grossly normal bilaterally Resp Effort & Inspection: able to speak in complete sentences and no audible wheezes Auscultation: diminished lung sounds and wheezes expiratory wheezes Cardio Rate: regular rate Rhythm: regular rhythm GI Inspection: normal to inspection (round, soft) Psych Speech and Movement: speech clear Affect: anxious affect Attitude: cooperative Thought Content: normal Insight: limited Judgment: limited Objective Last Vital Signs Temp 36.3 C L 02/24/23 08:50 Pulse 95 H 02/24/23 14:04 Resp 16 02/24/23 14:04 BP 117/70 02/24/23 08:50 Pulse Ox 97 02/24/23 14:04 Laboratory Results - last 24 hr 02/24/23 02/24/23 06:00 06:00 WBC 12.64 H RBC 5.47 Hgb 16.3 Hct 49.3 MCV 90 MCH 29.8 MCHC 33.1 RDW 13.9 Plt Count 158 MPV 10.5 Immature Gran % 1.8 Neutrophils % 71.7 Lymphocytes % 12.8 Monocytes % 12.6 Eosinophils % 0.6 Basophils % 0.5 Nucleated RBC % 0.0 Absolute Neutrophils 9.06 H Absolute Lymphocytes 1.62 Absolute Monocytes 1.59 H Absolute Eosinophils 0.08 Absolute Basophils 0.06 RBC Morphology Normal Sodium 143 Potassium 4.1 Chloride 103 Carbon Dioxide 32.9 H Anion Gap 7.1 BUN 21 H Creatinine 1.0 Est GFR (CKD-EPI 2020) 86.70 Glucose 152 H Calcium 8.8 Magnesium 2.2 C-Reactive Protein 0.19 Time Spent with Patient Time Spent with Patient: 25-34 minutes Time was spent: preparing to see the patient(eg.review tests), ordering medications,tests, procedures, referring, communicating with other health nurse care manager, indepentently interpreting results, counseling the patient and care coordination
[2023-02-24] MEDS: Normal Saline Flush 10 ML SYR IVP (20:50)
[2023-02-24] MEDS: Benztropine 1 MG TAB PO (21:28)
[2023-02-25 06:48] LABS: Absolute Basophil Count 0.06 10^3/uL (0.0-0.2); Absolute Lymphocyte Count 1.75 10^3/uL (1.2-3.4); Basophils % 0.5; Eosinophils % 0.9; HCT 47.6 % (40.0-50.0); HGB 16.1 g/dL (13.5-17.5); Immature Grans % 2.6; Lymphocytes % 15.2; MCH 30.1 pg (27.0-33.0); MCHC 33.8 % (32.0-36.0); MCV 89 fL (80-95); MPV 10.9 fL (8.0-11.0); Monocytes % 10.8; Platelet Count 156 10^3/uL (130-400); RBC 5.35 10^6/uL (4.36-5.78); RDW 13.8 % (11.8-14.1); RDW-SD 44.6 fL; WBC 11.53 10^3/uL (4.4-10.8)
[2023-02-25 07:04] LABS: Absolute Monocyte Count 1.25 10^3/uL (0.1-0.8); Absolute Neutrophil Count 8.07 10^3/uL (1.2-6.7)
[2023-02-25 07:20] LABS: Anion Gap 5.3 mmol/L (3-11); BUN 20 mg/dL (7-18); CO2 31.7 mmol/L (21.0-32.0); CREATININE 0.9 mg/dL (0.70-1.30); Calcium 8.7 mg/dL (8.5-10.1); Chloride 104 mmol/L (98-107); Estimated GFR 98.38 (mL/min/1.73m2); Glucose 122 mg/dL (74-106); Magnesium 2.1 mg/dL (1.8-2.4); Potassium 4.2 mmol/L (3.5-5.1); Sodium 141 mmol/L (136-145)
[2023-02-25 07:30] VITALS: BP 112/76; PULSE 100; RESP 18; TEMP 36.7; O2SAT 94
[2023-02-25] MEDS: buPROPion-XL 150 MG TABCR 300 MG PO (07:30)
[2023-02-25] MEDS: prednisoLONE SOD PHOS. Soln. 3 MG/ML 40 MG PO (07:31)
[2023-02-25] MEDS: QUEtiapine 50 MG TAB PO (07:31)
--- NOTE | 2023-02-25 07:44 | PCPN_ITS ---
Date of service: 02/24/23 Time of Service: 15:15 Assessment and Plan Assessment and plan (1) COPD exacerbation: Status: Acute (2) Goals of care, counseling/discussion: Status: Acute (3) Dysphagia: Status: Acute (4) Agoraphobia: Status: Acute (5) Shortness of breath on exertion: Status: Acute (6) Under care of mental health team: Status: Acute Assessment and plan: recommend psychiatric consult as available (7) Esophageal cancer: Status: Acute (8) Oxygen dependent: Status: Acute (9) Ambulatory dysfunction: Status: Chronic (10) Advance care planning: (11) Deficit of personal bathing and hygiene: Status: Acute (12) Palliative care encounter: Status: Acute Assessment and plan: - William was agreeable to a shower today, w/assistance/support provided by this provider; he participated independently w/some assistance required w/SOB; he participated independently w/some difficulty w/increased work load, able to recover appropriately w/rest and use of morphine, consider change morphine order to q1h to allow for increased frequency of dosing w/increased workload, consistent w/hospice style medicine - referrals to SNF: [facility], and [facility]; w/goal of remaining local to keep current care team on board - he continues to eat and drink, w/no reported dysphagia or complaints, continue to monitor; at this time, no feed tube will be placed; monitor for obstruction, hospice style care as needed - no MH services available to him at this time, continue all psych meds as tolerable - consider CADD pump PRN if pain becomes uncontrolled Subjective Subjective Interval history since last seen: William has been refusing to shower, change his clothes, or get cleaned up. He has agreed to change clothes if he has a totally new clothes, does not want anyone going into his home to get clothes. He has been concerned over privacy, having increased confusion, and potentially hallucinations related to people being in the room that are not there Pain control improved with fentanyl patch, continues 25 mcg, continues morphine every 2-3 hours as needed. Remains eating and drinking appropriately, preferring coffee and other fluids over water. Remains able to self transfer, not getting out of bed as much. Only getting out of bed for bathroom, denies incontinence of bowels or urine Receiving lorazepam 4 times daily with good effect. Transition to swing bed status, referrals sent to the [facility], was excepted however in bed no longer available. Health and rehab remains close to admission, CM will reach out to them to see if exception. Consider [facility]. William remains to prefer to stay in the local area to keep his care team William agrees to shower and change of new clothes available to him today Team Meetin02/25/23 - - Toña, counsellor: seems calmer, more accepting, less anxious; no social network supports available - [employer]: no updates on care, will continue to be the care management team for William; Cuca remains barrett team assistant - [facility]: need to plan for his home and what we are doing; engaging family, however William has continued to deny their involvement, I don't need them - [facility] CM team: considering swing bed status for [place] level care in hospital; co ncern is that swing bed is meant to be short term, 7-10 days; concern over insurance coverage if he uses his 20 days in the hospital -concerns over financial costs tracy w/transfer to SNF, obligations on William's end to pay these bills; concern returning home instead of remaining in facility, unsafe to return home; would not want to be a burden - on disability, consider involvement in CoA - need to show spend down for intermediate manager Medicaid application, most likely does not have the documentation to support this; Toña does have abilities to assist w/some financial paperwork access; how to start gathering information, Medicaid application may start sending him requests for more information; suggested that [employer] contact [facility] for update and ensure that they are the authorized access service representative, Una Martinez will reach out d/t Joy being out this week - Hospice not able to provide care for him in [place] d/t no payer source Exam Narrative Exam Narrative: Lying in bed at start of visit; self-transfers to bedside WC; agreeable; increased distress w/shower effort, able to self-soothe and recover w/rest, use of morphine 7.5mg w/good effect Const General: cooperative, comfortable, no acute distress and ill appearing chronically Nutritional Appearance: overweight Limitations: behavioral limitations [facility] Head: normal to inspection, normocephalic and atraumatic Ears: hearing grossly normal bilaterally Resp Other: normal respiratory effort at rest; increased RR and effort w/transfer; audible groan/wheeze w/shower effort, preference for door slightly open for breathing recovers w/rest and 3L of O2 prolonged expiration phase, accessory muscle use Cardio Other: no pedal edema GI Inspection: normal to inspection (round, soft) Psych Speech and Movement: speech clear Affect: anxious affect Attitude: cooperative Thought Content: normal Insight: limited Judgment: limited Objective Last Vital Signs Temp 97.3 F L 02/24/23 08:50 Pulse 86 02/24/23 21:06 Resp 15 02/24/23 21:06 BP 117/70 02/24/23 08:50 Pulse Ox 93 02/24/23 21:06 Laboratory Results - last 24 hr 02/24/23 02/25/23 02/25/23 06:00 06:15 06:15 WBC 12.64 H 11.53 H RBC 5.47 5.35 Hgb 16.3 16.1 Hct 49.3 47.6 MCV 90 89 MCH 29.8 30.1 MCHC 33.1 33.8 RDW 13.9 13.8 Plt Count 158 156 MPV 10.5 10.9 Immature Gran % 1.8 2.6 Neutrophils % 71.7 70.0 Lymphocytes % 12.8 15.2 Monocytes % 12.6 10.8 Eosinophils % 0.6 0.9 Basophils % 0.5 0.5 Nucleated RBC % 0.0 0.0 Absolute Neutrophils 9.06 H 8.07 H Absolute Lymphocytes 1.62 1.75 Absolute Monocytes 1.59 H 1.25 H Absolute Eosinophils 0.08 0.10 Absolute Basophils 0.06 0.06 RBC Morphology Normal Sodium 141 Potassium 4.2 Chloride 104 Carbon Dioxide 31.7 Anion Gap 5.3 BUN 20 H Creatinine 0.9 Est GFR (CKD-EPI 2020) 98.38 Glucose 122 H Calcium 8.7 Magnesium 2.1
[2023-02-25 07:53] VITALS: PULSE 109; RESP 8; O2SAT 97
[2023-02-25] MEDS: Albuterol/Ipratropium 3 ML UPD VIAL UPD ×3 (07:53→21:15)
[2023-02-25 07:54] VITALS: O2SAT 97
[2023-02-25] MEDS: Budesonide/Formoterol 80/4.5 6.9 GM 60 PUFF INH IH ×2 (07:54→21:15)
[2023-02-25 08:00] VITALS: RESP 18; O2SAT 94
[2023-02-25] MEDS: Enoxaparin 40 MG/0.4 ML SYR SC (09:12)
--- NOTE | 2023-02-25 10:18 | W.PALPGNOTE ---
Date of service: 02/25/23 Time of Service: 10:00 Assessment and Plan Assessment and plan (1) Deficit of personal bathing and hygiene: Status: Acute Assessment and plan: provided basic care w/hair combing and support; consider hair cut/bear trim per pt wishes in future (2) Discharge planning issues: Status: Acute (3) COPD exacerbation: Status: Acute Assessment and plan: back to baseline respiratory status (4) Goals of care, counseling/discussion: Status: Acute (5) Dysphagia: Status: Acute (6) PTSD (post-traumatic stress disorder): Status: Acute (7) Agoraphobia: Status: Acute (8) Shortness of breath on exertion: Status: Acute (9) Under care of mental health team: Status: Acute (10) Esophageal cancer: Status: Acute (11) Ambulatory dysfunction: Status: Chronic (12) Severe chronic obstructive pulmonary disease: Status: Chronic (13) Palliative care patient: Status: Inactive Assessment and plan: William will remain in [facility], potentially transitioning to swing bed status today; referrals to [facility] [place] pending, referrals to [facility] and [facility] considered; preference to remain local to keep current care team - William is agreeable to continuing in health care facilities for improved care, willing to go to SNF; - recommend psych consult as available, will reach out to Jill Crocker for additional support - continue to provide care w/hospice philosophy principles: focusing on comfort, pain management, and maintaining his dignity. - Una Martinez from [facility] confirms Medicaid application received, interview to be scheduled w/William for 03/10, connected w/ to coordinate interview; Joy listed as authorized person to contact - Code status conversations are on hold at this time, medical futility w/two doctors/provider sign off will need to be considered w/signs of decline. It is unknown when William's esophageal mass will fully obstruct and eliminate his ability to tolerate food and drink. Until that time, William should be encouraged and allowed to eat/drink whatever he chooses. At time of full obstruction, he will not be getting a feeding tube, per previous conversations (see hospitalist, PC and care team notes). At time of obstruction, he should be immediately entered into a comfort measures, end of life care. Unfortunately, at this time, it is unknown when this will occur, repeat imaging is not warranted as the harm/risk outweigh the benefit. Subjective Subjective Interval history since last seen: per nurse: Patient appears more confused, with attempting to eat pudding with [facility] earlier, continues to tolerate food and drink appropriately, eating 100%. Is describing pain 10 out of 10, continues with fentanyl patch 25 mcg and morphine 10mg every 2 as needed. Respiratory status has been stable, continues 2 L continuous, up to 3 as needed, ranging around 94%. William did have a CT scan on 02/19 to rule out brain metastases, no acute process identified per CM: Consider ICT review, ensure inclusion of all interested parties and consider all options or avenues for William's ongoing care; consider reaching out to Aniceto Crocker at [facility] for additional support; has not been participating in PT, would be concern for discharge to skilled rehab, needs skilled will need, some concerns with referrals related to insurance SNF coverage (only has Medicare at this time, LT medicaid pending, likely not eligible), and enrollment [employer]; referral sent out to all local SNF's, increased radius to [facility] and [facility] per William: Biggest complaint today is fatigue, feeling extremely tired, leg muscles are sore, substernal pain comes in waves Denies concerns or complaints with eating or drinking, denies dysphagia. Feels moving and bowels and urinating appropriately It is important to him that his symptoms are managed, including treating pain, agreeable to Cuca from [employer] visiting; happy to have new clothes; would consider getting haircut or rendon trimming if offered denies seeing or hearing things that others do not hear/see Exam Narrative Exam Narrative: General: ill appearing male, NAD; hair disheveled, comfortable; oriented to person; unable to identify place or season HEENT: normocephalic, atraumatic, hearing WNL Resp: respiration within patient's normal limits; able to speak full sentences, limited to 1-2 sentences; no audible wheeze or grunting; NC O2 in place; Ext: moves all 4 extremities; no pedal edema Psych: cooperative, speech clear; affect anxious/baseline normal; content w/delusional thinking; insight and judgment limited Objective Last Vital Signs Temp 98.1 F 02/25/23 07:30 Pulse 109 H 02/25/23 07:53 Resp 18 02/25/23 08:00 BP 112/76 02/25/23 07:30 Pulse Ox 94 02/25/23 08:00 Laboratory Results - last 24 hr 02/25/23 02/25/23 06:15 06:15 WBC 11.53 H RBC 5.35 Hgb 16.1 Hct 47.6 MCV 89 MCH 30.1 MCHC 33.8 RDW 13.8 Plt Count 156 MPV 10.9 Immature Gran % 2.6 Neutrophils % 70.0 Lymphocytes % 15.2 Monocytes % 10.8 Eosinophils % 0.9 Basophils % 0.5 Nucleated RBC % 0.0 Absolute Neutrophils 8.07 H Absolute Lymphocytes 1.75 Absolute Monocytes 1.25 H Absolute Eosinophils 0.10 Absolute Basophils 0.06 Sodium 141 Potassium 4.2 Chloride 104 Carbon Dioxide 31.7 Anion Gap 5.3 BUN 20 H Creatinine 0.9 Est GFR (CKD-EPI 2020) 98.38 Glucose 122 H Calcium 8.7 Magnesium 2.1
--- NOTE | 2023-02-25 11:04 | PDOC.CMPRO ---
- If Service Date Differs Date of service: 02/25/23 Time of Service: 11:04 Care Management Progress Note S/O: William was lying in bed when CM met with him. He stated that he is not having a good day today, and indicated that he is in a lot of pain. He stated that he saw Shanique, Palliative care, earlier today, but he was sleeping at the time of the visit, therefore couldn't recall their conversation. CM attended a team meeting this morning with his care team from the community to provide an update on his status, and his plan of care. Referrals are pending at [facility] and [facility]. CM will continue to follow. A: Wililam is a 57 year old male admitted to [facility] on 02/17/23 for COPD exacerbation, acute on chronic hypoxemia. P: William had agreed to transfer to a SNF for further supportive care. A referral was sent to [facility] and initially they stated that they would have a male bed on Wednesday, t. Unfortunately, the bed is no longer available and they do not anticipate having one any time soon. William has been unwilling to consider placement in a facility out of the area, but this will be discussed with him again tomorrow. Final plan of care to be determined. CM will follow and support William and his discharge planning needs.
--- NOTE | 2023-02-25 11:10 | PGE_ITS ---
Date of Service Date of service: 02/25/23 Time of Service: 11:10 Assessment and Plan Assessment and plan (1) COPD exacerbation: Status: Acute Assessment and plan: respiratory status stable. He has end stage COPD with oral morphine PRN. Oxygen requirement 3-4 litres per minute unchanged continue respiratory inhalers prednisolone solution oral 40 mg daily (2) Mass of gastroesophageal junction: Status: Acute Assessment and plan: meds transitioned to transdermal or oral pain managed on fentanyl patch, will titrate as needed, increased to 37 mg. continue oral morphine for break through pain or respiratory symptoms (3) PTSD (post-traumatic stress disorder): Status: Acute Assessment and plan: continue home psychiatric meds continue to provide emotional support and assistance when needed. He is his own guardian. (4) DVT prophylaxis: Status: Acute Assessment and plan: enoxaparin daily (5) Discharge planning issues: Status: Acute Assessment and plan: palliative and case management following and working on goals of care and discharge planning. anticipate discharge to retirement facility, continue liquid meds referrals have been sent and are pending. discussed with Dr. Cruz Subjective Subjective Patient reports: no new complaints, tolerating liquids well and afebrile; denies bowel movement or nausea Interval history since last seen: William is in bed with the covers pulled over him, awake when I entered the room, somewhat conversant, pleasant. Exam Const General: cooperative, comfortable, no acute distress and ill appearing chronically Nutritional Appearance: overweight Limitations: behavioral limitations [facility] Head: normal to inspection, normocephalic and atraumatic Ears: hearing grossly normal bilaterally Resp Effort & Inspection: able to speak in complete sentences and no audible wheezes Auscultation: diminished lung sounds and wheezes expiratory wheezes Cardio Rate: regular rate Rhythm: regular rhythm GI Inspection: normal to inspection (round, soft) Psych Speech and Movement: speech clear Affect: anxious affect Attitude: cooperative Thought Content: normal Insight: limited Judgment: limited Objective Last Vital Signs Temp 36.7 C 02/25/23 07:30 Pulse 109 H 02/25/23 07:53 Resp 18 02/25/23 08:00 BP 112/76 02/25/23 07:30 Pulse Ox 94 02/25/23 08:00 Laboratory Results - last 24 hr 02/25/23 02/25/23 06:15 06:15 WBC 11.53 H RBC 5.35 Hgb 16.1 Hct 47.6 MCV 89 MCH 30.1 MCHC 33.8 RDW 13.8 Plt Count 156 MPV 10.9 Immature Gran % 2.6 Neutrophils % 70.0 Lymphocytes % 15.2 Monocytes % 10.8 Eosinophils % 0.9 Basophils % 0.5 Nucleated RBC % 0.0 Absolute Neutrophils 8.07 H Absolute Lymphocytes 1.75 Absolute Monocytes 1.25 H Absolute Eosinophils 0.10 Absolute Basophils 0.06 Sodium 141 Potassium 4.2 Chloride 104 Carbon Dioxide 31.7 Anion Gap 5.3 BUN 20 H Creatinine 0.9 Est GFR (CKD-EPI 2020) 98.38 Glucose 122 H Calcium 8.7 Magnesium 2.1 Time Spent with Patient Time Spent with Patient: 25-34 minutes Time was spent: preparing to see the patient(eg.review tests), ordering medications,tests, procedures, referring, communicating with other health resident care aid, indepentently interpreting results, counseling the patient and care coordination
[2023-02-25 13:49] VITALS: PULSE 99; RESP 8; O2SAT 95
--- NOTE | 2023-02-25 18:39 | NUR.NOTE ---
Upon removal of fent patch to replace with new patch only [address] the patients GITA. JESUS Adams was a witness to the removal & placement. Nursing Note:
[2023-02-25] MEDS: Nicotine 21 MG/24 HR PATCH TD (18:43)
[2023-02-25] MEDS: Benztropine 1 MG TAB PO (21:15)
[2023-02-25] MEDS: LORazepam 1 MG TAB 2 MG PO (21:15)
[2023-02-25] MEDS: diphenhydrAMINE Elixir 25 MG/10 ML CUP PO (21:15)
[2023-02-26 01:04] VITALS: BP 114/76; PULSE 89; RESP 16; TEMP 36.6; O2SAT 95
[2023-02-26] MEDS: Albuterol/Ipratropium 3 ML UPD VIAL UPD ×4 (01:05→21:24)
[2023-02-26] MEDS: Levalbuterol 1.25 MG/3 ML UPD VIAL UPD (06:07)
[2023-02-26 06:42] LABS: Abs Immature Grans 0.26 10^3/uL (0.0-0.06); Absolute Basophil Count 0.05 10^3/uL (0.0-0.2); Absolute Eosinophil Count 0.09 10^3/uL (0.0-0.7); Absolute Lymphocyte Count 1.79 10^3/uL (1.2-3.4); Absolute Monocyte Count 1.37 10^3/uL (0.1-0.8); Basophils % 0.4; Eosinophils % 0.7; HCT 47.7 % (40.0-50.0); HGB 15.9 g/dL (13.5-17.5); Immature Grans % 2.1; Lymphocytes % 14.7; MCH 29.9 pg (27.0-33.0); MCHC 33.3 % (32.0-36.0); MCV 90 fL (80-95); MPV 10.9 fL (8.0-11.0); Monocytes % 11.2; Neutrophils % 70.9; Platelet Count 136 10^3/uL (130-400); RBC 5.32 10^6/uL (4.36-5.78); RDW 13.7 % (11.8-14.1); RDW-SD 45.1 fL; WBC 12.19 10^3/uL (4.4-10.8)
[2023-02-26 06:48] LABS: Absolute Neutrophil Count 8.64 10^3/uL (1.2-6.7)
[2023-02-26 06:54] LABS: Anion Gap 4.5 mmol/L (3-11); BUN 20 mg/dL (7-18); CO2 31.5 mmol/L (21.0-32.0); CREATININE 0.8 mg/dL (0.70-1.30); Chloride 103 mmol/L (98-107); Estimated GFR 101.95 (mL/min/1.73m2); Glucose 104 mg/dL (74-106); Magnesium 2.1 mg/dL (1.8-2.4); Potassium 3.8 mmol/L (3.5-5.1); Sodium 139 mmol/L (136-145)
[2023-02-26 08:00] VITALS: BP 113/72; PULSE 97; RESP 18; TEMP 36.8; O2SAT 92
[2023-02-26] MEDS: prednisoLONE SOD PHOS. Soln. 3 MG/ML 40 MG PO (08:02)
[2023-02-26] MEDS: QUEtiapine 50 MG TAB PO (08:03)
[2023-02-26] MEDS: buPROPion-XL 150 MG TABCR 300 MG PO (08:03)
[2023-02-26] MEDS: Budesonide/Formoterol 80/4.5 6.9 GM 60 PUFF INH IH ×2 (08:40→21:23)
[2023-02-26 08:43] VITALS: PULSE 104; RESP 12; RESP 4; RESP 5; O2SAT 95
[2023-02-26] MEDS: Enoxaparin 40 MG/0.4 ML SYR SC (09:14)
[2023-02-26 10:00] VITALS: PULSE 83; RESP 12; RESP 8; O2SAT 92
[2023-02-26] MEDS: LORazepam 1 MG TAB 2 MG PO ×2 (10:47→21:33)
--- NOTE | 2023-02-26 11:51 | PGE_ITS ---
Date of Service Date of service: 02/26/23 Time of Service: 11:52 Assessment and Plan Assessment and plan (1) COPD exacerbation: Status: Acute Assessment and plan: respiratory status stable. He has end stage COPD with oral morphine PRN. Oxygen requirement 3-4 litres per minute unchanged continue respiratory inhalers prednisolone solution oral 40 mg daily (2) Mass of gastroesophageal junction: Status: Acute Assessment and plan: meds transitioned to transdermal or oral pain managed on fentanyl patch, will titrate as needed, current 37 mcg. continue oral morphine for break through pain or respiratory symptoms (3) PTSD (post-traumatic stress disorder): Status: Acute Assessment and plan: continue home psychiatric meds continue to provide emotional support and assistance when needed. He is his own guardian. (4) DVT prophylaxis: Status: Acute Assessment and plan: enoxaparin daily (5) Discharge planning issues: Status: Acute Assessment and plan: palliative and case management following and working on goals of care and discharge planning. anticipate discharge to [facility] facility, continue liquid meds referrals have been sent and are pending. discussed with Dr. Cruz Subjective Subjective Patient reports: no new complaints, tolerating liquids well, bowel movement and afebrile; denies diarrhea, nausea or vomiting Interval history since last seen: No complaints, in his room, supine on his bed, in his usual position, alert to voice, conversant and pleasant. Exam Const General: cooperative, comfortable, no acute distress and ill appearing chronically Nutritional Appearance: overweight Limitations: behavioral limitations [facility] Head: normal to inspection, normocephalic and atraumatic Ears: hearing grossly normal bilaterally Resp Effort & Inspection: able to speak in complete sentences and no audible wheezes Auscultation: diminished lung sounds and wheezes expiratory wheezes Cardio Rate: regular rate Rhythm: regular rhythm GI Inspection: normal to inspection (round, soft) Psych Speech and Movement: speech clear Affect: anxious affect Attitude: cooperative Thought Content: normal Insight: limited Judgment: limited Objective Last Vital Signs Temp 36.8 C 02/26/23 08:00 Pulse 83 02/26/23 10:00 Resp 12 02/26/23 10:00 BP 113/72 02/26/23 08:00 Pulse Ox 92 02/26/23 10:00 Laboratory Results - last 24 hr 02/26/23 02/26/23 05:45 05:45 WBC 12.19 H RBC 5.32 Hgb 15.9 Hct 47.7 MCV 90 MCH 29.9 MCHC 33.3 RDW 13.7 Plt Count 136 MPV 10.9 Immature Gran % 2.1 Neutrophils % 70.9 Lymphocytes % 14.7 Monocytes % 11.2 Eosinophils % 0.7 Basophils % 0.4 Nucleated RBC % 0.0 Absolute Neutrophils 8.64 H Absolute Lymphocytes 1.79 Absolute Monocytes 1.37 H Absolute Eosinophils 0.09 Absolute Basophils 0.05 Sodium 139 Potassium 3.8 Chloride 103 Carbon Dioxide 31.5 Anion Gap 4.5 BUN 20 H Creatinine 0.8 Est GFR (CKD-EPI 2020) 101.95 Glucose 104 Calcium 9.0 Magnesium 2.1 Time Spent with Patient Time Spent with Patient: 25-34 minutes Time was spent: preparing to see the patient(eg.review tests), ordering medications,tests, procedures, referring, communicating with other health menagerie caretaker, indepentently interpreting results, counseling the patient and care coordination
[2023-02-26 13:19] VITALS: PULSE 108; RESP 12; RESP 4; RESP 8; O2SAT 94
[2023-02-26 15:00] VITALS: BP 100/69; PULSE 89; RESP 18; TEMP 36.4; O2SAT 95
--- NOTE | 2023-02-26 15:26 | CMPROGNOTE_ITS ---
- If Service Date Differs Date of service: 02/26/23 Time of Service: 15:27 Care Management Progress Note S/O: William was lying in bed when CM met with him. He reported that he is not feeling well today, mostly due to his pain and shortness of breath. He stated that he informed his RN, and he has been medicated for pain recently. CM called [place] and [facility] today, who are both reviewing his referral. No bed offers today for SNF. William may need to enter SWB, if he does not receive a bed offer at any facilities. He is agreeable to remaining at [facility] for SWB. CM will continue to follow. A: William is a 57 year old male admitted to [facility] on 02/17/23 for COPD exacerbation, acute on chronic hypoxemia. P: William had agreed to transfer to a SNF for further supportive care. A referral was sent to [facility] and initially they stated that they would have a male bed on Wednesday, February1st. Unfortunately, the bed is no longer available and they do not anticipate having one any time soon. William has been unwilling to consider placement in a facility out of the area, but this will be discussed with him again tomorrow. Final plan of care to be determined. CM will follow and support William and his discharge planning needs.
[2023-02-26] MEDS: Benztropine 1 MG TAB PO (21:24)
[2023-02-26] MEDS: diphenhydrAMINE Elixir 25 MG/10 ML CUP PO (21:33)
[2023-02-27] MEDS: Albuterol/Ipratropium 3 ML UPD VIAL UPD ×4 (01:01→20:08)
[2023-02-27] MEDS: Levalbuterol 1.25 MG/3 ML UPD VIAL UPD (02:59)
[2023-02-27 06:11] VITALS: BP 90/57; PULSE 89; RESP 23; TEMP 36.2; O2SAT 96
[2023-02-27 06:41] LABS: Abs Immature Grans 0.27 10^3/uL (0.0-0.06); Absolute Basophil Count 0.06 10^3/uL (0.0-0.2); Absolute Lymphocyte Count 1.66 10^3/uL (1.2-3.4); Absolute Monocyte Count 1.23 10^3/uL (0.1-0.8); Absolute Neutrophil Count 9.65 10^3/uL (1.2-6.7); Basophils % 0.5; Eosinophils % 0.5; HCT 45.5 % (40.0-50.0); HGB 15.2 g/dL (13.5-17.5); Immature Grans % 2.1; Lymphocytes % 12.8; MCH 29.8 pg (27.0-33.0); MCHC 33.4 % (32.0-36.0); MCV 89 fL (80-95); MPV 11.2 fL (8.0-11.0); Monocytes % 9.5; Neutrophils % 74.6; Platelet Count 120 10^3/uL (130-400); RDW 13.7 % (11.8-14.1); RDW-SD 44.7 fL; WBC 12.94 10^3/uL (4.4-10.8)
[2023-02-27 06:56] LABS: Absolute Eosinophil Count 0.06 10^3/uL (0.0-0.7)
[2023-02-27 07:40] VITALS: PULSE 88; RESP 8; O2SAT 95
[2023-02-27] MEDS: Budesonide/Formoterol 80/4.5 6.9 GM 60 PUFF INH IH ×2 (07:40→20:22)
[2023-02-27 08:00] VITALS: RESP 20; O2SAT 94
[2023-02-27 08:06] LABS: Anion Gap 12.3 mmol/L (3-11); BUN 16 mg/dL (7-18); CO2 23.7 mmol/L (21.0-32.0); CREATININE 0.7 mg/dL (0.70-1.30); Calcium 8.9 mg/dL (8.5-10.1); Chloride 103 mmol/L (98-107); Estimated GFR 106.14 (mL/min/1.73m2); Glucose 109 mg/dL (74-106); Potassium 4.1 mmol/L (3.5-5.1); Sodium 139 mmol/L (136-145)
[2023-02-27] MEDS: QUEtiapine 50 MG TAB PO (09:08)
[2023-02-27] MEDS: buPROPion-XL 150 MG TABCR 300 MG PO (09:08)
[2023-02-27] MEDS: Enoxaparin 40 MG/0.4 ML SYR SC (09:09)
[2023-02-27] MEDS: prednisoLONE SOD PHOS. Soln. 3 MG/ML 40 MG PO (09:09)
[2023-02-27] MEDS: LORazepam 1 MG TAB 2 MG PO ×2 (09:53→20:07)
[2023-02-27] MEDS: Nicotine 21 MG/24 HR PATCH TD (09:53)
[2023-02-27 13:39] VITALS: RESP 8
--- NOTE | 2023-02-27 14:36 | W.PM.PROGNOT ---
Date of Service Date of service: 02/27/23 Time of Service: 14:36 Assessment and Plan Assessment and plan (1) COPD exacerbation: Status: Acute Assessment and plan: respiratory status stable. He has end stage COPD with oral morphine PRN. Oxygen requirement 3-4 litres per minute unchanged continue respiratory inhalers prednisolone solution oral 40 mg daily (2) Mass of gastroesophageal junction: Status: Acute Assessment and plan: meds transitioned to transdermal or oral pain managed on fentanyl patch, will titrate as needed, current 37 mcg. continue oral morphine for break through pain or respiratory symptoms (3) PTSD (post-traumatic stress disorder): Status: Acute Assessment and plan: continue home psychiatric meds continue to provide emotional support and assistance when needed. He is his own guardian. (4) DVT prophylaxis: Status: Acute Assessment and plan: enoxaparin daily (5) Discharge planning issues: Status: Acute Assessment and plan: palliative and case management following and working on goals of care and discharge planning. anticipate discharge to long-term facility, continue liquid meds referrals have been sent and are pending. discussed with Dr. Cruz Subjective Subjective Patient reports: no new complaints, tolerating liquids well, voiding w/o difficulty, bowel movement and afebrile; denies diarrhea, nausea or vomiting Interval history since last seen: No change, states he is comfortable at time of exam, slightly confused. Exam Const General: cooperative, comfortable, no acute distress and ill appearing chronically Nutritional Appearance: overweight Limitations: behavioral limitations [facility] Head: normal to inspection, normocephalic and atraumatic Ears: hearing grossly normal bilaterally Resp Effort & Inspection: able to speak in complete sentences and no audible wheezes Auscultation: diminished lung sounds and wheezes expiratory wheezes Cardio Rate: regular rate Rhythm: regular rhythm GI Inspection: normal to inspection (round, soft) Psych Speech and Movement: speech clear Affect: anxious affect Attitude: cooperative Thought Content: normal Insight: limited Judgment: limited Objective Last Vital Signs Temp 36.2 C L 02/27/23 06:11 Pulse 88 02/27/23 07:40 Resp 20 02/27/23 08:00 BP 90/57 L 02/27/23 06:11 Pulse Ox 94 02/27/23 08:00 Laboratory Results - last 24 hr 02/27/23 02/27/23 06:26 06:26 WBC 12.94 H RBC 5.10 Hgb 15.2 Hct 45.5 MCV 89 MCH 29.8 MCHC 33.4 RDW 13.7 Plt Count 120 L MPV 11.2 H Immature Gran % 2.1 Neutrophils % 74.6 Lymphocytes % 12.8 Monocytes % 9.5 Eosinophils % 0.5 Basophils % 0.5 Nucleated RBC % 0.0 Absolute Neutrophils 9.65 H Absolute Lymphocytes 1.66 Absolute Monocytes 1.23 H Absolute Eosinophils 0.06 Absolute Basophils 0.06 Sodium 139 Potassium 4.1 Chloride 103 Carbon Dioxide 23.7 Anion Gap 12.3 H BUN 16 Creatinine 0.7 Est GFR (CKD-EPI 2020) 106.14 Glucose 109 H Calcium 8.9 Magnesium 2.0 Time Spent with Patient Time Spent with Patient: 25-34 minutes Time was spent: preparing to see the patient(eg.review tests), ordering medications,tests, procedures, referring, communicating with other health personal care aid, indepentently interpreting results, counseling the patient and care coordination
[2023-02-27] MEDS: Benztropine 1 MG TAB PO (20:07)
[2023-02-27 20:08] VITALS: RESP 7
[2023-02-27] MEDS: Acetaminophen Solution 650 MG/20.3 ML CUP PO (20:08)
[2023-02-28] VITALS (8 sets, daily range): BP systolic 105–125; BP diastolic 63–85; PULSE 83–114; RESP 1–22; TEMP 36.6–37; O2SAT 93–97
[2023-02-28] MEDS: QUEtiapine 50 MG TAB PO (07:39)
[2023-02-28] MEDS: buPROPion-XL 150 MG TABCR 300 MG PO (07:39)
[2023-02-28] MEDS: Albuterol/Ipratropium 3 ML UPD VIAL UPD ×3 (07:47→19:42)
[2023-02-28] MEDS: Budesonide/Formoterol 80/4.5 6.9 GM 60 PUFF INH IH ×2 (08:00→19:42)
[2023-02-28] MEDS: prednisoLONE SOD PHOS. Soln. 3 MG/ML 40 MG PO (10:02)
--- NOTE | 2023-02-28 10:43 | W.PM.PROGNOT ---
Date of Service Date of service: 02/28/23 Time of Service: 10:44 Assessment and Plan Assessment and plan (1) COPD exacerbation: Status: Acute Assessment and plan: respiratory status stable. He has end stage COPD with oral morphine PRN. Oxygen requirement 3-4 litres per minute unchanged continue respiratory inhalers prednisolone solution oral 40 mg daily (2) Mass of gastroesophageal junction: Status: Acute Assessment and plan: meds transitioned to transdermal or oral pain managed on fentanyl patch, will titrate as needed, current 50 mcg. continue oral morphine for break through pain or respiratory symptoms (3) Confusion: Status: Acute Assessment and plan: Nursing reports William is more confused today, he was not confused when he was examined earlier and was sleeping with stable vs later in the day - will obtain UA and check electrolytes and hemogram in the am - perhaps [facility] psychosis. (4) PTSD (post-traumatic stress disorder): Status: Acute Assessment and plan: continue home psychiatric meds continue to provide emotional support and assistance when needed. He is his own guardian. (5) DVT prophylaxis: Status: Acute Assessment and plan: enoxaparin daily (6) Discharge planning issues: Status: Acute Assessment and plan: palliative and case management following and working on goals of care and discharge planning. anticipate discharge to nursing home facility, continue liquid meds referrals have been sent and are pending. discussed with Dr. Cruz Subjective Subjective Patient reports: no new complaints, tolerating liquids well, voiding w/o difficulty, bowel movement and afebrile; denies diarrhea, nausea or vomiting Interval history since last seen: William is supine on the bed, alert to voice, conversant, in his general state of slight confusion. He is pleasant and conversant Exam Const General: cooperative, comfortable, no acute distress and ill appearing chronically Nutritional Appearance: overweight Limitations: behavioral limitations [facility] Head: normal to inspection, normocephalic and atraumatic Ears: hearing grossly normal bilaterally Resp Effort & Inspection: able to speak in complete sentences and no audible wheezes Auscultation: diminished lung sounds and wheezes expiratory wheezes Cardio Rate: regular rate Rhythm: regular rhythm GI Inspection: normal to inspection (round, soft) Psych Speech and Movement: speech clear Affect: anxious affect Attitude: cooperative Thought Content: normal Insight: limited Judgment: limited Objective Last Vital Signs Temp 36.6 C 02/28/23 06:36 Pulse 114 H 02/28/23 07:59 Resp 16 02/28/23 07:59 BP 105/63 02/28/23 06:36 Pulse Ox 94 02/28/23 07:59 Time Spent with Patient Time Spent with Patient: 35-49 minutes Time was spent: preparing to see the patient(eg.review tests), ordering medications,tests, procedures, referring, communicating with other health skin care technician, indepentently interpreting results, counseling the patient and care coordination
[2023-02-28] MEDS: Enoxaparin 40 MG/0.4 ML SYR SC (11:11)
--- NOTE | 2023-02-28 13:37 | NUR.NOTE ---
Nursing Note: Pt is AAOx2 (confused to time, including year) with intermittent confusion to place. Per shift commander this has been increasing and worsening over the last few shifts. Pt is clear and coherent with no delay in responses, though confused. Provider notified and advised that they are aware.
[2023-02-28] MEDS: fentaNYL 50 MCG PATCH TD (17:35)
[2023-02-28] MEDS: Benztropine 1 MG TAB PO (21:07)
[2023-03-01] VITALS (7 sets, daily range): BP systolic 105; BP diastolic 69; PULSE 89–100; RESP 2–18; TEMP 36.2; O2SAT 93–98
[2023-03-01 06:45] LABS: Absolute Basophil Count 0.05 10^3/uL (0.0-0.2); Absolute Eosinophil Count 0.05 10^3/uL (0.0-0.7); Absolute Lymphocyte Count 1.85 10^3/uL (1.2-3.4); Absolute Monocyte Count 1.16 10^3/uL (0.1-0.8); Basophils % 0.4; Eosinophils % 0.4; HCT 48.3 % (40.0-50.0); HGB 16.2 g/dL (13.5-17.5); Immature Grans % 1.6; Lymphocytes % 14.4; MCH 30.1 pg (27.0-33.0); MCHC 33.5 % (32.0-36.0); MCV 90 fL (80-95); MPV 11.3 fL (8.0-11.0); Neutrophils % 74.2; Platelet Count 162 10^3/uL (130-400); RBC 5.38 10^6/uL (4.36-5.78); RDW 13.8 % (11.8-14.1); RDW-SD 45.2 fL; WBC 12.87 10^3/uL (4.4-10.8)
[2023-03-01 06:51] LABS: Absolute Neutrophil Count 9.55 10^3/uL (1.2-6.7)
[2023-03-01 07:11] LABS: Anion Gap 6.2 mmol/L (3-11); BUN 13 mg/dL (7-18); CO2 31.8 mmol/L (21.0-32.0); CREATININE 0.9 mg/dL (0.70-1.30); Calcium 9.5 mg/dL (8.5-10.1); Chloride 102 mmol/L (98-107); Estimated GFR 98.38 (mL/min/1.73m2); Glucose 104 mg/dL (74-106); Magnesium 2.1 mg/dL (1.8-2.4); Potassium 3.7 mmol/L (3.5-5.1); Sodium 140 mmol/L (136-145)
[2023-03-01] MEDS: Albuterol/Ipratropium 3 ML UPD VIAL UPD ×3 (07:53→20:30)
[2023-03-01] MEDS: Budesonide/Formoterol 80/4.5 6.9 GM 60 PUFF INH IH ×2 (07:55→20:54)
[2023-03-01] MEDS: buPROPion-XL 150 MG TABCR 300 MG PO (09:25)
[2023-03-01] MEDS: QUEtiapine 50 MG TAB PO (09:25)
[2023-03-01] MEDS: Enoxaparin 40 MG/0.4 ML SYR SC (09:25)
[2023-03-01] MEDS: prednisoLONE SOD PHOS. Soln. 3 MG/ML 40 MG PO (09:26)
--- NOTE | 2023-03-01 10:25 | W.PM.PROGNOT ---
Date of Service Date of service: 03/01/23 Time of Service: 10:25 Assessment and Plan Assessment and plan (1) COPD exacerbation: Status: Acute Assessment and plan: respiratory status stable. He has end stage COPD with oral morphine PRN. Oxygen requirement 3-4 litres per minute unchanged continue respiratory inhalers prednisolone solution oral 40 mg daily (2) Mass of gastroesophageal junction: Status: Acute Assessment and plan: meds transitioned to transdermal or oral pain managed on fentanyl patch, will titrate as needed, current 50 mcg. continue oral morphine for break through pain or respiratory symptoms (3) Confusion: Status: Acute Assessment and plan: He is not confused, more than usual, when he was examined earlier and was sleeping with stable vs later in the day - CBC unremarkable today; BMP & Mag unremarkable today UA ordered but no collected since 02/28/2023 @ [id number] - call to nursing to collect - they state he has voided and retention is not a problem (4) PTSD (post-traumatic stress disorder): Status: Acute Assessment and plan: continue home psychiatric meds continue to provide emotional support and assistance when needed. He is his own guardian. (5) DVT prophylaxis: Status: Acute Assessment and plan: enoxaparin daily (6) Discharge planning issues: Status: Acute Assessment and plan: palliative and case management following and working on goals of care and discharge planning. anticipate discharge to intermediate facility, continue liquid meds referrals have been sent and are pending. discussed with Dr. Lynne Subjective Subjective Patient reports: no new complaints, tolerating a regular diet, voiding w/o difficulty, bowel movement, shortness of breath (not any more than usual) and afebrile; denies diarrhea, nausea or vomiting Exam Const General: cooperative, comfortable, no acute distress and ill appearing chronically Nutritional Appearance: overweight Limitations: behavioral limitations [facility] Head: normal to inspection, normocephalic and atraumatic Ears: hearing grossly normal bilaterally Resp Effort & Inspection: able to speak in complete sentences and no audible wheezes Auscultation: diminished lung sounds and wheezes expiratory wheezes Cardio Rate: regular rate Rhythm: regular rhythm GI Inspection: normal to inspection (round, soft) Psych Speech and Movement: speech clear Affect: anxious affect Attitude: cooperative Thought Content: normal Insight: limited Judgment: limited Objective Last Vital Signs Temp 36.2 C L 05/08/23 09:30 Pulse 89 03/01/23 09:30 Resp 16 03/01/23 09:30 BP 105/69 03/01/23 09:30 Pulse Ox 93 03/01/23 09:30 Laboratory Results - last 24 hr 03/01/23 03/01/23 05:55 05:55 WBC 12.87 H RBC 5.38 Hgb 16.2 Hct 48.3 MCV 90 MCH 30.1 MCHC 33.5 RDW 13.8 Plt Count 162 MPV 11.3 H Immature Gran % 1.6 Neutrophils % 74.2 Lymphocytes % 14.4 Monocytes % 9.0 Eosinophils % 0.4 Basophils % 0.4 Nucleated RBC % 0.0 Absolute Neutrophils 9.55 H Absolute Lymphocytes 1.85 Absolute Monocytes 1.16 H Absolute Eosinophils 0.05 Absolute Basophils 0.05 Sodium 140 Potassium 3.7 Chloride 102 Carbon Dioxide 31.8 Anion Gap 6.2 BUN 13 Creatinine 0.9 Est GFR (CKD-EPI 2020) 98.38 Glucose 104 Calcium 9.5 Magnesium 2.1 Time Spent with Patient Time Spent with Patient: 25-34 minutes Time was spent: preparing to see the patient(eg.review tests), ordering medications,tests, procedures, referring, communicating with other health acute care nurse, indepentently interpreting results, counseling the patient and care coordination
[2023-03-01] MEDS: Mylanta Suspension 30 ML CUP PO (12:49)
--- NOTE | 2023-03-01 16:16 | PCPN_ITS ---
Date of service: 03/01/23 Time of Service: 11:00 Assessment and Plan Assessment and plan (1) Confusion: Status: Acute Assessment and plan: he is less engaged w/provider compared to previous visits, refusing to answer questions - appearing to answer questions in a manner to satisfy conversation norms vs understanding - per previous review w/Ethics/state public guardian consult: medical decisions in which he is unable to participate in will be made by medical staff providing care (2) Deficit of personal bathing and hygiene: Status: Acute Assessment and plan: William is agreeable to a shower today; reviewed last weeks process which was successful w/shower, clean clothes identified as his, WC to bathroom, premediate w/albuterol and morphine, have morphine 10mg available for PRN NOW dose; was able to perform shower independently last week, help to be available if needed (3) Dysphagia: Status: Acute Assessment and plan: suspected will continue to worsen given nearly obstructed esophageal mass - ate full breakfast, 25% lunch, reported decreased appetite (4) PTSD (post-traumatic stress disorder): Status: Acute Assessment and plan: preference to avoid male providers, one on one visits as able, slow conversations w/gaps to allow for processing and questions as needed (5) Nonischemic dilated cardiomyopathy: Status: Acute (6) Agoraphobia: Status: Acute (7) Shortness of breath on exertion: Status: Acute Assessment and plan: morphine 10mg Q2h PRN - controlled over past few days, only requiring morphine for pain, see shower plan for anticipated LEIGH (8) Cardiac resynchronization therapy defibrillator ([employer]-D) in place: Status: Acute Assessment and plan: [employer] Amplica, last changed 02/13 - beginning discussions regarding turning off defibrillation component d/t futility (9) Under care of mental health team: Status: Acute Assessment and plan: f/b [employer] team meeting scheduled for Wednesday (10) Social isolation: Status: Acute (11) Esophageal cancer: Status: Acute Assessment and plan: metastatic, work-up not complete d/t pt preferences; reviewed decision not to have surgery, chemo or radiation therapies today, William agrees with previous decision - esophageal mass will likely fully obstruct any day now, would be consider imminent at time of obstruction w/likely 3 days or less at that time (12) Oxygen dependent: Status: Acute Assessment and plan: stable on 3L (13) Ambulatory dysfunction: Status: Chronic Assessment and plan: remains able to ambulate appropriately in room - recommend observation for longer walks, WC as needed for energy conservation (14) Severe chronic obstructive pulmonary disease: Status: Chronic (15) Anxiety with depression: Assessment and plan: continue Wellbutrin and Seroquel continue lorazepam PRN (16) CHF (congestive heart failure): (17) Fatigue: (18) Pain: Assessment and plan: continue fentanyl 50mcg, up titrate as needed; consider CADD pump for improved pain control, may become necessary w/obstruction continue morphine 10mg Q2h PRN (19) Unintentional weight loss: Assessment and plan: weight trends - 02/21: 167lbs, 02/17: 179lbs, 01/25: 184, 01/05: 192lbs (20) Discharge planning issues: Status: Acute Assessment and plan: currently no plan for discharge, recommend swing bed status, consider readmission upon obstruction for end of life care - reviewed case w/[facility] and MD, not comfortable taking him unless he is a DNR/I, no transfer, defibrillator turned off; need for review w/Ethics committee to review futility in this case, when appropriate for medical futility to override full code status: imminent definition - additional review: other life sustaining treatments considered futile: defibrillator, IVF, intubation, etc (21) Full code status: Status: Acute Assessment and plan: recommended to hold COLST form DNR futility at this time pending Ethics review recommended from real estate subagent to have to MDs complete documentation for futility Subjective Subjective Interval history since last seen: William continues to report, same complaints, general malaise, pain, increased difficulty articulating how he is feeling and answering questions. He is agreeable to showering today. Feels pain is okay at the moment. Continues to swallow food and liquids, increased difficulty with food, decreased appetite. per staff occupational therapist: Goal is to get him showered today, he has been looking good from a respiratory standpoint, remains stable on 3 L, requiring morphine more for pain versus dyspnea. Continues on fentanyl 50 mcg patch, received morphine once overnight and twice today. Has lorazepam as needed, has not used for over 24 hours. He is independent with personal care so it is unclear on last BM, last reported today. Most medications have been switched over to liquid, appears to be tolerating appropriately. he ate 100% of breakfast and at this time 25% of lunch, only 2 bites of sandwich. per CM: He has been declining [facility] and rehab, have not heard anything back from [facility] or [facility]. [facility] is potentially excepting him tomorrow, however they are hesitant related to his full CODE STATUS and defibrillator. He will transition to swing bed on MedSurg if not excepted upon as it is not medically necessary for him to remain on MedSurg unit per [facility] staff: Not able to accept him with full CODE STATUS or with def ibrillator turned on, would prefer to have DNR and this turned off prior to acceptance, they are not comfortable/I otherwise per Quality: Medical futility full CODE STATUS changed would not be appropriate at this time for appropriate discharge to retirement. Recommendation to remain in hospital and consider medical futility as issue arises. We will contact real estate subagent for further advice, recommend ethics committee to review per counsellor: She visited him today, he appeared less engaged, concerned over not eating as much. Did say to him I guess it is ready to close up shop; Exam Narrative Exam Narrative: General: ill appearing male, pale, NAD; hair disheveled, comfortable; awake and alert, oriented to person; unable to identify place or season HEENT: normocephalic, atraumatic, hearing WNL Resp: respiration within patient's normal limits; able to speak full sentences, limited to 1-2 sentences; no audible wheeze or grunting; NC O2 in place; Ext: moves all 4 extremities; no pedal edema Psych: cooperative/agreeable, speech clear; affect anxious/baseline normal; content w/delusional thinking; insight and judgment limited Objective Last Vital Signs Temp 97.1 F L 03/01/23 09:30 Pulse 91 H 03/01/23 15:14 Resp 14 03/01/23 15:07 BP 105/69 03/01/23 09:30 Pulse Ox 96 03/01/23 15:14 Laboratory Results - last 24 hr 03/01/23 03/01/23 05:55 05:55 WBC 12.87 H RBC 5.38 Hgb 16.2 Hct 48.3 MCV 90 MCH 30.1 MCHC 33.5 RDW 13.8 Plt Count 162 MPV 11.3 H Immature Gran % 1.6 Neutrophils % 74.2 Lymphocytes % 14.4 Monocytes % 9.0 Eosinophils % 0.4 Basophils % 0.4 Nucleated RBC % 0.0 Absolute Neutrophils 9.55 H Absolute Lymphocytes 1.85 Absolute Monocytes 1.16 H Absolute Eosinophils 0.05 Absolute Basophils 0.05 Sodium 140 Potassium 3.7 Chloride 102 Carbon Dioxide 31.8 Anion Gap 6.2 BUN 13 Creatinine 0.9 Est GFR (CKD-EPI 2020) 98.38 Glucose 104 Calcium 9.5 Magnesium 2.1
--- NOTE | 2023-03-01 16:29 | PDOC.CMPRO ---
Date of service: 03/01/23 Time of Service: 16:29 Care Management Progress Note Progress Note Text Progress Note Text: S/O: William was visiting with [facility], when CM attempted to meet with him. CM called all facilities with pending referrals today. He was declined by [facility]. [facility] has not returned the phone call, CM left multiple messages. CM called [facility] again, who stated that they may have a bed available tomorrow. [facility] provider has concerns about [facility] not having a HCA or DPOA, and his code status remaining full code. [facility] continues to follow William closely, as well as his therapist, Toña, and his [employer] team. He will likely transition to [facility] if he has no other bed offers or placement tomorrow. CM will continue to follow. A: William is a 57 year old male admitted to [facility] on 02/17/23 for COPD exacerbation, acute on chronic hypoxemia. P:??William had agreed to transfer to a SNF for further supportive care. Referrals were sent to multiple facilities in the area. ? Final plan of care to be determined.? CM will follow and support William and his discharge planning needs.
[2023-03-01] MEDS: Benztropine 1 MG TAB PO (21:46)
[2023-03-02] VITALS (10 sets, daily range): BP systolic 94–121; BP diastolic 61–83; PULSE 20–115; RESP 2–16; TEMP 36.4; O2SAT 92–97
[2023-03-02] MEDS: Albuterol/Ipratropium 3 ML UPD VIAL UPD ×2 (01:44→09:55)
[2023-03-02 02:15] LABS: Bilirubin Negative (Negative); Blood Negative (Negative); Clarity Sl Cloudy (Clear); Glucose 500 mg/dL (Negative); Ketones Negative (Negative); Leukocyte Esterase Negative (Negative); Nitrite Negative (Negative); Urobilinogen 0.2 mg/dL (Up to 0.2)
[2023-03-02] MEDS: LORazepam 1 MG TAB 2 MG PO (05:32)
[2023-03-02] MEDS: Levalbuterol 1.25 MG/3 ML UPD VIAL UPD (05:32)
[2023-03-02] MEDS: Budesonide/Formoterol 80/4.5 6.9 GM 60 PUFF INH IH (10:05)
[2023-03-02] MEDS: Enoxaparin 40 MG/0.4 ML SYR SC (10:11)
[2023-03-02] MEDS: prednisoLONE SOD PHOS. Soln. 3 MG/ML 40 MG PO (10:12)
[2023-03-02] MEDS: QUEtiapine 50 MG TAB PO (10:19)
[2023-03-02] MEDS: buPROPion-XL 150 MG TABCR 300 MG PO (10:19)
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
--- NOTE | 2023-03-02 14:43 | CHAPLAIN ---
Shanique Gonzalez NP, from Palliative Care as requested an Ethics Consult to discuss William's plan of care. The consult will be 03/03 at 1:30 p.m. William had recently returned from a shower when I visited. He was sitting up at the edge of his bed, and his lunch was on the table in front of him, untouched. William pauses before responding, for quite a while. His response to some questions don't make sense. He says he isn't hungry. William has an esophageal mass that will likely soon obstruct his airway, according to Shanique Gonzalez. For now he continues to eat soft things. There have been complications getting him admitted to a nursing facility because of his full code statue. He also has an internal sales engineer defibrillator, and one facility that may have a male bed is requesting that William not be full code if he is to be admitted there. The Ethics Consult scheduled for tomorrow will address if it is ethical to change his code status due to futility.
[2023-03-02 14:47] LABS: BE (Venous) 2 mmol/L (-2-3); HCO3 (Venous) 27 mmol/L (23-28); O2 Sat (Venous) 97 %; TCO2 (Venous) 28 mmol/L (24-29); pCO2 (Venous) 45 mmHg (41-51); pH (Venous) 7.38 (7.31-7.41); pO2 (Venous) 98 mmHg
--- NOTE | 2023-03-02 18:37 | CMPROGNOTE_ITS ---
Date of service: 03/02/23 Time of Service: 18:37 Care Management Progress Note Progress Note Text Progress Note Text: S/O: William remains inpatient at [facility] awaiting SNF placement. CM has contacted all SNF's where referrals were sent, with no bed acceptance. [facility] is considering William, although they have concerns about his code status and his lack of personal supports/HCA to help support him if his care is transitioned to end of life care. Due to his high medical needs including oxygen support, pain control and medication management, and his lack of caregiver support, he is not safe to return home at this time. He will transition to [facility] today for medical management with a goal to continue seeking a bed at a SNF locally. He is agreeable with this plan. CM will continue to follow. A: William is a 57 year old male admitted to [facility] on 02/17/23 for COPD exacerbation, acute on chronic hypoxemia. P:??William had agreed to transfer to a SNF for further supportive care. Referrals were sent to multiple facilities in the area. He has not been offered a bed at a local facility, therefore he will transition to [facility] for continued medical management and supportive care. CM will continue to inquire about SNF placement locally. CM will follow and support William and his discharge planning needs. ? MH Services (Omit if N/A) Current MH Services: ENVIRONMENTAL ENGINEERING AIDE
== END 2023-03-02 17:37 | disposition swing bed (61) | DRG 190 ==
LOC: ER 08:57 → MS 09:05
PROVIDERS: General Practice; Nurse Practitioner Acute Care; Nurse Practitioner Family; Student in an Organized Health Care Education/Training Program; Admitting Provider Internal Medicine; Emergency Provider Emergency Medicine Emergency Medical Services; PCP Nurse Practitioner Family; Visit Provider Internal Medicine
DX: J44.1 Chronic obstructive pulmonary disease with (acute) exacerbation (principal); J96.21 Acute and chronic respiratory failure with hypoxia; J96.22 Acute and chronic respiratory failure with hypercapnia; I42.8 Other cardiomyopathies; I50.42 Chronic combined systolic (congestive) and diastolic (congestive) heart failure; C16.0 Malignant neoplasm of cardia; C79.89 Secondary malignant neoplasm of other specified sites; Z95.810 Presence of automatic (implantable) cardiac defibrillator; Z99.81 Dependence on supplemental oxygen; F43.10 Post-traumatic stress disorder, unspecified; F32.A Depression, unspecified; F19.10 Other psychoactive substance abuse, uncomplicated; R41.89 Other symptoms and signs involving cognitive functions and awareness; G62.9 Polyneuropathy, unspecified; Z87.891 Personal history of nicotine dependence; N40.0 Benign prostatic hyperplasia without lower urinary tract symptoms; R10.9 Unspecified abdominal pain; F40.01 Agoraphobia with panic disorder; Z91.148 Patient's other noncompliance with medication regimen for other reason; E11.9 Type 2 diabetes mellitus without complications; R63.4 Abnormal weight loss; Z68.26 Body mass index [BMI] 26.0-26.9, adult; R13.10 Dysphagia, unspecified; R26.2 Difficulty in walking, not elsewhere classified; R44.1 Visual hallucinations; G89.3 Neoplasm related pain (acute) (chronic); R41.0 Disorientation, unspecified; R53.83 Other fatigue
CPT/HCPCS: 36410; 36415; 80048; 80053; 82805; 85027; 87637; 93005; 94640; 99285; J1650; 70450; 71045; 81003; 82140; 83735; 83880; 84484; 85025; 86140; 87899; 93010; 94664; 94667; 94668; 94760; 99222; 99232; 99233; 99238; J1940; J2930; J3490; J7512; J7614; J7620

== ENCOUNTER 2023-03-02 15:09 | Inpatient (IN) | payer MEDICARE, SELFPAY ==
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
--- NOTE | 2023-03-02 18:42 | CMPROGNOTE_ITS ---
Date of service: 03/02/23 Time of Service: 18:43 Care Management Progress Note Progress Note Text Progress Note Text: S/O: William remains inpatient at [facility] awaiting SNF placement. CM has contacted all SNF's where referrals were sent, with no bed acceptance. [facility] is considering William, although they have concerns about his code status and his lack of personal supports/HCA to help support him if his care is transitioned to end of life care. Due to his high medical needs including oxygen support, pain control and medication management, and his lack of caregiver support, he is not safe to return home at this time. He will transition to [facility] today for medical management with a goal to continue seeking a bed at a SNF locally. He is agreeable with this plan. CM will continue to follow. A: William is a 57 year old male admitted to [facility] on 02/17/23 for COPD exacerbation, acute on chronic hypoxemia. P:??William had agreed to transfer to a SNF for further supportive care. Referrals were sent to multiple facilities in the area. He has not been offered a bed at a local facility, therefore he will transition to [facility] for continued medical management and supportive care. CM will continue to inquire about SNF placement locally. CM will follow and support William and his discharge planning needs. ? 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
--- NOTE | 2023-03-02 18:43 | CM.SWINGPC ---
Date of service: 03/02/23 Time of Service: 18:43 Swingbed Plan of Care Activites/Discharge Plan of care: SWING BED PROGRAM ACTIVITIES/DISCHARGE PLAN OF CARE ACTIVITIES PLAN Date: 03/02/23 Identified Need: Activities for life enrichment during prolonged hospitalization, which has transitioned to B level of care. Intervention/Plan: Individual plan for life enrichment, including frequent visits and possible outdoor walks with staff, if available. Initials KM DISCHARGE PLAN Date: 03/02/23 Identified Need: Safe disposition to SNF or home with increased services. Intervention/Plan: MIRANDA will continue to review William's options for local placement. MIRANDA will work together with William's community care team to support William with his goals. Initials KM
--- NOTE | 2023-03-02 18:46 | CMSA_ITS ---
Date of service: 03/02/23 Time of Service: 18:46 SB Psychosocial/Act. [facility] Hospital Admission Admission Date: 02/17/23 Admission From:: Home Diagnosis:: COPD exacerbation, acute on chronic hypoxemia. Swing Bed Admission Swing Bed Admit Date:: 03/02/23 Swing Bed Level of Care: Level 1/SNF Social Supports PREVIOUS FUNCTIONAL STATUS/SOCIAL/FAMILY SUPPORTS:: William lives alone in a two story home in [place], [place]. He formerly worked for [employer], but is disabled. He previously enjoyed hunting, fishing, target shooting, and wood working, but his recreation has been reduced due to his declining health. He is supported by ELECTRICAL TECHNOLOGY INSTRUCTOR in the community, and he is closely followed by Palliative care. Prior to Admission Living Arrangements/Environment Prior to Admission:: Home, two story single family home. Education Highest Grade Completed:: unknown Work History Employment Status:: Disabled Voacation:: William worked for [employer] for many years [place]: No [place] Spouse: No Benefits Financial: Social Security and Medicare Community Community Supports/Involvement: William is closely followed by Palliative care, ELECTRICAL TECHNOLOGY INSTRUCTOR, and his therapist, Toña. Interests Hobbies:: Previous hobbies include target shooting, hunting and fishing. Table Games:: card games Outdoor Activities:: hunting/fishing, target shooting Present Functional Status Physical Abilities:: limited by supplemental O2 dependence Cognitive:: Alert, oriented to person, understands concepts Communication:: mostly clear, appropriate Sensory Systems: within normal limits Behavior:: calm, cooperative, pleasant Medical History PAST MEDICAL HISTORY/PAST SURGICAL HISTORY:: All Active Problems (Updated 02/17/23 @ 16:57 by Shanique Gonzalez NP) Palliative care encounter (Acute) Pacemaker (Acute) Left kidney mass (Acute) superior pole US ordered 01/26/23 Mass of upper lobe of right lung (Acute) by CT Mass of gastroesophageal junction (Acute) Lung nodule (Acute) Oxygen dependent (Acute) Ambulatory dysfunction (Chronic) Severe chronic obstructive pulmonary disease (Chronic) Medical History Abdominal pain pt state he has stopped smoking Acquired deformity of left hand Acute alteration in mental status Advance care planning Agoraphobia Altered mental status Ambulatory dysfunction AMS (altered mental status) Anxiety with depression Arthritis Biventricular implantable cardioverter-defibrillator (ICD) in situ Mode:DDD, Low rate 60bpm, Atrial lead: medtronic 5076, SN: [id number] 09/27/14; RV lead Medtronic 6935M SN: [id number] 09/27/14; LV lead Medtronic 4396, SN; TRACIE [id number] 09/27/14 (updated 03/11/20) BPH (benign prostatic hyperplasia) Bullae Cardiomyopathy CHF (congestive heart failure) Chronic pain syndrome Cigarette smoker Cognitive impairment Confusion Constipation COPD (chronic obstructive pulmonary disease) COPD exacerbation Current smoker Cyst Dehydration Diabetes Diarrhea Discharge planning issues Dizziness DVT prophylaxis Elevated d-dimer Encounter for hospice care discussion Erectile dysfunction Fatigue Hallucination Hand paresthesia Heart disease History of alcohol abuse History of suicidal ideation History of tobacco abuse Hyperlipidemia Hypotension Impacted ear wax LBBB (left bundle branch block) Left rib fracture Lethargy Lung bullae Lung disease Metacarpophalangeal joint pain Musculoskeletal chest pain Musculoskeletal chest pain Need for home health care Nightmares Noncompliance with medication regimen Nonischemic dilated cardiomyopathy Orthostatic hypotension Pain Pain in right hip Panic anxiety syndrome Peripheral neuropathic pain Personal history of nicotine dependence Polysubstance abuse PTSD (post-traumatic stress disorder) Respiratory failure with hypoxia and hypercapnia Rib fracture Skin lesion Syncope Systolic and diastolic CHF, chronic Tobacco use Unintentional weight loss UTI (urinary tract infection) Surgical History AICD (automatic cardioverter/defibrillator) present Status post biventricular pacemaker Admission Data Reason for Swing Bed Admission:: Continued medical management, support with supplemental O2, pain control and medication administration Discharge Plan:: William will transfer to a local SNF, if accepted and a bed is available vs return home with a resumption of services Assessment: William did not have any bed offers at local SNF's, where his care team can be active and present. He has not been able to manage his medications and maintain independence at home, and he does not have a time study observer caregiver to support him in the community. He will remain at [facility] on SWB1 receiving chcf care until he is able to transition to a local SNF or until an alternative safe discharge plan is found. He will be closely followed by Palliative care and care management while on SWB. Certified Alcohol And Drug Counselor: Clare Alexander Date Assessment was completed:: 03/02/23
[2023-03-03] MEDS: Albuterol/Ipratropium 3 ML UPD VIAL UPD ×4 (00:10→22:50)
[2023-03-03 07:17] LABS: HCT 50.3 % (40.0-50.0); HGB 16.9 g/dL (13.5-17.5); MCHC 33.6 % (32.0-36.0); MCV 89 fL (80-95); MPV 10.6 fL (8.0-11.0); Platelet Count 193 10^3/uL (130-400); RBC 5.64 10^6/uL (4.36-5.78); RDW 13.4 % (11.8-14.1); RDW-SD 43.8 fL; WBC 13.72 10^3/uL (4.4-10.8)
[2023-03-03 07:30] VITALS: BP 112/77; PULSE 99; RESP 16; TEMP 37; O2SAT 96
[2023-03-03] MEDS: Budesonide/Formoterol 80/4.5 6.9 GM 60 PUFF INH IH ×2 (08:43→22:49)
[2023-03-03 08:44] VITALS: O2SAT 97
[2023-03-03] MEDS: LORazepam 1 MG TAB 2 MG PO (12:04)
[2023-03-03] MEDS: Levalbuterol 1.25 MG/3 ML UPD VIAL UPD (12:05)
[2023-03-03 16:10] VITALS: PULSE 89; RESP 16; RESP 8; O2SAT 96
[2023-03-03 16:17] VITALS: PULSE 90; O2SAT 98
--- NOTE | 2023-03-03 17:01 | W.PALPGNOTE ---
Documented by User: Shanique Gonzalez NP 03/03/23 17:25 Date of service: 03/03/23 Time of Service: 11:00 Assessment and Plan Assessment and plan (1) Full code status: Status: Acute (2) Confusion: Status: Acute (3) Deficit of personal bathing and hygiene: Status: Acute (4) Discharge planning issues: Status: Acute (5) COPD exacerbation: Status: Acute (6) Dysphagia: Status: Acute (7) PTSD (post-traumatic stress disorder): Status: Acute (8) Nonischemic dilated cardiomyopathy: Status: Acute (9) History of tobacco abuse: Status: Acute (10) Agoraphobia: Status: Acute (11) Shortness of breath on exertion: Status: Acute (12) Cardiac resynchronization therapy defibrillator (PAID SEARCH MARKETING ANALYST-D) in place: Status: Acute (13) Under care of mental health team: Status: Acute (14) Social isolation: Status: Acute (15) Esophageal cancer: Status: Acute (16) Oxygen dependent: Status: Acute (17) Ambulatory dysfunction: Status: Chronic (18) Severe chronic obstructive pulmonary disease: Status: Chronic (19) Palliative care encounter: Status: Acute Assessment and plan: William's been transition to swing bed status at [facility], unfortunately he was not able to [facility] full CODE STATUS. An ethics consult occurred today, it was determined that it is not ethical to change his CODE STATUS for appropriate discharge despite his medical clearance from hospital. The plan is for William to remain in the hospital on swing bed at this time. It was recommended that he have 2 MDs from [facility] perform a capacity evaluation, a psychiatric consult, for potential emergency guardianship. If William is found to not have capacity, considerations for futility for life-sustaining treatments to be reviewed and considered by 2 [facility] physicians. William's community care team met today, including his mental health counselor, PAID SEARCH MARKETING ANALYST program representatives, [facility] health, [facility] care management. PAID SEARCH MARKETING ANALYST will reach out to the state [employer] and disability offices for emergency guardianship. Previously he had not been eligible, however due to increasing confusion and refusal to engage in decision-making his care team has determined it is critical he has guardianship Recommend room relocation to [facility] with less traffic to avoid further confusion, paranoia and anxiety triggers Continue with compassionate care, slow short conversations requiring any decision making. continue appropriate symptom management, with up titration of pain management as needed *from 02/10 HV, review of AD which was not signed* AD review: - does not have HCA; lists Toña Orosco and Shanique Gonzalez as people to notify/included in medical decisions - does NOT want the following consulted: Rico Madsen (sp?), Bao Diehl, Pravin Gay - wants tx to sustain life if able to communicate w/others, be conscious/aware of surroundings, and watch TV; awake and coherent - preferences to be at home for EOL - wants all life sustaining interventions, trial on machines for up to 3-4wks, including intubation and feeding tube - Additional preferences: no major surgery (cutting things out of body), limit new faces/avoid male providers, IF placement at facility, stay local ([facility]), preference for one on one visits only, scheduled medications w/focus on sxs management - preference for cremation, remains brought to [facility] direct pt care time: 45 mins; total time 220 mins Subjective Subjective Interval history since last seen: William is more confused today, he thinks he is home and wonders why people are coming in and out, we need to do something about it, it stresses him out when people are coming in and out, walking by, he doesn't understand why they are there and what they are doing, paranoid they may be trying to break in reports pain is constant, shoulders, hips, abdomen and substernal; unable to qualify what makes it better or worse; his nose feels more irritated from oxygen My heart can't take this Favorite food is pizza He was able to participate in a shower yesterday Nursing was unavailable prior to meeting with William Ethics consult today, see assessment and plan Community team meeting today see assessment and plan Exam Narrative Exam Narrative: General: ill appearing male, pale, NAD; well groomed; comfortable; awake and alert, believes he is in his home, refuses to answer orientation to person/time questions; greets this provider by name HEENT: normocephalic, atraumatic, hearing WNL Resp: respiration within patient's normal limits; able to speak full sentences, limited to 1-2 sentences; no audible wheeze or grunting, prolonged expiration phase; NC O2 in place; Ext: moves all 4 extremities; no pedal edema Psych: cooperative/agreeable, speech clear; affect anxious; thought content w/delusional thinking, paranoia; insight and judgment limited; fidgety Objective Last Vital Signs Temp 98.6 F 03/03/23 07:30 Pulse 90 03/03/23 16:17 Resp 16 03/03/23 16:10 BP 112/77 03/03/23 07:30 Pulse Ox 98 03/03/23 16:17 Laboratory Results - last 24 hr 03/03/23 07:00 WBC 13.72 H RBC 5.64 Hgb 16.9 Hct 50.3 H MCV 89 MCH 30.0 MCHC 33.6 RDW 13.4 Plt Count 193 MPV 10.6 Documented by User: Obdulia Carlson MD, MIGUEL ANGEL 03/04/23 11:31 Assessment and Plan Assessment and plan (1) Full code status: Status: Acute (2) Confusion: Status: Acute (3) Deficit of personal bathing and hygiene: Status: Acute (4) Discharge planning issues: Status: Acute (5) COPD exacerbation: Status: Acute (6) Dysphagia: Status: Acute (7) PTSD (post-traumatic stress disorder): Status: Acute (8) Nonischemic dilated cardiomyopathy: Status: Acute (9) History of tobacco abuse: Status: Acute (10) Agoraphobia: Status: Acute (11) Shortness of breath on exertion: Status: Acute (12) Cardiac resynchronization therapy defibrillator (PAID SEARCH MARKETING ANALYST-D) in place: Status: Acute (13) Under care of mental health team: Status: Acute (14) Social isolation: Status: Acute (15) Esophageal cancer: Status: Acute (16) Oxygen dependent: Status: Acute (17) Ambulatory dysfunction: Status: Chronic (18) Severe chronic obstructive pulmonary disease: Status: Chronic (19) Palliative care encounter: Status: Acute Exam Psych Other: 1. Able to Understand Medical Problem: Observations: 2. Able to Understand Proposed Treatment: ES, FOREIGN EXCHANGE STUDENT COORDINATOR Observations: 3. Able to Understand Alternative to Proposed Treatment (if any): Observations: 4. Able to Understand Option of Refusing Proposed Treatment (including withholding or withdrawing proposed treatment): Observations: 5. Able to Appreciate Reasonably Foreseeable Consequences of Accepting Proposed Treatment: Observations: 6. Able to Appreciate Resonably Foreseeable Consequences of Refusing Proposed Treatment (including withholding or withdrawing proposed treatment): Observation: Note: for questions 7a/7b a Yes answer means the person's decision is affected by the depression of psychosis. 7a. The Person's Decision is Affected by Depression: Observations: 7b. The Person's Decision is Affected by Delusion/Psychosis: Observations: Overall Impression: Definitely Capable Probably Capable Probably Incapable Definitely Incapable Comments:
[2023-03-03] MEDS: fentaNYL 50 MCG PATCH TD (20:13)
[2023-03-03] MEDS: Benztropine 1 MG TAB PO (21:38)
[2023-03-03] MEDS: Acetaminophen Solution 650 MG/20.3 ML CUP PO (21:54)
[2023-03-04] VITALS (12 sets, daily range): BP systolic 101; BP diastolic 60; PULSE 93–139; RESP 8–22; TEMP 36.7; O2SAT 91–98
[2023-03-04] MEDS: Budesonide/Formoterol 80/4.5 6.9 GM 60 PUFF INH IH ×2 (07:31→20:26)
[2023-03-04] MEDS: Albuterol/Ipratropium 3 ML UPD VIAL UPD ×3 (07:31→20:19)
[2023-03-04] MEDS: Nicotine 21 MG/24 HR PATCH TD (07:46)
[2023-03-04] MEDS: buPROPion-XL 150 MG TABCR 300 MG PO (07:46)
[2023-03-04] MEDS: QUEtiapine 50 MG TAB PO (07:46)
[2023-03-04] MEDS: prednisoLONE SOD PHOS. Soln. 3 MG/ML 40 MG PO (08:03)
[2023-03-04] MEDS: LORazepam 1 MG TAB 2 MG PO ×2 (09:01→17:45)
--- NOTE | 2023-03-04 09:24 | NUR.NOTE ---
Addendum entered by June Cummings RN 03/04/23 09:26: Anxiety attack: pt unable to catch his breath, oxygen on via nasal cannula; Respiratory in room and place pt on 4L , ativan 2mg given via po. RN satyed in room till pt calm down. O2 sat 95% on 4l Pulse 139. Pt pink and warm. Original Note: Nursing Note:
--- NOTE | 2023-03-04 11:31 | W.PALPGNOTE ---
Date of service: 03/04/23 Time of Service: 11:31 Assessment and Plan Assessment and plan (1) Full code status: Status: Acute (2) Confusion: Status: Acute (3) Encounter for assessment of decision-making capacity: Status: Acute Assessment and plan: I have based my capacity evaluation after spending approximately 35 minutes with William and another 40 minutes discussing with staff. He does not have capacity to make decisions for himself. I think this is greatly, pounded by his anxiety. Whenever he sees close to giving us a definitive answer he stopped speaking. I recommend that guardianship be obtained Subjective Subjective Interval history since last seen: I was asked by the hospitalist, Dr. Lynne, to do a capacity evaluation of William. He has had a protracted course complicated by his severe anxiety, PTSD, and comorbidities. I was asked to evaluate him for her good his capacity especially as it relates to his CODE STATUS William's nursing staff has said that he had a rough day yesterday. He was having delusions that people were coming into his room. This morning I did come to see him and the nurse was calming him down because of his anxiety. When Dr. Adames and myself went to see William he was quite anxious. He also had some air hunger. He was given a low-dose of morphine to help him breathe easier. Exam Narrative Exam Narrative: William is quite anxious when we walked in the door but as we talked and discussed CODE STATUS etc. he did calm down. He also received a low-dose of morphine which helped him considerably. By the end of our conversation he was looking in my eyes for up to 25 seconds. Please see capacity evaluation below 1. Able to Understand Medical Problem: Observations: He could not tell us what CPR was. He states that he has never seen this on TV or done in real life. His reply was it is the same reason I wear it 2. Able to Understand Proposed Treatment: Observations: Unable to tell us the components of CPR and what it entailed even after we discussed it. His reply to me was did you get your coffee 3. Able to Understand Alternative to Proposed Treatment (if any): Observations: He was unable to tell us what would happen if his heart stopped and his breathing stopped and he did not have CPR. When we talk to him about keeping him comfortable his reply was the water isn't that deep 4. Able to Understand Option of Refusing Proposed Treatment (including withholding or withdrawing proposed treatment): Observations: Unable to reply 5. Able to Appreciate Reasonably Foreseeable Consequences of Accepting Proposed Treatment: Observations: Dr. Adames explained how often it works in all situations and then as you gain morbidities how the chance of it working is less. At that point he called the hair on his left arm. 6. Able to Appreciate Resonably Foreseeable Consequences of Refusing Proposed Treatment (including withholding or withdrawing proposed treatment): Observation: I know it is crazy but... Note: for questions 7a/7b a Yes answer means the person's decision is affected by the depression of psychosis. 7a. The Person's Decision is Affected by Depression: Observations: 7b. The Person's Decision is Affected by Delusion/Psychosis: Observations: Overall Impression: Definitely Capable Probably Capable Probably Incapable Definitely Incapable xxx Comments: Objective Last Vital Signs Temp 98.1 F 03/04/23 06:42 Pulse 139 H 03/04/23 09:32 Resp 22 03/04/23 09:32 BP 101/60 03/04/23 06:42 Pulse Ox 95 03/04/23 09:32
[2023-03-04] MEDS: Enoxaparin 40 MG/0.4 ML SYR SC (12:18)
--- NOTE | 2023-03-04 12:51 | W.PALPGNOTE ---
Date of service: 03/04/23 Time of Service: 09:30 Assessment and Plan Assessment and plan (1) Encounter for assessment of decision-making capacity: Status: Acute Assessment and plan: Dr Carlson and I used a capacity questionaire that is embedded within PC documentation. It is composed of 7 questions, with 2 parts of question #7. 1. William was unable to understand the medical problem of a person needing CPR/life support. I asked when does someone need CPR and he said Same reason that I wear it, meaning his oxygen. 2. Dr Carlson asked William if he had ever seen CPR on TV, if he understood what chest compressions and pads and intubation (a tube to help your breathe in your throat) looked like. He did not answer except to say he never saw it on TV. 3, 4, 5, 6 and 7a William was unable to answer; he doesn't appear depressed (7a) though he is anxious. 7b was + for delusion, given his actions with his comb, his thinking he is in his own home, not at [facility]. He also said phrases that were unrelated to the conversation, such as The water isn't that deep here. He also started to say things that he then let drop, such as I know that it's crazy but...... When we passed by his room after sharing our capacity eval results with Dr Lynne, William was looking up at the blank TV and nodding, as if he saw images on the screen. Given this, he lacks capacity for medical decision making. (2) Confusion: Status: Acute (3) Goals of care, counseling/discussion: Status: Acute Assessment and plan: Unable to have a fully reasoned discussion. Subjective Subjective Patient reports: shortness of breath; denies feels better Interval history since last seen: I saw William once before on 02/19/23-- 2 weeks ago-- to establish care with him as part of the PC team. Shanique Gonzalez NP is his usual PC provider; she was away on vacation and wanted him seen on her behalf. William then was able to communicate simple desires. He was clear that he wanted to remain in the [facility] community. He accepted a referral being made on his behalf to the [facility]. Today, 03/04/23, I saw William with Dr Carlson to evaluate his capacity for decision making. He has struggled somewhat with decision-making since he came onto palliative care in July 2022 for his end-stage COPD. 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 Dr Lemus, his surgeon, arranged for him to go down to [facility] to have the tube placed, but on the day of the procedure, he changed his mind. He does not have a feeding tube. He has abided by his decision not to have one placed, mostly because he doesn't want to go to [facility] and deal with new doctors who are strangers to him. Today, Dr Carlson and I were asked to evaluate William for decision-making capacity after he had exhibited confusion and delusion over the course of many days. He has not been sick with an acute infection or metabolic derangements. He has not been hypoxic nor hypercapneic. He has severe baseline anxiety but manages that with help from , his own therapist, medications, and Pall Care. He does receive both morphine and lorazepam for his chronic moderate to severe dyspnea, but at doses that have not been escalated. Nonetheless, his capacity has declined. Dr Carlson and I used the same form to conduct our capacity interview. Please see her note from today, too. Exam Narrative Exam Narrative: Sitting up in recliner but not reclining, pale, in moderate respiratory distress, using pursed lip breathing, tachypneic, O2 sat at 94-96% on 3L/min oxygen, confused, intermittently anxious. eyes anicteric, non injected, not wearing glasses heent nc in his nose, hearing grossly intact, mmm resp: tachypneic to 24-26, using both accessory mucles and pursed lip breathing cv heart rate of 132 per oximeter chest barrel shaped abd overweight ext no obvious edema or cyanosis neuro could not appropriately answer capacity questions, unsure where he was, no sense of time, knows himself, seemed to recognize career development associate and nurse psych anxious, occasionally delusional actions (combing arm of his chair, then his arm, then his head) skin no obvious rashes Objective Last Vital Signs Temp 98.1 F 03/04/23 06:42 Pulse 139 H 03/04/23 09:32 Resp 22 03/04/23 09:32 BP 101/60 03/04/23 06:42 Pulse Ox 95 03/04/23 09:32
[2023-03-04] MEDS: Benztropine 1 MG TAB PO (21:12)
[2023-03-05] VITALS (9 sets, daily range): PULSE 16–102; RESP 4–108; O2SAT 92–98
[2023-03-05] MEDS: Albuterol/Ipratropium 3 ML UPD VIAL UPD ×3 (08:17→19:36)
[2023-03-05] MEDS: Budesonide/Formoterol 80/4.5 6.9 GM 60 PUFF INH IH ×2 (08:19→19:36)
[2023-03-05] MEDS: prednisoLONE SOD PHOS. Soln. 3 MG/ML 40 MG PO (08:45)
[2023-03-05] MEDS: Nicotine 21 MG/24 HR PATCH TD (08:50)
[2023-03-05] MEDS: QUEtiapine 50 MG TAB PO (08:50)
[2023-03-05] MEDS: buPROPion-XL 150 MG TABCR 300 MG PO (09:00)
[2023-03-05] MEDS: Enoxaparin 40 MG/0.4 ML SYR SC (09:35)
[2023-03-05] MEDS: LORazepam 1 MG TAB 2 MG PO (19:48)
[2023-03-05] MEDS: Benztropine 1 MG TAB PO (21:28)
[2023-03-06] VITALS (13 sets, daily range): BP systolic 108; BP diastolic 72; PULSE 80–119; RESP 4–22; TEMP 37; O2SAT 90–99
[2023-03-06] MEDS: Levalbuterol 1.25 MG/3 ML UPD VIAL UPD (01:06)
[2023-03-06] MEDS: LORazepam 1 MG TAB 2 MG PO ×3 (01:17→22:55)
--- NOTE | 2023-03-06 01:46 | NUR.NOTE ---
Nursing Note: At 0100 hrs.This nurse found patient walking unsteady in front of his room door, having SOB and very confused, unable to talk due to respiratory [id number], became agitated and mildly physical aggressiveness noted. Redirection was difficult, This hand sign writer called other male nurse to guide patient back to room but took more minutes to convinced patient, Morphine liquid PRN giv and Updraft also administered. Breathing was imrpving but patient remains restless, attempted to get out of the room 3 x. Continue on O2 and RT came but nothing was done since patient already recovered breathing. At )150, patient managed to lie down with eyes closed, This nurse was at bedside. At. 0155 hrs, patient suddenly got out of bed., disoriented and pointing the door, closely monitored patient while he is on sitting position at the edge of the bed. , patient is not stable.
[2023-03-06] MEDS: diphenhydrAMINE Elixir 25 MG/10 ML CUP PO (02:03)
[2023-03-06] MEDS: Albuterol/Ipratropium 3 ML UPD VIAL UPD ×4 (02:25→19:33)
[2023-03-06] MEDS: Budesonide/Formoterol 80/4.5 6.9 GM 60 PUFF INH IH ×2 (07:51→19:32)
[2023-03-06] MEDS: Nicotine 21 MG/24 HR PATCH TD (08:39)
[2023-03-06] MEDS: QUEtiapine 50 MG TAB PO (08:40)
[2023-03-06] MEDS: buPROPion-XL 150 MG TABCR 300 MG PO (08:40)
[2023-03-06] MEDS: prednisoLONE SOD PHOS. Soln. 3 MG/ML 40 MG PO (08:40)
[2023-03-06] MEDS: Enoxaparin 40 MG/0.4 ML SYR SC (09:31)
[2023-03-06] MEDS: fentaNYL 50 MCG PATCH TD (17:21)
[2023-03-06] MEDS: Benztropine 1 MG TAB PO (21:09)
[2023-03-07 01:38] VITALS: PULSE 84; RESP 1; RESP 18; RESP 8; O2SAT 99
[2023-03-07] MEDS: Albuterol/Ipratropium 3 ML UPD VIAL UPD ×4 (01:38→20:28)
[2023-03-07] MEDS: Budesonide/Formoterol 80/4.5 6.9 GM 60 PUFF INH IH ×2 (08:24→19:41)
[2023-03-07 08:25] VITALS: PULSE 94; RESP 8; O2SAT 98
[2023-03-07 08:38] VITALS: BP 106/74; PULSE 105; RESP 20; TEMP 36.6; O2SAT 97
[2023-03-07] MEDS: Nicotine 21 MG/24 HR PATCH TD (08:41)
[2023-03-07] MEDS: prednisoLONE SOD PHOS. Soln. 3 MG/ML 40 MG PO (08:41)
[2023-03-07] MEDS: QUEtiapine 50 MG TAB PO (08:42)
[2023-03-07] MEDS: buPROPion-XL 150 MG TABCR 300 MG PO (08:42)
[2023-03-07] MEDS: Enoxaparin 40 MG/0.4 ML SYR SC (11:10)
[2023-03-07 14:10] VITALS: PULSE 117; RESP 8; O2SAT 95
[2023-03-07] MEDS: LORazepam 1 MG TAB 2 MG PO (16:03)
[2023-03-07] MEDS: Levalbuterol 1.25 MG/3 ML UPD VIAL UPD (19:14)
[2023-03-07 19:45] VITALS: O2SAT 94
[2023-03-07 20:28] VITALS: RESP 1; RESP 8
[2023-03-07] MEDS: Benztropine 1 MG TAB PO (23:13)
[2023-03-08] VITALS (10 sets, daily range): BP systolic 133; BP diastolic 82; PULSE 85–122; RESP 1–22; O2SAT 94–98
[2023-03-08] MEDS: LORazepam 1 MG TAB 2 MG PO ×2 (04:18→14:19)
[2023-03-08] MEDS: Mylanta Suspension 30 ML CUP PO (04:39)
[2023-03-08] MEDS: Levalbuterol 1.25 MG/3 ML UPD VIAL UPD (04:47)
[2023-03-08] MEDS: Albuterol/Ipratropium 3 ML UPD VIAL UPD ×3 (08:06→19:21)
[2023-03-08] MEDS: Budesonide/Formoterol 80/4.5 6.9 GM 60 PUFF INH IH (08:09)
[2023-03-08] MEDS: QUEtiapine 50 MG TAB PO (08:35)
[2023-03-08] MEDS: buPROPion-XL 150 MG TABCR 300 MG PO (08:37)
[2023-03-08] MEDS: Nicotine 21 MG/24 HR PATCH TD (08:38)
[2023-03-08] MEDS: prednisoLONE SOD PHOS. Soln. 3 MG/ML 40 MG PO (08:44)
[2023-03-08] MEDS: Enoxaparin 40 MG/0.4 ML SYR SC (10:30)
--- NOTE | 2023-03-08 13:35 | NUR.NOTE ---
Mr. Gay has moments of clarity and moments of confusion. This RN heard labored breathing and went in his room to find him wandering around his chair with his oxygen nasal cannula pulled off and the patient asked for more O2 tubing. RN put his nasal cannula back on, the patient sat down and took deep slow breaths and calmed down. He then stated 5'7 without any query or prompting. JESUS Rowan joined this RN and saw the patient settled down in the chair. Nursing Note:
--- NOTE | 2023-03-08 14:35 | W.NUTRFU ---
Date of service: 03/08/23 Time of Service: 14:35 Nutrition Note NOTE: Pallitive care involved with William's case. Did not receive feeding tube and would like to proceed with regular soft bite sized meal plan. PO intake improved despite esophageal mass and meeting about 50% of nutrient needs. Has lost 9 lbs in last 30 days (-5%) considered significant and of concern.WIll continue to provide meals and supplements that he prefers and tolerates. Time Spent in Nutritional Counseling and Treatment: 0
[2023-03-09 04:37] VITALS: PULSE 100; RESP 19; RESP 24; RESP 4; RESP 8; O2SAT 98
[2023-03-09] MEDS: Levalbuterol 1.25 MG/3 ML UPD VIAL UPD (04:37)
[2023-03-09] MEDS: LORazepam 1 MG TAB 2 MG PO ×2 (04:37→14:53)
[2023-03-09 04:47] VITALS: BP 133/71; PULSE 100; RESP 24; TEMP 37; O2SAT 98
[2023-03-09 07:43] VITALS: PULSE 94; RESP 8; O2SAT 95
[2023-03-09] MEDS: Budesonide/Formoterol 80/4.5 6.9 GM 60 PUFF INH IH ×2 (07:43→19:11)
[2023-03-09] MEDS: Albuterol/Ipratropium 3 ML UPD VIAL UPD (07:43)
[2023-03-09] MEDS: Nicotine 21 MG/24 HR PATCH TD (08:24)
[2023-03-09] MEDS: prednisoLONE SOD PHOS. Soln. 3 MG/ML 40 MG PO (08:24)
[2023-03-09] MEDS: QUEtiapine 50 MG TAB PO (08:25)
[2023-03-09] MEDS: buPROPion-XL 150 MG TABCR 300 MG PO (08:25)
--- NOTE | 2023-03-09 08:39 | W.PALPGNOTE ---
Date of service: 03/08/23 Time of Service: 16:20 Assessment and Plan Assessment and plan (1) Confusion: Status: Acute (2) Deficit of personal bathing and hygiene: Status: Acute (3) Discharge planning issues: Status: Acute (4) Dysphagia: Status: Acute (5) PTSD (post-traumatic stress disorder): Status: Acute (6) Agoraphobia: Status: Acute (7) Shortness of breath on exertion: Status: Acute (8) Esophageal cancer: Status: Acute (9) Oxygen dependent: Status: Acute (10) Unintentional weight loss: (11) Palliative care encounter: Status: Acute Assessment and plan: Palliative will continue to follow Mr. Thomas closely and provide support as needed. Assistance and support w/hygiene will occur as needed this week. William was determined to lack capacity for medical decision making last week. The plan is for him to be re-evaluated this week and determine if a futility DNR/I and other LST will be considered Requested morphine for pain administered, last dose greater than 4 hours prior. Please continue to monitor his pain, up titrating as appropriate Subjective Subjective Interval history since last seen: William was lying, sleeping in his bed at time of arrival; he appeared comfortable and in NAD He was arousable and willing to participate in visit. He had a rough weekend, but is now feeling slightly better, unable to qualify what he means by this. He continues to tolerate food/liquids, remains on small bite sized diet. he reports he has a slight globus sensation w/swallowing that can be painful, he requests pain medications to aid in this. He requests a comb to comb his hair. Last hygiene noted as last Wednesday. Today he is not wearing pants, clean pants are available in room. RN unable to provide report/update as just took over pt care, will be on for next few days, and request assistance w/hygiene as needed Exam Narrative Exam Narrative: General: ill appearing male, pale, NAD; disheveled, hair greasy, wearing shirt, no pants; comfortable; initially sleeping in NAD, wakes to light speech, awake and alert; greets this provider by name HEENT: normocephalic, atraumatic, hearing WNL Resp: respiration within patient's normal limits; able to speak full sentences, limited to 1-2 sentences; no audible wheeze or grunting, prolonged expiration phase; NC O2 initially not in use, difficulty replacing NC independently, accepts assistance; GI: tolerates sips of ginerale, bites of broccoli/chicken/mashed potatoes, hiccups begin w/eating, grimace w/swallowing Ext: moves all 4 extremities; no pedal edema; toe nails trimmed compared to previous visit Psych: cooperative/agreeable, speech clear; affect anxious; thought content w/delusional thinking, paranoia; insight and judgment limited; fidgety Objective Last Vital Signs Temp 98.6 F 03/09/23 04:47 Pulse 94 H 03/09/23 07:43 Resp 24 03/09/23 04:47 BP 133/71 03/09/23 04:47 Pulse Ox 95 03/09/23 07:43
[2023-03-09 08:40] VITALS: BP 114/69; PULSE 102; RESP 22; TEMP 36.8; O2SAT 94
[2023-03-09 08:45] VITALS: BP 106/58; PULSE 104; RESP 22; TEMP 36.9; O2SAT 93
[2023-03-09] MEDS: Mylanta Suspension 30 ML CUP PO (08:48)
[2023-03-09] MEDS: Lidocaine 2% Viscous 15 ML CUP PO (08:48)
[2023-03-09] MEDS: Enoxaparin 40 MG/0.4 ML SYR SC (10:02)
--- NOTE | 2023-03-09 15:58 | CHAPLAIN ---
William was sitting up at the edge of the bed when I visited. He engaged in a conversation, but was sometimes slow to respond. He is being followed by Shanique Gonzalez NP, from [facility]. William was happy to tell me that his counselor, Toña Orosco, was expected to visit today at 3 p.m. Toña is one of William professional supports and someone William trusts. When I asked William if I could help him with anything, he said he'd like to get to my vehicle to make sure no one as has messed with it. He told me his vehicle is about 5 miles away from his house. There are no plans for William to go home at this point, or get to his vehicle. I also asked William if he'd like to visit with a roll weigher. (William is listed as Yazidi on our amish roster.) William said he was not interested in meeting with a roll weigher. I will continue to visit.
[2023-03-09] MEDS: fentaNYL 50 MCG PATCH TD (18:20)
[2023-03-09] MEDS: Benztropine 1 MG TAB PO (21:30)
[2023-03-10] MEDS: Levalbuterol 1.25 MG/3 ML UPD VIAL UPD (04:40)
[2023-03-10] MEDS: Budesonide/Formoterol 80/4.5 6.9 GM 60 PUFF INH IH (07:41)
[2023-03-10] MEDS: Nicotine 21 MG/24 HR PATCH TD (07:43)
[2023-03-10] MEDS: buPROPion-XL 150 MG TABCR 300 MG PO (07:43)
[2023-03-10] MEDS: QUEtiapine 50 MG TAB PO (07:43)
[2023-03-10 07:44] VITALS: BP 117/78; PULSE 98; RESP 12; TEMP 36.5; O2SAT 95
[2023-03-10] MEDS: prednisoLONE SOD PHOS. Soln. 3 MG/ML 40 MG PO (07:44)
[2023-03-10 07:53] VITALS: O2SAT 96
[2023-03-10] MEDS: Enoxaparin 40 MG/0.4 ML SYR SC (10:06)
[2023-03-10] MEDS: LORazepam 1 MG TAB 2 MG PO (11:50)
--- NOTE | 2023-03-10 12:15 | PGE_ITS ---
Date of Service Date of service: 03/10/23 Time of Service: 12:15 Assessment and Plan Assessment and plan (1) Pain: Status: Acute Assessment and plan: increase fentanyl to 75 mcg, up titrate as needed; when appropriate consider CADD pump for improved pain control, may become necessary w/obstruction continue morphine 10mg Q2h PRN (2) Dysphagia: Status: Acute Assessment and plan: suspected will continue to worsen given nearly obstructed esophageal mass diet modifications as needed. (3) PTSD (post-traumatic stress disorder): Status: Acute Assessment and plan: preference to avoid male providers, one on one visits as able, slow conversations w/gaps to allow for processing and questions as needed (4) Cardiac resynchronization therapy defibrillator (CONFECTIONERY MAKER-D) in place: Status: Acute Assessment and plan: [employer]onic Amplica, last changed 02/13 - beginning discussions regarding turning off defibrillation component d/t futility (5) Esophageal cancer: Status: Acute Assessment and plan: metastatic, work-up not complete d/t pt preferences; reviewed decision not to have surgery, chemo or radiation therapies today, William agrees with previous decision - esophageal mass will likely fully obstruct any day now, would be consider imminent at time of obstruction w/likely 3 days or less at that time (6) Oxygen dependent: Status: Acute Assessment and plan: stable on 3L (7) Full code status: Status: Acute Assessment and plan: per patient wishes, following ethics committee review (8) Anxiety with depression: Status: Acute Assessment and plan: continue Wellbutrin and Seroquel continue lorazepam PRN, add scheduled TID (9) Discharge planning issues: Status: Acute Assessment and plan: case management following for discharge planning, referrals sent but wishes to stay in area only secondary to support systems. will remain here for now. Will remain as full code per his wishes discussed with Dr Jara Subjective Subjective Patient reports: no new complaints and afebrile; denies shortness of breath Exam Const General: cooperative, comfortable, no acute distress and ill appearing chronically Nutritional Appearance: overweight Limitations: behavioral limitations HENMT Head: normal to inspection, normocephalic and atraumatic Ears: hearing grossly normal bilaterally Resp Effort & Inspection: able to speak in complete sentences and no audible wheezes Auscultation: diminished lung sounds and wheezes expiratory wheezes Cardio Rate: regular rate Rhythm: regular rhythm GI Inspection: normal to inspection (round, soft) Psych Mental Status: mental status grossly normal Speech and Movement: speech clear Mood: congruent mood Affect: anxious affect Attitude: cooperative Thought Content: normal Insight: limited Judgment: limited Objective Last Vital Signs Temp 36.5 C 03/10/23 07:44 Pulse 98 H 03/10/23 07:44 Resp 12 03/10/23 07:44 BP 117/78 03/10/23 07:44 Pulse Ox 96 03/10/23 07:53 Time Spent with Patient Time Spent with Patient: 35-49 minutes Time was spent: preparing to see the patient(eg.review tests), obtaining and/or reviewing separately otained hiistory, ordering medications,tests, procedures, referring, communicating with other health patient care associate and counseling the patient
--- NOTE | 2023-03-10 16:21 | W.PALPGNOTE ---
Date of service: 03/10/23 Time of Service: 14:00 Assessment and Plan Assessment and plan (1) PTSD (post-traumatic stress disorder): Status: Acute Assessment and plan: preference to avoid male providers, one on one visits as able, slow conversations w/gaps to allow for processing and questions as needed (2) Nonischemic dilated cardiomyopathy: Status: Acute (3) Cardiac resynchronization therapy defibrillator (NURSE MIDWIFE/CLINICAL INSTRUCTOR-D) in place: Status: Acute Assessment and plan: Not ethically permissible to turn off defibrillator at this time (4) Esophageal cancer: Status: Acute Assessment and plan: metastatic, work-up not complete d/t pt preferences; reviewed decision not to have surgery, chemo or radiation therapies today, William agrees with previous decision - esophageal mass will likely fully obstruct any day now, would be consider imminent at time of obstruction w/likely 3 days or less at that time (5) Oxygen dependent: Status: Acute Assessment and plan: stable on 2-3L (6) Full code status: Status: Acute Assessment and plan: Per patient's previous wishes Ethically appropriate to consider DNR futility, extremity review recommend futility signed off by 2 [facility] physicians (7) Anxiety with depression: Assessment and plan: continue Wellbutrin and Seroquel Recommend transition to scheduled lorazepam 1 mg every 4 hours (8) Pain: Assessment and plan: continue fentanyl 50mcg, up titrate as needed; consider CADD pump for improved pain control, may become necessary w/obstruction Recommend transition to scheduled morphing 10mg Q2h Recommend scheduled GI cocktail twice daily to 3 times daily based on improvement yesterday (9) Discharge planning issues: Status: Acute Assessment and plan: Will remain on swing bed status at this time (10) Deficit of personal bathing and hygiene: Status: Acute Assessment and plan: Provided hygiene support with shower today; unfortunately he was not able to participate in full shower due to no warm water being available; Recommend hygiene schedule PC available to assist as needed (11) Confusion: Status: Acute (12) Dysphagia: Status: Acute Assessment and plan: Continue small bite-size diet (13) Agoraphobia: Status: Acute Assessment and plan: Limit visits as possible to one-on-one, only 1 person speaking at a time (14) Family dysfunction: Status: Acute Assessment and plan: No family available, had previously stated he did not trust anyone in family (15) Hallucination: Assessment and plan: Consider Haldol as needed (16) PTSD (post-traumatic stress disorder): (17) Unintentional weight loss: (18) Severe chronic obstructive pulmonary disease: Status: Chronic (19) Palliative care encounter: Status: Acute Assessment and plan: Palliative will continue to follow quite closely and provide support as needed Recommend consider futility DNR signed by 2 physicians per SARAH: appropriate to provide reassurance that all that can be done will be done but we will not do inappropriate things to him that will cause him harm, it is not ethically permissible to harm him while he is dying NURSE MIDWIFE/CLINICAL INSTRUCTOR to contact [facility] for additional advice as able Subjective Subjective Interval history since last seen: William remains inpatient on swing bed status at [facility], he is not participating in hygiene for 1 week, palliative care to assist with hygiene today He is agreeable to visit, agreeable to getting cleaned up and shower . He states he feels like shit , however is better than yesterday, and is unable to qualify this per staff: He is appeared more impulsive today, hallucinations of continued, he is looking for his boots. Continues fentanyl 50 mcg patch, morphine every 2 hours, last dose at noon, Ativan 1 mg last visit noon, feel he would benefit from having these medicines scheduled. He received a GI cocktail yesterday which is written for max 8 doses in 24 hours, feel this would be benefit scheduled as well 2-3 times per day per NURSE MIDWIFE/CLINICAL INSTRUCTOR: he is unable to have guardian d/t under 60 y/o; will reach back out to disability rights of [place] to see if alternative; d/t it being a medical ethics case and the direction of treatment should follow information provided from Viky gandhi/[place] [employer]; beyond NURSE MIDWIFE/CLINICAL INSTRUCTOR abilities d/t medical needs per SARAH communication: It is appropriate for futile DNR to be certified and signed by 2 clinicians, this only addresses CPR based on medical nonbenefit, not other interventions like DNI etc.; there is no apical obligation to offer treatments that will not work just because it is requested, healthcare could be related to his best interest now and avert the harm, appropriate to provide reassurance that all that can be done will be done but we will not do inappropriate things to him that will cause him harm, it is not ethically permissible to harm him while he is dying Exam Narrative Exam Narrative: General: ill appearing male, pale, NAD; disheveled, hair greasy; comfortable; sitting in bedside recliner HEENT: normocephalic, atraumatic, hearing WNL Resp: respiration within patient's normal limits; able to speak full sentences, limited to 1-2 sentences; no audible wheeze or grunting, prolonged expiration phase; difficulty replacing NC independently, accepts assistance; Ext: moves all 4 extremities; no pedal edema; Neuro: tolerates independent sit to stand transfer from recliner to ; unsteady; awake and alert Psych: cooperative/agreeable, speech clear; affect anxious; thought content w/delusional thinking, paranoia; insight and judgment limited; fidgety Objective Last Vital Signs Temp 97.7 F 03/10/23 07:44 Pulse 98 H 03/10/23 07:44 Resp 12 03/10/23 07:44 BP 117/78 03/10/23 07:44 Pulse Ox 96 03/10/23 07:53
[2023-03-10] MEDS: fentaNYL 25 MCG PATCH TD (17:46)
[2023-03-11] MEDS: LORazepam 1 MG TAB 2 MG PO (03:57)
[2023-03-11 07:37] VITALS: BP 102/65; PULSE 85; RESP 14; TEMP 36.5; O2SAT 96
[2023-03-11] MEDS: Nicotine 21 MG/24 HR PATCH TD (08:30)
[2023-03-11] MEDS: prednisoLONE SOD PHOS. Soln. 3 MG/ML 40 MG PO (08:30)
[2023-03-11] MEDS: buPROPion-XL 150 MG TABCR 300 MG PO (08:30)
[2023-03-11] MEDS: QUEtiapine 50 MG TAB PO (08:30)
[2023-03-11] MEDS: LORazepam 2 MG/1 ML Oral Concentrate 1 MG PO ×2 (08:31→14:11)
[2023-03-11] MEDS: Levalbuterol 1.25 MG/3 ML UPD VIAL UPD (08:55)
[2023-03-11] MEDS: Budesonide/Formoterol 80/4.5 6.9 GM 60 PUFF INH IH (09:37)
[2023-03-11 09:38] VITALS: O2SAT 96
[2023-03-11] MEDS: Enoxaparin 40 MG/0.4 ML SYR SC (11:02)
[2023-03-11 16:22] VITALS: BP 127/73; PULSE 99; RESP 16; TEMP 36.3; O2SAT 94
--- NOTE | 2023-03-11 16:37 | CMPROGNOTE_ITS ---
Date of service: 03/11/23 Time of Service: 16:37 Care Management Progress Note Progress Note Text Progress Note Text: S/O: CM has been visiting William most days to check in and see how he is feeling. He has good and bad days, from his perspective. He often states that he is in pain, expressing that he is always in a lot of pain, and that he has been his whole life. Per provider, his medications have now been scheduled, as he was not asking for medication until he was in a pain/anxiety crisis. William is not always able to communicate in full sentences, and cannot always express how he is feeling, appropriately. William is being transitioned to [facility] today, as he does not have a skilled need for rehab, and does not have a safe discharge plan at this time. There are weekly team meetings with William's community care team, which CM will continue to attend, to assist in determining a safe discharge plan. CM will continue to follow. A: William is a 57 year old male admitted to B at [facility] on 03/02/23. P: William remains on SWB, now level two, due to him not being safe to discharge home, and no accepting facility for SNF. He has a fdc SUPRIYA application pending. He will remain at [facility] until he is able to transition to a SNF for termite treater care. CM will continue to follow.
--- NOTE | 2023-03-11 16:55 | PDOC.CMACT ---
Date of service: 03/11/23 Time of Service: 16:55 Care Management Activity Note Activity Note Text Activity Note Text: MIRANDA has offered William activities, but he is not expressing interest in watching TV, puzzle books, adult coloring books, playing cards or other activities. He has a journal that he keeps close to him, as well as a comb, that he finds comfort in using occasionally. MIRANDA and Shanique, Palliative Care, discussed incorporating a shower into William's schedule every 3-4 days. Shanique will support this plan, as needed. MIRANDA and Shanique have also discussed a plan to take William outside for short walks with staff supervision when the weather is nice; MIRANDA will continue to work on this plan, and to encourage William to engage in activities for life enrichment during his prolonged stay at [facility].
[2023-03-12] MEDS: Levalbuterol 1.25 MG/3 ML UPD VIAL UPD ×2 (02:29→10:59)
[2023-03-12] MEDS: LORazepam 1 MG TAB 2 MG PO (02:36)
[2023-03-12] MEDS: Nicotine 21 MG/24 HR PATCH TD (08:05)
[2023-03-12] MEDS: buPROPion-XL 150 MG TABCR 300 MG PO (08:05)
[2023-03-12] MEDS: QUEtiapine 50 MG TAB PO (08:05)
[2023-03-12] MEDS: LORazepam 2 MG/1 ML Oral Concentrate 1 MG PO ×3 (08:06→20:55)
[2023-03-12] MEDS: prednisoLONE SOD PHOS. Soln. 3 MG/ML 40 MG PO (08:06)
[2023-03-12 08:13] VITALS: BP 122/85; PULSE 104; RESP 14; TEMP 37; O2SAT 95
[2023-03-12] MEDS: Budesonide/Formoterol 80/4.5 6.9 GM 60 PUFF INH IH ×2 (08:40→19:41)
[2023-03-12 08:54] VITALS: O2SAT 95
[2023-03-12] MEDS: Enoxaparin 40 MG/0.4 ML SYR SC (10:03)
[2023-03-12 11:00] VITALS: O2SAT 96
--- NOTE | 2023-03-12 13:53 | NUR.NOTE ---
Nursing Note: pt is increasing anxiety and restlessness. pt is stating that he wants to go home because his heart might stop ticking and he needs to get out.
[2023-03-12] MEDS: Lidocaine 2% Viscous 15 ML CUP PO (15:54)
[2023-03-12] MEDS: Calcium Carbonate *TUMS* 500 MG CHEW PO (15:54)
[2023-03-12] MEDS: fentaNYL 75 MCG PATCH TD (17:19)
[2023-03-12 19:42] VITALS: O2SAT 95
[2023-03-12] MEDS: Benztropine 1 MG TAB PO (20:54)
[2023-03-13] MEDS: QUEtiapine 50 MG TAB PO (07:38)
[2023-03-13] MEDS: buPROPion-XL 150 MG TABCR 300 MG PO (07:38)
[2023-03-13] MEDS: prednisoLONE SOD PHOS. Soln. 3 MG/ML 40 MG PO (07:39)
[2023-03-13] MEDS: LORazepam 2 MG/1 ML Oral Concentrate 1 MG PO ×3 (07:39→20:31)
[2023-03-13 07:41] VITALS: BP 128/82; PULSE 109; RESP 20; TEMP 36.9; O2SAT 95
[2023-03-13 08:02] VITALS: O2SAT 95
[2023-03-13] MEDS: Budesonide/Formoterol 80/4.5 6.9 GM 60 PUFF INH IH (08:02)
[2023-03-13] MEDS: Nicotine 21 MG/24 HR PATCH TD (09:32)
[2023-03-13] MEDS: Enoxaparin 40 MG/0.4 ML SYR SC (09:33)
[2023-03-13] MEDS: Calcium Carbonate *TUMS* 500 MG CHEW PO (13:05)
[2023-03-14] MEDS: Levalbuterol 1.25 MG/3 ML UPD VIAL UPD (02:36)
[2023-03-14] MEDS: LORazepam 1 MG TAB 2 MG PO ×2 (04:39→11:33)
[2023-03-14 07:20] VITALS: BP 113/73; PULSE 95; RESP 18; TEMP 36.5; O2SAT 96
[2023-03-14] MEDS: QUEtiapine 50 MG TAB PO (07:48)
[2023-03-14] MEDS: buPROPion-XL 150 MG TABCR 300 MG PO (07:48)
[2023-03-14] MEDS: Nicotine 21 MG/24 HR PATCH TD (07:49)
[2023-03-14] MEDS: LORazepam 2 MG/1 ML Oral Concentrate 1 MG PO ×3 (07:49→19:48)
[2023-03-14] MEDS: prednisoLONE SOD PHOS. Soln. 3 MG/ML 40 MG PO (07:50)
[2023-03-14] MEDS: Budesonide/Formoterol 80/4.5 6.9 GM 60 PUFF INH IH ×2 (09:00→19:30)
[2023-03-14] MEDS: Enoxaparin 40 MG/0.4 ML SYR SC (09:59)
[2023-03-14] MEDS: Nicotine 14 MG/24 HR PATCH TD (12:06)
[2023-03-14] MEDS: Benztropine 1 MG TAB PO (19:47)
[2023-03-15] MEDS: LORazepam 1 MG TAB 2 MG PO (05:49)
[2023-03-15] MEDS: Levalbuterol 1.25 MG/3 ML UPD VIAL UPD (05:49)
[2023-03-15 07:29] VITALS: O2SAT 99
[2023-03-15] MEDS: Budesonide/Formoterol 80/4.5 6.9 GM 60 PUFF INH IH (07:29)
[2023-03-15 07:32] VITALS: O2SAT 95
[2023-03-15] MEDS: LORazepam 2 MG/1 ML Oral Concentrate 1 MG PO ×3 (08:24→23:27)
[2023-03-15] MEDS: prednisoLONE SOD PHOS. Soln. 3 MG/ML 40 MG PO (08:25)
[2023-03-15] MEDS: QUEtiapine 50 MG TAB PO (08:25)
[2023-03-15] MEDS: buPROPion-XL 150 MG TABCR 300 MG PO (08:25)
[2023-03-15 09:32] VITALS: BP 102/63; PULSE 103; RESP 18; TEMP 36.8; O2SAT 96
[2023-03-15] MEDS: Enoxaparin 40 MG/0.4 ML SYR SC (10:06)
[2023-03-15] MEDS: Nicotine 14 MG/24 HR PATCH TD (12:59)
--- NOTE | 2023-03-15 15:25 | W.PALPGNOTE ---
Date of service: 03/15/23 Time of Service: 13:15 Assessment and Plan Assessment and plan (1) Confusion: Status: Acute (2) Deficit of personal bathing and hygiene: Status: Acute (3) Discharge planning issues: Status: Acute (4) Dysphagia: Status: Acute (5) PTSD (post-traumatic stress disorder): Status: Acute (6) Agoraphobia: Status: Acute (7) Shortness of breath on exertion: Status: Acute (8) Esophageal cancer: Status: Acute (9) Oxygen dependent: Status: Acute (10) Unintentional weight loss: (11) Pain: Status: Acute (12) Full code status: Status: Acute (13) Cardiac resynchronization therapy defibrillator (MANUFACTURING SUPERVISOR 2ND SHIFT-D) in place: Status: Acute (14) Under care of mental health team: Status: Acute (15) Social isolation: Status: Acute (16) Severe chronic obstructive pulmonary disease: Status: Chronic (17) Palliative care encounter: Status: Acute Assessment and plan: Palliative will continue to follow William closely and provide support with personal care as needed current treatment plan, increasing pain medications as needed, consider scheduling GI cocktail, morphine and lorazepam while awake if symptoms remain uncontrolled; consider Haldol as needed Reviewed SARAH recommendations for futility DNR with physician attending, plan for futility DNR tomorrow with second [facility] physician; of note this can only be for DNR, would need to determine futility with other life-sustaining interventions at time of medical need, may anticipate futility associated with defibrillator, intubation, artificial nutrition hydration Limited personal hygiene support provided today d/t pt refusal; comb hair preference to avoid male providers, one on one visits as able, slow conversations w/gaps to allow for processing and questions as needed; Limit visits as possible to one-on-one, only 1 person speaking at a time Tyron team meeting scheduled for Wednesday at 4 PM, to follow-up on MANUFACTURING SUPERVISOR 2ND SHIFT for [place] disability assistance Subjective Subjective Interval history since last seen: William has been relatively stable since last PC visit Confusion ongoing, now standing in doorway more, walking around room, with increased confusion. This morning keeping thought he was 8 years old, unaware he is in hospital, continues to eat No hygiene since Wednesday where he had oral and face hygiene performed, has refused x2 since then Remains full code William enjoys country music, would be interested in going outside. Continues to complain of pain, pain worse abdomen and chest today, substernal and throughout stomach. He is agreeable to having Perricone, however does not want to get washed out, does not feel he needs teeth brushed. Exam Narrative Exam Narrative: General: ill appearing male, pale, NAD; disheveled, hair greasy; comfortable; sitting at bedside on arrival, ambulated around room throughout visit, looking in cushions for items he is unable to articulate; sits in chair by window at end of visit; tolerates 3 sips of water; HEENT: normocephalic, atraumatic, hearing WNL Resp: respiration within patient's normal limits; able to speak full sentences, limited to 1-2 sentences; no audible wheeze or grunting, prolonged expiration phase; difficulty replacing NC independently, accepts assistance; Ext: moves all 4 extremities; no pedal edema; Neuro: tolerates independent sit to stand transfer from recliner to ; unsteady; awake and alert Psych: cooperative/agreeable, speech clear; affect anxious; thought content w/delusional thinking, paranoia; insight and judgment limited; fidgety Objective Last Vital Signs Temp 98.2 F 03/15/23 09:32 Pulse 103 H 03/15/23 09:32 Resp 18 03/15/23 09:32 BP 102/63 03/15/23 09:32 Pulse Ox 96 03/15/23 09:32
[2023-03-15] MEDS: fentaNYL 75 MCG PATCH TD (17:46)
[2023-03-15] MEDS: Benztropine 1 MG TAB PO (23:26)
[2023-03-16] MEDS: Levalbuterol 1.25 MG/3 ML UPD VIAL UPD (02:59)
[2023-03-16] MEDS: LORazepam 1 MG TAB 2 MG PO (02:59)
[2023-03-16] MEDS: Ipratropium 0.5 MG/2.5 ML UPD VIAL UPD (02:59)
[2023-03-16 08:19] VITALS: BP 148/86; PULSE 95; RESP 24; TEMP 36.2; O2SAT 97
[2023-03-16] MEDS: prednisoLONE SOD PHOS. Soln. 3 MG/ML 40 MG PO (08:30)
[2023-03-16] MEDS: buPROPion-XL 150 MG TABCR 300 MG PO (08:30)
[2023-03-16] MEDS: QUEtiapine 50 MG TAB PO (08:30)
[2023-03-16] MEDS: LORazepam 2 MG/1 ML Oral Concentrate 1 MG PO (08:31)
[2023-03-16] MEDS: Budesonide/Formoterol 80/4.5 6.9 GM 60 PUFF INH IH (08:33)
[2023-03-16 08:51] VITALS: BP 108/72; PULSE 81; RESP 18; TEMP 36.5; O2SAT 97
[2023-03-16] MEDS: Enoxaparin 40 MG/0.4 ML SYR SC (10:56)
[2023-03-16] MEDS: Nicotine 14 MG/24 HR PATCH TD (11:40)
--- NOTE | 2023-03-16 14:28 | PCPN_ITS ---
Date of service: 03/16/23 Time of Service: 14:28 Assessment and Plan Assessment and plan (1) Disoriented: Status: Acute Assessment and plan: William could not tell us where he was or what month we were in. He already has been assessed for capacity earlier this month; he lacks medical decision making capacity. Cannot explain his illnesses, or the likely outcomes from them, whether treated or not. Unable to understand what a CODE entails, or appreciate the likely outcome if he were to experience one. Given his advanced cancer and end-stage COPD, his chance of surviving a code is <5% and survival time, if he survives, is measured in hours, not days. He does have an AICD in place; he will be shocked when his heart goes into a fatal arrhythmia. But to put him through CPR and intubation is not only futile, but goes against the hippocratic oath of first do no harm. (2) Apnea: Status: Acute Assessment and plan: Noted during exam today. Up to 15 seconds at a time. Occurred when lying on his back, in bed, hed only slightly elevated. (3) Full code status: Status: Acute Assessment and plan: No longer will be full code as of today, due to futility. (4) Confusion: Status: Acute Assessment and plan: Worsening. Unable to make decisions. (5) Encounter for assessment of decision-making capacity: Status: Acute Assessment and plan: Has been deemed to lack capacity by multiple physicians who have cared for him over the last few weeks to months. Official capacity evaluation earlier this month, by Dr Carlson and myself. See notes. (6) Mass of gastroesophageal junction: Status: Acute (7) Goals of care, counseling/discussion: Status: Acute Assessment and plan: Unable to participate in any meaningful way. (8) PTSD (post-traumatic stress disorder): Status: Acute (9) Nonischemic dilated cardiomyopathy: Status: Acute (10) Social isolation: Status: Acute (11) Esophageal cancer: Status: Acute (12) Lung nodule: Status: Acute (13) Severe chronic obstructive pulmonary disease: Status: Chronic Subjective Subjective Patient reports: no new complaints, still having pain and shortness of breath Interval history since last seen: I was asked to see William, a 57 yo man with advanced esophageal cancer and end- stage COPD, with Dr Cruz to evaluate William for possible futility on his COLST form. According to [place] law, 2 physicians can determine if putting a patient through a code is so unlikely to work with a beneficial outcome that doing so is futile. Earlier this month, William was deemed to lack capacity to make his own medical decisions. Please see notes from Dr Carlson and myself detailing this process. Prior to losing capacity, William was unable to make up his mind definitively about his code status, despite multiple conversations about it with Shanique Gonzalez NP, his primary palliative care provider. According to his medical history, he has tended to make his decisions by default. For instance, he would not make up his mind about a feeding tube. Instead, he cancelled appointments for tube p lacement. His actions spoke louder than his words. He has no family members or others who can step in to make decisions for him. He does not qualify for a state guardianship as he is not yet 58 yo. For a few weeks now, he has had trouble swallowing. He has a near-obstructing esophageal cancer for which he did not want any treatment. Dr Lemus has been acting as his general surgeon. His COPD is end-stage. He is oxygen dependent. He was having 10-15 second apnea during my visit with Dr Cruz today. Today, as his usual now, William was confused. He could not tell us where he was or what month it was. He has both chronic severe lung and heart disease, on top of his large GI cancer. His chance of surviving a code is nearly nil. If he survived, he would likely live no more than a few hours. Given this, Dr Cruz and I agree that CPR, defibrillation and intubation would be futile and painful. After our joint visit, I signed as the consult on the [place] COLST form. Dr Cruz signed as the primary provider. Given his overall state of health, he will likely during this admission, though he may still live for several weeks, maybe 1-2 months. Exam Narrative Exam Narrative: William was lying on his back in bed, + [id number]-[id number] apnea, barrel chested, no acute respiratory distress hair is disheveled, he is pale, no obvious grimace, furrowed brow or moan eyes closed during most of the visit, open only for less than a second a few times. appear anicteric. heent hearing grossly intact, mmm, no runny nose, nasal canula in place neck no lad or jvd lungs distant, loudest over left chest, scattered wheeze, + intercostal muscle use cv distant, regular abd round, soft, nt, nd, +bs wnl ext + clubbing of fingernails, trace edema bilateral LE neuro not oriented to place or date psych anxious, frozen Objective Last Vital Signs Temp 97.7 F 03/16/23 08:51 Pulse 81 03/16/23 08:51 Resp 18 03/16/23 08:51 BP 108/72 03/16/23 08:51 Pulse Ox 97 03/16/23 08:51
[2023-03-17] MEDS: Benztropine 1 MG TAB PO (01:09)
[2023-03-17] MEDS: LORazepam 2 MG/1 ML Oral Concentrate 1 MG PO ×4 (01:10→19:37)
[2023-03-17] MEDS: Ipratropium 0.5 MG/2.5 ML UPD VIAL UPD (01:21)
[2023-03-17] MEDS: Levalbuterol 1.25 MG/3 ML UPD VIAL UPD (01:21)
[2023-03-17 01:51] VITALS: RESP 1
[2023-03-17] MEDS: LORazepam 1 MG TAB 2 MG PO (06:10)
[2023-03-17 07:26] VITALS: BP 102/60; PULSE 89; RESP 18; TEMP 37.4; O2SAT 96
[2023-03-17] MEDS: Budesonide/Formoterol 80/4.5 6.9 GM 60 PUFF INH IH ×2 (07:54→19:39)
[2023-03-17 07:55] VITALS: O2SAT 98
[2023-03-17 07:56] VITALS: O2SAT 95
[2023-03-17] MEDS: QUEtiapine 50 MG TAB PO (08:00)
[2023-03-17] MEDS: prednisoLONE SOD PHOS. Soln. 3 MG/ML 40 MG PO (08:00)
[2023-03-17] MEDS: buPROPion-XL 150 MG TABCR 300 MG PO (08:00)
--- NOTE | 2023-03-17 09:27 | PHA.REVIEW2 ---
Pharmacy Admission Review - Admission Clinical Review (Last Updated 02/19/23 @ 12:21 by Anay Gandhi MD) Pain (Acute) Anxiety with depression (Acute) Encounter for assessment of decision-making capacity (Acute) Full code status (Acute) Confusion (Acute) Deficit of personal bathing and hygiene (Acute) Discharge planning issues (Acute) COPD exacerbation (Acute) Goals of care, counseling/discussion (Acute) Dysphagia (Acute) PTSD (post-traumatic stress disorder) (Acute 09/27/15) Nonischemic dilated cardiomyopathy (Acute 09/27/15) History of tobacco abuse (Acute 10/01/17) Agoraphobia (Acute 09/27/15) Shortness of breath on exertion (Acute 11/07/15) Cardiac resynchronization therapy defibrillator (ENGINE TURNER-D) in place (Acute 09/27/15) Under care of mental health team (Acute) Family dysfunction (Acute) Social isolation (Acute) Esophageal cancer (Acute) Palliative care encounter (Acute) Oxygen dependent (Acute) No Known Allergies Allergy (Unverified 02/04/23 14:53) Resuscitation Status Full Code Height 5 ft 7 in Weight 75.75 kg - Renal Dosing Medications needing adjustments: Reviewed List of meds needing interventions: eCrCl 95 ml/min, no adjustments necessary - Anticoagulation Anticoagulation: Hgb 16.9 g/dL (13.5-17.5) 03/03/23 07:00 Hct 50.3 % (40.0-50.0) H 03/03/23 07:00 Plt Count 193 10^3/uL (130-400) 03/03/23 07:00 DVT Prophylaxis: Reviewed Medications: Enoxaparin - Opiate Usage Evaluate Pain Scale/Pains Meds: Reviewed (fentanyl 75 mcg patch, PO morphine q2h prn) Scheduled Bowel Reg ordered if on Opiates?: No (last BM 03/13, will notify) - Relevant Labs Electrolytes, C-Reactive P, ESR: N/A - DM Control DM Control: N/A - Cardiac Review BP, HR, EF%: Reviewed - Qtc Review QTc: N/A - IV to PO Switch IV Medications: N/A - Home Meds Home Med List reviewed: Intervened Relevent Home Meds Not ordered & why?: scheduled albuterol via updraft was dc'd - will notify provider about adding a prn HFA inh to MAR; adjusted home med list to reflect changes we made here (ie esomeprazole suspension, tapered off gabapentin, increased fentanyl patch, etc); not ordered: montelukast, pravastatin, tamsulosin -- not seemingly necessary given current medical picture - Current meds Current Medication Order Review: Reviewed
[2023-03-17] MEDS: Enoxaparin 40 MG/0.4 ML SYR SC (10:28)
[2023-03-17] MEDS: Nicotine 14 MG/24 HR PATCH TD (11:23)
[2023-03-17] MEDS: Polyethylene Glycol 3350 17 GM PACKET PO (11:27)
--- NOTE | 2023-03-17 16:45 | W.PALPGNOTE ---
Date of service: 03/17/23 Time of Service: 12:45 Assessment and Plan Assessment and plan (1) Confusion: Status: Acute (2) Deficit of personal bathing and hygiene: Status: Acute (3) Discharge planning issues: Status: Acute (4) Dysphagia: Status: Acute (5) PTSD (post-traumatic stress disorder): Status: Acute (6) Agoraphobia: Status: Acute (7) Shortness of breath on exertion: Status: Acute (8) Esophageal cancer: Status: Acute (9) Oxygen dependent: Status: Acute (10) Unintentional weight loss: (11) Pain: Status: Acute (12) Cardiac resynchronization therapy defibrillator (RN BONE MARROW TRANSPLANT-D) in place: Status: Acute (13) Under care of mental health team: Status: Acute (14) Social isolation: Status: Acute (15) Severe chronic obstructive pulmonary disease: Status: Chronic (16) Palliative care encounter: Status: Acute Assessment and plan: Community team meeting today: Now on swing bed status 2, self-pay, long-term Medicaid application remains pending, RN BONE MARROW TRANSPLANT program working on this, no updates available today, home health aide caregiver spoke to Yue gandhi/[facility] and it is optimistic she will be approved clinically, financial aspects remain to be barrier to an application; counsellor Toña available to help RN BONE MARROW TRANSPLANT as noted. No updates from [place] disability from RN BONE MARROW TRANSPLANT [facility] will continue to follow William's status closely. He will remain on SB status II at this time, consider re-admit pending uncontrolled sxs like pain management as needed. Futility DNR now in place, other LST to be determined on case by case basis pending medical necessity and evaluation of futility by two [facility] physicians at time of need Personal care provided today, continue with scheduled care with assistance provided from palliative as needed preference to avoid male providers, one on one visits as able, slow conversations w/gaps to allow for processing and questions as needed; Limit visits as possible to one-on-one, only 1 person speaking at a time Subjective Subjective Interval history since last seen: William participated in shower today. He seemed to do well with this. He is having increased difficulty swallowing solids, now crushing all pills, trial of pur?ed foods did not work, will continue to mash food, remains on small bite sized soft food diet. He is typically eating 25 to 50% of meals. he has not been complaining of pain continues with lorazepam [id number]-rhpsa while awake with good effect for agitation. Continues to use morphine for dyspnea and pain ordered for every 2 hours but happening less frequent than that as needed. Bowel patterns are unknown, MiraLAX given today, staff implementing strategies to try to monitor bowel status. Attempting to increase water intake and reduce coffee intake due to urine color being extremely dark, historically he has resisted drinking water. He has been more sleeping, increased confusion and increased wandering. Typically oriented to self, not place or time. He had apneic periods while sleeping yesterday, has been within normal limits today. Futility DNR in place as of yesterday Long-term friend Rico visiting today, William is a little skeptical about him visiting, however is agreeable for ongoing visit William denies complaints or concerns, continues to describe pain substernal and abdomen Exam Narrative Exam Narrative: General: ill appearing male, pale, NAD; comfortable; sitting in bedside chair upon arrival, pale HEENT: normocephalic, atraumatic, hearing WNL Resp: respiration within patient's normal limits; able to speak full sentences, limited to 1-2 sentences; no audible wheeze, prolonged expiration phase; Ext: moves all 4 extremities; no pedal edema; Neuro: tolerates independent sit to stand transfer from recliner to ; unsteady; awake and alert Psych: cooperative/agreeable, speech clear; affect anxious; thought content w/delusional thinking, paranoia; insight and judgment limited; fidgety Objective Last Vital Signs Temp 99.3 F 03/17/23 07:26 Pulse 89 03/17/23 07:26 Resp 18 03/17/23 07:26 BP 102/60 03/17/23 07:26 Pulse Ox 95 03/17/23 07:56
[2023-03-17 21:45] VITALS: O2SAT 94
[2023-03-18] VITALS (8 sets, daily range): BP systolic 109–142; BP diastolic 77–82; PULSE 57–80; RESP 4–18; TEMP 35.8–36.6; O2SAT 94–100
[2023-03-18] MEDS: LORazepam 1 MG TAB 2 MG PO ×2 (05:34→11:18)
[2023-03-18] MEDS: Ipratropium 0.5 MG/2.5 ML UPD VIAL UPD (05:34)
[2023-03-18] MEDS: Budesonide/Formoterol 80/4.5 6.9 GM 60 PUFF INH IH ×2 (07:47→20:22)
[2023-03-18] MEDS: QUEtiapine 50 MG TAB PO (07:58)
[2023-03-18] MEDS: buPROPion-XL 150 MG TABCR 300 MG PO (07:58)
[2023-03-18] MEDS: Polyethylene Glycol 3350 17 GM PACKET PO (07:59)
[2023-03-18] MEDS: prednisoLONE SOD PHOS. Soln. 3 MG/ML 40 MG PO (07:59)
[2023-03-18] MEDS: LORazepam 2 MG/1 ML Oral Concentrate 1 MG PO ×3 (07:59→20:22)
[2023-03-18] MEDS: Enoxaparin 40 MG/0.4 ML SYR SC (10:44)
[2023-03-18] MEDS: Nicotine 14 MG/24 HR PATCH TD (11:18)
[2023-03-18] MEDS: QUEtiapine 100 MG TAB PO (11:41)
--- NOTE | 2023-03-18 17:26 | CMPROGNOTE_ITS ---
Date of service: 03/18/23 Time of Service: 17:26 Care Management Progress Note Progress Note Text Progress Note Text: S/O: William has been increasingly confused. Today he went into a storage closet and urinated, and didn't remember this event shortly after when CM met with him. Per report, he did not receive his seroquel last night, as he didn't want to take it. William stated that he is in pain today, and CM informed his RN, who was preparing medication for him. CM talked to ROSA Kat, today who stated that he is clinically approved for long-term SUPRIYA, and now financial is pending. CM will continue to follow. A: William is a 57 year old male admitted to SWB at [facility] on 03/02/23. P: William remains on SWB, now level two, due to him not being safe to discharge home, and no accepting facility for SNF. He has a terminal makeup operator SUPRIYA application pending. He will remain at [facility] until he is able to transition to a SNF for long-term care. CM will continue to follow.?
[2023-03-18] MEDS: fentaNYL 75 MCG PATCH TD (17:28)
--- NOTE | 2023-03-18 17:31 | PDOC.CMACT ---
Date of service: 03/18/23 Time of Service: 17:32 Care Management Activity Note Activity Note Text Activity Note Text: MIRANDA has offered William activities, but he is not expressing interest in watching TV, puzzle books, adult coloring books, playing cards or other activities. He has a journal that he keeps close to him, as well as a comb, that he finds comfort in using occasionally. He also has some hunting/fishing magazines that he enjoys looking at often. MIRANDA and Shanique, Palliative Care, discussed incorporating a shower into William's schedule every 3-4 days. Shanique will support this plan, as needed. MIRANDA and Shanique have also discussed a plan to take William outside for short walks with staff supervision when the weather is nice; MIRANDA will continue to work on this plan, and to encourage William to engage in activities for life enrichment during his prolonged stay at [facility].
[2023-03-18] MEDS: Benztropine 1 MG TAB PO (21:56)
[2023-03-19] VITALS (8 sets, daily range): BP systolic 94–133; BP diastolic 61–82; PULSE 68–103; RESP 8–18; TEMP 35.8–36.2; O2SAT 97–99
--- NOTE | 2023-03-19 00:17 | NUR.NOTE ---
Nursing Note: Patient was witnessed by SAFE AND VAULT INSTALLER falling while on standing position, head was bumped to the wall and end up on sitting position. Prior to fall, this automobile service writer gave his bedtime meds while he was on recliner chair, alarm was in progress at that time but during fall event the alarm did not sound on, it was found on the sides of the chair. Patient is confused as baseline. Neuro checks was performed and no physical injury noted, although patient claimed of achy pain on his hip lines but refused to take pain reliever until this time when offered. Comfortably resting on bed, vital signs monitored per protocol.
[2023-03-19] MEDS: LORazepam 1 MG TAB 2 MG PO ×3 (01:17→17:30)
[2023-03-19] MEDS: Budesonide/Formoterol 80/4.5 6.9 GM 60 PUFF INH IH ×2 (07:55→21:02)
[2023-03-19] MEDS: QUEtiapine 50 MG TAB PO (08:16)
[2023-03-19] MEDS: Polyethylene Glycol 3350 17 GM PACKET PO (08:16)
[2023-03-19] MEDS: LORazepam 2 MG/1 ML Oral Concentrate 1 MG PO ×3 (08:16→20:15)
[2023-03-19] MEDS: buPROPion-XL 150 MG TABCR 300 MG PO (08:16)
[2023-03-19] MEDS: prednisoLONE SOD PHOS. Soln. 3 MG/ML 40 MG PO (08:17)
[2023-03-19] MEDS: Nicotine 14 MG/24 HR PATCH TD (10:54)
--- NOTE | 2023-03-19 12:18 | IN_ITS ---
PT Notes Visit Reasons: Gastroesophageal Mass Inpatient Physical Therapy Evaluation Date: 03/19/2023 Referring Doctor: Lore Lynne MD PT Orders: PT CONSULT: Evaluate Precautions: Falls Patient Profile/Admitting Diagnosis: 57-year-old male admitted to the hospital on March 04 PMHX: PFSH All Active Problems?(Updated 03/01/23 @ 17:07 by Shanique Gonzalez NP) Full code status (Acute) Confusion (Acute) Deficit of personal bathing and hygiene (Acute) DVT prophylaxis (Acute) Discharge planning issues (Acute) COPD exacerbation (Acute) Mass of gastroesophageal junction (Acute) Goals of care, counseling/discussion (Acute) Dysphagia (Acute) PTSD (post-traumatic stress disorder) (Acute 09/27/15) Nonischemic dilated cardiomyopathy (Acute 09/27/15) LVEF 20-25% 02/2014, 45-50% 10/2015, 55% 10/2017 History of tobacco abuse (Acute 10/01/17) History of alcohol abuse (Acute 09/27/15) Agoraphobia (Acute 09/27/15) Shortness of breath on exertion (Acute 11/07/15) Cardiac resynchronization therapy defibrillator (CONSTRUCTION OPERATIONS MANAGER-D) in place (Acute 09/27/15) 09/2014 Medtronic Viva XT CONSTRUCTION OPERATIONS MANAGER-D Under care of mental health team (Acute) Family dysfunction (Acute) Social isolation (Acute) Esophageal cancer (Acute) obstructing poorly differentiating pt has stated that he would not XRT or chemoPalliative care encounter (Acute) Pacemaker (Acute) Left kidney mass (Acute) superior pole US ordered 01/26/23Mass of upper lobe of right lung (Acute) by CTLung nodule (Acute) Oxygen dependent (Acute) Ambulatory dysfunction (Chronic) Severe chronic obstructive pulmonary disease (Chronic) Medical History?(Updated 03/01/23 @ 17:07 by Shanique Gonzalez NP) Abdominal pain pt state he has stopped smokingAcquired deformity of left hand Acute alteration in mental status Advance care planning Agoraphobia Altered mental status Ambulatory dysfunction AMS (altered mental status) Anxiety with depression Arthritis Biventricular implantable cardioverter-defibrillator (ICD) in situ Mode:DDD, Low rate 60bpm, Atrial lead: medtronic 5076, SN: [id number] 09/27/14; RV lead Medtronic 6935M SN: [id number] 09/27/14; LV lead Medtronic 4396, SN; [id number] 09/27/14 (updated 03/11/20)BPH (benign prostatic hyperplasia) Bullae Cardiomyopathy CHF (congestive heart failure) Chronic pain syndrome Cigarette smoker Cognitive impairment Constipation COPD (chronic obstructive pulmonary disease) Current smoker Cyst Dehydration Diabetes Diarrhea Dizziness Elevated d-dimer Encounter for hospice care discussion Erectile dysfunction Fatigue Hallucination Hand paresthesia Heart disease History of alcohol abuse History of suicidal ideation History of tobacco abuse Hyperlipidemia Hypotension Impacted ear wax LBBB (left bundle branch block) Left rib fracture Lethargy Lung bullae Lung disease Metacarpophalangeal joint pain Musculoskeletal chest pain Musculoskeletal chest pain Need for home health care Nightmares Noncompliance with medication regimen Nonischemic dilated cardiomyopathy Orthostatic hypotension Pain Pain in right hip Panic anxiety syndrome Peripheral neuropathic pain Personal history of nicotine dependence Polysubstance abuse PTSD (post-traumatic stress disorder) Respiratory failure with hypoxia and hypercapnia Rib fracture Skin lesion Syncope Systolic and diastolic CHF, chronic Tobacco abuse (09/27/15) Tobacco use Unintentional weight loss UTI (urinary tract infection) Wheezing (11/07/15) Surgical History? AICD (automatic cardioverter/defibrillator) present Status post biventricular pacemaker Social History/Home Situation: Difficult to assess due to his confusion, talking with his nurse, apparently he does have a home nearby which she will not be going back to. Current Functional Limitations: Independent with his bed mobilities Equipment Owned/DME: Wheeled walker, oxygen Subjective: I enter the room and the patient is resting comfortably in bed. Objective: General Observation: Disabled, but presently continues, but follows simple commands appropriately. No abnormal pain behavior noted Mental Status: Disoriented to time Pain: No complaints of pain offered Vital Signs: His resting pulse is107 bpm and his O2 sat is 93%, following short distance ambulation his pulse is 114 bpm and O2 sat is 97%. His respiratory rate was labored and 24 breaths/min ROM: His functional range of motion throughout. Strength: He has full motor control and strength is generally rated -5/5 Sensation: Reflexes symmetrical, fingertips to nose is accurate without ataxia, rapid spine movements intact Bed Mobility/Transfers: Independent with assuming the supine to sitting to standing positions Gait: He ambulated approximately 20 feet with FWW and minimal contact guarding with a stable gait. Balance: Static Sitting: Good Dynamic Sitting: Good Static Standing: Good Dynamic Standing: Fair Special Tests: Mobility Limitations Standardized Measure [facility]-PAC 6 clicks Basic Mobility Inpatient Short Form: Raw Score: 17 standardized Score: 37.26 CMS Score: 50.11% Informed Consent/Education: Patient instructed in purpose of PT consult and plan of care. Assessment: Patient is a 57year old male referred to physical therapy services with the diagnosis of COPD. Patient presents with clinical signs and symptoms consistent with this diagnosis, as demonstrated by the following impairment level findings: Poor exercise tolerance and generalized weakness throughout. Impairments are contributing to the following functional limitations: AMPAC score. Patient is assessed as a Moderate 04868 complexity based on the following: History: See comorbidities and social history Examination: See above for functional limitations and impairments Presentation: Evolving Decision Making: Moderate complexity Goals: Goals X1 week -Improved exercise tolerance and strength throughout -Increase walking distance to greater than 100 feet with a wheeled walker and standby supervision -Maintain bed mobility activities Plan of Care/Treatment Plan: 1-2x/day, 7 days/week x 1 week. Plan of care has been reviewed with the TOBACCO DRIER OPERATOR providing the service under Physical Therapy direction. Initiate Physical Therapy intervention for strengthening, bed mobility, transfers, gait, stairs, balance training, use of assistive device. DISCHARGE RECOMMENDATIONS: Custodial Care TREATMENT CODE/TIME: 9716 2/30 minutes Disclaimer: This note was created using [employer] voice recognition software. It was reviewed for major content. However, there may be multiple small discrepancies and errors due to the voice recognition aspects of the software.
[2023-03-19] MEDS: Levalbuterol 1.25 MG/3 ML UPD VIAL UPD (13:27)
--- NOTE | 2023-03-19 17:46 | PT.INTREAT ---
Date of service: 03/19/23 Time of Service: 14:12 PT Notes Visit Reasons: Gastroesophageal Mass Inpatient Physical Therapy Treatment Note [facility] Date: 03/19/23 PRECAUTIONS: Fall, standard, activity as tolerated. SUBJECTIVE: Patient seated EOB. Agreeable to therapy. OBJECTIVE: PAIN: none reported BED MOBILITY/TRANSFERS Sit-stand: Standby Stand-sit: Standby Bed-Chair: Standby Chair-bed: Standby THEREX: Seated exercises EOB including 2x10 long arc quads, heel raises, toe raises, hip ab/adduction, over-unders, seated marching, sit to stands. Patient becomes visibly short of breath with exertion and requires rest between sets. ASSESSMENT: Patient tolerates therapy well. PLAN: Continue strengthening per plan of care TREATMENT CODE/TIME: 57226 Ther Ex 25 minutes beginning at 1412
[2023-03-19] MEDS: Benztropine 1 MG TAB PO (21:02)
[2023-03-20] MEDS: Budesonide/Formoterol 80/4.5 6.9 GM 60 PUFF INH IH ×2 (07:47→20:01)
[2023-03-20 07:48] VITALS: O2SAT 95
[2023-03-20] MEDS: QUEtiapine 50 MG TAB PO (08:46)
[2023-03-20] MEDS: buPROPion-XL 150 MG TABCR 300 MG PO (08:46)
[2023-03-20] MEDS: LORazepam 2 MG/1 ML Oral Concentrate 1 MG PO ×3 (08:47→19:44)
[2023-03-20] MEDS: Polyethylene Glycol 3350 17 GM PACKET PO (08:47)
[2023-03-20] MEDS: prednisoLONE SOD PHOS. Soln. 3 MG/ML 40 MG PO (08:48)
[2023-03-20] MEDS: Nicotine 14 MG/24 HR PATCH TD (11:52)
[2023-03-20] MEDS: LORazepam 1 MG TAB 2 MG PO ×2 (11:56→21:09)
--- NOTE | 2023-03-20 13:05 | PT.INTREAT ---
Date of service: 03/20/23 Time of Service: 11:18 PT Notes Visit Reasons: Gastroesophageal Mass Inpatient Physical Therapy Treatment Note [facility] Date: 03/20/23 PRECAUTIONS: Fall, standard, activity as tolerated SUBJECTIVE: Patient sitting at edge of bed. Agreeable to therapy. OBJECTIVE: PAIN: none reported THEREX: Seated strengthening 2 x10 including long arc quads, marching, heel raises, toe raises. Sit to stands 2x5. Standing hamstring curls CGA with wall support. ASSESSMENT: Patient tolerates therapy well PLAN: Continue strengthening per plan of care. TREATMENT CODE/TIME: 86806 ther ex beginning at 11:18
[2023-03-20 15:01] VITALS: BP 98/64; PULSE 93; RESP 12; TEMP 35.6; O2SAT 90
[2023-03-20] MEDS: Benztropine 1 MG TAB PO (21:10)
[2023-03-21] MEDS: LORazepam 1 MG TAB 2 MG PO (06:46)
[2023-03-21 07:22] VITALS: BP 127/82; PULSE 108; RESP 14; TEMP 36.5; O2SAT 96
[2023-03-21] MEDS: Budesonide/Formoterol 80/4.5 6.9 GM 60 PUFF INH IH ×2 (07:27→20:28)
[2023-03-21 07:30] VITALS: O2SAT 98
[2023-03-21] MEDS: QUEtiapine 50 MG TAB PO (08:56)
[2023-03-21] MEDS: buPROPion-XL 150 MG TABCR 300 MG PO (08:57)
[2023-03-21] MEDS: Polyethylene Glycol 3350 17 GM PACKET PO (08:58)
[2023-03-21] MEDS: LORazepam 2 MG/1 ML Oral Concentrate 1 MG PO ×3 (09:07→20:28)
[2023-03-21] MEDS: prednisoLONE SOD PHOS. Soln. 3 MG/ML 40 MG PO (09:08)
[2023-03-21] MEDS: Nicotine 14 MG/24 HR PATCH TD (11:55)
--- NOTE | 2023-03-21 13:45 | PT.INTREAT ---
Date of service: 03/21/23 Time of Service: 10:40 PT Notes Visit Reasons: Gastroesophageal Mass Inpatient Physical Therapy Treatment Note [facility] Date: 03/21/23 PRECAUTIONS: Fall, standard, activity as tolerated SUBJECTIVE: Patient sitting on edge of bed, agreeable to therapy OBJECTIVE: PAIN: none reported BED MOBILITY/TRANSFERS Rolling L/R: independent Supine-sit: standby Sit-supine: standby Sit-stand: standby Stand-sit: standby Bed-Chair: standby Chair-bed: standby GAIT Assistive Device: none Weight bearing: full Assist: standby Distance: 50 feet Deviation: reduced yevgeniy, reduced arm swing, stiff posture THEREX: Sit to stands 2x5 with rests between. Diaphragmatic breathing, seated heel raises, toe raises, long arc quads, marching. STAIRS:[] ASSESSMENT: Patient tolerates therapy well PLAN: Continue increasing functional activity tolerance, begin emphasizing balance activities TREATMENT CODE/TIME: 48193 gait 15 minutes, 63151 ther ex 25 minutes beginning at 10:40
[2023-03-21] MEDS: fentaNYL 75 MCG PATCH TD (18:21)
[2023-03-21] MEDS: Benztropine 1 MG TAB PO (20:28)
[2023-03-22] MEDS: LORazepam 1 MG TAB 2 MG PO (03:53)
[2023-03-22] MEDS: Ipratropium 0.5 MG/2.5 ML UPD VIAL UPD (06:12)
[2023-03-22 06:42] VITALS: RESP 8
[2023-03-22] MEDS: Budesonide/Formoterol 80/4.5 6.9 GM 60 PUFF INH IH ×2 (07:51→19:46)
[2023-03-22] MEDS: prednisoLONE SOD PHOS. Soln. 3 MG/ML 40 MG PO (08:07)
[2023-03-22] MEDS: QUEtiapine 50 MG TAB PO (08:08)
[2023-03-22] MEDS: buPROPion-XL 150 MG TABCR 300 MG PO (08:08)
[2023-03-22] MEDS: LORazepam 2 MG/1 ML Oral Concentrate 1 MG PO ×3 (08:10→19:46)
[2023-03-22] MEDS: Polyethylene Glycol 3350 17 GM PACKET PO (08:10)
[2023-03-22 08:40] VITALS: BP 148/89; PULSE 102; RESP 20; TEMP 36.6; O2SAT 97
[2023-03-22] MEDS: Nicotine 14 MG/24 HR PATCH TD (11:55)
[2023-03-22 14:44] VITALS: O2SAT 96
[2023-03-22 14:50] VITALS: O2SAT 96
--- NOTE | 2023-03-22 15:09 | PT.INTREAT ---
Date of service: 03/22/23 Time of Service: 09:45 PT Notes Visit Reasons: Gastroesophageal [facility] Inpatient Physical Therapy Treatment Note [facility] Date: 03/22/23 PRECAUTIONS:[] SUBJECTIVE: [] OBJECTIVE: [] PAIN: [] BED MOBILITY/TRANSFERS Rolling L/R: [] Supine-sit: [] Sit-supine: [] Sit-stand: [] Stand-sit: [] Bed-Chair: [] Chair-bed: [] GAIT Assistive Device: [] Weight bearing: [] Assist: [] Distance: [] Deviation: [] VITALS: [] THEREX: [] STAIRS:[] ASSESSMENT: [] PLAN: [] TREATMENT CODE/TIME: []
[2023-03-22] MEDS: Benztropine 1 MG TAB PO (21:11)
[2023-03-23 07:10] VITALS: BP 131/80; PULSE 110; RESP 19; TEMP 36.7; O2SAT 95
[2023-03-23 07:39] VITALS: RESP 8
[2023-03-23] MEDS: Ipratropium 0.5 MG/2.5 ML UPD VIAL UPD ×2 (07:39→14:15)
[2023-03-23] MEDS: buPROPion-XL 150 MG TABCR 300 MG PO (07:41)
[2023-03-23] MEDS: Polyethylene Glycol 3350 17 GM PACKET PO (07:42)
[2023-03-23] MEDS: LORazepam 2 MG/1 ML Oral Concentrate 1 MG PO ×3 (07:42→19:25)
[2023-03-23] MEDS: prednisoLONE SOD PHOS. Soln. 3 MG/ML 40 MG PO (07:42)
[2023-03-23] MEDS: QUEtiapine 50 MG TAB PO (07:43)
[2023-03-23] MEDS: Budesonide/Formoterol 80/4.5 6.9 GM 60 PUFF INH IH ×2 (07:58→19:33)
[2023-03-23] MEDS: Nicotine 14 MG/24 HR PATCH TD (11:31)
[2023-03-23 12:36] VITALS: BP 103/69; PULSE 123; RESP 22; TEMP 36.9; O2SAT 92
[2023-03-23] MEDS: LORazepam 1 MG TAB 2 MG PO ×2 (12:38→21:56)
[2023-03-23] MEDS: Mylanta Suspension 30 ML CUP PO (12:38)
[2023-03-23 14:15] VITALS: RESP 8
--- NOTE | 2023-03-23 17:36 | PT.INTREAT ---
Date of service: 03/23/23 Time of Service: 11:45 PT Notes Visit Reasons: Gastroesophageal Mass Inpatient Physical Therapy Treatment Note [facility] Date: 03/23/23 PRECAUTIONS:fall, standard, activity as tolerated SUBJECTIVE: patient sitting EOB, agreeable to therapy. OBJECTIVE: PAIN: none reported THEREX: seated exercises including 10x heel raises, toe raises, marching, long arc quads, sit to stands. Standing exercises with contact guard including 10x marching with weight shift, hamstring curls. ASSESSMENT: Patient requires frequent redirection PLAN: continue strengthening per plan of care TREATMENT CODE/TIME: 65740 Ther Ex 16 minutes beginning at 11:45, 63575 Ther Ex 17 minutes beginning at 15:15
[2023-03-23] MEDS: Levalbuterol 1.25 MG/3 ML UPD VIAL UPD (19:01)
[2023-03-23] MEDS: Benztropine 1 MG TAB PO (21:50)
[2023-03-24] MEDS: Budesonide/Formoterol 80/4.5 6.9 GM 60 PUFF INH IH ×2 (07:58→19:11)
[2023-03-24 08:00] VITALS: O2SAT 95
[2023-03-24 09:08] VITALS: BP 97/70; PULSE 102; RESP 18; TEMP 36.9; O2SAT 95
[2023-03-24] MEDS: QUEtiapine 50 MG TAB PO (09:11)
[2023-03-24] MEDS: buPROPion-XL 150 MG TABCR 300 MG PO (09:11)
[2023-03-24] MEDS: Polyethylene Glycol 3350 17 GM PACKET PO (09:12)
[2023-03-24] MEDS: prednisoLONE SOD PHOS. Soln. 3 MG/ML 40 MG PO (09:13)
[2023-03-24] MEDS: LORazepam 2 MG/1 ML Oral Concentrate 1 MG PO ×3 (09:13→19:36)
[2023-03-24] MEDS: Nicotine 14 MG/24 HR PATCH TD (11:23)
[2023-03-24] MEDS: Acetaminophen Solution 650 MG/20.3 ML CUP PO (11:23)
--- NOTE | 2023-03-24 11:29 | CMPROGNOTE_ITS ---
Date of service: 03/24/23 Time of Service: 11:29 Care Management Progress Note Progress Note Text Progress Note Text: S/O: William was sitting up on the edge of the bed when CM met with him. He stated that he continues to have pain, and it is constant. CM encouraged William to discuss his pain with his RN. William stated that he took three showers yesterday; per chart review, he last had a shower on 03/22. CM received an email today that stated that his exterminator helper SUPRIYA was denied due to his financial paperwork not being completed in a timely manner. There is a team meeting this afternoon with William, where CM will address this. CM will continue to follow. A: William is a 57 year old male admitted to SWB at [facility] on 03/02/23. P: William remains on SWB, now level two, due to him not being safe to discharge home, and no accepting facility for SNF. He has a senior care SUPRIYA application pending. He will remain at [facility] until he is able to transition to a SNF for exterminator helper care. CM will continue to follow.?
--- NOTE | 2023-03-24 12:30 | PDOC.CMACT ---
Date of service: 03/24/23 Time of Service: 12:30 Care Management Activity Note Activity Note Text Activity Note Text: William has been increasingly confused, most times not knowing or recognizing where he is. He appears to recognize this fiction and nonfiction writer prose during visits. He has multiple catalogs in his room which he often looks through. He has his journal near him and states that he has been trying to take notes. He is being closely monitored by staff, at times with a sitter, when indicated.
--- NOTE | 2023-03-24 13:20 | NUR.NOTE ---
MARGIN ANALYST repsonded to bed alarm alert around 8:15 this morning. When asked what they needed pT stated a bathroom. MARGIN ANALYST responded by dragging the bedside commode over to the end of the bed. pT had a bm on commode. pT preceded to take lid and toliet seat off commode, take commode bucket w/stool to nearby trash can to empty. pT left commode bucket on floor in room. Nursing Note:
[2023-03-24] MEDS: fentaNYL 75 MCG PATCH TD (17:17)
--- NOTE | 2023-03-24 17:23 | PT.INTREAT ---
Date of service: 03/24/23 Time of Service: 10:50 PT Notes Visit Reasons: Gastroesophageal Mass Inpatient Physical Therapy Treatment Note [facility] Date: 03/24/23 PRECAUTIONS: Fall, standard, activity as tolerated SUBJECTIVE: Patient sitting up at edge of bed, agreeable to therapy OBJECTIVE: PAIN: none reported THEREX: seated 1x10 marches, long arc quads, heel raises, toe raises, hamstring pulls against therapist manual resistance. ASSESSMENT: Patient becomes short of breath with exertion, is easily distracted today and requires frequent redirection. PLAN: Per case management, patient is swing bed level 2. Discuss discharge from PT services with supervising PT. TREATMENT CODE/TIME: 13565 ther ex 15 minutes beginning at 9:10
[2023-03-24] MEDS: Benztropine 1 MG TAB PO (21:51)
[2023-03-24] MEDS: LORazepam 1 MG TAB 2 MG PO (23:18)
[2023-03-25] MEDS: Budesonide/Formoterol 80/4.5 6.9 GM 60 PUFF INH IH ×2 (07:47→19:19)
[2023-03-25] MEDS: QUEtiapine 50 MG TAB PO (08:39)
[2023-03-25] MEDS: buPROPion-XL 150 MG TABCR 300 MG PO (08:39)
[2023-03-25] MEDS: Acetaminophen Solution 650 MG/20.3 ML CUP PO ×2 (08:39→15:57)
[2023-03-25] MEDS: Polyethylene Glycol 3350 17 GM PACKET PO (08:39)
[2023-03-25] MEDS: prednisoLONE SOD PHOS. Soln. 3 MG/ML 40 MG PO (08:41)
[2023-03-25] MEDS: LORazepam 2 MG/1 ML Oral Concentrate 1 MG PO ×2 (08:43→13:10)
[2023-03-25 09:41] VITALS: BP 114/74; PULSE 109; RESP 14; TEMP 35.9; O2SAT 95
[2023-03-25] MEDS: Nicotine 14 MG/24 HR PATCH TD (13:09)
[2023-03-25] MEDS: LORazepam 1 MG TAB 2 MG PO (15:57)
[2023-03-25] MEDS: LORazepam 1 MG TAB PO (19:16)
[2023-03-25] MEDS: Benztropine 1 MG TAB PO (21:17)
[2023-03-26] MEDS: LORazepam 1 MG TAB 2 MG PO ×2 (05:27→19:15)
[2023-03-26 05:54] VITALS: RESP 4
[2023-03-26] MEDS: Levalbuterol 1.25 MG/3 ML UPD VIAL UPD ×2 (05:54→19:15)
[2023-03-26 06:19] VITALS: BP 115/78; PULSE 100; RESP 14; TEMP 36.2; O2SAT 94
[2023-03-26] MEDS: buPROPion-XL 150 MG TABCR 300 MG PO (07:42)
[2023-03-26] MEDS: LORazepam 1 MG TAB PO ×3 (07:42→21:28)
[2023-03-26] MEDS: QUEtiapine 50 MG TAB PO (07:43)
[2023-03-26] MEDS: prednisoLONE SOD PHOS. Soln. 3 MG/ML 40 MG PO (07:43)
[2023-03-26] MEDS: Polyethylene Glycol 3350 17 GM PACKET PO (07:43)
[2023-03-26] MEDS: Budesonide/Formoterol 80/4.5 6.9 GM 60 PUFF INH IH ×2 (08:06→19:27)
[2023-03-26] MEDS: Nicotine 14 MG/24 HR PATCH TD (12:25)
[2023-03-26 19:45] VITALS: RESP 4
[2023-03-26] MEDS: Benztropine 1 MG TAB PO (21:27)
[2023-03-27] MEDS: Budesonide/Formoterol 80/4.5 6.9 GM 60 PUFF INH IH ×2 (08:46→20:45)
[2023-03-27] MEDS: Polyethylene Glycol 3350 17 GM PACKET PO (09:29)
[2023-03-27] MEDS: LORazepam 1 MG TAB PO ×3 (09:29→21:10)
[2023-03-27] MEDS: Acetaminophen Solution 650 MG/20.3 ML CUP PO (09:29)
[2023-03-27] MEDS: QUEtiapine 50 MG TAB PO (09:30)
[2023-03-27] MEDS: buPROPion-XL 150 MG TABCR 300 MG PO (09:30)
[2023-03-27] MEDS: prednisoLONE SOD PHOS. Soln. 3 MG/ML 40 MG PO (09:31)
[2023-03-27 15:00] VITALS: BP 110/74; PULSE 90; RESP 16; TEMP 36.5; O2SAT 93
[2023-03-27] MEDS: Nicotine 14 MG/24 HR PATCH TD (15:09)
[2023-03-27] MEDS: fentaNYL 75 MCG PATCH TD (17:28)
[2023-03-27] MEDS: LORazepam 1 MG TAB 2 MG PO (19:33)
[2023-03-27] MEDS: Benztropine 1 MG TAB PO (22:44)
[2023-03-28 08:24] VITALS: BP 125/75; PULSE 101; RESP 18; TEMP 36.5; O2SAT 94
[2023-03-28] MEDS: QUEtiapine 50 MG TAB PO (08:47)
[2023-03-28] MEDS: buPROPion-XL 150 MG TABCR 300 MG PO (08:47)
[2023-03-28] MEDS: Polyethylene Glycol 3350 17 GM PACKET PO (08:47)
[2023-03-28] MEDS: LORazepam 1 MG TAB PO ×3 (08:47→21:58)
[2023-03-28] MEDS: prednisoLONE SOD PHOS. Soln. 3 MG/ML 40 MG PO (08:47)
[2023-03-28] MEDS: Budesonide/Formoterol 80/4.5 6.9 GM 60 PUFF INH IH ×2 (08:53→21:59)
[2023-03-28] MEDS: Nicotine 14 MG/24 HR PATCH TD (12:14)
[2023-03-28] MEDS: Benztropine 1 MG TAB PO (21:58)
[2023-03-29] VITALS (7 sets, daily range): BP systolic 114–138; BP diastolic 74–91; PULSE 96–108; RESP 18–20; TEMP 36.4–36.9; O2SAT 93–96
[2023-03-29] MEDS: Budesonide/Formoterol 80/4.5 6.9 GM 60 PUFF INH IH ×2 (07:52→19:30)
[2023-03-29] MEDS: prednisoLONE SOD PHOS. Soln. 3 MG/ML 40 MG PO (08:04)
[2023-03-29] MEDS: QUEtiapine 50 MG TAB PO (08:05)
[2023-03-29] MEDS: buPROPion-XL 150 MG TABCR 300 MG PO (08:05)
[2023-03-29] MEDS: Polyethylene Glycol 3350 17 GM PACKET PO (08:05)
[2023-03-29] MEDS: LORazepam 1 MG TAB PO ×3 (08:09→19:30)
[2023-03-29] MEDS: Nicotine 14 MG/24 HR PATCH TD (11:53)
[2023-03-29] MEDS: Levalbuterol 1.25 MG/3 ML UPD VIAL UPD (12:17)
[2023-03-29] MEDS: QUEtiapine 25 MG TAB PO (14:57)
[2023-03-29] MEDS: LORazepam 1 MG TAB 2 MG PO ×2 (14:58→22:32)
[2023-03-29] MEDS: Benztropine 1 MG TAB PO (21:18)
[2023-03-30 07:45] VITALS: BP 122/75; PULSE 116; RESP 20; TEMP 36.6; O2SAT 95
[2023-03-30] MEDS: Polyethylene Glycol 3350 17 GM PACKET PO (07:52)
[2023-03-30] MEDS: QUEtiapine 50 MG TAB PO (07:52)
[2023-03-30] MEDS: buPROPion-XL 150 MG TABCR 300 MG PO (07:52)
[2023-03-30] MEDS: LORazepam 1 MG TAB PO ×3 (07:52→19:08)
[2023-03-30] MEDS: prednisoLONE SOD PHOS. Soln. 3 MG/ML 40 MG PO (07:52)
[2023-03-30] MEDS: Budesonide/Formoterol 80/4.5 6.9 GM 60 PUFF INH IH ×2 (08:13→19:08)
[2023-03-30 09:23] VITALS: O2SAT 95
[2023-03-30] MEDS: Ipratropium 0.5 MG/2.5 ML UPD VIAL UPD (11:50)
[2023-03-30] MEDS: Nicotine 14 MG/24 HR PATCH TD (11:50)
[2023-03-30] MEDS: Levalbuterol 1.25 MG/3 ML UPD VIAL UPD (14:20)
[2023-03-30] MEDS: LORazepam 1 MG TAB 2 MG PO ×2 (16:20→21:43)
[2023-03-30] MEDS: fentaNYL 75 MCG PATCH TD (17:46)
[2023-03-30] MEDS: Benztropine 1 MG TAB PO (21:44)
[2023-03-31] MEDS: Budesonide/Formoterol 80/4.5 6.9 GM 60 PUFF INH IH ×2 (07:55→19:29)
[2023-03-31 07:57] VITALS: O2SAT 88
--- NOTE | 2023-03-31 10:55 | NUR.NOTE ---
Nursing Note: Morning meds delayed d/t pt sleeping. Pt reportedly had poor sleep overnight. Chest rise and fall noted, skin pale but baseline. Pulse ox checked while sleeping = HR 94 SpO2 91%
[2023-03-31] MEDS: LORazepam 1 MG TAB PO ×3 (11:14→19:25)
[2023-03-31] MEDS: QUEtiapine 50 MG TAB PO (11:14)
[2023-03-31] MEDS: buPROPion-XL 150 MG TABCR 300 MG PO (11:14)
[2023-03-31] MEDS: Polyethylene Glycol 3350 17 GM PACKET PO (11:15)
[2023-03-31] MEDS: prednisoLONE SOD PHOS. Soln. 3 MG/ML 40 MG PO (11:24)
[2023-03-31] MEDS: Nicotine 14 MG/24 HR PATCH TD (13:24)
[2023-03-31 14:47] VITALS: BP 121/74; PULSE 117; RESP 20; TEMP 37.3; O2SAT 94
[2023-03-31] MEDS: Acetaminophen Solution 650 MG/20.3 ML CUP PO (20:22)
[2023-03-31] MEDS: Benztropine 1 MG TAB PO (20:23)
[2023-03-31] MEDS: diphenhydrAMINE Elixir 25 MG/10 ML CUP PO (20:23)
[2023-03-31 22:31] VITALS: O2SAT 95
[2023-04-01] MEDS: LORazepam 1 MG TAB 2 MG PO ×2 (02:53→12:22)
[2023-04-01] MEDS: Budesonide/Formoterol 80/4.5 6.9 GM 60 PUFF INH IH ×2 (07:47→19:26)
[2023-04-01] MEDS: buPROPion-XL 150 MG TABCR 300 MG PO (08:31)
[2023-04-01] MEDS: QUEtiapine 50 MG TAB PO (08:31)
[2023-04-01] MEDS: Polyethylene Glycol 3350 17 GM PACKET PO (08:31)
[2023-04-01] MEDS: LORazepam 1 MG TAB PO ×3 (08:31→19:35)
[2023-04-01] MEDS: prednisoLONE SOD PHOS. Soln. 3 MG/ML 40 MG PO (08:32)
[2023-04-01 12:05] VITALS: BP 148/72; PULSE 110; RESP 20; TEMP 37.2; O2SAT 93
[2023-04-01] MEDS: Nicotine 14 MG/24 HR PATCH TD (12:42)
[2023-04-01] MEDS: fentaNYL 100 MCG PATCH TD (17:01)
[2023-04-01] MEDS: Benztropine 1 MG TAB PO (19:35)
[2023-04-01 19:57] LABS: Abs Immature Grans 0.11 10^3/uL (0.0-0.06); Absolute Basophil Count 0.04 10^3/uL (0.0-0.2); Absolute Eosinophil Count 0.01 10^3/uL (0.0-0.7); Absolute Lymphocyte Count 0.68 10^3/uL (1.2-3.4); Absolute Monocyte Count 1.02 10^3/uL (0.1-0.8); Basophils % 0.3; Eosinophils % 0.1; HCT 43.3 % (40.0-50.0); HGB 14.9 g/dL (13.5-17.5); Immature Grans % 0.9; Lymphocytes % 5.3; MCH 30.6 pg (27.0-33.0); MCHC 34.4 % (32.0-36.0); MCV 89 fL (80-95); MPV 10.6 fL (8.0-11.0); Monocytes % 7.9; Neutrophils % 85.5; Platelet Count 194 10^3/uL (130-400); RBC 4.87 10^6/uL (4.36-5.78); RDW 13.4 % (11.8-14.1); WBC 12.89 10^3/uL (4.4-10.8)
[2023-04-01 20:08] LABS: Absolute Neutrophil Count 11.02 10^3/uL (1.2-6.7)
[2023-04-01 20:12] LABS: ALT 52 U/L (16-63); AST 17 U/L (15-37); Albumin 3.3 g/dL (3.4-5.0); Alkaline Phosphatase 84 U/L (46-116); Anion Gap 4.3 mmol/L (3-11); BUN 13 mg/dL (7-18); Bilirubin, Total 0.4 mg/dL (0.2-1.0); CO2 30.7 mmol/L (21.0-32.0); Calcium 9.6 mg/dL (8.5-10.1); Chloride 103 mmol/L (98-107); Glucose 170 mg/dL (74-106); Magnesium 2.1 mg/dL (1.8-2.4); Potassium 4.4 mmol/L (3.5-5.1); Sodium 138 mmol/L (136-145); Total Protein 6.9 g/dL (6.4-8.2)
--- NOTE | 2023-04-02 07:47 | CMPROGNOTE_ITS ---
Date of service: 04/02/23 Time of Service: 07:47 Care Management Progress Note Progress Note Text Progress Note Text: S/O: William was sitting up in his chair when CM met with him. He has been increasingly confused, most times not knowing or recognizing where he is. He reported to CM that he has been up playing with the dog. He has his journal on his bedside table. He listens to music occasionally and watches TV. He is being closely monitored by staff, at times with a sitter, when indicated. A: William is a 57 year old male admitted to SWB at [facility] on 03/02/23. P: William remains on SWB, now level two, due to him not being safe to discharge home, and no accepting facility for SNF. He has a assisted SUPRIYA application pending. He will remain at [facility] until he is able to transition to a SNF for rodent exterminator care. CM will continue to follow.
[2023-04-02] MEDS: Budesonide/Formoterol 80/4.5 6.9 GM 60 PUFF INH IH ×2 (07:49→19:57)
[2023-04-02 07:52] VITALS: O2SAT 3
[2023-04-02 10:29] VITALS: BP 116/71; PULSE 78; RESP 12; TEMP 36.2; O2SAT 96
[2023-04-02] MEDS: LORazepam 1 MG TAB PO ×3 (10:58→19:55)
[2023-04-02] MEDS: QUEtiapine 50 MG TAB PO (10:58)
[2023-04-02] MEDS: prednisoLONE SOD PHOS. Soln. 3 MG/ML 40 MG PO (11:04)
[2023-04-02 11:46] VITALS: BP 92/63; PULSE 106; RESP 14; TEMP 36.6; O2SAT 93
[2023-04-02] MEDS: Nicotine 14 MG/24 HR PATCH TD (13:41)
--- NOTE | 2023-04-02 16:23 | PDOC.CMACT ---
Date of service: 04/02/23 Time of Service: 16:24 Care Management Activity Note Activity Note Text Activity Note Text: William has been increasingly confused, most times not knowing or recognizing where he is. He has multiple catalogs in his room which he often looks through. He has his journal on his bedside table. He listens to music occaisionally. He is being closely monitored by staff, at times with a sitter, when indicated.
[2023-04-02 16:55] VITALS: PULSE 82; RESP 16; RESP 4; O2SAT 97
[2023-04-02] MEDS: Levalbuterol 1.25 MG/3 ML UPD VIAL UPD (16:55)
[2023-04-02 17:01] VITALS: O2SAT 98
[2023-04-03] MEDS: Polyethylene Glycol 3350 17 GM PACKET PO (07:54)
[2023-04-03] MEDS: QUEtiapine 50 MG TAB PO (07:54)
[2023-04-03] MEDS: buPROPion-XL 150 MG TABCR 300 MG PO (07:54)
[2023-04-03] MEDS: LORazepam 1 MG TAB PO ×2 (07:54→14:34)
[2023-04-03] MEDS: prednisoLONE SOD PHOS. Soln. 3 MG/ML 40 MG PO (07:55)
[2023-04-03] MEDS: Budesonide/Formoterol 80/4.5 6.9 GM 60 PUFF INH IH (08:27)
[2023-04-03 12:18] VITALS: BP 105/74; PULSE 98; RESP 20; TEMP 36.7; O2SAT 88
[2023-04-03] MEDS: Nicotine 14 MG/24 HR PATCH TD (12:20)
[2023-04-03] MEDS: LORazepam 1 MG TAB 2 MG PO (12:20)
--- NOTE | 2023-04-03 21:00 | NUR.NOTE ---
Upon bringing in pts hs medications and setting them down pt appears to be labored breathing but not agitated. he did not want to take his medications however. pt got agitated when he was asked about taking his medication, ripping off his o2 and telling myself and sitter to back off. Pt confused.This RN attempted a few more times and for 45 minutes to get him to take his medications but continued refusal. This RN has backed off and given him some space, pt continues to be agitated and refuse medication and vital signs. air hungry labored breathing apparent. impulsive behavior like trying to rip his oxygen tubing and trying to run out in the hallway to see whats going on. This RN will attempt to return to room and give medications again after some time has passed. sully.
[2023-04-04] MEDS: LORazepam 1 MG TAB 2 MG PO ×2 (05:43→12:07)
[2023-04-04 06:02] VITALS: BP 124/74; PULSE 94; RESP 20; TEMP 36.5; O2SAT 96
[2023-04-04 06:06] VITALS: RESP 2; RESP 4; RESP 7
[2023-04-04] MEDS: Levalbuterol 1.25 MG/3 ML UPD VIAL UPD ×2 (06:06→12:03)
[2023-04-04] MEDS: Budesonide/Formoterol 80/4.5 6.9 GM 60 PUFF INH IH ×2 (08:40→19:31)
[2023-04-04] MEDS: QUEtiapine 50 MG TAB PO (08:55)
[2023-04-04] MEDS: LORazepam 1 MG TAB PO ×2 (08:56→21:04)
[2023-04-04] MEDS: prednisoLONE SOD PHOS. Soln. 3 MG/ML 40 MG PO (10:04)
[2023-04-04 12:03] VITALS: PULSE 121; O2SAT 93
[2023-04-04] MEDS: Nicotine 14 MG/24 HR PATCH TD (12:10)
[2023-04-04] MEDS: Haloperidol 5 MG TAB PO (12:38)
[2023-04-04] MEDS: diphenhydrAMINE Elixir 25 MG/10 ML CUP 50 MG PO (12:38)
[2023-04-04] MEDS: fentaNYL 100 MCG PATCH TD (16:46)
[2023-04-04] MEDS: Benztropine 1 MG TAB PO (21:05)
[2023-04-05] MEDS: Budesonide/Formoterol 80/4.5 6.9 GM 60 PUFF INH IH ×2 (08:04→19:36)
[2023-04-05 08:06] VITALS: O2SAT 81
[2023-04-05] MEDS: buPROPion-XL 150 MG TABCR 300 MG PO (08:44)
[2023-04-05] MEDS: LORazepam 1 MG TAB PO ×3 (08:44→19:56)
[2023-04-05] MEDS: QUEtiapine 50 MG TAB PO (08:44)
[2023-04-05] MEDS: prednisoLONE SOD PHOS. Soln. 3 MG/ML 40 MG PO (08:44)
[2023-04-05 09:05] VITALS: BP 115/67; PULSE 110; RESP 22; TEMP 36.9; O2SAT 94
[2023-04-05] MEDS: Nicotine 14 MG/24 HR PATCH TD (15:16)
[2023-04-05 15:42] VITALS: O2SAT 96
[2023-04-05] MEDS: diphenhydrAMINE Elixir 25 MG/10 ML CUP PO (19:54)
[2023-04-06] MEDS: Budesonide/Formoterol 80/4.5 6.9 GM 60 PUFF INH IH ×2 (07:38→19:15)
[2023-04-06 07:53] VITALS: BP 116/73; PULSE 110; RESP 20; TEMP 37.3; O2SAT 94
[2023-04-06] MEDS: buPROPion-XL 150 MG TABCR 300 MG PO (07:53)
[2023-04-06] MEDS: LORazepam 1 MG TAB PO ×2 (07:53→16:25)
[2023-04-06] MEDS: QUEtiapine 50 MG TAB PO (07:54)
[2023-04-06] MEDS: prednisoLONE SOD PHOS. Soln. 3 MG/ML 40 MG PO (08:07)
[2023-04-06] MEDS: Nicotine 14 MG/24 HR PATCH TD (11:10)
[2023-04-06] MEDS: LORazepam 1 MG TAB 2 MG PO ×2 (11:11→18:25)
[2023-04-06] MEDS: Calcium Carbonate *TUMS* 500 MG CHEW PO (11:56)
--- NOTE | 2023-04-06 16:24 | W.PALPGNOTE ---
Date of service: 04/06/23 Time of Service: 16:00 Assessment and Plan Assessment and plan (1) Confusion: Status: Acute (2) Deficit of personal bathing and hygiene: Status: Acute (3) Discharge planning issues: Status: Acute (4) Dysphagia: Status: Acute (5) PTSD (post-traumatic stress disorder): Status: Acute (6) Agoraphobia: Status: Acute (7) Shortness of breath on exertion: Status: Acute (8) Esophageal cancer: Status: Acute (9) Oxygen dependent: Status: Acute (10) Unintentional weight loss: (11) Pain: Status: Acute (12) Cardiac resynchronization therapy defibrillator (EXTRUDER-D) in place: Status: Acute (13) Under care of mental health team: Status: Acute (14) Social isolation: Status: Acute (15) Severe chronic obstructive pulmonary disease: Status: Chronic (16) Palliative care encounter: Status: Acute Assessment and plan: personal care provided today: shower cap and wash, denies oral care and additional clean up - RN to give morphine at end of visit, continue regular check ins and dosing of Ativan or morphine as needed - continues to tolerate liquids and soft solids sister Bao will no longer be visiting; William has consistently requested she is not involved, I do not feel she will be returning, but notified nursing staff just in case; continue Ativan dosing, anticipate increased anxiety as he continues to come down from today's visitation his LTM application was denied d/t incomplete financial paperwork/interview process, EXTRUDER is working on filing a petition to re-submit w/exceptions and w/more financial information which counsellor Toña Orosco whom has previously offered assistance w/this information and has received consents from William to assist in these matters - CM at [facility] to consider re-submitting application for the [place] now that he has a futility DNR, w/the plan that if respiratory distress or defibrillator goes off they will call 911 and present to ED, where medical management can return to [facility] physicians, following SARAH recommendations for considering futility for LST interventions as they present PC will continue to follow William's status closely. He will remain on SB status II at this time, consider re-admit pending uncontrolled sxs like pain management as needed. Futility DNR now in place, other LST to be determined on case by case basis pending medical necessity and evaluation of futility by two [facility] physicians at time of need preference to avoid male providers, one on one visits as able, slow conversations w/gaps to allow for processing and questions as needed; Limit visits as possible to one-on-one, only 1 person speaking at a time community team meeting scheduled for tomorrow at 15:30 Subjective Subjective Interval history since last seen: William reports ongoing pain worse in chest and belly, also in shoulder and hips; has been having leg cramping as well, but not bothersome and self-resolves; he would like a cigarette He has water and coffee at bedside and denies issues with swallowing these His sister visited him today, and he is not interested in having her return, he does not trust her intentions per staff: has moved bowels in last 2 days, continues to eat 25-50% of meals, refused lunch today d/t being upset w/sister visiting; required Ativan x2 after visit w/sister, appears more calm now and has been sleeping more after visit; due for morphine now, has been giving regularly w/SOB and grimacing, he often does not report pain sister Bao visited yesterday and was instructed to call me (Shanique Gonzalez); she had no idea he was hospitalized or where he had been, however she hadn't been looking for him either as they haven't spoken in around 5 years; she wants to know more information about his care, and understands that no information can be shared w/her; she has opted out of pursuing obtaining emergency guardianship d/t fears of ruining her relationship w/him and feeling like current guardian can do a better job than she could. She visited again today, and he asked her to not come back, and she has decided to follow his request Exam Narrative Exam Narrative: General: ill appearing male, pale, NAD; comfortable; sitting in bedside chair upon arrival, pale HEENT: normocephalic, atraumatic, hearing WNL Resp: respiration within patient's normal limits; able to speak full sentences, limited to 1-2 sentences; no audible wheeze, prolonged expiration phase; difficulty reapplying NC tubing, grunting w/NC not in place after 3 mins Ext: moves all 4 extremities; no pedal edema, non-tender to palpation, DP pulse 2+ Neuro: unable to stand steady, sits immediately; awake and alert Psych: cooperative/agreeable, speech clear; affect anxious; thought content w/delusional thinking, paranoia; insight and judgment limited; fidgety Objective Last Vital Signs Temp 99.1 F 04/06/23 07:53 Pulse 110 H 04/06/23 07:53 Resp 20 04/06/23 07:53 BP 116/73 04/06/23 07:53 Pulse Ox 94 04/06/23 07:53
[2023-04-07 07:24] VITALS: BP 102/75; PULSE 67; RESP 20; TEMP 37.1; O2SAT 95
[2023-04-07 07:45] VITALS: O2SAT 94
[2023-04-07] MEDS: Budesonide/Formoterol 80/4.5 6.9 GM 60 PUFF INH IH (07:58)
[2023-04-07 08:01] VITALS: O2SAT 92
[2023-04-07] MEDS: QUEtiapine 50 MG TAB PO (08:15)
[2023-04-07] MEDS: LORazepam 1 MG TAB PO ×3 (08:16→20:36)
[2023-04-07] MEDS: buPROPion-XL 150 MG TABCR 300 MG PO (08:16)
[2023-04-07] MEDS: Polyethylene Glycol 3350 17 GM PACKET PO (08:16)
[2023-04-07] MEDS: prednisoLONE SOD PHOS. Soln. 3 MG/ML 40 MG PO (08:21)
[2023-04-07] MEDS: diphenhydrAMINE Elixir 25 MG/10 ML CUP PO ×2 (11:15→18:16)
[2023-04-07] MEDS: Nicotine 14 MG/24 HR PATCH TD (11:16)
[2023-04-07] MEDS: fentaNYL 100 MCG PATCH TD (15:08)
--- NOTE | 2023-04-07 17:23 | W.PALPGNOTE ---
Date of service: 04/07/23 Time of Service: 15:00 Assessment and Plan Assessment and plan (1) Confusion: Status: Acute (2) Deficit of personal bathing and hygiene: Status: Acute (3) Discharge planning issues: Status: Acute (4) Dysphagia: Status: Acute (5) PTSD (post-traumatic stress disorder): Status: Acute (6) Agoraphobia: Status: Acute (7) Shortness of breath on exertion: Status: Acute (8) Esophageal cancer: Status: Acute (9) Oxygen dependent: Status: Acute (10) Unintentional weight loss: (11) Pain: Status: Acute (12) Cardiac resynchronization therapy defibrillator ([employer]-D) in place: Status: Acute (13) Under care of mental health team: Status: Acute (14) Social isolation: Status: Acute (15) Severe chronic obstructive pulmonary disease: Status: Chronic (16) Palliative care encounter: Status: Acute Assessment and plan: Community team meeting today: OBI will continue to pursue long-term Medicaid application petition and appeal the denial. Reviewed concern over sisters presence in his life and involvement versus providing assistance with guardianship, reviewed current office of obtaining emergency guardianship, it was done correctly so far, at this time it is up to Bao to pursue guardianship if she would like to or not, she will not be led to make a decision regarding this, Toña will not be contacting or speaking to her due to no release; team meeting 60 minutes Bao would like to continue contact with William whether on the phone, mail or any means that he would be comfortable with, is aware that it was requested that she does not visit due to how it makes him upset, this was confusing today and asking her to stay today, even if he asked her to leave yesterday; phone calls w/Bao 35 minutes Direct patient care time: 30 mins - Anticipate increased anxiety and air hunger today d/t stress of today's visit PC will continue to follow William's status closely. He will remain on SB status II at this time, consider re-admit pending uncontrolled sxs like pain management as needed. Futility DNR now in place, other LST to be determined on case by case basis pending medical necessity and evaluation of futility by two [facility] physicians at time of need preference to avoid male providers, one on one visits as able, slow conversations w/gaps to allow for processing and questions as needed; Limit visits as possible to one-on-one, only 1 person speaking at a time Subjective Subjective Interval history since last seen: Current physical health is remained largely stable, he reports he is having a hard breathing day, he feels that in the end Dev[place]kiy to get me regarding to his breathing, endorses pain ongoing substernal, abdomen pain worse., Continues to tolerate fluids and food. That was a weird dream , unable to qualify dream or what he is thinking about, worries about people walking by his room His Sister Bao Diehl started visiting him 2 days ago, the first visit he asked her to leave, saying he did not want her there, second visit this morning she was asked to leave by nursing due to increased anxiety after yesterday's visit, William appeared to not want her to leave, walked out with her, held onto her in the elevator wanting her to stay, he has been more anxious with increased difficulty breathing, confusion and attempting to back bags to go home, he has had more air hunger with oxygen up to 4 L with good effect Bao reached out to this provider directly, I directed her towards information for obtaining emergency temporary guardianship through the [place] due to [place] system as instructed from the [employer] program for people worried about loved ones and concerns regarding their care and medical decision making. Bao was upset with being asked to leave because she saw that it caused him distress, she is unsure she can complete paperwork, was told by [facility] that she had no grounds to obtain for guardianship without more specific information, she is considering on access to do she is aware that she could continue to file for this, she wants to continue talking to him and wonders if she can leave messages or mail him things Order provided for direct line at [facility] [id number] Exam Narrative Exam Narrative: General: ill appearing male, pale, NAD; comfortable; sitting in bedside chair upon arrival, pale HEENT: normocephalic, atraumatic, hearing WNL Resp: respiration within patient's normal limits; able to speak full sentences, limited to 1-2 sentences; no audible wheeze, prolonged expiration phase; difficulty reapplying NC tubing, grunting w/NC not in place after 3 mins Ext: moves all 4 extremities; no pedal edema, non-tender to palpation, DP pulse 2+ Neuro: unable to stand steady, sits immediately; awake and alert Psych: cooperative/agreeable, speech clear; affect anxious; thought content w/delusional thinking, paranoia; insight and judgment limited; fidgety, jumps when people walk by door, describes seeing black spot on floor where there is only white tile; restless; avoid eye content Objective Last Vital Signs Temp 98.8 F 04/07/23 07:24 Pulse 67 04/07/23 07:24 Resp 20 04/07/23 07:24 BP 102/75 04/07/23 07:24 Pulse Ox 92 04/07/23 08:01
[2023-04-07 20:00] VITALS: O2SAT 93
[2023-04-08] MEDS: LORazepam 1 MG TAB PO ×3 (08:20→19:56)
[2023-04-08] MEDS: QUEtiapine 50 MG TAB PO (08:20)
[2023-04-08] MEDS: Budesonide/Formoterol 80/4.5 6.9 GM 60 PUFF INH IH ×2 (08:38→20:23)
[2023-04-08] MEDS: buPROPion-XL 150 MG TABCR 300 MG PO (08:46)
[2023-04-08] MEDS: Polyethylene Glycol 3350 17 GM PACKET PO (08:47)
[2023-04-08] MEDS: prednisoLONE SOD PHOS. Soln. 3 MG/ML 40 MG PO (08:48)
[2023-04-08 09:20] VITALS: BP 126/68; PULSE 120; RESP 18; TEMP 36.6; O2SAT 94
--- NOTE | 2023-04-08 11:07 | CMPROGNOTE_ITS ---
Date of service: 04/08/23 Time of Service: 11:07 Care Management Progress Note Progress Note Text Progress Note Text: MIRANDA has offered William activities, but he is not expressing interest in watching TV, puzzle books, adult coloring books, playing cards or other activities. He has a journal that he keeps close to him, as well as a comb, that he finds comfort in using occasionally. He also has some hunting/fishing magazines that he enjoys looking at often. MIRANDA will continue to encourage William to engage in activities for life enrichment during his prolonged stay at [facility].
[2023-04-08] MEDS: LORazepam 1 MG TAB 2 MG PO (11:59)
[2023-04-08] MEDS: Nicotine 14 MG/24 HR PATCH TD (11:59)
[2023-04-08] MEDS: Acetaminophen Solution 650 MG/20.3 ML CUP PO (15:00)
[2023-04-08] MEDS: diphenhydrAMINE Elixir 25 MG/10 ML CUP PO (18:23)
[2023-04-08 19:00] VITALS: O2SAT 94
[2023-04-08] MEDS: Benztropine 1 MG TAB PO (21:22)
[2023-04-09] MEDS: Polyethylene Glycol 3350 17 GM PACKET PO (07:52)
[2023-04-09] MEDS: LORazepam 1 MG TAB PO ×3 (07:52→21:29)
[2023-04-09] MEDS: QUEtiapine 50 MG TAB PO (07:52)
[2023-04-09] MEDS: buPROPion-XL 150 MG TABCR 300 MG PO (07:52)
[2023-04-09] MEDS: prednisoLONE SOD PHOS. Soln. 3 MG/ML 40 MG PO (08:07)
[2023-04-09] MEDS: Budesonide/Formoterol 80/4.5 6.9 GM 60 PUFF INH IH ×2 (08:33→21:31)
[2023-04-09 08:34] VITALS: O2SAT 96
[2023-04-09 09:52] VITALS: O2SAT 96
[2023-04-09 10:23] VITALS: BP 120/88; PULSE 114; TEMP 36.8; O2SAT 95
[2023-04-09] MEDS: Acetaminophen Solution 650 MG/20.3 ML CUP PO (10:37)
[2023-04-09] MEDS: LORazepam 1 MG TAB 2 MG PO (10:37)
[2023-04-09] MEDS: Nicotine 14 MG/24 HR PATCH TD (13:38)
[2023-04-09] MEDS: Haloperidol 5 MG TAB PO (14:25)
--- NOTE | 2023-04-09 15:35 | NUR.NOTE ---
Nursing Note: 1020: Found pt sitting on the floor with O2 out, pt stated he fell down. Vitals obtained; SOB with respirations in 30s, tachy to 115; otherwise stable. Assisted pt back to bed and completed full body assessment. c/o pain on his bottom-no visual injuries. 2 new skin tears on R upper arm assessed; minimally bleeding-applied gauze & tegaderm to wounds. Administered PRN Ativan and morphine to calm pt. Pt has been impulsive and uncooperative throughout entire shift, setting bed alarm off consistently. Administering PRN medications as ordered. obtained 1x order 5mg of PO Haldol & increased dosage of evening seroquel. Bed alarm in place, will continue to monitor and adjust interventions as necessary.
[2023-04-09] MEDS: Benztropine 1 MG TAB PO (21:28)
[2023-04-10 08:17] VITALS: O2SAT 96
[2023-04-10] MEDS: Budesonide/Formoterol 80/4.5 6.9 GM 60 PUFF INH IH ×2 (08:17→19:58)
[2023-04-10] MEDS: buPROPion-XL 150 MG TABCR 300 MG PO (08:48)
[2023-04-10] MEDS: LORazepam 1 MG TAB PO ×3 (08:49→19:59)
[2023-04-10] MEDS: QUEtiapine 50 MG TAB 100 MG PO (08:49)
[2023-04-10] MEDS: Polyethylene Glycol 3350 17 GM PACKET PO (08:50)
[2023-04-10] MEDS: prednisoLONE SOD PHOS. Soln. 3 MG/ML 40 MG PO (08:50)
[2023-04-10 11:27] VITALS: PULSE 112; RESP 19; RESP 8; O2SAT 95
[2023-04-10] MEDS: Levalbuterol 1.25 MG/3 ML UPD VIAL UPD (11:27)
[2023-04-10 11:28] VITALS: PULSE 114; RESP 19; RESP 8; O2SAT 96
[2023-04-10] MEDS: Acetaminophen Solution 650 MG/20.3 ML CUP PO (12:35)
[2023-04-10] MEDS: LORazepam 1 MG TAB 2 MG PO (12:36)
[2023-04-10] MEDS: Nicotine 14 MG/24 HR PATCH TD (12:36)
[2023-04-10] MEDS: Haloperidol 5 MG TAB PO ×2 (13:43→21:08)
[2023-04-10] MEDS: fentaNYL 100 MCG PATCH TD (15:51)
[2023-04-10] MEDS: Benztropine 1 MG TAB PO (19:59)
[2023-04-11 07:53] VITALS: BP 110/70; PULSE 93; RESP 18; TEMP 37.2; O2SAT 97
[2023-04-11] MEDS: Budesonide/Formoterol 80/4.5 6.9 GM 60 PUFF INH IH ×2 (08:03→22:23)
[2023-04-11] MEDS: Polyethylene Glycol 3350 17 GM PACKET PO (08:12)
[2023-04-11] MEDS: buPROPion-XL 150 MG TABCR 300 MG PO (08:12)
[2023-04-11] MEDS: QUEtiapine 50 MG TAB 100 MG PO (08:14)
[2023-04-11] MEDS: LORazepam 1 MG TAB PO ×3 (08:31→20:52)
[2023-04-11] MEDS: prednisoLONE SOD PHOS. Soln. 3 MG/ML 40 MG PO (08:32)
[2023-04-11] MEDS: Nicotine 14 MG/24 HR PATCH TD (12:10)
[2023-04-11] MEDS: Levalbuterol 1.25 MG/3 ML UPD VIAL UPD (12:49)
[2023-04-11] MEDS: LORazepam 1 MG TAB 2 MG PO (12:49)
[2023-04-11] MEDS: Benztropine 1 MG TAB PO (20:52)
[2023-04-11] MEDS: diphenhydrAMINE Elixir 25 MG/10 ML CUP PO (20:52)
[2023-04-12 07:40] VITALS: O2SAT 99
[2023-04-12] MEDS: Budesonide/Formoterol 80/4.5 6.9 GM 60 PUFF INH IH ×2 (07:41→22:50)
[2023-04-12] MEDS: Polyethylene Glycol 3350 17 GM PACKET PO (07:57)
[2023-04-12] MEDS: Haloperidol 5 MG TAB PO ×2 (07:58→16:46)
[2023-04-12] MEDS: prednisoLONE SOD PHOS. Soln. 3 MG/ML 40 MG PO (07:58)
[2023-04-12] MEDS: buPROPion-XL 150 MG TABCR 300 MG PO (07:58)
[2023-04-12] MEDS: LORazepam 1 MG TAB PO ×3 (07:58→22:45)
[2023-04-12] MEDS: QUEtiapine 50 MG TAB 100 MG PO (07:58)
[2023-04-12] MEDS: Nicotine 14 MG/24 HR PATCH TD (11:48)
[2023-04-12] MEDS: LORazepam 1 MG TAB 2 MG PO ×2 (11:48→18:40)
[2023-04-12] MEDS: Senna TAB 1 TAB PO (13:29)
[2023-04-12 14:25] VITALS: BP 103/61; PULSE 105; RESP 23; TEMP 37.3; O2SAT 93
[2023-04-12] MEDS: diphenhydrAMINE Elixir 25 MG/10 ML CUP PO (18:40)
[2023-04-12] MEDS: Benztropine 1 MG TAB PO (22:45)
[2023-04-13] MEDS: Budesonide/Formoterol 80/4.5 6.9 GM 60 PUFF INH IH ×2 (07:48→19:54)
[2023-04-13] MEDS: LORazepam 1 MG TAB PO ×3 (09:46→19:54)
[2023-04-13] MEDS: Polyethylene Glycol 3350 17 GM PACKET PO (09:46)
[2023-04-13] MEDS: QUEtiapine 50 MG TAB 100 MG PO (09:47)
[2023-04-13] MEDS: buPROPion-XL 150 MG TABCR 300 MG PO (09:47)
[2023-04-13] MEDS: Acetaminophen Solution 650 MG/20.3 ML CUP PO (09:58)
[2023-04-13] MEDS: prednisoLONE SOD PHOS. Soln. 3 MG/ML 40 MG PO (09:59)
[2023-04-13 11:27] VITALS: BP 100/68; PULSE 101; RESP 24; TEMP 36.8; O2SAT 96
[2023-04-13] MEDS: Mylanta Suspension 30 ML CUP PO (11:38)
[2023-04-13] MEDS: Nicotine 14 MG/24 HR PATCH TD (11:39)
[2023-04-13] MEDS: Calcium Carbonate *TUMS* 500 MG CHEW PO (12:45)
[2023-04-13 13:07] VITALS: PULSE 114; RESP 20; O2SAT 94
[2023-04-13] MEDS: Levalbuterol 1.25 MG/3 ML UPD VIAL UPD (13:07)
[2023-04-13] MEDS: fentaNYL 100 MCG PATCH TD (16:24)
[2023-04-14] MEDS: LORazepam 1 MG TAB PO ×2 (08:02→14:16)
[2023-04-14] MEDS: QUEtiapine 50 MG TAB 100 MG PO (08:03)
[2023-04-14 08:04] VITALS: RESP 8
[2023-04-14] MEDS: Ipratropium 0.5 MG/2.5 ML UPD VIAL UPD ×2 (08:04→17:42)
[2023-04-14] MEDS: buPROPion-XL 150 MG TABCR 300 MG PO (08:04)
[2023-04-14] MEDS: prednisoLONE SOD PHOS. Soln. 3 MG/ML 40 MG PO (08:13)
[2023-04-14] MEDS: Budesonide/Formoterol 80/4.5 6.9 GM 60 PUFF INH IH ×2 (08:36→19:36)
[2023-04-14] MEDS: LORazepam 1 MG TAB 2 MG PO ×2 (10:07→17:42)
[2023-04-14 12:30] VITALS: BP 110/72; PULSE 96; RESP 20; TEMP 36.9; O2SAT 95
[2023-04-14] MEDS: Nicotine 14 MG/24 HR PATCH TD (13:12)
[2023-04-14 13:14] VITALS: RESP 8
[2023-04-14] MEDS: Levalbuterol 1.25 MG/3 ML UPD VIAL UPD (13:14)
[2023-04-14] MEDS: Haloperidol 5 MG TAB PO (15:22)
--- NOTE | 2023-04-14 16:58 | CMACTNOTE_ITS ---
Date of service: 04/14/23 Time of Service: 16:58 Care Management Activity Note Activity Note Text Activity Note Text: CM has offered William activities, but he is not expressing interest in watching TV, puzzle books, adult coloring books, playing cards or other activities. He has increased confusion and agitation and requires a 1:1 sitter and PRN medications. CM will continue to encourage William to engage in activities for life enrichment during his prolonged stay at [facility].
--- NOTE | 2023-04-14 16:59 | PDOC.CMPRO ---
Date of service: 04/14/23 Time of Service: 16:59 Care Management Progress Note Progress Note Text Progress Note Text: S/O: William was sitting up in his chair when CM met with him. Per report he has been increasingly confused and agitated, requiring 1:1 sitter and Haldol, PRN. Updated Clinicals are sent to the [facility]. Per Palliative, if William was able to discharge to the [facility] he could always return to hospital when a medical event occurs because he has a pacemaker. CM has outreached to the [facility] twice, and is awaiting a return call. CM reached out to Palliative to see if additional SNF referrals should be sent? William is followed closely by PC, PCP, [facility] and [facility], however local SNF placement is limited. William does not have LTM, his application was denied, [facility] MANAGER is supporting this process. CM will continue to follow. A: William is a 57 year old male admitted to SWB at [facility] on 03/02/23. P: William remains on SWB, now level two, due to him not being safe to discharge home, and no accepting facility for SNF. [facility] application was denied, [facility] is following. He will remain at [facility] until he is able to transition to a SNF for penitentiary care. CM will continue to follow.
--- NOTE | 2023-04-14 18:37 | W.PM.PROGNOT ---
Date of Service Date of service: 04/14/23 Time of Service: 18:38 Assessment and Plan Assessment and plan (1) Mass of gastroesophageal junction: Status: Acute Assessment and plan: pain managed with fentanyl patch, will titrate as needed, current 100 mcg. continue oral morphine for break through pain or respiratory symptoms Pain is controlled. His respiratory status has been stable. (2) Confusion: Status: Acute Assessment and plan: William is confused at baseline. He has been in the hospital since January 07. He is progressively more confused, anxious and now agitated. He is getting Quetiapine 100 mg in the morning and 450 mg at 1700h. He has lorazepam 2 mg TID scheduled and 2 mg PRN . He continues to take Burpropion 300 mg daily. He has started to have increased agitation and experiencing possible hospital psychosis in setting of being hospitalized since December. He is not violent, however he is becoming resistant to care and showing defiance. He has PTSD and paranoia at baseline. He has had a couple of instances that he required haloperidol and diphenhydramine to calm him. He tends to escalate and then not want to interact, spins around the room, confused about the toilet v the trash bucket, for example and is difficult to redirect. We do not have psychiatry currently available to us. William would benefit from a psychiatric evaluation and recommendations to help him with his PTSD, anxiety and agitation. Evaluation and treatment would benefit him considerably, he has a terminal diagnosis, and this would help maxiimize psychologically the time he has remaining. (3) PTSD (post-traumatic stress disorder): Status: Acute Assessment and plan: continue home meds continue to provide emotional support and assistance when needed. (4) Discharge planning issues: Status: Acute Assessment and plan: Referrals out for placement Exam Narrative Exam Narrative: General: ill appearing male, pale, NAD; comfortable; sitting in bedside chair upon arrival, pale HEENT: normocephalic, atraumatic, hearing WNL Resp: respiration within patient's normal limits; able to speak full sentences, limited to 1-2 sentences; no audible wheeze, prolonged expiration phase; difficulty reapplying NC tubing, grunting w/NC not in place after 3 mins Ext: moves all 4 extremities; no pedal edema, non-tender to palpation, DP pulse 2+ Neuro: unable to stand steady, sits immediately; awake and alert Psych: cooperative/agreeable, speech clear; affect anxious; thought content w/delusional thinking, paranoia; insight and judgment limited; fidgety, jumps when people walk by door, describes seeing black spot on floor where there is only white tile; restless; avoid eye content Objective Last Vital Signs Temp 36.9 C 04/14/23 12:30 Pulse 96 H 04/14/23 12:30 Resp 20 04/14/23 12:30 BP 110/72 04/14/23 12:30 Pulse Ox 95 04/14/23 12:30 Time Spent with Patient Time Spent with Patient: 25-34 minutes Time was spent: referring, communicating with other health career technical supervisor, counseling the patient and care coordination
[2023-04-14] MEDS: diphenhydrAMINE 50 MG/ML VIAL IM (18:48)
[2023-04-14] MEDS: Haloperidol 5 MG/ML VIAL 10 MG IM (18:48)
[2023-04-14] MEDS: LORazepam 2 MG/ML VIAL IM (18:48)
[2023-04-15 04:16] VITALS: PULSE 84; RESP 18; RESP 5; RESP 8; O2SAT 98
[2023-04-15] MEDS: Ipratropium 0.5 MG/2.5 ML UPD VIAL UPD (04:16)
[2023-04-15 04:28] VITALS: BP 116/78; PULSE 84; RESP 18; TEMP 36.6; O2SAT 98
[2023-04-15] MEDS: Budesonide/Formoterol 80/4.5 6.9 GM 60 PUFF INH IH ×2 (08:15→19:26)
[2023-04-15] MEDS: LORazepam 1 MG TAB PO ×3 (10:02→20:22)
[2023-04-15] MEDS: QUEtiapine 50 MG TAB 100 MG PO (10:02)
[2023-04-15] MEDS: prednisoLONE SOD PHOS. Soln. 3 MG/ML 40 MG PO (10:03)
[2023-04-15 11:11] VITALS: BP 100/64; PULSE 89; RESP 12; TEMP 36.6; O2SAT 95
[2023-04-15] MEDS: Nicotine 14 MG/24 HR PATCH TD (14:04)
[2023-04-15] MEDS: LORazepam 1 MG TAB 2 MG PO (15:26)
[2023-04-15] MEDS: Calcium Carbonate *TUMS* 500 MG CHEW PO (16:18)
[2023-04-16] MEDS: QUEtiapine 50 MG TAB 100 MG PO (07:14)
[2023-04-16] MEDS: LORazepam 1 MG TAB PO ×2 (07:14→08:40)
[2023-04-16] MEDS: buPROPion-XL 150 MG TABCR 300 MG PO (07:15)
[2023-04-16 07:24] VITALS: BP 108/67; PULSE 85; RESP 20; TEMP 36.8; O2SAT 95
[2023-04-16 07:44] VITALS: O2SAT 98
[2023-04-16] MEDS: Budesonide/Formoterol 80/4.5 6.9 GM 60 PUFF INH IH ×2 (07:45→19:31)
--- NOTE | 2023-04-16 07:45 | RESPIRATORY ---
RT found patient with SpO2 98% on 4L O2. Goal SpO2 88-92% for COPD protocol. Pt is a CO2 retainer. RT will titrate down to appropriate level. Lungs are diminished, no PRN bronchodilator treatment is indicated at this time. With HR 127, suspect anxiety component.
[2023-04-16 07:48] VITALS: O2SAT 92
[2023-04-16] MEDS: prednisoLONE SOD PHOS. Soln. 3 MG/ML 40 MG PO (08:41)
[2023-04-16 12:23] VITALS: RESP 22; RESP 4; RESP 7; O2SAT 92
[2023-04-16] MEDS: Levalbuterol 1.25 MG/3 ML UPD VIAL UPD (12:23)
[2023-04-16 12:24] VITALS: RESP 2; RESP 22; RESP 4; RESP 7; O2SAT 93
[2023-04-16] MEDS: Nicotine 14 MG/24 HR PATCH TD (12:24)
[2023-04-16] MEDS: Ipratropium 0.5 MG/2.5 ML UPD VIAL UPD (12:24)
--- NOTE | 2023-04-16 12:59 | NUR.NOTE ---
has a visitor at bedside. pt was initially hesitant and aggressive about visitor, however, metal milling machine operator was able to settle pt and explain calmly who the visitor was. pt accepted visitor and is calmly sitting and communication. pt still presents with confusion
[2023-04-16] MEDS: LORazepam 1 MG TAB 2 MG PO ×2 (13:09→20:04)
[2023-04-16] MEDS: Haloperidol 5 MG TAB PO (13:10)
--- NOTE | 2023-04-16 14:03 | NUR.NOTE ---
pt has increased agitation, walking in room stumbling. pt is difficult to re orient. snack provided. pt more calm
[2023-04-16] MEDS: fentaNYL 100 MCG PATCH TD (14:52)
[2023-04-17] MEDS: LORazepam 1 MG TAB 2 MG PO ×5 (04:02→20:44)
[2023-04-17 08:14] VITALS: O2SAT 88
[2023-04-17] MEDS: Budesonide/Formoterol 80/4.5 6.9 GM 60 PUFF INH IH ×2 (08:15→20:42)
[2023-04-17] MEDS: prednisoLONE SOD PHOS. Soln. 3 MG/ML 40 MG PO (08:33)
[2023-04-17] MEDS: buPROPion-XL 150 MG TABCR 300 MG PO (08:34)
[2023-04-17] MEDS: QUEtiapine 50 MG TAB 100 MG PO (08:34)
[2023-04-17] MEDS: Polyethylene Glycol 3350 17 GM PACKET PO (08:35)
[2023-04-17 08:39] VITALS: BP 94/66; PULSE 110; RESP 22; TEMP 37.1; O2SAT 93
--- NOTE | 2023-04-17 08:47 | NUR.NOTE ---
notified charge nurse naag christianson, and secretary office clerk that pt was very unstable this am wtih this rn having to catch pt as he ambulated and lost his balance. pt is difficult to redirect. medications were given for anxiety. pt is now eating breakfast and sitting in chair. chair alarm is on
[2023-04-17 10:34] VITALS: RESP 22; RESP 3; RESP 7
[2023-04-17] MEDS: Ipratropium 0.5 MG/2.5 ML UPD VIAL UPD (10:34)
[2023-04-17 10:35] VITALS: RESP 2; RESP 22; RESP 3
[2023-04-17] MEDS: Levalbuterol 1.25 MG/3 ML UPD VIAL UPD (10:35)
[2023-04-17] MEDS: Nicotine 14 MG/24 HR PATCH TD (11:04)
--- NOTE | 2023-04-17 17:07 | NUR.NOTE ---
missing cartridge from nicotrol was found by dietary in pt melted ice cream from lunch. will ask pharmacy for replacement.
[2023-04-17 17:53] VITALS: RESP 12
--- NOTE | 2023-04-17 18:03 | NUR.NOTE ---
patient is verbally requesting breathing treatments or inhaler to assist with his acute labored breathing. RT is at bedside and is stating that he was saying that he did not want a breathing tx or inhaler at this time. this RN noted to RT that breathing tx does help pt with his acute episodes of labored breathing. pt continues to request breathing tx/inhaler to assist with labored breathing. pt is currently sitting in chair, not moving with labored breath
[2023-04-18] MEDS: Budesonide/Formoterol 80/4.5 6.9 GM 60 PUFF INH IH (08:00)
[2023-04-18 08:05] VITALS: O2SAT 93
[2023-04-18] MEDS: Polyethylene Glycol 3350 17 GM PACKET PO (08:28)
[2023-04-18] MEDS: QUEtiapine 50 MG TAB 100 MG PO (08:29)
[2023-04-18] MEDS: buPROPion-XL 150 MG TABCR 300 MG PO (08:29)
[2023-04-18] MEDS: LORazepam 1 MG TAB 2 MG PO ×3 (08:30→19:45)
[2023-04-18] MEDS: prednisoLONE SOD PHOS. Soln. 3 MG/ML 40 MG PO (08:31)
[2023-04-18 09:48] VITALS: BP 119/77; PULSE 103; RESP 20; TEMP 36.9; O2SAT 86
[2023-04-18] MEDS: Nicotine 14 MG/24 HR PATCH TD (12:39)
[2023-04-18 18:12] VITALS: O2SAT 96
--- NOTE | 2023-04-18 18:22 | RESPIRATORY ---
Paged by med/surg to come assess patient and give breathing treatment. Patient in chair with eyes closed upon entry into room on 3L NC, SpO2 96%, RR 20, HR 108. O2 flow titrated to 2L. Bilateral BS diminished and coarse (clears with coughing) with audible secretions in upper airway heard from doorway. Acapella device given to patient to perform x 10 reps (patient needs reminder how to properly use device). Patient has strong, loose, productive cough. No bronchodilator indicated at this time. Spoke with the nurse and she had advised patient continues to take O2 off and had increased WOB/SOB but recovers quickly once patient compliant with placing NC back on. Nursing made aware that O2 now at 2L and ACT performed at this time.
[2023-04-18] MEDS: diphenhydrAMINE Elixir 25 MG/10 ML CUP PO (20:35)
[2023-04-18] MEDS: Haloperidol 5 MG TAB PO (20:35)
[2023-04-18 21:40] VITALS: BP 121/81; PULSE 105; RESP 22; TEMP 37.3; O2SAT 92
[2023-04-19] MEDS: Budesonide/Formoterol 80/4.5 6.9 GM 60 PUFF INH IH ×2 (07:56→19:34)
[2023-04-19 07:57] VITALS: BP 129/84; PULSE 108; RESP 22; TEMP 36.9; O2SAT 90
[2023-04-19] MEDS: Polyethylene Glycol 3350 17 GM PACKET PO (08:08)
[2023-04-19] MEDS: LORazepam 1 MG TAB 2 MG PO (08:09)
[2023-04-19] MEDS: buPROPion-XL 150 MG TABCR 300 MG PO (08:09)
[2023-04-19] MEDS: prednisoLONE SOD PHOS. Soln. 3 MG/ML 40 MG PO (08:09)
[2023-04-19] MEDS: QUEtiapine 50 MG TAB 100 MG PO (08:10)
--- NOTE | 2023-04-19 08:14 | PGE_ITS ---
Date of Service Date of service: 04/19/23 Time of Service: 08:14 Assessment and Plan Assessment and plan (1) Anxiety with depression: Status: Acute Assessment and plan: We talked for some time. Again it was impressive that he was able to calm himself down. When we talked about me cutting his hair he understood that I would have to touch him (something that he is very reluctant to have anyone do) he admitted that he would like to have his haircut. He also stated that he would like his front hairs to be out of his eyes. We talked about styles of haircuts. Again he agreed to it but as I was attempting to start he had to go to the bathroom. Unfortunately this took up most of the time allotted for his visit. I did explain to him that I be happy to come back at any time and cut his hair. I think the fact that he was willing to agree to this shows some progress He has been on Ativan 2 mg 3 times a day. This can be stimulating at times. I would suggest switching over to diazepam 10 mg 3 times a day. He states that he cannot remember ever being on diazepam or having a bad reaction to it. Shanique will be back next week. It might be a better day for us to cut his hair when she can be there also. Regardless I am happy to come back at any time to cut his hair. It shows great progress to allow this (2) COPD exacerbation: Status: Acute (3) Mass of gastroesophageal junction: Status: Acute Subjective Subjective Interval history since last seen: William is a 57-year-old man who has been hospitalized for over 40 days. He has severe PTSD and anxiety and is nonfunctional at home. He does have a mass at the GE junction and cardiomyopathy with an EF of 20 to 25%. Normally he is a patient of Shanique Thornton NP who is out of town this week. I was asked to see William in Shanique's absence. He did greet me and immediately had a panic attack. He was able to calm himself down after about 3 to 6 minutes. We talked about how he was feeling and doing. I did speak to staff about him. They feel that he is suffering and that we are not addressing his suffering. His breathing is labored. At times when he is about to fall they will react to help him and out of his PTSD will hit, not purposefully but just in panic. Placement has not been found but they are working on a possible [facility]. Exam Narrative Exam Narrative: It was quite impressive how William was able to calm himself down if given time. He did make eye contact a couple of times and did request to have the blinds raised. The sun was not shining but it was bright outside. Overall he accepted my presence. I did talk to him about what is he would want i.e. would he like an haircut for me. He replied yes Objective Last Vital Signs Temp 98.4 F 04/19/23 07:57 Pulse 108 H 04/19/23 07:57 Resp 22 04/19/23 07:57 BP 129/84 04/19/23 07:57 Pulse Ox 90 L 04/19/23 07:57 Time Spent with Patient Time Spent with Patient: 25-34 minutes Time was spent: preparing to see the patient(eg.review tests), obtaining and/or reviewing separately otained hiistory, referring, communicating with other health child day care provider, counseling the patient and care coordination
[2023-04-19] MEDS: Haloperidol 5 MG TAB PO (09:10)
[2023-04-19] MEDS: Nicotine 14 MG/24 HR PATCH TD (12:26)
[2023-04-19] MEDS: diazePAM 5 MG TAB 10 MG PO ×2 (13:47→19:39)
[2023-04-19] MEDS: fentaNYL 100 MCG PATCH TD (17:21)
--- NOTE | 2023-04-20 06:18 | RESPIRATORY ---
Paged by med/surg to give breathing treatment. Entered pt's room he was resting comfortably on 3L NC, SpO2 97%, RR 20, HR 94 O2 flow titrated to 2L SpO2 (91-94) HR 98 RR 20. Bilateral BS (posterior/anterior) diminished and coarse, pt has audible secretions in upper airway that can be cleared through cough. Pt is sleeping and unable to fully use acapella at this time. Pt has no indication for bronchodilator at this time. Will inform RN.
[2023-04-20] MEDS: Polyethylene Glycol 3350 17 GM PACKET PO (07:21)
[2023-04-20] MEDS: prednisoLONE SOD PHOS. Soln. 3 MG/ML 40 MG PO (07:21)
[2023-04-20] MEDS: buPROPion-XL 150 MG TABCR 300 MG PO (07:22)
[2023-04-20] MEDS: diazePAM 5 MG TAB 10 MG PO ×3 (07:22→19:53)
[2023-04-20] MEDS: QUEtiapine 100 MG TAB 200 MG PO (07:31)
[2023-04-20] MEDS: Budesonide/Formoterol 80/4.5 6.9 GM 60 PUFF INH IH ×2 (07:41→19:40)
[2023-04-20 07:48] VITALS: BP 109/64; PULSE 112; RESP 19; TEMP 36; O2SAT 94
[2023-04-20] MEDS: Nicotine 14 MG/24 HR PATCH TD (12:17)
[2023-04-21] MEDS: Budesonide/Formoterol 80/4.5 6.9 GM 60 PUFF INH IH ×2 (07:24→19:44)
[2023-04-21 07:26] VITALS: O2SAT 94
[2023-04-21] MEDS: prednisoLONE SOD PHOS. Soln. 3 MG/ML 40 MG PO (08:15)
[2023-04-21] MEDS: Polyethylene Glycol 3350 17 GM PACKET PO (08:16)
[2023-04-21] MEDS: diazePAM 5 MG TAB 10 MG PO ×2 (08:16→19:54)
[2023-04-21] MEDS: QUEtiapine 100 MG TAB 200 MG PO (08:17)
[2023-04-21] MEDS: buPROPion-XL 150 MG TABCR 300 MG PO (08:17)
[2023-04-21 09:41] VITALS: BP 108/64; PULSE 68; RESP 20; TEMP 36.7; O2SAT 94
[2023-04-21] MEDS: Nicotine 14 MG/24 HR PATCH TD (12:02)
[2023-04-21] MEDS: Levalbuterol 1.25 MG/3 ML UPD VIAL UPD (12:27)
[2023-04-21] MEDS: LORazepam 2 MG/ML VIAL 1 MG IM (12:34)
[2023-04-21] MEDS: diphenhydrAMINE 50 MG/ML VIAL IM (12:34)
[2023-04-21] MEDS: Haloperidol 5 MG/ML VIAL 4 MG IM (12:34)
--- NOTE | 2023-04-21 12:59 | NUR.NOTE ---
This sports book writer entered room 227 for administration of a 10ml PO morphine. the patient in 227 refused assistance with administration and grabbed the oral syringe of said medication. the nurse and charge nurse worked together to get the pt to hand over the syringe because most of the medication was waisted on the floor. the pt set the syringe with medication on the end of the chair. the RN grabbed the syringe and the pt headed after this nurse with a pencil running to catch up to this sports book writer. a code belem was called. the pt then defecated and urinated on the floor in the hallway. an OTHER SPORTS OFFICIAL got the pt into his room and back into bed. the morphine medication was waisted in the med waste. ursing Note:
[2023-04-22] MEDS: Budesonide/Formoterol 80/4.5 6.9 GM 60 PUFF INH IH ×2 (08:15→20:15)
[2023-04-22 08:17] VITALS: O2SAT 95
[2023-04-22] MEDS: prednisoLONE SOD PHOS. Soln. 3 MG/ML 40 MG PO (08:33)
[2023-04-22] MEDS: QUEtiapine 100 MG TAB 200 MG PO (08:33)
[2023-04-22] MEDS: buPROPion-XL 150 MG TABCR 300 MG PO (08:33)
[2023-04-22] MEDS: diazePAM 5 MG TAB 10 MG PO ×3 (08:33→20:08)
[2023-04-22] MEDS: Polyethylene Glycol 3350 17 GM PACKET PO (08:33)
[2023-04-22] MEDS: Nicotine 14 MG/24 HR PATCH TD (11:48)
[2023-04-22] MEDS: fentaNYL 100 MCG PATCH TD (11:49)
[2023-04-22] MEDS: fentaNYL 25 MCG PATCH TD (11:49)
[2023-04-22 14:11] VITALS: BP 106/74; PULSE 108; RESP 24; TEMP 37.2; O2SAT 94
--- NOTE | 2023-04-22 16:34 | CMPROGNOTE_ITS ---
Date of service: 04/22/23 Time of Service: 16:34 Care Management Progress Note Progress Note Text Progress Note Text: S/O: William was sitting on the side of the bed when CM met with him. He is accompanied by a 1:1 sitter, and does not engage in conversation with this magnetic tape typewriter operator. He continues to have increased confusion, agitation and frequent panic attacks. Per [facility], William is not a candidate for their facility due to his medical complexity. William continues to be followed closely by Palliative, PCP, [facility] and [facility], and SNF placement at this time is limited to the [facility]. CM sent updated clinicals to the [facility] and contacted [facility] with no return call.? William does not have LTM, his application was denied, [facility] is supporting this process. CM will continue to follow. ? A: William is a 57 year old male admitted to SWB at [facility] on 03/02/23. P: William remains on SWB, now level two, due to him not being safe to discharge home, and no accepting facility for SNF. shelter [facility] application was denied, [facility] is following. He will remain at [facility] until he is able to transition to a SNF for residential care. CM will continue to follow.
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
--- NOTE | 2023-04-22 16:34 | PDOC.CMPRO ---
Date of service: 04/22/23 Time of Service: 16:34 Care Management Progress Note Progress Note Text Progress Note Text: S/O: William was sitting on the side of the bed when CM met with him. He is accompanied by a 1:1 sitter, and does not engage in conversation with this feature writer. He continues to have increased confusion, agitation and frequent panic attacks. Per [facility], William is not a candidate for their facility due to his medical complexity. William continues to be followed closely by Palliative, PCP, REGISTERED DIETETIC TECHNICIAN and [facility], and SNF placement at this time is limited to the [facility]. CM sent updated clinicals to the [facility] and contacted [facility] with no return call.? William does not have LTM, his application was denied, REGISTERED DIETETIC TECHNICIAN is supporting this process. CM will continue to follow. ? A: William is a 57 year old male admitted to SWB at [facility] on 03/02/23. P: William remains on SWB, now level two, due to him not being safe to discharge home, and no accepting facility for SNF. [facility] application was denied, REGISTERED DIETETIC TECHNICIAN is following. He will remain at [facility] until he is able to transition to a SNF for skilled nursing care. CM will continue to follow.
[2023-04-22] MEDS: diphenhydrAMINE Elixir 25 MG/10 ML CUP PO (17:58)
[2023-04-22 18:31] VITALS: PULSE 108; RESP 16; RESP 8; O2SAT 95
[2023-04-22] MEDS: Levalbuterol 1.25 MG/3 ML UPD VIAL UPD (18:31)
[2023-04-22 18:44] VITALS: PULSE 108; RESP 16; RESP 2; RESP 7; RESP 8; O2SAT 93
[2023-04-22 18:51] VITALS: O2SAT 93
[2023-04-22] MEDS: Senna TAB 1 TAB PO (20:11)
[2023-04-22 23:07] VITALS: O2SAT 88
[2023-04-23 00:02] VITALS: O2SAT 91
[2023-04-23 06:20] VITALS: BP 101/68; PULSE 89; RESP 20; TEMP 36.3; O2SAT 91
[2023-04-23] MEDS: prednisoLONE SOD PHOS. Soln. 3 MG/ML 40 MG PO (09:00)
[2023-04-23] MEDS: buPROPion-XL 150 MG TABCR 300 MG PO (09:00)
[2023-04-23] MEDS: QUEtiapine 100 MG TAB 200 MG PO (09:01)
[2023-04-23] MEDS: diazePAM 5 MG TAB 10 MG PO (09:01)
[2023-04-23] MEDS: Budesonide/Formoterol 80/4.5 6.9 GM 60 PUFF INH IH ×2 (09:09→20:04)
[2023-04-23 09:13] VITALS: O2SAT 97
[2023-04-23] MEDS: Nicotine 14 MG/24 HR PATCH TD (11:54)
--- NOTE | 2023-04-23 15:49 | PDOC.CMACT ---
Date of service: 04/23/23 Time of Service: 15:49 Care Management Activity Note Activity Note Text Activity Note Text: CM has offered William activities, but he is not expressing interest in watching TV, puzzle books, adult coloring books, playing cards or other activities. He often sits on the side of his bed or in his chair and ambulates in his room. He continues to have increased confusion, agitation and frequent panic attacks. Per provider, he is able to calm himself down at times which is improvement. He requires a 1:1 sitter and PRN medications.? CM will continue to encourage William to engage in activities for life enrichment during his prolonged stay at [facility].
--- NOTE | 2023-04-23 16:28 | NUR.NOTE ---
Attempted to wake pt in order to take scheduled PO meds. Unable to wake pt, even through a reposition in bed. Hands bilat w/bluish tint, but warm to the touch. Breathing slow, non-labored. VS-WNL. O2 turned down to 2L/min based on orders that O2sats should be kept b/w 88-92% and pt was at 95%. supervisor of guidance and testing, INSURANCE PROCESSOR, and CC aware.
[2023-04-23 16:31] VITALS: BP 113/68; PULSE 75; RESP 14; TEMP 37.1; O2SAT 95
[2023-04-23 19:25] VITALS: BP 119/79; PULSE 86; RESP 12; TEMP 36.5; O2SAT 91
[2023-04-23] MEDS: Senna TAB 1 TAB PO (19:50)
[2023-04-24] MEDS: diazePAM 5 MG TAB 10 MG PO ×2 (08:42→13:29)
[2023-04-24] MEDS: buPROPion-XL 150 MG TABCR 300 MG PO (08:43)
[2023-04-24] MEDS: Polyethylene Glycol 3350 17 GM PACKET PO (08:43)
[2023-04-24] MEDS: QUEtiapine 100 MG TAB 200 MG PO (08:44)
[2023-04-24] MEDS: Budesonide/Formoterol 80/4.5 6.9 GM 60 PUFF INH IH ×2 (08:50→19:23)
[2023-04-24 09:00] VITALS: O2SAT 97
[2023-04-24] MEDS: prednisoLONE SOD PHOS. Soln. 3 MG/ML 40 MG PO (09:31)
[2023-04-24] MEDS: Nicotine 14 MG/24 HR PATCH TD (11:15)
[2023-04-24 11:48] VITALS: BP 114/76; PULSE 107; RESP 20; TEMP 36.5; O2SAT 91
[2023-04-24] MEDS: Levalbuterol 1.25 MG/3 ML UPD VIAL UPD (22:10)
[2023-04-24] MEDS: diphenhydrAMINE Elixir 25 MG/10 ML CUP PO (23:23)
[2023-04-25] MEDS: Haloperidol 5 MG TAB PO ×2 (00:50→19:57)
--- NOTE | 2023-04-25 06:56 | NUR.NOTE ---
Nursing Note: Patient is sleeping on his right side, I am sitting outside the room. Will continue to monitor.
[2023-04-25 08:00] VITALS: BP 114/76; PULSE 107; RESP 20; TEMP 36.5; O2SAT 91; O2SAT 94
[2023-04-25] MEDS: buPROPion-XL 150 MG TABCR 300 MG PO (08:33)
[2023-04-25] MEDS: diazePAM 5 MG TAB 10 MG PO ×3 (08:33→19:57)
[2023-04-25] MEDS: prednisoLONE SOD PHOS. Soln. 3 MG/ML 40 MG PO (08:34)
[2023-04-25] MEDS: Polyethylene Glycol 3350 17 GM PACKET PO (08:34)
[2023-04-25] MEDS: QUEtiapine 100 MG TAB 200 MG PO (08:35)
[2023-04-25] MEDS: Budesonide/Formoterol 80/4.5 6.9 GM 60 PUFF INH IH ×2 (09:40→21:00)
[2023-04-25] MEDS: Nicotine 14 MG/24 HR PATCH TD (11:08)
[2023-04-25] MEDS: fentaNYL 100 MCG PATCH TD (11:08)
[2023-04-25] MEDS: fentaNYL 25 MCG PATCH TD ×2 (11:08→15:53)
[2023-04-25] MEDS: Lidocaine 2% Viscous 15 ML CUP PO (12:36)
--- NOTE | 2023-04-25 12:43 | NUR.NOTE ---
Patient has had C/o chest & throat discomfort. States the pain is in his chest & radiates to his left arm. Meds were given & charge machine operator was notified. Will continue to monitor. Nursing Note:
--- NOTE | 2023-04-26 08:07 | W.PALPGNOTE ---
Date of service: 04/26/23 Time of Service: 08:07 Assessment and Plan Assessment and plan (1) Disoriented: Status: Acute (2) Anxiety with depression: Status: Acute (3) PTSD (post-traumatic stress disorder): Status: Acute (4) Nonischemic dilated cardiomyopathy: Status: Acute Assessment and plan: The staff is doing a wonderful job trying to deal with William's mental illness. His anxiety and agitation are hampering him from being placed. [facility] has declined an admission to them. Presently no other facility will take him. Unfortunately this leaves the only option to be the hospital. Care management is doing a great job trying to entertain him and give him outlets. He is being seen regularly by Jocy Gonzalez NP and all of the hospital staff on the hospitalist team are doing great. This is a very difficult case. I would recommend that as much time outside is possible be done this is difficult with the rainy weather. Subjective Subjective Interval history since last seen: Staff relates that he has been having more problems with agitation and anxiety. He had a one-on-one with him for several days this last week. They stated that he was up more than half the night (till about 2 AM) because of agitation, going into other peoples rooms etc. He is sleeping presently Exam Narrative Exam Narrative: William is sleeping presently I did not wake him up as he has had a very short night due to his agitation. He is breathing normally. He does not appear to be in pain. Objective Last Vital Signs Temp 97.7 F 04/25/23 08:00 Pulse 107 H 04/25/23 08:00 Resp 20 04/25/23 08:00 BP 114/76 04/25/23 08:00 Pulse Ox 94 04/25/23 08:00
[2023-04-26 08:55] VITALS: O2SAT 98
[2023-04-26] MEDS: Budesonide/Formoterol 80/4.5 6.9 GM 60 PUFF INH IH (08:55)
[2023-04-26] MEDS: Polyethylene Glycol 3350 17 GM PACKET PO (11:09)
[2023-04-26] MEDS: prednisoLONE SOD PHOS. Soln. 3 MG/ML 40 MG PO (11:09)
[2023-04-26] MEDS: diazePAM 5 MG TAB 10 MG PO ×2 (11:10→15:18)
[2023-04-26] MEDS: buPROPion-XL 150 MG TABCR 300 MG PO (11:11)
[2023-04-26] MEDS: QUEtiapine 100 MG TAB 200 MG PO (11:11)
[2023-04-26] MEDS: Nicotine 14 MG/24 HR PATCH TD (11:50)
[2023-04-26 17:44] VITALS: O2SAT 95
[2023-04-27] MEDS: Haloperidol 5 MG TAB PO (02:59)
[2023-04-27] MEDS: Levalbuterol 1.25 MG/3 ML UPD VIAL UPD (02:59)
[2023-04-27] MEDS: Budesonide/Formoterol 80/4.5 6.9 GM 60 PUFF INH IH ×2 (08:07→21:12)
[2023-04-27] MEDS: Polyethylene Glycol 3350 17 GM PACKET PO (09:04)
[2023-04-27] MEDS: QUEtiapine 100 MG TAB 200 MG PO (09:05)
[2023-04-27] MEDS: buPROPion-XL 150 MG TABCR 300 MG PO (09:05)
[2023-04-27] MEDS: diazePAM 5 MG TAB 10 MG PO ×3 (09:05→21:12)
[2023-04-27] MEDS: prednisoLONE SOD PHOS. Soln. 3 MG/ML 40 MG PO (09:11)
[2023-04-27 09:14] VITALS: BP 112/72; PULSE 101; RESP 20; TEMP 37.3; O2SAT 90
[2023-04-27] MEDS: Nicotine 14 MG/24 HR PATCH TD (11:31)
[2023-04-27] MEDS: Scopolamine 1 MG/3 DAYS PATCH TD (16:36)
[2023-04-27 16:53] VITALS: O2SAT 92
[2023-04-28] MEDS: Polyethylene Glycol 3350 17 GM PACKET PO (08:39)
[2023-04-28] MEDS: diazePAM 5 MG TAB 10 MG PO ×3 (08:39→19:55)
[2023-04-28] MEDS: prednisoLONE SOD PHOS. Soln. 3 MG/ML 40 MG PO (08:40)
[2023-04-28] MEDS: buPROPion-XL 150 MG TABCR 300 MG PO (08:40)
[2023-04-28] MEDS: QUEtiapine 100 MG TAB 200 MG PO (08:40)
[2023-04-28] MEDS: Budesonide/Formoterol 80/4.5 6.9 GM 60 PUFF INH IH ×2 (09:13→19:24)
[2023-04-28 09:19] VITALS: O2SAT 92
--- NOTE | 2023-04-28 10:41 | PDOC.CMPRO ---
Date of service: 04/28/23 Time of Service: 10:41 Care Management Progress Note Progress Note Text Progress Note Text: S/O: William was resting comfortably when CM attempted to meet with him twice today. Per report, he has been requiring more care, 1-2 assist, and has complained of some pain/SOB. Shanique, Palliative care, met with him today, and stated that he appears comfortable, and she communicated with staff that his goals are to remain comfortable. There is a team meeting regarding William later today to discuss his case. CHEMICAL DEPENDENCY COUNSELOR is being encouraged to appeal [facility] decision to deny his application for computer terminal operator [facility], as he is currently in self pay status, and will likely not be accepted at another facility without a payer source. CM will continue to follow. A: William is a 57 year old male admitted to SWB at [facility] on 03/02/23. P: William remains on SWB, now level two, due to him not being safe to discharge home, and no accepting facility for SNF. [facility] application was denied, CHEMICAL DEPENDENCY COUNSELOR is following. He will remain at [facility] until he is able to transition to a SNF for computer terminal operator care. CM will continue to follow.
--- NOTE | 2023-04-28 10:42 | PDOC.CMACT ---
Date of service: 04/28/23 Time of Service: 10:42 Care Management Activity Note Activity Note Text Activity Note Text: CM has offered William activities, but he is not expressing interest in watching TV, puzzle books, adult coloring books, playing cards or other activities. He often sits on the side of his bed or in his chair and ambulates in his room. He continues to have increased confusion, agitation and frequent panic attacks. Per provider, he is able to calm himself down at times which is improvement. He benefits from a 1:1 sitter when available, and requires PRN medications to keep him comfortable.? CM will continue to encourage William to engage in activities for life enrichment during his prolonged stay at [facility].
[2023-04-28] MEDS: Nicotine 14 MG/24 HR PATCH TD (12:16)
[2023-04-28] MEDS: fentaNYL 50 MCG PATCH TD (12:17)
[2023-04-28] MEDS: fentaNYL 100 MCG PATCH TD (12:17)
--- NOTE | 2023-04-28 16:07 | W.PALPGNOTE ---
Date of service: 04/28/23 Time of Service: 12:45 Assessment and Plan Assessment and plan (1) Pain: Status: Acute (2) Anxiety with depression: Status: Acute (3) Deficit of personal bathing and hygiene: Status: Acute (4) PTSD (post-traumatic stress disorder): Status: Acute (5) Nonischemic dilated cardiomyopathy: Status: Acute (6) Agoraphobia: Status: Acute (7) Shortness of breath on exertion: Status: Acute (8) Under care of mental health team: Status: Acute (9) Esophageal cancer: Status: Acute (10) Ambulatory dysfunction: Status: Chronic (11) Oxygen dependent: Status: Acute (12) PTSD (post-traumatic stress disorder): (13) Goals of care, counseling/discussion: Status: Acute (14) Palliative care encounter: Status: Acute Assessment and plan: William has appeared to decline since previous visits with palliative care, increased weakness resulting in increase transfer assistance, allowed assistance with hygiene, including catheterization, increased sleeping with less wakeful periods, decreased ambulation/appetite/engagement; Reviewed medication list with nurses, all comfort measure medicines are in place that are needed at this time, all current providers are aware of William's status and focus on comfort care versus life-sustaining treatments and futility decisions, nebulizer saline solution to be tried for comfort as needed, reassess with respiratory if DuoNeb may be more appropriate in future based on comfort goals; please see previous PC notes for more recommendations on William's comfort/care Team Meeting 04/28/23: no FAMILY DINNER SERVICE SPECIALIST presence/updates; Toña continues to visit weekly, has noticed decline in engagement, appears comfortable, more dissociation?; CM sent out referrals to local SNFs, no responses, continues to not have a payer source so would likely not be accepted anywhere The staff continue to provide William with excellent, supportive and thoughtful care. Please attempt to have outdoor time as much as possible offered PC to f/u for hair cut this week Subjective Subjective Interval history since last seen: Per staff: Has had increased weakness requiring 1-2 person assist; increased sleeping, slept most of the day yesterday; has requested that people sit w/him more; decreased eating, continues to tolerate sips of fluid and soft foods. Over the weekend had increased breathing and pain complaints, seem to be more managed today, scopolamine patch applied over the weekend with good effect on secretions. Pain seems to be tolerable, continues with morphine 10 mg every 2 scheduled, with as needed dose available as needed, fentanyl patch up to 150 mcg with good effect - staff concerned that he does not have access to comfort measure style of care: William requests his nebulizer to help him breath more comfortably, per RT he does not need the neb; nursing staff worked w/team today to have saline nebs so when he requests this they have something to give him, seems to help w/psychological support and comfort Exam Narrative Exam Narrative: General: ill appearing male, pale, NAD; comfortable; pale; elevated HOB, sleeping w/fork in hand, lunch on tray in front on arrival; limited engagement w/conversations HEENT: normocephalic, atraumatic Resp: respiration within patient's normal limits; limited to 1-2 sentences; no audible wheeze, prolonged expiration phase; Ext: radial pulse 2+ LUE Psych: cooperative/agreeable, speech clear; insight and judgment limited; eyes track people when people walk by door; avoids eye contact Objective Last Vital Signs Temp 99.1 F 04/27/23 09:14 Pulse 101 H 04/27/23 09:14 Resp 20 04/27/23 09:14 BP 112/72 04/27/23 09:14 Pulse Ox 92 04/28/23 09:19
[2023-04-28 19:23] VITALS: O2SAT 81
[2023-04-28 19:25] VITALS: O2SAT 95
[2023-04-29] MEDS: QUEtiapine 100 MG TAB 200 MG PO (08:25)
[2023-04-29] MEDS: diazePAM 5 MG TAB 10 MG PO ×3 (08:25→19:40)
[2023-04-29] MEDS: Polyethylene Glycol 3350 17 GM PACKET PO (08:25)
[2023-04-29] MEDS: prednisoLONE SOD PHOS. Soln. 3 MG/ML 40 MG PO (08:26)
[2023-04-29] MEDS: buPROPion-XL 150 MG TABCR 300 MG PO (08:26)
[2023-04-29 08:34] VITALS: BP 127/89; PULSE 109; RESP 20; TEMP 37; O2SAT 88
[2023-04-29] MEDS: Budesonide/Formoterol 80/4.5 6.9 GM 60 PUFF INH IH ×2 (09:09→19:29)
[2023-04-29] MEDS: Nicotine 14 MG/24 HR PATCH TD (12:18)
[2023-04-30 06:10] VITALS: BP 115/66; PULSE 106; RESP 20; TEMP 36.6; O2SAT 92
[2023-04-30] MEDS: prednisoLONE SOD PHOS. Soln. 3 MG/ML 40 MG PO (07:38)
[2023-04-30] MEDS: Polyethylene Glycol 3350 17 GM PACKET PO (07:39)
[2023-04-30] MEDS: buPROPion-XL 150 MG TABCR 300 MG PO (07:39)
[2023-04-30] MEDS: QUEtiapine 100 MG TAB 200 MG PO (07:39)
[2023-04-30] MEDS: diazePAM 5 MG TAB 10 MG PO ×3 (07:40→19:51)
[2023-04-30 07:46] VITALS: O2SAT 92
[2023-04-30] MEDS: Budesonide/Formoterol 80/4.5 6.9 GM 60 PUFF INH IH ×2 (07:46→19:57)
[2023-04-30] MEDS: Nicotine 14 MG/24 HR PATCH TD (11:22)
[2023-04-30 12:17] VITALS: BP 97/68; PULSE 90; RESP 16; TEMP 36.7; O2SAT 92
[2023-04-30] MEDS: Scopolamine 1 MG/3 DAYS PATCH TD (15:58)
[2023-05-01] MEDS: Budesonide/Formoterol 80/4.5 6.9 GM 60 PUFF INH IH ×2 (08:29→19:40)
[2023-05-01] MEDS: prednisoLONE SOD PHOS. Soln. 3 MG/ML 40 MG PO (09:40)
[2023-05-01] MEDS: buPROPion-XL 150 MG TABCR 300 MG PO (09:41)
[2023-05-01] MEDS: QUEtiapine 100 MG TAB 200 MG PO (09:41)
[2023-05-01] MEDS: diazePAM 5 MG TAB 10 MG PO ×2 (09:42→20:48)
[2023-05-01] MEDS: Polyethylene Glycol 3350 17 GM PACKET PO (09:43)
[2023-05-01] MEDS: Nicotine 14 MG/24 HR PATCH TD (13:05)
[2023-05-01] MEDS: fentaNYL 100 MCG PATCH TD (13:05)
[2023-05-01] MEDS: fentaNYL 50 MCG PATCH TD (13:06)
[2023-05-01 17:35] VITALS: O2SAT 93
--- NOTE | 2023-05-02 05:57 | NUR.NOTE ---
PT SLEPT MOST OF THE SHIFT.HE WAS COOPERATIVE AND TOOK HIS MEDS AT HS. PT REMOVED HIS 4LITERS OF O2 VIA N/C AND WAS PLAYING WITH THE TUBING. STAFF TRIED TO REAPPLY THE O2 AND HE BECAME ANGRY BACK OFF. OFFERED FLUIDS,SNACK AND MORPHINE FOR HIS BREATHING. HE SWUNG AT THE STAFF, SPILLING THE MORPHINE. HE DID AGREE TO REAPPLY THE O2 WHICH WAS OFF FOR SEVERAL MINUTES.MOTTLING NOTED ON BOTH KNEES AND NOSE. CURRENTLY SITTING ON THE SIDE OF BED, HOLDING HIS KEYS. BED ALARM ON. GET OUT.CN MADE AWARE
[2023-05-02] MEDS: Budesonide/Formoterol 80/4.5 6.9 GM 60 PUFF INH IH ×2 (07:58→19:54)
[2023-05-02] MEDS: diazePAM 5 MG TAB 10 MG PO ×3 (09:26→19:54)
[2023-05-02] MEDS: buPROPion-XL 150 MG TABCR 300 MG PO (09:28)
[2023-05-02] MEDS: Polyethylene Glycol 3350 17 GM PACKET PO (09:31)
[2023-05-02] MEDS: Nicotine 14 MG/24 HR PATCH TD (11:20)
[2023-05-02 15:29] VITALS: BP 110/75; PULSE 110; RESP 24; TEMP 36.8; O2SAT 88
--- NOTE | 2023-05-02 21:40 | NUR.NOTE ---
Nursing Note: notified clinical coordinator JESUS Cook of change in pt status to more somolent. Reports MD aware he is already on palliative care with comfort medications ordered. Instructed to provide comfort medications prn.
[2023-05-02 22:38] VITALS: PULSE 98; O2SAT 96
[2023-05-03 00:51] VITALS: BP 105/71; PULSE 101; RESP 12; TEMP 36.1; O2SAT 94
--- NOTE | 2023-05-03 03:30 | NUR.NOTE ---
Nursing Note: Notified clinical coordinator, JESUS Bustamante of pt difficulty in managing PO liquid morphine dose due to volume. Requested to contact MD for more concentrated dose for buccal administration. CC reports will address on day shift when pharmacy and palliative care are in house.
[2023-05-03] MEDS: Budesonide/Formoterol 80/4.5 6.9 GM 60 PUFF INH IH ×2 (07:49→19:10)
[2023-05-03 07:52] VITALS: O2SAT 85
[2023-05-03 08:00] VITALS: RESP 16
[2023-05-03] MEDS: buPROPion-XL 150 MG TABCR 300 MG PO (08:38)
[2023-05-03] MEDS: QUEtiapine 100 MG TAB 200 MG PO (08:39)
[2023-05-03] MEDS: prednisoLONE SOD PHOS. Soln. 3 MG/ML 40 MG PO (08:39)
[2023-05-03] MEDS: diazePAM 5 MG TAB 10 MG PO ×3 (08:39→19:39)
[2023-05-03] MEDS: Polyethylene Glycol 3350 17 GM PACKET PO (08:39)
[2023-05-03] MEDS: Nicotine 14 MG/24 HR PATCH TD (11:49)
[2023-05-03] MEDS: Scopolamine 1 MG/3 DAYS PATCH TD (16:14)
[2023-05-03] MEDS: Haloperidol 5 MG TAB PO (18:42)
[2023-05-03] MEDS: diphenhydrAMINE Elixir 25 MG/10 ML CUP PO (19:39)
[2023-05-03 20:30] VITALS: PULSE 88; RESP 24; TEMP 37; O2SAT 89
--- NOTE | 2023-05-03 20:30 | NUR.NOTE ---
Nursing Note: Pt has buildup of secretions after attempting PO meds. Coughing with loose cough and inability to clear throat; constant rattle. Discussed pt plan of care with clinical coordinator, JESUS Zuleta. Instructed to maintain pt comfort and she will notify MD of increase in difficulty managing secretions with PO medications.
--- NOTE | 2023-05-04 00:05 | NUR.NOTE ---
Nursing Note: Discussed pt status of increasing somnolence, inability to manage secretions, labored respirations, and poorly controlled pain with clinical coordinator JESUS Briscoe. was notified by CC. New order for buccal morphine concentrate.
[2023-05-04] MEDS: MORPHine Oral Concentrate 20 MG/ML 10 MG PO (01:45)
--- NOTE | 2023-05-04 01:47 | NUR.NOTE ---
Nursing Note: Administered morphine concentrate per MAR via buccal route after pharmacy entry and verification. Pt had delayed harsh cough with increase in secretions. Notified CC. provided new order for IV placement with IV morphine.
[2023-05-04] MEDS: MORPHine 4 MG/ML SYR IVP ×7 (02:25→05:20)
[2023-05-04] MEDS: diazePAM 10 MG/2 ML SYR 5 MG IVP ×3 (04:04→11:02)
[2023-05-04] MEDS: Glycopyrrolate 0.2 MG/1 ML VIAL IVP ×4 (04:08→14:15)
[2023-05-04 04:30] VITALS: PULSE 125; RESP 30; TEMP 39.1; O2SAT 79
--- NOTE | 2023-05-04 05:08 | NUR.NOTE ---
Nursing Note: pt has exhibited s/s of increased pain/ distress. Tx with prn morphine q 30 min (see MAR), but pt is still groaning, grimacing, gasping, and moaning with shuddering breaths. Pt also has new tachycardia that has worsened over the past couple hours. Notified CC who has paged
[2023-05-04 05:50] VITALS: TEMP 39.1
[2023-05-04] MEDS: MORPHine 4 MG/ML SYR 8 MG IVP ×3 (05:50→06:59)
[2023-05-04] MEDS: Haloperidol 5 MG/ML VIAL IM (06:26)
[2023-05-04 08:00] VITALS: BP 104/62; PULSE 108; RESP 26; TEMP 39.1; O2SAT 87; O2SAT 88
[2023-05-04 09:01] VITALS: TEMP 39.2
[2023-05-04] MEDS: ACETAMINOPHEN 1,000 MG/100 ML BTL 400 MG IVPB ×2 (09:01→14:56)
[2023-05-04] MEDS: HYDROmorphone 2 MG/ML SYR 1 MG IVP (10:13)
[2023-05-04] MEDS: LORazepam 2 MG/ML VIAL IVP (12:43)
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
--- NOTE | 2023-05-04 13:13 | CMPROGNOTE_ITS ---
Date of service: 05/04/23 Time of Service: 13:13 Care Management Progress Note Progress Note Text Progress Note Text: William will transition to inpatient status for end of life care, per provider he was started on a dilaudid drip today. Britt Lozoya from [employer]USTOMER RELATIONS ADVIS[employer] requested an update, CM emailed her with the information above.
[2023-05-04] MEDS: Normal Saline Flush 10 ML SYR IVP (14:15)
[2023-05-04 14:56] VITALS: TEMP 39.2
--- NOTE | 2023-05-04 16:39 | NUR.NOTE ---
Spoke with revenue audit clerk, was informed it was okay to admin IV acetaminophen in place of rectal dosage to patient for elevated temp of 39.2 c. Medication was admin, patient tolerated medication well. Will continue to monitor. Nursing Note:
== END 2023-05-04 17:50 | disposition swing bed (61) | DRG 951 ==
PROVIDERS: Family Medicine; Nurse Practitioner Family; Admitting Provider Nurse Practitioner Acute Care; PCP Nurse Practitioner Family; Visit Provider Nurse Practitioner Acute Care
DX: Z78.9 Other specified health status (principal); C15.5 Malignant neoplasm of lower third of esophagus; C79.9 Secondary malignant neoplasm of unspecified site; J44.1 Chronic obstructive pulmonary disease with (acute) exacerbation; I42.0 Dilated cardiomyopathy; I50.42 Chronic combined systolic (congestive) and diastolic (congestive) heart failure; R44.3 Hallucinations, unspecified; R41.0 Disorientation, unspecified; F43.10 Post-traumatic stress disorder, unspecified; R13.10 Dysphagia, unspecified; Z87.891 Personal history of nicotine dependence; F40.00 Agoraphobia, unspecified; Z95.810 Presence of automatic (implantable) cardiac defibrillator; Z99.81 Dependence on supplemental oxygen; J44.9 Chronic obstructive pulmonary disease, unspecified; R26.2 Difficulty in walking, not elsewhere classified; R63.4 Abnormal weight loss; Z68.25 Body mass index [BMI] 25.0-25.9, adult; R06.81 Apnea, not elsewhere classified; F10.11 Alcohol abuse, in remission; Z60.4 Social exclusion and rejection; Z63.8 Other specified problems related to primary support group; N28.9 Disorder of kidney and ureter, unspecified; R91.1 Solitary pulmonary nodule; F32.A Depression, unspecified; N40.0 Benign prostatic hyperplasia without lower urinary tract symptoms; E11.9 Type 2 diabetes mellitus without complications; G89.4 Chronic pain syndrome; R79.1 Abnormal coagulation profile; E78.5 Hyperlipidemia, unspecified; I44.7 Left bundle-branch block, unspecified; I95.1 Orthostatic hypotension; R06.02 Shortness of breath; Z66 Do not resuscitate
CPT/HCPCS: 36415; 80053; 85027; 94640; 97110; 97116; 97162; 99306; 99309; 99316; J1650; 83735; 85025; 94664; 94668; 94760; J0131; J1170; J1200; J1630; J2060; J2270; J3360; J3490; J7614; J7620; J7644

== ENCOUNTER 2023-05-04 17:17 | Inpatient (IN) | payer MEDICARE, SELFPAY ==
--- NOTE | 2023-05-04 17:55 | NUR.NOTE ---
Patient has been switched over from swing bed to in patient. Nursing Note:
[2023-05-04] MEDS: LORazepam 2 MG/ML VIAL 1 MG IV/SC ×5 (19:22→23:35)
[2023-05-04] MEDS: Glycopyrrolate 0.2 MG/1 ML VIAL IVP (19:22)
[2023-05-04] MEDS: Normal Saline Flush 10 ML SYR IVP ×5 (19:38→23:37)
[2023-05-04 20:45] VITALS: PULSE 130; RESP 33; TEMP 41.3; O2SAT 79
[2023-05-04] MEDS: Acetaminophen 650 MG SUPP PR (20:45)
[2023-05-04 21:45] VITALS: TEMP 39.7
[2023-05-04 21:50] VITALS: PULSE 134; RESP 24; TEMP 40.1; O2SAT 80
[2023-05-05] MEDS: LORazepam 2 MG/ML VIAL 1 MG IV/SC ×3 (01:49→05:37)
[2023-05-05] MEDS: Normal Saline Flush 10 ML SYR IVP ×3 (01:49→09:07)
[2023-05-05 03:00] VITALS: PULSE 118; RESP 14; TEMP 40.1; O2SAT 87
[2023-05-05 03:12] VITALS: TEMP 40.5
[2023-05-05] MEDS: ACETAMINOPHEN 1,000 MG/100 ML BTL 400 MG IVPB (03:12)
[2023-05-05] MEDS: Glycopyrrolate 0.2 MG/1 ML VIAL IVP ×2 (05:43→08:34)
[2023-05-05 08:00] VITALS: TEMP 39.2
[2023-05-05 08:44] VITALS: TEMP 39.4
--- NOTE | 2023-05-05 13:16 | W.PM.DDS ---
Date of service: 05/05/23 Time of Service: 09:00 Discharge Plan Disposition Patient Disposition: Discharge Details Reason For Visit: Esophageal mass Admit Date/Time: 05/04/23 17:17 Admit Provider: Rodrigo Cruz Attending Provider: Rodrigo Cruz Primary Care Provider: Lorrie Crespo Hospital Course Hospital Course: This was a 57-year-old man who has been hospitalized for over 40 days.? He has history of severe PTSD and anxiety and is nonfunctional at home.? He had a mass at the GE junction and cardiomyopathy with an EF of 20 to 25%. He did not want further work up for his esophageal mass, nor did he was a feeding tube placed. He unfortunately would not agree to DNR status despite not wanting feeding tube and wanting comfort measures. His case was discussed with his inpatient and outpatient care teams and the ethics committee and ultimately a futility DNR was placed. Case management was following and decision was made to keep him here for end of life care. He received comfort care with good symptom management, adjusting as needed. Ultimately today he . pronounced by DR Cruz. Home Meds and New Rx's Prescriptions: No Action naloxone 4 mg/actuation spray,non-aerosol 4 mg intranasal Q2M PRN Rx Instructions: spray 1 dose into ONE nostril; alternate nostrils w each dose until help arrives sennosides [senna] 8.6 mg tablet 8.6 mg PO BID PRN (Reason: constipation) Qty: 60 5RF Patient Comments: not on med list calcium carbonate [Tums] 200 mg calcium (500 mg) tablet,chewable 200 mg PO Q2H WHILE AWAKE PRN (Reason: dyspepsia) Qty: 90 1RF Patient Comments: not on med list morphine concentrate 100 mg/5 mL (20 mg/mL) solution 10 mg PO Q2H PRN MDD 800mg PRN (Reason: pain) Qty: 500 0RF Rx Instructions: for air hunger ipratropium-albuterol 0.5 mg-3 mg(2.5 mg base)/3 mL solution for nebulization 3 ml INHALATION Q6H PRN PRN (Reason: shortness of breath or wheezing) Qty: 180 3RF ondansetron 4 mg tablet,disintegrating 4 mg PO BID Qty: 30 4RF Patient Comments: not on med list pravastatin 20 mg tablet 20 mg PO QHS Qty: 10 0RF montelukast 10 mg Tablet 10 mg PO DAILY acetaminophen [Tylenol] 325 mg Capsule 325 mg PO DAILY PRN budesonide-formoterol [Symbicort] 80-4.5 mcg/actuation Hfa Aerosol Inhaler 2 puff INHALATION BID Patient Comments: not on med list bupropion HCl 300 mg tablet extended release 24 hr 300 mg PO DAILY Patient Comments: Take 1 tablet by mouth once a day tamsulosin 0.4 mg capsule 0.4 mg PO HS Patient Comments: 1 tab daily morphine 10 mg/5 mL Solution 7.5 mg PO Q3H PRN PRN (Reason: pain) Qty: 0 0RF quetiapine 50 mg tablet 50 mg PO DAILY Qty: 30 0RF polyethylene glycol 3350 17 gram powder in packet 17 g PO BID PRN albuterol sulfate [ProAir HFA] 90 mcg/actuation Hfa Aerosol Inhaler 2 puff INHALATION Q4H WHILE AWAKE PRN Rx Instructions: Q4-6H PRN nitroglycerin 0.3 mg Tablet, Sublingual 0.3 mg SUBLINGUAL Q5-15M PRN Rx Instructions: do not exceed 3 doses per episode benztropine 1 mg Tablet 1 mg PO QHS Patient Comments: not on med list quetiapine [Seroquel XR] 400 mg tablet extended release 24 hr 400 mg PO HS Rx Instructions: total dose 450 mg quetiapine [Seroquel XR] 50 mg tablet extended release 24 hr 50 mg PO HS Patient Comments: not on med list Rx Instructions: total dose 450 mg lorazepam 1 mg Tablet 1 mg PO TID esomeprazole magnesium [address] For Susp In Packet 40 mg PO BID fentanyl 75 mcg/hr Patch 72 Hour 1 patch TRANSDERMAL Q72H prednisolone sodium phosphate 15 mg/5 mL (3 mg/mL) Solution 40 mg PO DAILY Discharge Data Discharge Date/Time-TO BE ENTERED AT DEPARTURE: 05/05/23 09:10 Discharge Comment: Discharge Sum: Summary Date and Time Admission Date: 02/17/2307/11/23 17:17
== END 2023-05-05 09:10 | disposition expired | DRG 392 ==
PROVIDERS: Admitting Provider Family Medicine; PCP Nurse Practitioner Family; Visit Provider Family Medicine
DX: K22.89 Other specified disease of esophagus (principal); I42.9 Cardiomyopathy, unspecified; Z51.5 Encounter for palliative care; F41.9 Anxiety disorder, unspecified; F43.10 Post-traumatic stress disorder, unspecified; Z66 Do not resuscitate
CPT/HCPCS: J0131; J2060